=== PATIENT | male | born 1940 | race Caucasian/White ===

== ENCOUNTER 2020-11-25 13:29 | Inpatient (IN) | payer MEDICARE, OTHER, SELFPAY ==
[2020-11-25 14:33] VITALS: BP 120/71; PULSE 94; RESP 16; TEMP 36.7; O2SAT 100; BMI 19.8
--- NOTE | 2020-11-25 15:23 | PC.NURSE ---
Report received. Pt in bathroom at current, giving urine sample. Calm and cooperative.
[2020-11-25 15:46] LABS: Glucose Urine UA NEG (NEG); Leukocyte Esterase Urine NEG (NEG); Nitrite Urine NEG (NEG); Specific Gravity - Urine 1.025 (1.005-1.025); Urine Blood NEG (NEG); Urine Ketones NEG (NEG); Urine Protein NEG (NEG-TRACE)
[2020-11-25 15:49] LABS: Appearance Urine CLEAR; Color Urine YELLOW
--- NOTE | 2020-11-25 15:56 | ED.PSYCH ---
HPI - Psych General Chief Complaint: Psychiatric Symptoms Stated Complaint: crisis Time Seen by Provider: 11/25/20 15:12 Source: patient Mode of arrival: ambulatory Limitations: no limitations History of Present Illness HPI Narrative: Patient presents to ED for direct admit to [facility] for depression. states patient has been more depressed and anxious. denies patient having suicidal ideation. states patient is compliant with his psych meds. Related Data Home Medications Medication Instructions Recorded Confirmed docusate sodium [Stool Softener] 1 cap PO BID PRN 11/25/20 11/25/20 lorazepam 1 tab PO BID PRN 11/25/20 11/25/20 lurasidone [Latuda] 1 tab PO DAILY 11/25/20 11/25/20 mirtazapine 1 tab PO BEDTIME 11/25/20 11/25/20 nintedanib [Ofev] 150 mg PO BID 11/25/20 11/25/20 ondansetron 1 tab PO Q8H PRN 11/25/20 11/25/20 quetiapine 37.5 mg PO BEDTIME 11/25/20 11/25/20 Allergies Allergy/AdvReac Type Severity Reaction Status Date / Time Sulfa (Sulfonamide Allergy Unknown UNKNOWN Unverified 05/28/20 19:34 Antibiotics) [SULFA (SULFONAMIDE ANTIBIOTICS)] Review of Systems Review of Systems: Yes all other systems are reviewed and are negative Constitutional: Constitutional: Reports as per HPI and Reports no additional constitutional complaints Eyes: Eyes: Reports as per HPI and Reports no additional eye complaints ENT: Reports system reviewed and no additional complaints, except as documented and Reports as per HPI Cardiovascular: Cardiovascular: Reports as per HPI and Reports no additional cardiovascular complaints Respiratory: Respiratory: Reports as per HPI and Reports no additional respiratory complaints Gastrointestinal: Gastrointestinal: Reports as per HPI and Reports no additional gastrointestinal complaints Genitourinary: Genitourinary: Reports no additional male genitourinary complaints and Reports as per HPI Musculoskeletal: Musculoskeletal: Reports no additional musculoskeletal complaints and Reports as per HPI Neurologic: Reports system reviewed and no additional complaints, except as documented and Reports as per HPI Psychiatric: Psychiatric: Reports no additional psychiatric complaints and Reports as per HPI PMF Past Medical History Medical History (Updated 11/25/20 @ 20:35 by HENOK Velasco) Anemia Anxiety Bronchiectasis Cerebrovascular disease CHF (congestive heart failure) Chronic hyponatremia CKD (chronic kidney disease) stage 3, GFR 30-59 ml/min Degenerative arthritis Depression History of electroconvulsive therapy Hx of bladder cancer Hydrocele Pulmonary fibrosis Social History Social History Household Members: Spouse Housing: Apartment Do you presently have visiting nurse or other home services: Yes Smoking Status: Never smoker Second Hand Smoke Exposure: No Use of substances other than those prescribed or required for medical reasons: No Substance Use Type: Marijuana Substance Use Type Other:: Medicinal marijuana approximately six months ago. Last Used Substance Other:: Six months ago. Currently Displaying Signs/Symptoms of Drug Intoxication Withdrawal: No Any prior treatment program specific to substance use: No Have you been hit, kicked, punched, or otherwise hurt by someone within the past year? If so, by whom?: No Do you feel safe in your current relationship?: Yes Is there a partner from a previous relationship who is making you feel unsafe now?: No Are you made to feel afraid or neglected: No Advance Directives: Yes Advance Directives Information Provided: Yes Advance Directives on File: No Do you have thoughts of harming others: None Do you have a plan to hurt others: No Plan Recently lost weight without trying: Yes Physical Exam Vital Signs: Vital Signs: Last Vital Signs Temp 97.7 F 11/25/20 21:16 Pulse 71 11/25/20 21:16 Resp 17 11/25/20 21:16 BP 124/71 11/25/20 21:16 Pulse Ox 97 11/25/20 21:16 Body Mass Index 19.8 Const: General: cooperative, healthy appearing, comfortable, no acute distress, well developed, alert, awake and Physically active Orientation/consciousness: patient oriented x3 HENMT: Head: Yes normal to inspection, Yes No palpable skull fracture present, Yes normocephalic, Yes atraumatic and No abrasion Eyes: General: appearance normal, both eyes and all related structures Neck: Neck: Yes normal visual inspection, Yes full ROM, Yes no lymphadenopathy, Yes no meningeal signs, Yes trachea midline, Yes supple and No tender Chest: Chest palpation & inspection: normal inspection of the chest and normal palpation of entire chest wall Resp: Effort & Inspection: normal respiratory effort and able to speak in complete sentences Auscultation: clear to auscultation bilaterally Cardio: Jugular venous distension: no JVD Heart sounds: S1 normal heart sound present and S2 normal heart sound present GI: Inspection: Yes normal to inspection and No abdominal wall ecchymosis Palpation (GI): Soft to palpation, not firm, nontender, no guarding and not rigid : General: Yes CVA tenderness and Yes no CVA tenderness Back/Spine/Pelvis: Back: no CVA tenderness, CVA tenderness and No back tenderness Skin: General skin exam: no rashes or lesions noted and elasticity normal Neuro: General: patient oriented x3, no meningeal signs and CN's II-XI intact bilaterally Cranial nerves: Yes CN's II-XII intact bilaterally Extrem: General: Yes normal to inspection and Yes full ROM Psych: Other: Patient is depressed. Appearance: grossly normal, well kempt and not disheveled Course Course Course Narrative: Patient sleeping comfortably in the bed. Will do labs. Reevaluation(s) Reevaluation #1: Patient EKG negative for pain to indicate severe hyperkalemia. Potassium 5.3 but creatinine is normal. Most likely lab error. With Dr. Morin who agrees potassium 5.3 does not need to be treated due to normal creatinine. Patient to be accepted to psychiatry. EKG normal sinus Time: 22:01 [facility] - Psych Lab Data Result diagrams: 11/25/20 15:43 11/25/20 15:42 Labs: Lab Results 11/25/20 11/25/20 11/25/20 Range/Units 15:35 15:42 15:42 WBC (4.8-10.8) X10*3/uL RBC (4.60-5.80) X10*6/uL Hgb (14.0-18.0) g/dl Hct (42-52) % MCV (80-98) fL MCH (27.0-33.0) pg MCHC (31.0-36.0) g/dl RDW (11.0-16.0) % Plt Count (160-400) X10*3/uL MPV (9.4-12.4) fL Immature Gran % (Auto) (0.0-0.4) % Neut % (Auto) (45-73) % Lymph % (Auto) (20-40) % [place] % (Auto) (2-11) % Eos % (Auto) (0-4) % Baso % (Auto) (0-2) % Lymph # (Auto) (1.2-4.9) X10*3/uL [place] # (Auto) (0.1-1.2) X10*3/uL Eos # (Auto) (0.0-0.4) X10*3/uL Baso # (Auto) (0.0-0.2) X10*3/uL Abs Immat Gran (auto) (0.00-0.03) X10*3/uL Absolute Neuts (auto) (2.0-8.3) X10*3/uL Absolute Nucleated RBC (0.0-0.012) X10*3/uL Nucleated RBC % (auto) (0.0-0.2) /100WBC Sodium 133 L (135-145) mmol/L Potassium 5.3 H (3.3-5.1) mmol/L Chloride 99 (96-108) mmol/L Carbon Dioxide 26 (22-29) mmol/L Anion Gap 13 (12-20) BUN 29 H (9-16) mg/dL Creatinine 1.38 (0.5-1.4) mg/dL Estim Creat Clear Calc 36.2 Estimated GFR 50 Random Glucose 103 (60-115) mg/dL Calcium 9.4 (8.4-10.2) mg/dL Total Bilirubin 0.6 (0.0-1.0) mg/dL Direct Bilirubin 0.2 (0.0-0.5) mg/dL AST 24 (5-37) U/L ALT 16 (0-40) U/L Alkaline Phosphatase 91 (39-117) U/L Total Protein 7.5 (6.5-8.0) g/dL Albumin 3.8 (3.5-5.0) g/dL Urine Color YELLOW Urine Appearance CLEAR Urine pH 6.0 (5.0-8.0) Ur Specific [place] 1.025 (1.005-1.025) Urine Protein NEG (NEG-TRACE) MG/DL Urine Glucose (UA) NEG (NEG) MG/DL Urine Ketones NEG (NEG) MG/DL Urine Blood NEG (NEG) Urine Nitrite NEG (NEG) Ur Leukocyte Esterase NEG (NEG) Ethyl Alcohol < 10 mg/dL COVID-19 ([facility]) (Negative) COVID-19 Clin Com 11/25/20 11/25/20 Range/Units 15:43 16:37 WBC 9.1 (4.8-10.8) X10*3/uL RBC 4.13 L (4.60-5.80) X10*6/uL Hgb 13.1 L (14.0-18.0) g/dl Hct 39.0 L (42-52) % MCV 94.4 (80-98) fL MCH 31.7 (27.0-33.0) pg MCHC 33.6 (31.0-36.0) g/dl RDW 13.9 (11.0-16.0) % Plt Count 211 (160-400) X10*3/uL MPV 11.0 (9.4-12.4) fL Immature Gran % (Auto) 0.3 (0.0-0.4) % Neut % (Auto) 56.1 (45-73) % Lymph % (Auto) 30.1 (20-40) % [place] % (Auto) 9.1 (2-11) % Eos % (Auto) 3.6 (0-4) % Baso % (Auto) 0.8 (0-2) % Lymph # (Auto) 2.7 (1.2-4.9) X10*3/uL [place] # (Auto) 0.8 (0.1-1.2) X10*3/uL Eos # (Auto) 0.3 (0.0-0.4) X10*3/uL Baso # (Auto) 0.1 (0.0-0.2) X10*3/uL Abs Immat Gran (auto) 0.03 (0.00-0.03) X10*3/uL Absolute Neuts (auto) 5.1 (2.0-8.3) X10*3/uL Absolute Nucleated RBC 0.000 (0.0-0.012) X10*3/uL Nucleated RBC % (auto) 0.0 (0.0-0.2) /100WBC Sodium (135-145) mmol/L Potassium (3.3-5.1) mmol/L Chloride (96-108) mmol/L Carbon Dioxide (22-29) mmol/L Anion Gap (12-20) BUN (9-16) mg/dL Creatinine (0.5-1.4) mg/dL Estim Creat Clear Calc Estimated GFR Random Glucose (60-115) mg/dL Calcium (8.4-10.2) mg/dL Total Bilirubin (0.0-1.0) mg/dL Direct Bilirubin (0.0-0.5) mg/dL AST (5-37) U/L ALT (0-40) U/L Alkaline Phosphatase (39-117) U/L Total Protein (6.5-8.0) g/dL Albumin (3.5-5.0) g/dL Urine Color Urine Appearance Urine pH (5.0-8.0) Ur Specific [place] (1.005-1.025) Urine Protein (NEG-TRACE) MG/DL Urine Glucose (UA) (NEG) MG/DL Urine Ketones (NEG) MG/DL Urine Blood (NEG) Urine Nitrite (NEG) Ur Leukocyte Esterase (NEG) Ethyl Alcohol mg/dL COVID-19 ([facility]) Negative (Negative) COVID-19 Clin Com See Note Discharge Plan Discharge Clinical Impression: Bipolar disorder Patient Disposition: Admitted As Inpatient Interventions: Admission Worksheet (ED) Last Done: 11/25/20 21:30 Discharge Date/Time: 11/25/20 21:31
[2020-11-25 16:00] LABS: MANUAL DIFF FLAG NO
[2020-11-25 16:02] LABS: Basophils Absolute Auto 0.1 X10*3/uL (0.0-0.2); Basophils Percent Auto 0.8 % (0-2); Eosinophils Absolute Auto 0.3 X10*3/uL (0.0-0.4); Eosinophils Percent Auto 3.6 % (0-4); Hemoglobin 13.1 g/dl (14.0-18.0); Imm Gran Abs Auto 0.03 X10*3/uL (0.00-0.03); Imm Gran Pct Auto 0.3 % (0.0-0.4); Lymphocytes Absolute Auto 2.7 X10*3/uL (1.2-4.9); Lymphocytes Percent Auto 30.1 % (20-40); Mean Corpuscular HGB Conc 33.6 g/dl (31.0-36.0); Mean Corpuscular Hemoglobin 31.7 pg (27.0-33.0); Mean Corpuscular Volume 94.4 fL (80-98); Monocytes Absolute Auto 0.8 X10*3/uL (0.1-1.2); Monocytes Percent Auto 9.1 % (2-11); Neutrophils Absolute Auto 5.1 X10*3/uL (2.0-8.3); Neutrophils Percent Auto 56.1 % (45-73); Platelet Count 211 X10*3/uL (160-400); Red Blood Count 4.13 X10*6/uL (4.60-5.80); Red Cell Distribution Width 13.9 % (11.0-16.0); White Blood Count 9.1 X10*3/uL (4.8-10.8)
[2020-11-25 16:31] LABS: Ethanol < 10 mg/dL
[2020-11-25 16:35] LABS: Alanine Aminotransferase 16 U/L (0-40); Albumin Level 3.8 g/dL (3.5-5.0); Alkaline Phosphatase 91 U/L (39-117); Anion Gap 13 (12-20); Aspartate Amino Transferase 24 U/L (5-37); Bilirubin Direct 0.2 mg/dL (0.0-0.5); Bilirubin Total 0.6 mg/dL (0.0-1.0); Blood Urea Nitrogen 29 mg/dL (9-16); Calcium 9.4 mg/dL (8.4-10.2); Carbon Dioxide 26 mmol/L (22-29); Chloride 99 mmol/L (96-108); Creatinine Clr Calc Pharmacy 36.2; Estimated Glomerular Filt Rate 50; Glucose Random 103 mg/dL (60-115); Potassium 5.3 mmol/L (3.3-5.1); Sodium 133 mmol/L (135-145); Total Protein 7.5 g/dL (6.5-8.0)
[2020-11-25 17:57] LABS: COVID-19 Test Negative (Negative)
[2020-11-25 18:27] VITALS: BP 106/61; PULSE 71; RESP 16; TEMP 36.9; O2SAT 95
--- NOTE | 2020-11-25 18:51 | ECG_ITS ---
Test Reason : MEDICAL CLEAR Blood Pressure : / mmHG Vent. Rate : 069 BPM Atrial Rate : 069 BPM P-R Int : 168 ms QRS Dur : 090 ms QT Int : 392 ms P-R-T Axes : 050 040 029 degrees QTc Int : 420 ms Normal sinus rhythm Possible Left atrial enlargement Borderline ECG When compared with ECG of 31-OCT-2018 08:14, No significant change was found Referred By: Blane Chowdhury Electronically Signed By:JOSE RAMON DAMON MD
--- NOTE | 2020-11-25 20:37 | PC.NURSE ---
Patient in bed resting quietly, at bedside, m5 admission approved, patient and aware, will continue to monitor.
[2020-11-25 21:16] VITALS: BP 124/71; PULSE 71; RESP 17; TEMP 36.5; O2SAT 97
[2020-11-25] MEDS: QUEtiapine Fumarate 25 MG TABLET 37.5 MG PO ×2 (23:03→23:04)
[2020-11-25] MEDS: Mirtazapine 15 MG TABLET PO (23:04)
[2020-11-25] MEDS: LORazepam 0.5 MG TABLET PO (23:04)
--- NOTE | 2020-11-25 23:10 | PC.ADMIT ---
Sai presented to the ED at [facility] with increased depression, anxiety, hopelessness, and passive suicidal ideation. Pt has a medical history of interstitial fibrosis, which is causing him to have shortness of breath with exertion. He stated that this has limited his activity and contributed to his recent mental health issues. Pt has not been able to attend outpatient ECT due to anxiety and depression. He reports decreased appetite and weight loss of 10 to 15 pounds recently. Pt stated he became dizzy and fell approximately six weeks ago. Pt was able to engage with this commercial real estate underwriter, complete admission paperwork, and take HS medications. He denies active suicidal ideation on the unit at this time.
[2020-11-26 06:05] VITALS: BP 118/67; PULSE 72; RESP 18; TEMP 36.5; O2SAT 94
[2020-11-26 08:24] LABS: Alanine Aminotransferase 17 U/L (0-40); Albumin Level 3.9 g/dL (3.5-5.0); Alkaline Phosphatase 95 U/L (39-117); Anion Gap 11 (12-20); Aspartate Amino Transferase 22 U/L (5-37); Bilirubin Total 0.9 mg/dL (0.0-1.0); Blood Urea Nitrogen 29 mg/dL (9-16); Calcium 9.5 mg/dL (8.4-10.2); Carbon Dioxide 29 mmol/L (22-29); Chloride 98 mmol/L (96-108); Cholesterol 216 mg/dL; Creatinine Clr Calc Pharmacy 33.3; Estimated Glomerular Filt Rate 45; Glucose Fasting 100 mg/dL (60-99); HDL Cholesterol 51 mg/dL; LDL Cholesterol Calculated 148 mg/dl; Potassium 5.1 mmol/L (3.3-5.1); Sodium 133 mmol/L (135-145); Total Protein 7.5 g/dL (6.5-8.0); Triglycerides 87 mg/dL
[2020-11-26 08:47] LABS: Thyroid Stimulating Hormone 2.21 uIU/mL (0.32-4.0)
[2020-11-26] MEDS: Lurasidone HCl 20 MG TABLET 10 MG PO (09:08)
[2020-11-26 10:13] LABS: Vitamin B12 773 pg/mL (200-900)
[2020-11-26 13:00] VITALS: BP 106/59; PULSE 91; TEMP 35.9
--- NOTE | 2020-11-26 14:40 | MHC.CLN ---
RE: CONSULT HT 68 WT 130# IBW 154#+/-10% UBW 144# PT REPORTS 10-15# WT LOSS PHYSICAL THERAPIST CENTER MANAGER ENN: 1800KCALS, 60G PROTEIN, 1800CC WATER LABS: NA133, BUN 29, CREAT 1.5, ALBUMIN WNL MEDS NOTED REMERON IN PLACE -MAY INCREASE APPETITE DIET RX: REGULAR-APPROPRIATE PT REPORTS POOR PO PHYSICAL THERAPIST CENTER MANAGER RECOMMEND STARTING ENSURE TID TO INCREASE KCALS MONITOR PO INTAKE
--- NOTE | 2020-11-26 16:42 | PM.IMCN ---
History of Present Illness Data of Consult Service Date: 11/26/20 Requesting physician: Blane Chowdhury Primary Care Provider: Mary Cyr NP HPI Reason for consult: Evaluation for ECT This is a 80-year-old male with a history of bipolar depression admitted to for ECT. Patient reports receiving ECT in the past without incident. He has no history cardiac disease. He does have a history of ILD and sometime has associated dyspnea with activity. He does not do much activity at home. On admission, labwork was significant for potassium of 5.3. This has improved to 5.1 today, although creatinine has increased to 1.5. Review of Systems Review of Systems: Yes all other systems are reviewed and are negative Constitutional: Constitutional: Denies chills and Denies fever(s) Cardiovascular: Cardiovascular: Denies chest pain Respiratory: Respiratory: Denies cough Gastrointestinal: Gastrointestinal: Denies abdominal pain [facility] Medical History (Updated 11/26/20 @ 16:54 by HENOK Mitchell) Anemia Anxiety Bronchiectasis Cerebrovascular disease CHF (congestive heart failure) Chronic hyponatremia CKD (chronic kidney disease) stage 3, GFR 30-59 ml/min Degenerative arthritis Depression History of electroconvulsive therapy Hx of bladder cancer Hydrocele Pulmonary fibrosis Functional capacity: independent ambulation Family History (Updated 11/26/20 @ 16:50 by HENOK Mitchell) Father Colon cancer Family history: reviewed and not pertinent Surgical History (Updated 11/26/20 @ 16:51 by HENOK Mitchell) History of bladder surgery Social History Household Members: Spouse Housing: Apartment Do you presently have visiting nurse or other home services: Yes Smoking Status: Never smoker Second Hand Smoke Exposure: No Use of substances other than those prescribed or required for medical reasons: No Substance Use Type: Marijuana Substance Use Type Other:: Medicinal marijuana approximately six months ago. Last Used Substance Other:: Six months ago. Currently Displaying Signs/Symptoms of Drug Intoxication Withdrawal: No Any prior treatment program specific to substance use: No Have you been hit, kicked, punched, or otherwise hurt by someone within the past year? If so, by whom?: No Do you feel safe in your current relationship?: Yes Is there a partner from a previous relationship who is making you feel unsafe now?: No Are you made to feel afraid or neglected: No Advance Directives: Yes Advance Directives Information Provided: Yes Advance Directives on File: No Do you have thoughts of harming others: None Do you have a plan to hurt others: No Plan Recently lost weight without trying: Yes service: No Sexual orientation: Straight/Heterosexual Meds Allergies Allergy/AdvReac Type Severity Reaction Status Date / Time Sulfa (Sulfonamide Allergy Unknown UNKNOWN Unverified 05/28/20 19:34 Antibiotics) [SULFA (SULFONAMIDE ANTIBIOTICS)] Active Medications: Current Medications Generic Name Dose Route Start Last Admin Trade Name Freq PRN Reason Stop Dose Admin Acetaminophen 650 mg 11/25/20 22:48 Acetaminophen 325 Mg Tablet PO Q6H PRN Headache/Pain Mild Scale (1-3) Al Hydroxide/Mg Hydroxide 30 ml 11/25/20 22:48 Magnesium Hydrox/Alum Hydrox 30 Ml Oral.Susp PO Q6H PRN Heartburn/Nausea Hydroxyzine HCl 25 mg 11/25/20 22:48 Hydroxyzine Hcl 25 Mg Tablet PO BEDTIME PRN Anxiety Lorazepam 0.5 mg 11/26/20 21:00 11/25/20 23:04 Lorazepam 0.5 Mg Tablet PO 0.5 mg BEDTIME DOMINICK Administration Lorazepam 0.5 mg 11/25/20 22:54 Lorazepam 0.5 Mg Tablet PO DAILY PRN Anxiety Lurasidone HCl 10 mg 11/26/20 09:00 11/26/20 09:08 Lurasidone Hcl 20 Mg Tablet PO 10 mg DAILY DOMINICK Administration Magnesium Hydroxide 30 ml 11/25/20 22:48 Milk Of Magnesia 30 Ml Oral.Susp PO DAILY PRN Constipation Mirtazapine 15 mg 11/25/20 22:48 11/25/20 23:04 Mirtazapine 15 Mg Tablet PO 15 mg BEDTIME DOMINICK Administration Non-Formulary Medication 150 mg 11/25/20 22:48 Nintedanib [Ofev] PO BID DOMINICK Ondansetron HCl 4 mg 11/25/20 22:48 Ondansetron Odt 4 Mg Tab.Rapdis TRANSLINGU Q8H PRN nausea/vomiting Quetiapine Fumarate 37.5 mg 11/25/20 22:48 11/25/20 23:04 Quetiapine Fumarate 25 Mg Tablet PO 37.5 mg BEDTIME DOMINICK Administration Home Medications Medication Instructions Recorded Confirmed Last Taken Type docusate sodium [Stool Softener] 1 cap PO BID PRN 11/25/20 11/25/20 11/25/20 History lorazepam 1 tab PO BID PRN 11/25/20 11/25/20 11/25/20 History lurasidone [Latuda] 1 tab PO DAILY 11/25/20 11/25/20 11/25/20 History mirtazapine 1 tab PO BEDTIME 11/25/20 11/25/20 11/24/20 History nintedanib [Ofev] 150 mg PO BID 11/25/20 11/25/20 11/25/20 History ondansetron 1 tab PO Q8H PRN 11/25/20 11/25/20 Unknown History quetiapine 37.5 mg PO BEDTIME 11/25/20 11/25/20 11/24/20 History Physical Exam Vital Signs and Narrative: Vital Signs: Last Vital Signs Temp 97.7 F 11/26/20 06:05 Pulse 72 11/26/20 06:05 Resp 18 11/26/20 06:05 BP 118/67 11/26/20 06:05 Pulse Ox 94 11/26/20 06:05 Body Mass Index 19.8 Const: Nutritional Appearance: well nourished Orientation/consciousness: patient oriented x3 HENMT: Head: Yes normocephalic and Yes atraumatic Eyes: Sclerae: sclerae normal Chest: Chest palpation & inspection: normal inspection of the chest Resp: Effort & Inspection: normal respiratory effort and no respiratory distress Auscultation: clear to auscultation bilaterally Cardio: Rate: regular rate Rhythm: regular rhythm GI: Palpation (GI): Soft to palpation and nontender Skin: General skin exam: no rashes or lesions noted Neuro: General: patient oriented x3 Cranial nerves: Yes CN's II-XII intact bilaterally and Yes Bilaterally intact EOM present Extrem: General: Yes normal to inspection Results Labs CBC and Chem 7: 11/25/20 15:43 11/26/20 07:42 Labs: Laboratory Results - last 24 hr 11/25/20 11/26/20 11/26/20 16:37 07:42 07:42 Anion Gap 11 L Estim Creat Clear Calc 33.3 Estimated GFR 45 Fasting Glucose 100 H Calcium 9.5 Total Bilirubin 0.9 AST 22 ALT 17 Alkaline Phosphatase 95 Total Protein 7.5 Albumin 3.9 Triglycerides 87 Cholesterol 216 LDL Cholesterol, Calc 148 HDL Cholesterol 51 Vitamin B12 773 TSH 2.21 COVID-19 ([facility]) Negative COVID-19 Clin Com See Note Assessment and Plan (1) CKD (chronic kidney disease) stage 3, GFR 30-59 ml/min: Status: Acute This is a 80 year old male with a history of CKD3, ILD, bipolar depression, bladder tumor s/p resection, admitted to for ECT treatments in the setting of worsening depression. The patient has h/o ILD on nintedanib. denies heart disease, chest pain. has had ECT without issue in the past. EKG without ischemic changes. There is no obvious contraindication to ECT at this time. Thank you for allowing us to participate in the care of this patient. This case was discussed with Dr. Marie.
[2020-11-26] MEDS: LORazepam 0.5 MG TABLET PO ×2 (16:58→20:04)
--- NOTE | 2020-11-26 17:15 | HO.PSYADMNOT ---
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 He is failed multiple treatments including Lamictal Vraylar mirtazapine Wellbutrin became suicidally agitated Depakote Seroquel and Trintellix which cause severe nausea and lack of interest in food. Patient has become increasingly despondent difficulty getting out of bed taking care of his ADLs he was scheduled for outpatient ECT but was unable to get up the energy to do it. He has been having thoughts that he would be better off this is been going on for an extended period of time Past Psychiatric History: History of 3 prior psychiatric hospitalizations the last at [facility] he did have a course of ECT and briefly did maintenance. ECT was quite helpful but the patient had difficulty with side effects of nausea and headache. He has also failed a trial of ketamine Medical Evaluation Reviewed: Hospitalist Criselda Pending Patient with history of pulmonary fibrosis generally stable history of bladder cancer treated with infusions [facility] Medical History (Updated 11/29/20 @ 16:48 by Blane Chowdhury MD) Anemia Anxiety Bronchiectasis Cerebrovascular disease CHF (congestive heart failure) Chronic hyponatremia CKD (chronic kidney disease) stage 3, GFR 30-59 ml/min Degenerative arthritis Depression History of electroconvulsive therapy Hx of bladder cancer Hydrocele Pulmonary fibrosis Pulmonary fibrosis Surgical History History of bladder surgery Family History: Reportedly no history of bipolar disorder Social History: Patient is has children with whom he is close with 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 Substance History: None Trauma History: Trauma of being increasingly isolated and not responding to treatment over the past year Diagnostics Vital Signs (24Hr): Vital Signs - 24 hr 11/25/20 18:27 11/25/20 21:16 11/26/20 06:05 Temperature 98.4 F 97.7 F 97.7 F Pulse Rate 71 71 72 Respiratory Rate 16 17 18 Blood Pressure 106/61 124/71 118/67 Pulse Oximetry 95 97 94 11/26/20 13:00 Temperature 96.7 F L Pulse Rate 91 Respiratory Rate Blood Pressure 106/59 L Pulse Oximetry Body Mass Index 19.8 Labs Results: 11/28/20 14:38 11/28/20 14:38 Labs: Laboratory Results - last 48 hr 11/25/20 11/25/20 11/25/20 15:35 15:42 15:42 WBC RBC Hgb Hct MCV MCH MCHC RDW Plt Count MPV Immature Gran % (Auto) Neut % (Auto) Lymph % (Auto) [place] % (Auto) Eos % (Auto) Baso % (Auto) Lymph # (Auto) [place] # (Auto) Eos # (Auto) Baso # (Auto) Abs Immat Gran (auto) Absolute Neuts (auto) Absolute Nucleated RBC Nucleated RBC % (auto) Sodium 133 L Potassium 5.3 H Chloride 99 Carbon Dioxide 26 Anion Gap 13 BUN 29 H Creatinine 1.38 Estim Creat Clear Calc 36.2 Estimated GFR 50 Random Glucose 103 Fasting Glucose Calcium 9.4 Total Bilirubin 0.6 Direct Bilirubin 0.2 AST 24 ALT 16 Alkaline Phosphatase 91 Total Protein 7.5 Albumin 3.8 Triglycerides Cholesterol LDL Cholesterol, Calc HDL Cholesterol Vitamin B12 TSH Urine Color YELLOW Urine Appearance CLEAR Urine pH 6.0 Ur Specific [place] 1.025 Urine Protein NEG Urine Glucose (UA) NEG Urine Ketones NEG Urine Blood NEG Urine Nitrite NEG Ur Leukocyte Esterase NEG Ethyl Alcohol < 10 COVID-19 ([facility]) COVID-19 Clin Com 11/25/20 11/25/20 11/26/20 15:43 16:37 07:42 WBC 9.1 RBC 4.13 L Hgb 13.1 L Hct 39.0 L MCV 94.4 MCH 31.7 MCHC 33.6 RDW 13.9 Plt Count 211 MPV 11.0 Immature Gran % (Auto) 0.3 Neut % (Auto) 56.1 Lymph % (Auto) 30.1 [place] % (Auto) 9.1 Eos % (Auto) 3.6 Baso % (Auto) 0.8 Lymph # (Auto) 2.7 [place] # (Auto) 0.8 Eos # (Auto) 0.3 Baso # (Auto) 0.1 Abs Immat Gran (auto) 0.03 Absolute Neuts (auto) 5.1 Absolute Nucleated RBC 0.000 Nucleated RBC % (auto) 0.0 Sodium 133 L Potassium 5.1 Chloride 98 Carbon Dioxide 29 Anion Gap 11 L BUN 29 H Creatinine 1.50 H Estim Creat Clear Calc 33.3 Estimated GFR 45 Random Glucose Fasting Glucose 100 H Calcium 9.5 Total Bilirubin 0.9 Direct Bilirubin AST 22 ALT 17 Alkaline Phosphatase 95 Total Protein 7.5 Albumin 3.9 Triglycerides 87 Cholesterol 216 LDL Cholesterol, Calc 148 HDL Cholesterol 51 Vitamin B12 TSH 2.21 Urine Color Urine Appearance Urine pH Ur Specific [place] Urine Protein Urine Glucose (UA) Urine Ketones Urine Blood Urine Nitrite Ur Leukocyte Esterase Ethyl Alcohol COVID-19 ([facility]) Negative COVID-19 Clin Com See Note 11/26/20 07:42 WBC RBC Hgb Hct MCV MCH MCHC RDW Plt Count MPV Immature Gran % (Auto) Neut % (Auto) Lymph % (Auto) [place] % (Auto) Eos % (Auto) Baso % (Auto) Lymph # (Auto) [place] # (Auto) Eos # (Auto) Baso # (Auto) Abs Immat Gran (auto) Absolute Neuts (auto) Absolute Nucleated RBC Nucleated RBC % (auto) Sodium Potassium Chloride Carbon Dioxide Anion Gap BUN Creatinine Estim Creat Clear Calc Estimated GFR Random Glucose Fasting Glucose Calcium Total Bilirubin Direct Bilirubin AST ALT Alkaline Phosphatase Total Protein Albumin Triglycerides Cholesterol LDL Cholesterol, Calc HDL Cholesterol Vitamin B12 773 TSH Urine Color Urine Appearance Urine pH Ur Specific [place] Urine Protein Urine Glucose (UA) Urine Ketones Urine Blood Urine Nitrite Ur Leukocyte Esterase Ethyl Alcohol COVID-19 ([facility]) COVID-19 Clin Com Meds/Allergies Meds Home Medications Acetaminophen (Acetaminophen 325 Mg Tablet) 650 mg PO Q6H PRN PRN Reason: Headache/Pain Mild Scale (1-3) Last Admin: 11/29/20 15:51 Dose: 650 mg Documented by: Al Hydroxide/Mg Hydroxide (Magnesium Hydrox/Alum Hydrox 30 Ml Oral.Susp) 30 ml PO Q6H PRN PRN Reason: Heartburn/Nausea Last Admin: 11/28/20 09:26 Dose: 30 ml Documented by: Docusate Sodium (Docusate Sodium 100 Mg Capsule) 100 mg PO BID REPLACED BY [facility] Last Admin: 11/29/20 08:52 Dose: 100 mg Documented by: Famotidine (Famotidine 20 Mg Tablet) 20 mg PO BID REPLACED BY [facility] Last Admin: 11/29/20 08:52 Dose: 20 mg Documented by: Hydroxyzine HCl (Hydroxyzine Hcl 25 Mg Tablet) 25 mg PO BEDTIME PRN PRN Reason: Anxiety Promethazine HCl 6.25 mg/ (Sodium Chloride) 50.25 mls @ 201 mls/hr IV ONCE PRN PRN Reason: Nausea and Vomiting Lorazepam (Lorazepam 0.5 Mg Tablet) 0.5 mg PO BEDTIME REPLACED BY [facility] Last Admin: 11/28/20 21:27 Dose: 0.5 mg Documented by: Lorazepam (Lorazepam 0.5 Mg Tablet) 0.5 mg PO DAILY PRN PRN Reason: Anxiety Last Admin: 11/27/20 16:42 Dose: 0.5 mg Documented by: Lurasidone HCl (Lurasidone Hcl 20 Mg Tablet) 10 mg PO DAILY REPLACED BY [facility] Last Admin: 11/29/20 08:52 Dose: 10 mg Documented by: Magnesium Hydroxide (Milk Of Magnesia 30 Ml Oral.Susp) 30 ml PO DAILY PRN PRN Reason: Constipation Mirtazapine (Mirtazapine 15 Mg Tablet) 15 mg PO BEDTIME REPLACED BY [facility] Last Admin: 11/28/20 21:25 Dose: 15 mg Documented by: Pt Own Med: Nintedanib (Ofev) 150mg Cap 1 each PO Q12H REPLACED BY [facility] Last Admin: 11/29/20 08:54 Dose: 1 each Documented by: Ondansetron HCl (Ondansetron Odt 4 Mg Tab.Rapdis) 4 mg TRANSLINGU Q8H PRN PRN Reason: nausea/vomiting Last Admin: 11/27/20 13:36 Dose: 4 mg Documented by: Quetiapine Fumarate (Quetiapine Fumarate 25 Mg Tablet) 37.5 mg PO BEDTIME REPLACED BY [facility] Last Admin: 11/28/20 21:25 Dose: 37.5 mg Documented by: Quetiapine Fumarate (Quetiapine Fumarate 25 Mg Tablet) 12.5 mg PO BID REPLACED BY [facility] Last Admin: 11/29/20 08:53 Dose: 12.5 mg Documented by: Allergies Allergies Allergy/AdvReac Type Severity Reaction Status Date / Time Sulfa (Sulfonamide Allergy Unknown UNKNOWN Unverified 05/28/20 19:34 Antibiotics) [SULFA (SULFONAMIDE ANTIBIOTICS)] zoster vaccine live Allergy Hives Verified 11/27/20 18:20 Mental Status Exam Mental Status Exam Patient Appearance: Disheveled Patient Orientation: Person, Place and Situation Level of Consciousness: Awake Patient Behavior: Appropriate, Cooperative and Passive Mood Description: Withdrawn and Depressed Affect Description: Depressed and Blunted Speech Pattern: Clear and Monotone Memory Description: Episodic Impaired Delusions: Not Present Thought Process: Rumination and Goal Oriented Thought Content: positive for [place], positive for Suicidal Ideation (Passive SI feels connected to family and but essentially nothing to live for) and negative for Homicidal Ideation Depressive Symptoms: Increased Anxiety, Diff. Making Decisions, Significant Weight Loss, Hopelessness, Thoughts of /Suicide, Loss of Energy and Difficulty Concentrating Assessment & Plan Assessment & Plan (1) Bipolar I disorder with depression, severe: Status: Acute Code(s): F31.4 - Bipolar disorder, current episode depressed, severe, without psychotic features Assessment and Plan: Patient admitted for course of ECT for treatment resistant depression with life-threatening lack of functioning eating despondent hopeless helpless he has responded to course of ECT previously risks benefits and alternatives reviewed with patient and his medical evaluation pre ECT he was recently determined by his outpatient turns to be stable for treatment despite pulmonary fibrosis concerns (2) Pulmonary fibrosis: Status: Acute Code(s): J84.10 - Pulmonary fibrosis, unspecified Patient educated on: diagnosis, medication risk/benefits and ECT Informed Consent: understands Reason for continued inpatient stay Substantial Risk for: harm to self, inability to function, rapid decompensation and med/psych decompensation
[2020-11-26 18:00] VITALS: BP 106/59; PULSE 91; TEMP 36.4
[2020-11-26] MEDS: Famotidine 20 MG TABLET PO (20:04)
[2020-11-26] MEDS: Docusate Sodium 100 MG CAPSULE PO (20:04)
[2020-11-26] MEDS: QUEtiapine Fumarate 25 MG TABLET 12.5 MG PO (20:04)
[2020-11-26] MEDS: Mirtazapine 15 MG TABLET PO (20:04)
[2020-11-26] MEDS: QUEtiapine Fumarate 25 MG TABLET 37.5 MG PO (20:05)
[2020-11-27] VITALS (10 sets, daily range): BP systolic 104–168; BP diastolic 61–94; PULSE 60–86; RESP 14–22; TEMP 36.2–37.1; O2SAT 93–100; BMI 19.7
--- NOTE | 2020-11-27 08:51 | HO.ANESPROP2 ---
HPI - Anesthesia Eval Consult details Narrative: 80 yo male patient with major depression, here for ECT PMFSH Active Problems Active Problems: All Active Problems (Updated 11/26/20 @ 16:54 by HENOK Mitchell) CKD (chronic kidney disease) stage 3, GFR 30-59 ml/min (Acute) Bipolar disorder (Acute) Past Medical History Medical History Anemia Anxiety Bronchiectasis Cerebrovascular disease CHF (congestive heart failure) Chronic hyponatremia CKD (chronic kidney disease) stage 3, GFR 30-59 ml/min Degenerative arthritis Depression History of electroconvulsive therapy Hx of bladder cancer Hydrocele Pulmonary fibrosis Functional capacity: independent ambulation Family History Family History Father Colon cancer Family history of problems with anesthesia: No Surgical History Surgical History History of bladder surgery History of Problems with Anesthesia: Yes (N&V) Social History Social History Household Members: Spouse Housing: Apartment Do you presently have visiting nurse or other home services: Yes Smoking Status: Never smoker Second Hand Smoke Exposure: No Use of substances other than those prescribed or required for medical reasons: No Substance Use Type: Marijuana Substance Use Type Other:: Medicinal marijuana approximately six months ago. Last Used Substance Other:: Six months ago. Currently Displaying Signs/Symptoms of Drug Intoxication Withdrawal: No Any prior treatment program specific to substance use: No Have you been hit, kicked, punched, or otherwise hurt by someone within the past year? If so, by whom?: No Do you feel safe in your current relationship?: Yes Is there a partner from a previous relationship who is making you feel unsafe now?: No Are you made to feel afraid or neglected: No Advance Directives: Yes Advance Directives Information Provided: Yes Advance Directives on File: No Advance Directives Date on File: 11/27/20 Do you have thoughts of harming others: None Do you have a plan to hurt others: No Plan Recently lost weight without trying: No service: No Sexual orientation: Straight/Heterosexual Meds Allergies Allergy/AdvReac Type Severity Reaction Status Date / Time Sulfa (Sulfonamide Allergy Unknown UNKNOWN Unverified 05/28/20 19:34 Antibiotics) [SULFA (SULFONAMIDE ANTIBIOTICS)] Active Medications: Current Medications Generic Name Dose Route Start Last Admin Trade Name Joaquín PRN Reason Stop Dose Admin Acetaminophen 650 mg 11/25/20 22:48 Acetaminophen 325 Mg Tablet PO Q6H PRN Headache/Pain Mild Scale (1-3) Al Hydroxide/Mg Hydroxide 30 ml 11/25/20 22:48 Magnesium Hydrox/Alum Hydrox 30 Ml Oral.Susp PO Q6H PRN Heartburn/Nausea Docusate Sodium 100 mg 11/26/20 21:00 11/26/20 20:04 Docusate Sodium 100 Mg Capsule PO 100 mg BID DOMINICK Administration Famotidine 20 mg 11/26/20 21:00 11/26/20 20:04 Famotidine 20 Mg Tablet PO 20 mg BID DOMINICK Administration Hydroxyzine HCl 25 mg 11/25/20 22:48 Hydroxyzine Hcl 25 Mg Tablet PO BEDTIME PRN Anxiety Lorazepam 0.5 mg 11/26/20 21:00 11/26/20 20:04 Lorazepam 0.5 Mg Tablet PO 0.5 mg BEDTIME DOMINICK Administration Lorazepam 0.5 mg 11/25/20 22:54 11/26/20 16:58 Lorazepam 0.5 Mg Tablet PO 0.5 mg DAILY PRN Administration Anxiety Lurasidone HCl 10 mg 11/26/20 09:00 11/26/20 09:08 Lurasidone Hcl 20 Mg Tablet PO 10 mg DAILY DOMINICK Administration Magnesium Hydroxide 30 ml 11/25/20 22:48 Milk Of Magnesia 30 Ml Oral.Susp PO DAILY PRN Constipation Mirtazapine 15 mg 11/25/20 22:48 11/26/20 20:04 Mirtazapine 15 Mg Tablet PO 15 mg BEDTIME DOMINICK Administration Pt Own Med: 1 each 11/27/20 08:00 Nintedanib (Ofev) PO 150mg Cap Q12H DOMINICK Ondansetron HCl 4 mg 11/25/20 22:48 Ondansetron Odt 4 Mg Tab.Rapdis TRANSLINGU Q8H PRN nausea/vomiting Quetiapine Fumarate 37.5 mg 11/25/20 22:48 11/26/20 20:05 Quetiapine Fumarate 25 Mg Tablet PO 37.5 mg BEDTIME DOMINICK Administration Quetiapine Fumarate 12.5 mg 11/26/20 21:00 11/26/20 20:04 Quetiapine Fumarate 25 Mg Tablet PO 12.5 mg BID DOMINICK Administration Home Medications Medication Instructions Recorded Confirmed Last Taken Type docusate sodium [Stool Softener] 1 cap PO BID PRN 11/25/20 11/25/20 11/25/20 History lorazepam 1 tab PO BID PRN 11/25/20 11/25/20 11/25/20 History lurasidone [Latuda] 1 tab PO DAILY 11/25/20 11/25/20 11/25/20 History mirtazapine 1 tab PO BEDTIME 11/25/20 11/25/20 11/24/20 History nintedanib [Ofev] 150 mg PO BID 11/25/20 11/25/20 11/25/20 History ondansetron 1 tab PO Q8H PRN 11/25/20 11/25/20 Unknown History quetiapine 37.5 mg PO BEDTIME 11/25/20 11/25/20 11/24/20 History Exam Exam Date and Time: November 27, 2020 0851 Height,Weight and Vital Signs: Height 5 ft 8 in Weight 58.9 kg Last Vital Signs Temp 97.1 F 11/27/20 08:40 Pulse 60 11/27/20 08:40 Resp 16 11/27/20 08:40 BP 125/72 11/27/20 08:40 Pulse Ox 99 11/27/20 08:40 Pertinent Lab Results Pertinent Lab Results: Laboratory Tests 11/25/20 11/25/20 11/25/20 15:35 15:42 15:42 WBC RBC Hgb Hct MCV MCH MCHC RDW Plt Count MPV Immature Gran % (Auto) Neut % (Auto) Lymph % (Auto) [place] % (Auto) Eos % (Auto) Baso % (Auto) Lymph # (Auto) [place] # (Auto) Eos # (Auto) Baso # (Auto) Abs Immat Gran (auto) Absolute Neuts (auto) Absolute Nucleated RBC Nucleated RBC % (auto) Sodium 133 L Potassium 5.3 H Chloride 99 Carbon Dioxide 26 Anion Gap 13 BUN 29 H Creatinine 1.38 Estim Creat Clear Calc 36.2 Estimated GFR 50 Random Glucose 103 Fasting Glucose Calcium 9.4 Total Bilirubin 0.6 Direct Bilirubin 0.2 AST 24 ALT 16 Alkaline Phosphatase 91 Total Protein 7.5 Albumin 3.8 Triglycerides Cholesterol LDL Cholesterol, Calc HDL Cholesterol Vitamin B12 TSH Urine Color YELLOW Urine Appearance CLEAR Urine pH 6.0 Ur Specific [place] 1.025 Urine Protein NEG Urine Glucose (UA) NEG Urine Ketones NEG Urine Blood NEG Urine Nitrite NEG Ur Leukocyte Esterase NEG Ethyl Alcohol < 10 COVID-19 ([facility]) COVID-19 Clin Com 11/25/20 11/25/20 11/26/20 15:43 16:37 07:42 WBC 9.1 RBC 4.13 L Hgb 13.1 L Hct 39.0 L MCV 94.4 MCH 31.7 MCHC 33.6 RDW 13.9 Plt Count 211 MPV 11.0 Immature Gran % (Auto) 0.3 Neut % (Auto) 56.1 Lymph % (Auto) 30.1 [place] % (Auto) 9.1 Eos % (Auto) 3.6 Baso % (Auto) 0.8 Lymph # (Auto) 2.7 [place] # (Auto) 0.8 Eos # (Auto) 0.3 Baso # (Auto) 0.1 Abs Immat Gran (auto) 0.03 Absolute Neuts (auto) 5.1 Absolute Nucleated RBC 0.000 Nucleated RBC % (auto) 0.0 Sodium 133 L Potassium 5.1 Chloride 98 Carbon Dioxide 29 Anion Gap 11 L BUN 29 H Creatinine 1.50 H Estim Creat Clear Calc 33.3 Estimated GFR 45 Random Glucose Fasting Glucose 100 H Calcium 9.5 Total Bilirubin 0.9 Direct Bilirubin AST 22 ALT 17 Alkaline Phosphatase 95 Total Protein 7.5 Albumin 3.9 Triglycerides 87 Cholesterol 216 LDL Cholesterol, Calc 148 HDL Cholesterol 51 Vitamin B12 TSH 2.21 Urine Color Urine Appearance Urine pH Ur Specific [place] Urine Protein Urine Glucose (UA) Urine Ketones Urine Blood Urine Nitrite Ur Leukocyte Esterase Ethyl Alcohol COVID-19 ([facility]) Negative COVID-19 Clin Com See Note 11/26/20 07:42 WBC RBC Hgb Hct MCV MCH MCHC RDW Plt Count MPV Immature Gran % (Auto) Neut % (Auto) Lymph % (Auto) [place] % (Auto) Eos % (Auto) Baso % (Auto) Lymph # (Auto) [place] # (Auto) Eos # (Auto) Baso # (Auto) Abs Immat Gran (auto) Absolute Neuts (auto) Absolute Nucleated RBC Nucleated RBC % (auto) Sodium Potassium Chloride Carbon Dioxide Anion Gap BUN Creatinine Estim Creat Clear Calc Estimated GFR Random Glucose Fasting Glucose Calcium Total Bilirubin Direct Bilirubin AST ALT Alkaline Phosphatase Total Protein Albumin Triglycerides Cholesterol LDL Cholesterol, Calc HDL Cholesterol Vitamin B12 773 TSH Urine Color Urine Appearance Urine pH Ur Specific [place] Urine Protein Urine Glucose (UA) Urine Ketones Urine Blood Urine Nitrite Ur Leukocyte Esterase Ethyl Alcohol COVID-19 ([facility]) COVID-19 Clin Com Airway Mallampati Class: II TM Dist: >3cm Neck ROM: Full Loose/Missing/Broken Teeth: Yes Heart: RRR Lungs: CTAB Assessment and Plan Assessment Anesthesia Assessment: Anesthesia Plan Discussed and Chart Reviewed Final Anesthetic Review NPO: Yes ASA Class: III Final Preanesthetic Review: No Changes in Pt Med Stat, Meds/Allgs Chart Reviewed, Consent Obtained/Reviewed and Anes Risks/Benef Reviewed Patient Risk: Intermediate Procedure Risk: Intermediate Assessment/Block/Sedation in SS: Assess/Block/Sedation-SS Anesthetic Plan Anesthetic Plan: GA Disposition: Inp. Admit - Standard Bed
[2020-11-27] MEDS: Lactated Ringers 1,000 ML 100 ML IVCONT (09:00)
--- NOTE | 2020-11-27 09:38 | MHC.SHP ---
Pre-Procedural Eval Section A The patient is an INPATIENT: Yes Changes since office visit: Yes New Medical Problems and Yes Patient answered all questions; No Cold of Flu in the past 2 weeks and No Changes in Medication The History & Physical has been completed within 30 days and I have reviewed it.: Yes Section B Chief Complaint: SEVERE DEPRESSION Allergies: Allergies Allergy/AdvReac Type Severity Reaction Status Date / Time Sulfa (Sulfonamide Allergy Unknown UNKNOWN Unverified 05/28/20 19:34 Antibiotics) [SULFA (SULFONAMIDE ANTIBIOTICS)] Plan I have reviewed the history and physical and performed a pertinent physical examination on my patient. No changes have occurred unless specified.
--- NOTE | 2020-11-27 10:00 | HO.ECTPROC ---
ECT Procedure Note Diagnosis/Treatment Date of Service: 11/27/20 Diagnosis: Bipolar disorder Current Treatment Number: 1 Treatment: Series (1) Interval Clinical Notes: pt severely depressed withdrawn ECT Settings Device: THYMATRON DGx Electrode Placement: Bitemporal Program/Pulse Width: 0.25 Energy Percent: 100 Seizure Duration By EEG (in seconds): 41 Medications Administration General Anesthetic: Etomidate (12) Muscle Relaxant: Succinylcholine (100) Ancillary Medications Analgesics: Torodol - Pre ECT Anti-emetics: Zofran - Pre ECT Airway Management Airway Management: Bag Mask Ventilation Treatment Recommendations No Changes Recommended: No change Pt Tolerated Procedure w/o Issue: Yes
[2020-11-27] MEDS: Docusate Sodium 100 MG CAPSULE PO ×2 (11:15→20:41)
[2020-11-27] MEDS: Lurasidone HCl 20 MG TABLET 10 MG PO (11:16)
[2020-11-27] MEDS: QUEtiapine Fumarate 25 MG TABLET 12.5 MG PO (11:18)
[2020-11-27] MEDS: Famotidine 20 MG TABLET PO ×2 (11:18→20:41)
[2020-11-27] MEDS: LORazepam 0.5 MG TABLET PO ×2 (16:42→20:41)
[2020-11-27] MEDS: QUEtiapine Fumarate 25 MG TABLET 37.5 MG PO (20:41)
[2020-11-27] MEDS: Mirtazapine 15 MG TABLET PO (20:41)
--- NOTE | 2020-11-27 23:51 | HO.PSYCHPN ---
Subjective Subjective Date of Service: 11/30/20 Reason For Visit: SEVERE DEPRESSION Subjective Notes: Conditional Voluntary Interim History: see ect note pt completed first ect without problem Medication Compliance: Yes Side effects from medications: Yes Attending Groups: No Mental Status Exam Mental Status Exam Patient Appearance: Disheveled Patient Orientation: Person, Place and Situation Level of Consciousness: Awake Patient Behavior: Appropriate, Cooperative and Passive Mood Description: Withdrawn and Depressed Affect Description: Depressed and Blunted Speech Pattern: Clear and Monotone Memory Description: Episodic Impaired Delusions: Not Present Thought Process: Rumination and Goal Oriented Thought Content: positive for [place], positive for Suicidal Ideation (Passive SI feels connected to family and but essentially nothing to live for) and negative for Homicidal Ideation Depressive Symptoms: Increased Anxiety, Diff. Making Decisions, Significant Weight Loss, Hopelessness, Thoughts of /Suicide, Loss of Energy and Difficulty Concentrating Diagnostics Vital Signs (24Hr): Vital Signs - 24 hr 11/27/20 06:35 11/27/20 08:40 11/27/20 10:00 Temperature 97.2 F 97.1 F 98.8 F Pulse Rate 84 60 86 Respiratory Rate 16 16 17 Blood Pressure 104/61 125/72 168/94 H Pulse Oximetry 93 99 100 11/27/20 10:05 11/27/20 10:10 11/27/20 10:15 Temperature Pulse Rate 71 73 80 Respiratory Rate 14 16 22 H Blood Pressure 130/80 136/82 133/80 Pulse Oximetry 99 99 99 11/27/20 10:30 11/27/20 10:40 11/27/20 11:07 Temperature 98.4 F 97.8 F Pulse Rate 86 86 80 Respiratory Rate 20 20 Blood Pressure 138/83 143/82 H 107/64 Pulse Oximetry 100 98 95 11/27/20 18:00 Temperature 98.2 F Pulse Rate 86 Respiratory Rate 14 Blood Pressure 138/84 Pulse Oximetry 97 Body Mass Index 19.7 Labs Results: 11/28/20 14:38 11/28/20 14:38 Labs: Laboratory Results - last 48 hr 11/26/20 11/26/20 07:42 07:42 Sodium 133 L Potassium 5.1 Chloride 98 Carbon Dioxide 29 Anion Gap 11 L BUN 29 H Creatinine 1.50 H Estim Creat Clear Calc 33.3 Estimated GFR 45 Fasting Glucose 100 H Calcium 9.5 Total Bilirubin 0.9 AST 22 ALT 17 Alkaline Phosphatase 95 Total Protein 7.5 Albumin 3.9 Triglycerides 87 Cholesterol 216 LDL Cholesterol, Calc 148 HDL Cholesterol 51 Vitamin B12 773 TSH 2.21 Medications Medications Current Medications Generic Name Dose Route Start Last Admin Trade Name Joaquín PRN Reason Stop Dose Admin Acetaminophen 650 mg 11/25/20 22:48 Acetaminophen 325 Mg Tablet PO Q6H PRN Headache/Pain Mild Scale (1-3) Al Hydroxide/Mg Hydroxide 30 ml 11/25/20 22:48 Magnesium Hydrox/Alum Hydrox 30 Ml Oral.Susp PO Q6H PRN Heartburn/Nausea Docusate Sodium 100 mg 11/26/20 21:00 11/27/20 20:41 Docusate Sodium 100 Mg Capsule PO 100 mg BID DOMINICK Administration Famotidine 20 mg 11/26/20 21:00 11/27/20 20:41 Famotidine 20 Mg Tablet PO 20 mg BID DOMINICK Administration Hydroxyzine HCl 25 mg 11/25/20 22:48 Hydroxyzine Hcl 25 Mg Tablet PO BEDTIME PRN Anxiety Lactated Ringer's 1,000 mls @ 100 mls/hr 11/27/20 09:00 11/27/20 18:37 Lr IVCONT Not Given .Q10H DOMINICK Promethazine HCl 6.25 mg/ 50.25 mls @ 201 mls/hr 11/27/20 09:38 Sodium Chloride IV ONCE PRN Nausea and Vomiting Lorazepam 0.5 mg 11/26/20 21:00 11/27/20 20:41 Lorazepam 0.5 Mg Tablet PO 0.5 mg BEDTIME DOMINICK Administration Lorazepam 0.5 mg 11/25/20 22:54 11/27/20 16:42 Lorazepam 0.5 Mg Tablet PO 0.5 mg DAILY PRN Administration Anxiety Lurasidone HCl 10 mg 11/26/20 09:00 11/27/20 11:16 Lurasidone Hcl 20 Mg Tablet PO 10 mg DAILY DOMINICK Administration Magnesium Hydroxide 30 ml 11/25/20 22:48 Milk Of Magnesia 30 Ml Oral.Susp PO DAILY PRN Constipation Mirtazapine 15 mg 11/25/20 22:48 11/27/20 20:41 Mirtazapine 15 Mg Tablet PO 15 mg BEDTIME DOMINICK Administration Pt Own Med: 1 each 11/27/20 08:00 11/27/20 20:41 Nintedanib (Ofev) PO 1 each 150mg Cap Q12H DOMINICK Administration Ondansetron HCl 4 mg 11/25/20 22:48 11/27/20 13:36 Ondansetron Odt 4 Mg Tab.Rapdis TRANSLINGU 4 mg Q8H PRN Administration nausea/vomiting Quetiapine Fumarate 37.5 mg 11/25/20 22:48 11/27/20 20:41 Quetiapine Fumarate 25 Mg Tablet PO 37.5 mg BEDTIME DOMINICK Administration Quetiapine Fumarate 12.5 mg 11/26/20 21:00 11/27/20 11:18 Quetiapine Fumarate 25 Mg Tablet PO 12.5 mg BID DOMINICK Administration Allergies Allergies Allergy/AdvReac Type Severity Reaction Status Date / Time Sulfa (Sulfonamide Allergy Unknown UNKNOWN Unverified 05/28/20 19:34 Antibiotics) [SULFA (SULFONAMIDE ANTIBIOTICS)] zoster vaccine live Allergy Hives Verified 11/27/20 18:20 Assessment & Plan Assessment & Plan (1) Bipolar I disorder with depression, severe: Status: Acute Code(s): F31.4 - Bipolar disorder, current episode depressed, severe, without psychotic features Assessment and Plan: continue ect Greater than 50% of the session was spent on counseling and/or coordination of care Patient educated on: diagnosis and ECT Informed Consent: understands Reason for contiued inpatient stay Substantial Risk for: harm to self, rapid decompensation and med/psych decompensation
[2020-11-28 06:30] VITALS: BP 110/52; PULSE 77; RESP 16; TEMP 36.9
[2020-11-28] MEDS: QUEtiapine Fumarate 25 MG TABLET 12.5 MG PO ×2 (08:22→21:27)
[2020-11-28] MEDS: Acetaminophen 325 MG TABLET 650 MG PO ×2 (08:22→16:15)
[2020-11-28] MEDS: Lurasidone HCl 20 MG TABLET 10 MG PO (08:23)
[2020-11-28] MEDS: Docusate Sodium 100 MG CAPSULE PO ×2 (08:23→21:27)
[2020-11-28] MEDS: Famotidine 20 MG TABLET PO ×2 (08:23→21:26)
[2020-11-28] MEDS: Magnesium Hydrox/Alum Hydrox 30 ML ORAL.SUSP PO (09:26)
[2020-11-28 13:00] VITALS: BP 91/53; PULSE 71; RESP 18; TEMP 37.6; O2SAT 98
--- NOTE | 2020-11-28 13:51 | P.PNPSI_ITS ---
Subjective Subjective Date of Service: 11/28/20 Reason For Visit: SEVERE DEPRESSION Subjective Notes: Conditional Voluntary Interim History: Pt had ECT yesterday. He reports feeling sore today mostly on back. He continues to endorse depressed mood, anhedonia, poor sleep, low energy. He reports passive suicidal ideation but denies any plan or intent. Pt later reported nausea and malaise- temp 99, BP 91/53. Will recheck cbc, cmp, covid rapid test, MSE Appearance: thin male, appears older than stated age, wearing hospital gown, fair hygiene, in NAD Behavior: calm, cooperative Psychomotor: retardation noted Speech: clear, normal rate/rhythm/volume, spontaneous TP: linear TC: no signs of psychosis, hopeless/depressed Mood: depressed Affect:blunted AH/VH:none Delusions:none Insight/judgment:fair x 2. Memory/cog: alert, oriented x 3. not formally tested Medication Compliance: Yes Side effects from medications: No Attending Groups: No Review of Systems Review of Systems Yes all other systems are reviewed and are negative Constitutional: Reports as per HPI, Reports no additional constitutional complaints, Denies chills and Denies fever(s) Eyes: Reports as per HPI and Reports no additional eye complaints Reports system reviewed and no additional complaints, except as documented and Reports as per HPI Cardiovascular: Reports as per HPI, Reports no additional cardiovascular compl aints and Denies chest pain Respiratory: Reports as per HPI, Reports no additional respiratory complaints and Denies cough Gastrointestinal: Reports as per HPI, Reports no additional gastrointestinal complaints and Denies abdominal pain Genitourinary: Reports no additional male genitourinary complaints and Reports as per HPI Musculoskeletal: Reports no additional musculoskeletal complaints and Reports as per HPI Reports system reviewed and no additional complaints, except as documented and Reports as per HPI Psychiatric: Reports no additional psychiatric complaints and Reports as per HPI Diagnostics Vital Signs (24Hr): Vital Signs - 24 hr 11/27/20 18:00 11/28/20 06:30 11/28/20 13:00 Temperature 98.2 F 98.4 F 99.7 F Pulse Rate 86 77 71 Respiratory Rate 14 16 18 Blood Pressure 138/84 110/52 L 91/53 L Pulse Oximetry 97 98 Body Mass Index 19.7 Labs Results: 11/25/20 15:43 11/26/20 07:42 Medications Medications Current Medications Generic Name Dose Route Start Last Admin Trade Name Demetriusq PRN Reason Stop Dose Admin Acetaminophen 650 mg 11/25/20 22:48 11/28/20 08:22 Acetaminophen 325 Mg Tablet PO 650 mg Q6H PRN Administration Headache/Pain Mild Scale (1-3) Al Hydroxide/Mg Hydroxide 30 ml 11/25/20 22:48 11/28/20 09:26 Magnesium Hydrox/Alum Hydrox 30 Ml Oral.Susp PO 30 ml Q6H PRN Administration Heartburn/Nausea Docusate Sodium 100 mg 11/26/20 21:00 11/28/20 08:23 Docusate Sodium 100 Mg Capsule PO 100 mg BID DOMINICK Administration Famotidine 20 mg 11/26/20 21:00 11/28/20 08:23 Famotidine 20 Mg Tablet PO 20 mg BID DOMINICK Administration Hydroxyzine HCl 25 mg 11/25/20 22:48 Hydroxyzine Hcl 25 Mg Tablet PO BEDTIME PRN Anxiety Promethazine HCl 6.25 mg/ 50.25 mls @ 201 mls/hr 11/27/20 09:38 Sodium Chloride IV ONCE PRN Nausea and Vomiting Lorazepam 0.5 mg 11/26/20 21:00 11/27/20 20:41 Lorazepam 0.5 Mg Tablet PO 0.5 mg BEDTIME DOMINICK Administration Lorazepam 0.5 mg 11/25/20 22:54 11/27/20 16:42 Lorazepam 0.5 Mg Tablet PO 0.5 mg DAILY PRN Administration Anxiety Lurasidone HCl 10 mg 11/26/20 09:00 11/28/20 08:23 Lurasidone Hcl 20 Mg Tablet PO 10 mg DAILY DOMINICK Administration Magnesium Hydroxide 30 ml 11/25/20 22:48 Milk Of Magnesia 30 Ml Oral.Susp PO DAILY PRN Constipation Mirtazapine 15 mg 11/25/20 22:48 11/27/20 20:41 Mirtazapine 15 Mg Tablet PO 15 mg BEDTIME DOMINICK Administration Pt Own Med: 1 each 11/27/20 08:00 11/28/20 08:29 Nintedanib (Ofev) PO 1 each 150mg Cap Q12H DOMINICK Administration Ondansetron HCl 4 mg 11/25/20 22:48 11/27/20 13:36 Ondansetron Odt 4 Mg Tab.Rapdis TRANSLINGU 4 mg Q8H PRN Administration nausea/vomiting Quetiapine Fumarate 37.5 mg 11/25/20 22:48 11/27/20 20:41 Quetiapine Fumarate 25 Mg Tablet PO 37.5 mg BEDTIME DOMINICK Administration Quetiapine Fumarate 12.5 mg 11/26/20 21:00 11/28/20 08:22 Quetiapine Fumarate 25 Mg Tablet PO 12.5 mg BID DOMINICK Administration Allergies Allergies Allergy/AdvReac Type Severity Reaction Status Date / Time Sulfa (Sulfonamide Allergy Unknown UNKNOWN Unverified 05/28/20 19:34 Antibiotics) [SULFA (SULFONAMIDE ANTIBIOTICS)] zoster vaccine live Allergy Hives Verified 11/27/20 18:20 Assessment & Plan Assessment & Plan (1) CKD (chronic kidney disease) stage 3, GFR 30-59 ml/min: Status: Acute Code(s): N18.30 - Chronic kidney disease, stage 3 unspecified Assessment and Plan: This is a 80 year old male with a history of CKD3, ILD, bipolar depression, bladder tumor s/p resection, admitted to for ECT treatments in the setting of worsening depression. The patient has h/o ILD on nintedanib. denies heart disease, chest pain. has had ECT without issue in the past. EKG without ischemic changes. There is no obvious contraindication to ECT at this time. Thank you for allowing us to participate in the care of this patient. This case was discussed with Dr. Marie. Greater than 50% of the session was spent on counseling and/or coordination of care Reason for contiued inpatient stay Substantial Risk for: harm to self and inability to function
[2020-11-28 14:48] LABS: MANUAL DIFF FLAG NO
[2020-11-28 14:53] LABS: Basophils Absolute Auto 0.1 X10*3/uL (0.0-0.2); Basophils Percent Auto 0.6 % (0-2); Eosinophils Absolute Auto 0.2 X10*3/uL (0.0-0.4); Eosinophils Percent Auto 1.7 % (0-4); Hematocrit 36.6 % (42-52); Hemoglobin 12.5 g/dl (14.0-18.0); Imm Gran Abs Auto 0.03 X10*3/uL (0.00-0.03); Imm Gran Pct Auto 0.2 % (0.0-0.4); Lymphocytes Percent Auto 16.6 % (20-40); Mean Corpuscular HGB Conc 34.2 g/dl (31.0-36.0); Mean Corpuscular Hemoglobin 32.1 pg (27.0-33.0); Mean Corpuscular Volume 94.1 fL (80-98); Mean Platelet Volume 10.7 fL (9.4-12.4); Monocytes Percent Auto 8.5 % (2-11); Neutrophils Absolute Auto 8.8 X10*3/uL (2.0-8.3); Neutrophils Percent Auto 72.4 % (45-73); Platelet Count 192 X10*3/uL (160-400); Red Blood Count 3.89 X10*6/uL (4.60-5.80); Red Cell Distribution Width 13.8 % (11.0-16.0); White Blood Count 12.1 X10*3/uL (4.8-10.8)
[2020-11-28 15:14] LABS: COVID-19 Test Negative (Negative); IDNOW Serial# 9DD0AD1C
[2020-11-28 15:17] LABS: Alanine Aminotransferase 15 U/L (0-40); Albumin Level 3.7 g/dL (3.5-5.0); Alkaline Phosphatase 86 U/L (39-117); Anion Gap 12 (12-20); Aspartate Amino Transferase 22 U/L (5-37); Bilirubin Total 0.6 mg/dL (0.0-1.0); Blood Urea Nitrogen 26 mg/dL (9-16); Calcium 9.2 mg/dL (8.4-10.2); Carbon Dioxide 28 mmol/L (22-29); Chloride 97 mmol/L (96-108); Creatinine Clr Calc Pharmacy 32.6; Estimated Glomerular Filt Rate 44; Glucose Random 140 mg/dL (60-115); Potassium 4.9 mmol/L (3.3-5.1); Sodium 132 mmol/L (135-145); Total Protein 7.2 g/dL (6.5-8.0)
[2020-11-28 16:45] VITALS: BP 123/63; PULSE 66; TEMP 36.6
--- NOTE | 2020-11-28 19:10 | HO.POSTANES ---
Post Anesthesia Evaluation Post Anesthesia Evaluation Vital Signs: Vital Signs Temp Pulse Resp BP Pulse Ox 11/28/20 16:45 97.9 F 66 123/63 11/28/20 13:00 99.7 F 71 18 91/53 L 98 Anesthesia: General Mental Status: Awake Pain Control: Satisfactory Nausea/Vomiting: None Hydration: Adequate Anesthesia-Related Issues: No Anes. Related Issues
[2020-11-28] MEDS: QUEtiapine Fumarate 25 MG TABLET 37.5 MG PO (21:25)
[2020-11-28] MEDS: Mirtazapine 15 MG TABLET PO (21:25)
[2020-11-28] MEDS: LORazepam 0.5 MG TABLET PO (21:27)
[2020-11-29 06:05] VITALS: BP 108/57; PULSE 61; RESP 18; TEMP 36.9; O2SAT 100
[2020-11-29] MEDS: Famotidine 20 MG TABLET PO ×2 (08:52→21:04)
[2020-11-29] MEDS: Docusate Sodium 100 MG CAPSULE PO ×2 (08:52→21:06)
[2020-11-29] MEDS: Acetaminophen 325 MG TABLET 650 MG PO ×2 (08:52→15:51)
[2020-11-29] MEDS: Lurasidone HCl 20 MG TABLET 10 MG PO (08:52)
[2020-11-29] MEDS: QUEtiapine Fumarate 25 MG TABLET 12.5 MG PO ×2 (08:53→21:06)
--- NOTE | 2020-11-29 11:06 | HO.PSYCHPN ---
Subjective Subjective Date of Service: 11/29/20 Reason For Visit: SEVERE DEPRESSION Interim History: Pt reports soreness after ECT less today. He had also reported some sore throat most likely related to ECT. He reports fair sleep. he continues to endorse depressed mood, anhedonia, low energy. He reports passive suicidal ideation but denies any plan. He has been mostly in his room. Minimal interactive with peers. MSE Appearance: thin male, appears older than stated age, wearing hospital gown, fair hygiene, in NAD Behavior: calm, cooperative Psychomotor: retardation noted Speech: clear, normal rate/rhythm/volume, spontaneous TP: linear TC: no signs of psychosis, hopeless/depressed Mood: depressed Affect:blunted AH/VH:none Delusions:none Insight/judgment:fair x 2. Memory/cog: alert, oriented x 3. not formally tested Review of Systems Review of Systems Yes all other systems are reviewed and are negative Constitutional: Reports as per HPI, Reports no additional constitutional complaints, Denies chills and Denies fever(s) Eyes: Reports as per HPI and Reports no additional eye complaints Reports system reviewed and no additional complaints, except as documented and Reports as per HPI Cardiovascular: Reports as per HPI, Reports no additional cardiovascular complaints and Denies chest pain Respiratory: Reports as per HPI, Reports no additional respiratory complaints and Denies cough Gastrointestinal: Reports as per HPI, Reports no additional gastrointestinal complaints and Denies abdominal pain Genitourinary: Reports no additional male genitourinary complaints and Reports as per HPI Musculoskeletal: Reports no additional musculoskeletal complaints and Reports as per HPI Reports system reviewed and no additional complaints, except as documented and Reports as per HPI Psychiatric: Reports no additional psychiatric complaints and Reports as per HPI Diagnostics Vital Signs (24Hr): Vital Signs - 24 hr 11/28/20 13:00 11/28/20 16:45 11/29/20 06:05 Temperature 99.7 F 97.9 F 98.5 F Pulse Rate 71 66 61 Respiratory Rate 18 18 Blood Pressure 91/53 L 123/63 108/57 L Pulse Oximetry 98 100 Body Mass Index 19.7 Labs Results: 11/28/20 14:38 11/28/20 14:38 Labs: Laboratory Results - last 48 hr 11/28/20 11/28/20 11/28/20 14:38 14:38 14:45 WBC 12.1 H RBC 3.89 L Hgb 12.5 L Hct 36.6 L MCV 94.1 MCH 32.1 MCHC 34.2 RDW 13.8 Plt Count 192 MPV 10.7 Immature Gran % (Auto) 0.2 Neut % (Auto) 72.4 Lymph % (Auto) 16.6 L [place] % (Auto) 8.5 Eos % (Auto) 1.7 Baso % (Auto) 0.6 Lymph # (Auto) 2.0 [place] # (Auto) 1.0 Eos # (Auto) 0.2 Baso # (Auto) 0.1 Abs Immat Gran (auto) 0.03 Absolute Neuts (auto) 8.8 H Absolute Nucleated RBC 0.000 Nucleated RBC % (auto) 0.0 Sodium 132 L Potassium 4.9 Chloride 97 Carbon Dioxide 28 Anion Gap 12 BUN 26 H Creatinine 1.53 H Estim Creat Clear Calc 32.6 Estimated GFR 44 Random Glucose 140 H D Calcium 9.2 Total Bilirubin 0.6 AST 22 ALT 15 Alkaline Phosphatase 86 Total Protein 7.2 Albumin 3.7 COVID-19 ([facility]) Negative COVID-19 Clin Com See Note Medications Medications Current Medications Generic Name Dose Route Start Last Admin Trade Name Freq PRN Reason Stop Dose Admin Acetaminophen 650 mg 11/25/20 22:48 11/29/20 08:52 Acetaminophen 325 Mg Tablet PO 650 mg Q6H PRN Administration Headache/Pain Mild Scale (1-3) Al Hydroxide/Mg Hydroxide 30 ml 11/25/20 22:48 11/28/20 09:26 Magnesium Hydrox/Alum Hydrox 30 Ml Oral.Susp PO 30 ml Q6H PRN Administration Heartburn/Nausea Docusate Sodium 100 mg 11/26/20 21:00 11/29/20 08:52 Docusate Sodium 100 Mg Capsule PO 100 mg BID DOMINICK Administration Famotidine 20 mg 11/26/20 21:00 11/29/20 08:52 Famotidine 20 Mg Tablet PO 20 mg BID DOMINICK Administration Hydroxyzine HCl 25 mg 11/25/20 22:48 Hydroxyzine Hcl 25 Mg Tablet PO BEDTIME PRN Anxiety Promethazine HCl 6.25 mg/ 50.25 mls @ 201 mls/hr 11/27/20 09:38 Sodium Chloride IV ONCE PRN Nausea and Vomiting Lorazepam 0.5 mg 11/26/20 21:00 11/28/20 21:27 Lorazepam 0.5 Mg Tablet PO 0.5 mg BEDTIME DOMINICK Administration Lorazepam 0.5 mg 11/25/20 22:54 11/27/20 16:42 Lorazepam 0.5 Mg Tablet PO 0.5 mg DAILY PRN Administration Anxiety Lurasidone HCl 10 mg 11/26/20 09:00 11/29/20 08:52 Lurasidone Hcl 20 Mg Tablet PO 10 mg DAILY DOMINICK Administration Magnesium Hydroxide 30 ml 11/25/20 22:48 Milk Of Magnesia 30 Ml Oral.Susp PO DAILY PRN Constipation Mirtazapine 15 mg 11/25/20 22:48 11/28/20 21:25 Mirtazapine 15 Mg Tablet PO 15 mg BEDTIME DOMINICK Administration Pt Own Med: 1 each 11/27/20 08:00 11/29/20 08:54 Nintedanib (Ofev) PO 1 each 150mg Cap Q12H DOMINICK Administration Ondansetron HCl 4 mg 11/25/20 22:48 11/27/20 13:36 Ondansetron Odt 4 Mg Tab.Rapdis TRANSLINGU 4 mg Q8H PRN Administration nausea/vomiting Quetiapine Fumarate 37.5 mg 11/25/20 22:48 11/28/20 21:25 Quetiapine Fumarate 25 Mg Tablet PO 37.5 mg BEDTIME DOMINICK Administration Quetiapine Fumarate 12.5 mg 11/26/20 21:00 11/29/20 08:53 Quetiapine Fumarate 25 Mg Tablet PO 12.5 mg BID DOMINICK Administration Allergies Allergies Allergy/AdvReac Type Severity Reaction Status Date / Time Sulfa (Sulfonamide Allergy Unknown UNKNOWN Unverified 05/28/20 19:34 Antibiotics) [SULFA (SULFONAMIDE ANTIBIOTICS)] zoster vaccine live Allergy Hives Verified 11/27/20 18:20 Assessment & Plan Assessment & Plan (1) CKD (chronic kidney disease) stage 3, GFR 30-59 ml/min: Status: Acute Code(s): N18.30 - Chronic kidney disease, stage 3 unspecified Assessment and Plan: This is a 80 year old male with a history of CKD3, ILD, bipolar depression, bladder tumor s/p resection, admitted to for ECT treatments in the setting of worsening depression. The patient has h/o ILD on nintedanib. denies heart disease, chest pain. has had ECT without issue in the past. EKG without ischemic changes. There is no obvious contraindication to ECT at this time. Thank you for allowing us to participate in the care of this patient. This case was discussed with Dr. Marie. Greater than 50% of the session was spent on counseling and/or coordination of care Reason for contiued inpatient stay Substantial Risk for: harm to self and inability to function
[2020-11-29 13:00] VITALS: BP 102/51; PULSE 61; RESP 17; TEMP 36.9; O2SAT 97
[2020-11-29 17:15] VITALS: BP 113/60; PULSE 68; TEMP 36.8
[2020-11-29] MEDS: Mirtazapine 15 MG TABLET PO (21:03)
[2020-11-29] MEDS: QUEtiapine Fumarate 25 MG TABLET 37.5 MG PO (21:04)
[2020-11-29] MEDS: LORazepam 0.5 MG TABLET PO (21:06)
[2020-11-30] VITALS (10 sets, daily range): BP systolic 108–165; BP diastolic 59–95; PULSE 62–84; RESP 12–18; TEMP 36.3–36.9; O2SAT 96–99; BMI 19.8
--- NOTE | 2020-11-30 09:54 | HO.ANESPROP2 ---
[facility] Active Problems Active Problems: All Active Problems (Updated 11/29/20 @ 16:48 by Blane Chowdhury MD) Pulmonary fibrosis (Acute) Bipolar I disorder with depression, severe (Acute) CKD (chronic kidney disease) stage 3, GFR 30-59 ml/min (Acute) Bipolar disorder (Acute) Past Medical History Medical History (Updated 11/29/20 @ 16:48 by Blane Chowdhury MD) Anemia Anxiety Bronchiectasis Cerebrovascular disease CHF (congestive heart failure) Chronic hyponatremia CKD (chronic kidney disease) stage 3, GFR 30-59 ml/min Degenerative arthritis Depression History of electroconvulsive therapy Hx of bladder cancer Hydrocele Pulmonary fibrosis Pulmonary fibrosis Functional capacity: independent ambulation Family History Family History Father Colon cancer Family history of problems with anesthesia: No Surgical History Surgical History History of bladder surgery History of Problems with Anesthesia: Yes (N&V) Social History Social History Household Members: Spouse Housing: Apartment Do you presently have visiting nurse or other home services: Yes Smoking Status: Never smoker Second Hand Smoke Exposure: No Use of substances other than those prescribed or required for medical reasons: No Substance Use Type: Marijuana Substance Use Type Other:: Medicinal marijuana approximately six months ago. Last Used Substance Other:: Six months ago. Currently Displaying Signs/Symptoms of Drug Intoxication Withdrawal: No Any prior treatment program specific to substance use: No Have you been hit, kicked, punched, or otherwise hurt by someone within the past year? If so, by whom?: No Do you feel safe in your current relationship?: Yes Is there a partner from a previous relationship who is making you feel unsafe now?: No Are you made to feel afraid or neglected: No Advance Directives: Yes Advance Directives Information Provided: Yes Advance Directives on File: No Advance Directives Date on File: 11/27/20 Do you have thoughts of harming others: None Do you have a plan to hurt others: No Plan Recently lost weight without trying: No service: No Sexual orientation: Straight/Heterosexual Meds Allergies Allergy/AdvReac Type Severity Reaction Status Date / Time Sulfa (Sulfonamide Allergy Unknown UNKNOWN Unverified 05/28/20 19:34 Antibiotics) [SULFA (SULFONAMIDE ANTIBIOTICS)] zoster vaccine live Allergy Hives Verified 11/27/20 18:20 Active Medications: Current Medications Generic Name Dose Route Start Last Admin Trade Name Freq PRN Reason Stop Dose Admin Acetaminophen 650 mg 11/25/20 22:48 11/29/20 15:51 Acetaminophen 325 Mg Tablet PO 650 mg Q6H PRN Administration Headache/Pain Mild Scale (1-3) Al Hydroxide/Mg Hydroxide 30 ml 11/25/20 22:48 11/28/20 09:26 Magnesium Hydrox/Alum Hydrox 30 Ml Oral.Susp PO 30 ml Q6H PRN Administration Heartburn/Nausea Docusate Sodium 100 mg 11/26/20 21:00 11/29/20 21:06 Docusate Sodium 100 Mg Capsule PO 100 mg BID DOMINICK Administration Famotidine 20 mg 11/26/20 21:00 11/29/20 21:04 Famotidine 20 Mg Tablet PO 20 mg BID DOMINICK Administration Hydroxyzine HCl 25 mg 11/25/20 22:48 Hydroxyzine Hcl 25 Mg Tablet PO BEDTIME PRN Anxiety Promethazine HCl 6.25 mg/ 50.25 mls @ 201 mls/hr 11/27/20 09:38 Sodium Chloride IV ONCE PRN Nausea and Vomiting Lorazepam 0.5 mg 11/26/20 21:00 11/29/20 21:06 Lorazepam 0.5 Mg Tablet PO 0.5 mg BEDTIME DOMINICK Administration Lorazepam 0.5 mg 11/25/20 22:54 11/27/20 16:42 Lorazepam 0.5 Mg Tablet PO 0.5 mg DAILY PRN Administration Anxiety Lurasidone HCl 10 mg 11/26/20 09:00 11/29/20 08:52 Lurasidone Hcl 20 Mg Tablet PO 10 mg DAILY DOMINICK Administration Magnesium Hydroxide 30 ml 11/25/20 22:48 Milk Of Magnesia 30 Ml Oral.Susp PO DAILY PRN Constipation Mirtazapine 15 mg 11/25/20 22:48 11/29/20 21:03 Mirtazapine 15 Mg Tablet PO 15 mg BEDTIME DOMINICK Administration Pt Own Med: 1 each 11/27/20 08:00 11/29/20 21:03 Nintedanib (Ofev) PO 1 each 150mg Cap Q12H DOMINICK Administration Ondansetron HCl 4 mg 11/25/20 22:48 11/27/20 13:36 Ondansetron Odt 4 Mg Tab.Rapdis TRANSLINGU 4 mg Q8H PRN Administration nausea/vomiting Quetiapine Fumarate 37.5 mg 11/25/20 22:48 11/29/20 21:04 Quetiapine Fumarate 25 Mg Tablet PO 37.5 mg BEDTIME DOMINICK Administration Quetiapine Fumarate 12.5 mg 11/26/20 21:00 11/29/20 21:06 Quetiapine Fumarate 25 Mg Tablet PO 12.5 mg BID DOMINICK Administration Home Medications Medication Instructions Recorded Confirmed Last Taken Type docusate sodium [Stool Softener] 1 cap PO BID PRN 11/25/20 11/25/20 11/25/20 History lorazepam 1 tab PO BID PRN 11/25/20 11/25/20 11/25/20 History lurasidone [Latuda] 1 tab PO DAILY 11/25/20 11/25/20 11/25/20 History mirtazapine 1 tab PO BEDTIME 11/25/20 11/25/20 11/24/20 History nintedanib [Ofev] 150 mg PO BID 11/25/20 11/25/20 11/25/20 History ondansetron 1 tab PO Q8H PRN 11/25/20 11/25/20 Unknown History quetiapine 37.5 mg PO BEDTIME 11/25/20 11/25/20 11/24/20 History Exam Exam Date and Time: November 30, 2020 0954 Height,Weight and Vital Signs: Height 5 ft 8 in Weight 59.24 kg Last Vital Signs Temp 98.1 F 11/30/20 09:27 Pulse 62 11/30/20 09:27 Resp 17 11/30/20 09:27 BP 127/69 11/30/20 09:27 Pulse Ox 96 11/30/20 09:27 Pertinent Lab Results Pertinent Lab Results: Laboratory Tests 11/25/20 11/25/20 11/25/20 15:35 15:42 15:42 WBC RBC Hgb Hct MCV MCH MCHC RDW Plt Count MPV Immature Gran % (Auto) Neut % (Auto) Lymph % (Auto) [place] % (Auto) Eos % (Auto) Baso % (Auto) Lymph # (Auto) [place] # (Auto) Eos # (Auto) Baso # (Auto) Abs Immat Gran (auto) Absolute Neuts (auto) Absolute Nucleated RBC Nucleated RBC % (auto) Sodium 133 L Potassium 5.3 H Chloride 99 Carbon Dioxide 26 Anion Gap 13 BUN 29 H Creatinine 1.38 Estim Creat Clear Calc 36.2 Estimated GFR 50 Random Glucose 103 Fasting Glucose Calcium 9.4 Total Bilirubin 0.6 Direct Bilirubin 0.2 AST 24 ALT 16 Alkaline Phosphatase 91 Total Protein 7.5 Albumin 3.8 Triglycerides Cholesterol LDL Cholesterol, Calc HDL Cholesterol Vitamin B12 TSH Urine Color YELLOW Urine Appearance CLEAR Urine pH 6.0 Ur Specific [place] 1.025 Urine Protein NEG Urine Glucose (UA) NEG Urine Ketones NEG Urine Blood NEG Urine Nitrite NEG Ur Leukocyte Esterase NEG Ethyl Alcohol < 10 COVID-19 ([facility]) COVID-19 [employer] Com 11/25/20 11/25/20 11/26/20 15:43 16:37 07:42 WBC 9.1 RBC 4.13 L Hgb 13.1 L Hct 39.0 L MCV 94.4 MCH 31.7 MCHC 33.6 RDW 13.9 Plt Count 211 MPV 11.0 Immature Gran % (Auto) 0.3 Neut % (Auto) 56.1 Lymph % (Auto) 30.1 [place] % (Auto) 9.1 Eos % (Auto) 3.6 Baso % (Auto) 0.8 Lymph # (Auto) 2.7 [place] # (Auto) 0.8 Eos # (Auto) 0.3 Baso # (Auto) 0.1 Abs Immat Gran (auto) 0.03 Absolute Neuts (auto) 5.1 Absolute Nucleated RBC 0.000 Nucleated RBC % (auto) 0.0 Sodium 133 L Potassium 5.1 Chloride 98 Carbon Dioxide 29 Anion Gap 11 L BUN 29 H Creatinine 1.50 H Estim Creat Clear Calc 33.3 Estimated GFR 45 Random Glucose Fasting Glucose 100 H Calcium 9.5 Total Bilirubin 0.9 Direct Bilirubin AST 22 ALT 17 Alkaline Phosphatase 95 Total Protein 7.5 Albumin 3.9 Triglycerides 87 Cholesterol 216 LDL Cholesterol, Calc 148 HDL Cholesterol 51 Vitamin B12 TSH 2.21 Urine Color Urine Appearance Urine pH Ur Specific [place] Urine Protein Urine Glucose (UA) Urine Ketones Urine Blood Urine Nitrite Ur Leukocyte Esterase Ethyl Alcohol COVID-19 ([facility]) Negative COVID-19 Clin Com See Note 11/26/20 11/28/20 11/28/20 07:42 14:38 14:38 WBC 12.1 H RBC 3.89 L Hgb 12.5 L Hct 36.6 L MCV 94.1 MCH 32.1 MCHC 34.2 RDW 13.8 Plt Count 192 MPV 10.7 Immature Gran % (Auto) 0.2 Neut % (Auto) 72.4 Lymph % (Auto) 16.6 L [place] % (Auto) 8.5 Eos % (Auto) 1.7 Baso % (Auto) 0.6 Lymph # (Auto) 2.0 [place] # (Auto) 1.0 Eos # (Auto) 0.2 Baso # (Auto) 0.1 Abs Immat Gran (auto) 0.03 Absolute Neuts (auto) 8.8 H Absolute Nucleated RBC 0.000 Nucleated RBC % (auto) 0.0 Sodium 132 L Potassium 4.9 Chloride 97 Carbon Dioxide 28 Anion Gap 12 BUN 26 H Creatinine 1.53 H Estim Creat Clear Calc 32.6 Estimated GFR 44 Random Glucose 140 H D Fasting Glucose Calcium 9.2 Total Bilirubin 0.6 Direct Bilirubin AST 22 ALT 15 Alkaline Phosphatase 86 Total Protein 7.2 Albumin 3.7 Triglycerides Cholesterol LDL Cholesterol, Calc HDL Cholesterol Vitamin B12 773 TSH Urine Color Urine Appearance Urine pH Ur Specific [place] Urine Protein Urine Glucose (UA) Urine Ketones Urine Blood Urine Nitrite Ur Leukocyte Esterase Ethyl Alcohol COVID-19 ([facility]) COVID-[employer] Com 11/28/20 14:45 WBC RBC Hgb Hct MCV MCH MCHC RDW Plt Count MPV Immature Gran % (Auto) Neut % (Auto) Lymph % (Auto) [place] % (Auto) Eos % (Auto) Baso % (Auto) Lymph # (Auto) [place] # (Auto) Eos # (Auto) Baso # (Auto) Abs Immat Gran (auto) Absolute Neuts (auto) Absolute Nucleated RBC Nucleated RBC % (auto) Sodium Potassium Chloride Carbon Dioxide Anion Gap BUN Creatinine Estim Creat Clear Calc Estimated GFR Random Glucose Fasting Glucose Calcium Total Bilirubin Direct Bilirubin AST ALT Alkaline Phosphatase Total Protein Albumin Triglycerides Cholesterol LDL Cholesterol, Calc HDL Cholesterol Vitamin B12 TSH Urine Color Urine Appearance Urine pH Ur Specific [place] Urine Protein Urine Glucose (UA) Urine Ketones Urine Blood Urine Nitrite Ur Leukocyte Esterase Ethyl Alcohol COVID-19 ([facility]) Negative COVID-19 Clin Com See Note Airway Mallampati Class: II TM Dist: >3cm Neck ROM: Full Heart: RrR Lungs: CTA Bl Assessment and Plan Assessment Anesthesia Assessment: Anesthesia Plan Discussed and Chart Reviewed Final Anesthetic Review NPO: Yes ASA Class: II Final Preanesthetic Review: No Changes in Pt Med Stat and Consent Obtained/Reviewed Patient Risk: Intermediate Procedure Risk: Intermediate Anesthetic Plan Anesthetic Plan: GA Disposition: Standard PACU
--- NOTE | 2020-11-30 10:31 | MHC.SHP ---
Pre-Procedural Eval Section A The patient is an INPATIENT: Yes Changes since office visit: Yes Patient answered all questions; No Cold of Flu in the past 2 weeks, No New Medical Problems and No Changes in Medication The History & Physical has been completed within 30 days and I have reviewed it.: Yes Section B Chief Complaint: SEVERE DEPRESSION Allergies: Allergies Allergy/AdvReac Type Severity Reaction Status Date / Time Sulfa (Sulfonamide Allergy Unknown UNKNOWN Unverified 05/28/20 19:34 Antibiotics) [SULFA (SULFONAMIDE ANTIBIOTICS)] zoster vaccine live Allergy Hives Verified 11/27/20 18:20 Plan I have reviewed the history and physical and performed a pertinent physical examination on my patient. No changes have occurred unless specified.
[2020-11-30] MEDS: QUEtiapine Fumarate 25 MG TABLET 12.5 MG PO ×2 (12:04→20:36)
[2020-11-30] MEDS: Lurasidone HCl 20 MG TABLET 10 MG PO (12:04)
[2020-11-30] MEDS: Famotidine 20 MG TABLET PO ×2 (12:05→20:35)
[2020-11-30] MEDS: Docusate Sodium 100 MG CAPSULE PO ×2 (12:05→20:35)
[2020-11-30 14:37] LABS: Vitamin D 25-OH, D2 <4 ng/mL; Vitamin D 25-OH, D3 33 ng/mL; Vitamin D 25-OH, Total 33 ng/mL (30-100)
[2020-11-30] MEDS: Acetaminophen 325 MG TABLET 650 MG PO (19:09)
[2020-11-30] MEDS: LORazepam 0.5 MG TABLET PO (20:34)
[2020-11-30] MEDS: Mirtazapine 15 MG TABLET PO (20:35)
[2020-11-30] MEDS: QUEtiapine Fumarate 25 MG TABLET 37.5 MG PO (20:36)
--- NOTE | 2020-12-01 04:52 | PC.NURSE ---
At 0400, during safety checks, t/w observed the pt to be sitting on the edge of his bed. Pt stated that he was having difficulty breathing. Before vital signs assessed pt stated that he needed to void and believed he could ambulate with assistance. Pt assisted to the bathroom. Post void pt became total assist to chair. O2 assessed to be 68 and respirations 32/min. Charge nurse provided O2 w/ nasal cannula. Pt became verbally unresponsive and rapid response called. At 0410, pt assessed by rapid response team. O2 increased to 97% with 3L O2. Pt verbally responsive but disoriented. Nursing case supervisor arranged [facility] Pt transferred from unit at 0425.
--- NOTE | 2020-12-01 10:08 | PM.PSYDC ---
DS: Providers Provider Date of Service: 12/01/20 Date of admission: 11/25/20 20:59 Date of discharge: 12/01/21 Primary care physician: Mary Cyr NP Admitting clinician: Blane Chowdhury Attending physician on admission: Blane Chowdhury Consults: 11/25/20 22:48 Consult to Hospitalist Routine Consulting Provider: Hospitalist Reason For Exam: preop for ect Attending physician on discharge: Blane Chowdhury Discharging clinician: Blane Chowdhury DS: Diagnosis Discharge Diagnosis (1) Bipolar I disorder with depression, severe: Status: Acute DS: Medications Discharge Medications Home Medications: Home Medications Medication Instructions Recorded Confirmed docusate sodium 100 mg capsule 1 cap PO BID PRN 11/25/20 12/31/20 (Stool Softener) nintedanib 150 mg capsule (Ofev) 150 mg PO BID 11/25/20 12/31/20 ondansetron 4 mg disintegrating 1 tab PO Q8H PRN 11/25/20 12/31/20 tablet Previous Rx's Medication Instructions Recorded ipratropium 0.5 mg-albuterol 3 mg 3 ml INHALATION Q4H PRN #1 ml 12/31/20 (2.5 mg base)/3 mL nebulization amina pendleton (Ultra-Light Rollator) #1 ea 03/02/21 Omeprazole Oral Susp [PriLOSEC 40 mg G-TUBE BID@0630,1630 60 Days 03/03/21 Oral Susp] #100 ml clotrimazole 1 % topical cream 1 appl TOPICAL BID 30 Days #30 g 03/03/21 dextroamphetamine-amphetamine 10 5 mg G-TUBE BID@0800,1300 30 Days 03/03/21 mg tablet #60 tab famotidine 20 mg tablet 20 mg G-TUBE DAILY 30 Days #30 tab 03/03/21 fluoxetine 20 mg/5 mL (4 mg/mL) 7.5 mg (1.875 mL) PO DAILY 30 Days 03/03/21 oral solution #56.25 ml hydrocortisone 5 mg tablet (Cortef) 5 mg PO . DIRECTED #120 tab 03/03/21 levalbuterol tartrate 45 2 puff INHALATION Q4-6H PRN #15 g 03/03/21 mcg/actuation aerosol inhaler loperamide 1 mg/7.5 mL oral liquid 2 mg (15 mL) G-TUBE Q6H PRN #120 03/03/21 (Imodium A-D) ml MDD 6 mg lorazepam 0.5 mg tablet 1 tab PO BID PRN 30 Days #60 tab 03/03/21 mirtazapine 7.5 mg tablet 7.5 mg G-TUBE BEDTIME 30 Days #30 03/03/21 tab ondansetron 4 mg disintegrating 4 mg TRANSLINGUAL BID PRN 30 Days 03/03/21 tablet #60 tab thiamine mononitrate (vit B1) 100 100 mg G-TUBE DAILY #30 tab 03/03/21 mg tablet Mental Status Exam Mental Status Exam Narrative: Unable to assess mental status at time of transfer DS: Summary Hospital Course Hospital Course: [address] [address] Psychiatry Admission Note (In)Signed Patient: Sai AzarMR#: [id number]: 1Acct:[id number]/Sex: 80 / MLoc:[id number]: Blane Chowdhury MD cc: ~ HPI Chief Complaint: SEVERE DEPRESSION Sources of Information: patient interviewed and chart reviewed HPI Subjective Notes: Conditional Voluntary Narrative: Of the patient is an 84-year-old male 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 He is failed multiple treatments including Lamictal Vraylar mirtazapine Wellbutrin became suicidally agitated Depakote Seroquel and Trintellix which cause severe nausea and lack of interest in food. Patient has become increasingly despondent difficulty getting out of bed taking care of his ADLs he was scheduled for outpatient ECT but was unable to get up the energy to do it. He has been having thoughts that he would be better off this is been going on for an extended period of time Past Psychiatric History: History of 3 prior psychiatric hospitalizations the last at [facility] he did have a course of ECT and briefly did maintenance. ECT was quite helpful but the patient had difficulty with side effects of nausea and headache. He has also failed a trial of ketamine Medical Evaluation Reviewed: Hospitalist Praveenaal Pending Patient with history of pulmonary fibrosis generally stable history of bladder cancer treated with infusions [facility] Medical History (Updated 11/29/20 @ 16:48 by Blane Chowdhury MD) Anemia Anxiety Bronchiectasis Cerebrovascular disease CHF (congestive heart failure) Chronic hyponatremia CKD (chronic kidney disease) stage 3, GFR 30-59 ml/min Degenerative arthritis Depression History of electroconvulsive therapy Hx of bladder cancer Hydrocele Pulmonary fibrosis Pulmonary fibrosis Surgical History History of bladder surgery Family History: Reportedly no history of bipolar disorder Social History: Patient is has children with whom he is close with 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 Substance History: None Trauma History: Trauma of being increasingly isolated and not responding to treatment over the past year Diagnostics Vital Signs (24Hr):Vital Signs - 24 hr 11/25/20 18:27 11/25/20 21:16 11/26/20 06:05 Temperature 98.4 F 97.7 F 97.7 F Pulse Rate 71 71 72 Respiratory Rate 16 17 18 Blood Pressure 106/61 124/71 118/67 Pulse Oximetry 95 97 94 11/26/20 13:00 Temperature 96.7 F L Pulse Rate 91 Respiratory Rate Blood Pressure 106/59 L Pulse Oximetry Body Mass Index 19.8 Labs Results: 11/28/20 14:38 document embedded image 11/28/20 14:38 document embedded image Labs:Laboratory Results - last 48 hr 11/25/20 11/25/20 11/25/20 15:35 15:42 15:42 WBC RBC Hgb Hct MCV MCH MCHC RDW Plt Count MPV Immature Gran % (Auto) Neut % (Auto) Lymph % (Auto) [place] % (Auto) Eos % (Auto) Baso % (Auto) Lymph # (Auto) [place] # (Auto) Eos # (Auto) Baso # (Auto) Abs Immat Gran (auto) Absolute Neuts (auto) Absolute Nucleated RBC Nucleated RBC % (auto) Sodium 133 L Potassium 5.3 H Chloride 99 Carbon Dioxide 26 Anion Gap 13 BUN 29 H Creatinine 1.38 Estim Creat Clear Calc 36.2 Estimated GFR 50 Random Glucose 103 Fasting Glucose Calcium 9.4 Total Bilirubin 0.6 Direct Bilirubin 0.2 AST 24 ALT 16 Alkaline Phosphatase 91 Total Protein 7.5 Albumin 3.8 Triglycerides Cholesterol LDL Cholesterol, Calc HDL Cholesterol Vitamin B12 TSH Urine Color YELLOW Urine Appearance CLEAR Urine pH 6.0 Ur Specific [place] 1.025 Urine Protein NEG Urine Glucose (UA) NEG Urine Ketones NEG Urine Blood NEG Urine Nitrite NEG Ur Leukocyte Esterase NEG Ethyl Alcohol < 10 COVID-19 ([facility]) COVID-19 Clin Com 11/25/20 11/25/20 11/26/20 15:43 16:37 07:42 WBC 9.1 RBC 4.13 L Hgb 13.1 L Hct 39.0 L MCV 94.4 MCH 31.7 MCHC 33.6 RDW 13.9 Plt Count 211 MPV 11.0 Immature Gran % (Auto) 0.3 Neut % (Auto) 56.1 Lymph % (Auto) 30.1 [place] % (Auto) 9.1 Eos % (Auto) 3.6 Baso % (Auto) 0.8 Lymph # (Auto) 2.7 [place] # (Auto) 0.8 Eos # (Auto) 0.3 Baso # (Auto) 0.1 Abs Immat Gran (auto) 0.03 Absolute Neuts (auto) 5.1 Absolute Nucleated RBC 0.000 Nucleated RBC % (auto) 0.0 Sodium 133 L Potassium 5.1 Chloride 98 Carbon Dioxide 29 Anion Gap 11 L BUN 29 H Creatinine 1.50 H Estim Creat Clear Calc 33.3 Estimated GFR 45 Random Glucose Fasting Glucose 100 H Calcium 9.5 Total Bilirubin 0.9 Direct Bilirubin AST 22 ALT 17 Alkaline Phosphatase 95 Total Protein 7.5 Albumin 3.9 Triglycerides 87 Cholesterol 216 LDL Cholesterol, Calc 148 HDL Cholesterol 51 Vitamin B12 TSH 2.21 Urine Color Urine Appearance Urine pH Ur Specific [place] Urine Protein Urine Glucose (UA) Urine Ketones Urine Blood Urine Nitrite Ur Leukocyte Esterase Ethyl Alcohol COVID-19 ([facility]) Negative COVID-19 Clin Com See Note 11/26/20 07:42 WBC RBC Hgb Hct MCV MCH MCHC RDW Plt Count MPV Immature Gran % (Auto) Neut % (Auto) Lymph % (Auto) [place] % (Auto) Eos % (Auto) Baso % (Auto) Lymph # (Auto) [place] # (Auto) Eos # (Auto) Baso # (Auto) Abs Immat Gran (auto) Absolute Neuts (auto) Absolute Nucleated RBC Nucleated RBC % (auto) Sodium Potassium Chloride Carbon Dioxide Anion Gap BUN Creatinine Estim Creat Clear Calc Estimated GFR Random Glucose Fasting Glucose Calcium Total Bilirubin Direct Bilirubin AST ALT Alkaline Phosphatase Total Protein Albumin Triglycerides Cholesterol LDL Cholesterol, Calc HDL Cholesterol Vitamin B12 773 TSH Urine Color Urine Appearance Urine pH Ur Specific [place] Urine Protein Urine Glucose (UA) Urine Ketones Urine Blood Urine Nitrite Ur Leukocyte Esterase Ethyl Alcohol COVID-19 ([facility]) COVID-19 Clin Com Meds/Allergies Meds Home Medications Acetaminophen (Acetaminophen 325 Mg Tablet) 650 mg PO Q6H PRN PRN Reason: Headache/Pain Mild Scale (1-3) Last Admin: 11/29/20 15:51 Dose: 650 mg Documented by: Al Hydroxide/Mg Hydroxide (Magnesium Hydrox/Alum Hydrox 30 Ml Oral.Susp) 30 ml PO Q6H PRN PRN Reason: Heartburn/Nausea Last Admin: 11/28/20 09:26 Dose: 30 ml Documented by: Docusate Sodium (Docusate Sodium 100 Mg Capsule) 100 mg PO BID [facility] Last Admin: 11/29/20 08:52 Dose: 100 mg Documented by: Famotidine (Famotidine 20 Mg Tablet) 20 mg PO BID [facility] Last Admin: 11/29/20 08:52 Dose: 20 mg Documented by: Hydroxyzine HCl (Hydroxyzine Hcl 25 Mg Tablet) 25 mg PO BEDTIME PRN PRN Reason: Anxiety Promethazine HCl 6.25 mg/ (Sodium Chloride) 50.25 mls @ 201 mls/hr IV ONCE PRN PRN Reason: Nausea and Vomiting Lorazepam (Lorazepam 0.5 Mg Tablet) 0.5 mg PO BEDTIME [facility] Last Admin: 11/28/20 21:27 Dose: 0.5 mg Documented by: Lorazepam (Lorazepam 0.5 Mg Tablet) 0.5 mg PO DAILY PRN PRN Reason: Anxiety Last Admin: 11/27/20 16:42 Dose: 0.5 mg Documented by: Lurasidone HCl (Lurasidone Hcl 20 Mg Tablet) 10 mg PO DAILY [facility] Last Admin: 11/29/20 08:52 Dose: 10 mg Documented by: Magnesium Hydroxide (Milk Of Magnesia 30 Ml Oral.Susp) 30 ml PO DAILY PRN PRN Reason: Constipation Mirtazapine (Mirtazapine 15 Mg Tablet) 15 mg PO BEDTIME [facility] Last Admin: 11/28/20 21:25 Dose: 15 mg Documented by: Pt Own Med: Nintedanib (Ofev) 150mg Cap 1 each PO Q12H [facility] Last Admin: 11/29/20 08:54 Dose: 1 each Documented by: Ondansetron HCl (Ondansetron Odt 4 Mg Tab.Rapdis) 4 mg TRANSLINGU Q8H PRN PRN Reason: nausea/vomiting Last Admin: 11/27/20 13:36 Dose: 4 mg Documented by: Quetiapine Fumarate (Quetiapine Fumarate 25 Mg Tablet) 37.5 mg PO BEDTIME [facility] Last Admin: 11/28/20 21:25 Dose: 37.5 mg Documented by: Quetiapine Fumarate (Quetiapine Fumarate 25 Mg Tablet) 12.5 mg PO BID [facility] Last Admin: 11/29/20 08:53 Dose: 12.5 mg Documented by: Allergies Allergies Allergy/AdvReac Type Severity Reaction Status Date / Time Sulfa (Sulfonamide Allergy Unknown UNKNOWN Unverified 05/28/20 19:34 Antibiotics) [SULFA (SULFONAMIDE ANTIBIOTICS)] zoster vaccine live Allergy Hives Verified 11/27/20 18:20 Mental Status Exam Mental Status Exam Patient Appearance: Disheveled Patient Orientation: Person, Place and Situation Level of Consciousness: Awake Patient Behavior: Appropriate, Cooperative and Passive Mood Description: Withdrawn and Depressed Affect Description: Depressed and Blunted Speech Pattern: Clear and Monotone Memory Description: Episodic Impaired Delusions: Not Present Thought Process: Rumination and Goal Oriented Thought Content: positive for [place], positive for Suicidal Ideation (Passive SI feels connected to family and but essentially nothing to live for) and negative for Homicidal Ideation Depressive Symptoms: Increased Anxiety, Diff. Making Decisions, Significant Weight Loss, Hopelessness, Thoughts of /Suicide, Loss of Energy and Difficulty Concentrating Assessment & Plan Assessment & Plan (1) Bipolar I disorder with depression, severe: Status: Acute Code(s): F31.4 - Bipolar disorder, current episode depressed, severe, without psychotic features Assessment and Plan: Patient admitted for course of ECT for treatment resistant depression with life-threatening lack of functioning eating despondent hopeless helpless he has responded to course of ECT previously risks benefits and alternatives reviewed with patient and his medical evaluation pre ECT he was recently determined by his outpatient turns to be stable for treatment despite pulmonary fibrosis concerns (2) Pulmonary fibrosis: Status: Acute Code(s): J84.10 - Pulmonary fibrosis, unspecified Patient educated on: diagnosis, medication risk/benefits and ECT Informed Consent: understands Reason for continued inpatient stay Substantial Risk for: harm to self, inability to function, rapid decompensation and med/psych decompensation Hospital course The [facility] depressed despondent not functioning at home with complex medical condition pulmonary fibrosis. Patient was admitted secondary to worsening depression poor nutrition and thoughts of suicide. There was not extensive discussion with the patient and the patient's regarding risks benefits of ECT particularly with his pulmonary fibrosis. Patient had history of bipolar depression he did not respond to other medical treatments and ultimately a decision was made understanding that the patient was at increase risk of complications with ECT given his respiratory status status but had tolerated this previously in the past. Was felt worth it as a potentially life-saving and quality of life treatment. Patient was noted medically have pulmonary fibrosis history of mild cerebrovascular disease hyponatremia is chronic kidney disease. Allergies noted to sulfa. EKG showed no ischemic changes internal medicine risk stratification felt that he was reasonable risks for the ECT procedure. The patient was continued on a lorazepam 0.5 mg scheduled 0.5 mg p.r.n. Latuda 10 mg daily mirtazapine 15 mg at bedtime Ofev 150 b.i.d. quetiapine 37.5 mg bedtime. Patient's hct 39 white count 9.1 sodium 133 potassium 5.1 FBS 100 calcium 9.5 B12 773 TSH 2.21 COVID negative. The patient was treated with electroconvulsive therapy after discussion with the patient and his giving his marked lack of quality of life non response to other treatments. On 11/27 and he was treated bitemporally which he had required previously. 0.25 program pulse with 100% energy initial seizure [id number] seconds on 12/01 28 seconds he was treated with etomidate 12 mg succinylcholine succinylcholine 100 mg he was treated with bag-mask ventilation appear to tolerate the procedure well. Patient was transferred back up to the psychiatric floor in no apparent distress. On the morning after November 30 ECT on the morning of December 01 the patient became somewhat uptight undid hypoxic and minimally febrile on walking back from the bathroom to his bed. Rapid response was called was unclear exactly why the patient had this event there was a question of aspiration. He was transferred to the [facility] for further medical workup and stabilization. Dr. Chairez had been part of the rapid response. Plan to medically stabilize and then re-evaluate transfer back to the psychiatric unit. The event was somewhat confusing the patient was well oxygenated and alert on the day of both ECTs did not appear to be an immediate postoperative event. Time Spent with Patient Time attestation: Total time spent providing and/or coordinating discharge services: Discharge Plan Discharge Patient Disposition: Xfer Acute Care Hospital Discharge Diagnosis: Bipolar disorder depressed subtype severe Pulmonary fibrosis Rule out pneumonia rule out sepsis at time of transfer Hypoxia Chronic kidney disease Referrals: Mary Cyr CONTRACT DESIGN AGENT [Primary Care Provider] - Discharge Medications: No Action (DME) Ultra-Light Rollator Misc See Rx Instructions .ROUTE .MEDSUPPLY Qty: 1 0RF Rx Instructions: As directed dextroamphetamine-amphetamine 10 mg Tablet 5 mg G-tube BID@0800,1300 30 Days Qty: 60 0RF mirtazapine 7.5 mg Tablet 7.5 mg G-tube BEDTIME 30 Days Qty: 30 2RF famotidine 20 mg Tablet 20 mg G-tube DAILY 30 Days Qty: 30 0RF loperamide [Imodium A-D] 1 mg/7.5 mL Liquid 2 mg G-tube Q6H MDD 6 mg PRN (Reason: Diarrhea) Qty: 120 0RF ondansetron 4 mg Tablet,Disintegrating 4 mg translingual BID PRN (Reason: Nausea And Vomiting) 30 Days Qty: 60 0RF hydrocortisone [Cortef] 5 mg tablet 5 mg PO . DIRECTED Qty: 120 0RF Rx Instructions: 2 tabs in the am 1 tab at 1 pm 1/2 tab at 530 lorazepam 0.5 mg tablet 1 tab PO BID PRN (Reason: anxiety) 30 Days Qty: 60 2RF fluoxetine 20 mg/5 mL (4 mg/mL) Solution 7.5 mg PO DAILY 30 Days Qty: 56.25 0RF clotrimazole 1 % Cream 1 appl topical BID 30 Days Qty: 30 0RF Protocol: Apply to: Apply to: groin area thiamine mononitrate (vit B1) 100 mg Tablet 100 mg G-tube DAILY Qty: 30 0RF Omeprazole Oral Susp [Prilosec Oral Susp] 40 mg G-tube BID@0630,1630 60 Days Qty: 100 0RF levalbuterol tartrate 45 mcg/actuation HFA aerosol inhaler 2 puff inhalation Q4-6H PRN (Reason: shortness of breath) Qty: 15 3RF docusate sodium [Stool Softener] 100 mg capsule 1 cap PO BID PRN (Reason: constipation) 0RF ondansetron 4 mg tablet,disintegrating 1 tab PO Q8H PRN (Reason: nausea/vomiting) 0RF Ofev 150 mg capsule 150 mg PO BID 0RF Rx Instructions: takes with protein ipratropium-albuterol 0.5 mg-3 mg(2.5 mg base)/3 mL Solution For Nebulization 3 ml inhalation Q4H PRN (Reason: sob) Qty: 1 0RF Discharge Orders: Discharge Order (Routine); Ordered 12/01/20 Ordered By: Christina Ram Diet: other Activity on Discharge: Rest with bed elevated Care Plan Goals: Stabilize mood Stabilize medical condition Improved nutrition Health Concerns: Bipolar 1 depressed severe Pulmonary fibrosis Pneumonia question sepsis Plan of Treatment: Transfer to [facility] for medical care Assessment: Patient medically unstable transferred to [facility] Discharge Date/Time: 12/01/20 05:11
== END 2020-12-01 05:11 | disposition short-term general hospital (02) | DRG 885 ==
LOC: HO.ED 21:08 → HO.PM5 21:10
PROVIDERS: Social Worker; Admitting Provider Psychiatry & Neurology Psychiatry; Emergency Provider Physician Assistant; PCP Nurse Practitioner Family; Visit Provider Psychiatry & Neurology Psychiatry
PROC: GZB4ZZZ Other Electroconvulsive Therapy (ICD-10-PCS; CPT 90870; principal; 2020-11-27 09:30)
PROC: (CPT 90870; principal; 2020-11-30 11:00)
DX: F31.4 Bipolar disorder, current episode depressed, severe, without psychotic features (principal); J84.10 Pulmonary fibrosis, unspecified; N18.30 Chronic kidney disease, stage 3 unspecified; Z20.822 Contact with and (suspected) exposure to COVID-19; Z88.2 Allergy status to sulfonamides; Z79.899 Other long term (current) drug therapy
CPT/HCPCS: 36415; 80053; 80061; 80076; 80320; 81003; 82306; 82607; 84443; 85025; 87635; 90870; 93005; 99285; J0330; J1885; J2405

== ENCOUNTER 2020-12-01 05:12 | Inpatient (IN) | payer MEDICARE, OTHER, SELFPAY ==
[2020-12-01] VITALS (17 sets, daily range): BP systolic 78–137; BP diastolic 50–102; PULSE 66–119; RESP 15–32; TEMP 36.6–39.4; O2SAT 91–99; BMI 18.9
--- NOTE | ~2020-12-01 | XR_ITS ---
EXAMINATION: CHEST 1 VIEW CLINICAL INFORMATION: Shortness of breath. COMPARISON: 09/23/2019. TECHNIQUE: An AP view of the chest is provided. FINDINGS: The cardiac silhouette is not enlarged. The mediastinal and hilar contours are unremarkable. There are neither pleural effusions nor pneumothoraces. There is an area of rounded patchy opacification within the right upper lung zone superimposed upon diffuse interstitial prominence throughout both lungs. The osseous structures are stable. XR/XR chest 1V IMPRESSION: There is an area of rounded patchy opacification within the right upper lung zone superimposed upon diffuse interstitial prominence throughout both lungs.
--- NOTE | ~2020-12-01 | CT_ITS ---
EXAMINATION: CT ANGIOGRAM OF THE CHEST WITH AND WITHOUT CONTRAST (CT PULMONARY ANGIOGRAM FOR PE) CLINICAL INFORMATION: Reason for Exam hypoxia, sob, elevated ddimer COMPARISON: Chest x-ray 12/01/2020, 09/23/2019 TECHNIQUE: Prior to contrast administration, noncontrast localization images were obtained. Subsequently, multidetector volumetric imaging was performed from the thoracic inlet to below the diaphragms following the administration of 61 mL Omnipaque 350 intravenous contrast. No contrast reaction reported Sagittal, coronal, and MIP oblique sagittal reformatted images were obtained on the CT workstation, uploaded to PACS, and reviewed. This CT examination was performed using dose optimization techniques as appropriate, variously including the following: *Automated exposure control *Adjustment of mA and/or kV according to patient size (this includes techniques or standardized protocols for targeted exams where dose is matched to indication/reason for exam; i.e. extremities or head) *Use of iterative reconstruction technique Total exam dose-length product 259 mGy-cm FINDINGS: QUALITY OF STUDY/CONTRAST BOLUS: Satisfactory. PULMONARY ARTERIES: No central or segmental pulmonary emboli. THORACIC AORTA: No aneurysm or dissection. LUNG: There is marked interstitial lung disease. There is honeycombing at lung bases with bronchiectasis involving the lower lobes greater in the upper lobes. There is diffuse interstitial thickening of the subpleural lung. Findings likely due to UIP. There is geographic areas of groundglass opacity in the pattern of crazy paving in the right upper lobe suggesting acute infection of atypical pneumonia, Covid 19. PLEURA: No pleural effusion or pneumothorax. MEDIASTINUM: Heart size is normal. No pericardial effusion. No hilar lymphadenopathy. There are borderline shotty lymph nodes in the pretracheal retrovascular space and AP window. These are likely reactive. No evidence of septal bowing or right heart strain. CHEST WALL/AXILLA: No axillary or internal mammary lymphadenopathy. OSSEOUS STRUCTURES: No acute or suspicious osseous abnormality. UPPER ABDOMEN: Unremarkable. No reflux of contrast into the hepatic veins to suggest elevated right heart pressures. CT/CT angio chest PE protocol IMPRESSION: 1. No evidence of pulmonary embolism. 2. Extensive interstitial lung disease likely UIP. 3. Focal peripheral airspace opacity in the right upper lobe. This is most consistent with atypical pneumonia, Covid 19. Clinically correlate. VTE: negative
--- NOTE | 2020-12-01 05:21 | PM.IMHP ---
History of Present Illness Date of Service: 12/01/20 Chief Complaint: Shortness of breath This is a 80-year-old male with past medical history of COPD, pulmonary fibrosis, CVA, CKD, depression, CHF, anxiety, who was admitted to [facility] for ECT, a rapid response was called on this patient around 4:30 a.m. due to sudden onset shortness of breath. Per staff patient was being ambulated from the bathroom to his bed but he became very weak, tachypneic, they checked his vitals and he was satting in the 70s. Currently placed on oxygen, with sats between mid 80s to low 90s. Patient reports a history of COPD, unaware of his history of CHF, other vitals were stable with blood pressure in the 144 over 70s, heart rate of 100-110s, and respiratory rate in the low 30s. Patient reports a cough, no sputum production, no fever or chills, no abdominal pain nausea or vomiting, no diarrhea constipation, no urinary symptoms and no lower extremity edema. He underwent a CT 2 days ago. At this time patient will be transferred to the medical floor, and further evaluation will be conducted Past medical as below and confirmed with patient Review of Systems Review of Systems: Yes all other systems are reviewed and are negative [facility] Medical History Anemia Anxiety Bronchiectasis Cerebrovascular disease CHF (congestive heart failure) Chronic hyponatremia CKD (chronic kidney disease) stage 3, GFR 30-59 ml/min Degenerative arthritis Depression History of electroconvulsive therapy Hx of bladder cancer Hydrocele Pulmonary fibrosis Pulmonary fibrosis Family History Father Colon cancer Surgical History History of bladder surgery Social History Household Members: Spouse Housing: Apartment Smoking Status: Never smoker Second Hand Smoke Exposure: No Substance Use Type: Marijuana Advance Directives: Yes Advance Directives on File: Yes Advance Directives Date on File: 11/27/20 service: No Sexual orientation: Straight/Heterosexual Meds Allergies Allergy/AdvReac Type Severity Reaction Status Date / Time Sulfa (Sulfonamide Allergy Unknown UNKNOWN Unverified 05/28/20 19:34 Antibiotics) [SULFA (SULFONAMIDE ANTIBIOTICS)] zoster vaccine live Allergy Hives Verified 11/27/20 18:20 Home Medications Medication Instructions Recorded Confirmed Last Taken Type docusate sodium [Stool Softener] 1 cap PO BID PRN 11/25/20 11/25/20 11/25/20 History lorazepam 1 tab PO BID PRN 11/25/20 11/25/20 11/25/20 History lurasidone [Latuda] 1 tab PO DAILY 11/25/20 11/25/20 11/25/20 History mirtazapine 1 tab PO BEDTIME 11/25/20 11/25/20 11/24/20 History nintedanib [Ofev] 150 mg PO BID 11/25/20 11/25/20 11/25/20 History ondansetron 1 tab PO Q8H PRN 11/25/20 11/25/20 Unknown History quetiapine 37.5 mg PO BEDTIME 11/25/20 11/25/20 11/24/20 History Physical Exam Const: General: cooperative and no acute distress Orientation/consciousness: patient oriented x3 Eyes: General: appearance normal, both eyes and all related structures Resp: Other: Tachypneic, some respiratory distress Cardio: Rate: regular rate Rhythm: regular rhythm GI: Palpation (GI): Soft to palpation Auscultation: normal bowel sounds Skin: General skin exam: no rashes or lesions noted Neuro: General: patient oriented x3 Cognition (Neuro): normal cognition Extrem: General: Yes normal to inspection and Yes no pedal edema Assessment and Plan (1) Acute respiratory failure with hypoxia: Status: Acute This is a gentleman with a history of COPD, CHF, pulmonary fibrosis who presented to the hospital initially admitted to [facility] for depression and ECT. Has sudden shortness of breath and hypoxia, and rapid response was called on him. Patient is now being transferred to medical floor and further evaluation will be conducted # acute hypoxic respiratory failure - unclear etiology, does not seem to be in CHF exacerbation, no clinical evidence of volume overload - will test him for COVID-19, will obtain a stat chest x-ray, BNP - stat CBC and BMP to rule out acute anemia - O2 supplement as required # CHF - does not appear to be in clinical exacerbation or volume overload - will obtain BNP and chest x-ray - currently not on any diuretics - a BNP elevated and or there is evidence of pulmonary congestion will start him on Lasix, obtain echo, cardiology consult DVT prophylaxis: Lovenox
[2020-12-01] MEDS: Acetaminophen 325 MG TABLET 650 MG PO (05:46)
[2020-12-01] MEDS: Enoxaparin Sodium 40 MG/0.4 ML SYRINGE SUBCUT (06:11)
[2020-12-01 06:16] LABS: MANUAL DIFF FLAG NO
[2020-12-01] MEDS: cefTRIAXone sodium 1 GM in 0.9 % Sodium Chloride 50 ML IV (06:38)
[2020-12-01 06:41] LABS: COVID-19 Test Negative (Negative)
[2020-12-01 06:46] LABS: Basophils Percent Auto 0.3 % (0-2); Eosinophils Absolute Auto 0.2 X10*3/uL (0.0-0.4); Eosinophils Percent Auto 1.1 % (0-4); Hematocrit 37.3 % (42-52); Hemoglobin 12.6 g/dl (14.0-18.0); Imm Gran Abs Auto 0.06 X10*3/uL (0.00-0.03); Imm Gran Pct Auto 0.4 % (0.0-0.4); Lymphocytes Percent Auto 7.1 % (20-40); Mean Corpuscular HGB Conc 33.8 g/dl (31.0-36.0); Mean Corpuscular Hemoglobin 31.8 pg (27.0-33.0); Mean Corpuscular Volume 94.2 fL (80-98); Mean Platelet Volume 11.4 fL (9.4-12.4); Monocytes Absolute Auto 1.3 X10*3/uL (0.1-1.2); Monocytes Percent Auto 8.9 % (2-11); Neutrophils Absolute Auto 11.8 X10*3/uL (2.0-8.3); Neutrophils Percent Auto 82.2 % (45-73); Platelet Count 214 X10*3/uL (160-400); Red Blood Count 3.96 X10*6/uL (4.60-5.80); White Blood Count 14.4 X10*3/uL (4.8-10.8)
[2020-12-01 06:48] LABS: D Dimer 2031 NG/ML
[2020-12-01 06:58] LABS: B Type Natriuretic Peptide 74 pg/mL (<100)
[2020-12-01 07:09] LABS: Anion Gap 14 (12-20); Blood Urea Nitrogen 36 mg/dL (9-16); C Reactive Protein 6.48 mg/dL (< or = 0.50); Calcium 9.5 mg/dL (8.4-10.2); Carbon Dioxide 27 mmol/L (22-29); Chloride 99 mmol/L (96-108); Creatinine Clr Calc Pharmacy 33.2; Estimated Glomerular Filt Rate 46; Glucose Random 94 mg/dL (60-115); Lactate Dehydrogenase 224 U/L (118-273); Potassium 4.9 mmol/L (3.3-5.1); Sodium 135 mmol/L (135-145)
[2020-12-01 07:13] LABS: Procalcitonin 1.01 ng/mL
[2020-12-01] MEDS: Lactated Ringers 500 ML 999 ML IVCONT ×2 (07:30→08:30)
[2020-12-01 07:44] LABS: Phosphorus 1.9 mg/dL (2.7-4.5)
[2020-12-01] MEDS: Azithromycin 500 MG in 0.9 % Sodium Chloride 250 ML 125 MG IV (08:08)
--- NOTE | 2020-12-01 08:25 | PM.EVENT ---
Event Note Date of Service: 12/01/20 Event Note: Called by RN for hypotension with systolic blood pressures in the 70s. Went to see patient. Focused Sepsis exam performed at about 07:30. Patient mentating well. Denies any symptoms. Severe sepsis likely due to aspiration pneumonia. Continue ceftriaxone and azithromycin bolus 30 cc/kilogram Griffin culture Check lactate
[2020-12-01 08:27] LABS: Lactic Acid 1.7 mmol/L (0.5-2.0)
--- NOTE | 2020-12-01 08:33 | MHC.CM.PN ---
CM met with Patient and spoke with /HCP/Mei @ [phone]. Patient lives with in an apartment and was receiving home PT through [facility] and using a cane, when he was last home.Patient came to the medical floor from [facility] floor, where Patient was receiving ECT treatments for Severe Depression. The goal for dc is for Patient to return to [facility] when medically cleared. CM has initiated and will follow for dc planning. IMM addressed with Mei (Patient appeared sleepy and not sure he was clearly understanding)and original will be mailed certified letter to Mei and a copy has been placed on the chart. PCP is LUKAS Cyr @ [phone].
[2020-12-01 08:38] LABS: Glucose Urine UA NEG (NEG); Leukocyte Esterase Urine NEG (NEG); Nitrite Urine NEG (NEG); PH 6.5 (5.0-8.0); Urine Blood NEG (NEG); Urine Ketones NEG (NEG); Urine Protein TRACE MG/DL (NEG-TRACE)
[2020-12-01 08:41] LABS: Appearance Urine CLEAR; Color Urine YELLOW
[2020-12-01] MEDS: Lactated Ringers 1,000 ML 200 ML IVCONT (10:30)
--- NOTE | 2020-12-01 12:21 | MHC.CLN ---
PT IS MODERATELY MALNOURISHED DIET RX 2GM NA -APPROPRIATE RECOMMEND ADDING ENSURE BID TO INCREASE KCALS SEE ALSO CLINICAL NUTRITION ASSESSMENT
--- NOTE | 2020-12-01 14:53 | HO.PM.IMPN ---
Subjective Subjective Date of Service: 12/01/20 Interval History: Feeling a bit weak but denies any specific symptoms Cardiovascular Cardiovascular: Reports no additional cardiovascular complaints Respiratory Respiratory: Reports no additional respiratory complaints Physical Exam Vital Signs: Vital Signs: Last Vital Signs Temp 97.9 F 12/01/20 11:50 Pulse 67 12/01/20 13:00 Resp 20 12/01/20 13:31 BP 103/61 12/01/20 13:31 Pulse Ox 98 12/01/20 13:00 Body Mass Index 18.9 General: lethargic O X 3, no acute distress, frail appearing Resp: right sided crackles CVS: S1,S2,RRR GI: soft, non tender, non distended Neuro: motor grossly weak Psych: flat affect Objective Data Current Medications Generic Name Dose Route Start Last Admin Trade Name Freq PRN Reason Stop Dose Admin Acetaminophen 650 mg 12/01/20 05:27 12/01/20 05:46 Acetaminophen 325 Mg Tablet PO 650 mg Q6H PRN Administration Pain, Mild (Pain Scale 1-3) Docusate Sodium 100 mg 12/01/20 05:27 Docusate Sodium 100 Mg Capsule PO DAILY PRN Constipation Enoxaparin Sodium 40 mg 12/01/20 06:00 12/01/20 06:11 Enoxaparin Sodium 40 Mg/0.4 Ml Syringe SUBCUT 40 mg Q24H DOMINICK Administration Ceftriaxone Sodium 1 gm/ 50 mls @ 100 mls/hr 12/01/20 07:00 12/01/20 10:35 Sodium Chloride IV Infused Q24H DOMINICK Infusion Azithromycin 500 mg/ Sodium 250 mls @ 125 mls/hr 12/01/20 08:00 12/01/20 10:37 Chloride IV Infused Q24H DOMINICK Infusion Lactated Ringer's 1,000 mls @ 70 mls/hr 12/01/20 10:30 12/01/20 12:33 Lr IVCONT 70 mls/hr .[id number] DOMINICK Infusion Lorazepam 0.5 mg 12/01/20 09:54 Lorazepam 0.5 Mg Tablet PO BID PRN anxiety Lurasidone HCl 20 mg 12/02/20 09:00 Lurasidone Hcl 20 Mg Tablet PO DAILY DOMINICK Mirtazapine 15 mg 12/01/20 21:00 Mirtazapine 15 Mg Tablet PO BEDTIME DOMINICK Pat Own Med ( 1 each 12/01/20 21:00 Nintedanib [Ofev] PO 150 Mg Capsule) BID DOMINICK Ondansetron HCl 4 mg 12/01/20 05:27 Ondansetron Hcl 4 Mg/2 Ml Vial IVPUSH Q8H PRN Nausea and Vomiting Ondansetron HCl 4 mg 12/01/20 09:54 Ondansetron Odt 4 Mg Tab.Rapdis TRANSLINGU Q8H PRN nausea/vomiting Quetiapine Fumarate 37.5 mg 12/01/20 21:00 Quetiapine Fumarate 25 Mg Tablet PO BEDTIME DOMINICK Sodium Chloride 3 ml 12/01/20 08:00 12/01/20 10:35 0.9 % Sodium Chloride Flush 3 Ml Syringe IVFLUSH Not Given QSHIFT DOMINICK Labs CBC & Chem 7: 12/01/20 05:54 12/01/20 05:54 Assessment and Plan (1) Severe sepsis: Status: Acute Assessment and Plan: 80M was admitted from inpatient psychiatry after episode of hypoxia. Patient had ECT on 11/27/2020. When patient got to medical floor was found to have severe sepsis with fever, tachycardia, hypotension. Lactic acid was normal. Sepsis exam was performed, blood cultures were taken. Patient received ceftriaxone for presumed diagnosis of aspiration pneumonia. He was given 30 cc/kilos of saline. Blood pressure initially remained in the 80s. Discussion was had with intensive care doctor. Given patient's unchanged mental status and overall not look that sick and normal lactate Decision was made to evaluate patient's perfusion by monitoring renal upper. Patient had Pineda catheter placed and put out 700 cc in an hour, clearly demonstrating perfusion. blood pressure then improved as well with systolics in the 100s. time spent on direct patient care 45 minutes
[2020-12-01] MEDS: Hydrocortisone Sod Succ/PF 100 MG VIAL 25 MG IVPUSH ×2 (16:00→23:27)
[2020-12-01] MEDS: 0.9 % Sodium Chloride Flush 3 ML SYRINGE IVFLUSH ×2 (16:02→20:46)
--- NOTE | 2020-12-01 18:09 | PC.NURSE ---
Addendum entered by Mary Anne Medina, RITA 12/02/20 10:20: Pt.'s 1st liter bolus of LR was hung at 0800 and ran at 999mL/hr, 2nd liter of LR was hung at approx. 1030 and ran at 999mL/hr as well Original Note: Pt. A+Ox2, slight confusion noted, hypotensive this morning with BP in 70s/50s, MD Marie notified and 2L LR bolus as ordered with BP improving slightly to 80s/50s, LR continued to run at 200mL/hr, pt. retaining >300mL in bladder, straight cath'd per MD order for UA and culture, gould later inserted as ordered for critical ouput monitoring, BP continued to improve to low 100s/60s, LR decreased to 70mL/hr, pt. brought down for CT, O2=2L NC, pt. more awake and alert as day progressed, ate all of dinner, resting in bed, at bedside, bed alarm on for safety
[2020-12-01] MEDS: Mirtazapine 15 MG TABLET PO (20:43)
[2020-12-01] MEDS: QUEtiapine Fumarate 25 MG TABLET 37.5 MG PO (20:43)
[2020-12-01] MEDS: Lactated Ringers 1,000 ML 70 ML IVCONT (20:47)
[2020-12-02 03:30] VITALS: BP 108/66; PULSE 75; RESP 17; TEMP 36.9; O2SAT 97
[2020-12-02] MEDS: Enoxaparin Sodium 40 MG/0.4 ML SYRINGE SUBCUT (05:30)
[2020-12-02 06:00] VITALS: BMI 20.3
[2020-12-02 06:24] LABS: MANUAL DIFF FLAG NO
[2020-12-02] MEDS: cefTRIAXone sodium 1 GM in 0.9 % Sodium Chloride 50 ML IV (06:29)
[2020-12-02 06:57] VITALS: BP 100/52; PULSE 65; RESP 20; TEMP 36.6; O2SAT 99
[2020-12-02 06:57] LABS: Basophils Percent Auto 0.1 % (0-2); Hematocrit 28.3 % (42-52); Hemoglobin 9.6 g/dl (14.0-18.0); Imm Gran Abs Auto 0.09 X10*3/uL (0.00-0.03); Imm Gran Pct Auto 0.6 % (0.0-0.4); Lymphocytes Absolute Auto 1.9 X10*3/uL (1.2-4.9); Lymphocytes Percent Auto 12.8 % (20-40); Mean Corpuscular HGB Conc 33.9 g/dl (31.0-36.0); Mean Corpuscular Hemoglobin 32.1 pg (27.0-33.0); Mean Corpuscular Volume 94.6 fL (80-98); Monocytes Absolute Auto 0.9 X10*3/uL (0.1-1.2); Monocytes Percent Auto 6.2 % (2-11); Neutrophils Absolute Auto 11.6 X10*3/uL (2.0-8.3); Neutrophils Percent Auto 80.3 % (45-73); Platelet Count 179 X10*3/uL (160-400); Red Blood Count 2.99 X10*6/uL (4.60-5.80); Red Cell Distribution Width 14.4 % (11.0-16.0); White Blood Count 14.5 X10*3/uL (4.8-10.8)
[2020-12-02 07:23] LABS: Anion Gap 14 (12-20); Blood Urea Nitrogen 23 mg/dL (9-16); Carbon Dioxide 22 mmol/L (22-29); Chloride 104 mmol/L (96-108); Creatinine Clr Calc Pharmacy 50.9; Estimated Glomerular Filt Rate > 60; Glucose Fasting 102 mg/dL (60-99); Potassium 5.3 mmol/L (3.3-5.1); Sodium 135 mmol/L (135-145)
[2020-12-02] MEDS: Azithromycin 500 MG in 0.9 % Sodium Chloride 250 ML 125 MG IV (07:46)
[2020-12-02] MEDS: 0.9 % Sodium Chloride Flush 3 ML SYRINGE IVFLUSH ×2 (07:46→16:46)
[2020-12-02 07:47] LABS: Calcium 8.4 mg/dL (8.4-10.2)
--- NOTE | 2020-12-02 09:45 | HO.PM.IMPN ---
Subjective Subjective Date of Service: 12/02/20 Interval History: Feeling much better today more clear-headed Cardiovascular Cardiovascular: Reports no additional cardiovascular complaints Gastrointestinal Gastrointestinal: Reports no additional gastrointestinal complaints Physical Exam Vital Signs: Vital Signs: Last Vital Signs Temp 97.9 F 12/02/20 06:57 Pulse 65 12/02/20 06:57 Resp 20 12/02/20 06:57 BP 100/52 L 12/02/20 06:57 Pulse Ox 99 12/02/20 06:57 Body Mass Index 20.3 General: lethargic O X 3, no acute distress, chills Resp: Crackles CVS: S1,S2,RRR GI: soft, non tender, non distended Neuro: motor grossly intact Psych: appropriate affect Objective Data Current Medications Generic Name Dose Route Start Last Admin Trade Name Freq PRN Reason Stop Dose Admin Acetaminophen 650 mg 12/01/20 05:27 12/01/20 05:46 Acetaminophen 325 Mg Tablet PO 650 mg Q6H PRN Administration Pain, Mild (Pain Scale 1-3) Docusate Sodium 100 mg 12/01/20 05:27 Docusate Sodium 100 Mg Capsule PO DAILY PRN Constipation Enoxaparin Sodium 40 mg 12/01/20 06:00 12/02/20 05:30 Enoxaparin Sodium 40 Mg/0.4 Ml Syringe SUBCUT 40 mg Q24H DOMINICK Administration Hydrocortisone Sodium Succinate 50 mg 12/02/20 09:04 Hydrocortisone Sod Succ/Pf 100 Mg Vial IVPUSH Q8H DOMINICK Ceftriaxone Sodium 1 gm/ 50 mls @ 100 mls/hr 12/01/20 07:00 12/02/20 07:14 Sodium Chloride IV Infused Q24H DOMINICK Infusion Azithromycin 500 mg/ Sodium 250 mls @ 125 mls/hr 12/01/20 08:00 12/02/20 07:46 Chloride IV 125 mls/hr Q24H DOMINICK Administration Lactated Ringer's 1,000 mls @ 70 mls/hr 12/01/20 10:30 12/02/20 07:15 Lr IVCONT 70 mls/hr .[id number] DOMINICK Infusion Lorazepam 0.5 mg 12/01/20 09:54 Lorazepam 0.5 Mg Tablet PO BID PRN anxiety Lurasidone HCl 20 mg 12/02/20 09:00 Lurasidone Hcl 20 Mg Tablet PO DAILY DOMINICK Mirtazapine 15 mg 12/01/20 21:00 12/01/20 20:43 Mirtazapine 15 Mg Tablet PO 15 mg BEDTIME DOMINICK Administration Pat Own Med ( 1 each 12/01/20 21:00 12/01/20 20:44 Nintedanib [Ofev] PO 1 each 150 Mg Capsule) BID DOMINICK Administration Ondansetron HCl 4 mg 12/01/20 05:27 Ondansetron Hcl 4 Mg/2 Ml Vial IVPUSH Q8H PRN Nausea and Vomiting Ondansetron HCl 4 mg 12/01/20 09:54 Ondansetron Odt 4 Mg Tab.Rapdis TRANSLINGU Q8H PRN nausea/vomiting Quetiapine Fumarate 37.5 mg 12/01/20 21:00 12/01/20 20:43 Quetiapine Fumarate 25 Mg Tablet PO 37.5 mg BEDTIME DOMINICK Administration Sodium Chloride 3 ml 12/01/20 08:00 12/02/20 07:46 0.9 % Sodium Chloride Flush 3 Ml Syringe IVFLUSH 3 ml QSHIFT DOMINICK Administration Labs CBC & Chem 7: 12/02/20 05:36 12/02/20 05:36 Assessment and Plan (1) Severe sepsis: Status: Acute Assessment and Plan: 80M was admitted from inpatient psychiatry after episode of hypoxia severe sepsis due to aspiration pneumonia complicated by acute hypoxic respiratory failure continue ceftriaxone and azithromycin last temp about 24 hours ago, continue to monitor, once afebrile 48hrs and cultures negative will change to po abx wean o2 as tolerated hypotension - still on low side but improving, urine output evidence of good perfusion, will dc gould, continue ivf fluids, empirically started on low dose solucortef incase any element of adrenal insufficiency. continues to require close monitoring of blood pressure pulmonary fibrosis continue ofev bipolar with depression latuda seroquel remeron once medically cleared follow up with psychiatry for disposition TERENCE on CKD III resolved with hydration dvt prophylaxis - lovenox
[2020-12-02] MEDS: Hydrocortisone Sod Succ/PF 100 MG VIAL 50 MG IVPUSH ×2 (09:49→16:46)
[2020-12-02] MEDS: Lurasidone HCl 20 MG TABLET PO (09:50)
[2020-12-02] MEDS: Lactated Ringers 1,000 ML 70 ML IVCONT ×2 (09:52→22:24)
[2020-12-02 11:25] VITALS: BP 117/61; PULSE 69; RESP 20; TEMP 36.6; O2SAT 96
--- NOTE | 2020-12-02 12:54 | MHC.CM.PN ---
Per Rounds discussion, Patient is not yet medically cleared for dc (2 IV ABT, IV Steroid, 3Lo2). M5 Psych Unit for continued ECT treatment (Severe Depression) is the goal for dc and CM will follow for possible need to adjust the dc plan.
--- NOTE | 2020-12-02 12:57 | MHC.CM.PN ---
ADDENDUM TO PREVIOUS NOTE- Patient has a 1:1 Sitter.
[2020-12-02] MEDS: polyethylene glycoL 3350 17 GM POWD.PACK PO (14:06)
[2020-12-02 15:04] VITALS: BP 116/64; PULSE 73; RESP 18; TEMP 36.9; O2SAT 96
--- NOTE | 2020-12-02 15:11 | PC.NURSE ---
LAURIE DCD AT 1000.DTV#1 1800.PT ENCOURAGED PO FLUID INTAKE. WILL MONITOR. PT REMOVED FROM O2.SATS96% R/A
--- NOTE | 2020-12-02 15:15 | PC.NURSE ---
PT REQUESTEDMIRALAX FOR BM.DR MENDOZA NOTIFIED, ORDERED AND GIVEN TO PT. RESULTS PENDING
--- NOTE | 2020-12-02 17:26 | PC.NURSE ---
PT VOIDED 350ML IN URINAL, BLOOD TINGED. DTV#[id number] MENDOZA AWARE OF RED TINGED URINE, POSSIBLE TRAUMA FROM [place]. WILL CONTINUE TO MONITOR
[2020-12-02] MEDS: Famotidine 20 MG TABLET PO (18:23)
[2020-12-02 19:04] VITALS: BP 133/83; PULSE 78; RESP 18; TEMP 37.1; O2SAT 96
[2020-12-02] MEDS: QUEtiapine Fumarate 25 MG TABLET 37.5 MG PO (22:23)
[2020-12-02] MEDS: Mirtazapine 15 MG TABLET PO (22:24)
[2020-12-02 23:39] VITALS: BP 91/54; PULSE 71; RESP 18; TEMP 36.9; O2SAT 92
[2020-12-03] MEDS: LORazepam 0.5 MG TABLET PO ×2 (01:09→21:27)
[2020-12-03] MEDS: Hydrocortisone Sod Succ/PF 100 MG VIAL 50 MG IVPUSH ×2 (01:09→08:57)
[2020-12-03 04:00] VITALS: BP 128/67; PULSE 72; RESP 18; TEMP 36.7; O2SAT 93
[2020-12-03] MEDS: Enoxaparin Sodium 40 MG/0.4 ML SYRINGE SUBCUT (06:44)
[2020-12-03] MEDS: cefTRIAXone sodium 1 GM in 0.9 % Sodium Chloride 50 ML IV (06:44)
[2020-12-03 07:10] LABS: MANUAL DIFF FLAG NO
[2020-12-03 07:15] LABS: Basophils Percent Auto 0.1 % (0-2); Hematocrit 28.7 % (42-52); Hemoglobin 9.7 g/dl (14.0-18.0); Imm Gran Abs Auto 0.09 X10*3/uL (0.00-0.03); Imm Gran Pct Auto 0.6 % (0.0-0.4); Lymphocytes Absolute Auto 1.5 X10*3/uL (1.2-4.9); Lymphocytes Percent Auto 9.7 % (20-40); Mean Corpuscular HGB Conc 33.8 g/dl (31.0-36.0); Mean Corpuscular Hemoglobin 31.9 pg (27.0-33.0); Mean Corpuscular Volume 94.4 fL (80-98); Mean Platelet Volume 11.4 fL (9.4-12.4); Monocytes Absolute Auto 0.5 X10*3/uL (0.1-1.2); Monocytes Percent Auto 3.5 % (2-11); Neutrophils Absolute Auto 12.9 X10*3/uL (2.0-8.3); Neutrophils Percent Auto 86.1 % (45-73); Platelet Count 196 X10*3/uL (160-400); Red Blood Count 3.04 X10*6/uL (4.60-5.80); Red Cell Distribution Width 14.6 % (11.0-16.0)
[2020-12-03 07:47] LABS: Anion Gap 13 (12-20); Blood Urea Nitrogen 24 mg/dL (9-16); Calcium 8.4 mg/dL (8.4-10.2); Carbon Dioxide 24 mmol/L (22-29); Chloride 108 mmol/L (96-108); Creatinine Clr Calc Pharmacy 51.9; Estimated Glomerular Filt Rate > 60; Glucose Fasting 118 mg/dL (60-99); Potassium 4.5 mmol/L (3.3-5.1); Sodium 140 mmol/L (135-145)
[2020-12-03] MEDS: Lurasidone HCl 20 MG TABLET PO (08:56)
[2020-12-03] MEDS: Famotidine 20 MG TABLET PO (08:56)
[2020-12-03] MEDS: Azithromycin 500 MG in 0.9 % Sodium Chloride 250 ML 125 MG IV (08:57)
[2020-12-03 11:37] VITALS: BP 124/68; PULSE 87; RESP 18; TEMP 37; O2SAT 96
--- NOTE | 2020-12-03 14:58 | HO.PM.IMPN ---
Subjective Subjective Date of Service: 12/03/20 Interval History: The patient was seen and evaluated this morning Laying in bed, feels comfortable Denies any fever, chills or shortness of breath No reported other overnight events. Systemic review: No fever, chills or weakness No chest pain, palpitation Reporting some cough, but no difficulty breathing No abdominal pain, nausea or vomiting No urinary symptoms No any rash or wounds Physical Exam Vital Signs: Vital Signs: Last Vital Signs Temp 98.6 F 12/03/20 11:37 Pulse 87 12/03/20 11:37 Resp 18 12/03/20 11:37 BP 124/68 12/03/20 11:37 Pulse Ox 96 12/03/20 11:37 Body Mass Index 20.3 Const: Other: Constitutional : Alert, oriented, not in distress Neck : Normal inspection, Supple Cardiovascular : RRR, S1 S2, no lower extremity edema Respiratory : Good bilateral air entry, bilateral bases crackles more on the right side, no wheezes or rhonchi Gastrointestinal: soft, lax, Normal bowel sounds, Non tender Skin : Warm/Dry, No rash Neurological : Alert & oriented x3, No focal deficit Objective Data Current Medications Generic Name Dose Route Start Last Admin Trade Name Freq PRN Reason Stop Dose Admin Acetaminophen 650 mg 12/01/20 05:27 12/01/20 05:46 Acetaminophen 325 Mg Tablet PO 650 mg Q6H PRN Administration Pain, Mild (Pain Scale 1-3) Docusate Sodium 100 mg 12/01/20 05:27 Docusate Sodium 100 Mg Capsule PO DAILY PRN Constipation Enoxaparin Sodium 40 mg 12/01/20 06:00 12/03/20 06:44 Enoxaparin Sodium 40 Mg/0.4 Ml Syringe SUBCUT 40 mg Q24H DOMINICK Administration Famotidine 20 mg 12/02/20 18:20 12/03/20 08:56 Famotidine 20 Mg Tablet PO 20 mg DAILY DOMINICK Administration Hydrocortisone Sodium Succinate 50 mg 12/02/20 09:04 12/03/20 08:57 Hydrocortisone Sod Succ/Pf 100 Mg Vial IVPUSH 50 mg Q8H DOMINICK Administration Ceftriaxone Sodium 1 gm/ 50 mls @ 100 mls/hr 12/01/20 07:00 12/03/20 07:24 Sodium Chloride IV Infused Q24H DOMINICK Infusion Azithromycin 500 mg/ Sodium 250 mls @ 125 mls/hr 12/01/20 08:00 12/03/20 11:46 Chloride IV Infused Q24H DOMINICK Infusion Lactated Ringer's 1,000 mls @ 70 mls/hr 12/01/20 10:30 12/03/20 09:08 Lr IVCONT 0 mls/hr .[id number] [facility]IN[facility] Infusion Lorazepam 0.5 mg 12/01/20 09:54 12/03/20 01:09 Lorazepam 0.5 Mg Tablet PO 0.5 mg BID PRN Administration anxiety Lurasidone HCl 20 mg 12/02/20 09:00 12/03/20 08:56 Lurasidone Hcl 20 Mg Tablet PO 20 mg DAILY DOMINICK Administration Mirtazapine 15 mg 12/01/20 21:00 12/02/20 22:24 Mirtazapine 15 Mg Tablet PO 15 mg BEDTIME DOMINICK Administration Pat Own Med ( 1 each 12/01/20 21:00 12/03/20 09:10 Nintedanib [Ofev] PO 1 each 150 Mg Capsule) BID DOMINICK Administration Ondansetron HCl 4 mg 12/01/20 05:27 Ondansetron Hcl 4 Mg/2 Ml Vial IVPUSH Q8H PRN Nausea and Vomiting Ondansetron HCl 4 mg 12/01/20 09:54 Ondansetron Odt 4 Mg Tab.Rapdis TRANSLINGU Q8H PRN nausea/vomiting Quetiapine Fumarate 37.5 mg 12/01/20 21:00 12/02/20 22:23 Quetiapine Fumarate 25 Mg Tablet PO 37.5 mg BEDTIME DOMINICK Administration Sodium Chloride 3 ml 12/01/20 08:00 12/03/20 11:46 0.9 % Sodium Chloride Flush 3 Ml Syringe IVFLUSH Not Given QSHIFT [facility] Labs CBC & Chem 7: 12/03/20 06:09 12/03/20 05:54 Microbiology Microbiology Results: Microbiology 12/01/20 07:55 Blood - Venous Blood Culture - Preliminary No growth after 48 hours. 12/01/20 07:52 Blood - Venous Blood Culture - Preliminary No growth after 48 hours. Assessment and Plan (1) Severe sepsis: Status: Acute Assessment and Plan: 80M was admitted from inpatient psychiatry after episode of hypoxia acute hypoxic respiratory failure severe sepsis due to aspiration pneumonia continue ceftriaxone and azithromycin Pending blood cultures, negative for 24 hours wean o2 as tolerated hypotension Improved but still on the lower side Discontinue ivf fluids Discontinue solucortef incase any element of adrenal insufficiency continues to require close monitoring of blood pressure pulmonary fibrosis continue ofev bipolar with depression latuda seroquel remeron once medically cleared follow up with psychiatry for disposition TERENCE on CKD III resolved with hydration dvt prophylaxis lovenox
[2020-12-03 15:10] VITALS: BP 120/84; PULSE 67; RESP 18; TEMP 36.6; O2SAT 96
[2020-12-03] MEDS: 0.9 % Sodium Chloride Flush 3 ML SYRINGE IVFLUSH ×2 (16:33→21:28)
[2020-12-03 19:07] VITALS: BP 127/76; PULSE 73; RESP 18; TEMP 36.9; O2SAT 96
[2020-12-03] MEDS: Mirtazapine 15 MG TABLET PO (21:26)
[2020-12-03] MEDS: Acetaminophen 325 MG TABLET 650 MG PO (21:27)
[2020-12-03] MEDS: QUEtiapine Fumarate 25 MG TABLET 37.5 MG PO (21:27)
[2020-12-03] MEDS: guaiFENesin DM 100/10/5 ML 5 ML SYRUP PO (22:57)
[2020-12-03 23:50] VITALS: BP 139/83; PULSE 70; RESP 18; TEMP 36.8; O2SAT 95
[2020-12-04 03:54] VITALS: BP 130/79; PULSE 79; RESP 18; TEMP 36.6; O2SAT 94
[2020-12-04 05:31] VITALS: BMI 20.6
[2020-12-04] MEDS: cefTRIAXone sodium 1 GM in 0.9 % Sodium Chloride 50 ML IV (06:31)
[2020-12-04 06:34] LABS: Anion Gap 13 (12-20); Blood Urea Nitrogen 25 mg/dL (9-16); Calcium 8.3 mg/dL (8.4-10.2); Carbon Dioxide 25 mmol/L (22-29); Chloride 105 mmol/L (96-108); Creatinine Clr Calc Pharmacy 54.7; Estimated Glomerular Filt Rate > 60; Glucose Random 79 mg/dL (60-115); Potassium 4.1 mmol/L (3.3-5.1); Sodium 139 mmol/L (135-145)
[2020-12-04 06:58] LABS: Hematocrit 28.3 % (42-52); Hemoglobin 9.4 g/dl (14.0-18.0); Mean Corpuscular HGB Conc 33.2 g/dl (31.0-36.0); Mean Corpuscular Hemoglobin 31.6 pg (27.0-33.0); Mean Corpuscular Volume 95.3 fL (80-98); Mean Platelet Volume 11.5 fL (9.4-12.4); Platelet Count 204 X10*3/uL (160-400); Red Blood Count 2.97 X10*6/uL (4.60-5.80); Red Cell Distribution Width 14.6 % (11.0-16.0); White Blood Count 15.3 X10*3/uL (4.8-10.8)
[2020-12-04] MEDS: 0.9 % Sodium Chloride Flush 3 ML SYRINGE IVFLUSH (07:06)
[2020-12-04] MEDS: Azithromycin 500 MG in 0.9 % Sodium Chloride 250 ML 125 MG IV (07:06)
[2020-12-04] MEDS: Famotidine 20 MG TABLET PO (07:51)
[2020-12-04] MEDS: Lurasidone HCl 20 MG TABLET PO (07:51)
[2020-12-04 08:00] VITALS: BP 110/64; PULSE 66; RESP 22; TEMP 36.8; O2SAT 95
--- NOTE | 2020-12-04 10:51 | PM.DS ---
DS: Providers Provider Date of Service: 12/04/20 Date of admission: 12/01/20 05:12 Primary care physician: Unknown Physician Consults: 12/01/20 05:28 Consult to Psychiatry Routine Consulting Provider: Maria Teresa Peter Reason for consultation: Depression, s/p ect Has provider been notified: No DS: Diagnosis Discharge Diagnosis (1) Severe sepsis: Status: Acute (2) Acute respiratory failure with hypoxia: Status: Acute (3) Pneumonia: Status: Acute (4) Pulmonary fibrosis: Status: Acute DS: Medications Discharge Medications Home Medications: Home Medications Medication Instructions Recorded Confirmed Latuda 1 tab PO DAILY 11/25/20 12/01/20 Ofev 150 mg PO BID 11/25/20 12/01/20 docusate sodium [Stool Softener] 1 cap PO BID PRN 11/25/20 12/01/20 lorazepam 1 tab PO BID PRN 11/25/20 12/01/20 mirtazapine 1 tab PO BEDTIME 11/25/20 12/01/20 ondansetron 1 tab PO Q8H PRN 11/25/20 12/01/20 quetiapine 37.5 mg PO BEDTIME 11/25/20 12/01/20 Previous Rx's Medication Instructions Recorded azithromycin 500 mg PO DAILY 4 Days #4 tab 12/04/20 benzonatate [Tessalon Perles] 100 mg PO TID 4 Days #12 cap 12/04/20 cefuroxime axetil 500 mg PO BID #8 tab 12/04/20 dextromethorphan-guaifenesin 10 ml PO Q6H 7 Days #280 ml 12/04/20 famotidine 20 mg PO DAILY #30 tab 12/04/20 DS: Summary Hospital Course Hospital Course: Admission note HPI This is a 80-year-old male with past medical history of COPD, pulmonary fibrosis, CVA, CKD, depression, CHF, anxiety, who was admitted to [facility] for ECT, a rapid response was called on this patient around 4:30 a.m. due to sudden onset shortness of breath. Per staff patient was being ambulated from the bathroom to his bed but he became very weak, tachypneic, they checked his vitals and he was satting in the 70s. Currently placed on oxygen, with sats between mid 80s to low 90s. Patient reports a history of COPD, unaware of his history of CHF, other vitals were stable with blood pressure in the 144 over 70s, heart rate of 100-110s, and respiratory rate in the low 30s. Patient reports a cough, no sputum production, no fever or chills, no abdominal pain nausea or vomiting, no diarrhea constipation, no urinary symptoms and no lower extremity edema. He underwent a CT 2 days ago. At this time patient will be transferred to the medical floor, and further evaluation will be conducted Hospital course The patient was admitted directly from the psych unit for acute hypoxic respiratory failure requiring oxygen supplement. Found to be in severe sepsis with chest x-ray concerning for atypical pneumonia picture. The patient was started on IV antibiotics of ceftriaxone and azithromycin with good response over the course of hospital stay as blood cultures remain negative. The patient was weaned of oxygen was able to ambulate maintaining his sats in 90s. Plan to discharge back to the psych unit on azithromycin and ceftriaxone. He was hypotensive at time of presentation with concern of severe sepsis. Received multiple IV fluid and started on hydrocortisone which where later discontinued as his blood pressure improved upon treatment of the pneumonia. Blood pressure within normal for the last 48 hours. Noticed to have mild Leonard I am to CKD which was recovered back to baseline. Time Spent with Patient Time attestation: Total time spent providing and/or coordinating discharge services: Discharge coordination time: Greater than 30 minutes Physical Exam Vital Signs: Vital Signs: Last Vital Signs Temp 98.3 F 12/04/20 08:00 Pulse 66 12/04/20 08:00 Resp 22 H 12/04/20 08:00 BP 110/64 12/04/20 08:00 Pulse Ox 95 12/04/20 08:00 Body Mass Index 20.6 Const: Other: Constitutional : Alert, oriented, not in distress Neck : Normal inspection, Supple Cardiovascular : RRR, S1 S2, no lower extremity edema Respiratory : Good bilateral air entry, bilateral bases crackles more on the right side, no wheezes or rhonchi Gastrointestinal: soft, lax, Normal bowel sounds, Non tender Skin : Warm/Dry, No rash Neurological : Alert & oriented x3, No focal deficit DS: Data Data Completed and Pending Completed studies during hospitalization [Text1]: Procedures Other Electroconvulsive Therapy (11/25/20) Labs on day of discharge: Laboratory Results - last 24 hr 12/03/20 12/04/20 12/04/20 05:55 05:30 05:30 WBC 15.3 H RBC 2.97 L Hgb 9.4 L Hct 28.3 L MCV 95.3 MCH 31.6 MCHC 33.2 RDW 14.6 Plt Count 204 MPV 11.5 Absolute Nucleated RBC 0.000 Nucleated RBC % (auto) 0.0 Sodium 139 Potassium 4.1 Chloride 105 Carbon Dioxide 25 Anion Gap 13 BUN 25 H Creatinine 0.98 Estim Creat Clear Calc 54.7 Estimated GFR > 60 Random Glucose 79 Calcium 8.3 L Cortisol 53.0 H Preliminary micro results at discharge 12/01/20 07:55 Blood Culture - Preliminary Blood - Venous No growth after 48 hours. 12/01/20 07:52 Blood Culture - Preliminary Blood - Venous No growth after 48 hours. Discharge Plan Discharge Patient Disposition: Xfer Psychiatric Hosp Referrals: [facility] M5 [Other] Physician,Unknown [Primary Care Provider] - Discharge Medications: New dextromethorphan-guaifenesin 10-100 mg/5 mL Syrup 10 ml PO Q6H 7 Days Qty: 280 RF: 0 famotidine 20 mg Tablet 20 mg PO DAILY Qty: 30 RF: 0 azithromycin 500 mg tablet 500 mg PO DAILY 4 Days Qty: 4 RF: 0 cefuroxime axetil 500 mg tablet 500 mg PO BID Qty: 8 RF: 0 benzonatate [Tessalon Perles] 100 mg capsule 100 mg PO TID 4 Days Qty: 12 RF: 0 Continued quetiapine 25 mg tablet 37.5 mg PO BEDTIME RF: 0 lorazepam 0.5 mg tablet 1 tab PO BID PRN (Reason: anxiety) RF: 0 docusate sodium [Stool Softener] 100 mg capsule 1 cap PO BID PRN (Reason: constipation) RF: 0 mirtazapine 15 mg tablet 1 tab PO BEDTIME RF: 0 ondansetron 4 mg tablet,disintegrating 1 tab PO Q8H PRN (Reason: nausea/vomiting) RF: 0 Latuda 20 mg tablet 1 tab PO DAILY RF: 0 Ofev 150 mg capsule 150 mg PO BID RF: 0 Discharge Orders: Discharge Order (Routine); Ordered 12/04/20 Ordered By: Wilbert Lewis Diet: advance to usual diet Activity on Discharge: As tolerated Stand Alone Forms: Patient Portal Discharge page Plan of Treatment: You were admitted to the hospital for evaluation of difficulty breathing. Found to have pneumonia which was treated with IV antibiotics and oxygen supplement with good response over the course of hospital stay. You were weaned off the oxygen. Continue azithromycin and Ceftin as prescribed To use cough medication
--- NOTE | 2020-12-04 10:53 | MHC.CM.PN ---
Per ROUNDS discussion, Patient is medically cleared to return today to [facility] Psychiatric Unit, pending bed availability. Second IMM to be addressed with and original will be mailed certified letter to her and a copy will be placed on the chart.
[2020-12-04 11:08] VITALS: BP 106/58; PULSE 68; RESP 22; TEMP 37.4; O2SAT 95
[2020-12-04] MEDS: Benzonatate 100 MG CAPSULE 200 MG PO (11:18)
[2020-12-04] MEDS: polyethylene glycoL 3350 17 GM POWD.PACK PO (11:18)
== END 2020-12-04 14:43 | DRG 871 ==
PROVIDERS: Internal Medicine; Admitting Provider Internal Medicine; PCP Nurse Practitioner Family; Visit Provider Student in an Organized Health Care Education/Training Program
DX: A41.9 Sepsis, unspecified organism (principal); J96.01 Acute respiratory failure with hypoxia; J69.0 Pneumonitis due to inhalation of food and vomit; N17.9 Acute kidney failure, unspecified; J84.10 Pulmonary fibrosis, unspecified; N18.30 Chronic kidney disease, stage 3 unspecified; F31.9 Bipolar disorder, unspecified; R65.20 Severe sepsis without septic shock; Z20.822 Contact with and (suspected) exposure to COVID-19; Z85.51 Personal history of malignant neoplasm of bladder; Z88.2 Allergy status to sulfonamides; Z79.899 Other long term (current) drug therapy
CPT/HCPCS: 36415; 71045; 71275; 80048; 81003; 82533; 82947; 83605; 83615; 83735; 83880; 84100; 84145; 85025; 85027; 85379; 86140; 87040; 87635; C1758; J0456; J0696; J1650; Q9967

== ENCOUNTER 2020-12-04 15:02 | Inpatient (IN) | payer MEDICARE, OTHER, SELFPAY ==
--- NOTE | ~2020-12-04 | CT_ITS ---
EXAMINATION: CT PULMONARY EMBOLISM STUDY CLINICAL INFORMATION: Shortness of breath. COMPARISON: 12/01/2020.. TECHNIQUE: Contiguous helical images of the chest were obtained following the administration of IV contrast. Multiplanar reconstructions were performed. MIPS were obtained and reviewed. DLP: 192 mGy-cm. CONTRAST: 65 mL of Omnipaque 350 were administered without incident. FINDINGS: The heart is of normal size. There is no pericardial effusion. The great vessels are unremarkable. Specifically, there is no pulmonary arterial filling defect. There is no CT evidence for pulmonary embolism. There are no chest wall masses. Review of lung windows demonstrates that there are neither pleural effusions nor pneumothoraces. Again identified are manifestations of extensive interstitial lung disease. There is subpleural cyst formation. There is superimposed ground glass opacification within the left lower lobe. Limited evaluation of the upper abdomen demonstrates that the liver is of normal size and attenuation without focal lesions. Normal adrenal glands are identified. CT/CT angio chest PE protocol IMPRESSION: No CT evidence for pulmonary embolism. Left lower lobe consolidation. Recommendation is for a followup chest series to be obtained following treatment and/or resolution of symptoms to assure resolution of this appearance. Interstitial lung disease. Automated exposure control (Care Dose) Adjustment of the mA and/or kv according to patient size (this includes techniques or standardized protocols for targeted exams where dose is matched to indication / reason for exam; i.e. extremities or head).
--- NOTE | ~2020-12-04 | XR_ITS ---
EXAMINATION: XR CHEST CLINICAL INFORMATION: Shortness of breath. Aspiration. Dysphagia. COMPARISON: Chest x-ray 12/21/2020, 12/05/2020, 09/23/2019. CT chest 12/01/2020 TECHNIQUE: Frontal portable view of the chest was obtained. 3:50 PM FINDINGS: Changes of marked interstitial lung disease. The hazy airspace opacities in the peripheral lung bilaterally has improved since prior study. There are likely still small opacities remaining left and right mid peripheral lung. There is no new airspace opacities. There is no pleural effusion or pneumothorax. Heart size is normal. Cardiac and mediastinal contours are normal. XR/XR chest 1V IMPRESSION: Improving bilateral airspace opacities. Chronic interstitial lung disease.
--- NOTE | ~2020-12-04 | XR_ITS ---
EXAMINATION: XR CHEST CLINICAL INFORMATION: Increasing oxygen requirement COMPARISON: Chest radiograph and CT angiogram of the chest dated 12/01/2020 TECHNIQUE: Frontal view of the chest was obtained. FINDINGS: Heart size is normal. Again seen are changes of marked interstitial lung disease, unchanged when compared to the prior study. There is a tiny amount of new blunting of the costophrenic angles which may represent trace pleural effusions. No new consolidations or pneumothorax is seen. XR/XR chest 1V IMPRESSION: Severe chronic interstitial lung disease stable when compared to the prior study. There are probably new small trace pleural effusions present
--- NOTE | ~2020-12-04 | FL_ITS ---
EXAMINATION: XR BARIUM SWALLOW CLINICAL INFORMATION: Rule out aspiration. COMPARISON: None TECHNIQUE: Routine modified barium swallow was performed with the patient in a left lateral seated position. The patient took thin, nectar, pureed and solid food consistencies of barium without difficulty. FINDINGS: The patient demonstrated normal oral bolus formation. There was a slight delay in the swallow trigger mechanism with moderate pooling of fluid in the vallecula. There was good contraction and elevation of the soft palate without evidence of nasopharyngeal reflux. There was good anterior-superior excursion of the laryngeal-hyoid complex with good posterior-inferior tipping of the epiglottis. No cricopharyngeal abnormalities were noted. The pharynx and cervical spine have a normal appearance. Transient penetration seen with thin and nectar consistency liquids. This is cleared to completion of swallow. No aspiration with any intake. FLUOROSCOPY TIME: 1.3 minutes DOSE AREA PRODUCT: 1.274 Gy-cm2 (root-centimeter squared) FL/FL barium swallow modified IMPRESSION: 1. No evidence of aspiration. Transient penetration with thin and nectar consistency. 2. Abnormalities of the oral and pharyngeal phase of swallowing as described above, with moderate vallecular retention. 3. Please see speech pathology report for specific recommendations and further information.
--- NOTE | ~2020-12-04 | XR_ITS ---
EXAMINATION: XR CHEST CLINICAL INFORMATION: Diffuse chest discomfort, greater on right. COMPARISON: Chest radiographs 12/05/2020, 12/01/2020, 09/23/2019; CTA chest 12/01/2020 TECHNIQUE: Supine portable AP view of the chest was obtained. FINDINGS: Patient is rotated to the left. Pulmonary opacities superimposed upon pulmonary fibrotic changes are similar to recent exams. There is no interval lobar or segmental airspace consolidation or effusion. The vascularity is normal. There is no visible pneumothorax in the supine position exam or definite pneumomediastinum. The heart is normal in size. No acute bony abnormality. XR/XR chest 1V IMPRESSION: Scattered pulmonary opacities superimposed upon interstitial fibrotic changes similar to recent exams.
--- NOTE | 2020-12-04 15:37 | HO.PSYADMNOT ---
HPI Chief Complaint: MAJOR DEPRESSION Sources of Information: patient interviewed and chart reviewed HPI Subjective Notes: Conditional Voluntary Narrative: FOR THE PATIENT [facility] AFTER THE PATIENT HAD BEEN ADMITTED SECONDARY TO A HYPOXIC EVENT HOURS AFTER HIS 1ST ECT. THERE APPEARED TO BE NO CORRELATION THE PATIENT CASE WAS REVIEWED WITH THE HOSPITALIST SERVICE AND WITH ANESTHESIA. CASE REVIEWED WITH DR. MENDOZA AND DR. Marina AND WITH Dr. Marie. The patient was treated for pneumonia stabilized and eventually switched to p.o. antibiotics. He was again cleared for ECT. Patient and his were seen while he was on the medical floor the patient's mood did seem to improve after his 1st ECT. He was admitted secondary to severe bipolar depression with intermittent suicidality increasing fatigue lack of functioning increased hopelessness helplessness and and the thought that the patient was passively committing suicide by not getting out of bed and minimally eating. he had responded to ECT in the past. Negative trials of Lamictal mirtazapine flaccid own Trintellix Wellbutrin Latuda Antonette Past Psychiatric History: History of 3 prior psychiatric hospitalizations the last at [facility] he did have a course of ECT and briefly did maintenance. ECT was quite helpful but the patient had difficulty with side effects of nausea and headache. He has also failed a trial of ketamine Medical Evaluation Reviewed: Yes Patient with history of pulmonary fibrosis recent pneumonia history of bladder [facility] Medical History Anemia Anxiety Bronchiectasis Cerebrovascular disease Chronic hyponatremia CKD (chronic kidney disease) stage 3, GFR 30-59 ml/min Degenerative arthritis Depression History of electroconvulsive therapy Hx of bladder cancer Hydrocele Pulmonary fibrosis Pulmonary fibrosis Surgical History History of bladder surgery Family History: Reportedly no history of bipolar disorder Social History: Patient is has children with whom he is close with 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 Trauma History: Trauma of being increasingly isolated and not responding to treatment over the past year Diagnostics Labs Results: 12/06/20 08:39 12/06/20 08:39 Meds/Allergies Meds Home Medications Acetaminophen (Acetaminophen 325 Mg Tablet) 650 mg PO Q6H PRN PRN Reason: Pain, Mild (Pain Scale 1-3) Last Admin: 12/05/20 16:07 Dose: 650 mg Documented by: Acetaminophen (Acetaminophen 325 Mg Tablet) 650 mg PO Q6H PRN PRN Reason: Headache/Pain Mild Scale (1-3) Al Hydroxide/Mg Hydroxide (Magnesium Hydrox/Alum Hydrox 30 Ml Oral.Susp) 30 ml PO Q6H PRN PRN Reason: Heartburn/Nausea Azithromycin (Azithromycin 500 Mg Tablet) 500 mg PO Q24H [facility] Stop: 12/11/20 20:01 Last Admin: 12/05/20 20:14 Dose: 500 mg Documented by: Budesonide (Budesonide 180 Mcg Aer.Pow.Ba) 2 puff INHALE RBID [facility] Last Admin: 12/06/20 12:05 Dose: 2 puff Documented by: Cefuroxime Axetil (Cefuroxime Axetil 500 Mg Tablet) 500 mg PO Q12H [facility] Stop: 12/09/20 08:01 Last Admin: 12/06/20 08:45 Dose: 500 mg Documented by: Docusate Sodium (Docusate Sodium 100 Mg Capsule) 100 mg PO DAILY PRN PRN Reason: Constipation Famotidine (Famotidine 20 Mg Tablet) 20 mg PO DAILY [facility] Last Admin: 12/06/20 08:45 Dose: 20 mg Documented by: Guaifenesin/Dextromethorphan (Guaifenesin Dm 100/10/5 Ml 5 Ml Syrup) 5 ml PO Q6H PRN PRN Reason: cough Hydroxyzine HCl (Hydroxyzine Hcl 25 Mg Tablet) 25 mg PO BEDTIME PRN PRN Reason: Anxiety Last Admin: 12/04/20 20:40 Dose: 25 mg Documented by: Lorazepam (Lorazepam 0.5 Mg Tablet) 0.5 mg PO BID PRN PRN Reason: anxiety Last Admin: 12/06/20 12:04 Dose: 0.5 mg Documented by: Lurasidone HCl (Lurasidone Hcl 20 Mg Tablet) 20 mg PO DAILY [facility] Last Admin: 12/06/20 08:45 Dose: 20 mg Documented by: Magnesium Hydroxide (Milk Of Magnesia 30 Ml Oral.Susp) 30 ml PO DAILY PRN PRN Reason: Constipation Mirtazapine (Mirtazapine 7.5 Mg Tablet) 7.5 mg PO BEDTIME [facility] Last Admin: 12/05/20 20:15 Dose: 7.5 mg Documented by: Non-Formulary Medication (Patient Own Medication) 1 each PO BID [facility] Last Admin: 12/06/20 08:45 Dose: 1 each Documented by: Ondansetron HCl (Ondansetron Odt 4 Mg Tab.Rapdis) 4 mg TRANSLINGU Q8H PRN PRN Reason: nausea/vomiting Ondansetron HCl (Ondansetron Hcl 4 Mg/2 Ml Vial) 4 mg IVPUSH Q8H PRN PRN Reason: Nausea and Vomiting Prednisone (Prednisone 20 Mg Tablet) 40 mg PO DAILY [facility] Stop: 12/08/20 09:01 Last Admin: 12/06/20 12:03 Dose: 40 mg Documented by: Quetiapine Fumarate (Quetiapine Fumarate 25 Mg Tablet) 37.5 mg PO BEDTIME [facility] Last Admin: 12/05/20 20:14 Dose: 37.5 mg Documented by: Allergies Allergies Allergy/AdvReac Type Severity Reaction Status Date / Time Sulfa (Sulfonamide Allergy Unknown UNKNOWN Verified 12/01/20 09:47 Antibiotics) [SULFA (SULFONAMIDE ANTIBIOTICS)] zoster vaccine live Allergy Hives Verified 12/01/20 09:47 Mental Status Exam Mental Status Exam Patient Appearance: Fatigued Patient Orientation: Person, Place and Situation Level of Consciousness: Alert Patient Behavior: Dependent, Cooperative, Passive, Timid, Anxious, Fearful, Fatigued and Confused Mood Description: Depressed and Anxious Affect Description: Flat Patient Cognition Impaired: Yes Ability to Follow Directions: Fair Speech Pattern: Perseverating, Spontaneous Speech and Soft-Spoken Memory Description: Episodic Impaired Hallucinations: None Delusions: Not Present Thought Process: Rumination Thought Content: positive for [place], positive for Circumstantial and positive for Perseveration Depressive Symptoms: Increased Anxiety, Loss of Int. in Activity, Hopelessness, Unhappiness, Increased Fatigue, Low Self Esteem, Loss of Energy and Difficulty Concentrating Judgement: Poor Assessment & Plan Assessment & Plan (1) Bipolar I disorder with depression, severe: Status: Acute Code(s): F31.4 - Bipolar disorder, current episode depressed, severe, without psychotic features (2) Pulmonary fibrosis: Status: Acute Code(s): J84.10 - Pulmonary fibrosis, unspecified Assessment and Plan: Patient readmitted plan for ECT hospitalist service to follow as required Patient educated on: diagnosis, medication risk/benefits and ECT Guardian/Caregiver educated on: diagnosis, medication risk/benefits and ECT Informed Consent: understands Reason for continued inpatient stay Substantial Risk for: inability to function and med/psych decompensation
[2020-12-04] MEDS: LORazepam 0.5 MG TABLET PO ×2 (16:42→20:41)
--- NOTE | 2020-12-04 19:42 | PC.NURSE ---
PT HAS ALREADY RECEIVED THE INFLUENZA VACCINE FOR THIS SEASON.
--- NOTE | 2020-12-04 19:43 | PC.ADMIT ---
PT IS A 80 YEAR OLD MALE WHO WAS ADMITTED TO FROM THE MEDICAL FLOOR AFTER BEING TRANSFERRED LAST WEEK. PT STATES THAT HE IS BACK BECAUSE HE ISN'T FINISHED YET . PT APPEARS TIRED AND NEEDS FREQUENT REMINDERS HE FORGETS WHAT HE WAS DOING EASILY. PT WAS CALM AND COOPERATIVE DURING THE ADMISSION PROCESS. PT DESCRIBED HIMSELF A GENTLE, KIND MAN . PT DENIES ALCOHOL USE. PT REPORTS THAT HE DOES USE MARIJUANA. PT IS NOT A TOBACCO USER. PT HAS ALREADY RECEIVED THE INFLUENZA VACCINE THIS SEASON. PT DENIES SI OR HI. PT REPORTS THAT HIS ANXIETY A 7/10 AND DEPRESSION A 7/10. PT MAKES GOOD EYE CONTACT WHEN SPEAKING. PT DID NOT SHOWER OR CHANGE HIS CLOTHING TODAY. PT LIVES AT HOME WITH HIS WHO SUPPORTS HIM STRONGLY. PT STATES THAT HE HAS NO DOMESTIC VIOLENCE HISTORY. PT STATES THAT HE GETS NERVOUS WHEN HE KNOWS WHAT IS GOING TO HAPPEN AHEAD OF TIME AND THAT HE IS SCARED FOR ECT. HE STATED THAT LAST TIME IT HELPED BUT NOT KNOWING WHO ANYONE IS WHEN YOU WAKE UP IS SCARY . 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 PT IS SLEEPING VERY WELL BUT FEELS LIKE HE IS ALWAYS TIRED. PT STATES THAT HE FEELS HE IS EATING WELL BUT NOT MUCH COMPARED TO SOME OF THE PEOPLE AROUND HERE . PT SAYS THAT HE HAS NOT FALLEN WITHIN THE PAST 6 MONTHS. HE DENIES A HISTORY OF PHYSICAL/SEXUAL TRAUMA.
[2020-12-04] MEDS: Mirtazapine 7.5 MG TABLET PO (20:35)
[2020-12-04] MEDS: QUEtiapine Fumarate 25 MG TABLET 37.5 MG PO (20:36)
[2020-12-04] MEDS: hydrOXYzine HCL 25 MG TABLET PO (20:40)
[2020-12-05] VITALS (7 sets, daily range): BP systolic 92–135; BP diastolic 52–86; PULSE 69–91; RESP 20–22; TEMP 36.6–37.7; O2SAT 71–99
[2020-12-05] MEDS: Lurasidone HCl 20 MG TABLET PO (08:53)
[2020-12-05] MEDS: Famotidine 20 MG TABLET PO (08:53)
[2020-12-05] MEDS: LORazepam 0.5 MG TABLET PO ×2 (09:01→20:15)
--- NOTE | 2020-12-05 15:34 | HO.PSYCHPN ---
Subjective Subjective Date of Service: 12/05/20 Reason For Visit: MAJOR DEPRESSION Diagnostics Vital Signs (24Hr): Vital Signs - 24 hr 12/05/20 07:07 12/05/20 13:00 Temperature 98.2 F 98.8 F Pulse Rate 91 Respiratory Rate 22 H Blood Pressure 122/86 118/62 Pulse Oximetry 94 Medications Medications Current Medications Generic Name Dose Route Start Last Admin Trade Name Freq PRN Reason Stop Dose Admin Acetaminophen 650 mg 12/04/20 15:34 Acetaminophen 325 Mg Tablet PO Q6H PRN Pain, Mild (Pain Scale 1-3) Acetaminophen 650 mg 12/04/20 15:37 Acetaminophen 325 Mg Tablet PO Q6H PRN Headache/Pain Mild Scale (1-3) Al Hydroxide/Mg Hydroxide 30 ml 12/04/20 15:37 Magnesium Hydrox/Alum Hydrox 30 Ml Oral.Susp PO Q6H PRN Heartburn/Nausea Cefuroxime Axetil 500 mg 12/05/20 08:00 12/05/20 08:53 Cefuroxime Axetil 500 Mg Tablet PO 12/09/20 08:01 500 mg Q12H DOMINICK Administration Docusate Sodium 100 mg 12/04/20 15:34 Docusate Sodium 100 Mg Capsule PO DAILY PRN Constipation Famotidine 20 mg 12/05/20 09:00 12/05/20 08:53 Famotidine 20 Mg Tablet PO 20 mg DAILY DOMINICK Administration Guaifenesin/Dextromethorphan 5 ml 12/04/20 15:34 Guaifenesin Dm 100/10/5 Ml 5 Ml Syrup PO Q6H PRN cough Hydroxyzine HCl 25 mg 12/04/20 15:37 12/04/20 20:40 Hydroxyzine Hcl 25 Mg Tablet PO 25 mg BEDTIME PRN Administration Anxiety Lorazepam 0.5 mg 12/04/20 15:34 12/05/20 09:01 Lorazepam 0.5 Mg Tablet PO 0.5 mg BID PRN Administration anxiety Lurasidone HCl 20 mg 12/05/20 09:00 12/05/20 08:53 Lurasidone Hcl 20 Mg Tablet PO 20 mg DAILY DOMINICK Administration Magnesium Hydroxide 30 ml 12/04/20 15:37 Milk Of Magnesia 30 Ml Oral.Susp PO DAILY PRN Constipation Mirtazapine 7.5 mg 12/04/20 21:00 12/04/20 20:35 Mirtazapine 7.5 Mg Tablet PO 7.5 mg BEDTIME DOMINICK Administration Non-Formulary Medication 1 each 12/04/20 21:00 12/05/20 09:04 Patient Own Medication PO 1 each BID DOMINICK Administration Ondansetron HCl 4 mg 12/04/20 15:34 Ondansetron Odt 4 Mg Tab.Rapdis TRANSLINGU Q8H PRN nausea/vomiting Ondansetron HCl 4 mg 12/04/20 15:34 Ondansetron Hcl 4 Mg/2 Ml Vial IVPUSH Q8H PRN Nausea and Vomiting Quetiapine Fumarate 37.5 mg 12/04/20 21:00 12/04/20 20:36 Quetiapine Fumarate 25 Mg Tablet PO 37.5 mg BEDTIME DOMINICK Administration Allergies Allergies Allergy/AdvReac Type Severity Reaction Status Date / Time Sulfa (Sulfonamide Allergy Unknown UNKNOWN Verified 12/01/20 09:47 Antibiotics) [SULFA (SULFONAMIDE ANTIBIOTICS)] zoster vaccine live Allergy Hives Verified 12/01/20 09:47 Assessment & Plan Greater than 50% of the session was spent on counseling and/or coordination of care
--- NOTE | 2020-12-05 15:40 | HO.PSYADMNOT ---
HPI Chief Complaint: MAJOR DEPRESSION HPI Past Psychiatric History: History of 3 prior psychiatric hospitalizations the last at [facility] he did have a course of ECT and briefly did maintenance. ECT was quite helpful but the patient had difficulty with side effects of nausea and headache. 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 Trauma History: Trauma of being increasingly isolated and not responding to treatment over the past year Diagnostics Vital Signs (24Hr): Vital Signs - 24 hr 12/05/20 07:07 12/05/20 13:00 Temperature 98.2 F 98.8 F Pulse Rate 91 Respiratory Rate 22 H Blood Pressure 122/86 118/62 Pulse Oximetry 94 Meds/Allergies Meds Home Medications Acetaminophen (Acetaminophen 325 Mg Tablet) 650 mg PO Q6H PRN PRN Reason: Pain, Mild (Pain Scale 1-3) Acetaminophen (Acetaminophen 325 Mg Tablet) 650 mg PO Q6H PRN PRN Reason: Headache/Pain Mild Scale (1-3) Al Hydroxide/Mg Hydroxide (Magnesium Hydrox/Alum Hydrox 30 Ml Oral.Susp) 30 ml PO Q6H PRN PRN Reason: Heartburn/Nausea Cefuroxime Axetil (Cefuroxime Axetil 500 Mg Tablet) 500 mg PO Q12H [facility] Stop: 12/09/20 08:01 Last Admin: 12/05/20 08:53 Dose: 500 mg Documented by: Docusate Sodium (Docusate Sodium 100 Mg Capsule) 100 mg PO DAILY PRN PRN Reason: Constipation Famotidine (Famotidine 20 Mg Tablet) 20 mg PO DAILY [facility] Last Admin: 12/05/20 08:53 Dose: 20 mg Documented by: Guaifenesin/Dextromethorphan (Guaifenesin Dm 100/10/5 Ml 5 Ml Syrup) 5 ml PO Q6H PRN PRN Reason: cough Hydroxyzine HCl (Hydroxyzine Hcl 25 Mg Tablet) 25 mg PO BEDTIME PRN PRN Reason: Anxiety Last Admin: 12/04/20 20:40 Dose: 25 mg Documented by: Lorazepam (Lorazepam 0.5 Mg Tablet) 0.5 mg PO BID PRN PRN Reason: anxiety Last Admin: 12/05/20 09:01 Dose: 0.5 mg Documented by: Lurasidone HCl (Lurasidone Hcl 20 Mg Tablet) 20 mg PO DAILY [facility] Last Admin: 12/05/20 08:53 Dose: 20 mg Documented by: Magnesium Hydroxide (Milk Of Magnesia 30 Ml Oral.Susp) 30 ml PO DAILY PRN PRN Reason: Constipation Mirtazapine (Mirtazapine 7.5 Mg Tablet) 7.5 mg PO BEDTIME [facility] Last Admin: 12/04/20 20:35 Dose: 7.5 mg Documented by: Non-Formulary Medication (Patient Own Medication) 1 each PO BID [facility] Last Admin: 12/05/20 09:04 Dose: 1 each Documented by: Ondansetron HCl (Ondansetron Odt 4 Mg Tab.Rapdis) 4 mg TRANSLINGU Q8H PRN PRN Reason: nausea/vomiting Ondansetron HCl (Ondansetron Hcl 4 Mg/2 Ml Vial) 4 mg IVPUSH Q8H PRN PRN Reason: Nausea and Vomiting Quetiapine Fumarate (Quetiapine Fumarate 25 Mg Tablet) 37.5 mg PO BEDTIME [facility] Last Admin: 12/04/20 20:36 Dose: 37.5 mg Documented by: Allergies Allergies Allergy/AdvReac Type Severity Reaction Status Date / Time Sulfa (Sulfonamide Allergy Unknown UNKNOWN Verified 12/01/20 09:47 Antibiotics) [SULFA (SULFONAMIDE ANTIBIOTICS)] zoster vaccine live Allergy Hives Verified 12/01/20 09:47
[2020-12-05] MEDS: Acetaminophen 325 MG TABLET 650 MG PO (16:07)
--- NOTE | 2020-12-05 17:03 | PC.NURSE ---
Pt at the start of shift on O2, 4L nasal cannula. Pt sat was 97. Pt c/o chest discomfort. Temp was 99.8. Pt was given Tylenol 650mg. 45 minutes later Pt's in to visit and Pt walked from his room down the orr with quite a bit of effort. Pt' s vitals were again taken and pt's Temp was 99.5, O2 sat was 93 with O2 and 90 with out O2. Pt resp were 20. Dr Chowdhury to speak with hospitalist regarding pt. Awaiting further instructions.
--- NOTE | 2020-12-05 18:16 | P.CONIM_ITS ---
History of Present Illness Data of Consult Service Date: 12/05/20 Primary Care Provider: Unknown Physician HPI Reason for consult: increased oxygen requirement a 80-year-old male with past medical history of COPD, pulmonary fibrosis, CVA, CKD, depression, CHF, anxiety, who was discharged from [facility] to the psych unit on December 04 after treatment for hypoxic respiratory failure and pneumonia noticed to increased oxygen requirement and episode of hypoxia. The patient reports feeling okay with little bit shortness of breath he noticed specially on ambulation. He denies any fever, chills, chest pain, nausea or vomiting. On the bedside he was taken off the oxygen noticed to maintain his oxygen level around 90-91% on room air. Rest of vitals within normal at that point. Review of Systems Review of Systems: No fever, chills or weakness No chest pain, palpitation No shortness of breath or coughing , feels breathing is a bit tighter No abdominal pain, nausea or vomiting No urinary symptoms No any rash or wounds PMFSH Medical History Anemia Anxiety Bronchiectasis Cerebrovascular disease Chronic hyponatremia CKD (chronic kidney disease) stage 3, GFR 30-59 ml/min Degenerative arthritis Depression History of electroconvulsive therapy Hx of bladder cancer Hydrocele Pulmonary fibrosis Pulmonary fibrosis Family History Father Colon cancer Surgical History History of bladder surgery Social History Household Members: Spouse Housing: House Do you presently have visiting nurse or other home services: Yes Smoking Status: Never smoker Second Hand Smoke Exposure: No Use of substances other than those prescribed or required for medical reasons: Yes Substance Use Type: Marijuana Substance Use Frequency: Daily Currently Displaying Signs/Symptoms of Drug Intoxication Withdrawal: No Any prior treatment program specific to substance use: No Have you been hit, kicked, punched, or otherwise hurt by someone within the past year? If so, by whom?: No Do you feel safe in your current relationship?: Yes Is there a partner from a previous relationship who is making you feel unsafe now?: No Are you made to feel afraid or neglected: No Advance Directives: No Advance Directives Information Provided: No Advance Directives on File: No Advance Directives Date on File: 11/27/20 Do you have thoughts of harming others: None Do you have a plan to hurt others: No Plan Recently lost weight without trying: No service: No Current occupational status: retired Sexual orientation: Straight/Heterosexual Meds Allergies Allergy/AdvReac Type Severity Reaction Status Date / Time Sulfa (Sulfonamide Allergy Unknown UNKNOWN Verified 12/01/20 09:47 Antibiotics) [SULFA (SULFONAMIDE ANTIBIOTICS)] zoster vaccine live Allergy Hives Verified 12/01/20 09:47 Active Medications: Current Medications Generic Name Dose Route Start Last Admin Trade Name Freq PRN Reason Stop Dose Admin Acetaminophen 650 mg 12/04/20 15:34 12/05/20 16:07 Acetaminophen 325 Mg Tablet PO 650 mg Q6H PRN Administration Pain, Mild (Pain Scale 1-3) Acetaminophen 650 mg 12/04/20 15:37 Acetaminophen 325 Mg Tablet PO Q6H PRN Headache/Pain Mild Scale (1-3) Al Hydroxide/Mg Hydroxide 30 ml 12/04/20 15:37 Magnesium Hydrox/Alum Hydrox 30 Ml Oral.Susp PO Q6H PRN Heartburn/Nausea Cefuroxime Axetil 500 mg 12/05/20 08:00 12/05/20 08:53 Cefuroxime Axetil 500 Mg Tablet PO 12/09/20 08:01 500 mg Q12H DOMINICK Administration Docusate Sodium 100 mg 12/04/20 15:34 Docusate Sodium 100 Mg Capsule PO DAILY PRN Constipation Famotidine 20 mg 12/05/20 09:00 12/05/20 08:53 Famotidine 20 Mg Tablet PO 20 mg DAILY DOMINICK Administration Guaifenesin/Dextromethorphan 5 ml 12/04/20 15:34 Guaifenesin Dm 100/10/5 Ml 5 Ml Syrup PO Q6H PRN cough Hydroxyzine HCl 25 mg 12/04/20 15:37 12/04/20 20:40 Hydroxyzine Hcl 25 Mg Tablet PO 25 mg BEDTIME PRN Administration Anxiety Lorazepam 0.5 mg 12/04/20 15:34 12/05/20 09:01 Lorazepam 0.5 Mg Tablet PO 0.5 mg BID PRN Administration anxiety Lurasidone HCl 20 mg 12/05/20 09:00 12/05/20 08:53 Lurasidone Hcl 20 Mg Tablet PO 20 mg DAILY DOMINICK Administration Magnesium Hydroxide 30 ml 12/04/20 15:37 Milk Of Magnesia 30 Ml Oral.Susp PO DAILY PRN Constipation Mirtazapine 7.5 mg 12/04/20 21:00 12/04/20 20:35 Mirtazapine 7.5 Mg Tablet PO 7.5 mg BEDTIME DOMINICK Administration Non-Formulary Medication 1 each 12/04/20 21:00 12/05/20 09:04 Patient Own Medication PO 1 each BID DOMINICK Administration Ondansetron HCl 4 mg 12/04/20 15:34 Ondansetron Odt 4 Mg Tab.Rapdis TRANSLINGU Q8H PRN nausea/vomiting Ondansetron HCl 4 mg 12/04/20 15:34 Ondansetron Hcl 4 Mg/2 Ml Vial IVPUSH Q8H PRN Nausea and Vomiting Quetiapine Fumarate 37.5 mg 12/04/20 21:00 12/04/20 20:36 Quetiapine Fumarate 25 Mg Tablet PO 37.5 mg BEDTIME DOMINICK Administration Home Medications Medication Instructions Recorded Confirmed Last Taken Type Latuda 1 tab PO DAILY 11/25/20 12/01/20 11/25/20 History Ofev 150 mg PO BID 11/25/20 12/01/20 11/25/20 History docusate sodium [Stool Softener] 1 cap PO BID PRN 11/25/20 12/01/20 11/25/20 History lorazepam 1 tab PO BID PRN 11/25/20 12/01/20 11/25/20 History mirtazapine 1 tab PO BEDTIME 11/25/20 12/01/20 11/24/20 History ondansetron 1 tab PO Q8H PRN 11/25/20 12/01/20 Unknown History quetiapine 37.5 mg PO BEDTIME 11/25/20 12/01/20 11/24/20 History Physical Exam Vital Signs and Narrative: Vital Signs: Last Vital Signs Temp 99.5 F 12/05/20 17:01 Pulse 90 12/05/20 17:01 Resp 20 12/05/20 17:01 BP 101/66 12/05/20 17:01 Pulse Ox 90 L 12/05/20 17:01 Const: Other: Constitutional : Alert, oriented, not in distress Neck : Normal inspection, Supple Cardiovascular : RRR, S1 S2, no lower extremity edema Respiratory : Good bilateral air entry, bilateral scattered crackles, wheezes or rhonchi Gastrointestinal: soft, lax, Normal bowel sounds, Non tender Skin : Warm/Dry, No rash Neurological : Alert & oriented x3, No focal deficit Assessment and Plan (1) Increased oxygen demand: Status: Acute (2) Pneumonia: Status: Acute (3) Pulmonary fibrosis: Status: Acute a 80-year-old male with past medical history of COPD, pulmonary fibrosis, CVA, CKD, depression, CHF, anxiety, who was discharged from [facility] to the psych unit on December 04 after treatment for hypoxic respiratory failure and pneumonia noticed to increased oxygen requirement. Recent Pneumonia Increased oxygen requirement To check chest x-ray Check CBC, BMP and BNP To give a dose of Lasix for now Incentive spirometry Thank you for the consult, will continue to monitor the patient with you as needed. Please contact hospitalist team for any question.
--- NOTE | 2020-12-05 18:28 | HO.PSYCHPN ---
Subjective Subjective Date of Service: 12/05/20 Reason For Visit: MAJOR DEPRESSION Subjective Notes: Conditional Voluntary Interim History: Significant anxiety this a.m. Telling team he was feeling like he was going to . Met with pt and completed some focused breathing exercises and guided meditation. Pt discussed his not wanting to have ECT on 12/07 as he was frightened-tells team he awakens to strangers which is frightening. Also, fears the process. Discussed that by history ECT has helped-he acknowledges and states family agrees with this. Given Lorazepam prn and by mid a.m. pt had low O2 saturation 80-75, 73. O2 at four liters initiated by team, consult with respiratory therapy, pt placed on 1:1. Consulted with Dr. Chowdhury regarding 12/07 ECT which will be held. Consult with hospitalist and Dr. Chowdhury. Pt will be medically followed. Per nursing he will sit up for meals and will sit or walk for 20 minutes after meals. Will get out of bed every 2 hours on both day and evening shifts and his 1:1 will assist with spirometer. Medication Compliance: Yes Side effects from medications: No Attending Groups: No Review of Systems Cardiovascular: Reports dyspnea Respiratory: Reports chest congestion and Reports dyspnea Psychiatric: Reports anxiety, Reports depression and Reports panic attacks Mental Status Exam Mental Status Exam Patient Appearance: Appropriate Patient Orientation: Person, Place and Situation Level of Consciousness: Alert Patient Behavior: Anxious, Fearful, Fatigued and Good Eye Contact Mood Description: Depressed and Anxious Affect Description: Anxious and Flat Patient Cognition Impaired: No Ability to Follow Directions: Good Speech Pattern: Spontaneous Speech Memory Description: Episodic Impaired Hallucinations: None Delusions: Not Present Thought Process: Distracted and Rumination Thought Content: positive for Perseveration Depressive Symptoms: Increased Anxiety Judgement: Fair Diagnostics Vital Signs (24Hr): Vital Signs - 24 hr 12/05/20 07:07 12/05/20 13:00 12/05/20 16:59 Temperature 98.2 F 98.8 F 99.8 F Pulse Rate 91 78 Respiratory Rate 22 H Blood Pressure 122/86 118/62 124/64 Pulse Oximetry 94 97 12/05/20 17:01 Temperature 99.5 F Pulse Rate 90 Respiratory Rate 20 Blood Pressure 101/66 Pulse Oximetry 90 L Medications Medications Current Medications Generic Name Dose Route Start Last Admin Trade Name Freq PRN Reason Stop Dose Admin Acetaminophen 650 mg 12/04/20 15:34 12/05/20 16:07 Acetaminophen 325 Mg Tablet PO 650 mg Q6H PRN Administration Pain, Mild (Pain Scale 1-3) Acetaminophen 650 mg 12/04/20 15:37 Acetaminophen 325 Mg Tablet PO Q6H PRN Headache/Pain Mild Scale (1-3) Al Hydroxide/Mg Hydroxide 30 ml 12/04/20 15:37 Magnesium Hydrox/Alum Hydrox 30 Ml Oral.Susp PO Q6H PRN Heartburn/Nausea Cefuroxime Axetil 500 mg 12/05/20 08:00 12/05/20 08:53 Cefuroxime Axetil 500 Mg Tablet PO 12/09/20 08:01 500 mg Q12H DOMINICK Administration Docusate Sodium 100 mg 12/04/20 15:34 Docusate Sodium 100 Mg Capsule PO DAILY PRN Constipation Famotidine 20 mg 12/05/20 09:00 12/05/20 08:53 Famotidine 20 Mg Tablet PO 20 mg DAILY DOMINICK Administration Guaifenesin/Dextromethorphan 5 ml 12/04/20 15:34 Guaifenesin Dm 100/10/5 Ml 5 Ml Syrup PO Q6H PRN cough Hydroxyzine HCl 25 mg 12/04/20 15:37 12/04/20 20:40 Hydroxyzine Hcl 25 Mg Tablet PO 25 mg BEDTIME PRN Administration Anxiety Lorazepam 0.5 mg 12/04/20 15:34 12/05/20 09:01 Lorazepam 0.5 Mg Tablet PO 0.5 mg BID PRN Administration anxiety Lurasidone HCl 20 mg 12/05/20 09:00 12/05/20 08:53 Lurasidone Hcl 20 Mg Tablet PO 20 mg DAILY DOMINICK Administration Magnesium Hydroxide 30 ml 12/04/20 15:37 Milk Of Magnesia 30 Ml Oral.Susp PO DAILY PRN Constipation Mirtazapine 7.5 mg 12/04/20 21:00 12/04/20 20:35 Mirtazapine 7.5 Mg Tablet PO 7.5 mg BEDTIME DOMINICK Administration Non-Formulary Medication 1 each 12/04/20 21:00 12/05/20 09:04 Patient Own Medication PO 1 each BID DOMINICK Administration Ondansetron HCl 4 mg 12/04/20 15:34 Ondansetron Odt 4 Mg Tab.Rapdis TRANSLINGU Q8H PRN nausea/vomiting Ondansetron HCl 4 mg 12/04/20 15:34 Ondansetron Hcl 4 Mg/2 Ml Vial IVPUSH Q8H PRN Nausea and Vomiting Quetiapine Fumarate 37.5 mg 12/04/20 21:00 12/04/20 20:36 Quetiapine Fumarate 25 Mg Tablet PO 37.5 mg BEDTIME DOMINICK Administration Allergies Allergies Allergy/AdvReac Type Severity Reaction Status Date / Time Sulfa (Sulfonamide Allergy Unknown UNKNOWN Verified 12/01/20 09:47 Antibiotics) [SULFA (SULFONAMIDE ANTIBIOTICS)] zoster vaccine live Allergy Hives Verified 12/01/20 09:47 Assessment & Plan Assessment & Plan (1) Acute respiratory failure with hypoxia: Status: Acute Code(s): J96.01 - Acute respiratory failure with hypoxia (2) Increased oxygen demand: Status: Acute Code(s): R68.89 - Other general symptoms and signs (3) Bipolar I disorder with depression, severe: Status: Acute Code(s): F31.4 - Bipolar disorder, current episode depressed, severe, without psychotic features Greater than 50% of the session was spent on counseling and/or coordination of care Reason for contiued inpatient stay Substantial Risk for: med/psych decompensation
[2020-12-05] MEDS: Furosemide 40 MG TABLET PO (18:38)
--- NOTE | 2020-12-05 18:46 | PC.NURSE ---
PLAN OF CARE FOR SOB: 1. SEEN BY HOSPITALIST. 02 CHANGED TO 2L. 2. TO EAT MEALS SITTING UP. MONITOR FOR COUGH. 3. TO SIT UP OR WALK X 20 MINUTES AFTER MEAL. 4. OOB Q 2 H. TO WALK OR SIT UP ON DAY [facility]. 5. INCENTIVE SPIROMETER Q2 H ON DAY [facility]. 6. POSITION CHANGE Q 2 H AT HS. 7. VS ORDERED AND NEEDED. 8. MONITOR FOR C/O SOB.
--- NOTE | 2020-12-05 19:33 | PC.NURSE ---
Pt was seen by hospitalist, Dr. Lewis. ordered stat chest, portable and labe. Dr. Ruiz also ordered Lasix which was given. Pt denies Fever, chills,chest pain, nausea or vomiting. Pt does state he has SOB with ambulation. Chest x-ray remained the same as the one taken on 12/01/20. Pt is encouraged to eat sitting up and to drink water. Pt has O2 at 2L and his O2 sat was 99. Pt tired and is resting. Pt temp is 98.1.Pt denies body aches, discomfort.Pt did eat dinner. Pt med compliant.
[2020-12-05] MEDS: QUEtiapine Fumarate 25 MG TABLET 37.5 MG PO (20:14)
[2020-12-05] MEDS: Azithromycin 500 MG TABLET PO (20:14)
[2020-12-05] MEDS: Mirtazapine 7.5 MG TABLET PO (20:15)
--- NOTE | 2020-12-05 22:02 | PC.NURSE ---
Pt resting comfortably. Pt's v/s 135/74,p69, T97.9 Pt satting at 96% after returning from the bathroom. Pt med compliant. Pt took meds with applesauce which he felt he could swallow better. Pt denies pain, h/a/n/v,fever,chills. Pt sleepy. Pt breathing without difficulty. Resp 20 even and unlabored.
[2020-12-06] VITALS (7 sets, daily range): BP systolic 79–118; BP diastolic 52–73; PULSE 69–105; RESP 14–20; TEMP 36.4–37.2; O2SAT 91–96
--- NOTE | 2020-12-06 08:30 | HO.PSYCHPN ---
Subjective Subjective Date of Service: 12/06/20 Reason For Visit: MAJOR DEPRESSION Subjective Notes: Conditional Voluntary Interim History: ECT on hold due to sx exacerbation s/p pneumonia, chronic severe pulmonary fibrosis. Pt on 1:1 with O2 at 2-4 litres. Team reports SOB with exertion, able to sleep, currently on a toileting schedule for incontinence. Seen by hospitalist service-prednisone, budesonide initiated. PT ordered as well. Pt engaged with team for ambulation and discussion today. Depressive and anxious symptoms remain high-fear of ECT, anesthesia and recovery. Review of Systems Reports behavioral changes and Reports confusion Psychiatric: Reports anxiety, Reports behavioral changes, Reports confusion, Reports depression, Reports difficulty concentrating, Reports hopelessness and Reports anhedonia Mental Status Exam Mental Status Exam Patient Appearance: Fatigued Patient Orientation: Person, Place and Situation Level of Consciousness: Alert Patient Behavior: Dependent, Cooperative, Passive, Timid, Anxious, Fearful, Fatigued and Confused Mood Description: Depressed and Anxious Affect Description: Flat Patient Cognition Impaired: Yes Ability to Follow Directions: Fair Speech Pattern: Perseverating, Spontaneous Speech and Soft-Spoken Memory Description: Episodic Impaired Hallucinations: None Delusions: Not Present Thought Process: Rumination Thought Content: positive for [place], positive for Circumstantial and positive for Perseveration Depressive Symptoms: Increased Anxiety, Loss of Int. in Activity, Hopelessness, Unhappiness, Increased Fatigue, Low Self Esteem, Loss of Energy and Difficulty Concentrating Judgement: Poor Diagnostics Vital Signs (24Hr): Vital Signs - 24 hr 12/05/20 13:00 12/05/20 16:59 12/05/20 17:01 Temperature 98.8 F 99.8 F 99.5 F Pulse Rate 78 90 Respiratory Rate 22 H 20 Blood Pressure 118/62 124/64 101/66 Pulse Oximetry 94 97 90 L 12/05/20 18:51 12/05/20 19:27 12/05/20 22:06 Temperature 97.9 F 98.1 F 97.9 F Pulse Rate 72 70 69 Respiratory Rate 20 20 Blood Pressure 92/53 L 93/52 L 135/74 Pulse Oximetry 71 L 99 96 12/06/20 06:59 Temperature 98.7 F Pulse Rate 69 Respiratory Rate 16 Blood Pressure 118/53 L Pulse Oximetry 94 Labs Results: 12/06/20 08:39 12/06/20 08:39 Imaging Radiology Impressions: ITS Impressions Chest X-Ray 12/05/20 18:58 IMPRESSION: Severe chronic interstitial lung disease stable when compared to the prior study. There are probably new small trace pleural effusions present Medications Medications Current Medications Generic Name Dose Route Start Last Admin Trade Name Freq PRN Reason Stop Dose Admin Acetaminophen 650 mg 12/04/20 15:34 12/05/20 16:07 Acetaminophen 325 Mg Tablet PO 650 mg Q6H PRN Administration Pain, Mild (Pain Scale 1-3) Acetaminophen 650 mg 12/04/20 15:37 Acetaminophen 325 Mg Tablet PO Q6H PRN Headache/Pain Mild Scale (1-3) Al Hydroxide/Mg Hydroxide 30 ml 12/04/20 15:37 Magnesium Hydrox/Alum Hydrox 30 Ml Oral.Susp PO Q6H PRN Heartburn/Nausea Azithromycin 500 mg 12/05/20 20:00 12/05/20 20:14 Azithromycin 500 Mg Tablet PO 12/08/20 20:01 500 mg Q24H DOMINICK Administration Cefuroxime Axetil 500 mg 12/05/20 08:00 12/05/20 20:16 Cefuroxime Axetil 500 Mg Tablet PO 12/09/20 08:01 500 mg Q12H DOMINICK Administration Docusate Sodium 100 mg 12/04/20 15:34 Docusate Sodium 100 Mg Capsule PO DAILY PRN Constipation Famotidine 20 mg 12/05/20 09:00 12/05/20 08:53 Famotidine 20 Mg Tablet PO 20 mg DAILY DOMINICK Administration Guaifenesin/Dextromethorphan 5 ml 12/04/20 15:34 Guaifenesin Dm 100/10/5 Ml 5 Ml Syrup PO Q6H PRN cough Hydroxyzine HCl 25 mg 12/04/20 15:37 12/04/20 20:40 Hydroxyzine Hcl 25 Mg Tablet PO 25 mg BEDTIME PRN Administration Anxiety Lorazepam 0.5 mg 12/04/20 15:34 12/05/20 20:15 Lorazepam 0.5 Mg Tablet PO 0.5 mg BID PRN Administration anxiety Lurasidone HCl 20 mg 12/05/20 09:00 12/05/20 08:53 Lurasidone Hcl 20 Mg Tablet PO 20 mg DAILY DOMINICK Administration Magnesium Hydroxide 30 ml 12/04/20 15:37 Milk Of Magnesia 30 Ml Oral.Susp PO DAILY PRN Constipation Mirtazapine 7.5 mg 12/04/20 21:00 12/05/20 20:15 Mirtazapine 7.5 Mg Tablet PO 7.5 mg BEDTIME DOMINICK Administration Non-Formulary Medication 1 each 12/04/20 21:00 12/05/20 20:16 Patient Own Medication PO 1 each BID DOMINICK Administration Ondansetron HCl 4 mg 12/04/20 15:34 Ondansetron Odt 4 Mg Tab.Rapdis TRANSLINGU Q8H PRN nausea/vomiting Ondansetron HCl 4 mg 12/04/20 15:34 Ondansetron Hcl 4 Mg/2 Ml Vial IVPUSH Q8H PRN Nausea and Vomiting Quetiapine Fumarate 37.5 mg 12/04/20 21:00 12/05/20 20:14 Quetiapine Fumarate 25 Mg Tablet PO 37.5 mg BEDTIME DOMINICK Administration Allergies Allergies Allergy/AdvReac Type Severity Reaction Status Date / Time Sulfa (Sulfonamide Allergy Unknown UNKNOWN Verified 12/01/20 09:47 Antibiotics) [SULFA (SULFONAMIDE ANTIBIOTICS)] zoster vaccine live Allergy Hives Verified 12/01/20 09:47 Assessment & Plan Assessment & Plan (1) Bipolar I disorder with depression, severe: Status: Acute Code(s): F31.4 - Bipolar disorder, current episode depressed, severe, without psychotic features Assessment and Plan: -ECT currently on hold. (2) Acute respiratory failure with hypoxia: Status: Acute Code(s): J96.01 - Acute respiratory failure with hypoxia (3) Pulmonary fibrosis: Status: Acute Code(s): J84.10 - Pulmonary fibrosis, unspecified Greater than 50% of the session was spent on counseling and/or coordination of care Reason for contiued inpatient stay Substantial Risk for: inability to function, rapid decompensation and med/psych decompensation
[2020-12-06] MEDS: Famotidine 20 MG TABLET PO (08:45)
[2020-12-06] MEDS: Lurasidone HCl 20 MG TABLET PO (08:45)
[2020-12-06 08:48] LABS: Hematocrit 31.7 % (42-52); Hemoglobin 10.9 g/dl (14.0-18.0); Mean Corpuscular HGB Conc 34.4 g/dl (31.0-36.0); Mean Corpuscular Hemoglobin 32.2 pg (27.0-33.0); Mean Corpuscular Volume 93.5 fL (80-98); Mean Platelet Volume 10.6 fL (9.4-12.4); Platelet Count 235 X10*3/uL (160-400); Red Blood Count 3.39 X10*6/uL (4.60-5.80); Red Cell Distribution Width 14.3 % (11.0-16.0); White Blood Count 12.6 X10*3/uL (4.8-10.8)
[2020-12-06 09:19] LABS: Anion Gap 14 (12-20); Blood Urea Nitrogen 28 mg/dL (9-16); Calcium 8.2 mg/dL (8.4-10.2); Carbon Dioxide 26 mmol/L (22-29); Chloride 100 mmol/L (96-108); Estimated Glomerular Filt Rate 56; Glucose Random 92 mg/dL (60-115); Potassium 4.1 mmol/L (3.3-5.1); Sodium 136 mmol/L (135-145)
[2020-12-06 09:24] LABS: B Type Natriuretic Peptide 133 pg/mL (<100)
--- NOTE | 2020-12-06 11:08 | P.PNIM_ITS ---
Subjective Subjective Date of Service: 12/06/20 Interval History: the patient was seen and evaluated this morning Sitting on the chair, on 2 L of oxygen, feels comfortable over but reported dyspnea on exertion oximeter is not working the right way and could not get a good reading. Denies any fever, chills or shortness of breath at rest No reported other overnight events. Systemic review: No fever, chills or weakness No chest pain, palpitation No shortness of breath at rest or coughing No abdominal pain, nausea or vomiting No urinary symptoms No any rash or wounds Physical Exam Vital Signs: Vital Signs: Last Vital Signs Temp 97.6 F 12/06/20 09:00 Pulse 105 H 12/06/20 09:00 Resp 16 12/06/20 09:00 BP 79/52 L 12/06/20 09:00 Pulse Ox 91 L 12/06/20 09:00 Const: Other: Constitutional : Alert, oriented, not in distress Neck : Normal inspection, Supple Cardiovascular : RRR, S1 S2, no lower extremity edema Respiratory : Fair bilateral air entry decreased at the bases, bilateral bases fine crackles, no wheezes or rhonchi Gastrointestinal: soft, lax, Normal bowel sounds, Non tender Skin : Warm/Dry, No rash Neurological : Alert & oriented x3, No focal deficit Objective Data Current Medications Generic Name Dose Route Start Last Admin Trade Name Freq PRN Reason Stop Dose Admin Acetaminophen 650 mg 12/04/20 15:34 12/05/20 16:07 Acetaminophen 325 Mg Tablet PO 650 mg Q6H PRN Administration Pain, Mild (Pain Scale 1-3) Acetaminophen 650 mg 12/04/20 15:37 Acetaminophen 325 Mg Tablet PO Q6H PRN Headache/Pain Mild Scale (1-3) Al Hydroxide/Mg Hydroxide 30 ml 12/04/20 15:37 Magnesium Hydrox/Alum Hydrox 30 Ml Oral.Susp PO Q6H PRN Heartburn/Nausea Azithromycin 500 mg 12/05/20 20:00 12/05/20 20:14 Azithromycin 500 Mg Tablet PO 12/11/20 20:01 500 mg Q24H DOMINICK Administration Budesonide 2 puff 12/06/20 10:21 Budesonide 180 Mcg Aer.Pow.Ba INHALE RBID DOMINICK Cefuroxime Axetil 500 mg 12/05/20 08:00 12/06/20 08:45 Cefuroxime Axetil 500 Mg Tablet PO 12/09/20 08:01 500 mg Q12H DOMINICK Administration Docusate Sodium 100 mg 12/04/20 15:34 Docusate Sodium 100 Mg Capsule PO DAILY PRN Constipation Famotidine 20 mg 12/05/20 09:00 12/06/20 08:45 Famotidine 20 Mg Tablet PO 20 mg DAILY DOMINICK Administration Guaifenesin/Dextromethorphan 5 ml 12/04/20 15:34 Guaifenesin Dm 100/10/5 Ml 5 Ml Syrup PO Q6H PRN cough Hydroxyzine HCl 25 mg 12/04/20 15:37 12/04/20 20:40 Hydroxyzine Hcl 25 Mg Tablet PO 25 mg BEDTIME PRN Administration Anxiety Lorazepam 0.5 mg 12/04/20 15:34 12/05/20 20:15 Lorazepam 0.5 Mg Tablet PO 0.5 mg BID PRN Administration anxiety Lurasidone HCl 20 mg 12/05/20 09:00 12/06/20 08:45 Lurasidone Hcl 20 Mg Tablet PO 20 mg DAILY DOMINICK Administration Magnesium Hydroxide 30 ml 12/04/20 15:37 Milk Of Magnesia 30 Ml Oral.Susp PO DAILY PRN Constipation Mirtazapine 7.5 mg 12/04/20 21:00 12/05/20 20:15 Mirtazapine 7.5 Mg Tablet PO 7.5 mg BEDTIME DOMINICK Administration Non-Formulary Medication 1 each 12/04/20 21:00 12/06/20 08:45 Patient Own Medication PO 1 each BID DOMINICK Administration Ondansetron HCl 4 mg 12/04/20 15:34 Ondansetron Odt 4 Mg Tab.Rapdis TRANSLINGU Q8H PRN nausea/vomiting Ondansetron HCl 4 mg 12/04/20 15:34 Ondansetron Hcl 4 Mg/2 Ml Vial IVPUSH Q8H PRN Nausea and Vomiting Prednisone 40 mg 12/06/20 11:02 Prednisone 20 Mg Tablet PO 12/08/20 09:01 DAILY DOMINICK Quetiapine Fumarate 37.5 mg 12/04/20 21:00 12/05/20 20:14 Quetiapine Fumarate 25 Mg Tablet PO 37.5 mg BEDTIME DOMINICK Administration Labs CBC & Chem 7: 12/06/20 08:39 12/06/20 08:39 Assessment and Plan (1) Increased oxygen demand: Status: Acute (2) Pneumonia: Status: Acute (3) Pulmonary fibrosis: Status: Acute Assessment and Plan: a 80-year-old male with past medical history of COPD, pulmonary fibrosis, CVA, CKD, depression, CHF, anxiety, who was discharged from [facility] to the psych unit on December 04 after treatment for hypoxic respiratory failure and pneumonia noticed to increased oxygen requirement. Recent Pneumonia Azithromycin was not started at the psych unit, to resume azithromycin finish total 10 days CBC trending down Repeated CXR showing no acute findings but chronic severe pulmonary fibrosis Increased oxygen requirement Elevated BNP BNP mildly elevated Continue with Lasix for now Incentive spirometry The patient will need home O2 evaluation as he will likely need to be on oxygen a lifelong History of pulmonary fibrosis Start prednisone therapy Budesonide inhaler Physical deconditioning To start physical therapy Thank you for the consult, will continue to monitor the patient with you as needed. Please contact hospitalist team for any question.
[2020-12-06] MEDS: predniSONE 20 MG TABLET 40 MG PO (12:03)
[2020-12-06] MEDS: LORazepam 0.5 MG TABLET PO ×2 (12:04→18:21)
[2020-12-06] MEDS: Budesonide 180 MCG AER.POW.BA 2 PUFF INHALE ×2 (12:05→20:04)
[2020-12-06] MEDS: guaiFENesin DM 100/10/5 ML 5 ML SYRUP PO (18:21)
--- NOTE | 2020-12-06 19:20 | PC.NURSE ---
supervisor sanding was notified of cancellation of ect for Monday.
[2020-12-06] MEDS: Azithromycin 500 MG TABLET PO (19:55)
[2020-12-06] MEDS: QUEtiapine Fumarate 25 MG TABLET 37.5 MG PO (19:55)
[2020-12-06] MEDS: Mirtazapine 7.5 MG TABLET PO (19:55)
[2020-12-06] MEDS: hydrOXYzine HCL 25 MG TABLET PO (19:55)
[2020-12-07 05:40] VITALS: BP 123/71; PULSE 75; RESP 22; TEMP 36.7; O2SAT 96
[2020-12-07] MEDS: Lurasidone HCl 20 MG TABLET PO (08:35)
[2020-12-07] MEDS: Famotidine 20 MG TABLET PO (08:35)
[2020-12-07] MEDS: predniSONE 20 MG TABLET 40 MG PO (08:35)
[2020-12-07] MEDS: Budesonide 180 MCG AER.POW.BA 2 PUFF INHALE ×2 (08:36→20:51)
--- NOTE | 2020-12-07 09:26 | HO.PSYCHPN ---
Subjective Subjective Date of Service: 12/07/20 Reason For Visit: MAJOR DEPRESSION Subjective Notes: Conditional Voluntary Interim History: CASE REVIEWED WITH HOSPITALIST SERVICE PATIENT SEEN PATIENT ALSO SEEN WITH HIS . PATIENT HAS HAD SHORTNESS BREATH INCREASE ANXIETY ECT ON HOLD REMAINS DEPRESSED FLAT ANXIOUS Medication Compliance: Yes Mental Status Exam Mental Status Exam Patient Appearance: Fatigued Patient Orientation: Person, Place and Situation Level of Consciousness: Alert Patient Behavior: Dependent, Cooperative, Passive, Timid, Anxious, Fearful, Fatigued and Confused Mood Description: Depressed and Anxious Affect Description: Flat Patient Cognition Impaired: Yes Ability to Follow Directions: Fair Speech Pattern: Perseverating, Spontaneous Speech and Soft-Spoken Memory Description: Episodic Impaired Hallucinations: None Delusions: Not Present Thought Process: Rumination Thought Content: positive for [employer], positive for Circumstantial and positive for Perseveration Depressive Symptoms: Increased Anxiety, Loss of Int. in Activity, Hopelessness, Unhappiness, Increased Fatigue, Low Self Esteem, Loss of Energy and Difficulty Concentrating Judgement: Poor Diagnostics Vital Signs (24Hr): Vital Signs - 24 hr 12/06/20 13:00 12/06/20 16:48 12/06/20 18:36 Temperature 98.9 F 98.7 F Pulse Rate 91 86 90 Respiratory Rate 14 20 Blood Pressure 108/73 91/60 99/61 Pulse Oximetry 96 96 12/06/20 21:04 12/06/20 22:10 12/07/20 05:40 Temperature 98.7 F 98.0 F Pulse Rate 72 86 75 Respiratory Rate 20 22 H Blood Pressure 111/69 100/68 123/71 Pulse Oximetry 96 95 96 Labs Results: 12/06/20 08:39 12/06/20 08:39 Labs: Laboratory Results - last 48 hr 12/06/20 12/06/20 12/06/20 08:39 08:39 08:39 WBC 12.6 H RBC 3.39 L Hgb 10.9 L Hct 31.7 L MCV 93.5 MCH 32.2 MCHC 34.4 RDW 14.3 Plt Count 235 MPV 10.6 Absolute Nucleated RBC 0.000 Nucleated RBC % (auto) 0.0 Sodium 136 Potassium 4.1 Chloride 100 Carbon Dioxide 26 Anion Gap 14 BUN 28 H Creatinine 1.24 Estim Creat Clear Calc TNP Estimated GFR 56 Random Glucose 92 Calcium 8.2 L B-Natriuretic Peptide 133 H Imaging Radiology Impressions: ITS Impressions Chest X-Ray 12/05/20 18:58 IMPRESSION: Severe chronic interstitial lung disease stable when compared to the prior study. There are probably new small trace pleural effusions present Medications Medications Current Medications Generic Name Dose Route Start Last Admin Trade Name Freq PRN Reason Stop Dose Admin Acetaminophen 650 mg 12/04/20 15:34 12/05/20 16:07 Acetaminophen 325 Mg Tablet PO 650 mg Q6H PRN Administration Pain, Mild (Pain Scale 1-3) Acetaminophen 650 mg 12/04/20 15:37 Acetaminophen 325 Mg Tablet PO Q6H PRN Headache/Pain Mild Scale (1-3) Al Hydroxide/Mg Hydroxide 30 ml 12/04/20 15:37 Magnesium Hydrox/Alum Hydrox 30 Ml Oral.Susp PO Q6H PRN Heartburn/Nausea Azithromycin 500 mg 12/05/20 20:00 12/06/20 19:55 Azithromycin 500 Mg Tablet PO 12/11/20 20:01 500 mg Q24H DOMINICK Administration Budesonide 2 puff 12/06/20 10:21 12/07/20 08:36 Budesonide 180 Mcg Aer.Pow.Ba INHALE 2 puff RBID DOMINICK Administration Cefuroxime Axetil 500 mg 12/05/20 08:00 12/07/20 08:36 Cefuroxime Axetil 500 Mg Tablet PO 12/09/20 08:01 500 mg Q12H DOMINICK Administration Docusate Sodium 100 mg 12/04/20 15:34 Docusate Sodium 100 Mg Capsule PO DAILY PRN Constipation Famotidine 20 mg 12/05/20 09:00 12/07/20 08:35 Famotidine 20 Mg Tablet PO 20 mg DAILY DOMINICK Administration Guaifenesin/Dextromethorphan 5 ml 12/04/20 15:34 12/06/20 18:21 Guaifenesin Dm 100/10/5 Ml 5 Ml Syrup PO 5 ml Q6H PRN Administration cough Hydroxyzine HCl 25 mg 12/04/20 15:37 12/06/20 19:55 Hydroxyzine Hcl 25 Mg Tablet PO 25 mg BEDTIME PRN Administration Anxiety Lorazepam 0.5 mg 12/04/20 15:34 12/06/20 18:21 Lorazepam 0.5 Mg Tablet PO 0.5 mg BID PRN Administration anxiety Lurasidone HCl 20 mg 12/05/20 09:00 12/07/20 08:35 Lurasidone Hcl 20 Mg Tablet PO 20 mg DAILY DOMINICK Administration Magnesium Hydroxide 30 ml 12/04/20 15:37 Milk Of Magnesia 30 Ml Oral.Susp PO DAILY PRN Constipation Mirtazapine 7.5 mg 12/04/20 21:00 12/06/20 19:55 Mirtazapine 7.5 Mg Tablet PO 7.5 mg BEDTIME DOMINICK Administration Non-Formulary Medication 1 each 12/04/20 21:00 12/07/20 08:37 Patient Own Medication PO 1 each BID DOMINICK Administration Ondansetron HCl 4 mg 12/04/20 15:34 Ondansetron Odt 4 Mg Tab.Rapdis TRANSLINGU Q8H PRN nausea/vomiting Ondansetron HCl 4 mg 12/04/20 15:34 Ondansetron Hcl 4 Mg/2 Ml Vial IVPUSH Q8H PRN Nausea and Vomiting Prednisone 40 mg 12/06/20 11:02 12/07/20 08:35 Prednisone 20 Mg Tablet PO 12/08/20 09:01 40 mg DAILY DOMINICK Administration Quetiapine Fumarate 37.5 mg 12/04/20 21:00 12/06/20 19:55 Quetiapine Fumarate 25 Mg Tablet PO 37.5 mg BEDTIME DOMINICK Administration Allergies Allergies Allergy/AdvReac Type Severity Reaction Status Date / Time Sulfa (Sulfonamide Allergy Unknown UNKNOWN Verified 12/01/20 09:47 Antibiotics) [SULFA (SULFONAMIDE ANTIBIOTICS)] zoster vaccine live Allergy Hives Verified 12/01/20 09:47 Assessment & Plan Assessment & Plan (1) Pneumonia: Status: Acute Code(s): J18.9 - Pneumonia, unspecified organism (2) Pulmonary fibrosis: Status: Acute Code(s): J84.10 - Pulmonary fibrosis, unspecified (3) Bipolar I disorder with depression, severe: Status: Acute Code(s): F31.4 - Bipolar disorder, current episode depressed, severe, without psychotic features Assessment and Plan: HOLD ECT SECONDARY TO PULMONARY STATUS. CASE REVIEWED WITH HOSPITALIST SERVICE ON ANTIBIOTICS STEROID SOME NOW ON OXYGEN NORMALLY NOT ON OXYGEN. WILL GET PULMONARY CONSULT. [facility] HAS NOT BEEN HELPFUL WILL TRY [facility]I QUESTION PULMONARY REHAB RESTART [facility] SCHEDULED Greater than 50% of the session was spent on counseling and/or coordination of care Reason for contiued inpatient stay Substantial Risk for: inability to function, rapid decompensation and med/psych decompensation
[2020-12-07] MEDS: LORazepam 0.5 MG TABLET PO ×2 (12:48→20:47)
[2020-12-07 13:00] VITALS: BP 129/73; PULSE 97; RESP 16; O2SAT 92
--- NOTE | 2020-12-07 14:18 | P.PNIM_ITS ---
Subjective Subjective Date of Service: 12/07/20 Interval History: The patient was seen and evaluated this morning Sitting on the chair, on 2-3 L of oxygen, feels comfortable and better than yesterday Denies any fever, chills or shortness of breath at rest No reported other overnight events or hypoxia Systemic review: No fever, chills or weakness No chest pain, palpitation No shortness of breath at rest or coughing No abdominal pain, nausea or vomiting No urinary symptoms No any rash or wounds Physical Exam Vital Signs: Vital Signs: Last Vital Signs Temp 98.0 F 12/07/20 05:40 Pulse 75 12/07/20 05:40 Resp 22 H 12/07/20 05:40 BP 123/71 12/07/20 05:40 Pulse Ox 96 12/07/20 05:40 Const: Other: Constitutional : Alert, oriented, not in distress Neck : Normal inspection, Supple Cardiovascular : RRR, S1 S2, no lower extremity edema Respiratory : Fair bilateral air entry decreased at the bases, bilateral bases fine crackles, no wheezes or rhonchi Gastrointestinal: soft, lax, Normal bowel sounds, Non tender Skin : Warm/Dry, No rash Neurological : Alert & oriented x3, No focal deficit Objective Data Current Medications Generic Name Dose Route Start Last Admin Trade Name Freq PRN Reason Stop Dose Admin Acetaminophen 650 mg 12/04/20 15:34 12/05/20 16:07 Acetaminophen 325 Mg Tablet PO 650 mg Q6H PRN Administration Pain, Mild (Pain Scale 1-3) Acetaminophen 650 mg 12/04/20 15:37 Acetaminophen 325 Mg Tablet PO Q6H PRN Headache/Pain Mild Scale (1-3) Al Hydroxide/Mg Hydroxide 30 ml 12/04/20 15:37 Magnesium Hydrox/Alum Hydrox 30 Ml Oral.Susp PO Q6H PRN Heartburn/Nausea Azithromycin 500 mg 12/05/20 20:00 12/06/20 19:55 Azithromycin 500 Mg Tablet PO 12/11/20 20:01 500 mg Q24H DOMINICK Administration Budesonide 2 puff 12/06/20 10:21 12/07/20 08:36 Budesonide 180 Mcg Aer.Pow.Ba INHALE 2 puff RBID DOMINICK Administration Cefuroxime Axetil 500 mg 12/05/20 08:00 12/07/20 08:36 Cefuroxime Axetil 500 Mg Tablet PO 12/09/20 08:01 500 mg Q12H DOMINICK Administration Docusate Sodium 100 mg 12/04/20 15:34 Docusate Sodium 100 Mg Capsule PO DAILY PRN Constipation Famotidine 20 mg 12/05/20 09:00 12/07/20 08:35 Famotidine 20 Mg Tablet PO 20 mg DAILY DOMINICK Administration Guaifenesin/Dextromethorphan 5 ml 12/04/20 15:34 12/06/20 18:21 Guaifenesin Dm 100/10/5 Ml 5 Ml Syrup PO 5 ml Q6H PRN Administration cough Hydroxyzine HCl 25 mg 12/04/20 15:37 12/06/20 19:55 Hydroxyzine Hcl 25 Mg Tablet PO 25 mg BEDTIME PRN Administration Anxiety Lorazepam 0.5 mg 12/04/20 15:34 12/07/20 12:48 Lorazepam 0.5 Mg Tablet PO 0.5 mg BID PRN Administration anxiety Lurasidone HCl 20 mg 12/05/20 09:00 12/07/20 08:35 Lurasidone Hcl 20 Mg Tablet PO 20 mg DAILY DOMINICK Administration Magnesium Hydroxide 30 ml 12/04/20 15:37 Milk Of Magnesia 30 Ml Oral.Susp PO DAILY PRN Constipation Mirtazapine 7.5 mg 12/04/20 21:00 12/06/20 19:55 Mirtazapine 7.5 Mg Tablet PO 7.5 mg BEDTIME DOMINICK Administration Non-Formulary Medication 1 each 12/04/20 21:00 12/07/20 08:37 Patient Own Medication PO 1 each BID DOMINICK Administration Ondansetron HCl 4 mg 12/04/20 15:34 Ondansetron Odt 4 Mg Tab.Rapdis TRANSLINGU Q8H PRN nausea/vomiting Ondansetron HCl 4 mg 12/04/20 15:34 Ondansetron Hcl 4 Mg/2 Ml Vial IVPUSH Q8H PRN Nausea and Vomiting Prednisone 40 mg 12/06/20 11:02 12/07/20 08:35 Prednisone 20 Mg Tablet PO 12/08/20 09:01 40 mg DAILY DOMINICK Administration Quetiapine Fumarate 37.5 mg 12/04/20 21:00 12/06/20 19:55 Quetiapine Fumarate 25 Mg Tablet PO 37.5 mg BEDTIME DOMINICK Administration Labs CBC & Chem 7: 12/06/20 08:39 12/06/20 08:39 Assessment and Plan (1) Increased oxygen demand: Status: Acute (2) Pneumonia: Status: Acute (3) Pulmonary fibrosis: Status: Acute Assessment and Plan: a 80-year-old male with past medical history of COPD, pulmonary fibrosis, CVA, CKD, depression, CHF, anxiety, who was discharged from [facility] to the psych unit on December 04 after treatment for hypoxic respiratory failure and pneumonia noticed to increased oxygen requirement. Recent Pneumonia Continue azithromycin finish total 10 days Repeated CXR showing no acute findings but chronic severe pulmonary fibrosis Increased oxygen requirement Elevated BNP BNP mildly elevated Continue with Lasix for now Incentive spirometry The patient will need home O2 evaluation as he will likely need to be on oxygen a lifelong To get home oxygen evaluation History of pulmonary fibrosis Start prednisone therapy D2/3 Budesonide inhaler Physical deconditioning To start physical therapy Thank you for the consult, will continue to monitor the patient with you as needed. Please contact hospitalist team for any question.
[2020-12-07] MEDS: guaiFENesin LA 600 MG TAB.ER.12H PO ×2 (14:59→20:46)
[2020-12-07] MEDS: Furosemide 40 MG TABLET PO (15:00)
[2020-12-07 16:00] VITALS: BP 127/69; PULSE 94; TEMP 36.7; O2SAT 94
[2020-12-07 19:40] VITALS: BP 143/87; PULSE 83; RESP 28; O2SAT 90
[2020-12-07 20:13] VITALS: BP 122/72; PULSE 71; O2SAT 95
[2020-12-07] MEDS: Mirtazapine 7.5 MG TABLET PO (20:47)
[2020-12-07] MEDS: Azithromycin 500 MG TABLET PO (20:47)
[2020-12-07] MEDS: QUEtiapine Fumarate 25 MG TABLET 37.5 MG PO (20:48)
[2020-12-07 23:01] VITALS: BP 116/68; PULSE 80; TEMP 37; O2SAT 94
[2020-12-08 06:20] VITALS: BP 131/75; PULSE 72; RESP 24; TEMP 36.3; O2SAT 98
[2020-12-08] MEDS: Budesonide 180 MCG AER.POW.BA 2 PUFF INHALE ×2 (08:35→22:08)
[2020-12-08] MEDS: predniSONE 20 MG TABLET 40 MG PO (08:36)
[2020-12-08] MEDS: LORazepam 0.5 MG TABLET PO ×3 (08:36→22:07)
[2020-12-08] MEDS: Brexpiprazole 1 MG TABLET 0.5 MG PO (08:36)
[2020-12-08] MEDS: guaiFENesin LA 600 MG TAB.ER.12H PO ×2 (08:36→22:08)
[2020-12-08] MEDS: Famotidine 20 MG TABLET PO (08:36)
--- NOTE | 2020-12-08 15:17 | HO.PM.IMPN ---
Subjective Subjective Date of Service: 12/08/20 Interval History: The patient was seen and evaluated this morning Sitting on the chair, on 2L of oxygen, feels comfortable and better than yesterday Denies any fever, chills or shortness of breath at rest No reported other overnight events or hypoxia Systemic review: No fever, chills or weakness No chest pain, palpitation No shortness of breath at rest or coughing No abdominal pain, nausea or vomiting No urinary symptoms No any rash or wounds Physical Exam Vital Signs: Vital Signs: Last Vital Signs Temp 97.4 F 12/08/20 06:20 Pulse 72 12/08/20 06:20 Resp 24 H 12/08/20 06:20 BP 131/75 12/08/20 06:20 Pulse Ox 98 12/08/20 06:20 Const: Other: Constitutional : Alert, oriented, not in distress Neck : Normal inspection, Supple Cardiovascular : RRR, S1 S2, no lower extremity edema Respiratory : Fair bilateral air entry decreased at the bases, bilateral bases fine crackles, no wheezes or rhonchi Gastrointestinal: soft, lax, Normal bowel sounds, Non tender Skin : Warm/Dry, No rash Neurological : Alert & oriented x3, No focal deficit Objective Data Current Medications Generic Name Dose Route Start Last Admin Trade Name Freq PRN Reason Stop Dose Admin Acetaminophen 650 mg 12/04/20 15:34 12/05/20 16:07 Acetaminophen 325 Mg Tablet PO 650 mg Q6H PRN Administration Pain, Mild (Pain Scale 1-3) Acetaminophen 650 mg 12/04/20 15:37 Acetaminophen 325 Mg Tablet PO Q6H PRN Headache/Pain Mild Scale (1-3) Al Hydroxide/Mg Hydroxide 30 ml 12/04/20 15:37 Magnesium Hydrox/Alum Hydrox 30 Ml Oral.Susp PO Q6H PRN Heartburn/Nausea Azithromycin 500 mg 12/05/20 20:00 12/07/20 20:47 Azithromycin 500 Mg Tablet PO 12/11/20 20:01 500 mg Q24H DOMINICK Administration Brexpiprazole 0.5 mg 12/08/20 09:00 12/08/20 08:36 Brexpiprazole 1 Mg Tablet PO 0.5 mg DAILY DOMINICK Administration Budesonide 2 puff 12/06/20 10:21 12/08/20 08:35 Budesonide 180 Mcg Aer.Pow.Ba INHALE 2 puff RBID DOMINICK Administration Cefuroxime Axetil 500 mg 12/05/20 08:00 12/08/20 08:36 Cefuroxime Axetil 500 Mg Tablet PO 12/09/20 08:01 500 mg Q12H DOMINICK Administration Docusate Sodium 100 mg 12/04/20 15:34 Docusate Sodium 100 Mg Capsule PO DAILY PRN Constipation Famotidine 20 mg 12/05/20 09:00 12/08/20 08:36 Famotidine 20 Mg Tablet PO 20 mg DAILY DOMINICK Administration Guaifenesin 600 mg 12/07/20 14:20 12/08/20 08:36 Guaifenesin La 600 Mg Tab.Er.12h PO 12/12/20 14:19 600 mg BID DOMINICK Administration Guaifenesin/Dextromethorphan 5 ml 12/04/20 15:34 12/06/20 18:21 Guaifenesin Dm 100/10/5 Ml 5 Ml Syrup PO 5 ml Q6H PRN Administration cough Hydroxyzine HCl 25 mg 12/04/20 15:37 12/06/20 19:55 Hydroxyzine Hcl 25 Mg Tablet PO 25 mg BEDTIME PRN Administration Anxiety Lorazepam 0.5 mg 12/04/20 15:34 12/07/20 20:47 Lorazepam 0.5 Mg Tablet PO 0.5 mg BID PRN Administration anxiety Lorazepam 0.5 mg 12/08/20 09:00 12/08/20 08:36 Lorazepam 0.5 Mg Tablet PO 0.5 mg BID DOMINICK Administration Magnesium Hydroxide 30 ml 12/04/20 15:37 Milk Of Magnesia 30 Ml Oral.Susp PO DAILY PRN Constipation Mirtazapine 7.5 mg 12/04/20 21:00 12/07/20 20:47 Mirtazapine 7.5 Mg Tablet PO 7.5 mg BEDTIME DOMINICK Administration Non-Formulary Medication 1 each 12/04/20 21:00 12/08/20 08:35 Patient Own Medication PO 1 each BID DOMINICK Administration Ondansetron HCl 4 mg 12/04/20 15:34 Ondansetron Odt 4 Mg Tab.Rapdis TRANSLINGU Q8H PRN nausea/vomiting Ondansetron HCl 4 mg 12/04/20 15:34 Ondansetron Hcl 4 Mg/2 Ml Vial IVPUSH Q8H PRN Nausea and Vomiting Quetiapine Fumarate 37.5 mg 12/04/20 21:00 12/07/20 20:48 Quetiapine Fumarate 25 Mg Tablet PO 37.5 mg BEDTIME DOMINICK Administration Labs CBC & Chem 7: 12/06/20 08:39 12/06/20 08:39 Assessment and Plan (1) Increased oxygen demand: Status: Acute (2) Pneumonia: Status: Acute (3) Pulmonary fibrosis: Status: Acute Assessment and Plan: a 80-year-old male with past medical history of COPD, pulmonary fibrosis, CVA, CKD, depression, CHF, anxiety, who was discharged from [facility] to the psych unit on December 04 after treatment for hypoxic respiratory failure and pneumonia noticed to increased oxygen requirement. Recent Pneumonia Continue azithromycin finish total 6/10 days Repeated CXR showing no acute findings but chronic severe pulmonary fibrosis Increased oxygen requirement Elevated BNP BNP mildly elevated REcieved lasix with good response Incentive spirometry home oxygen evaluation History of pulmonary fibrosis prednisone therapy D3/3 Budesonide inhaler Physical deconditioning start physical therapy Thank you for the consult, will continue to monitor the patient with you as needed. Please contact hospitalist team for any question.
--- NOTE | 2020-12-08 15:25 | P.CONPL_ITS ---
History of Present Illness History of Present Illness Consult date: 12/08/20 Requesting physician: Blane Chowdhury Chief complaint: MAJOR DEPRESSION Narrative: 80-year-old gentleman, nonsmoker, with underlying history of advanced idiopathic pulmonary fibrosis on Ofev therapy usually followed by Dr. Yee at [facility] pulmonary Department, also underlying congestive heart failure admitted to psychiatric unit on December 04, of note patient has had increased oxygen requirements up to 2 L continuous flow after his recent ECT on November 27, 2020. Patient remained somewhat withdrawn during the exam and majority of the history obtained from medical record review. Review of Systems Constitutional: Constitutional: Denies daytime sleepiness, Denies excessive sweating, Denies fatigue, Denies fever(s), Denies lethargy, Denies malaise, Denies night sweats, Denies snoring and Denies weight loss Eyes: Eyes: Denies blurry vision and Denies itchy eyes ENT: Denies nasal congestion, Denies post nasal drip, Denies sinus pain, Herbert es sinus pressure and Denies other ( Thrush) Cardiovascular: Cardiovascular: Denies chest pain, Denies pedal edema, Reports dyspnea, Denies orthopnea and Denies paroxysmal nocturnal dyspnea Respiratory: Respiratory: Denies cough, Denies hemoptysis, Denies excessive phlegm production, Reports dyspnea, Denies snoring and Denies wheezing Gastrointestinal: Gastrointestinal: Denies abdominal pain and Denies heartburn Musculoskeletal: Musculoskeletal: Denies myalgias, Denies arthralgias and Denies joint swelling Integumentary/Breasts: Skin/Breast: Denies rash Neurologic: Denies seizure-like activity Endocrine: Endocrine: Denies excessive sweating, Denies fatigue and Denies heat intolerance Hematologic/Lymphatic: Hematologic/Lymphatic: Denies easy bruising Allergic/Immunologic: Allergic/Immunologic: Denies itchy eyes, Denies seasonal rhinorrhea and Denies wheezing PMFSH Past Medical History Medical History Anemia Anxiety Bronchiectasis Cerebrovascular disease Chronic hyponatremia CKD (chronic kidney disease) stage 3, GFR 30-59 ml/min Degenerative arthritis Depression History of electroconvulsive therapy Hx of bladder cancer Hydrocele Pulmonary fibrosis Pulmonary fibrosis Family History Family History Father Colon cancer Surgical History Surgical History History of bladder surgery Social History Social History Household Members: Spouse Housing: House Do you presently have visiting nurse or other home services: Yes Smoking Status: Never smoker Second Hand Smoke Exposure: No Use of substances other than those prescribed or required for medical reasons: Yes Substance Use Type: Marijuana Substance Use Frequency: Daily Currently Displaying Signs/Symptoms of Drug Intoxication Withdrawal: No Any prior treatment program specific to substance use: No Have you been hit, kicked, punched, or otherwise hurt by someone within the past year? If so, by whom?: No Do you feel safe in your current relationship?: Yes Is there a partner from a previous relationship who is making you feel unsafe now?: No Are you made to feel afraid or neglected: No Advance Directives: No Advance Directives Information Provided: No Advance Directives on File: No Advance Directives Date on File: 11/27/20 Do you have thoughts of harming others: None Do you have a plan to hurt others: No Plan Recently lost weight without trying: No service: No Current occupational status: retired Sexual orientation: Straight/Heterosexual Meds Allergies Allergy/AdvReac Type Severity Reaction Status Date / Time Sulfa (Sulfonamide Allergy Unknown UNKNOWN Verified 12/01/20 09:47 Antibiotics) [SULFA (SULFONAMIDE ANTIBIOTICS)] zoster vaccine live Allergy Hives Verified 12/01/20 09:47 Active Medications: Current Medications Generic Name Dose Route Start Last Admin Trade Name Freq PRN Reason Stop Dose Admin Acetaminophen 650 mg 12/04/20 15:34 12/05/20 16:07 Acetaminophen 325 Mg Tablet PO 650 mg Q6H PRN Administration Pain, Mild (Pain Scale 1-3) Acetaminophen 650 mg 12/04/20 15:37 Acetaminophen 325 Mg Tablet PO Q6H PRN Headache/Pain Mild Scale (1-3) Al Hydroxide/Mg Hydroxide 30 ml 12/04/20 15:37 Magnesium Hydrox/Alum Hydrox 30 Ml Oral.Susp PO Q6H PRN Heartburn/Nausea Azithromycin 500 mg 12/05/20 20:00 12/07/20 20:47 Azithromycin 500 Mg Tablet PO 12/11/20 20:01 500 mg Q24H DOMINICK Administration Brexpiprazole 0.5 mg 12/08/20 09:00 12/08/20 08:36 Brexpiprazole 1 Mg Tablet PO 0.5 mg DAILY DOMINICK Administration Budesonide 2 puff 12/06/20 10:21 12/08/20 08:35 Budesonide 180 Mcg Aer.Pow.Ba INHALE 2 puff RBID DOMINICK Administration Cefuroxime Axetil 500 mg 12/05/20 08:00 12/08/20 08:36 Cefuroxime Axetil 500 Mg Tablet PO 12/09/20 08:01 500 mg Q12H DOMINICK Administration Docusate Sodium 100 mg 12/04/20 15:34 Docusate Sodium 100 Mg Capsule PO DAILY PRN Constipation Famotidine 20 mg 12/05/20 09:00 12/08/20 08:36 Famotidine 20 Mg Tablet PO 20 mg DAILY DOMINICK Administration Guaifenesin 600 mg 12/07/20 14:20 12/08/20 08:36 Guaifenesin La 600 Mg Tab.Er.12h PO 12/12/20 14:19 600 mg BID DOMINICK Administration Guaifenesin/Dextromethorphan 5 ml 12/04/20 15:34 12/06/20 18:21 Guaifenesin Dm 100/10/5 Ml 5 Ml Syrup PO 5 ml Q6H PRN Administration cough Hydroxyzine HCl 25 mg 12/04/20 15:37 12/06/20 19:55 Hydroxyzine Hcl 25 Mg Tablet PO 25 mg BEDTIME PRN Administration Anxiety Lorazepam 0.5 mg 12/04/20 15:34 12/07/20 20:47 Lorazepam 0.5 Mg Tablet PO 0.5 mg BID PRN Administration anxiety Lorazepam 0.5 mg 12/08/20 09:00 12/08/20 08:36 Lorazepam 0.5 Mg Tablet PO 0.5 mg BID DOMINICK Administration Magnesium Hydroxide 30 ml 12/04/20 15:37 Milk Of Magnesia 30 Ml Oral.Susp PO DAILY PRN Constipation Mirtazapine 7.5 mg 12/04/20 21:00 12/07/20 20:47 Mirtazapine 7.5 Mg Tablet PO 7.5 mg BEDTIME DOMINICK Administration Non-Formulary Medication 1 each 12/04/20 21:00 12/08/20 08:35 Patient Own Medication PO 1 each BID DOMINICK Administration Ondansetron HCl 4 mg 12/04/20 15:34 Ondansetron Odt 4 Mg Tab.Rapdis TRANSLINGU Q8H PRN nausea/vomiting Ondansetron HCl 4 mg 12/04/20 15:34 Ondansetron Hcl 4 Mg/2 Ml Vial IVPUSH Q8H PRN Nausea and Vomiting Quetiapine Fumarate 37.5 mg 12/04/20 21:00 12/07/20 20:48 Quetiapine Fumarate 25 Mg Tablet PO 37.5 mg BEDTIME DOMINICK Administration Home Medications Medication Instructions Recorded Confirmed Last Taken Type Latuda 1 tab PO DAILY 11/25/20 12/01/20 11/25/20 History Ofev 150 mg PO BID 11/25/20 12/01/20 11/25/20 History docusate sodium [Stool Softener] 1 cap PO BID PRN 11/25/20 12/01/20 11/25/20 History lorazepam 1 tab PO BID PRN 11/25/20 12/01/20 11/25/20 History mirtazapine 1 tab PO BEDTIME 11/25/20 12/01/20 11/24/20 History ondansetron 1 tab PO Q8H PRN 11/25/20 12/01/20 Unknown History quetiapine 37.5 mg PO BEDTIME 11/25/20 12/01/20 11/24/20 History Physical Exam Vital Signs: Vital Signs: Last Vital Signs Temp 97.4 F 12/08/20 06:20 Pulse 72 12/08/20 06:20 Resp 24 H 12/08/20 06:20 BP 131/75 12/08/20 06:20 Pulse Ox 98 12/08/20 06:20 Const: General: no acute distress, alert and awake Eyes: Sclerae: sclerae normal EOM: EOMs intact bilaterally Neck: Neck: Yes no lymphadenopathy, Yes trachea midline and Yes supple Resp: Effort & Inspection: normal respiratory effort and no respiratory distress Auscultation: clear to auscultation bilaterally Cardio: Rate: regular rate Rhythm: regular rhythm Heart sounds: no gallops, no murmurs and no rubs GI: Palpation (GI): Soft to palpation and Other GI palpation findings present ( Nontender) Auscultation: normal bowel sounds Extrem: General: Yes no pedal edema, No clubbing and No cyanosis Results Laboratory Findings CBC and BMP: 12/06/20 08:39 12/06/20 08:39 Abnormal lab findings: Abnormal Labs 12/06/20 12/06/20 12/06/20 08:39 08:39 08:39 WBC 12.6 H RBC 3.39 L Hgb 10.9 L Hct 31.7 L BUN 28 H Calcium 8.2 L B-Natriuretic Peptide 133 H Assessment and Plan (1) Increased oxygen demand: Status: Acute Impression: 80-year-old gentleman with underlying advanced idiopathic pulmonary fibrosis noted to increased being oxygen requirements, now requiring 2 L continuous flow with exertion. CT chest has been reviewed and shows mostly features of advanced idiopathic pulmonary fibrosis with peripheral honeycombing and pulmonary cyst formation, fibrosis, traction bronchiectasis. Some pulmonary edema component. No appreciable lobar infiltrate to explain hypoxemia from a pneumonic process. As patient has an known congestive heart failure, he may have worsening of underlying congestive heart failure as a main etiology for his hypoxia. Another possibility include exacerbation and/of progression of his underlying IPF. No significant wheezing/reactive airway component appreciated. Recommendation: Consider obtaining most recent pulmonary function test with diffusion capacity to assess for severity of underlying IPF. Consider further evaluation of a possible cardiac etiology. At this time patient would not benefit from systemic glucocorticoids. (2) Pulmonary fibrosis: Status: Acute
[2020-12-08 16:15] VITALS: BP 104/59; PULSE 77; RESP 26; TEMP 37.2; O2SAT 97
[2020-12-08] MEDS: Loperamide HCl 2 MG CAPSULE PO (17:05)
[2020-12-08 19:15] VITALS: BP 110/66; PULSE 70; RESP 26; O2SAT 97
[2020-12-08] MEDS: QUEtiapine Fumarate 25 MG TABLET 37.5 MG PO (22:07)
[2020-12-08] MEDS: Mirtazapine 7.5 MG TABLET PO (22:08)
[2020-12-08] MEDS: Azithromycin 500 MG TABLET PO (22:08)
[2020-12-08] MEDS: hydrOXYzine HCL 25 MG TABLET PO (22:22)
--- NOTE | 2020-12-08 23:09 | HO.PSYCHPN ---
Subjective Subjective Date of Service: 12/08/20 Reason For Visit: MAJOR DEPRESSION Subjective Notes: Conditional Voluntary Interim History: Patient depressed withdrawn difficulty swallowing remains on oxygen pulmonary consult was ordered Case was reviewed with patient's Medication Compliance: Yes Side effects from medications: No Mental Status Exam Mental Status Exam Patient Appearance: Fatigued Patient Orientation: Person, Place and Situation Level of Consciousness: Alert Patient Behavior: Dependent, Cooperative, Passive, Timid, Anxious, Fearful, Fatigued and Confused Mood Description: Depressed and Anxious Affect Description: Flat Patient Cognition Impaired: Yes Ability to Follow Directions: Fair Speech Pattern: Perseverating, Spontaneous Speech and Soft-Spoken Memory Description: Episodic Impaired Hallucinations: None Delusions: Not Present Thought Process: Rumination Thought Content: positive for [place], positive for Circumstantial and positive for Perseveration Depressive Symptoms: Increased Anxiety, Loss of Int. in Activity, Hopelessness, Unhappiness, Increased Fatigue, Low Self Esteem, Loss of Energy and Difficulty Concentrating Judgement: Poor Diagnostics Vital Signs (24Hr): Vital Signs - 24 hr 12/08/20 06:20 Temperature 97.4 F Pulse Rate 72 Respiratory Rate 24 H Blood Pressure 131/75 Pulse Oximetry 98 Labs Results: 12/06/20 08:39 12/06/20 08:39 Imaging Radiology Impressions: ITS Impressions Chest X-Ray 12/05/20 18:58 IMPRESSION: Severe chronic interstitial lung disease stable when compared to the prior study. There are probably new small trace pleural effusions present Medications Medications Current Medications Generic Name Dose Route Start Last Admin Trade Name Freq PRN Reason Stop Dose Admin Acetaminophen 650 mg 12/04/20 15:34 12/05/20 16:07 Acetaminophen 325 Mg Tablet PO 650 mg Q6H PRN Administration Pain, Mild (Pain Scale 1-3) Acetaminophen 650 mg 12/04/20 15:37 Acetaminophen 325 Mg Tablet PO Q6H PRN Headache/Pain Mild Scale (1-3) Al Hydroxide/Mg Hydroxide 30 ml 12/04/20 15:37 Magnesium Hydrox/Alum Hydrox 30 Ml Oral.Susp PO Q6H PRN Heartburn/Nausea Azithromycin 500 mg 12/05/20 20:00 12/08/20 22:08 Azithromycin 500 Mg Tablet PO 12/11/20 20:01 500 mg Q24H DOMINICK Administration Brexpiprazole 0.5 mg 12/08/20 09:00 12/08/20 08:36 Brexpiprazole 1 Mg Tablet PO 0.5 mg DAILY DOMINICK Administration Budesonide 2 puff 12/06/20 10:21 12/08/20 22:08 Budesonide 180 Mcg Aer.Pow.Ba INHALE 2 puff RBID DOMINICK Administration Cefuroxime Axetil 500 mg 12/05/20 08:00 12/08/20 22:06 Cefuroxime Axetil 500 Mg Tablet PO 12/09/20 08:01 500 mg Q12H DOMINICK Administration Docusate Sodium 100 mg 12/04/20 15:34 Docusate Sodium 100 Mg Capsule PO DAILY PRN Constipation Famotidine 20 mg 12/05/20 09:00 12/08/20 08:36 Famotidine 20 Mg Tablet PO 20 mg DAILY DOMINICK Administration Guaifenesin 600 mg 12/07/20 14:20 12/08/20 22:08 Guaifenesin La 600 Mg Tab.Er.12h PO 12/12/20 14:19 600 mg BID DOMINICK Administration Guaifenesin/Dextromethorphan 5 ml 12/04/20 15:34 12/06/20 18:21 Guaifenesin Dm 100/10/5 Ml 5 Ml Syrup PO 5 ml Q6H PRN Administration cough Hydroxyzine HCl 25 mg 12/04/20 15:37 12/08/20 22:22 Hydroxyzine Hcl 25 Mg Tablet PO 25 mg BEDTIME PRN Administration Anxiety Loperamide HCl 2 mg 12/08/20 16:31 12/08/20 17:05 Loperamide Hcl 2 Mg Capsule PO 2 mg Q4H PRN Administration Diarrhea Lorazepam 0.5 mg 12/04/20 15:34 12/08/20 16:24 Lorazepam 0.5 Mg Tablet PO 0.5 mg BID PRN Administration anxiety Lorazepam 0.5 mg 12/08/20 09:00 12/08/20 22:07 Lorazepam 0.5 Mg Tablet PO 0.5 mg BID DOMINICK Administration Magnesium Hydroxide 30 ml 12/04/20 15:37 Milk Of Magnesia 30 Ml Oral.Susp PO DAILY PRN Constipation Mirtazapine 7.5 mg 12/04/20 21:00 12/08/20 22:08 Mirtazapine 7.5 Mg Tablet PO 7.5 mg BEDTIME DOMINICK Administration Non-Formulary Medication 1 each 12/04/20 21:00 12/08/20 22:09 Patient Own Medication PO 1 each BID DOMINICK Administration Ondansetron HCl 4 mg 12/04/20 15:34 Ondansetron Odt 4 Mg Tab.Rapdis TRANSLINGU Q8H PRN nausea/vomiting Ondansetron HCl 4 mg 12/04/20 15:34 Ondansetron Hcl 4 Mg/2 Ml Vial IVPUSH Q8H PRN Nausea and Vomiting Quetiapine Fumarate 37.5 mg 12/04/20 21:00 12/08/20 22:07 Quetiapine Fumarate 25 Mg Tablet PO 37.5 mg BEDTIME DOMINICK Administration Allergies Allergies Allergy/AdvReac Type Severity Reaction Status Date / Time Sulfa (Sulfonamide Allergy Unknown UNKNOWN Verified 12/01/20 09:47 Antibiotics) [SULFA (SULFONAMIDE ANTIBIOTICS)] zoster vaccine live Allergy Hives Verified 12/01/20 09:47 Assessment & Plan Assessment & Plan (1) Increased oxygen demand: Status: Acute Code(s): R68.89 - Other general symptoms and signs (2) Pulmonary fibrosis: Status: Acute Code(s): J84.10 - Pulmonary fibrosis, unspecified (3) Bipolar I disorder with depression, severe: Status: Acute Code(s): F31.4 - Bipolar disorder, current episode depressed, severe, without psychotic features Assessment and Plan: Will get her swallowing study. Pulmonary consult unclear patient had recently not been oxygen dependent will get records from recent consult they recommended cardiology consult. Continue hospitalist service intervention and management 0 to replacement ECT held patient on Rexulti 0.5 mg. Will try and clarify patient's medical status Greater than 50% of the session was spent on counseling and/or coordination of care Reason for contiued inpatient stay Substantial Risk for: rapid decompensation and med/psych decompensation
[2020-12-09 06:05] VITALS: BP 129/80; PULSE 65; RESP 16; TEMP 36.7; O2SAT 99
[2020-12-09] MEDS: Budesonide 180 MCG AER.POW.BA 2 PUFF INHALE ×2 (08:40→20:36)
[2020-12-09] MEDS: Brexpiprazole 1 MG TABLET 0.5 MG PO (08:40)
[2020-12-09] MEDS: guaiFENesin LA 600 MG TAB.ER.12H PO ×2 (08:47→20:40)
[2020-12-09] MEDS: LORazepam 0.5 MG TABLET PO ×2 (08:47→20:41)
[2020-12-09] MEDS: Famotidine 20 MG TABLET PO (08:49)
[2020-12-09 10:12] LABS: MANUAL DIFF FLAG NO
[2020-12-09 10:17] LABS: Eosinophils Absolute Auto 0.2 X10*3/uL (0.0-0.4); Eosinophils Percent Auto 1.2 % (0-4); Hematocrit 32.7 % (42-52); Hemoglobin 10.8 g/dl (14.0-18.0); Imm Gran Abs Auto 0.07 X10*3/uL (0.00-0.03); Imm Gran Pct Auto 0.6 % (0.0-0.4); Lymphocytes Absolute Auto 3.2 X10*3/uL (1.2-4.9); Lymphocytes Percent Auto 25.1 % (20-40); Mean Corpuscular Hemoglobin 31.3 pg (27.0-33.0); Mean Corpuscular Volume 94.8 fL (80-98); Mean Platelet Volume 10.5 fL (9.4-12.4); Monocytes Percent Auto 7.7 % (2-11); Neutrophils Absolute Auto 8.2 X10*3/uL (2.0-8.3); Neutrophils Percent Auto 65.4 % (45-73); Platelet Count 327 X10*3/uL (160-400); Red Blood Count 3.45 X10*6/uL (4.60-5.80); Red Cell Distribution Width 14.7 % (11.0-16.0); White Blood Count 12.5 X10*3/uL (4.8-10.8)
[2020-12-09 10:40] LABS: B Type Natriuretic Peptide 58 pg/mL (<100)
[2020-12-09 13:59] VITALS: BP 125/73; PULSE 87; RESP 22; TEMP 36.4; O2SAT 94
--- NOTE | 2020-12-09 15:02 | HO.PM.IMPN ---
Subjective Subjective Date of Service: 12/09/20 Interval History: The patient was seen and evaluated this morning Laying in his bed, on 2L of oxygen, feels comfortable and better overall Denies any fever, chills or shortness of breath at rest No reported other overnight events or hypoxia Systemic review: No fever, chills or weakness No chest pain, palpitation No shortness of breath at rest or coughing No abdominal pain, nausea or vomiting No urinary symptoms No any rash or wounds Physical Exam Vital Signs: Vital Signs: Last Vital Signs Temp 97.5 F 12/09/20 13:59 Pulse 87 12/09/20 13:59 Resp 22 H 12/09/20 13:59 BP 125/73 12/09/20 13:59 Pulse Ox 94 12/09/20 13:59 Const: Other: Constitutional : Alert, oriented, not in distress Neck : Normal inspection, Supple Cardiovascular : RRR, S1 S2, no lower extremity edema Respiratory : Fair bilateral air entry, fine bilateral crackles, no wheezes or rhonchi Gastrointestinal: soft, lax, Normal bowel sounds, Non tender Skin : Warm/Dry, No rash Neurological : Alert & oriented x3, No focal deficit Objective Data Current Medications Generic Name Dose Route Start Last Admin Trade Name Freq PRN Reason Stop Dose Admin Acetaminophen 650 mg 12/04/20 15:34 12/05/20 16:07 Acetaminophen 325 Mg Tablet PO 650 mg Q6H PRN Administration Pain, Mild (Pain Scale 1-3) Acetaminophen 650 mg 12/04/20 15:37 Acetaminophen 325 Mg Tablet PO Q6H PRN Headache/Pain Mild Scale (1-3) Al Hydroxide/Mg Hydroxide 30 ml 12/04/20 15:37 Magnesium Hydrox/Alum Hydrox 30 Ml Oral.Susp PO Q6H PRN Heartburn/Nausea Azithromycin 500 mg 12/05/20 20:00 12/08/20 22:08 Azithromycin 500 Mg Tablet PO 12/11/20 20:01 500 mg Q24H DOMINICK Administration Brexpiprazole 0.5 mg 12/08/20 09:00 12/09/20 08:40 Brexpiprazole 1 Mg Tablet PO 0.5 mg DAILY DOMINICK Administration Budesonide 2 puff 12/06/20 10:21 12/09/20 08:40 Budesonide 180 Mcg Aer.Pow.Ba INHALE 2 puff RBID DOMINICK Administration Docusate Sodium 100 mg 12/04/20 15:34 Docusate Sodium 100 Mg Capsule PO DAILY PRN Constipation Famotidine 20 mg 12/05/20 09:00 12/09/20 08:49 Famotidine 20 Mg Tablet PO 20 mg DAILY DOMINICK Administration Guaifenesin 600 mg 12/07/20 14:20 12/09/20 08:47 Guaifenesin La 600 Mg Tab.Er.12h PO 12/12/20 14:19 600 mg BID DOMINICK Administration Guaifenesin/Dextromethorphan 5 ml 12/04/20 15:34 12/06/20 18:21 Guaifenesin Dm 100/10/5 Ml 5 Ml Syrup PO 5 ml Q6H PRN Administration cough Hydroxyzine HCl 25 mg 12/04/20 15:37 12/08/20 22:22 Hydroxyzine Hcl 25 Mg Tablet PO 25 mg BEDTIME PRN Administration Anxiety Loperamide HCl 2 mg 12/08/20 16:31 12/08/20 17:05 Loperamide Hcl 2 Mg Capsule PO 2 mg Q4H PRN Administration Diarrhea Lorazepam 0.5 mg 12/04/20 15:34 12/08/20 16:24 Lorazepam 0.5 Mg Tablet PO 0.5 mg BID PRN Administration anxiety Lorazepam 0.5 mg 12/08/20 09:00 12/09/20 08:47 Lorazepam 0.5 Mg Tablet PO 0.5 mg BID DOMINICK Administration Magnesium Hydroxide 30 ml 12/04/20 15:37 Milk Of Magnesia 30 Ml Oral.Susp PO DAILY PRN Constipation Mirtazapine 7.5 mg 12/04/20 21:00 12/08/20 22:08 Mirtazapine 7.5 Mg Tablet PO 7.5 mg BEDTIME DOMINICK Administration Non-Formulary Medication 1 each 12/04/20 21:00 12/09/20 08:40 Patient Own Medication PO 1 each BID DOMINICK Administration Omeprazole 20 mg 12/09/20 16:30 Omeprazole 20 Mg Capsule.Dr PO BID@0630,1630 [facility] Ondansetron HCl 4 mg 12/04/20 15:34 Ondansetron Odt 4 Mg Tab.Rapdis TRANSLINGU Q8H PRN nausea/vomiting Ondansetron HCl 4 mg 12/04/20 15:34 Ondansetron Hcl 4 Mg/2 Ml Vial IVPUSH Q8H PRN Nausea and Vomiting Quetiapine Fumarate 37.5 mg 12/04/20 21:00 12/08/20 22:07 Quetiapine Fumarate 25 Mg Tablet PO 37.5 mg BEDTIME DOMINICK Administration Labs CBC & Chem 7: 12/09/20 10:06 12/06/20 08:39 Assessment and Plan (1) Increased oxygen demand: Status: Acute (2) Pneumonia: Status: Acute (3) Pulmonary fibrosis: Status: Acute Assessment and Plan: a 80-year-old male with past medical history of COPD, pulmonary fibrosis, CVA, CKD, depression, CHF, anxiety, who was discharged from [facility] to the psych unit on December 04 after treatment for hypoxic respiratory failure and pneumonia noticed to increased oxygen requirement. Recent Pneumonia Continue azithromycin finish total 7/10 days Repeated CXR showing no acute findings but chronic severe pulmonary fibrosis Increased oxygen requirement BNP mildly elevated REcieved lasix with good response Incentive spirometry home oxygen evaluation History of pulmonary fibrosis prednisone therapy D3/3 Budesonide inhaler Evaluated by pulmonology, consider echo Physical deconditioning Patient overall is depressed and physically deconditioned why not interested in doing much activities which is worsening his condition overall start physical therapy Thank you for the consult, will continue to monitor the patient with you as needed. Please contact hospitalist team for any question.
--- NOTE | 2020-12-09 15:59 | PM.CNCAR ---
History of Present Illness History of Present Illness Date of Service: 12/09/20 Requesting physician: Blane Chowdhury Chief complaint: ? CHF Narrative: 80-year-old gentleman who is currently at the inpatient psych facility for major depression. He has background history of COPD, pulmonary fibrosis, CVA, chronic kidney disease, depression and congestive heart failure. He had hypoxic respiratory failure due to pneumonia and was transferred to inpatient psych facility on my 26. He is actively being followed by the medicine team also. He is on antibiotics for the pneumonia right now. His x-ray is showing pulmonary fibrosis. His oxygen requirements were increasing which led to a BNP testing which was mildly elevated. We were asked to assess for congestive heart failure. Patient denies any dyspnea right now. He has had his breathing is improved. He occasionally gets tightness like feeling which lasts few seconds and happens in the middle of the chest. He is not physically active. No other issues right now. FOR[facility]LY [facility] Past Medical History Medical History Anemia Anxiety Bronchiectasis Cerebrovascular disease Chronic hyponatremia CKD (chronic kidney disease) stage 3, GFR 30-59 ml/min Degenerative arthritis Depression History of electroconvulsive therapy Hx of bladder cancer Hydrocele Pulmonary fibrosis Pulmonary fibrosis Family History Family History Father Colon cancer Surgical History Surgical History History of bladder surgery Social History Social History Household Members: Spouse Housing: House Do you presently have visiting nurse or other home services: Yes Smoking Status: Never smoker Second Hand Smoke Exposure: No Use of substances other than those prescribed or required for medical reasons: Yes Substance Use Type: Marijuana Substance Use Frequency: Daily Currently Displaying Signs/Symptoms of Drug Intoxication Withdrawal: No Any prior treatment program specific to substance use: No Have you been hit, kicked, punched, or otherwise hurt by someone within the past year? If so, by whom?: No Do you feel safe in your current relationship?: Yes Is there a partner from a previous relationship who is making you feel unsafe now?: No Are you made to feel afraid or neglected: No Advance Directives: No Advance Directives Information Provided: No Advance Directives on File: No Advance Directives Date on File: 11/27/20 Do you have thoughts of harming others: None Do you have a plan to hurt others: No Plan Recently lost weight without trying: No service: No Current occupational status: retired Sexual orientation: Straight/Heterosexual Meds Allergies Allergy/AdvReac Type Severity Reaction Status Date / Time Sulfa (Sulfonamide Allergy Unknown UNKNOWN Verified 12/01/20 09:47 Antibiotics) [SULFA (SULFONAMIDE ANTIBIOTICS)] zoster vaccine live Allergy Hives Verified 12/01/20 09:47 Active Medications: Current Medications Generic Name Dose Route Start Last Admin Trade Name Freq PRN Reason Stop Dose Admin Acetaminophen 650 mg 12/04/20 15:34 12/05/20 16:07 Acetaminophen 325 Mg Tablet PO 650 mg Q6H PRN Administration Pain, Mild (Pain Scale 1-3) Acetaminophen 650 mg 12/04/20 15:37 Acetaminophen 325 Mg Tablet PO Q6H PRN Headache/Pain Mild Scale (1-3) Al Hydroxide/Mg Hydroxide 30 ml 12/04/20 15:37 Magnesium Hydrox/Alum Hydrox 30 Ml Oral.Susp PO Q6H PRN Heartburn/Nausea Azithromycin 500 mg 12/05/20 20:00 12/08/20 22:08 Azithromycin 500 Mg Tablet PO 12/11/20 20:01 500 mg Q24H DOMINICK Administration Brexpiprazole 0.5 mg 12/08/20 09:00 12/09/20 08:40 Brexpiprazole 1 Mg Tablet PO 0.5 mg DAILY DOMINICK Administration Budesonide 2 puff 12/06/20 10:21 12/09/20 08:40 Budesonide 180 Mcg Aer.Pow.Ba INHALE 2 puff RBID DOMINICK Administration Docusate Sodium 100 mg 12/04/20 15:34 Docusate Sodium 100 Mg Capsule PO DAILY PRN Constipation Famotidine 20 mg 12/05/20 09:00 12/09/20 08:49 Famotidine 20 Mg Tablet PO 20 mg DAILY DOMINICK Administration Guaifenesin 600 mg 12/07/20 14:20 12/09/20 08:47 Guaifenesin La 600 Mg Tab.Er.12h PO 12/12/20 14:19 600 mg BID DOMINICK Administration Guaifenesin/Dextromethorphan 5 ml 12/04/20 15:34 12/06/20 18:21 Guaifenesin Dm 100/10/5 Ml 5 Ml Syrup PO 5 ml Q6H PRN Administration cough Hydroxyzine HCl 25 mg 12/04/20 15:37 12/08/20 22:22 Hydroxyzine Hcl 25 Mg Tablet PO 25 mg BEDTIME PRN Administration Anxiety Loperamide HCl 2 mg 12/08/20 16:31 12/08/20 17:05 Loperamide Hcl 2 Mg Capsule PO 2 mg Q4H PRN Administration Diarrhea Lorazepam 0.5 mg 12/08/20 09:00 12/09/20 08:47 Lorazepam 0.5 Mg Tablet PO 0.5 mg BID DOMINICK Administration Magnesium Hydroxide 30 ml 12/04/20 15:37 Milk Of Magnesia 30 Ml Oral.Susp PO DAILY PRN Constipation Mirtazapine 7.5 mg 12/04/20 21:00 12/08/20 22:08 Mirtazapine 7.5 Mg Tablet PO 7.5 mg BEDTIME DOMINICK Administration Non-Formulary Medication 1 each 12/04/20 21:00 12/09/20 08:40 Patient Own Medication PO 1 each BID DOMINICK Administration Omeprazole 20 mg 12/09/20 16:30 Omeprazole 20 Mg Capsule. PO BID@0630,1630 DOMINICK Ondansetron HCl 4 mg 12/04/20 15:34 Ondansetron Odt 4 Mg Tab.Rapdis TRANSLINGU Q8H PRN nausea/vomiting Ondansetron HCl 4 mg 12/04/20 15:34 Ondansetron Hcl 4 Mg/2 Ml Vial IVPUSH Q8H PRN Nausea and Vomiting Quetiapine Fumarate 37.5 mg 12/04/20 21:00 12/08/20 22:07 Quetiapine Fumarate 25 Mg Tablet PO 37.5 mg BEDTIME DOMINICK Administration Home Medications Medication Instructions Recorded Confirmed Last Taken Type Latuda 1 tab PO DAILY 11/25/20 12/01/20 11/25/20 History Ofev 150 mg PO BID 11/25/20 12/01/20 11/25/20 History docusate sodium [Stool Softener] 1 cap PO BID PRN 11/25/20 12/01/20 11/25/20 History lorazepam 1 tab PO BID PRN 11/25/20 12/01/20 11/25/20 History mirtazapine 1 tab PO BEDTIME 11/25/20 12/01/20 11/24/20 History ondansetron 1 tab PO Q8H PRN 11/25/20 12/01/20 Unknown History quetiapine 37.5 mg PO BEDTIME 11/25/20 12/01/20 11/24/20 History Physical Exam Vital Signs: Vital Signs: Last Vital Signs Temp 97.5 F 12/09/20 13:59 Pulse 87 12/09/20 13:59 Resp 22 H 12/09/20 13:59 BP 125/73 12/09/20 13:59 Pulse Ox 94 12/09/20 13:59 GENERAL APPEARANCE: in no acute distress, depressed. HEENT: unremarkable. HEAD: normocephalic, atraumatic. NECK/THYROID: no carotid bruit, no jugular venous distention. SKIN: no suspicious lesions, warm and dry. HEART: no murmurs, regular rate and rhythm, S1, S2 normal. LUNGS: Fine crackles at bases. ABDOMEN: normal, bowel sounds present, soft, nontender, nondistended. EXTREMITIES: no clubbing, cyanosis, or edema. PERIPHERAL PULSES: equal. NEUROLOGIC: nonfocal, alert and oriented. PSYCH: Depressed. Results Labs and Meds Result diagrams: 12/09/20 10:06 12/06/20 08:39 Lab results: Laboratory Results - last 24 hr 12/09/20 12/09/20 10:06 10:06 WBC 12.5 H RBC 3.45 L Hgb 10.8 L Hct 32.7 L MCV 94.8 MCH 31.3 MCHC 33.0 RDW 14.7 Plt Count 327 D MPV 10.5 Immature Gran % (Auto) 0.6 H Neut % (Auto) 65.4 Lymph % (Auto) 25.1 [place] % (Auto) 7.7 Eos % (Auto) 1.2 Baso % (Auto) 0.0 Lymph # (Auto) 3.2 [place] # (Auto) 1.0 Eos # (Auto) 0.2 Baso # (Auto) 0.0 Abs Immat Gran (auto) 0.07 H Absolute Neuts (auto) 8.2 Absolute Nucleated RBC 0.000 Nucleated RBC % (auto) 0.0 B-Natriuretic Peptide 58 Assessment and Plan (1) Increased oxygen demand: Status: Acute (2) CKD (chronic kidney disease) stage 3, GFR 30-59 ml/min: Status: Acute (3) Pulmonary fibrosis: Status: Acute Pleasant 80-year-old gentleman with major depression who is currently inpatient at the [facility] for [facility]. He presented for hypoxic respiratory failure due to pneumonia. Has background of pulmonary fibrosis. His chest x-ray showing changes consistent with pulmonary fibrosis. Clinically he is not volume overloaded. He received some diuretics which improved his BNP level. His oxygen level is steady at this point. I think he can stay on 20 mg of p.o. Lasix once a day. Clinically is not in heart failure right now. I think most of his exam findings are due to interstitial lung disease. Thank you for allowing me to participate in the care of your patient. Please feel free to contact me if you have any questions.
[2020-12-09 16:00] VITALS: BP 131/74; PULSE 69; TEMP 37.2; O2SAT 98
[2020-12-09] MEDS: Omeprazole 20 MG CAPSULE.DR PO (17:05)
[2020-12-09] MEDS: QUEtiapine Fumarate 25 MG TABLET 37.5 MG PO (20:36)
[2020-12-09] MEDS: Azithromycin 500 MG TABLET PO (20:40)
[2020-12-09] MEDS: Mirtazapine 7.5 MG TABLET PO (20:41)
--- NOTE | 2020-12-09 22:22 | P.PNPSI_ITS ---
Subjective Subjective Date of Service: 12/09/20 Reason For Visit: ? CHF Subjective Notes: Conditional Voluntary Interim History: Patient's case reviewed extensively with Dr. Webb records reviewed from pulmonary function tests from August case also reviewed with patient's . Patient depressed withdrawn despondent hopeless helpless swallowing study completed patient on altered diet Medication Compliance: Yes Mental Status Exam Mental Status Exam Patient Appearance: Fatigued Patient Orientation: Person, Place and Situation Level of Consciousness: Alert Patient Behavior: Dependent, Cooperative, Passive, Timid, Anxious, Fearful, Fatigued and Confused Mood Description: Depressed and Anxious Affect Description: Flat Patient Cognition Impaired: Yes Ability to Follow Directions: Fair Speech Pattern: Perseverating, Spontaneous Speech and Soft-Spoken Memory Description: Episodic Impaired Hallucinations: None Delusions: Not Present Thought Process: Rumination Thought Content: positive for [place], positive for Circumstantial and positive for Perseveration Depressive Symptoms: Increased Anxiety, Loss of Int. in Activity, Hopelessness, Unhappiness, Increased Fatigue, Low Self Esteem, Loss of Energy and Difficulty Concentrating Judgement: Poor Diagnostics Vital Signs (24Hr): Vital Signs - 24 hr 12/09/20 06:05 12/09/20 13:59 12/09/20 16:00 Temperature 98.1 F 97.5 F 98.9 F Pulse Rate 65 87 69 Respiratory Rate 16 22 H Blood Pressure 129/80 125/73 131/74 Pulse Oximetry 99 94 98 Labs Results: 12/09/20 10:06 12/06/20 08:39 Labs: Laboratory Results - last 48 hr 12/09/20 12/09/20 10:06 10:06 WBC 12.5 H RBC 3.45 L Hgb 10.8 L Hct 32.7 L MCV 94.8 MCH 31.3 MCHC 33.0 RDW 14.7 Plt Count 327 D MPV 10.5 Immature Gran % (Auto) 0.6 H Neut % (Auto) 65.4 Lymph % (Auto) 25.1 [place] % (Auto) 7.7 Eos % (Auto) 1.2 Baso % (Auto) 0.0 Lymph # (Auto) 3.2 [place] # (Auto) 1.0 Eos # (Auto) 0.2 Baso # (Auto) 0.0 Abs Immat Gran (auto) 0.07 H Absolute Neuts (auto) 8.2 Absolute Nucleated RBC 0.000 Nucleated RBC % (auto) 0.0 B-Natriuretic Peptide 58 Imaging Radiology Impressions: ITS Impressions Chest X-Ray 12/05/20 18:58 IMPRESSION: Severe chronic interstitial lung disease stable when compared to the prior study. There are probably new small trace pleural effusions present Medications Medications Current Medications Generic Name Dose Route Start Last Admin Trade Name Freq PRN Reason Stop Dose Admin Acetaminophen 650 mg 12/04/20 15:34 12/05/20 16:07 Acetaminophen 325 Mg Tablet PO 650 mg Q6H PRN Administration Pain, Mild (Pain Scale 1-3) Acetaminophen 650 mg 12/04/20 15:37 Acetaminophen 325 Mg Tablet PO Q6H PRN Headache/Pain Mild Scale (1-3) Al Hydroxide/Mg Hydroxide 30 ml 12/04/20 15:37 Magnesium Hydrox/Alum Hydrox 30 Ml Oral.Susp PO Q6H PRN Heartburn/Nausea Azithromycin 500 mg 12/05/20 20:00 12/09/20 20:40 Azithromycin 500 Mg Tablet PO 12/11/20 20:01 500 mg Q24H DOMINICK Administration Brexpiprazole 0.5 mg 12/08/20 09:00 12/09/20 08:40 Brexpiprazole 1 Mg Tablet PO 0.5 mg DAILY DOMINICK Administration Budesonide 2 puff 12/06/20 10:21 12/09/20 20:36 Budesonide 180 Mcg Aer.Pow.Ba INHALE 2 puff RBID DOMINICK Administration Docusate Sodium 100 mg 12/04/20 15:34 Docusate Sodium 100 Mg Capsule PO DAILY PRN Constipation Famotidine 20 mg 12/05/20 09:00 12/09/20 08:49 Famotidine 20 Mg Tablet PO 20 mg DAILY DOMINICK Administration Guaifenesin 600 mg 12/07/20 14:20 12/09/20 20:40 Guaifenesin La 600 Mg Tab.Er.12h PO 12/12/20 14:19 600 mg BID DOMINICK Administration Guaifenesin/Dextromethorphan 5 ml 12/04/20 15:34 12/06/20 18:21 Guaifenesin Dm 100/10/5 Ml 5 Ml Syrup PO 5 ml Q6H PRN Administration cough Hydroxyzine HCl 25 mg 12/04/20 15:37 12/08/20 22:22 Hydroxyzine Hcl 25 Mg Tablet PO 25 mg BEDTIME PRN Administration Anxiety Loperamide HCl 2 mg 12/08/20 16:31 12/08/20 17:05 Loperamide Hcl 2 Mg Capsule PO 2 mg Q4H PRN Administration Diarrhea Lorazepam 0.5 mg 12/08/20 09:00 12/09/20 20:41 Lorazepam 0.5 Mg Tablet PO 0.5 mg BID DOMINICK Administration Lorazepam 0.5 mg 12/09/20 19:27 Lorazepam 0.5 Mg Tablet PO Q6H PRN Anxiety Magnesium Hydroxide 30 ml 12/04/20 15:37 Milk Of Magnesia 30 Ml Oral.Susp PO DAILY PRN Constipation Mirtazapine 7.5 mg 12/04/20 21:00 12/09/20 20:41 Mirtazapine 7.5 Mg Tablet PO 7.5 mg BEDTIME DOMINICK Administration Non-Formulary Medication 1 each 12/04/20 21:00 12/09/20 20:36 Patient Own Medication PO 1 each BID DOMINICK Administration Omeprazole 20 mg 12/09/20 16:30 12/09/20 17:05 Omeprazole 20 Mg Capsule. PO 20 mg BID@0630,1630 DOMINICK Administration Ondansetron HCl 4 mg 12/04/20 15:34 Ondansetron Odt 4 Mg Tab.Rapdis TRANSLINGU Q8H PRN nausea/vomiting Ondansetron HCl 4 mg 12/04/20 15:34 Ondansetron Hcl 4 Mg/2 Ml Vial IVPUSH Q8H PRN Nausea and Vomiting Quetiapine Fumarate 37.5 mg 12/04/20 21:00 12/09/20 20:36 Quetiapine Fumarate 25 Mg Tablet PO 37.5 mg BEDTIME DOMINICK Administration Allergies Allergies Allergy/AdvReac Type Severity Reaction Status Date / Time Sulfa (Sulfonamide Allergy Unknown UNKNOWN Verified 12/01/20 09:47 Antibiotics) [SULFA (SULFONAMIDE ANTIBIOTICS)] zoster vaccine live Allergy Hives Verified 12/01/20 09:47 Assessment & Plan Assessment & Plan (1) Bipolar I disorder with depression, severe: Status: Acute Code(s): F31.4 - Bipolar disorder, current episode depressed, severe, without psychotic features Assessment and Plan: Increase Rexulti to 1 mg daily (2) Pulmonary fibrosis: Status: Acute Code(s): J84.10 - Pulmonary fibrosis, unspecified Assessment and Plan: Continue oxygen replacement (3) Swallowing dysfunction: Status: Acute Code(s): R13.10 - Dysphagia, unspecified Assessment and Plan: On modified diet diet barium swallow for tomorrow Greater than 50% of the session was spent on counseling and/or coordination of care Reason for contiued inpatient stay Substantial Risk for: inability to function, rapid decompensation and med/psych decompensation
[2020-12-10 06:05] VITALS: BP 121/64; PULSE 65; RESP 18; TEMP 36.7; O2SAT 97
[2020-12-10] MEDS: Omeprazole 20 MG CAPSULE.DR PO ×2 (08:17→16:19)
[2020-12-10] MEDS: LORazepam 0.5 MG TABLET PO ×3 (08:18→20:05)
[2020-12-10] MEDS: guaiFENesin LA 600 MG TAB.ER.12H PO ×2 (08:18→20:05)
[2020-12-10] MEDS: Brexpiprazole 1 MG TABLET PO (08:18)
[2020-12-10] MEDS: Famotidine 20 MG TABLET PO (08:19)
[2020-12-10] MEDS: Budesonide 180 MCG AER.POW.BA 2 PUFF INHALE ×2 (08:20→20:06)
--- NOTE | 2020-12-10 12:53 | MHC.SLORD ---
Speech Language Pathology Order Status Patient is scheduled for MBSS today at 2pm. Results with recommendations to follow.
--- NOTE | 2020-12-10 17:48 | MHC.SL.IMP ---
Date of Plan of Treatment: 12/10/20 Onset of Symptoms/Illness: 12/09/20 Date Treatment Started: 12/10/20 Admitting Diagnosis: Modified Barium Swallow Study Fluoroscopic Evaluation of Swallowing Function CPT Code 30202 Evaluation Year: 2020 Reason for Study: Dysphagia Referring Physician: Dr. Blane Chowdhury Evaluating Clinician: Aleyda Iqbal Study Number: 1 Patient Name: MRN: Status: Inpatient, Wheelchair Age: 81 Gender: Male MEDICAL HISTORY: Primary (admitting) Diagnosis: Sepsis (A41.9) Depression Year of Onset or Diagnosis: 2020 Comorbidities: Congestive Heart Failure (I50.9) Chronic Obstructive Pulmonary Disease (J44.9) Chronic Kidney Disease Anxiety Past Medical History: Anemia (D64.9) Cerebrovascular Accident Bladder Cancer (C67.9) Bronchiectasis Current Medications: Please see in pt chart Current (pre-evaluation) Intake/Diet: Route: PO Diet Grade: Regular Liquid Consistencies: [place] Pre-Study Functional Oral Intake Scale (FOIS): 5- Total oral intake of multiple consistencies requiring special preparation Pain: None reported at time of study Primary Speech & Language Diagnosis: R13.12 Oropharyngeal Phase Dysphagia Secondary Speech & Language Diagnosis: Reason for Today's Visit: 52202 Modified Barium Swallow Study Comments: Pt reported unmodified baseline diet. He reported that more recently he notices coughing when eating and drinking. Pre-evaluation Dietary Consistencies: Chopped/Advanced (NDD3) Pre-evaluation Liquid Consistency: [place] Thick Pre-evaluation Medication Administration: Whole with Puree Medical History: Cancer: other COPD Emotional or Psychological Issues Pneumonia Stroke Other: See below Comments: Anxiety, anemia, bronchiectasis, cerebrovascular disease, CHF, CKD, chronic hyponatremia, degenerative arthritis, depression, hx ECT, hx bladder cancer, hydrocele, pulmonary fibrosis, COPD, CVA [facility] Fall Risk Assessment Score: Oral Motor Exam Facial Symmetry: Symmetrical Facial Movement: Oral-Facial Facial Miscellaneous Observations: Mouth Occlusion: Normal Oral-Facial Teeth Characteristics: Intact/Normal Partially Missing Oral-Facial Teeth Miscellaneous Observation: Oral-Facial Lip Pucker Description: Normal Oral-Facial Smile (Lips) Description: Normal Oral-Facial Puff Cheeks Description: Normal Oral-Facial Lip Miscellaneous Comment: Tongue Size: Normal Tongue Frenum Length: Normal Tongue Excursion Description: Normal Tongue Range of Movement Description: Normal Tongue Speed of Movement Description: Normal Tongue Strength of Movement (against opposing pressure): Normal Tongue Movement Characteristics: Normal/Absent Tongue Movement Miscellaneous Observation: Oral Expression Ability: No Impairment Is patient able to manage secretions?: Yes Is patient able to produce volitional cough?: Yes Food and Liquid Trials: Oral Impairment: Lip Closure: 1=Interlabial escape; no progression to anterior tip Oral Impairment: Tongue Control During Bolus Hold: 0=Cohesive bolus between tongue to palatal seal Oral Impairment: Bolus Preparation/Mastication: 1=Slow prolonged chewing/mashing with complete re-collection Oral Impairment: Bolus Transport/Lingual Motion: 0=Brisk tongue motion Oral Impairment: Oral Residue: 1=Trace residue lining oral structures Oral Impairment:Initiation of Pharyngeal Swallow: 2=Bolus head at posterior laryngeal surface of epiglottis Pharyngeal Impairment: Soft Palate Elevation: 0=No bolus between soft palate (SP)/pharyngeal wall (PW) Pharyngeal Impairment: Larngeal Elevation: 1=Partial thyroid cartilage/arytenoids to epiglottic petiole movement Pharyngeal Impairment: Anterior Hyoid Excursion: 1=Partial anterior movement Pharyngeal Impairment: Epiglottic Movement: 0=Complete inversion Pharyngeal Impairment: Laryngeal Vestibular Closure:: 1=Incomplete: narrow column air/contrast in laryngeal vestibule Pharyngeal Impairment: Pharyngeal Stripping Wave: 0=Present: complete Pharyngeal Impairment: Pharyngeal Contraction: Did not test Pharyngeal Impairment: Pharyngoesophageal Segment Openin=Partial distention/partial duration: partial obstruction of flow Pharyngeal Impairment: Tongue Base (TB) Retraction: 2=Narrow column of contrast/air between TB and posterior PW Pharyngeal Impairment: Pharyngeal Residue: 2=Collection of residue within or on pharyngeal structures Pharyngeal Impairment: Espohogeal Clearance Upright Position: Did not test Impressions and Recommendations Clinicial Observations: OBJECTIVE: Time-out: performed at 2:17 Evaluation Start: 2:20; Stop: 2:27 Oxygen: 2 Litres/min, nasal cannula Patient Positioning: Seated 70-90 degrees Viewing Planes: LATERAL ONLY Contrast: MBSImP? Standardized Protocol using commercially prepared, standardized Barium viscosities, including: Varibar? THIN LIQUID (40% w/v, <15 cps) , Varibar? NECTAR (40% w/v, <150-450 cps) , Varibar? THIN HONEY (40% w/v, <800-1800 cps) , 1/2 Shortbread Cookie (1 x1 x.25 ) [facility] ID: [id number] [facility] Results: Lip closure for intraoral bolus containment resulted in interlabial escape, without progression to the anterior lip. Tongue control during bolus hold maintained a cohesive bolus held between tongue to palate seal. Bolus preparation and mastication resulted in slow, prolonged chewing/mashing but with complete re-collection. Bolus transport/lingual motion was with brisk tongue motion. Oral residue was a trace, lining oral structures. Initiation of the pharyngeal swallow occurred as the bolus head was at the posterior laryngeal surface of the epiglottis. Soft palate elevation resulted in no bolus between the soft palate and the pharyngeal wall. Laryngeal elevation was decreased, with partial superior movement of the thyroid cartilage/partial approximation of the arytenoids to the epiglottic petiole. Anterior hyoid excursion demonstrated partial anterior movement. Epiglottic movement resulted in complete inversion. Laryngeal vestibular closure was incomplete, with a narrow column of air/contrast noted within the laryngeal vestibule at the height of the swallow. Pharyngeal stripping wave was present and complete. Pharyngeal contraction could not be determined due to logistical reasons not related to physiologic impairment. Pharyngoesophageal segment opening demonstrated partial distension/partial duration, with partial obstruction of bolus flow. Tongue base retraction allowed a narrow column of contrast or air between the retracted tongue base and the posterior pharyngeal wall. Pharyngeal residue was a collection of residue within or on pharyngeal structures. Esophageal clearance in the upright position could not be assessed due to logistical reasons not related to physiologic impairment. Oral Impairment Score: 3 Pharyngeal Impairment Score: 8 (absence of score, component 13) Esophageal Impairment Score: --- (absence of score, component 17) Laryngeal Penetration and Aspiration: Penetration was observed in today's study. [place]ayson-thick, Thin Contrast entered the airway, contacted the vocal folds, and were ejected from the airway. ASSESSMENT: This exam was conducted by speech language pathologist and radiologist with patient seated at 90 degrees for lateral view only. Patient trialed the following liquid and solid consistencies: -teaspoon honey thick liquid barium -nectar thick liquid barium by straw -5 mL thin liquid barium -thin liquid barium cup sip -pureed solid (applesauce mixed with barium paste) -ground solid (chicken salad mixed with barium paste) -regular solid (Zainab Doone cookie coated in barium paste) Patient displays mild to moderate pharyngeal phase dysphagia characterized by the following components of swallowing physiology. ORAL PHASE: -mildly prolonged oral preparatory phase -mild oral residue with thicker consistencies PHARYNGEAL PHASE: -partial laryngeal elevation and excursion -incomplete laryngeal vestibular closure -reduced tongue base retraction -moderate pharyngeal retention No aspiration evident during this exam. Flash penetration was noted with both thin and nectar thick consistencies. Trace amount of thin and nectar thick liquid momentarily entered the airway above the vocal folds and subsequently ejected. No penetration was seen with honey thickened liquids, however significant more pharyngeal retention visualized with this consistency. Pharyngeal retention in the valleculae was visualized with pureed solids, ground solids, and regular solids. Pt able to clear some retention with cue for effortful swallow. Chin tuck, and head tilt to both sides did not aid in clearing residue. Mastication was mildly prolonged. Pharyngeal swallow trigger mildly delayed. Liquid Intake Recommendation: [place] Thick Liquid Intake Strategies: Small Sips Dietary Recommendations: Chopped/Advanced (NDD3) Medication Administration: Whole with Puree Compensatory Strategies Recommended: Sitting Upright (90 deg) Liquids from Cup Small Bites and Sips Alternate Liquids/Solids Supervision during eating and or drinking: Intermittent Supervision Recommended Treatments: Pharyngeal Resistive Exer Compens. Strategy Educat. Recommendation for Speech Therapy: Inpatient Speech Therapy Text Comment: CUSTOMS COMPLIANCE MANAGER recommends inpatient speech therapy to teach pharyngeal strengthening exercises and review compensatory strategies. No aspiration evident on exam however, penetration with thin and nectar thick liquids was visualized. Due to this penetration, pt is at risk of aspiration. Frequency/Duration: CUSTOMS COMPLIANCE MANAGER will continue to follow during hospitalization as appropriate. Date Range for Service Requested: Timeline to reassess: Land Agent Clinican/Clinical Fellow: Yes: Aleyda Iqbal M.A., CF-CUSTOMS COMPLIANCE MANAGER Supervisory Statement: Speech Language Pathologist:
[2020-12-10 18:00] VITALS: BP 130/79; PULSE 73; RESP 20; TEMP 36.4; O2SAT 97
[2020-12-10] MEDS: QUEtiapine Fumarate 25 MG TABLET 37.5 MG PO (20:03)
[2020-12-10] MEDS: Mirtazapine 7.5 MG TABLET PO (20:05)
[2020-12-10] MEDS: Azithromycin 500 MG TABLET PO (20:05)
--- NOTE | 2020-12-10 21:04 | HO.PSYCHPN ---
Subjective Subjective Date of Service: 12/10/20 Reason For Visit: ? CHF Subjective Notes: Conditional Voluntary Interim History: Patient remains quite depressed who hopeless helpless on continuous oxygen limited energy and motivation Medication Compliance: Yes Mental Status Exam Mental Status Exam Patient Appearance: Fatigued Patient Orientation: Person, Place and Situation Level of Consciousness: Alert Patient Behavior: Dependent, Cooperative, Passive, Timid, Anxious, Fearful, Fatigued and Confused Mood Description: Depressed and Anxious Affect Description: Flat Patient Cognition Impaired: Yes Ability to Follow Directions: Fair Speech Pattern: Perseverating, Spontaneous Speech and Soft-Spoken Memory Description: Episodic Impaired Hallucinations: None Delusions: Not Present Thought Process: Rumination Thought Content: positive for [place], positive for Circumstantial and positive for Perseveration Depressive Symptoms: Increased Anxiety, Loss of Int. in Activity, Hopelessness, Unhappiness, Increased Fatigue, Low Self Esteem, Loss of Energy and Difficulty Concentrating Judgement: Poor Diagnostics Vital Signs (24Hr): Vital Signs - 24 hr 12/10/20 06:05 Temperature 98.0 F Pulse Rate 65 Respiratory Rate 18 Blood Pressure 121/64 Pulse Oximetry 97 Labs Results: 12/09/20 10:06 12/06/20 08:39 Labs: Laboratory Results - last 48 hr 12/09/20 12/09/20 10:06 10:06 WBC 12.5 H RBC 3.45 L Hgb 10.8 L Hct 32.7 L MCV 94.8 MCH 31.3 MCHC 33.0 RDW 14.7 Plt Count 327 D MPV 10.5 Immature Gran % (Auto) 0.6 H Neut % (Auto) 65.4 Lymph % (Auto) 25.1 Emanuel % (Auto) 7.7 Eos % (Auto) 1.2 Baso % (Auto) 0.0 Lymph # (Auto) 3.2 Emanuel # (Auto) 1.0 Eos # (Auto) 0.2 Baso # (Auto) 0.0 Abs Immat Gran (auto) 0.07 H Absolute Neuts (auto) 8.2 Absolute Nucleated RBC 0.000 Nucleated RBC % (auto) 0.0 B-Natriuretic Peptide 58 Imaging Radiology Impressions: ITS Impressions Chest X-Ray 12/05/20 18:58 IMPRESSION: Severe chronic interstitial lung disease stable when compared to the prior study. There are probably new small trace pleural effusions present Modified Barium Swallow 12/10/20 14:00 IMPRESSION: 1. No evidence of aspiration. Transient penetration with thin and nectar consistency. 2. Abnormalities of the oral and pharyngeal phase of swallowing as described above, with moderate vallecular retention. 3. Please see speech pathology report for specific recommendations and further information. Medications Medications Current Medications Generic Name Dose Route Start Last Admin Trade Name Freq PRN Reason Stop Dose Admin Acetaminophen 650 mg 12/04/20 15:34 12/05/20 16:07 Acetaminophen 325 Mg Tablet PO 650 mg Q6H PRN Administration Pain, Mild (Pain Scale 1-3) Acetaminophen 650 mg 12/04/20 15:37 Acetaminophen 325 Mg Tablet PO Q6H PRN Headache/Pain Mild Scale (1-3) Al Hydroxide/Mg Hydroxide 30 ml 12/04/20 15:37 Magnesium Hydrox/Alum Hydrox 30 Ml Oral.Susp PO Q6H PRN Heartburn/Nausea Azithromycin 500 mg 12/05/20 20:00 12/10/20 20:05 Azithromycin 500 Mg Tablet PO 12/11/20 20:01 500 mg Q24H DOMINICK Administration Brexpiprazole 1 mg 12/10/20 09:00 12/10/20 08:18 Brexpiprazole 1 Mg Tablet PO 1 mg DAILY DOMINICK Administration Budesonide 2 puff 12/06/20 10:21 12/10/20 20:06 Budesonide 180 Mcg Aer.Pow.Ba INHALE 2 puff RBID DOMINICK Administration Docusate Sodium 100 mg 12/04/20 15:34 Docusate Sodium 100 Mg Capsule PO DAILY PRN Constipation Famotidine 20 mg 12/05/20 09:00 12/10/20 08:19 Famotidine 20 Mg Tablet PO 20 mg DAILY DOMINICK Administration Guaifenesin 600 mg 12/07/20 14:20 12/10/20 20:05 Guaifenesin La 600 Mg Tab.Er.12h PO 12/12/20 14:19 600 mg BID DOMINICK Administration Guaifenesin/Dextromethorphan 5 ml 12/04/20 15:34 12/06/20 18:21 Guaifenesin Dm 100/10/5 Ml 5 Ml Syrup PO 5 ml Q6H PRN Administration cough Hydroxyzine HCl 25 mg 12/04/20 15:37 12/08/20 22:22 Hydroxyzine Hcl 25 Mg Tablet PO 25 mg BEDTIME PRN Administration Anxiety Loperamide HCl 2 mg 12/08/20 16:31 12/08/20 17:05 Loperamide Hcl 2 Mg Capsule PO 2 mg Q4H PRN Administration Diarrhea Lorazepam 0.5 mg 12/08/20 09:00 12/10/20 20:05 Lorazepam 0.5 Mg Tablet PO 0.5 mg BID DOMINICK Administration Lorazepam 0.5 mg 12/09/20 19:27 12/10/20 16:25 Lorazepam 0.5 Mg Tablet PO 0.5 mg Q6H PRN Administration Anxiety Magnesium Hydroxide 30 ml 12/04/20 15:37 Milk Of Magnesia 30 Ml Oral.Susp PO DAILY PRN Constipation Mirtazapine 7.5 mg 12/04/20 21:00 12/10/20 20:05 Mirtazapine 7.5 Mg Tablet PO 7.5 mg BEDTIME DOMINICK Administration Non-Formulary Medication 1 each 12/04/20 21:00 12/10/20 20:06 Patient Own Medication PO 1 each BID DOMINICK Administration Omeprazole 20 mg 12/09/20 16:30 12/10/20 16:19 Omeprazole 20 Mg Capsule. PO 20 mg BID@0630,6350 DOMINICK Administration Ondansetron HCl 4 mg 12/04/20 15:34 Ondansetron Odt 4 Mg Tab.Rapdis TRANSLINGU Q8H PRN nausea/vomiting Ondansetron HCl 4 mg 12/04/20 15:34 Ondansetron Hcl 4 Mg/2 Ml Vial IVPUSH Q8H PRN Nausea and Vomiting Quetiapine Fumarate 37.5 mg 12/04/20 21:00 12/10/20 20:03 Quetiapine Fumarate 25 Mg Tablet PO 37.5 mg BEDTIME DOMINICK Administration Allergies Allergies Allergy/AdvReac Type Severity Reaction Status Date / Time Sulfa (Sulfonamide Allergy Unknown UNKNOWN Verified 12/01/20 09:47 Antibiotics) [SULFA (SULFONAMIDE ANTIBIOTICS)] zoster vaccine live Allergy Hives Verified 12/01/20 09:47 Assessment & Plan Assessment & Plan (1) Bipolar I disorder with depression, severe: Status: Acute Code(s): F31.4 - Bipolar disorder, current episode depressed, severe, without psychotic features Assessment and Plan: Continue Rexulti will add low-dose sertraline continue hospitalist and Pulmonary input case reviewed extensively with patient. Barium swallow reviewed Greater than 50% of the session was spent on counseling and/or coordination of care Reason for contiued inpatient stay Substantial Risk for: inability to function and rapid decompensation
[2020-12-11] MEDS: Omeprazole 20 MG CAPSULE.DR PO ×2 (06:46→16:47)
[2020-12-11 07:30] VITALS: BP 109/55; PULSE 67; RESP 28; TEMP 36.3; O2SAT 97
[2020-12-11] MEDS: Famotidine 20 MG TABLET PO (09:07)
[2020-12-11] MEDS: Budesonide 180 MCG AER.POW.BA 2 PUFF INHALE ×2 (09:07→21:50)
[2020-12-11] MEDS: LORazepam 0.5 MG TABLET PO ×2 (09:08→21:44)
[2020-12-11] MEDS: Brexpiprazole 1 MG TABLET PO (09:08)
[2020-12-11] MEDS: guaiFENesin LA 600 MG TAB.ER.12H PO ×2 (09:08→21:44)
[2020-12-11] MEDS: Sertraline HCL 25 MG TABLET PO (09:08)
--- NOTE | 2020-12-11 10:00 | ECG_ITS ---
Test Reason : SOB ON REXULTI SEROQUEL PULM FIBROSIS Blood Pressure : / mmHG Vent. Rate : 069 BPM Atrial Rate : 069 BPM P-R Int : 146 ms QRS Dur : 086 ms QT Int : 416 ms P-R-T Axes : 037 021 007 degrees QTc Int : 445 ms Normal sinus rhythm Normal ECG When compared with ECG of 25-NOV-2020 19:31, No significant change was found Referred By: Blane Chowdhury Electronically Signed By:Joni Park
[2020-12-11 15:01] VITALS: PULSE 66; PULSE 71; PULSE 92; O2SAT 87; O2SAT 90; O2SAT 96
--- NOTE | 2020-12-11 16:33 | MHC.SLORD ---
Speech Language Pathology Order Status: MBSS completed yesterday, which revealed mild delay in swallow trigger, pharyngeal retention, and penetration with liquids. Patient is recommended CHOPPED/ADVANCED (NDD3) solids and NECTAR THICK liquids with pills WHOLE in PUREE. SHIPPING AND RECEIVING ASSISTANT will continue to follow.
[2020-12-11 16:45] VITALS: BP 124/67; PULSE 72; RESP 28; TEMP 37.1; O2SAT 93
--- NOTE | 2020-12-11 16:57 | PM.PNPUL ---
Subjective Subjective Date of Service: 12/11/20 Interval history: FiO2 requirements improved. On oxygen evaluation today no desaturation at rest, no significant desaturation with ambulation except with significant exertion or with recuperation. Objective Data Labs CBC & Chem 7: 12/09/20 10:06 12/06/20 08:39 Review of Systems Cardiovascular: Denies chest pain, Denies leg edema and Denies dyspnea Respiratory: Denies cough, Denies excessive phlegm production and Denies dyspnea Physical Exam Vital Signs: Vital Signs: Last Vital Signs Temp 97.4 F 12/11/20 07:30 Pulse 67 12/11/20 07:30 Resp 28 H 12/11/20 07:30 BP 109/55 L 12/11/20 07:30 Pulse Ox 97 12/11/20 07:30 Const: General: no acute distress, alert and awake Eyes: Sclerae: sclerae normal EOM: EOMs intact bilaterally Neck: Neck: Yes no lymphadenopathy, Yes trachea midline and Yes supple Resp: Effort & Inspection: normal respiratory effort and no respiratory distress Auscultation: clear to auscultation bilaterally Cardio: Rate: regular rate Rhythm: regular rhythm Heart sounds: no gallops, no murmurs and no rubs GI: Palpation (GI): Soft to palpation and Other GI palpation findings present ( Nontender) Auscultation: normal bowel sounds Extrem: General: Yes no pedal edema, No clubbing and No cyanosis Assessment and Plan Assessment and plan (1) Increased oxygen demand: Status: Acute Assessment and Plan: Impression: 80-year-old gentleman with underlying advanced idiopathic pulmonary fibrosis noted to have increased being oxygen requirements after ECT. Patient has underlying advanced idiopathic pulmonary fibrosis with peripheral honeycombing and pulmonary cyst formation, fibrosis, traction bronchiectasis his followed by [facility] pulmonology Dr. Yee and is on Ofev for the last 3 years. On oxygen evaluation to day does not require supplemental oxygen when at rest, no desaturation with activity except with significant exertion or requperation thereafter. From pulmonary perspective patient does not have physiologic contraindications to further ECT or aggressive physical therapy. Recommendation: Would recommend supplemental oxygen at 1 L with exertion and aggressive physical therapy/pulmonary rehab program. (2) Pulmonary fibrosis: Status: Acute Time Spent With Patient Time with patient: 25 - 35 minutes
[2020-12-11] MEDS: Azithromycin 500 MG TABLET PO (21:44)
[2020-12-11] MEDS: hydrOXYzine HCL 25 MG TABLET PO (21:50)
[2020-12-11 22:00] VITALS: BP 125/78; PULSE 69; RESP 26; TEMP 37.1; O2SAT 93
--- NOTE | 2020-12-11 22:09 | HO.PSYCHPN ---
Subjective Subjective Date of Service: 12/11/20 Reason For Visit: ? CHF Subjective Notes: Conditional Voluntary Interim History: Patient seen extensively with his and with Dr. janey rockwell. Patient was able to be weaned off oxygen while resting however needs much encouragement to sit up to ambulate. Has required think it for fluids chopped food and aspiration precautions remains severely depressed Mental Status Exam Mental Status Exam Patient Appearance: Fatigued Patient Orientation: Person, Place and Situation Level of Consciousness: Alert Patient Behavior: Dependent, Cooperative, Passive, Timid, Anxious, Fearful, Fatigued and Confused Mood Description: Depressed and Anxious Affect Description: Flat Patient Cognition Impaired: Yes Ability to Follow Directions: Fair Speech Pattern: Perseverating, Spontaneous Speech and Soft-Spoken Memory Description: Episodic Impaired Hallucinations: None Delusions: Not Present Thought Process: Rumination Thought Content: positive for [place], positive for Circumstantial and positive for Perseveration Depressive Symptoms: Increased Anxiety, Loss of Int. in Activity, Hopelessness, Unhappiness, Increased Fatigue, Low Self Esteem, Loss of Energy and Difficulty Concentrating Judgement: Poor Diagnostics Vital Signs (24Hr): Vital Signs - 24 hr 12/11/20 07:30 12/11/20 16:45 Temperature 97.4 F 98.8 F Pulse Rate 67 72 Respiratory Rate 28 H 28 H Blood Pressure 109/55 L 124/67 Pulse Oximetry 97 93 Labs Results: 12/09/20 10:06 12/06/20 08:39 Imaging Radiology Impressions: ITS Impressions Chest X-Ray 12/05/20 18:58 IMPRESSION: Severe chronic interstitial lung disease stable when compared to the prior study. There are probably new small trace pleural effusions present Modified Barium Swallow 12/10/20 14:00 IMPRESSION: 1. No evidence of aspiration. Transient penetration with thin and nectar consistency. 2. Abnormalities of the oral and pharyngeal phase of swallowing as described above, with moderate vallecular retention. 3. Please see speech pathology report for specific recommendations and further information. Medications Medications Current Medications Generic Name Dose Route Start Last Admin Trade Name Freq PRN Reason Stop Dose Admin Acetaminophen 650 mg 12/04/20 15:37 Acetaminophen 325 Mg Tablet PO Q6H PRN Headache/Pain Mild Scale (1-3) Al Hydroxide/Mg Hydroxide 30 ml 12/04/20 15:37 Magnesium Hydrox/Alum Hydrox 30 Ml Oral.Susp PO Q6H PRN Heartburn/Nausea Brexpiprazole 1 mg 12/10/20 09:00 12/11/20 09:08 Brexpiprazole 1 Mg Tablet PO 1 mg DAILY DOMINICK Administration Budesonide 2 puff 12/06/20 10:21 12/11/20 21:50 Budesonide 180 Mcg Aer.Pow.Ba INHALE 2 puff RBID DOMINICK Administration Docusate Sodium 100 mg 12/04/20 15:34 Docusate Sodium 100 Mg Capsule PO DAILY PRN Constipation Famotidine 20 mg 12/05/20 09:00 12/11/20 09:07 Famotidine 20 Mg Tablet PO 20 mg DAILY DOMINICK Administration Fluoxetine HCl 5 mg 12/12/20 09:00 Fluoxetine Hcl Oral Solution 20 Mg/5 Ml Solution PO DAILY [facility] Guaifenesin 600 mg 12/07/20 14:20 12/11/20 21:44 Guaifenesin La 600 Mg Tab.Er.12h PO 12/12/20 14:19 600 mg BID DOMINICK Administration Guaifenesin/Dextromethorphan 5 ml 12/04/20 15:34 12/06/20 18:21 Guaifenesin Dm 100/10/5 Ml 5 Ml Syrup PO 5 ml Q6H PRN Administration cough Hydroxyzine HCl 25 mg 12/04/20 15:37 12/11/20 21:50 Hydroxyzine Hcl 25 Mg Tablet PO 25 mg BEDTIME PRN Administration Anxiety Loperamide HCl 2 mg 12/08/20 16:31 12/08/20 17:05 Loperamide Hcl 2 Mg Capsule PO 2 mg Q4H PRN Administration Diarrhea Lorazepam 0.5 mg 12/08/20 09:00 12/11/20 21:44 Lorazepam 0.5 Mg Tablet PO 0.5 mg BID DOMINICK Administration Lorazepam 0.5 mg 12/09/20 19:27 12/10/20 16:25 Lorazepam 0.5 Mg Tablet PO 0.5 mg Q6H PRN Administration Anxiety Magnesium Hydroxide 30 ml 12/04/20 15:37 Milk Of Magnesia 30 Ml Oral.Susp PO DAILY PRN Constipation Non-Formulary Medication 1 each 12/04/20 21:00 12/11/20 21:50 Patient Own Medication PO 1 each BID DOMINICK Administration Omeprazole 20 mg 12/09/20 16:30 12/11/20 16:47 Omeprazole 20 Mg Capsule.Dr PO 20 mg BID@0630,5000 DOMINICK Administration Ondansetron HCl 4 mg 12/04/20 15:34 Ondansetron Odt 4 Mg Tab.Rapdis TRANSLINGU Q8H PRN nausea/vomiting Ondansetron HCl 4 mg 12/04/20 15:34 Ondansetron Hcl 4 Mg/2 Ml Vial IVPUSH Q8H PRN Nausea and Vomiting Allergies Allergies Allergy/AdvReac Type Severity Reaction Status Date / Time Sulfa (Sulfonamide Allergy Unknown UNKNOWN Verified 12/01/20 09:47 Antibiotics) [SULFA (SULFONAMIDE ANTIBIOTICS)] zoster vaccine live Allergy Hives Verified 12/01/20 09:47 Assessment & Plan Assessment & Plan (1) Swallowing dysfunction: Status: Acute Code(s): R13.10 - Dysphagia, unspecified Assessment and Plan: See swallowing study suggestions (2) Bipolar I disorder with depression, severe: Status: Acute Code(s): F31.4 - Bipolar disorder, current episode depressed, severe, without psychotic features Assessment and Plan: Start fluoxetine increase as tolerated continue Rexulti encourage ambulation Greater than 50% of the session was spent on counseling and/or coordination of care Reason for contiued inpatient stay Substantial Risk for: inability to function and rapid decompensation
[2020-12-12] MEDS: Loperamide HCl 2 MG CAPSULE PO (02:22)
[2020-12-12 02:25] VITALS: BP 100/58; PULSE 73; RESP 30; TEMP 35.9; O2SAT 81
[2020-12-12] MEDS: Omeprazole 20 MG CAPSULE.DR PO ×2 (06:40→17:03)
[2020-12-12] MEDS: guaiFENesin LA 600 MG TAB.ER.12H PO (08:51)
[2020-12-12] MEDS: FLUoxetine HCl Oral Solution 20 MG/5 ML SOLUTION 5 MG PO (08:51)
[2020-12-12] MEDS: Famotidine 20 MG TABLET PO (08:51)
[2020-12-12] MEDS: LORazepam 0.5 MG TABLET PO ×2 (08:51→20:44)
[2020-12-12] MEDS: Brexpiprazole 1 MG TABLET PO (08:51)
[2020-12-12] MEDS: Budesonide 180 MCG AER.POW.BA 2 PUFF INHALE ×2 (08:51→20:44)
[2020-12-12 19:49] VITALS: BP 135/64; PULSE 65; RESP 24; TEMP 36.4; O2SAT 98
--- NOTE | 2020-12-12 21:28 | HO.PSYCHPN ---
Subjective Subjective Date of Service: 12/12/20 Reason For Visit: ? CHF Subjective Notes: Conditional Voluntary Interim History: Sai was lying in bed and complained of considerable depression. ECT on hold while medically stabilizing Medication Compliance: Yes Side effects from medications: No Attending Groups: No Review of Systems Medical Review of Systems: unchanged Review of Systems Review of Systems Yes all other systems are reviewed and are negative Mental Status Exam Mental Status Exam Patient Appearance: Fatigued Patient Orientation: Person, Place and Situation Level of Consciousness: Alert Patient Behavior: Dependent, Cooperative, Passive, Timid, Anxious, Fearful, Fatigued and Confused Mood Description: Depressed and Anxious Affect Description: Flat Patient Cognition Impaired: Yes Ability to Follow Directions: Fair Speech Pattern: Perseverating, Spontaneous Speech and Soft-Spoken Memory Description: Episodic Impaired Hallucinations: None Delusions: Not Present Thought Process: Rumination Thought Content: positive for [place], positive for Circumstantial, positive for Perseveration, negative for Suicidal Ideation and negative for Homicidal Ideation Depressive Symptoms: Increased Anxiety, Loss of Int. in Activity, Hopelessness, Unhappiness, Increased Fatigue, Low Self Esteem, Loss of Energy and Difficulty Concentrating Judgement: Poor Diagnostics Vital Signs (24Hr): Vital Signs - 24 hr 12/11/20 22:00 12/12/20 02:25 12/12/20 19:49 Temperature 98.8 F 96.7 F L 97.6 F Pulse Rate 69 73 65 Respiratory Rate 26 H 30 H 24 H Blood Pressure 125/78 100/58 L 135/64 Pulse Oximetry 93 81 L 98 Labs Results: 12/09/20 10:06 12/06/20 08:39 Imaging Radiology Impressions: ITS Impressions Chest X-Ray 12/05/20 18:58 IMPRESSION: Severe chronic interstitial lung disease stable when compared to the prior study. There are probably new small trace pleural effusions present Modified Barium Swallow 12/10/20 14:00 IMPRESSION: 1. No evidence of aspiration. Transient penetration with thin and nectar consistency. 2. Abnormalities of the oral and pharyngeal phase of swallowing as described above, with moderate vallecular retention. 3. Please see speech pathology report for specific recommendations and further information. Medications Medications Current Medications Generic Name Dose Route Start Last Admin Trade Name Freq PRN Reason Stop Dose Admin Acetaminophen 650 mg 12/04/20 15:37 Acetaminophen 325 Mg Tablet PO Q6H PRN Headache/Pain Mild Scale (1-3) Al Hydroxide/Mg Hydroxide 30 ml 12/04/20 15:37 Magnesium Hydrox/Alum Hydrox 30 Ml Oral.Susp PO Q6H PRN Heartburn/Nausea Brexpiprazole 1 mg 12/10/20 09:00 12/12/20 08:51 Brexpiprazole 1 Mg Tablet PO 1 mg DAILY DOMINICK Administration Budesonide 2 puff 12/06/20 10:21 12/12/20 20:44 Budesonide 180 Mcg Aer.Pow.Ba INHALE 2 puff RBID DOMINICK Administration Docusate Sodium 100 mg 12/04/20 15:34 Docusate Sodium 100 Mg Capsule PO DAILY PRN Constipation Famotidine 20 mg 12/05/20 09:00 12/12/20 08:51 Famotidine 20 Mg Tablet PO 20 mg DAILY DOMINICK Administration Fluoxetine HCl 5 mg 12/12/20 09:00 12/12/20 08:51 Fluoxetine Hcl Oral Solution 20 Mg/5 Ml Solution PO 5 mg DAILY DOMINICK Administration Guaifenesin/Dextromethorphan 5 ml 12/04/20 15:34 12/06/20 18:21 Guaifenesin Dm 100/10/5 Ml 5 Ml Syrup PO 5 ml Q6H PRN Administration cough Hydroxyzine HCl 25 mg 12/04/20 15:37 12/11/20 21:50 Hydroxyzine Hcl 25 Mg Tablet PO 25 mg BEDTIME PRN Administration Anxiety Loperamide HCl 2 mg 12/08/20 16:31 12/12/20 02:22 Loperamide Hcl 2 Mg Capsule PO 2 mg Q4H PRN Administration Diarrhea Lorazepam 0.5 mg 12/08/20 09:00 12/12/20 20:44 Lorazepam 0.5 Mg Tablet PO 0.5 mg BID DOMINICK Administration Lorazepam 0.5 mg 12/09/20 19:27 12/10/20 16:25 Lorazepam 0.5 Mg Tablet PO 0.5 mg Q6H PRN Administration Anxiety Magnesium Hydroxide 30 ml 12/04/20 15:37 Milk Of Magnesia 30 Ml Oral.Susp PO DAILY PRN Constipation Non-Formulary Medication 1 each 12/04/20 21:00 12/12/20 20:44 Patient Own Medication PO 1 each BID DOMINICK Administration Omeprazole 20 mg 12/09/20 16:30 12/12/20 17:03 Omeprazole 20 Mg Capsule.Dr PO 20 mg BID@0630,5305 DOMINICK Administration Ondansetron HCl 4 mg 12/04/20 15:34 Ondansetron Odt 4 Mg Tab.Rapdis TRANSLINGU Q8H PRN nausea/vomiting Ondansetron HCl 4 mg 12/04/20 15:34 Ondansetron Hcl 4 Mg/2 Ml Vial IVPUSH Q8H PRN Nausea and Vomiting Allergies Allergies Allergy/AdvReac Type Severity Reaction Status Date / Time Sulfa (Sulfonamide Allergy Unknown UNKNOWN Verified 12/01/20 09:47 Antibiotics) [SULFA (SULFONAMIDE ANTIBIOTICS)] zoster vaccine live Allergy Hives Verified 12/01/20 09:47 Assessment & Plan Assessment & Plan (1) Bipolar I disorder with depression, severe: Status: Acute Code(s): F31.4 - Bipolar disorder, current episode depressed, severe, without psychotic features Assessment and Plan: CT current treatment plan Greater than 50% of the session was spent on counseling and/or coordination of care Patient educated on: diagnosis and medication risk/benefits Informed Consent: further education needed Reason for contiued inpatient stay Substantial Risk for: inability to function, rapid decompensation and med/psych decompensation
[2020-12-13 06:20] VITALS: BP 97/52; PULSE 69; RESP 24; TEMP 36.6; O2SAT 97
[2020-12-13] MEDS: Omeprazole 20 MG CAPSULE.DR PO ×2 (06:31→16:14)
[2020-12-13] MEDS: guaiFENesin DM 100/10/5 ML 5 ML SYRUP PO (06:32)
[2020-12-13] MEDS: Budesonide 180 MCG AER.POW.BA 2 PUFF INHALE ×2 (09:00→20:44)
[2020-12-13] MEDS: Brexpiprazole 1 MG TABLET PO (09:01)
[2020-12-13] MEDS: LORazepam 0.5 MG TABLET PO ×2 (09:02→17:54)
[2020-12-13] MEDS: Famotidine 20 MG TABLET PO (09:02)
[2020-12-13] MEDS: FLUoxetine HCl Oral Solution 20 MG/5 ML SOLUTION 5 MG PO (09:02)
[2020-12-13 13:00] VITALS: BP 103/55; PULSE 66; RESP 22; TEMP 36.8; O2SAT 100
--- NOTE | 2020-12-13 17:52 | HO.PSYCHPN ---
Subjective Subjective Date of Service: 12/13/20 Reason For Visit: ? CHF Interim History: Sai was lying in bed and complained of considerable depression. ECT on hold while medically stabilizing Review of Systems Review of Systems Yes all other systems are reviewed and are negative Constitutional: Denies daytime sleepiness, Denies excessive sweating, Denies fatigue, Denies fever(s), Denies lethargy, Denies malaise, Denies night sweats, Denies snoring and Denies weight loss Eyes: Denies blurry vision and Denies itchy eyes Denies nasal congestion, Denies post nasal drip, Denies sinus pain, Denies sinus pressure and Denies other ( Thrush) Cardiovascular: Denies chest pain, Denies pedal edema, Denies leg edema, Denies dyspnea, Denies orthopnea and Denies paroxysmal nocturnal dyspnea Respiratory: Reports chest congestion, Denies cough, Denies hemoptysis, Denies excessive phlegm production, Denies dyspnea, Denies snoring and Denies wheezing Gastrointestinal: Denies abdominal pain and Denies heartburn Musculoskeletal: Denies myalgias, Denies arthralgias and Denies joint swelling Skin/Breast: Denies rash Reports behavioral changes, Reports confusion and Denies seizure-like activity Psychiatric: Reports anxiety, Reports behavioral changes, Reports confusion, Reports depression, Reports difficulty concentrating, Reports hopelessness, Reports anhedonia and Reports panic attacks Endocrine: Denies excessive sweating, Denies fatigue and Denies heat intolerance Hematologic/Lymphatic: Denies easy bruising Allergic/Immunologic: Denies itchy eyes, Denies seasonal rhinorrhea and Denies wheezing Mental Status Exam Mental Status Exam Patient Appearance: Fatigued Patient Orientation: Person, Place and Situation Level of Consciousness: Alert Patient Behavior: Dependent, Cooperative, Passive, Timid, Anxious, Fearful, Fatigued and Confused Mood Description: Apathetic, Depressed and Anxious Affect Description: Apathetic and Flat Patient Cognition Impaired: Yes Ability to Follow Directions: Fair Speech Pattern: Perseverating, Spontaneous Speech and Soft-Spoken Memory Description: Episodic Impaired Hallucinations: None Delusions: Not Present Thought Process: Rumination and Slowed Thinking Thought Content: positive for Circumstantial and positive for Perseveration Depressive Symptoms: Increased Anxiety, Crying Spells, Significant Weight Loss, Feelings of Guilt, Low Self Esteem and Loss of Energy Judgement: Poor Diagnostics Vital Signs (24Hr): Vital Signs - 24 hr 12/12/20 19:49 04/04/21 06:20 12/13/20 13:00 Temperature 97.6 F 97.8 F 98.3 F Pulse Rate 65 69 66 Respiratory Rate 24 H 24 H 22 H Blood Pressure 135/64 97/52 L 103/55 L Pulse Oximetry 98 97 100 Labs Results: 12/09/20 10:06 12/06/20 08:39 Imaging Radiology Impressions: ITS Impressions Chest X-Ray 12/05/20 18:58 IMPRESSION: Severe chronic interstitial lung disease stable when compared to the prior study. There are probably new small trace pleural effusions present Modified Barium Swallow 12/10/20 14:00 IMPRESSION: 1. No evidence of aspiration. Transient penetration with thin and nectar consistency. 2. Abnormalities of the oral and pharyngeal phase of swallowing as described above, with moderate vallecular retention. 3. Please see speech pathology report for specific recommendations and further information. Medications Medications Current Medications Generic Name Dose Route Start Last Admin Trade Name Freq PRN Reason Stop Dose Admin Acetaminophen 650 mg 12/04/20 15:37 Acetaminophen 325 Mg Tablet PO Q6H PRN Headache/Pain Mild Scale (1-3) Al Hydroxide/Mg Hydroxide 30 ml 12/04/20 15:37 Magnesium Hydrox/Alum Hydrox 30 Ml Oral.Susp PO Q6H PRN Heartburn/Nausea Brexpiprazole 1 mg 12/10/20 09:00 12/13/20 09:01 Brexpiprazole 1 Mg Tablet PO 1 mg DAILY DOMINICK Administration Budesonide 2 puff 12/06/20 10:21 12/13/20 09:00 Budesonide 180 Mcg Aer.Pow.Ba INHALE 2 puff RBID DOMINICK Administration Docusate Sodium 100 mg 12/04/20 15:34 Docusate Sodium 100 Mg Capsule PO DAILY PRN Constipation Famotidine 20 mg 12/05/20 09:00 12/13/20 09:02 Famotidine 20 Mg Tablet PO 20 mg DAILY DOMINICK Administration Fluoxetine HCl 5 mg 12/12/20 09:00 12/13/20 09:02 Fluoxetine Hcl Oral Solution 20 Mg/5 Ml Solution PO 5 mg DAILY DOMINICK Administration Guaifenesin/Dextromethorphan 5 ml 12/04/20 15:34 12/13/20 06:32 Guaifenesin Dm 100/10/5 Ml 5 Ml Syrup PO 5 ml Q6H PRN Administration cough Hydroxyzine HCl 25 mg 12/04/20 15:37 12/11/20 21:50 Hydroxyzine Hcl 25 Mg Tablet PO 25 mg BEDTIME PRN Administration Anxiety Loperamide HCl 2 mg 12/08/20 16:31 12/12/20 02:22 Loperamide Hcl 2 Mg Capsule PO 2 mg Q4H PRN Administration Diarrhea Lorazepam 0.5 mg 12/09/20 19:27 12/13/20 09:02 Lorazepam 0.5 Mg Tablet PO 0.5 mg Q6H PRN Administration Anxiety Magnesium Hydroxide 30 ml 12/04/20 15:37 Milk Of Magnesia 30 Ml Oral.Susp PO DAILY PRN Constipation Non-Formulary Medication 1 each 12/04/20 21:00 12/13/20 09:06 Patient Own Medication PO 1 each BID DOMINICK Administration Omeprazole 20 mg 12/09/20 16:30 12/13/20 16:14 Omeprazole 20 Mg Capsule. PO 20 mg BID@0630,5060 DOMINICK Administration Ondansetron HCl 4 mg 12/04/20 15:34 Ondansetron Odt 4 Mg Tab.Rapdis TRANSLINGU Q8H PRN nausea/vomiting Ondansetron HCl 4 mg 12/04/20 15:34 Ondansetron Hcl 4 Mg/2 Ml Vial IVPUSH Q8H PRN Nausea and Vomiting Allergies Allergies Allergy/AdvReac Type Severity Reaction Status Date / Time Sulfa (Sulfonamide Allergy Unknown UNKNOWN Verified 12/01/20 09:47 Antibiotics) [SULFA (SULFONAMIDE ANTIBIOTICS)] zoster vaccine live Allergy Hives Verified 12/01/20 09:47 Assessment & Plan Assessment & Plan (1) Bipolar I disorder with depression, severe: Status: Acute Code(s): F31.4 - Bipolar disorder, current episode depressed, severe, without psychotic features Assessment and Plan: CT current treatment plan Greater than 50% of the session was spent on counseling and/or coordination of care Reason for contiued inpatient stay Substantial Risk for: inability to function and rapid decompensation
[2020-12-13 20:21] VITALS: BP 107/57; PULSE 70; RESP 20; TEMP 36.7; O2SAT 98
[2020-12-13] MEDS: hydrOXYzine HCL 25 MG TABLET PO (20:49)
[2020-12-14] MEDS: Omeprazole 20 MG CAPSULE.DR PO ×2 (06:14→16:39)
[2020-12-14 06:30] VITALS: BP 88/50; PULSE 62; RESP 22; TEMP 36.7; O2SAT 96
[2020-12-14] MEDS: FLUoxetine HCl Oral Solution 20 MG/5 ML SOLUTION 5 MG PO (08:58)
[2020-12-14] MEDS: Brexpiprazole 1 MG TABLET PO (08:59)
[2020-12-14] MEDS: Famotidine 20 MG TABLET PO (08:59)
[2020-12-14] MEDS: Budesonide 180 MCG AER.POW.BA 2 PUFF INHALE ×2 (08:59→20:42)
[2020-12-14] MEDS: LORazepam 0.5 MG TABLET PO ×3 (13:14→20:43)
--- NOTE | 2020-12-14 17:23 | PC.RT ---
pt. seen and assessed re: O2 needs. On arrival, pt. resting comfortably in bed with 1LNC in use. SpO2 and HR measured on 1L. SpO2 97-99%, HR 66-71. Removed O2, SpO2 and HR remained within acceptable range with lowest SpO2 measured at 90% when pt. was exerting himself when trying to sit up in bed. O2 requirements not measured with ambulation at this time. Would recommend using 1LNC with ambulation as previously noted in previous home oxygen evaluation.
[2020-12-14 18:00] VITALS: BP 114/70; PULSE 86; RESP 30; TEMP 36.6; O2SAT 92
[2020-12-14] MEDS: Clotrimazole 1 % Cream 15 GM TUBE 1 APPL TOPICAL (20:54)
[2020-12-14 23:21] VITALS: O2SAT 92
[2020-12-15] MEDS: Omeprazole 20 MG CAPSULE.DR PO ×2 (06:21→16:09)
[2020-12-15 06:30] VITALS: BP 129/61; PULSE 68; RESP 24; TEMP 36.6; O2SAT 93
[2020-12-15] MEDS: FLUoxetine HCl Oral Solution 20 MG/5 ML SOLUTION 10 MG PO (08:18)
[2020-12-15] MEDS: Brexpiprazole 1 MG TABLET PO (08:18)
[2020-12-15] MEDS: Budesonide 180 MCG AER.POW.BA 2 PUFF INHALE ×2 (08:18→20:25)
[2020-12-15] MEDS: Clotrimazole 1 % Cream 15 GM TUBE 1 APPL TOPICAL ×2 (08:18→20:25)
[2020-12-15] MEDS: Famotidine 20 MG TABLET PO (08:18)
[2020-12-15] MEDS: LORazepam 0.5 MG TABLET PO ×2 (13:20→20:24)
[2020-12-15 13:34] VITALS: BP 130/76; PULSE 82; RESP 32; TEMP 36.4; O2SAT 97
[2020-12-15 18:00] VITALS: BP 104/68; PULSE 88; RESP 20; TEMP 37.1; O2SAT 95
[2020-12-15] MEDS: hydrOXYzine HCL 25 MG TABLET PO (18:33)
--- NOTE | 2020-12-15 19:56 | PC.NURSE ---
coughing episode-patient had chopped meal served. he took one bite and then started coughing. patient was sitting upright at desk for meal. cough produced thick, clear mucous. it took patient time to recover from coughing. 02 applied. when coughing subsided patient requested to go back to bed but accepted re direction to stay sitting. patient did so for 20 minutes, cough and mucous no longer persisted. used incentive spirometer and then went to bed. HOB elevated. patient did not eat hs meal. fluids with thick it added.
--- NOTE | 2020-12-15 21:10 | HO.PSYCHPN ---
Subjective Subjective Date of Service: 12/14/20 Reason For Visit: ? CHF Subjective Notes: Conditional Voluntary Interim History: Patient depressed withdrawn easily fatigued has been on continuous O2 respiratory to re-evaluate perhaps some improvement with fluoxetine 5 mg COMPLAINS OF LOOSE STOOLS Medication Compliance: Yes Attending Groups: No Mental Status Exam Mental Status Exam Patient Appearance: Fatigued Patient Orientation: Person, Place and Situation Level of Consciousness: Alert Patient Behavior: Dependent, Cooperative, Passive, Timid, Anxious, Fearful, Fatigued and Confused Mood Description: Apathetic, Depressed and Anxious Affect Description: Apathetic and Flat Patient Cognition Impaired: Yes Ability to Follow Directions: Fair Speech Pattern: Perseverating, Spontaneous Speech and Soft-Spoken Memory Description: Episodic Impaired Hallucinations: None Delusions: Not Present Thought Process: Rumination and Slowed Thinking Thought Content: positive for Circumstantial and positive for Perseveration Depressive Symptoms: Increased Anxiety, Crying Spells, Significant Weight Loss, Feelings of Guilt, Low Self Esteem and Loss of Energy Judgement: Poor Diagnostics Vital Signs (24Hr): Vital Signs - 24 hr 12/14/20 23:21 12/15/20 06:30 12/15/20 13:34 Temperature 97.8 F 97.6 F Pulse Rate 68 82 Respiratory Rate 24 H 32 H Blood Pressure 129/61 130/76 Pulse Oximetry 92 93 97 12/15/20 18:00 Temperature 98.7 F Pulse Rate 88 Respiratory Rate 20 Blood Pressure 104/68 Pulse Oximetry 95 Labs Results: 12/09/20 10:06 12/06/20 08:39 Imaging Radiology Impressions: ITS Impressions Chest X-Ray 12/05/20 18:58 IMPRESSION: Severe chronic interstitial lung disease stable when compared to the prior study. There are probably new small trace pleural effusions present Modified Barium Swallow 12/10/20 14:00 IMPRESSION: 1. No evidence of aspiration. Transient penetration with thin and nectar consistency. 2. Abnormalities of the oral and pharyngeal phase of swallowing as described above, with moderate vallecular retention. 3. Please see speech pathology report for specific recommendations and further information. Medications Medications Current Medications Generic Name Dose Route Start Last Admin Trade Name Freq PRN Reason Stop Dose Admin Acetaminophen 650 mg 12/04/20 15:37 Acetaminophen 325 Mg Tablet PO Q6H PRN Headache/Pain Mild Scale (1-3) Al Hydroxide/Mg Hydroxide 30 ml 12/04/20 15:37 Magnesium Hydrox/Alum Hydrox 30 Ml Oral.Susp PO Q6H PRN Heartburn/Nausea Brexpiprazole 1 mg 12/16/20 17:00 Brexpiprazole 1 Mg Tablet PO DAILY@1700 [facility] Budesonide 2 puff 12/06/20 10:21 12/15/20 20:25 Budesonide 180 Mcg Aer.Pow.Ba INHALE 2 puff RBID DOMINICK Administration Clotrimazole 1 appl 12/14/20 21:00 12/15/20 20:25 Clotrimazole 1 % Cream 15 Gm Tube TOPICAL 1 appl BID DOMINICK Administration Protocol Docusate Sodium 100 mg 12/04/20 15:34 Docusate Sodium 100 Mg Capsule PO DAILY PRN Constipation Famotidine 20 mg 12/05/20 09:00 12/15/20 08:18 Famotidine 20 Mg Tablet PO 20 mg DAILY DOMINICK Administration Fluoxetine HCl 10 mg 12/15/20 09:00 12/15/20 08:18 Fluoxetine Hcl Oral Solution 20 Mg/5 Ml Solution PO 10 mg DAILY DOMINICK Administration Guaifenesin/Dextromethorphan 5 ml 12/04/20 15:34 12/13/20 06:32 Guaifenesin Dm 100/10/5 Ml 5 Ml Syrup PO 5 ml Q6H PRN Administration cough Hydroxyzine HCl 25 mg 12/04/20 15:37 12/13/20 20:49 Hydroxyzine Hcl 25 Mg Tablet PO 25 mg BEDTIME PRN Administration Anxiety Hydroxyzine HCl 25 mg 12/15/20 18:14 12/15/20 18:33 Hydroxyzine Hcl 25 Mg Tablet PO 25 mg Q6H PRN Administration Anxiety Loperamide HCl 2 mg 12/08/20 16:31 12/12/20 02:22 Loperamide Hcl 2 Mg Capsule PO 2 mg Q4H PRN Administration Diarrhea Lorazepam 0.5 mg 12/09/20 19:27 12/15/20 13:20 Lorazepam 0.5 Mg Tablet PO 0.5 mg Q6H PRN Administration Anxiety Lorazepam 0.5 mg 12/14/20 16:59 Lorazepam 0.5 Mg Tablet PO BEDTIME PRN Insomnia Lorazepam 0.5 mg 12/14/20 21:00 12/15/20 20:24 Lorazepam 0.5 Mg Tablet PO 0.5 mg BEDTIME DOMINICK Administration Magnesium Hydroxide 30 ml 12/04/20 15:37 Milk Of Magnesia 30 Ml Oral.Susp PO DAILY PRN Constipation Non-Formulary Medication 1 each 12/04/20 21:00 12/15/20 20:25 Patient Own Medication PO 1 each BID DOMINICK Administration Omeprazole 20 mg 12/09/20 16:30 12/15/20 16:09 Omeprazole 20 Mg Capsule. PO 20 mg BID@0630,1630 DOMINICK Administration Ondansetron HCl 4 mg 12/04/20 15:34 Ondansetron Odt 4 Mg Tab.Rapdis TRANSLINGU Q8H PRN nausea/vomiting Ondansetron HCl 4 mg 12/04/20 15:34 Ondansetron Hcl 4 Mg/2 Ml Vial IVPUSH Q8H PRN Nausea and Vomiting Allergies Allergies Allergy/AdvReac Type Severity Reaction Status Date / Time Sulfa (Sulfonamide Allergy Unknown UNKNOWN Verified 12/01/20 09:47 Antibiotics) [SULFA (SULFONAMIDE ANTIBIOTICS)] zoster vaccine live Allergy Hives Verified 12/01/20 09:47 Assessment & Plan Assessment & Plan (1) Bipolar I disorder with depression, severe: Status: Acute Code(s): F31.4 - Bipolar disorder, current episode depressed, severe, without psychotic features (2) CKD (chronic kidney disease) stage 3, GFR 30-59 ml/min: Status: Acute Code(s): N18.30 - Chronic kidney disease, stage 3 unspecified (3) Pulmonary fibrosis: Status: Acute Code(s): J84.10 - Pulmonary fibrosis, unspecified Assessment and Plan: Pulmonary re-evaluation on Prozac and Rexulti trial consider ECT but trying to avoid given patient's medical difficulties. Seroquel discontinued may been contributing Greater than 50% of the session was spent on counseling and/or coordination of care Reason for contiued inpatient stay Substantial Risk for: harm to self, inability to function and rapid decompensation
--- NOTE | 2020-12-15 21:18 | P.PNPSI_ITS ---
Subjective Subjective Date of Service: 12/15/20 Reason For Visit: Severe depression Subjective Notes: [place] Order and Section 8 Interim History: Patient continues to be quite depressed withdrawn flat slowed mentation no improvement with increased Prozac 10 mg She is no longer on oxygen at rest Medication Compliance: Yes Side effects from medications: Yes Attending Groups: No Mental Status Exam Mental Status Exam Patient Appearance: Fatigued Patient Orientation: Person, Place and Situation Level of Consciousness: Alert Patient Behavior: Dependent, Cooperative, Passive, Timid, Anxious, Fearful, Fatigued and Confused Mood Description: Apathetic, Depressed and Anxious Affect Description: Apathetic and Flat Patient Cognition Impaired: Yes Ability to Follow Directions: Fair Speech Pattern: Perseverating, Spontaneous Speech and Soft-Spoken Memory Description: Episodic Impaired Hallucinations: None Delusions: Not Present Thought Process: Rumination and Slowed Thinking Thought Content: positive for Circumstantial and positive for Perseveration Depressive Symptoms: Increased Anxiety, Crying Spells, Significant Weight Loss, Feelings of Guilt, Low Self Esteem and Loss of Energy Judgement: Poor Diagnostics Vital Signs (24Hr): Vital Signs - 24 hr 12/14/20 23:21 12/15/20 06:30 12/15/20 13:34 Temperature 97.8 F 97.6 F Pulse Rate 68 82 Respiratory Rate 24 H 32 H Blood Pressure 129/61 130/76 Pulse Oximetry 92 93 97 12/15/20 18:00 Temperature 98.7 F Pulse Rate 88 Respiratory Rate 20 Blood Pressure 104/68 Pulse Oximetry 95 Labs Results: 12/09/20 10:06 12/06/20 08:39 Imaging Radiology Impressions: ITS Impressions Chest X-Ray 12/05/20 18:58 IMPRESSION: Severe chronic interstitial lung disease stable when compared to the prior study. There are probably new small trace pleural effusions present Modified Barium Swallow 12/10/20 14:00 IMPRESSION: 1. No evidence of aspiration. Transient penetration with thin and nectar consistency. 2. Abnormalities of the oral and pharyngeal phase of swallowing as described above, with moderate vallecular retention. 3. Please see speech pathology report for specific recommendations and further information. Medications Medications Current Medications Generic Name Dose Route Start Last Admin Trade Name Freq PRN Reason Stop Dose Admin Acetaminophen 650 mg 12/04/20 15:37 Acetaminophen 325 Mg Tablet PO Q6H PRN Headache/Pain Mild Scale (1-3) Al Hydroxide/Mg Hydroxide 30 ml 12/04/20 15:37 Magnesium Hydrox/Alum Hydrox 30 Ml Oral.Susp PO Q6H PRN Heartburn/Nausea Brexpiprazole 1 mg 12/16/20 17:00 Brexpiprazole 1 Mg Tablet PO DAILY@1700 [facility] Budesonide 2 puff 12/06/20 10:21 12/15/20 20:25 Budesonide 180 Mcg Aer.Pow.Ba INHALE 2 puff RBID [facility] Administration Clotrimazole 1 appl 12/14/20 21:00 12/15/20 20:25 Clotrimazole 1 % Cream 15 Gm Tube TOPICAL 1 appl BID [facility] Administration Protocol Docusate Sodium 100 mg 12/04/20 15:34 Docusate Sodium 100 Mg Capsule PO DAILY PRN Constipation Famotidine 20 mg 12/05/20 09:00 12/15/20 08:18 Famotidine 20 Mg Tablet PO 20 mg DAILY [facility] Administration Fluoxetine HCl 10 mg 12/15/20 09:00 12/15/20 08:18 Fluoxetine Hcl Oral Solution 20 Mg/5 Ml Solution PO 10 mg DAILY [facility] Administration Guaifenesin/Dextromethorphan 5 ml 12/04/20 15:34 12/13/20 06:32 Guaifenesin Dm 100/10/5 Ml 5 Ml Syrup PO 5 ml Q6H PRN Administration cough Hydroxyzine HCl 25 mg 12/04/20 15:37 12/13/20 20:49 Hydroxyzine Hcl 25 Mg Tablet PO 25 mg BEDTIME PRN Administration Anxiety Hydroxyzine HCl 25 mg 12/15/20 18:14 12/15/20 18:33 Hydroxyzine Hcl 25 Mg Tablet PO 25 mg Q6H PRN Administration Anxiety Loperamide HCl 2 mg 12/08/20 16:31 12/12/20 02:22 Loperamide Hcl 2 Mg Capsule PO 2 mg Q4H PRN Administration Diarrhea Lorazepam 0.5 mg 12/09/20 19:27 12/15/20 13:20 Lorazepam 0.5 Mg Tablet PO 0.5 mg Q6H PRN Administration Anxiety Lorazepam 0.5 mg 12/14/20 16:59 Lorazepam 0.5 Mg Tablet PO BEDTIME PRN Insomnia Lorazepam 0.5 mg 12/14/20 21:00 12/15/20 20:24 Lorazepam 0.5 Mg Tablet PO 0.5 mg BEDTIME DOMINICK Administration Magnesium Hydroxide 30 ml 12/04/20 15:37 Milk Of Magnesia 30 Ml Oral.Susp PO DAILY PRN Constipation Non-Formulary Medication 1 each 12/04/20 21:00 12/15/20 20:25 Patient Own Medication PO 1 each BID DOMINICK Administration Omeprazole 20 mg 12/09/20 16:30 12/15/20 16:09 Omeprazole 20 Mg Capsule. PO 20 mg BID@0630,1630 DOMINICK Administration Ondansetron HCl 4 mg 12/04/20 15:34 Ondansetron Odt 4 Mg Tab.Rapdis TRANSLINGU Q8H PRN nausea/vomiting Ondansetron HCl 4 mg 12/04/20 15:34 Ondansetron Hcl 4 Mg/2 Ml Vial IVPUSH Q8H PRN Nausea and Vomiting Allergies Allergies Allergy/AdvReac Type Severity Reaction Status Date / Time Sulfa (Sulfonamide Allergy Unknown UNKNOWN Verified 12/01/20 09:47 Antibiotics) [SULFA (SULFONAMIDE ANTIBIOTICS)] zoster vaccine live Allergy Hives Verified 12/01/20 09:47 Assessment & Plan Assessment & Plan (1) Pulmonary fibrosis: Status: Acute Code(s): J84.10 - Pulmonary fibrosis, unspecified (2) Bipolar I disorder with depression, severe: Status: Acute Code(s): F31.4 - Bipolar disorder, current episode depressed, severe, without psychotic features Assessment and Plan: Trying medication regimen for bipolar depression severe in the context of also pulmonary fibrosis and aspiration. ECT remains a possible consideration the background if patient medically stable enough. Limited treatment options. Case reviewed extensively with the patient's and patient Patient hopeless helpless despondent a risk of not being able to function maintain nutrition if goes home and has had intermittent significant self-harm ing thoughts when home contributing to his hospitalization he remains at was Greater than 50% of the session was spent on counseling and/or coordination of care Reason for contiued inpatient stay Substantial Risk for: harm to self, inability to function and rapid decompensation
[2020-12-16 05:55] VITALS: BP 106/63; PULSE 64; RESP 16; TEMP 36.3; O2SAT 94
[2020-12-16] MEDS: Famotidine 20 MG TABLET PO (08:53)
[2020-12-16] MEDS: Budesonide 180 MCG AER.POW.BA 2 PUFF INHALE ×2 (08:53→20:06)
[2020-12-16] MEDS: Omeprazole 20 MG CAPSULE.DR PO ×2 (08:53→17:15)
[2020-12-16] MEDS: FLUoxetine HCl Oral Solution 20 MG/5 ML SOLUTION 10 MG PO (09:04)
[2020-12-16] MEDS: Clotrimazole 1 % Cream 15 GM TUBE 1 APPL TOPICAL ×2 (09:33→20:06)
--- NOTE | 2020-12-16 10:01 | P.PNIM_ITS ---
Subjective Subjective Date of Service: 12/16/20 Interval History: The patient was seen and evaluated this morning Laying in his bed, on 2L of oxygen, feels comfortable overall Denies any fever, chills or shortness of breath at rest Systemic review: No fever, chills but reports generalized weakness No chest pain, palpitation No shortness of breath at rest or coughing No abdominal pain, nausea or vomiting No urinary symptoms No any rash or wounds Physical Exam Vital Signs: Vital Signs: Last Vital Signs Temp 97.4 F 12/16/20 05:55 Pulse 64 12/16/20 05:55 Resp 16 12/16/20 05:55 BP 106/63 12/16/20 05:55 Pulse Ox 94 12/16/20 05:55 Const: Other: Constitutional : Alert, oriented, not in distress Neck : Normal inspection, Supple Cardiovascular : RRR, S1 S2, no lower extremity edema Respiratory : Fair bilateral air entry, 1 no crackles, no wheezes or rhonchi, on 2 L of oxygen Gastrointestinal: soft, lax, Normal bowel sounds, Non tender Skin : Warm/Dry, No rash Neurological : Alert & oriented x3, No focal deficit Objective Data Current Medications Generic Name Dose Route Start Last Admin Trade Name Freq PRN Reason Stop Dose Admin Acetaminophen 650 mg 12/04/20 15:37 Acetaminophen 325 Mg Tablet PO Q6H PRN Headache/Pain Mild Scale (1-3) Al Hydroxide/Mg Hydroxide 30 ml 12/04/20 15:37 Magnesium Hydrox/Alum Hydrox 30 Ml Oral.Susp PO Q6H PRN Heartburn/Nausea Brexpiprazole 1 mg 12/16/20 17:00 Brexpiprazole 1 Mg Tablet PO DAILY@1700 [facility] Budesonide 2 puff 12/06/20 10:21 12/16/20 08:53 Budesonide 180 Mcg Aer.Pow.Ba INHALE 2 puff RBID DOMINICK Administration Clotrimazole 1 appl 12/14/20 21:00 12/16/20 09:33 Clotrimazole 1 % Cream 15 Gm Tube TOPICAL 1 appl BID DOMINICK Administration Protocol Docusate Sodium 100 mg 12/04/20 15:34 Docusate Sodium 100 Mg Capsule PO DAILY PRN Constipation Famotidine 20 mg 12/05/20 09:00 12/16/20 08:53 Famotidine 20 Mg Tablet PO 20 mg DAILY DOMINICK Administration Fluoxetine HCl 10 mg 12/15/20 09:00 12/16/20 09:04 Fluoxetine Hcl Oral Solution 20 Mg/5 Ml Solution PO 10 mg DAILY DOMINICK Administration Guaifenesin/Dextromethorphan 5 ml 12/04/20 15:34 12/13/20 06:32 Guaifenesin Dm 100/10/5 Ml 5 Ml Syrup PO 5 ml Q6H PRN Administration cough Hydroxyzine HCl 25 mg 12/04/20 15:37 12/13/20 20:49 Hydroxyzine Hcl 25 Mg Tablet PO 25 mg BEDTIME PRN Administration Anxiety Hydroxyzine HCl 25 mg 12/15/20 18:14 12/15/20 18:33 Hydroxyzine Hcl 25 Mg Tablet PO 25 mg Q6H PRN Administration Anxiety Loperamide HCl 2 mg 12/08/20 16:31 12/12/20 02:22 Loperamide Hcl 2 Mg Capsule PO 2 mg Q4H PRN Administration Diarrhea Lorazepam 0.5 mg 12/09/20 19:27 12/15/20 13:20 Lorazepam 0.5 Mg Tablet PO 0.5 mg Q6H PRN Administration Anxiety Lorazepam 0.5 mg 12/14/20 16:59 Lorazepam 0.5 Mg Tablet PO BEDTIME PRN Insomnia Lorazepam 0.5 mg 12/14/20 21:00 12/15/20 20:24 Lorazepam 0.5 Mg Tablet PO 0.5 mg BEDTIME DOMINICK Administration Magnesium Hydroxide 30 ml 12/04/20 15:37 Milk Of Magnesia 30 Ml Oral.Susp PO DAILY PRN Constipation Non-Formulary Medication 1 each 12/04/20 21:00 12/16/20 08:52 Patient Own Medication PO 1 each BID DOMINICK Administration Omeprazole 20 mg 12/09/20 16:30 12/16/20 08:53 Omeprazole 20 Mg Capsule.Dr PO 20 mg BID@0630,1630 DOMINICK Administration Ondansetron HCl 4 mg 12/04/20 15:34 Ondansetron Odt 4 Mg Tab.Rapdis TRANSLINGU Q8H PRN nausea/vomiting Ondansetron HCl 4 mg 12/04/20 15:34 Ondansetron Hcl 4 Mg/2 Ml Vial IVPUSH Q8H PRN Nausea and Vomiting Labs CBC & Chem 7: 12/09/20 10:06 12/06/20 08:39 Assessment and Plan (1) Increased oxygen demand: Status: Acute (2) Pneumonia: Status: Acute (3) Pulmonary fibrosis: Status: Acute Assessment and Plan: a 80-year-old male with past medical history of COPD, pulmonary fibrosis, CVA, CKD, depression, CHF, anxiety, who was discharged from [facility] to the psych unit on December 04 after treatment for hypoxic respiratory failure and pneumonia. Plan to start ECT treatment. ECT clearance The patient has h/o ILD on nintedanib. denies heart disease, chest pain. has had ECT without issue in the past. Most recent EKG without ischemic changes. There is no obvious contraindication to ECT at this time. Chronic hypoxic respiratory failure Stable on 2 L of oxygen Continue incentive spirometry, physical therapy Thank you for the consult, will continue to monitor the patient with you as needed. Please contact hospitalist team for any question.
[2020-12-16 13:00] VITALS: BP 128/66; PULSE 68; RESP 14; O2SAT 96
[2020-12-16] MEDS: LORazepam 0.5 MG TABLET PO ×2 (14:24→20:06)
[2020-12-16 17:00] VITALS: BP 131/74; PULSE 69; TEMP 36.9
[2020-12-16] MEDS: Brexpiprazole 1 MG TABLET PO (17:17)
[2020-12-16] MEDS: hydrOXYzine HCL 25 MG TABLET PO (17:56)
--- NOTE | 2020-12-16 22:17 | HO.PSYCHPN ---
Subjective Subjective Date of Service: 12/16/20 Reason For Visit: Severe depression Subjective Notes: Conditional Voluntary Interim History: Page depressed for Co[employer] hopeless helpless withdrawn no and improvement T states with current regimen. Has been able to be taken off of oxygen at rest. Was seen by hospitalist service Medication Compliance: Yes Mental Status Exam Mental Status Exam Patient Appearance: Fatigued Patient Orientation: Person, Place and Situation Level of Consciousness: Lethargic Patient Behavior: Dependent, Cooperative, Passive, Anxious, Fearful, Fatigued and Confused Mood Description: Apathetic, Depressed and Anxious Affect Description: Apathetic and Flat Patient Cognition Impaired: Yes Ability to Follow Directions: Fair Speech Pattern: Perseverating, Spontaneous Speech and Soft-Spoken Memory Description: Episodic Impaired Hallucinations: None Delusions: Not Present Thought Process: Rumination and Slowed Thinking Thought Content: positive for Circumstantial, positive for Perseveration, positive for Slowed Thinking, positive for Suicidal Ideation (Wishes he was ) and negative for Homicidal Ideation Depressive Symptoms: Increased Anxiety, Crying Spells, Significant Weight Loss, Feelings of Guilt, Low Self Esteem and Loss of Energy Abnormal Motor Activity Signs and Symptoms: Psychomotor Retardation Judgement: Fair Diagnostics Vital Signs (24Hr): Vital Signs - 24 hr 12/16/20 05:55 12/16/20 13:00 Temperature 97.4 F Pulse Rate 64 68 Respiratory Rate 16 14 Blood Pressure 106/63 128/66 Pulse Oximetry 94 96 Labs Results: 12/09/20 10:06 12/06/20 08:39 Imaging Radiology Impressions: ITS Impressions Chest X-Ray 12/05/20 18:58 IMPRESSION: Severe chronic interstitial lung disease stable when compared to the prior study. There are probably new small trace pleural effusions present Modified Barium Swallow 12/10/20 14:00 IMPRESSION: 1. No evidence of aspiration. Transient penetration with thin and nectar consistency. 2. Abnormalities of the oral and pharyngeal phase of swallowing as described above, with moderate vallecular retention. 3. Please see speech pathology report for specific recommendations and further information. Medications Medications Current Medications Generic Name Dose Route Start Last Admin Trade Name Freq PRN Reason Stop Dose Admin Acetaminophen 650 mg 12/04/20 15:37 Acetaminophen 325 Mg Tablet PO Q6H PRN Headache/Pain Mild Scale (1-3) Al Hydroxide/Mg Hydroxide 30 ml 12/04/20 15:37 Magnesium Hydrox/Alum Hydrox 30 Ml Oral.Susp PO Q6H PRN Heartburn/Nausea Brexpiprazole 1 mg 12/16/20 17:00 12/16/20 17:17 Brexpiprazole 1 Mg Tablet PO 1 mg DAILY@1700 DOMINICK Administration Budesonide 2 puff 12/06/20 10:21 12/16/20 20:06 Budesonide 180 Mcg Aer.Pow.Ba INHALE 2 puff RBID DOMINICK Administration Clotrimazole 1 appl 12/14/20 21:00 12/16/20 20:06 Clotrimazole 1 % Cream 15 Gm Tube TOPICAL 1 appl BID DOMINICK Administration Protocol Docusate Sodium 100 mg 12/04/20 15:34 Docusate Sodium 100 Mg Capsule PO DAILY PRN Constipation Famotidine 20 mg 12/05/20 09:00 12/16/20 08:53 Famotidine 20 Mg Tablet PO 20 mg DAILY DOMIN[facility] Administration Fluoxetine HCl 10 mg 12/15/20 09:00 12/16/20 09:04 Fluoxetine Hcl Oral Solution 20 Mg/5 Ml Solution PO 10 mg DAILY DOMINICK Administration Guaifenesin/Dextromethorphan 5 ml 12/04/20 15:34 12/13/20 06:32 Guaifenesin Dm 100/10/5 Ml 5 Ml Syrup PO 5 ml Q6H PRN Administration cough Hydroxyzine HCl 25 mg 12/04/20 15:37 12/13/20 20:49 Hydroxyzine Hcl 25 Mg Tablet PO 25 mg BEDTIME PRN Administration Anxiety Hydroxyzine HCl 25 mg 12/15/20 18:14 12/16/20 17:56 Hydroxyzine Hcl 25 Mg Tablet PO 25 mg Q6H PRN Administration Anxiety Loperamide HCl 2 mg 12/08/20 16:31 12/12/20 02:22 Loperamide Hcl 2 Mg Capsule PO 2 mg Q4H PRN Administration Diarrhea Lorazepam 0.5 mg 12/09/20 19:27 12/16/20 14:24 Lorazepam 0.5 Mg Tablet PO 0.5 mg Q6H PRN Administration Anxiety Lorazepam 0.5 mg 12/14/20 16:59 Lorazepam 0.5 Mg Tablet PO BEDTIME PRN Insomnia Lorazepam 0.5 mg 12/14/20 21:00 12/16/20 20:06 Lorazepam 0.5 Mg Tablet PO 0.5 mg BEDTIME DOMINICK Administration Magnesium Hydroxide 30 ml 12/04/20 15:37 Milk Of Magnesia 30 Ml Oral.Susp PO DAILY PRN Constipation Non-Formulary Medication 1 each 12/04/20 21:00 12/16/20 20:05 Patient Own Medication PO 1 each BID DOMINICK Administration Omeprazole 20 mg 12/09/20 16:30 12/16/20 17:15 Omeprazole 20 Mg Capsule.Dr PO 20 mg BID@0630,0320 DOMINICK Administration Ondansetron HCl 4 mg 12/04/20 15:34 Ondansetron Odt 4 Mg Tab.Rapdis TRANSLINGU Q8H PRN nausea/vomiting Ondansetron HCl 4 mg 12/04/20 15:34 Ondansetron Hcl 4 Mg/2 Ml Vial IVPUSH Q8H PRN Nausea and Vomiting Allergies Allergies Allergy/AdvReac Type Severity Reaction Status Date / Time Sulfa (Sulfonamide Allergy Unknown UNKNOWN Verified 12/01/20 09:47 Antibiotics) [SULFA (SULFONAMIDE ANTIBIOTICS)] zoster vaccine live Allergy Hives Verified 12/01/20 09:47 Assessment & Plan Assessment & Plan (1) Bipolar I disorder with depression, severe: Status: Acute Code(s): F31.4 - Bipolar disorder, current episode depressed, severe, without psychotic features Assessment and Plan: Hospitalist consult feels patient stable for ECT. Reviewed treatment options with patient who does remain open to ECT treatment. Severely depressed poor ADL functioning. Continue Prozac Rexulti patient remains at risk of self-harm if not in controlled setting (2) CKD (chronic kidney disease) stage 3, GFR 30-59 ml/min: Status: Acute Code(s): N18.30 - Chronic kidney disease, stage 3 unspecified (3) Pulmonary fibrosis: Status: Acute Code(s): J84.10 - Pulmonary fibrosis, unspecified Greater than 50% of the session was spent on counseling and/or coordination of care Reason for contiued inpatient stay Substantial Risk for: harm to self, rapid decompensation and med/psych decompensation
[2020-12-17 06:35] VITALS: BP 127/70; PULSE 71; RESP 24; TEMP 36.6; O2SAT 99
[2020-12-17] MEDS: FLUoxetine HCl Oral Solution 20 MG/5 ML SOLUTION 10 MG PO (08:46)
[2020-12-17] MEDS: Budesonide 180 MCG AER.POW.BA 2 PUFF INHALE ×2 (08:47→20:54)
[2020-12-17] MEDS: Omeprazole 20 MG CAPSULE.DR PO ×2 (08:47→16:16)
[2020-12-17] MEDS: Famotidine 20 MG TABLET PO (08:47)
[2020-12-17] MEDS: Clotrimazole 1 % Cream 15 GM TUBE 1 APPL TOPICAL ×2 (08:47→20:53)
[2020-12-17] MEDS: LORazepam 0.5 MG TABLET PO ×3 (09:19→20:52)
--- NOTE | 2020-12-17 13:39 | MHC.SLORD ---
Speech Language Pathology Order Status: AEROSPACE MEDICINE PHYSICIAN attempted to see patient this morning for dysphagia treatment. Patient appeared to be resting in bed and requested AEROSPACE MEDICINE PHYSICIAN to come back later. AEROSPACE MEDICINE PHYSICIAN to return this afternoon if schedule allows, otherwise tomorrow morning for pharyngeal strengthening exercises.
[2020-12-17 14:40] VITALS: BP 137/75; PULSE 78; RESP 26; O2SAT 98
[2020-12-17] MEDS: Brexpiprazole 1 MG TABLET 1.5 MG PO (16:15)
[2020-12-17 18:00] VITALS: BP 118/72; PULSE 72; RESP 20; TEMP 36.3; O2SAT 95
--- NOTE | 2020-12-17 19:55 | P.PNPSI_ITS ---
Subjective Subjective Date of Service: 12/17/20 Reason For Visit: Severe depression Subjective Notes: Conditional Voluntary Interim History: Patient with severely depressed hopeless helpless despondent lethargic anxious Medication Compliance: Yes Attending Groups: No Mental Status Exam Mental Status Exam Patient Appearance: Fatigued Patient Orientation: Person, Place and Situation Level of Consciousness: Lethargic Patient Behavior: Dependent, Cooperative, Passive, Anxious, Fearful, Fatigued and Confused Mood Description: Apathetic, Depressed and Anxious Affect Description: Apathetic and Flat Patient Cognition Impaired: Yes Ability to Follow Directions: Fair Speech Pattern: Perseverating, Spontaneous Speech and Soft-Spoken Memory Description: Episodic Impaired Hallucinations: None Delusions: Not Present Thought Process: Rumination and Slowed Thinking Thought Content: positive for Circumstantial, positive for Perseveration, positive for Slowed Thinking, positive for Suicidal Ideation (Wishes he was ) and negative for Homicidal Ideation Depressive Symptoms: Increased Anxiety, Crying Spells, Significant Weight Loss, Feelings of Guilt, Low Self Esteem and Loss of Energy Abnormal Motor Activity Signs and Symptoms: Psychomotor Retardation Judgement: Fair Diagnostics Vital Signs (24Hr): Vital Signs - 24 hr 12/17/20 06:35 12/17/20 14:40 Temperature 98 F Pulse Rate 71 78 Respiratory Rate 24 H 26 H Blood Pressure 127/70 137/75 Pulse Oximetry 99 98 Labs Results: 12/09/20 10:06 12/06/20 08:39 Imaging Radiology Impressions: ITS Impressions Chest X-Ray 12/05/20 18:58 IMPRESSION: Severe chronic interstitial lung disease stable when compared to the prior study. There are probably new small trace pleural effusions present Modified Barium Swallow 12/10/20 14:00 IMPRESSION: 1. No evidence of aspiration. Transient penetration with thin and nectar consistency. 2. Abnormalities of the oral and pharyngeal phase of swallowing as described above, with moderate vallecular retention. 3. Please see speech pathology report for specific recommendations and further information. Medications Medications Current Medications Generic Name Dose Route Start Last Admin Trade Name Freq PRN Reason Stop Dose Admin Acetaminophen 650 mg 12/04/20 15:37 Acetaminophen 325 Mg Tablet PO Q6H PRN Headache/Pain Mild Scale (1-3) Al Hydroxide/Mg Hydroxide 30 ml 12/04/20 15:37 Magnesium Hydrox/Alum Hydrox 30 Ml Oral.Susp PO Q6H PRN Heartburn/Nausea Brexpiprazole 1.5 mg 12/17/20 17:00 12/17/20 16:15 Brexpiprazole 1 Mg Tablet PO 1 mg DAILY@1700 DOMINICK Administration Budesonide 2 puff 12/06/20 10:21 12/17/20 08:47 Budesonide 180 Mcg Aer.Pow.Ba INHALE 2 puff RBID DOMINICK Administration Clotrimazole 1 appl 12/14/20 21:00 12/17/20 08:47 Clotrimazole 1 % Cream 15 Gm Tube TOPICAL 1 appl BID DOMINICK Administration Protocol Docusate Sodium 100 mg 12/04/20 15:34 Docusate Sodium 100 Mg Capsule PO DAILY PRN Constipation Famotidine 20 mg 12/05/20 09:00 12/17/20 08:47 Famotidine 20 Mg Tablet PO 20 mg DAILY [facility] Administration Fluoxetine HCl 15 mg 12/18/20 09:00 Fluoxetine Hcl Oral Solution 20 Mg/5 Ml Solution PO DAILY [facility] Guaifenesin/Dextromethorphan 5 ml 12/04/20 15:34 12/13/20 06:32 Guaifenesin Dm 100/10/5 Ml 5 Ml Syrup PO 5 ml Q6H PRN Administration cough Hydroxyzine HCl 25 mg 12/04/20 15:37 12/13/20 20:49 Hydroxyzine Hcl 25 Mg Tablet PO 25 mg BEDTIME PRN Administration Anxiety Hydroxyzine HCl 25 mg 12/15/20 18:14 12/16/20 17:56 Hydroxyzine Hcl 25 Mg Tablet PO 25 mg Q6H PRN Administration Anxiety Loperamide HCl 2 mg 12/08/20 16:31 12/12/20 02:22 Loperamide Hcl 2 Mg Capsule PO 2 mg Q4H PRN Administration Diarrhea Lorazepam 0.5 mg 12/09/20 19:27 12/17/20 15:48 Lorazepam 0.5 Mg Tablet PO 0.5 mg Q6H PRN Administration Anxiety Lorazepam 0.5 mg 12/14/20 16:59 Lorazepam 0.5 Mg Tablet PO BEDTIME PRN Insomnia Lorazepam 0.5 mg 12/14/20 21:00 12/16/20 20:06 Lorazepam 0.5 Mg Tablet PO 0.5 mg BEDTIME DOMINICK Administration Magnesium Hydroxide 30 ml 12/04/20 15:37 Milk Of Magnesia 30 Ml Oral.Susp PO DAILY PRN Constipation Non-Formulary Medication 1 each 12/04/20 21:00 12/17/20 08:46 Patient Own Medication PO 1 each BID DOMINICK Administration Omeprazole 20 mg 12/09/20 16:30 12/17/20 16:16 Omeprazole 20 Mg Capsule. PO 20 mg BID@0630,1630 DOMINICK Administration Ondansetron HCl 4 mg 12/04/20 15:34 Ondansetron Odt 4 Mg Tab.Rapdis TRANSLINGU Q8H PRN nausea/vomiting Ondansetron HCl 4 mg 12/04/20 15:34 Ondansetron Hcl 4 Mg/2 Ml Vial IVPUSH Q8H PRN Nausea and Vomiting Quetiapine Fumarate 12.5 mg 12/17/20 21:00 Quetiapine Fumarate 25 Mg Tablet PO BEDTIME DOMINICK Allergies Allergies Allergy/AdvReac Type Severity Reaction Status Date / Time Sulfa (Sulfonamide Allergy Unknown UNKNOWN Verified 12/01/20 09:47 Antibiotics) [SULFA (SULFONAMIDE ANTIBIOTICS)] zoster vaccine live Allergy Hives Verified 12/01/20 09:47 Assessment & Plan Assessment & Plan (1) Pulmonary fibrosis: Status: Acute Code(s): J84.10 - Pulmonary fibrosis, unspecified (2) Bipolar I disorder with depression, severe: Status: Acute Code(s): F31.4 - Bipolar disorder, current episode depressed, severe, without psychotic features (3) CKD (chronic kidney disease) stage 3, GFR 30-59 ml/min: Status: Acute Code(s): N18.30 - Chronic kidney disease, stage 3 unspecified Assessment and Plan: Increase Prozac to 15 mg daily increase Rexulti to 1.5 mg daily small doses Seroquel at bedtime to help with sleep. Patient is severely depressed strongly considering ECT if no response to medication. Oxygen requirement appears to only be with exertion Greater than 50% of the session was spent on counseling and/or coordination of care Reason for contiued inpatient stay Substantial Risk for: harm to self, rapid decompensation and med/psych decompensation
[2020-12-17] MEDS: QUEtiapine Fumarate 25 MG TABLET 12.5 MG PO (20:52)
[2020-12-18] MEDS: Omeprazole 20 MG CAPSULE.DR PO ×2 (06:49→16:54)
[2020-12-18] MEDS: Acetaminophen 325 MG TABLET 650 MG PO ×2 (07:04→18:04)
[2020-12-18] MEDS: LORazepam 0.5 MG TABLET PO ×3 (07:04→20:06)
[2020-12-18 07:10] VITALS: BP 112/61; PULSE 77; RESP 20; TEMP 36.4; O2SAT 95
[2020-12-18] MEDS: FLUoxetine HCl Oral Solution 20 MG/5 ML SOLUTION 15 MG PO (08:52)
[2020-12-18] MEDS: Budesonide 180 MCG AER.POW.BA 2 PUFF INHALE ×2 (09:10→20:07)
[2020-12-18] MEDS: Famotidine 20 MG TABLET PO (09:11)
[2020-12-18 09:20] VITALS: BP 138/90; PULSE 101; RESP 24; TEMP 36.6; O2SAT 98
[2020-12-18 09:31] LABS: TSH reflex Free T4 (Prenatal) 1.55 uIU/mL
--- NOTE | 2020-12-18 09:35 | MHC.SLORD ---
Speech Language Pathology Order Status: CELEBRITY MANAGER saw patient this morning. Patient refused dysphagia treatment despite encouragement, stating I am just too tired. CELEBRITY MANAGER briefly reviewed rationale for treatment. Patient reported he believed he did not receive any written information. CELEBRITY MANAGER provided written handout with instructions for pharyngeal strengthening exercises. CELEBRITY MANAGER will continue to follow.
[2020-12-18] MEDS: Clotrimazole 1 % Cream 15 GM TUBE 1 APPL TOPICAL ×2 (09:37→20:06)
[2020-12-18 09:46] LABS: Folate 15.6 ng/mL (> or = 4.0); Vitamin B12 1057 pg/mL (200-900)
[2020-12-18 13:00] VITALS: BP 121/77; PULSE 67; RESP 24; TEMP 36.2; O2SAT 96
[2020-12-18 15:22] VITALS: PULSE 67; RESP 24; O2SAT 96
[2020-12-18] MEDS: Brexpiprazole 1 MG TABLET 1.5 MG PO (16:53)
[2020-12-18 18:00] VITALS: BP 125/89; PULSE 66; RESP 20; TEMP 36.4; O2SAT 97
[2020-12-18] MEDS: QUEtiapine Fumarate 25 MG TABLET 12.5 MG PO (20:05)
--- NOTE | 2020-12-18 21:50 | HO.PSYCHPN ---
Subjective Subjective Date of Service: 12/21/20 Reason For Visit: Severe depression Subjective Notes: Conditional Voluntary Interim History: Pt seriously depressed withdrawn hopeless helpless good oxygenation no improvemnent with prozac maximoi agreea=s to schedulke ect Medication Compliance: Yes Side effects from medications: Yes Attending Groups: No Mental Status Exam Mental Status Exam Patient Appearance: Fatigued Patient Orientation: Person, Place and Situation Level of Consciousness: Lethargic Patient Behavior: Dependent, Cooperative, Passive, Anxious, Fearful, Fatigued and Confused Mood Description: Apathetic, Depressed and Anxious Affect Description: Apathetic and Flat Patient Cognition Impaired: Yes Ability to Follow Directions: Fair Speech Pattern: Perseverating, Spontaneous Speech and Soft-Spoken Memory Description: Episodic Impaired Depressive Symptoms: Increased Anxiety, Insomnia, Diff. Making Decisions, Difficulty Sleeping, Changes in Appetite, Loss of Int. in Activity, Feelings of Worthlessness, Hopelessness, Isolating-Friends/Family, Feelings of Guilt, Unhappiness, Increased Fatigue, Thoughts of /Suicide, Loss of Energy and Difficulty Concentrating Judgement: Fair Diagnostics Vital Signs (24Hr): Vital Signs - 24 hr 12/18/20 07:10 12/18/20 09:20 12/18/20 13:00 Temperature 97.6 F 98 F 97.2 F Pulse Rate 77 101 H 67 Respiratory Rate 20 24 H 24 H Blood Pressure 112/61 138/90 H 121/77 Pulse Oximetry 95 98 96 12/18/20 15:22 Temperature Pulse Rate 67 Respiratory Rate 24 H Blood Pressure Pulse Oximetry 96 Labs Results: 12/09/20 10:06 12/06/20 08:39 Labs: Laboratory Results - last 48 hr 12/18/20 12/18/20 08:12 08:12 Vitamin B12 1057 H Folate 15.6 TSH 3rd Generation 1.55 Imaging Radiology Impressions: ITS Impressions Chest X-Ray 12/05/20 18:58 IMPRESSION: Severe chronic interstitial lung disease stable when compared to the prior study. There are probably new small trace pleural effusions present Modified Barium Swallow 12/10/20 14:00 IMPRESSION: 1. No evidence of aspiration. Transient penetration with thin and nectar consistency. 2. Abnormalities of the oral and pharyngeal phase of swallowing as described above, with moderate vallecular retention. 3. Please see speech pathology report for specific recommendations and further information. Medications Medications Current Medications Generic Name Dose Route Start Last Admin Trade Name Freq PRN Reason Stop Dose Admin Acetaminophen 650 mg 12/04/20 15:37 12/18/20 18:04 Acetaminophen 325 Mg Tablet PO 650 mg Q6H PRN Administration Headache/Pain Mild Scale (1-3) Al Hydroxide/Mg Hydroxide 30 ml 12/04/20 15:37 Magnesium Hydrox/Alum Hydrox 30 Ml Oral.Susp PO Q6H PRN Heartburn/Nausea Brexpiprazole 1.5 mg 12/17/20 17:00 12/18/20 16:53 Brexpiprazole 1 Mg Tablet PO 1.5 mg DAILY@1700 DOMINICK Administration Budesonide 2 puff 12/06/20 10:21 12/18/20 20:07 Budesonide 180 Mcg Aer.Pow.Ba INHALE 2 puff RBID DOMINICK Administration Clotrimazole 1 appl 12/14/20 21:00 12/18/20 20:06 Clotrimazole 1 % Cream 15 Gm Tube TOPICAL 1 appl BID DOMINICK Administration Protocol Docusate Sodium 100 mg 12/04/20 15:34 Docusate Sodium 100 Mg Capsule PO DAILY PRN Constipation Famotidine 20 mg 12/05/20 09:00 12/18/20 09:11 Famotidine 20 Mg Tablet PO 20 mg DAILY [facility]IN[facility] Administration Fluoxetine HCl 15 mg 12/18/20 09:00 12/18/20 08:52 Fluoxetine Hcl Oral Solution 20 Mg/5 Ml Solution PO 15 mg DAILY [facility]INICK Administration Guaifenesin/Dextromethorphan 5 ml 12/04/20 15:34 12/13/20 06:32 Guaifenesin Dm 100/10/5 Ml 5 Ml Syrup PO 5 ml Q6H PRN Administration cough Hydroxyzine HCl 25 mg 12/04/20 15:37 12/13/20 20:49 Hydroxyzine Hcl 25 Mg Tablet PO 25 mg BEDTIME PRN Administration Anxiety Hydroxyzine HCl 25 mg 12/15/20 18:14 12/16/20 17:56 Hydroxyzine Hcl 25 Mg Tablet PO 25 mg Q6H PRN Administration Anxiety Loperamide HCl 2 mg 12/08/20 16:31 12/12/20 02:22 Loperamide Hcl 2 Mg Capsule PO 2 mg Q4H PRN Administration Diarrhea Lorazepam 0.5 mg 12/09/20 19:27 12/18/20 16:54 Lorazepam 0.5 Mg Tablet PO 0.5 mg Q6H PRN Administration Anxiety Lorazepam 0.5 mg 12/14/20 16:59 Lorazepam 0.5 Mg Tablet PO BEDTIME PRN Insomnia Lorazepam 0.5 mg 12/14/20 21:00 12/18/20 20:06 Lorazepam 0.5 Mg Tablet PO 0.5 mg BEDTIME DOMINICK Administration Magnesium Hydroxide 30 ml 12/04/20 15:37 Milk Of Magnesia 30 Ml Oral.Susp PO DAILY PRN Constipation Non-Formulary Medication 1 each 12/04/20 21:00 12/18/20 20:07 Patient Own Medication PO 1 each BID DOMINICK Administration Omeprazole 20 mg 12/09/20 16:30 12/18/20 16:54 Omeprazole 20 Mg Capsule. PO 20 mg BID@0630,1630 DOMINICK Administration Ondansetron HCl 4 mg 12/04/20 15:34 Ondansetron Odt 4 Mg Tab.Rapdis TRANSLINGU Q8H PRN nausea/vomiting Ondansetron HCl 4 mg 12/04/20 15:34 Ondansetron Hcl 4 Mg/2 Ml Vial IVPUSH Q8H PRN Nausea and Vomiting Quetiapine Fumarate 12.5 mg 12/17/20 21:00 12/18/20 20:05 Quetiapine Fumarate 25 Mg Tablet PO 12.5 mg BEDTIME DOMINICK Administration Allergies Allergies Allergy/AdvReac Type Severity Reaction Status Date / Time Sulfa (Sulfonamide Allergy Unknown UNKNOWN Verified 12/01/20 09:47 Antibiotics) [SULFA (SULFONAMIDE ANTIBIOTICS)] zoster vaccine live Allergy Hives Verified 12/01/20 09:47 Assessment & Plan Assessment & Plan (1) Bipolar I disorder with depression, severe: Status: Acute Code(s): F31.4 - Bipolar disorder, current episode depressed, severe, without psychotic features Assessment and Plan: start ect if no improvement (2) Pulmonary fibrosis: Status: Acute Code(s): J84.10 - Pulmonary fibrosis, unspecified Greater than 50% of the session was spent on counseling and/or coordination of care Reason for contiued inpatient stay Substantial Risk for: inability to function and rapid decompensation
[2020-12-19 07:02] VITALS: BP 112/61; PULSE 80; RESP 18; TEMP 36.7; O2SAT 96
[2020-12-19] MEDS: Clotrimazole 1 % Cream 15 GM TUBE 1 APPL TOPICAL (08:21)
[2020-12-19] MEDS: FLUoxetine HCl Oral Solution 20 MG/5 ML SOLUTION 15 MG PO (08:21)
[2020-12-19] MEDS: Budesonide 180 MCG AER.POW.BA 2 PUFF INHALE ×2 (08:21→20:24)
[2020-12-19] MEDS: Famotidine 20 MG TABLET PO (08:22)
[2020-12-19] MEDS: Omeprazole 20 MG CAPSULE.DR PO ×2 (08:22→16:18)
[2020-12-19] MEDS: Acetaminophen 325 MG TABLET 650 MG PO ×2 (08:24→16:18)
[2020-12-19] MEDS: LORazepam 0.5 MG TABLET PO ×3 (08:25→20:24)
--- NOTE | 2020-12-19 10:44 | HO.PSYCHPN ---
Subjective Subjective Date of Service: 12/19/20 Reason For Visit: Severe depression Interim History: Patient continues with severely depressed mood, hopeless helpless despondent lethargic anxious Review of Systems Review of Systems No fever, chills or weakness No chest pain, palpitation No shortness of breath or coughing , feels breathing is a bit tighter No abdominal pain, nausea or vomiting No urinary symptoms No any rash or wounds Yes all other systems are reviewed and are negative Constitutional: Denies daytime sleepiness, Denies excessive sweating, Denies fatigue, Denies fever(s), Denies lethargy, Denies malaise, Denies night sweats, Denies snoring and Denies weight loss Eyes: Denies blurry vision and Denies itchy eyes Denies nasal congestion, Denies post nasal drip, Denies sinus pain, Denies sinus pressure and Denies other ( Thrush) Cardiovascular: Denies chest pain, Denies pedal edema, Denies leg edema, Denies dyspnea, Denies orthopnea and Denies paroxysmal nocturnal dyspnea Respiratory: Reports chest congestion, Denies cough, Denies hemoptysis, Denies excessive phlegm production, Denies dyspnea, Denies snoring and Denies wheezing Gastrointestinal: Denies abdominal pain and Denies heartburn Musculoskeletal: Denies myalgias, Denies arthralgias and Denies joint swelling Skin/Breast: Denies rash Reports behavioral changes, Reports confusion and Denies seizure-like activity Psychiatric: Reports anxiety, Reports behavioral changes, Reports confusion, Reports depression, Reports difficulty concentrating, Reports hopelessness, Reports anhedonia and Reports panic attacks Endocrine: Denies excessive sweating, Denies fatigue and Denies heat intolerance Hematologic/Lymphatic: Denies easy bruising Allergic/Immunologic: Denies itchy eyes, Denies seasonal rhinorrhea and Denies wheezing Mental Status Exam Mental Status Exam Patient Appearance: Fatigued Patient Orientation: Person, Place and Situation Level of Consciousness: Lethargic Patient Behavior: Dependent, Cooperative, Passive, Anxious, Fearful, Fatigued and Confused Mood Description: Apathetic, Depressed and Anxious Affect Description: Apathetic and Flat Patient Cognition Impaired: Yes Ability to Follow Directions: Fair Speech Pattern: Perseverating, Spontaneous Speech and Soft-Spoken Memory Description: Episodic Impaired Depressive Symptoms: Diff. Making Decisions, Feelings of Worthlessness, Hopelessness, Feelings of Guilt, Increased Fatigue, Loss of Energy and Difficulty Concentrating Judgement: Poor Diagnostics Vital Signs (24Hr): Vital Signs - 24 hr 12/18/20 13:00 12/18/20 15:22 12/18/20 18:00 Temperature 97.2 F 97.6 F Pulse Rate 67 67 66 Respiratory Rate 24 H 24 H 20 Blood Pressure 121/77 125/89 Pulse Oximetry 96 96 97 12/19/20 07:02 Temperature 98.1 F Pulse Rate 80 Respiratory Rate 18 Blood Pressure 112/61 Pulse Oximetry 96 Labs Results: 12/09/20 10:06 12/06/20 08:39 Labs: Laboratory Results - last 48 hr 12/18/20 12/18/20 12/18/20 08:12 08:12 08:12 Vitamin B12 1057 H Folate 15.6 TSH 3rd Generation 1.55 Cortisol 13.1 Imaging Radiology Impressions: ITS Impressions Chest X-Ray 12/05/20 18:58 IMPRESSION: Severe chronic interstitial lung disease stable when compared to the prior study. There are probably new small trace pleural effusions present Modified Barium Swallow 12/10/20 14:00 IMPRESSION: 1. No evidence of aspiration. Transient penetration with thin and nectar consistency. 2. Abnormalities of the oral and pharyngeal phase of swallowing as described above, with moderate vallecular retention. 3. Please see speech pathology report for specific recommendations and further information. Medications Medications Current Medications Generic Name Dose Route Start Last Admin Trade Name Freq PRN Reason Stop Dose Admin Acetaminophen 650 mg 12/04/20 15:37 12/19/20 08:24 Acetaminophen 325 Mg Tablet PO 650 mg Q6H PRN Administration Headache/Pain Mild Scale (1-3) Al Hydroxide/Mg Hydroxide 30 ml 12/04/20 15:37 Magnesium Hydrox/Alum Hydrox 30 Ml Oral.Susp PO Q6H PRN Heartburn/Nausea Brexpiprazole 1.5 mg 12/17/20 17:00 12/18/20 16:53 Brexpiprazole 1 Mg Tablet PO 1.5 mg DAILY@1700 [facility] Administration Budesonide 2 puff 12/06/20 10:21 12/19/20 08:21 Budesonide 180 Mcg Aer.Pow.Ba INHALE 2 puff RBID DOMINICK Administration Clotrimazole 1 appl 12/14/20 21:00 12/19/20 08:21 Clotrimazole 1 % Cream 15 Gm Tube TOPICAL 1 appl BID DOMINICK Administration Protocol Docusate Sodium 100 mg 12/04/20 15:34 Docusate Sodium 100 Mg Capsule PO DAILY PRN Constipation Famotidine 20 mg 12/05/20 09:00 12/19/20 08:22 Famotidine 20 Mg Tablet PO 20 mg DAILY DOMIN[facility] Administration Fluoxetine HCl 15 mg 12/18/20 09:00 12/19/20 08:21 Fluoxetine Hcl Oral Solution 20 Mg/5 Ml Solution PO 15 mg DAILY [facility] Administration Guaifenesin/Dextromethorphan 5 ml 12/04/20 15:34 12/13/20 06:32 Guaifenesin Dm 100/10/5 Ml 5 Ml Syrup PO 5 ml Q6H PRN Administration cough Hydroxyzine HCl 25 mg 12/04/20 15:37 12/13/20 20:49 Hydroxyzine Hcl 25 Mg Tablet PO 25 mg BEDTIME PRN Administration Anxiety Hydroxyzine HCl 25 mg 12/15/20 18:14 12/16/20 17:56 Hydroxyzine Hcl 25 Mg Tablet PO 25 mg Q6H PRN Administration Anxiety Loperamide HCl 2 mg 12/08/20 16:31 12/12/20 02:22 Loperamide Hcl 2 Mg Capsule PO 2 mg Q4H PRN Administration Diarrhea Lorazepam 0.5 mg 12/09/20 19:27 12/19/20 08:25 Lorazepam 0.5 Mg Tablet PO 0.5 mg Q6H PRN Administration Anxiety Lorazepam 0.5 mg 12/14/20 16:59 Lorazepam 0.5 Mg Tablet PO BEDTIME PRN Insomnia Lorazepam 0.5 mg 12/14/20 21:00 12/18/20 20:06 Lorazepam 0.5 Mg Tablet PO 0.5 mg BEDTIME DOMINICK Administration Magnesium Hydroxide 30 ml 12/04/20 15:37 Milk Of Magnesia 30 Ml Oral.Susp PO DAILY PRN Constipation Non-Formulary Medication 1 each 12/04/20 21:00 12/19/20 08:21 Patient Own Medication PO 1 each BID DOMINICK Administration Omeprazole 20 mg 12/09/20 16:30 12/19/20 08:22 Omeprazole 20 Mg Capsule.Dr PO 20 mg BID@0630,1630 DOM[facility] Administration Ondansetron HCl 4 mg 12/04/20 15:34 Ondansetron Odt 4 Mg Tab.Rapdis TRANSLINGU Q8H PRN nausea/vomiting Ondansetron HCl 4 mg 12/04/20 15:34 Ondansetron Hcl 4 Mg/2 Ml Vial IVPUSH Q8H PRN Nausea and Vomiting Quetiapine Fumarate 12.5 mg 12/17/20 21:00 12/18/20 20:05 Quetiapine Fumarate 25 Mg Tablet PO 12.5 mg BEDTIME DOMINICK Administration Allergies Allergies Allergy/AdvReac Type Severity Reaction Status Date / Time Sulfa (Sulfonamide Allergy Unknown UNKNOWN Verified 12/01/20 09:47 Antibiotics) [SULFA (SULFONAMIDE ANTIBIOTICS)] zoster vaccine live Allergy Hives Verified 12/01/20 09:47 Assessment & Plan Assessment & Plan (1) Pulmonary fibrosis: Status: Acute Code(s): J84.10 - Pulmonary fibrosis, unspecified (2) Bipolar I disorder with depression, severe: Status: Acute Code(s): F31.4 - Bipolar disorder, current episode depressed, severe, without psychotic features (3) CKD (chronic kidney disease) stage 3, GFR 30-59 ml/min: Status: Acute Code(s): N18.30 - Chronic kidney disease, stage 3 unspecified Assessment and Plan: Continue Prozac to 15 mg daily Continue Rexulti to 1.5 mg daily small doses Seroquel at bedtime to help with sleep Patient is severely depressed strongly considering ECT if no response to medication. Oxygen requirement appears to only be with exertion Greater than 50% of the session was spent on counseling and/or coordination of care Reason for contiued inpatient stay Substantial Risk for: harm to self, inability to function and med/psych decompensation
[2020-12-19 15:16] VITALS: BP 116/67; PULSE 75; RESP 26; O2SAT 96
[2020-12-19] MEDS: Brexpiprazole 1 MG TABLET 1.5 MG PO (16:15)
[2020-12-19 18:00] VITALS: BP 114/73; PULSE 74; RESP 18; TEMP 36.1; O2SAT 96
[2020-12-19] MEDS: QUEtiapine Fumarate 25 MG TABLET 12.5 MG PO (20:22)
[2020-12-20 07:02] VITALS: BP 138/80; PULSE 67; TEMP 36.7; O2SAT 94
[2020-12-20] MEDS: Clotrimazole 1 % Cream 15 GM TUBE 1 APPL TOPICAL (08:40)
[2020-12-20] MEDS: Budesonide 180 MCG AER.POW.BA 2 PUFF INHALE ×2 (08:40→20:16)
[2020-12-20] MEDS: FLUoxetine HCl Oral Solution 20 MG/5 ML SOLUTION 15 MG PO (08:43)
[2020-12-20] MEDS: Omeprazole 20 MG CAPSULE.DR PO ×2 (08:43→16:02)
[2020-12-20] MEDS: Famotidine 20 MG TABLET PO (08:43)
[2020-12-20] MEDS: Acetaminophen 325 MG TABLET 650 MG PO ×2 (11:25→18:09)
[2020-12-20 13:00] VITALS: BP 124/80; PULSE 99; RESP 28; O2SAT 95
[2020-12-20] MEDS: LORazepam 0.5 MG TABLET PO ×2 (16:02→20:30)
[2020-12-20] MEDS: Brexpiprazole 1 MG TABLET 1.5 MG PO (16:02)
--- NOTE | 2020-12-20 17:53 | HO.PSYCHPN ---
Subjective Subjective Date of Service: 12/20/20 Reason For Visit: Severe depression Interim History: Patient continues severely depressed mood, sad, anxious, hopeless helpless, and lethargic Review of Systems Review of Systems No fever, chills or weakness No chest pain, palpitation No shortness of breath or coughing , feels breathing is a bit tighter No abdominal pain, nausea or vomiting No urinary symptoms No any rash or wounds Yes all other systems are reviewed and are negative Constitutional: Denies daytime sleepiness, Denies excessive sweating, Denies fatigue, Denies fever(s), Denies lethargy, Denies malaise, Denies night sweats, Denies snoring and Denies weight loss Eyes: Denies blurry vision and Denies itchy eyes Denies nasal congestion, Denies post nasal drip, Denies sinus pain, Denies sinus pressure and Denies other ( Thrush) Cardiovascular: Denies chest pain, Denies pedal edema, Denies leg edema, Denies dyspnea, Denies orthopnea and Denies paroxysmal nocturnal dyspnea Respiratory: Reports chest congestion, Denies cough, Denies hemoptysis, Denies excessive phlegm production, Denies dyspnea, Denies snoring and Denies wheezing Gastrointestinal: Denies abdominal pain and Denies heartburn Musculoskeletal: Denies myalgias, Denies arthralgias and Denies joint swelling Skin/Breast: Denies rash Reports behavioral changes, Reports confusion and Denies seizure-like activity Psychiatric: Reports anxiety, Reports behavioral changes, Reports confusion, Reports depression, Reports difficulty concentrating, Reports hopelessness, Reports anhedonia and Reports panic attacks Endocrine: Denies excessive sweating, Denies fatigue and Denies heat intolerance Hematologic/Lymphatic: Denies easy bruising Allergic/Immunologic: Denies itchy eyes, Denies seasonal rhinorrhea and Denies wheezing Mental Status Exam Mental Status Exam Patient Appearance: Fatigued Patient Orientation: Person, Place and Situation Level of Consciousness: Lethargic Patient Behavior: Dependent, Cooperative, Passive, Anxious, Fearful, Fatigued and Confused Mood Description: Apathetic, Depressed and Anxious Affect Description: Apathetic and Flat Patient Cognition Impaired: Yes Ability to Follow Directions: Fair Speech Pattern: Perseverating, Spontaneous Speech and Soft-Spoken Memory Description: Episodic Impaired Depressive Symptoms: Increased Anxiety, Insomnia, Diff. Making Decisions, Difficulty Sleeping, Changes in Appetite, Loss of Int. in Activity, Feelings of Worthlessness, Hopelessness, Isolating-Friends/Family, Feelings of Guilt, Unhappiness, Increased Fatigue, Thoughts of /Suicide, Loss of Energy and Difficulty Concentrating Judgement: Fair Diagnostics Vital Signs (24Hr): Vital Signs - 24 hr 12/19/20 18:00 12/20/20 07:02 12/20/20 13:00 Temperature 97.0 F 98.0 F Pulse Rate 74 67 99 Respiratory Rate 18 28 H Blood Pressure 114/73 138/80 124/80 Pulse Oximetry 96 94 95 Labs Results: 12/09/20 10:06 12/06/20 08:39 Labs: Laboratory Results - last 48 hr 12/18/20 08:12 Cortisol 13.1 Imaging Radiology Impressions: ITS Impressions Chest X-Ray 12/05/20 18:58 IMPRESSION: Severe chronic interstitial lung disease stable when compared to the prior study. There are probably new small trace pleural effusions present Modified Barium Swallow 12/10/20 14:00 IMPRESSION: 1. No evidence of aspiration. Transient penetration with thin and nectar consistency. 2. Abnormalities of the oral and pharyngeal phase of swallowing as described above, with moderate vallecular retention. 3. Please see speech pathology report for specific recommendations and further information. Medications Medications Current Medications Generic Name Dose Route Start Last Admin Trade Name Freq PRN Reason Stop Dose Admin Acetaminophen 650 mg 12/04/20 15:37 12/20/20 11:25 Acetaminophen 325 Mg Tablet PO 650 mg Q6H PRN Administration Headache/Pain Mild Scale (1-3) Al Hydroxide/Mg Hydroxide 30 ml 12/04/20 15:37 Magnesium Hydrox/Alum Hydrox 30 Ml Oral.Susp PO Q6H PRN Heartburn/Nausea Brexpiprazole 1.5 mg 12/17/20 17:00 12/20/20 16:02 Brexpiprazole 1 Mg Tablet PO 1.5 mg DAILY@1700 [facility] Administration Budesonide 2 puff 12/06/20 10:21 12/20/20 08:40 Budesonide 180 Mcg Aer.Pow.Ba INHALE 2 puff RBID DOMINICK Administration Clotrimazole 1 appl 12/14/20 21:00 12/20/20 08:40 Clotrimazole 1 % Cream 15 Gm Tube TOPICAL 1 appl BID DOMINICK Administration Protocol Docusate Sodium 100 mg 12/04/20 15:34 Docusate Sodium 100 Mg Capsule PO DAILY PRN Constipation Famotidine 20 mg 12/05/20 09:00 12/20/20 08:43 Famotidine 20 Mg Tablet PO 20 mg DAILY [facility] Administration Fluoxetine HCl 15 mg 12/18/20 09:00 12/20/20 08:43 Fluoxetine Hcl Oral Solution 20 Mg/5 Ml Solution PO 15 mg DAILY [facility]IN[facility] Administration Guaifenesin/Dextromethorphan 5 ml 12/04/20 15:34 12/13/20 06:32 Guaifenesin Dm 100/10/5 Ml 5 Ml Syrup PO 5 ml Q6H PRN Administration cough Hydroxyzine HCl 25 mg 12/04/20 15:37 12/13/20 20:49 Hydroxyzine Hcl 25 Mg Tablet PO 25 mg BEDTIME PRN Administration Anxiety Hydroxyzine HCl 25 mg 12/15/20 18:14 12/16/20 17:56 Hydroxyzine Hcl 25 Mg Tablet PO 25 mg Q6H PRN Administration Anxiety Loperamide HCl 2 mg 12/08/20 16:31 12/12/20 02:22 Loperamide Hcl 2 Mg Capsule PO 2 mg Q4H PRN Administration Diarrhea Lorazepam 0.5 mg 12/20/20 12:18 12/20/20 16:02 Lorazepam 0.5 Mg Tablet PO 0.5 mg Q4H PRN Administration Anxiety Magnesium Hydroxide 30 ml 12/04/20 15:37 Milk Of Magnesia 30 Ml Oral.Susp PO DAILY PRN Constipation Non-Formulary Medication 1 each 12/04/20 21:00 12/20/20 08:40 Patient Own Medication PO 1 each BID DOMINICK Administration Omeprazole 20 mg 12/09/20 16:30 12/20/20 16:02 Omeprazole 20 Mg Capsule.Dr PO 20 mg BID@0630,1630 [facility] Administration Ondansetron HCl 4 mg 12/04/20 15:34 Ondansetron Odt 4 Mg Tab.Rapdis TRANSLINGU Q8H PRN nausea/vomiting Ondansetron HCl 4 mg 12/04/20 15:34 Ondansetron Hcl 4 Mg/2 Ml Vial IVPUSH Q8H PRN Nausea and Vomiting Quetiapine Fumarate 12.5 mg 12/17/20 21:00 12/19/20 20:22 Quetiapine Fumarate 25 Mg Tablet PO 12.5 mg BEDTIME DOMINICK Administration Allergies Allergies Allergy/AdvReac Type Severity Reaction Status Date / Time Sulfa (Sulfonamide Allergy Unknown UNKNOWN Verified 12/01/20 09:47 Antibiotics) [SULFA (SULFONAMIDE ANTIBIOTICS)] zoster vaccine live Allergy Hives Verified 12/01/20 09:47 Assessment & Plan Assessment & Plan (1) Pulmonary fibrosis: Status: Acute Code(s): J84.10 - Pulmonary fibrosis, unspecified (2) Bipolar I disorder with depression, severe: Status: Acute Code(s): F31.4 - Bipolar disorder, current episode depressed, severe, without psychotic features (3) CKD (chronic kidney disease) stage 3, GFR 30-59 ml/min: Status: Acute Code(s): N18.30 - Chronic kidney disease, stage 3 unspecified Assessment and Plan: Continue Prozac to 15 mg daily Continue Rexulti to 1.5 mg daily small doses Seroquel at bedtime to help with sleep Patient is severely depressed strongly considering ECT if no response to medication. Oxygen requirement appears to only be with exertion Greater than 50% of the session was spent on counseling and/or coordination of care Reason for contiued inpatient stay Substantial Risk for: harm to self, inability to function, rapid decompensation and med/psych decompensation
[2020-12-20 18:00] VITALS: BP 141/79; PULSE 65; RESP 28; TEMP 36.4; O2SAT 96
[2020-12-20] MEDS: QUEtiapine Fumarate 25 MG TABLET 12.5 MG PO (20:14)
[2020-12-20] MEDS: hydrOXYzine HCL 25 MG TABLET PO (23:15)
[2020-12-21] VITALS (10 sets, daily range): BP systolic 118–177; BP diastolic 62–96; PULSE 64–83; RESP 16–26; TEMP 36.3–36.7; O2SAT 94–100
[2020-12-21] MEDS: Acetaminophen 325 MG TABLET 650 MG PO ×3 (04:15→19:07)
[2020-12-21] MEDS: hydrOXYzine HCL 25 MG TABLET PO ×2 (04:15→20:00)
--- NOTE | 2020-12-21 07:42 | MHC.SHP ---
Pre-Procedural Eval Section A The patient is an INPATIENT: Yes Changes since office visit: Yes New Medical Problems, Yes Changes in Medication and Yes Patient answered all questions; No Cold of Flu in the past 2 weeks The History & Physical has been completed within 30 days and I have reviewed it.: Yes Section B Chief Complaint: Severe depression Allergies: Allergies Allergy/AdvReac Type Severity Reaction Status Date / Time Sulfa (Sulfonamide Allergy Unknown UNKNOWN Verified 12/01/20 09:47 Antibiotics) [SULFA (SULFONAMIDE ANTIBIOTICS)] zoster vaccine live Allergy Hives Verified 12/01/20 09:47 Plan I have reviewed the history and physical and performed a pertinent physical examination on my patient. No changes have occurred unless specified.
[2020-12-21] MEDS: Omeprazole 20 MG CAPSULE.DR PO ×2 (09:29→16:59)
[2020-12-21] MEDS: Clotrimazole 1 % Cream 15 GM TUBE 1 APPL TOPICAL (09:29)
[2020-12-21] MEDS: Budesonide 180 MCG AER.POW.BA 2 PUFF INHALE ×2 (09:29→20:00)
[2020-12-21] MEDS: Famotidine 20 MG TABLET PO (09:29)
[2020-12-21] MEDS: FLUoxetine HCl Oral Solution 20 MG/5 ML SOLUTION 15 MG PO (09:29)
--- NOTE | 2020-12-21 10:19 | MHC.SLORD ---
Speech Language Pathology Order Status: [employer]EL[employer] attempted to see patient for pharyngeal strengthening exercises. Patient refused, stating that he just wants to go to bed. Patient reports that he has not been doing the exercises on his own. Nursing/sitter was present and reported that patient coughed on scrambled eggs and eventually spit them out. Per MBSS, patient is recommended CHOPPED/ ADVANCED (NDD3) solids and NECTAR THICK liquids. Food to be cut up in small bite size pieces and served with sauce/gravy to moisten whenever possible. Recommend avoiding tough, sticky, and dry foods. Recommend continue aspiration precautions and strategies for oral clearance (small bites, alternate bite of food with sip of liquid, chew food well, moisten with sauces). Patient refused dysphagia treatment x3. Plan to see patient in the afternoons whenever possible. Will continue to follow.
[2020-12-21] MEDS: LORazepam 0.5 MG TABLET PO ×3 (12:49→20:00)
[2020-12-21] MEDS: Brexpiprazole 1 MG TABLET 1.5 MG PO (16:59)
--- NOTE | 2020-12-21 17:12 | HO.PM.IMPN ---
Subjective Subjective Date of Service: 12/21/20 Interval History: Seen and evaluated at the bedside. at the bedside as well. Pain seem to be reproducible specially at the lower ribs CXR reviewed with no acute abnormalities Physical Exam Vital Signs: Vital Signs: Last Vital Signs Temp 97.9 F 12/21/20 08:30 Pulse 78 12/21/20 09:41 Resp 26 H 12/21/20 09:41 BP 139/68 12/21/20 09:41 Pulse Ox 94 12/21/20 09:41 Const: Other: Constitutional : Alert, oriented, not in distress Neck : Normal inspection, Supple Cardiovascular : RRR, S1 S2, no lower extremity edema, chest wall tenderness mainly at the lower areas Respiratory : Decreased bilateral air entry, fine basal crackles, no wheezes or rhonchi Gastrointestinal: soft, lax, Normal bowel sounds, Non tender Skin : Warm/Dry, No rash Neurological : Alert & oriented x3, No focal deficit Objective Data Current Medications Generic Name Dose Route Start Last Admin Trade Name Freq PRN Reason Stop Dose Admin Acetaminophen 650 mg 12/04/20 15:37 12/21/20 12:52 Acetaminophen 325 Mg Tablet PO 650 mg Q6H PRN Administration Headache/Pain Mild Scale (1-3) Al Hydroxide/Mg Hydroxide 30 ml 12/04/20 15:37 Magnesium Hydrox/Alum Hydrox 30 Ml Oral.Susp PO Q6H PRN Heartburn/Nausea Benzonatate 100 mg 12/21/20 21:00 Benzonatate 100 Mg Capsule PO TID DOMINICK Brexpiprazole 1.5 mg 12/17/20 17:00 12/21/20 16:59 Brexpiprazole 1 Mg Tablet PO 1.5 mg DAILY@1700 [facility] Administration Budesonide 2 puff 12/06/20 10:21 12/21/20 09:29 Budesonide 180 Mcg Aer.Pow.Ba INHALE 2 puff RBID [facility] Administration Clotrimazole 1 appl 12/14/20 21:00 12/21/20 09:29 Clotrimazole 1 % Cream 15 Gm Tube TOPICAL 1 appl BID DOMINICK Administration Protocol Docusate Sodium 100 mg 12/04/20 15:34 Docusate Sodium 100 Mg Capsule PO DAILY PRN Constipation Famotidine 20 mg 12/05/20 09:00 12/21/20 09:29 Famotidine 20 Mg Tablet PO 20 mg DAILY [facility] Administration Fluoxetine HCl 15 mg 12/18/20 09:00 12/21/20 09:29 Fluoxetine Hcl Oral Solution 20 Mg/5 Ml Solution PO 15 mg DAILY [facility] Administration Guaifenesin/Dextromethorphan 5 ml 12/04/20 15:34 12/13/20 06:32 Guaifenesin Dm 100/10/5 Ml 5 Ml Syrup PO 5 ml Q6H PRN Administration cough Hydroxyzine HCl 25 mg 12/04/20 15:37 12/20/20 23:15 Hydroxyzine Hcl 25 Mg Tablet PO 25 mg BEDTIME PRN Administration Anxiety Hydroxyzine HCl 25 mg 12/15/20 18:14 12/21/20 04:15 Hydroxyzine Hcl 25 Mg Tablet PO 25 mg Q6H PRN Administration Anxiety Lidocaine 2 patch 12/21/20 17:15 Lidocaine 4 % Patch Adh..Patch TRANSDERMA DAILY [facility] Protocol Loperamide HCl 2 mg 12/08/20 16:31 12/12/20 02:22 Loperamide Hcl 2 Mg Capsule PO 2 mg Q4H PRN Administration Diarrhea Lorazepam 0.5 mg 12/20/20 12:18 12/21/20 12:49 Lorazepam 0.5 Mg Tablet PO 0.5 mg Q4H PRN Administration Anxiety Lorazepam 0.5 mg 12/20/20 21:00 12/20/20 20:30 Lorazepam 0.5 Mg Tablet PO 0.5 mg BEDTIME DOMINICK Administration Magnesium Hydroxide 30 ml 12/04/20 15:37 Milk Of Magnesia 30 Ml Oral.Susp PO DAILY PRN Constipation Non-Formulary Medication 1 each 12/04/20 21:00 12/21/20 09:30 Patient Own Medication PO 1 each BID DOMINICK Administration Omeprazole 20 mg 12/09/20 16:30 12/21/20 16:59 Omeprazole 20 Mg Capsule.Dr PO 20 mg BID@0630,1630 [facility] Administration Ondansetron HCl 4 mg 12/04/20 15:34 Ondansetron Odt 4 Mg Tab.Rapdis TRANSLINGU Q8H PRN nausea/vomiting Ondansetron HCl 4 mg 12/04/20 15:34 Ondansetron Hcl 4 Mg/2 Ml Vial IVPUSH Q8H PRN Nausea and Vomiting Quetiapine Fumarate 12.5 mg 12/17/20 21:00 12/20/20 20:14 Quetiapine Fumarate 25 Mg Tablet PO 12.5 mg BEDTIME DOMINICK Administration Labs CBC & Chem 7: 12/09/20 10:06 12/06/20 08:39 Assessment and Plan (1) Increased oxygen demand: Status: Acute (2) Pneumonia: Status: Acute (3) Pulmonary fibrosis: Status: Acute Assessment and Plan: a 80-year-old male with past medical history of COPD, pulmonary fibrosis, CVA, CKD, depression, CHF, anxiety, who was discharged from [facility] to the psych unit on December 04 after treatment for hypoxic respiratory failure and pneumonia. Complaining of chest wall pain and coughing. Chest wall pain Secondary to Cough CXR showing no acute abnormalities Seems to be reproducible, muscular in origin To use lidocaine patch Add Tessalon Perles t.i.d. Encourage incentive spirometry Chronic hypoxic respiratory failure Stable on 2 L of oxygen at bedtime and as needed. Continue physical therapy Thank you for the consult, will continue to monitor the patient with you as needed. Please contact hospitalist team for any question.
[2020-12-21] MEDS: Lidocaine 4 % Patch ADH..PATCH 2 PATCH TRANSDERMA (17:17)
[2020-12-21] MEDS: QUEtiapine Fumarate 25 MG TABLET 12.5 MG PO (20:00)
--- NOTE | 2020-12-21 21:07 | P.PNPSI_ITS ---
Subjective Subjective Date of Service: 12/22/20 Reason For Visit: Severe depression Subjective Notes: Conditional Voluntary Interim History: Patient did well with ECT chest x-ray was ordered secondary to 2-3 days of soreness was seen by hospitalist who felt it was muscular pain chest x-ray was unchanged Medication Compliance: Yes Mental Status Exam Mental Status Exam Patient Appearance: Fatigued Patient Orientation: Person, Place and Situation Level of Consciousness: Lethargic Patient Behavior: Dependent, Cooperative, Passive, Anxious, Fearful, Fatigued and Confused Mood Description: Apathetic, Depressed and Anxious Affect Description: Apathetic and Flat Patient Cognition Impaired: Yes Ability to Follow Directions: Fair Speech Pattern: Perseverating, Spontaneous Speech and Soft-Spoken Memory Description: Episodic Impaired Depressive Symptoms: Increased Anxiety, Insomnia, Diff. Making Decisions, Difficulty Sleeping, Changes in Appetite, Loss of Int. in Activity, Feelings of Worthlessness, Hopelessness, Isolating-Friends/Family, Feelings of Guilt, Unhappiness, Increased Fatigue, Thoughts of /Suicide, Loss of Energy and Difficulty Concentrating Judgement: Fair Diagnostics Vital Signs (24Hr): Vital Signs - 24 hr 12/21/20 05:50 12/21/20 06:45 12/21/20 06:57 Temperature 97.4 F 97.4 F 98.1 F Pulse Rate 66 66 64 Respiratory Rate 22 H 22 H 22 H Blood Pressure 118/62 118/62 141/80 H Pulse Oximetry 95 95 12/21/20 08:00 12/21/20 08:05 12/21/20 08:11 Temperature 97.9 F Pulse Rate 76 78 81 Respiratory Rate 20 16 17 Blood Pressure 177/96 H 155/94 H 160/96 H Pulse Oximetry 100 100 100 12/21/20 08:15 12/21/20 08:30 12/21/20 09:41 Temperature 97.9 F Pulse Rate 83 80 78 Respiratory Rate 17 17 26 H Blood Pressure 161/96 H 139/68 Pulse Oximetry 100 99 94 12/21/20 19:42 Temperature 97.9 F Pulse Rate 71 Respiratory Rate 24 H Blood Pressure 155/89 H Pulse Oximetry 94 Labs Results: 12/09/20 10:06 12/22/20 08:13 Imaging Radiology Impressions: ITS Impressions Chest X-Ray 12/05/20 18:58 IMPRESSION: Severe chronic interstitial lung disease stable when compared to the prior study. There are probably new small trace pleural effusions present Modified Barium Swallow 12/10/20 14:00 IMPRESSION: 1. No evidence of aspiration. Transient penetration with thin and nectar consistency. 2. Abnormalities of the oral and pharyngeal phase of swallowing as described above, with moderate vallecular retention. 3. Please see speech pathology report for specific recommendations and further information. Chest X-Ray 12/21/20 11:40 IMPRESSION: Scattered pulmonary opacities superimposed upon interstitial fibrotic changes similar to recent exams. Medications Medications Current Medications Generic Name Dose Route Start Last Admin Trade Name Freq PRN Reason Stop Dose Admin Acetaminophen 650 mg 12/04/20 15:37 12/21/20 19:07 Acetaminophen 325 Mg Tablet PO 650 mg Q6H PRN Administration Headache/Pain Mild Scale (1-3) Al Hydroxide/Mg Hydroxide 30 ml 12/04/20 15:37 Magnesium Hydrox/Alum Hydrox 30 Ml Oral.Susp PO Q6H PRN Heartburn/Nausea Benzonatate 100 mg 12/21/20 21:00 12/21/20 20:45 Benzonatate 100 Mg Capsule PO Not Given TID [facility] Brexpiprazole 1.5 mg 12/17/20 17:00 12/21/20 16:59 Brexpiprazole 1 Mg Tablet PO 1.5 mg DAILY@1700 [facility] Administration Budesonide 2 puff 12/06/20 10:21 12/21/20 20:00 Budesonide 180 Mcg Aer.Pow.Ba INHALE 2 puff RBID [facility] Administration Clotrimazole 1 appl 12/14/20 21:00 12/21/20 20:01 Clotrimazole 1 % Cream 15 Gm Tube TOPICAL Not Given BID [facility] Protocol Docusate Sodium 100 mg 12/04/20 15:34 Docusate Sodium 100 Mg Capsule PO DAILY PRN Constipation Famotidine 20 mg 12/05/20 09:00 12/21/20 09:29 Famotidine 20 Mg Tablet PO 20 mg DAILY [facility] Administration Fluoxetine HCl 15 mg 12/18/20 09:00 12/21/20 09:29 Fluoxetine Hcl Oral Solution 20 Mg/5 Ml Solution PO 15 mg DAILY [facility] Administration Guaifenesin/Dextromethorphan 5 ml 12/04/20 15:34 12/13/20 06:32 Guaifenesin Dm 100/10/5 Ml 5 Ml Syrup PO 5 ml Q6H PRN Administration cough Hydroxyzine HCl 25 mg 12/04/20 15:37 12/21/20 20:00 Hydroxyzine Hcl 25 Mg Tablet PO 25 mg BEDTIME PRN Administration Anxiety Hydroxyzine HCl 25 mg 12/15/20 18:14 12/21/20 04:15 Hydroxyzine Hcl 25 Mg Tablet PO 25 mg Q6H PRN Administration Anxiety Lidocaine 2 patch 12/21/20 17:15 12/21/20 17:17 Lidocaine 4 % Patch Adh..Patch TRANSDERMA 2 patch DAILY [facility] Administration Protocol Loperamide HCl 2 mg 12/08/20 16:31 12/12/20 02:22 Loperamide Hcl 2 Mg Capsule PO 2 mg Q4H PRN Administration Diarrhea Lorazepam 0.5 mg 12/20/20 12:18 12/21/20 17:28 Lorazepam 0.5 Mg Tablet PO 0.5 mg Q4H PRN Administration Anxiety Lorazepam 0.5 mg 12/20/20 21:00 12/21/20 20:00 Lorazepam 0.5 Mg Tablet PO 0.5 mg BEDTIME [facility] Administration Magnesium Hydroxide 30 ml 12/04/20 15:37 Milk Of Magnesia 30 Ml Oral.Susp PO DAILY PRN Constipation Non-Formulary Medication 1 each 12/04/20 21:00 12/21/20 20:00 Patient Own Medication PO 1 each BID [facility] Administration Omeprazole 20 mg 12/09/20 16:30 12/21/20 16:59 Omeprazole 20 Mg Capsule. PO 20 mg BID@0630,1630 [facility] Administration Ondansetron HCl 4 mg 12/04/20 15:34 Ondansetron Odt 4 Mg Tab.Rapdis TRANSLINGU Q8H PRN nausea/vomiting Ondansetron HCl 4 mg 12/04/20 15:34 Ondansetron Hcl 4 Mg/2 Ml Vial IVPUSH Q8H PRN Nausea and Vomiting Quetiapine Fumarate 12.5 mg 12/17/20 21:00 12/21/20 20:00 Quetiapine Fumarate 25 Mg Tablet PO 12.5 mg BEDTIME [facility] Administration Allergies Allergies Allergy/AdvReac Type Severity Reaction Status Date / Time Sulfa (Sulfonamide Allergy Unknown UNKNOWN Verified 12/01/20 09:47 Antibiotics) [SULFA (SULFONAMIDE ANTIBIOTICS)] zoster vaccine live Allergy Hives Verified 12/01/20 09:47 Assessment & Plan Assessment & Plan (1) Bipolar I disorder with depression, severe: Status: Acute Code(s): F31.4 - Bipolar disorder, current episode depressed, severe, without psychotic features Assessment and Plan: Continue ECT as tolerated continue Prozac Rexulti monitor pulse oxygen chest x- ray unremarkable case reviewed with hospitalist service check labs in LFTs Greater than 50% of the session was spent on counseling and/or coordination of care Reason for contiued inpatient stay Substantial Risk for: inability to function and med/psych decompensation
[2020-12-22] MEDS: hydrOXYzine HCL 25 MG TABLET PO ×2 (02:25→21:27)
[2020-12-22] MEDS: LORazepam 0.5 MG TABLET PO ×2 (02:25→20:58)
[2020-12-22] MEDS: Acetaminophen 325 MG TABLET 650 MG PO ×4 (02:47→21:18)
[2020-12-22] MEDS: Omeprazole 20 MG CAPSULE.DR PO ×2 (06:24→17:36)
[2020-12-22 06:35] VITALS: BP 133/61; PULSE 73; RESP 22; TEMP 36.8; O2SAT 94
[2020-12-22] MEDS: FLUoxetine HCl Oral Solution 20 MG/5 ML SOLUTION 15 MG PO (08:51)
[2020-12-22] MEDS: Benzonatate 100 MG CAPSULE PO ×3 (08:52→20:58)
[2020-12-22] MEDS: Famotidine 20 MG TABLET PO (08:52)
[2020-12-22] MEDS: Lidocaine 4 % Patch ADH..PATCH 2 PATCH TRANSDERMA (08:53)
[2020-12-22] MEDS: Budesonide 180 MCG AER.POW.BA 2 PUFF INHALE ×2 (08:54→20:59)
[2020-12-22 09:08] LABS: Alanine Aminotransferase 42 U/L (0-40); Albumin Level 3.2 g/dL (3.5-5.0); Alkaline Phosphatase 114 U/L (39-117); Anion Gap 11 (12-20); Aspartate Amino Transferase 45 U/L (5-37); Bilirubin Total 0.4 mg/dL (0.0-1.0); Blood Urea Nitrogen 17 mg/dL (9-16); Calcium 8.7 mg/dL (8.4-10.2); Carbon Dioxide 28 mmol/L (22-29); Chloride 93 mmol/L (96-108); Creatinine Clr Calc Pharmacy 48.6; Estimated Glomerular Filt Rate > 60; Glucose Fasting 100 mg/dL (60-99); Sodium 127 mmol/L (135-145); Total Protein 6.5 g/dL (6.5-8.0)
[2020-12-22 09:09] LABS: Alanine Aminotransferase 42 U/L (0-40); Albumin Level 3.2 g/dL (3.5-5.0); Alkaline Phosphatase 115 U/L (39-117); Aspartate Amino Transferase 44 U/L (5-37); Bilirubin Direct 0.2 mg/dL (0.0-0.5); Bilirubin Total 0.4 mg/dL (0.0-1.0); Total Protein 6.5 g/dL (6.5-8.0)
[2020-12-22 09:44] LABS: Vitamin B12 864 pg/mL (200-900)
--- NOTE | 2020-12-22 10:23 | MHC.SLORD ---
Speech Language Pathology Order Status: Per previous CONTINUOUS YARN DYEING MACHINE OPERATOR note, pt refusing tx x3 instances. CONTINUOUS YARN DYEING MACHINE OPERATOR will attempt to see pt in afternoon if possible.
[2020-12-22] MEDS: Clotrimazole 1 % Cream 15 GM TUBE 1 APPL TOPICAL (10:40)
[2020-12-22 14:41] VITALS: BP 95/52; PULSE 67; RESP 16; TEMP 36.9; O2SAT 96
[2020-12-22 16:53] LABS: Osmolality, Serum 274 mosm/kg (281-305)
[2020-12-22] MEDS: Brexpiprazole 1 MG TABLET 1.5 MG PO (17:36)
[2020-12-22] MEDS: Urea 15 GM POWDER 30 GM PO (17:38)
[2020-12-22 20:45] VITALS: BP 142/80; PULSE 67; TEMP 37; O2SAT 95
[2020-12-22] MEDS: QUEtiapine Fumarate 25 MG TABLET 12.5 MG PO (20:58)
--- NOTE | 2020-12-22 21:59 | P.PNPSI_ITS ---
Subjective Subjective Date of Service: 12/22/20 Reason For Visit: Severe depression Subjective Notes: Conditional Voluntary Interim History: pt depressed flat anxious difficulty with eating hyponatremia nephrology consult ordered on close obs Medication Compliance: Yes Side effects from medications: Yes Attending Groups: No Mental Status Exam Mental Status Exam Patient Appearance: Fatigued Patient Orientation: Person, Place and Situation Level of Consciousness: Follows Commands and Lethargic Patient Behavior: Dependent, Cooperative, Passive, Anxious, Fearful and Fatigued Mood Description: Apathetic, Withdrawn, Depressed and Anxious Affect Description: Apathetic, Blunted, Flat and Sad Patient Cognition Impaired: Yes Ability to Follow Directions: Fair Speech Pattern: Perseverating, Spontaneous Speech and Soft-Spoken Memory Description: Episodic Impaired Depressive Symptoms: Increased Anxiety, Insomnia, Diff. Making Decisions, Difficulty Sleeping, Changes in Appetite, Loss of Int. in Activity, Feelings of Worthlessness, Hopelessness, Isolating-Friends/Family, Feelings of Guilt, Unhappiness, Increased Fatigue, Thoughts of /Suicide, Loss of Energy and Difficulty Concentrating Judgement: Fair Diagnostics Vital Signs (24Hr): Vital Signs - 24 hr 12/22/20 06:35 12/22/20 14:41 Temperature 98.2 F 98.5 F Pulse Rate 73 67 Respiratory Rate 22 H 16 Blood Pressure 133/61 95/52 L Pulse Oximetry 94 96 Body Mass Index 0.2 Labs Results: 12/09/20 10:06 12/23/20 07:58 Labs: Laboratory Results - last 48 hr 12/22/20 12/22/20 12/22/20 08:13 08:13 08:13 Sodium 127 L Potassium 5.0 D Chloride 93 L Carbon Dioxide 28 Anion Gap 11 L BUN 17 H Creatinine 0.97 Estim Creat Clear Calc 48.6 Estimated GFR > 60 Fasting Glucose 100 H Osmolality Calcium 8.7 D Total Bilirubin 0.4 0.4 Direct Bilirubin 0.2 AST 44 H D 45 H ALT 42 H 42 H Alkaline Phosphatase 115 D 114 Total Protein 6.5 6.5 Albumin 3.2 L 3.2 L Vitamin B12 864 12/22/20 08:13 Sodium Potassium Chloride Carbon Dioxide Anion Gap BUN Creatinine Estim Creat Clear Calc Estimated GFR Fasting Glucose Osmolality 274 L Calcium Total Bilirubin Direct Bilirubin AST ALT Alkaline Phosphatase Total Protein Albumin Vitamin B12 Imaging Radiology Impressions: ITS Impressions Chest X-Ray 12/05/20 18:58 IMPRESSION: Severe chronic interstitial lung disease stable when compared to the prior study. There are probably new small trace pleural effusions present Modified Barium Swallow 12/10/20 14:00 IMPRESSION: 1. No evidence of aspiration. Transient penetration with thin and nectar consistency. 2. Abnormalities of the oral and pharyngeal phase of swallowing as described above, with moderate vallecular retention. 3. Please see speech pathology report for specific recommendations and further information. Chest X-Ray 12/21/20 11:40 IMPRESSION: Scattered pulmonary opacities superimposed upon interstitial fibrotic changes similar to recent exams. Medications Medications Current Medications Generic Name Dose Route Start Last Admin Trade Name Freq PRN Reason Stop Dose Admin Acetaminophen 650 mg 12/04/20 15:37 12/22/20 21:18 Acetaminophen 325 Mg Tablet PO 650 mg Q6H PRN Administration Headache/Pain Mild Scale (1-3) Al Hydroxide/Mg Hydroxide 30 ml 12/04/20 15:37 Magnesium Hydrox/Alum Hydrox 30 Ml Oral.Susp PO Q6H PRN Heartburn/Nausea Benzonatate 100 mg 12/21/20 21:00 12/22/20 20:58 Benzonatate 100 Mg Capsule PO 100 mg TID [facility] Administration Brexpiprazole 1.5 mg 12/17/20 17:00 12/22/20 17:36 Brexpiprazole 1 Mg Tablet PO 1.5 mg DAILY@1700 [facility] Administration Budesonide 2 puff 12/06/20 10:21 12/22/20 20:59 Budesonide 180 Mcg Aer.Pow.Ba INHALE 2 puff RBID [facility] Administration Clotrimazole 1 appl 12/14/20 21:00 12/22/20 21:15 Clotrimazole 1 % Cream 15 Gm Tube TOPICAL Not Given BID [facility] Protocol Docusate Sodium 100 mg 12/04/20 15:34 Docusate Sodium 100 Mg Capsule PO DAILY PRN Constipation Famotidine 20 mg 12/05/20 09:00 12/22/20 08:52 Famotidine 20 Mg Tablet PO 20 mg DAILY [facility] Administration Guaifenesin/Dextromethorphan 5 ml 12/04/20 15:34 12/13/20 06:32 Guaifenesin Dm 100/10/5 Ml 5 Ml Syrup PO 5 ml Q6H PRN Administration cough Hydroxyzine HCl 25 mg 12/04/20 15:37 12/22/20 21:27 Hydroxyzine Hcl 25 Mg Tablet PO 25 mg BEDTIME PRN Administration Anxiety Hydroxyzine HCl 25 mg 12/15/20 18:14 12/22/20 02:25 Hydroxyzine Hcl 25 Mg Tablet PO 25 mg Q6H PRN Administration Anxiety Lidocaine 2 patch 12/21/20 17:15 12/22/20 08:53 Lidocaine 4 % Patch Adh..Patch TRANSDERMA 2 patch DAILY [facility] Administration Protocol Loperamide HCl 2 mg 12/08/20 16:31 12/12/20 02:22 Loperamide Hcl 2 Mg Capsule PO 2 mg Q4H PRN Administration Diarrhea Lorazepam 0.5 mg 12/20/20 12:18 12/22/20 02:25 Lorazepam 0.5 Mg Tablet PO 0.5 mg Q4H PRN Administration Anxiety Lorazepam 0.5 mg 12/20/20 21:00 12/22/20 20:58 Lorazepam 0.5 Mg Tablet PO 0.5 mg BEDTIME [facility] Administration Magnesium Hydroxide 30 ml 12/04/20 15:37 Milk Of Magnesia 30 Ml Oral.Susp PO DAILY PRN Constipation Non-Formulary Medication 1 each 12/04/20 21:00 12/22/20 21:00 Patient Own Medication PO 1 each BID [facility] Administration Omeprazole 20 mg 12/09/20 16:30 12/22/20 17:36 Omeprazole 20 Mg Capsule. PO 20 mg BID@0630,1630 [facility] Administration Ondansetron HCl 4 mg 12/04/20 15:34 Ondansetron Odt 4 Mg Tab.Rapdis TRANSLINGU Q8H PRN nausea/vomiting Ondansetron HCl 4 mg 12/04/20 15:34 Ondansetron Hcl 4 Mg/2 Ml Vial IVPUSH Q8H PRN Nausea and Vomiting Quetiapine Fumarate 12.5 mg 12/17/20 21:00 12/22/20 20:58 Quetiapine Fumarate 25 Mg Tablet PO 12.5 mg BEDTIME [facility] Administration Allergies Allergies Allergy/AdvReac Type Severity Reaction Status Date / Time Sulfa (Sulfonamide Allergy Unknown UNKNOWN Verified 12/01/20 09:47 Antibiotics) [SULFA (SULFONAMIDE ANTIBIOTICS)] zoster vaccine live Allergy Hives Verified 12/01/20 09:47 Assessment & Plan Assessment & Plan (1) Swallowing dysfunction: Status: Acute Code(s): R13.10 - Dysphagia, unspecified Assessment and Plan: see diet aspiration precautions (2) Pulmonary fibrosis: Status: Acute Code(s): J84.10 - Pulmonary fibrosis, unspecified Assessment and Plan: monitor o2 replacement as needed (3) Bipolar I disorder with depression, severe: Status: Acute Code(s): F31.4 - Bipolar disorder, current episode depressed, severe, without psychotic features Assessment and Plan: stop prozac secondary to hyponatremia restart ect when possible (4) CKD (chronic kidney disease) stage 3, GFR 30-59 ml/min: Status: Acute Code(s): N18.30 - Chronic kidney disease, stage 3 unspecified Assessment and Plan: hyponatrmia nephrology consult Greater than 50% of the session was spent on counseling and/or coordination of care Reason for contiued inpatient stay Substantial Risk for: inability to function and rapid decompensation
[2020-12-22 22:22] LABS: Osmolality Urine 540 mosm/kg (373-1093)
[2020-12-23 06:00] VITALS: BP 110/66; PULSE 73; RESP 20; TEMP 36.8; O2SAT 95
[2020-12-23] MEDS: Benzonatate 100 MG CAPSULE PO ×3 (08:39→19:59)
[2020-12-23] MEDS: Lidocaine 4 % Patch ADH..PATCH 2 PATCH TRANSDERMA (08:39)
[2020-12-23] MEDS: Famotidine 20 MG TABLET PO (08:39)
[2020-12-23] MEDS: Acetaminophen 325 MG TABLET 650 MG PO ×2 (08:39→16:35)
[2020-12-23] MEDS: Omeprazole 20 MG CAPSULE.DR PO ×2 (08:39→16:37)
[2020-12-23] MEDS: Budesonide 180 MCG AER.POW.BA 2 PUFF INHALE ×2 (08:40→19:58)
[2020-12-23 08:41] LABS: Anion Gap 12 (12-20); Carbon Dioxide 29 mmol/L (22-29); Chloride 94 mmol/L (96-108); Potassium 5.2 mmol/L (3.3-5.1); Sodium 130 mmol/L (135-145)
[2020-12-23 08:45] LABS: Uric Acid 2.3 mg/dL (3.4-7.0)
[2020-12-23] MEDS: LORazepam 0.5 MG TABLET PO ×2 (14:54→19:58)
[2020-12-23 15:00] VITALS: BP 117/67; PULSE 77; RESP 32; TEMP 36.9; O2SAT 96
--- NOTE | 2020-12-23 16:07 | HO.PM.IMPN ---
Subjective Subjective Date of Service: 12/23/20 Interval History: dysphagia Cardiovascular Cardiovascular: Reports no additional cardiovascular complaints Gastrointestinal Gastrointestinal: Reports no additional gastrointestinal complaints Physical Exam Vital Signs: Vital Signs: Last Vital Signs Temp 98.4 F 12/23/20 15:00 Pulse 77 12/23/20 15:00 Resp 32 H 12/23/20 15:00 BP 117/67 12/23/20 15:00 Pulse Ox 96 12/23/20 15:00 Body Mass Index 0.2 General: lethargic O X 3, no acute distress Resp: CTA bilateral CVS: S1,S2,RRR GI: soft, non tender, non distended Neuro: motor grossly intact Psych: appropriate affect Objective Data Current Medications Generic Name Dose Route Start Last Admin Trade Name Freq PRN Reason Stop Dose Admin Acetaminophen 650 mg 12/04/20 15:37 12/23/20 08:39 Acetaminophen 325 Mg Tablet PO 650 mg Q6H PRN Administration Headache/Pain Mild Scale (1-3) Al Hydroxide/Mg Hydroxide 30 ml 12/04/20 15:37 Magnesium Hydrox/Alum Hydrox 30 Ml Oral.Susp PO Q6H PRN Heartburn/Nausea Benzonatate 100 mg 12/21/20 21:00 12/23/20 14:54 Benzonatate 100 Mg Capsule PO 100 mg TID [facility] Administration Brexpiprazole 1.5 mg 12/17/20 17:00 12/22/20 17:36 Brexpiprazole 1 Mg Tablet PO 1.5 mg DAILY@1700 [facility] Administration Budesonide 2 puff 12/06/20 10:21 12/23/20 08:40 Budesonide 180 Mcg Aer.Pow.Ba INHALE 2 puff RBID [facility] Administration Clotrimazole 1 appl 12/14/20 21:00 12/23/20 08:53 Clotrimazole 1 % Cream 15 Gm Tube TOPICAL Not Given BID [facility] Protocol Docusate Sodium 100 mg 12/04/20 15:34 Docusate Sodium 100 Mg Capsule PO DAILY PRN Constipation Famotidine 20 mg 12/05/20 09:00 12/23/20 08:39 Famotidine 20 Mg Tablet PO 20 mg DAILY [facility] Administration Guaifenesin/Dextromethorphan 5 ml 12/04/20 15:34 12/13/20 06:32 Guaifenesin Dm 100/10/5 Ml 5 Ml Syrup PO 5 ml Q6H PRN Administration cough Hydroxyzine HCl 25 mg 12/04/20 15:37 12/22/20 21:27 Hydroxyzine Hcl 25 Mg Tablet PO 25 mg BEDTIME PRN Administration Anxiety Hydroxyzine HCl 25 mg 12/15/20 18:14 12/22/20 02:25 Hydroxyzine Hcl 25 Mg Tablet PO 25 mg Q6H PRN Administration Anxiety Lidocaine 2 patch 12/21/20 17:15 12/23/20 08:39 Lidocaine 4 % Patch Adh..Patch TRANSDERMA 2 patch DAILY [facility] Administration Protocol Loperamide HCl 2 mg 12/08/20 16:31 12/12/20 02:22 Loperamide Hcl 2 Mg Capsule PO 2 mg Q4H PRN Administration Diarrhea Lorazepam 0.5 mg 12/20/20 12:18 12/23/20 14:54 Lorazepam 0.5 Mg Tablet PO 0.5 mg Q4H PRN Administration Anxiety Lorazepam 0.5 mg 12/20/20 21:00 12/22/20 20:58 Lorazepam 0.5 Mg Tablet PO 0.5 mg BEDTIME [facility] Administration Magnesium Hydroxide 30 ml 12/04/20 15:37 Milk Of Magnesia 30 Ml Oral.Susp PO DAILY PRN Constipation Non-Formulary Medication 1 each 12/04/20 21:00 12/23/20 08:40 Patient Own Medication PO 1 each BID [facility] Administration Omeprazole 20 mg 12/09/20 16:30 12/23/20 08:39 Omeprazole 20 Mg Capsule.Dr PO 20 mg BID@0630,1630 [facility] Administration Ondansetron HCl 4 mg 12/04/20 15:34 Ondansetron Odt 4 Mg Tab.Rapdis TRANSLINGU Q8H PRN nausea/vomiting Ondansetron HCl 4 mg 12/04/20 15:34 Ondansetron Hcl 4 Mg/2 Ml Vial IVPUSH Q8H PRN Nausea and Vomiting Quetiapine Fumarate 12.5 mg 12/17/20 21:00 12/22/20 20:58 Quetiapine Fumarate 25 Mg Tablet PO 12.5 mg BEDTIME [facility] Administration Labs CBC & Chem 7: 12/09/20 10:06 12/23/20 07:58 Assessment and Plan (1) Pulmonary fibrosis: Status: Acute (2) Swallowing dysfunction: Status: Acute Assessment and Plan: 80M with pulmonary fibrosis and dysphagia dysphagia MBSS done 12/10/20 some coughing still on pureed and nectar thick liquids reports decent intake - recommend calorie count, nutrition eval, gi eval patient does not appear to need medical inpatient transfer at his time
[2020-12-23] MEDS: Brexpiprazole 1 MG TABLET 1.5 MG PO (16:34)
[2020-12-23 18:00] VITALS: BP 101/61; PULSE 74; RESP 28; TEMP 36.9; O2SAT 95
[2020-12-23] MEDS: Clotrimazole 1 % Cream 15 GM TUBE 1 APPL TOPICAL (19:57)
[2020-12-23] MEDS: QUEtiapine Fumarate 25 MG TABLET 12.5 MG PO (19:59)
--- NOTE | 2020-12-23 20:11 | PM.CNNEP ---
History of Present Illness Reason for Consult Consult date: 12/23/20 Reason for consult: hypoNa Chief Complaint Chief complaint: Severe depression History of Present Illness Narrative: Known to me with h/o of recurrent episodes of hyponatremia and hyperK with prior w/u negative for adrenal insuff. Now adm for psych issues and noted SNa 127 on adm and repeat Sna 130 this am and K 5.2. C/O swallowing issues and getting eval. Not on HCTZ tyoe diuretics. Review of Systems Review of Systems No fever, chills or weakness No chest pain, palpitation No shortness of breath or coughing , feels breathing is a bit tighter No abdominal pain, nausea or vomiting No urinary symptoms No any rash or wounds Yes all other systems are reviewed and are negative Constitutional: Denies daytime sleepiness, Denies excessive sweating, Denies fatigue, Denies fever(s), Denies lethargy, Denies malaise, Denies night sweats, Denies snoring and Denies weight loss Eyes: Denies blurry vision and Denies itchy eyes Denies nasal congestion, Denies post nasal drip, Denies sinus pain, Denies sinus pressure and Denies other ( Thrush) Cardiovascular: Reports no additional cardiovascular complaints, Denies chest pain, Denies pedal edema, Denies leg edema, Denies dyspnea, Denies orthopnea and Denies paroxysmal nocturnal dyspnea Respiratory: Reports chest congestion, Denies cough, Denies hemoptysis, Denies excessive phlegm production, Denies dyspnea, Denies snoring and Denies wheezing Gastrointestinal: Reports no additional gastrointestinal complaints, Denies abdominal pain and Denies heartburn Musculoskeletal: Denies myalgias, Denies arthralgias and Denies joint swelling Skin/Breast: Denies rash Reports behavioral changes, Reports confusion and Denies seizure-like activity Psychiatric: Reports anxiety, Reports behavioral changes, Reports confusion, Reports depression, Reports difficulty concentrating, Reports hopelessness, Reports anhedonia and Reports panic attacks Endocrine: Denies excessive sweating, Denies fatigue and Denies heat intolerance Hematologic/Lymphatic: Denies easy bruising Allergic/Immunologic: Denies itchy eyes, Denies seasonal rhinorrhea and Denies wheezing PMFSH Past Medical History Medical History Anemia Anxiety Bronchiectasis Cerebrovascular disease Chronic hyponatremia CKD (chronic kidney disease) stage 3, GFR 30-59 ml/min Degenerative arthritis Depression History of electroconvulsive therapy Hx of bladder cancer Hydrocele Pulmonary fibrosis Pulmonary fibrosis Family History Family History Father Colon cancer Surgical History Surgical History History of bladder surgery Social History Social History Household Members: Spouse Housing: House Do you presently have visiting nurse or other home services: Yes Smoking Status: Never smoker Second Hand Smoke Exposure: No Use of substances other than those prescribed or required for medical reasons: Yes Substance Use Type: Marijuana Substance Use Frequency: Daily Currently Displaying Signs/Symptoms of Drug Intoxication Withdrawal: No Any prior treatment program specific to substance use: No Have you been hit, kicked, punched, or otherwise hurt by someone within the past year? If so, by whom?: No Do you feel safe in your current relationship?: Yes Is there a partner from a previous relationship who is making you feel unsafe now?: No Are you made to feel afraid or neglected: No Advance Directives: No Advance Directives Information Provided: No Advance Directives on File: No Advance Directives Date on File: 11/27/20 Do you have thoughts of harming others: None Do you have a plan to hurt others: No Plan Recently lost weight without trying: No service: No Current occupational status: retired Sexual orientation: Straight/Heterosexual Meds Allergies Allergy/AdvReac Type Severity Reaction Status Date / Time Sulfa (Sulfonamide Allergy Unknown UNKNOWN Verified 12/01/20 09:47 Antibiotics) [SULFA (SULFONAMIDE ANTIBIOTICS)] zoster vaccine live Allergy Hives Verified 12/01/20 09:47 Active Medications: Current Medications Generic Name Dose Route Start Last Admin Trade Name Freq PRN Reason Stop Dose Admin Acetaminophen 650 mg 12/04/20 15:37 12/23/20 16:35 Acetaminophen 325 Mg Tablet PO 650 mg Q6H PRN Administration Headache/Pain Mild Scale (1-3) Al Hydroxide/Mg Hydroxide 30 ml 12/04/20 15:37 Magnesium Hydrox/Alum Hydrox 30 Ml Oral.Susp PO Q6H PRN Heartburn/Nausea Benzonatate 100 mg 04/12/21 21:00 12/23/20 19:59 Benzonatate 100 Mg Capsule PO 100 mg TID DOMINICK Administration Brexpiprazole 1.5 mg 12/17/20 17:00 12/23/20 16:34 Brexpiprazole 1 Mg Tablet PO 1.5 mg DAILY@1700 DOMINICK Administration Budesonide 2 puff 12/06/20 10:21 12/23/20 19:58 Budesonide 180 Mcg Aer.Pow.Ba INHALE 2 puff RBID DOMINICK Administration Clotrimazole 1 appl 12/14/20 21:00 12/23/20 19:57 Clotrimazole 1 % Cream 15 Gm Tube TOPICAL 1 appl BID [facility] Administration Protocol Docusate Sodium 100 mg 12/04/20 15:34 Docusate Sodium 100 Mg Capsule PO DAILY PRN Constipation Famotidine 20 mg 12/05/20 09:00 12/23/20 08:39 Famotidine 20 Mg Tablet PO 20 mg DAILY DOMINICK Administration Guaifenesin/Dextromethorphan 5 ml 12/04/20 15:34 12/13/20 06:32 Guaifenesin Dm 100/10/5 Ml 5 Ml Syrup PO 5 ml Q6H PRN Administration cough Hydroxyzine HCl 25 mg 12/04/20 15:37 12/22/20 21:27 Hydroxyzine Hcl 25 Mg Tablet PO 25 mg BEDTIME PRN Administration Anxiety Hydroxyzine HCl 25 mg 12/15/20 18:14 12/22/20 02:25 Hydroxyzine Hcl 25 Mg Tablet PO 25 mg Q6H PRN Administration Anxiety Lidocaine 2 patch 12/21/20 17:15 12/23/20 08:39 Lidocaine 4 % Patch Adh..Patch TRANSDERMA 2 patch DAILY [facility] Administration Protocol Loperamide HCl 2 mg 12/08/20 16:31 12/12/20 02:22 Loperamide Hcl 2 Mg Capsule PO 2 mg Q4H PRN Administration Diarrhea Lorazepam 0.5 mg 12/20/20 12:18 12/23/20 14:54 Lorazepam 0.5 Mg Tablet PO 0.5 mg Q4H PRN Administration Anxiety Lorazepam 0.5 mg 12/20/20 21:00 12/23/20 19:58 Lorazepam 0.5 Mg Tablet PO 0.5 mg BEDTIME DOMINICK Administration Magnesium Hydroxide 30 ml 12/04/20 15:37 Milk Of Magnesia 30 Ml Oral.Susp PO DAILY PRN Constipation Non-Formulary Medication 1 each 12/04/20 21:00 12/23/20 19:58 Patient Own Medication PO 1 each BID DOMINICK Administration Omeprazole 20 mg 12/09/20 16:30 12/23/20 16:37 Omeprazole 20 Mg Capsule.Dr PO 20 mg BID@0630,1630 DOMINICK Administration Ondansetron HCl 4 mg 12/04/20 15:34 Ondansetron Odt 4 Mg Tab.Rapdis TRANSLINGU Q8H PRN nausea/vomiting Ondansetron HCl 4 mg 12/04/20 15:34 Ondansetron Hcl 4 Mg/2 Ml Vial IVPUSH Q8H PRN Nausea and Vomiting Quetiapine Fumarate 12.5 mg 12/17/20 21:00 12/23/20 19:59 Quetiapine Fumarate 25 Mg Tablet PO 12.5 mg BEDTIME DOMINICK Administration Home Medications Medication Instructions Recorded Confirmed Last Taken Type Latuda 1 tab PO DAILY 11/25/20 12/01/20 11/25/20 History Ofev 150 mg PO BID 11/25/20 12/01/20 11/25/20 History docusate sodium [Stool Softener] 1 cap PO BID PRN 11/25/20 12/01/20 11/25/20 History lorazepam 1 tab PO BID PRN 11/25/20 12/01/20 11/25/20 History mirtazapine 1 tab PO BEDTIME 11/25/20 12/01/20 11/24/20 History ondansetron 1 tab PO Q8H PRN 11/25/20 12/01/20 Unknown History quetiapine 37.5 mg PO BEDTIME 11/25/20 12/01/20 11/24/20 History Physical Exam Vital Signs: Last Vital Signs Temp 98.4 F 12/23/20 15:00 Pulse 77 12/23/20 15:00 Resp 32 H 12/23/20 15:00 BP 117/67 12/23/20 15:00 Pulse Ox 96 12/23/20 15:00 Body Mass Index 0.2 Const Other: Constitutional : Alert, oriented, not in distress Neck : Normal inspection, Supple Cardiovascular : RRR, S1 S2, no lower extremity edema, chest wall tenderness mainly at the lower areas Respiratory : Decreased bilateral air entry, fine basal crackles, no wheezes or rhonchi Gastrointestinal: soft, lax, Normal bowel sounds, Non tender Skin : Warm/Dry, No rash Neurological : Alert & oriented x3, No focal deficit General: no acute distress, alert, awake and confusion Orientation/consciousness: confusion Eyes Sclerae: sclerae normal EOM: EOMs intact bilaterally Neck Neck: Yes no lymphadenopathy, Yes trachea midline and Yes supple Resp Effort & Inspection: normal respiratory effort and no respiratory distress Auscultation: clear to auscultation bilaterally Cardio Rate: regular rate Rhythm: regular rhythm Heart sounds: no gallops, no murmurs and no rubs GI Palpation (GI): Soft to palpation and Other GI palpation findings present ( Nontender) Auscultation: normal bowel sounds Neuro General: confusion Extrem General: Yes no pedal edema, No clubbing and No cyanosis Results Lab Results Result Diagrams: 12/09/20 10:06 12/23/20 07:58 Lab results: Chemistry 12/22/20 12/23/20 08:13 07:58 Sodium 127 L 130 L Potassium 5.0 D 5.2 H Carbon Dioxide 28 29 BUN 17 H Creatinine 0.97 Calcium 8.7 D Urine Studies 12/22/20 21:41 Urine Osmolality 540 Assessment and Plan (1) Pulmonary fibrosis: Status: Acute (2) Swallowing dysfunction: Status: Acute Euvolemic vs Hypovolemic HypoNa: despite his clinical exam looking dry the 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
--- NOTE | 2020-12-23 23:14 | P.PNPSI_ITS ---
Subjective Subjective Date of Service: 12/23/20 Reason For Visit: Severe depression Subjective Notes: Conditional Voluntary Interim History: pt depressed has dysphagia difficulty maintaining nutrition off prozac ect held Medication Compliance: Yes Side effects from medications: Yes Mental Status Exam Mental Status Exam Patient Appearance: Fatigued Patient Orientation: Person, Place and Situation Level of Consciousness: Follows Commands and Lethargic Patient Behavior: Dependent, Cooperative, Passive, Anxious, Fearful and Fatigued Mood Description: Apathetic, Withdrawn, Depressed and Anxious Affect Description: Apathetic, Blunted, Flat and Sad Patient Cognition Impaired: Yes Ability to Follow Directions: Fair Speech Pattern: Perseverating, Spontaneous Speech and Soft-Spoken Memory Description: Episodic Impaired Thought Content: positive for [place], positive for Poverty of Content, negative for Suicidal Ideation and negative for Homicidal Ideation Depressive Symptoms: Increased Anxiety, Insomnia, Diff. Making Decisions, Difficulty Sleeping, Changes in Appetite, Loss of Int. in Activity, Feelings of Worthlessness, Hopelessness, Isolating-Friends/Family, Feelings of Guilt, Unhappiness, Increased Fatigue, Thoughts of /Suicide, Loss of Energy and Difficulty Concentrating Judgement: Fair Judgement and Insight: helpless hopeless despondent Diagnostics Vital Signs (24Hr): Vital Signs - 24 hr 12/23/20 06:00 12/23/20 15:00 12/23/20 18:00 Temperature 98.2 F 98.4 F 98.4 F Pulse Rate 73 77 74 Respiratory Rate 20 32 H 28 H Blood Pressure 110/66 117/67 101/61 Pulse Oximetry 95 96 95 Body Mass Index 0.2 Labs Results: 12/09/20 10:06 12/23/20 07:58 Labs: Laboratory Results - last 48 hr 12/22/20 12/22/20 12/22/20 08:13 08:13 08:13 Sodium 127 L Potassium 5.0 D Chloride 93 L Carbon Dioxide 28 Anion Gap 11 L BUN 17 H Creatinine 0.97 Estim Creat Clear Calc 48.6 Estimated GFR > 60 Fasting Glucose 100 H Osmolality Uric Acid Calcium 8.7 D Total Bilirubin 0.4 0.4 Direct Bilirubin 0.2 AST 44 H D 45 H ALT 42 H 42 H Alkaline Phosphatase 115 D 114 Total Protein 6.5 6.5 Albumin 3.2 L 3.2 L Vitamin B12 864 Urine Osmolality Ur Random Sodium 12/22/20 12/22/20 12/22/20 08:13 21:41 21:41 Sodium Potassium Chloride Carbon Dioxide Anion Gap BUN Creatinine Estim Creat Clear Calc Estimated GFR Fasting Glucose Osmolality 274 L Uric Acid Calcium Total Bilirubin Direct Bilirubin AST ALT Alkaline Phosphatase Total Protein Albumin Vitamin B12 Urine Osmolality 540 Ur Random Sodium 65.0 12/23/20 12/23/20 12/23/20 07:58 07:58 13:14 Sodium 130 L Potassium 5.2 H Chloride 94 L Carbon Dioxide 29 Anion Gap 12 BUN Creatinine Estim Creat Clear Calc Estimated GFR Fasting Glucose Osmolality Uric Acid 2.3 L Calcium Total Bilirubin Direct Bilirubin AST ALT Alkaline Phosphatase Total Protein Albumin Vitamin B12 Urine Osmolality Ur Random Sodium 79.0 Imaging Radiology Impressions: ITS Impressions Chest X-Ray 12/05/20 18:58 IMPRESSION: Severe chronic interstitial lung disease stable when compared to the prior study. There are probably new small trace pleural effusions present Modified Barium Swallow 12/10/20 14:00 IMPRESSION: 1. No evidence of aspiration. Transient penetration with thin and nectar consistency. 2. Abnormalities of the oral and pharyngeal phase of swallowing as described above, with moderate vallecular retention. 3. Please see speech pathology report for specific recommendations and further information. Chest X-Ray 12/21/20 11:40 IMPRESSION: Scattered pulmonary opacities superimposed upon interstitial fibrotic changes similar to recent exams. Chest X-Ray 12/23/20 16:02 IMPRESSION: Improving bilateral airspace opacities. Chronic interstitial lung disease. Medications Medications Current Medications Generic Name Dose Route Start Last Admin Trade Name Freq PRN Reason Stop Dose Admin Acetaminophen 650 mg 12/04/20 15:37 12/23/20 16:35 Acetaminophen 325 Mg Tablet PO 650 mg Q6H PRN Administration Headache/Pain Mild Scale (1-3) Al Hydroxide/Mg Hydroxide 30 ml 12/04/20 15:37 Magnesium Hydrox/Alum Hydrox 30 Ml Oral.Susp PO Q6H PRN Heartburn/Nausea Benzonatate 100 mg 12/21/20 21:00 12/23/20 19:59 Benzonatate 100 Mg Capsule PO 100 mg TID DOMINICK Administration Brexpiprazole 1.5 mg 12/17/20 17:00 12/23/20 16:34 Brexpiprazole 1 Mg Tablet PO 1.5 mg DAILY@1700 DOMINICK Administration Budesonide 2 puff 12/06/20 10:21 12/23/20 19:58 Budesonide 180 Mcg Aer.Pow.Ba INHALE 2 puff RBID DOMINICK Administration Clotrimazole 1 appl 12/14/20 21:00 12/23/20 19:57 Clotrimazole 1 % Cream 15 Gm Tube TOPICAL 1 appl BID DOMINICK Administration Protocol Docusate Sodium 100 mg 12/04/20 15:34 Docusate Sodium 100 Mg Capsule PO DAILY PRN Constipation Famotidine 20 mg 12/05/20 09:00 12/23/20 08:39 Famotidine 20 Mg Tablet PO 20 mg DAILY DOMINICK Administration Guaifenesin/Dextromethorphan 5 ml 12/04/20 15:34 12/13/20 06:32 Guaifenesin Dm 100/10/5 Ml 5 Ml Syrup PO 5 ml Q6H PRN Administration cough Hydroxyzine HCl 25 mg 12/04/20 15:37 12/22/20 21:27 Hydroxyzine Hcl 25 Mg Tablet PO 25 mg BEDTIME PRN Administration Anxiety Hydroxyzine HCl 25 mg 12/15/20 18:14 12/22/20 02:25 Hydroxyzine Hcl 25 Mg Tablet PO 25 mg Q6H PRN Administration Anxiety Lidocaine 2 patch 12/21/20 17:15 12/23/20 08:39 Lidocaine 4 % Patch Adh..Patch TRANSDERMA 2 patch DAILY DOMINICK Administration Protocol Loperamide HCl 2 mg 12/08/20 16:31 12/12/20 02:22 Loperamide Hcl 2 Mg Capsule PO 2 mg Q4H PRN Administration Diarrhea Lorazepam 0.5 mg 12/20/20 12:18 12/23/20 14:54 Lorazepam 0.5 Mg Tablet PO 0.5 mg Q4H PRN Administration Anxiety Lorazepam 0.5 mg 12/20/20 21:00 12/23/20 19:58 Lorazepam 0.5 Mg Tablet PO 0.5 mg BEDTIME DOMINICK Administration Magnesium Hydroxide 30 ml 12/04/20 15:37 Milk Of Magnesia 30 Ml Oral.Susp PO DAILY PRN Constipation Non-Formulary Medication 1 each 12/04/20 21:00 12/23/20 19:58 Patient Own Medication PO 1 each BID DOMINICK Administration Omeprazole 20 mg 12/09/20 16:30 12/23/20 16:37 Omeprazole 20 Mg Capsule.Dr PO 20 mg BID@0630,8680 DOMINICK Administration Ondansetron HCl 4 mg 12/04/20 15:34 Ondansetron Odt 4 Mg Tab.Rapdis TRANSLINGU Q8H PRN nausea/vomiting Ondansetron HCl 4 mg 12/04/20 15:34 Ondansetron Hcl 4 Mg/2 Ml Vial IVPUSH Q8H PRN Nausea and Vomiting Quetiapine Fumarate 12.5 mg 12/17/20 21:00 12/23/20 19:59 Quetiapine Fumarate 25 Mg Tablet PO 12.5 mg BEDTIME DOMINICK Administration Allergies Allergies Allergy/AdvReac Type Severity Reaction Status Date / Time Sulfa (Sulfonamide Allergy Unknown UNKNOWN Verified 12/01/20 09:47 Antibiotics) [SULFA (SULFONAMIDE ANTIBIOTICS)] zoster vaccine live Allergy Hives Verified 12/01/20 09:47 Assessment & Plan Greater than 50% of the session was spent on counseling and/or coordination of care Assessment & Plan Assessment & Plan (1) Swallowing dysfunction: Assessment and Plan: see diet aspiration precautions gi consult (2) Pulmonary fibrosis: Assessment and Plan: monitor o2 replacement as needed (3) Bipolar I disorder with depression, severe: Assessment and Plan: prozac stopped secondary to hyponatremia restart ect when possible (4) CKD (chronic kidney disease) stage 3, GFR 30-59 ml/min: Assessment and Plan: hyponatrmia nephrology consult Greater than 50% of the session was spent on counseling and/or coordination of care Reason for contiued inpatient stay Substantial Risk for: inability to function and rapid decompensation Reason for contiued inpatient stay Substantial Risk for: inability to function and rapid decompensation
[2020-12-24 06:33] VITALS: BP 112/75; PULSE 77; RESP 22; TEMP 36.9; O2SAT 94
[2020-12-24] MEDS: Famotidine 20 MG TABLET PO (09:40)
[2020-12-24] MEDS: Budesonide 180 MCG AER.POW.BA 2 PUFF INHALE ×2 (09:40→19:55)
[2020-12-24] MEDS: Omeprazole 20 MG CAPSULE.DR PO ×2 (09:40→16:03)
[2020-12-24] MEDS: Clotrimazole 1 % Cream 15 GM TUBE 1 APPL TOPICAL ×2 (09:42→19:56)
[2020-12-24] MEDS: Lidocaine 4 % Patch ADH..PATCH 2 PATCH TRANSDERMA (09:52)
[2020-12-24] MEDS: Benzonatate 100 MG CAPSULE PO ×3 (09:52→19:59)
--- NOTE | 2020-12-24 10:56 | CONS_ITS ---
DATE OF SERVICE: 12/24/2020 REFERRING PHYSICIAN: Gabriel Marie MD REASON FOR CONSULTATION: Dysphagia. HISTORY OF PRESENT ILLNESS: The patient is a pleasant 80-year-old man, seen today in consultation at the request of Dr. Marie for dysphagia. He was admitted to the inpatient psychiatric unit on December 06 for treatment of depression. He had been admitted medically for hypoxia after an ECT and he was treated for pneumonia and discharged. As part of his evaluation, he underwent a modified barium swallow because of complaints of dysphagia, this is reviewed. He was also seen in consultation by speech pathology and their recommendations are reviewed. He does have a history of gastroesophageal reflux disease, treated as an outpatient with Pepcid and is currently on omeprazole 20 mg b.i.d. as an inpatient. He reports no heartburn. He has had no vomiting. He does occasionally cough when he eats. PAST MEDICAL HISTORY: 1. Depression. 2. Pulmonary fibrosis. 3. Chronic kidney disease. 4. Arthritis. 5. Anxiety/depression. 6. Hyponatremia. 7. Bladder cancer. CURRENT MEDICATIONS: Current medication list is reviewed in the chart. ALLERGIES: MULTIPLE ALLERGIES ARE REVIEWED. FAMILY HISTORY: This is reviewed with the patient and is noncontributory. SOCIAL HISTORY: There is no current tobacco, alcohol, or substance abuse. REVIEW OF SYSTEMS: SKIN: No pruritus. HEENT: Negative. CARDIOPULMONARY: No shortness of breath or chest pain. GASTROINTESTINAL: As above. GENITOURINARY: Negative. NEUROPSYCHIATRIC: Positive for depression. PHYSICAL EXAMINATION: GENERAL: Shows a pleasant male, who ambulates with a walker. VITAL SIGNS: Reviewed in the electronic medical record and are stable. SKIN: Anicteric. HEENT: Shows no scleral icterus. NECK: Without lymphadenopathy or thyromegaly. LUNGS: Decreased breath sounds bilaterally. HEART: Regular rate and rhythm. S1, S2. No murmur. ABDOMEN: Soft without focal masses or tenderness. Bowel sounds are present. No organomegaly is noted. EXTREMITIES: Without edema. LABORATORY DATA: Shows a white blood cell count of 12.5, hematocrit 32.7. Chemistries show sodium of 130. Review of his modified barium swallow and speech pathology notes indicate that his dysphagia appears consistent with oropharyngeal dysphagia and he has refused speech pathology treatment. IMPRESSION: Appears to have oropharyngeal dysphagia. I discussed with him the importance of following through with speech pathology on his followup treatments. I would recommend continuing a proton pump inhibitor for his reflux. I do not think endoscopy would be useful to him at this time. Thanks for asking me to see him. I will follow him in the hospital as needed. MD KRISTI Woods/LOGAN / [phone]
--- NOTE | 2020-12-24 10:58 | P.PNIM_ITS ---
Subjective Subjective Date of Service: 12/24/20 Interval History: reports eatin gmore pureed and chocolate ensure, improved swallowing today, able to ambulate Cardiovascular Cardiovascular: Reports no additional cardiovascular complaints Gastrointestinal Gastrointestinal: Reports no additional gastrointestinal complaints Physical Exam Vital Signs: Vital Signs: Last Vital Signs Temp 98.5 F 12/24/20 06:33 Pulse 77 12/24/20 06:33 Resp 22 H 12/24/20 06:33 BP 112/75 12/24/20 06:33 Pulse Ox 94 12/24/20 06:33 Body Mass Index 0.2 General: AO X 3, no acute distress Resp: CTA bilateral CVS: S1,S2,RRR GI: soft, non tender, non distended Neuro: motor grossly intact Psych: appropriate affect Objective Data Current Medications Generic Name Dose Route Start Last Admin Trade Name Freq PRN Reason Stop Dose Admin Acetaminophen 650 mg 12/04/20 15:37 12/23/20 16:35 Acetaminophen 325 Mg Tablet PO 650 mg Q6H PRN Administration Headache/Pain Mild Scale (1-3) Al Hydroxide/Mg Hydroxide 30 ml 12/04/20 15:37 Magnesium Hydrox/Alum Hydrox 30 Ml Oral.Susp PO Q6H PRN Heartburn/Nausea Benzonatate 100 mg 12/21/20 21:00 12/24/20 09:52 Benzonatate 100 Mg Capsule PO 100 mg TID DOMINICK Administration Brexpiprazole 1.5 mg 12/17/20 17:00 12/23/20 16:34 Brexpiprazole 1 Mg Tablet PO 1.5 mg DAILY@1700 DOMINICK Administration Budesonide 2 puff 12/06/20 10:21 12/24/20 09:40 Budesonide 180 Mcg Aer.Pow.Ba INHALE 2 puff RBID DOMINICK Administration Clotrimazole 1 appl 12/14/20 21:00 12/24/20 09:42 Clotrimazole 1 % Cream 15 Gm Tube TOPICAL 1 appl BID DOMINICK Administration Protocol Docusate Sodium 100 mg 12/04/20 15:34 Docusate Sodium 100 Mg Capsule PO DAILY PRN Constipation Famotidine 20 mg 12/05/20 09:00 12/24/20 09:40 Famotidine 20 Mg Tablet PO 20 mg DAILY DOMINICK Administration Guaifenesin/Dextromethorphan 5 ml 12/04/20 15:34 12/13/20 06:32 Guaifenesin Dm 100/10/5 Ml 5 Ml Syrup PO 5 ml Q6H PRN Administration cough Hydroxyzine HCl 25 mg 12/04/20 15:37 12/22/20 21:27 Hydroxyzine Hcl 25 Mg Tablet PO 25 mg BEDTIME PRN Administration Anxiety Hydroxyzine HCl 25 mg 12/15/20 18:14 12/22/20 02:25 Hydroxyzine Hcl 25 Mg Tablet PO 25 mg Q6H PRN Administration Anxiety Lidocaine 2 patch 12/21/20 17:15 12/24/20 09:52 Lidocaine 4 % Patch Adh..Patch TRANSDERMA 2 patch DAILY DOMINICK Administration Protocol Loperamide HCl 2 mg 12/08/20 16:31 12/12/20 02:22 Loperamide Hcl 2 Mg Capsule PO 2 mg Q4H PRN Administration Diarrhea Lorazepam 0.5 mg 12/20/20 12:18 12/23/20 14:54 Lorazepam 0.5 Mg Tablet PO 0.5 mg Q4H PRN Administration Anxiety Lorazepam 0.5 mg 12/20/20 21:00 12/23/20 19:58 Lorazepam 0.5 Mg Tablet PO 0.5 mg BEDTIME DOMINICK Administration Magnesium Hydroxide 30 ml 12/04/20 15:37 Milk Of Magnesia 30 Ml Oral.Susp PO DAILY PRN Constipation Non-Formulary Medication 1 each 12/04/20 21:00 12/24/20 09:42 Patient Own Medication PO 1 each BID DOMINICK Administration Omeprazole 20 mg 12/09/20 16:30 12/24/20 09:40 Omeprazole 20 Mg Capsule.Dr PO 20 mg BID@0630,1630 DOMINICK Administration Ondansetron HCl 4 mg 12/04/20 15:34 Ondansetron Odt 4 Mg Tab.Rapdis TRANSLINGU Q8H PRN nausea/vomiting Ondansetron HCl 4 mg 12/04/20 15:34 Ondansetron Hcl 4 Mg/2 Ml Vial IVPUSH Q8H PRN Nausea and Vomiting Quetiapine Fumarate 12.5 mg 12/17/20 21:00 12/23/20 19:59 Quetiapine Fumarate 25 Mg Tablet PO 12.5 mg BEDTIME DOMINICK Administration Labs CBC & Chem 7: 12/09/20 10:06 12/23/20 07:58 Assessment and Plan (1) Pulmonary fibrosis: Status: Acute (2) Swallowing dysfunction: Status: Acute Assessment and Plan: 80M with pulmonary fibrosis and dysphagia dysphagia MBSS done 12/10/20 gi appreciated, likely oropharyngeal, would not benefit from EGD at this time continue [employer], nutrition monitoring pureed and nectar thick with nutritional supplements improving intake
[2020-12-24 11:32] LABS: Anion Gap 10 (12-20); Carbon Dioxide 29 mmol/L (22-29); Chloride 93 mmol/L (96-108); Potassium 4.6 mmol/L (3.3-5.1); Sodium 127 mmol/L (135-145)
--- NOTE | 2020-12-24 13:18 | MHC.CLN ---
RE: CONSULT HT 64 WT 122# IBW 136#+/-10% PT IS 90% IBW INDICATES ADEQUATE WT FOR HT DIET RX: PUREED WITH NT LIQ-APPROPRIATE NSG REPORTS POOR PO INTAKE PT WITH MANY BEVERAGES AT BEDSIDE PT REPORTED DECREASED APPETITE BUT LIKES DRINKING ADELE ENSURE RECOMMEND D/C ENSURE CLEAR TID RECOMMEND RE-STARTING 8OZ ENSURE TID SUPPLEMENT TO PROVIDE 1020KCALS, 60G PROTEIN MONITOR PO INTAKE AND WEIGHT CLOSELY
[2020-12-24] MEDS: Acetaminophen 325 MG TABLET 650 MG PO (13:56)
[2020-12-24] MEDS: Brexpiprazole 1 MG TABLET 1.5 MG PO (16:02)
--- NOTE | 2020-12-24 17:03 | HO.PSYCHPN ---
Subjective Subjective Date of Service: 12/24/20 Reason For Visit: Severe depression Interim History: Pt lying in bed with O2 nasal cannula an 1:1 sitter present pt reports he is still depressed. He says he does not really want to continue with ECt tomorrow but he supposes he should and remains in agreement to do so. He says he has not noticed much difference since starting ECT but will continue to see if it can prove effective. Pt has no other complaints. Medication Compliance: Yes Attending Groups: No Mental Status Exam Mental Status Exam Patient Appearance: Well Grooomed Patient Orientation: Person, Place, Time and Situation Level of Consciousness: Awake and Appropriate Patient Behavior: Appropriate and Cooperative Mood Description: Depressed Affect Description: Blunted Ability to Follow Directions: Fair Speech Pattern: Clear and Appropriate Thought Process: Intact Thought Content: positive for Intact Judgement: Fair Diagnostics Vital Signs (24Hr): Vital Signs - 24 hr 12/23/20 18:00 12/24/20 06:33 Temperature 98.4 F 98.5 F Pulse Rate 74 77 Respiratory Rate 28 H 22 H Blood Pressure 101/61 112/75 Pulse Oximetry 95 94 Body Mass Index 0.2 Labs Results: 12/09/20 10:06 12/24/20 11:02 Labs: Laboratory Results - last 48 hr 12/22/20 12/22/20 12/23/20 21:41 21:41 07:58 Sodium 130 L Potassium 5.2 H Chloride 94 L Carbon Dioxide 29 Anion Gap 12 Uric Acid Urine Osmolality 540 Ur Random Sodium 65.0 12/23/20 12/23/20 12/24/20 07:58 13:14 11:02 Sodium 127 L Potassium 4.6 Chloride 93 L Carbon Dioxide 29 Anion Gap 10 L Uric Acid 2.3 L Urine Osmolality Ur Random Sodium 79.0 Imaging Radiology Impressions: ITS Impressions Chest X-Ray 12/05/20 18:58 IMPRESSION: Severe chronic interstitial lung disease stable when compared to the prior study. There are probably new small trace pleural effusions present Modified Barium Swallow 12/10/20 14:00 IMPRESSION: 1. No evidence of aspiration. Transient penetration with thin and nectar consistency. 2. Abnormalities of the oral and pharyngeal phase of swallowing as described above, with moderate vallecular retention. 3. Please see speech pathology report for specific recommendations and further information. Chest X-Ray 12/21/20 11:40 IMPRESSION: Scattered pulmonary opacities superimposed upon interstitial fibrotic changes similar to recent exams. Chest X-Ray 12/23/20 16:02 IMPRESSION: Improving bilateral airspace opacities. Chronic interstitial lung disease. Medications Medications Current Medications Generic Name Dose Route Start Last Admin Trade Name Freq PRN Reason Stop Dose Admin Acetaminophen 650 mg 12/04/20 15:37 12/24/20 13:56 Acetaminophen 325 Mg Tablet PO 650 mg Q6H PRN Administration Headache/Pain Mild Scale (1-3) Al Hydroxide/Mg Hydroxide 30 ml 12/04/20 15:37 Magnesium Hydrox/Alum Hydrox 30 Ml Oral.Susp PO Q6H PRN Heartburn/Nausea Benzonatate 100 mg 12/21/20 21:00 12/24/20 13:56 Benzonatate 100 Mg Capsule PO 100 mg TID DOMINICK Administration Brexpiprazole 1.5 mg 12/17/20 17:00 12/24/20 16:02 Brexpiprazole 1 Mg Tablet PO 1.5 mg DAILY@1700 DOMINICK Administration Budesonide 2 puff 12/06/20 10:21 12/24/20 09:40 Budesonide 180 Mcg Aer.Pow.Ba INHALE 2 puff RBID DOMINICK Administration Clotrimazole 1 appl 12/14/20 21:00 12/24/20 09:42 Clotrimazole 1 % Cream 15 Gm Tube TOPICAL 1 appl BID DOMINICK Administration Protocol Docusate Sodium 100 mg 12/04/20 15:34 Docusate Sodium 100 Mg Capsule PO DAILY PRN Constipation Famotidine 20 mg 12/05/20 09:00 12/24/20 09:40 Famotidine 20 Mg Tablet PO 20 mg DAILY DOMINICK Administration Guaifenesin/Dextromethorphan 5 ml 12/04/20 15:34 12/13/20 06:32 Guaifenesin Dm 100/10/5 Ml 5 Ml Syrup PO 5 ml Q6H PRN Administration cough Hydroxyzine HCl 25 mg 12/04/20 15:37 12/22/20 21:27 Hydroxyzine Hcl 25 Mg Tablet PO 25 mg BEDTIME PRN Administration Anxiety Hydroxyzine HCl 25 mg 12/15/20 18:14 12/22/20 02:25 Hydroxyzine Hcl 25 Mg Tablet PO 25 mg Q6H PRN Administration Anxiety Lidocaine 2 patch 12/21/20 17:15 12/24/20 09:52 Lidocaine 4 % Patch Adh..Patch TRANSDERMA 2 patch DAILY DOMINICK Administration Protocol Loperamide HCl 2 mg 12/08/20 16:31 12/12/20 02:22 Loperamide Hcl 2 Mg Capsule PO 2 mg Q4H PRN Administration Diarrhea Lorazepam 0.5 mg 12/20/20 12:18 12/23/20 14:54 Lorazepam 0.5 Mg Tablet PO 0.5 mg Q4H PRN Administration Anxiety Lorazepam 0.5 mg 12/20/20 21:00 12/23/20 19:58 Lorazepam 0.5 Mg Tablet PO 0.5 mg BEDTIME DOMINICK Administration Magnesium Hydroxide 30 ml 12/04/20 15:37 Milk Of Magnesia 30 Ml Oral.Susp PO DAILY PRN Constipation Non-Formulary Medication 1 each 12/04/20 21:00 12/24/20 09:42 Patient Own Medication PO 1 each BID DOMINICK Administration Omeprazole 20 mg 12/09/20 16:30 12/24/20 16:03 Omeprazole 20 Mg Capsule. PO 20 mg BID@0630,1630 DOMINICK Administration Ondansetron HCl 4 mg 12/04/20 15:34 Ondansetron Odt 4 Mg Tab.Rapdis TRANSLINGU Q8H PRN nausea/vomiting Ondansetron HCl 4 mg 12/04/20 15:34 Ondansetron Hcl 4 Mg/2 Ml Vial IVPUSH Q8H PRN Nausea and Vomiting Quetiapine Fumarate 12.5 mg 12/17/20 21:00 12/23/20 19:59 Quetiapine Fumarate 25 Mg Tablet PO 12.5 mg BEDTIME DOMINICK Administration Allergies Allergies Allergy/AdvReac Type Severity Reaction Status Date / Time Sulfa (Sulfonamide Allergy Unknown UNKNOWN Verified 12/01/20 09:47 Antibiotics) [SULFA (SULFONAMIDE ANTIBIOTICS)] zoster vaccine live Allergy Hives Verified 12/01/20 09:47 Assessment & Plan Impression: depression; currently being treated with ECT plan: continue current tx plan pt scheduled for ECT on 12/25/20 Greater than 50% of the session was spent on counseling and/or coordination of care Reason for contiued inpatient stay Substantial Risk for: inability to function
[2020-12-24 18:00] VITALS: BP 117/57; PULSE 83; TEMP 36.6; O2SAT 94
[2020-12-24] MEDS: Urea 15 GM POWDER PO (18:24)
[2020-12-24] MEDS: Sodium Chloride Tab 1 GM TABLET PO (19:54)
[2020-12-24] MEDS: QUEtiapine Fumarate 25 MG TABLET 12.5 MG PO (19:58)
[2020-12-24] MEDS: LORazepam 0.5 MG TABLET PO (19:58)
[2020-12-24 20:59] VITALS: BP 110/60; PULSE 74; TEMP 37; O2SAT 94
[2020-12-25] VITALS (9 sets, daily range): BP systolic 109–161; BP diastolic 55–98; PULSE 72–86; RESP 16–26; TEMP 36.1–37.1; O2SAT 94–99
[2020-12-25] MEDS: Omeprazole 20 MG CAPSULE.DR PO ×2 (06:42→16:12)
--- NOTE | 2020-12-25 08:48 | MHC.SHP ---
Pre-Procedural Eval Section A The patient is an INPATIENT: Yes Changes since office visit: No Cold of Flu in the past 2 weeks, No New Medical Problems, No Changes in Medication and No Patient answered all questions The History & Physical has been completed within 30 days and I have reviewed it.: Yes Section B Chief Complaint: Severe depression Allergies: Allergies Allergy/AdvReac Type Severity Reaction Status Date / Time Sulfa (Sulfonamide Allergy Unknown UNKNOWN Verified 12/01/20 09:47 Antibiotics) [SULFA (SULFONAMIDE ANTIBIOTICS)] zoster vaccine live Allergy Hives Verified 12/01/20 09:47 Plan I have reviewed the history and physical and performed a pertinent physical examination on my patient. No changes have occurred unless specified.
[2020-12-25] MEDS: fentaNYL citrate/PF 100 MCG/2 ML VIAL 50 MCG IVPUSH (09:00)
--- NOTE | 2020-12-25 09:11 | P.CONAN_ITS ---
[facility] Active Problems Active Problems: All Active Problems (Updated 12/09/20 @ 22:29 by Blane Chowdhury MD) Swallowing dysfunction (Acute) Increased oxygen demand (Acute) Pneumonia (Acute) Pulmonary fibrosis (Acute) Bipolar I disorder with depression, severe (Acute) CKD (chronic kidney disease) stage 3, GFR 30-59 ml/min (Acute) Bipolar disorder (Acute) Past Medical History Medical History Anemia Anxiety Bronchiectasis Cerebrovascular disease Chronic hyponatremia CKD (chronic kidney disease) stage 3, GFR 30-59 ml/min Degenerative arthritis Depression History of electroconvulsive therapy Hx of bladder cancer Hydrocele Pulmonary fibrosis Pulmonary fibrosis Family History Family History Father Colon cancer Surgical History Surgical History History of bladder surgery Social History Social History Household Members: Spouse Housing: House Do you presently have visiting nurse or other home services: Yes Smoking Status: Never smoker Second Hand Smoke Exposure: No Use of substances other than those prescribed or required for medical reasons: Yes Substance Use Type: Marijuana Substance Use Frequency: Daily Currently Displaying Signs/Symptoms of Drug Intoxication Withdrawal: No Any prior treatment program specific to substance use: No Have you been hit, kicked, punched, or otherwise hurt by someone within the past year? If so, by whom?: No Do you feel safe in your current relationship?: Yes Is there a partner from a previous relationship who is making you feel unsafe now?: No Are you made to feel afraid or neglected: No Advance Directives: No Advance Directives Information Provided: No Advance Directives on File: No Advance Directives Date on File: 11/27/20 Do you have thoughts of harming others: None Do you have a plan to hurt others: No Plan Recently lost weight without trying: No service: No Current occupational status: retired Sexual orientation: Straight/Heterosexual Meds Allergies Allergy/AdvReac Type Severity Reaction Status Date / Time Sulfa (Sulfonamide Allergy Unknown UNKNOWN Verified 12/01/20 09:47 Antibiotics) [SULFA (SULFONAMIDE ANTIBIOTICS)] zoster vaccine live Allergy Hives Verified 12/01/20 09:47 Active Medications: Current Medications Generic Name Dose Route Start Last Admin Trade Name Freq PRN Reason Stop Dose Admin Acetaminophen 650 mg 12/04/20 15:37 12/24/20 13:56 Acetaminophen 325 Mg Tablet PO 650 mg Q6H PRN Administration Headache/Pain Mild Scale (1-3) Al Hydroxide/Mg Hydroxide 30 ml 12/04/20 15:37 Magnesium Hydrox/Alum Hydrox 30 Ml Oral.Susp PO Q6H PRN Heartburn/Nausea Benzonatate 100 mg 12/21/20 21:00 12/24/20 19:59 Benzonatate 100 Mg Capsule PO 100 mg TID DOMINICK Administration Brexpiprazole 1.5 mg 12/17/20 17:00 12/24/20 16:02 Brexpiprazole 1 Mg Tablet PO 1.5 mg DAILY@1700 DOMINICK Administration Budesonide 2 puff 12/06/20 10:21 12/24/20 19:55 Budesonide 180 Mcg Aer.Pow.Ba INHALE 2 puff RBID DOMINICK Administration Clotrimazole 1 appl 12/14/20 21:00 12/24/20 19:56 Clotrimazole 1 % Cream 15 Gm Tube TOPICAL 1 appl BID DOMINICK Administration Protocol Docusate Sodium 100 mg 12/04/20 15:34 Docusate Sodium 100 Mg Capsule PO DAILY PRN Constipation Famotidine 20 mg 12/05/20 09:00 12/24/20 09:40 Famotidine 20 Mg Tablet PO 20 mg DAILY DOMINICK Administration Fentanyl 50 mcg 12/25/20 08:52 12/25/20 09:00 Fentanyl Citrate/Pf 100 Mcg/2 Ml Vial IVPUSH 50 mcg Q5M PRN Administration Pain, Severe (Pain Scale 7-10) Guaifenesin/Dextromethorphan 5 ml 12/04/20 15:34 12/13/20 06:32 Guaifenesin Dm 100/10/5 Ml 5 Ml Syrup PO 5 ml Q6H PRN Administration cough Hydroxyzine HCl 25 mg 12/04/20 15:37 12/22/20 21:27 Hydroxyzine Hcl 25 Mg Tablet PO 25 mg BEDTIME PRN Administration Anxiety Hydroxyzine HCl 25 mg 12/15/20 18:14 12/22/20 02:25 Hydroxyzine Hcl 25 Mg Tablet PO 25 mg Q6H PRN Administration Anxiety Lidocaine 2 patch 12/21/20 17:15 12/24/20 09:52 Lidocaine 4 % Patch Adh..Patch TRANSDERMA 2 patch DAILY DOMINICK Administration Protocol Loperamide HCl 2 mg 12/08/20 16:31 12/12/20 02:22 Loperamide Hcl 2 Mg Capsule PO 2 mg Q4H PRN Administration Diarrhea Lorazepam 0.5 mg 12/20/20 12:18 12/23/20 14:54 Lorazepam 0.5 Mg Tablet PO 0.5 mg Q4H PRN Administration Anxiety Lorazepam 0.5 mg 12/20/20 21:00 12/24/20 19:58 Lorazepam 0.5 Mg Tablet PO 0.5 mg BEDTIME DOMINICK Administration Magnesium Hydroxide 30 ml 12/04/20 15:37 Milk Of Magnesia 30 Ml Oral.Susp PO DAILY PRN Constipation Non-Formulary Medication 1 each 12/04/20 21:00 12/24/20 19:55 Patient Own Medication PO 1 each BID DOMINICK Administration Omeprazole 20 mg 12/09/20 16:30 12/25/20 06:42 Omeprazole 20 Mg Capsule. PO 20 mg BID@0630,1630 DOMINICK Administration Ondansetron HCl 4 mg 12/04/20 15:34 Ondansetron Odt 4 Mg Tab.Rapdis TRANSLINGU Q8H PRN nausea/vomiting Ondansetron HCl 4 mg 12/04/20 15:34 Ondansetron Hcl 4 Mg/2 Ml Vial IVPUSH Q8H PRN Nausea and Vomiting Quetiapine Fumarate 12.5 mg 12/17/20 21:00 12/24/20 19:58 Quetiapine Fumarate 25 Mg Tablet PO 12.5 mg BEDTIME DOMINICK Administration Sodium Chloride 1 gm 12/24/20 21:00 12/24/20 19:54 Sodium Chloride Tab 1 Gm Tablet PO 1 gm TID DOMINICK Administration Home Medications Medication Instructions Recorded Confirmed Last Taken Type Latuda 1 tab PO DAILY 11/25/20 12/01/20 11/25/20 History Ofev 150 mg PO BID 11/25/20 12/01/20 11/25/20 History docusate sodium [Stool Softener] 1 cap PO BID PRN 11/25/20 12/01/20 11/25/20 History lorazepam 1 tab PO BID PRN 11/25/20 12/01/20 11/25/20 History mirtazapine 1 tab PO BEDTIME 11/25/20 12/01/20 11/24/20 History ondansetron 1 tab PO Q8H PRN 11/25/20 12/01/20 Unknown History quetiapine 37.5 mg PO BEDTIME 11/25/20 12/01/20 11/24/20 History Exam Exam Date and Time: December 25, 2020 0911 Height,Weight and Vital Signs: Height 50 ft 4.8 in Weight 55.7 kg Last Vital Signs Temp 97.3 F 12/25/20 08:52 Pulse 79 12/25/20 08:52 Resp 22 H 12/25/20 08:52 BP 132/67 12/25/20 08:52 Pulse Ox 96 12/25/20 08:52 Pertinent Lab Results Pertinent Lab Results: Laboratory Tests 12/06/20 12/06/20 12/06/20 08:39 08:39 08:39 WBC 12.6 H RBC 3.39 L Hgb 10.9 L Hct 31.7 L MCV 93.5 MCH 32.2 MCHC 34.4 RDW 14.3 Plt Count 235 MPV 10.6 Immature Gran % (Auto) Neut % (Auto) Lymph % (Auto) Calloway % (Auto) Eos % (Auto) Baso % (Auto) Lymph # (Auto) Calloway # (Auto) Eos # (Auto) Baso # (Auto) Abs Immat Gran (auto) Absolute Neuts (auto) Absolute Nucleated RBC 0.000 Nucleated RBC % (auto) 0.0 Sodium 136 Potassium 4.1 Chloride 100 Carbon Dioxide 26 Anion Gap 14 BUN 28 H Creatinine 1.24 Estim Creat Clear Calc TNP Estimated GFR 56 Random Glucose 92 Fasting Glucose Osmolality Uric Acid Calcium 8.2 L Total Bilirubin Direct Bilirubin AST ALT Alkaline Phosphatase B-Natriuretic Peptide 133 H Total Protein Albumin Vitamin B12 Folate TSH 3rd Generation Cortisol Urine Osmolality Ur Random Sodium 12/09/20 12/09/20 12/18/20 10:06 10:06 08:12 WBC 12.5 H RBC 3.45 L Hgb 10.8 L Hct 32.7 L MCV 94.8 MCH 31.3 MCHC 33.0 RDW 14.7 Plt Count 327 D MPV 10.5 Immature Gran % (Auto) 0.6 H Neut % (Auto) 65.4 Lymph % (Auto) 25.1 Calloway % (Auto) 7.7 Eos % (Auto) 1.2 Baso % (Auto) 0.0 Lymph # (Auto) 3.2 Calloway # (Auto) 1.0 Eos # (Auto) 0.2 Baso # (Auto) 0.0 Abs Immat Gran (auto) 0.07 H Absolute Neuts (auto) 8.2 Absolute Nucleated RBC 0.000 Nucleated RBC % (auto) 0.0 Sodium Potassium Chloride Carbon Dioxide Anion Gap BUN Creatinine Estim Creat Clear Calc Estimated GFR Random Glucose Fasting Glucose Osmolality Uric Acid Calcium Total Bilirubin Direct Bilirubin AST ALT Alkaline Phosphatase B-Natriuretic Peptide 58 Total Protein Albumin Vitamin B12 Folate TSH 3rd Generation 1.55 Cortisol Urine Osmolality Ur Random Sodium 12/18/20 12/18/20 12/22/20 08:12 08:12 08:13 WBC RBC Hgb Hct MCV MCH MCHC RDW Plt Count MPV Immature Gran % (Auto) Neut % (Auto) Lymph % (Auto) Calloway % (Auto) Eos % (Auto) Baso % (Auto) Lymph # (Auto) Calloway # (Auto) Eos # (Auto) Baso # (Auto) Abs Immat Gran (auto) Absolute Neuts (auto) Absolute Nucleated RBC Nucleated RBC % (auto) Sodium Potassium Chloride Carbon Dioxide Anion Gap BUN Creatinine Estim Creat Clear Calc Estimated GFR Random Glucose Fasting Glucose Osmolality Uric Acid Calcium Total Bilirubin 0.4 Direct Bilirubin 0.2 AST 44 H D ALT 42 H Alkaline Phosphatase 115 D B-Natriuretic Peptide Total Protein 6.5 Albumin 3.2 L Vitamin B12 1057 H Folate 15.6 TSH 3rd Generation Cortisol 13.1 Urine Osmolality Ur Random Sodium 12/22/20 12/22/20 12/22/20 08:13 08:13 08:13 WBC RBC Hgb Hct MCV MCH MCHC RDW Plt Count MPV Immature Gran % (Auto) Neut % (Auto) Lymph % (Auto) Calloway % (Auto) Eos % (Auto) Baso % (Auto) Lymph # (Auto) Calloway # (Auto) Eos # (Auto) Baso # (Auto) Abs Immat Gran (auto) Absolute Neuts (auto) Absolute Nucleated RBC Nucleated RBC % (auto) Sodium 127 L Potassium 5.0 D Chloride 93 L Carbon Dioxide 28 Anion Gap 11 L BUN 17 H Creatinine 0.97 Estim Creat Clear Calc 48.6 Estimated GFR > 60 Random Glucose Fasting Glucose 100 H Osmolality 274 L Uric Acid Calcium 8.7 D Total Bilirubin 0.4 Direct Bilirubin AST 45 H ALT 42 H Alkaline Phosphatase 114 B-Natriuretic Peptide Total Protein 6.5 Albumin 3.2 L Vitamin B12 864 Folate TSH 3rd Generation Cortisol Urine Osmolality Ur Random Sodium 12/22/20 12/22/20 12/23/20 21:41 21:41 07:58 WBC RBC Hgb Hct MCV MCH MCHC RDW Plt Count MPV Immature Gran % (Auto) Neut % (Auto) Lymph % (Auto) Calloway % (Auto) Eos % (Auto) Baso % (Auto) Lymph # (Auto) C[place] # (Auto) Eos # (Auto) Baso # (Auto) Abs Immat Gran (auto) Absolute Neuts (auto) Absolute Nucleated RBC Nucleated RBC % (auto) Sodium 130 L Potassium 5.2 H Chloride 94 L Carbon Dioxide 29 Anion Gap 12 BUN Creatinine Estim Creat Clear Calc Estimated GFR Random Glucose Fasting Glucose Osmolality Uric Acid Calcium Total Bilirubin Direct Bilirubin AST ALT Alkaline Phosphatase B-Natriuretic Peptide Total Protein Albumin Vitamin B12 Folate TSH 3rd Generation Cortisol Urine Osmolality 540 Ur Random Sodium 65.0 12/23/20 12/23/20 12/24/20 07:58 13:14 11:02 WBC RBC Hgb Hct MCV MCH MCHC RDW Plt Count MPV Immature Gran % (Auto) Neut % (Auto) Lymph % (Auto) Calloway % (Auto) Eos % (Auto) Baso % (Auto) Lymph # (Auto) C[place]ay # (Auto) Eos # (Auto) Baso # (Auto) Abs Immat Gran (auto) Absolute Neuts (auto) Absolute Nucleated RBC Nucleated RBC % (auto) Sodium 127 L Potassium 4.6 Chloride 93 L Carbon Dioxide 29 Anion Gap 10 L BUN Creatinine Estim Creat Clear Calc Estimated GFR Random Glucose Fasting Glucose Osmolality Uric Acid 2.3 L Calcium Total Bilirubin Direct Bilirubin AST ALT Alkaline Phosphatase B-Natriuretic Peptide Total Protein Albumin Vitamin B12 Folate TSH 3rd Generation Cortisol Urine Osmolality Ur Random Sodium 79.0 Airway Mallampati Class: II TM Dist: >3cm Neck ROM: Full Assessment and Plan Assessment Anesthesia Assessment: Anesthesia Plan Discussed and Chart Reviewed Final Anesthetic Review NPO: Yes ASA Class: III Final Preanesthetic Review: No Changes in Pt Med Stat, Meds/Allgs Chart Reviewed, Consent Obtained/Reviewed and Anes Risks/Benef Reviewed Patient Risk: Intermediate Procedure Risk: Low Assessment/Block/Sedation in SS: Assess/Block/Sedation-SS Anesthetic Plan Anesthetic Plan: GA Disposition: Standard PACU
--- NOTE | 2020-12-25 09:26 | HO.ECTPROC ---
ECT Procedure Note Diagnosis/Treatment Date of Service: 12/25/20 Diagnosis: Bipolar disorder Previous ECT Date: 11/27/20 Current Treatment Number: 2 Treatment: Series Interval Clinical Notes: Reported some chest pain ECT Settings Device: THYMATRON DGx Electrode Placement: Bitemporal Program/Pulse Width: 0.25 Energy Percent: 100 Seizure Duration By EEG (in seconds): 66 Medications Administration General Anesthetic: Etomidate (12) Muscle Relaxant: Succinylcholine (100) Ancillary Medications Analgesics: Torodol - Pre ECT Anti-emetics: Zofran - Pre ECT Airway Management Airway Management: Bag Mask Ventilation Treatment Recommendations No Changes Recommended: No change Pt Tolerated Procedure w/o Issue: Yes
[2020-12-25 10:00] LABS: Anion Gap 15 (12-20); Carbon Dioxide 23 mmol/L (22-29); Chloride 95 mmol/L (96-108); Potassium 5.1 mmol/L (3.3-5.1); Sodium 128 mmol/L (135-145)
[2020-12-25] MEDS: Sodium Chloride Tab 1 GM TABLET PO ×3 (11:38→20:28)
[2020-12-25] MEDS: Benzonatate 100 MG CAPSULE PO ×3 (11:38→20:28)
[2020-12-25] MEDS: Lidocaine 4 % Patch ADH..PATCH 2 PATCH TRANSDERMA (11:38)
[2020-12-25] MEDS: Famotidine 20 MG TABLET PO (11:38)
[2020-12-25] MEDS: Clotrimazole 1 % Cream 15 GM TUBE 1 APPL TOPICAL ×2 (11:40→20:28)
[2020-12-25] MEDS: Budesonide 180 MCG AER.POW.BA 2 PUFF INHALE ×2 (11:59→20:28)
[2020-12-25] MEDS: Albuterol Sulfate (0.083%) 2.5 MG/3 ML VIAL.NEB INHALE (11:59)
[2020-12-25] MEDS: Lactated Ringers 1,000 ML 20 ML IVCONT (12:00)
[2020-12-25] MEDS: Brexpiprazole 1 MG TABLET 1.5 MG PO (16:12)
[2020-12-25 16:41] LABS: Osmolality Urine 733 mosm/kg (373-1093)
--- NOTE | 2020-12-25 16:44 | P.PNPSI_ITS ---
Subjective Subjective Date of Service: 12/26/20 Reason For Visit: Severe depression Subjective Notes: Conditional Voluntary Interim History: Patient appears with a somewhat mehta affect after ECT today. See ECT note who monitor sodium Maintain close observation Medication Compliance: Yes Side effects from medications: Yes Attending Groups: No Mental Status Exam Mental Status Exam Patient Appearance: Well Grooomed Patient Orientation: Person, Place, Time and Situation Level of Consciousness: Awake and Appropriate Patient Behavior: Appropriate and Cooperative Mood Description: Depressed, Anxious and Blunted Affect Description: Withdrawn, Blunted, Sad and Apprehensive Patient Cognition Impaired: Yes Ability to Follow Directions: Fair Speech Pattern: Clear and Appropriate Thought Process: Intact Thought Content: positive for Intact Judgement: Fair Diagnostics Vital Signs (24Hr): Vital Signs - 24 hr 12/24/20 18:00 12/24/20 20:59 12/25/20 06:56 Temperature 97.9 F 98.6 F 98.1 F Pulse Rate 83 74 76 Respiratory Rate 16 Blood Pressure 117/57 L 110/60 109/55 L Pulse Oximetry 94 94 94 12/25/20 08:52 12/25/20 09:35 12/25/20 09:40 Temperature 97.3 F 97.0 F Pulse Rate 79 83 79 Respiratory Rate 22 H 16 24 H Blood Pressure 132/67 158/98 H 161/85 H Pulse Oximetry 96 98 99 12/25/20 09:44 12/25/20 09:50 12/25/20 10:05 Temperature 98.3 F Pulse Rate 82 85 83 Respiratory Rate 24 H 26 H 24 H Blood Pressure 143/74 H 155/88 H 146/79 H Pulse Oximetry 98 95 97 12/25/20 11:06 Temperature 98.8 F Pulse Rate 86 Respiratory Rate Blood Pressure 126/81 Pulse Oximetry Body Mass Index 0.2 Labs Results: 12/09/20 10:06 12/25/20 09:00 Labs: Laboratory Results - last 48 hr 12/24/20 12/25/20 12/25/20 11:02 09:00 Unknown Sodium 127 L 128 L Potassium 4.6 5.1 Chloride 93 L 95 L Carbon Dioxide 29 23 Anion Gap 10 L 15 Urine Osmolality 733 Imaging Radiology Impressions: ITS Impressions Chest X-Ray 12/05/20 18:58 IMPRESSION: Severe chronic interstitial lung disease stable when compared to the prior study. There are probably new small trace pleural effusions present Modified Barium Swallow 12/10/20 14:00 IMPRESSION: 1. No evidence of aspiration. Transient penetration with thin and nectar consistency. 2. Abnormalities of the oral and pharyngeal phase of swallowing as described above, with moderate vallecular retention. 3. Please see speech pathology report for specific recommendations and further information. Chest X-Ray 12/21/20 11:40 IMPRESSION: Scattered pulmonary opacities superimposed upon interstitial fibrotic changes similar to recent exams. Chest X-Ray 12/23/20 16:02 IMPRESSION: Improving bilateral airspace opacities. Chronic interstitial lung disease. Medications Medications Current Medications Generic Name Dose Route Start Last Admin Trade Name Freq PRN Reason Stop Dose Admin Acetaminophen 650 mg 12/04/20 15:37 12/24/20 13:56 Acetaminophen 325 Mg Tablet PO 650 mg Q6H PRN Administration Headache/Pain Mild Scale (1-3) Al Hydroxide/Mg Hydroxide 30 ml 12/04/20 15:37 Magnesium Hydrox/Alum Hydrox 30 Ml Oral.Susp PO Q6H PRN Heartburn/Nausea Benzonatate 100 mg 12/21/20 21:00 12/25/20 15:08 Benzonatate 100 Mg Capsule PO 100 mg TID DOMINICK Administration Brexpiprazole 1.5 mg 12/17/20 17:00 12/25/20 16:12 Brexpiprazole 1 Mg Tablet PO 1.5 mg DAILY@1700 DOMINICK Administration Budesonide 2 puff 12/06/20 10:21 12/25/20 11:59 Budesonide 180 Mcg Aer.Pow.Ba INHALE 2 puff RBID DOMINICK Administration Clotrimazole 1 appl 12/14/20 21:00 12/25/20 11:40 Clotrimazole 1 % Cream 15 Gm Tube TOPICAL 1 appl BID DOMINICK Administration Protocol Docusate Sodium 100 mg 12/04/20 15:34 Docusate Sodium 100 Mg Capsule PO DAILY PRN Constipation Famotidine 20 mg 12/05/20 09:00 12/25/20 11:38 Famotidine 20 Mg Tablet PO 20 mg DAILY DOMINICK Administration Fentanyl 50 mcg 12/25/20 08:52 12/25/20 09:00 Fentanyl Citrate/Pf 100 Mcg/2 Ml Vial IVPUSH 50 mcg Q5M PRN Administration Pain, Severe (Pain Scale 7-10) Guaifenesin/Dextromethorphan 5 ml 12/04/20 15:34 04/04/21 06:32 Guaifenesin Dm 100/10/5 Ml 5 Ml Syrup PO 5 ml Q6H PRN Administration cough Hydroxyzine HCl 25 mg 12/04/20 15:37 12/22/20 21:27 Hydroxyzine Hcl 25 Mg Tablet PO 25 mg BEDTIME PRN Administration Anxiety Hydroxyzine HCl 25 mg 12/15/20 18:14 12/22/20 02:25 Hydroxyzine Hcl 25 Mg Tablet PO 25 mg Q6H PRN Administration Anxiety Lactated Ringer's 1,000 mls @ 20 mls/hr 12/25/20 09:15 12/25/20 12:00 Lr IVCONT 20 mls/hr .Q24H DOMINICK Administration Lidocaine 2 patch 12/21/20 17:15 12/25/20 11:38 Lidocaine 4 % Patch Adh..Patch TRANSDERMA 2 patch DAILY DOMINICK Administration Protocol Loperamide HCl 2 mg 12/08/20 16:31 12/12/20 02:22 Loperamide Hcl 2 Mg Capsule PO 2 mg Q4H PRN Administration Diarrhea Lorazepam 0.5 mg 12/20/20 12:18 12/23/20 14:54 Lorazepam 0.5 Mg Tablet PO 0.5 mg Q4H PRN Administration Anxiety Lorazepam 0.5 mg 12/20/20 21:00 12/24/20 19:58 Lorazepam 0.5 Mg Tablet PO 0.5 mg BEDTIME DOMINICK Administration Magnesium Hydroxide 30 ml 12/04/20 15:37 Milk Of Magnesia 30 Ml Oral.Susp PO DAILY PRN Constipation Non-Formulary Medication 1 each 12/04/20 21:00 12/25/20 11:41 Patient Own Medication PO 1 each BID DOMINICK Administration Omeprazole 20 mg 12/09/20 16:30 12/25/20 16:12 Omeprazole 20 Mg Capsule.Dr PO 20 mg BID@0630,1630 DOMINICK Administration Ondansetron HCl 4 mg 12/04/20 15:34 Ondansetron Odt 4 Mg Tab.Rapdis TRANSLINGU Q8H PRN nausea/vomiting Ondansetron HCl 4 mg 12/04/20 15:34 Ondansetron Hcl 4 Mg/2 Ml Vial IVPUSH Q8H PRN Nausea and Vomiting Quetiapine Fumarate 12.5 mg 12/17/20 21:00 12/24/20 19:58 Quetiapine Fumarate 25 Mg Tablet PO 12.5 mg BEDTIME DOMINICK Administration Sodium Chloride 1 gm 12/24/20 21:00 12/25/20 15:08 Sodium Chloride Tab 1 Gm Tablet PO 1 gm TID DOMINICK Administration Allergies Allergies Allergy/AdvReac Type Severity Reaction Status Date / Time Sulfa (Sulfonamide Allergy Unknown UNKNOWN Verified 12/01/20 09:47 Antibiotics) [SULFA (SULFONAMIDE ANTIBIOTICS)] zoster vaccine live Allergy Hives Verified 12/01/20 09:47 Assessment & Plan Assessment & Plan (1) Pulmonary fibrosis: Status: Acute Code(s): J84.10 - Pulmonary fibrosis, unspecified Assessment and Plan: 80M with pulmonary fibrosis and dysphagia dysphagia MBSS done 12/10/20 gi appreciated, likely oropharyngeal, would not benefit from EGD at this time continue [employer], nutrition monitoring pureed and nectar thick with nutritional supplements improving intake (2) Swallowing dysfunction: Status: Acute Code(s): R13.10 - Dysphagia, unspecified (3) Bipolar I disorder with depression, severe: Status: Acute Code(s): F31.4 - Bipolar disorder, current episode depressed, severe, without psychotic features Assessment and Plan: Continue ECT Rexulti Prozac discontinued secondary to hyponatremia Greater than 50% of the session was spent on counseling and/or coordination of care Reason for contiued inpatient stay Substantial Risk for: rapid decompensation and med/psych decompensation
--- NOTE | 2020-12-25 19:10 | PM.PNNEP ---
Subjective Subjective Date of Service: 12/25/20 Interval history: Seen and exmained. Events noted Physical Exam Vital Signs: Vital Signs: Last Vital Signs Temp 97.0 F 12/25/20 17:41 Pulse 72 12/25/20 17:41 Resp 18 12/25/20 17:41 BP 122/55 L 12/25/20 17:41 Pulse Ox 94 12/25/20 17:41 Body Mass Index 0.2 Const: Other: Constitutional : Alert, oriented, not in distress Neck : Normal inspection, Supple Cardiovascular : RRR, S1 S2, no lower extremity edema, chest wall tenderness mainly at the lower areas Respiratory : Decreased bilateral air entry, fine basal crackles, no wheezes or rhonchi Gastrointestinal: soft, lax, Normal bowel sounds, Non tender Skin : Warm/Dry, No rash Neurological : Alert & oriented x3, No focal deficit General: no acute distress, alert, awake and confusion Orientation/consciousness: confusion Eyes: Sclerae: sclerae normal EOM: EOMs intact bilaterally Neck: Neck: Yes no lymphadenopathy, Yes trachea midline and Yes supple Resp: Effort & Inspection: normal respiratory effort and no respiratory distress Auscultation: clear to auscultation bilaterally Cardio: Rate: regular rate Rhythm: regular rhythm Heart sounds: no gallops, no murmurs and no rubs GI: Palpation (GI): Soft to palpation and Other GI palpation findings present ( Nontender) Auscultation: normal bowel sounds Neuro: General: confusion Extrem: General: Yes no pedal edema, No clubbing and No cyanosis Objective Data Labs CBC & Chem 7: 12/09/20 10:06 12/25/20 09:00 Labs: Laboratory Results - last 24 hr 12/25/20 12/25/20 09:00 Unknown Sodium 128 L Potassium 5.1 Chloride 95 L Carbon Dioxide 23 Anion Gap 15 Urine Osmolality 733 Assessment & Plan Assessment and plan (1) Pulmonary fibrosis: Status: Acute (2) Swallowing dysfunction: Status: Acute Assessment and Plan: Euvolemic vs Hypovolemic HypoNa: despite his clinical exam looking dry 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, and low serum UAL; SNa 127- 130 he is on meds that can be assoc with SIADH interestingly he may have so called Renal salt wasting syndrome if he has inappropriate Urine salt elvation intthe face of decr effective arteial volume also he certainly looks like a pt who may have low solute intake and this can be assoc with hypoNa but usu the Uosm is lower in theses cases cortisol level not suppressed; TSH ok REC: cont po fluid rest and track SNa; cont po NaCl and start urea; at risk for developing superimporse hypovol given poor po fluid intake; cont to track ASna Time Spent With Patient Time: Total time spent is greater than 50% in coordination of care (as documented) at patient's floor/unit and/or counseling patient:
[2020-12-25] MEDS: LORazepam 0.5 MG TABLET PO (20:28)
[2020-12-25] MEDS: QUEtiapine Fumarate 25 MG TABLET 12.5 MG PO (20:28)
[2020-12-25] MEDS: Acetaminophen 325 MG TABLET 650 MG PO (20:37)
[2020-12-26] MEDS: Omeprazole 20 MG CAPSULE.DR PO ×2 (06:56→16:35)
[2020-12-26 07:06] VITALS: BP 92/55; PULSE 72; RESP 20; TEMP 36.7; O2SAT 92
[2020-12-26] MEDS: Famotidine 20 MG TABLET PO (09:09)
[2020-12-26] MEDS: Acetaminophen 325 MG TABLET 650 MG PO ×2 (09:09→20:39)
[2020-12-26] MEDS: Benzonatate 100 MG CAPSULE PO ×3 (09:09→20:29)
[2020-12-26] MEDS: Lidocaine 4 % Patch ADH..PATCH 2 PATCH TRANSDERMA (09:10)
[2020-12-26] MEDS: Sodium Chloride Tab 1 GM TABLET PO ×2 (09:30→16:35)
[2020-12-26 09:36] LABS: Vitamin B1 <6 nmol/L (8-30)
[2020-12-26] MEDS: Budesonide 180 MCG AER.POW.BA 2 PUFF INHALE ×2 (10:39→20:37)
[2020-12-26 16:30] VITALS: BP 113/78; PULSE 70; TEMP 36.4; O2SAT 96
[2020-12-26] MEDS: Brexpiprazole 1 MG TABLET 1.5 MG PO (16:35)
--- NOTE | 2020-12-26 19:54 | P.PNPSI_ITS ---
Subjective Subjective Date of Service: 12/26/20 Reason For Visit: Severe depression Subjective Notes: Conditional Voluntary Interim History: Pt continues on 1:1. Brightens with visitors Anergic, flat, quiet. Team reports rib pain from coughing. Difficulty with renal order for ure-na. Cesar Mistry of [facility] pharmacy is working on replacement as pt is unable to drink this medication. Medication Compliance: Yes Side effects from medications: No Attending Groups: No Review of Systems Review of Systems Yes Other (CKD, pulmonary fibrosis) Psychiatric: Reports anxiety, Reports change in appetite and Reports depression Mental Status Exam Mental Status Exam Patient Appearance: Fatigued Patient Orientation: Person, Place and Situation Level of Consciousness: Awake Patient Behavior: Dependent, Talkative, Cooperative, Passive and Anxious Mood Description: Depressed Affect Description: Flat Patient Cognition Impaired: Yes Ability to Follow Directions: Good Speech Pattern: Spontaneous Speech and Soft-Spoken Memory Description: Episodic Impaired Hallucinations: None Delusions: Not Present Thought Process: Intact Thought Content: positive for Circumstantial Depressive Symptoms: Increased Anxiety, Hopelessness, Unhappiness, Increased Fatigue and Loss of Energy Judgement: Fair Diagnostics Vital Signs (24Hr): Vital Signs - 24 hr 12/26/20 07:06 Temperature 98.0 F Pulse Rate 72 Respiratory Rate 20 Blood Pressure 92/55 L Pulse Oximetry 92 Body Mass Index 0.2 Labs Results: 12/27/20 03:17 12/27/20 03:51 Labs: Laboratory Results - last 48 hr 12/22/20 12/25/20 12/25/20 08:12 09:00 Unknown Sodium 128 L Potassium 5.1 Chloride 95 L Carbon Dioxide 23 Anion Gap 15 Vitamin B1 <6 L Urine Osmolality 733 Imaging Radiology Impressions: ITS Impressions Chest X-Ray 12/05/20 18:58 IMPRESSION: Severe chronic interstitial lung disease stable when compared to the prior study. There are probably new small trace pleural effusions present Modified Barium Swallow 12/10/20 14:00 IMPRESSION: 1. No evidence of aspiration. Transient penetration with thin and nectar consistency. 2. Abnormalities of the oral and pharyngeal phase of swallowing as described above, with moderate vallecular retention. 3. Please see speech pathology report for specific recommendations and further information. Chest X-Ray 12/21/20 11:40 IMPRESSION: Scattered pulmonary opacities superimposed upon interstitial fibrotic changes similar to recent exams. Chest X-Ray 12/23/20 16:02 IMPRESSION: Improving bilateral airspace opacities. Chronic interstitial lung disease. Medications Medications Current Medications Generic Name Dose Route Start Last Admin Trade Name Freq PRN Reason Stop Dose Admin Acetaminophen 650 mg 12/04/20 15:37 12/26/20 09:09 Acetaminophen 325 Mg Tablet PO 650 mg Q6H PRN Administration Headache/Pain Mild Scale (1-3) Al Hydroxide/Mg Hydroxide 30 ml 12/04/20 15:37 Magnesium Hydrox/Alum Hydrox 30 Ml Oral.Susp PO Q6H PRN Heartburn/Nausea Benzonatate 100 mg 12/21/20 21:00 12/26/20 16:35 Benzonatate 100 Mg Capsule PO 100 mg TID DOMINICK Administration Brexpiprazole 1.5 mg 12/17/20 17:00 12/26/20 16:35 Brexpiprazole 1 Mg Tablet PO 1.5 mg DAILY@1700 DOMINICK Administration Budesonide 2 puff 12/06/20 10:21 12/26/20 10:39 Budesonide 180 Mcg Aer.Pow.Ba INHALE 2 puff RBID DOMINICK Administration Clotrimazole 1 appl 12/14/20 21:00 12/26/20 14:08 Clotrimazole 1 % Cream 15 Gm Tube TOPICAL Not Given BID [facility] Protocol Docusate Sodium 100 mg 12/04/20 15:34 Docusate Sodium 100 Mg Capsule PO DAILY PRN Constipation Famotidine 20 mg 12/05/20 09:00 12/26/20 09:09 Famotidine 20 Mg Tablet PO 20 mg DAILY DOMINICK Administration Fentanyl 50 mcg 12/25/20 08:52 12/25/20 09:00 Fentanyl Citrate/Pf 100 Mcg/2 Ml Vial IVPUSH 50 mcg Q5M PRN Administration Pain, Severe (Pain Scale 7-10) Guaifenesin/Dextromethorphan 5 ml 12/04/20 15:34 12/13/20 06:32 Guaifenesin Dm 100/10/5 Ml 5 Ml Syrup PO 5 ml Q6H PRN Administration cough Hydroxyzine HCl 25 mg 12/04/20 15:37 12/22/20 21:27 Hydroxyzine Hcl 25 Mg Tablet PO 25 mg BEDTIME PRN Administration Anxiety Hydroxyzine HCl 25 mg 12/15/20 18:14 12/22/20 02:25 Hydroxyzine Hcl 25 Mg Tablet PO 25 mg Q6H PRN Administration Anxiety Lidocaine 2 patch 12/21/20 17:15 12/26/20 09:10 Lidocaine 4 % Patch Adh..Patch TRANSDERMA 2 patch DAILY DOMINICK Administration Protocol Loperamide HCl 2 mg 12/08/20 16:31 12/12/20 02:22 Loperamide Hcl 2 Mg Capsule PO 2 mg Q4H PRN Administration Diarrhea Lorazepam 0.5 mg 12/20/20 12:18 12/23/20 14:54 Lorazepam 0.5 Mg Tablet PO 0.5 mg Q4H PRN Administration Anxiety Lorazepam 0.5 mg 12/20/20 21:00 12/25/20 20:28 Lorazepam 0.5 Mg Tablet PO 0.5 mg BEDTIME DOMINICK Administration Magnesium Hydroxide 30 ml 12/04/20 15:37 Milk Of Magnesia 30 Ml Oral.Susp PO DAILY PRN Constipation Non-Formulary Medication 1 each 12/04/20 21:00 12/26/20 10:38 Patient Own Medication PO 1 each BID DOMINICK Administration Omeprazole 20 mg 12/09/20 16:30 12/26/20 16:35 Omeprazole 20 Mg Capsule. PO 20 mg BID@0630,1630 DOMINICK Administration Ondansetron HCl 4 mg 12/04/20 15:34 12/26/20 10:31 Ondansetron Odt 4 Mg Tab.Rapdis TRANSLINGU 4 mg Q8H PRN Administration nausea/vomiting Ondansetron HCl 4 mg 12/04/20 15:34 Ondansetron Hcl 4 Mg/2 Ml Vial IVPUSH Q8H PRN Nausea and Vomiting Quetiapine Fumarate 12.5 mg 12/17/20 21:00 12/25/20 20:28 Quetiapine Fumarate 25 Mg Tablet PO 12.5 mg BEDTIME DOMINICK Administration Saliva Substitute 1 spray 12/26/20 12:38 Dry Mouth Bowden 30 Ml Bowden MUCOUS MEM Q2H PRN Dry Mouth Sodium Chloride 2 gm 12/26/20 21:00 Sodium Chloride Tab 1 Gm Tablet PO TID DOMINICK Urea 15 gm 12/25/20 20:30 12/26/20 13:25 Urea 15 Gm Powder PO Not Given BID@0830,2030 [facility] Allergies Allergies Allergy/AdvReac Type Severity Reaction Status Date / Time Sulfa (Sulfonamide Allergy Unknown UNKNOWN Verified 12/01/20 09:47 Antibiotics) [SULFA (SULFONAMIDE ANTIBIOTICS)] zoster vaccine live Allergy Hives Verified 12/01/20 09:47 Assessment & Plan Assessment & Plan (1) Pulmonary fibrosis: Status: Acute Code(s): J84.10 - Pulmonary fibrosis, unspecified (2) Swallowing dysfunction: Status: Acute Code(s): R13.10 - Dysphagia, unspecified (3) Bipolar I disorder with depression, severe: Status: Acute Code(s): F31.4 - Bipolar disorder, current episode depressed, severe, without psychotic features Assessment and Plan: Euvolemic vs Hypovolemic HypoNa: despite his clinical exam looking dry 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, and low serum UAL; SNa 127- 130 he is on meds that can be assoc with SIADH interestingly he may have so called Renal salt wasting syndrome if he has inappropriate Urine salt elvation intthe face of decr effective arteial volume also he certainly looks like a pt who may have low solute intake and this can be assoc with hypoNa but usu the Uosm is lower in theses cases cortisol level not suppressed; TSH ok REC: cont po fluid rest and track SNa; cont po NaCl and start urea; at risk for developing superimporse hypovol given poor po fluid intake; cont to track ASna Greater than 50% of the session was spent on counseling and/or coordination of care Reason for contiued inpatient stay Substantial Risk for: med/psych decompensation
[2020-12-26] MEDS: QUEtiapine Fumarate 25 MG TABLET 12.5 MG PO (20:29)
[2020-12-26] MEDS: LORazepam 0.5 MG TABLET PO (20:29)
[2020-12-26] MEDS: Sodium Chloride Tab 1 GM TABLET 2 GM PO (20:30)
[2020-12-26] MEDS: hydrOXYzine HCL 25 MG TABLET PO (20:39)
[2020-12-26 20:47] VITALS: BP 104/70; PULSE 84; O2SAT 95
[2020-12-26 22:22] VITALS: BP 130/61; PULSE 99; TEMP 37.1; O2SAT 92
[2020-12-27] VITALS (9 sets, daily range): BP systolic 76–173; BP diastolic 48–86; PULSE 71–117; RESP 28–228; TEMP 36.5–38.2; O2SAT 94–98
--- NOTE | 2020-12-27 01:49 | PC.NURSE ---
Patient was up at around 0130 c/o feeling cold and freezing. VSs was taken at 0135: BP 153/85. HR 96. RR 28. O2sat RA 82%. Patient was put on 1 L oxygen , O2 Sat up to 88%. Increase oxygen up to 2L, O2Sat was taken 10 min later was at 96%.Hospitalist Dr. Santana was notified and aware patient's status. Continue to monitor for any status change.
[2020-12-27] MEDS: LORazepam 0.5 MG TABLET PO (02:43)
[2020-12-27] MEDS: hydrOXYzine HCL 25 MG TABLET PO (04:19)
[2020-12-27 04:20] LABS: D Dimer 1892 NG/ML
[2020-12-27 04:23] LABS: B Type Natriuretic Peptide 66 pg/mL (<100)
[2020-12-27] MEDS: Acetaminophen 325 MG TABLET 650 MG PO (04:50)
--- NOTE | 2020-12-27 04:55 | PM.EVENT ---
Event Note Date of Service: 12/27/20 Event Note: Fever: Patient had an episode of temperature of 100.8? for head. Patient blood pressure on the soft side. Mildly tachycardic and tachypneic. RN felt patient was mildly anxious and has given Ativan. Increase oral fluids. Will obtain blood cultures. Noted elevated D-dimer, will obtain CT scan. Patient had mild increase in oxygen requirements but breathing comfortably. Will empirically start the patient on Vantin and doxy Update: At around 6:45 a.m. RN mentioned that patient's blood pressure dropped to 76/48. CT scan showed left lower lobe consolidation. Patient is started on antibiotics already. Ordered normal saline bolus. Discussed with ICU attending Dr Daniel as well; Also spoke to the day hospitalist Dr.Jesin Rios Lactic acid pending.
[2020-12-27 05:18] LABS: MANUAL DIFF FLAG NO
[2020-12-27 05:20] LABS: Basophils Percent Auto 0.3 % (0-2); Eosinophils Absolute Auto 0.3 X10*3/uL (0.0-0.4); Eosinophils Percent Auto 2.5 % (0-4); Hematocrit 31.7 % (42-52); Hemoglobin 10.8 g/dl (14.0-18.0); Imm Gran Abs Auto 0.02 X10*3/uL (0.00-0.03); Imm Gran Pct Auto 0.2 % (0.0-0.4); Lymphocytes Absolute Auto 1.4 X10*3/uL (1.2-4.9); Lymphocytes Percent Auto 11.4 % (20-40); Mean Corpuscular HGB Conc 34.1 g/dl (31.0-36.0); Mean Corpuscular Hemoglobin 31.4 pg (27.0-33.0); Mean Corpuscular Volume 92.2 fL (80-98); Mean Platelet Volume 11.2 fL (9.4-12.4); Monocytes Absolute Auto 0.8 X10*3/uL (0.1-1.2); Monocytes Percent Auto 6.5 % (2-11); Neutrophils Absolute Auto 9.7 X10*3/uL (2.0-8.3); Neutrophils Percent Auto 79.1 % (45-73); Platelet Count 222 X10*3/uL (160-400); Red Blood Count 3.44 X10*6/uL (4.60-5.80); Red Cell Distribution Width 14.6 % (11.0-16.0); White Blood Count 12.2 X10*3/uL (4.8-10.8)
[2020-12-27 05:32] LABS: Anion Gap 17 (12-20); Blood Urea Nitrogen 26 mg/dL (9-16); Calcium 8.7 mg/dL (8.4-10.2); Carbon Dioxide 25 mmol/L (22-29); Chloride 93 mmol/L (96-108); Creatinine Clr Calc Pharmacy 44.5; Estimated Glomerular Filt Rate > 60; Glucose Random 123 mg/dL (60-115); Sodium 130 mmol/L (135-145)
[2020-12-27] MEDS: iohexoL 350 MG/ML 100 ML INFUS..BTL 65 ML IV (06:12)
[2020-12-27] MEDS: 0.9 % Sodium Chloride 500 ML IV (07:10)
[2020-12-27 07:47] LABS: Magnesium 1.6 mg/dL (1.6-2.6); Phosphorus 1.5 mg/dL (2.7-4.5)
[2020-12-27 07:48] LABS: Troponin-I High Sensitivity 30.2 ng/L (<3.5-35.0)
[2020-12-27 07:57] LABS: Lactic Acid 1.3 mmol/L (0.5-2.0)
[2020-12-27 08:12] LABS: Procalcitonin 0.29 ng/mL
--- NOTE | 2020-12-27 08:30 | PC.NURSE ---
0245: Pt awake and presented as disoriented to place and confused. Pt urinated on the wall instead of urinal. Blood pressure, heart rate, and respirations elevated. Reported anxiety and received Ativan 0.5 mg PRN PO. Lung sounds assessed to have crackles in left lower lobe. Denied pain and denied chest pain. Dr. Santana notified and duo neb, labs, and xray ordered. Received duo neb by 0330. Pt's vital signs continued to improve (see documentation). 0445 Pt assessed to be hypotensive and febrile. Received Tylenol [address] Santana, pt received CT scan off unit at 0545 and returned 0605. 0640 Pt assessed to be hpotensive otherwise VSS. Per Dr. Zaidi, received bolus 500 ml NS/hr. VSS post bolus BP increased and VSS on 2L O2 via nasal cannula. IV antibiotics started 08:35 prior to transfer to [id number]. Nurse to nurse complete.
[2020-12-27] MEDS: cefTRIAXone sodium 1 GM in 0.9 % Sodium Chloride 50 ML IV (08:32)
--- NOTE | 2020-12-27 19:16 | P.DS_ITS ---
DS: Providers Provider Date of Service: 01/14/21 <Ailyn Simmons PLATE AND WELD INSPECTOR - Last Filed: 01/14/21 16:10> 12/27/20 <Blane Chowdhury MD - Last Filed: 02/07/21 17:04> Date of admission: 12/04/20 15:02 <Ailyn Simmons PLATE AND WELD INSPECTOR - Last Filed: 01/14/21 16:10> Date of discharge: 12/27/20 <Ailyn Simmons PLATE AND WELD INSPECTOR - Last Filed: 01/14/21 16:10> 12/27/20 <Blane Chowdhury MD - Last Filed: 02/07/21 17:04> Primary care physician: Unknown Physician <Ailyn Simmons PLATE AND WELD INSPECTOR - Last Filed: 01/14/21 16:10> Admitting clinician: Blane Chowdhury <Ailyn Simmons PLATE AND WELD INSPECTOR - Last Filed: 01/14/21 16:10> Attending physician on admission: Blane Chowdhury <Ailyn Simmons PLATE AND WELD INSPECTOR - Last Filed: 01/14/21 16:10> Blane Chowdhury <Blane Chowdhury MD - Last Filed: 02/07/21 17:04> Consults: 12/25/20 19:09 Consult to Physician Routine Consulting Provider: Jackson Soriano Reason for consultation: hyponatremia Has provider been notified: Yes <Ailyn Simmons PLATE AND WELD INSPECTOR - Last Filed: 01/14/21 16:10> Attending physician on discharge: Blane Chowdhury <Ailyn Simmons PLATE AND WELD INSPECTOR - Last Filed: 01/14/21 16:10> Blane Chowdhury <Blane Chowdhury MD - Last Filed: 02/07/21 17:04> Discharging clinician: Ailyn Simmons <Ailyn Simmons PLATE AND WELD INSPECTOR - Last Filed: 01/14/21 16:10> Ailyn Simmons <Blane Chowdhury MD - Last Filed: 02/07/21 17:04> DS: Diagnosis Discharge Diagnosis (1) Pulmonary fibrosis: Status: Acute <Ailyn SimmonsDARBYN - Last Filed: 01/14/21 16:10> (2) Swallowing dysfunction: Status: Acute <Ailyn Simmons, PLATE AND WELD INSPECTOR - Last Filed: 01/14/21 16:10> (3) Bipolar I disorder with depression, severe: Status: Acute <Ailyn SimmonsDARBYN - Last Filed: 01/14/21 16:10> DS: Medications Discharge Medications Home Medications: Home Medications Medication Instructions Recorded Confirmed Latuda 1 tab PO DAILY 11/25/20 12/31/20 Ofev 150 mg PO BID 11/25/20 12/31/20 docusate sodium [Stool Softener] 1 cap PO BID PRN 11/25/20 12/31/20 lorazepam 1 tab PO BID PRN 11/25/20 12/31/20 mirtazapine 1 tab PO BEDTIME 11/25/20 12/31/20 ondansetron 1 tab PO Q8H PRN 11/25/20 12/31/20 quetiapine 37.5 mg PO BEDTIME 11/25/20 12/31/20 Previous Rx's Medication Instructions Recorded benzonatate [Tessalon Perles] 100 mg PO TID 4 Days #12 cap 12/04/20 dextromethorphan-guaifenesin 10 ml PO Q6H 7 Days #280 ml 12/04/20 famotidine 20 mg PO DAILY #30 tab 12/04/20 benzocaine-menthol [Cepacol Sore 1 haris MUCOUS MEMBRANE Q2H PRN #20 12/31/20 Throat (brenda-men)] ea brexpiprazole [Rexulti] 1.5 mg PO DAILY #1 tab 12/31/20 budesonide [Pulmicort Flexhaler] 2 inh INHALATION RBID #1 ea 12/31/20 dexamethasone 2 mg PO DAILY #1 tab 12/31/20 ipratropium-albuterol 3 ml INHALATION Q4H PRN #1 ml 12/31/20 omeprazole 40 mg PO DAILY@0630 #1 cap 12/31/20 quetiapine 12.5 mg PO BEDTIME #1 tab 12/31/20 thiamine mononitrate (vit B1) 100 mg PO DAILY #1 tab 12/31/20 <Ailyn Karly RADHA Simmons - Last Filed: 01/14/21 16:10> Discharge Plan Discharge Patient Disposition: Xfer Other <Ailyn Simmons APRN - Last Filed: 01/14/21 16:10> Discharge Diagnosis: Rule out Aspiration Pneumonia <Ailyn Simmons APRN - Last Filed: 01/14/21 16:10> Rule out Aspiration Pneumonia <Blane Chowdhury MD - Last Filed: 02/07/21 17:04> Referrals: Physician,Unknown [Primary Care Provider] - 1 Week <Ailyn Simmons APRN - Last Filed: 01/14/21 16:10> Discharge Medications: No Action quetiapine 25 mg tablet 37.5 mg PO BEDTIME RF: 0 lorazepam 0.5 mg tablet 1 tab PO BID PRN (Reason: anxiety) RF: 0 docusate sodium [Stool Softener] 100 mg capsule 1 cap PO BID PRN (Reason: constipation) RF: 0 mirtazapine 15 mg tablet 1 tab PO BEDTIME RF: 0 ondansetron 4 mg tablet,disintegrating 1 tab PO Q8H PRN (Reason: nausea/vomiting) RF: 0 Latuda 20 mg tablet 1 tab PO DAILY RF: 0 Ofev 150 mg capsule 150 mg PO BID RF: 0 dextromethorphan-guaifenesin 10-100 mg/5 mL Syrup 10 ml PO Q6H 7 Days Qty: 280 RF: 0 famotidine 20 mg Tablet 20 mg PO DAILY Qty: 30 RF: 0 benzonatate [Tessalon Perles] 100 mg capsule 100 mg PO TID 4 Days Qty: 12 RF: 0 ipratropium-albuterol 0.5 mg-3 mg(2.5 mg base)/3 mL Solution For Nebulization 3 ml inhalation Q4H PRN (Reason: sob) Qty: 1 RF: 0 quetiapine 25 mg Tablet 12.5 mg PO BEDTIME Qty: 1 RF: 0 Rexulti 1 mg Tablet 1.5 mg PO DAILY Qty: 1 RF: 0 omeprazole 40 mg Capsule,Delayed Release(Dr/Ec) 40 mg PO DAILY@0630 Qty: 1 RF: 0 dexamethasone 2 mg Tablet 2 mg PO DAILY Qty: 1 RF: 0 Pulmicort Flexhaler 180 mcg/actuation Aerosol Powdr Breath Activated 2 inh inhalation RBID Qty: 1 RF: 0 Cepacol Sore Throat (brenda-men) 15-3.6 mg Lozenge 1 haris mucous membrane Q2H PRN (Reason: Sore Throat) Qty: 20 RF: 0 thiamine mononitrate (vit B1) 100 mg Tablet 100 mg PO DAILY Qty: 1 RF: 0 <Ailyn Simmons APRN - Last Filed: 01/14/21 16:10> Discharge Orders: Discharge Order (Routine); Ordered 12/27/20 Ordered By: Ailyn Simmons <Ailyn Simmons APRN - Last Filed: 01/14/21 16:10> Diet: advance to usual diet <Ailyn Simmons APRN - Last Filed: 01/14/21 16:10> advance to usual diet <Blane Chowdhury MD - Last Filed: 02/07/21 17:04> Activity on Discharge: med transf <Ailyn Simmons APRN - Last Filed: 01/14/21 16:10> med transf <Blane Chowdhury MD - Last Filed: 02/07/21 17:04> Care Plan Goals: Medical stability <Ailyn Simmons APRN - Last Filed: 01/14/21 16:10> Health Concerns: Respiratory distress <Ailyn Simmons APRN - Last Filed: 01/14/21 16:10> Plan of Treatment: Transfer to medicine <Ailyn Simmons APRN - Last Filed: 01/14/21 16:10> Assessment: Pt transferred to medicine <Ailyn Simmons APRN - Last Filed: 01/14/21 16:10> Discharge Date/Time: 12/27/20 09:20 <Ailyn Simmons APRN - Last Filed: 01/14/21 16:10> Mental Status Exam Mental Status Exam Narrative: This health science writer was not present when pt was transferred to medicine <Ailyn Simmons APRN - Last Filed: 01/14/21 16:10> Data Data Completed and Pending Completed studies during hospitalization [Text1]: 12/27/20 08:25 Blood - Venous Blood Culture - Final No growth after 5 days. 12/27/20 08:25 Blood - Venous Blood Culture - Final No growth after 5 days. <Ailyn Simmons APRN - Last Filed: 01/14/21 16:10> Imaging Diagnostic Imaging Impressions Chest X-Ray 12/05/20 18:58 IMPRESSION: Severe chronic interstitial lung disease stable when compared to the prior study. There are probably new small trace pleural effusions present Modified Barium Swallow 12/10/20 14:00 IMPRESSION: 1. No evidence of aspiration. Transient penetration with thin and nectar consistency. 2. Abnormalities of the oral and pharyngeal phase of swallowing as described above, with moderate vallecular retention. 3. Please see speech pathology report for specific recommendations and further information. Chest X-Ray 12/21/20 11:40 IMPRESSION: Scattered pulmonary opacities superimposed upon interstitial fibrotic changes similar to recent exams. Chest X-Ray 12/23/20 16:02 IMPRESSION: Improving bilateral airspace opacities. Chronic interstitial lung disease. Chest CTA 12/27/20 06:00 IMPRESSION: No CT evidence for pulmonary embolism. Left lower lobe consolidation. Recommendation is for a followup chest series to be obtained following treatment and/or resolution of symptoms to assure resolution of this appearance. Interstitial lung disease. Automated exposure control (Care Dose) Adjustment of the mA and/or kv according to patient size (this includes techniques or standardized protocols for targeted exams where dose is matched to indication / reason for exam; i.e. extremities or head). <Ailyn Simmons APRN - Last Filed: 01/14/21 16:10> DS: Summary Hospital Course Hospital Course: Mr. Azar was transferred to medicine to treat a new left lower lobe consolidation seen on CAT Scan. R/O aspiration pneumonia <Ailyn Durant APRN - Last Filed: 01/14/21 16:10> Status at Discharge Cognitive/behavioral status at discharge: This health science writer was not present when pt was transferred <Ailyn Durant APRN - Last Filed: 01/14/21 16:10> Time Spent with Patient Time attestation: Total time spent providing and/or coordinating discharge services: <Ailyn Simmons APRN - Last Filed: 01/14/21 16:10> Time spent: Less than 30 minutes <Ailyn Simmons APRN - Last Filed: 01/14/21 16:10>
== END 2020-12-27 09:20 | disposition other institution (70) | DRG 885 ==
PROVIDERS: Clinical Nurse Specialist Psychiatric/Mental Health; Family Medicine; Hospitalist; Internal Medicine Nephrology; Student in an Organized Health Care Education/Training Program; Admitting Provider Psychiatry & Neurology Psychiatry; Visit Provider Psychiatry & Neurology Psychiatry
PROC: (CPT 90870; principal; 2020-12-21 07:00)
DX: F31.4 Bipolar disorder, current episode depressed, severe, without psychotic features (principal); J18.9 Pneumonia, unspecified organism; I13.0 Hypertensive heart and chronic kidney disease with heart failure and stage 1 through stage 4 chronic kidney disease, or unspecified chronic kidney disease; J96.11 Chronic respiratory failure with hypoxia; E22.2 Syndrome of inappropriate secretion of antidiuretic hormone; Z88.2 Allergy status to sulfonamides; R13.10 Dysphagia, unspecified; N18.30 Chronic kidney disease, stage 3 unspecified; Z86.73 Personal history of transient ischemic attack (TIA), and cerebral infarction without residual deficits; J84.112 Idiopathic pulmonary fibrosis; Z79.899 Other long term (current) drug therapy
CPT/HCPCS: 36415; 71045; 71275; 74230; 80048; 80051; 80053; 80076; 82533; 82607; 82746; 83605; 83735; 83880; 83930; 83935; 84100; 84145; 84300; 84425; 84484; 84550; 85025; 85027; 85379; 87040; 90870; 92610; 92611; 93005; 97116; 97162; 97530; J0330; J0696; J1885; J2250; J2405; J3010; Q9967

== ENCOUNTER 2020-12-27 08:57 | Inpatient (IN) | payer MEDICARE, OTHER, SELFPAY ==
--- NOTE | 2020-12-27 09:06 | PM.IMHP ---
History of Present Illness Date of Service: 12/27/20 Chief Complaint: lethargy, hypotension 80M pmh depression and recent admission november 2020 for aspiration pneumonia with hypotension. patient had improved and went back to inpatient psychiatry for further treatment of his depression. patient has chronic aspiration with pulmonary fibrosis. patient is being followed by lead systems developer and currently on NDD3 with nectar thick liquids. patient continues to complain however, intermittently, of dysphagia, coughing. on night of admission, patient was noted to be confused and tachypneic. he was hypotensive with SBP in 70s. there was no documented hypoxia. patient underwent CTA which did not show PE, but did show chronic pulmonary fibrosis and new LLL opacity. lactate was 1.3 showing good perfusion, therefore, hypotension was not deemed to be secondary to severe sepsis and only 500cc bolus was given. patient's blood pressure did respond and his blood pressure at time of admission is in the 90s. Review of Systems Review of Systems: Constitutional: fever, denies Chills Eyes: denies blurry vision ENT: denies sore throat CVS: denies chest pain Respiratory: Denies dyspnea GI: no abdominal pain : denies dysuria MSK: denies neck pain Skin: denies rash Neuro: denies specific motor weakness Psych: denies suicidal ideation Endocrine: denies heat/cold intoleratnce Hematologic: denies easy bleeding Allergy: denies hives [facility] Medical History Anemia Anxiety Bronchiectasis Cerebrovascular disease Chronic hyponatremia CKD (chronic kidney disease) stage 3, GFR 30-59 ml/min Degenerative arthritis Depression History of electroconvulsive therapy Hx of bladder cancer Hydrocele Pulmonary fibrosis Pulmonary fibrosis Family History Father Colon cancer Surgical History History of bladder surgery Social History Household Members: Spouse Housing: House Smoking Status: Never smoker Second Hand Smoke Exposure: No Substance Use Type: Marijuana Advance Directives: Yes Advance Directives on File: Yes Advance Directives Date on File: 11/27/20 service: No Current occupational status: retired Sexual orientation: Straight/Heterosexual Meds Allergies Allergy/AdvReac Type Severity Reaction Status Date / Time Sulfa (Sulfonamide Allergy Unknown UNKNOWN Verified 12/01/20 09:47 Antibiotics) [SULFA (SULFONAMIDE ANTIBIOTICS)] zoster vaccine live Allergy Hives Verified 12/01/20 09:47 Active Medications: Current Medications Generic Name Dose Route Start Last Admin Trade Name Freq PRN Reason Stop Dose Admin Acetaminophen 650 mg 12/27/20 08:57 Acetaminophen 325 Mg Tablet PO Q6H PRN Pain, Mild (Pain Scale 1-3) Albuterol/Ipratropium 3 ml 12/27/20 09:01 Albuterol/Iprat 2.5/0.5mg 3 Ml Ampul.Neb INHALE RQ4H PRN sob Brexpiprazole 1.5 mg 12/28/20 09:00 Brexpiprazole 2 Mg Tablet PO DAILY ODMINICK Budesonide 2 puff 12/27/20 20:00 Budesonide 180 Mcg Aer.Pow.Ba INHALE RBID DOMINICK Enoxaparin Sodium 40 mg 12/27/20 09:00 Enoxaparin Sodium 40 Mg/0.4 Ml Syringe SUBCUT Q24H [facility] Hydrocortisone Sodium Succinate 25 mg 12/27/20 09:00 Hydrocortisone Sod Succ/Pf 100 Mg Vial IVPUSH Q8H [facility] Sodium Chloride 1,000 mls @ 100 mls/hr 12/27/20 09:00 Ns IVCONT .Q10H DOMINICK Ceftriaxone Sodium 1 gm/ 50 mls @ 100 mls/hr 12/28/20 06:00 Sodium Chloride IV Q24H DOMINICK Doxycycline Hyclate 100 mg/ 250 mls @ 166.67 mls/hr 12/27/20 09:00 Sodium Chloride IV Q12H DOMINICK Lorazepam 0.5 mg 12/27/20 09:01 Lorazepam 0.5 Mg Tablet PO BEDTIME PRN anxiety Non-Formulary Medication 150 mg 12/27/20 21:00 Nintedanib PO BID DOMINICK Omeprazole 40 mg 12/28/20 06:30 Omeprazole 40 Mg Capsule. PO DAILY@0630 [facility] Quetiapine Fumarate 12.5 mg 12/27/20 21:00 Quetiapine Fumarate 25 Mg Tablet PO BEDTIME DOMINICK Sodium Chloride 3 ml 12/27/20 16:00 0.9 % Sodium Chloride Flush 3 Ml Syringe IVFLUSH QSHIFT [facility] Home Medications Medication Instructions Recorded Confirmed Last Taken Type Latuda 1 tab PO DAILY 11/25/20 12/01/20 11/25/20 History Ofev 150 mg PO BID 11/25/20 12/01/20 11/25/20 History docusate sodium [Stool Softener] 1 cap PO BID PRN 11/25/20 12/01/20 11/25/20 History lorazepam 1 tab PO BID PRN 11/25/20 12/01/20 11/25/20 History mirtazapine 1 tab PO BEDTIME 11/25/20 12/01/20 11/24/20 History ondansetron 1 tab PO Q8H PRN 11/25/20 12/01/20 Unknown History quetiapine 37.5 mg PO BEDTIME 11/25/20 12/01/20 11/24/20 History Physical Exam Vital Signs and Narrative: Vital Signs: 98.4 (tmax 100.8), HR 71, RR 32, BP 90/58 (min 76/48), 95% on RA General: lethargic, NAD, ill appearing HEENT: atraumatic Neck: normal to visual inspection CVS: S1, S2, RRR Resp: crackles diffuse Chest: non tender GI: soft, non tender, non distended : no CVA tenderness Skin: no rashes Extremities: no edema Neuro: Oriented X3, grossly intact Psych: cooperative, flat Assessment and Plan (1) Pneumonia: Status: Acute (2) Pulmonary fibrosis: Status: Acute 80M pmh pulmonary fibrosis, dysphagia, bipolar, coming from inpatient psychiatry after episode of confusion, fever, hypotension, tachypnea, found to have aspiration pneumonia metabolic encephalopathy and sepsis (POA) due to aspiration pneumonia hypotension not related to severe sepsis rocephin, doxy continue lead systems developer threpary ? change in modified diet steroids monitor inpatient follow up cultures o2 for saturation >91 bipolar continue psych regimen
[2020-12-27 10:06] VITALS: BP 114/59; PULSE 72; RESP 24; TEMP 36.4; O2SAT 94
[2020-12-27] MEDS: 0.9 % Sodium Chloride 1,000 ML 100 ML IVCONT ×2 (10:16→19:45)
[2020-12-27] MEDS: 0.9 % Sodium Chloride Flush 3 ML SYRINGE IVFLUSH (10:19)
[2020-12-27] MEDS: Hydrocortisone Sod Succ/PF 100 MG VIAL 25 MG IVPUSH ×3 (11:07→23:46)
[2020-12-27] MEDS: Doxycycline Hyclate 100 MG in 0.9 % Sodium Chloride 250 ML 166.67 MG IV ×2 (11:08→19:45)
[2020-12-27] MEDS: Enoxaparin Sodium 40 MG/0.4 ML SYRINGE SUBCUT (11:15)
[2020-12-27 13:07] VITALS: O2SAT 95
[2020-12-27 13:15] LABS: ABG Base Excess 2.4 mmol/L; ABG HCO3 26 mmol/L (22-26); ABG pCO2 41 mmHg (32-45); ABG pCO2 TC 40 mmHg (32-45); ABG pH 7.42 (7.35-7.45); ABG pH TC 7.43 (7.35-7.45); ABG pO2 74 mmHg (83-108); ABG pO2 TC 71 (83-108)
--- NOTE | 2020-12-27 13:16 | PC.NURSE ---
Pt. arrived on stretcher from M5, A+Ox3, denies pain, OOB with 1 assist, very unsteady gait, NS @ 100mL/hr via IV in L a/c, IV Doxy given as ordered, pt. NPO pending swallow eval, 24 hour urine was sent down from M5 but was not on ice, per lab- collection needed to be discarded, new 24 hour urine to be started, pt. resting in bed, call melgar in reach, bed alarm on for safety
[2020-12-27 14:06] LABS: ABG Refer to POC result
[2020-12-27 14:57] VITALS: BP 96/60; PULSE 69; RESP 20; TEMP 36.4; O2SAT 92
[2020-12-27 19:34] VITALS: BP 106/63; PULSE 76; RESP 20; TEMP 36.7; O2SAT 94
[2020-12-27] MEDS: HYDROmorphone HCl 0.5 MG/0.5 ML SYRINGE 0.25 MG IVPUSH (20:25)
[2020-12-28] VITALS (7 sets, daily range): BP systolic 90–133; BP diastolic 54–76; PULSE 72–85; RESP 16–20; TEMP 36.3–36.7; O2SAT 91–96; BMI 19.5
--- NOTE | 2020-12-28 00:32 | MHC.PIE ---
p; bp 90/57. note; pt admitted with hypotention (BP 70's in ed), pt b/p has been soft since admission i; dr sterling notifed e; will cont to monitor
[2020-12-28 04:34] LABS: MANUAL DIFF FLAG NO
[2020-12-28 04:43] LABS: Basophils Percent Auto 0.2 % (0-2); Hematocrit 27.6 % (42-52); Hemoglobin 9.3 g/dl (14.0-18.0); Imm Gran Abs Auto 0.05 X10*3/uL (0.00-0.03); Imm Gran Pct Auto 0.4 % (0.0-0.4); Lymphocytes Absolute Auto 1.1 X10*3/uL (1.2-4.9); Lymphocytes Percent Auto 8.7 % (20-40); Mean Corpuscular HGB Conc 33.7 g/dl (31.0-36.0); Mean Corpuscular Hemoglobin 31.6 pg (27.0-33.0); Mean Corpuscular Volume 93.9 fL (80-98); Mean Platelet Volume 11.2 fL (9.4-12.4); Monocytes Absolute Auto 0.6 X10*3/uL (0.1-1.2); Monocytes Percent Auto 4.5 % (2-11); Neutrophils Absolute Auto 10.8 X10*3/uL (2.0-8.3); Neutrophils Percent Auto 86.2 % (45-73); Platelet Count 209 X10*3/uL (160-400); Red Blood Count 2.94 X10*6/uL (4.60-5.80); Red Cell Distribution Width 15.2 % (11.0-16.0); White Blood Count 12.6 X10*3/uL (4.8-10.8)
[2020-12-28 05:08] LABS: Anion Gap 16 (12-20); Blood Urea Nitrogen 18 mg/dL (9-16); Calcium 8.1 mg/dL (8.4-10.2); Carbon Dioxide 23 mmol/L (22-29); Chloride 100 mmol/L (96-108); Estimated Glomerular Filt Rate > 60; Glucose Random 98 mg/dL (60-115); Potassium 4.6 mmol/L (3.3-5.1); Sodium 134 mmol/L (135-145)
[2020-12-28] MEDS: cefTRIAXone sodium 1 GM in 0.9 % Sodium Chloride 50 ML IV (05:18)
[2020-12-28] MEDS: Enoxaparin Sodium 40 MG/0.4 ML SYRINGE SUBCUT (09:06)
[2020-12-28] MEDS: Thiamine HCL 200 MG/2 ML VIAL 100 MG IVPUSH (09:06)
[2020-12-28] MEDS: Hydrocortisone Sod Succ/PF 100 MG VIAL 25 MG IVPUSH ×2 (09:07→18:43)
[2020-12-28] MEDS: Doxycycline Hyclate 100 MG in 0.9 % Sodium Chloride 250 ML 166.67 MG IV ×2 (09:07→20:15)
--- NOTE | 2020-12-28 11:34 | HO.PM.IMPN ---
Subjective Subjective Date of Service: 12/28/20 Interval History: feeling better today, more alert Cardiovascular Cardiovascular: Reports no additional cardiovascular complaints Gastrointestinal Gastrointestinal: Reports no additional gastrointestinal complaints Physical Exam Vital Signs: Vital Signs: Last Vital Signs Temp 97.5 F 12/28/20 07:54 Pulse 78 12/28/20 07:54 Resp 18 12/28/20 07:54 BP 104/68 12/28/20 07:54 Pulse Ox 95 12/28/20 07:54 Body Mass Index 19.5 General: AO X 3, looks significantly improved from yesterday, still overall frail looking Resp: Crackles CVS: S1,S2,RRR GI: soft, non tender, non distended Neuro: motor grossly intact Psych: appropriate affect Objective Data Current Medications Generic Name Dose Route Start Last Admin Trade Name Freq PRN Reason Stop Dose Admin Acetaminophen 650 mg 12/27/20 08:57 Acetaminophen 325 Mg Tablet PO Q6H PRN Pain, Mild (Pain Scale 1-3) Albuterol/Ipratropium 3 ml 12/27/20 09:01 Albuterol/Iprat 2.5/0.5mg 3 Ml Ampul.Neb INHALE Q4H PRN sob Brexpiprazole 1.5 mg 12/28/20 09:00 12/28/20 08:07 Brexpiprazole 1 Mg Tablet PO Not Given DAILY DOMINICK Budesonide 2 puff 12/27/20 20:00 12/28/20 10:39 Budesonide 180 Mcg Aer.Pow.Ba INHALE Not Given RBID DOMINICK Enoxaparin Sodium 40 mg 12/27/20 09:00 12/28/20 09:06 Enoxaparin Sodium 40 Mg/0.4 Ml Syringe SUBCUT 40 mg Q24H DOMINICK Administration Hydrocortisone Sodium Succinate 25 mg 12/27/20 09:00 12/28/20 09:07 Hydrocortisone Sod Succ/Pf 100 Mg Vial IVPUSH 25 mg Q8H DOMINICK Administration Ceftriaxone Sodium 1 gm/ 50 mls @ 100 mls/hr 12/28/20 06:00 12/28/20 05:48 Sodium Chloride IV Infused Q24H DOMINICK Infusion Doxycycline Hyclate 100 mg/ 250 mls @ 166.67 mls/hr 12/27/20 09:00 12/28/20 10:42 Sodium Chloride IV Infused Q12H [facility]INICK Infusion Lorazepam 0.5 mg 12/27/20 09:01 Lorazepam 0.5 Mg Tablet PO BEDTIME PRN anxiety Pat Own Med ( 1 each 12/27/20 21:00 12/28/20 08:07 Nintedanib 150 Mg) PO Not Given BID DOMINICK Omeprazole 40 mg 12/28/20 06:30 12/28/20 05:21 Omeprazole 40 Mg Capsule. PO Not Given DAILY@0630 DOMINICK Quetiapine Fumarate 12.5 mg 12/27/20 21:00 12/27/20 19:46 Quetiapine Fumarate 25 Mg Tablet PO Not Given BEDTIME DOMINICK Sodium Chloride 3 ml 12/27/20 16:00 12/28/20 08:33 0.9 % Sodium Chloride Flush 3 Ml Syringe IVFLUSH Not Given QSHIFT DOMINICK Thiamine HCl 100 mg 12/28/20 09:00 12/28/20 09:06 Thiamine Hcl 200 Mg/2 Ml Vial IVPUSH 100 mg DAILY DOMINICK Administration Labs CBC & Chem 7: 12/28/20 04:00 12/28/20 04:00 Assessment and Plan (1) Swallowing dysfunction: Status: Acute Assessment and Plan: 80M pmh pulmonary fibrosis, dysphagia, bipolar, coming from inpatient psychiatry after episode of confusion, fever, hypotension, tachypnea, found to have aspiration pneumonia metabolic encephalopathy and sepsis (POA) due to aspiration pneumonia complicated by hypotension encephalopathy, sepsis, and hypotension now resolved bp still on lower side thoough despite negative screening previously, still question some level of adrenal insufficiency as patient seems to have responded well to solucortef and had low NA, high K, may need ACTH stimulation test at some point continue rocephin, doxy for aspiration no growth so far on cultures PUBLIC HOUSING MANAGER following, continue pureed and nectar thick liquids thiamine defeciency could be contributing to above started on thiamine 100mcg iv daily bipolar continue psych regimen, will need BHN eval prior to discharge
--- NOTE | 2020-12-28 12:47 | MHC.SL.SWA ---
Speech Pathologist Impression: Risk of Aspiration Oralpharyngeal Dysphagia Risk of Aspiration Due to: History of Pneumonia Dysphasia Diet Status: Downgrade Liquid Consistency and Strategies for Safe Swallow: Liquid Intake Recommendation: [place] Thick Liquid Intake Strategies: Small Sips No Straws Double Swallow Solid Food Consistency: Dietary Recommendations: Pureed (NDD1) Additional Modifications to Solid Foods: Recommend soft solids at this time as precaution due to patient's fatigue when eating and concern for pneumonia. Oral Medication Intake: Whole with Puree Compensatory Strategies and Precautions to be Taken for Safe Swallow: Sitting Upright (90 deg) Double Swallow Menselsohn Maneuver No Straw Liquids from Cup Small Bites and Sips Alternate Liquids/Solids Rate of Ingestion Change Supervision While Eating and Drinking for Safe Swallow: Total Supervision (1:1) Foods to Avoid: Pt stated that softer foods are easier for him to consume due to increased fatigue. Swallowing Recommended Treatments: Pharyngeal Resistive Exer Compens. Strategy Educat. Recommendation for Speech: Outpatient Speech Therapy Inpatient Speech Therapy Speech Therapy through [facility] Comment: Please refer to full MBSS report from 12/10/20. Patient is now admitted to [facility] floor due to LLL infiltrate. Concern for aspiration pneumonia. Patient was re-evaluated at bedside on 12/28/20. Frequency/Duration: Daily during inpatient stay to monitor tolerance of PO, review compensatory strategies, and complete pharyngeal strengthening exercises. Timeline to reassess: 3 months Rn Medical Surgical Clinican/Clinical Fellow: No Supervisory Statement: I have reviewed and agree with the student/clinical fellow's documentation: N/A Speech Language Pathologist: Smitha Rodríguez M.A., CCC-DATA MANAGER
[2020-12-28] MEDS: 0.9 % Sodium Chloride Flush 3 ML SYRINGE IVFLUSH (15:50)
--- NOTE | 2020-12-28 15:54 | MHC.CM.PN ---
CM MET WITH PT AND WHO WAS AT BEDSIDE. SHE REPORTS THE PT WAS ON M5 RECEIVING ECT PRIOR TO MED ADMIT. SHE AND PT HOPE HE WILL RETURN TO M5 TO RESUME TREATMENT UPON MEDICAL DC. PT LIVES AT HOME WITH AND IS FUNCTIONALLY INDEPENDENT PT HAS A CANE BUT USUALLY DOES NOT NEED IT, HOWEVER THEY REPORT HE IS USING A WALKER ON M5. PT HAS A HCP AND PCP LISTED CURRENT DC PLAN IS HOME VS RETURN TO M5 TRANSPORT TBD BY DISPO
[2020-12-28] MEDS: Acetaminophen 325 MG TABLET 650 MG PO (16:00)
[2020-12-28 16:35] LABS: Creatinine, mg/dL 74.46
[2020-12-28 17:44] LABS: Creatinine, 24Hr Urine 0.6 G/Day (1.0-2.0); Sodium 24 Hr Urine 58.7 mmol/Day (40-220); Total Volume 24 Hour Urine 850 mL
[2020-12-28] MEDS: Budesonide 180 MCG AER.POW.BA 2 PUFF INHALE (19:02)
[2020-12-28] MEDS: QUEtiapine Fumarate 25 MG TABLET 12.5 MG PO (20:14)
[2020-12-28] MEDS: LORazepam 0.5 MG TABLET PO (20:25)
[2020-12-29 03:42] VITALS: BP 104/61; PULSE 70; RESP 20; TEMP 36.9; O2SAT 94
[2020-12-29] MEDS: 0.9 % Sodium Chloride Flush 3 ML SYRINGE IVFLUSH ×4 (05:46→20:08)
[2020-12-29] MEDS: Omeprazole 40 MG CAPSULE.DR PO (06:01)
[2020-12-29] MEDS: cefTRIAXone sodium 1 GM in 0.9 % Sodium Chloride 50 ML IV (06:01)
[2020-12-29 06:45] LABS: MANUAL DIFF FLAG NO
[2020-12-29 06:55] LABS: Basophils Percent Auto 0.2 % (0-2); Eosinophils Percent Auto 0.2 % (0-4); Hematocrit 26.7 % (42-52); Hemoglobin 9.2 g/dl (14.0-18.0); Imm Gran Abs Auto 0.04 X10*3/uL (0.00-0.03); Imm Gran Pct Auto 0.3 % (0.0-0.4); Lymphocytes Absolute Auto 2.2 X10*3/uL (1.2-4.9); Lymphocytes Percent Auto 16.9 % (20-40); Mean Corpuscular HGB Conc 34.5 g/dl (31.0-36.0); Mean Corpuscular Hemoglobin 31.8 pg (27.0-33.0); Mean Corpuscular Volume 92.4 fL (80-98); Monocytes Absolute Auto 1.1 X10*3/uL (0.1-1.2); Monocytes Percent Auto 8.3 % (2-11); Neutrophils Absolute Auto 9.8 X10*3/uL (2.0-8.3); Neutrophils Percent Auto 74.1 % (45-73); Platelet Count 238 X10*3/uL (160-400); Red Blood Count 2.89 X10*6/uL (4.60-5.80); Red Cell Distribution Width 15.3 % (11.0-16.0); White Blood Count 13.3 X10*3/uL (4.8-10.8)
[2020-12-29 07:14] LABS: Alanine Aminotransferase 24 U/L (0-40); Albumin Level 2.5 g/dL (3.5-5.0); Alkaline Phosphatase 94 U/L (39-117); Anion Gap 11 (12-20); Aspartate Amino Transferase 22 U/L (5-37); Bilirubin Direct 0.2 mg/dL (0.0-0.5); Bilirubin Total 0.5 mg/dL (0.0-1.0); Blood Urea Nitrogen 18 mg/dL (9-16); Calcium 8.1 mg/dL (8.4-10.2); Carbon Dioxide 26 mmol/L (22-29); Chloride 103 mmol/L (96-108); Estimated Glomerular Filt Rate > 60; Glucose Fasting 90 mg/dL (60-99); Magnesium 1.9 mg/dL (1.6-2.6); Potassium 4.2 mmol/L (3.3-5.1); Sodium 136 mmol/L (135-145); Total Protein 5.3 g/dL (6.5-8.0)
[2020-12-29 07:44] VITALS: BP 137/81; PULSE 87; RESP 22; TEMP 36.7; O2SAT 93
[2020-12-29] MEDS: Brexpiprazole 1 MG TABLET 1.5 MG PO (08:26)
[2020-12-29] MEDS: Thiamine HCL 200 MG/2 ML VIAL 100 MG IVPUSH (08:28)
[2020-12-29] MEDS: Hydrocortisone Sod Succ/PF 100 MG VIAL 25 MG IVPUSH (08:29)
[2020-12-29] MEDS: Enoxaparin Sodium 40 MG/0.4 ML SYRINGE SUBCUT (08:30)
[2020-12-29] MEDS: Doxycycline Hyclate 100 MG in 0.9 % Sodium Chloride 250 ML 166.7 MG IV (08:34)
--- NOTE | 2020-12-29 09:43 | P.CDIC_ITS ---
CDI Concurrent Query Service Date: 12/29/20 Documentation Clarification: Please clarify if you are treating a proba ble/suspected/likely or confirmed: Malnutrition, mild, moderate or severe Underweight Please specify if known or other PLEASE DO NOT DELETE/MODIFY EXISTING CONTENT Additional information is needed in order to code to the highest accuracy and appropriate Severity of Illness (SOI). Please clarify the information noted below in your progress notes and discharge summary. Risk Factors/Clinical Indicators/Treatments On Therapeutic diet BMI 19.5 Albumin 2.5 Total protein 5.3 lethargic, frail looking, swallow dysfunction, ill appearing CDS: Mary Leong CCS, CDIS Contact Number: [phone] Please Review the information above and exercise your independent professional judgment in responding to the query. If you concur, pleas document in the PROGRESS NOTES and DISCHARGE SUMMARY. If you do not agree with the query, please document in the query above. THIS QUERY IS PART OF THE PERMANENT MEDICAL RECORD
[2020-12-29 11:56] VITALS: BP 128/66; PULSE 66; RESP 20; TEMP 36.3; O2SAT 94
--- NOTE | 2020-12-29 13:08 | P.PNIM_ITS ---
Subjective Subjective Date of Service: 12/29/20 Interval History: cough Cardiovascular Cardiovascular: Reports no additional cardiovascular complaints Gastrointestinal Gastrointestinal: Reports no additional gastrointestinal complaints Physical Exam Vital Signs: Vital Signs: Last Vital Signs Temp 97.4 F 12/29/20 11:56 Pulse 66 12/29/20 11:56 Resp 20 12/29/20 11:56 BP 128/66 12/29/20 11:56 Pulse Ox 94 12/29/20 11:56 Body Mass Index 19.5 General: AO X 3, looks significantly improved from admission, still overall frail looking Resp: Crackles CVS: S1,S2,RRR GI: soft, non tender, non distended Neuro: motor grossly intact Psych: appropriate affect Objective Data Current Medications Generic Name Dose Route Start Last Admin Trade Name Freq PRN Reason Stop Dose Admin Acetaminophen 650 mg 12/27/20 08:57 12/28/20 16:00 Acetaminophen 325 Mg Tablet PO 650 mg Q6H PRN Administration Pain, Mild (Pain Scale 1-3) Albuterol/Ipratropium 3 ml 12/27/20 09:01 Albuterol/Iprat 2.5/0.5mg 3 Ml Ampul.Neb INHALE Q4H PRN sob Brexpiprazole 1.5 mg 12/28/20 09:00 12/29/20 08:26 Brexpiprazole 1 Mg Tablet PO 1.5 mg DAILY DOMINICK Administration Budesonide 2 puff 12/27/20 20:00 12/28/20 19:02 Budesonide 180 Mcg Aer.Pow.Ba INHALE 2 puff RBID DOMINICK Administration Dexamethasone 2 mg 12/30/20 09:00 Dexamethasone 2 Mg Tablet PO DAILY DOMINICK Enoxaparin Sodium 40 mg 12/27/20 09:00 12/29/20 08:30 Enoxaparin Sodium 40 Mg/0.4 Ml Syringe SUBCUT 40 mg Q24H DOMINICK Administration Ceftriaxone Sodium 1 gm/ 50 mls @ 100 mls/hr 12/28/20 06:00 12/29/20 06:32 Sodium Chloride IV Infused Q24H DOMINICK Infusion Doxycycline Hyclate 100 mg/ 250 mls @ 166.67 mls/hr 12/27/20 09:00 12/29/20 10:31 Sodium Chloride IV Infused Q12H DOMINICK Infusion Lorazepam 0.5 mg 12/27/20 09:01 12/28/20 20:25 Lorazepam 0.5 Mg Tablet PO 0.5 mg BEDTIME PRN Administration anxiety Pat Own Med ( 1 each 12/27/20 21:00 12/29/20 08:25 Nintedanib 150 Mg) PO 1 each BID DOMINICK Administration Omeprazole 40 mg 12/28/20 06:30 12/29/20 06:01 Omeprazole 40 Mg Capsule. PO 40 mg DAILY@0630 DOMINICK Administration Quetiapine Fumarate 12.5 mg 12/27/20 21:00 12/28/20 20:14 Quetiapine Fumarate 25 Mg Tablet PO 12.5 mg BEDTIME DOMINICK Administration Sodium Chloride 3 ml 12/27/20 16:00 12/29/20 08:31 0.9 % Sodium Chloride Flush 3 Ml Syringe IVFLUSH 3 ml QSHIFT DOMINICK Administration Thiamine HCl 100 mg 12/28/20 09:00 12/29/20 08:28 Thiamine Hcl 200 Mg/2 Ml Vial IVPUSH 100 mg DAILY DOMINICK Administration Labs CBC & Chem 7: 12/29/20 05:55 12/29/20 05:55 Assessment and Plan (1) Swallowing dysfunction: Status: Acute Assessment and Plan: 80M pmh pulmonary fibrosis, dysphagia, bipolar, coming from inpatient psychiatry after episode of confusion, fever, hypotension, tachypnea, found to have aspiration pneumonia metabolic encephalopathy and sepsis (POA) due to aspiration pneumonia complicated by hypotension encephalopathy, sepsis, and hypotension now resolved despite negative screening previously, still question some level of adrenal insufficiency as patient seems to have responded well to solucortef and had low NA, high K, may need ACTH stimulation test at some point, will therefore, change from solucortef to decadron 2mg daily. continue rocephin, doxy for aspiration no growth so far on cultures [employer] following, continue pureed and nectar thick liquids thiamine defeciency could be contributing to above started on thiamine 100mcg iv daily bipolar continue psych regimen, will need BHN eval prior to discharge
[2020-12-29 15:18] VITALS: BP 138/68; PULSE 66; RESP 19; TEMP 36.5; O2SAT 95
[2020-12-29 19:28] VITALS: BP 150/80; PULSE 71; RESP 19; TEMP 36.6; O2SAT 94
[2020-12-29] MEDS: QUEtiapine Fumarate 25 MG TABLET 12.5 MG PO (20:06)
[2020-12-29] MEDS: Doxycycline Hyclate 100 MG in 0.9 % Sodium Chloride 250 ML 166.67 MG IV (20:08)
[2020-12-29] MEDS: LORazepam 0.5 MG TABLET PO (20:15)
[2020-12-29] MEDS: Budesonide 180 MCG AER.POW.BA 2 PUFF INHALE (21:55)
[2020-12-29] MEDS: Acetaminophen 325 MG TABLET 650 MG PO (22:08)
--- NOTE | 2020-12-29 23:31 | PM.EVENT ---
Event Note Date of Service: 12/29/20 Event Note: Pt seen and examined D/w Pt and family D/w medical team 80M pmh pulmonary fibrosis, dysphagia, bipolar, coming from inpatient psychiatry after episode of confusion, fever, hypotension, tachypnea, found to have aspiration pneumonia ? Of adrenal insufficiency Pt on Hydrocortisone Suggest change that to Dexamethasone 2 mg daily Will suggest ACTH stim test as an outpt Endocrine eval as out pt If pt is in house fora few days can do it in the hospital Thx
[2020-12-30] VITALS: BP 127/60; PULSE 69; RESP 18; TEMP 36.4
[2020-12-30 04:00] VITALS: BP 142/84; PULSE 75; RESP 20; TEMP 36.8; O2SAT 96
[2020-12-30] MEDS: Omeprazole 40 MG CAPSULE.DR PO (05:46)
[2020-12-30] MEDS: Acetaminophen 325 MG TABLET 650 MG PO ×2 (05:47→18:42)
[2020-12-30] MEDS: cefTRIAXone sodium 1 GM in 0.9 % Sodium Chloride 50 ML IV (05:52)
[2020-12-30 06:51] LABS: MANUAL DIFF FLAG NO
[2020-12-30 06:57] LABS: Basophils Percent Auto 0.4 % (0-2); Eosinophils Absolute Auto 0.3 X10*3/uL (0.0-0.4); Eosinophils Percent Auto 2.5 % (0-4); Hematocrit 28.4 % (42-52); Hemoglobin 9.8 g/dl (14.0-18.0); Imm Gran Abs Auto 0.04 X10*3/uL (0.00-0.03); Imm Gran Pct Auto 0.4 % (0.0-0.4); Lymphocytes Absolute Auto 2.6 X10*3/uL (1.2-4.9); Lymphocytes Percent Auto 23.5 % (20-40); Mean Corpuscular HGB Conc 34.5 g/dl (31.0-36.0); Mean Corpuscular Hemoglobin 32.1 pg (27.0-33.0); Mean Corpuscular Volume 93.1 fL (80-98); Monocytes Absolute Auto 1.1 X10*3/uL (0.1-1.2); Monocytes Percent Auto 10.3 % (2-11); Neutrophils Percent Auto 62.9 % (45-73); Platelet Count 256 X10*3/uL (160-400); Red Blood Count 3.05 X10*6/uL (4.60-5.80); Red Cell Distribution Width 15.5 % (11.0-16.0)
[2020-12-30 07:32] LABS: Anion Gap 9 (12-20); Blood Urea Nitrogen 15 mg/dL (9-16); Calcium 8.3 mg/dL (8.4-10.2); Carbon Dioxide 28 mmol/L (22-29); Chloride 100 mmol/L (96-108); Creatinine Clr Calc Pharmacy 58.3; Estimated Glomerular Filt Rate > 60; Glucose Fasting 82 mg/dL (60-99); Potassium 4.3 mmol/L (3.3-5.1); Sodium 133 mmol/L (135-145)
[2020-12-30 07:39] VITALS: BP 124/75; PULSE 63; RESP 20; TEMP 36.7; O2SAT 95
[2020-12-30] MEDS: Brexpiprazole 1 MG TABLET 1.5 MG PO (07:52)
[2020-12-30] MEDS: dexAMETHasone 2 MG TABLET PO (07:52)
[2020-12-30] MEDS: 0.9 % Sodium Chloride Flush 3 ML SYRINGE IVFLUSH ×3 (07:54→20:22)
[2020-12-30] MEDS: Thiamine HCL 200 MG/2 ML VIAL 100 MG IVPUSH (07:54)
[2020-12-30] MEDS: Enoxaparin Sodium 40 MG/0.4 ML SYRINGE SUBCUT (07:55)
[2020-12-30] MEDS: Doxycycline Hyclate 100 MG in 0.9 % Sodium Chloride 250 ML 166.6 MG IV ×2 (08:00→20:15)
--- NOTE | 2020-12-30 09:13 | P.CDIC_ITS ---
CDI Concurrent Query Service Date: 12/30/20 Documentation Clarification: Please clarify if you are treating a proba ble/suspected/likely or confirmed: Malnutrition, mild, moderate or severe Underweight Please specify if known Provider Response: Mild Protein-Calorie Malnutrition PLEASE DO NOT DELETE/MODIFY EXISTING CONTENT Additional information is needed in order to code to the highest accuracy and appropriate Severity of Illness (SOI). Please clarify the information noted below in your progress notes and discharge summary. Risk Factors/Clinical Indicators/Treatments Albumin 2.5 Total protein 5.3 On Therapeutic diet lethargic, frail looking, swallow dysfunction, ill appearing CDS: Mary Leong CCS, CDIS Contact Number: [phone] Please Review the information above and exercise your independent professional judgment in responding to the query. If you concur, pleas document in the PROGRESS NOTES and DISCHARGE SUMMARY. If you do not agree with the query, please document in the query above. THIS QUERY IS PART OF THE PERMANENT MEDICAL RECORD
--- NOTE | 2020-12-30 11:36 | MHC.CM.PN ---
Per ROUNDS discussion, Patient is medically cleared to return to [facility] to resume ECT, pending bed availability on that unit. CM will follow as needed.
[2020-12-30 12:00] VITALS: BP 122/80; PULSE 71; RESP 20; TEMP 36.1; O2SAT 95
--- NOTE | 2020-12-30 13:09 | P.PNIM_ITS ---
Subjective Subjective Date of Service: 12/30/20 Interval History: the patient was seen and evaluated this morning Laying in bed, feels comfortable overall was walking in the orr with the nurse on room air, Denies any fever, chills or shortness of breath No reported other overnight events. Systemic review: No fever, chills or weakness No chest pain, palpitation No shortness of breath still has mild coughing No abdominal pain, nausea or vomiting No urinary symptoms No any rash or wounds Physical Exam Vital Signs: Vital Signs: Last Vital Signs Temp 98.1 F 12/30/20 07:39 Pulse 63 12/30/20 07:39 Resp 20 12/30/20 07:39 BP 124/75 12/30/20 07:39 Pulse Ox 95 12/30/20 07:39 Body Mass Index 19.5 Const: Other: Constitutional : Alert, oriented, not in distress Neck : Normal inspection, Supple Cardiovascular : RRR, S1 S2, no lower extremity edema Respiratory : Fair bilateral air entry, no crackles, wheezes or rhonchi Gastrointestinal: soft, lax, Normal bowel sounds, Non tender Skin : Warm/Dry, No rash Neurological : Alert & oriented x3, No focal deficit Objective Data Current Medications Generic Name Dose Route Start Last Admin Trade Name Freq PRN Reason Stop Dose Admin Acetaminophen 650 mg 12/27/20 08:57 12/30/20 05:47 Acetaminophen 325 Mg Tablet PO 650 mg Q6H PRN Administration Pain, Mild (Pain Scale 1-3) Albuterol/Ipratropium 3 ml 12/27/20 09:01 Albuterol/Iprat 2.5/0.5mg 3 Ml Ampul.Neb INHALE Q4H PRN sob Brexpiprazole 1.5 mg 12/28/20 09:00 12/30/20 07:52 Brexpiprazole 1 Mg Tablet PO 1.5 mg DAILY DOMINICK Administration Budesonide 2 puff 12/27/20 20:00 12/29/20 21:55 Budesonide 180 Mcg Aer.Pow.Ba INHALE 2 puff RBID DOMINICK Administration Dexamethasone 2 mg 12/30/20 09:00 12/30/20 07:52 Dexamethasone 2 Mg Tablet PO 2 mg DAILY DOMINICK Administration Enoxaparin Sodium 40 mg 12/27/20 09:00 12/30/20 07:55 Enoxaparin Sodium 40 Mg/0.4 Ml Syringe SUBCUT 40 mg Q24H DOMINICK Administration Ceftriaxone Sodium 1 gm/ 50 mls @ 100 mls/hr 12/28/20 06:00 12/30/20 06:23 Sodium Chloride IV Infused Q24H DOMINICK Infusion Doxycycline Hyclate 100 mg/ 250 mls @ 166.67 mls/hr 12/27/20 09:00 12/30/20 10:25 Sodium Chloride IV Infused Q12H DOMINICK Infusion Lorazepam 0.5 mg 12/27/20 09:01 12/29/20 20:15 Lorazepam 0.5 Mg Tablet PO 0.5 mg BEDTIME PRN Administration anxiety Pat Own Med ( 1 each 12/27/20 21:00 12/30/20 07:57 Nintedanib 150 Mg) PO 1 each BID DOMINICK Administration Omeprazole 40 mg 12/28/20 06:30 12/30/20 05:46 Omeprazole 40 Mg Capsule. PO 40 mg DAILY@0630 DOMINICK Administration Quetiapine Fumarate 12.5 mg 12/27/20 21:00 12/29/20 20:06 Quetiapine Fumarate 25 Mg Tablet PO 12.5 mg BEDTIME DOMINICK Administration Sodium Chloride 3 ml 12/27/20 16:00 12/30/20 07:54 0.9 % Sodium Chloride Flush 3 Ml Syringe IVFLUSH 3 ml QSHIFT DOMINICK Administration Thiamine HCl 100 mg 12/28/20 09:00 12/30/20 07:54 Thiamine Hcl 200 Mg/2 Ml Vial IVPUSH 100 mg DAILY DOMINICK Administration Labs CBC & Chem 7: 12/30/20 06:05 12/30/20 06:05 Assessment and Plan (1) Swallowing dysfunction: Status: Acute Assessment and Plan: 80M pmh pulmonary fibrosis, dysphagia, bipolar, coming from inpatient psychiatry after episode of confusion, fever, hypotension, tachypnea, found to have aspiration pneumonia metabolic encephalopathy , sepsis, resolved aspiration pneumonia Patient has underlying swallowing problem continue rocephin, doxy for aspiration no growth so far on cultures [employer] following, continue pureed and nectar thick liquids question of adrenal insufficiency patient seems to have responded well to solucortef and had low NA, high K Will need need ACTH stimulation test as outpatient with nephrology Consider Endocrinology outpatient follow-up change from solucortef to decadron 2mg daily. thiamine defeciency could be contributing to above started on thiamine 100mcg iv daily bipolar continue psych regimen, will need BHN eval prior to discharge Plan for ECT therapy DVT PPX Lovenox
[2020-12-30 15:17] VITALS: BP 135/76; PULSE 70; RESP 20; TEMP 36.9; O2SAT 94
[2020-12-30] MEDS: LORazepam 0.5 MG TABLET PO ×2 (15:20→21:47)
[2020-12-30 19:02] VITALS: BP 149/72; PULSE 78; RESP 20; TEMP 36.9; O2SAT 94
[2020-12-30] MEDS: QUEtiapine Fumarate 25 MG TABLET 12.5 MG PO (20:13)
--- NOTE | 2020-12-30 21:45 | CONS_ITS ---
DATE OF SERVICE: 12/29/2020 REFERRING PHYSICIAN: Gabriel Marie MD REASON FOR CONSULTATION: Consult requested by Dr. Marie to evaluate and help in management of patient with history of hyponatremia and questionable possibility of adrenal insufficiency. The patient is a 80-year-old male with past medical history of depression, recent admission in November for aspiration pneumonia and hypotension, and transferred back to inpatient psychiatry for further treatment depression who was admitted to the hospital again with hypotension from the psych unit. Systolic blood pressures were in the 70s. There was no documented hypoxemia. He underwent CTA which did not show any PE, but there is chronic pulmonary fibrosis and new left lower lobe opacification. Hypotension was possibly secondary to sepsis and was given 500 mL of bolus. Fluid has improved his blood pressure. Renal consult has been requested as there is a question about adrenal insufficiency in this patient as he has had multiple episodes of hypotension with hyperkalemia and hyponatremia. The patient was seen by Dr. Soriano during the previous admissions. At the present time, the patient is resting in the chair and looks depressed and unable to take some food. PAST MEDICAL HISTORY: History of anemia; anxiety; bronchiectasis; CVA; chronic hyponatremia; chronic kidney disease, stage 3; degenerative arthritis; depression; history of ECT therapy in the past; history of bladder CA and hydrocele; and pulmonary fibrosis. FAMILY HISTORY: Father with colon CA. PAST SURGICAL HISTORY: The patient has history of bladder surgery. PERSONAL AND SOCIAL HISTORY: The patient never smoked. He uses marijuana at home, is retired. ALLERGIES: INCLUDE ALLERGIES TO SULFA AND ZOSTER VACCINE. MEDICATIONS: At home include Latuda, Ofev, Colace, lorazepam, mirtazapine, and quetiapine. Present inpatient medications were reviewed. PHYSICAL EXAMINATION: GENERAL: The patient is resting in the chair, awake, alert. VITAL SIGNS: Blood pressure was 128/66, pulse is 94, afebrile. HEENT: Shows pupils equal bilaterally. No jugular venous distention is noted. NECK: Supple. CARDIOVASCULAR SYSTEM: S1, S2 without rub. RESPIRATORY: Air entry decreased in bases bilaterally with crepitation. ABDOMEN: Soft, nontender. Bowel sounds normal. EXTREMITIES: Showed no edema. There is no peripheral cyanosis or clubbing. NEURO EXAM: Essentially nonfocal. LABS: Done today sodium 136, potassium 4.2, chloride 103, CO2 26, BUN 18, creatinine 0.81. Hemoglobin 9.2, hematocrit 26.7, WBC 13.3, platelets 238. IMPRESSION: 1. A 80-year-old male with hypotension, which is recurrent. Likely reason for hypotension, this patient is due to sepsis. He has had multiple episodes of hypotension with hyponatremia and hyperkalemia, and this raises the possibility of adrenal insufficiency. And according to the medical team, every time he gets steroid, he improves. I reviewed his medical record and cortisol level done 3 or 4 times consistently about 10.0. There is a remote possibility that the patient does have adrenal insufficiency, which needs to be ruled out at some point. 2. Mild chronic kidney disease, stage 2. 3. Hyponatremia which resolved. 4. Severe depression. 5. Sepsis/pneumonia. RECOMMENDATION: I had lengthy discussion with patient and patient . I also had a discussion with the hospitalist team. I suspect doing an ACTH stimulation test in this patient at some point is reasonable. He is presently on hydrocortisone and that will affect the ACTH stimulation test, and I discussed with the medical team and advised him to switch it over to dexamethasone at a small dose. We came up with a dose of 2 mg per day. I suggested the patient be discharged on this dose and after at least a few weeks, we can try doing an ACTH stimulation test. I recommend the patient to be followed up by Endocrinology as an outpatient. Thank you for allowing me to participate in medical management of the patient. MD ERIN Jerry/LOGAN / [id number]
--- NOTE | 2020-12-30 21:52 | PM.PNNEP ---
Subjective Subjective Date of Service: 12/30/20 Interval history: the patient was seen and evaluated Sitting up in the chair c/o cough Poor appetite Systemic review: No fever, chills or weakness No chest pain, palpitation No shortness of breath still has mild coughing No abdominal pain, nausea or vomiting No urinary symptoms No any rash or wounds Physical Exam Vital Signs: Vital Signs: Last Vital Signs Temp 98.5 F 12/30/20 19:02 Pulse 78 12/30/20 19:02 Resp 20 12/30/20 19:02 BP 149/72 H 12/30/20 19:02 Pulse Ox 94 12/30/20 19:02 Body Mass Index 19.5 Const: Other: Constitutional : Alert, oriented, not in distress Neck : Normal inspection, Supple Cardiovascular : RRR, S1 S2, no lower extremity edema Respiratory : Fair bilateral air entry, no crackles, wheezes or rhonchi Gastrointestinal: soft, lax, Normal bowel sounds, Non tender Skin : Warm/Dry, No rash Neurological : Alert & oriented x3, No focal deficit Objective Data Labs CBC & Chem 7: 12/30/20 06:05 12/30/20 06:05 Labs: Laboratory Results - last 24 hr 12/30/20 12/30/20 06:05 06:05 WBC 11.0 H RBC 3.05 L Hgb 9.8 L Hct 28.4 L MCV 93.1 MCH 32.1 MCHC 34.5 RDW 15.5 Plt Count 256 MPV 11.0 Immature Gran % (Auto) 0.4 Neut % (Auto) 62.9 Lymph % (Auto) 23.5 [place] % (Auto) 10.3 Eos % (Auto) 2.5 Baso % (Auto) 0.4 Lymph # (Auto) 2.6 [place] # (Auto) 1.1 Eos # (Auto) 0.3 Baso # (Auto) 0.0 Abs Immat Gran (auto) 0.04 H Absolute Neuts (auto) 7.0 Absolute Nucleated RBC 0.000 Nucleated RBC % (auto) 0.0 Sodium 133 L Potassium 4.3 Chloride 100 Carbon Dioxide 28 Anion Gap 9 L BUN 15 Creatinine 0.82 Estim Creat Clear Calc 58.3 Estimated GFR > 60 Fasting Glucose 82 Calcium 8.3 L Assessment & Plan Assessment and plan (1) Swallowing dysfunction: Status: Acute Assessment and Plan: 80M pmh pulmonary fibrosis, dysphagia, bipolar, coming from inpatient psychiatry after episode of confusion, fever, hypotension, tachypnea, found to have aspiration pneumonia 1. A 80-year-old male with hypotension, which is recurrent. Likely reason for hypotension, this patient is due to sepsis. He has had multiple episodes of hypotension with hyponatremia and hyperkalemia, and this raises the possibility of adrenal insufficiency. And according to the medical team, every time he gets steroid, he improves. I reviewed his medical record and cortisol level done 3 or 4 times consistently about 10.0. There is a remote possibility that the patient does have adrenal insufficiency, which needs to be ruled out at some point. 2. Mild chronic kidney disease, stage 2. 3. Hyponatremia which resolved. 4. Severe depression. 5. Sepsis/pneumonia. RECOMMENDATION: An ACTH stimulation test in this patient at some point is reasonable. Off Hydrocortisone On dexamethasone at a small dose. We came up with a dose of 2 mg per day. I suggested the patient be discharged on this dose and after at least a few weeks, we can try doing an ACTH stimulation test. I recommend the patient to be followed up by Endocrinology as an outpatient. Thank you for allowing me to participate in medical management of the patient. Time Spent With Patient Time: Total time spent is greater than 50% in coordination of care (as documented) at patient's floor/unit and/or counseling patient:
[2020-12-31] VITALS: BP 119/68; PULSE 70; RESP 18; TEMP 36.8; O2SAT 98
[2020-12-31 03:38] VITALS: BP 142/90; PULSE 65; RESP 20; TEMP 36.6; O2SAT 96
[2020-12-31] MEDS: Omeprazole 40 MG CAPSULE.DR PO (05:32)
[2020-12-31] MEDS: cefTRIAXone sodium 1 GM in 0.9 % Sodium Chloride 50 ML IV (05:33)
[2020-12-31 06:59] LABS: Hematocrit 30.4 % (42-52); Hemoglobin 10.5 g/dl (14.0-18.0); Mean Corpuscular HGB Conc 34.5 g/dl (31.0-36.0); Mean Corpuscular Hemoglobin 31.7 pg (27.0-33.0); Mean Corpuscular Volume 91.8 fL (80-98); Platelet Count 286 X10*3/uL (160-400); Red Blood Count 3.31 X10*6/uL (4.60-5.80); Red Cell Distribution Width 14.9 % (11.0-16.0); White Blood Count 11.6 X10*3/uL (4.8-10.8)
[2020-12-31 07:16] LABS: Anion Gap 13 (12-20); Blood Urea Nitrogen 18 mg/dL (9-16); Calcium 8.7 mg/dL (8.4-10.2); Carbon Dioxide 26 mmol/L (22-29); Chloride 101 mmol/L (96-108); Creatinine Clr Calc Pharmacy 58.3; Estimated Glomerular Filt Rate > 60; Glucose Random 92 mg/dL (60-115); Potassium 4.6 mmol/L (3.3-5.1); Sodium 135 mmol/L (135-145)
[2020-12-31 07:25] VITALS: BP 148/93; PULSE 68; RESP 20; TEMP 36.6; O2SAT 94
--- NOTE | 2020-12-31 09:58 | MHC.CM.PN ---
DP Notified by Herlinda Herring anticipates having a bed for the Pt today. Notified US and RN. CM will follow until transferred.
[2020-12-31] MEDS: 0.9 % Sodium Chloride Flush 3 ML SYRINGE IVFLUSH (10:08)
[2020-12-31] MEDS: Brexpiprazole 1 MG TABLET 1.5 MG PO (10:09)
[2020-12-31] MEDS: dexAMETHasone 2 MG TABLET PO (10:10)
[2020-12-31] MEDS: Enoxaparin Sodium 40 MG/0.4 ML SYRINGE SUBCUT (10:10)
[2020-12-31] MEDS: Acetaminophen 325 MG TABLET 650 MG PO (10:12)
[2020-12-31] MEDS: Doxycycline Hyclate 100 MG in 0.9 % Sodium Chloride 250 ML 166.6 MG IV (10:13)
[2020-12-31] MEDS: Budesonide 180 MCG AER.POW.BA 2 PUFF INHALE (10:30)
--- NOTE | 2020-12-31 11:36 | PC.NURSE ---
patient with flushed face. temp 98.0 and patient states he feels fine. resp up a bit to 28. Dr. Lewis notified.
[2020-12-31 11:47] VITALS: BP 150/79; PULSE 78; RESP 24; TEMP 36.8; O2SAT 96
--- NOTE | 2020-12-31 12:05 | PM.DS ---
DS: Providers Provider Date of Service: 12/31/20 Date of admission: 12/27/20 08:57 Primary care physician: Mary Cyr NP Consults: 12/29/20 12:12 Consult to Nephrology Routine Consulting Provider: Kiran Burnette Reason for consultation: was following for hyponatremia, ?adrenal insufficiency DS: Diagnosis Discharge Diagnosis (1) Swallowing dysfunction: Status: Acute (2) Pneumonia: Status: Acute (3) Pulmonary fibrosis: Status: Acute (4) Bipolar I disorder with depression, severe: Status: Acute (5) Metabolic encephalopathy: Status: Acute (6) Hypotension: Status: Acute DS: Medications Discharge Medications Home Medications: Home Medications Medication Instructions Recorded Confirmed Latuda 1 tab PO DAILY 11/25/20 12/01/20 Ofev 150 mg PO BID 11/25/20 12/27/20 docusate sodium [Stool Softener] 1 cap PO BID PRN 11/25/20 12/27/20 lorazepam 1 tab PO BID PRN 11/25/20 12/27/20 mirtazapine 1 tab PO BEDTIME 11/25/20 12/27/20 ondansetron 1 tab PO Q8H PRN 11/25/20 12/27/20 quetiapine 37.5 mg PO BEDTIME 11/25/20 12/27/20 Previous Rx's Medication Instructions Recorded benzonatate [Tessalon Perles] 100 mg PO TID 4 Days #12 cap 12/04/20 dextromethorphan-guaifenesin 10 ml PO Q6H 7 Days #280 ml 12/04/20 famotidine 20 mg PO DAILY #30 tab 12/04/20 benzocaine-menthol [Cepacol Sore 1 haris MUCOUS MEMBRANE Q2H PRN #20 12/31/20 Throat (brenda-men)] ea brexpiprazole [Rexulti] 1.5 mg PO DAILY #1 tab 12/31/20 budesonide [Pulmicort Flexhaler] 2 inh INHALATION RBID #1 ea 12/31/20 dexamethasone 2 mg PO DAILY #1 tab 12/31/20 ipratropium-albuterol 3 ml INHALATION Q4H PRN #1 ml 12/31/20 omeprazole 40 mg PO DAILY@0630 #1 cap 12/31/20 quetiapine 12.5 mg PO BEDTIME #1 tab 12/31/20 thiamine mononitrate (vit B1) 100 mg PO DAILY #1 tab 12/31/20 DS: Summary Hospital Course Hospital Course: Admission note HPI 80M pmh depression and recent admission november 2020 for aspiration pneumonia with hypotension. patient had improved and went back to inpatient psychiatry for further treatment of his depression. patient has chronic aspiration with pulmonary fibrosis. patient is being followed by projector booth operator and currently on NDD3 with nectar thick liquids. patient continues to complain however, intermittently, of dysphagia, coughing. on night of admission, patient was noted to be confused and tachypneic. he was hypotensive with SBP in 70s. there was no documented hypoxia. patient underwent CTA which did not show PE, but did show chronic pulmonary fibrosis and new LLL opacity. lactate was 1.3 showing good perfusion, therefore, hypotension was not deemed to be secondary to severe sepsis and only 500cc bolus was given. patient's blood pressure did respond and his blood pressure at time of admission is in the 90s. Hospital course Aspiration pneumonia admitted to the hospital for metabolic encephalopathy and aspiration pneumonia with increase oxygen requirement. CTA showed left lower lobe infiltrate which was treated with IV antibiotics with good response as mentation improved back to baseline and he was weaned off the oxygen. blood cultures were negative. Patient has underlying swallowing problem which was evaluated by SHEEP AND WHEAT FARMER following, who recommended to continue pureed and nectar thick liquids which the patient have good tolerance. continue rocephin, doxycycline for 5 more days at discharge. To repeat CXR within 2-4 weeks to make sure resolution of infiltrates. Hypotension question of adrenal insufficiency Has lower readings of cortisol at 17 and seems to have responded well to solucortef as BP improved back to normal values. Evaluated by Dr Burnette from nephrology who will follow up with patient in clinic Will need need ACTH stimulation test as outpatient with nephrology Needs Endocrinology outpatient follow-up change from solucortef to decadron 2mg daily. To continue with that at discharged and to decide duration by nephrology. thiamine defeciency noticed to have low levels. started on thiamine 100mcg iv daily To continue with PO Thiamine at discharge bipolar continue psych regimen, will need BHN eval prior to discharge Patient will need ECT treatment at the psych unit. He is medically cleared to do the procedure at this point. Pressure ulcer stage 1 evaluated by wound care team. Plan to continue local measures and apply Barrier cream/moisturizer bid. Time Spent with Patient Time attestation: Total time spent providing and/or coordinating discharge services: Discharge coordination time: Greater than 30 minutes Physical Exam Vital Signs: Vital Signs: Last Vital Signs Temp 98.2 F 12/31/20 11:47 Pulse 78 12/31/20 11:47 Resp 24 H 12/31/20 11:47 BP 150/79 H 12/31/20 11:47 Pulse Ox 96 12/31/20 11:47 Body Mass Index 19.5 Const: Other: Constitutional : Alert, oriented, not in distress Neck : Normal inspection, Supple Cardiovascular : RRR, S1 S2, no lower extremity edema Respiratory : Fair bilateral air entry, left lower lobe crackles, wheezes or rhonchi Gastrointestinal: soft, lax, Normal bowel sounds, Non tender Skin : Warm/Dry, stage 1 pressure wound with no Neurological : Alert & oriented x3, No focal deficit DS: Data Data Completed and Pending Completed studies during hospitalization [Text1]: Procedures Other Electroconvulsive Therapy (11/25/20) Labs on day of discharge: Laboratory Results - last 24 hr 12/31/20 12/31/20 06:06 06:06 WBC 11.6 H RBC 3.31 L Hgb 10.5 L Hct 30.4 L MCV 91.8 MCH 31.7 MCHC 34.5 RDW 14.9 Plt Count 286 MPV 11.0 Absolute Nucleated RBC 0.000 Nucleated RBC % (auto) 0.0 Sodium 135 Potassium 4.6 Chloride 101 Carbon Dioxide 26 Anion Gap 13 BUN 18 H Creatinine 0.82 Estim Creat Clear Calc 58.3 Estimated GFR > 60 Random Glucose 92 Calcium 8.7 Discharge Plan Discharge Disposition: Xfer Other Referrals: Mary Cyr NP [Primary Care Provider] - 1 Week Discharge Medications: New ipratropium-albuterol 0.5 mg-3 mg(2.5 mg base)/3 mL Solution For Nebulization 3 ml inhalation Q4H PRN (Reason: sob) Qty: 1 RF: 0 quetiapine 25 mg Tablet 12.5 mg PO BEDTIME Qty: 1 RF: 0 Rexulti 1 mg Tablet 1.5 mg PO DAILY Qty: 1 RF: 0 omeprazole 40 mg Capsule,Delayed Release(Dr/Ec) 40 mg PO DAILY@0630 Qty: 1 RF: 0 dexamethasone 2 mg Tablet 2 mg PO DAILY Qty: 1 RF: 0 Pulmicort Flexhaler 180 mcg/actuation Aerosol Powdr Breath Activated 2 inh inhalation RBID Qty: 1 RF: 0 Cepacol Sore Throat (brenda-men) 15-3.6 mg Lozenge 1 haris mucous membrane Q2H PRN (Reason: Sore Throat) Qty: 20 RF: 0 thiamine mononitrate (vit B1) 100 mg Tablet 100 mg PO DAILY Qty: 1 RF: 0 Continued quetiapine 25 mg tablet 37.5 mg PO BEDTIME RF: 0 lorazepam 0.5 mg tablet 1 tab PO BID PRN (Reason: anxiety) RF: 0 docusate sodium [Stool Softener] 100 mg capsule 1 cap PO BID PRN (Reason: constipation) RF: 0 mirtazapine 15 mg tablet 1 tab PO BEDTIME RF: 0 ondansetron 4 mg tablet,disintegrating 1 tab PO Q8H PRN (Reason: nausea/vomiting) RF: 0 Latuda 20 mg tablet 1 tab PO DAILY RF: 0 Ofev 150 mg capsule 150 mg PO BID RF: 0 dextromethorphan-guaifenesin 10-100 mg/5 mL Syrup 10 ml PO Q6H 7 Days Qty: 280 RF: 0 famotidine 20 mg Tablet 20 mg PO DAILY Qty: 30 RF: 0 benzonatate [Tessalon Perles] 100 mg capsule 100 mg PO TID 4 Days Qty: 12 RF: 0 Discontinued azithromycin 500 mg tablet 500 mg PO DAILY 4 Days Qty: 4 RF: 0 cefuroxime axetil 500 mg tablet 500 mg PO BID Qty: 8 RF: 0 Discharge Orders: Discharge Order (Routine); Ordered 12/31/20 Ordered By: Wilbert Lewis Forms: Patient Portal Discharge page Care Plan Goals: Read below Health Concerns: Read below Plan of Treatment: Read below Assessment: Treated for pneumonia with IV antibiotics with good response. Weaned off the oxygen. To continue oral antibiotics. Evaluated by Nephrology for possible adrenal insufficiency. Started on oral dexamethasone with good response. To follow-up with Dr. Burnette from Nephrology as outpatient. To be transferred to Psychiatry unit to continue treatment for depression.
[2020-12-31] MEDS: Thiamine HCL 100 MG TABLET PO (12:37)
[2020-12-31] MEDS: Throat Lozenge, Medicated LOZENGE 1 LOZENGE MUCOUS MEM (12:37)
[2020-12-31 13:10] LABS: COVID-19 Test Negative (Negative)
[2020-12-31 15:13] VITALS: BP 131/79; PULSE 72; RESP 18; TEMP 36.4; O2SAT 95
== END 2020-12-31 15:06 | disposition other institution (70) | DRG 871 ==
PROVIDERS: Admitting Provider Internal Medicine; PCP Nurse Practitioner Family; Visit Provider Student in an Organized Health Care Education/Training Program
DX: A41.9 Sepsis, unspecified organism (principal); J69.0 Pneumonitis due to inhalation of food and vomit; G93.41 Metabolic encephalopathy; E51.9 Thiamine deficiency, unspecified; E44.1 Mild protein-calorie malnutrition; Z68.1 Body mass index [BMI] 19.9 or less, adult; E27.40 Unspecified adrenocortical insufficiency; F31.9 Bipolar disorder, unspecified; N18.2 Chronic kidney disease, stage 2 (mild); R13.10 Dysphagia, unspecified; J84.10 Pulmonary fibrosis, unspecified; Z20.822 Contact with and (suspected) exposure to COVID-19; Z88.2 Allergy status to sulfonamides; Z87.891 Personal history of nicotine dependence; Z79.899 Other long term (current) drug therapy
CPT/HCPCS: 36415; 36600; 80048; 80076; 83735; 84300; 85025; 85027; 87635; 92610; J0696; J1170; J1650; J3411; J8540

== ENCOUNTER 2020-12-31 15:36 | Inpatient (IN) | payer MEDICARE, OTHER, SELFPAY ==
--- NOTE | ~2020-12-31 | FL_ITS ---
EXAMINATION: XR BARIUM SWALLOW CLINICAL INFORMATION: There is aspiration COMPARISON: January 07, 2021 TECHNIQUE: Modified barium swallow with speech pathologist FINDINGS: Patient swallowed combination of materials from thin liquid and applesauce consistency. There is a large amount of retention of material within the vallecula. There is difficulty in clearing the vallecula. On all swallows there was laryngeal penetration present. Please refer to speech pathology report for details. FLUOROSCOPY TIME: 2.0 minutes DOSE AREA PRODUCT: 0.867 Gy-cm2 (root-centimeter squared) FL/FL barium swallow modified IMPRESSION: Vallecular retention with laryngeal penetration.
--- NOTE | ~2020-12-31 | CT_ITS ---
CT head/brain wo con CLINICAL INFORMATION: Reason for Exam Witnessed Fall to Floor COMPARISON: No prior CT scan available for comparison. TECHNIQUE: Department standard protocol. This CT examination was performed using dose optimization techniques as appropriate, variously including the following: *Automated exposure control *Adjustment of mA and/or kV according to patient size (this includes techniques or standardized protocols for targeted exams where dose is matched to indication/reason for exam; i.e. extremities or head) *Use of iterative reconstruction technique DLP: 616 mGy-cm FINDINGS: CEREBRAL HEMISPHERES: There is no evidence of intra-axial or extra-axial mass, hemorrhage or acute infarct. BRAIN PARENCHYMA: Deep white matter and paraventricular hypoattenuation, nonspecific; most likely changes secondary to chronic ischemia due to microvascular angiopathy. SUBDURAL SPACE: No bleed. BASAL GANGLIA AND PINEAL GLAND: Unremarkable VENTRICLES: Symmetric and normal in size. CEREBELLUM AND BRAINSTEM: No space-occupying mass, hemorrhage or acute infarct. CEREBELLOPONTINE ANGLES: No lesion found. ORBITS: No intraorbital mass. VESSELS: Unremarkable SKULL BASE: Unremarkable INCLUDED SINUSES AT SKULL BASE: Clear SKULL AND SKIN: No fracture or bone lesion found. CT/CT head/brain wo con IMPRESSION: Very mild white matter and periventricular hypoattenuation, nonspecific; most likely sequela of chronic microvascular angiopathy ischemia. No CT evidence of intracranial bleed. No skull fracture. Normal CT scan does not rule out the possibility of hyperacute infarct in the first 12 hours. If patient symptoms persist may consider correlation with MRI, which is more sensitive for early acute infarct.
--- NOTE | ~2020-12-31 | FL_ITS ---
EXAMINATION: XR BARIUM SWALLOW CLINICAL INFORMATION: Dysphagia. COMPARISON: 12/10/2020 TECHNIQUE: Modified barium swallow with speech pathologist. FINDINGS: Patient was given different consistencies from nectar thick to applesauce and chicken salad. There was noted to be laryngeal penetration and mild aspiration with all consistencies. There is a minimal cough reflex with aspiration but which cleared the aspirated material. FLUOROSCOPY TIME: 0.8 minutes DOSE AREA PRODUCT: 0.547 Gy-cm2 FL/FL barium swallow modified IMPRESSION: Laryngeal penetration and occasional aspiration as described above. Please refer to speech pathology report for details.
--- NOTE | ~2020-12-31 | XR_ITS ---
EXAMINATION: XR CHEST CLINICAL INFORMATION: Tachypnea COMPARISON: 12/23/2020 TECHNIQUE: Frontal view of the chest was obtained. FINDINGS: Severe chronic pulmonary fibrotic changes redemonstrated. The extent of the pulmonary parenchymal abnormality renders it difficult to exclude superimposed pneumonitis, however there is no discrete consolidation. No pleural effusion or pneumothorax. Normal heart size and pulmonary vascularity. No acute or suspicious osseous abnormalities. XR/XR chest 1V IMPRESSION: Severe chronic interstitial lung disease. No evidence of acute superimposed pneumonitis.
[2020-12-31 16:09] VITALS: BP 150/86; PULSE 75; RESP 26; TEMP 36.7; O2SAT 97
[2020-12-31 16:40] VITALS: BMI 18.6
[2020-12-31 16:50] VITALS: BMI 18.6
[2020-12-31 21:32] VITALS: BP 136/76; PULSE 79; RESP 20; TEMP 36.3; O2SAT 94
[2020-12-31] MEDS: Mirtazapine 15 MG TABLET PO (21:36)
[2020-12-31] MEDS: Docusate Sodium 100 MG CAPSULE PO (21:37)
[2020-12-31] MEDS: Acetaminophen 325 MG TABLET 650 MG PO (21:37)
[2020-12-31] MEDS: QUEtiapine Fumarate 25 MG TABLET 12.5 MG PO (21:38)
--- NOTE | 2020-12-31 22:03 | P.HPPS_ITS ---
HPI Chief Complaint: severe depression HPI Subjective Notes: Conditional Voluntary Narrative: Patient transferred from medical floor back to the psychiatric unit. He had initially been admitted secondary to severe bipolar depression not responsive to medication. Patient generally has improved with ECT but has developed infection and hypotension and complicated medical situation. Case reviewed extensively and repeatedly including with the chief technical officer. The patient has been started on Decadron for presumed adrenal insufficiency. It is thought that this was the reason for hyportension there has been no episode of hypotension and according to hospitalist service appears stable for ECT patient and his are aware he is at somewhat higher risk given his deconditioning he has tolerated prior ECT treatments during the treatment without difficulty post operatively he does develop a postop confusional state which is disturbing to him Past Psychiatric History: History of 3 prior psychiatric hospitalizations the last at [facility] he did have a course of ECT and briefly did maintenance. ECT was quite helpful but the patient had difficulty with side effects of nausea and headache. He has also failed a trial of ketamine Medical Evaluation Reviewed: Yes (extensive discussion with hospitalist service ) [facility] Medical History Anemia Anxiety Bronchiectasis Cerebrovascular disease Chronic hyponatremia CKD (chronic kidney disease) stage 3, GFR 30-59 ml/min Degenerative arthritis Depression History of electroconvulsive therapy Hx of bladder cancer Hydrocele Pulmonary fibrosis Pulmonary fibrosis Surgical History History of bladder surgery Family History: Reportedly no history of bipolar disorder Social History: Patient is has children with whom he is close with 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 Trauma History: Trauma of being increasingly isolated and not responding to treatment over the past year Diagnostics Vital Signs (24Hr): Vital Signs - 24 hr 12/31/20 16:09 Temperature 98.0 F Pulse Rate 75 Respiratory Rate 26 H Blood Pressure 150/86 H Pulse Oximetry 97 Body Mass Index 18.6 Labs Results: 01/01/21 14:34 Meds/Allergies Meds Home Medications Acetaminophen (Acetaminophen 325 Mg Tablet) 650 mg PO Q6H PRN PRN Reason: Pain, Mild (Pain Scale 1-3) Last Admin: 01/01/21 10:33 Dose: 650 mg Documented by: Albuterol/Ipratropium (Albuterol/Iprat 2.5/0.5mg 3 Ml Ampul.Neb) 3 ml INHALE RQ6H [facility] Last Admin: 01/01/21 19:34 Dose: 3 ml Documented by: Benzocaine (Throat Lozenge, Medicated Lozenge) 1 lozenge MUCOUS MEM Q2H PRN PRN Reason: Sore Throat Brexpiprazole (Brexpiprazole 1 Mg Tablet) 1.5 mg PO DAILY [facility] Last Admin: 01/01/21 08:27 Dose: 1.5 mg Documented by: Budesonide (Budesonide 180 Mcg Aer.Pow.Ba) 2 puff INHALE RBID [facility] Last Admin: 01/01/21 20:09 Dose: 2 puff Documented by: Cefuroxime Axetil (Cefuroxime Axetil 500 Mg Tablet) 500 mg PO Q12H [facility] Stop: 01/05/21 20:59 Last Admin: 01/01/21 20:08 Dose: 500 mg Documented by: Dexamethasone (Dexamethasone 2 Mg Tablet) 2 mg PO DAILY [facility] Last Admin: 01/01/21 08:26 Dose: 2 mg Documented by: Docusate Sodium (Docusate Sodium 100 Mg Capsule) 100 mg PO BID PRN PRN Reason: constipation Last Admin: 12/31/20 21:37 Dose: 100 mg Documented by: Doxycycline Hyclate (Doxycycline Hyclate 100 Mg Tablet) 100 mg PO Q12H [facility] Stop: 01/05/21 20:59 Last Admin: 01/01/21 20:05 Dose: 100 mg Documented by: Famotidine (Famotidine 20 Mg Tablet) 20 mg PO DAILY [facility] Last Admin: 01/01/21 08:26 Dose: 20 mg Documented by: Guaifenesin (Guaifenesin La 600 Mg Tab.Er.12h) 600 mg PO BID [facility] Last Admin: 01/01/21 20:06 Dose: 600 mg Documented by: Lorazepam (Lorazepam 0.5 Mg Tablet) 0.5 mg PO BEDTIME PRN PRN Reason: anxiety Last Admin: 01/01/21 20:43 Dose: 0.5 mg Documented by: Lorazepam (Lorazepam 0.5 Mg Tablet) 0.5 mg PO BID PRN PRN Reason: anxiety Last Admin: 01/01/21 07:37 Dose: 0.5 mg Documented by: Mirtazapine (Mirtazapine 15 Mg Tablet) 15 mg PO BEDTIME [facility] Last Admin: 01/01/21 20:08 Dose: 15 mg Documented by: Patient Own Med ( (Nintedanib 150 Mg)) 1 each PO BID [facility] Last Admin: 01/01/21 20:09 Dose: 1 each Documented by: Omeprazole (Omeprazole 40 Mg Capsule.Dr) 40 mg PO DAILY@0630 [facility] Last Admin: 01/01/21 08:26 Dose: 40 mg Documented by: Prochlorperazine Edisylate (Prochlorperazine Edisylate 10 Mg/2 Ml Vial) 5 mg IM Q6H PRN PRN Reason: Nausea and Vomiting Last Admin: 01/01/21 18:40 Dose: 5 mg Documented by: Quetiapine Fumarate (Quetiapine Fumarate 25 Mg Tablet) 12.5 mg PO BEDTIME [facility] Last Admin: 01/01/21 20:06 Dose: 12.5 mg Documented by: Thiamine HCl (Thiamine Hcl 100 Mg Tablet) 100 mg PO DAILY [facility] Last Admin: 01/01/21 08:26 Dose: 100 mg Documented by: Allergies Allergies Allergy/AdvReac Type Severity Reaction Status Date / Time Sulfa (Sulfonamide Allergy Unknown UNKNOWN Verified 12/01/20 09:47 Antibiotics) [SULFA (SULFONAMIDE ANTIBIOTICS)] zoster vaccine live Allergy Hives Verified 12/01/20 09:47 Mental Status Exam Mental Status Exam Patient Appearance: Fatigued Patient Orientation: Person, Place and Situation Level of Consciousness: Awake Patient Behavior: Dependent, Talkative, Cooperative, Passive and Anxious Mood Description: Depressed Affect Description: Flat Patient Cognition Impaired: Yes Ability to Follow Directions: Good Speech Pattern: Spontaneous Speech and Soft-Spoken Memory Description: Episodic Impaired Hallucinations: None Delusions: Not Present Thought Process: Intact Thought Content: positive for Circumstantial Depressive Symptoms: Increased Anxiety, Hopelessness, Unhappiness, Increased Fatigue and Loss of Energy Judgement: Fair Assessment & Plan Assessment & Plan (1) Swallowing dysfunction: Status: Acute Code(s): R13.10 - Dysphagia, unspecified (2) Pulmonary fibrosis: Status: Acute Code(s): J84.10 - Pulmonary fibrosis, unspecified (3) Bipolar I disorder with depression, severe: Status: Acute Code(s): F31.4 - Bipolar disorder, current episode depressed, severe, without psychotic features Assessment and Plan: Case discussed with hospitalist service chief technical officer is felt patient can be safely treated with ECT on psychiatric unit and will benefit from the addition of Decadron. Will not use etomidate for anesthesia thiamin added monitor vital signs watch for any sign of hypotension Patient educated on: diagnosis, medication risk/benefits, ECT and medical condition Guardian/Caregiver educated on: diagnosis, medication risk/benefits, ECT and medical condition Informed Consent: understands Reason for continued inpatient stay Substantial Risk for: inability to function, rapid decompensation and med/psych decompensation
--- NOTE | 2020-12-31 23:19 | PC.NURSE ---
hospitalist notified of patient vomiting-patient had an uneventful night until he woke up and began to vomit. 174/99, 93% R.A., 99,97.8. he is in a medical bed with h.o.b. elevated. reports ''sour stomach'' has now stopped vomiting and has dry heaves reporting continued nausea. compazine ordered.
[2020-12-31 23:55] VITALS: BP 131/85; PULSE 100; RESP 34; TEMP 36.1; O2SAT 94
[2021-01-01] MEDS: Prochlorperazine Edisylate 10 MG/2 ML VIAL 5 MG IM ×3 (00:01→18:40)
[2021-01-01] MEDS: Magnesium Hydrox/Alum Hydrox 30 ML ORAL.SUSP PO (00:33)
[2021-01-01] MEDS: Omeprazole 40 MG CAPSULE.DR PO ×2 (00:33→08:26)
[2021-01-01] MEDS: Albuterol/Iprat 2.5/0.5MG 3 ML AMPUL.NEB INHALE ×2 (00:47→19:34)
[2021-01-01] MEDS: LORazepam 0.5 MG TABLET PO ×3 (01:11→20:43)
[2021-01-01 05:55] VITALS: BP 130/70; PULSE 76; RESP 29; TEMP 36.4; O2SAT 96
--- NOTE | 2021-01-01 05:55 | PC.NURSE ---
At approximately 23:40 pt coughing white thick sputum into basin while in highfowlers position in hospital bed. Peceived Compazine 5 mg IM w/positive effect. Reported feeling something was stuck in my throat. RR 34 but O2 94% on room air. Lung sounds assessed by charge nurse w/wheeze present in base bilaterally. Received Duoneb at apporximately 01:00 w/ positive effect, O2 99%. Pressure ulcer prevention initiated: heel protectors, hospital air mattress, repositioning. Pt c/o anxiety and received Ativan 1 mg PO with applesauce. Pt slept restfully for remainder of shift. Charge nurse discussed scheduled ECT w/Dr. Chowdhury who instructed to continue as scheduled.
[2021-01-01 06:14] VITALS: BP 130/70; PULSE 76; RESP 29; TEMP 36.4; O2SAT 96
[2021-01-01 07:43] VITALS: BP 149/83; PULSE 74; RESP 32; TEMP 36.1; O2SAT 93
[2021-01-01] MEDS: Budesonide 180 MCG AER.POW.BA 2 PUFF INHALE ×2 (08:25→20:09)
[2021-01-01] MEDS: dexAMETHasone 2 MG TABLET PO (08:26)
[2021-01-01] MEDS: Famotidine 20 MG TABLET PO (08:26)
[2021-01-01] MEDS: Thiamine HCL 100 MG TABLET PO (08:26)
[2021-01-01] MEDS: Brexpiprazole 1 MG TABLET 1.5 MG PO (08:27)
[2021-01-01] MEDS: Acetaminophen 325 MG TABLET 650 MG PO (10:33)
[2021-01-01 12:00] VITALS: BP 140/86; PULSE 81; RESP 14; O2SAT 94
--- NOTE | 2021-01-01 12:11 | MHC.SL.SWA ---
Speech Pathologist Impression: Dysphasia Diet Status: Upgrade Liquid Consistency and Strategies for Safe Swallow: Liquid Intake Recommendation: [place] Thick Liquid Intake Strategies: Small Sips No Straws Solid Food Consistency: Dietary Recommendations: Grnd/Mech Altered (NDD2) Oral Medication Intake: Whole with Puree Compensatory Strategies and Precautions to be Taken for Safe Swallow: Sitting Upright (90 deg) Double Swallow No Straw Small Bites and Sips Alternate Liquids/Solids Rate of Ingestion Change Avoid Specific Foods Supervision While Eating and Drinking for Safe Swallow: Total Supervision (1:1) Foods to Avoid: Pt stated that softer foods are easier for him to consume due to increased fatigue. Swallowing Recommended Treatments: Pharyngeal Resistive Exer Compens. Strategy Educat. Recommendation for Speech: Comment: MBSS completed on 12/10/20. Please refer to full report. Director Of Search Engine Marketing Clinican/Clinical Fellow: No Supervisory Statement: I have reviewed and agree with the student/clinical fellow's documentation: N/A Speech Language Pathologist: Smitha Rodríguez M.A., CCC-INSULATION CUPOLA CHARGER
[2021-01-01 15:15] LABS: Alanine Aminotransferase 29 U/L (0-40); Albumin Level 3.1 g/dL (3.5-5.0); Alkaline Phosphatase 137 U/L (39-117); Anion Gap 13 (12-20); Aspartate Amino Transferase 36 U/L (5-37); Bilirubin Total 0.5 mg/dL (0.0-1.0); Blood Urea Nitrogen 25 mg/dL (9-16); Calcium 9.2 mg/dL (8.4-10.2); Carbon Dioxide 27 mmol/L (22-29); Chloride 97 mmol/L (96-108); Creatinine Clr Calc Pharmacy 45.7; Estimated Glomerular Filt Rate > 60; Glucose Random 145 mg/dL (60-115); Potassium 5.2 mmol/L (3.3-5.1); Sodium 132 mmol/L (135-145); Total Protein 6.7 g/dL (6.5-8.0)
[2021-01-01 16:00] VITALS: BP 130/80; PULSE 72; RESP 22; TEMP 36.8; O2SAT 96
[2021-01-01] MEDS: guaiFENesin LA 600 MG TAB.ER.12H PO ×2 (17:24→20:06)
[2021-01-01 20:00] VITALS: BP 108/77; PULSE 80; RESP 20; O2SAT 95
[2021-01-01] MEDS: QUEtiapine Fumarate 25 MG TABLET 12.5 MG PO (20:06)
[2021-01-01] MEDS: Mirtazapine 15 MG TABLET PO (20:08)
--- NOTE | 2021-01-01 22:08 | HO.PSYCHPN ---
Subjective Subjective Date of Service: 01/01/21 Reason For Visit: severe depression Subjective Notes: Conditional Voluntary Interim History: ECT canceled from this morning. Patient had experienced vomiting shortness of breath at night patient quite depressed withdrawn with swallowing difficulty severe weight loss has failed multiple antidepressant trials unclear if patient will be able to tolerate ECT complains of shortness of breath seen with Medication Compliance: Yes Side effects from medications: Yes Attending Groups: No Mental Status Exam Mental Status Exam Patient Appearance: Fatigued Patient Orientation: Person, Place and Situation Level of Consciousness: Awake Patient Behavior: Dependent, Cooperative, Passive and Anxious Mood Description: Depressed, Sad and Apprehensive Affect Description: Depressed, Flat and Apprehensive Patient Cognition Impaired: Yes Ability to Follow Directions: Good Speech Pattern: Impoverished and Soft-Spoken Memory Description: Episodic Impaired Hallucinations: None Delusions: Not Present Thought Process: Intact Thought Content: positive for Circumstantial Depressive Symptoms: Increased Anxiety, Insomnia, Diff. Making Decisions, Hopelessness, Unhappiness, Increased Fatigue and Loss of Energy Judgement: Fair Diagnostics Vital Signs (24Hr): Vital Signs - 24 hr 12/31/20 23:55 01/01/21 05:55 01/01/21 06:14 Temperature 96.9 F 97.5 F 97.5 F Pulse Rate 100 76 76 Respiratory Rate 34 H 29 H 29 H Blood Pressure 131/85 130/70 130/70 Pulse Oximetry 94 96 96 01/01/21 07:43 01/01/21 12:00 01/01/21 16:00 Temperature 96.9 F 98.2 F Pulse Rate 74 81 72 Respiratory Rate 32 H 14 22 H Blood Pressure 149/83 H 140/86 H 130/80 Pulse Oximetry 93 94 96 01/01/21 20:00 Temperature Pulse Rate 80 Respiratory Rate 20 Blood Pressure 108/77 Pulse Oximetry 95 Body Mass Index 18.6 Labs Results: 01/01/21 14:34 Labs: Laboratory Results - last 48 hr 01/01/21 14:34 Sodium 132 L Potassium 5.2 H Chloride 97 Carbon Dioxide 27 Anion Gap 13 BUN 25 H Creatinine 1.00 Estim Creat Clear Calc 45.7 Estimated GFR > 60 Random Glucose 145 H D Calcium 9.2 Total Bilirubin 0.5 AST 36 D ALT 29 Alkaline Phosphatase 137 H D Total Protein 6.7 D Albumin 3.1 L D Medications Medications Current Medications Generic Name Dose Route Start Last Admin Trade Name Freq PRN Reason Stop Dose Admin Acetaminophen 650 mg 12/31/20 17:25 01/01/21 10:33 Acetaminophen 325 Mg Tablet PO 650 mg Q6H PRN Administration Pain, Mild (Pain Scale 1-3) Albuterol/Ipratropium 3 ml 01/01/21 18:00 01/01/21 19:34 Albuterol/Iprat 2.5/0.5mg 3 Ml Ampul.Neb INHALE 3 ml RQ6H DOMINICK Administration Benzocaine 1 lozenge 12/31/20 17:25 Throat Lozenge, Medicated Lozenge MUCOUS MEM Q2H PRN Sore Throat Brexpiprazole 1.5 mg 01/01/21 09:00 01/01/21 08:27 Brexpiprazole 1 Mg Tablet PO 1.5 mg DAILY DOMINICK Administration Budesonide 2 puff 12/31/20 20:00 01/01/21 20:09 Budesonide 180 Mcg Aer.Pow.Ba INHALE 2 puff RBID DOMINICK Administration Cefuroxime Axetil 500 mg 12/31/20 21:00 01/01/21 20:08 Cefuroxime Axetil 500 Mg Tablet PO 01/05/21 20:59 500 mg Q12H DOMINICK Administration Dexamethasone 2 mg 01/01/21 09:00 01/01/21 08:26 Dexamethasone 2 Mg Tablet PO 2 mg DAILY DOMINICK Administration Docusate Sodium 100 mg 12/31/20 17:25 12/31/20 21:37 Docusate Sodium 100 Mg Capsule PO 100 mg BID PRN Administration constipation Doxycycline Hyclate 100 mg 12/31/20 21:00 01/01/21 20:05 Doxycycline Hyclate 100 Mg Tablet PO 01/05/21 20:59 100 mg Q12H DOMINICK Administration Famotidine 20 mg 01/01/21 09:00 01/01/21 08:26 Famotidine 20 Mg Tablet PO 20 mg DAILY DOMINICK Administration Guaifenesin 600 mg 01/01/21 17:05 01/01/21 20:06 Guaifenesin La 600 Mg Tab.Er.12h PO 600 mg BID DOMINICK Administration Lorazepam 0.5 mg 12/31/20 17:25 01/01/21 20:43 Lorazepam 0.5 Mg Tablet PO 0.5 mg BEDTIME PRN Administration anxiety Lorazepam 0.5 mg 12/31/20 17:25 01/01/21 07:37 Lorazepam 0.5 Mg Tablet PO 0.5 mg BID PRN Administration anxiety Mirtazapine 15 mg 12/31/20 21:00 01/01/21 20:08 Mirtazapine 15 Mg Tablet PO 15 mg BEDTIME DOMINICK Administration Patient Own Med ( 1 each 12/31/20 21:00 01/01/21 20:09 Nintedanib 150 Mg) PO 1 each BID DOMINICK Administration Omeprazole 40 mg 01/01/21 06:30 01/01/21 08:26 Omeprazole 40 Mg Capsule. PO 40 mg DAILY@0630 DOMINICK Administration Prochlorperazine Edisylate 5 mg 12/31/20 23:21 01/01/21 18:40 Prochlorperazine Edisylate 10 Mg/2 Ml Vial IM 5 mg Q6H PRN Administration Nausea and Vomiting Quetiapine Fumarate 12.5 mg 12/31/20 21:00 01/01/21 20:06 Quetiapine Fumarate 25 Mg Tablet PO 12.5 mg BEDTIME DOMINICK Administration Thiamine HCl 100 mg 01/01/21 09:00 01/01/21 08:26 Thiamine Hcl 100 Mg Tablet PO 100 mg DAILY DOMINICK Administration Allergies Allergies Allergy/AdvReac Type Severity Reaction Status Date / Time Sulfa (Sulfonamide Allergy Unknown UNKNOWN Verified 12/01/20 09:47 Antibiotics) [SULFA (SULFONAMIDE ANTIBIOTICS)] zoster vaccine live Allergy Hives Verified 12/01/20 09:47 Assessment & Plan Assessment & Plan (1) Swallowing dysfunction: Status: Acute Code(s): R13.10 - Dysphagia, unspecified (2) Pulmonary fibrosis: Status: Acute Code(s): J84.10 - Pulmonary fibrosis, unspecified (3) Bipolar I disorder with depression, severe: Status: Acute Code(s): F31.4 - Bipolar disorder, current episode depressed, severe, without psychotic features Assessment and Plan: Patient had shortness of breath on the night prior to ECT required updraft ECT canceled from today. I requested the consult from hospitalist service and have ordered updrafts the patient continues on antibiotics for presumed pulmonary infection. Patient is on Decadron for question of borderline adrenal insufficiency but eventually benefit from ACTH stimulation test. Unclear if patient can tolerate at for ECT at this time reconsult hospitalist service monitor blood pressure fatigue discussed option of referral to rehab patient has loss of extended amount weight ECT has seemed to be helpful even during this extended admission back and forth to the medical floor. Patient scheduled for ECT in 3 days will re-evaluate he is on aspiration precautions see speech therapy a bowel monitor electrolytes recent hyponatremia Greater than 50% of the session was spent on counseling and/or coordination of care Reason for contiued inpatient stay Substantial Risk for: inability to function, rapid decompensation and med/psych decompensation
[2021-01-02] VITALS (8 sets, daily range): BP systolic 95–137; BP diastolic 61–97; PULSE 79–92; RESP 16–22; TEMP 37–37.1; O2SAT 92–96
[2021-01-02] MEDS: Albuterol/Iprat 2.5/0.5MG 3 ML AMPUL.NEB INHALE ×3 (06:12→18:22)
[2021-01-02] MEDS: Brexpiprazole 1 MG TABLET 1.5 MG PO (09:04)
[2021-01-02] MEDS: Thiamine HCL 100 MG TABLET PO (09:04)
[2021-01-02] MEDS: Budesonide 180 MCG AER.POW.BA 2 PUFF INHALE ×2 (09:04→20:04)
[2021-01-02] MEDS: dexAMETHasone 2 MG TABLET PO (09:04)
[2021-01-02] MEDS: Famotidine 20 MG TABLET PO (09:04)
[2021-01-02] MEDS: Omeprazole 40 MG CAPSULE.DR PO (09:04)
[2021-01-02] MEDS: guaiFENesin LA 600 MG TAB.ER.12H PO ×3 (09:04→20:03)
[2021-01-02] MEDS: Docusate Sodium 100 MG CAPSULE PO (11:08)
[2021-01-02] MEDS: Prochlorperazine Edisylate 10 MG/2 ML VIAL 5 MG IM (11:47)
--- NOTE | 2021-01-02 13:08 | HO.PSYCHPN ---
Subjective Subjective Date of Service: 01/02/21 Reason For Visit: severe depression Subjective Notes: Conditional Voluntary Interim History: Sai is much the same. He does seem to be breathing more easily, and he was able to spend some time in the day room. He had a BM with some straining. Pressure sores are healing. Medication Compliance: Yes Side effects from medications: No Attending Groups: No Review of Systems Acute medical concerns: Yes No change in status Medical Review of Systems: unchanged Mental Status Exam Mental Status Exam Patient Appearance: Fatigued Patient Orientation: Person, Place and Situation Level of Consciousness: Awake Patient Behavior: Dependent, Cooperative, Passive and Anxious Mood Description: Depressed, Sad and Apprehensive Affect Description: Depressed, Flat and Apprehensive Patient Cognition Impaired: Yes Ability to Follow Directions: Good Speech Pattern: Impoverished and Soft-Spoken Memory Description: Episodic Impaired Hallucinations: None Delusions: Not Present Thought Process: Intact Thought Content: positive for Circumstantial Depressive Symptoms: Increased Anxiety, Insomnia, Diff. Making Decisions, Hopelessness, Unhappiness, Increased Fatigue and Loss of Energy Judgement: Fair Diagnostics Vital Signs (24Hr): Vital Signs - 24 hr 01/01/21 16:00 01/01/21 20:00 01/02/21 00:30 Temperature 98.2 F Pulse Rate 72 80 Respiratory Rate 22 H 20 Blood Pressure 130/80 108/77 Pulse Oximetry 96 95 95 01/02/21 06:28 01/02/21 06:41 01/02/21 12:26 Temperature 98.7 F Pulse Rate 80 92 82 Respiratory Rate Blood Pressure 137/97 H Pulse Oximetry 92 Body Mass Index 18.6 Labs Results: 01/01/21 14:34 Labs: Laboratory Results - last 48 hr 01/01/21 14:34 Sodium 132 L Potassium 5.2 H Chloride 97 Carbon Dioxide 27 Anion Gap 13 BUN 25 H Creatinine 1.00 Estim Creat Clear Calc 45.7 Estimated GFR > 60 Random Glucose 145 H D Calcium 9.2 Total Bilirubin 0.5 AST 36 D ALT 29 Alkaline Phosphatase 137 H D Total Protein 6.7 D Albumin 3.1 L D Medications Medications Current Medications Generic Name Dose Route Start Last Admin Trade Name Freq PRN Reason Stop Dose Admin Acetaminophen 650 mg 12/31/20 17:25 01/01/21 10:33 Acetaminophen 325 Mg Tablet PO 650 mg Q6H PRN Administration Pain, Mild (Pain Scale 1-3) Albuterol/Ipratropium 3 ml 01/01/21 18:00 01/02/21 12:26 Albuterol/Iprat 2.5/0.5mg 3 Ml Ampul.Neb INHALE 3 ml RQ6H DOMINICK Administration Benzocaine 1 lozenge 12/31/20 17:25 Throat Lozenge, Medicated Lozenge MUCOUS MEM Q2H PRN Sore Throat Brexpiprazole 1.5 mg 01/01/21 09:00 01/02/21 09:04 Brexpiprazole 1 Mg Tablet PO 1.5 mg DAILY DOMINICK Administration Budesonide 2 puff 12/31/20 20:00 01/02/21 09:04 Budesonide 180 Mcg Aer.Pow.Ba INHALE 2 puff RBID DOMINICK Administration Cefuroxime Axetil 500 mg 12/31/20 21:00 01/02/21 09:04 Cefuroxime Axetil 500 Mg Tablet PO 01/05/21 20:59 500 mg Q12H DOMINICK Administration Dexamethasone 2 mg 01/01/21 09:00 01/02/21 09:04 Dexamethasone 2 Mg Tablet PO 2 mg DAILY DOMINICK Administration Docusate Sodium 100 mg 12/31/20 17:25 01/02/21 11:08 Docusate Sodium 100 Mg Capsule PO 100 mg BID PRN Administration constipation Doxycycline Hyclate 100 mg 12/31/20 21:00 01/02/21 09:04 Doxycycline Hyclate 100 Mg Tablet PO 01/05/21 20:59 100 mg Q12H DOMINICK Administration Famotidine 20 mg 01/01/21 09:00 01/02/21 09:04 Famotidine 20 Mg Tablet PO 20 mg DAILY DOMINICK Administration Guaifenesin 600 mg 01/01/21 17:05 01/02/21 09:04 Guaifenesin La 600 Mg Tab.Er.12h PO 600 mg BID DOMINICK Administration Lorazepam 0.5 mg 12/31/20 17:25 01/01/21 20:43 Lorazepam 0.5 Mg Tablet PO 0.5 mg BEDTIME PRN Administration anxiety Lorazepam 0.5 mg 12/31/20 17:25 01/01/21 07:37 Lorazepam 0.5 Mg Tablet PO 0.5 mg BID PRN Administration anxiety Mirtazapine 15 mg 12/31/20 21:00 01/01/21 20:08 Mirtazapine 15 Mg Tablet PO 15 mg BEDTIME DOMINICK Administration Patient Own Med ( 1 each 12/31/20 21:00 01/02/21 09:04 Nintedanib 150 Mg) PO 1 each BID DOMINICK Administration Omeprazole 40 mg 01/01/21 06:30 01/02/21 09:04 Omeprazole 40 Mg Capsule. PO 40 mg DAILY@0630 DOMINICK Administration Prochlorperazine Edisylate 5 mg 12/31/20 23:21 01/02/21 11:47 Prochlorperazine Edisylate 10 Mg/2 Ml Vial IM 5 mg Q6H PRN Administration Nausea and Vomiting Quetiapine Fumarate 12.5 mg 12/31/20 21:00 01/01/21 20:06 Quetiapine Fumarate 25 Mg Tablet PO 12.5 mg BEDTIME DOMINICK Administration Thiamine HCl 100 mg 01/01/21 09:00 01/02/21 09:04 Thiamine Hcl 100 Mg Tablet PO 100 mg DAILY DOMINICK Administration Allergies Allergies Allergy/AdvReac Type Severity Reaction Status Date / Time Sulfa (Sulfonamide Allergy Unknown UNKNOWN Verified 12/01/20 09:47 Antibiotics) [SULFA (SULFONAMIDE ANTIBIOTICS)] zoster vaccine live Allergy Hives Verified 12/01/20 09:47 Assessment & Plan Assessment & Plan (1) Swallowing dysfunction: Status: Acute Code(s): R13.10 - Dysphagia, unspecified Assessment and Plan: Patient had shortness of breath on the night prior to ECT required updraft ECT canceled from today. I requested the consult from hospitalist service and have ordered updrafts the patient continues on antibiotics for presumed pulmonary infection. Patient is on Decadron for question of borderline adrenal insufficiency but eventually benefit from ACTH stimulation test. Unclear if patient can tolerate at for ECT at this time reconsult hospitalist service monitor blood pressure fatigue discussed option of referral to rehab patient has loss of extended amount weight ECT has seemed to be helpful even during this extended admission back and forth to the medical floor. Patient scheduled for ECT in 3 days will re-evaluate he is on aspiration precautions see speech therapy a bowel monitor electrolytes recent hyponatremia (2) Pulmonary fibrosis: Status: Acute Code(s): J84.10 - Pulmonary fibrosis, unspecified (3) Bipolar I disorder with depression, severe: Status: Acute Code(s): F31.4 - Bipolar disorder, current episode depressed, severe, without psychotic features Assessment and Plan: No change to current plan Greater than 50% of the session was spent on counseling and/or coordination of care Patient educated on: diagnosis, medication risk/benefits and medical condition Informed Consent: further education needed Reason for contiued inpatient stay Substantial Risk for: rapid decompensation
[2021-01-02] MEDS: LORazepam 0.5 MG TABLET PO ×2 (15:27→20:06)
--- NOTE | 2021-01-02 16:14 | PM.EVENT ---
Event Note Date of Service: 01/02/21 Event Note: Patient was seen and evaluated this afternoon. His was at the bedside. Resting in hospital bed on room air. Mildly tachypneic but not requiring and oxygen supplement with stable vitals and oxygen saturation. Reporting increasing anxiety and being worried about ECT therapy. Reported thick mucus and mild coughing with associated shortness of breath upon ambulation which seems to be around baseline. On physical exam he has left lower lobe crackles from previously known pneumonia. His symptoms seems to be related to his worsening anxiety levels which could be exacerbate with usage of steroids. To decrease Dexamethason to 1mg daily Add Mucinex to loosen his cough consider options other that ECT for treatment as it seems to be concerning for the patient and worsening his anxiety
[2021-01-02] MEDS: QUEtiapine Fumarate 25 MG TABLET 12.5 MG PO (20:03)
[2021-01-02] MEDS: Mirtazapine 15 MG TABLET PO (20:04)
[2021-01-03] MEDS: Albuterol/Iprat 2.5/0.5MG 3 ML AMPUL.NEB INHALE ×4 (01:44→19:49)
[2021-01-03 01:45] VITALS: PULSE 80; O2SAT 95
[2021-01-03 06:56] VITALS: BP 132/79; PULSE 92; RESP 16; TEMP 36.4; O2SAT 94
[2021-01-03 08:00] VITALS: BP 123/77; PULSE 85; RESP 18; O2SAT 95
[2021-01-03] MEDS: Famotidine 20 MG TABLET PO (08:18)
[2021-01-03] MEDS: Brexpiprazole 1 MG TABLET 1.5 MG PO (08:18)
[2021-01-03] MEDS: guaiFENesin LA 600 MG TAB.ER.12H PO ×2 (08:18→21:13)
[2021-01-03] MEDS: Thiamine HCL 100 MG TABLET PO (08:19)
[2021-01-03] MEDS: Budesonide 180 MCG AER.POW.BA 2 PUFF INHALE ×2 (08:19→21:14)
[2021-01-03] MEDS: Omeprazole 40 MG CAPSULE.DR PO (08:19)
[2021-01-03] MEDS: Docusate Sodium 100 MG CAPSULE PO (09:19)
[2021-01-03 13:48] VITALS: BP 128/84; PULSE 92; RESP 18; O2SAT 95
[2021-01-03] MEDS: LORazepam 0.5 MG TABLET PO ×2 (14:05→20:50)
[2021-01-03] MEDS: Throat Lozenge, Medicated LOZENGE 1 LOZENGE MUCOUS MEM (14:59)
[2021-01-03 16:00] VITALS: BP 100/56; PULSE 84; RESP 22; TEMP 36.9; O2SAT 95
--- NOTE | 2021-01-03 16:30 | HO.PSYCHPN ---
Subjective Subjective Date of Service: 01/03/21 Reason For Visit: severe depression Subjective Notes: Conditional Voluntary Interim History: Sai was a little more upbeat today. He was able to tolerate a little more interaction. Medication Compliance: Yes Side effects from medications: No Attending Groups: No Review of Systems Acute medical concerns: No Medical Review of Systems: unchanged Mental Status Exam Mental Status Exam Patient Appearance: Fatigued Patient Orientation: Person, Place and Situation Level of Consciousness: Awake Patient Behavior: Dependent, Cooperative, Passive and Anxious Mood Description: Depressed, Sad and Apprehensive Affect Description: Depressed, Flat and Apprehensive Patient Cognition Impaired: Yes Ability to Follow Directions: Good Speech Pattern: Impoverished and Soft-Spoken Memory Description: Episodic Impaired Hallucinations: None Delusions: Not Present Thought Process: Intact Thought Content: positive for Circumstantial Depressive Symptoms: Increased Anxiety, Insomnia, Diff. Making Decisions, Hopelessness, Unhappiness, Increased Fatigue and Loss of Energy Judgement: Fair Diagnostics Vital Signs (24Hr): Vital Signs - 24 hr 01/02/21 18:22 01/02/21 19:20 01/03/21 01:45 Temperature Pulse Rate 82 86 80 Respiratory Rate Blood Pressure 95/62 Pulse Oximetry 96 01/03/21 06:56 01/03/21 08:00 01/03/21 13:48 Temperature 97.5 F Pulse Rate 92 85 92 Respiratory Rate 16 18 18 Blood Pressure 132/79 123/77 128/84 Pulse Oximetry 94 95 95 Body Mass Index 18.6 Labs Results: 01/01/21 14:34 Medications Medications Current Medications Generic Name Dose Route Start Last Admin Trade Name Freq PRN Reason Stop Dose Admin Acetaminophen 650 mg 12/31/20 17:25 01/01/21 10:33 Acetaminophen 325 Mg Tablet PO 650 mg Q6H PRN Administration Pain, Mild (Pain Scale 1-3) Al Hydroxide/Mg Hydroxide 30 ml 01/02/21 20:32 Magnesium Hydrox/Alum Hydrox 30 Ml Oral.Susp PO Q4H PRN Dyspepsia Albuterol/Ipratropium 3 ml 01/03/21 02:00 01/03/21 13:41 Albuterol/Iprat 2.5/0.5mg 3 Ml Ampul.Neb INHALE 3 ml Q6H DOMINICK Administration Benzocaine 1 lozenge 12/31/20 17:25 01/03/21 14:59 Throat Lozenge, Medicated Lozenge MUCOUS MEM 1 lozenge Q2H PRN Administration Sore Throat Brexpiprazole 1.5 mg 01/01/21 09:00 01/03/21 08:18 Brexpiprazole 1 Mg Tablet PO 1.5 mg DAILY DOMINICK Administration Budesonide 2 puff 12/31/20 20:00 01/03/21 08:19 Budesonide 180 Mcg Aer.Pow.Ba INHALE 2 puff RBID DOMINICK Administration Cefuroxime Axetil 500 mg 12/31/20 21:00 01/03/21 08:19 Cefuroxime Axetil 500 Mg Tablet PO 01/05/21 20:59 500 mg Q12H DOMINICK Administration Dexamethasone 1 mg 01/03/21 09:00 01/03/21 08:19 Dexamethasone 0.5 Mg Tablet PO 1 mg DAILY DOMINICK Administration Docusate Sodium 100 mg 12/31/20 17:25 01/03/21 09:19 Docusate Sodium 100 Mg Capsule PO 100 mg BID PRN Administration constipation Doxycycline Hyclate 100 mg 12/31/20 21:00 01/03/21 08:19 Doxycycline Hyclate 100 Mg Tablet PO 01/05/21 20:59 100 mg Q12H DOMINICK Administration Famotidine 20 mg 01/01/21 09:00 01/03/21 08:18 Famotidine 20 Mg Tablet PO 20 mg DAILY DOMINICK Administration Guaifenesin 600 mg 01/01/21 17:05 01/03/21 08:18 Guaifenesin La 600 Mg Tab.Er.12h PO 600 mg BID DOMINICK Administration Lorazepam 0.5 mg 12/31/20 17:25 01/02/21 20:06 Lorazepam 0.5 Mg Tablet PO 0.5 mg BEDTIME PRN Administration anxiety Lorazepam 0.5 mg 01/02/21 17:14 01/03/21 14:05 Lorazepam 0.5 Mg Tablet PO 0.5 mg Q6H PRN Administration anxiety Mirtazapine 15 mg 12/31/20 21:00 01/02/21 20:04 Mirtazapine 15 Mg Tablet PO 15 mg BEDTIME DOMINICK Administration Patient Own Med ( 1 each 12/31/20 21:00 01/03/21 08:19 Nintedanib 150 Mg) PO 1 each BID DOMINICK Administration Omeprazole 40 mg 01/01/21 06:30 01/03/21 08:19 Omeprazole 40 Mg Capsule. PO 40 mg DAILY@0630 DOMINICK Administration Prochlorperazine Edisylate 5 mg 12/31/20 23:21 01/02/21 11:47 Prochlorperazine Edisylate 10 Mg/2 Ml Vial IM 5 mg Q6H PRN Administration Nausea and Vomiting Quetiapine Fumarate 12.5 mg 12/31/20 21:00 01/02/21 20:03 Quetiapine Fumarate 25 Mg Tablet PO 12.5 mg BEDTIME DOIMNICK Administration Thiamine HCl 100 mg 01/01/21 09:00 01/03/21 08:19 Thiamine Hcl 100 Mg Tablet PO 100 mg DAILY DOMINICK Administration Allergies Allergies Allergy/AdvReac Type Severity Reaction Status Date / Time Sulfa (Sulfonamide Allergy Unknown UNKNOWN Verified 12/01/20 09:47 Antibiotics) [SULFA (SULFONAMIDE ANTIBIOTICS)] zoster vaccine live Allergy Hives Verified 12/01/20 09:47 Assessment & Plan Assessment & Plan (1) Swallowing dysfunction: Status: Acute Code(s): R13.10 - Dysphagia, unspecified (2) Pulmonary fibrosis: Status: Acute Code(s): J84.10 - Pulmonary fibrosis, unspecified (3) Bipolar I disorder with depression, severe: Status: Acute Code(s): F31.4 - Bipolar disorder, current episode depressed, severe, without psychotic features Assessment and Plan: Patient had shortness of breath on the night prior to ECT required updraft ECT canceled from today. I requested the consult from hospitalist service and have ordered updrafts the patient continues on antibiotics for presumed pulmonary infection. Patient is on Decadron for question of borderline adrenal insufficiency but eventually benefit from ACTH stimulation test. Unclear if patient can tolerate at for ECT at this time reconsult hospitalist service monitor blood pressure fatigue discussed option of referral to rehab patient has loss of extended amount weight ECT has seemed to be helpful even during this extended admission back and forth to the medical floor. Patient scheduled for ECT in 3 days will re-evaluate he is on aspiration precautions see speech therapy a bowel monitor electrolytes recent hyponatremia No change to current plan Greater than 50% of the session was spent on counseling and/or coordination of care Reason for contiued inpatient stay Substantial Risk for: inability to function and rapid decompensation
[2021-01-03] MEDS: QUEtiapine Fumarate 25 MG TABLET 12.5 MG PO (19:58)
[2021-01-03] MEDS: Mirtazapine 15 MG TABLET PO (21:13)
[2021-01-04] VITALS (8 sets, daily range): BP systolic 106–133; BP diastolic 63–83; PULSE 84–97; RESP 24–26; TEMP 36.3–37.1; O2SAT 92–98; BMI 17.9
[2021-01-04] MEDS: Albuterol/Iprat 2.5/0.5MG 3 ML AMPUL.NEB INHALE ×2 (09:03→14:03)
[2021-01-04] MEDS: guaiFENesin LA 600 MG TAB.ER.12H PO ×2 (10:07→20:43)
[2021-01-04] MEDS: Brexpiprazole 1 MG TABLET 1.5 MG PO (10:07)
[2021-01-04] MEDS: Thiamine HCL 100 MG TABLET PO (10:08)
[2021-01-04] MEDS: Famotidine 20 MG TABLET PO (10:08)
[2021-01-04] MEDS: Omeprazole 40 MG CAPSULE.DR PO (10:08)
[2021-01-04] MEDS: Budesonide 180 MCG AER.POW.BA 2 PUFF INHALE ×2 (10:09→21:20)
--- NOTE | 2021-01-04 11:13 | P.PNPSI_ITS ---
Subjective Subjective Date of Service: 01/04/21 Reason For Visit: severe depression Interim History: Pt reports he's doing alright. He says he refused ECT today since he was feeling like he had too much phlem in his throat and worried it would be a problem for him. He said he's currently breathing alright sitting in bed, but sometimes he feels it's hard to breath; he has O2 tank but says he gets a little panicky when putting on nasal canula. Pt would like to continue ECT, though he he says thus far, it's not improved his mood at all. Roving Can Tender asked patient about ways to distract himself from anxiety and pt could only identify sleep. He agreed that going to groups might help distract him and said he would consider it for later today. Medication Compliance: Yes Side effects from medications: No Attending Groups: No Mental Status Exam Mental Status Exam Patient Appearance: Disheveled Patient Orientation: Person, Place, Time and Situation Level of Consciousness: Awake Patient Behavior: Passive and Poor Eye Contact Mood Description: Calm, Depressed and Anxious Affect Description: Blunted Ability to Follow Directions: Fair Speech Pattern: Clear Thought Process: Goal Oriented, Linear and Slowed Thinking Thought Content: positive for Perseveration Depressive Symptoms: Increased Anxiety, Diff. Making Decisions, Isolating- Friends/Family and Unhappiness Judgement: Poor Diagnostics Vital Signs (24Hr): Vital Signs - 24 hr 01/03/21 13:48 01/03/21 16:00 01/04/21 02:10 Temperature 98.5 F Pulse Rate 92 84 84 Respiratory Rate 18 22 H Blood Pressure 128/84 100/56 L Pulse Oximetry 95 95 01/04/21 05:50 01/04/21 09:05 Temperature 98.8 F Pulse Rate 88 94 Respiratory Rate 26 H Blood Pressure 133/83 Pulse Oximetry 94 Body Mass Index 18.6 Labs Results: 01/01/21 14:34 Medications Medications Current Medications Generic Name Dose Route Start Last Admin Trade Name Freq PRN Reason Stop Dose Admin Acetaminophen 650 mg 12/31/20 17:25 01/01/21 10:33 Acetaminophen 325 Mg Tablet PO 650 mg Q6H PRN Administration Pain, Mild (Pain Scale 1-3) Al Hydroxide/Mg Hydroxide 30 ml 01/02/21 20:32 Magnesium Hydrox/Alum Hydrox 30 Ml Oral.Susp PO Q4H PRN Dyspepsia Albuterol/Ipratropium 3 ml 01/03/21 02:00 01/04/21 09:03 Albuterol/Iprat 2.5/0.5mg 3 Ml Ampul.Neb INHALE 3 ml Q6H DOMINICK Administration Benzocaine 1 lozenge 12/31/20 17:25 01/03/21 14:59 Throat Lozenge, Medicated Lozenge MUCOUS MEM 1 lozenge Q2H PRN Administration Sore Throat Brexpiprazole 1.5 mg 01/01/21 09:00 01/04/21 10:07 Brexpiprazole 1 Mg Tablet PO 1.5 mg DAILY DOMINICK Administration Budesonide 2 puff 12/31/20 20:00 01/04/21 10:09 Budesonide 180 Mcg Aer.Pow.Ba INHALE 2 puff RBID DOMINICK Administration Cefuroxime Axetil 500 mg 12/31/20 21:00 01/04/21 10:08 Cefuroxime Axetil 500 Mg Tablet PO 01/05/21 20:59 500 mg Q12H DOMINICK Administration Dexamethasone 1 mg 01/03/21 09:00 01/04/21 10:08 Dexamethasone 0.5 Mg Tablet PO 1 mg DAILY DOMINICK Administration Docusate Sodium 100 mg 12/31/20 17:25 01/03/21 09:19 Docusate Sodium 100 Mg Capsule PO 100 mg BID PRN Administration constipation Doxycycline Hyclate 100 mg 12/31/20 21:00 01/04/21 10:09 Doxycycline Hyclate 100 Mg Tablet PO 01/05/21 20:59 100 mg Q12H DOMINICK Administration Famotidine 20 mg 01/01/21 09:00 01/04/21 10:08 Famotidine 20 Mg Tablet PO 20 mg DAILY DOMINICK Administration Guaifenesin 600 mg 01/01/21 17:05 01/04/21 10:07 Guaifenesin La 600 Mg Tab.Er.12h PO 600 mg BID DOMINICK Administration Lorazepam 0.5 mg 12/31/20 17:25 01/03/21 20:50 Lorazepam 0.5 Mg Tablet PO 0.5 mg BEDTIME PRN Administration anxiety Lorazepam 0.5 mg 01/02/21 17:14 01/03/21 14:05 Lorazepam 0.5 Mg Tablet PO 0.5 mg Q6H PRN Administration anxiety Mirtazapine 15 mg 12/31/20 21:00 01/03/21 21:13 Mirtazapine 15 Mg Tablet PO 15 mg BEDTIME DOMINICK Administration Patient Own Med ( 1 each 12/31/20 21:00 01/04/21 10:06 Nintedanib 150 Mg) PO 1 each BID DOMINICK Administration Omeprazole 40 mg 01/01/21 06:30 01/04/21 10:08 Omeprazole 40 Mg Capsule. PO 40 mg DAILY@0630 DOMINICK Administration Prochlorperazine Edisylate 5 mg 12/31/20 23:21 01/02/21 11:47 Prochlorperazine Edisylate 10 Mg/2 Ml Vial IM 5 mg Q6H PRN Administration Nausea and Vomiting Quetiapine Fumarate 12.5 mg 12/31/20 21:00 01/03/21 19:58 Quetiapine Fumarate 25 Mg Tablet PO 12.5 mg BEDTIME DOMINICK Administration Thiamine HCl 100 mg 01/01/21 09:00 01/04/21 10:08 Thiamine Hcl 100 Mg Tablet PO 100 mg DAILY DOMINICK Administration Allergies Allergies Allergy/AdvReac Type Severity Reaction Status Date / Time Sulfa (Sulfonamide Allergy Unknown UNKNOWN Verified 12/01/20 09:47 Antibiotics) [SULFA (SULFONAMIDE ANTIBIOTICS)] zoster vaccine live Allergy Hives Verified 12/01/20 09:47 Assessment & Plan Assessment & Plan (1) Swallowing dysfunction: Status: Acute Code(s): R13.10 - Dysphagia, unspecified (2) Pulmonary fibrosis: Status: Acute Code(s): J84.10 - Pulmonary fibrosis, unspecified (3) Bipolar I disorder with depression, severe: Status: Acute Code(s): F31.4 - Bipolar disorder, current episode depressed, severe, without psychotic features Assessment and Plan: Impression: hx of severe depression and multiple comorbid medical conditions. Pt currently inpatient for ECT, stability. He missed ECT today, 01/04/21 c/o phlegm in throat. Pt later changed his mind, but by that time, unable to get it. Over the weekend, there were some questions regarding ongoing ECt treatments (see below). Roving Can Tender Will defer to primary team. Over weekend, Dr. Orosco: Patient had shortness of breath on the night prior to ECT required updraft ECT canceled from today. I requested the consult from hospitalist service and have ordered updrafts the patient continues on antibiotics for presumed pulmonary infection. Patient is on Decadron for question of borderline adrenal insufficiency but eventually benefit from ACTH stimulation test. Unclear if patient can tolerate at for ECT at this time reconsult hospitalist service monitor blood pressure fatigue discussed option of referral to rehab patient has loss of extended amount weight ECT has seemed to be helpful even during this extended admission back and forth to the medical floor. Patient scheduled for ECT in 3 days will re-evaluate he is on aspiration precautions see speech ther apadalid a bowel monitor electrolytes recent hyponatremia Over weekend, pt seen by Hospitalist: Date of Service: 01/02/21 Event Note: Patient was seen and evaluated this afternoon. His was at the bedside. Resting in hospital bed on room air. Mildly tachypneic but not requiring and oxygen supplement with stable vitals and oxygen saturation. Reporting increasing anxiety and being worried about ECT therapy. Reported thick mucus and mild coughing with associated shortness of breath upon ambul ation which seems to be around baseline. On physical exam he has left lower lobe crackles from previously known pneumonia. His symptoms seems to be related to his worsening anxiety levels which could be exacerbate with usage of steroids. To decrease Dexamethason to 1mg daily Add Mucinex to loosen his cough consider options other that ECT for treatment as it seems to be concerning for the patient and worsening his anxiety Dictated By:ABDIEL AUGUSTINE MD Greater than 50% of the session was spent on counseling and/or coordination of care Reason for contiued inpatient stay Substantial Risk for: inability to function
[2021-01-04] MEDS: LORazepam 0.5 MG TABLET PO ×2 (13:43→21:19)
[2021-01-04] MEDS: Docusate Sodium 100 MG CAPSULE PO (13:43)
--- NOTE | 2021-01-04 14:54 | MHC.SLORD ---
Speech Language Pathology Order Status: PRINTED CIRCUIT LAYOUT TAPER attempted to see pt for pharyngeal strengthening exercises. Pt refused. He stated that he was not up to it today. PRINTED CIRCUIT LAYOUT TAPER will re-attempt to see pt tomorrow.
[2021-01-04] MEDS: QUEtiapine Fumarate 25 MG TABLET 12.5 MG PO (21:19)
[2021-01-04] MEDS: Mirtazapine 15 MG TABLET PO (21:20)
[2021-01-05] MEDS: Albuterol/Iprat 2.5/0.5MG 3 ML AMPUL.NEB INHALE ×2 (02:38→16:07)
[2021-01-05 02:40] VITALS: PULSE 82; O2SAT 95
[2021-01-05 06:40] VITALS: BP 144/73; PULSE 75; RESP 20; TEMP 36.3; O2SAT 95
[2021-01-05] MEDS: Omeprazole 40 MG CAPSULE.DR PO ×2 (06:47→20:21)
[2021-01-05] MEDS: Brexpiprazole 1 MG TABLET 1.5 MG PO (08:15)
[2021-01-05] MEDS: guaiFENesin LA 600 MG TAB.ER.12H PO ×2 (08:18→20:20)
[2021-01-05] MEDS: Famotidine 20 MG TABLET PO (08:18)
[2021-01-05] MEDS: Thiamine HCL 100 MG TABLET PO (08:19)
[2021-01-05] MEDS: Budesonide 180 MCG AER.POW.BA 2 PUFF INHALE ×2 (08:19→21:04)
[2021-01-05] MEDS: Docusate Sodium 100 MG CAPSULE PO (08:34)
[2021-01-05 09:34] VITALS: BP 125/82; PULSE 78; RESP 18; TEMP 36.1; O2SAT 95
[2021-01-05] MEDS: Prochlorperazine Edisylate 10 MG/2 ML VIAL 5 MG IM (09:57)
[2021-01-05 13:44] VITALS: BP 141/70; PULSE 76; RESP 18; TEMP 36.2; O2SAT 94
--- NOTE | 2021-01-05 13:53 | P.PNPSI_ITS ---
Subjective Subjective Date of Service: 01/05/21 Reason For Visit: severe depression Subjective Notes: Conditional Voluntary Interim History: Patient quite depressed helpless hopeless difficulty he with swallowing and vomiting Medication Compliance: Yes Side effects from medications: Yes Attending Groups: No Mental Status Exam Mental Status Exam Patient Appearance: Disheveled Patient Orientation: Person, Place, Time and Situation Level of Consciousness: Awake Patient Behavior: Passive and Poor Eye Contact Mood Description: Calm, Depressed and Anxious Affect Description: Blunted Ability to Follow Directions: Fair Speech Pattern: Clear Thought Process: Goal Oriented, Linear and Slowed Thinking Thought Content: positive for Perseveration Depressive Symptoms: Increased Anxiety, Diff. Making Decisions, Isolating- Friends/Family, Unhappiness, Thoughts of /Suicide, Loss of Energy and Difficulty Concentrating Judgement: Poor Diagnostics Vital Signs (24Hr): Vital Signs - 24 hr 01/04/21 14:05 01/04/21 16:40 01/04/21 20:00 Temperature 98.4 F 98.1 F Pulse Rate 87 90 91 Respiratory Rate 24 H 24 H Blood Pressure 109/68 121/76 Pulse Oximetry 92 94 01/05/21 02:40 01/05/21 06:40 01/05/21 09:34 Temperature 97.4 F 96.9 F Pulse Rate 82 75 78 Respiratory Rate 20 18 Blood Pressure 144/73 H 125/82 Pulse Oximetry 95 95 01/05/21 13:44 Temperature 97.2 F Pulse Rate 76 Respiratory Rate 18 Blood Pressure 141/70 H Pulse Oximetry 94 Body Mass Index 17.9 Labs Results: 01/05/21 15:05 Medications Medications Current Medications Generic Name Dose Route Start Last Admin Trade Name Freq PRN Reason Stop Dose Admin Acetaminophen 650 mg 12/31/20 17:25 01/01/21 10:33 Acetaminophen 325 Mg Tablet PO 650 mg Q6H PRN Administration Pain, Mild (Pain Scale 1-3) Al Hydroxide/Mg Hydroxide 30 ml 01/02/21 20:32 Magnesium Hydrox/Alum Hydrox 30 Ml Oral.Susp PO Q4H PRN Dyspepsia Albuterol/Ipratropium 3 ml 01/03/21 02:00 01/05/21 02:38 Albuterol/Iprat 2.5/0.5mg 3 Ml Ampul.Neb INHALE 3 ml Q6H DOMINICK Administration Benzocaine 1 lozenge 12/31/20 17:25 01/03/21 14:59 Throat Lozenge, Medicated Lozenge MUCOUS MEM 1 lozenge Q2H PRN Administration Sore Throat Brexpiprazole 1.5 mg 01/01/21 09:00 01/05/21 08:15 Brexpiprazole 1 Mg Tablet PO 1.5 mg DAILY DOMINICK Administration Budesonide 2 puff 12/31/20 20:00 01/05/21 08:19 Budesonide 180 Mcg Aer.Pow.Ba INHALE 2 puff RBID DOMINICK Administration Cefuroxime Axetil 500 mg 12/31/20 21:00 01/05/21 08:17 Cefuroxime Axetil 500 Mg Tablet PO 01/05/21 20:59 500 mg Q12H DOMINICK Administration Dexamethasone 1 mg 01/03/21 09:00 01/05/21 08:18 Dexamethasone 0.5 Mg Tablet PO 1 mg DAILY DOMINICK Administration Docusate Sodium 100 mg 12/31/20 17:25 01/05/21 08:34 Docusate Sodium 100 Mg Capsule PO 100 mg BID PRN Administration constipation Doxycycline Hyclate 100 mg 12/31/20 21:00 01/05/21 08:18 Doxycycline Hyclate 100 Mg Tablet PO 01/05/21 20:59 100 mg Q12H DOMINICK Administration Famotidine 20 mg 01/01/21 09:00 01/05/21 08:18 Famotidine 20 Mg Tablet PO 20 mg DAILY DOMINICK Administration Guaifenesin 600 mg 01/01/21 17:05 01/05/21 08:18 Guaifenesin La 600 Mg Tab.Er.12h PO 600 mg BID DOMINICK Administration Lorazepam 0.5 mg 12/31/20 17:25 01/04/21 13:43 Lorazepam 0.5 Mg Tablet PO 0.5 mg BEDTIME PRN Administration anxiety Lorazepam 0.5 mg 01/02/21 17:14 01/04/21 21:19 Lorazepam 0.5 Mg Tablet PO 0.5 mg Q6H PRN Administration anxiety Mirtazapine 15 mg 12/31/20 21:00 01/04/21 21:20 Mirtazapine 15 Mg Tablet PO 15 mg BEDTIME DOMINICK Administration Patient Own Med ( 1 each 12/31/20 21:00 01/05/21 08:18 Nintedanib 150 Mg) PO 1 each BID DOMINICK Administration Omeprazole 40 mg 01/01/21 06:30 01/05/21 06:47 Omeprazole 40 Mg Capsule. PO 40 mg DAILY@0630 DOMINICK Administration Prochlorperazine Edisylate 5 mg 12/31/20 23:21 01/05/21 09:57 Prochlorperazine Edisylate 10 Mg/2 Ml Vial IM 5 mg Q6H PRN Administration Nausea and Vomiting Quetiapine Fumarate 12.5 mg 12/31/20 21:00 01/04/21 21:19 Quetiapine Fumarate 25 Mg Tablet PO 12.5 mg BEDTIME DOMINICK Administration Thiamine HCl 100 mg 01/01/21 09:00 01/05/21 08:19 Thiamine Hcl 100 Mg Tablet PO 100 mg DAILY DOMINICK Administration Allergies Allergies Allergy/AdvReac Type Severity Reaction Status Date / Time Sulfa (Sulfonamide Allergy Unknown UNKNOWN Verified 12/01/20 09:47 Antibiotics) [SULFA (SULFONAMIDE ANTIBIOTICS)] zoster vaccine live Allergy Hives Verified 12/01/20 09:47 Assessment & Plan Assessment & Plan (1) Swallowing dysfunction: Status: Acute Code(s): R13.10 - Dysphagia, unspecified (2) Pulmonary fibrosis: Status: Acute Code(s): J84.10 - Pulmonary fibrosis, unspecified (3) Bipolar I disorder with depression, severe: Status: Acute Code(s): F31.4 - Bipolar disorder, current episode depressed, severe, without psychotic features Assessment and Plan: Impression: Patient continues to have difficulty with swallowing get repeat speech swallowing consult Discussed with patient and his the possibility of getting a PEG dietary consult ordered Sodium 131 ECT ordered for tomorrow it has been the only thing that has been beneficial to the patient's bipolar depression. I have discussed with the patient his whether or not he will be able to have improvement with given pt severe wt loss Over weekend, pt seen by Hospitalist: Date of Service: 01/02/21 Event Note: Patient was seen and evaluated this afternoon. His was at the bedside. Resting in hospital bed on room air. Mildly tachypneic but not requiring and oxygen supplement with stable vitals and oxygen saturation. Reporting increasing anxiety and being worried about ECT therapy. Reported thi ck mucus and mild coughing with associated shortness of breath upon ambulation which seems to be around baseline. On physical exam he has left lower lobe crackles from previously known pneumonia. His symptoms seems to be related to his worsening anxiety levels which could be exacerbate with usage of steroids. To decrease Dexamethason to 1mg daily Add Mucinex to loosen his cough consider options other that ECT for treatment as it seems to be concerning for the patient and worsening his anxiety Greater than 50% of the session was spent on counseling and/or coordination of care Reason for contiued inpatient stay Substantial Risk for: inability to function, rapid decompensation and med/psych decompensation
[2021-01-05 15:43] LABS: Anion Gap 14 (12-20); Carbon Dioxide 26 mmol/L (22-29); Chloride 96 mmol/L (96-108); Potassium 5.1 mmol/L (3.3-5.1); Sodium 131 mmol/L (135-145)
[2021-01-05] MEDS: LORazepam 0.5 MG TABLET PO ×2 (15:59→21:12)
[2021-01-05 16:25] VITALS: BP 110/75; PULSE 83; RESP 26; TEMP 36.4; O2SAT 94
[2021-01-05 20:00] VITALS: BP 127/86; PULSE 78; RESP 35; TEMP 37.1
[2021-01-05] MEDS: QUEtiapine Fumarate 25 MG TABLET 12.5 MG PO (21:03)
[2021-01-05] MEDS: Mirtazapine 15 MG TABLET PO (21:03)
[2021-01-06] VITALS (15 sets, daily range): BP systolic 111–143; BP diastolic 63–81; PULSE 67–86; RESP 16–22; TEMP 36.1–36.6; O2SAT 93–99; BMI 17.9
--- NOTE | 2021-01-06 07:33 | MHC.SHP ---
Pre-Procedural Eval Section A The patient is an INPATIENT: Yes Changes since office visit: Yes Cold of Flu in the past 2 weeks, Yes New Medical Problems, Yes Changes in Medication and Yes Patient answered all questions The History & Physical has been completed within 30 days and I have reviewed it.: Yes Section B Chief Complaint: severe depression Allergies: Allergies Allergy/AdvReac Type Severity Reaction Status Date / Time Sulfa (Sulfonamide Allergy Unknown UNKNOWN Verified 12/01/20 09:47 Antibiotics) [SULFA (SULFONAMIDE ANTIBIOTICS)] zoster vaccine live Allergy Hives Verified 12/01/20 09:47 Plan I have reviewed the history and physical and performed a pertinent physical examination on my patient. No changes have occurred unless specified.
--- NOTE | 2021-01-06 07:36 | HO.ANESPROP2 ---
[facility], [facility] Active Problems Active Problems: All Active Problems (Updated 01/03/21 @ 19:18 by Ailyn Simmons APRN) Metabolic encephalopathy (Acute) Pneumonia (Acute) Hypotension (Acute) Swallowing dysfunction (Acute) Increased oxygen demand (Acute) Pulmonary fibrosis (Acute) Bipolar I disorder with depression, severe (Acute) CKD (chronic kidney disease) stage 3, GFR 30-59 ml/min (Acute) Bipolar disorder (Acute) Past Medical History Medical History Anemia Anxiety Bronchiectasis Cerebrovascular disease Chronic hyponatremia CKD (chronic kidney disease) stage 3, GFR 30-59 ml/min Degenerative arthritis Depression History of electroconvulsive therapy Hx of bladder cancer Hydrocele Pulmonary fibrosis Pulmonary fibrosis Family History Family History Father Colon cancer Surgical History Surgical History History of bladder surgery Social History Social History Household Members: Spouse Housing: Apartment Do you presently have visiting nurse or other home services: Yes Smoking Status: Former smoker Tobacco Type: Cigarette Packs Per Day: 1 Cigarettes Per Day: 20.0 Years Smoked: 20 Smoked in Last 30 Days: No Patient Interested in Nicotine Replacement: No Patient Given Instructions on How to Stop Smoking: No Second Hand Smoke Exposure: No Use of substances other than those prescribed or required for medical reasons: No Substance Use Type: Marijuana Currently Displaying Signs/Symptoms of Drug Intoxication Withdrawal: No Spiritual Healthcare Practices: none Yazdanism Healthcare Practices: none Cultural Healthcare Practices: none Advance Directives: Yes Advance Directives on File: Yes Advance Directives Date on File: 11/27/20 Do you have thoughts of harming others: None Do you have a plan to hurt others: No Plan Recently lost weight without trying: Yes service: No Current occupational status: retired and disabled Sexual orientation: Straight/Heterosexual Meds Allergies Allergy/AdvReac Type Severity Reaction Status Date / Time Sulfa (Sulfonamide Allergy Unknown UNKNOWN Verified 12/01/20 09:47 Antibiotics) [SULFA (SULFONAMIDE ANTIBIOTICS)] zoster vaccine live Allergy Hives Verified 12/01/20 09:47 Active Medications: Current Medications Generic Name Dose Route Start Last Admin Trade Name Freq PRN Reason Stop Dose Admin Acetaminophen 650 mg 12/31/20 17:25 01/01/21 10:33 Acetaminophen 325 Mg Tablet PO 650 mg Q6H PRN Administration Pain, Mild (Pain Scale 1-3) Al Hydroxide/Mg Hydroxide 30 ml 01/02/21 20:32 Magnesium Hydrox/Alum Hydrox 30 Ml Oral.Susp PO Q4H PRN Dyspepsia Albuterol/Ipratropium 3 ml 01/03/21 02:00 01/06/21 02:34 Albuterol/Iprat 2.5/0.5mg 3 Ml Ampul.Neb INHALE Not Given Q6H DOMINICK Benzocaine 1 lozenge 12/31/20 17:25 01/03/21 14:59 Throat Lozenge, Medicated Lozenge MUCOUS MEM 1 lozenge Q2H PRN Administration Sore Throat Brexpiprazole 1.5 mg 01/01/21 09:00 01/05/21 08:15 Brexpiprazole 1 Mg Tablet PO 1.5 mg DAILY DOMINICK Administration Budesonide 2 puff 12/31/20 20:00 01/05/21 21:04 Budesonide 180 Mcg Aer.Pow.Ba INHALE 2 puff RBID DOMINICK Administration Dexamethasone 1 mg 01/03/21 09:00 01/05/21 08:18 Dexamethasone 0.5 Mg Tablet PO 1 mg DAILY DOMINICK Administration Docusate Sodium 100 mg 12/31/20 17:25 01/05/21 08:34 Docusate Sodium 100 Mg Capsule PO 100 mg BID PRN Administration constipation Famotidine 20 mg 01/01/21 09:00 01/05/21 08:18 Famotidine 20 Mg Tablet PO 20 mg DAILY DOMINICK Administration Guaifenesin 600 mg 01/01/21 17:05 01/05/21 20:20 Guaifenesin La 600 Mg Tab.Er.12h PO 600 mg BID DOMINICK Administration Lorazepam 0.5 mg 12/31/20 17:25 01/05/21 21:12 Lorazepam 0.5 Mg Tablet PO 0.5 mg BEDTIME PRN Administration anxiety Lorazepam 0.5 mg 01/02/21 17:14 01/05/21 15:59 Lorazepam 0.5 Mg Tablet PO 0.5 mg Q6H PRN Administration anxiety Mirtazapine 15 mg 12/31/20 21:00 01/05/21 21:03 Mirtazapine 15 Mg Tablet PO 15 mg BEDTIME DOMINICK Administration Patient Own Med ( 1 each 12/31/20 21:00 01/05/21 21:03 Nintedanib 150 Mg) PO 1 each BID DOMINICK Administration Omeprazole 40 mg 01/06/21 06:30 01/05/21 20:21 Omeprazole 40 Mg Capsule.Dr PO 40 mg BID@3030,9940 DOMINICK Administration Prochlorperazine Edisylate 5 mg 12/31/20 23:21 01/05/21 09:57 Prochlorperazine Edisylate 10 Mg/2 Ml Vial IM 5 mg Q6H PRN Administration Nausea and Vomiting Quetiapine Fumarate 12.5 mg 12/31/20 21:00 01/05/21 21:03 Quetiapine Fumarate 25 Mg Tablet PO 12.5 mg BEDTIME DOMINICK Administration Thiamine HCl 100 mg 01/01/21 09:00 01/05/21 08:19 Thiamine Hcl 100 Mg Tablet PO 100 mg DAILY DOMINICK Administration Home Medications Medication Instructions Recorded Confirmed Last Taken Type Latuda 1 tab PO DAILY 11/25/20 12/31/20 11/25/20 History Ofev 150 mg PO BID 11/25/20 12/31/20 11/25/20 History docusate sodium [Stool Softener] 1 cap PO BID PRN 11/25/20 12/31/20 11/25/20 History lorazepam 1 tab PO BID PRN 11/25/20 12/31/20 11/25/20 History mirtazapine 1 tab PO BEDTIME 11/25/20 12/31/20 11/24/20 History ondansetron 1 tab PO Q8H PRN 11/25/20 12/31/20 Unknown History quetiapine 37.5 mg PO BEDTIME 11/25/20 12/31/20 11/24/20 History Exam Exam Date and Time: January 06, 2021 0736 Height,Weight and Vital Signs: Height 5 ft 7 in Weight 52 kg Last Vital Signs Temp 97.1 F 01/06/21 06:57 Pulse 83 01/06/21 06:57 Resp 16 01/06/21 06:57 BP 132/81 01/06/21 06:57 Pulse Ox 94 01/06/21 06:57 Pertinent Lab Results Pertinent Lab Results: Laboratory Tests 01/01/21 01/05/21 14:34 15:05 Sodium 132 L 131 L Potassium 5.2 H 5.1 Chloride 97 96 Carbon Dioxide 27 26 Anion Gap 13 14 BUN 25 H Creatinine 1.00 Estim Creat Clear Calc 45.7 Estimated GFR > 60 Random Glucose 145 H D Calcium 9.2 Total Bilirubin 0.5 AST 36 D ALT 29 Alkaline Phosphatase 137 H D Total Protein 6.7 D Albumin 3.1 L D Airway Mallampati Class: III TM Dist: >3cm Neck ROM: Full Lungs: RRR Other: CTA
--- NOTE | 2021-01-06 07:41 | HO.ECTPROC ---
ECT Procedure Note Diagnosis/Treatment Date of Service: 01/06/21 Diagnosis: Bipolar disorder Previous ECT Date: 12/25/20 Current Treatment Number: 3 Treatment: Series Interval Clinical Notes: pt severely depressed swallowing difficulty on steroids recent pulm infection ECT Settings Device: THYMATRON DGx Electrode Placement: Bifrontal Program/Pulse Width: 0.25 Energy Percent: 100 Seizure Duration By EEG (in seconds): 36 Medications Administration General Anesthetic: Etomidate (10) Muscle Relaxant: Rocuronium (20) and Other (suggamadex 200 mg ) Ancillary Medications Analgesics: Torodol - Pre ECT Anti-emetics: Zofran - Pre ECT Miscillaneous Medications: Midazolam (1mg) Airway Management Airway Management: Bag Mask Ventilation Treatment Recommendations Notes: changed to bf secondary to confusion with BT anesthesia used rocuronium with potassium 5.1 in rocuronium next tx HEAD OF BED KEPT ELEVATED TO PREVENT ASPIRATION Pt Tolerated Procedure w/o Issue: Yes
[2021-01-06] MEDS: Prochlorperazine Edisylate 10 MG/2 ML VIAL 5 MG IM (09:42)
[2021-01-06] MEDS: Budesonide 180 MCG AER.POW.BA 2 PUFF INHALE ×2 (09:42→20:04)
--- NOTE | 2021-01-06 11:58 | MHC.SLORD ---
Speech Language Pathology Order Status: Patient is scheduled for repeat MBSS this afternoon at 1400.
--- NOTE | 2021-01-06 14:33 | MHC.CLN ---
RE: CONSULT PT IS SEVERELY MALNOURISHED PT WITH MODERATELY DEPLETED SUBCUTANEOUS FAT AND MUSCLE MASS, BMI 17.9 AND 18% SIG WT LOSS X 30DAYS WITH POOR PO INTAKE DIET RX: GROUND WITH NT LIQ-APPROPRIATE RESIDENTIAL ADVISOR FOLLOWING FOR DIET CONSISTENCY REPEAT MBS TODAY PER RESIDENTIAL ADVISOR; PT C/O DISLIKES ENSURE AND THICKENED LIQUIDS TOO THICK TO CONSUME PT RECEIVING ENSURE PUDDING TID PROVIDES 510KCALS, 12G PROTEIN PO INTAKE 75% AVG (01/03-01/06) CONSULT PER MD FOR PEG TUBE WILL NEED GI CONSULT FOR PLACEMENT IF TF NEEDED; RECOMMEND JEVITY AT MAX GOAL RATE 60CC/HR WITH 120CC FREE WATER FLUSHES Q SHIFT TO PROVIDE 1526KCALS, 63G PROTEIN, 1562CC TOTAL WATER FROM FORMULA AND FLUSHES SEE ALSO CLINICAL NUTRITION ASSESSMENT
[2021-01-06] MEDS: Omeprazole 40 MG CAPSULE.DR PO (16:13)
--- NOTE | 2021-01-06 19:37 | P.PNPSI_ITS ---
Subjective Subjective Date of Service: 01/06/21 Reason For Visit: severe depression Subjective Notes: Conditional Voluntary Interim History: Patient tolerated ECT afterward quite lethargic nauseous fatigued . HE and his have not discussed the possibility of a PEG he was unable to complete swallowing barium swallow today Medication Compliance: Yes Side effects from medications: Yes Review of Systems Review of Systems Lethargic with nausea and vomiting. Episodes of shortness of breath O2 sats have been in the 90s groin rash Weakness Mental Status Exam Mental Status Exam Patient Appearance: Disheveled Patient Orientation: Person, Place, Time and Situation Level of Consciousness: Lethargic Patient Behavior: Appropriate, Passive, Avoidant and Poor Eye Contact Mood Description: Calm, Withdrawn, Constricted, Depressed and Anxious Affect Description: Blunted Ability to Follow Directions: Fair Speech Pattern: Clear Memory Description: Episodic Impaired Hallucinations: None Thought Process: Linear and Slowed Thinking Thought Content: positive for Perseveration, positive for Poverty of Content, negative for Suicidal Ideation and negative for Homicidal Ideation Depressive Symptoms: Increased Anxiety, Diff. Making Decisions, Isolating- Friends/Family, Unhappiness, Thoughts of /Suicide, Loss of Energy and Difficulty Concentrating Judgement: Fair Diagnostics Vital Signs (24Hr): Vital Signs - 24 hr 01/05/21 20:00 01/06/21 03:21 01/06/21 05:45 Temperature 98.7 F 97 F Pulse Rate 78 73 81 Respiratory Rate 35 H 22 H Blood Pressure 127/86 132/75 Pulse Oximetry 95 01/06/21 05:58 01/06/21 06:57 01/06/21 08:00 Temperature 97 F 97.1 F 97.7 F Pulse Rate 81 83 67 Respiratory Rate 22 H 16 16 Blood Pressure 132/75 132/81 111/68 Pulse Oximetry 95 94 94 01/06/21 08:07 01/06/21 08:12 01/06/21 08:17 Temperature 97.8 F Pulse Rate 71 73 71 Respiratory Rate 16 17 20 Blood Pressure 111/68 128/77 127/75 Pulse Oximetry 99 99 99 01/06/21 08:22 01/06/21 08:37 01/06/21 08:52 Temperature Pulse Rate 71 72 70 Respiratory Rate 21 H 17 19 Blood Pressure 139/76 141/79 H Pulse Oximetry 99 97 94 01/06/21 09:02 01/06/21 12:40 01/06/21 16:00 Temperature 97.8 F 97.7 F 97.3 F Pulse Rate 74 83 75 Respiratory Rate 20 16 Blood Pressure 143/78 H 116/63 143/68 H Pulse Oximetry 97 96 93 Body Mass Index 17.9 Labs Results: 01/05/21 15:05 Labs: Laboratory Results - last 48 hr 01/05/21 15:05 Sodium 131 L Potassium 5.1 Chloride 96 Carbon Dioxide 26 Anion Gap 14 Medications Medications Current Medications Generic Name Dose Route Start Last Admin Trade Name Freq PRN Reason Stop Dose Admin Acetaminophen 650 mg 12/31/20 17:25 01/01/21 10:33 Acetaminophen 325 Mg Tablet PO 650 mg Q6H PRN Administration Pain, Mild (Pain Scale 1-3) Al Hydroxide/Mg Hydroxide 30 ml 01/02/21 20:32 Magnesium Hydrox/Alum Hydrox 30 Ml Oral.Susp PO Q4H PRN Dyspepsia Albuterol/Ipratropium 3 ml 01/03/21 02:00 01/06/21 13:48 Albuterol/Iprat 2.5/0.5mg 3 Ml Ampul.Neb INHALE Not Given Q6H [facility] Benzocaine 1 lozenge 12/31/20 17:25 01/03/21 14:59 Throat Lozenge, Medicated Lozenge MUCOUS MEM 1 lozenge Q2H PRN Administration Sore Throat Brexpiprazole 1.5 mg 01/01/21 09:00 01/06/21 13:50 Brexpiprazole 1 Mg Tablet PO Not Given DAILY [facility] Budesonide 2 puff 12/31/20 20:00 01/06/21 09:42 Budesonide 180 Mcg Aer.Pow.Ba INHALE 2 puff RBID [facility] Administration Clotrimazole 1 appl 01/06/21 21:00 Clotrimazole 1 % Cream 15 Gm Tube TOPICAL BID [facility] Protocol Dexamethasone 1 mg 01/03/21 09:00 01/06/21 13:50 Dexamethasone 0.5 Mg Tablet PO Not Given DAILY [facility] Docusate Sodium 100 mg 12/31/20 17:25 01/05/21 08:34 Docusate Sodium 100 Mg Capsule PO 100 mg BID PRN Administration constipation Famotidine 20 mg 01/01/21 09:00 01/06/21 13:50 Famotidine 20 Mg Tablet PO Not Given DAILY [facility] Guaifenesin 600 mg 01/01/21 17:05 01/06/21 13:51 Guaifenesin La 600 Mg Tab.Er.12h PO Not Given BID [facility] Lorazepam 0.5 mg 12/31/20 17:25 01/05/21 21:12 Lorazepam 0.5 Mg Tablet PO 0.5 mg BEDTIME PRN Administration anxiety Lorazepam 0.5 mg 01/02/21 17:14 01/05/21 15:59 Lorazepam 0.5 Mg Tablet PO 0.5 mg Q6H PRN Administration anxiety Mirtazapine 15 mg 12/31/20 21:00 01/05/21 21:03 Mirtazapine 15 Mg Tablet PO 15 mg BEDTIME [facility] Administration Patient Own Med ( 1 each 12/31/20 21:00 01/06/21 13:51 Nintedanib 150 Mg) PO Not Given BID [facility] Omeprazole 40 mg 01/06/21 06:30 01/06/21 16:13 Omeprazole 40 Mg Capsule. PO 40 mg BID@0630,8160 [facility] Administration Prochlorperazine Edisylate 5 mg 12/31/20 23:21 01/06/21 09:42 Prochlorperazine Edisylate 10 Mg/2 Ml Vial IM 5 mg Q6H PRN Administration Nausea and Vomiting Quetiapine Fumarate 12.5 mg 12/31/20 21:00 01/05/21 21:03 Quetiapine Fumarate 25 Mg Tablet PO 12.5 mg BEDTIME [facility] Administration Thiamine HCl 100 mg 01/01/21 09:00 01/06/21 13:51 Thiamine Hcl 100 Mg Tablet PO Not Given DAILY [facility] Allergies Allergies Allergy/AdvReac Type Severity Reaction Status Date / Time Sulfa (Sulfonamide Allergy Unknown UNKNOWN Verified 12/01/20 09:47 Antibiotics) [SULFA (SULFONAMIDE ANTIBIOTICS)] zoster vaccine live Allergy Hives Verified 12/01/20 09:47 Assessment & Plan Assessment & Plan (1) Swallowing dysfunction: Status: Acute Code(s): R13.10 - Dysphagia, unspecified (2) Pulmonary fibrosis: Status: Acute Code(s): J84.10 - Pulmonary fibrosis, unspecified (3) Bipolar I disorder with depression, severe: Status: Acute Code(s): F31.4 - Bipolar disorder, current episode depressed, severe, without psychotic features Assessment and Plan: Impression: Regarding so in dysfunction Patient continues to have difficulty with swallowing get repeat speech swallowing consult Discussed with patient and his the possibility of getting a PEG dietary consult ordered Swallowing study repeat ordered Regarding bipolar depression Continue ECT it has been the only thing that has been beneficial to the patient's bipolar depression. I have discussed with the patient his whether or not he will be able to have improvement with given pt severe wt loss During ECT today the patient was treated with a non diploma rising agent because of his potassium of 5.1 Greater than 50% of the session was spent on counseling and/or coordination of care Reason for contiued inpatient stay Substantial Risk for: harm to self, inability to function, rapid decompensation and med/psych decompensation
[2021-01-06] MEDS: QUEtiapine Fumarate 25 MG TABLET 12.5 MG PO (20:02)
[2021-01-06] MEDS: Mirtazapine 15 MG TABLET PO (20:02)
[2021-01-06] MEDS: guaiFENesin LA 600 MG TAB.ER.12H PO (20:03)
[2021-01-06] MEDS: Clotrimazole 1 % Cream 15 GM TUBE 1 APPL TOPICAL (20:25)
[2021-01-06] MEDS: LORazepam 0.5 MG TABLET PO (20:29)
[2021-01-07 06:23] VITALS: BP 105/64; PULSE 84; RESP 24; TEMP 37.3; O2SAT 92
[2021-01-07 07:00] VITALS: BMI 17.9
[2021-01-07] MEDS: Brexpiprazole 1 MG TABLET 1.5 MG PO (08:51)
[2021-01-07] MEDS: Thiamine HCL 100 MG TABLET PO (08:52)
[2021-01-07] MEDS: Famotidine 20 MG TABLET PO (08:52)
[2021-01-07] MEDS: Omeprazole 40 MG CAPSULE.DR PO (08:52)
[2021-01-07] MEDS: guaiFENesin LA 600 MG TAB.ER.12H PO (08:52)
[2021-01-07] MEDS: Budesonide 180 MCG AER.POW.BA 2 PUFF INHALE (09:24)
[2021-01-07 09:26] VITALS: BP 109/64; PULSE 80; RESP 18; TEMP 36.5; O2SAT 94
--- NOTE | 2021-01-07 09:38 | P.CDIC_ITS ---
CDI Concurrent Query Service Date: 01/07/21 Documentation Clarification: Please clarify if you are treating a proba ble/suspected/likely or confirmed: Malutrition, mild,moderate or severe Please specify if known PLEASE DO NOT DELETE/MODIFY EXISTING CONTENT Additional information is needed in order to code to the highest accuracy and appropriate Severity of Illness (SOI). Please clarify the information noted below in your progress notes and discharge summary. Risk Factors/Clinical Indicators/Treatments BMI 17.9 with 18% sig weight loss swallowing dysfunction Nutrition assessment - pt is severely malnourished, moderate depletion of subcutaneous fat and muscle mass. Ensure added to promote increased calories. CDS: Mary Leong CCS, [facility]IS Contact Number: Ext. Please Review the information above and exercise your independent professional judgment in responding to the query. If you concur, pleas document in the PROGRESS NOTES and DISCHARGE SUMMARY. If you do not agree with the query, please document in the query above. THIS QUERY IS PART OF THE PERMANENT MEDICAL RECORD
--- NOTE | 2021-01-07 10:26 | MHC.SLORD ---
Speech Language Pathology Order Status: RN called down to radiology yesterday to reschedule MBSS as patient is lethargic after ECT treatment. MBSS was rescheduled for today at 2:15pm. Recommendations to follow.
--- NOTE | 2021-01-07 10:40 | HO.PSYCHPN ---
Subjective Subjective Date of Service: 01/07/21 Reason For Visit: severe depression Subjective Notes: Conditional Voluntary Interim History: Patient seen today extensively with family including daughters and later with Dr. Lopez. The patient remains depressed apathetic he had agreed to PEG. Patient did have a barium swallow later today that did suggest aspiration which is a deterioration from last month. They did recommend NPO patient was scheduled for ECT tomorrow patient continues on one-to-one he has had aspiration precautions he did have nectar fluids. Diet Medication Compliance: Yes Attending Groups: No Mental Status Exam Mental Status Exam Patient Appearance: Disheveled Patient Orientation: Person, Place, Time and Situation Level of Consciousness: Drowsy and Lethargic Patient Behavior: Appropriate, Passive, Avoidant and Poor Eye Contact Mood Description: Calm, Withdrawn, Constricted, Depressed and Anxious Affect Description: Withdrawn, Depressed and Blunted Ability to Follow Directions: Fair Speech Pattern: Impoverished, Monotone and Soft-Spoken Memory Description: Episodic Impaired Hallucinations: None Thought Process: Linear and Slowed Thinking Thought Content: positive for [place], positive for Perseveration, positive for Poverty of Content, negative for Suicidal Ideation and negative for Homicidal Ideation Depressive Symptoms: Increased Anxiety, Diff. Making Decisions, Sleeping More Than Usual, Isolating-Friends/Family, Unhappiness, Thoughts of /Suicide, Loss of Energy and Difficulty Concentrating Judgement: Fair Diagnostics Vital Signs (24Hr): Vital Signs - 24 hr 01/06/21 12:40 01/06/21 16:00 01/06/21 20:00 Temperature 97.7 F 97.3 F Pulse Rate 83 75 86 Respiratory Rate 16 22 H Blood Pressure 116/63 143/68 H 123/65 Pulse Oximetry 96 93 95 01/07/21 06:23 01/07/21 09:26 Temperature 99.2 F 97.7 F Pulse Rate 84 80 Respiratory Rate 24 H 18 Blood Pressure 105/64 109/64 Pulse Oximetry 92 94 Body Mass Index 17.9 Labs Results: 01/05/21 15:05 Labs: Laboratory Results - last 48 hr 01/05/21 15:05 Sodium 131 L Potassium 5.1 Chloride 96 Carbon Dioxide 26 Anion Gap 14 Medications Medications Current Medications Generic Name Dose Route Start Last Admin Trade Name Freq PRN Reason Stop Dose Admin Acetaminophen 650 mg 12/31/20 17:25 01/01/21 10:33 Acetaminophen 325 Mg Tablet PO 650 mg Q6H PRN Administration Pain, Mild (Pain Scale 1-3) Al Hydroxide/Mg Hydroxide 30 ml 01/02/21 20:32 Magnesium Hydrox/Alum Hydrox 30 Ml Oral.Susp PO Q4H PRN Dyspepsia Albuterol/Ipratropium 3 ml 01/03/21 02:00 01/07/21 03:06 Albuterol/Iprat 2.5/0.5mg 3 Ml Ampul.Neb INHALE Not Given Q6H [facility] Benzocaine 1 lozenge 12/31/20 17:25 01/03/21 14:59 Throat Lozenge, Medicated Lozenge MUCOUS MEM 1 lozenge Q2H PRN Administration Sore Throat Brexpiprazole 1.5 mg 01/01/21 09:00 01/07/21 08:51 Brexpiprazole 1 Mg Tablet PO 1.5 mg DAILY [facility] Administration Budesonide 2 puff 12/31/20 20:00 01/07/21 09:24 Budesonide 180 Mcg Aer.Pow.Ba INHALE 2 puff RBID [facility] Administration Clotrimazole 1 appl 01/06/21 21:00 01/06/21 20:25 Clotrimazole 1 % Cream 15 Gm Tube TOPICAL 1 appl BID [facility] Administration Protocol Dexamethasone 1 mg 01/03/21 09:00 01/07/21 08:52 Dexamethasone 0.5 Mg Tablet PO 1 mg DAILY [facility] Administration Docusate Sodium 100 mg 12/31/20 17:25 01/05/21 08:34 Docusate Sodium 100 Mg Capsule PO 100 mg BID PRN Administration constipation Famotidine 20 mg 01/01/21 09:00 01/07/21 08:52 Famotidine 20 Mg Tablet PO 20 mg DAILY [facility] Administration Guaifenesin 600 mg 01/01/21 17:05 01/07/21 08:52 Guaifenesin La 600 Mg Tab.Er.12h PO 600 mg BID [facility] Administration Lorazepam 0.5 mg 12/31/20 17:25 01/06/21 20:29 Lorazepam 0.5 Mg Tablet PO 0.5 mg BEDTIME PRN Administration anxiety Lorazepam 0.5 mg 01/02/21 17:14 01/05/21 15:59 Lorazepam 0.5 Mg Tablet PO 0.5 mg Q6H PRN Administration anxiety Mirtazapine 15 mg 12/31/20 21:00 01/06/21 20:02 Mirtazapine 15 Mg Tablet PO 15 mg BEDTIME [facility] Administration Patient Own Med ( 1 each 12/31/20 21:00 01/07/21 08:55 Nintedanib 150 Mg) PO 1 each BID [facility] Administration Omeprazole 40 mg 01/06/21 06:30 01/07/21 08:52 Omeprazole 40 Mg Capsule. PO 40 mg BID@0630,9410 [facility] Administration Prochlorperazine Edisylate 5 mg 12/31/20 23:21 01/06/21 09:42 Prochlorperazine Edisylate 10 Mg/2 Ml Vial IM 5 mg Q6H PRN Administration Nausea and Vomiting Quetiapine Fumarate 12.5 mg 12/31/20 21:00 01/06/21 20:02 Quetiapine Fumarate 25 Mg Tablet PO 12.5 mg BEDTIME [facility] Administration Thiamine HCl 100 mg 01/01/21 09:00 01/07/21 08:52 Thiamine Hcl 100 Mg Tablet PO 100 mg DAILY [facility] Administration Allergies Allergies Allergy/AdvReac Type Severity Reaction Status Date / Time Sulfa (Sulfonamide Allergy Unknown UNKNOWN Verified 12/01/20 09:47 Antibiotics) [SULFA (SULFONAMIDE ANTIBIOTICS)] zoster vaccine live Allergy Hives Verified 12/01/20 09:47 Assessment & Plan Assessment & Plan (1) Swallowing dysfunction: Status: Acute Code(s): R13.10 - Dysphagia, unspecified (2) Pulmonary fibrosis: Status: Acute Code(s): J84.10 - Pulmonary fibrosis, unspecified (3) Bipolar I disorder with depression, severe: Status: Acute Code(s): F31.4 - Bipolar disorder, current episode depressed, severe, without psychotic features Assessment and Plan: Impression: Regarding so in dysfunction Patient now NPO patient was seen by Dr. Lopez PEG ordered for tomorrow patient gave informed consent case reviewed extensively with Dr. Chairez from hospitalist service who started IV fluids Neurology consult and nephrology consult unclear reasons for swallowing dysfunction probably contributing to patient's pulmonary status he has lost extensive amount of weight over the past few months and over the past week. There has been a question regarding glucocorticoid deficit question regarding neurological dysfunction. No obvious parkinsonian symptoms no obvious movement disorder past MRI showed microvascular disease Regarding bipolar depression ECT currently on hold for tomorrow NPO currently try to give lorazepam at bedtime Consider re-evaluate medication post PEG placement Greater than 50% of the session was spent on counseling and/or coordination of care Reason for contiued inpatient stay Substantial Risk for: inability to function, rapid decompensation and med/psych decompensation
[2021-01-07] MEDS: Clotrimazole 1 % Cream 15 GM TUBE 1 APPL TOPICAL ×2 (10:51→20:45)
[2021-01-07] MEDS: LORazepam 0.5 MG TABLET PO (12:32)
[2021-01-07 16:00] VITALS: BP 105/58; PULSE 78; RESP 22; TEMP 37.2; O2SAT 94
--- NOTE | 2021-01-07 17:40 | MHC.MBSS ---
Modified Barium Swallow Study Speech MBSS Evaluation Start: 01/06/21 09:39 Freq: DIRECTED Status: Active Protocol: Activity Type Activity Date Activity User E-Sign Co-Sign Detail Recorded Client Recorded Date Recorded By Document 01/07/21 15:34 [email or web address] [id number] 01/07/21 17:39 [email or web address] 01/07/21 15:34 Adult Speech and Language Evaluation Referring provider Dr. Blane Chowdhury Reason for Referral Aspiration Type of Treatment 00010 Modified Barium Swallow Study Evaluation Date/Plan of Treatment 01/07/21 Established or Reviewed Date Patient First Became Aware of 12/10/20 Symptoms: Date Treatment Started 12/10/20 Medical Diagnosis Pt admitted to for severe depression/ anxiety Primary Speech Language Diagnosis R13.12 Oropharyngeal Phase Dysphagia Background History Pt is a 80 year old male who was admitted to on 11/25 for worsening depression and anxiety. On , pt underwent electroconvulsi ve therapy (ECT ) for management of his depression. Pt's hospitalization was complicated on 12/01 due to sudden onset of SOB. A rapid response was called and pt was transferred to medical floor where he was noted to have severe sepsis with fever, tachycardia and hypotension. Pt's presumed diagnosis is aspiration pneumonia. On 12/04 pt was medically cleared for discharge back to . Repeat CXR revealed no acute findings but chronic severe pulmonary fibrosis. A bedside swallow evaluation was ordered due to presumed ASP PNA. Results of bedside swallow evaluation were inconclusive thus recommendation for MBSS was made. MBSS completed on revealed penetration with both thin and nectar thick liquids, moderate pharyngeal residue, and reduced pharyngeal contraction. At that time, NUTRITIONAL SERVICES DIRECTOR recommended CHOPPED/ ADVANCED (NDD3) solids and NECTAR THICK LIQUIDS with pills CRUSHED OR WHOLE IN PUREE. NUTRITIONAL SERVICES DIRECTOR also recommended pharyngeal strengthening exercises. Pt has been completing the exercises as appropriate and with supervision of NUTRITIONAL SERVICES DIRECTOR 2/3 times weekly. Pt often refuses treatment. Pt's hospitalization was further complicated by drop in BP accompanied with fever on 12/27, requiring transfer to medical floor for management. Pt was found to have lower left lobe consolidation on chest CT. Pt discharged and admitted back to on 12/31. Since readmission to , pt continues to complain of difficulty swallowing, globus sensation, and coughing up phlegm. Repeat MBSS recommended by NUTRITIONAL SERVICES DIRECTOR to re- assess severity of dysphagia. Medical History Arthritis, Cancer: other, COPD,Emotional or Psychological Issues,Stroke Additional Medical History Anxiety, anemia , bronchiectasis, cerebrovascular disease, CHF, CKD, chronic hyponatremia, degenerative arthritis, depression, hx ECT, hx bladder cancer, hydrocele, pulmonary fibrosis, COPD, CVA Medication List Please see in pt chart. Recent Hospitalizations: If yes, enter Yes: PNA admitting diagnosis Respiratory Needs/Oxygen Delivery Room Air Patient Orientation Person, Place Only Dysphagia Specific Oralpharyngeal Dysphagia Comments MBSS from 12/10 recommendation : CHOPPED/ ADVANCED SOLIDS (NDD3), NECTAR THICK LIQUIDS, PILLS CRUSHED OR WHOLE IN PUREE On 12/28 pt stated that he becomes easily fatigued while eating and requested softer foods. Pt DOWNGRADED to PUREED SOLIDS. Pt upgraded to GROUND.MECH ( NDD2) on 12/31. Pre-eval Risk for Aspiration Medically Fragile,History of Pneumonia, Poor PO Intake, Weak Cough Pre-evaluation Dietary Consistencies Grnd/Mech Altered (NDD2) Pre-eval Liquid Intake [place] Thick Pre-eval Medication Intake Whole with Puree Voice Phonatory-based Quality Normal Voice Pitch Normal Voice Loudness Normal Speech, Language, Cognition difficulties Swallowing History Current Living Situation Currently admitted to . Pt usually lives at home with . Therapies Seen in Past Calendar Year Respiratory Therapy,Speech Therapy Comment: Pt receiving speech therapy services for pharyngeal strengthening exercises during inpatient stay. Oral Motor, Secretions and Volitional Cough Oral Motor Exam Oral Motor Exam Unremarkable Facial Symmetry Symmetrical Facial Movement Controlled Mouth Occlusion Normal Oral-Facial Teeth Characteristics Intact/Normal Is patient able to manage secretions? Yes Is patient able to produce volitional Yes cough? Clinical Observations Pt able to produce volitional cough on command, however cough is weak. MBS Trials Oral Phase Intact Labial Seal Did Not Test A/P Transit Did Not Test Lingual Movement Did Not Test Rotary Mastication Did Not Test Premature Spillage Did Not Test Oral Residue Did Not Test Labial Seal Intact A/P Transit Intact Lingual Movement Intact Rotary Mastication Did Not Test Premature Spillage Intact Oral Residue Intact Labial Seal Intact A/P Transit Intact Lingual Movement Intact Rotary Mastication Did Not Test Premature Spillage Intact Oral Residue Intact Labial Seal Intact A/P Transit Intact Lingual Movement Intact Rotary Mastication Did Not Test Premature Spillage Intact Oral Residue Impaired Pharyngeal Phase Impaired Velopharyngeal Closure Intact Tongue Base Retraction Impaired Laryngeal Excursion Impaired Epiglottal Deflection Impaired Pharyngeal Peristalsis Impaired Valleculae Clearing Impaired Pyriform Clearing Impaired UES Opening Impaired Penetration Impaired Aspiration Intact Velopharyngeal Closure Intact Tongue Base Retraction Impaired Laryngeal Excursion Impaired Epiglottal Deflection Impaired Pharyngeal Peristalsis Impaired Valleculae Clearing Impaired Pyriform Clearing Impaired UES Opening Impaired Penetration Impaired Aspiration Intact Velopharyngeal Closure Impaired Tongue Base Retraction Impaired Laryngeal Excursion Impaired Epiglottal Deflection Impaired Pharyngeal Peristalsis Impaired Valleculae Clearing Impaired Pyriform Clearing Impaired UES Opening Impaired Aspiration Impaired Evaluation End Dysphagia Diet Status Downgrade Liquid Thickness Recommendation NPO Dietary Recommendations NPO Additional Modifications to Solid Foods CLINICAL for Safe Swallow OBSERVATIONS: Laryngeal Penetration and Aspiration: Penetration and aspiration were observed in today's study. [place]- thick, and Honey-thick Contrast entered the airway, contacted the vocal folds, and were ejected from the airway. Pureed solid entered the airway through the vocal folds and was not ejected despite effort. ASSESSMENT: This exam was conducted by speech language pathologist and radiologist with patient seated at 90 degrees for lateral view only. Patient trialed the following liquid and solid consistencies: -nectar thick liquid barium via cup sip -honey thick liquid barium via cup sip -pureed solid ( applesauce mixed with barium paste) Patient displays SEVERE pharyngeal phase dysphagia characterized by the following components of swallowing physiology. ORAL PHASE: -mildly prolonged oral preparatory phase -mild oral residue with thicker consistencies PHARYNGEAL PHASE: -partial laryngeal elevation and excursion -incomplete laryngeal vestibular closure -reduced tongue base retraction -moderate to severe pharyngeal residue -Vallecular residue pooling over the epiglottis Aspiration and penetration evident during this evaluation . Pureed consistency entered the airway and progressed through the vocal folds and was not ejected despite cough. [place] thick and honey thick contrast entered the airway, made contact with the vocal folds and spontaneously ejected. During this evaluation, significant pharyngeal retention was noted with all consistencies. [place] thick liquids were trialed first, as this is pt's baseline. Penetration and moderate pharyngeal residue visualized in the valleculae and pyriform sinuses. Honey thick contrast produced the same results. When given a bite of applesauce, aspiration evident. Pt coughed however , nonproductive . Significant pharyngeal residue, reduced pharyngeal peristalsis, and reduced hyolaryngeal excursion. Due to significant pharyngeal residue and evidence of aspiration on MBSS, pt is recommended NPO . Dysphagia Medication Administration NPO Recommendation for Speech Therapy Speech Therapy through Rehab Facility Text Comment It is recommended that Mr. Azar participate in a comprehensive swallow evaluation by speech therapist trained in [employer] to determine candidacy for treatment. This treatment is provided at [facility] located in [place], [place]. Timeline to reassess PRN Impact Prognosis Activity Limitations None: Education Employmen t Mild: Interpers onal interacti ons Mod: Daily activities Community Prognosis for Improvement Guarded Goals, Objectives, Actions Notes Based on the results of this evaluation, pt is recommended NPO. Due to evidence of aspiration with purees solids and significant pharyngeal residue, pt is at high risk of aspirating when eating and drinking. NUTRITIONAL SERVICES DIRECTOR spoke to pt 's , Mei Azar RE: recommendations . Pt's demonstrated understanding of results. NUTRITIONAL SERVICES DIRECTOR spoke to MD over phone with recommendations and referrals. - Recommended Referrals Alternate Feeding Method, Dietary Consult ,GI Consult, Neurology Other Referrals A neuro consult is recommended to evaluate for etiology of dysphagia. Completed: Yes Patient/Caregiver Education Described Results of Evaluation, Patient expressed understanding of evaluation, Family/ Caregivers expressed understanding of results, Family/ Caregivers expressed agreement with goals and treatment plan Comments/Barriers to Learning: It is important to note that MBSS objective studies are snapshots in time and patient function might vary with factors such as time of day or concomitant medical conditions. For this reason, the final treatment plan for this patient should rest with their medical care team. Additional recommendations should be considered with the totality of the patient in mind. Thank you for the opportunity to participate in the care of this patient. If you have any questions about the content of this report, please contact the [facility] at [facility]. [ End ] Board Layer Clinician/Clinical Yes: Aleyda Iqbal M.A., CF-NUTRITIONAL SERVICES DIRECTOR Bipolar disorder, current episode depressed, severe, without psychotic features (12/31/20) Pulmonary fibrosis, unspecified (12/31/20) Dysphagia, unspecified (12/31/20)
--- NOTE | 2021-01-07 17:44 | MHC.SL.DTX ---
MBSS RESULTS Background Information: Pt is a 80 year old male who was admitted to on 11/25 for worsening depression and anxiety. On 11/27, pt underwent electroconvulsive therapy (ECT) for management of his depression. Pt's hospitalization was complicated on 12/01 due to sudden onset of SOB. A rapid response was called and pt was transferred to medical floor where he was noted to have severe sepsis with fever, tachycardia and hypotension. Pt's presumed diagnosis is aspiration pneumonia. On 12/04 pt was medically cleared for discharge back to . Repeat CXR revealed no acute findings but chronic severe pulmonary fibrosis. A bedside swallow evaluation was ordered due to presumed ASP PNA. Results of bedside swallow evaluation were inconclusive thus recommendation for MBSS was made. MBSS completed on 12/10 revealed penetration with both thin and nectar thick liquids, moderate pharyngeal residue, and reduced pharyngeal contraction. At that time, CLEAN OUT DRILLER recommended CHOPPED/ADVANCED (NDD3) solids and NECTAR THICK LIQUIDS with pills CRUSHED OR WHOLE IN PUREE. CLEAN OUT DRILLER also recommended pharyngeal strengthening exercises. Pt has been completing the exercises as appropriate and with supervision of CLEAN OUT DRILLER 2/3 times weekly. Pt often refuses treatment. Pt's hospitalization was further complicated by drop in BP accompanied with fever on 12/27, requiring transfer to medical floor for management. Pt was found to have lower left lobe consolidation on chest CT. Pt discharged and admitted back to on 12/31. Since readmission to , pt continues to complain of difficulty swallowing, globus sensation, and coughing up phlegm. Repeat MBSS recommended by CLEAN OUT DRILLER to re-assess severity of dysphagia. Medical History: Anxiety, anemia, bronchiectasis, cerebrovascular disease, CHF, CKD, chronic hyponatremia, degenerative arthritis, depression, hx ECT, hx bladder cancer, hydrocele, pulmonary fibrosis, COPD, CVA Pre-Treatment Diet: GROUND SOLIDS NECTAR THICK LIQUIDS PILLS CRUSHED OR WHOLE IN PUREE Changes made to current diet?: Yes Dysphasia Diet Status: Downgrade Liquid Consistency and Strategies: Liquid Intake Recommendation: NPO Solid Food Consistency: Dietary Recommendations: NPO Oral Medication Intake: NPO CLINICAL OBSERVATIONS: Laryngeal Penetration and Aspiration: Penetration and aspiration were observed in today's study. [place]-thick, and Honey-thick Contrast entered the airway, contacted the vocal folds, and were ejected from the airway. Pureed solid entered the airway through the vocal folds and was not ejected despite effort. ASSESSMENT: This exam was conducted by speech language pathologist and radiologist with patient seated at 90 degrees for lateral view only. Patient trialed the following liquid and solid consistencies: -nectar thick liquid barium via cup sip -honey thick liquid barium via cup sip -pureed solid (applesauce mixed with barium paste) Patient displays SEVERE pharyngeal phase dysphagia characterized by the following components of swallowing physiology. ORAL PHASE: -mildly prolonged oral preparatory phase -mild oral residue with thicker consistencies PHARYNGEAL PHASE: -partial laryngeal elevation and excursion -incomplete laryngeal vestibular closure -reduced tongue base retraction -moderate to severe pharyngeal residue -Vallecular residue pooling over the epiglottis Aspiration and penetration evident during this evaluation. Pureed consistency entered the airway and progressed through the vocal folds and was not ejected despite cough. [place] thick and honey thick contrast entered the airway, made contact with the vocal folds and spontaneously ejected. During this evaluation, significant pharyngeal retention was noted with all consistencies. [place] thick liquids were trialed first, as this is pt's baseline. Penetration and moderate pharyngeal residue visualized in the valleculae and pyriform sinuses. Honey thick contrast produced the same results. When given a bite of applesauce, aspiration evident. Pt coughed however, nonproductive. Significant pharyngeal residue, reduced pharyngeal peristalsis, and reduced hyolaryngeal excursion. Due to significant pharyngeal residue and evidence of aspiration on MBSS, pt is recommended NPO. Strategies and Precautions to be Taken for Safe Swallow: Supervision While Eating and/Drinking: Foods to Avoid: Swallowing Recommended Treatments: It is recommended that Mr. Azar participate in a comprehensive swallow evaluation by speech therapist trained in [facility] to determine candidacy for treatment. This treatment is provided at [facility] located in [place], [place] Recommendation for Speech: Speech Therapy through Rehab Facility Additional Referrals: Dietary Consult GI Consult Alternate Feeding Method Neuro Consult: further assess for etiology of worsening dysphagia Additional Comments: Based on the results of this evaluation, pt is recommended NPO. Due to evidence of aspiration with purees solids and significant pharyngeal residue, pt is at high risk of aspirating when eating and drinking. CLEAN OUT DRILLER spoke to pt's , Mei Azar RE: recommendations. Pt's demonstrated understanding of results. CLEAN OUT DRILLER spoke to MD over phone with recommendations and referrals. It is important to note that MBSS objective studies are snapshots in time and patient function might vary with factors such as time of day or concomitant medical conditions. For this reason, the final treatment plan for this patient should rest with their medical care team. Additional recommendations should be considered with the totality of the patient in mind. Thank you for the opportunity to participate in the care of this patient. If you have any questions about the content of this report, please contact the [facility] at [facility]. Sports Photographer Clinican/Clinical Fellow: Yes: Aleyda Iqbal M.A., CF-CLEAN OUT DRILLER Supervisory Statement: I have reviewed and agree with the student/clinical fellow's documentation: Yes Speech Language Pathologist: Smitha Rodríguez M.A., CCC-CLEAN OUT DRILLER
--- NOTE | 2021-01-07 17:53 | PM.NEUROCN ---
History of Present Illness Data of Consult Service Date: 01/07/21 Primary Care Provider: Unknown Physician 80 years old man I was asked to see for difficulty swallowing. He was admitted on psychiatric floor with a intractable bipolar disorder that had been treated with ECT in the past. Recently he also suffered from infection and was treated with Decadron. He said that swallowing difficulty was there for at least a week or 2 and he has been losing weight. He admitted to painful swallowing. There was no difficulty with vision or double vision or change in his speech pattern. There was no focal weakness or new unsteadiness. Review of Systems Review of Systems: As reported in HPI [facility] Past Medical History Medical History Anemia Anxiety Bronchiectasis Cerebrovascular disease Chronic hyponatremia CKD (chronic kidney disease) stage 3, GFR 30-59 ml/min Degenerative arthritis Depression History of electroconvulsive therapy Hx of bladder cancer Hydrocele Pulmonary fibrosis Pulmonary fibrosis Family History Family History Father Colon cancer Surgical History Surgical History History of bladder surgery Social History Social History Household Members: Spouse Housing: Apartment Do you presently have visiting nurse or other home services: Yes Smoking Status: Former smoker Tobacco Type: Cigarette Packs Per Day: 1 Cigarettes Per Day: 20.0 Years Smoked: 20 Smoked in Last 30 Days: No Patient Interested in Nicotine Replacement: No Patient Given Instructions on How to Stop Smoking: No Second Hand Smoke Exposure: No Use of substances other than those prescribed or required for medical reasons: No Substance Use Type: Marijuana Currently Displaying Signs/Symptoms of Drug Intoxication Withdrawal: No Spiritual Healthcare Practices: none [facility] Practices: none Cultural Healthcare Practices: none Advance Directives: Yes Advance Directives on File: Yes Advance Directives Date on File: 11/27/20 Do you have thoughts of harming others: None Do you have a plan to hurt others: No Plan Recently lost weight without trying: Yes service: No Current occupational status: retired and disabled Sexual orientation: Straight/Heterosexual Meds Allergies Allergy/AdvReac Type Severity Reaction Status Date / Time Sulfa (Sulfonamide Allergy Unknown UNKNOWN Verified 12/01/20 09:47 Antibiotics) [SULFA (SULFONAMIDE ANTIBIOTICS)] zoster vaccine live Allergy Hives Verified 12/01/20 09:47 Active Medications: Current Medications Generic Name Dose Route Start Last Admin Trade Name Freq PRN Reason Stop Dose Admin Acetaminophen 650 mg 12/31/20 17:25 01/01/21 10:33 Acetaminophen 325 Mg Tablet PO 650 mg Q6H PRN Administration Pain, Mild (Pain Scale 1-3) Al Hydroxide/Mg Hydroxide 30 ml 01/02/21 20:32 Magnesium Hydrox/Alum Hydrox 30 Ml Oral.Susp PO Q4H PRN Dyspepsia Albuterol/Ipratropium 3 ml 01/03/21 02:00 01/07/21 16:17 Albuterol/Iprat 2.5/0.5mg 3 Ml Ampul.Neb INHALE Not Given Q6H DOMINICK Benzocaine 1 lozenge 12/31/20 17:25 01/03/21 14:59 Throat Lozenge, Medicated Lozenge MUCOUS MEM 1 lozenge Q2H PRN Administration Sore Throat Budesonide 2 puff 12/31/20 20:00 01/07/21 09:24 Budesonide 180 Mcg Aer.Pow.Ba INHALE 2 puff RBID DOMINICK Administration Clotrimazole 1 appl 01/06/21 21:00 01/07/21 10:51 Clotrimazole 1 % Cream 15 Gm Tube TOPICAL 1 appl BID DOMINICK Administration Protocol Dexamethasone 1 mg 01/03/21 09:00 01/07/21 08:52 Dexamethasone 0.5 Mg Tablet PO 1 mg DAILY DOMINICK Administration Docusate Sodium 100 mg 12/31/20 17:25 01/05/21 08:34 Docusate Sodium 100 Mg Capsule PO 100 mg BID PRN Administration constipation Famotidine 20 mg 01/01/21 09:00 01/07/21 08:52 Famotidine 20 Mg Tablet PO 20 mg DAILY DOMINICK Administration Guaifenesin 600 mg 01/01/21 17:05 01/07/21 08:52 Guaifenesin La 600 Mg Tab.Er.12h PO 600 mg BID DOMINICK Administration Dextrose/Sodium Chloride 1,000 mls @ 80 mls/hr 01/07/21 17:00 D51/2ns IVCONT .[id number] DOMINICK Lorazepam 0.5 mg 12/31/20 17:25 01/06/21 20:29 Lorazepam 0.5 Mg Tablet PO 0.5 mg BEDTIME PRN Administration anxiety Mirtazapine 15 mg 12/31/20 21:00 01/06/21 20:02 Mirtazapine 15 Mg Tablet PO 15 mg BEDTIME DOMINICK Administration Patient Own Med ( 1 each 12/31/20 21:00 01/07/21 08:55 Nintedanib 150 Mg) PO 1 each BID DOMINICK Administration Omeprazole 40 mg 01/06/21 06:30 01/07/21 08:52 Omeprazole 40 Mg Capsule. PO 40 mg BID@0630,4690 DOMINICK Administration Prochlorperazine Edisylate 5 mg 12/31/20 23:21 01/06/21 09:42 Prochlorperazine Edisylate 10 Mg/2 Ml Vial IM 5 mg Q6H PRN Administration Nausea and Vomiting Quetiapine Fumarate 12.5 mg 12/31/20 21:00 01/06/21 20:02 Quetiapine Fumarate 25 Mg Tablet PO 12.5 mg BEDTIME DOMINICK Administration Thiamine HCl 100 mg 01/01/21 09:00 01/07/21 08:52 Thiamine Hcl 100 Mg Tablet PO 100 mg DAILY DOMINICK Administration Home Medications Medication Instructions Recorded Confirmed Last Taken Type Latuda 1 tab PO DAILY 11/25/20 12/31/20 11/25/20 History Ofev 150 mg PO BID 11/25/20 12/31/20 11/25/20 History docusate sodium [Stool Softener] 1 cap PO BID PRN 11/25/20 12/31/20 11/25/20 History lorazepam 1 tab PO BID PRN 11/25/20 12/31/20 11/25/20 History mirtazapine 1 tab PO BEDTIME 11/25/20 12/31/20 11/24/20 History ondansetron 1 tab PO Q8H PRN 11/25/20 12/31/20 Unknown History quetiapine 37.5 mg PO BEDTIME 11/25/20 12/31/20 11/24/20 History Physical Exam Vital Signs: Vital Signs: Last Vital Signs Temp 97.7 F 01/07/21 09:26 Pulse 80 01/07/21 09:26 Resp 18 01/07/21 09:26 BP 109/64 01/07/21 09:26 Pulse Ox 94 01/07/21 09:26 Body Mass Index 17.9 He was alert and awake with normal spontaneity of speech fluency comprehension and affect. Speech was slightly nasal. Pupils were equal and reactive to light and extraocular muscles were intact. Visual garay are full to threat. Face was symmetrical. Tongue was midline. Tongue and throat were dry and there was whitish discharge on his soft palate more so on the left side than right suggestive of thrush. Palate elevated symmetrically. There was no pronator drift. Deep tendon reflexes were absent with flexor plantars. He was able to get up and walk with a walker. 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 Assessment and Plan (1) Dysphagia: Problem details: 80 years old man with painful dysphagia and exam revealing white thrush. Also his throat was quite dry. This seemed to be predominantly caused by local dryness and fungal infection. There is no indication of any cranial neuropathy. I recommend medical or infectious Disease consultation and appropriate local treatment. This was probably triggered by exposure to steroids and and recent infection. Status: Acute (2) Metabolic encephalopathy: Problem details: Multifactorial metabolic encephalopathy including hyponatremia. 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 His MRI of brain in 2018 already revealed pontine signal abnormalities that might have been triggered by previous similar illnesses. This lesion also increases risk of dysphagia and dysarthria. Slow correction of hyponatremia is recommended. Status: Acute
[2021-01-07] MEDS: Dextrose 5 % and 0.45 % NaCl 1,000 ML 80 ML IVCONT (18:43)
--- NOTE | 2021-01-07 20:37 | PM.GIPN ---
Subjective Subjective Date of Service: 01/07/21 Interval History: no complaints of abdominal pain Physical Exam Vital Signs: Vital Signs: Last Vital Signs Temp 97.7 F 01/07/21 09:26 Pulse 80 01/07/21 09:26 Resp 18 01/07/21 09:26 BP 109/64 01/07/21 09:26 Pulse Ox 94 01/07/21 09:26 Body Mass Index 17.9 Const: General: no acute distress Resp: Other: lungs clear Cardio: Heart sounds: S1 normal heart sound present and S2 normal heart sound present GI: Other: abdomen soft and nontender with bowel sounds present Objective Data Labs CBC & Chem 7: 01/05/21 15:05 Progress Note: A&P Assessment and plan (1) Swallowing dysfunction: Status: Acute Assessment and Plan: Feeding tube placement requested by Dr Chowdhury based on aspiration seen on barium imaging. I discussed PEG placement with the patient and his . They understand risks and benefits and agree to proceed. Procedure scheduled for 01/08. Time Spent With Patient Time: Total time spent is greater than 50% in coordination of care (as documented) at patient's floor/unit and/or counseling patient: Time with patient: 15 - 24 minutes
[2021-01-07] MEDS: Phytonadione (Vit K1) 10 MG in 0.9 % Sodium Chloride 50 ML 51 MG IV (22:45)
[2021-01-07 23:45] VITALS: BP 127/70; PULSE 70; RESP 26; TEMP 36.4; O2SAT 94
[2021-01-08] VITALS (9 sets, daily range): BP systolic 90–144; BP diastolic 53–82; PULSE 66–75; RESP 16–24; TEMP 36.3–37.2; O2SAT 92–99
[2021-01-08] MEDS: Mirtazapine 7.5 MG TABLET 15 MG G-TUBE (08:00)
[2021-01-08 08:07] LABS: Hematocrit 29.4 % (42-52); Mean Corpuscular Hemoglobin 31.5 pg (27.0-33.0); Mean Corpuscular Volume 92.7 fL (80-98); Mean Platelet Volume 10.7 fL (9.4-12.4); Platelet Count 319 X10*3/uL (160-400); Red Blood Count 3.17 X10*6/uL (4.60-5.80); Red Cell Distribution Width 15.3 % (11.0-16.0); White Blood Count 10.6 X10*3/uL (4.8-10.8)
[2021-01-08] MEDS: Dextrose 5 % and 0.45 % NaCl 1,000 ML 80 ML IVCONT ×2 (08:07→19:03)
[2021-01-08 08:13] LABS: INTERNATIONAL NORM RATIO 1.1 (0.9-1.1); Prothrombin Time 13.5 SEC (10.8-13.0)
--- NOTE | 2021-01-08 11:04 | HO.ANESPROP2 ---
HPI - Anesthesia Eval Consult details Narrative: 80 yo male patient here for PEG tube placement PMFSH Active Problems Active Problems: All Active Problems (Updated 01/07/21 @ 18:01 by Fareed Trejo MD) Dysphagia (Acute) Metabolic encephalopathy (Acute) Pneumonia (Acute) Hypotension (Acute) Swallowing dysfunction (Acute) Increased oxygen demand (Acute) Pulmonary fibrosis (Acute) Bipolar I disorder with depression, severe (Acute) CKD (chronic kidney disease) stage 3, GFR 30-59 ml/min (Acute) Bipolar disorder (Acute) Past Medical History Medical History Anemia Anxiety Bronchiectasis Cerebrovascular disease Chronic hyponatremia CKD (chronic kidney disease) stage 3, GFR 30-59 ml/min Degenerative arthritis Depression History of electroconvulsive therapy Hx of bladder cancer Hydrocele Pulmonary fibrosis Pulmonary fibrosis Family History Family History Father Colon cancer Surgical History Surgical History History of bladder surgery Social History Social History Household Members: Spouse Housing: Apartment Do you presently have visiting nurse or other home services: Yes Smoking Status: Former smoker Tobacco Type: Cigarette Packs Per Day: 1 Cigarettes Per Day: 20.0 Years Smoked: 20 Smoked in Last 30 Days: No Patient Interested in Nicotine Replacement: No Patient Given Instructions on How to Stop Smoking: No Second Hand Smoke Exposure: No Use of substances other than those prescribed or required for medical reasons: No Substance Use Type: Marijuana Currently Displaying Signs/Symptoms of Drug Intoxication Withdrawal: No Spiritual Healthcare Practices: none Worship Healthcare Practices: none Cultural Healthcare Practices: none Advance Directives: Yes Advance Directives on File: Yes Advance Directives Date on File: 11/27/20 Do you have thoughts of harming others: None Do you have a plan to hurt others: No Plan Recently lost weight without trying: Yes service: No Current occupational status: retired and disabled Sexual orientation: Straight/Heterosexual Meds Allergies Allergy/AdvReac Type Severity Reaction Status Date / Time Sulfa (Sulfonamide Allergy Unknown UNKNOWN Verified 12/01/20 09:47 Antibiotics) [SULFA (SULFONAMIDE ANTIBIOTICS)] zoster vaccine live Allergy Hives Verified 12/01/20 09:47 Active Medications: Current Medications Generic Name Dose Route Start Last Admin Trade Name Freq PRN Reason Stop Dose Admin Acetaminophen 650 mg 12/31/20 17:25 01/01/21 10:33 Acetaminophen 325 Mg Tablet PO 650 mg Q6H PRN Administration Pain, Mild (Pain Scale 1-3) Al Hydroxide/Mg Hydroxide 30 ml 01/02/21 20:32 Magnesium Hydrox/Alum Hydrox 30 Ml Oral.Susp PO Q4H PRN Dyspepsia Albuterol/Ipratropium 3 ml 01/03/21 02:00 01/08/21 09:55 Albuterol/Iprat 2.5/0.5mg 3 Ml Ampul.Neb INHALE Not Given Q6H [facility] Benzocaine 1 lozenge 12/31/20 17:25 01/03/21 14:59 Throat Lozenge, Medicated Lozenge MUCOUS MEM 1 lozenge Q2H PRN Administration Sore Throat Budesonide 2 puff 12/31/20 20:00 01/08/21 09:55 Budesonide 180 Mcg Aer.Pow.Ba INHALE Not Given RBID [facility] Clotrimazole 1 appl 01/06/21 21:00 01/07/21 20:45 Clotrimazole 1 % Cream 15 Gm Tube TOPICAL 1 appl BID [facility] Administration Protocol Dexamethasone 1 mg 01/03/21 09:00 01/07/21 08:52 Dexamethasone 0.5 Mg Tablet PO 1 mg DAILY [facility] Administration Docusate Sodium 100 mg 12/31/20 17:25 01/05/21 08:34 Docusate Sodium 100 Mg Capsule PO 100 mg BID PRN Administration constipation Famotidine 20 mg 01/01/21 09:00 01/07/21 08:52 Famotidine 20 Mg Tablet PO 20 mg DAILY [facility] Administration Guaifenesin 600 mg 01/01/21 17:05 01/07/21 20:46 Guaifenesin La 600 Mg Tab.Er.12h PO Not Given BID [facility] Dextrose/Sodium Chloride 1,000 mls @ 80 mls/hr 01/07/21 17:00 01/08/21 08:07 D51/2ns IVCONT 80 mls/hr .[id number] [facility] Administration Lorazepam 0.5 mg 12/31/20 17:25 01/06/21 20:29 Lorazepam 0.5 Mg Tablet PO 0.5 mg BEDTIME PRN Administration anxiety Mirtazapine 15 mg 12/31/20 21:00 01/07/21 20:46 Mirtazapine 15 Mg Tablet PO Not Given BEDTIME [facility] Patient Own Med ( 1 each 12/31/20 21:00 01/07/21 20:46 Nintedanib 150 Mg) PO Not Given BID [facility] Omeprazole 40 mg 01/06/21 06:30 01/08/21 09:55 Omeprazole 40 Mg Capsule.Dr PO Not Given BID@0094,6120 [facility] Prochlorperazine Edisylate 5 mg 12/31/20 23:21 01/06/21 09:42 Prochlorperazine Edisylate 10 Mg/2 Ml Vial IM 5 mg Q6H PRN Administration Nausea and Vomiting Quetiapine Fumarate 12.5 mg 12/31/20 21:00 01/07/21 20:46 Quetiapine Fumarate 25 Mg Tablet PO Not Given BEDTIME [facility] Thiamine HCl 100 mg 01/01/21 09:00 01/07/21 08:52 Thiamine Hcl 100 Mg Tablet PO 100 mg DAILY [facility] Administration Home Medications Medication Instructions Recorded Confirmed Last Taken Type Latuda 1 tab PO DAILY 11/25/20 12/31/20 11/25/20 History Ofev 150 mg PO BID 11/25/20 12/31/20 11/25/20 History docusate sodium [Stool Softener] 1 cap PO BID PRN 11/25/20 12/31/20 11/25/20 History lorazepam 1 tab PO BID PRN 11/25/20 12/31/20 11/25/20 History mirtazapine 1 tab PO BEDTIME 11/25/20 12/31/20 11/24/20 History ondansetron 1 tab PO Q8H PRN 11/25/20 12/31/20 Unknown History quetiapine 37.5 mg PO BEDTIME 11/25/20 12/31/20 11/24/20 History Exam Exam Date and Time: January 08, 2021 1104 Height,Weight and Vital Signs: Height 5 ft 7 in Weight 52.1 kg Last Vital Signs Temp 98.0 F 01/08/21 10:36 Pulse 68 01/08/21 10:36 Resp 16 01/08/21 10:36 BP 137/76 01/08/21 06:36 Pulse Ox 96 01/08/21 10:36 Pertinent Lab Results Pertinent Lab Results: Laboratory Tests 01/01/21 01/05/21 01/08/21 14:34 15:05 07:46 WBC 10.6 RBC 3.17 L Hgb 10.0 L Hct 29.4 L MCV 92.7 MCH 31.5 MCHC 34.0 RDW 15.3 Plt Count 319 MPV 10.7 Absolute Nucleated RBC 0.000 Nucleated RBC % (auto) 0.0 PT INR Sodium 132 L 131 L Potassium 5.2 H 5.1 Chloride 97 96 Carbon Dioxide 27 26 Anion Gap 13 14 BUN 25 H Creatinine 1.00 Estim Creat Clear Calc 45.7 Estimated GFR > 60 Random Glucose 145 H D Calcium 9.2 Total Bilirubin 0.5 AST 36 D ALT 29 Alkaline Phosphatase 137 H D Total Protein 6.7 D Albumin 3.1 L D 01/08/21 07:46 WBC RBC Hgb Hct MCV MCH MCHC RDW Plt Count MPV Absolute Nucleated RBC Nucleated RBC % (auto) PT 13.5 H INR 1.1 Sodium Potassium Chloride Carbon Dioxide Anion Gap BUN Creatinine Estim Creat Clear Calc Estimated GFR Random Glucose Calcium Total Bilirubin AST ALT Alkaline Phosphatase Total Protein Albumin Narrative Narrative: Patient with adrenal suppression . Will give doug-op steroids Airway Mallampati Class: II TM Dist: >3cm Neck ROM: Full Heart: RRR Lungs: CTAB Assessment and Plan Assessment Anesthesia Assessment: Anesthesia Plan Discussed and Chart Reviewed Final Anesthetic Review ASA Class: III Final Preanesthetic Review: No Changes in Pt Med Stat, Meds/Allgs Chart Reviewed, Consent Obtained/Reviewed and Anes Risks/Benef Reviewed Patient Risk: Intermediate Procedure Risk: Low Assessment/Block/Sedation in SS: Assess/Block/Sedation-SS Anesthetic Plan Anesthetic Plan: MAC: Disposition: Standard PACU
--- NOTE | 2021-01-08 11:40 | HO.PM.IMPN ---
Subjective Subjective Date of Service: 01/08/21 Interval History: weak Cardiovascular Cardiovascular: Reports no additional cardiovascular complaints Respiratory Respiratory: Reports no additional respiratory complaints Physical Exam Vital Signs: Vital Signs: Last Vital Signs Temp 98.2 F 01/08/21 11:12 Pulse 66 01/08/21 11:12 Resp 20 01/08/21 11:12 BP 144/82 H 01/08/21 11:12 Pulse Ox 95 01/08/21 11:12 Body Mass Index 17.9 General: lethargic, weak Resp: crackles CVS: S1,S2,RRR GI: soft, non tender, non distended Neuro: motor grossly weak Psych: flat affect Objective Data Current Medications Generic Name Dose Route Start Last Admin Trade Name Freq PRN Reason Stop Dose Admin Acetaminophen 650 mg 12/31/20 17:25 01/01/21 10:33 Acetaminophen 325 Mg Tablet PO 650 mg Q6H PRN Administration Pain, Mild (Pain Scale 1-3) Al Hydroxide/Mg Hydroxide 30 ml 01/02/21 20:32 Magnesium Hydrox/Alum Hydrox 30 Ml Oral.Susp PO Q4H PRN Dyspepsia Albuterol/Ipratropium 3 ml 01/03/21 02:00 01/08/21 09:55 Albuterol/Iprat 2.5/0.5mg 3 Ml Ampul.Neb INHALE Not Given Q6H [facility] Benzocaine 1 lozenge 12/31/20 17:25 01/03/21 14:59 Throat Lozenge, Medicated Lozenge MUCOUS MEM 1 lozenge Q2H PRN Administration Sore Throat Budesonide 2 puff 12/31/20 20:00 01/08/21 09:55 Budesonide 180 Mcg Aer.Pow.Ba INHALE Not Given RBID [facility] Clotrimazole 1 appl 01/06/21 21:00 01/07/21 20:45 Clotrimazole 1 % Cream 15 Gm Tube TOPICAL 1 appl BID [facility] Administration Protocol Dexamethasone 1 mg 01/03/21 09:00 01/07/21 08:52 Dexamethasone 0.5 Mg Tablet PO 1 mg DAILY [facility] Administration Docusate Sodium 100 mg 12/31/20 17:25 01/05/21 08:34 Docusate Sodium 100 Mg Capsule PO 100 mg BID PRN Administration constipation Famotidine 20 mg 01/01/21 09:00 01/07/21 08:52 Famotidine 20 Mg Tablet PO 20 mg DAILY [facility] Administration Guaifenesin 600 mg 01/01/21 17:05 01/07/21 20:46 Guaifenesin La 600 Mg Tab.Er.12h PO Not Given BID [facility] Dextrose/Sodium Chloride 1,000 mls @ 80 mls/hr 01/07/21 17:00 01/08/21 08:07 D51/2ns IVCONT 80 mls/hr .[id number] [facility] Administration Sodium Chloride 1,000 mls @ 50 mls/hr 01/08/21 11:15 Ns IVCONT .Q20H [facility] Lorazepam 0.5 mg 12/31/20 17:25 01/06/21 20:29 Lorazepam 0.5 Mg Tablet PO 0.5 mg BEDTIME PRN Administration anxiety Mirtazapine 15 mg 12/31/20 21:00 01/07/21 20:46 Mirtazapine 15 Mg Tablet PO Not Given BEDTIME [facility] Patient Own Med ( 1 each 12/31/20 21:00 01/07/21 20:46 Nintedanib 150 Mg) PO Not Given BID [facility] Omeprazole 40 mg 01/06/21 06:30 01/08/21 09:55 Omeprazole 40 Mg Capsule. PO Not Given BID@0630,1630 [facility] Prochlorperazine Edisylate 5 mg 12/31/20 23:21 01/06/21 09:42 Prochlorperazine Edisylate 10 Mg/2 Ml Vial IM 5 mg Q6H PRN Administration Nausea and Vomiting Quetiapine Fumarate 12.5 mg 12/31/20 21:00 01/07/21 20:46 Quetiapine Fumarate 25 Mg Tablet PO Not Given BEDTIME [facility] Thiamine HCl 100 mg 01/01/21 09:00 01/07/21 08:52 Thiamine Hcl 100 Mg Tablet PO 100 mg DAILY [facility] Administration Labs CBC & Chem 7: 01/08/21 07:46 01/05/21 15:05 Assessment and Plan (1) Dysphagia: Status: Acute Assessment and Plan: 80M with oropharyngeal dysphagia, increasing in severity now recommended to be NPO dysphagia gi and neuro appreciated steroids and thrush postdate symptoms so unlikely primary cause plan for gtube today once ok for use, would start feeds as directed by nutrition team
[2021-01-08] MEDS: 0.9 % Sodium Chloride 1,000 ML 50 ML IVCONT (11:56)
--- NOTE | 2021-01-08 12:00 | PC.NURSE ---
redness noted to buttock and coccyx area
--- NOTE | 2021-01-08 13:12 | OP_ITS ---
SURGEON: Rian Lopez MD INDICATIONS: Dysphagia. PREOPERATIVE DIAGNOSIS: POSTOPERATIVE DIAGNOSIS: PROCEDURE PERFORMED: Upper endoscopy with placement of percutaneous endoscopic gastrostomy. ESTIMATED BLOOD LOSS: COMPLICATIONS: ANESTHESIA: ASSISTANTS: SPECIMENS: MEDICATIONS: Monitored anesthesia care. DESCRIPTION OF PROCEDURE: History and physical performed. The risks and benefits of the procedure were explained to the patient and his and informed consent was obtained. The patient was placed in the supine position. The Olympus video gastroscope was introduced into the esophagus, stomach, and duodenum. Examination was performed and the scope was removed. He tolerated the procedure well and was taken to recovery area in stable condition. FINDINGS: Esophagus: The esophagus was normal. There was a small hiatal hernia. Stomach: The stomach showed no evidence of masses, ulcers, or polyps. Duodenum: The bulb and second portion were normal. A suitable site was localized on the anterior abdominal wall using transillumination of the endoscopic light source and endoscopic verification of digital impression. The site was sterilely draped and prepped and infiltrated with 1% Xylocaine. Next, a small incision was made with a scalpel and a needle and catheter were advanced directly into the stomach under endoscopic visualization. The needle was removed, leaving the catheter in place and a guidewire was advanced into the stomach and grasped with a snare, passed through the endoscope. The endoscope and snare were removed from the patient, leaving the guidewire in position. Next, a 20-Georgian traction removable gastrostomy tube was attached to the guidewire and placed in good position using the pull technique. The site was secured with an external bolster at the 2 cm gama and a dry sterile dressing and povidone ointment were applied. The catheter was trimmed and a Y-adapter was attached. IMPRESSION: 1. Normal upper endoscopy. 2. Gastrostomy tube placement. RECOMMENDATIONS: The tube may be used for medications starting today. Do not start tube feeds until the a.m. Free water may be given through the G-tube today. Tube feed orders are in chart to start in the morning. MD KRISTI Woods/LOGAN / [phone] MTDD
--- NOTE | 2021-01-08 13:50 | MHC.SLORD ---
Speech Language Pathology Order Status: MBSS completed yesterday. Please refer to full report. Patient is recommended NPO status. Per MD note, plan is for Gtube placement. MEAT DEPARTMENT MANAGER will continue to follow.
[2021-01-08] MEDS: Clotrimazole 1 % Cream 15 GM TUBE 1 APPL TOPICAL ×2 (14:15→20:06)
--- NOTE | 2021-01-08 14:42 | MHC.CLN ---
F/U AND CONSULT PT IS CURRENTLY NPO SEE CHIMNEY BUILDER HELPER REC AND MBS PEG PLACED 01/08/21 RECOMMEND JEVITY AT MAX GOAL RATE 60CC/HR WITH 120CC FREE WATER FLUSHES Q SHIFT TO PROVIDE 1526KCALS (29KCALS/KG), 63G PROTEIN (1.2G/KG), 1562CC TOTAL WATER FROM FORMULA AND FLUSHES (30CC/KG) START TF AT 20CC/HR AND INCREASE BY 10CC Q 4 HRS UNTIL MAX GOAL RATE IS ACHIEVED MONITOR TOLERANCE, RESIDUALS AND LYTES
[2021-01-08] MEDS: LORazepam 0.5 MG TABLET G-TUBE (16:50)
--- NOTE | 2021-01-08 17:03 | HO.PSYCHPN ---
Subjective Subjective Date of Service: 01/08/21 Reason For Visit: severe depression Subjective Notes: Conditional Voluntary Interim History: Patient had successful PEG placement today remains severely depressed NPO hopeless helpless despondent case reviewed extensively with Dr. Lopez patient will start tomorrow gradual replacement Medication Compliance: Yes Attending Groups: No Mental Status Exam Mental Status Exam Patient Appearance: Disheveled Patient Orientation: Person, Place, Time and Situation Level of Consciousness: Drowsy and Lethargic Patient Behavior: Appropriate, Passive, Avoidant and Poor Eye Contact Mood Description: Calm, Withdrawn, Constricted, Depressed and Anxious Affect Description: Withdrawn, Depressed and Blunted Ability to Follow Directions: Fair Speech Pattern: Impoverished, Monotone and Soft-Spoken Memory Description: Episodic Impaired Hallucinations: None Thought Process: Linear and Slowed Thinking Thought Content: positive for [place], positive for Perseveration, positive for Poverty of Content, negative for Suicidal Ideation and negative for Homicidal Ideation Depressive Symptoms: Increased Anxiety, Diff. Making Decisions, Sleeping More Than Usual, Isolating-Friends/Family, Unhappiness, Thoughts of /Suicide, Loss of Energy and Difficulty Concentrating Judgement: Fair Diagnostics Vital Signs (24Hr): Vital Signs - 24 hr 01/07/21 23:45 01/08/21 06:36 01/08/21 10:36 Temperature 97.6 F 97.3 F 98.0 F Pulse Rate 70 68 68 Respiratory Rate 26 H 24 H 16 Blood Pressure 127/70 137/76 Pulse Oximetry 94 92 96 01/08/21 11:12 01/08/21 12:37 01/08/21 12:52 Temperature 98.2 F 98.9 F Pulse Rate 66 75 67 Respiratory Rate 20 16 18 Blood Pressure 144/82 H 90/53 L 100/57 L Pulse Oximetry 95 94 99 01/08/21 13:07 01/08/21 13:22 Temperature 98.9 F Pulse Rate 74 66 Respiratory Rate 20 20 Blood Pressure 103/61 111/63 Pulse Oximetry 95 96 Body Mass Index 17.9 Labs Results: 01/08/21 07:46 01/05/21 15:05 Labs: Laboratory Results - last 48 hr 01/08/21 01/08/21 07:46 07:46 WBC 10.6 RBC 3.17 L Hgb 10.0 L Hct 29.4 L MCV 92.7 MCH 31.5 MCHC 34.0 RDW 15.3 Plt Count 319 MPV 10.7 Absolute Nucleated RBC 0.000 Nucleated RBC % (auto) 0.0 PT 13.5 H INR 1.1 Imaging Radiology Impressions: ITS Impressions Modified Barium Swallow 01/07/21 14:15 IMPRESSION: Laryngeal penetration and occasional aspiration as described above. Please refer to speech pathology report for details. Medications Medications Current Medications Generic Name Dose Route Start Last Admin Trade Name Freq PRN Reason Stop Dose Admin Acetaminophen 650 mg 01/08/21 15:46 Acetaminophen 325 Mg Tablet G-TUBE Q6H PRN Pain, Mild (Pain Scale 1-3) Al Hydroxide/Mg Hydroxide 30 ml 01/08/21 15:46 Magnesium Hydrox/Alum Hydrox 30 Ml Oral.Susp G-TUBE Q4H PRN Dyspepsia Albuterol/Ipratropium 3 ml 01/03/21 02:00 01/08/21 15:25 Albuterol/Iprat 2.5/0.5mg 3 Ml Ampul.Neb INHALE Not Given Q6H [facility] Benzocaine 1 lozenge 12/31/20 17:25 01/03/21 14:59 Throat Lozenge, Medicated Lozenge MUCOUS MEM 1 lozenge Q2H PRN Administration Sore Throat Budesonide 2 puff 12/31/20 20:00 01/08/21 09:55 Budesonide 180 Mcg Aer.Pow.Ba INHALE Not Given RBID [facility] Clotrimazole 1 appl 01/06/21 21:00 01/08/21 14:15 Clotrimazole 1 % Cream 15 Gm Tube TOPICAL 1 appl BID [facility] Administration Protocol Dexamethasone 1 mg 01/09/21 09:00 Dexamethasone 0.5 Mg Tablet G-TUBE DAILY [facility] Famotidine 20 mg 01/09/21 09:00 Famotidine 20 Mg Tablet G-TUBE DAILY [facility] Dextrose/Sodium Chloride 1,000 mls @ 80 mls/hr 01/07/21 17:00 01/08/21 08:07 D51/2ns IVCONT 80 mls/hr .[id number] [facility] Administration Lorazepam 0.5 mg 01/08/21 17:02 Lorazepam 0.5 Mg Tablet G-TUBE Q6H PRN anxiety Mirtazapine 15 mg 01/08/21 21:00 Mirtazapine 7.5 Mg Tablet G-TUBE BEDTIME [facility] Patient Own 1 each 01/08/21 21:00 Medication ( G-TUBE Nintedanib 150) BID [facility] Omeprazole 40 mg 01/08/21 16:30 01/08/21 17:02 Omeprazole 20 Mg/10 Ml Susp.Recon G-TUBE 20 mg BID@0630,1630 [facility] Administration Ondansetron HCl 4 mg 01/08/21 12:53 Ondansetron Hcl 4 Mg/2 Ml Vial IVPUSH ONCE PRN Nausea and Vomiting Prochlorperazine Edisylate 5 mg 12/31/20 23:21 01/06/21 09:42 Prochlorperazine Edisylate 10 Mg/2 Ml Vial IM 5 mg Q6H PRN Administration Nausea and Vomiting Quetiapine Fumarate 12.5 mg 01/08/21 21:00 Quetiapine Fumarate 25 Mg Tablet G-TUBE BEDTIME [facility] Thiamine HCl 100 mg 01/09/21 09:00 Thiamine Hcl 100 Mg Tablet G-TUBE DAILY [facility] Allergies Allergies Allergy/AdvReac Type Severity Reaction Status Date / Time Sulfa (Sulfonamide Allergy Unknown UNKNOWN Verified 12/01/20 09:47 Antibiotics) [SULFA (SULFONAMIDE ANTIBIOTICS)] zoster vaccine live Allergy Hives Verified 12/01/20 09:47 Assessment & Plan Assessment & Plan (1) Dysphagia: Status: Acute Code(s): R13.10 - Dysphagia, unspecified (2) Bipolar I disorder with depression, severe: Status: Acute Code(s): F31.4 - Bipolar disorder, current episode depressed, severe, without psychotic features Assessment and Plan: 80M with oropharyngeal dysphagia, increasing in severity now recommended to be NPO dysphagia gi and neuro appreciated steroids and thrush postdate symptoms so unlikely primary cause plan for gtube today once ok for use, would start feeds as directed by nutrition team Dr. Lopez has placed orders for PEG feedings Also see dietary recommendations Patient M Po aspiration precautions Bipolar depression Hopefully patient will respond to increase protein in feedings with increased energy and hopefully this will help with his lethargy and mood. Still unclear etiology to do dysphagia and swallowing dysfunction. Has failed trials of Vryalar Latuda Rexulti. Will try and resume ECT brief feedings lorazepam for severe anxiety monitor for over sedation Greater than 50% of the session was spent on counseling and/or coordination of care Reason for contiued inpatient stay Substantial Risk for: inability to function, rapid decompensation and med/psych decompensation
[2021-01-08] MEDS: QUEtiapine Fumarate 25 MG TABLET 12.5 MG G-TUBE (20:05)
[2021-01-09 04:00] VITALS: BP 143/76; PULSE 76; RESP 26; TEMP 37.1; O2SAT 94
[2021-01-09] MEDS: Acetaminophen 325 MG TABLET 650 MG G-TUBE ×4 (04:22→21:15)
[2021-01-09] MEDS: LORazepam 0.5 MG TABLET G-TUBE ×2 (04:45→21:11)
[2021-01-09 04:55] VITALS: BP 143/74; PULSE 76; RESP 26; TEMP 37.1; O2SAT 94
[2021-01-09 07:43] LABS: Hematocrit 31.8 % (42-52); Hemoglobin 10.9 g/dl (14.0-18.0); Mean Corpuscular HGB Conc 34.3 g/dl (31.0-36.0); Mean Corpuscular Hemoglobin 31.7 pg (27.0-33.0); Mean Corpuscular Volume 92.4 fL (80-98); Mean Platelet Volume 10.8 fL (9.4-12.4); Platelet Count 347 X10*3/uL (160-400); Red Blood Count 3.44 X10*6/uL (4.60-5.80); Red Cell Distribution Width 15.2 % (11.0-16.0); White Blood Count 18.1 X10*3/uL (4.8-10.8)
[2021-01-09] MEDS: Budesonide 180 MCG AER.POW.BA 2 PUFF INHALE ×2 (09:19→21:01)
[2021-01-09] MEDS: Famotidine 20 MG TABLET G-TUBE (09:19)
[2021-01-09] MEDS: Clotrimazole 1 % Cream 15 GM TUBE 1 APPL TOPICAL ×2 (09:20→21:00)
[2021-01-09] MEDS: Thiamine HCL 100 MG TABLET G-TUBE (09:20)
--- NOTE | 2021-01-09 09:42 | PM.PNNEP ---
Subjective Subjective Date of Service: 01/09/21 Interval history: Events noted s/p PEG 01/08/21 Now on D5 HALF NS since 01/07/21 pNa has dropped Physical Exam Vital Signs: Vital Signs: Last Vital Signs Temp 98.8 F 01/09/21 04:55 Pulse 76 01/09/21 04:55 Resp 26 H 01/09/21 04:55 BP 143/74 H 01/09/21 04:55 Pulse Ox 94 01/09/21 04:55 Body Mass Index 17.9 Const: General: cooperative Neck: Neck: Yes supple Resp: Effort & Inspection: normal respiratory effort Cardio: Heart sounds: no murmurs and no rubs GI: Palpation (GI): Other GI palpation findings present (PEG in place) Auscultation: normal bowel sounds Neuro: Motor exam (neuro): No Asterixis during motor activity present Objective Data Labs CBC & Chem 7: 01/09/21 07:12 01/05/21 15:05 Labs: Laboratory Results - last 24 hr 01/09/21 07:12 WBC 18.1 H RBC 3.44 L Hgb 10.9 L Hct 31.8 L MCV 92.4 MCH 31.7 MCHC 34.3 RDW 15.2 Plt Count 347 MPV 10.8 Absolute Nucleated RBC 0.000 Nucleated RBC % (auto) 0.0 Assessment & Plan Assessment and plan (1) CKD (chronic kidney disease) stage 3, GFR 30-59 ml/min: Problem details: Renal function is stable at baseline Status: Acute (2) Hyponatremia: Problem details: Chronic and asymptomatic Suspected adrenal insufficiency Currently on Dexamethasone and would continue Recent decrease in pNa due to infusion of hypotonic fluids ( D5 Half NS) - I have discontinues this Restrict hypotonic fluids ( oral free water to 1 L per 24 hrs) Goal pNa > 130 mmol/dL Status: Acute Time Spent With Patient Time: Total time spent is greater than 50% in coordination of care (as documented) at patient's floor/unit and/or counseling patient:
--- NOTE | 2021-01-09 11:00 | P.PNPSI_ITS ---
Subjective Subjective Date of Service: 01/09/21 Reason For Visit: severe depression Interim History: Chart reviewed; case discussed with team. Vitals reviewed: mild-moderately tachypneic patients' present pt reports feeling anxious and shares ambivalence about ECT; however he agrees that ECT has worked in past and understands that physical health is related to mental health. Firestopper Installer informed patient and that hospitalist has not cleared pt for ECT this coming Monday but it will have to be further discussed with Dr. Chowdhury when he returns. Mental Status Exam Mental Status Exam Narrative: Appearance: unkempt Patient Orientation: Person, Place, Time and Situation Level of Consciousness: Drowsy Patient Behavior: Appropriate, Passive, Avoidant and Poor Eye Contact Mood Description: Calm, somewhat Withdrawn; Depressed and Anxious Affect Description: Withdrawn, Depressed and Blunted Ability to Follow Directions: Fair Speech Pattern: Monotone and Soft-Spoken Memory Description: Episodic Impaired Hallucinations: None Thought Process: Linear but slowed Thinking Thought Content: positive for [place], positive for Perseveration Depressive Symptoms: Increased Anxiety, Diff. Making Decisions, Sleeping More Than Usual, Isolating-Friends/Family, Unhappiness, Thoughts of /Suicide, Loss of Energy and Difficulty Concentrating Judgement: Fair Diagnostics Vital Signs (24Hr): Vital Signs - 24 hr 01/08/21 11:12 01/08/21 12:37 01/08/21 12:52 Temperature 98.2 F 98.9 F Pulse Rate 66 75 67 Respiratory Rate 20 16 18 Blood Pressure 144/82 H 90/53 L 100/57 L Pulse Oximetry 95 94 99 01/08/21 13:07 01/08/21 13:22 01/08/21 16:00 Temperature 98.9 F 97.4 F Pulse Rate 74 66 68 Respiratory Rate 20 20 22 H Blood Pressure 103/61 111/63 125/70 Pulse Oximetry 95 96 94 01/08/21 20:00 01/09/21 04:00 01/09/21 04:55 Temperature 97.4 F 98.8 F 98.8 F Pulse Rate 69 76 76 Respiratory Rate 22 H 26 H 26 H Blood Pressure 123/70 143/76 H 143/74 H Pulse Oximetry 94 94 94 Body Mass Index 17.9 Labs Results: 01/09/21 07:12 01/05/21 15:05 Labs: Laboratory Results - last 48 hr 01/08/21 01/08/21 01/09/21 07:46 07:46 07:12 WBC 10.6 18.1 H RBC 3.17 L 3.44 L Hgb 10.0 L 10.9 L Hct 29.4 L 31.8 L MCV 92.7 92.4 MCH 31.5 31.7 MCHC 34.0 34.3 RDW 15.3 15.2 Plt Count 319 347 MPV 10.7 10.8 Absolute Nucleated RBC 0.000 0.000 Nucleated RBC % (auto) 0.0 0.0 PT 13.5 H INR 1.1 Imaging Radiology Impressions: ITS Impressions Modified Barium Swallow 01/07/21 14:15 IMPRESSION: Laryngeal penetration and occasional aspiration as described above. Please refer to speech pathology report for details. Medications Medications Current Medications Generic Name Dose Route Start Last Admin Trade Name Freq PRN Reason Stop Dose Admin Acetaminophen 650 mg 01/08/21 15:46 01/09/21 04:22 Acetaminophen 325 Mg Tablet G-TUBE 650 mg Q6H PRN Administration Pain, Mild (Pain Scale 1-3) Al Hydroxide/Mg Hydroxide 30 ml 01/08/21 15:46 Magnesium Hydrox/Alum Hydrox 30 Ml Oral.Susp G-TUBE Q4H PRN Dyspepsia Albuterol/Ipratropium 3 ml 01/03/21 02:00 01/09/21 09:21 Albuterol/Iprat 2.5/0.5mg 3 Ml Ampul.Neb INHALE Not Given Q6H DOMINICK Benzocaine 1 lozenge 12/31/20 17:25 01/03/21 14:59 Throat Lozenge, Medicated Lozenge MUCOUS MEM 1 lozenge Q2H PRN Administration Sore Throat Budesonide 2 puff 12/31/20 20:00 01/09/21 09:19 Budesonide 180 Mcg Aer.Pow.Ba INHALE 2 puff RBID DOMINICK Administration Clotrimazole 1 appl 01/06/21 21:00 01/09/21 09:20 Clotrimazole 1 % Cream 15 Gm Tube TOPICAL 1 appl BID DOMINICK Administration Protocol Dexamethasone 1 mg 01/09/21 09:00 01/09/21 09:19 Dexamethasone 0.5 Mg Tablet G-TUBE 1 mg DAILY DOMINICK Administration Famotidine 20 mg 01/09/21 09:00 01/09/21 09:19 Famotidine 20 Mg Tablet G-TUBE 20 mg DAILY DOMINICK Administration Lorazepam 0.5 mg 01/08/21 17:02 01/09/21 04:45 Lorazepam 0.5 Mg Tablet G-TUBE 0.5 mg Q6H PRN Administration anxiety Mirtazapine 15 mg 01/08/21 21:00 01/08/21 08:00 Mirtazapine 7.5 Mg Tablet G-TUBE 15 mg BEDTIME DOMINICK Administration Patient Own 1 each 01/08/21 21:00 Medication ( G-TUBE Nintedanib 150) BID DOMINICK Omeprazole 40 mg 01/08/21 16:30 01/09/21 09:18 Omeprazole 20 Mg/10 Ml Susp.Recon G-TUBE 40 mg BID@0630,1630 DOMINICK Administration Ondansetron HCl 4 mg 01/08/21 12:53 Ondansetron Hcl 4 Mg/2 Ml Vial IVPUSH ONCE PRN Nausea and Vomiting Prochlorperazine Edisylate 5 mg 12/31/20 23:21 01/06/21 09:42 Prochlorperazine Edisylate 10 Mg/2 Ml Vial IM 5 mg Q6H PRN Administration Nausea and Vomiting Quetiapine Fumarate 12.5 mg 01/08/21 21:00 01/08/21 20:05 Quetiapine Fumarate 25 Mg Tablet G-TUBE 12.5 mg BEDTIME DOMINICK Administration Sodium Chloride 3 ml 01/09/21 14:00 0.9 % Sodium Chloride Flush 3 Ml Syringe IVFLUSH DAILY@0600,1400,2200 DOMINICK Thiamine HCl 100 mg 01/09/21 09:00 01/09/21 09:20 Thiamine Hcl 100 Mg Tablet G-TUBE 100 mg DAILY DOMINICK Administration Allergies Allergies Allergy/AdvReac Type Severity Reaction Status Date / Time Sulfa (Sulfonamide Allergy Unknown UNKNOWN Verified 12/01/20 09:47 Antibiotics) [SULFA (SULFONAMIDE ANTIBIOTICS)] zoster vaccine live Allergy Hives Verified 12/01/20 09:47 Assessment & Plan Assessment & Plan (1) CKD (chronic kidney disease) stage 3, GFR 30-59 ml/min: Status: Acute Code(s): N18.30 - Chronic kidney disease, stage 3 unspecified (2) Hyponatremia: Status: Acute Code(s): E87.1 - Hypo-osmolality and hyponatremia Assessment and Plan: 80M with oropharyngeal dysphagia, increasing in severity now recommended to be NPO Currently, pt is NOT cleared for ECT on Monday01/11/21. Dr. Chowdhury notified and will discuss with team and hospitalist on Monday. Otherwise, no changes to tx plan dysphagia gi and neuro appreciated steroids and thrush postdate symptoms so unlikely primary cause plan for gtube today once ok for use, would start feeds as directed by nutrition team Dr. Lopez has placed orders for PEG feedings Also see dietary recommendations Patient M Po aspiration precautions Bipolar depression Hopefully patient will respond to increase protein in feedings with increased energy and hopefully this will help with his lethargy and mood. Still unclear etiology to do dysphagia and swallowing dysfunction. Has failed trials of Antonette Waller. Will try and resume ECT brief feedings lorazepam for severe anxiety monitor for over sedation Greater than 50% of the session was spent on counseling and/or coordination of care Reason for contiued inpatient stay Substantial Risk for: inability to function and med/psych decompensation
--- NOTE | 2021-01-09 11:48 | PC.NURSE ---
Jevity started at 1130am this morning. Started at rate of 20ml per hour. Due to be increased at 1530 by 10ml. (See orders for details). Nephrology at bedside. IV fluids discontinued per Nephro. 20G IV to Right hand discontinued per .
[2021-01-09 12:00] VITALS: BP 92/54; PULSE 78; RESP 20; TEMP 36.9; O2SAT 94
[2021-01-09 12:22] VITALS: BP 92/54; PULSE 78; RESP 20; TEMP 36.9; O2SAT 94
[2021-01-09 16:30] VITALS: BP 117/71; PULSE 77; RESP 28; TEMP 36.4; O2SAT 93
[2021-01-09 19:30] VITALS: BP 105/67; PULSE 71; RESP 28; TEMP 36.7; O2SAT 93
[2021-01-09] MEDS: Mirtazapine 7.5 MG TABLET 15 MG G-TUBE (20:53)
[2021-01-09] MEDS: QUEtiapine Fumarate 25 MG TABLET 12.5 MG G-TUBE (20:53)
--- NOTE | 2021-01-10 | ECG_ITS ---
Test Reason : CHANGES Blood Pressure : / mmHG Vent. Rate : 091 BPM Atrial Rate : 091 BPM P-R Int : 120 ms QRS Dur : 078 ms QT Int : 376 ms P-R-T Axes : 015 042 025 degrees QTc Int : 462 ms Normal sinus rhythm Possible Left atrial enlargement Borderline ECG When compared to the previous EKG of 11 december 2020, no significant change Referred By: Gabriel Marie Electronically Signed By:YUDI GUILLEN
[2021-01-10] MEDS: LORazepam 0.5 MG TABLET G-TUBE (03:42)
[2021-01-10] MEDS: Acetaminophen 325 MG TABLET 650 MG G-TUBE ×3 (03:43→16:36)
[2021-01-10 04:00] VITALS: BP 134/72; PULSE 102; RESP 34; TEMP 36.5; O2SAT 94
--- NOTE | 2021-01-10 05:41 | PC.NURSE ---
Patient remains on Gtube with increate at by 10ml/hr which was increase by 2330 at 50 ml/hr. By 0530 increase up to 60 ml/hr. checking residual q 4hour which was checked at 0100 and 0500. Flushing Gtube q.shift which was done at 0500. O2 Sat was at 90-91 RA. Patient requests to have o2 sat on by 0400 for c/o wheezing. Patient is on 2L with o2 sat right after patient was on was 94 nasal Cannula
[2021-01-10 08:00] VITALS: BP 111/73; PULSE 105; RESP 42; TEMP 37.3; O2SAT 95
[2021-01-10] MEDS: Budesonide 180 MCG AER.POW.BA 2 PUFF INHALE ×2 (08:31→21:02)
[2021-01-10] MEDS: Clotrimazole 1 % Cream 15 GM TUBE 1 APPL TOPICAL ×2 (08:31→20:47)
[2021-01-10] MEDS: Thiamine HCL 100 MG TABLET G-TUBE (08:32)
[2021-01-10] MEDS: Famotidine 20 MG TABLET G-TUBE (08:32)
[2021-01-10 09:38] LABS: Basophils Percent Auto 0.1 % (0-2); Hematocrit 31.2 % (42-52); Hemoglobin 10.8 g/dl (14.0-18.0); Imm Gran Abs Auto 0.12 X10*3/uL (0.00-0.03); Imm Gran Pct Auto 0.5 % (0.0-0.4); Lymphocytes Absolute Auto 1.6 X10*3/uL (1.2-4.9); Lymphocytes Percent Auto 7.4 % (20-40); MANUAL DIFF FLAG SCAN; Mean Corpuscular HGB Conc 34.6 g/dl (31.0-36.0); Mean Corpuscular Volume 92.3 fL (80-98); Mean Platelet Volume 10.4 fL (9.4-12.4); Monocytes Absolute Auto 1.6 X10*3/uL (0.1-1.2); Monocytes Percent Auto 7.1 % (2-11); Neutrophils Absolute Auto 18.8 X10*3/uL (2.0-8.3); Neutrophils Percent Auto 84.9 % (45-73); Platelet Count 311 X10*3/uL (160-400); Red Blood Count 3.38 X10*6/uL (4.60-5.80); Red Cell Distribution Width 15.1 % (11.0-16.0); SCAN SMEAR FLAG 1; White Blood Count 22.2 X10*3/uL (4.8-10.8)
[2021-01-10 09:45] LABS: D Dimer 994 NG/ML
[2021-01-10 09:56] LABS: Anion Gap 8 (12-20); Blood Urea Nitrogen 18 mg/dL (9-16); Calcium 8.3 mg/dL (8.4-10.2); Carbon Dioxide 31 mmol/L (22-29); Chloride 95 mmol/L (96-108); Creatinine Clr Calc Pharmacy 53.1; Estimated Glomerular Filt Rate > 60; Glucose Random 151 mg/dL (60-115); Potassium 4.1 mmol/L (3.3-5.1); Sodium 130 mmol/L (135-145)
[2021-01-10 09:56] LABS: ABG Base Excess 7.4 mmol/L; ABG HCO3 31 mmol/L (22-26); ABG pCO2 40 mmHg (32-45); ABG pCO2 TC 40 mmHg (32-45); ABG pH 7.49 (7.35-7.45); ABG pH TC 7.49 (7.35-7.45); ABG pO2 99 mmHg (83-108); ABG pO2 TC 101 (83-108)
[2021-01-10 09:56] LABS: SLIDE REVIEW VERIFIED
[2021-01-10 10:04] LABS: ABG Refer to POC result
[2021-01-10 10:12] LABS: Troponin-I High Sensitivity 14.4 ng/L (<3.5-35.0)
--- NOTE | 2021-01-10 10:24 | P.PNIM_ITS ---
Subjective Subjective Date of Service: 01/10/21 Interval History: sob Cardiovascular Cardiovascular: Reports no additional cardiovascular complaints Gastrointestinal Gastrointestinal: Reports no additional gastrointestinal complaints Physical Exam Vital Signs: Vital Signs: Last Vital Signs Temp 99.1 F 01/10/21 08:00 Pulse 105 H 01/10/21 08:00 Resp 42 H 01/10/21 08:00 BP 111/73 01/10/21 08:00 Pulse Ox 95 01/10/21 08:00 Body Mass Index 17.9 General: AO X 3, frail, tachypneic Resp: Crackles CVS: S1,S2,RRR GI: soft, non tender, non distended Neuro: motor grossly weak Psych: appropriate affect Objective Data Current Medications Generic Name Dose Route Start Last Admin Trade Name Freq PRN Reason Stop Dose Admin Acetaminophen 650 mg 01/09/21 15:51 01/10/21 08:33 Acetaminophen 325 Mg Tablet G-TUBE 650 mg Q4H PRN Administration Pain, Mild (Pain Scale 1-3) Al Hydroxide/Mg Hydroxide 30 ml 01/08/21 15:46 Magnesium Hydrox/Alum Hydrox 30 Ml Oral.Susp G-TUBE Q4H PRN Dyspepsia Benzocaine 1 lozenge 12/31/20 17:25 01/03/21 14:59 Throat Lozenge, Medicated Lozenge MUCOUS MEM 1 lozenge Q2H PRN Administration Sore Throat Budesonide 2 puff 12/31/20 20:00 01/10/21 08:31 Budesonide 180 Mcg Aer.Pow.Ba INHALE 2 puff RBID DOMINICK Administration Clotrimazole 1 appl 01/06/21 21:00 01/10/21 08:31 Clotrimazole 1 % Cream 15 Gm Tube TOPICAL 1 appl BID DOMINICK Administration Protocol Dexamethasone 1 mg 01/09/21 09:00 01/10/21 08:32 Dexamethasone 0.5 Mg Tablet G-TUBE 1 mg DAILY DOMINICK Administration Famotidine 20 mg 01/09/21 09:00 01/10/21 08:32 Famotidine 20 Mg Tablet G-TUBE 20 mg DAILY DOMINICK Administration Lorazepam 0.5 mg 01/08/21 17:02 01/10/21 03:42 Lorazepam 0.5 Mg Tablet G-TUBE 0.5 mg Q6H PRN Administration anxiety Mirtazapine 15 mg 01/08/21 21:00 01/09/21 20:53 Mirtazapine 7.5 Mg Tablet G-TUBE 15 mg BEDTIME DOMINICK Administration Patient Own 1 each 01/08/21 21:00 Medication ( G-TUBE Nintedanib 150) BID DOMINICK Omeprazole 40 mg 01/08/21 16:30 01/10/21 05:21 Omeprazole 20 Mg/10 Ml Susp.Recon G-TUBE 40 mg BID@0630,1630 DOMINICK Administration Ondansetron HCl 4 mg 01/08/21 12:53 Ondansetron Hcl 4 Mg/2 Ml Vial IVPUSH ONCE PRN Nausea and Vomiting Oxycodone HCl 2.5 mg 01/10/21 09:39 Oxycodone Hcl Immed Release 5 Mg Tablet PO Q4H PRN moderate pain Prochlorperazine Edisylate 5 mg 12/31/20 23:21 01/06/21 09:42 Prochlorperazine Edisylate 10 Mg/2 Ml Vial IM 5 mg Q6H PRN Administration Nausea and Vomiting Quetiapine Fumarate 12.5 mg 01/08/21 21:00 01/09/21 20:53 Quetiapine Fumarate 25 Mg Tablet G-TUBE 12.5 mg BEDTIME DOMINICK Administration Thiamine HCl 100 mg 01/09/21 09:00 01/10/21 08:32 Thiamine Hcl 100 Mg Tablet G-TUBE 100 mg DAILY DOMINICK Administration Labs CBC & Chem 7: 01/10/21 09:28 01/10/21 09:26 Assessment and Plan (1) Dysphagia: Status: Acute Assessment and Plan: 80M with pmh of dysphagia, depression, ILD, currently in inpatient psychiatry for severe depression. was noted to have dysphagia and recently underwent Gtube placement for nutrition. called to see patient for sob and tachypnea. sob, tachypnea likely another aspiration event, CXR unchanged, ABG unremarkable, DDimer s ignificantly decreased from previous when CTA was negative - therefore pe unlikely can use opiates for work of breathing monitor on M5 for now as stable and does not appear to require any significant intervention- if any decline please let us know and will admit to medicine >35 minutes spent
[2021-01-10] MEDS: oxyCODONE HCl Immed Release 5 MG TABLET 2.5 MG PO ×2 (10:27→20:45)
[2021-01-10 12:00] VITALS: BP 91/52; PULSE 78; RESP 22; TEMP 37.2; O2SAT 97
--- NOTE | 2021-01-10 13:20 | HO.POSTANES ---
Post Anesthesia Evaluation Post Anesthesia Evaluation Vital Signs: Vital Signs Temp Pulse Resp BP Pulse Ox 01/10/21 12:00 99.0 F 78 22 H 91/52 L 97 01/10/21 08:00 99.1 F 105 H 42 H 111/73 95 01/10/21 04:00 97.7 F 102 H 34 H 134/72 94 Anesthesia: Monitored Mental Status: Awake Pain Control: Satisfactory Nausea/Vomiting: None Hydration: Adequate Anesthesia-Related Issues: No Anes. Related Issues
[2021-01-10 16:00] VITALS: BP 91/55; PULSE 77; RESP 24; TEMP 36.1
[2021-01-10 17:04] VITALS: O2SAT 94
[2021-01-10 20:00] VITALS: BP 98/61; PULSE 71; TEMP 36.4; O2SAT 99
[2021-01-10] MEDS: Mirtazapine 7.5 MG TABLET 15 MG G-TUBE (20:44)
[2021-01-10] MEDS: QUEtiapine Fumarate 25 MG TABLET 12.5 MG G-TUBE (20:45)
[2021-01-11 00:45] VITALS: BP 106/65; PULSE 72; RESP 24; TEMP 36.8; O2SAT 99
--- NOTE | 2021-01-11 01:40 | HO.PSYCHPN ---
Subjective Subjective Date of Service: 01/10/21 Reason For Visit: severe depression Interim History: pt tachypneic; pt reports he feels it's hard to catch his breath, but better on 02 med consult placed and pt worked up. Dr. Hassan reports most likely aspiration which should resolve on it's own. patient wants to remain on M5 and Dr. Hassan agrees that this is fine and pt does not require transfer to medical floor at this time. Pt's called and teletypewriter operator informed her of situation. Medication Compliance: Yes Mental Status Exam Mental Status Exam Narrative: Appearance: unkempt; with tachypnea Patient Orientation: Person, Place, Time and Situation Level of Consciousness: alert Patient Behavior: Appropriate, Passive, Avoidant and Poor Eye Contact Mood Description: Anxious Affect Description: anxious; Depressed and Blunted Ability to Follow Directions: Fair Speech Pattern: Monotone and Soft-Spoken Memory Description: Episodic Impaired Hallucinations: None Thought Process: Linear but slowed Thinking Thought Content: positive for [place], positive for Perseveration Depressive Symptoms: Increased Anxiety, Diff. Making Decisions, Sleeping More Than Usual, Isolating-Friends/Family, Unhappiness, Thoughts of /Suicide, Loss of Energy and Difficulty Concentrating Judgement: Fair Diagnostics Vital Signs (24Hr): Vital Signs - 24 hr 01/10/21 04:00 01/10/21 08:00 01/10/21 12:00 Temperature 97.7 F 99.1 F 99.0 F Pulse Rate 102 H 105 H 78 Respiratory Rate 34 H 42 H 22 H Blood Pressure 134/72 111/73 91/52 L Pulse Oximetry 94 95 97 01/10/21 16:00 01/10/21 17:04 01/10/21 20:00 Temperature 96.9 F 97.6 F Pulse Rate 77 71 Respiratory Rate 24 H Blood Pressure 91/55 L 98/61 Pulse Oximetry 94 99 01/11/21 00:45 Temperature 98.3 F Pulse Rate 72 Respiratory Rate 24 H Blood Pressure 106/65 Pulse Oximetry 99 Body Mass Index 17.9 Labs Results: 01/10/21 09:28 01/10/21 09:26 Labs: Laboratory Results - last 48 hr 01/09/21 01/10/21 01/10/21 07:12 09:26 09:26 WBC 18.1 H RBC 3.44 L Hgb 10.9 L Hct 31.8 L MCV 92.4 MCH 31.7 MCHC 34.3 RDW 15.2 Plt Count 347 MPV 10.8 Immature Gran % (Auto) Neut % (Auto) Lymph % (Auto) [place] % (Auto) Eos % (Auto) Baso % (Auto) Lymph # (Auto) [place] # (Auto) Eos # (Auto) Baso # (Auto) Abs Immat Gran (auto) Absolute Neuts (auto) Absolute Nucleated RBC 0.000 Nucleated RBC % (auto) 0.0 Smear Tech's Comments D-Dimer 994 O2 Saturation ABG pH at Pt Temp ABG pH (Temp Correct) ABG pCO2 at Pt Temp ABG pCO2 (Temp Corrct ABG pO2 at Pt Temp ABG pO2 (Temp Correct ABG HCO3 ABG Base Excess (Actual) Sodium 130 L Potassium 4.1 Chloride 95 L Carbon Dioxide 31 H Anion Gap 8 L BUN 18 H Creatinine 0.83 Estim Creat Clear Calc 53.1 Estimated GFR > 60 Random Glucose 151 H Calcium 8.3 L D Troponin I High Sens 01/10/21 01/10/21 01/10/21 09:26 09:28 09:49 WBC 22.2 H RBC 3.38 L Hgb 10.8 L Hct 31.2 L MCV 92.3 MCH 32.0 MCHC 34.6 RDW 15.1 Plt Count 311 MPV 10.4 Immature Gran % (Auto) 0.5 H Neut % (Auto) 84.9 H Lymph % (Auto) 7.4 L [place] % (Auto) 7.1 Eos % (Auto) 0.0 Baso % (Auto) 0.1 Lymph # (Auto) 1.6 [place] # (Auto) 1.6 H Eos # (Auto) 0.0 Baso # (Auto) 0.0 Abs Immat Gran (auto) 0.12 H Absolute Neuts (auto) 18.8 H Absolute Nucleated RBC 0.000 Nucleated RBC % (auto) 0.0 Smear Tech's Comments VERIFIED D-Dimer O2 Saturation 98.0 ABG pH at Pt Temp 7.49 H ABG pH (Temp Correct) 7.49 H ABG pCO2 at Pt Temp 40 ABG pCO2 (Temp Corrct 40 ABG pO2 at Pt Temp 99 ABG pO2 (Temp Correct 101 ABG HCO3 31 H ABG Base Excess (Actual) 7.4 Sodium Potassium Chloride Carbon Dioxide Anion Gap BUN Creatinine Estim Creat Clear Calc Estimated GFR Random Glucose Calcium Troponin I High Sens 14.4 D Imaging Radiology Impressions: ITS Impressions Modified Barium Swallow 01/07/21 14:15 IMPRESSION: Laryngeal penetration and occasional aspiration as described above. Please refer to speech pathology report for details. Chest X-Ray 01/10/21 09:11 IMPRESSION: Severe chronic interstitial lung disease. No evidence of acute superimposed pneumonitis. Medications Medications Current Medications Generic Name Dose Route Start Last Admin Trade Name Freq PRN Reason Stop Dose Admin Acetaminophen 650 mg 01/09/21 15:51 01/10/21 16:36 Acetaminophen 325 Mg Tablet G-TUBE 650 mg Q4H PRN Administration Pain, Mild (Pain Scale 1-3) Al Hydroxide/Mg Hydroxide 30 ml 01/08/21 15:46 Magnesium Hydrox/Alum Hydrox 30 Ml Oral.Susp G-TUBE Q4H PRN Dyspepsia Benzocaine 1 lozenge 12/31/20 17:25 01/03/21 14:59 Throat Lozenge, Medicated Lozenge MUCOUS MEM 1 lozenge Q2H PRN Administration Sore Throat Budesonide 2 puff 12/31/20 20:00 01/10/21 21:02 Budesonide 180 Mcg Aer.Pow.Ba INHALE 2 puff RBID DOMINICK Administration Clotrimazole 1 appl 01/06/21 21:00 01/10/21 20:47 Clotrimazole 1 % Cream 15 Gm Tube TOPICAL 1 appl BID DOMINICK Administration Protocol Dexamethasone 1 mg 01/09/21 09:00 01/10/21 08:32 Dexamethasone 0.5 Mg Tablet G-TUBE 1 mg DAILY DOMINICK Administration Famotidine 20 mg 01/09/21 09:00 01/10/21 08:32 Famotidine 20 Mg Tablet G-TUBE 20 mg DAILY DOMINICK Administration Lorazepam 0.5 mg 01/08/21 17:02 01/10/21 03:42 Lorazepam 0.5 Mg Tablet G-TUBE 0.5 mg Q6H PRN Administration anxiety Mirtazapine 15 mg 01/08/21 21:00 01/10/21 20:44 Mirtazapine 7.5 Mg Tablet G-TUBE 15 mg BEDTIME DOMINICK Administration Patient Own 1 each 01/08/21 21:00 Medication ( G-TUBE Nintedanib 150) BID DOMINICK Omeprazole 40 mg 01/08/21 16:30 01/10/21 16:36 Omeprazole 20 Mg/10 Ml Susp.Recon G-TUBE 40 mg BID@0630,1630 DOMINICK Administration Ondansetron HCl 4 mg 01/08/21 12:53 Ondansetron Hcl 4 Mg/2 Ml Vial IVPUSH ONCE PRN Nausea and Vomiting Oxycodone HCl 2.5 mg 01/10/21 09:39 01/10/21 20:45 Oxycodone Hcl Immed Release 5 Mg Tablet PO 2.5 mg Q4H PRN Administration moderate pain Prochlorperazine Edisylate 5 mg 12/31/20 23:21 01/06/21 09:42 Prochlorperazine Edisylate 10 Mg/2 Ml Vial IM 5 mg Q6H PRN Administration Nausea and Vomiting Quetiapine Fumarate 12.5 mg 01/08/21 21:00 01/10/21 20:45 Quetiapine Fumarate 25 Mg Tablet G-TUBE 12.5 mg BEDTIME DOMINICK Administration Thiamine HCl 100 mg 01/09/21 09:00 01/10/21 08:32 Thiamine Hcl 100 Mg Tablet G-TUBE 100 mg DAILY DOMINICK Administration Allergies Allergies Allergy/AdvReac Type Severity Reaction Status Date / Time Sulfa (Sulfonamide Allergy Unknown UNKNOWN Verified 12/01/20 09:47 Antibiotics) [SULFA (SULFONAMIDE ANTIBIOTICS)] zoster vaccine live Allergy Hives Verified 12/01/20 09:47 Assessment & Plan Assessment & Plan (1) Dysphagia: Status: Acute Code(s): R13.10 - Dysphagia, unspecified Assessment and Plan: Hold off ECT for monday; dr. Francois informed. Patient and agree pt NPO per Dr. hassan and fed through Gtube only; teletypewriter operator discussed this with nursing continue current medication regimen primary team to further assess tx plan on 01/11/21 added low dose oxycodone for breakthrough pain; can titrate further if needed; want to start low to avoid overly sedating patient given aspiration risk Dr. Hassan: 80M with pmh of dysphagia, depression, ILD, currently in inpatient psychiatry for severe depression. was noted to have dysphagia and recently underwent Gtube placement for nutrition. called to see patient for sob and tachypnea. sob, tachypnea likely another aspiration event, CXR unchanged, ABG unremarkable, DDimer significantly decreased from previous when CTA was negative - therefore pe unlikely can use opiates for work of breathing monitor on M5 for now as stable and does not appear to require any significant intervention- if any decline please let us know and will admit to medicine ' >35 minutes spent Greater than 50% of the session was spent on counseling and/or coordination of care Reason for contiued inpatient stay Substantial Risk for: med/psych decompensation
[2021-01-11] MEDS: Acetaminophen 325 MG TABLET 650 MG G-TUBE ×3 (06:58→16:46)
[2021-01-11] MEDS: LORazepam 0.5 MG TABLET G-TUBE ×3 (06:59→19:04)
[2021-01-11 07:10] VITALS: BP 134/73; PULSE 90; RESP 24; TEMP 36.4; O2SAT 97
[2021-01-11] MEDS: Famotidine 20 MG TABLET G-TUBE (08:23)
[2021-01-11] MEDS: Thiamine HCL 100 MG TABLET G-TUBE (08:24)
[2021-01-11] MEDS: Budesonide 180 MCG AER.POW.BA 2 PUFF INHALE ×2 (08:29→21:38)
[2021-01-11] MEDS: Clotrimazole 1 % Cream 15 GM TUBE 1 APPL TOPICAL ×2 (08:34→21:37)
--- NOTE | 2021-01-11 08:42 | HO.PM.IMPN ---
Subjective Subjective Date of Service: 01/11/21 Interval History: patient is feeling better today, less sob, still very weak Cardiovascular Cardiovascular: Reports no additional cardiovascular complaints Gastrointestinal Gastrointestinal: Reports no additional gastrointestinal complaints Physical Exam Vital Signs: Vital Signs: Last Vital Signs Temp 97.5 F 01/11/21 07:10 Pulse 90 01/11/21 07:10 Resp 24 H 01/11/21 07:10 BP 134/73 01/11/21 07:10 Pulse Ox 97 01/11/21 07:10 Body Mass Index 17.9 General: AO X 3, ill appearing, mild tachypnea but significantly less than yesterday Resp: Crackles CVS: S1,S2,RRR GI: soft, non tender, non distended Neuro: motor grossly weak, no cogwheel rigidity or bradykinesia Psych: flat affect Objective Data Current Medications Generic Name Dose Route Start Last Admin Trade Name Freq PRN Reason Stop Dose Admin Acetaminophen 650 mg 01/09/21 15:51 01/11/21 06:58 Acetaminophen 325 Mg Tablet G-TUBE 650 mg Q4H PRN Administration Pain, Mild (Pain Scale 1-3) Al Hydroxide/Mg Hydroxide 30 ml 01/08/21 15:46 Magnesium Hydrox/Alum Hydrox 30 Ml Oral.Susp G-TUBE Q4H PRN Dyspepsia Benzocaine 1 lozenge 12/31/20 17:25 01/03/21 14:59 Throat Lozenge, Medicated Lozenge MUCOUS MEM 1 lozenge Q2H PRN Administration Sore Throat Budesonide 2 puff 12/31/20 20:00 01/11/21 08:29 Budesonide 180 Mcg Aer.Pow.Ba INHALE 2 puff RBID DOMINICK Administration Clotrimazole 1 appl 01/06/21 21:00 01/11/21 08:34 Clotrimazole 1 % Cream 15 Gm Tube TOPICAL 1 appl BID DOMINICK Administration Protocol Dexamethasone 1 mg 01/09/21 09:00 01/11/21 08:23 Dexamethasone 0.5 Mg Tablet G-TUBE 1 mg DAILY DOMINICK Administration Famotidine 20 mg 01/09/21 09:00 01/11/21 08:23 Famotidine 20 Mg Tablet G-TUBE 20 mg DAILY DOMINICK Administration Lorazepam 0.5 mg 01/08/21 17:02 01/11/21 06:59 Lorazepam 0.5 Mg Tablet G-TUBE 0.5 mg Q6H PRN Administration anxiety Mirtazapine 15 mg 01/08/21 21:00 01/10/21 20:44 Mirtazapine 7.5 Mg Tablet G-TUBE 15 mg BEDTIME DOMINICK Administration Patient Own 1 each 01/08/21 21:00 Medication ( G-TUBE Nintedanib 150) BID DOMINICK Omeprazole 40 mg 01/08/21 16:30 01/11/21 05:04 Omeprazole 20 Mg/10 Ml Susp.Recon G-TUBE 40 mg BID@0630,1630 DOMINICK Administration Ondansetron HCl 4 mg 01/08/21 12:53 Ondansetron Hcl 4 Mg/2 Ml Vial IVPUSH ONCE PRN Nausea and Vomiting Oxycodone HCl 2.5 mg 01/10/21 09:39 01/10/21 20:45 Oxycodone Hcl Immed Release 5 Mg Tablet PO 2.5 mg Q4H PRN Administration moderate pain Prochlorperazine Edisylate 5 mg 12/31/20 23:21 01/06/21 09:42 Prochlorperazine Edisylate 10 Mg/2 Ml Vial IM 5 mg Q6H PRN Administration Nausea and Vomiting Quetiapine Fumarate 12.5 mg 01/08/21 21:00 01/10/21 20:45 Quetiapine Fumarate 25 Mg Tablet G-TUBE 12.5 mg BEDTIME DOMINICK Administration Thiamine HCl 100 mg 01/09/21 09:00 01/11/21 08:24 Thiamine Hcl 100 Mg Tablet G-TUBE 100 mg DAILY DOMINICK Administration Labs CBC & Chem 7: 01/10/21 09:28 01/10/21 09:26 Assessment and Plan (1) Dysphagia: Status: Acute Assessment and Plan: 80M with pmh of dysphagia, depression, ILD, currently in inpatient psychiatry for severe depression. was noted to have dysphagia and recently underwent Gtube placement for nutrition. called to see patient 01/10/21 for sob and tachypnea. sob, tachypnea likely another mild aspiration event, alternatively increased demand from feeds feeling much better today work up 01/10 was unremarkable can use opiates for work of breathing monitor on M5 for now as stable and does not appear to require any significant intervention- if any decline please let us know and will admit to medicine
--- NOTE | 2021-01-11 11:21 | HO.PSYCHPN ---
Subjective Subjective Date of Service: 01/11/21 Reason For Visit: severe depression Interim History: The patient was assessed at bedside, he was with a PEG tube. he reported that he is doing a little better, no new symtpoms Medication Compliance: Yes Side effects from medications: No Attending Groups: No Review of Systems Acute medical concerns: Yes New PEG Medical Review of Systems: unchanged Mental Status Exam Mental Status Exam Patient Appearance: Well Grooomed (on hospital gowns) Patient Orientation: Person, Place, Time and Situation Level of Consciousness: Awake Patient Behavior: Cooperative Mood Description: Calm Affect Description: Constricted and Depressed Patient Cognition Impaired: No Ability to Follow Directions: Good Speech Pattern: Clear Memory Description: Intact Hallucinations: None Delusions: Not Present Thought Process: Goal Oriented Thought Content: positive for Circumstantial Judgement: Fair Diagnostics Vital Signs (24Hr): Vital Signs - 24 hr 01/10/21 12:00 01/10/21 16:00 01/10/21 17:04 Temperature 99.0 F 96.9 F Pulse Rate 78 77 Respiratory Rate 22 H 24 H Blood Pressure 91/52 L 91/55 L Pulse Oximetry 97 94 01/10/21 20:00 01/11/21 00:45 01/11/21 07:10 Temperature 97.6 F 98.3 F 97.5 F Pulse Rate 71 72 90 Respiratory Rate 24 H 24 H Blood Pressure 98/61 106/65 134/73 Pulse Oximetry 99 99 97 Body Mass Index 17.9 Labs Results: 01/10/21 09:28 01/10/21 09:26 Labs: Laboratory Results - last 48 hr 01/10/21 01/10/21 01/10/21 09:26 09:26 09:26 WBC RBC Hgb Hct MCV MCH MCHC RDW Plt Count MPV Immature Gran % (Auto) Neut % (Auto) Lymph % (Auto) [place] % (Auto) Eos % (Auto) Baso % (Auto) Lymph # (Auto) [place] # (Auto) Eos # (Auto) Baso # (Auto) Abs Immat Gran (auto) Absolute Neuts (auto) Absolute Nucleated RBC Nucleated RBC % (auto) Smear Tech's Comments D-Dimer 994 O2 Saturation ABG pH at Pt Temp ABG pH (Temp Correct) ABG pCO2 at Pt Temp ABG pCO2 (Temp Corrct ABG pO2 at Pt Temp ABG pO2 (Temp Correct ABG HCO3 ABG Base Excess (Actual) Sodium 130 L Potassium 4.1 Chloride 95 L Carbon Dioxide 31 H Anion Gap 8 L BUN 18 H Creatinine 0.83 Estim Creat Clear Calc 53.1 Estimated GFR > 60 Random Glucose 151 H Calcium 8.3 L D Troponin I High Sens 14.4 D 01/10/21 01/10/21 09:28 09:49 WBC 22.2 H RBC 3.38 L Hgb 10.8 L Hct 31.2 L MCV 92.3 MCH 32.0 MCHC 34.6 RDW 15.1 Plt Count 311 MPV 10.4 Immature Gran % (Auto) 0.5 H Neut % (Auto) 84.9 H Lymph % (Auto) 7.4 L [place] % (Auto) 7.1 Eos % (Auto) 0.0 Baso % (Auto) 0.1 Lymph # (Auto) 1.6 [place] # (Auto) 1.6 H Eos # (Auto) 0.0 Baso # (Auto) 0.0 Abs Immat Gran (auto) 0.12 H Absolute Neuts (auto) 18.8 H Absolute Nucleated RBC 0.000 Nucleated RBC % (auto) 0.0 Smear Tech's Comments VERIFIED D-Dimer O2 Saturation 98.0 ABG pH at Pt Temp 7.49 H ABG pH (Temp Correct) 7.49 H ABG pCO2 at Pt Temp 40 ABG pCO2 (Temp Corrct 40 ABG pO2 at Pt Temp 99 ABG pO2 (Temp Correct 101 ABG HCO3 31 H ABG Base Excess (Actual) 7.4 Sodium Potassium Chloride Carbon Dioxide Anion Gap BUN Creatinine Estim Creat Clear Calc Estimated GFR Random Glucose Calcium Troponin I High Sens Imaging Radiology Impressions: ITS Impressions Modified Barium Swallow 01/07/21 14:15 IMPRESSION: Laryngeal penetration and occasional aspiration as described above. Please refer to speech pathology report for details. Chest X-Ray 01/10/21 09:11 IMPRESSION: Severe chronic interstitial lung disease. No evidence of acute superimposed pneumonitis. Medications Medications Current Medications Generic Name Dose Route Start Last Admin Trade Name Freq PRN Reason Stop Dose Admin Acetaminophen 650 mg 01/09/21 15:51 01/11/21 06:58 Acetaminophen 325 Mg Tablet G-TUBE 650 mg Q4H PRN Administration Pain, Mild (Pain Scale 1-3) Al Hydroxide/Mg Hydroxide 30 ml 01/08/21 15:46 Magnesium Hydrox/Alum Hydrox 30 Ml Oral.Susp G-TUBE Q4H PRN Dyspepsia Benzocaine 1 lozenge 12/31/20 17:25 01/03/21 14:59 Throat Lozenge, Medicated Lozenge MUCOUS MEM 1 lozenge Q2H PRN Administration Sore Throat Budesonide 2 puff 12/31/20 20:00 01/11/21 08:29 Budesonide 180 Mcg Aer.Pow.Ba INHALE 2 puff RBID DOMINICK Administration Clotrimazole 1 appl 01/06/21 21:00 01/11/21 08:34 Clotrimazole 1 % Cream 15 Gm Tube TOPICAL 1 appl BID DOMINICK Administration Protocol Dexamethasone 1 mg 01/09/21 09:00 01/11/21 08:23 Dexamethasone 0.5 Mg Tablet G-TUBE 1 mg DAILY DOMINICK Administration Famotidine 20 mg 01/09/21 09:00 01/11/21 08:23 Famotidine 20 Mg Tablet G-TUBE 20 mg DAILY DOMINICK Administration Lorazepam 0.5 mg 01/08/21 17:02 01/11/21 06:59 Lorazepam 0.5 Mg Tablet G-TUBE 0.5 mg Q6H PRN Administration anxiety Mirtazapine 15 mg 01/08/21 21:00 01/10/21 20:44 Mirtazapine 7.5 Mg Tablet G-TUBE 15 mg BEDTIME DOMINICK Administration Patient Own 1 each 01/08/21 21:00 Medication ( G-TUBE Nintedanib 150) BID DOMINICK Omeprazole 40 mg 01/08/21 16:30 01/11/21 05:04 Omeprazole 20 Mg/10 Ml Susp.Recon G-TUBE 40 mg BID@0630,1630 DOMINICK Administration Ondansetron HCl 4 mg 01/08/21 12:53 Ondansetron Hcl 4 Mg/2 Ml Vial IVPUSH ONCE PRN Nausea and Vomiting Oxycodone HCl 2.5 mg 01/10/21 09:39 01/10/21 20:45 Oxycodone Hcl Immed Release 5 Mg Tablet PO 2.5 mg Q4H PRN Administration moderate pain Prochlorperazine Edisylate 5 mg 12/31/20 23:21 01/06/21 09:42 Prochlorperazine Edisylate 10 Mg/2 Ml Vial IM 5 mg Q6H PRN Administration Nausea and Vomiting Quetiapine Fumarate 12.5 mg 01/08/21 21:00 01/10/21 20:45 Quetiapine Fumarate 25 Mg Tablet G-TUBE 12.5 mg BEDTIME DOMINICK Administration Thiamine HCl 100 mg 01/09/21 09:00 01/11/21 08:24 Thiamine Hcl 100 Mg Tablet G-TUBE 100 mg DAILY DOMINICK Administration Allergies Allergies Allergy/AdvReac Type Severity Reaction Status Date / Time Sulfa (Sulfonamide Allergy Unknown UNKNOWN Verified 12/01/20 09:47 Antibiotics) [SULFA (SULFONAMIDE ANTIBIOTICS)] zoster vaccine live Allergy Hives Verified 12/01/20 09:47 Assessment & Plan Assessment & Plan (1) Dysphagia: Status: Acute Code(s): R13.10 - Dysphagia, unspecified Assessment and Plan: 80M with pmh of dysphagia, depression, ILD, currently in inpatient psychiatry for severe depression. was noted to have dysphagia and recently underwent Gtube placement for nutrition. called to see patient 01/10/21 for sob and tachypnea. sob, tachypnea likely another mild aspiration event, alternatively increased demand from feeds feeling much better today work up 01/10 was unremarkable can use opiates for work of breathing monitor on M5 for now as stable and does not appear to require any significant intervention- if any decline please let us know and will admit to medicine Greater than 50% of the session was spent on counseling and/or coordination of care Reason for contiued inpatient stay Substantial Risk for: inability to function, rapid decompensation and med/psych decompensation
[2021-01-11 13:16] VITALS: BP 108/63; PULSE 74; RESP 18; O2SAT 95
--- NOTE | 2021-01-11 14:57 | MHC.CLN ---
F/U PEG PLACED 01/08/21 PT RECEIVING JEVITY AT MAX GOAL RATE 60CC/HR WITH 120CC FREE WATER FLUSHES Q SHIFT TO PROVIDE 1526KCALS (29KCALS/KG), 63G PROTEIN (1.2G/KG), 1562CC TOTAL WATER FROM FORMULA AND FLUSHES (30CC/KG) MONITOR TOLERANCE, RESIDUALS AND LYTES NA, MG, PHOS AND K+ STRICT WEEKLY WEIGHTS
[2021-01-11 16:30] VITALS: BP 106/63; PULSE 73; RESP 28; TEMP 36.1; O2SAT 93
[2021-01-11 19:25] VITALS: BP 97/55; PULSE 66; RESP 24; TEMP 36.4
[2021-01-11] MEDS: Mirtazapine 7.5 MG TABLET 15 MG G-TUBE (21:34)
[2021-01-11] MEDS: oxyCODONE HCl Immed Release 5 MG TABLET 2.5 MG PO (21:35)
[2021-01-11] MEDS: QUEtiapine Fumarate 25 MG TABLET 12.5 MG G-TUBE (21:35)
[2021-01-12 06:06] VITALS: BP 109/62; PULSE 71; RESP 20; TEMP 36.4; O2SAT 96
--- NOTE | 2021-01-12 07:13 | P.CDIC_ITS ---
CDI Concurrent Query Service Date: 01/12/21 Documentation Clarification: Please clarify if you are treating a proba ble/suspected/likely or confirmed: PLEASE DO NOT DELETE/MODIFY EXISTING CONTENT Additional information is needed in order to code to the highest accuracy and appropriate Severity of Illness (SOI). Please clarify the information noted below in your progress notes and discharge summary. Risk Factors/Clinical Indicators/Treatments CDS: Blane Chowdhury Contact Number: Please Review the information above and exercise your independent professional judgment in responding to the query. If you concur, pleas document in the PROGRESS NOTES and DISCHARGE SUMMARY. If you do not agree with the query, please document in the query above. THIS QUERY IS PART OF THE PERMANENT MEDICAL RECORD
[2021-01-12 09:17] VITALS: BP 130/69; PULSE 81; RESP 33; TEMP 37.1; O2SAT 94
[2021-01-12] MEDS: LORazepam 0.5 MG TABLET G-TUBE ×2 (09:38→17:15)
[2021-01-12] MEDS: Thiamine HCL 100 MG TABLET G-TUBE (09:38)
[2021-01-12] MEDS: Clotrimazole 1 % Cream 15 GM TUBE 1 APPL TOPICAL ×2 (09:39→20:19)
[2021-01-12] MEDS: Famotidine 20 MG TABLET G-TUBE (09:39)
[2021-01-12] MEDS: Budesonide 180 MCG AER.POW.BA 2 PUFF INHALE ×2 (09:39→20:19)
[2021-01-12] MEDS: oxyCODONE HCl Immed Release 5 MG TABLET 2.5 MG PO ×2 (09:40→16:43)
--- NOTE | 2021-01-12 10:47 | HO.PSYCHPN ---
Subjective Subjective Date of Service: 01/12/21 Reason For Visit: severe depression Subjective Notes: Conditional Voluntary Interim History: Patient on PEG depressed hopeless withdrawn recent consult held off on ECT clearance Medication Compliance: Yes Side effects from medications: Yes Attending Groups: No Mental Status Exam Mental Status Exam Patient Appearance: Well Grooomed (on hospital gowns) Patient Orientation: Person, Place, Time and Situation Level of Consciousness: Awake Patient Behavior: Cooperative Mood Description: Calm, Withdrawn, Depressed and Anxious Affect Description: Constricted and Depressed Patient Cognition Impaired: No Ability to Follow Directions: Good Speech Pattern: Clear Memory Description: Intact Hallucinations: None Delusions: Not Present Thought Process: Goal Oriented Thought Content: positive for Circumstantial Judgement: Fair Diagnostics Vital Signs (24Hr): Vital Signs - 24 hr 01/11/21 13:16 01/11/21 16:30 01/11/21 19:25 Temperature 97.0 F 97.5 F Pulse Rate 74 73 66 Respiratory Rate 18 28 H 24 H Blood Pressure 108/63 106/63 97/55 L Pulse Oximetry 95 93 01/12/21 06:06 01/12/21 09:17 Temperature 97.6 F 98.7 F Pulse Rate 71 81 Respiratory Rate 20 33 H Blood Pressure 109/62 130/69 Pulse Oximetry 96 94 Body Mass Index 17.9 Labs Results: 01/10/21 09:28 01/10/21 09:26 Imaging Radiology Impressions: ITS Impressions Modified Barium Swallow 01/07/21 14:15 IMPRESSION: Laryngeal penetration and occasional aspiration as described above. Please refer to speech pathology report for details. Chest X-Ray 01/10/21 09:11 IMPRESSION: Severe chronic interstitial lung disease. No evidence of acute superimposed pneumonitis. Medications Medications Current Medications Generic Name Dose Route Start Last Admin Trade Name Freq PRN Reason Stop Dose Admin Acetaminophen 650 mg 01/09/21 15:51 01/11/21 16:46 Acetaminophen 325 Mg Tablet G-TUBE 650 mg Q4H PRN Administration Pain, Mild (Pain Scale 1-3) Al Hydroxide/Mg Hydroxide 30 ml 01/08/21 15:46 Magnesium Hydrox/Alum Hydrox 30 Ml Oral.Susp G-TUBE Q4H PRN Dyspepsia Benzocaine 1 lozenge 12/31/20 17:25 01/03/21 14:59 Throat Lozenge, Medicated Lozenge MUCOUS MEM 1 lozenge Q2H PRN Administration Sore Throat Budesonide 2 puff 12/31/20 20:00 01/12/21 09:39 Budesonide 180 Mcg Aer.Pow.Ba INHALE 2 puff RBID DOMINICK Administration Clotrimazole 1 appl 01/06/21 21:00 01/12/21 09:39 Clotrimazole 1 % Cream 15 Gm Tube TOPICAL 1 appl BID DOMINICK Administration Protocol Dexamethasone 1 mg 01/09/21 09:00 01/12/21 09:38 Dexamethasone 0.5 Mg Tablet G-TUBE 1 mg DAILY DOMINICK Administration Famotidine 20 mg 01/09/21 09:00 01/12/21 09:39 Famotidine 20 Mg Tablet G-TUBE 20 mg DAILY DOMINICK Administration Lorazepam 0.5 mg 01/08/21 17:02 01/12/21 09:38 Lorazepam 0.5 Mg Tablet G-TUBE 0.5 mg Q6H PRN Administration anxiety Mirtazapine 15 mg 01/08/21 21:00 01/11/21 21:34 Mirtazapine 7.5 Mg Tablet G-TUBE 15 mg BEDTIME DOMINICK Administration Patient Own 1 each 01/08/21 21:00 Medication ( G-TUBE Nintedanib 150) BID DOMINICK Omeprazole 40 mg 01/08/21 16:30 01/12/21 05:25 Omeprazole 20 Mg/10 Ml Susp.Recon G-TUBE 40 mg BID@0630,1630 DOMINICK Administration Ondansetron HCl 4 mg 01/08/21 12:53 Ondansetron Hcl 4 Mg/2 Ml Vial IVPUSH ONCE PRN Nausea and Vomiting Oxycodone HCl 2.5 mg 01/10/21 09:39 01/12/21 09:40 Oxycodone Hcl Immed Release 5 Mg Tablet PO 2.5 mg Q4H PRN Administration moderate pain Prochlorperazine Edisylate 5 mg 12/31/20 23:21 01/06/21 09:42 Prochlorperazine Edisylate 10 Mg/2 Ml Vial IM 5 mg Q6H PRN Administration Nausea and Vomiting Quetiapine Fumarate 12.5 mg 01/08/21 21:00 01/11/21 21:35 Quetiapine Fumarate 25 Mg Tablet G-TUBE 12.5 mg BEDTIME DOMINICK Administration Thiamine HCl 100 mg 01/09/21 09:00 01/12/21 09:38 Thiamine Hcl 100 Mg Tablet G-TUBE 100 mg DAILY DOMINICK Administration Allergies Allergies Allergy/AdvReac Type Severity Reaction Status Date / Time Sulfa (Sulfonamide Allergy Unknown UNKNOWN Verified 12/01/20 09:47 Antibiotics) [SULFA (SULFONAMIDE ANTIBIOTICS)] zoster vaccine live Allergy Hives Verified 12/01/20 09:47 Assessment & Plan Assessment & Plan (1) Dysphagia: Status: Acute Code(s): R13.10 - Dysphagia, unspecified Assessment and Plan: 80M with pmh of dysphagia, depression, ILD, currently in inpatient psychiatry for severe depression. was noted to have dysphagia and recently underwent Gtube placement for nutrition. called to see patient 01/10/21 for sob and tachypnea. sob, tachypnea likely another mild aspiration event, alternatively increased demand from feeds feeling much better today work up 01/10 was unremarkable can use opiates for work of breathing monitor on M5 for now as stable and does not appear to require any significant intervention- if any decline please let us know and will admit to medicine Depression ECT on hold hopefully with refeeding patient will feel better. Taper mirtazapine has not been hopeful discussed option of stimulants at low doses for depression failure to thrive Greater than 50% of the session was spent on counseling and/or coordination of care Reason for contiued inpatient stay Substantial Risk for: inability to function, rapid decompensation and med/psych decompensation
[2021-01-12 13:50] VITALS: BP 113/60; PULSE 76; RESP 30; TEMP 36.4; O2SAT 93
[2021-01-12 16:00] VITALS: BP 120/77; PULSE 76; RESP 28; TEMP 36.4; O2SAT 94; BMI 18.1
--- NOTE | 2021-01-12 16:02 | PC.NURSE ---
Patient is alert and oriented x 3, fatigued upon approach. When asked how he is feeling, Sai replies Not well. Upon further inquiry Sai reports continued depression reporting, I feel inadequate. This account underwriter discusses the approach of celebrating small successes throughout the day. Ambulation, Incentive Spirometry gains, etc. Sai was in agreement with this approach though struggled to share a success. Sai ambulated in the hallway with two staff approach. He ambulated to the Nurse's station, required a break to rest and then returned back to his room, requiring one more break along the way. His Respiration Rate was noted to be 44 during ambulation and he required 2L O2. Personal care was completed with groin area cleaned and ordered cream applied. PEG tube site was cleaned and new dressing applied. PEG tube was flushed with Sterile Water per M.D. orders. Medications administered per M.D. orders. Of note, Patient's Own Medication, Nintedanib cannot be given via G-Tube as there is no way to open the capsule and extract the drug due to the semisolid fillmix, per Pharmacy. Radha Chowdhury, paramedic instructor, and Director made aware. Pulmonary consult to be ordered.
[2021-01-12 20:00] VITALS: PULSE 85; RESP 24; TEMP 36.4; O2SAT 94
[2021-01-12] MEDS: QUEtiapine Fumarate 25 MG TABLET 12.5 MG G-TUBE (20:16)
[2021-01-12] MEDS: Mirtazapine 7.5 MG TABLET 15 MG G-TUBE (20:17)
--- NOTE | 2021-01-12 21:11 | PC.NURSE ---
Communicate order via Gabriel Marie MD for pt Sai Azar to have small sips of water q2h. Blane Chowdhury aware. Pt is NPO with receiving small sips of water without any difficulty presently
--- NOTE | 2021-01-13 | ECG_ITS ---
Test Reason : CONDUCTION DELAY Blood Pressure : / mmHG Vent. Rate : 074 BPM Atrial Rate : 074 BPM P-R Int : 126 ms QRS Dur : 084 ms QT Int : 404 ms P-R-T Axes : 031 027 027 degrees QTc Int : 448 ms Normal sinus rhythm Possible Left atrial enlargement Borderline ECG When compared with ECG of 10-JAN-2021 09:17, T wave inversion no longer evident in Anterior leads Referred By: Blane Chowdhury Electronically Signed By:YUDI GUILLEN
[2021-01-13 06:14] VITALS: BP 114/70; PULSE 73; RESP 18; TEMP 36.6; O2SAT 94
[2021-01-13] MEDS: Throat Lozenge, Medicated LOZENGE 1 LOZENGE MUCOUS MEM (06:43)
[2021-01-13] MEDS: Thiamine HCL 100 MG TABLET G-TUBE (08:25)
[2021-01-13] MEDS: Famotidine 20 MG TABLET G-TUBE (08:26)
[2021-01-13] MEDS: LORazepam 0.5 MG TABLET G-TUBE ×2 (08:26→14:55)
[2021-01-13] MEDS: Budesonide 180 MCG AER.POW.BA 2 PUFF INHALE ×2 (08:29→20:57)
[2021-01-13 08:35] LABS: Alanine Aminotransferase 20 U/L (0-40); Albumin Level 2.5 g/dL (3.5-5.0); Alkaline Phosphatase 150 U/L (39-117); Anion Gap 10 (12-20); Aspartate Amino Transferase 27 U/L (5-37); Bilirubin Total 0.4 mg/dL (0.0-1.0); Blood Urea Nitrogen 18 mg/dL (9-16); Calcium 8.5 mg/dL (8.4-10.2); Carbon Dioxide 33 mmol/L (22-29); Chloride 95 mmol/L (96-108); Creatinine Clr Calc Pharmacy 57.2; Estimated Glomerular Filt Rate > 60; Glucose Random 132 mg/dL (60-115); Potassium 4.6 mmol/L (3.3-5.1); Sodium 133 mmol/L (135-145); Total Protein 5.9 g/dL (6.5-8.0)
[2021-01-13] MEDS: Clotrimazole 1 % Cream 15 GM TUBE 1 APPL TOPICAL ×2 (11:02→20:57)
[2021-01-13] MEDS: oxyCODONE HCl Immed Release 5 MG TABLET 2.5 MG PO ×3 (11:04→21:05)
[2021-01-13 12:00] VITALS: BP 140/82; PULSE 78; RESP 16; TEMP 36.8; O2SAT 94
--- NOTE | 2021-01-13 12:52 | PM.CNPUL ---
History of Present Illness History of Present Illness Consult date: 01/13/21 Chief complaint: severe depression Narrative: 80-year-old gentleman, nonsmoker, with underlying history of advanced idiopathic pulmonary fibrosis on Ofev therapy usually followed by Dr. Yee at [facility] pulmonary Department, also underlying congestive heart failure admitted to psychiatric unit on December 04, of note patient has had increased oxygen requirements up to 2 L continuous flow after his recent ECT on November 27, 2020. The patient continues to be the patient continues to be in the psychiatric unit. Status post PEG placement and now getting tube feedings. Apparently he did have an episode of worsening shortness of breath. Repeat chest x-ray again demonstrated significant reticulonodular opacities consistent with his advanced idiopathic pulmonary fibrosis. Generally this carries a poor prognosis due to the progressive nature of it. Review of Systems Constitutional: Constitutional: Reports fatigue, Reports lethargy, Reports malaise, Denies night sweats and Reports weight loss ENT: Denies change in voice, Reports dysphagia, Denies lip swelling, Denies mouth pain, Reports nasal congestion, Reports nasal discharge and Denies tongue swelling Cardiovascular: Cardiovascular: Denies chest pain and Reports dyspnea Respiratory: Respiratory: Reports cough, Denies hemoptysis and Reports dyspnea Gastrointestinal: Gastrointestinal: Denies abdominal pain and Reports dysphagia Musculoskeletal: Musculoskeletal: Denies no additional musculoskeletal complaints Neurologic: Denies Neuro-related abnormal movements Psychiatric: Psychiatric: Denies no additional psychiatric complaints Endocrine: Endocrine: Reports fatigue Hematologic/Lymphatic: Hematologic/Lymphatic: Denies easy bleeding and Denies lymphadenopathy Allergic/Immunologic: Allergic/Immunologic: Denies lip swelling and Denies tongue swelling FORMERLY [facility], [facility] Past Medical History Medical History (Updated 01/13/21 @ 12:56 by Edner Domingo MD) Anemia Anxiety Bronchiectasis Cerebrovascular disease Chronic hyponatremia Chronic respiratory failure CKD (chronic kidney disease) stage 3, GFR 30-59 ml/min Degenerative arthritis Depression History of electroconvulsive therapy Hx of bladder cancer Hydrocele Pulmonary fibrosis Pulmonary fibrosis Family History Family History Father Colon cancer Surgical History Surgical History History of bladder surgery Social History Social History Household Members: Spouse Housing: Apartment Do you presently have visiting nurse or other home services: Yes Smoking Status: Former smoker Tobacco Type: Cigarette Packs Per Day: 1 Cigarettes Per Day: 20.0 Years Smoked: 20 Smoked in Last 30 Days: No Patient Interested in Nicotine Replacement: No Patient Given Instructions on How to Stop Smoking: No Second Hand Smoke Exposure: No Use of substances other than those prescribed or required for medical reasons: No Substance Use Type: Marijuana Currently Displaying Signs/Symptoms of Drug Intoxication Withdrawal: No Spiritual Healthcare Practices: none [facility] Practices: none Cultural Healthcare Practices: none Advance Directives: Yes Advance Directives on File: Yes Advance Directives Date on File: 11/27/20 Do you have thoughts of harming others: None Do you have a plan to hurt others: No Plan Recently lost weight without trying: Yes How much weight loss: 2-13 pounds Eating poorly because of decreased appetite: Yes Nutrition screen score: 4 Nutrition Risks: Emaciation/Cachexia Poor oral hygiene: No service: No Current occupational status: retired and disabled Sexual orientation: Straight/Heterosexual Meds Allergies Allergy/AdvReac Type Severity Reaction Status Date / Time Sulfa (Sulfonamide Allergy Unknown UNKNOWN Verified 12/01/20 09:47 Antibiotics) [SULFA (SULFONAMIDE ANTIBIOTICS)] zoster vaccine live Allergy Hives Verified 12/01/20 09:47 Active Medications: Current Medications Generic Name Dose Route Start Last Admin Trade Name Freq PRN Reason Stop Dose Admin Acetaminophen 650 mg 01/09/21 15:51 01/11/21 16:46 Acetaminophen 325 Mg Tablet G-TUBE 650 mg Q4H PRN Administration Pain, Mild (Pain Scale 1-3) Al Hydroxide/Mg Hydroxide 30 ml 01/08/21 15:46 Magnesium Hydrox/Alum Hydrox 30 Ml Oral.Susp G-TUBE Q4H PRN Dyspepsia Benzocaine 1 lozenge 12/31/20 17:25 01/13/21 06:43 Throat Lozenge, Medicated Lozenge MUCOUS MEM 1 lozenge Q2H PRN Administration Sore Throat Budesonide 2 puff 12/31/20 20:00 01/13/21 08:29 Budesonide 180 Mcg Aer.Pow.Ba INHALE 2 puff RBID DOMINICK Administration Clotrimazole 1 appl 01/06/21 21:00 01/13/21 11:02 Clotrimazole 1 % Cream 15 Gm Tube TOPICAL 1 appl BID DOMINICK Administration Protocol Dexamethasone 1 mg 01/09/21 09:00 01/13/21 08:25 Dexamethasone 0.5 Mg Tablet G-TUBE 1 mg DAILY DOMINICK Administration Famotidine 20 mg 01/09/21 09:00 01/13/21 08:26 Famotidine 20 Mg Tablet G-TUBE 20 mg DAILY DOMINICK Administration Lorazepam 0.5 mg 01/08/21 17:02 01/13/21 08:26 Lorazepam 0.5 Mg Tablet G-TUBE 0.5 mg Q6H PRN Administration anxiety Mirtazapine 15 mg 01/08/21 21:00 01/12/21 20:17 Mirtazapine 7.5 Mg Tablet G-TUBE 15 mg BEDTIME DOMINICK Administration Patient Own 1 each 01/08/21 21:00 Medication ( G-TUBE Nintedanib 150) BID DOMINICK Omeprazole 40 mg 01/08/21 16:30 01/13/21 05:20 Omeprazole 20 Mg/10 Ml Susp.Recon G-TUBE 40 mg BID@0630,1630 DOMINICK Administration Ondansetron HCl 4 mg 01/08/21 12:53 Ondansetron Hcl 4 Mg/2 Ml Vial IVPUSH ONCE PRN Nausea and Vomiting Oxycodone HCl 2.5 mg 01/10/21 09:39 01/13/21 11:04 Oxycodone Hcl Immed Release 5 Mg Tablet PO 2.5 mg Q4H PRN Administration moderate pain Prochlorperazine Edisylate 5 mg 12/31/20 23:21 01/06/21 09:42 Prochlorperazine Edisylate 10 Mg/2 Ml Vial IM 5 mg Q6H PRN Administration Nausea and Vomiting Quetiapine Fumarate 12.5 mg 01/08/21 21:00 01/12/21 20:16 Quetiapine Fumarate 25 Mg Tablet G-TUBE 12.5 mg BEDTIME DOMINICK Administration Thiamine HCl 100 mg 01/09/21 09:00 01/13/21 08:25 Thiamine Hcl 100 Mg Tablet G-TUBE 100 mg DAILY DOMINICK Administration Home Medications Medication Instructions Recorded Confirmed Last Taken Type Latuda 1 tab PO DAILY 11/25/20 12/31/20 11/25/20 History Ofev 150 mg PO BID 11/25/20 12/31/20 11/25/20 History docusate sodium [Stool Softener] 1 cap PO BID PRN 11/25/20 12/31/20 11/25/20 History lorazepam 1 tab PO BID PRN 11/25/20 12/31/20 11/25/20 History mirtazapine 1 tab PO BEDTIME 11/25/20 12/31/20 11/24/20 History ondansetron 1 tab PO Q8H PRN 11/25/20 12/31/20 Unknown History quetiapine 37.5 mg PO BEDTIME 11/25/20 12/31/20 11/24/20 History Physical Exam Vital Signs: Vital Signs: Last Vital Signs Temp 97.9 F 01/13/21 06:14 Pulse 73 01/13/21 06:14 Resp 18 01/13/21 06:14 BP 114/70 01/13/21 06:14 Pulse Ox 94 01/13/21 06:14 Body Mass Index 18.1 Const: General: ill appearing and lethargic Orientation/consciousness: lethargic Neck: Neck: Yes normal visual inspection, Yes full ROM and Yes no lymphadenopathy Chest: Chest palpation & inspection: normal inspection of the chest Resp: Auscultation: crackles and diminished lung sounds Cardio: Rate: regular rate Rhythm: regular rhythm Heart sounds: S1 normal heart sound present and S2 normal heart sound present GI: Palpation (GI): Soft to palpation and nontender Auscultation: normal bowel sounds Skin: General skin exam: rashes and/or lesions noted Results Laboratory Findings CBC and BMP: 01/10/21 09:28 01/13/21 07:56 ABG, PT/INR, D-dimer: PT/INR, D-dimer PT 13.5 SEC (10.8-13.0) H 01/08/21 07:46 INR 1.1 (0.9-1.1) 01/08/21 07:46 D-Dimer 994 NG/ML 01/10/21 09:26 Abnormal lab findings: Abnormal Labs 01/01/21 01/05/21 01/08/21 14:34 15:05 07:46 WBC RBC 3.17 L Hgb 10.0 L Hct 29.4 L Immature Gran % (Auto) Neut % (Auto) Lymph % (Auto) [place] # (Auto) Abs Immat Gran (auto) Absolute Neuts (auto) PT ABG pH at Pt Temp ABG pH (Temp Correct) ABG HCO3 Sodium 132 L 131 L Potassium 5.2 H Chloride Carbon Dioxide Anion Gap BUN 25 H Random Glucose 145 H D Calcium Alkaline Phosphatase 137 H D Total Protein Albumin 3.1 L D 01/08/21 01/09/21 01/10/21 07:46 07:12 09:26 WBC 18.1 H RBC 3.44 L Hgb 10.9 L Hct 31.8 L Immature Gran % (Auto) Neut % (Auto) Lymph % (Auto) [place] # (Auto) Abs Immat Gran (auto) Absolute Neuts (auto) PT 13.5 H ABG pH at Pt Temp ABG pH (Temp Correct) ABG HCO3 Sodium 130 L Potassium Chloride 95 L Carbon Dioxide 31 H Anion Gap 8 L BUN 18 H Random Glucose 151 H Calcium 8.3 L D Alkaline Phosphatase Total Protein Albumin 01/10/21 01/10/21 01/13/21 09:28 09:49 07:56 WBC 22.2 H RBC 3.38 L Hgb 10.8 L Hct 31.2 L Immature Gran % (Auto) 0.5 H Neut % (Auto) 84.9 H Lymph % (Auto) 7.4 L [place] # (Auto) 1.6 H Abs Immat Gran (auto) 0.12 H Absolute Neuts (auto) 18.8 H PT ABG pH at Pt Temp 7.49 H ABG pH (Temp Correct) 7.49 H ABG HCO3 31 H Sodium 133 L Potassium Chloride 95 L Carbon Dioxide 33 H Anion Gap 10 L BUN 18 H Random Glucose 132 H Calcium Alkaline Phosphatase 150 H Total Protein 5.9 L Albumin 2.5 L Microbiology: Microbiology 01/10/21 09:26 Blood - Venous Blood Culture - Preliminary No growth after 48 hours. 01/10/21 09:26 Blood - Venous Blood Culture - Preliminary No growth after 48 hours. Assessment and Plan (1) Dysphagia: Qualifiers: Dysphagia type: unspecified Qualified Code(s): R13.10 - Dysphagia, unspecified Status: Acute (2) Pulmonary fibrosis: Problem details: Pt developed a temp of 100.8. BP 76/48 CAT with a new area of left lower lobe consolidation Status: Acute (3) Chronic respiratory failure: Qualifiers: Respiratory failure complication: hypoxia Qualified Code(s): J96.11 - Chronic respiratory failure with hypoxia Status: Acute -continue Decadron via PEG -start doxycycline times 10 days to treat possible aspiration event now with the elevated white count -nasal cannula oxygen to maintain a pulse ox above 90% -head of bed elevated to minimize micro aspirations that is a well established reason for IPF exacerbations -the patient is able to proceed with the ECT the standing that he has high risk for worsening hypoxia
--- NOTE | 2021-01-13 15:57 | MHC.CLN ---
f/u PT RECEIVING JEVITY AT MAX GOAL RATE 60CC/HR WITH 120CC FREE WATER FLUSHES Q SHIFT TO PROVIDE 1526KCALS (29KCALS/KG), 63G PROTEIN (1.2G/KG), 1562CC TOTAL WATER FROM FORMULA AND FLUSHES (30CC/KG) MONITOR TOLERANCE, RESIDUALS AND LYTES NA, MG, PHOS AND K+ STRICT WEEKLY WEIGHTS
[2021-01-13 16:35] VITALS: BP 137/77; PULSE 72; TEMP 36.4; O2SAT 93
[2021-01-13 20:00] VITALS: BP 91/55; PULSE 77; RESP 26; TEMP 36.6; O2SAT 92
[2021-01-13] MEDS: Mirtazapine 7.5 MG TABLET 15 MG G-TUBE (20:57)
[2021-01-13] MEDS: QUEtiapine Fumarate 25 MG TABLET 12.5 MG G-TUBE (21:00)
--- NOTE | 2021-01-13 21:33 | HO.PSYCHPN ---
Subjective Subjective Date of Service: 01/13/21 Reason For Visit: severe depression Subjective Notes: Conditional Voluntary Interim History: Patient remains depressed flat constricted hopeless helpless. PEG feedings continue seen with his and daughter. Patient was seen by Pulmonary Medication Compliance: Yes Attending Groups: No Mental Status Exam Mental Status Exam Patient Appearance: Fatigued Patient Orientation: Person, Place, Time and Situation Level of Consciousness: Awake and Lethargic Patient Behavior: Appropriate, Guarded and Cooperative Mood Description: Calm, Withdrawn, Depressed and Anxious Affect Description: Constricted and Depressed Patient Cognition Impaired: No Ability to Follow Directions: Good Speech Pattern: Clear and Monotone Memory Description: Intact Hallucinations: None Delusions: Not Present Thought Process: Rumination and Goal Oriented Thought Content: positive for Anthony, positive for Circumstantial, positive for Poverty of Content, positive for Slowed Thinking, negative for Suicidal Ideation and positive for Homicidal Ideation Depressive Symptoms: Increased Anxiety and Increased Irritability Judgement: Fair Diagnostics Vital Signs (24Hr): Vital Signs - 24 hr 01/13/21 06:14 01/13/21 12:00 Temperature 97.9 F 98.3 F Pulse Rate 73 78 Respiratory Rate 18 16 Blood Pressure 114/70 140/82 H Pulse Oximetry 94 94 Body Mass Index 18.1 Labs Results: 01/10/21 09:28 01/13/21 07:56 Labs: Laboratory Results - last 48 hr 01/13/21 07:56 Sodium 133 L Potassium 4.6 Chloride 95 L Carbon Dioxide 33 H Anion Gap 10 L BUN 18 H Creatinine 0.78 Estim Creat Clear Calc 57.2 Estimated GFR > 60 Random Glucose 132 H Calcium 8.5 Total Bilirubin 0.4 AST 27 ALT 20 Alkaline Phosphatase 150 H Total Protein 5.9 L Albumin 2.5 L Imaging Radiology Impressions: ITS Impressions Modified Barium Swallow 01/07/21 14:15 IMPRESSION: Laryngeal penetration and occasional aspiration as described above. Please refer to speech pathology report for details. Chest X-Ray 01/10/21 09:11 IMPRESSION: Severe chronic interstitial lung disease. No evidence of acute superimposed pneumonitis. Medications Medications Current Medications Generic Name Dose Route Start Last Admin Trade Name Freq PRN Reason Stop Dose Admin Acetaminophen 650 mg 01/09/21 15:51 01/11/21 16:46 Acetaminophen 325 Mg Tablet G-TUBE 650 mg Q4H PRN Administration Pain, Mild (Pain Scale 1-3) Al Hydroxide/Mg Hydroxide 30 ml 01/08/21 15:46 Magnesium Hydrox/Alum Hydrox 30 Ml Oral.Susp G-TUBE Q4H PRN Dyspepsia Amphetamine/Dextroamphetamine 5 mg 01/14/21 09:00 Amphetamine Mixed Salts 10 Mg Tablet PO DAILY DOMINICK Benzocaine 1 lozenge 12/31/20 17:25 01/13/21 06:43 Throat Lozenge, Medicated Lozenge MUCOUS MEM 1 lozenge Q2H PRN Administration Sore Throat Budesonide 2 puff 12/31/20 20:00 01/13/21 20:57 Budesonide 180 Mcg Aer.Pow.Ba INHALE 2 puff RBID DOMINICK Administration Clotrimazole 1 appl 01/06/21 21:00 01/13/21 20:57 Clotrimazole 1 % Cream 15 Gm Tube TOPICAL 1 appl BID DOMINICK Administration Protocol Dexamethasone 1 mg 01/09/21 09:00 01/13/21 08:25 Dexamethasone 0.5 Mg Tablet G-TUBE 1 mg DAILY DOMINICK Administration Doxycycline Hyclate 100 mg 01/13/21 13:15 01/13/21 14:55 Doxycycline Hyclate 100 Mg Tablet PO 01/21/21 13:02 100 mg Q12H DOMINICK Administration Famotidine 20 mg 01/09/21 09:00 01/13/21 08:26 Famotidine 20 Mg Tablet G-TUBE 20 mg DAILY DOMINICK Administration Lorazepam 0.5 mg 01/08/21 17:02 01/13/21 14:55 Lorazepam 0.5 Mg Tablet G-TUBE 0.5 mg Q6H PRN Administration anxiety Mirtazapine 7.5 mg 01/14/21 21:00 Mirtazapine 7.5 Mg Tablet G-TUBE BEDTIME [facility] Patient Own 1 each 01/08/21 21:00 Medication ( G-TUBE Nintedanib 150) BID DOMINICK Omeprazole 40 mg 01/08/21 16:30 01/13/21 16:58 Omeprazole 20 Mg/10 Ml Susp.Recon G-TUBE 40 mg BID@0630,1630 DOMINICK Administration Ondansetron HCl 4 mg 01/08/21 12:53 Ondansetron Hcl 4 Mg/2 Ml Vial IVPUSH ONCE PRN Nausea and Vomiting Oxycodone HCl 2.5 mg 01/10/21 09:39 01/13/21 21:05 Oxycodone Hcl Immed Release 5 Mg Tablet PO 2.5 mg Q4H PRN Administration moderate pain Prochlorperazine Edisylate 5 mg 12/31/20 23:21 01/06/21 09:42 Prochlorperazine Edisylate 10 Mg/2 Ml Vial IM 5 mg Q6H PRN Administration Nausea and Vomiting Quetiapine Fumarate 12.5 mg 01/08/21 21:00 01/13/21 21:00 Quetiapine Fumarate 25 Mg Tablet G-TUBE 12.5 mg BEDTIME DOMINICK Administration Thiamine HCl 100 mg 01/09/21 09:00 01/13/21 08:25 Thiamine Hcl 100 Mg Tablet G-TUBE 100 mg DAILY DOMINICK Administration Allergies Allergies Allergy/AdvReac Type Severity Reaction Status Date / Time Sulfa (Sulfonamide Allergy Unknown UNKNOWN Verified 12/01/20 09:47 Antibiotics) [SULFA (SULFONAMIDE ANTIBIOTICS)] zoster vaccine live Allergy Hives Verified 12/01/20 09:47 Assessment & Plan Assessment & Plan (1) Dysphagia: Qualifiers: Dysphagia type: unspecified Qualified Code(s): R13.10 - Dysphagia, unspecified Status: Acute Code(s): R13.10 - Dysphagia, unspecified (2) Pulmonary fibrosis: Status: Acute Code(s): J84.10 - Pulmonary fibrosis, unspecified (3) Chronic respiratory failure: Qualifiers: Respiratory failure complication: hypoxia Qualified Code(s): J96.11 - Chronic respiratory failure with hypoxia Status: Acute Code(s): J96.10 - Chronic respiratory failure, unspecified whether with hypoxia or hypercapnia Assessment and Plan: -continue Decadron via PEG -start doxycycline times 10 days to treat possible aspiration event now with the elevated white count -nasal cannula oxygen to maintain a pulse ox above 90% -head of bed elevated to minimize micro aspirations that is a well established reason for IPF exacerbations -the patient is able to proceed with the ECT the standing that he has high risk for worsening hypoxia Above reviewed from pulmonary Regarding severe depression consider ECT continue grief eating Adderall 5 mg started EKG unremarkable taper mirtazapine has not been helpful balance risks benefits to ECT given patient's history of micro aspiration Greater than 50% of the session was spent on counseling and/or coordination of care Reason for contiued inpatient stay Substantial Risk for: rapid decompensation and med/psych decompensation
[2021-01-14 06:10] VITALS: BP 153/74; PULSE 68; RESP 24; TEMP 36.2; O2SAT 94
[2021-01-14 08:13] VITALS: BP 134/73; PULSE 73; RESP 30; TEMP 36.8; O2SAT 94
[2021-01-14] MEDS: Amphetamine Mixed Salts 10 MG TABLET 5 MG PO (09:00)
[2021-01-14] MEDS: Acetaminophen 325 MG TABLET 650 MG G-TUBE (09:00)
[2021-01-14] MEDS: Famotidine 20 MG TABLET G-TUBE (09:01)
[2021-01-14] MEDS: Thiamine HCL 100 MG TABLET G-TUBE (09:01)
[2021-01-14] MEDS: Clotrimazole 1 % Cream 15 GM TUBE 1 APPL TOPICAL ×2 (09:02→21:15)
[2021-01-14] MEDS: Budesonide 180 MCG AER.POW.BA 2 PUFF INHALE ×2 (09:02→21:15)
[2021-01-14 12:06] VITALS: BP 149/90; PULSE 95; RESP 40; O2SAT 97
[2021-01-14 17:00] VITALS: BP 124/81; PULSE 80; RESP 22; TEMP 36.3; O2SAT 93
[2021-01-14] MEDS: oxyCODONE HCl Immed Release 5 MG TABLET 2.5 MG PO (17:06)
[2021-01-14] MEDS: LORazepam 0.5 MG TABLET G-TUBE (17:38)
[2021-01-14] MEDS: Mirtazapine 7.5 MG TABLET G-TUBE (21:03)
[2021-01-14] MEDS: QUEtiapine Fumarate 25 MG TABLET 12.5 MG G-TUBE (21:04)
[2021-01-14 22:00] VITALS: BP 128/79; PULSE 76; RESP 24; TEMP 36.8; O2SAT 92
--- NOTE | 2021-01-14 22:00 | HO.PSYCHPN ---
Subjective Subjective Date of Service: 01/14/21 Reason For Visit: severe depression Subjective Notes: Conditional Voluntary Interim History: Patient with some improvement today after Adderall patient has been on doxycycline elevated CBC Medication Compliance: Yes Mental Status Exam Mental Status Exam Patient Orientation: Person, Place, Time and Situation Level of Consciousness: Awake and Lethargic Patient Behavior: Appropriate, Guarded and Cooperative Mood Description: Calm, Withdrawn, Depressed and Anxious Affect Description: Constricted and Depressed Patient Cognition Impaired: No Ability to Follow Directions: Good Speech Pattern: Clear and Monotone Memory Description: Intact Hallucinations: None Delusions: Not Present Thought Process: Rumination and Goal Oriented Thought Content: positive for [place], positive for Circumstantial, positive for Poverty of Content, positive for Slowed Thinking, negative for Suicidal Ideation and positive for Homicidal Ideation Depressive Symptoms: Increased Anxiety and Increased Irritability Judgement: Fair Diagnostics Vital Signs (24Hr): Vital Signs - 24 hr 01/14/21 06:10 01/14/21 08:13 01/14/21 12:06 Temperature 97.2 F 98.3 F Pulse Rate 68 73 95 Respiratory Rate 24 H 30 H 40 H Blood Pressure 153/74 H 134/73 149/90 H Pulse Oximetry 94 94 97 Body Mass Index 18.1 Labs Results: 01/10/21 09:28 01/13/21 07:56 Labs: Laboratory Results - last 48 hr 01/13/21 07:56 Sodium 133 L Potassium 4.6 Chloride 95 L Carbon Dioxide 33 H Anion Gap 10 L BUN 18 H Creatinine 0.78 Estim Creat Clear Calc 57.2 Estimated GFR > 60 Random Glucose 132 H Calcium 8.5 Total Bilirubin 0.4 AST 27 ALT 20 Alkaline Phosphatase 150 H Total Protein 5.9 L Albumin 2.5 L Imaging Radiology Impressions: ITS Impressions Modified Barium Swallow 01/07/21 14:15 IMPRESSION: Laryngeal penetration and occasional aspiration as described above. Please refer to speech pathology report for details. Chest X-Ray 01/10/21 09:11 IMPRESSION: Severe chronic interstitial lung disease. No evidence of acute superimposed pneumonitis. Medications Medications Current Medications Generic Name Dose Route Start Last Admin Trade Name Freq PRN Reason Stop Dose Admin Acetaminophen 650 mg 01/09/21 15:51 01/14/21 09:00 Acetaminophen 325 Mg Tablet G-TUBE 650 mg Q4H PRN Administration Pain, Mild (Pain Scale 1-3) Al Hydroxide/Mg Hydroxide 30 ml 01/08/21 15:46 Magnesium Hydrox/Alum Hydrox 30 Ml Oral.Susp G-TUBE Q4H PRN Dyspepsia Amphetamine/Dextroamphetamine 5 mg 01/14/21 09:00 01/14/21 09:00 Amphetamine Mixed Salts 10 Mg Tablet PO 5 mg DAILY DOMINICK Administration Benzocaine 1 lozenge 12/31/20 17:25 01/13/21 06:43 Throat Lozenge, Medicated Lozenge MUCOUS MEM 1 lozenge Q2H PRN Administration Sore Throat Budesonide 2 puff 12/31/20 20:00 01/14/21 21:15 Budesonide 180 Mcg Aer.Pow.Ba INHALE 2 puff RBID DOMINICK Administration Clotrimazole 1 appl 01/06/21 21:00 01/14/21 21:15 Clotrimazole 1 % Cream 15 Gm Tube TOPICAL 1 appl BID DOMINICK Administration Protocol Dexamethasone 1 mg 01/09/21 09:00 01/14/21 09:01 Dexamethasone 0.5 Mg Tablet G-TUBE 1 mg DAILY DOMINICK Administration Doxycycline Hyclate 100 mg 01/14/21 08:00 01/14/21 21:03 Doxycycline Hyclate 100 Mg Tablet PO 100 mg Q12H DOMINICK Administration Famotidine 20 mg 01/09/21 09:00 01/14/21 09:01 Famotidine 20 Mg Tablet G-TUBE 20 mg DAILY DOMINICK Administration Lorazepam 0.5 mg 01/08/21 17:02 01/14/21 17:38 Lorazepam 0.5 Mg Tablet G-TUBE 0.5 mg Q6H PRN Administration anxiety Mirtazapine 7.5 mg 01/14/21 21:00 01/14/21 21:03 Mirtazapine 7.5 Mg Tablet G-TUBE 7.5 mg BEDTIME DOMINICK Administration Patient Own 1 each 01/08/21 21:00 Medication ( G-TUBE Nintedanib 150) BID DOMINICK Omeprazole 40 mg 01/08/21 16:30 01/14/21 17:06 Omeprazole 20 Mg/10 Ml Susp.Recon G-TUBE 40 mg BID@0630,1630 DOMINICK Administration Ondansetron HCl 4 mg 01/08/21 12:53 Ondansetron Hcl 4 Mg/2 Ml Vial IVPUSH ONCE PRN Nausea and Vomiting Oxycodone HCl 2.5 mg 01/10/21 09:39 01/14/21 17:06 Oxycodone Hcl Immed Release 5 Mg Tablet PO 2.5 mg Q4H PRN Administration moderate pain Prochlorperazine Edisylate 5 mg 12/31/20 23:21 01/06/21 09:42 Prochlorperazine Edisylate 10 Mg/2 Ml Vial IM 5 mg Q6H PRN Administration Nausea and Vomiting Quetiapine Fumarate 12.5 mg 01/08/21 21:00 01/14/21 21:04 Quetiapine Fumarate 25 Mg Tablet G-TUBE 12.5 mg BEDTIME DOMINICK Administration Thiamine HCl 100 mg 01/09/21 09:00 01/14/21 09:01 Thiamine Hcl 100 Mg Tablet G-TUBE 100 mg DAILY DOMINICK Administration Allergies Allergies Allergy/AdvReac Type Severity Reaction Status Date / Time Sulfa (Sulfonamide Allergy Unknown UNKNOWN Verified 12/01/20 09:47 Antibiotics) [SULFA (SULFONAMIDE ANTIBIOTICS)] zoster vaccine live Allergy Hives Verified 12/01/20 09:47 Assessment & Plan Assessment & Plan (1) Dysphagia: Qualifiers: Dysphagia type: unspecified Qualified Code(s): R13.10 - Dysphagia, unspecified Status: Acute Code(s): R13.10 - Dysphagia, unspecified (2) Pulmonary fibrosis: Status: Acute Code(s): J84.10 - Pulmonary fibrosis, unspecified (3) Chronic respiratory failure: Qualifiers: Respiratory failure complication: hypoxia Qualified Code(s): J96.11 - Chronic respiratory failure with hypoxia Status: Acute Code(s): J96.10 - Chronic respiratory failure, unspecified whether with hypoxia or hypercapnia Assessment and Plan: -continue Decadron via PEG -start doxycycline times 10 days to treat possible aspiration event now with the elevated white count -nasal cannula oxygen to maintain a pulse ox above 90% -head of bed elevated to minimize micro aspirations that is a well established reason for IPF exacerbations -the patient is able to proceed with the ECT the standing that he has high risk for worsening hypoxia Above reviewed from pulmonary Regarding severe depression consider ECT continue grief eating Adderall 5 mg started EKG unremarkable taper mirtazapine has not been helpful balance risks benefits to ECT given patient's history of micro aspiration continue Adderall Improvement noted increase Adderall Greater than 50% of the session was spent on counseling and/or coordination of care Reason for contiued inpatient stay Substantial Risk for: rapid decompensation and med/psych decompensation
--- NOTE | 2021-01-14 23:42 | PC.NURSE ---
Pt has a POM, Nintedanib / Ofev, 150mg BID that was d/c'd after pt went to meds via G-tube from PO. Med is intended to slow progression of Pulmonary Fibrosis. Med was initally ordered via G-tube but was d/c'd. Was hoping med could be reviewed and ordered if possible. Med does not appear to be extended release formulation.
[2021-01-15] VITALS: BP 155/85; PULSE 72; RESP 28; O2SAT 96
[2021-01-15] MEDS: LORazepam 0.5 MG TABLET G-TUBE ×3 (00:06→13:53)
[2021-01-15 06:25] VITALS: BP 139/77; PULSE 75; RESP 28; TEMP 36.7; O2SAT 96
--- NOTE | 2021-01-15 08:12 | P.CDIC_ITS ---
CDI Concurrent Query Service Date: 01/19/21 Documentation Clarification: Please clarify if you are treating a proba ble/suspected/likely or confirmed: Mild protein calorie malnutrition Moderate protein calorie malnutrition Severe protein calorie malnutrition Please specify if known or undetermined Provider Response: Anemia PLEASE DO NOT DELETE/MODIFY EXISTING CONTENT Additional information is needed in order to code to the highest accuracy and appropriate Severity of Illness (SOI). Please clarify the information noted below in your progress notes and discharge summary. Risk Factors/Clinical Indicators/Treatments Nutrition assessment 01/06 - pt is severely malnourished in context of acute illness/injury. BMI 17.9 Moderately decreased subcutaneous fat and muscle mass and 18% weight loss, poor intake. Ensure pudding, GI consult, possible PEG tube placement. CDS: Mary Leong CCS, [facility]IS Contact Number: [phone] Please Review the information above and exercise your independent professional judgment in responding to the query. If you concur, pleas document in the PROGRESS NOTES and DISCHARGE SUMMARY. If you do not agree with the query, please document in the query above. THIS QUERY IS PART OF THE PERMANENT MEDICAL RECORD
[2021-01-15 08:32] VITALS: BP 152/80; PULSE 85; RESP 16; TEMP 36.9; O2SAT 93
[2021-01-15] MEDS: oxyCODONE HCl Immed Release 5 MG TABLET 2.5 MG PO (08:45)
[2021-01-15] MEDS: Thiamine HCL 100 MG TABLET G-TUBE (08:46)
[2021-01-15] MEDS: Famotidine 20 MG TABLET G-TUBE (08:46)
[2021-01-15] MEDS: Budesonide 180 MCG AER.POW.BA 2 PUFF INHALE ×2 (09:58→20:14)
[2021-01-15] MEDS: Clotrimazole 1 % Cream 15 GM TUBE 1 APPL TOPICAL ×2 (10:06→20:14)
[2021-01-15 13:10] VITALS: BP 132/86; PULSE 83; RESP 20; O2SAT 95
--- NOTE | 2021-01-15 13:40 | HO.PSYCHPN ---
Subjective Subjective Date of Service: 01/15/21 Reason For Visit: severe depression Subjective Notes: Conditional Voluntary Interim History: Patient seen with his . Question of pharyngeal thrush possibly some improvement on Adderall. Some improved energy and alertness. Remains severely depressed constricted Medication Compliance: Yes Attending Groups: No Mental Status Exam Mental Status Exam Patient Orientation: Person, Place, Time and Situation Level of Consciousness: Awake and Lethargic Patient Behavior: Guarded, Cooperative and Fatigued Mood Description: Calm, Withdrawn, Depressed, Anxious and Sad Affect Description: Constricted, Depressed, Blunted and Sad Patient Cognition Impaired: No Ability to Follow Directions: Good Speech Pattern: Clear and Monotone Memory Description: Intact Hallucinations: None Delusions: Not Present Thought Process: Rumination and Goal Oriented Thought Content: positive for [place], positive for Circumstantial, positive for Poverty of Content, positive for Slowed Thinking, negative for Suicidal Ideation and positive for Homicidal Ideation Depressive Symptoms: Increased Anxiety, Increased Irritability, Increased Fatigue and Loss of Energy Abnormal Motor Activity Signs and Symptoms: Psychomotor Retardation Judgement: Fair Diagnostics Vital Signs (24Hr): Vital Signs - 24 hr 01/14/21 17:00 01/14/21 22:00 01/15/21 00:00 Temperature 97.4 F 98.2 F Pulse Rate 80 76 72 Respiratory Rate 22 H 24 H 28 H Blood Pressure 124/81 128/79 155/85 H Pulse Oximetry 93 92 96 01/15/21 06:25 01/15/21 08:32 Temperature 98.1 F 98.5 F Pulse Rate 75 85 Respiratory Rate 28 H 16 Blood Pressure 139/77 152/80 H Pulse Oximetry 96 93 Body Mass Index 18.1 Labs Results: 01/15/21 14:51 01/15/21 14:51 Imaging Radiology Impressions: ITS Impressions Modified Barium Swallow 01/07/21 14:15 IMPRESSION: Laryngeal penetration and occasional aspiration as described above. Please refer to speech pathology report for details. Chest X-Ray 01/10/21 09:11 IMPRESSION: Severe chronic interstitial lung disease. No evidence of acute superimposed pneumonitis. Medications Medications Current Medications Generic Name Dose Route Start Last Admin Trade Name Freq PRN Reason Stop Dose Admin Acetaminophen 650 mg 01/09/21 15:51 01/14/21 09:00 Acetaminophen 325 Mg Tablet G-TUBE 650 mg Q4H PRN Administration Pain, Mild (Pain Scale 1-3) Al Hydroxide/Mg Hydroxide 30 ml 01/08/21 15:46 Magnesium Hydrox/Alum Hydrox 30 Ml Oral.Susp G-TUBE Q4H PRN Dyspepsia Amphetamine/Dextroamphetamine 2.5 mg 01/15/21 13:00 Amphetamine Mixed Salts 10 Mg Tablet G-TUBE DAILY@1300 DOMINICK Benzocaine 1 lozenge 12/31/20 17:25 01/13/21 06:43 Throat Lozenge, Medicated Lozenge MUCOUS MEM 1 lozenge Q2H PRN Administration Sore Throat Budesonide 2 puff 12/31/20 20:00 01/15/21 09:58 Budesonide 180 Mcg Aer.Pow.Ba INHALE 2 puff RBID DOMINICK Administration Clotrimazole 1 appl 01/06/21 21:00 01/15/21 10:06 Clotrimazole 1 % Cream 15 Gm Tube TOPICAL 1 appl BID DOMINICK Administration Protocol Dexamethasone 1 mg 01/09/21 09:00 01/15/21 08:46 Dexamethasone 0.5 Mg Tablet G-TUBE 1 mg DAILY DOMINICK Administration Doxycycline Hyclate 100 mg 01/14/21 08:00 01/15/21 08:46 Doxycycline Hyclate 100 Mg Tablet PO 100 mg Q12H DOMINICK Administration Famotidine 20 mg 01/09/21 09:00 01/15/21 08:46 Famotidine 20 Mg Tablet G-TUBE 20 mg DAILY DOMINICK Administration Lorazepam 0.5 mg 01/08/21 17:02 01/15/21 08:46 Lorazepam 0.5 Mg Tablet G-TUBE 0.5 mg Q6H PRN Administration anxiety Mirtazapine 7.5 mg 01/14/21 21:00 01/14/21 21:03 Mirtazapine 7.5 Mg Tablet G-TUBE 7.5 mg BEDTIME DOMINICK Administration Patient Own 1 each 01/08/21 21:00 Medication ( G-TUBE Nintedanib 150) BID DOMINICK Omeprazole 40 mg 01/08/21 16:30 01/15/21 06:06 Omeprazole 20 Mg/10 Ml Susp.Recon G-TUBE 40 mg BID@0630,1630 DOMINICK Administration Ondansetron HCl 4 mg 01/08/21 12:53 Ondansetron Hcl 4 Mg/2 Ml Vial IVPUSH ONCE PRN Nausea and Vomiting Prochlorperazine Edisylate 5 mg 12/31/20 23:21 01/06/21 09:42 Prochlorperazine Edisylate 10 Mg/2 Ml Vial IM 5 mg Q6H PRN Administration Nausea and Vomiting Quetiapine Fumarate 12.5 mg 01/08/21 21:00 01/14/21 21:04 Quetiapine Fumarate 25 Mg Tablet G-TUBE 12.5 mg BEDTIME DOMINICK Administration Thiamine HCl 100 mg 01/09/21 09:00 01/15/21 08:46 Thiamine Hcl 100 Mg Tablet G-TUBE 100 mg DAILY DOMINICK Administration Allergies Allergies Allergy/AdvReac Type Severity Reaction Status Date / Time Sulfa (Sulfonamide Allergy Unknown UNKNOWN Verified 12/01/20 09:47 Antibiotics) [SULFA (SULFONAMIDE ANTIBIOTICS)] zoster vaccine live Allergy Hives Verified 12/01/20 09:47 Assessment & Plan Assessment & Plan (1) Dysphagia: Qualifiers: Dysphagia type: unspecified Qualified Code(s): R13.10 - Dysphagia, unspecified Status: Acute Code(s): R13.10 - Dysphagia, unspecified (2) Pulmonary fibrosis: Status: Acute Code(s): J84.10 - Pulmonary fibrosis, unspecified (3) Chronic respiratory failure: Qualifiers: Respiratory failure complication: hypoxia Qualified Code(s): J96.11 - Chronic respiratory failure with hypoxia Status: Acute Code(s): J96.10 - Chronic respiratory failure, unspecified whether with hypoxia or hypercapnia (4) Severe malnutrition: Status: Acute Code(s): E43 - Unspecified severe protein-calorie malnutrition Assessment and Plan: Protein calorie malnutrition Continue PEG Pulmonary fibrosis aspiration continue NPO continue doxycycline and check CBC Hyponatremia check sodium Bipolar depression Adderall start vilazodone Greater than 50% of the session was spent on counseling and/or coordination of care Reason for contiued inpatient stay Substantial Risk for: inability to function, rapid decompensation and med/psych decompensation
[2021-01-15] MEDS: Amphetamine Mixed Salts 10 MG TABLET 2.5 MG G-TUBE (13:53)
[2021-01-15 15:11] LABS: MANUAL DIFF FLAG NO
[2021-01-15 15:12] LABS: Basophils Percent Auto 0.2 % (0-2); Eosinophils Absolute Auto 0.1 X10*3/uL (0.0-0.4); Eosinophils Percent Auto 0.4 % (0-4); Hematocrit 31.9 % (42-52); Hemoglobin 10.6 g/dl (14.0-18.0); Imm Gran Abs Auto 0.06 X10*3/uL (0.00-0.03); Imm Gran Pct Auto 0.5 % (0.0-0.4); Lymphocytes Absolute Auto 1.5 X10*3/uL (1.2-4.9); Lymphocytes Percent Auto 13.3 % (20-40); Mean Corpuscular HGB Conc 33.2 g/dl (31.0-36.0); Mean Corpuscular Hemoglobin 31.5 pg (27.0-33.0); Mean Corpuscular Volume 94.7 fL (80-98); Mean Platelet Volume 10.7 fL (9.4-12.4); Monocytes Absolute Auto 0.7 X10*3/uL (0.1-1.2); Monocytes Percent Auto 5.8 % (2-11); Neutrophils Absolute Auto 8.9 X10*3/uL (2.0-8.3); Neutrophils Percent Auto 79.8 % (45-73); Platelet Count 382 X10*3/uL (160-400); Red Blood Count 3.37 X10*6/uL (4.60-5.80); Red Cell Distribution Width 15.5 % (11.0-16.0); White Blood Count 11.2 X10*3/uL (4.8-10.8)
[2021-01-15 15:38] LABS: Anion Gap 11 (12-20); Carbon Dioxide 32 mmol/L (22-29); Chloride 94 mmol/L (96-108); Potassium 5.1 mmol/L (3.3-5.1); Sodium 132 mmol/L (135-145)
[2021-01-15 16:00] VITALS: BP 127/82; PULSE 74; RESP 16; TEMP 36.7; O2SAT 95
[2021-01-15] MEDS: Nystatin Oral Susp 500,000 UNIT/5 ML ORAL.SUSP 400000 UNIT PO ×2 (17:04→20:15)
[2021-01-15 20:00] VITALS: BP 109/70; PULSE 78; RESP 16; TEMP 36.7; O2SAT 96
[2021-01-15] MEDS: Mirtazapine 7.5 MG TABLET G-TUBE (20:15)
[2021-01-15] MEDS: QUEtiapine Fumarate 25 MG TABLET 12.5 MG G-TUBE (20:16)
--- NOTE | 2021-01-16 01:38 | PC.NURSE ---
Residual at this time was less than 20ml
[2021-01-16 07:01] VITALS: BP 159/84; PULSE 92; RESP 28; TEMP 36.4; O2SAT 92
--- NOTE | 2021-01-16 08:42 | P.PNPSI_ITS ---
Subjective Subjective Date of Service: 01/16/21 Reason For Visit: severe depression Interim History: Chart reviewed; case discussed with team. Vitals reviewed: elevated RR; mild htn pt with noticeably with brighter affect, speaking more spontaneaoulsy, clearly and with louder volume. Pt reports his mood is maybe a little better and would like to continue with ECT. Pt expressed hope that he'll able to eat normally again. Later in day, pt agreed to join [facility] and sat on screened porch with peers for some time. Mental Status Exam Mental Status Exam Narrative: Orientation: Person, Place, Time and Situation Level of Consciousness: Awake and alert Patient Behavior: Cooperative Mood Description: little better Affect Description: congruent Patient Cognition Impaired: No Ability to Follow Directions: Good Speech Pattern: Clear Memory Description: Intact Hallucinations: None Delusions: Not Present Thought Process: Goal Oriented Thought Content: on treatment, condition Psychomotor Retardation Judgement: Fair Diagnostics Vital Signs (24Hr): Vital Signs - 24 hr 01/15/21 13:10 01/15/21 16:00 01/15/21 20:00 Temperature 98.1 F 98.0 F Pulse Rate 83 74 78 Respiratory Rate 20 16 16 Blood Pressure 132/86 127/82 109/70 Pulse Oximetry 95 95 96 01/16/21 07:01 Temperature 97.5 F Pulse Rate 92 Respiratory Rate 28 H Blood Pressure 159/84 H Pulse Oximetry 92 Body Mass Index 18.1 Labs Results: 01/15/21 14:51 01/15/21 14:51 Labs: Laboratory Results - last 48 hr 01/15/21 01/15/21 14:51 14:51 WBC 11.2 H RBC 3.37 L Hgb 10.6 L Hct 31.9 L MCV 94.7 MCH 31.5 MCHC 33.2 RDW 15.5 Plt Count 382 MPV 10.7 Immature Gran % (Auto) 0.5 H Neut % (Auto) 79.8 H Lymph % (Auto) 13.3 L [place] % (Auto) 5.8 Eos % (Auto) 0.4 Baso % (Auto) 0.2 Lymph # (Auto) 1.5 [place] # (Auto) 0.7 Eos # (Auto) 0.1 Baso # (Auto) 0.0 Abs Immat Gran (auto) 0.06 H Absolute Neuts (auto) 8.9 H Absolute Nucleated RBC 0.000 Nucleated RBC % (auto) 0.0 Sodium 132 L Potassium 5.1 Chloride 94 L Carbon Dioxide 32 H Anion Gap 11 L Imaging Radiology Impressions: ITS Impressions Modified Barium Swallow 01/07/21 14:15 IMPRESSION: Laryngeal penetration and occasional aspiration as described above. Please refer to speech pathology report for details. Chest X-Ray 01/10/21 09:11 IMPRESSION: Severe chronic interstitial lung disease. No evidence of acute superimposed pneumonitis. Medications Medications Current Medications Generic Name Dose Route Start Last Admin Trade Name Freq PRN Reason Stop Dose Admin Acetaminophen 650 mg 01/09/21 15:51 01/14/21 09:00 Acetaminophen 325 Mg Tablet G-TUBE 650 mg Q4H PRN Administration Pain, Mild (Pain Scale 1-3) Al Hydroxide/Mg Hydroxide 30 ml 01/08/21 15:46 Magnesium Hydrox/Alum Hydrox 30 Ml Oral.Susp G-TUBE Q4H PRN Dyspepsia Amphetamine/Dextroamphetamine 2.5 mg 01/15/21 13:00 01/15/21 13:53 Amphetamine Mixed Salts 10 Mg Tablet G-TUBE 2.5 mg DAILY@1300 DOMINICK Administration Budesonide 2 puff 12/31/20 20:00 01/15/21 20:14 Budesonide 180 Mcg Aer.Pow.Ba INHALE 2 puff RBID DOMINICK Administration Clotrimazole 1 appl 01/06/21 21:00 01/15/21 20:14 Clotrimazole 1 % Cream 15 Gm Tube TOPICAL 1 appl BID DOMINICK Administration Protocol Dexamethasone 1 mg 01/09/21 09:00 01/15/21 08:46 Dexamethasone 0.5 Mg Tablet G-TUBE 1 mg DAILY DOMINICK Administration Doxycycline Hyclate 100 mg 01/14/21 08:00 01/15/21 20:15 Doxycycline Hyclate 100 Mg Tablet PO 100 mg Q12H DOMINICK Administration Famotidine 20 mg 01/09/21 09:00 01/15/21 08:46 Famotidine 20 Mg Tablet G-TUBE 20 mg DAILY DOMINICK Administration Lorazepam 0.5 mg 01/08/21 17:02 01/15/21 08:46 Lorazepam 0.5 Mg Tablet G-TUBE 0.5 mg Q6H PRN Administration anxiety Mirtazapine 7.5 mg 01/14/21 21:00 01/15/21 20:15 Mirtazapine 7.5 Mg Tablet G-TUBE 7.5 mg BEDTIME DOMINICK Administration Patient Own 1 each 01/08/21 21:00 Medication ( G-TUBE Nintedanib 150) BID DOMINICK Nystatin 400,000 unit 01/15/21 17:00 01/15/21 20:15 Nystatin Oral Susp 500,000 Unit/5 Ml Oral.Susp PO 400,000 unit QID DOMINICK Administration Protocol Omeprazole 40 mg 01/08/21 16:30 01/16/21 05:41 Omeprazole 20 Mg/10 Ml Susp.Recon G-TUBE 40 mg BID@0630,1630 DOMINICK Administration Ondansetron HCl 4 mg 01/08/21 12:53 Ondansetron Hcl 4 Mg/2 Ml Vial IVPUSH ONCE PRN Nausea and Vomiting Prochlorperazine Edisylate 5 mg 12/31/20 23:21 01/06/21 09:42 Prochlorperazine Edisylate 10 Mg/2 Ml Vial IM 5 mg Q6H PRN Administration Nausea and Vomiting Quetiapine Fumarate 12.5 mg 01/08/21 21:00 01/15/21 20:16 Quetiapine Fumarate 25 Mg Tablet G-TUBE 12.5 mg BEDTIME DOMINICK Administration Thiamine HCl 100 mg 01/09/21 09:00 01/15/21 08:46 Thiamine Hcl 100 Mg Tablet G-TUBE 100 mg DAILY DOMINICK Administration Vilazodone HCl 5 mg 01/16/21 09:00 Vilazodone Hcl 10 Mg Tablet G-TUBE DAILY DOMINICK Allergies Allergies Allergy/AdvReac Type Severity Reaction Status Date / Time Sulfa (Sulfonamide Allergy Unknown UNKNOWN Verified 12/01/20 09:47 Antibiotics) [SULFA (SULFONAMIDE ANTIBIOTICS)] zoster vaccine live Allergy Hives Verified 12/01/20 09:47 Assessment & Plan Assessment & Plan (1) Dysphagia: Qualifiers: Dysphagia type: unspecified Qualified Code(s): R13.10 - Dysphagia, unspecified Status: Acute Code(s): R13.10 - Dysphagia, unspecified (2) Pulmonary fibrosis: Status: Acute Code(s): J84.10 - Pulmonary fibrosis, unspecified (3) Chronic respiratory failure: Qualifiers: Respiratory failure complication: hypoxia Qualified Code(s): J96.11 - Chronic respiratory failure with hypoxia Status: Acute Code(s): J96.10 - Chronic respiratory failure, unspecified whether with hypoxia or hypercapnia (4) Severe malnutrition: Status: Acute Code(s): E43 - Unspecified severe protein-calorie malnutrition Assessment and Plan: IMPRESSION: depression, getting ECT. Pt reports some improved mood needs clearance for ECT on Monday continue current tx plan Protein calorie malnutrition Continue PEG Pulmonary fibrosis aspiration continue NPO continue doxycycline and check CBC Hyponatremia check sodium Bipolar depression Adderall start vilazodone Greater than 50% of the session was spent on counseling and/or coordination of care Reason for contiued inpatient stay Substantial Risk for: rapid decompensation
[2021-01-16 08:45] VITALS: BP 127/77; PULSE 83; RESP 18; TEMP 36.4; O2SAT 94
[2021-01-16] MEDS: Vilazodone HCL 10 MG TABLET 5 MG G-TUBE (08:57)
[2021-01-16] MEDS: Clotrimazole 1 % Cream 15 GM TUBE 1 APPL TOPICAL ×2 (08:57→22:49)
[2021-01-16] MEDS: Budesonide 180 MCG AER.POW.BA 2 PUFF INHALE ×2 (08:57→22:49)
[2021-01-16] MEDS: Thiamine HCL 100 MG TABLET G-TUBE (08:58)
[2021-01-16] MEDS: Nystatin Oral Susp 500,000 UNIT/5 ML ORAL.SUSP 400000 UNIT PO ×4 (08:58→22:53)
[2021-01-16] MEDS: Famotidine 20 MG TABLET G-TUBE (08:58)
[2021-01-16] MEDS: LORazepam 0.5 MG TABLET G-TUBE (09:01)
[2021-01-16] MEDS: Amphetamine Mixed Salts 10 MG TABLET 2.5 MG G-TUBE (13:43)
[2021-01-16 15:52] VITALS: BP 110/64; PULSE 86; RESP 16; O2SAT 94
[2021-01-16 16:05] VITALS: BMI 17.6
[2021-01-16] MEDS: Acetaminophen 325 MG TABLET 650 MG G-TUBE (17:00)
[2021-01-16 20:00] VITALS: BP 130/84; PULSE 74; TEMP 36.2; O2SAT 95
[2021-01-16] MEDS: QUEtiapine Fumarate 25 MG TABLET 12.5 MG G-TUBE (22:49)
[2021-01-16] MEDS: Mirtazapine 7.5 MG TABLET G-TUBE (22:49)
[2021-01-17] MEDS: LORazepam 0.5 MG TABLET G-TUBE ×2 (00:22→08:23)
[2021-01-17 06:04] VITALS: BP 119/67; PULSE 75; RESP 20; TEMP 35.8; O2SAT 95
[2021-01-17] MEDS: Thiamine HCL 100 MG TABLET G-TUBE (08:23)
[2021-01-17] MEDS: Clotrimazole 1 % Cream 15 GM TUBE 1 APPL TOPICAL ×2 (08:23→21:20)
[2021-01-17] MEDS: Nystatin Oral Susp 500,000 UNIT/5 ML ORAL.SUSP 400000 UNIT PO ×4 (08:23→21:24)
[2021-01-17] MEDS: Vilazodone HCL 10 MG TABLET 5 MG G-TUBE (08:23)
[2021-01-17] MEDS: Famotidine 20 MG TABLET G-TUBE (08:23)
[2021-01-17] MEDS: Budesonide 180 MCG AER.POW.BA 2 PUFF INHALE ×2 (08:23→21:20)
[2021-01-17 10:15] VITALS: BP 131/75; PULSE 83; RESP 20; O2SAT 96
--- NOTE | 2021-01-17 10:50 | HO.PSYCHPN ---
Subjective Subjective Date of Service: 01/17/21 Reason For Visit: severe depression Interim History: Chart reviewed; case discussed with team. Vitals reviewed: wnl pt resting in bed; seems more tired today, less interactive. Pt says he's ok. Continuity Director referenced that he got out of room and onto porch yesterday which patient agreed was a nice change. He would like to have ECT tomorrow. staff reports pt anxious earlier asking for 02 at rest although 02 sats WNL; however nursing staff helped patient do deep breathing and relax and pt agreed he did not need it. Mental Status Exam Mental Status Exam Narrative: Orientation: Person, Place, Time and Situation Level of Consciousness: Awake and alert Patient Behavior: Cooperative Mood Description: l ok Affect Description: congruent Patient Cognition Impaired: No Ability to Follow Directions: Good Speech Pattern: lower volume, some delay Memory Description: Intact Hallucinations: None Delusions: Not Present Thought Process: Goal Oriented Thought Content: on treatment, condition Psychomotor Retardation Judgement: Fair Diagnostics Vital Signs (24Hr): Vital Signs - 24 hr 01/16/21 15:52 01/16/21 20:00 01/17/21 06:04 Temperature 97.2 F 96.4 F L Pulse Rate 86 74 75 Respiratory Rate 16 20 Blood Pressure 110/64 130/84 119/67 Pulse Oximetry 94 95 95 01/17/21 10:15 Temperature Pulse Rate 83 Respiratory Rate 20 Blood Pressure 131/75 Pulse Oximetry 96 Body Mass Index 17.6 Labs Results: 01/15/21 14:51 01/15/21 14:51 Labs: Laboratory Results - last 48 hr 01/15/21 01/15/21 14:51 14:51 WBC 11.2 H RBC 3.37 L Hgb 10.6 L Hct 31.9 L MCV 94.7 MCH 31.5 MCHC 33.2 RDW 15.5 Plt Count 382 MPV 10.7 Immature Gran % (Auto) 0.5 H Neut % (Auto) 79.8 H Lymph % (Auto) 13.3 L [place] % (Auto) 5.8 Eos % (Auto) 0.4 Baso % (Auto) 0.2 Lymph # (Auto) 1.5 [place] # (Auto) 0.7 Eos # (Auto) 0.1 Baso # (Auto) 0.0 Abs Immat Gran (auto) 0.06 H Absolute Neuts (auto) 8.9 H Absolute Nucleated RBC 0.000 Nucleated RBC % (auto) 0.0 Sodium 132 L Potassium 5.1 Chloride 94 L Carbon Dioxide 32 H Anion Gap 11 L Imaging Radiology Impressions: ITS Impressions Modified Barium Swallow 01/07/21 14:15 IMPRESSION: Laryngeal penetration and occasional aspiration as described above. Please refer to speech pathology report for details. Chest X-Ray 01/10/21 09:11 IMPRESSION: Severe chronic interstitial lung disease. No evidence of acute superimposed pneumonitis. Medications Medications Current Medications Generic Name Dose Route Start Last Admin Trade Name Freq PRN Reason Stop Dose Admin Acetaminophen 650 mg 01/09/21 15:51 01/16/21 17:00 Acetaminophen 325 Mg Tablet G-TUBE 650 mg Q4H PRN Administration Pain, Mild (Pain Scale 1-3) Al Hydroxide/Mg Hydroxide 30 ml 01/08/21 15:46 Magnesium Hydrox/Alum Hydrox 30 Ml Oral.Susp G-TUBE Q4H PRN Dyspepsia Amphetamine/Dextroamphetamine 2.5 mg 01/15/21 13:00 01/16/21 13:43 Amphetamine Mixed Salts 10 Mg Tablet G-TUBE 2.5 mg DAILY@1300 DOMINICK Administration Budesonide 2 puff 12/31/20 20:00 01/17/21 08:23 Budesonide 180 Mcg Aer.Pow.Ba INHALE 2 puff RBID DOMINICK Administration Clotrimazole 1 appl 01/06/21 21:00 01/17/21 08:23 Clotrimazole 1 % Cream 15 Gm Tube TOPICAL 1 appl BID DOMINICK Administration Protocol Dexamethasone 1 mg 01/09/21 09:00 01/17/21 08:23 Dexamethasone 0.5 Mg Tablet G-TUBE 1 mg DAILY DOMINICK Administration Doxycycline Hyclate 100 mg 01/16/21 19:54 01/17/21 08:23 Doxycycline Hyclate 100 Mg Tablet G-TUBE 100 mg Q12H DOMINICK Administration Famotidine 20 mg 01/09/21 09:00 01/17/21 08:23 Famotidine 20 Mg Tablet G-TUBE 20 mg DAILY DOMINICK Administration Lorazepam 0.5 mg 01/08/21 17:02 01/17/21 08:23 Lorazepam 0.5 Mg Tablet G-TUBE 0.5 mg Q6H PRN Administration anxiety Mirtazapine 7.5 mg 01/14/21 21:00 01/16/21 22:49 Mirtazapine 7.5 Mg Tablet G-TUBE 7.5 mg BEDTIME DOMINICK Administration Patient Own 1 each 01/08/21 21:00 Medication ( G-TUBE Nintedanib 150) BID DOMINICK Nystatin 400,000 unit 01/15/21 17:00 01/17/21 08:23 Nystatin Oral Susp 500,000 Unit/5 Ml Oral.Susp PO 400,000 unit QID DOMINICK Administration Protocol Omeprazole 40 mg 01/08/21 16:30 01/17/21 05:35 Omeprazole 20 Mg/10 Ml Susp.Recon G-TUBE 40 mg BID@0630,1630 DOMINICK Administration Ondansetron HCl 4 mg 01/08/21 12:53 Ondansetron Hcl 4 Mg/2 Ml Vial IVPUSH ONCE PRN Nausea and Vomiting Prochlorperazine Edisylate 5 mg 12/31/20 23:21 01/06/21 09:42 Prochlorperazine Edisylate 10 Mg/2 Ml Vial IM 5 mg Q6H PRN Administration Nausea and Vomiting Quetiapine Fumarate 12.5 mg 01/08/21 21:00 01/16/21 22:49 Quetiapine Fumarate 25 Mg Tablet G-TUBE 12.5 mg BEDTIME DOMINICK Administration Thiamine HCl 100 mg 01/09/21 09:00 01/17/21 08:23 Thiamine Hcl 100 Mg Tablet G-TUBE 100 mg DAILY DOMINICK Administration Vilazodone HCl 5 mg 01/16/21 09:00 01/17/21 08:23 Vilazodone Hcl 10 Mg Tablet G-TUBE 5 mg DAILY DOMINICK Administration Allergies Allergies Allergy/AdvReac Type Severity Reaction Status Date / Time Sulfa (Sulfonamide Allergy Unknown UNKNOWN Verified 12/01/20 09:47 Antibiotics) [SULFA (SULFONAMIDE ANTIBIOTICS)] zoster vaccine live Allergy Hives Verified 12/01/20 09:47 Assessment & Plan Assessment & Plan (1) Dysphagia: Qualifiers: Dysphagia type: unspecified Qualified Code(s): R13.10 - Dysphagia, unspecified Status: Acute Code(s): R13.10 - Dysphagia, unspecified (2) Pulmonary fibrosis: Status: Acute Code(s): J84.10 - Pulmonary fibrosis, unspecified (3) Chronic respiratory failure: Qualifiers: Respiratory failure complication: hypoxia Qualified Code(s): J96.11 - Chronic respiratory failure with hypoxia Status: Acute Code(s): J96.10 - Chronic respiratory failure, unspecified whether with hypoxia or hypercapnia (4) Severe malnutrition: Status: Acute Code(s): E43 - Unspecified severe protein-calorie malnutrition Assessment and Plan: IMPRESSION: depression, getting ECT. Pt reports some improved mood Nursing staff reports to telegraphic typewriter repairer that hospitalist said pt was cleared on 01/13/21 for ECT on Monday continue current tx plan Protein calorie malnutrition Continue PEG Pulmonary fibrosis aspiration continue NPO continue doxycycline and check CBC Hyponatremia check sodium Bipolar depression Adderall start vilazodone Greater than 50% of the session was spent on counseling and/or coordination of care Reason for contiued inpatient stay Substantial Risk for: rapid decompensation
[2021-01-17] MEDS: Amphetamine Mixed Salts 10 MG TABLET 2.5 MG G-TUBE (13:25)
[2021-01-17 15:36] VITALS: BP 122/71; PULSE 85; RESP 18; O2SAT 94
[2021-01-17 16:00] VITALS: BP 109/70; PULSE 79; TEMP 36.6; O2SAT 95
[2021-01-17] MEDS: QUEtiapine Fumarate 25 MG TABLET 12.5 MG G-TUBE (20:53)
[2021-01-17] MEDS: Mirtazapine 7.5 MG TABLET G-TUBE (20:53)
[2021-01-18 05:30] VITALS: BP 120/79; PULSE 76; RESP 24; TEMP 37; O2SAT 95
--- NOTE | 2021-01-18 07:44 | PC.NURSE ---
0230: residual checks. 0245 new feeding bottle hang with tubing changed. Patient tolerates to the change well. Contiue feeding with set rate 60ml/hr as order.
[2021-01-18] MEDS: Vilazodone HCL 10 MG TABLET 5 MG G-TUBE (09:31)
[2021-01-18] MEDS: Thiamine HCL 100 MG TABLET G-TUBE (09:31)
[2021-01-18] MEDS: Famotidine 20 MG TABLET G-TUBE (09:31)
[2021-01-18] MEDS: Budesonide 180 MCG AER.POW.BA 2 PUFF INHALE ×2 (09:51→21:27)
[2021-01-18] MEDS: Nystatin Oral Susp 500,000 UNIT/5 ML ORAL.SUSP 400000 UNIT PO ×4 (10:03→21:24)
[2021-01-18] MEDS: Clotrimazole 1 % Cream 15 GM TUBE 1 APPL TOPICAL ×2 (10:04→21:27)
[2021-01-18] MEDS: LORazepam 0.5 MG TABLET G-TUBE (10:53)
[2021-01-18 12:00] VITALS: BP 125/79; PULSE 85; RESP 26; O2SAT 95
[2021-01-18 13:36] VITALS: BMI 17.5
[2021-01-18] MEDS: Amphetamine Mixed Salts 10 MG TABLET 2.5 MG G-TUBE (14:32)
--- NOTE | 2021-01-18 15:06 | MHC.CLN ---
F/U PT REMAIN NPO WITH TF WT HX FOLLOWS: 01/18 112# 01/16 112.6# 01/12 116# NO NEW LABS PT RECEIVING JEVITY AT MAX GOAL RATE 60CC/HR WITH 120CC FREE WATER FLUSHES Q SHIFT TO PROVIDE 1526KCALS (29KCALS/KG), 63G PROTEIN (1.2G/KG), 1562CC TOTAL WATER FROM FORMULA AND FLUSHES (30CC/KG) FORMULA TO PROMOTE SLOW WT GAIN, HOWEVER RECENT WT LOSS; CONCERN FOR RE-FEEDING NSG REPORTS PT TOLERATING TF WITH LOW RESIDUALS SPOKE WITH PT AND FAMILY MEMBER. PT AWARE OF WT LOSS. NO C/O N/V; DISCUSSED PLAN WITH PT AND FAMILY MEMBER AT BEDSIDE STAT LABS FOR LYTES NA, MG, PHOS AND K+ IF LABS WNL; RECOMMEND INCREASING TF JEVITY AT MAX GOAL RATE 70CC/HR WITH 120CC FREE WATER Q SHIFT TO PROVIDE 1781KCALS (34KCALS/KG), 74G PROTEIN (1.4G/KG), 1762CC TOTAL WATER FROM FORMULA AND FLUSH (34CC/KG) MONITOR TOLERANCE, RESIDUALS AND LYTES NA, MG, PHOS AND K+ STRICT WEEKLY WEIGHTS DISCUSSED CASE WITH
[2021-01-18 16:00] VITALS: BP 139/89; PULSE 74; TEMP 36.4
[2021-01-18] MEDS: LORazepam 0.5 MG TABLET PO ×2 (16:01→21:24)
[2021-01-18 16:09] LABS: Alanine Aminotransferase 55 U/L (0-40); Albumin Level 2.8 g/dL (3.5-5.0); Alkaline Phosphatase 174 U/L (39-117); Anion Gap 11 (12-20); Aspartate Amino Transferase 34 U/L (5-37); Bilirubin Total 0.3 mg/dL (0.0-1.0); Blood Urea Nitrogen 22 mg/dL (9-16); Calcium 8.8 mg/dL (8.4-10.2); Carbon Dioxide 31 mmol/L (22-29); Chloride 95 mmol/L (96-108); Estimated Glomerular Filt Rate > 60; Glucose Random 165 mg/dL (60-115); Magnesium 2.1 mg/dL (1.6-2.6); Potassium 5.1 mmol/L (3.3-5.1); Sodium 132 mmol/L (135-145); Total Protein 6.4 g/dL (6.5-8.0)
--- NOTE | 2021-01-18 16:24 | P.PNPSI_ITS ---
Subjective Subjective Date of Service: 01/19/21 Reason For Visit: severe depression Subjective Notes: Conditional Voluntary Interim History: Patient remains quite depressed worried that Adderall might be increasing his anxiety P thoughts at times he would be better off but denies plans or intent. Some complaints of shortness breath at times p.o2 generally stable has not gained weight dietary involved Medication Compliance: Yes Side effects from medications: Yes Attending Groups: No Mental Status Exam Mental Status Exam Narrative: Orientation: Person, Place, Time and Situation Level of Consciousness: Awake and alert Patient Behavior: Cooperative Mood Description: l ok Patient Appearance: Fatigued and Disheveled Patient Orientation: Person, Place, Time and Situation Level of Consciousness: Drowsy Patient Behavior: Appropriate Mood Description: Depressed, Anxious, Sad and Apprehensive Affect Description: Depressed, Anxious and Apprehensive Ability to Follow Directions: Good Speech Pattern: Clear Delusions: Not Present Thought Process: Rumination Thought Content: positive for Preoccupation, positive for Suicidal Ideation (passive ) and negative for Homicidal Ideation Depressive Symptoms: Increased Anxiety, Increased Irritability, Thoughts of /Suicide and Difficulty Concentrating Diagnostics Vital Signs (24Hr): Vital Signs - 24 hr 01/18/21 05:30 01/18/21 12:00 Temperature 98.6 F Pulse Rate 76 85 Respiratory Rate 24 H 26 H Blood Pressure 120/79 125/79 Pulse Oximetry 95 95 Body Mass Index 17.5 Labs Results: 01/15/21 14:51 01/18/21 15:36 Labs: Laboratory Results - last 48 hr 01/18/21 15:36 Sodium 132 L Potassium 5.1 Chloride 95 L Carbon Dioxide 31 H Anion Gap 11 L BUN 22 H Creatinine 0.88 Estim Creat Clear Calc 49.0 Estimated GFR > 60 Random Glucose 165 H Calcium 8.8 Phosphorus 3.0 Magnesium 2.1 Total Bilirubin 0.3 AST 34 ALT 55 H Alkaline Phosphatase 174 H Total Protein 6.4 L Albumin 2.8 L Imaging Radiology Impressions: ITS Impressions Modified Barium Swallow 01/07/21 14:15 IMPRESSION: Laryngeal penetration and occasional aspiration as described above. Please refer to speech pathology report for details. Chest X-Ray 01/10/21 09:11 IMPRESSION: Severe chronic interstitial lung disease. No evidence of acute superimposed pneumonitis. Medications Medications Current Medications Generic Name Dose Route Start Last Admin Trade Name Freq PRN Reason Stop Dose Admin Acetaminophen 650 mg 01/09/21 15:51 01/16/21 17:00 Acetaminophen 325 Mg Tablet G-TUBE 650 mg Q4H PRN Administration Pain, Mild (Pain Scale 1-3) Al Hydroxide/Mg Hydroxide 30 ml 01/08/21 15:46 Magnesium Hydrox/Alum Hydrox 30 Ml Oral.Susp G-TUBE Q4H PRN Dyspepsia Amphetamine/Dextroamphetamine 2.5 mg 01/15/21 13:00 01/18/21 14:32 Amphetamine Mixed Salts 10 Mg Tablet G-TUBE 2.5 mg DAILY@1300 DOMINICK Administration Budesonide 2 puff 12/31/20 20:00 01/18/21 09:51 Budesonide 180 Mcg Aer.Pow.Ba INHALE 2 puff RBID DOMINICK Administration Clotrimazole 1 appl 01/06/21 21:00 01/18/21 10:04 Clotrimazole 1 % Cream 15 Gm Tube TOPICAL 1 appl BID DOMINICK Administration Protocol Dexamethasone 1 mg 01/09/21 09:00 01/18/21 09:30 Dexamethasone 0.5 Mg Tablet G-TUBE 1 mg DAILY DOMINICK Administration Doxycycline Hyclate 100 mg 01/16/21 19:54 01/18/21 09:31 Doxycycline Hyclate 100 Mg Tablet G-TUBE 100 mg Q12H DOMINICK Administration Famotidine 20 mg 01/09/21 09:00 01/18/21 09:31 Famotidine 20 Mg Tablet G-TUBE 20 mg DAILY DOMINICK Administration Lorazepam 0.5 mg 01/18/21 10:29 01/18/21 16:01 Lorazepam 0.5 Mg Tablet PO 0.5 mg Q4H PRN Administration anxiety/restlessness Mirtazapine 7.5 mg 01/14/21 21:00 01/17/21 20:53 Mirtazapine 7.5 Mg Tablet G-TUBE 7.5 mg BEDTIME DOMINICK Administration Patient Own 1 each 01/08/21 21:00 Medication ( G-TUBE Nintedanib 150) BID DOMINICK Nystatin 400,000 unit 01/15/21 17:00 01/18/21 14:32 Nystatin Oral Susp 500,000 Unit/5 Ml Oral.Susp PO 400,000 unit QID DOMINICK Administration Protocol Omeprazole 40 mg 01/08/21 16:30 01/18/21 16:03 Omeprazole 20 Mg/10 Ml Susp.Recon G-TUBE 40 mg BID@0630,1630 [facility] Administration Ondansetron HCl 4 mg 01/08/21 12:53 Ondansetron Hcl 4 Mg/2 Ml Vial IVPUSH ONCE PRN Nausea and Vomiting Prochlorperazine Edisylate 5 mg 12/31/20 23:21 01/06/21 09:42 Prochlorperazine Edisylate 10 Mg/2 Ml Vial IM 5 mg Q6H PRN Administration Nausea and Vomiting Quetiapine Fumarate 12.5 mg 01/08/21 21:00 01/17/21 20:53 Quetiapine Fumarate 25 Mg Tablet G-TUBE 12.5 mg BEDTIME DOMINICK Administration Thiamine HCl 100 mg 01/09/21 09:00 01/18/21 09:31 Thiamine Hcl 100 Mg Tablet G-TUBE 100 mg DAILY DOMINICK Administration Vilazodone HCl 5 mg 01/16/21 09:00 01/18/21 09:31 Vilazodone Hcl 10 Mg Tablet G-TUBE 5 mg DAILY DOMINICK Administration Allergies Allergies Allergy/AdvReac Type Severity Reaction Status Date / Time Sulfa (Sulfonamide Allergy Unknown UNKNOWN Verified 12/01/20 09:47 Antibiotics) [SULFA (SULFONAMIDE ANTIBIOTICS)] zoster vaccine live Allergy Hives Verified 12/01/20 09:47 Assessment & Plan Assessment & Plan (1) Dysphagia: Qualifiers: Dysphagia type: unspecified Qualified Code(s): R13.10 - Dysphagia, unspecified Status: Acute Code(s): R13.10 - Dysphagia, unspecified (2) Pulmonary fibrosis: Status: Acute Code(s): J84.10 - Pulmonary fibrosis, unspecified (3) Chronic respiratory failure: Qualifiers: Respiratory failure complication: hypoxia Qualified Code(s): J96.11 - Chronic respiratory failure with hypoxia Status: Acute Code(s): J96.10 - Chronic respiratory failure, unspecified whether with hypoxia or hypercapnia (4) Bipolar I disorder with depression, severe: Status: Acute Code(s): F31.4 - Bipolar disorder, current episode depressed, severe, without psychotic features (5) Severe protein-calorie malnutrition: Status: Acute Code(s): E43 - Unspecified severe protein-calorie malnutrition Assessment and Plan: IMPRESSION: depression, . vilazadone low dose reconsider ect low dose adderall Protein calorie malnutrition Continue PEG labs ordered spoke with dietary Pulmonary fibrosis aspiration continue NPO Hyponatremia check sodium 132 Greater than 50% of the session was spent on counseling and/or coordination of care Reason for contiued inpatient stay Substantial Risk for: inability to function, rapid decompensation and med/psych decompensation
[2021-01-18 21:10] VITALS: BP 133/84; PULSE 75; RESP 28; TEMP 36.3; O2SAT 93
[2021-01-18] MEDS: Mirtazapine 7.5 MG TABLET G-TUBE (21:25)
[2021-01-18] MEDS: QUEtiapine Fumarate 25 MG TABLET 12.5 MG G-TUBE (21:26)
[2021-01-19 00:45] VITALS: BP 91/60; PULSE 74; RESP 24; TEMP 36.5; O2SAT 94
[2021-01-19 05:50] VITALS: BP 107/60; PULSE 74; RESP 24; TEMP 36.5; O2SAT 95
--- NOTE | 2021-01-19 08:43 | MHC.CLN ---
F/U REVIEWED LABS PHOS, MG, K+ WNL RECOMMEND INCREASING TF JEVITY AT MAX GOAL RATE 70CC/HR WITH 120CC FREE WATER Q SHIFT TO PROVIDE 1781KCALS (34KCALS/KG), 74G PROTEIN (1.4G/KG), 1762CC TOTAL WATER FROM FORMULA AND FLUSH (34CC/KG) MONITOR TOLERANCE, RESIDUALS AND LYTES NA, MG, PHOS AND K+ STRICT WEEKLY WEIGHTS FOLLOWING
[2021-01-19] MEDS: Clotrimazole 1 % Cream 15 GM TUBE 1 APPL TOPICAL ×2 (08:45→22:15)
[2021-01-19] MEDS: Budesonide 180 MCG AER.POW.BA 2 PUFF INHALE ×2 (08:45→22:15)
[2021-01-19] MEDS: Vilazodone HCL 10 MG TABLET 5 MG G-TUBE (08:46)
[2021-01-19] MEDS: Nystatin Oral Susp 500,000 UNIT/5 ML ORAL.SUSP 400000 UNIT PO ×4 (08:46→22:15)
[2021-01-19] MEDS: LORazepam 0.5 MG TABLET PO ×4 (08:47→22:14)
[2021-01-19] MEDS: Thiamine HCL 100 MG TABLET G-TUBE (08:47)
[2021-01-19] MEDS: Famotidine 20 MG TABLET G-TUBE (08:47)
[2021-01-19 12:00] VITALS: BP 121/73; PULSE 78; RESP 16; O2SAT 97
--- NOTE | 2021-01-19 14:27 | PM.PNPUL ---
Subjective Subjective Date of Service: 01/19/21 Principal diagnosis: Aspiration Interval history: 80-year-old gentleman with underlying pulmonary fibrosis on Ofev therapy, hospitalized on N5 planned for ECT, with prior history of a possible aspiration event after prior ECT. Empirically treated with doxycycline for likely recurrent aspiration. Now comfortable on room air. Objective Data Labs CBC & Chem 7: 01/15/21 14:51 01/18/21 15:36 Labs: Laboratory Results - last 24 hr 01/18/21 15:36 Sodium 132 L Potassium 5.1 Chloride 95 L Carbon Dioxide 31 H Anion Gap 11 L BUN 22 H Creatinine 0.88 Estim Creat Clear Calc 49.0 Estimated GFR > 60 Random Glucose 165 H Calcium 8.8 Phosphorus 3.0 Magnesium 2.1 Total Bilirubin 0.3 AST 34 ALT 55 H Alkaline Phosphatase 174 H Total Protein 6.4 L Albumin 2.8 L Microbiology Microbiology Results: Microbiology 01/10/21 09:26 Blood - Venous Blood Culture - Final No growth after 5 days. 01/10/21 09:26 Blood - Venous Blood Culture - Final No growth after 5 days. Review of Systems Cardiovascular: Denies dyspnea, Denies dyspnea on exertion and Denies orthopnea Respiratory: Denies cough, Denies dyspnea, Denies dyspnea on exertion and Denies wheezing Allergic/Immunologic: Denies wheezing Physical Exam Vital Signs: Vital Signs: Last Vital Signs Temp 97.7 F 01/19/21 05:50 Pulse 74 01/19/21 05:50 Resp 24 H 01/19/21 05:50 BP 107/60 01/19/21 05:50 Pulse Ox 95 01/19/21 05:50 Body Mass Index 17.5 Const: General: no acute distress, alert and awake Nutritional Appearance: cachectic Eyes: Sclerae: sclerae normal EOM: EOMs intact bilaterally Neck: Neck: Yes no lymphadenopathy, Yes trachea midline and Yes supple Resp: Effort & Inspection: normal respiratory effort and no respiratory distress Auscultation: clear to auscultation bilaterally Cardio: Rate: regular rate Rhythm: regular rhythm Heart sounds: no gallops, no murmurs and no rubs GI: Palpation (GI): Soft to palpation and Other GI palpation findings present ( Nontender) Auscultation: normal bowel sounds Extrem: General: Yes no pedal edema, No clubbing and No cyanosis Assessment and Plan Assessment and plan (1) Pulmonary fibrosis: Status: Acute Assessment and Plan: Impression: 80-year-old gentleman with underlying advanced idiopathic pulmonary fibrosis on Ofev therapy, with likely prior episode of aspiration, now on doxycycline for possible recurrent aspiration planned for ECT. Now on room air. Recommendations: From pulmonary perspective Anoro contraindications except to minimize the risk of aspiration would suggest elevating head of bed above 30? during the procedure. Would continue doxycycline for total of 10 days. Time Spent With Patient Time with patient: 15 - 24 minutes
[2021-01-19 16:30] VITALS: BP 91/52; PULSE 75; RESP 30; TEMP 36.9; O2SAT 96
--- NOTE | 2021-01-19 21:38 | P.PNPSI_ITS ---
Subjective Subjective Date of Service: 01/19/21 Reason For Visit: severe depression Subjective Notes: Conditional Voluntary Interim History: pt depressed irritable c/o inc anxiety adderall had been d/c pt seen by pulmonary poeg feedings rate was inc secondary to lack of wt gain Medication Compliance: Yes Side effects from medications: Yes Attending Groups: Yes Mental Status Exam Mental Status Exam Patient Appearance: Fatigued and Disheveled Patient Orientation: Person, Place, Time and Situation Level of Consciousness: Drowsy Patient Behavior: Appropriate and Passive Mood Description: Depressed, Anxious, Sad and Apprehensive Affect Description: Depressed, Anxious and Apprehensive Ability to Follow Directions: Good Speech Pattern: Clear, Impoverished and Monotone Hallucinations: None Delusions: Not Present Thought Process: Rumination Thought Content: positive for Preoccupation, positive for Suicidal Ideation (passive ) and negative for Homicidal Ideation Depressive Symptoms: Increased Anxiety, Increased Irritability, Thoughts of D eath/Suicide and Difficulty Concentrating Judgement: Fair Diagnostics Vital Signs (24Hr): Vital Signs - 24 hr 01/19/21 00:45 01/19/21 05:50 01/19/21 12:00 Temperature 97.7 F 97.7 F Pulse Rate 74 74 78 Respiratory Rate 24 H 24 H 16 Blood Pressure 91/60 107/60 121/73 Pulse Oximetry 94 95 97 Body Mass Index 17.5 Labs Results: 01/15/21 14:51 01/18/21 15:36 Labs: Laboratory Results - last 48 hr 01/18/21 15:36 Sodium 132 L Potassium 5.1 Chloride 95 L Carbon Dioxide 31 H Anion Gap 11 L BUN 22 H Creatinine 0.88 Estim Creat Clear Calc 49.0 Estimated GFR > 60 Random Glucose 165 H Calcium 8.8 Phosphorus 3.0 Magnesium 2.1 Total Bilirubin 0.3 AST 34 ALT 55 H Alkaline Phosphatase 174 H Total Protein 6.4 L Albumin 2.8 L Imaging Radiology Impressions: ITS Impressions Modified Barium Swallow 01/07/21 14:15 IMPRESSION: Laryngeal penetration and occasional aspiration as described above. Please refer to speech pathology report for details. Chest X-Ray 01/10/21 09:11 IMPRESSION: Severe chronic interstitial lung disease. No evidence of acute superimposed pneumonitis. Medications Medications Current Medications Generic Name Dose Route Start Last Admin Trade Name Freq PRN Reason Stop Dose Admin Acetaminophen 650 mg 01/09/21 15:51 01/16/21 17:00 Acetaminophen 325 Mg Tablet G-TUBE 650 mg Q4H PRN Administration Pain, Mild (Pain Scale 1-3) Al Hydroxide/Mg Hydroxide 30 ml 01/08/21 15:46 Magnesium Hydrox/Alum Hydrox 30 Ml Oral.Susp G-TUBE Q4H PRN Dyspepsia Budesonide 2 puff 12/31/20 20:00 01/19/21 08:45 Budesonide 180 Mcg Aer.Pow.Ba INHALE 2 puff RBID DOMINICK Administration Clotrimazole 1 appl 01/06/21 21:00 01/19/21 08:45 Clotrimazole 1 % Cream 15 Gm Tube TOPICAL 1 appl BID DOMINICK Administration Protocol Dexamethasone 1 mg 01/09/21 09:00 01/19/21 08:47 Dexamethasone 0.5 Mg Tablet G-TUBE 1 mg DAILY DOMINICK Administration Doxycycline Hyclate 100 mg 01/16/21 19:54 01/19/21 08:47 Doxycycline Hyclate 100 Mg Tablet G-TUBE 100 mg Q12H DOMINICK Administration Famotidine 20 mg 01/09/21 09:00 01/19/21 08:47 Famotidine 20 Mg Tablet G-TUBE 20 mg DAILY DOMINICK Administration Lorazepam 0.5 mg 01/18/21 10:29 01/19/21 17:17 Lorazepam 0.5 Mg Tablet PO 0.5 mg Q4H PRN Administration anxiety/restlessness Mirtazapine 7.5 mg 01/14/21 21:00 01/18/21 21:25 Mirtazapine 7.5 Mg Tablet G-TUBE 7.5 mg BEDTIME DOMINICK Administration Patient Own 1 each 01/08/21 21:00 Medication ( G-TUBE Nintedanib 150) BID DOMINICK Nystatin 400,000 unit 01/15/21 17:00 01/19/21 16:53 Nystatin Oral Susp 500,000 Unit/5 Ml Oral.Susp PO 400,000 unit QID DOMINICK Administration Protocol Omeprazole 40 mg 01/08/21 16:30 01/19/21 16:52 Omeprazole 20 Mg/10 Ml Susp.Recon G-TUBE 40 mg BID@0630,1630 DOMINICK Administration Ondansetron HCl 4 mg 01/08/21 12:53 Ondansetron Hcl 4 Mg/2 Ml Vial IVPUSH ONCE PRN Nausea and Vomiting Prochlorperazine Edisylate 5 mg 12/31/20 23:21 01/06/21 09:42 Prochlorperazine Edisylate 10 Mg/2 Ml Vial IM 5 mg Q6H PRN Administration Nausea and Vomiting Quetiapine Fumarate 12.5 mg 01/08/21 21:00 01/18/21 21:26 Quetiapine Fumarate 25 Mg Tablet G-TUBE 12.5 mg BEDTIME DOMINICK Administration Thiamine HCl 100 mg 01/09/21 09:00 01/19/21 08:47 Thiamine Hcl 100 Mg Tablet G-TUBE 100 mg DAILY DOMINICK Administration Vilazodone HCl 5 mg 01/16/21 09:00 01/19/21 08:46 Vilazodone Hcl 10 Mg Tablet G-TUBE 5 mg DAILY DOMINICK Administration Allergies Allergies Allergy/AdvReac Type Severity Reaction Status Date / Time Sulfa (Sulfonamide Allergy Unknown UNKNOWN Verified 12/01/20 09:47 Antibiotics) [SULFA (SULFONAMIDE ANTIBIOTICS)] zoster vaccine live Allergy Hives Verified 12/01/20 09:47 Assessment & Plan Assessment & Plan (1) Dysphagia: Qualifiers: Dysphagia type: unspecified Qualified Code(s): R13.10 - Dysphagia, unspecified Status: Acute Code(s): R13.10 - Dysphagia, unspecified (2) Pulmonary fibrosis: Status: Acute Code(s): J84.10 - Pulmonary fibrosis, unspecified (3) Chronic respiratory failure: Qualifiers: Respiratory failure complication: hypoxia Qualified Code(s): J96.11 - Chronic respiratory failure with hypoxia Status: Acute Code(s): J96.10 - Chronic respiratory failure, unspecified whether with hypoxia or hypercapnia (4) Bipolar I disorder with depression, severe: Status: Acute Code(s): F31.4 - Bipolar disorder, current episode depressed, severe, without psychotic features (5) Severe protein-calorie malnutrition: Status: Acute Code(s): E43 - Unspecified severe protein-calorie malnutrition Assessment and Plan: IMPRESSION: depression, . vilazadone stpped secondary to anxiety low dose reconsider ect restart low dose adderall Protein calorie malnutrition Continue PEG labs ordered spoke with dietary inc flow rate Pulmonary fibrosis aspiration continue NPO ? steroid def case reviewed nephrology acth stim test Greater than 50% of the session was spent on counseling and/or coordination of care Reason for contiued inpatient stay Substantial Risk for: rapid decompensation and med/psych decompensation
[2021-01-19] MEDS: Mirtazapine 7.5 MG TABLET G-TUBE (22:13)
[2021-01-19] MEDS: QUEtiapine Fumarate 25 MG TABLET 12.5 MG G-TUBE (22:13)
--- NOTE | 2021-01-19 22:38 | P.EN_ITS ---
Event Note Date of Service: 01/19/21 Event Note: Seen at request of Psychiatrist for eleveated blood sugar and WBC. Mr tyler says he feels better today, he tells me he is been fed through a feeding tube. He seems depressed otherwise cooperative and a pleasant gentlemen. His Vitals are all within normal. Most recent labs on 01/15 WBC was 11 and most recent glucose was 165. I reviewed his meds and note that he is Decadron amongst other meds. I requested Hgb A1 C level, although I doubt that he has diabetes. Mild i ncrease in WBC and blood sugar is consistent with steroid therapy, we could check blood sugars more frequently and see what A1C level is.
[2021-01-19 22:40] VITALS: BP 102/59; PULSE 71; RESP 28; TEMP 36.7; O2SAT 93
[2021-01-19 22:51] LABS: Glucose, Whole Blood 112 mg/dL (60-115)
[2021-01-20 06:22] LABS: Glucose, Whole Blood 111 mg/dL (60-115)
[2021-01-20 08:00] VITALS: BP 112/67; PULSE 100; RESP 18; O2SAT 96
[2021-01-20] MEDS: Nystatin Oral Susp 500,000 UNIT/5 ML ORAL.SUSP 400000 UNIT PO ×4 (08:43→20:55)
[2021-01-20] MEDS: Budesonide 180 MCG AER.POW.BA 2 PUFF INHALE ×2 (08:44→21:13)
[2021-01-20] MEDS: Amphetamine Mixed Salts 10 MG TABLET 2.5 MG G-TUBE (08:44)
[2021-01-20] MEDS: Clotrimazole 1 % Cream 15 GM TUBE 1 APPL TOPICAL ×2 (08:44→21:13)
[2021-01-20] MEDS: Thiamine HCL 100 MG TABLET G-TUBE (08:45)
[2021-01-20] MEDS: LORazepam 0.5 MG TABLET PO ×3 (08:45→18:40)
[2021-01-20] MEDS: Famotidine 20 MG TABLET G-TUBE (08:45)
[2021-01-20 09:20] LABS: Estimated Average Glucose 117 mg/dL; Hemoglobin A1c % 5.7 %
[2021-01-20] MEDS: Cosyntropin 0.25 MG VIAL IVPUSH (11:25)
[2021-01-20 12:00] VITALS: BP 118/74; PULSE 87; RESP 20; O2SAT 94
[2021-01-20 12:21] LABS: Glucose, Whole Blood 127 mg/dL (60-115)
--- NOTE | 2021-01-20 15:28 | MHC.CLN ---
F/U REVIEWED LABS TF JEVITY AT MAX GOAL RATE 70CC/HR WITH 120CC FREE WATER Q SHIFT PROVIDES 1781KCALS (34KCALS/KG), 74G PROTEIN (1.4G/KG), 1762CC TOTAL WATER FROM FORMULA AND FLUSH (34CC/KG) MONITOR TOLERANCE, RESIDUALS AND LYTES STRICT WEEKLY WEIGHTS FOLLOWING
[2021-01-20 15:29] VITALS: BMI 17.6
[2021-01-20 17:10] VITALS: BP 121/79; PULSE 82; TEMP 36.2; O2SAT 94
[2021-01-20 17:49] LABS: Glucose, Whole Blood 140 mg/dL (60-115)
[2021-01-20] MEDS: Mirtazapine 7.5 MG TABLET G-TUBE (20:55)
[2021-01-20] MEDS: QUEtiapine Fumarate 25 MG TABLET 12.5 MG G-TUBE (20:56)
[2021-01-20 21:41] LABS: Glucose, Whole Blood 89 mg/dL (60-115)
--- NOTE | 2021-01-20 22:37 | P.PNPSI_ITS ---
Subjective Subjective Date of Service: 01/20/21 Reason For Visit: severe depression Subjective Notes: Conditional Voluntary Interim History: pt remains depressed hopeless help-less flat acth stimulation stest com[;leted started on adderall retest trial vilazadone d/ c Medication Compliance: Yes Mental Status Exam Mental Status Exam Patient Appearance: Fatigued and Disheveled Patient Orientation: Person, Place, Time and Situation Level of Consciousness: Drowsy Patient Behavior: Passive Mood Description: Depressed, Anxious, Sad and Apprehensive Affect Description: Depressed, Anxious and Apprehensive Ability to Follow Directions: Good Speech Pattern: Clear, Impoverished and Monotone Hallucinations: None Delusions: Not Present Thought Process: Rumination Thought Content: positive for Preoccupation, positive for Suicidal Ideation (passive ) and negative for Homicidal Ideation Depressive Symptoms: Increased Anxiety, Increased Irritability, Thoughts of /Suicide and Difficulty Concentrating Judgement: Fair Diagnostics Vital Signs (24Hr): Vital Signs - 24 hr 01/19/21 22:40 01/20/21 08:00 01/20/21 12:00 Temperature 98.1 F Pulse Rate 71 100 87 Respiratory Rate 28 H 18 20 Blood Pressure 102/59 L 112/67 118/74 Pulse Oximetry 93 96 94 01/20/21 17:10 Temperature 97.2 F Pulse Rate 82 Respiratory Rate Blood Pressure 121/79 Pulse Oximetry 94 Body Mass Index 17.6 Labs Results: 01/15/21 14:51 01/18/21 15:36 Labs: Laboratory Results - last 48 hr 01/19/21 01/20/21 01/20/21 22:29 05:55 08:29 POC Glucose 112 111 Estimat Average Glucose 117 Hemoglobin A1c % 5.7 01/20/21 01/20/21 01/20/21 12:08 16:53 21:21 POC Glucose 127 H 140 H 89 Estimat Average Glucose Hemoglobin A1c % Imaging Radiology Impressions: ITS Impressions Modified Barium Swallow 01/07/21 14:15 IMPRESSION: Laryngeal penetration and occasional aspiration as described above. Please refer to speech pathology report for details. Chest X-Ray 01/10/21 09:11 IMPRESSION: Severe chronic interstitial lung disease. No evidence of acute superimposed pneumonitis. Medications Medications Current Medications Generic Name Dose Route Start Last Admin Trade Name Freq PRN Reason Stop Dose Admin Acetaminophen 650 mg 01/09/21 15:51 01/16/21 17:00 Acetaminophen 325 Mg Tablet G-TUBE 650 mg Q4H PRN Administration Pain, Mild (Pain Scale 1-3) Al Hydroxide/Mg Hydroxide 30 ml 01/08/21 15:46 Magnesium Hydrox/Alum Hydrox 30 Ml Oral.Susp G-TUBE Q4H PRN Dyspepsia Amphetamine/Dextroamphetamine 2.5 mg 01/20/21 09:00 01/20/21 08:44 Amphetamine Mixed Salts 10 Mg Tablet G-TUBE 2.5 mg DAILY DOMINICK Administration Budesonide 2 puff 12/31/20 20:00 01/20/21 21:13 Budesonide 180 Mcg Aer.Pow.Ba INHALE 2 puff RBID DOMINICK Administration Clotrimazole 1 appl 01/06/21 21:00 01/20/21 21:13 Clotrimazole 1 % Cream 15 Gm Tube TOPICAL 1 appl BID DOMINICK Administration Protocol Dexamethasone 1 mg 01/09/21 09:00 01/20/21 08:45 Dexamethasone 0.5 Mg Tablet G-TUBE 1 mg DAILY DOMINICK Administration Doxycycline Hyclate 100 mg 01/16/21 19:54 01/20/21 20:56 Doxycycline Hyclate 100 Mg Tablet G-TUBE 100 mg Q12H DOMINICK Administration Famotidine 20 mg 01/09/21 09:00 01/20/21 08:45 Famotidine 20 Mg Tablet G-TUBE 20 mg DAILY DOMINICK Administration Lorazepam 0.5 mg 01/18/21 10:29 01/20/21 18:40 Lorazepam 0.5 Mg Tablet PO 0.5 mg Q4H PRN Administration anxiety/restlessness Mirtazapine 7.5 mg 01/14/21 21:00 01/20/21 20:55 Mirtazapine 7.5 Mg Tablet G-TUBE 7.5 mg BEDTIME DOMINICK Administration Patient Own 1 each 01/08/21 21:00 Medication ( G-TUBE Nintedanib 150) BID DOMINICK Nystatin 400,000 unit 01/15/21 17:00 01/20/21 20:55 Nystatin Oral Susp 500,000 Unit/5 Ml Oral.Susp PO 400,000 unit QID DOMINICK Administration Protocol Omeprazole 40 mg 01/08/21 16:30 01/20/21 16:54 Omeprazole 20 Mg/10 Ml Susp.Recon G-TUBE 40 mg BID@0630,1630 DOMINICK Administration Ondansetron HCl 4 mg 01/08/21 12:53 Ondansetron Hcl 4 Mg/2 Ml Vial IVPUSH ONCE PRN Nausea and Vomiting Prochlorperazine Edisylate 5 mg 12/31/20 23:21 01/06/21 09:42 Prochlorperazine Edisylate 10 Mg/2 Ml Vial IM 5 mg Q6H PRN Administration Nausea and Vomiting Quetiapine Fumarate 12.5 mg 01/08/21 21:00 01/20/21 20:56 Quetiapine Fumarate 25 Mg Tablet G-TUBE 12.5 mg BEDTIME DOMINICK Administration Thiamine HCl 100 mg 01/09/21 09:00 01/20/21 08:45 Thiamine Hcl 100 Mg Tablet G-TUBE 100 mg DAILY DOMINICK Administration Allergies Allergies Allergy/AdvReac Type Severity Reaction Status Date / Time Sulfa (Sulfonamide Allergy Unknown UNKNOWN Verified 12/01/20 09:47 Antibiotics) [SULFA (SULFONAMIDE ANTIBIOTICS)] zoster vaccine live Allergy Hives Verified 12/01/20 09:47 Assessment & Plan Assessment & Plan (1) Dysphagia: Qualifiers: Dysphagia type: unspecified Qualified Code(s): R13.10 - Dysphagia, unspecified Status: Acute Code(s): R13.10 - Dysphagia, unspecified (2) Pulmonary fibrosis: Status: Acute Code(s): J84.10 - Pulmonary fibrosis, unspecified (3) Chronic respiratory failure: Qualifiers: Respiratory failure complication: hypoxia Qualified Code(s): J96.11 - Chronic respiratory failure with hypoxia Status: Acute Code(s): J96.10 - Chronic respiratory failure, unspecified whether with hypoxia or hypercapnia (4) Bipolar I disorder with depression, severe: Status: Acute Code(s): F31.4 - Bipolar disorder, current episode depressed, severe, without psychotic features (5) Severe protein-calorie malnutrition: Status: Acute Code(s): E43 - Unspecified severe protein-calorie malnutrition Assessment and Plan: IMPRESSION: depression, vilazadone stopped secondary to anxiety low dose reconsider ect restart low dose adderall 2.5 mg started Protein calorie malnutrition Continue PEG labs ordered spoke with dietary inc flow rate Pulmonary fibrosis aspiration continue NPO r/o sterois insuff acth stim test Greater than 50% of the session was spent on counseling and/or coordination of care Reason for contiued inpatient stay Substantial Risk for: harm to self, inability to function, rapid decompensation and med/psych decompensation
[2021-01-21 05:57] LABS: Glucose, Whole Blood 130 mg/dL (60-115)
[2021-01-21 07:08] VITALS: BP 106/65; PULSE 76; RESP 24; TEMP 36.6; O2SAT 95
[2021-01-21 08:32] LABS: Cortisol 30 Minute 16.3 mcg/dL; Cortisol 30 Minute Time 1206; Cortisol 60 Minute 19.8 mcg/dL; Cortisol 60 Minute Time 3 1232; Cortisol Baseline 10.3 mcg/dL
[2021-01-21] MEDS: Nystatin Oral Susp 500,000 UNIT/5 ML ORAL.SUSP 400000 UNIT PO ×4 (08:46→20:55)
[2021-01-21] MEDS: Budesonide 180 MCG AER.POW.BA 2 PUFF INHALE ×2 (08:46→21:20)
[2021-01-21] MEDS: Clotrimazole 1 % Cream 15 GM TUBE 1 APPL TOPICAL ×2 (08:46→21:37)
[2021-01-21] MEDS: Amphetamine Mixed Salts 10 MG TABLET 2.5 MG G-TUBE (08:47)
[2021-01-21] MEDS: Thiamine HCL 100 MG TABLET G-TUBE (08:47)
[2021-01-21] MEDS: Famotidine 20 MG TABLET G-TUBE (08:47)
[2021-01-21] MEDS: LORazepam 0.5 MG TABLET PO ×4 (08:47→20:56)
[2021-01-21 11:42] LABS: Glucose, Whole Blood 130 mg/dL (60-115)
[2021-01-21 12:00] VITALS: BP 120/71; PULSE 74; RESP 18; TEMP 36.6; O2SAT 96
[2021-01-21 14:24] LABS: Med (ACTH) Time 1132
[2021-01-21 16:00] VITALS: BP 108/73; PULSE 77; RESP 18; TEMP 36.7; O2SAT 95
[2021-01-21 19:00] LABS: Glucose, Whole Blood 118 mg/dL (60-115)
[2021-01-21 20:49] LABS: Glucose, Whole Blood 100 mg/dL (60-115)
[2021-01-21] MEDS: QUEtiapine Fumarate 25 MG TABLET 12.5 MG G-TUBE (20:55)
[2021-01-21] MEDS: Mirtazapine 7.5 MG TABLET G-TUBE (20:56)
--- NOTE | 2021-01-21 21:32 | P.PNPSI_ITS ---
Subjective Subjective Date of Service: 01/22/21 Reason For Visit: severe depression Subjective Notes: Conditional Voluntary Interim History: pt depressed constricted in despair hopeless helpless ACTH stimulation test completed Medication Compliance: Yes Side effects from medications: Yes Mental Status Exam Mental Status Exam Patient Appearance: Fatigued and Disheveled Patient Orientation: Person, Place, Time and Situation Level of Consciousness: Drowsy Patient Behavior: Passive Mood Description: Depressed, Anxious, Sad and Apprehensive Affect Description: Depressed, Anxious and Apprehensive Ability to Follow Directions: Good Speech Pattern: Clear, Impoverished and Monotone Hallucinations: None Delusions: Not Present Thought Process: Rumination Thought Content: positive for Preoccupation, positive for Suicidal Ideation (passive ) and negative for Homicidal Ideation Depressive Symptoms: Increased Anxiety, Increased Irritability, Thoughts of /Suicide and Difficulty Concentrating Judgement: Fair Diagnostics Vital Signs (24Hr): Vital Signs - 24 hr 01/21/21 07:08 01/21/21 12:00 01/21/21 16:00 Temperature 98 F 97.9 F 98.1 F Pulse Rate 76 74 77 Respiratory Rate 24 H 18 18 Blood Pressure 106/65 120/71 108/73 Pulse Oximetry 95 96 95 Body Mass Index 17.6 Labs Results: 01/15/21 14:51 01/18/21 15:36 Labs: Laboratory Results - last 48 hr 01/19/21 01/20/21 01/20/21 22:29 05:55 08:29 POC Glucose 112 111 Estimat Average Glucose 117 Hemoglobin A1c % 5.7 Cortisol Baseline Cortisol 30 Minute Cortisol 60 Minute ACTH Resp to [facility] Cortisol Sreekanth Time 1 Cortisol Sreekanth Time 2 Cortisol Sreekanth Time 3 ACTH Comment 01/20/21 01/20/21 01/20/21 12:08 12:32 16:53 POC Glucose 127 H 140 H Estimat Average Glucose Hemoglobin A1c % Cortisol Baseline 10.3 Cortisol 30 Minute 16.3 L Cortisol 60 Minute 19.8 L ACTH Resp to [facility] 1132 Cortisol Sreekanth Time 1 0829 Cortisol Sreekanth Time 2 1206 Cortisol Sreekanth Time 3 1232 ACTH Comment See Below 01/20/21 01/21/21 01/21/21 21:21 05:43 11:36 POC Glucose 89 130 H 130 H Estimat Average Glucose Hemoglobin A1c % Cortisol Baseline Cortisol 30 Minute Cortisol 60 Minute ACTH Resp to [facility] Cortisol Sreekanth Time 1 Cortisol Sreekanth Time 2 Cortisol Sreekanth Time 3 ACTH Comment 01/21/21 01/21/21 18:05 20:09 POC Glucose 118 H 100 Estimat Average Glucose Hemoglobin A1c % Cortisol Baseline Cortisol 30 Minute Cortisol 60 Minute ACTH Resp to [facility] Cortisol Sreekanth Time 1 Cortisol Sreekanth Time 2 Cortisol Sreekanth Time 3 ACTH Comment Imaging Radiology Impressions: ITS Impressions Modified Barium Swallow 01/07/21 14:15 IMPRESSION: Laryngeal penetration and occasional aspiration as described above. Please refer to speech pathology report for details. Chest X-Ray 01/10/21 09:11 IMPRESSION: Severe chronic interstitial lung disease. No evidence of acute superimposed pneumonitis. Medications Medications Current Medications Generic Name Dose Route Start Last Admin Trade Name Freq PRN Reason Stop Dose Admin Acetaminophen 650 mg 01/09/21 15:51 01/16/21 17:00 Acetaminophen 325 Mg Tablet G-TUBE 650 mg Q4H PRN Administration Pain, Mild (Pain Scale 1-3) Al Hydroxide/Mg Hydroxide 30 ml 01/08/21 15:46 Magnesium Hydrox/Alum Hydrox 30 Ml Oral.Susp G-TUBE Q4H PRN Dyspepsia Amphetamine/Dextroamphetamine 2.5 mg 01/22/21 08:00 Amphetamine Mixed Salts 10 Mg Tablet G-TUBE BID@0800,1300 [facility] Budesonide 2 puff 12/31/20 20:00 01/21/21 21:20 Budesonide 180 Mcg Aer.Pow.Ba INHALE 2 puff RBID DOMINICK Administration Clotrimazole 1 appl 01/06/21 21:00 01/21/21 08:46 Clotrimazole 1 % Cream 15 Gm Tube TOPICAL 1 appl BID [facility] Administration Protocol Dexamethasone 1 mg 01/09/21 09:00 01/21/21 08:47 Dexamethasone 0.5 Mg Tablet G-TUBE 1 mg DAILY [facility] Administration Doxycycline Hyclate 100 mg 01/16/21 19:54 01/21/21 20:55 Doxycycline Hyclate 100 Mg Tablet G-TUBE 100 mg Q12H [facility] Administration Famotidine 20 mg 01/09/21 09:00 01/21/21 08:47 Famotidine 20 Mg Tablet G-TUBE 20 mg DAILY [facility] Administration Lorazepam 0.5 mg 01/18/21 10:29 01/21/21 20:56 Lorazepam 0.5 Mg Tablet PO 0.5 mg Q4H PRN Administration anxiety/restlessness Mirtazapine 7.5 mg 01/14/21 21:00 01/21/21 20:56 Mirtazapine 7.5 Mg Tablet G-TUBE 7.5 mg BEDTIME [facility] Administration Patient Own 1 each 01/08/21 21:00 Medication ( G-TUBE Nintedanib 150) BID [facility] Nystatin 400,000 unit 01/15/21 17:00 01/21/21 20:55 Nystatin Oral Susp 500,000 Unit/5 Ml Oral.Susp PO 400,000 unit QID [facility] Administration Protocol Omeprazole 40 mg 01/08/21 16:30 01/21/21 17:10 Omeprazole 20 Mg/10 Ml Susp.Recon G-TUBE 40 mg BID@0630,1630 [facility] Administration Ondansetron HCl 4 mg 01/08/21 12:53 Ondansetron Hcl 4 Mg/2 Ml Vial IVPUSH ONCE PRN Nausea and Vomiting Prochlorperazine Edisylate 5 mg 12/31/20 23:21 01/06/21 09:42 Prochlorperazine Edisylate 10 Mg/2 Ml Vial IM 5 mg Q6H PRN Administration Nausea and Vomiting Quetiapine Fumarate 12.5 mg 01/08/21 21:00 01/21/21 20:55 Quetiapine Fumarate 25 Mg Tablet G-TUBE 12.5 mg BEDTIME DOMIN[facility] Administration Thiamine HCl 100 mg 01/09/21 09:00 01/21/21 08:47 Thiamine Hcl 100 Mg Tablet G-TUBE 100 mg DAILY [facility]IN[facility] Administration Allergies Allergies Allergy/AdvReac Type Severity Reaction Status Date / Time Sulfa (Sulfonamide Allergy Unknown UNKNOWN Verified 12/01/20 09:47 Antibiotics) [SULFA (SULFONAMIDE ANTIBIOTICS)] zoster vaccine live Allergy Hives Verified 12/01/20 09:47 Assessment & Plan Assessment & Plan (1) Dysphagia: Qualifiers: Dysphagia type: unspecified Qualified Code(s): R13.10 - Dysphagia, unspecified Status: Acute Code(s): R13.10 - Dysphagia, unspecified (2) Pulmonary fibrosis: Status: Acute Code(s): J84.10 - Pulmonary fibrosis, unspecified (3) Chronic respiratory failure: Qualifiers: Respiratory failure complication: hypoxia Qualified Code(s): J96.11 - Chronic respiratory failure with hypoxia Status: Acute Code(s): J96.10 - Chronic respiratory failure, unspecified whether with hypoxia or hype rcapnia (4) Bipolar I disorder with depression, severe: Status: Acute Code(s): F31.4 - Bipolar disorder, current episode depressed, severe, without psychotic features (5) Severe protein-calorie malnutrition: Status: Acute Code(s): E43 - Unspecified severe protein-calorie malnutrition Assessment and Plan: IMPRESSION: Reconsider ECT Increase Adderall back to 2.5 b.i.d. patient appeared better with this continue mirtazapine Protein calorie malnutrition Continue PEG labs ordered spoke with dietary inc flow rate reconsult to inc again Pulmonary fibrosis aspiration continue NPO r/o steroid insuff acth stim test Case reviewed with Dr. Turcios adrenal insuff coordinate with Nephrology/endocrine Greater than 50% of the session was spent on counseling and/or coordination of care Reason for contiued inpatient stay Substantial Risk for: harm to self, inability to function, rapid decompensation and med/psych decompensation
[2021-01-21 22:07] VITALS: BMI 17.5
[2021-01-22 05:30] VITALS: BP 117/74; PULSE 76; RESP 22; TEMP 36.6; O2SAT 96
[2021-01-22 05:45] LABS: Glucose, Whole Blood 119 mg/dL (60-115)
[2021-01-22 08:00] VITALS: BP 119/69; PULSE 77; RESP 22; O2SAT 95
--- NOTE | 2021-01-22 08:04 | PM.PNNEP ---
Subjective Subjective Date of Service: 01/22/21 Principal diagnosis: Aspiration Interval history: Events noted Physical Exam Vital Signs: Vital Signs: Last Vital Signs Temp 97.8 F 01/22/21 05:30 Pulse 76 01/22/21 05:30 Resp 22 H 01/22/21 05:30 BP 117/74 01/22/21 05:30 Pulse Ox 96 01/22/21 05:30 Body Mass Index 17.5 Objective Data Labs CBC & Chem 7: 01/15/21 14:51 01/18/21 15:36 Labs: Laboratory Results - last 24 hr 01/20/21 01/21/21 01/21/21 12:32 11:36 18:05 POC Glucose 130 H 118 H Cortisol Baseline 10.3 Cortisol 30 Minute 16.3 L Cortisol 60 Minute 19.8 L ACTH Resp to [facility] 1132 Cortisol Sreekanth Time 1 0829 Cortisol Sreekanth Time 2 1206 Cortisol Sreekanth Time 3 1232 ACTH Comment See Below 01/21/21 01/22/21 20:09 05:36 POC Glucose 100 119 H Cortisol Baseline Cortisol 30 Minute Cortisol 60 Minute ACTH Resp to [facility] Cortisol Sreekanth Time 1 Cortisol Sreekanth Time 2 Cortisol Sreekanth Time 3 ACTH Comment Microbiology Microbiology Results: Microbiology 01/10/21 09:26 Blood - Venous Blood Culture - Final No growth after 5 days. 01/10/21 09:26 Blood - Venous Blood Culture - Final No growth after 5 days. Assessment & Plan Assessment and plan (1) Hyponatremia: Problem details: Chronic and asymptomatic ACTH stim test suggestive of adrenal insufficiency Restrict hypotonic fluids ( oral free water to 1 L per 24 hrs) Goal pNa > 130 mmol/dL Renal function has been stable. Currently on Dexamethasone and would continue at current dose and monitor serum sodium levels Discussed with , who prefers Hydrocortisone There will switch Decadron to Hydrocortisone TID Status: Acute Time Spent With Patient Time: Total time spent is greater than 50% in coordination of care (as documented) at patient's floor/unit and/or counseling patient:
--- NOTE | 2021-01-22 09:15 | P.PNIM_ITS ---
Subjective Subjective Date of Service: 01/22/21 Interval History: no complaints Cardiovascular Cardiovascular: Reports no additional cardiovascular complaints Respiratory Respiratory: Reports no additional respiratory complaints Physical Exam Vital Signs: Vital Signs: Last Vital Signs Temp 97.8 F 01/22/21 05:30 Pulse 76 01/22/21 05:30 Resp 22 H 01/22/21 05:30 BP 117/74 01/22/21 05:30 Pulse Ox 96 01/22/21 05:30 Body Mass Index 17.5 General: AO X 3, frail (appears improved since previous exam) Resp: Crackles CVS: S1,S2,RRR GI: soft, non tender, non distended Neuro: motor grossly weak, no cogwheel rigidity or bradykinesia Psych: flat affect Objective Data Current Medications Generic Name Dose Route Start Last Admin Trade Name Freq PRN Reason Stop Dose Admin Acetaminophen 650 mg 01/09/21 15:51 01/16/21 17:00 Acetaminophen 325 Mg Tablet G-TUBE 650 mg Q4H PRN Administration Pain, Mild (Pain Scale 1-3) Al Hydroxide/Mg Hydroxide 30 ml 01/08/21 15:46 Magnesium Hydrox/Alum Hydrox 30 Ml Oral.Susp G-TUBE Q4H PRN Dyspepsia Amphetamine/Dextroamphetamine 2.5 mg 01/22/21 08:00 Amphetamine Mixed Salts 10 Mg Tablet G-TUBE BID@0800,1300 [facility] Budesonide 2 puff 12/31/20 20:00 01/21/21 21:20 Budesonide 180 Mcg Aer.Pow.Ba INHALE 2 puff RBID DOMINICK Administration Clotrimazole 1 appl 01/06/21 21:00 01/21/21 21:37 Clotrimazole 1 % Cream 15 Gm Tube TOPICAL 1 appl BID DOMINICK Administration Protocol Dexamethasone 1 mg 01/09/21 09:00 01/21/21 08:47 Dexamethasone 0.5 Mg Tablet G-TUBE 1 mg DAILY DOMIN[facility] Administration Doxycycline Hyclate 100 mg 01/16/21 19:54 01/21/21 20:55 Doxycycline Hyclate 100 Mg Tablet G-TUBE 100 mg Q12H [facility] Administration Famotidine 20 mg 01/09/21 09:00 01/21/21 08:47 Famotidine 20 Mg Tablet G-TUBE 20 mg DAILY DOMINICK Administration Lorazepam 0.5 mg 01/18/21 10:29 01/21/21 20:56 Lorazepam 0.5 Mg Tablet PO 0.5 mg Q4H PRN Administration anxiety/restlessness Mirtazapine 7.5 mg 01/14/21 21:00 01/21/21 20:56 Mirtazapine 7.5 Mg Tablet G-TUBE 7.5 mg BEDTIME DOMINICK Administration Patient Own 1 each 01/08/21 21:00 Medication ( G-TUBE Nintedanib 150) BID DOM[facility] Nystatin 400,000 unit 01/15/21 17:00 01/21/21 20:55 Nystatin Oral Susp 500,000 Unit/5 Ml Oral.Susp PO 400,000 unit QID DOMINICK Administration Protocol Omeprazole 40 mg 01/08/21 16:30 01/21/21 17:10 Omeprazole 20 Mg/10 Ml Susp.Recon G-TUBE 40 mg BID@0630,1630 [facility] Administration Ondansetron HCl 4 mg 01/08/21 12:53 Ondansetron Hcl 4 Mg/2 Ml Vial IVPUSH ONCE PRN Nausea and Vomiting Prochlorperazine Edisylate 5 mg 12/31/20 23:21 01/06/21 09:42 Prochlorperazine Edisylate 10 Mg/2 Ml Vial IM 5 mg Q6H PRN Administration Nausea and Vomiting Quetiapine Fumarate 12.5 mg 01/08/21 21:00 01/21/21 20:55 Quetiapine Fumarate 25 Mg Tablet G-TUBE 12.5 mg BEDTIME DOMINICK Administration Thiamine HCl 100 mg 01/09/21 09:00 01/21/21 08:47 Thiamine Hcl 100 Mg Tablet G-TUBE 100 mg DAILY DOMINICK Administration Labs CBC & Chem 7: 01/15/21 14:51 01/18/21 15:36 Microbiology Microbiology Results: Microbiology 01/10/21 09:26 Blood - Venous Blood Culture - Final No growth after 5 days. 01/10/21 09:26 Blood - Venous Blood Culture - Final No growth after 5 days. Assessment and Plan (1) Adrenal insufficiency: Status: Acute Assessment and Plan: 80M with pmh of dysphagia, depression, ILD, currently in inpatient psychiatry for severe depression. was noted to have dysphagia and recently underwent Gtube placement for nutrition. noted to have positive acth stimulation test adrenal insufficiency ACTH stimulation test positive agree with nephrology recs would continue with dexamethasone and free fluid restriction
[2021-01-22] MEDS: Thiamine HCL 100 MG TABLET G-TUBE (09:24)
[2021-01-22] MEDS: Amphetamine Mixed Salts 10 MG TABLET 2.5 MG G-TUBE ×2 (09:24→13:45)
[2021-01-22] MEDS: Famotidine 20 MG TABLET G-TUBE (09:24)
[2021-01-22] MEDS: Budesonide 180 MCG AER.POW.BA 2 PUFF INHALE ×2 (09:26→20:20)
[2021-01-22] MEDS: Clotrimazole 1 % Cream 15 GM TUBE 1 APPL TOPICAL ×2 (09:26→20:21)
[2021-01-22] MEDS: Nystatin Oral Susp 500,000 UNIT/5 ML ORAL.SUSP 400000 UNIT PO ×4 (09:28→20:20)
[2021-01-22] MEDS: LORazepam 0.5 MG TABLET PO ×4 (09:45→22:57)
[2021-01-22 12:00] VITALS: BP 136/72; PULSE 78; RESP 18; O2SAT 96
[2021-01-22 12:47] LABS: Glucose, Whole Blood 152 mg/dL (60-115)
--- NOTE | 2021-01-22 13:32 | MHC.CLN ---
Addendum entered by Lori Tran RD 01/22/21 13:41: RECOMMEND CHANGE IN TF FORMULA TO MEET FLUID RESTRICTION GOAL PER NEPHROLOGY RECOMMEND TF OSMOLITE 1.5 AT MAX GOAL RATE 50CC/HR TO PROVIDE 1800KCALS (35KCALS/KG), 75G PROTEIN (1.5G/KG), 914CC FREE WATER FROM FORMULA MONITOR TOLERANCE, RESIDUALS AND LYTES Original Note: F/U REVIEWED WTS 50.9KG REMAINS STABLE NO NEW LABS NOTED NEPHROLOGY RECOMMENDING FLUID RESTRICTION 1L PER DAY 01/22/21 PT RECEIVING TF JEVITY AT MAX GOAL RATE 70CC/HR WITH 120CC FREE WATER Q SHIFT PROVIDES 1781KCALS (34KCALS/KG), 74G PROTEIN (1.4G/KG), 1762CC TOTAL WATER FROM FORMULA AND FLUSH (34CC/KG) FORMULA TO PROMOTE WEIGHT GAIN; GOAL 1-2# PER WEEK WILL D/C FREE WATER FLUSHES R/T HYPONATREMIA, HOWEVER PT TO RECEIVE 1402CC FREE WATER FROM TF FORMULA CAN CHANGE FORMULA IF NEEDED MONITOR TOLERANCE, RESIDUALS AND LYTES STRICT WEEKLY WEIGHTS; RECOMMEND USING SAME SCALE (STANDING SCALE VS BED SCALE CAN EFFECT ACCURACY) WHEN OBTAINING WEIGHTS FOLLOWING
[2021-01-22 16:00] VITALS: BP 111/69; PULSE 75; RESP 20; TEMP 36.4; O2SAT 95
[2021-01-22 16:54] LABS: Glucose, Whole Blood 126 mg/dL (60-115)
[2021-01-22] MEDS: Mirtazapine 7.5 MG TABLET G-TUBE (20:20)
[2021-01-22 20:24] LABS: Glucose, Whole Blood 113 mg/dL (60-115)
--- NOTE | 2021-01-22 23:41 | HO.PSYCHPN ---
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 by Nephrology Medication Compliance: Yes Side effects from medications: Yes Attending Groups: No Mental Status Exam Mental Status Exam Patient Appearance: Fatigued and Disheveled Patient Orientation: Person, Place, Time and Situation Level of Consciousness: Drowsy Patient Behavior: Passive Mood Description: Depressed, Anxious, Sad and Apprehensive Affect Description: Depressed, Anxious and Apprehensive Ability to Follow Directions: Good Speech Pattern: Clear, Impoverished and Monotone Hallucinations: None Delusions: Not Present Thought Process: Rumination Thought Content: positive for Preoccupation, positive for Suicidal Ideation (passive ) and negative for Homicidal Ideation Depressive Symptoms: Increased Anxiety, Increased Irritability, Thoughts of /Suicide and Difficulty Concentrating Judgement: Fair Diagnostics Vital Signs (24Hr): Vital Signs - 24 hr 01/22/21 05:30 01/22/21 08:00 01/22/21 12:00 Temperature 97.8 F Pulse Rate 76 77 78 Respiratory Rate 22 H 22 H 18 Blood Pressure 117/74 119/69 136/72 Pulse Oximetry 96 95 96 01/22/21 16:00 Temperature 97.5 F Pulse Rate 75 Respiratory Rate 20 Blood Pressure 111/69 Pulse Oximetry 95 Body Mass Index 17.5 Labs Results: 01/15/21 14:51 01/18/21 15:36 Labs: Laboratory Results - last 48 hr 01/20/21 01/21/21 01/21/21 12:32 05:43 11:36 POC Glucose 130 H 130 H Cortisol Baseline 10.3 Cortisol 30 Minute 16.3 L Cortisol 60 Minute 19.8 L ACTH Resp to [facility] 1132 Cortisol Sreekanth Time 1 0829 Cortisol Sreekanth Time 2 1206 Cortisol Sreekanth Time 3 1232 ACTH Comment See Below 01/21/21 01/21/21 01/22/21 18:05 20:09 05:36 POC Glucose 118 H 100 119 H Cortisol Baseline Cortisol 30 Minute Cortisol 60 Minute ACTH Resp to [facility] Cortisol Sreekanth Time 1 Cortisol Sreekanth Time 2 Cortisol Sreekanth Time 3 ACTH Comment 01/22/21 01/22/21 01/22/21 12:41 16:50 20:10 POC Glucose 152 H 126 H 113 Cortisol Baseline Cortisol 30 Minute Cortisol 60 Minute ACTH Resp to [facility] Cortisol Sreekanth Time 1 Cortisol Sreekanth Time 2 Cortisol Sreekanth Time 3 ACTH Comment Imaging Radiology Impressions: ITS Impressions Modified Barium Swallow 01/07/21 14:15 IMPRESSION: Laryngeal penetration and occasional aspiration as described above. Please refer to speech pathology report for details. Chest X-Ray 01/10/21 09:11 IMPRESSION: Severe chronic interstitial lung disease. No evidence of acute superimposed pneumonitis. Medications Medications Current Medications Generic Name Dose Route Start Last Admin Trade Name Freq PRN Reason Stop Dose Admin Acetaminophen 650 mg 01/09/21 15:51 01/16/21 17:00 Acetaminophen 325 Mg Tablet G-TUBE 650 mg Q4H PRN Administration Pain, Mild (Pain Scale 1-3) Al Hydroxide/Mg Hydroxide 30 ml 01/08/21 15:46 Magnesium Hydrox/Alum Hydrox 30 Ml Oral.Susp G-TUBE Q4H PRN Dyspepsia Amphetamine/Dextroamphetamine 2.5 mg 01/22/21 08:00 01/22/21 13:45 Amphetamine Mixed Salts 10 Mg Tablet G-TUBE 2.5 mg BID@0800,1300 [facility] Administration Budesonide 2 puff 12/31/20 20:00 01/22/21 20:20 Budesonide 180 Mcg Aer.Pow.Ba INHALE 2 puff RBID DOMINICK Administration Clotrimazole 1 appl 01/06/21 21:00 01/22/21 20:21 Clotrimazole 1 % Cream 15 Gm Tube TOPICAL 1 appl BID DOMINICK Administration Protocol Doxycycline Hyclate 100 mg 01/16/21 19:54 01/22/21 18:21 Doxycycline Hyclate 100 Mg Tablet G-TUBE 100 mg Q12H [facility] Administration Famotidine 20 mg 01/09/21 09:00 01/22/21 09:24 Famotidine 20 Mg Tablet G-TUBE 20 mg DAILY DOMINICK Administration Fluoxetine HCl 2 mg 01/23/21 09:00 Fluoxetine Hcl Oral Solution 20 Mg/5 Ml Solution PO DAILY DOMINICK Hydrocortisone 10 mg 01/23/21 07:00 Hydrocortisone 10 Mg Tablet PO DAILY@0700 [facility] Hydrocortisone 2.5 mg 01/23/21 19:00 Hydrocortisone 10 Mg Tablet PO DAILY@1900 [facility] Hydrocortisone 5 mg 01/23/21 13:00 Hydrocortisone 10 Mg Tablet PO DAILY@1300 [facility] Lorazepam 0.5 mg 01/18/21 10:29 01/22/21 22:57 Lorazepam 0.5 Mg Tablet PO 0.5 mg Q4H PRN Administration anxiety/restlessness Mirtazapine 7.5 mg 01/14/21 21:00 01/22/21 20:20 Mirtazapine 7.5 Mg Tablet G-TUBE 7.5 mg BEDTIME DOMINICK Administration Patient Own 1 each 01/08/21 21:00 Medication ( G-TUBE Nintedanib 150) BID [facility] Nystatin 400,000 unit 01/15/21 17:00 01/22/21 20:20 Nystatin Oral Susp 500,000 Unit/5 Ml Oral.Susp PO 400,000 unit QID DOMINICK Administration Protocol Omeprazole 40 mg 01/08/21 16:30 01/22/21 15:59 Omeprazole 20 Mg/10 Ml Susp.Recon G-TUBE 40 mg BID@0630,1630 DOMINICK Administration Ondansetron HCl 4 mg 01/08/21 12:53 Ondansetron Hcl 4 Mg/2 Ml Vial IVPUSH ONCE PRN Nausea and Vomiting Prochlorperazine Edisylate 5 mg 12/31/20 23:21 01/06/21 09:42 Prochlorperazine Edisylate 10 Mg/2 Ml Vial IM 5 mg Q6H PRN Administration Nausea and Vomiting Thiamine HCl 100 mg 01/09/21 09:00 01/22/21 09:24 Thiamine Hcl 100 Mg Tablet G-TUBE 100 mg DAILY DOMINICK Administration Allergies Allergies Allergy/AdvReac Type Severity Reaction Status Date / Time Sulfa (Sulfonamide Allergy Unknown UNKNOWN Verified 12/01/20 09:47 Antibiotics) [SULFA (SULFONAMIDE ANTIBIOTICS)] zoster vaccine live Allergy Hives Verified 12/01/20 09:47 Assessment & Plan Assessment & Plan (1) Dysphagia: Qualifiers: Dysphagia type: unspecified Qualified Code(s): R13.10 - Dysphagia, unspecified Status: Acute Code(s): R13.10 - Dysphagia, unspecified (2) Pulmonary fibrosis: Status: Acute Code(s): J84.10 - Pulmonary fibrosis, unspecified (3) Chronic respiratory failure: Qualifiers: Respiratory failure complication: hypoxia Qualified Code(s): J96.11 - Chronic respiratory failure with hypoxia Status: Acute Code(s): J96.10 - Chronic respiratory failure, unspecified whether with hypoxia or hypercapnia (4) Bipolar I disorder with depression, severe: Status: Acute Code(s): F31.4 - Bipolar disorder, current episode depressed, severe, without psychotic features (5) Severe protein-calorie malnutrition: Status: Acute Code(s): E43 - Unspecified severe protein-calorie malnutrition Assessment and Plan: IMPRESSION: ECT Ordered for 01/25/2021 hopefully the patient will show improvement with starting hydrocortisone check electrolytes Protein calorie malnutrition Continue PEG labs ordered spoke with dietary check electrolytes Pulmonary fibrosis aspiration continue NPO r/o steroid insuff acth stim test Case reviewed with Dr. Turcios adrenal insuff coordinate with Nephrology/endocrine started on hydrocortisone Greater than 50% of the session was spent on counseling and/or coordination of care Reason for contiued inpatient stay Substantial Risk for: inability to function, rapid decompensation and med/psych decompensation
[2021-01-23] VITALS: RESP 22
[2021-01-23 05:00] VITALS: BP 121/71; PULSE 73; RESP 20; TEMP 36.3; O2SAT 95
[2021-01-23] MEDS: LORazepam 0.5 MG TABLET PO ×4 (05:00→21:14)
[2021-01-23 05:19] LABS: Glucose, Whole Blood 121 mg/dL (60-115)
[2021-01-23 08:00] VITALS: BP 132/79; PULSE 84; RESP 20; O2SAT 96
[2021-01-23 08:58] LABS: Alanine Aminotransferase 45 U/L (0-40); Albumin Level 2.8 g/dL (3.5-5.0); Alkaline Phosphatase 154 U/L (39-117); Anion Gap 11 (12-20); Aspartate Amino Transferase 27 U/L (5-37); Bilirubin Total 0.2 mg/dL (0.0-1.0); Blood Urea Nitrogen 20 mg/dL (9-16); Calcium 8.7 mg/dL (8.4-10.2); Carbon Dioxide 31 mmol/L (22-29); Chloride 96 mmol/L (96-108); Creatinine Clr Calc Pharmacy 51.9; Estimated Glomerular Filt Rate > 60; Glucose Fasting 125 mg/dL (60-99); Potassium 4.6 mmol/L (3.3-5.1); Sodium 133 mmol/L (135-145); Total Protein 6.1 g/dL (6.5-8.0)
[2021-01-23] MEDS: Nystatin Oral Susp 500,000 UNIT/5 ML ORAL.SUSP 400000 UNIT PO ×4 (09:35→21:16)
[2021-01-23] MEDS: FLUoxetine HCl Oral Solution 20 MG/5 ML SOLUTION PO (09:36)
[2021-01-23] MEDS: Famotidine 20 MG TABLET G-TUBE (09:37)
[2021-01-23] MEDS: Hydrocortisone 10 MG TABLET PO (09:37)
[2021-01-23] MEDS: Amphetamine Mixed Salts 10 MG TABLET 2.5 MG G-TUBE ×2 (09:38→13:52)
[2021-01-23] MEDS: Thiamine HCL 100 MG TABLET G-TUBE (09:38)
[2021-01-23] MEDS: Clotrimazole 1 % Cream 15 GM TUBE 1 APPL TOPICAL ×2 (09:38→21:17)
[2021-01-23] MEDS: Budesonide 180 MCG AER.POW.BA 2 PUFF INHALE ×2 (09:38→21:17)
--- NOTE | 2021-01-23 10:58 | HO.PSYCHPN ---
Subjective Subjective Date of Service: 01/24/21 Reason For Visit: severe depression Interim History: Pt lying in bed, with some mild difficulty breathing when talking. He reports slight improve in mood in that he is more hopeful. He denies SI/HI. He reports sleeping okay. No physical concerns- walks with walker and assistance from staff. He reports enjoying his family company when they come to visit everyday. Per nursing- o2 sat while sitting 96%, on room air, he is on oxygen 1.5L when ambulating. MSE Appearance: thin, fair hygiene, mild SOB Behavior: calm, cooperative Psychomotor: no agitation or retardation noted Speech: clear, normal rate/rhythm/volume, spontaneous TP: linear TC: no signs of psychosis, feeling more hopeful Mood: slightly better Affect:slightly brighter, but blunted SI:denies HI:denies AH/VH:none Delusions:none Insight/judgment:fair x 2. Memory/cog: alert, oriented x 3. not formally tested. Review of Systems Review of Systems As reported in HPI Constitutional: Reports fatigue, Reports lethargy, Reports malaise, Denies night sweats and Reports weight loss Denies change in voice, Reports dysphagia, Denies lip swelling, Denies mouth pain, Reports nasal congestion, Reports nasal discharge and Denies tongue swelling Cardiovascular: Reports no additional cardiovascular complaints, Denies chest pain, Denies dyspnea, Denies dyspnea on exertion and Denies orthopnea Respiratory: Reports no additional respiratory complaints, Denies cough, Denies hemoptysis, Denies dyspnea, Denies dyspnea on exertion and Denies wheezing Gastrointestinal: Reports no additional gastrointestinal complaints, Denies abdominal pain and Reports dysphagia Musculoskeletal: Denies no additional musculoskeletal complaints Denies Neuro-related abnormal movements Psychiatric: Denies no additional psychiatric complaints Endocrine: Reports fatigue Hematologic/Lymphatic: Denies easy bleeding and Denies lymphadenopathy Allergic/Immunologic: Denies lip swelling, Denies tongue swelling and Denies wheezing Diagnostics Vital Signs (24Hr): Vital Signs - 24 hr 01/23/21 12:00 01/23/21 16:00 01/23/21 21:00 Temperature 97.7 F 97.4 F 97.5 F Pulse Rate 88 80 71 Respiratory Rate 30 H 32 H 26 H Blood Pressure 124/68 118/68 Pulse Oximetry 96 95 95 01/24/21 00:00 01/24/21 05:03 Temperature 97.7 F Pulse Rate 75 Respiratory Rate 24 H 22 H Blood Pressure 102/60 Pulse Oximetry 95 Body Mass Index 17.5 Labs Results: 01/15/21 14:51 01/23/21 07:49 Labs: Laboratory Results - last 48 hr 01/22/21 01/22/21 01/22/21 12:41 16:50 20:10 Sodium Potassium Chloride Carbon Dioxide Anion Gap BUN Creatinine Estim Creat Clear Calc Estimated GFR POC Glucose 152 H 126 H 113 Fasting Glucose Calcium Total Bilirubin AST ALT Alkaline Phosphatase Total Protein Albumin 01/23/21 01/23/21 01/23/21 05:13 07:49 12:01 Sodium 133 L Potassium 4.6 Chloride 96 Carbon Dioxide 31 H Anion Gap 11 L BUN 20 H Creatinine 0.83 Estim Creat Clear Calc 51.9 Estimated GFR > 60 POC Glucose 121 H 122 H Fasting Glucose 125 H D Calcium 8.7 Total Bilirubin 0.2 AST 27 ALT 45 H Alkaline Phosphatase 154 H Total Protein 6.1 L Albumin 2.8 L 01/23/21 01/23/21 01/24/21 16:52 21:10 05:26 Sodium Potassium Chloride Carbon Dioxide Anion Gap BUN Creatinine Estim Creat Clear Calc Estimated GFR POC Glucose 137 H 114 117 H Fasting Glucose Calcium Total Bilirubin AST ALT Alkaline Phosphatase Total Protein Albumin Imaging Radiology Impressions: ITS Impressions Modified Barium Swallow 01/07/21 14:15 IMPRESSION: Laryngeal penetration and occasional aspiration as described above. Please refer to speech pathology report for details. Chest X-Ray 01/10/21 09:11 IMPRESSION: Severe chronic interstitial lung disease. No evidence of acute superimposed pneumonitis. Medications Medications Current Medications Generic Name Dose Route Start Last Admin Trade Name Demetriusq PRN Reason Stop Dose Admin Acetaminophen 650 mg 01/09/21 15:51 01/16/21 17:00 Acetaminophen 325 Mg Tablet G-TUBE 650 mg Q4H PRN Administration Pain, Mild (Pain Scale 1-3) Al Hydroxide/Mg Hydroxide 30 ml 01/08/21 15:46 Magnesium Hydrox/Alum Hydrox 30 Ml Oral.Susp G-TUBE Q4H PRN Dyspepsia Amphetamine/Dextroamphetamine 2.5 mg 01/22/21 08:00 01/24/21 08:37 Amphetamine Mixed Salts 10 Mg Tablet G-TUBE 2.5 mg BID@0800,1300 [facility] Administration Budesonide 2 puff 12/31/20 20:00 01/24/21 10:14 Budesonide 180 Mcg Aer.Pow.Ba INHALE Not Given RBID [facility] Clotrimazole 1 appl 01/06/21 21:00 01/24/21 10:14 Clotrimazole 1 % Cream 15 Gm Tube TOPICAL Not Given BID [facility] Protocol Famotidine 20 mg 01/09/21 09:00 01/24/21 08:36 Famotidine 20 Mg Tablet G-TUBE 20 mg DAILY [facility] Administration Fluoxetine HCl 2 mg 01/23/21 09:00 01/24/21 08:35 Fluoxetine Hcl Oral Solution 20 Mg/5 Ml Solution PO 2 mg DAILY [facility] Administration Hydrocortisone 10 mg 01/23/21 07:00 01/24/21 08:36 Hydrocortisone 10 Mg Tablet PO 10 mg DAILY@0700 [facility] Administration Hydrocortisone 2.5 mg 01/23/21 19:00 01/23/21 21:15 Hydrocortisone 10 Mg Tablet PO 2.5 mg DAILY@1900 [facility] Administration Hydrocortisone 5 mg 01/23/21 13:00 01/23/21 13:52 Hydrocortisone 10 Mg Tablet PO 5 mg DAILY@1300 [facility] Administration Lorazepam 0.5 mg 01/18/21 10:29 01/24/21 05:11 Lorazepam 0.5 Mg Tablet PO 0.5 mg Q4H PRN Administration anxiety/restlessness Mirtazapine 7.5 mg 01/14/21 21:00 01/23/21 21:15 Mirtazapine 7.5 Mg Tablet G-TUBE 7.5 mg BEDTIME [facility] Administration Patient Own 1 each 01/08/21 21:00 Medication ( G-TUBE Nintedanib 150) BID [facility] Nystatin 400,000 unit 01/15/21 17:00 01/24/21 08:36 Nystatin Oral Susp 500,000 Unit/5 Ml Oral.Susp PO 400,000 unit QID [facility] Administration Protocol Omeprazole 40 mg 01/08/21 16:30 01/24/21 05:09 Omeprazole 20 Mg/10 Ml Susp.Recon G-TUBE 40 mg BID@0630,1630 [facility] Administration Ondansetron HCl 4 mg 01/08/21 12:53 Ondansetron Hcl 4 Mg/2 Ml Vial IVPUSH ONCE PRN Nausea and Vomiting Prochlorperazine Edisylate 5 mg 12/31/20 23:21 01/06/21 09:42 Prochlorperazine Edisylate 10 Mg/2 Ml Vial IM 5 mg Q6H PRN Administration Nausea and Vomiting Thiamine HCl 100 mg 01/09/21 09:00 01/24/21 08:37 Thiamine Hcl 100 Mg Tablet G-TUBE 100 mg DAILY [facility] Administration Allergies Allergies Allergy/AdvReac Type Severity Reaction Status Date / Time Sulfa (Sulfonamide Allergy Unknown UNKNOWN Verified 12/01/20 09:47 Antibiotics) [SULFA (SULFONAMIDE ANTIBIOTICS)] zoster vaccine live Allergy Hives Verified 12/01/20 09:47 Assessment & Plan Assessment & Plan (1) Dysphagia: Qualifiers: Dysphagia type: unspecified Qualified Code(s): R13.10 - Dysphagia, unspecified Status: Acute Code(s): R13.10 - Dysphagia, unspecified (2) Pulmonary fibrosis: Status: Acute Code(s): J84.10 - Pulmonary fibrosis, unspecified (3) Chronic respiratory failure: Qualifiers: Respiratory failure complication: hypoxia Qualified Code(s): J96.11 - Chronic respiratory failure with hypoxia Status: Acute Code(s): J96.10 - Chronic respiratory failure, unspecified whether with hypoxia or hypercapnia (4) Bipolar I disorder with depression, severe: Status: Acute Code(s): F31.4 - Bipolar disorder, current episode depressed, severe, without psychotic features (5) Severe protein-calorie malnutrition: Status: Acute Code(s): E43 - Unspecified severe protein-calorie malnutrition Assessment and Plan: Continue per treatment team: IMPRESSION: ECT Ordered for 01/25/2021 hopefully the patient will show improvement with starting hydrocortisone check electrolytes Protein calorie malnutrition Continue PEG labs ordered spoke with dietary check electrolytes Pulmonary fibrosis aspiration continue NPO r/o steroid insuff acth stim test Case reviewed with Dr. Turcios adrenal hali coordinate with Nephrology/endocrine started on hydrocortisone Greater than 50% of the session was spent on counseling and/or coordination of care Reason for contiued inpatient stay Substantial Risk for: harm to self
[2021-01-23 12:00] VITALS: PULSE 88; RESP 30; TEMP 36.5; O2SAT 96
[2021-01-23 12:16] LABS: Glucose, Whole Blood 122 mg/dL (60-115)
[2021-01-23] MEDS: Hydrocortisone 10 MG TABLET 5 MG PO (13:52)
[2021-01-23 16:00] VITALS: BP 124/68; PULSE 80; RESP 32; TEMP 36.3; O2SAT 95
[2021-01-23 17:08] LABS: Glucose, Whole Blood 137 mg/dL (60-115)
[2021-01-23 21:00] VITALS: BP 118/68; PULSE 71; RESP 26; TEMP 36.4; O2SAT 95
[2021-01-23] MEDS: Hydrocortisone 10 MG TABLET 2.5 MG PO (21:15)
[2021-01-23] MEDS: Mirtazapine 7.5 MG TABLET G-TUBE (21:15)
[2021-01-23 21:29] LABS: Glucose, Whole Blood 114 mg/dL (60-115)
[2021-01-24] VITALS: RESP 24
[2021-01-24 05:03] VITALS: BP 102/60; PULSE 75; RESP 22; TEMP 36.5; O2SAT 95
[2021-01-24] MEDS: LORazepam 0.5 MG TABLET PO ×4 (05:11→21:06)
[2021-01-24 05:46] LABS: Glucose, Whole Blood 117 mg/dL (60-115)
[2021-01-24 08:00] VITALS: BP 102/60; PULSE 75; RESP 16; TEMP 36.7; O2SAT 95
[2021-01-24] MEDS: FLUoxetine HCl Oral Solution 20 MG/5 ML SOLUTION PO (08:35)
[2021-01-24] MEDS: Nystatin Oral Susp 500,000 UNIT/5 ML ORAL.SUSP 400000 UNIT PO ×4 (08:36→20:53)
[2021-01-24] MEDS: Famotidine 20 MG TABLET G-TUBE (08:36)
[2021-01-24] MEDS: Hydrocortisone 10 MG TABLET PO (08:36)
[2021-01-24] MEDS: Thiamine HCL 100 MG TABLET G-TUBE (08:37)
[2021-01-24] MEDS: Amphetamine Mixed Salts 10 MG TABLET 2.5 MG G-TUBE ×2 (08:37→13:20)
--- NOTE | 2021-01-24 11:03 | HO.PSYCHPN ---
Subjective Subjective Date of Service: 01/24/21 Reason For Visit: severe depression Interim History: Pt lying in bed, with some mild difficulty breathing when talking. He continues to report slight improve in mood in that he is more hopeful. He denies SI/HI. He reports sleeping okay. No physical concerns- walks with walker and assistance from staff. He reports enjoying his family company when they come to visit everyday. Today, he reports constipation- no bloating, passing gas, last BM 3 days ago. Per nursing- o2 sat while sitting 96%, on room air, he is on oxygen 1.5L when ambulating. MSE Appearance: thin, fair hygiene, mild SOB Behavior: calm, cooperative Psychomotor: no agitation or retardation noted Speech: clear, normal rate/rhythm/volume, spontaneous TP: linear TC: no signs of psychosis, feeling more hopeful Mood: slightly better Affect:slightly brighter, but blunted SI:denies HI:denies AH/VH:none Delusions:none Insight/judgment:fair x 2. Memory/cog: alert, oriented x 3. not formally tested. Review of Systems Review of Systems As reported in HPI Constitutional: Reports fatigue, Reports lethargy, Reports malaise, Denies night sweats and Reports weight loss Denies change in voice, Reports dysphagia, Denies lip swelling, Denies mouth pain, Reports nasal congestion, Reports nasal discharge and Denies tongue swelling Cardiovascular: Reports no additional cardiovascular complaints, Denies chest pain, Denies dyspnea, Denies dyspnea on exertion and Denies orthopnea Respiratory: Reports no additional respiratory complaints, Denies cough, Denies hemoptysis, Denies dyspnea, Denies dyspnea on exertion and Denies wheezing Gastrointestinal: Reports no additional gastrointestinal complaints, Denies abdominal pain and Reports dysphagia Musculoskeletal: Denies no additional musculoskeletal complaints Denies Neuro-related abnormal movements Psychiatric: Denies no additional psychiatric complaints Endocrine: Reports fatigue Hematologic/Lymphatic: Denies easy bleeding and Denies lymphadenopathy Allergic/Immunologic: Denies lip swelling, Denies tongue swelling and Denies wheezing Diagnostics Vital Signs (24Hr): Vital Signs - 24 hr 01/23/21 12:00 01/23/21 16:00 01/23/21 21:00 Temperature 97.7 F 97.4 F 97.5 F Pulse Rate 88 80 71 Respiratory Rate 30 H 32 H 26 H Blood Pressure 124/68 118/68 Pulse Oximetry 96 95 95 01/24/21 00:00 01/24/21 05:03 Temperature 97.7 F Pulse Rate 75 Respiratory Rate 24 H 22 H Blood Pressure 102/60 Pulse Oximetry 95 Body Mass Index 17.5 Labs Results: 01/15/21 14:51 01/23/21 07:49 Labs: Laboratory Results - last 48 hr 01/22/21 01/22/21 01/22/21 12:41 16:50 20:10 Sodium Potassium Chloride Carbon Dioxide Anion Gap BUN Creatinine Estim Creat Clear Calc Estimated GFR POC Glucose 152 H 126 H 113 Fasting Glucose Calcium Total Bilirubin AST ALT Alkaline Phosphatase Total Protein Albumin 01/23/21 01/23/21 01/23/21 05:13 07:49 12:01 Sodium 133 L Potassium 4.6 Chloride 96 Carbon Dioxide 31 H Anion Gap 11 L BUN 20 H Creatinine 0.83 Estim Creat Clear Calc 51.9 Estimated GFR > 60 POC Glucose 121 H 122 H Fasting Glucose 125 H D Calcium 8.7 Total Bilirubin 0.2 AST 27 ALT 45 H Alkaline Phosphatase 154 H Total Protein 6.1 L Albumin 2.8 L 01/23/21 01/23/21 01/24/21 16:52 21:10 05:26 Sodium Potassium Chloride Carbon Dioxide Anion Gap BUN Creatinine Estim Creat Clear Calc Estimated GFR POC Glucose 137 H 114 117 H Fasting Glucose Calcium Total Bilirubin AST ALT Alkaline Phosphatase Total Protein Albumin Imaging Radiology Impressions: ITS Impressions Modified Barium Swallow 01/07/21 14:15 IMPRESSION: Laryngeal penetration and occasional aspiration as described above. Please refer to speech pathology report for details. Chest X-Ray 01/10/21 09:11 IMPRESSION: Severe chronic interstitial lung disease. No evidence of acute superimposed pneumonitis. Medications Medications Current Medications Generic Name Dose Route Start Last Admin Trade Name Freq PRN Reason Stop Dose Admin Acetaminophen 650 mg 01/09/21 15:51 01/16/21 17:00 Acetaminophen 325 Mg Tablet G-TUBE 650 mg Q4H PRN Administration Pain, Mild (Pain Scale 1-3) Al Hydroxide/Mg Hydroxide 30 ml 01/08/21 15:46 Magnesium Hydrox/Alum Hydrox 30 Ml Oral.Susp G-TUBE Q4H PRN Dyspepsia Amphetamine/Dextroamphetamine 2.5 mg 01/22/21 08:00 01/24/21 08:37 Amphetamine Mixed Salts 10 Mg Tablet G-TUBE 2.5 mg BID@0800,1300 [facility] Administration Budesonide 2 puff 12/31/20 20:00 01/24/21 10:14 Budesonide 180 Mcg Aer.Pow.Ba INHALE Not Given RBID [facility] Clotrimazole 1 appl 01/06/21 21:00 01/24/21 10:14 Clotrimazole 1 % Cream 15 Gm Tube TOPICAL Not Given BID [facility] Protocol Famotidine 20 mg 01/09/21 09:00 01/24/21 08:36 Famotidine 20 Mg Tablet G-TUBE 20 mg DAILY [facility] Administration Fluoxetine HCl 2 mg 01/23/21 09:00 01/24/21 08:35 Fluoxetine Hcl Oral Solution 20 Mg/5 Ml Solution PO 2 mg DAILY [facility] Administration Hydrocortisone 10 mg 01/23/21 07:00 01/24/21 08:36 Hydrocortisone 10 Mg Tablet PO 10 mg DAILY@0700 [facility] Administration Hydrocortisone 2.5 mg 01/23/21 19:00 01/23/21 21:15 Hydrocortisone 10 Mg Tablet PO 2.5 mg DAILY@1900 [facility] Administration Hydrocortisone 5 mg 01/23/21 13:00 01/23/21 13:52 Hydrocortisone 10 Mg Tablet PO 5 mg DAILY@1300 [facility] Administration Lorazepam 0.5 mg 01/18/21 10:29 01/24/21 05:11 Lorazepam 0.5 Mg Tablet PO 0.5 mg Q4H PRN Administration anxiety/restlessness Mirtazapine 7.5 mg 01/14/21 21:00 01/23/21 21:15 Mirtazapine 7.5 Mg Tablet G-TUBE 7.5 mg BEDTIME [facility] Administration Patient Own 1 each 01/08/21 21:00 Medication ( G-TUBE Nintedanib 150) BID [facility] Nystatin 400,000 unit 01/15/21 17:00 01/24/21 08:36 Nystatin Oral Susp 500,000 Unit/5 Ml Oral.Susp PO 400,000 unit QID [facility] Administration Protocol Omeprazole 40 mg 01/08/21 16:30 01/24/21 05:09 Omeprazole 20 Mg/10 Ml Susp.Recon G-TUBE 40 mg BID@0630,1630 [facility] Administration Ondansetron HCl 4 mg 01/08/21 12:53 Ondansetron Hcl 4 Mg/2 Ml Vial IVPUSH ONCE PRN Nausea and Vomiting Prochlorperazine Edisylate 5 mg 12/31/20 23:21 01/06/21 09:42 Prochlorperazine Edisylate 10 Mg/2 Ml Vial IM 5 mg Q6H PRN Administration Nausea and Vomiting Thiamine HCl 100 mg 01/09/21 09:00 01/24/21 08:37 Thiamine Hcl 100 Mg Tablet G-TUBE 100 mg DAILY [facility] Administration Allergies Allergies Allergy/AdvReac Type Severity Reaction Status Date / Time Sulfa (Sulfonamide Allergy Unknown UNKNOWN Verified 12/01/20 09:47 Antibiotics) [SULFA (SULFONAMIDE ANTIBIOTICS)] zoster vaccine live Allergy Hives Verified 12/01/20 09:47 Assessment & Plan Assessment & Plan (1) Dysphagia: Qualifiers: Dysphagia type: unspecified Qualified Code(s): R13.10 - Dysphagia, unspecified Status: Acute Code(s): R13.10 - Dysphagia, unspecified (2) Pulmonary fibrosis: Status: Acute Code(s): J84.10 - Pulmonary fibrosis, unspecified (3) Chronic respiratory failure: Qualifiers: Respiratory failure complication: hypoxia Qualified Code(s): J96.11 - Chronic respiratory failure with hypoxia Status: Acute Code(s): J96.10 - Chronic respiratory failure, unspecified whether with hypoxia or hypercapnia (4) Bipolar I disorder with depression, severe: Status: Acute Code(s): F31.4 - Bipolar disorder, current episode depressed, severe, without psychotic features (5) Severe protein-calorie malnutrition: Status: Acute Code(s): E43 - Unspecified severe protein-calorie malnutrition Assessment and Plan: Continue per treatment team: IMPRESSION: ECT Ordered for 01/25/2021 hopefully the patient will show improvement with starting hydrocortisone check electrolytes Protein calorie malnutrition Continue PEG labs ordered spoke with dietary check electrolytes Pulmonary fibrosis aspiration continue NPO r/o steroid insuff acth stim test Case reviewed with Dr. Turcios adrenal insuff coordinate with Nephrology/endocrine started on hydrocortisone Greater than 50% of the session was spent on counseling and/or coordination of care Reason for contiued inpatient stay Substantial Risk for: harm to self
[2021-01-24 12:00] VITALS: BP 104/64; PULSE 68; RESP 16; TEMP 36.6; O2SAT 94
[2021-01-24] MEDS: Hydrocortisone 10 MG TABLET 5 MG PO (13:20)
[2021-01-24 16:00] VITALS: PULSE 68; RESP 16; TEMP 36.9
--- NOTE | 2021-01-24 16:00 | PC.NURSE ---
Osmolite started today at 1130 at 20ml/hr; changed to 30ml/hr at 1530. Pt tolerating well, no residual noted. Denies pain/discomfort.
[2021-01-24 16:56] LABS: Glucose, Whole Blood 107 mg/dL (60-115)
[2021-01-24 20:00] VITALS: BP 110/70; PULSE 80; RESP 16; TEMP 36.3; O2SAT 93
[2021-01-24] MEDS: Hydrocortisone 10 MG TABLET 2.5 MG PO (20:54)
[2021-01-24] MEDS: Mirtazapine 7.5 MG TABLET G-TUBE (20:54)
[2021-01-24] MEDS: Budesonide 180 MCG AER.POW.BA 2 PUFF INHALE (21:20)
--- NOTE | 2021-01-24 21:26 | PC.NURSE ---
Per Dr's order, pt tube feed increased by 10 every 4 hours, running at 40 hour at this time. At 2300 the pt feed will be turned off in preperation for ECT tomorrow. Pt is aware he is NPO starting at 2300. The pt reports he understands and will be in compliance with Dr's orders.
[2021-01-24] MEDS: Clotrimazole 1 % Cream 15 GM TUBE 1 APPL TOPICAL (22:21)
[2021-01-25] VITALS (12 sets, daily range): BP systolic 95–150; BP diastolic 59–91; PULSE 71–97; RESP 16–32; TEMP 36.4–37.1; O2SAT 92–100
[2021-01-25 07:12] LABS: Glucose, Whole Blood 90 mg/dL (60-115)
--- NOTE | 2021-01-25 07:34 | HO.ECTPROC ---
ECT Procedure Note Diagnosis/Treatment Date of Service: 01/25/21 Diagnosis: Bipolar disorder Previous ECT Date: 01/06/21 Current Treatment Number: 4 Treatment: Series Interval Clinical Notes: The patient denies new symptoms, still very dysphoric, with PEG tube ECT Settings Device: THYMATRON DGx Electrode Placement: Bifrontal Program/Pulse Width: 0.25 Energy Percent: 100 Seizure Duration By EEG (in seconds): 61 By Motor Observation (in seconds): 51 Medications Administration General Anesthetic: Etomidate (10) Muscle Relaxant: Rocuronium (20) Ancillary Medications Miscillaneous Medications: Other (No Zofran or Toradol given) Airway Management Airway Management: Bag Mask Ventilation Treatment Recommendations No Changes Recommended: No change Pt Tolerated Procedure w/o Issue: Yes
[2021-01-25] MEDS: FLUoxetine HCl Oral Solution 20 MG/5 ML SOLUTION PO (08:39)
[2021-01-25] MEDS: Nystatin Oral Susp 500,000 UNIT/5 ML ORAL.SUSP 400000 UNIT PO ×4 (08:41→21:15)
[2021-01-25] MEDS: Clotrimazole 1 % Cream 15 GM TUBE 1 APPL TOPICAL ×2 (08:42→21:23)
[2021-01-25] MEDS: Budesonide 180 MCG AER.POW.BA 2 PUFF INHALE ×2 (08:42→21:23)
[2021-01-25] MEDS: Amphetamine Mixed Salts 10 MG TABLET 2.5 MG G-TUBE ×2 (08:42→12:51)
[2021-01-25] MEDS: Famotidine 20 MG TABLET G-TUBE (08:43)
[2021-01-25] MEDS: Thiamine HCL 100 MG TABLET G-TUBE (08:43)
[2021-01-25] MEDS: Hydrocortisone 10 MG TABLET PO (08:43)
--- NOTE | 2021-01-25 08:46 | HO.ANESPROP2 ---
[facility] Active Problems Active Problems: All Active Problems (Updated 01/22/21 @ 13:04 by Nile Quezada MD) Adrenal insufficiency (Acute) Severe protein-calorie malnutrition (Acute) Severe malnutrition (Acute) Chronic respiratory failure (Acute) Hyponatremia (Acute) Dysphagia (Acute) Metabolic encephalopathy (Acute) Pneumonia (Acute) Hypotension (Acute) Swallowing dysfunction (Acute) Increased oxygen demand (Acute) Pulmonary fibrosis (Acute) Bipolar I disorder with depression, severe (Acute) CKD (chronic kidney disease) stage 3, GFR 30-59 ml/min (Acute) Bipolar disorder (Acute) Past Medical History Medical History Anemia Anxiety Bronchiectasis Cerebrovascular disease Chronic hyponatremia Chronic respiratory failure CKD (chronic kidney disease) stage 3, GFR 30-59 ml/min Degenerative arthritis Depression History of electroconvulsive therapy Hx of bladder cancer Hydrocele Pulmonary fibrosis Pulmonary fibrosis Family History Family History Father Colon cancer Family history of problems with anesthesia: No Surgical History Surgical History History of bladder surgery History of Problems with Anesthesia: Yes (N&V) Social History Social History Household Members: Spouse Housing: Apartment Do you presently have visiting nurse or other home services: Yes Smoking Status: Former smoker Tobacco Type: Cigarette Packs Per Day: 1 Cigarettes Per Day: 20.0 Years Smoked: 20 Smoked in Last 30 Days: No Patient Interested in Nicotine Replacement: No Patient Given Instructions on How to Stop Smoking: No Second Hand Smoke Exposure: No Use of substances other than those prescribed or required for medical reasons: No Substance Use Type: Marijuana Currently Displaying Signs/Symptoms of Drug Intoxication Withdrawal: No Spiritual Healthcare Practices: none Restorationism Healthcare Practices: none Cultural Healthcare Practices: none Advance Directives: Yes Advance Directives on File: Yes Advance Directives Date on File: 11/27/20 Do you have thoughts of harming others: None Do you have a plan to hurt others: No Plan Recently lost weight without trying: Yes How much weight loss: 2-13 pounds Eating poorly because of decreased appetite: Yes Nutrition screen score: 4 Nutrition Risks: Emaciation/Cachexia Poor oral hygiene: No service: No Current occupational status: retired and disabled Sexual orientation: Straight/Heterosexual Meds Allergies Allergy/AdvReac Type Severity Reaction Status Date / Time Sulfa (Sulfonamide Allergy Unknown UNKNOWN Verified 12/01/20 09:47 Antibiotics) [SULFA (SULFONAMIDE ANTIBIOTICS)] zoster vaccine live Allergy Hives Verified 12/01/20 09:47 Active Medications: Current Medications Generic Name Dose Route Start Last Admin Trade Name Freq PRN Reason Stop Dose Admin Acetaminophen 650 mg 01/09/21 15:51 01/16/21 17:00 Acetaminophen 325 Mg Tablet G-TUBE 650 mg Q4H PRN Administration Pain, Mild (Pain Scale 1-3) Al Hydroxide/Mg Hydroxide 30 ml 01/08/21 15:46 Magnesium Hydrox/Alum Hydrox 30 Ml Oral.Susp G-TUBE Q4H PRN Dyspepsia Amphetamine/Dextroamphetamine 2.5 mg 01/22/21 08:00 01/24/21 13:20 Amphetamine Mixed Salts 10 Mg Tablet G-TUBE 2.5 mg BID@0800,1300 DOMINICK Administration Budesonide 2 puff 12/31/20 20:00 01/25/21 08:42 Budesonide 180 Mcg Aer.Pow.Ba INHALE 2 puff RBID DOMINICK Administration Clotrimazole 1 appl 01/06/21 21:00 01/25/21 08:42 Clotrimazole 1 % Cream 15 Gm Tube TOPICAL 1 appl BID DOMINICK Administration Protocol Famotidine 20 mg 01/09/21 09:00 01/24/21 08:36 Famotidine 20 Mg Tablet G-TUBE 20 mg DAILY DOMINICK Administration Fluoxetine HCl 2 mg 01/23/21 09:00 01/25/21 08:39 Fluoxetine Hcl Oral Solution 20 Mg/5 Ml Solution PO 2 mg DAILY DOMINICK Administration Hydrocortisone 10 mg 01/23/21 07:00 01/24/21 08:36 Hydrocortisone 10 Mg Tablet PO 10 mg DAILY@0700 DOMINICK Administration Hydrocortisone 2.5 mg 01/23/21 19:00 01/24/21 20:54 Hydrocortisone 10 Mg Tablet PO 2.5 mg DAILY@1900 DOMINICK Administration Hydrocortisone 5 mg 01/23/21 13:00 01/24/21 13:20 Hydrocortisone 10 Mg Tablet PO 5 mg DAILY@1300 DOMINICK Administration Lorazepam 0.5 mg 01/18/21 10:29 01/24/21 21:06 Lorazepam 0.5 Mg Tablet PO 0.5 mg Q4H PRN Administration anxiety/restlessness Mirtazapine 7.5 mg 01/14/21 21:00 01/24/21 20:54 Mirtazapine 7.5 Mg Tablet G-TUBE 7.5 mg BEDTIME DOMINICK Administration Patient Own 1 each 01/08/21 21:00 Medication ( G-TUBE Nintedanib 150) BID DOMINICK Nystatin 400,000 unit 01/15/21 17:00 01/25/21 08:41 Nystatin Oral Susp 500,000 Unit/5 Ml Oral.Susp PO 400,000 unit QID DOMINICK Administration Protocol Omeprazole 40 mg 01/08/21 16:30 01/25/21 08:39 Omeprazole 20 Mg/10 Ml Susp.Recon G-TUBE 40 mg BID@0630,1630 DOMINICK Administration Ondansetron HCl 4 mg 01/08/21 12:53 Ondansetron Hcl 4 Mg/2 Ml Vial IVPUSH ONCE PRN Nausea and Vomiting Prochlorperazine Edisylate 5 mg 12/31/20 23:21 01/06/21 09:42 Prochlorperazine Edisylate 10 Mg/2 Ml Vial IM 5 mg Q6H PRN Administration Nausea and Vomiting Thiamine HCl 100 mg 01/09/21 09:00 01/24/21 08:37 Thiamine Hcl 100 Mg Tablet G-TUBE 100 mg DAILY DOMINICK Administration Home Medications Medication Instructions Recorded Confirmed Last Taken Type Latuda 1 tab PO DAILY 11/25/20 12/31/20 11/25/20 History Ofev 150 mg PO BID 11/25/20 12/31/20 11/25/20 History docusate sodium [Stool Softener] 1 cap PO BID PRN 11/25/20 12/31/20 11/25/20 History lorazepam 1 tab PO BID PRN 11/25/20 12/31/20 11/25/20 History mirtazapine 1 tab PO BEDTIME 11/25/20 12/31/20 11/24/20 History ondansetron 1 tab PO Q8H PRN 11/25/20 12/31/20 Unknown History quetiapine 37.5 mg PO BEDTIME 11/25/20 12/31/20 11/24/20 History Exam Exam Date and Time: January 25, 2021 0846 Height,Weight and Vital Signs: Height 5 ft 7 in Weight 50.9 kg Last Vital Signs Temp 98.5 F 01/25/21 07:39 Pulse 95 01/25/21 08:09 Resp 20 01/25/21 08:09 BP 150/91 H 01/25/21 08:09 Pulse Ox 95 01/25/21 08:09 Pertinent Lab Results Pertinent Lab Results: Laboratory Tests 01/01/21 01/05/21 01/08/21 14:34 15:05 07:46 WBC 10.6 RBC 3.17 L Hgb 10.0 L Hct 29.4 L MCV 92.7 MCH 31.5 MCHC 34.0 RDW 15.3 Plt Count 319 MPV 10.7 Immature Gran % (Auto) Neut % (Auto) Lymph % (Auto) [place] % (Auto) Eos % (Auto) Baso % (Auto) Lymph # (Auto) [place] # (Auto) Eos # (Auto) Baso # (Auto) Abs Immat Gran (auto) Absolute Neuts (auto) Absolute Nucleated RBC 0.000 Nucleated RBC % (auto) 0.0 Smear Tech's Comments PT INR D-Dimer O2 Saturation ABG pH at Pt Temp ABG pH (Temp Correct) ABG pCO2 at Pt Temp ABG pCO2 (Temp Corrct ABG pO2 at Pt Temp ABG pO2 (Temp Correct ABG HCO3 ABG Base Excess (Actual) Sodium 132 L 131 L Potassium 5.2 H 5.1 Chloride 97 96 Carbon Dioxide 27 26 Anion Gap 13 14 BUN 25 H Creatinine 1.00 Estim Creat Clear Calc 45.7 Estimated GFR > 60 POC Glucose Random Glucose 145 H D Fasting Glucose Estimat Average Glucose Hemoglobin A1c % Calcium 9.2 Phosphorus Magnesium Total Bilirubin 0.5 AST 36 D ALT 29 Alkaline Phosphatase 137 H D Troponin I High Sens Total Protein 6.7 D Albumin 3.1 L D Cortisol Baseline Cortisol 30 Minute Cortisol 60 Minute ACTH Resp to [facility] Cortisol Sreeknath Time 1 Cortisol Sreekanth Time 2 Cortisol Sreekanth Time 3 ACTH Comment 01/08/21 01/09/21 01/10/21 07:46 07:12 09:26 WBC 18.1 H RBC 3.44 L Hgb 10.9 L Hct 31.8 L MCV 92.4 MCH 31.7 MCHC 34.3 RDW 15.2 Plt Count 347 MPV 10.8 Immature Gran % (Auto) Neut % (Auto) Lymph % (Auto) [place] % (Auto) Eos % (Auto) Baso % (Auto) Lymph # (Auto) [place] # (Auto) Eos # (Auto) Baso # (Auto) Abs Immat Gran (auto) Absolute Neuts (auto) Absolute Nucleated RBC 0.000 Nucleated RBC % (auto) 0.0 Smear Tech's Comments PT 13.5 H INR 1.1 D-Dimer 994 O2 Saturation ABG pH at Pt Temp ABG pH (Temp Correct) ABG pCO2 at Pt Temp ABG pCO2 (Temp Corrct ABG pO2 at Pt Temp ABG pO2 (Temp Correct ABG HCO3 ABG Base Excess (Actual) Sodium Potassium Chloride Carbon Dioxide Anion Gap BUN Creatinine Estim Creat Clear Calc Estimated GFR POC Glucose Random Glucose Fasting Glucose Estimat Average Glucose Hemoglobin A1c % Calcium Phosphorus Magnesium Total Bilirubin AST ALT Alkaline Phosphatase Troponin I High Sens Total Protein Albumin Cortisol Baseline Cortisol 30 Minute Cortisol 60 Minute ACTH Resp to [place] Cortisol Sreekanth Time 1 Cortisol Sreekanth Time 2 Cortisol Sreekanth Time 3 ACTH Comment 01/10/21 01/10/21 01/10/21 09:26 09:26 09:28 WBC 22.2 H RBC 3.38 L Hgb 10.8 L Hct 31.2 L MCV 92.3 MCH 32.0 MCHC 34.6 RDW 15.1 Plt Count 311 MPV 10.4 Immature Gran % (Auto) 0.5 H Neut % (Auto) 84.9 H Lymph % (Auto) 7.4 L [place] % (Auto) 7.1 Eos % (Auto) 0.0 Baso % (Auto) 0.1 Lymph # (Auto) 1.6 Cand[place] # (Auto) 1.6 H Eos # (Auto) 0.0 Baso # (Auto) 0.0 Abs Immat Gran (auto) 0.12 H Absolute Neuts (auto) 18.8 H Absolute Nucleated RBC 0.000 Nucleated RBC % (auto) 0.0 Smear Tech's Comments VERIFIED PT INR D-Dimer O2 Saturation ABG pH at Pt Temp ABG pH (Temp Correct) ABG pCO2 at Pt Temp ABG pCO2 (Temp Corrct ABG pO2 at Pt Temp ABG pO2 (Temp Correct ABG HCO3 ABG Base Excess (Actual) Sodium 130 L Potassium 4.1 Chloride 95 L Carbon Dioxide 31 H Anion Gap 8 L BUN 18 H Creatinine 0.83 Estim Creat Clear Calc 53.1 Estimated GFR > 60 POC Glucose Random Glucose 151 H Fasting Glucose Estimat Average Glucose Hemoglobin A1c % Calcium 8.3 L D Phosphorus Magnesium Total Bilirubin AST ALT Alkaline Phosphatase Troponin I High Sens 14.4 D Total Protein Albumin Cortisol Baseline Cortisol 30 Minute Cortisol 60 Minute ACTH Resp to [place] Cortisol Sreekanth Time 1 Cortisol Sreekanth Time 2 Cortisol Sreekanth Time 3 ACTH Comment 01/10/21 01/13/21 01/15/21 09:49 07:56 14:51 WBC 11.2 H RBC 3.37 L Hgb 10.6 L Hct 31.9 L MCV 94.7 MCH 31.5 MCHC 33.2 RDW 15.5 Plt Count 382 MPV 10.7 Immature Gran % (Auto) 0.5 H Neut % (Auto) 79.8 H Lymph % (Auto) 13.3 L [place] % (Auto) 5.8 Eos % (Auto) 0.4 Baso % (Auto) 0.2 Lymph # (Auto) 1.5 [place] # (Auto) 0.7 Eos # (Auto) 0.1 Baso # (Auto) 0.0 Abs Immat Gran (auto) 0.06 H Absolute Neuts (auto) 8.9 H Absolute Nucleated RBC 0.000 Nucleated RBC % (auto) 0.0 Smear Tech's Comments PT INR D-Dimer O2 Saturation 98.0 ABG pH at Pt Temp 7.49 H ABG pH (Temp Correct) 7.49 H ABG pCO2 at Pt Temp 40 ABG pCO2 (Temp Corrct 40 ABG pO2 at Pt Temp 99 ABG pO2 (Temp Correct 101 ABG HCO3 31 H ABG Base Excess (Actual) 7.4 Sodium 133 L Potassium 4.6 Chloride 95 L Carbon Dioxide 33 H Anion Gap 10 L BUN 18 H Creatinine 0.78 Estim Creat Clear Calc 57.2 Estimated GFR > 60 POC Glucose Random Glucose 132 H Fasting Glucose Estimat Average Glucose Hemoglobin A1c % Calcium 8.5 Phosphorus Magnesium Total Bilirubin 0.4 AST 27 ALT 20 Alkaline Phosphatase 150 H Troponin I High Sens Total Protein 5.9 L Albumin 2.5 L Cortisol Baseline Cortisol 30 Minute Cortisol 60 Minute ACTH Resp to [place] Cortisol Sreekanth Time 1 Cortisol Sreekanth Time 2 Cortisol Sreekanth Time 3 ACTH Comment 01/15/21 01/18/21 01/19/21 14:51 15:36 22:29 WBC RBC Hgb Hct MCV MCH MCHC RDW Plt Count MPV Immature Gran % (Auto) Neut % (Auto) Lymph % (Auto) [place] % (Auto) Eos % (Auto) Baso % (Auto) Lymph # (Auto) [place] # (Auto) Eos # (Auto) Baso # (Auto) Abs Immat Gran (auto) Absolute Neuts (auto) Absolute Nucleated RBC Nucleated RBC % (auto) Smear Tech's Comments PT INR D-Dimer O2 Saturation ABG pH at Pt Temp ABG pH (Temp Correct) ABG pCO2 at Pt Temp ABG pCO2 (Temp Corrct ABG pO2 at Pt Temp ABG pO2 (Temp Correct ABG HCO3 ABG Base Excess (Actual) Sodium 132 L 132 L Potassium 5.1 5.1 Chloride 94 L 95 L Carbon Dioxide 32 H 31 H Anion Gap 11 L 11 L BUN 22 H Creatinine 0.88 Estim Creat Clear Calc 49.0 Estimated GFR > 60 POC Glucose 112 Random Glucose 165 H Fasting Glucose Estimat Average Glucose Hemoglobin A1c % Calcium 8.8 Phosphorus 3.0 Magnesium 2.1 Total Bilirubin 0.3 AST 34 ALT 55 H Alkaline Phosphatase 174 H Troponin I High Sens Total Protein 6.4 L Albumin 2.8 L Cortisol Baseline Cortisol 30 Minute Cortisol 60 Minute ACTH Resp to [place] Cortisol Sreekanth Time 1 Cortisol Sreekanth Time 2 Cortisol Sreekanth Time 3 ACTH Comment 01/20/21 01/20/21 01/20/21 05:55 08:29 12:08 WBC RBC Hgb Hct MCV MCH MCHC RDW Plt Count MPV Immature Gran % (Auto) Neut % (Auto) Lymph % (Auto) [place] % (Auto) Eos % (Auto) Baso % (Auto) Lymph # (Auto) [place] # (Auto) Eos # (Auto) Baso # (Auto) Abs Immat Gran (auto) Absolute Neuts (auto) Absolute Nucleated RBC Nucleated RBC % (auto) Smear Tech's Comments PT INR D-Dimer O2 Saturation ABG pH at Pt Temp ABG pH (Temp Correct) ABG pCO2 at Pt Temp ABG pCO2 (Temp Corrct ABG pO2 at Pt Temp ABG pO2 (Temp Correct ABG HCO3 ABG Base Excess (Actual) Sodium Potassium Chloride Carbon Dioxide Anion Gap BUN Creatinine Estim Creat Clear Calc Estimated GFR POC Glucose 111 127 H Random Glucose Fasting Glucose Estimat Average Glucose 117 Hemoglobin A1c % 5.7 Calcium Phosphorus Magnesium Total Bilirubin AST ALT Alkaline Phosphatase Troponin I High Sens Total Protein Albumin Cortisol Baseline Cortisol 30 Minute Cortisol 60 Minute ACTH Resp to [place] Cortisol Sreekanth Time 1 Cortisol Sreekanth Time 2 Cortisol Sreekanth Time 3 ACTH Comment 01/20/21 01/20/21 01/20/21 12:32 16:53 21:21 WBC RBC Hgb Hct MCV MCH MCHC RDW Plt Count MPV Immature Gran % (Auto) Neut % (Auto) Lymph % (Auto) [place] % (Auto) Eos % (Auto) Baso % (Auto) Lymph # (Auto) [place] # (Auto) Eos # (Auto) Baso # (Auto) Abs Immat Gran (auto) Absolute Neuts (auto) Absolute Nucleated RBC Nucleated RBC % (auto) Smear Tech's Comments PT INR D-Dimer O2 Saturation ABG pH at Pt Temp ABG pH (Temp Correct) ABG pCO2 at Pt Temp ABG pCO2 (Temp Corrct ABG pO2 at Pt Temp ABG pO2 (Temp Correct ABG HCO3 ABG Base Excess (Actual) Sodium Potassium Chloride Carbon Dioxide Anion Gap BUN Creatinine Estim Creat Clear Calc Estimated GFR POC Glucose 140 H 89 Random Glucose Fasting Glucose Estimat Average Glucose Hemoglobin A1c % Calcium Phosphorus Magnesium Total Bilirubin AST ALT Alkaline Phosphatase Troponin I High Sens Total Protein Albumin Cortisol Baseline 10.3 Cortisol 30 Minute 16.3 L Cortisol 60 Minute 19.8 L ACTH Resp to [facility] 1132 Cortisol Sreekanth Time 1 0829 Cortisol Sreekanth Time 2 1206 Cortisol Sreekanth Time 3 1232 ACTH Comment See Below 01/21/21 01/21/21 01/21/21 05:43 11:36 18:05 WBC RBC Hgb Hct MCV MCH MCHC RDW Plt Count MPV Immature Gran % (Auto) Neut % (Auto) Lymph % (Auto) [place] % (Auto) Eos % (Auto) Baso % (Auto) Lymph # (Auto) [place] # (Auto) Eos # (Auto) Baso # (Auto) Abs Immat Gran (auto) Absolute Neuts (auto) Absolute Nucleated RBC Nucleated RBC % (auto) Smear Tech's Comments PT INR D-Dimer O2 Saturation ABG pH at Pt Temp ABG pH (Temp Correct) ABG pCO2 at Pt Temp ABG pCO2 (Temp Corrct ABG pO2 at Pt Temp ABG pO2 (Temp Correct ABG HCO3 ABG Base Excess (Actual) Sodium Potassium Chloride Carbon Dioxide Anion Gap BUN Creatinine Estim Creat Clear Calc Estimated GFR POC Glucose 130 H 130 H 118 H Random Glucose Fasting Glucose Estimat Average Glucose Hemoglobin A1c % Calcium Phosphorus Magnesium Total Bilirubin AST ALT Alkaline Phosphatase Troponin I High Sens Total Protein Albumin Cortisol Baseline Cortisol 30 Minute Cortisol 60 Minute ACTH Resp to [place] Cortisol Sreekanth Time 1 Cortisol Sreekanth Time 2 Cortisol Sreekanth Time 3 ACTH Comment 01/21/21 01/22/21 01/22/21 20:09 05:36 12:41 WBC RBC Hgb Hct MCV MCH MCHC RDW Plt Count MPV Immature Gran % (Auto) Neut % (Auto) Lymph % (Auto) [place] % (Auto) Eos % (Auto) Baso % (Auto) Lymph # (Auto) [place] # (Auto) Eos # (Auto) Baso # (Auto) Abs Immat Gran (auto) Absolute Neuts (auto) Absolute Nucleated RBC Nucleated RBC % (auto) Smear Tech's Comments PT INR D-Dimer O2 Saturation ABG pH at Pt Temp ABG pH (Temp Correct) ABG pCO2 at Pt Temp ABG pCO2 (Temp Corrct ABG pO2 at Pt Temp ABG pO2 (Temp Correct ABG HCO3 ABG Base Excess (Actual) Sodium Potassium Chloride Carbon Dioxide Anion Gap BUN Creatinine Estim Creat Clear Calc Estimated GFR POC Glucose 100 119 H 152 H Random Glucose Fasting Glucose Estimat Average Glucose Hemoglobin A1c % Calcium Phosphorus Magnesium Total Bilirubin AST ALT Alkaline Phosphatase Troponin I High Sens Total Protein Albumin Cortisol Baseline Cortisol 30 Minute Cortisol 60 Minute ACTH Resp to [place] Cortisol Sreekanth Time 1 Cortisol Sreekanth Time 2 Cortisol Sreekanth Time 3 ACTH Comment 01/22/21 01/22/21 01/23/21 16:50 20:10 05:13 WBC RBC Hgb Hct MCV MCH MCHC RDW Plt Count MPV Immature Gran % (Auto) Neut % (Auto) Lymph % (Auto) [place] % (Auto) Eos % (Auto) Baso % (Auto) Lymph # (Auto) [place] # (Auto) Eos # (Auto) Baso # (Auto) Abs Immat Gran (auto) Absolute Neuts (auto) Absolute Nucleated RBC Nucleated RBC % (auto) Smear Tech's Comments PT INR D-Dimer O2 Saturation ABG pH at Pt Temp ABG pH (Temp Correct) ABG pCO2 at Pt Temp ABG pCO2 (Temp Corrct ABG pO2 at Pt Temp ABG pO2 (Temp Correct ABG HCO3 ABG Base Excess (Actual) Sodium Potassium Chloride Carbon Dioxide Anion Gap BUN Creatinine Estim Creat Clear Calc Estimated GFR POC Glucose 126 H 113 121 H Random Glucose Fasting Glucose Estimat Average Glucose Hemoglobin A1c % Calcium Phosphorus Magnesium Total Bilirubin AST ALT Alkaline Phosphatase Troponin I High Sens Total Protein Albumin Cortisol Baseline Cortisol 30 Minute Cortisol 60 Minute ACTH Resp to [place] Cortisol Sreekanth Time 1 Cortisol Sreekanth Time 2 Cortisol Sreekanth Time 3 ACTH Comment 01/23/21 01/23/21 01/23/21 07:49 12:01 16:52 WBC RBC Hgb Hct MCV MCH MCHC RDW Plt Count MPV Immature Gran % (Auto) Neut % (Auto) Lymph % (Auto) [place] % (Auto) Eos % (Auto) Baso % (Auto) Lymph # (Auto) [place] # (Auto) Eos # (Auto) Baso # (Auto) Abs Immat Gran (auto) Absolute Neuts (auto) Absolute Nucleated RBC Nucleated RBC % (auto) Smear Tech's Comments PT INR D-Dimer O2 Saturation ABG pH at Pt Temp ABG pH (Temp Correct) ABG pCO2 at Pt Temp ABG pCO2 (Temp Corrct ABG pO2 at Pt Temp ABG pO2 (Temp Correct ABG HCO3 ABG Base Excess (Actual) Sodium 133 L Potassium 4.6 Chloride 96 Carbon Dioxide 31 H Anion Gap 11 L BUN 20 H Creatinine 0.83 Estim Creat Clear Calc 51.9 Estimated GFR > 60 POC Glucose 122 H 137 H Random Glucose Fasting Glucose 125 H D Estimat Average Glucose Hemoglobin A1c % Calcium 8.7 Phosphorus Magnesium Total Bilirubin 0.2 AST 27 ALT 45 H Alkaline Phosphatase 154 H Troponin I High Sens Total Protein 6.1 L Albumin 2.8 L Cortisol Baseline Cortisol 30 Minute Cortisol 60 Minute ACTH Resp to [place] Cortisol Sreekanth Time 1 Cortisol Sreekanth Time 2 Cortisol Sreekanth Time 3 ACTH Comment 01/23/21 01/24/21 01/24/21 21:10 05:26 16:40 WBC RBC Hgb Hct MCV MCH MCHC RDW Plt Count MPV Immature Gran % (Auto) Neut % (Auto) Lymph % (Auto) [place] % (Auto) Eos % (Auto) Baso % (Auto) Lymph # (Auto) [place] # (Auto) Eos # (Auto) Baso # (Auto) Abs Immat Gran (auto) Absolute Neuts (auto) Absolute Nucleated RBC Nucleated RBC % (auto) Smear Tech's Comments PT INR D-Dimer O2 Saturation ABG pH at Pt Temp ABG pH (Temp Correct) ABG pCO2 at Pt Temp ABG pCO2 (Temp Corrct ABG pO2 at Pt Temp ABG pO2 (Temp Correct ABG HCO3 ABG Base Excess (Actual) Sodium Potassium Chloride Carbon Dioxide Anion Gap BUN Creatinine Estim Creat Clear Calc Estimated GFR POC Glucose 114 117 H 107 Random Glucose Fasting Glucose Estimat Average Glucose Hemoglobin A1c % Calcium Phosphorus Magnesium Total Bilirubin AST ALT Alkaline Phosphatase Troponin I High Sens Total Protein Albumin Cortisol Baseline Cortisol 30 Minute Cortisol 60 Minute ACTH Resp to [place] Cortisol Sreekanth Time 1 Cortisol Sreekanth Time 2 Cortisol Sreekanth Time 3 ACTH Comment 01/25/21 05:25 WBC RBC Hgb Hct MCV MCH MCHC RDW Plt Count MPV Immature Gran % (Auto) Neut % (Auto) Lymph % (Auto) [place] % (Auto) Eos % (Auto) Baso % (Auto) Lymph # (Auto) [place] # (Auto) Eos # (Auto) Baso # (Auto) Abs Immat Gran (auto) Absolute Neuts (auto) Absolute Nucleated RBC Nucleated RBC % (auto) Smear Tech's Comments PT INR D-Dimer O2 Saturation ABG pH at Pt Temp ABG pH (Temp Correct) ABG pCO2 at Pt Temp ABG pCO2 (Temp Corrct ABG pO2 at Pt Temp ABG pO2 (Temp Correct ABG HCO3 ABG Base Excess (Actual) Sodium Potassium Chloride Carbon Dioxide Anion Gap BUN Creatinine Estim Creat Clear Calc Estimated GFR POC Glucose 90 Random Glucose Fasting Glucose Estimat Average Glucose Hemoglobin A1c % Calcium Phosphorus Magnesium Total Bilirubin AST ALT Alkaline Phosphatase Troponin I High Sens Total Protein Albumin Cortisol Baseline Cortisol 30 Minute Cortisol 60 Minute ACTH Resp to [place] Cortisol Sreekanth Time 1 Cortisol Sreekanth Time 2 Cortisol Sreekanth Time 3 ACTH Comment Airway Mallampati Class: II Neck ROM: Full Heart: RRR Lungs: CTA
[2021-01-25] MEDS: LORazepam 0.5 MG TABLET PO ×4 (08:48→21:14)
--- NOTE | 2021-01-25 09:53 | P.PNPSI_ITS ---
Subjective Subjective Date of Service: 01/25/21 Reason For Visit: severe depression Subjective Notes: Conditional Voluntary Interim History: pt tolerated ect tolerating prozac adderall Medication Compliance: Yes Side effects from medications: No Attending Groups: No Mental Status Exam Mental Status Exam Patient Appearance: Fatigued and Disheveled Patient Orientation: Person, Place, Time and Situation Level of Consciousness: Drowsy Patient Behavior: Passive Mood Description: Depressed, Anxious, Sad and Apprehensive Affect Description: Depressed, Anxious and Apprehensive Ability to Follow Directions: Good Speech Pattern: Clear, Impoverished and Monotone Hallucinations: None Delusions: Not Present Thought Process: Rumination Thought Content: positive for Preoccupation, positive for Suicidal Ideation (passive ) and negative for Homicidal Ideation Depressive Symptoms: Increased Anxiety, Increased Irritability, Thoughts of /Suicide and Difficulty Concentrating Judgement: Fair Diagnostics Vital Signs (24Hr): Vital Signs - 24 hr 01/24/21 12:00 01/24/21 16:00 01/24/21 20:00 Temperature 97.8 F 98.4 F 97.3 F Pulse Rate 68 68 80 Respiratory Rate 16 16 16 Blood Pressure 104/64 110/70 Pulse Oximetry 94 93 01/25/21 05:15 01/25/21 05:33 01/25/21 06:40 Temperature 97.5 F 97.5 F 98.8 F Pulse Rate 82 82 80 Respiratory Rate 32 H 32 H 20 Blood Pressure 97/62 97/62 129/80 Pulse Oximetry 92 92 96 01/25/21 07:39 01/25/21 07:44 01/25/21 07:49 Temperature 98.5 F Pulse Rate 79 80 88 Respiratory Rate 17 18 18 Blood Pressure 111/69 121/81 138/84 Pulse Oximetry 100 98 99 01/25/21 07:54 01/25/21 08:09 Temperature Pulse Rate 97 95 Respiratory Rate 20 20 Blood Pressure 149/85 H 150/91 H Pulse Oximetry 97 95 Body Mass Index 17.5 Labs Results: 01/15/21 14:51 01/23/21 07:49 Labs: Laboratory Results - last 48 hr 01/23/21 01/23/21 01/23/21 12:01 16:52 21:10 POC Glucose 122 H 137 H 114 01/24/21 01/24/21 01/25/21 05:26 16:40 05:25 POC Glucose 117 H 107 90 Imaging Radiology Impressions: ITS Impressions Modified Barium Swallow 01/07/21 14:15 IMPRESSION: Laryngeal penetration and occasional aspiration as described above. Please refer to speech pathology report for details. Chest X-Ray 01/10/21 09:11 IMPRESSION: Severe chronic interstitial lung disease. No evidence of acute superimposed pneumonitis. Medications Medications Current Medications Generic Name Dose Route Start Last Admin Trade Name Freq PRN Reason Stop Dose Admin Acetaminophen 650 mg 01/09/21 15:51 01/16/21 17:00 Acetaminophen 325 Mg Tablet G-TUBE 650 mg Q4H PRN Administration Pain, Mild (Pain Scale 1-3) Al Hydroxide/Mg Hydroxide 30 ml 01/08/21 15:46 Magnesium Hydrox/Alum Hydrox 30 Ml Oral.Susp G-TUBE Q4H PRN Dyspepsia Amphetamine/Dextroamphetamine 2.5 mg 01/22/21 08:00 01/25/21 08:42 Amphetamine Mixed Salts 10 Mg Tablet G-TUBE 2.5 mg BID@0800,1300 DOMINICK Administration Brexpiprazole 1.5 mg 01/25/21 09:24 Brexpiprazole 1 Mg Tablet PO DAILY DOMINICK Budesonide 2 puff 12/31/20 20:00 01/25/21 08:42 Budesonide 180 Mcg Aer.Pow.Ba INHALE 2 puff RBID DOMINICK Administration Budesonide 2 puff 01/25/21 20:00 Budesonide 180 Mcg Aer.Pow.Ba INHALE RBID DOMINICK Clotrimazole 1 appl 01/06/21 21:00 01/25/21 08:42 Clotrimazole 1 % Cream 15 Gm Tube TOPICAL 1 appl BID DOMINICK Administration Protocol Famotidine 20 mg 01/09/21 09:00 01/25/21 08:43 Famotidine 20 Mg Tablet G-TUBE 20 mg DAILY DOMINICK Administration Famotidine 20 mg 01/25/21 09:24 Famotidine 20 Mg Tablet PO DAILY DOMINICK Fluoxetine HCl 2 mg 01/23/21 09:00 01/25/21 08:39 Fluoxetine Hcl Oral Solution 20 Mg/5 Ml Solution PO 2 mg DAILY DOMINICK Administration Hydrocortisone 10 mg 01/23/21 07:00 01/25/21 08:43 Hydrocortisone 10 Mg Tablet PO 10 mg DAILY@0700 DOMINICK Administration Hydrocortisone 2.5 mg 01/23/21 19:00 01/24/21 20:54 Hydrocortisone 10 Mg Tablet PO 2.5 mg DAILY@1900 [facility] Administration Hydrocortisone 5 mg 01/23/21 13:00 01/24/21 13:20 Hydrocortisone 10 Mg Tablet PO 5 mg DAILY@1300 [facility] Administration Lorazepam 0.5 mg 01/18/21 10:29 01/25/21 08:48 Lorazepam 0.5 Mg Tablet PO 0.5 mg Q4H PRN Administration anxiety/restlessness Mirtazapine 7.5 mg 01/14/21 21:00 01/24/21 20:54 Mirtazapine 7.5 Mg Tablet G-TUBE 7.5 mg BEDTIME DOMINICK Administration Mirtazapine 15 mg 01/25/21 21:00 Mirtazapine 15 Mg Tablet PO BEDTIME [facility] Patient Own 1 each 01/08/21 21:00 Medication ( G-TUBE Nintedanib 150) BID [facility] Nystatin 400,000 unit 01/15/21 17:00 01/25/21 08:41 Nystatin Oral Susp 500,000 Unit/5 Ml Oral.Susp PO 400,000 unit QID [facility] Administration Protocol Omeprazole 40 mg 01/08/21 16:30 01/25/21 08:39 Omeprazole 20 Mg/10 Ml Susp.Recon G-TUBE 40 mg BID@0630,1630 [facility] Administration Ondansetron HCl 4 mg 01/08/21 12:53 Ondansetron Hcl 4 Mg/2 Ml Vial IVPUSH ONCE PRN Nausea and Vomiting Prochlorperazine Edisylate 5 mg 12/31/20 23:21 01/06/21 09:42 Prochlorperazine Edisylate 10 Mg/2 Ml Vial IM 5 mg Q6H PRN Administration Nausea and Vomiting Thiamine HCl 100 mg 01/09/21 09:00 01/25/21 08:43 Thiamine Hcl 100 Mg Tablet G-TUBE 100 mg DAILY [facility] Administration Thiamine HCl 100 mg 01/25/21 09:24 Thiamine Hcl 100 Mg Tablet PO DAILY [facility] Allergies Allergies Allergy/AdvReac Type Severity Reaction Status Date / Time Sulfa (Sulfonamide Allergy Unknown UNKNOWN Verified 12/01/20 09:47 Antibiotics) [SULFA (SULFONAMIDE ANTIBIOTICS)] zoster vaccine live Allergy Hives Verified 12/01/20 09:47 Assessment & Plan Assessment & Plan (1) Dysphagia: Qualifiers: Dysphagia type: unspecified Qualified Code(s): R13.10 - Dysphagia, unspecified Status: Acute Code(s): R13.10 - Dysphagia, unspecified (2) Pulmonary fibrosis: Status: Acute Code(s): J84.10 - Pulmonary fibrosis, unspecified (3) Chronic respiratory failure: Qualifiers: Respiratory failure complication: hypoxia Qualified Code(s): J96.11 - Chronic respiratory failure with hypoxia Status: Acute Code(s): J96.10 - Chronic respiratory failure, unspecified whether with hypoxia or hypercapnia (4) Bipolar I disorder with depression, severe: Status: Acute Code(s): F31.4 - Bipolar disorder, current episode depressed, severe, without psychotic features (5) Severe protein-calorie malnutrition: Status: Acute Code(s): E43 - Unspecified severe protein-calorie malnutrition Assessment and Plan: Continue per treatment team: IMPRESSION:bipolar depression cont ECT tolerated today Protein calorie malnutrition Continue PEG labs ordered spoke with dietary check electrolytes Pulmonary fibrosis aspiration continue NPO r/o steroid insuff acth stim test Case reviewed with Dr. Turcios adrenal insuff coordinate with Nephrology/endocrine started on hydrocortisone Greater than 50% of the session was spent on counseling and/or coordination of care Reason for contiued inpatient stay Substantial Risk for: rapid decompensation and med/psych decompensation
--- NOTE | 2021-01-25 10:11 | MHC.CLN ---
F/U PT'S TF ON HOLD TODAY R/T ECT TREATMENT SERUM NA ELEVATED 01/23 WHEN FEEDING TO RESUME; RECOMMEND OSMOLITE 1.5 AT MAX GOAL RATE 50CC/HR TO PROVIDE 1800KCALS (35KCALS/KG), 75G PROTEIN (1.5G/KG), 914CC FREE WATER FROM FORMULA NOTED NEPHROLOGY RECOMMENDING FLUID RESTRICTION 1L PER DAY 01/22/21 FORMULA TO PROMOTE WEIGHT GAIN; GOAL 1-2# PER WEEK STRICT WEEKLY WEIGHTS; RECOMMEND USING SAME SCALE (STANDING SCALE VS BED SCALE CAN EFFECT ACCURACY) WHEN OBTAINING WEIGHTS MONITOR TOLERANCE, RESIDUALS AND LYTES FOLLOWING
[2021-01-25] MEDS: Brexpiprazole 1 MG TABLET 1.5 MG PO (10:17)
[2021-01-25 12:29] LABS: Glucose, Whole Blood 155 mg/dL (60-115)
[2021-01-25] MEDS: Hydrocortisone 10 MG TABLET 5 MG PO (12:54)
[2021-01-25 16:56] LABS: Glucose, Whole Blood 145 mg/dL (60-115)
[2021-01-25 20:06] LABS: Glucose, Whole Blood 84 mg/dL (60-115)
[2021-01-25] MEDS: Hydrocortisone 10 MG TABLET 2.5 MG PO (21:12)
[2021-01-25] MEDS: Mirtazapine 15 MG TABLET PO (21:13)
[2021-01-25] MEDS: Mirtazapine 7.5 MG TABLET G-TUBE (21:14)
[2021-01-26 01:50] VITALS: BP 94/63; PULSE 77; RESP 26; TEMP 36.2; O2SAT 95
[2021-01-26 06:28] LABS: Glucose, Whole Blood 124 mg/dL (60-115)
[2021-01-26 08:00] VITALS: BP 110/58; PULSE 80; RESP 16; TEMP 36.8; O2SAT 97
[2021-01-26] MEDS: Amphetamine Mixed Salts 10 MG TABLET 2.5 MG G-TUBE ×2 (10:04→13:59)
[2021-01-26] MEDS: Nystatin Oral Susp 500,000 UNIT/5 ML ORAL.SUSP 400000 UNIT PO ×4 (10:04→20:46)
[2021-01-26] MEDS: Famotidine 20 MG TABLET G-TUBE (10:04)
[2021-01-26] MEDS: Thiamine HCL 100 MG TABLET G-TUBE (10:05)
[2021-01-26] MEDS: Hydrocortisone 10 MG TABLET PO (10:05)
[2021-01-26] MEDS: FLUoxetine HCl Oral Solution 20 MG/5 ML SOLUTION PO (10:05)
[2021-01-26] MEDS: Thiamine HCL 100 MG TABLET PO (10:06)
[2021-01-26] MEDS: Famotidine 20 MG TABLET PO (10:06)
[2021-01-26] MEDS: Brexpiprazole 1 MG TABLET 1.5 MG PO (10:08)
[2021-01-26] MEDS: Clotrimazole 1 % Cream 15 GM TUBE 1 APPL TOPICAL ×2 (10:09→22:03)
[2021-01-26] MEDS: Budesonide 180 MCG AER.POW.BA 2 PUFF INHALE ×3 (10:09→22:04)
[2021-01-26 12:00] VITALS: BP 102/68; PULSE 58; O2SAT 95
[2021-01-26] MEDS: Hydrocortisone 10 MG TABLET 5 MG PO (13:59)
--- NOTE | 2021-01-26 15:52 | P.PNPSI_ITS ---
Subjective Subjective Date of Service: 01/27/21 Reason For Visit: severe depression Subjective Notes: Conditional Voluntary Interim History: Patient tolerated ECT seen with and social work discussed treatment with ECT and then hopeful transition to special program in [facility] for swallowing disorders Diagnostics Vital Signs (24Hr): Vital Signs - 24 hr 01/25/21 16:15 01/25/21 20:30 01/26/21 01:50 Temperature 98.0 F 98.0 F 97.2 F Pulse Rate 83 71 77 Respiratory Rate 28 H 26 H 26 H Blood Pressure 95/62 99/59 L 94/63 Pulse Oximetry 94 94 95 01/26/21 08:00 01/26/21 12:00 Temperature 98.3 F Pulse Rate 80 58 Respiratory Rate 16 Blood Pressure 110/58 L 102/68 Pulse Oximetry 97 95 Body Mass Index 17.5 Labs Results: 01/15/21 14:51 01/23/21 07:49 Labs: Laboratory Results - last 48 hr 01/24/21 01/25/21 01/25/21 16:40 05:25 12:11 POC Glucose 107 90 155 H 01/25/21 01/25/21 01/26/21 16:47 19:59 05:53 POC Glucose 145 H 84 124 H Imaging Radiology Impressions: ITS Impressions Modified Barium Swallow 01/07/21 14:15 IMPRESSION: Laryngeal penetration and occasional aspiration as described above. Please refer to speech pathology report for details. Chest X-Ray 01/10/21 09:11 IMPRESSION: Severe chronic interstitial lung disease. No evidence of acute superimposed pneumonitis. Medications Medications Current Medications Generic Name Dose Route Start Last Admin Trade Name Freq PRN Reason Stop Dose Admin Acetaminophen 650 mg 01/09/21 15:51 01/16/21 17:00 Acetaminophen 325 Mg Tablet G-TUBE 650 mg Q4H PRN Administration Pain, Mild (Pain Scale 1-3) Al Hydroxide/Mg Hydroxide 30 ml 01/08/21 15:46 Magnesium Hydrox/Alum Hydrox 30 Ml Oral.Susp G-TUBE Q4H PRN Dyspepsia Amphetamine/Dextroamphetamine 2.5 mg 01/22/21 08:00 01/26/21 13:59 Amphetamine Mixed Salts 10 Mg Tablet G-TUBE 2.5 mg BID@0800,1300 DOMINICK Administration Brexpiprazole 1.5 mg 01/25/21 09:24 01/26/21 10:08 Brexpiprazole 1 Mg Tablet PO 1.5 mg DAILY DOMINICK Administration Budesonide 2 puff 12/31/20 20:00 01/26/21 10:09 Budesonide 180 Mcg Aer.Pow.Ba INHALE 2 puff RBID DOMINICK Administration Budesonide 2 puff 01/25/21 20:00 01/26/21 10:10 Budesonide 180 Mcg Aer.Pow.Ba INHALE 2 puff RBID DOMINICK Administration Clotrimazole 1 appl 01/06/21 21:00 01/26/21 10:09 Clotrimazole 1 % Cream 15 Gm Tube TOPICAL 1 appl BID DOMINICK Administration Protocol Famotidine 20 mg 01/09/21 09:00 01/26/21 10:04 Famotidine 20 Mg Tablet G-TUBE 20 mg DAILY DOMINICK Administration Famotidine 20 mg 01/25/21 09:24 01/26/21 10:06 Famotidine 20 Mg Tablet PO 20 mg DAILY DOMINICK Administration Fluoxetine HCl 2 mg 01/23/21 09:00 01/26/21 10:05 Fluoxetine Hcl Oral Solution 20 Mg/5 Ml Solution PO 2 mg DAILY DOMINICK Administration Hydrocortisone 10 mg 01/23/21 07:00 01/26/21 10:05 Hydrocortisone 10 Mg Tablet PO 10 mg DAILY@0700 DOMINICK Administration Hydrocortisone 2.5 mg 01/23/21 19:00 01/25/21 21:12 Hydrocortisone 10 Mg Tablet PO 2.5 mg DAILY@1900 DOMINICK Administration Hydrocortisone 5 mg 01/23/21 13:00 01/26/21 13:59 Hydrocortisone 10 Mg Tablet PO 5 mg DAILY@1300 DOMINICK Administration Lorazepam 0.5 mg 01/18/21 10:29 01/25/21 21:14 Lorazepam 0.5 Mg Tablet PO 0.5 mg Q4H PRN Administration anxiety/restlessness Mirtazapine 7.5 mg 01/14/21 21:00 01/25/21 21:14 Mirtazapine 7.5 Mg Tablet G-TUBE 7.5 mg BEDTIME DOMINICK Administration Mirtazapine 15 mg 01/25/21 21:00 01/25/21 21:13 Mirtazapine 15 Mg Tablet PO 15 mg BEDTIME DOMINICK Administration Patient Own 1 each 01/08/21 21:00 Medication ( G-TUBE Nintedanib 150) BID DOMINICK Nystatin 400,000 unit 01/15/21 17:00 01/26/21 13:58 Nystatin Oral Susp 500,000 Unit/5 Ml Oral.Susp PO 400,000 unit QID DOMINICK Administration Protocol Omeprazole 40 mg 01/08/21 16:30 01/26/21 05:51 Omeprazole 20 Mg/10 Ml Susp.Recon G-TUBE 40 mg BID@0630,1630 DOMINICK Administration Ondansetron HCl 4 mg 01/08/21 12:53 Ondansetron Hcl 4 Mg/2 Ml Vial IVPUSH ONCE PRN Nausea and Vomiting Prochlorperazine Edisylate 5 mg 12/31/20 23:21 01/06/21 09:42 Prochlorperazine Edisylate 10 Mg/2 Ml Vial IM 5 mg Q6H PRN Administration Nausea and Vomiting Thiamine HCl 100 mg 01/09/21 09:00 01/26/21 10:05 Thiamine Hcl 100 Mg Tablet G-TUBE 100 mg DAILY DOMINICK Administration Thiamine HCl 100 mg 01/25/21 09:24 01/26/21 10:06 Thiamine Hcl 100 Mg Tablet PO 100 mg DAILY DOMINICK Administration Allergies Allergies Allergy/AdvReac Type Severity Reaction Status Date / Time Sulfa (Sulfonamide Allergy Unknown UNKNOWN Verified 12/01/20 09:47 Antibiotics) [SULFA (SULFONAMIDE ANTIBIOTICS)] zoster vaccine live Allergy Hives Verified 12/01/20 09:47 Assessment & Plan Assessment & Plan (1) Dysphagia: Qualifiers: Dysphagia type: unspecified Qualified Code(s): R13.10 - Dysphagia, unspecified Status: Acute Code(s): R13.10 - Dysphagia, unspecified (2) Pulmonary fibrosis: Status: Acute Code(s): J84.10 - Pulmonary fibrosis, unspecified (3) Chronic respiratory failure: Qualifiers: Respiratory failure complication: hypoxia Qualified Code(s): J96.11 - Chronic respiratory failure with hypoxia Status: Acute Code(s): J96.10 - Chronic respiratory failure, unspecified whether with hypoxia or hypercapnia (4) Bipolar I disorder with depression, severe: Status: Acute Code(s): F31.4 - Bipolar disorder, current episode depressed, severe, without psychotic features (5) Severe protein-calorie malnutrition: Status: Acute Code(s): E43 - Unspecified severe protein-calorie malnutrition Assessment and Plan: Continue per treatment team: IMPRESSION:bipolar depression cont ECT PROZAC ADDERALL Protein calorie malnutrition Continue PEG labs ordered spoke with dietary check electrolytes Pulmonary fibrosis aspiration continue NPO r/o steroid insuff acth stim test Case reviewed with Dr. Turcios adrenal rubensff coordinate with Nephrology/endocrine started on hydrocortisone Greater than 50% of the session was spent on counseling and/or coordination of care Reason for contiued inpatient stay Substantial Risk for: inability to function, rapid decompensation and med/psych decompensation
[2021-01-26] MEDS: LORazepam 0.5 MG TABLET PO ×2 (17:15→22:08)
[2021-01-26 17:27] LABS: Glucose, Whole Blood 123 mg/dL (60-115)
[2021-01-26] MEDS: Mirtazapine 7.5 MG TABLET G-TUBE (20:45)
[2021-01-26] MEDS: Mirtazapine 15 MG TABLET PO (20:45)
[2021-01-26] MEDS: Hydrocortisone 10 MG TABLET 2.5 MG PO (20:46)
[2021-01-26 22:00] VITALS: BP 128/79; PULSE 72; RESP 20; TEMP 36.7; O2SAT 97
[2021-01-27] VITALS (13 sets, daily range): BP systolic 97–126; BP diastolic 66–86; PULSE 75–91; RESP 16–28; TEMP 36.3–36.9; O2SAT 93–99
[2021-01-27 05:58] LABS: Glucose, Whole Blood 93 mg/dL (60-115)
--- NOTE | 2021-01-27 08:04 | MHC.SHP ---
Pre-Procedural Eval Section A The patient is an INPATIENT: Yes Changes since office visit: Yes Changes in Medication and Yes Patient answered all questions; No Cold of Flu in the past 2 weeks and No New Medical Problems The History & Physical has been completed within 30 days and I have reviewed it.: Yes Section B Chief Complaint: severe depression Allergies: Allergies Allergy/AdvReac Type Severity Reaction Status Date / Time Sulfa (Sulfonamide Allergy Unknown UNKNOWN Verified 12/01/20 09:47 Antibiotics) [SULFA (SULFONAMIDE ANTIBIOTICS)] zoster vaccine live Allergy Hives Verified 12/01/20 09:47 Plan I have reviewed the history and physical and performed a pertinent physical examination on my patient. No changes have occurred unless specified.
--- NOTE | 2021-01-27 08:30 | HO.ECTPROC ---
ECT Procedure Note Diagnosis/Treatment Date of Service: 01/27/21 Diagnosis: Bipolar disorder Previous ECT Date: 01/25/21 Current Treatment Number: 5 (but interrupted ) Treatment: Series Interval Clinical Notes: pt perhaps showing some improvement less severe melancholy tolerating ect ECT Settings Device: THYMATRON DGx Electrode Placement: Bifrontal Program/Pulse Width: 0.25 Energy Percent: 100 Seizure Duration By EEG (in seconds): 45 Medications Administration General Anesthetic: Etomidate (12) Muscle Relaxant: Rocuronium (20 mg) Ancillary Medications Miscillaneous Medications: Propofol (20) and Midazolam Airway Management Airway Management: Bag Mask Ventilation Treatment Recommendations No Changes Recommended: No change Pt Tolerated Procedure w/o Issue: Yes
[2021-01-27] MEDS: Hydrocortisone 10 MG TABLET PO (11:29)
[2021-01-27] MEDS: Amphetamine Mixed Salts 10 MG TABLET 2.5 MG G-TUBE (11:32)
[2021-01-27] MEDS: Nystatin Oral Susp 500,000 UNIT/5 ML ORAL.SUSP 400000 UNIT PO ×3 (11:33→21:29)
--- NOTE | 2021-01-27 13:54 | MHC.CLN ---
Addendum entered by Lori Tran RD 01/27/21 14:54: DISCUSSED WITH MD; TF RE-STARTED 01/26/21 OSMOLITE 1.5 AT MAX GOAL RATE 50CC/HR TO PROVIDE 1800KCALS (35KCALS/KG), 75G PROTEIN (1.5G/KG), 914CC FREE WATER FROM FORMULA CHECK LABS, RESIDUALS AND WEIGHT Original Note: F/U PT'S TF ON HOLD NPO DAY 2 NO NEW LABS, NO NEW WT WHEN FEEDING TO RESUME; RECOMMEND OSMOLITE 1.5 AT MAX GOAL RATE 50CC/HR TO PROVIDE 1800KCALS (35KCALS/KG), 75G PROTEIN (1.5G/KG), 914CC FREE WATER FROM FORMULA NOTED NEPHROLOGY RECOMMENDING FLUID RESTRICTION 1L PER DAY 01/22/21 FORMULA TO PROMOTE WEIGHT GAIN; GOAL 1-2# PER WEEK STRICT WEEKLY WEIGHTS; RECOMMEND USING SAME SCALE (STANDING SCALE VS BED SCALE CAN EFFECT ACCURACY) WHEN OBTAINING WEIGHTS MONITOR TOLERANCE, RESIDUALS AND LYTES FOLLOWING
[2021-01-27] MEDS: LORazepam 0.5 MG TABLET PO ×2 (15:13→21:29)
[2021-01-27 16:51] LABS: Glucose, Whole Blood 127 mg/dL (60-115)
[2021-01-27] MEDS: Hydrocortisone 10 MG TABLET 2.5 MG PO (21:30)
[2021-01-27] MEDS: Clotrimazole 1 % Cream 15 GM TUBE 1 APPL TOPICAL (21:31)
[2021-01-27] MEDS: Budesonide 180 MCG AER.POW.BA 2 PUFF INHALE (21:31)
[2021-01-27] MEDS: Mirtazapine 7.5 MG TABLET G-TUBE (21:49)
[2021-01-27 22:07] LABS: Glucose, Whole Blood 103 mg/dL (60-115)
[2021-01-28 05:57] VITALS: BP 106/64; PULSE 76; RESP 28; TEMP 36.7; O2SAT 96
[2021-01-28 06:36] LABS: Glucose, Whole Blood 117 mg/dL (60-115)
[2021-01-28 09:10] LABS: Alanine Aminotransferase 38 U/L (0-40); Albumin Level 2.7 g/dL (3.5-5.0); Alkaline Phosphatase 137 U/L (39-117); Anion Gap 9 (12-20); Aspartate Amino Transferase 26 U/L (5-37); Bilirubin Total 0.4 mg/dL (0.0-1.0); Blood Urea Nitrogen 22 mg/dL (9-16); Calcium 8.6 mg/dL (8.4-10.2); Carbon Dioxide 33 mmol/L (22-29); Chloride 99 mmol/L (96-108); Creatinine Clr Calc Pharmacy 50.1; Estimated Glomerular Filt Rate > 60; Glucose Fasting 128 mg/dL (60-99); Potassium 4.7 mmol/L (3.3-5.1); Sodium 136 mmol/L (135-145); Total Protein 5.9 g/dL (6.5-8.0)
[2021-01-28] MEDS: FLUoxetine HCl Oral Solution 20 MG/5 ML SOLUTION 5 MG PO (10:06)
[2021-01-28] MEDS: Nystatin Oral Susp 500,000 UNIT/5 ML ORAL.SUSP 400000 UNIT PO ×4 (10:06→20:37)
[2021-01-28] MEDS: Hydrocortisone 10 MG TABLET PO (10:07)
[2021-01-28] MEDS: Thiamine HCL 100 MG TABLET G-TUBE (10:07)
[2021-01-28] MEDS: Amphetamine Mixed Salts 10 MG TABLET 2.5 MG G-TUBE ×2 (10:07→13:47)
[2021-01-28] MEDS: Famotidine 20 MG TABLET PO (10:09)
[2021-01-28] MEDS: Budesonide 180 MCG AER.POW.BA 2 PUFF INHALE ×2 (10:13→20:38)
[2021-01-28] MEDS: Clotrimazole 1 % Cream 15 GM TUBE 1 APPL TOPICAL ×2 (10:13→20:38)
[2021-01-28 10:22] VITALS: BP 112/72; PULSE 77; RESP 28; TEMP 36.6; O2SAT 94
[2021-01-28] MEDS: Hydrocortisone 10 MG TABLET 5 MG PO (13:47)
[2021-01-28 13:56] VITALS: BMI 17.0
[2021-01-28 14:20] VITALS: BP 117/69; PULSE 72; RESP 26; TEMP 36.6; O2SAT 95
[2021-01-28 16:16] LABS: Glucose, Whole Blood 142 mg/dL (60-115)
[2021-01-28] MEDS: Hydrocortisone 10 MG TABLET 2.5 MG PO (18:47)
[2021-01-28 19:00] VITALS: BP 119/70; PULSE 74; RESP 20; TEMP 36.6; O2SAT 96
[2021-01-28] MEDS: Mirtazapine 7.5 MG TABLET G-TUBE (20:37)
[2021-01-28] MEDS: LORazepam 0.5 MG TABLET PO (20:37)
[2021-01-28 20:41] LABS: Glucose, Whole Blood 152 mg/dL (60-115)
--- NOTE | 2021-01-28 21:49 | HO.PSYCHPN ---
Subjective Subjective Date of Service: 01/28/21 Reason For Visit: severe depression Subjective Notes: Conditional Voluntary Healthcare Proxy: No Medical Problems Affecting Mental Status: Yes Interim History: Patient tolerated last ECT shows mehta range of affect discussed continuing ECT tomorrow seems to be tolerating it cognitively Medication Compliance: Yes Mental Status Exam Mental Status Exam Patient Appearance: Appropriate Patient Orientation: Person, Place, Time and Situation Level of Consciousness: Awake Patient Behavior: Appropriate and Passive Mood Description: Depressed, Flat and Apprehensive Affect Description: Depressed and Anxious Ability to Follow Directions: Good Speech Pattern: Clear, Impoverished and Monotone Hallucinations: None Delusions: Not Present Thought Process: Slowed Thinking Thought Content: positive for Preoccupation, negative for Suicidal Ideation (passive ) and negative for Homicidal Ideation Depressive Symptoms: Increased Anxiety, Increased Irritability, Thoughts of /Suicide and Difficulty Concentrating Judgement: Fair Diagnostics Vital Signs (24Hr): Vital Signs - 24 hr 01/27/21 22:16 01/28/21 05:57 01/28/21 10:22 Temperature 98.0 F 98.1 F 97.8 F Pulse Rate 75 76 77 Respiratory Rate 20 28 H 28 H Blood Pressure 97/66 106/64 112/72 Pulse Oximetry 95 96 94 01/28/21 14:20 01/28/21 19:00 Temperature 97.9 F 97.9 F Pulse Rate 72 74 Respiratory Rate 26 H 20 Blood Pressure 117/69 119/70 Pulse Oximetry 95 96 Body Mass Index 17.0 Labs Results: 01/15/21 14:51 01/28/21 08:19 Labs: Laboratory Results - last 48 hr 01/27/21 01/27/21 01/27/21 05:28 16:38 21:43 Sodium Potassium Chloride Carbon Dioxide Anion Gap BUN Creatinine Estim Creat Clear Calc Estimated GFR POC Glucose 93 127 H 103 Fasting Glucose Calcium Total Bilirubin AST ALT Alkaline Phosphatase Total Protein Albumin 01/28/21 01/28/21 01/28/21 05:56 08:19 16:13 Sodium 136 Potassium 4.7 Chloride 99 Carbon Dioxide 33 H Anion Gap 9 L BUN 22 H Creatinine 0.86 Estim Creat Clear Calc 50.1 Estimated GFR > 60 POC Glucose 117 H 142 H Fasting Glucose 128 H Calcium 8.6 Total Bilirubin 0.4 AST 26 ALT 38 Alkaline Phosphatase 137 H Total Protein 5.9 L Albumin 2.7 L 01/28/21 19:51 Sodium Potassium Chloride Carbon Dioxide Anion Gap BUN Creatinine Estim Creat Clear Calc Estimated GFR POC Glucose 152 H Fasting Glucose Calcium Total Bilirubin AST ALT Alkaline Phosphatase Total Protein Albumin Imaging Radiology Impressions: ITS Impressions Modified Barium Swallow 01/07/21 14:15 IMPRESSION: Laryngeal penetration and occasional aspiration as described above. Please refer to speech pathology report for details. Chest X-Ray 01/10/21 09:11 IMPRESSION: Severe chronic interstitial lung disease. No evidence of acute superimposed pneumonitis. Medications Medications Current Medications Generic Name Dose Route Start Last Admin Trade Name Freq PRN Reason Stop Dose Admin Acetaminophen 650 mg 01/09/21 15:51 01/16/21 17:00 Acetaminophen 325 Mg Tablet G-TUBE 650 mg Q4H PRN Administration Pain, Mild (Pain Scale 1-3) Al Hydroxide/Mg Hydroxide 30 ml 01/08/21 15:46 Magnesium Hydrox/Alum Hydrox 30 Ml Oral.Susp G-TUBE Q4H PRN Dyspepsia Amphetamine/Dextroamphetamine 2.5 mg 01/22/21 08:00 01/28/21 13:47 Amphetamine Mixed Salts 10 Mg Tablet G-TUBE 2.5 mg BID@0800,1300 DOMINICK Administration Budesonide 2 puff 12/31/20 20:00 01/28/21 20:38 Budesonide 180 Mcg Aer.Pow.Ba INHALE 2 puff RBID DOMINICK Administration Clotrimazole 1 appl 01/06/21 21:00 01/28/21 20:38 Clotrimazole 1 % Cream 15 Gm Tube TOPICAL 1 appl BID DOMINICK Administration Protocol Famotidine 20 mg 01/09/21 09:00 01/28/21 13:45 Famotidine 20 Mg Tablet G-TUBE Not Given DAILY DOMINICK Fluoxetine HCl 5 mg 01/27/21 09:00 01/28/21 10:06 Fluoxetine Hcl Oral Solution 20 Mg/5 Ml Solution PO 5 mg DAILY DOMINICK Administration Hydrocortisone 2.5 mg 01/23/21 19:00 01/28/21 18:47 Hydrocortisone 10 Mg Tablet PO 2.5 mg DAILY@1900 DOMINICK Administration Hydrocortisone 5 mg 01/23/21 13:00 01/28/21 13:47 Hydrocortisone 10 Mg Tablet PO 5 mg DAILY@1300 DOMINICK Administration Hydrocortisone 10 mg 01/28/21 08:00 01/28/21 10:07 Hydrocortisone 10 Mg Tablet PO 10 mg DAILY@0800 DOMINICK Administration Lorazepam 0.5 mg 01/18/21 10:29 01/28/21 20:37 Lorazepam 0.5 Mg Tablet PO 0.5 mg Q4H PRN Administration anxiety/restlessness Mirtazapine 7.5 mg 01/14/21 21:00 01/28/21 20:37 Mirtazapine 7.5 Mg Tablet G-TUBE 7.5 mg BEDTIME DOMINICK Administration Patient Own 1 each 01/08/21 21:00 Medication ( G-TUBE Nintedanib 150) BID DOMINICK Nystatin 400,000 unit 01/15/21 17:00 01/28/21 20:37 Nystatin Oral Susp 500,000 Unit/5 Ml Oral.Susp PO 400,000 unit QID DOMINICK Administration Protocol Omeprazole 40 mg 01/08/21 16:30 01/28/21 18:47 Omeprazole 20 Mg/10 Ml Susp.Recon G-TUBE 40 mg BID@0630,1630 DOMINICK Administration Ondansetron HCl 4 mg 01/08/21 12:53 Ondansetron Hcl 4 Mg/2 Ml Vial IVPUSH ONCE PRN Nausea and Vomiting Prochlorperazine Edisylate 5 mg 12/31/20 23:21 01/06/21 09:42 Prochlorperazine Edisylate 10 Mg/2 Ml Vial IM 5 mg Q6H PRN Administration Nausea and Vomiting Thiamine HCl 100 mg 01/09/21 09:00 01/28/21 10:07 Thiamine Hcl 100 Mg Tablet G-TUBE 100 mg DAILY DOMINICK Administration Allergies Allergies Allergy/AdvReac Type Severity Reaction Status Date / Time Sulfa (Sulfonamide Allergy Unknown UNKNOWN Verified 12/01/20 09:47 Antibiotics) [SULFA (SULFONAMIDE ANTIBIOTICS)] zoster vaccine live Allergy Hives Verified 12/01/20 09:47 Assessment & Plan Assessment & Plan (1) Dysphagia: Qualifiers: Dysphagia type: unspecified Qualified Code(s): R13.10 - Dysphagia, unspecified Status: Acute Code(s): R13.10 - Dysphagia, unspecified (2) Pulmonary fibrosis: Status: Acute Code(s): J84.10 - Pulmonary fibrosis, unspecified (3) Chronic respiratory failure: Qualifiers: Respiratory failure complication: hypoxia Qualified Code(s): J96.11 - Chronic respiratory failure with hypoxia Status: Acute Code(s): J96.10 - Chronic respiratory failure, unspecified whether with hypoxia or hypercapnia (4) Bipolar I disorder with depression, severe: Status: Acute Code(s): F31.4 - Bipolar disorder, current episode depressed, severe, without psychotic features (5) Severe protein-calorie malnutrition: Status: Acute Code(s): E43 - Unspecified severe protein-calorie malnutrition Assessment and Plan: Continue per treatment team: IMPRESSION:bipolar depression cont ECT PROZAC ADDERALL monitor for adverse effects Protein calorie malnutrition Continue PEG labs ordered spoke with dietary check electrolytes Pulmonary fibrosis aspiration continue NPO cont hydrocortizone Greater than 50% of the session was spent on counseling and/or coordination of care Reason for contiued inpatient stay Substantial Risk for: inability to function, rapid decompensation and med/psych decompensation
[2021-01-29] VITALS (8 sets, daily range): BP systolic 113–207; BP diastolic 67–106; PULSE 72–85; RESP 16–24; TEMP 36.2; O2SAT 94–97
[2021-01-29 06:54] LABS: Glucose, Whole Blood 87 mg/dL (60-115)
--- NOTE | 2021-01-29 10:15 | HO.ANESPROP2 ---
[facility] Active Problems Active Problems: All Active Problems (Updated 01/22/21 @ 13:04 by Nile Quezada MD) Adrenal insufficiency (Acute) Severe protein-calorie malnutrition (Acute) Severe malnutrition (Acute) Chronic respiratory failure (Acute) Hyponatremia (Acute) Dysphagia (Acute) Metabolic encephalopathy (Acute) Pneumonia (Acute) Hypotension (Acute) Swallowing dysfunction (Acute) Increased oxygen demand (Acute) Pulmonary fibrosis (Acute) Bipolar I disorder with depression, severe (Acute) CKD (chronic kidney disease) stage 3, GFR 30-59 ml/min (Acute) Bipolar disorder (Acute) Past Medical History Medical History Anemia Anxiety Bronchiectasis Cerebrovascular disease Chronic hyponatremia Chronic respiratory failure CKD (chronic kidney disease) stage 3, GFR 30-59 ml/min Degenerative arthritis Depression History of electroconvulsive therapy Hx of bladder cancer Hydrocele Pulmonary fibrosis Pulmonary fibrosis Family History Family History Father Colon cancer Family history of problems with anesthesia: No Surgical History Surgical History History of bladder surgery History of Problems with Anesthesia: Yes (N&V) Social History Social History Household Members: Spouse Housing: Apartment Do you presently have visiting nurse or other home services: Yes Smoking Status: Former smoker Tobacco Type: Cigarette Packs Per Day: 1 Cigarettes Per Day: 20.0 Years Smoked: 20 Smoked in Last 30 Days: No Patient Interested in Nicotine Replacement: No Patient Given Instructions on How to Stop Smoking: No Second Hand Smoke Exposure: No Use of substances other than those prescribed or required for medical reasons: No Substance Use Type: Marijuana Currently Displaying Signs/Symptoms of Drug Intoxication Withdrawal: No Spiritual Healthcare Practices: none Muslim Healthcare Practices: none Cultural Healthcare Practices: none Are you DNR?: No Advance Directives: Yes Advance Directives on File: Yes Advance Directives Date on File: 11/27/20 Do you have thoughts of harming others: None Do you have a plan to hurt others: No Plan Recently lost weight without trying: Yes How much weight loss: 2-13 pounds Eating poorly because of decreased appetite: Yes Nutrition screen score: 4 Nutrition Risks: Emaciation/Cachexia Poor oral hygiene: No service: No Current occupational status: retired and disabled Sexual orientation: Straight/Heterosexual Meds Allergies Allergy/AdvReac Type Severity Reaction Status Date / Time Sulfa (Sulfonamide Allergy Unknown UNKNOWN Verified 12/01/20 09:47 Antibiotics) [SULFA (SULFONAMIDE ANTIBIOTICS)] zoster vaccine live Allergy Hives Verified 12/01/20 09:47 Active Medications: Current Medications Generic Name Dose Route Start Last Admin Trade Name Freq PRN Reason Stop Dose Admin Acetaminophen 650 mg 01/09/21 15:51 01/16/21 17:00 Acetaminophen 325 Mg Tablet G-TUBE 650 mg Q4H PRN Administration Pain, Mild (Pain Scale 1-3) Al Hydroxide/Mg Hydroxide 30 ml 01/08/21 15:46 Magnesium Hydrox/Alum Hydrox 30 Ml Oral.Susp G-TUBE Q4H PRN Dyspepsia Amphetamine/Dextroamphetamine 2.5 mg 01/22/21 08:00 01/28/21 13:47 Amphetamine Mixed Salts 10 Mg Tablet G-TUBE 2.5 mg BID@0800,1300 DOMINICK Administration Budesonide 2 puff 12/31/20 20:00 01/28/21 20:38 Budesonide 180 Mcg Aer.Pow.Ba INHALE 2 puff RBID DOMINICK Administration Clotrimazole 1 appl 01/06/21 21:00 01/28/21 20:38 Clotrimazole 1 % Cream 15 Gm Tube TOPICAL 1 appl BID DOMINICK Administration Protocol Famotidine 20 mg 01/09/21 09:00 01/28/21 13:45 Famotidine 20 Mg Tablet G-TUBE Not Given DAILY [facility] Fluoxetine HCl 5 mg 01/27/21 09:00 01/28/21 10:06 Fluoxetine Hcl Oral Solution 20 Mg/5 Ml Solution PO 5 mg DAILY DOMINICK Administration Hydrocortisone 2.5 mg 01/23/21 19:00 01/28/21 18:47 Hydrocortisone 10 Mg Tablet PO 2.5 mg DAILY@1900 DOMINICK Administration Hydrocortisone 5 mg 01/23/21 13:00 01/28/21 13:47 Hydrocortisone 10 Mg Tablet PO 5 mg DAILY@1300 DOMINICK Administration Hydrocortisone 10 mg 01/28/21 08:00 01/28/21 10:07 Hydrocortisone 10 Mg Tablet PO 10 mg DAILY@0800 DOMINICK Administration Lorazepam 0.5 mg 01/18/21 10:29 01/28/21 20:37 Lorazepam 0.5 Mg Tablet PO 0.5 mg Q4H PRN Administration anxiety/restlessness Mirtazapine 7.5 mg 01/14/21 21:00 01/28/21 20:37 Mirtazapine 7.5 Mg Tablet G-TUBE 7.5 mg BEDTIME DOMINICK Administration Patient Own 1 each 01/08/21 21:00 Medication ( G-TUBE Nintedanib 150) BID DOMINICK Nystatin 400,000 unit 01/15/21 17:00 01/28/21 20:37 Nystatin Oral Susp 500,000 Unit/5 Ml Oral.Susp PO 400,000 unit QID DOMINICK Administration Protocol Omeprazole 40 mg 01/08/21 16:30 01/28/21 18:47 Omeprazole 20 Mg/10 Ml Susp.Recon G-TUBE 40 mg BID@0630,1630 DOMINICK Administration Ondansetron HCl 4 mg 01/08/21 12:53 Ondansetron Hcl 4 Mg/2 Ml Vial IVPUSH ONCE PRN Nausea and Vomiting Prochlorperazine Edisylate 5 mg 12/31/20 23:21 01/06/21 09:42 Prochlorperazine Edisylate 10 Mg/2 Ml Vial IM 5 mg Q6H PRN Administration Nausea and Vomiting Thiamine HCl 100 mg 01/09/21 09:00 01/28/21 10:07 Thiamine Hcl 100 Mg Tablet G-TUBE 100 mg DAILY DOMINICK Administration Home Medications Medication Instructions Recorded Confirmed Last Taken Type Latuda 1 tab PO DAILY 11/25/20 12/31/20 11/25/20 History Ofev 150 mg PO BID 11/25/20 12/31/20 11/25/20 History docusate sodium [Stool Softener] 1 cap PO BID PRN 11/25/20 12/31/20 11/25/20 History lorazepam 1 tab PO BID PRN 11/25/20 12/31/20 11/25/20 History mirtazapine 1 tab PO BEDTIME 11/25/20 12/31/20 11/24/20 History ondansetron 1 tab PO Q8H PRN 11/25/20 12/31/20 Unknown History quetiapine 37.5 mg PO BEDTIME 11/25/20 12/31/20 11/24/20 History Exam Exam Date and Time: January 29, 2021 1015 Height,Weight and Vital Signs: Height 5 ft 7 in Weight 49.4 kg Last Vital Signs Temp 97.2 F 01/29/21 08:41 Pulse 72 01/29/21 08:41 Resp 16 01/29/21 08:41 BP 124/67 01/29/21 08:41 Pulse Ox 97 01/29/21 08:41 Pertinent Lab Results Pertinent Lab Results: Laboratory Tests 01/01/21 01/05/21 01/08/21 14:34 15:05 07:46 WBC 10.6 RBC 3.17 L Hgb 10.0 L Hct 29.4 L MCV 92.7 MCH 31.5 MCHC 34.0 RDW 15.3 Plt Count 319 MPV 10.7 Immature Gran % (Auto) Neut % (Auto) Lymph % (Auto) [place] % (Auto) Eos % (Auto) Baso % (Auto) Lymph # (Auto) [place] # (Auto) Eos # (Auto) Baso # (Auto) Abs Immat Gran (auto) Absolute Neuts (auto) Absolute Nucleated RBC 0.000 Nucleated RBC % (auto) 0.0 Smear Tech's Comments PT INR D-Dimer O2 Saturation ABG pH at Pt Temp ABG pH (Temp Correct) ABG pCO2 at Pt Temp ABG pCO2 (Temp Corrct ABG pO2 at Pt Temp ABG pO2 (Temp Correct ABG HCO3 ABG Base Excess (Actual) Sodium 132 L 131 L Potassium 5.2 H 5.1 Chloride 97 96 Carbon Dioxide 27 26 Anion Gap 13 14 BUN 25 H Creatinine 1.00 Estim Creat Clear Calc 45.7 Estimated GFR > 60 POC Glucose Random Glucose 145 H D Fasting Glucose Estimat Average Glucose Hemoglobin A1c % Calcium 9.2 Phosphorus Magnesium Total Bilirubin 0.5 AST 36 D ALT 29 Alkaline Phosphatase 137 H D Troponin I High Sens Total Protein 6.7 D Albumin 3.1 L D Cortisol Baseline Cortisol 30 Minute Cortisol 60 Minute ACTH Resp to [place] Cortisol Sreekanth Time 1 Cortisol Sreekanth Time 2 Cortisol Sreekanth Time 3 ACTH Comment 01/08/21 01/09/21 01/10/21 07:46 07:12 09:26 WBC 18.1 H RBC 3.44 L Hgb 10.9 L Hct 31.8 L MCV 92.4 MCH 31.7 MCHC 34.3 RDW 15.2 Plt Count 347 MPV 10.8 Immature Gran % (Auto) Neut % (Auto) Lymph % (Auto) [place] % (Auto) Eos % (Auto) Baso % (Auto) Lymph # (Auto) [place] # (Auto) Eos # (Auto) Baso # (Auto) Abs Immat Gran (auto) Absolute Neuts (auto) Absolute Nucleated RBC 0.000 Nucleated RBC % (auto) 0.0 Smear Tech's Comments PT 13.5 H INR 1.1 D-Dimer 994 O2 Saturation ABG pH at Pt Temp ABG pH (Temp Correct) ABG pCO2 at Pt Temp ABG pCO2 (Temp Corrct ABG pO2 at Pt Temp ABG pO2 (Temp Correct ABG HCO3 ABG Base Excess (Actual) Sodium Potassium Chloride Carbon Dioxide Anion Gap BUN Creatinine Estim Creat Clear Calc Estimated GFR POC Glucose Random Glucose Fasting Glucose Estimat Average Glucose Hemoglobin A1c % Calcium Phosphorus Magnesium Total Bilirubin AST ALT Alkaline Phosphatase Troponin I High Sens Total Protein Albumin Cortisol Baseline Cortisol 30 Minute Cortisol 60 Minute ACTH Resp to [place] Cortisol Sreekanth Time 1 Cortisol Sreekanth Time 2 Cortisol Sreekanth Time 3 ACTH Comment 01/10/21 01/10/21 01/10/21 09:26 09:26 09:28 WBC 22.2 H RBC 3.38 L Hgb 10.8 L Hct 31.2 L MCV 92.3 MCH 32.0 MCHC 34.6 RDW 15.1 Plt Count 311 MPV 10.4 Immature Gran % (Auto) 0.5 H Neut % (Auto) 84.9 H Lymph % (Auto) 7.4 L [place] % (Auto) 7.1 Eos % (Auto) 0.0 Baso % (Auto) 0.1 Lymph # (Auto) 1.6 [place] # (Auto) 1.6 H Eos # (Auto) 0.0 Baso # (Auto) 0.0 Abs Immat Gran (auto) 0.12 H Absolute Neuts (auto) 18.8 H Absolute Nucleated RBC 0.000 Nucleated RBC % (auto) 0.0 Smear Tech's Comments VERIFIED PT INR D-Dimer O2 Saturation ABG pH at Pt Temp ABG pH (Temp Correct) ABG pCO2 at Pt Temp ABG pCO2 (Temp Corrct ABG pO2 at Pt Temp ABG pO2 (Temp Correct ABG HCO3 ABG Base Excess (Actual) Sodium 130 L Potassium 4.1 Chloride 95 L Carbon Dioxide 31 H Anion Gap 8 L BUN 18 H Creatinine 0.83 Estim Creat Clear Calc 53.1 Estimated GFR > 60 POC Glucose Random Glucose 151 H Fasting Glucose Estimat Average Glucose Hemoglobin A1c % Calcium 8.3 L D Phosphorus Magnesium Total Bilirubin AST ALT Alkaline Phosphatase Troponin I High Sens 14.4 D Total Protein Albumin Cortisol Baseline Cortisol 30 Minute Cortisol 60 Minute ACTH Resp to [place] Cortisol Sreekanth Time 1 Cortisol Sreekanth Time 2 Cortisol Sreekanth Time 3 ACTH Comment 01/10/21 01/13/21 01/15/21 09:49 07:56 14:51 WBC 11.2 H RBC 3.37 L Hgb 10.6 L Hct 31.9 L MCV 94.7 MCH 31.5 MCHC 33.2 RDW 15.5 Plt Count 382 MPV 10.7 Immature Gran % (Auto) 0.5 H Neut % (Auto) 79.8 H Lymph % (Auto) 13.3 L [place] % (Auto) 5.8 Eos % (Auto) 0.4 Baso % (Auto) 0.2 Lymph # (Auto) 1.5 [place] # (Auto) 0.7 Eos # (Auto) 0.1 Baso # (Auto) 0.0 Abs Immat Gran (auto) 0.06 H Absolute Neuts (auto) 8.9 H Absolute Nucleated RBC 0.000 Nucleated RBC % (auto) 0.0 Smear Tech's Comments PT INR D-Dimer O2 Saturation 98.0 ABG pH at Pt Temp 7.49 H ABG pH (Temp Correct) 7.49 H ABG pCO2 at Pt Temp 40 ABG pCO2 (Temp Corrct 40 ABG pO2 at Pt Temp 99 ABG pO2 (Temp Correct 101 ABG HCO3 31 H ABG Base Excess (Actual) 7.4 Sodium 133 L Potassium 4.6 Chloride 95 L Carbon Dioxide 33 H Anion Gap 10 L BUN 18 H Creatinine 0.78 Estim Creat Clear Calc 57.2 Estimated GFR > 60 POC Glucose Random Glucose 132 H Fasting Glucose Estimat Average Glucose Hemoglobin A1c % Calcium 8.5 Phosphorus Magnesium Total Bilirubin 0.4 AST 27 ALT 20 Alkaline Phosphatase 150 H Troponin I High Sens Total Protein 5.9 L Albumin 2.5 L Cortisol Baseline Cortisol 30 Minute Cortisol 60 Minute ACTH Resp to [place] Cortisol Sreekanth Time 1 Cortisol Sreekanth Time 2 Cortisol Sreekanth Time 3 ACTH Comment 01/15/21 01/18/21 01/19/21 14:51 15:36 22:29 WBC RBC Hgb Hct MCV MCH MCHC RDW Plt Count MPV Immature Gran % (Auto) Neut % (Auto) Lymph % (Auto) [place] % (Auto) Eos % (Auto) Baso % (Auto) Lymph # (Auto) [place] # (Auto) Eos # (Auto) Baso # (Auto) Abs Immat Gran (auto) Absolute Neuts (auto) Absolute Nucleated RBC Nucleated RBC % (auto) Smear Tech's Comments PT INR D-Dimer O2 Saturation ABG pH at Pt Temp ABG pH (Temp Correct) ABG pCO2 at Pt Temp ABG pCO2 (Temp Corrct ABG pO2 at Pt Temp ABG pO2 (Temp Correct ABG HCO3 ABG Base Excess (Actual) Sodium 132 L 132 L Potassium 5.1 5.1 Chloride 94 L 95 L Carbon Dioxide 32 H 31 H Anion Gap 11 L 11 L BUN 22 H Creatinine 0.88 Estim Creat Clear Calc 49.0 Estimated GFR > 60 POC Glucose 112 Random Glucose 165 H Fasting Glucose Estimat Average Glucose Hemoglobin A1c % Calcium 8.8 Phosphorus 3.0 Magnesium 2.1 Total Bilirubin 0.3 AST 34 ALT 55 H Alkaline Phosphatase 174 H Troponin I High Sens Total Protein 6.4 L Albumin 2.8 L Cortisol Baseline Cortisol 30 Minute Cortisol 60 Minute ACTH Resp to [place] Cortisol Sreekanth Time 1 Cortisol Sreekanth Time 2 Cortisol Sreekanth Time 3 ACTH Comment 01/20/21 01/20/21 01/20/21 05:55 08:29 12:08 WBC RBC Hgb Hct MCV MCH MCHC RDW Plt Count MPV Immature Gran % (Auto) Neut % (Auto) Lymph % (Auto) [place] % (Auto) Eos % (Auto) Baso % (Auto) Lymph # (Auto) [place] # (Auto) Eos # (Auto) Baso # (Auto) Abs Immat Gran (auto) Absolute Neuts (auto) Absolute Nucleated RBC Nucleated RBC % (auto) Smear Tech's Comments PT INR D-Dimer O2 Saturation ABG pH at Pt Temp ABG pH (Temp Correct) ABG pCO2 at Pt Temp ABG pCO2 (Temp Corrct ABG pO2 at Pt Temp ABG pO2 (Temp Correct ABG HCO3 ABG Base Excess (Actual) Sodium Potassium Chloride Carbon Dioxide Anion Gap BUN Creatinine Estim Creat Clear Calc Estimated GFR POC Glucose 111 127 H Random Glucose Fasting Glucose Estimat Average Glucose 117 Hemoglobin A1c % 5.7 Calcium Phosphorus Magnesium Total Bilirubin AST ALT Alkaline Phosphatase Troponin I High Sens Total Protein Albumin Cortisol Baseline Cortisol 30 Minute Cortisol 60 Minute ACTH Resp to [place] Cortisol Sreekanth Time 1 Cortisol Sreekanth Time 2 Cortisol Sreekanth Time 3 ACTH Comment 01/20/21 01/20/21 01/20/21 12:32 16:53 21:21 WBC RBC Hgb Hct MCV MCH MCHC RDW Plt Count MPV Immature Gran % (Auto) Neut % (Auto) Lymph % (Auto) [place] % (Auto) Eos % (Auto) Baso % (Auto) Lymph # (Auto) [place] # (Auto) Eos # (Auto) Baso # (Auto) Abs Immat Gran (auto) Absolute Neuts (auto) Absolute Nucleated RBC Nucleated RBC % (auto) Smear Tech's Comments PT INR D-Dimer O2 Saturation ABG pH at Pt Temp ABG pH (Temp Correct) ABG pCO2 at Pt Temp ABG pCO2 (Temp Corrct ABG pO2 at Pt Temp ABG pO2 (Temp Correct ABG HCO3 ABG Base Excess (Actual) Sodium Potassium Chloride Carbon Dioxide Anion Gap BUN Creatinine Estim Creat Clear Calc Estimated GFR POC Glucose 140 H 89 Random Glucose Fasting Glucose Estimat Average Glucose Hemoglobin A1c % Calcium Phosphorus Magnesium Total Bilirubin AST ALT Alkaline Phosphatase Troponin I High Sens Total Protein Albumin Cortisol Baseline 10.3 Cortisol 30 Minute 16.3 L Cortisol 60 Minute 19.8 L ACTH Resp to [place] 1132 Cortisol Sreekanth Time 1 0829 Cortisol Sreekanth Time 2 1206 Cortisol Sreekanth Time 3 1232 ACTH Comment See Below 01/21/21 01/21/21 01/21/21 05:43 11:36 18:05 WBC RBC Hgb Hct MCV MCH MCHC RDW Plt Count MPV Immature Gran % (Auto) Neut % (Auto) Lymph % (Auto) [place] % (Auto) Eos % (Auto) Baso % (Auto) Lymph # (Auto) [place] # (Auto) Eos # (Auto) Baso # (Auto) Abs Immat Gran (auto) Absolute Neuts (auto) Absolute Nucleated RBC Nucleated RBC % (auto) Smear Tech's Comments PT INR D-Dimer O2 Saturation ABG pH at Pt Temp ABG pH (Temp Correct) ABG pCO2 at Pt Temp ABG pCO2 (Temp Corrct ABG pO2 at Pt Temp ABG pO2 (Temp Correct ABG HCO3 ABG Base Excess (Actual) Sodium Potassium Chloride Carbon Dioxide Anion Gap BUN Creatinine Estim Creat Clear Calc Estimated GFR POC Glucose 130 H 130 H 118 H Random Glucose Fasting Glucose Estimat Average Glucose Hemoglobin A1c % Calcium Phosphorus Magnesium Total Bilirubin AST ALT Alkaline Phosphatase Troponin I High Sens Total Protein Albumin Cortisol Baseline Cortisol 30 Minute Cortisol 60 Minute ACTH Resp to [place] Cortisol Sreekanth Time 1 Cortisol Sreekanth Time 2 Cortisol Sreekanth Time 3 ACTH Comment 01/21/21 01/22/21 01/22/21 20:09 05:36 12:41 WBC RBC Hgb Hct MCV MCH MCHC RDW Plt Count MPV Immature Gran % (Auto) Neut % (Auto) Lymph % (Auto) [place] % (Auto) Eos % (Auto) Baso % (Auto) Lymph # (Auto) [place] # (Auto) Eos # (Auto) Baso # (Auto) Abs Immat Gran (auto) Absolute Neuts (auto) Absolute Nucleated RBC Nucleated RBC % (auto) Smear Tech's Comments PT INR D-Dimer O2 Saturation ABG pH at Pt Temp ABG pH (Temp Correct) ABG pCO2 at Pt Temp ABG pCO2 (Temp Corrct ABG pO2 at Pt Temp ABG pO2 (Temp Correct ABG HCO3 ABG Base Excess (Actual) Sodium Potassium Chloride Carbon Dioxide Anion Gap BUN Creatinine Estim Creat Clear Calc Estimated GFR POC Glucose 100 119 H 152 H Random Glucose Fasting Glucose Estimat Average Glucose Hemoglobin A1c % Calcium Phosphorus Magnesium Total Bilirubin AST ALT Alkaline Phosphatase Troponin I High Sens Total Protein Albumin Cortisol Baseline Cortisol 30 Minute Cortisol 60 Minute ACTH Resp to [place] Cortisol Sreekanth Time 1 Cortisol Sreekanth Time 2 Cortisol Sreekanth Time 3 ACTH Comment 01/22/21 01/22/21 01/23/21 16:50 20:10 05:13 WBC RBC Hgb Hct MCV MCH MCHC RDW Plt Count MPV Immature Gran % (Auto) Neut % (Auto) Lymph % (Auto) [place] % (Auto) Eos % (Auto) Baso % (Auto) Lymph # (Auto) [place] # (Auto) Eos # (Auto) Baso # (Auto) Abs Immat Gran (auto) Absolute Neuts (auto) Absolute Nucleated RBC Nucleated RBC % (auto) Smear Tech's Comments PT INR D-Dimer O2 Saturation ABG pH at Pt Temp ABG pH (Temp Correct) ABG pCO2 at Pt Temp ABG pCO2 (Temp Corrct ABG pO2 at Pt Temp ABG pO2 (Temp Correct ABG HCO3 ABG Base Excess (Actual) Sodium Potassium Chloride Carbon Dioxide Anion Gap BUN Creatinine Estim Creat Clear Calc Estimated GFR POC Glucose 126 H 113 121 H Random Glucose Fasting Glucose Estimat Average Glucose Hemoglobin A1c % Calcium Phosphorus Magnesium Total Bilirubin AST ALT Alkaline Phosphatase Troponin I High Sens Total Protein Albumin Cortisol Baseline Cortisol 30 Minute Cortisol 60 Minute ACTH Resp to [place] Cortisol Sreekanth Time 1 Cortisol Sreekanth Time 2 Cortisol Sreekanth Time 3 ACTH Comment 01/23/21 01/23/21 01/23/21 07:49 12:01 16:52 WBC RBC Hgb Hct MCV MCH MCHC RDW Plt Count MPV Immature Gran % (Auto) Neut % (Auto) Lymph % (Auto) [place] % (Auto) Eos % (Auto) Baso % (Auto) Lymph # (Auto) [place] # (Auto) Eos # (Auto) Baso # (Auto) Abs Immat Gran (auto) Absolute Neuts (auto) Absolute Nucleated RBC Nucleated RBC % (auto) Smear Tech's Comments PT INR D-Dimer O2 Saturation ABG pH at Pt Temp ABG pH (Temp Correct) ABG pCO2 at Pt Temp ABG pCO2 (Temp Corrct ABG pO2 at Pt Temp ABG pO2 (Temp Correct ABG HCO3 ABG Base Excess (Actual) Sodium 133 L Potassium 4.6 Chloride 96 Carbon Dioxide 31 H Anion Gap 11 L BUN 20 H Creatinine 0.83 Estim Creat Clear Calc 51.9 Estimated GFR > 60 POC Glucose 122 H 137 H Random Glucose Fasting Glucose 125 H D Estimat Average Glucose Hemoglobin A1c % Calcium 8.7 Phosphorus Magnesium Total Bilirubin 0.2 AST 27 ALT 45 H Alkaline Phosphatase 154 H Troponin I High Sens Total Protein 6.1 L Albumin 2.8 L Cortisol Baseline Cortisol 30 Minute Cortisol 60 Minute ACTH Resp to [place] Cortisol Sreekanth Time 1 Cortisol Sreekanth Time 2 Cortisol Sreekanth Time 3 ACTH Comment 01/23/21 01/24/21 01/24/21 21:10 05:26 16:40 WBC RBC Hgb Hct MCV MCH MCHC RDW Plt Count MPV Immature Gran % (Auto) Neut % (Auto) Lymph % (Auto) [place] % (Auto) Eos % (Auto) Baso % (Auto) Lymph # (Auto) [place] # (Auto) Eos # (Auto) Baso # (Auto) Abs Immat Gran (auto) Absolute Neuts (auto) Absolute Nucleated RBC Nucleated RBC % (auto) Smear Tech's Comments PT INR D-Dimer O2 Saturation ABG pH at Pt Temp ABG pH (Temp Correct) ABG pCO2 at Pt Temp ABG pCO2 (Temp Corrct ABG pO2 at Pt Temp ABG pO2 (Temp Correct ABG HCO3 ABG Base Excess (Actual) Sodium Potassium Chloride Carbon Dioxide Anion Gap BUN Creatinine Estim Creat Clear Calc Estimated GFR POC Glucose 114 117 H 107 Random Glucose Fasting Glucose Estimat Average Glucose Hemoglobin A1c % Calcium Phosphorus Magnesium Total Bilirubin AST ALT Alkaline Phosphatase Troponin I High Sens Total Protein Albumin Cortisol Baseline Cortisol 30 Minute Cortisol 60 Minute ACTH Resp to [place] Cortisol Sreekanth Time 1 Cortisol Sreekanth Time 2 Cortisol Sreekanth Time 3 ACTH Comment 01/25/21 01/25/21 01/25/21 05:25 12:11 16:47 WBC RBC Hgb Hct MCV MCH MCHC RDW Plt Count MPV Immature Gran % (Auto) Neut % (Auto) Lymph % (Auto) [place] % (Auto) Eos % (Auto) Baso % (Auto) Lymph # (Auto) [place] # (Auto) Eos # (Auto) Baso # (Auto) Abs Immat Gran (auto) Absolute Neuts (auto) Absolute Nucleated RBC Nucleated RBC % (auto) Smear Tech's Comments PT INR D-Dimer O2 Saturation ABG pH at Pt Temp ABG pH (Temp Correct) ABG pCO2 at Pt Temp ABG pCO2 (Temp Corrct ABG pO2 at Pt Temp ABG pO2 (Temp Correct ABG HCO3 ABG Base Excess (Actual) Sodium Potassium Chloride Carbon Dioxide Anion Gap BUN Creatinine Estim Creat Clear Calc Estimated GFR POC Glucose 90 155 H 145 H Random Glucose Fasting Glucose Estimat Average Glucose Hemoglobin A1c % Calcium Phosphorus Magnesium Total Bilirubin AST ALT Alkaline Phosphatase Troponin I High Sens Total Protein Albumin Cortisol Baseline Cortisol 30 Minute Cortisol 60 Minute ACTH Resp to [place] Cortisol Sreekanth Time 1 Cortisol Sreekanth Time 2 Cortisol Sreekanth Time 3 ACTH Comment 01/25/21 01/26/21 01/26/21 19:59 05:53 16:28 WBC RBC Hgb Hct MCV MCH MCHC RDW Plt Count MPV Immature Gran % (Auto) Neut % (Auto) Lymph % (Auto) [place] % (Auto) Eos % (Auto) Baso % (Auto) Lymph # (Auto) [place] # (Auto) Eos # (Auto) Baso # (Auto) Abs Immat Gran (auto) Absolute Neuts (auto) Absolute Nucleated RBC Nucleated RBC % (auto) Smear Tech's Comments PT INR D-Dimer O2 Saturation ABG pH at Pt Temp ABG pH (Temp Correct) ABG pCO2 at Pt Temp ABG pCO2 (Temp Corrct ABG pO2 at Pt Temp ABG pO2 (Temp Correct ABG HCO3 ABG Base Excess (Actual) Sodium Potassium Chloride Carbon Dioxide Anion Gap BUN Creatinine Estim Creat Clear Calc Estimated GFR POC Glucose 84 124 H 123 H Random Glucose Fasting Glucose Estimat Average Glucose Hemoglobin A1c % Calcium Phosphorus Magnesium Total Bilirubin AST ALT Alkaline Phosphatase Troponin I High Sens Total Protein Albumin Cortisol Baseline Cortisol 30 Minute Cortisol 60 Minute ACTH Resp to [place] Cortisol Sreekanth Time 1 Cortisol Sreekanth Time 2 Cortisol Sreekanth Time 3 ACTH Comment 01/27/21 01/27/21 01/27/21 05:28 16:38 21:43 WBC RBC Hgb Hct MCV MCH MCHC RDW Plt Count MPV Immature Gran % (Auto) Neut % (Auto) Lymph % (Auto) [place] % (Auto) Eos % (Auto) Baso % (Auto) Lymph # (Auto) [place] # (Auto) Eos # (Auto) Baso # (Auto) Abs Immat Gran (auto) Absolute Neuts (auto) Absolute Nucleated RBC Nucleated RBC % (auto) Smear Tech's Comments PT INR D-Dimer O2 Saturation ABG pH at Pt Temp ABG pH (Temp Correct) ABG pCO2 at Pt Temp ABG pCO2 (Temp Corrct ABG pO2 at Pt Temp ABG pO2 (Temp Correct ABG HCO3 ABG Base Excess (Actual) Sodium Potassium Chloride Carbon Dioxide Anion Gap BUN Creatinine Estim Creat Clear Calc Estimated GFR POC Glucose 93 127 H 103 Random Glucose Fasting Glucose Estimat Average Glucose Hemoglobin A1c % Calcium Phosphorus Magnesium Total Bilirubin AST ALT Alkaline Phosphatase Troponin I High Sens Total Protein Albumin Cortisol Baseline Cortisol 30 Minute Cortisol 60 Minute ACTH Resp to [place] Cortisol Sreekanth Time 1 Cortisol Sreekanth Time 2 Cortisol Sreekanth Time 3 ACTH Comment 01/28/21 01/28/21 01/28/21 05:56 08:19 16:13 WBC RBC Hgb Hct MCV MCH MCHC RDW Plt Count MPV Immature Gran % (Auto) Neut % (Auto) Lymph % (Auto) [place] % (Auto) Eos % (Auto) Baso % (Auto) Lymph # (Auto) [place] # (Auto) Eos # (Auto) Baso # (Auto) Abs Immat Gran (auto) Absolute Neuts (auto) Absolute Nucleated RBC Nucleated RBC % (auto) Smear Tech's Comments PT INR D-Dimer O2 Saturation ABG pH at Pt Temp ABG pH (Temp Correct) ABG pCO2 at Pt Temp ABG pCO2 (Temp Corrct ABG pO2 at Pt Temp ABG pO2 (Temp Correct ABG HCO3 ABG Base Excess (Actual) Sodium 136 Potassium 4.7 Chloride 99 Carbon Dioxide 33 H Anion Gap 9 L BUN 22 H Creatinine 0.86 Estim Creat Clear Calc 50.1 Estimated GFR > 60 POC Glucose 117 H 142 H Random Glucose Fasting Glucose 128 H Estimat Average Glucose Hemoglobin A1c % Calcium 8.6 Phosphorus Magnesium Total Bilirubin 0.4 AST 26 ALT 38 Alkaline Phosphatase 137 H Troponin I High Sens Total Protein 5.9 L Albumin 2.7 L Cortisol Baseline Cortisol 30 Minute Cortisol 60 Minute ACTH Resp to [place] Cortisol Sreekanth Time 1 Cortisol Sreekanth Time 2 Cortisol Sreekanth Time 3 ACTH Comment 01/28/21 01/29/21 19:51 06:42 WBC RBC Hgb Hct MCV MCH MCHC RDW Plt Count MPV Immature Gran % (Auto) Neut % (Auto) Lymph % (Auto) [place] % (Auto) Eos % (Auto) Baso % (Auto) Lymph # (Auto) [place] # (Auto) Eos # (Auto) Baso # (Auto) Abs Immat Gran (auto) Absolute Neuts (auto) Absolute Nucleated RBC Nucleated RBC % (auto) Smear Tech's Comments PT INR D-Dimer O2 Saturation ABG pH at Pt Temp ABG pH (Temp Correct) ABG pCO2 at Pt Temp ABG pCO2 (Temp Corrct ABG pO2 at Pt Temp ABG pO2 (Temp Correct ABG HCO3 ABG Base Excess (Actual) Sodium Potassium Chloride Carbon Dioxide Anion Gap BUN Creatinine Estim Creat Clear Calc Estimated GFR POC Glucose 152 H 87 Random Glucose Fasting Glucose Estimat Average Glucose Hemoglobin A1c % Calcium Phosphorus Magnesium Total Bilirubin AST ALT Alkaline Phosphatase Troponin I High Sens Total Protein Albumin Cortisol Baseline Cortisol 30 Minute Cortisol 60 Minute ACTH Resp to Cosyntrop Cortisol Sreekanth Time 1 Cortisol Sreekanth Time 2 Cortisol Sreekanth Time 3 ACTH Comment Airway Mallampati Class: II TM Dist: >3cm Neck ROM: Full Assessment and Plan Assessment Anesthesia Assessment: Anesthesia Plan Discussed and Chart Reviewed Final Anesthetic Review NPO: Yes ASA Class: III Final Preanesthetic Review: No Changes in Pt Med Stat, Meds/Allgs Chart Reviewed, Consent Obtained/Reviewed and Anes Risks/Benef Reviewed Patient Risk: Intermediate Procedure Risk: Low Assessment/Block/Sedation in SS: Assess/Block/Sedation-SS Anesthetic Plan Anesthetic Plan: GA Disposition: Standard PACU
--- NOTE | 2021-01-29 10:45 | MHC.SHP ---
Pre-Procedural Eval Section A The patient is an INPATIENT: Yes Changes since office visit: Yes Patient answered all questions; No Cold of Flu in the past 2 weeks, No New Medical Problems and No Changes in Medication The History & Physical has been completed within 30 days and I have reviewed it.: Yes Section B Chief Complaint: severe depression Allergies: Allergies Allergy/AdvReac Type Severity Reaction Status Date / Time Sulfa (Sulfonamide Allergy Unknown UNKNOWN Verified 12/01/20 09:47 Antibiotics) [SULFA (SULFONAMIDE ANTIBIOTICS)] zoster vaccine live Allergy Hives Verified 12/01/20 09:47 Plan I have reviewed the history and physical and performed a pertinent physical examination on my patient. No changes have occurred unless specified.
--- NOTE | 2021-01-29 10:46 | HO.ECTPROC ---
ECT Procedure Note Diagnosis/Treatment Date of Service: 01/29/21 Diagnosis: Bipolar disorder Current Treatment Number: 6 Treatment: Series Interval Clinical Notes: pt with some improvement tolerating ect ECT Settings Device: THYMATRON DGx Electrode Placement: Right Unilateral Program/Pulse Width: 0.25 Energy Percent: 100 Seizure Duration By EEG (in seconds): 42 Medications Administration General Anesthetic: Etomidate (12) Muscle Relaxant: Rocuronium (20 mg) Ancillary Medications Miscillaneous Medications: Propofol (20), Midazolam and Other (lorazepam 0.5 mg ) Airway Management Airway Management: Bag Mask Ventilation Treatment Recommendations No Changes Recommended: No change Notes: monitor response to tx Pt Tolerated Procedure w/o Issue: Yes
[2021-01-29] MEDS: LORazepam 2 MG/ML VIAL 0.5 MG IVPUSH (11:08)
[2021-01-29] MEDS: Lactated Ringers 1,000 ML 20 ML IVCONT (11:56)
[2021-01-29] MEDS: FLUoxetine HCl Oral Solution 20 MG/5 ML SOLUTION 5 MG PO (12:54)
[2021-01-29] MEDS: Amphetamine Mixed Salts 10 MG TABLET 2.5 MG G-TUBE (12:54)
[2021-01-29] MEDS: Nystatin Oral Susp 500,000 UNIT/5 ML ORAL.SUSP 400000 UNIT PO ×3 (12:54→20:43)
[2021-01-29] MEDS: Famotidine 20 MG TABLET G-TUBE (12:55)
[2021-01-29] MEDS: Thiamine HCL 100 MG TABLET G-TUBE (12:55)
[2021-01-29] MEDS: Hydrocortisone 10 MG TABLET PO (12:55)
[2021-01-29] MEDS: Clotrimazole 1 % Cream 15 GM TUBE 1 APPL TOPICAL ×2 (12:56→20:40)
[2021-01-29] MEDS: Budesonide 180 MCG AER.POW.BA 2 PUFF INHALE ×2 (12:56→21:01)
[2021-01-29] MEDS: LORazepam 0.5 MG TABLET PO ×2 (13:05→20:48)
[2021-01-29 14:00] LABS: Glucose, Whole Blood 102 mg/dL (60-115)
--- NOTE | 2021-01-29 14:18 | MHC.CLN ---
F/U REVIEWED LABS NOTE SERUM NA WNL WT 109#, DOWN 3# SINCE LAST KNOWN WT PT CONTINUES WITH WT LOSS DESPITE MAXIMUM NUTRITION SUPPORT IN PLACE PT MUST BE NPO R/T ECT TREATMENTS AND MAY BE AFFECTING KCAL INTAKE PT CURRENTLY RECEIVING OSMOLITE 1.5 AT MAX GOAL RATE 50CC/HR CONTINUOUS TO PROVIDE 1800KCALS (35KCALS/KG), 75G PROTEIN (1.5G/KG), 914CC FREE WATER FROM FORMULA. TF MEETS 100% RDI FLUID RESTRICTION 1L PER DAY 01/22/21 PER NEPHROLOGY CONTINUE TO MONITOR TOELRANCE, RESIDUALS AND LYTES CONSIDER CHANGING FEEDING TO BOLUS OR NOCTURNAL FEEDING FOR MAXIMUM NUTRITION SUPPORT WITH ECT IF BOLUS NEEDED; RECOMMEND OSMOLITE 240ML X5 PER DAY OR NOCTURNAL FEEDING OSMOLITE AT MAX GOAL 100CC/HR X 12 HRS CONT. NUTRITION PROVIDED IS SAME ABOVE AND MEETS PTS NEEDS FOLLOWING
[2021-01-29 20:30] LABS: Glucose, Whole Blood 148 mg/dL (60-115)
[2021-01-29] MEDS: Hydrocortisone 10 MG TABLET 2.5 MG PO ×2 (20:40→20:44)
[2021-01-29] MEDS: Mirtazapine 7.5 MG TABLET G-TUBE (20:44)
--- NOTE | 2021-01-29 22:33 | P.PNPSI_ITS ---
Subjective Subjective Date of Service: 01/29/21 Reason For Visit: severe depression Subjective Notes: Conditional Voluntary Guardianship: No Interim History: pt with some improvement Medication Compliance: Yes Mental Status Exam Mental Status Exam Patient Appearance: Appropriate Patient Orientation: Person, Place, Time and Situation Level of Consciousness: Awake Patient Behavior: Appropriate and Passive Mood Description: Depressed, Flat and Apprehensive Affect Description: Depressed and Anxious Ability to Follow Directions: Good Speech Pattern: Clear, Impoverished and Monotone Hallucinations: None Delusions: Not Present Thought Process: Slowed Thinking Thought Content: positive for Preoccupation, negative for Suicidal Ideation (passive ) and negative for Homicidal Ideation Depressive Symptoms: Increased Anxiety, Increased Irritability, Thoughts of /Suicide and Difficulty Concentrating Judgement: Fair Diagnostics Vital Signs (24Hr): Vital Signs - 24 hr 01/29/21 06:33 01/29/21 06:40 01/29/21 08:41 Temperature 97.2 F 97.2 F 97.2 F Pulse Rate 75 75 72 Respiratory Rate 20 20 16 Blood Pressure 113/67 113/67 124/67 Pulse Oximetry 95 95 97 01/29/21 11:05 01/29/21 11:10 01/29/21 11:15 Temperature 97.2 F Pulse Rate 74 83 82 Respiratory Rate 24 H 20 20 Blood Pressure 207/106 H 140/80 H 132/83 Pulse Oximetry 96 95 95 01/29/21 11:20 01/29/21 11:35 Temperature 97.2 F Pulse Rate 85 80 Respiratory Rate 20 20 Blood Pressure 145/88 H 138/85 Pulse Oximetry 96 94 Body Mass Index 17.0 Labs Results: 01/15/21 14:51 01/28/21 08:19 Labs: Laboratory Results - last 48 hr 01/28/21 01/28/21 01/28/21 05:56 08:19 16:13 Sodium 136 Potassium 4.7 Chloride 99 Carbon Dioxide 33 H Anion Gap 9 L BUN 22 H Creatinine 0.86 Estim Creat Clear Calc 50.1 Estimated GFR > 60 POC Glucose 117 H 142 H Fasting Glucose 128 H Calcium 8.6 Total Bilirubin 0.4 AST 26 ALT 38 Alkaline Phosphatase 137 H Total Protein 5.9 L Albumin 2.7 L 01/28/21 01/29/21 01/29/21 19:51 06:42 13:57 Sodium Potassium Chloride Carbon Dioxide Anion Gap BUN Creatinine Estim Creat Clear Calc Estimated GFR POC Glucose 152 H 87 102 Fasting Glucose Calcium Total Bilirubin AST ALT Alkaline Phosphatase Total Protein Albumin 01/29/21 20:24 Sodium Potassium Chloride Carbon Dioxide Anion Gap BUN Creatinine Estim Creat Clear Calc Estimated GFR POC Glucose 148 H Fasting Glucose Calcium Total Bilirubin AST ALT Alkaline Phosphatase Total Protein Albumin Imaging Radiology Impressions: ITS Impressions Modified Barium Swallow 01/07/21 14:15 IMPRESSION: Laryngeal penetration and occasional aspiration as described above. Please refer to speech pathology report for details. Chest X-Ray 01/10/21 09:11 IMPRESSION: Severe chronic interstitial lung disease. No evidence of acute superimposed pneumonitis. Medications Medications Current Medications Generic Name Dose Route Start Last Admin Trade Name Freq PRN Reason Stop Dose Admin Acetaminophen 650 mg 01/09/21 15:51 01/16/21 17:00 Acetaminophen 325 Mg Tablet G-TUBE 650 mg Q4H PRN Administration Pain, Mild (Pain Scale 1-3) Al Hydroxide/Mg Hydroxide 30 ml 01/08/21 15:46 Magnesium Hydrox/Alum Hydrox 30 Ml Oral.Susp G-TUBE Q4H PRN Dyspepsia Amphetamine/Dextroamphetamine 2.5 mg 01/22/21 08:00 01/29/21 13:18 Amphetamine Mixed Salts 10 Mg Tablet G-TUBE Not Given BID@0800,1300 [facility] Budesonide 2 puff 12/31/20 20:00 01/29/21 21:01 Budesonide 180 Mcg Aer.Pow.Ba INHALE 2 puff RBID DOMINICK Administration Clotrimazole 1 appl 01/06/21 21:00 01/29/21 20:40 Clotrimazole 1 % Cream 15 Gm Tube TOPICAL 1 appl BID DOMINICK Administration Protocol Famotidine 20 mg 01/09/21 09:00 01/29/21 12:55 Famotidine 20 Mg Tablet G-TUBE 20 mg DAILY DOMINICK Administration Fluoxetine HCl 5 mg 01/27/21 09:00 01/29/21 12:54 Fluoxetine Hcl Oral Solution 20 Mg/5 Ml Solution PO 5 mg DAILY DOMINICK Administration Hydrocortisone 2.5 mg 01/23/21 19:00 01/29/21 20:44 Hydrocortisone 10 Mg Tablet PO 2.5 mg DAILY@1900 DOMINICK Administration Hydrocortisone 5 mg 01/23/21 13:00 01/29/21 13:18 Hydrocortisone 10 Mg Tablet PO Not Given DAILY@1300 [facility] Hydrocortisone 10 mg 01/28/21 08:00 01/29/21 12:55 Hydrocortisone 10 Mg Tablet PO 10 mg DAILY@0800 DOMINICK Administration Lactated Ringer's 1,000 mls @ 20 mls/hr 01/29/21 10:30 01/29/21 11:56 Lr IVCONT 20 mls/hr .Q24H DOMINICK Administration Lorazepam 0.5 mg 01/18/21 10:29 01/29/21 20:48 Lorazepam 0.5 Mg Tablet PO 0.5 mg Q4H PRN Administration anxiety/restlessness Mirtazapine 7.5 mg 01/14/21 21:00 01/29/21 20:44 Mirtazapine 7.5 Mg Tablet G-TUBE 7.5 mg BEDTIME DOMINICK Administration Patient Own 1 each 01/08/21 21:00 Medication ( G-TUBE Nintedanib 150) BID DOMINICK Nystatin 400,000 unit 01/15/21 17:00 01/29/21 20:43 Nystatin Oral Susp 500,000 Unit/5 Ml Oral.Susp PO 400,000 unit QID DOMINICK Administration Protocol Omeprazole 40 mg 01/08/21 16:30 01/29/21 17:16 Omeprazole 20 Mg/10 Ml Susp.Recon G-TUBE 40 mg BID@0630,1630 DOMINICK Administration Prochlorperazine Edisylate 5 mg 12/31/20 23:21 01/06/21 09:42 Prochlorperazine Edisylate 10 Mg/2 Ml Vial IM 5 mg Q6H PRN Administration Nausea and Vomiting Thiamine HCl 100 mg 01/09/21 09:00 01/29/21 12:55 Thiamine Hcl 100 Mg Tablet G-TUBE 100 mg DAILY DOMINICK Administration Allergies Allergies Allergy/AdvReac Type Severity Reaction Status Date / Time Sulfa (Sulfonamide Allergy Unknown UNKNOWN Verified 12/01/20 09:47 Antibiotics) [SULFA (SULFONAMIDE ANTIBIOTICS)] zoster vaccine live Allergy Hives Verified 12/01/20 09:47 Assessment & Plan Assessment & Plan (1) Dysphagia: Qualifiers: Dysphagia type: unspecified Qualified Code(s): R13.10 - Dysphagia, unspecified Status: Acute Code(s): R13.10 - Dysphagia, unspecified (2) Pulmonary fibrosis: Status: Acute Code(s): J84.10 - Pulmonary fibrosis, unspecified (3) Chronic respiratory failure: Qualifiers: Respiratory failure complication: hypoxia Qualified Code(s): J96.11 - Chronic respiratory failure with hypoxia Status: Acute Code(s): J96.10 - Chronic respiratory failure, unspecified whether with hypoxia or hypercapnia (4) Bipolar I disorder with depression, severe: Status: Acute Code(s): F31.4 - Bipolar disorder, current episode depressed, severe, without psychotic features (5) Severe protein-calorie malnutrition: Status: Acute Code(s): E43 - Unspecified severe protein-calorie malnutrition Assessment and Plan: Continue per treatment team: IMPRESSION:bipolar depression cont ECT PROZAC ADDERALL monitor for adverse effects Protein calorie malnutrition Continue PEG labs ordered spoke with dietary check electrolytes Pulmonary fibrosis aspiration continue NPO cont hydrocortizone Greater than 50% of the session was spent on counseling and/or coordination of care Reason for contiued inpatient stay Substantial Risk for: inability to function, rapid decompensation and med/psych decompensation
[2021-01-30 06:00] VITALS: BP 98/65; PULSE 80; RESP 20; TEMP 36.4; O2SAT 95
[2021-01-30 06:49] LABS: Glucose, Whole Blood 126 mg/dL (60-115)
--- NOTE | 2021-01-30 07:40 | HO.PSYCHPN ---
Subjective Subjective Date of Service: 01/30/21 Reason For Visit: severe depression Interim History: pt presents with fatigue, sleepiness. Has dry cough. some improvement in mood Review of Systems Review of Systems As reported in HPI Constitutional: Reports fatigue, Reports lethargy, Reports malaise, Denies night sweats and Reports weight loss Denies change in voice, Reports dysphagia, Denies lip swelling, Denies mouth pain, Reports nasal congestion, Reports nasal discharge and Denies tongue swelling Cardiovascular: Reports no additional cardiovascular complaints, Denies chest pain, Denies dyspnea and Denies orthopnea Respiratory: Denies cough (dry cough), Denies dyspnea and Denies wheezing Gastrointestinal: Reports no additional gastrointestinal complaints, Denies abdominal pain and Reports dysphagia Musculoskeletal: Denies no additional musculoskeletal complaints Denies Neuro-related abnormal movements Psychiatric: Denies no additional psychiatric complaints Endocrine: Reports fatigue Hematologic/Lymphatic: Denies easy bleeding and Denies lymphadenopathy Allergic/Immunologic: Denies lip swelling, Denies tongue swelling and Denies wheezing Mental Status Exam Mental Status Exam Narrative: Orientation: Person, Place, Time and Situation Level of Consciousness:sleepiness Patient Behavior: Cooperative Mood Description: ok Patient Appearance: Appropriate Patient Orientation: Person, Place, Time and Situation Level of Consciousness: Awake Patient Behavior: Appropriate and Passive Mood Description: Depressed, Flat and Apprehensive Affect Description: Depressed and Anxious Patient Cognition Impaired: No Ability to Follow Directions: Good Speech Pattern: Clear, Impoverished and Monotone Memory Description: Intact Diagnostics Vital Signs (24Hr): Vital Signs - 24 hr 01/29/21 08:41 01/29/21 11:05 01/29/21 11:10 Temperature 97.2 F 97.2 F Pulse Rate 72 74 83 Respiratory Rate 16 24 H 20 Blood Pressure 124/67 207/106 H 140/80 H Pulse Oximetry 97 96 95 01/29/21 11:15 01/29/21 11:20 01/29/21 11:35 Temperature 97.2 F Pulse Rate 82 85 80 Respiratory Rate 20 20 20 Blood Pressure 132/83 145/88 H 138/85 Pulse Oximetry 95 96 94 01/30/21 06:00 Temperature 97.5 F Pulse Rate 80 Respiratory Rate 20 Blood Pressure 98/65 Pulse Oximetry 95 Body Mass Index 17.0 Labs Results: 01/15/21 14:51 01/28/21 08:19 Labs: Laboratory Results - last 48 hr 01/28/21 01/28/21 01/28/21 08:19 16:13 19:51 Sodium 136 Potassium 4.7 Chloride 99 Carbon Dioxide 33 H Anion Gap 9 L BUN 22 H Creatinine 0.86 Estim Creat Clear Calc 50.1 Estimated GFR > 60 POC Glucose 142 H 152 H Fasting Glucose 128 H Calcium 8.6 Total Bilirubin 0.4 AST 26 ALT 38 Alkaline Phosphatase 137 H Total Protein 5.9 L Albumin 2.7 L 01/29/21 01/29/21 01/29/21 06:42 13:57 20:24 Sodium Potassium Chloride Carbon Dioxide Anion Gap BUN Creatinine Estim Creat Clear Calc Estimated GFR POC Glucose 87 102 148 H Fasting Glucose Calcium Total Bilirubin AST ALT Alkaline Phosphatase Total Protein Albumin 01/30/21 06:45 Sodium Potassium Chloride Carbon Dioxide Anion Gap BUN Creatinine Estim Creat Clear Calc Estimated GFR POC Glucose 126 H Fasting Glucose Calcium Total Bilirubin AST ALT Alkaline Phosphatase Total Protein Albumin Imaging Radiology Impressions: ITS Impressions Modified Barium Swallow 01/07/21 14:15 IMPRESSION: Laryngeal penetration and occasional aspiration as described above. Please refer to speech pathology report for details. Chest X-Ray 01/10/21 09:11 IMPRESSION: Severe chronic interstitial lung disease. No evidence of acute superimposed pneumonitis. Medications Medications Current Medications Generic Name Dose Route Start Last Admin Trade Name Freq PRN Reason Stop Dose Admin Acetaminophen 650 mg 01/09/21 15:51 01/16/21 17:00 Acetaminophen 325 Mg Tablet G-TUBE 650 mg Q4H PRN Administration Pain, Mild (Pain Scale 1-3) Al Hydroxide/Mg Hydroxide 30 ml 01/08/21 15:46 Magnesium Hydrox/Alum Hydrox 30 Ml Oral.Susp G-TUBE Q4H PRN Dyspepsia Amphetamine/Dextroamphetamine 2.5 mg 01/22/21 08:00 01/29/21 13:18 Amphetamine Mixed Salts 10 Mg Tablet G-TUBE Not Given BID@0800,1300 [facility] Budesonide 2 puff 12/31/20 20:00 01/29/21 21:01 Budesonide 180 Mcg Aer.Pow.Ba INHALE 2 puff RBID DOMINICK Administration Clotrimazole 1 appl 01/06/21 21:00 01/29/21 20:40 Clotrimazole 1 % Cream 15 Gm Tube TOPICAL 1 appl BID DOMINICK Administration Protocol Famotidine 20 mg 01/09/21 09:00 01/29/21 12:55 Famotidine 20 Mg Tablet G-TUBE 20 mg DAILY DOMINICK Administration Fluoxetine HCl 5 mg 01/27/21 09:00 01/29/21 12:54 Fluoxetine Hcl Oral Solution 20 Mg/5 Ml Solution PO 5 mg DAILY DOMINICK Administration Hydrocortisone 2.5 mg 01/23/21 19:00 01/29/21 20:44 Hydrocortisone 10 Mg Tablet PO 2.5 mg DAILY@1900 DOMINICK Administration Hydrocortisone 5 mg 01/23/21 13:00 01/29/21 13:18 Hydrocortisone 10 Mg Tablet PO Not Given DAILY@1300 DOMINICK Hydrocortisone 10 mg 01/28/21 08:00 01/29/21 12:55 Hydrocortisone 10 Mg Tablet PO 10 mg DAILY@0800 DOMINICK Administration Lactated Ringer's 1,000 mls @ 20 mls/hr 01/29/21 10:30 01/29/21 11:56 Lr IVCONT 20 mls/hr .Q24H DOMINICK Administration Lorazepam 0.5 mg 01/18/21 10:29 01/29/21 20:48 Lorazepam 0.5 Mg Tablet PO 0.5 mg Q4H PRN Administration anxiety/restlessness Mirtazapine 7.5 mg 01/14/21 21:00 01/29/21 20:44 Mirtazapine 7.5 Mg Tablet G-TUBE 7.5 mg BEDTIME DOMINICK Administration Patient Own 1 each 01/08/21 21:00 Medication ( G-TUBE Nintedanib 150) BID [facility] Nystatin 400,000 unit 01/15/21 17:00 01/29/21 20:43 Nystatin Oral Susp 500,000 Unit/5 Ml Oral.Susp PO 400,000 unit QID DOMINICK Administration Protocol Omeprazole 40 mg 01/08/21 16:30 01/30/21 06:10 Omeprazole 20 Mg/10 Ml Susp.Recon G-TUBE 40 mg BID@0630,1630 DOMINICK Administration Prochlorperazine Edisylate 5 mg 12/31/20 23:21 01/06/21 09:42 Prochlorperazine Edisylate 10 Mg/2 Ml Vial IM 5 mg Q6H PRN Administration Nausea and Vomiting Thiamine HCl 100 mg 01/09/21 09:00 01/29/21 12:55 Thiamine Hcl 100 Mg Tablet G-TUBE 100 mg DAILY DOMINICK Administration Allergies Allergies Allergy/AdvReac Type Severity Reaction Status Date / Time Sulfa (Sulfonamide Allergy Unknown UNKNOWN Verified 12/01/20 09:47 Antibiotics) [SULFA (SULFONAMIDE ANTIBIOTICS)] zoster vaccine live Allergy Hives Verified 12/01/20 09:47 Assessment & Plan Assessment & Plan (1) Dysphagia: Qualifiers: Dysphagia type: unspecified Qualified Code(s): R13.10 - Dysphagia, unspecified Status: Acute Code(s): R13.10 - Dysphagia, unspecified (2) Pulmonary fibrosis: Status: Acute Code(s): J84.10 - Pulmonary fibrosis, unspecified (3) Chronic respiratory failure: Qualifiers: Respiratory failure complication: hypoxia Qualified Code(s): J96.11 - Chronic respiratory failure with hypoxia Status: Acute Code(s): J96.10 - Chronic respiratory failure, unspecified whether with hypoxia or hypercapnia (4) Bipolar I disorder with depression, severe: Status: Acute Code(s): F31.4 - Bipolar disorder, current episode depressed, severe, without psychotic features (5) Severe protein-calorie malnutrition: Status: Acute Code(s): E43 - Unspecified severe protein-calorie malnutrition Assessment and Plan: Continue per treatment team: IMPRESSION:bipolar depression cont ECT,PROZAC, ADDERALL and monitor for adverse effects Protein calorie malnutrition Continue PEG labs ordered spoke with dietary check electrolytes Pulmonary fibrosis aspiration continue NPO cont hydrocortizone Greater than 50% of the session was spent on counseling and/or coordination of care Reason for contiued inpatient stay Substantial Risk for: inability to function and med/psych decompensation
[2021-01-30] MEDS: Amphetamine Mixed Salts 10 MG TABLET 2.5 MG G-TUBE ×2 (08:19→12:48)
[2021-01-30] MEDS: FLUoxetine HCl Oral Solution 20 MG/5 ML SOLUTION 5 MG PO (08:19)
[2021-01-30] MEDS: Nystatin Oral Susp 500,000 UNIT/5 ML ORAL.SUSP 400000 UNIT PO ×4 (08:19→20:47)
[2021-01-30] MEDS: Famotidine 20 MG TABLET G-TUBE (08:20)
[2021-01-30] MEDS: Budesonide 180 MCG AER.POW.BA 2 PUFF INHALE ×2 (08:20→20:49)
[2021-01-30] MEDS: Clotrimazole 1 % Cream 15 GM TUBE 1 APPL TOPICAL ×2 (08:20→20:49)
[2021-01-30] MEDS: LORazepam 0.5 MG TABLET PO ×3 (08:20→18:27)
[2021-01-30] MEDS: Hydrocortisone 10 MG TABLET PO (08:20)
[2021-01-30] MEDS: Thiamine HCL 100 MG TABLET G-TUBE (08:21)
[2021-01-30 12:06] LABS: Glucose, Whole Blood 120 mg/dL (60-115)
[2021-01-30] MEDS: Hydrocortisone 10 MG TABLET 5 MG PO (12:48)
[2021-01-30 14:02] VITALS: BP 100/62; PULSE 85; RESP 18
[2021-01-30 17:04] LABS: Glucose, Whole Blood 113 mg/dL (60-115)
[2021-01-30 18:00] VITALS: BP 111/70; PULSE 86; RESP 20; TEMP 36.8; O2SAT 96
[2021-01-30] MEDS: Hydrocortisone 10 MG TABLET 2.5 MG PO (18:26)
[2021-01-30] MEDS: Mirtazapine 7.5 MG TABLET G-TUBE (20:48)
[2021-01-30 21:05] LABS: Glucose, Whole Blood 117 mg/dL (60-115)
[2021-01-31 06:00] VITALS: BP 143/79; PULSE 80; RESP 20; TEMP 35.7; O2SAT 97
[2021-01-31 06:24] LABS: Glucose, Whole Blood 123 mg/dL (60-115)
[2021-01-31] MEDS: Thiamine HCL 100 MG TABLET G-TUBE (08:32)
[2021-01-31] MEDS: Nystatin Oral Susp 500,000 UNIT/5 ML ORAL.SUSP 400000 UNIT PO ×4 (08:32→20:45)
[2021-01-31] MEDS: FLUoxetine HCl Oral Solution 20 MG/5 ML SOLUTION 5 MG PO (08:32)
[2021-01-31] MEDS: LORazepam 0.5 MG TABLET PO ×3 (08:32→20:47)
[2021-01-31] MEDS: Hydrocortisone 10 MG TABLET PO (08:33)
[2021-01-31] MEDS: Famotidine 20 MG TABLET G-TUBE (08:33)
[2021-01-31] MEDS: Clotrimazole 1 % Cream 15 GM TUBE 1 APPL TOPICAL ×2 (08:33→20:50)
[2021-01-31] MEDS: Budesonide 180 MCG AER.POW.BA 2 PUFF INHALE ×2 (08:33→20:50)
[2021-01-31] MEDS: Amphetamine Mixed Salts 10 MG TABLET 2.5 MG G-TUBE ×2 (08:34→12:45)
[2021-01-31 12:12] LABS: Glucose, Whole Blood 129 mg/dL (60-115)
[2021-01-31] MEDS: Hydrocortisone 10 MG TABLET 5 MG PO (12:45)
--- NOTE | 2021-01-31 17:01 | HO.PSYCHPN ---
Subjective Subjective Date of Service: 01/31/21 Reason For Visit: severe depression Interim History: pt presents with fatigue, sleepiness. more motivated to get OOB and walk short distance; cough improved. some improvement in mood Review of Systems Review of Systems As reported in HPI Constitutional: Reports fatigue, Reports lethargy, Reports malaise, Denies night sweats and Reports weight loss Denies change in voice, Reports dysphagia, Denies lip swelling, Denies mouth pain, Reports nasal congestion, Reports nasal discharge and Denies tongue swelling Cardiovascular: Reports no additional cardiovascular complaints, Denies chest pain, Denies dyspnea, Denies dyspnea on exertion and Denies orthopnea Respiratory: Reports no additional respiratory complaints, Denies cough (dry cough), Denies hemoptysis, Denies dyspnea, Denies dyspnea on exertion and Denies wheezing Gastrointestinal: Reports no additional gastrointestinal complaints, Denies abdominal pain and Reports dysphagia Musculoskeletal: Denies no additional musculoskeletal complaints Denies Neuro-related abnormal movements Psychiatric: Denies no additional psychiatric complaints Endocrine: Reports fatigue Hematologic/Lymphatic: Denies easy bleeding and Denies lymphadenopathy Allergic/Immunologic: Denies lip swelling, Denies tongue swelling and Denies wheezing Mental Status Exam Mental Status Exam Patient Appearance: Appropriate Patient Orientation: Person, Place, Time and Situation Level of Consciousness: Awake Patient Behavior: Appropriate and Passive Mood Description: Depressed, Flat and Apprehensive Affect Description: Depressed and Anxious Patient Cognition Impaired: No Ability to Follow Directions: Good Speech Pattern: Clear, Impoverished and Monotone Memory Description: Intact Judgement: Fair Judgement and Insight: responds to encouragement and information/education around getting OOB and building strength Diagnostics Vital Signs (24Hr): Vital Signs - 24 hr 01/30/21 18:00 01/31/21 06:00 Temperature 98.2 F 96.3 F L Pulse Rate 86 80 Respiratory Rate 20 20 Blood Pressure 111/70 143/79 H Pulse Oximetry 96 97 Body Mass Index 17.0 Labs Results: 01/15/21 14:51 01/28/21 08:19 Labs: Laboratory Results - last 48 hr 01/29/21 01/30/21 01/30/21 20:24 06:45 11:58 POC Glucose 148 H 126 H 120 H 01/30/21 01/30/21 01/31/21 16:53 21:01 06:19 POC Glucose 113 117 H 123 H 01/31/21 12:07 POC Glucose 129 H Imaging Radiology Impressions: ITS Impressions Modified Barium Swallow 01/07/21 14:15 IMPRESSION: Laryngeal penetration and occasional aspiration as described above. Please refer to speech pathology report for details. Chest X-Ray 01/10/21 09:11 IMPRESSION: Severe chronic interstitial lung disease. No evidence of acute superimposed pneumonitis. Medications Medications Current Medications Generic Name Dose Route Start Last Admin Trade Name Freq PRN Reason Stop Dose Admin Acetaminophen 650 mg 01/09/21 15:51 01/16/21 17:00 Acetaminophen 325 Mg Tablet G-TUBE 650 mg Q4H PRN Administration Pain, Mild (Pain Scale 1-3) Al Hydroxide/Mg Hydroxide 30 ml 01/08/21 15:46 Magnesium Hydrox/Alum Hydrox 30 Ml Oral.Susp G-TUBE Q4H PRN Dyspepsia Amphetamine/Dextroamphetamine 2.5 mg 01/22/21 08:00 01/31/21 12:45 Amphetamine Mixed Salts 10 Mg Tablet G-TUBE 2.5 mg BID@0800,1300 DOMINICK Administration Budesonide 2 puff 12/31/20 20:00 01/31/21 08:33 Budesonide 180 Mcg Aer.Pow.Ba INHALE 2 puff RBID DOMINICK Administration Clotrimazole 1 appl 01/06/21 21:00 01/31/21 08:33 Clotrimazole 1 % Cream 15 Gm Tube TOPICAL 1 appl BID DOMINICK Administration Protocol Famotidine 20 mg 01/09/21 09:00 01/31/21 08:33 Famotidine 20 Mg Tablet G-TUBE 20 mg DAILY DOMINICK Administration Fluoxetine HCl 5 mg 01/27/21 09:00 01/31/21 08:32 Fluoxetine Hcl Oral Solution 20 Mg/5 Ml Solution PO 5 mg DAILY DOMINICK Administration Hydrocortisone 2.5 mg 01/23/21 19:00 01/30/21 18:26 Hydrocortisone 10 Mg Tablet PO 2.5 mg DAILY@1900 DOMINICK Administration Hydrocortisone 5 mg 01/23/21 13:00 01/31/21 12:45 Hydrocortisone 10 Mg Tablet PO 5 mg DAILY@1300 DOMINICK Administration Hydrocortisone 10 mg 01/28/21 08:00 01/31/21 08:33 Hydrocortisone 10 Mg Tablet PO 10 mg DAILY@0800 DOMINICK Administration Lorazepam 0.5 mg 01/18/21 10:29 01/31/21 12:44 Lorazepam 0.5 Mg Tablet PO 0.5 mg Q4H PRN Administration anxiety/restlessness Mirtazapine 7.5 mg 01/14/21 21:00 01/30/21 20:48 Mirtazapine 7.5 Mg Tablet G-TUBE 7.5 mg BEDTIME DOMINICK Administration Patient Own 1 each 01/08/21 21:00 Medication ( G-TUBE Nintedanib 150) BID DOMINICK Nystatin 400,000 unit 01/15/21 17:00 01/31/21 16:41 Nystatin Oral Susp 500,000 Unit/5 Ml Oral.Susp PO 400,000 unit QID DOMINICK Administration Protocol Omeprazole 40 mg 01/08/21 16:30 01/31/21 16:42 Omeprazole 20 Mg/10 Ml Susp.Recon G-TUBE 40 mg BID@0630,1630 DOMINICK Administration Prochlorperazine Edisylate 5 mg 12/31/20 23:21 01/06/21 09:42 Prochlorperazine Edisylate 10 Mg/2 Ml Vial IM 5 mg Q6H PRN Administration Nausea and Vomiting Thiamine HCl 100 mg 01/09/21 09:00 01/31/21 08:32 Thiamine Hcl 100 Mg Tablet G-TUBE 100 mg DAILY DOMINICK Administration Allergies Allergies Allergy/AdvReac Type Severity Reaction Status Date / Time Sulfa (Sulfonamide Allergy Unknown UNKNOWN Verified 12/01/20 09:47 Antibiotics) [SULFA (SULFONAMIDE ANTIBIOTICS)] zoster vaccine live Allergy Hives Verified 12/01/20 09:47 Assessment & Plan Assessment & Plan (1) Dysphagia: Qualifiers: Dysphagia type: unspecified Qualified Code(s): R13.10 - Dysphagia, unspecified Status: Acute Code(s): R13.10 - Dysphagia, unspecified (2) Pulmonary fibrosis: Status: Acute Code(s): J84.10 - Pulmonary fibrosis, unspecified (3) Chronic respiratory failure: Qualifiers: Respiratory failure complication: hypoxia Qualified Code(s): J96.11 - Chronic respiratory failure with hypoxia Status: Acute Code(s): J96.10 - Chronic respiratory failure, unspecified whether with hypoxia or hypercapnia (4) Bipolar I disorder with depression, severe: Status: Acute Code(s): F31.4 - Bipolar disorder, current episode depressed, severe, without psychotic features (5) Severe protein-calorie malnutrition: Status: Acute Code(s): E43 - Unspecified severe protein-calorie malnutrition Assessment and Plan: Continue per treatment team: IMPRESSION:bipolar depression cont ECT,PROZAC, ADDERALL and monitor for adverse effects Encourage OOB when able encourage walking Protein calorie malnutrition Continue PEG labs ordered spoke with dietary check electrolytes Pulmonary fibrosis aspiration continue NPO cont hydrocortizone Greater than 50% of the session was spent on counseling and/or coordination of care Reason for contiued inpatient stay Substantial Risk for: inability to function, rapid decompensation and med/psych decompensation
[2021-01-31 17:38] LABS: Glucose, Whole Blood 112 mg/dL (60-115)
[2021-01-31 18:00] VITALS: BP 107/70; PULSE 74; RESP 20; TEMP 36.6; O2SAT 97
[2021-01-31] MEDS: Hydrocortisone 10 MG TABLET 2.5 MG PO (20:46)
[2021-01-31] MEDS: Mirtazapine 7.5 MG TABLET G-TUBE (20:47)
[2021-01-31 21:02] LABS: Glucose, Whole Blood 141 mg/dL (60-115)
[2021-02-01 07:11] LABS: Glucose, Whole Blood 99 mg/dL (60-115)
[2021-02-01] MEDS: Budesonide 180 MCG AER.POW.BA 2 PUFF INHALE ×2 (09:08→21:48)
[2021-02-01] MEDS: Nystatin Oral Susp 500,000 UNIT/5 ML ORAL.SUSP 400000 UNIT PO ×4 (09:08→21:48)
[2021-02-01] MEDS: Clotrimazole 1 % Cream 15 GM TUBE 1 APPL TOPICAL ×2 (09:08→21:50)
[2021-02-01] MEDS: FLUoxetine HCl Oral Solution 20 MG/5 ML SOLUTION 5 MG PO (09:09)
[2021-02-01] MEDS: Amphetamine Mixed Salts 10 MG TABLET 2.5 MG G-TUBE (09:09)
[2021-02-01] MEDS: Acetaminophen 325 MG TABLET 650 MG G-TUBE (09:10)
[2021-02-01] MEDS: Famotidine 20 MG TABLET G-TUBE (09:10)
[2021-02-01] MEDS: Thiamine HCL 100 MG TABLET G-TUBE (09:10)
[2021-02-01] MEDS: Hydrocortisone 10 MG TABLET PO (09:10)
[2021-02-01 09:41] VITALS: BP 110/66; PULSE 74; RESP 22; TEMP 36.7; O2SAT 97
[2021-02-01 11:40] LABS: Glucose, Whole Blood 95 mg/dL (60-115)
[2021-02-01] MEDS: Amphetamine Mixed Salts 10 MG TABLET 5 MG G-TUBE (13:06)
[2021-02-01] MEDS: Hydrocortisone 10 MG TABLET 5 MG PO (13:06)
--- NOTE | 2021-02-01 13:44 | PC.NURSE ---
Patient is alert and oriented x3. He is dressed in hospital attire and resting comfortably in hospital bed. When asked how he is feeling he replies Fine. Patient reports depression 5/10 and anxiety 6/10. He reports he feels Tired today. Patient is sleeping intermittently the majority of shift. He ambulates to the bathroom once with staff assistance and 1L O2. Patient is weak with labored breathing in both the bathroom and back in bed. He is instructed on Pursed Lip breathing and slowing respirations. Patient is hesitant to engage in Incentive Spirometry exercises today, He completes a Rep of 4 reaching 750 ml. Medications are administered per M.D. Orders. Will continue to assess for status and condition.
--- NOTE | 2021-02-01 15:38 | MHC.CLN ---
F/U WT 108.7# (01/28/21), 111# (01/31/21) UP 2 # SINCE LAST ASSESSED PT MUST BE NPO R/T ECT TREATMENTS AND MAY BE AFFECTING KCAL INTAKE PT CURRENTLY RECEIVING OSMOLITE 1.5 AT MAX GOAL RATE 50CC/HR CONTINUOUS TO PROVIDE 1800KCALS (35KCALS/KG), 75G PROTEIN (1.5G/KG), 914CC FREE WATER FROM FORMULA. TF MEETS 100% RDI FLUID RESTRICTION 1L PER DAY 01/22/21 PER NEPHROLOGY CONTINUE TO MONITOR TOLERANCE, RESIDUALS AND LYTES CONSIDER CHANGING FEEDING TO BOLUS OR NOCTURNAL FEEDING FOR MAXIMUM NUTRITION SUPPORT WITH ECT IF BOLUS NEEDED; RECOMMEND OSMOLITE 240ML X5 PER DAY OR NOCTURNAL FEEDING OSMOLITE AT MAX GOAL 100CC/HR X 12 HRS CONT. NUTRITION PROVIDED IS SAME ABOVE AND MEETS PTS NEEDS DISCUSSED WITH MD FOLLOWING
[2021-02-01 17:00] VITALS: BP 117/76; PULSE 73; RESP 28; TEMP 36.4; O2SAT 94
[2021-02-01 17:06] LABS: Glucose, Whole Blood 143 mg/dL (60-115)
[2021-02-01] MEDS: Hydrocortisone 10 MG TABLET 2.5 MG PO (21:48)
[2021-02-01] MEDS: Mirtazapine 7.5 MG TABLET G-TUBE (21:49)
[2021-02-01] MEDS: LORazepam 0.5 MG TABLET PO (21:49)
[2021-02-01 22:00] VITALS: BP 129/82; PULSE 74; RESP 26; TEMP 36.9; O2SAT 94
[2021-02-01 22:06] LABS: Glucose, Whole Blood 129 mg/dL (60-115)
--- NOTE | 2021-02-01 22:47 | P.PNPSI_ITS ---
Subjective Subjective Date of Service: 02/01/21 Reason For Visit: severe depression Subjective Notes: Conditional Voluntary Healthcare Proxy: Yes Medical Problems Affecting Mental Status: Yes Interim History: Patient was fatigued after Monday's ECT ECT held today 02/01/2021 will consider for 5203 01. Patient stating he was feeling somewhat less catastrophic and thinking denies active self-harming thought remains on o ne-to-one Call placed to dietary any shape hurts and regarding tube feeding Medication Compliance: Yes Attending Groups: No Mental Status Exam Mental Status Exam Patient Appearance: Appropriate Patient Orientation: Person, Place, Time and Situation Level of Consciousness: Awake Patient Behavior: Appropriate and Passive Mood Description: Depressed, Flat and Apprehensive Affect Description: Depressed and Anxious Patient Cognition Impaired: No Ability to Follow Directions: Good Speech Pattern: Clear, Impoverished and Monotone Memory Description: Intact Judgement: Fair Judgement and Insight: responds to encouragement and information/education around getting OOB and building strength Diagnostics Vital Signs (24Hr): Vital Signs - 24 hr 02/01/21 09:41 Temperature 98.0 F Pulse Rate 74 Respiratory Rate 22 H Blood Pressure 110/66 Pulse Oximetry 97 Body Mass Index 17.0 Labs Results: 01/15/21 14:51 01/28/21 08:19 Labs: Laboratory Results - last 48 hr 01/31/21 01/31/21 01/31/21 06:19 12:07 16:39 POC Glucose 123 H 129 H 112 01/31/21 02/01/21 02/01/21 20:56 06:23 11:35 POC Glucose 141 H 99 95 02/01/21 02/01/21 16:46 21:31 POC Glucose 143 H 129 H Imaging Radiology Impressions: ITS Impressions Modified Barium Swallow 01/07/21 14:15 IMPRESSION: Laryngeal penetration and occasional aspiration as described above. Please refer to speech pathology report for details. Chest X-Ray 01/10/21 09:11 IMPRESSION: Severe chronic interstitial lung disease. No evidence of acute superimposed pneumonitis. Medications Medications Current Medications Generic Name Dose Route Start Last Admin Trade Name Freq PRN Reason Stop Dose Admin Acetaminophen 650 mg 01/09/21 15:51 02/01/21 09:10 Acetaminophen 325 Mg Tablet G-TUBE 650 mg Q4H PRN Administration Pain, Mild (Pain Scale 1-3) Al Hydroxide/Mg Hydroxide 30 ml 01/08/21 15:46 Magnesium Hydrox/Alum Hydrox 30 Ml Oral.Susp G-TUBE Q4H PRN Dyspepsia Amphetamine/Dextroamphetamine 5 mg 02/01/21 13:00 02/01/21 13:06 Amphetamine Mixed Salts 10 Mg Tablet G-TUBE 5 mg BID@0800,1300 DOMINICK Administration Budesonide 2 puff 12/31/20 20:00 02/01/21 21:48 Budesonide 180 Mcg Aer.Pow.Ba INHALE 2 puff RBID DOMINICK Administration Clotrimazole 1 appl 01/06/21 21:00 02/01/21 21:50 Clotrimazole 1 % Cream 15 Gm Tube TOPICAL 1 appl BID DOMINICK Administration Protocol Famotidine 20 mg 01/09/21 09:00 02/01/21 09:10 Famotidine 20 Mg Tablet G-TUBE 20 mg DAILY DOMINICK Administration Fluoxetine HCl 7.5 mg 02/02/21 09:00 Fluoxetine Hcl Oral Solution 20 Mg/5 Ml Solution PO DAILY DOMINICK Hydrocortisone 2.5 mg 01/23/21 19:00 02/01/21 21:48 Hydrocortisone 10 Mg Tablet PO 2.5 mg DAILY@1900 DOMINICK Administration Hydrocortisone 5 mg 01/23/21 13:00 02/01/21 13:06 Hydrocortisone 10 Mg Tablet PO 5 mg DAILY@1300 DOMINICK Administration Hydrocortisone 10 mg 01/28/21 08:00 02/01/21 09:10 Hydrocortisone 10 Mg Tablet PO 10 mg DAILY@0800 DOMINICK Administration Lorazepam 0.5 mg 02/01/21 16:43 02/01/21 21:49 Lorazepam 0.5 Mg Tablet PO 0.5 mg Q4H PRN Administration anxiety/restlessness Mirtazapine 7.5 mg 01/14/21 21:00 02/01/21 21:49 Mirtazapine 7.5 Mg Tablet G-TUBE 7.5 mg BEDTIME DOMINICK Administration Patient Own 1 each 01/08/21 21:00 Medication ( G-TUBE Nintedanib 150) BID DOMINICK Nystatin 400,000 unit 01/15/21 17:00 02/01/21 21:48 Nystatin Oral Susp 500,000 Unit/5 Ml Oral.Susp PO 400,000 unit QID DOMINICK Administration Protocol Omeprazole 40 mg 01/08/21 16:30 02/01/21 17:24 Omeprazole 20 Mg/10 Ml Susp.Recon G-TUBE 40 mg BID@0630,2160 DOMINICK Administration Prochlorperazine Edisylate 5 mg 12/31/20 23:21 01/06/21 09:42 Prochlorperazine Edisylate 10 Mg/2 Ml Vial IM 5 mg Q6H PRN Administration Nausea and Vomiting Thiamine HCl 100 mg 01/09/21 09:00 02/01/21 09:10 Thiamine Hcl 100 Mg Tablet G-TUBE 100 mg DAILY DOMINICK Administration Allergies Allergies Allergy/AdvReac Type Severity Reaction Status Date / Time Sulfa (Sulfonamide Allergy Unknown UNKNOWN Verified 12/01/20 09:47 Antibiotics) [SULFA (SULFONAMIDE ANTIBIOTICS)] zoster vaccine live Allergy Hives Verified 12/01/20 09:47 Assessment & Plan Assessment & Plan (1) Dysphagia: Qualifiers: Dysphagia type: unspecified Qualified Code(s): R13.10 - Dysphagia, unspecified Status: Acute Code(s): R13.10 - Dysphagia, unspecified (2) Pulmonary fibrosis: Status: Acute Code(s): J84.10 - Pulmonary fibrosis, unspecified (3) Chronic respiratory failure: Qualifiers: Respiratory failure complication: hypoxia Qualified Code(s): J96.11 - Chronic respiratory failure with hypoxia Status: Acute Code(s): J96.10 - Chronic respiratory failure, unspecified whether with hypoxia or hypercapnia (4) Bipolar I disorder with depression, severe: Status: Acute Code(s): F31.4 - Bipolar disorder, current episode depressed, severe, without psychotic features (5) Severe protein-calorie malnutrition: Status: Acute Code(s): E43 - Unspecified severe protein-calorie malnutrition Assessment and Plan: Continue per treatment team: IMPRESSION:bipolar depression cont ECT,PROZAC, ADDERALL and monitor for adverse effects Increase Prozac to 7.5 mg daily Adderall 5 mg b.i.d. continue PEG feedings continue ECT as tolerated Encourage OOB when able encourage walking Protein calorie malnutrition Continue PEG labs ordered spoke with dietary check electrolytes Pulmonary fibrosis aspiration continue NPO cont hydrocortizone Greater than 50% of the session was spent on counseling and/or coordination of care Reason for contiued inpatient stay Substantial Risk for: inability to function, rapid decompensation and med/psych decompensation
[2021-02-02 05:34] VITALS: BP 115/71; PULSE 79; RESP 16; TEMP 36.7; O2SAT 97
[2021-02-02 06:05] LABS: Glucose, Whole Blood 130 mg/dL (60-115)
[2021-02-02] MEDS: Clotrimazole 1 % Cream 15 GM TUBE 1 APPL TOPICAL ×2 (08:41→21:49)
[2021-02-02] MEDS: Budesonide 180 MCG AER.POW.BA 2 PUFF INHALE ×2 (08:41→21:49)
[2021-02-02] MEDS: FLUoxetine HCl Oral Solution 20 MG/5 ML SOLUTION 7.5 MG PO (08:42)
[2021-02-02] MEDS: Thiamine HCL 100 MG TABLET G-TUBE (08:43)
[2021-02-02] MEDS: Hydrocortisone 10 MG TABLET PO (08:43)
[2021-02-02] MEDS: LORazepam 0.5 MG TABLET PO ×3 (08:44→17:26)
[2021-02-02] MEDS: Famotidine 20 MG TABLET G-TUBE (08:44)
[2021-02-02] MEDS: Nystatin Oral Susp 500,000 UNIT/5 ML ORAL.SUSP 400000 UNIT PO ×4 (08:44→21:49)
[2021-02-02] MEDS: Amphetamine Mixed Salts 10 MG TABLET 5 MG G-TUBE ×2 (08:44→13:26)
[2021-02-02 10:36] VITALS: BP 121/66; PULSE 77; RESP 18; TEMP 36.6; O2SAT 94
[2021-02-02 12:19] LABS: Glucose, Whole Blood 132 mg/dL (60-115)
[2021-02-02] MEDS: Hydrocortisone 10 MG TABLET 5 MG PO (13:26)
--- NOTE | 2021-02-02 14:33 | MHC.CLN ---
F/U PT CURRENTLY RECEIVING OSMOLITE 1.5 AT MAX GOAL RATE 50CC/HR CONTINUOUS TO PROVIDE 1800KCALS (35KCALS/KG), 75G PROTEIN (1.5G/KG), 914CC FREE WATER FROM FORMULA. TF MEETS 100% RDI FLUID RESTRICTION 1L PER DAY 01/22/21 PER NEPHROLOGY DISCUSSED WITH MD IN PREPARATION FOR UPCOMING ECT TREATMENTS RECOMMEND OSMOLITE AT MAX GOAL 100CC/HR X 12 HRS CONT. CONTINUOUS FROM 9AM-9PM NUTRITION PROVIDED IS SAME ABOVE AND MEETS PTS NEEDS FOLLOWING
[2021-02-02 16:20] VITALS: BP 117/73; PULSE 73; RESP 24; TEMP 36.9; O2SAT 97
[2021-02-02 17:47] LABS: Glucose, Whole Blood 139 mg/dL (60-115)
[2021-02-02 20:00] VITALS: O2SAT 95
[2021-02-02 21:38] LABS: Glucose, Whole Blood 130 mg/dL (60-115)
[2021-02-02] MEDS: Hydrocortisone 10 MG TABLET 2.5 MG PO (21:50)
[2021-02-02] MEDS: Mirtazapine 7.5 MG TABLET G-TUBE (21:51)
--- NOTE | 2021-02-02 22:52 | HO.PSYCHPN ---
Subjective Subjective Date of Service: 02/02/21 Reason For Visit: severe depression Subjective Notes: Conditional Voluntary Healthcare Proxy: Yes Interim History: pt flat with fatigue less depressed feeding changed with help from dietary Medication Compliance: Yes Side effects from medications: Yes Attending Groups: No Diagnostics Vital Signs (24Hr): Vital Signs - 24 hr 02/02/21 05:34 02/02/21 10:36 02/02/21 16:20 Temperature 98.0 F 98 F 98.5 F Pulse Rate 79 77 73 Respiratory Rate 16 18 24 H Blood Pressure 115/71 121/66 117/73 Pulse Oximetry 97 94 97 Body Mass Index 17.0 Labs Results: 01/15/21 14:51 01/28/21 08:19 Labs: Laboratory Results - last 48 hr 02/01/21 02/01/21 02/01/21 06:23 11:35 16:46 POC Glucose 99 95 143 H 02/01/21 02/02/21 02/02/21 21:31 05:31 12:13 POC Glucose 129 H 130 H 132 H 02/02/21 02/02/21 16:33 21:32 POC Glucose 139 H 130 H Imaging Radiology Impressions: ITS Impressions Modified Barium Swallow 01/07/21 14:15 IMPRESSION: Laryngeal penetration and occasional aspiration as described above. Please refer to speech pathology report for details. Chest X-Ray 01/10/21 09:11 IMPRESSION: Severe chronic interstitial lung disease. No evidence of acute superimposed pneumonitis. Medications Medications Current Medications Generic Name Dose Route Start Last Admin Trade Name Freq PRN Reason Stop Dose Admin Acetaminophen 650 mg 01/09/21 15:51 02/01/21 09:10 Acetaminophen 325 Mg Tablet G-TUBE 650 mg Q4H PRN Administration Pain, Mild (Pain Scale 1-3) Al Hydroxide/Mg Hydroxide 30 ml 01/08/21 15:46 Magnesium Hydrox/Alum Hydrox 30 Ml Oral.Susp G-TUBE Q4H PRN Dyspepsia Amphetamine/Dextroamphetamine 5 mg 02/01/21 13:00 02/02/21 13:26 Amphetamine Mixed Salts 10 Mg Tablet G-TUBE 5 mg BID@0800,1300 DOMINICK Administration Budesonide 2 puff 12/31/20 20:00 02/02/21 21:49 Budesonide 180 Mcg Aer.Pow.Ba INHALE 2 puff RBID DOMINICK Administration Clotrimazole 1 appl 01/06/21 21:00 02/02/21 21:49 Clotrimazole 1 % Cream 15 Gm Tube TOPICAL 1 appl BID DOMINICK Administration Protocol Famotidine 20 mg 01/09/21 09:00 02/02/21 08:44 Famotidine 20 Mg Tablet G-TUBE 20 mg DAILY DOMINICK Administration Fluoxetine HCl 7.5 mg 02/02/21 09:00 02/02/21 08:42 Fluoxetine Hcl Oral Solution 20 Mg/5 Ml Solution PO 7.5 mg DAILY DOMINICK Administration Hydrocortisone 2.5 mg 01/23/21 19:00 02/02/21 21:50 Hydrocortisone 10 Mg Tablet PO 2.5 mg DAILY@1900 DOMINICK Administration Hydrocortisone 5 mg 01/23/21 13:00 02/02/21 13:26 Hydrocortisone 10 Mg Tablet PO 5 mg DAILY@1300 DOMINICK Administration Hydrocortisone 10 mg 01/28/21 08:00 02/02/21 08:43 Hydrocortisone 10 Mg Tablet PO 10 mg DAILY@0800 DOMINICK Administration Lorazepam 0.5 mg 02/01/21 16:43 02/02/21 17:26 Lorazepam 0.5 Mg Tablet PO 0.5 mg Q4H PRN Administration anxiety/restlessness Mirtazapine 7.5 mg 01/14/21 21:00 02/02/21 21:51 Mirtazapine 7.5 Mg Tablet G-TUBE 7.5 mg BEDTIME DOMINICK Administration Nystatin 400,000 unit 01/15/21 17:00 02/02/21 21:49 Nystatin Oral Susp 500,000 Unit/5 Ml Oral.Susp PO 400,000 unit QID DOMINICK Administration Protocol Omeprazole 40 mg 01/08/21 16:30 02/02/21 17:25 Omeprazole 20 Mg/10 Ml Susp.Recon G-TUBE 40 mg BID@0630,1630 DOMINICK Administration Prochlorperazine Edisylate 5 mg 12/31/20 23:21 01/06/21 09:42 Prochlorperazine Edisylate 10 Mg/2 Ml Vial IM 5 mg Q6H PRN Administration Nausea and Vomiting Thiamine HCl 100 mg 01/09/21 09:00 02/02/21 08:43 Thiamine Hcl 100 Mg Tablet G-TUBE 100 mg DAILY DOMINICK Administration Allergies Allergies Allergy/AdvReac Type Severity Reaction Status Date / Time Sulfa (Sulfonamide Allergy Unknown UNKNOWN Verified 12/01/20 09:47 Antibiotics) [SULFA (SULFONAMIDE ANTIBIOTICS)] zoster vaccine live Allergy Hives Verified 12/01/20 09:47 Assessment & Plan Assessment & Plan (1) Dysphagia: Qualifiers: Dysphagia type: unspecified Qualified Code(s): R13.10 - Dysphagia, unspecified Status: Acute Code(s): R13.10 - Dysphagia, unspecified (2) Pulmonary fibrosis: Status: Acute Code(s): J84.10 - Pulmonary fibrosis, unspecified (3) Chronic respiratory failure: Qualifiers: Respiratory failure complication: hypoxia Qualified Code(s): J96.11 - Chronic respiratory failure with hypoxia Status: Acute Code(s): J96.10 - Chronic respiratory failure, unspecified whether with hypoxia or hypercapnia (4) Bipolar I disorder with depression, severe: Status: Acute Code(s): F31.4 - Bipolar disorder, current episode depressed, severe, without psychotic features (5) Severe protein-calorie malnutrition: Status: Acute Code(s): E43 - Unspecified severe protein-calorie malnutrition Assessment and Plan: Continue per treatment team: IMPRESSION:bipolar depression cont ECT,PROZAC, ADDERALL and monitor for adverse effects Increase Prozac to 7.5 mg daily Adderall 5 mg b.i.d. continue PEG feedings continue ECT as tolerated Encourage OOB when able encourage walking Protein calorie malnutrition Continue PEG feedings Pulmonary fibrosis aspiration continue NPO cont hydrocortizone Greater than 50% of the session was spent on counseling and/or coordination of care Reason for contiued inpatient stay Substantial Risk for: inability to function, rapid decompensation and med/psych decompensation
[2021-02-03] VITALS (10 sets, daily range): BP systolic 109–139; BP diastolic 70–89; PULSE 70–90; RESP 16–22; TEMP 36.2–37; O2SAT 95–100; BMI 17.5
--- NOTE | 2021-02-03 | ECG_ITS ---
Test Reason : ON ADDERAL Blood Pressure : / mmHG Vent. Rate : 075 BPM Atrial Rate : 075 BPM P-R Int : 152 ms QRS Dur : 092 ms QT Int : 398 ms P-R-T Axes : 042 015 024 degrees QTc Int : 444 ms Normal sinus rhythm Normal ECG When compared with ECG of 13-JAN-2021 14:04, No significant changes seen Referred By: Blane Chowdhury Electronically Signed By:YUDI GUILLEN
[2021-02-03 06:04] LABS: Glucose, Whole Blood 85 mg/dL (60-115)
--- NOTE | 2021-02-03 06:56 | HO.ANESPROP2 ---
[facility] Active Problems Active Problems: All Active Problems (Updated 01/22/21 @ 13:04 by Nile Quezada MD) Adrenal insufficiency (Acute) Severe protein-calorie malnutrition (Acute) Severe malnutrition (Acute) Chronic respiratory failure (Acute) Hyponatremia (Acute) Dysphagia (Acute) Metabolic encephalopathy (Acute) Pneumonia (Acute) Hypotension (Acute) Swallowing dysfunction (Acute) Increased oxygen demand (Acute) Pulmonary fibrosis (Acute) Bipolar I disorder with depression, severe (Acute) CKD (chronic kidney disease) stage 3, GFR 30-59 ml/min (Acute) Bipolar disorder (Acute) Past Medical History Medical History Anemia Anxiety Bronchiectasis Cerebrovascular disease Chronic hyponatremia Chronic respiratory failure CKD (chronic kidney disease) stage 3, GFR 30-59 ml/min Degenerative arthritis Depression History of electroconvulsive therapy Hx of bladder cancer Hydrocele Pulmonary fibrosis Pulmonary fibrosis Family History Family History Father Colon cancer Family history of problems with anesthesia: No Surgical History Surgical History History of bladder surgery History of Problems with Anesthesia: Yes (N&V) Social History Social History Household Members: Spouse Housing: Apartment Do you presently have visiting nurse or other home services: Yes Unable to assess alcohol history related to: Unable to respond and Unknown Smoking Status: Former smoker Tobacco Type: Cigarette Packs Per Day: 1 Cigarettes Per Day: 20.0 Years Smoked: 20 Smoked in Last 30 Days: No Patient Interested in Nicotine Replacement: No Patient Given Instructions on How to Stop Smoking: No Second Hand Smoke Exposure: No Use of substances other than those prescribed or required for medical reasons: No Substance Use Type: Marijuana Currently Displaying Signs/Symptoms of Drug Intoxication Withdrawal: No Spiritual Healthcare Practices: none Gnosticist Healthcare Practices: none Cultural Healthcare Practices: none Are you DNR?: No Advance Directives: Yes Advance Directives on File: Yes Advance Directives Date on File: 11/27/20 Do you have thoughts of harming others: None Do you have a plan to hurt others: No Plan Recently lost weight without trying: Yes How much weight loss: 2-13 pounds Eating poorly because of decreased appetite: Yes Nutrition screen score: 4 Nutrition Risks: Emaciation/Cachexia Poor oral hygiene: No service: No Current occupational status: retired and disabled Sexual orientation: Straight/Heterosexual Meds Allergies Allergy/AdvReac Type Severity Reaction Status Date / Time Sulfa (Sulfonamide Allergy Unknown UNKNOWN Verified 12/01/20 09:47 Antibiotics) [SULFA (SULFONAMIDE ANTIBIOTICS)] zoster vaccine live Allergy Hives Verified 12/01/20 09:47 Active Medications: Current Medications Generic Name Dose Route Start Last Admin Trade Name Freq PRN Reason Stop Dose Admin Acetaminophen 650 mg 01/09/21 15:51 02/01/21 09:10 Acetaminophen 325 Mg Tablet G-TUBE 650 mg Q4H PRN Administration Pain, Mild (Pain Scale 1-3) Al Hydroxide/Mg Hydroxide 30 ml 01/08/21 15:46 Magnesium Hydrox/Alum Hydrox 30 Ml Oral.Susp G-TUBE Q4H PRN Dyspepsia Amphetamine/Dextroamphetamine 5 mg 02/01/21 13:00 02/02/21 13:26 Amphetamine Mixed Salts 10 Mg Tablet G-TUBE 5 mg BID@0800,1300 DOMINICK Administration Budesonide 2 puff 12/31/20 20:00 02/02/21 21:49 Budesonide 180 Mcg Aer.Pow.Ba INHALE 2 puff RBID DOMINICK Administration Clotrimazole 1 appl 01/06/21 21:00 02/02/21 21:49 Clotrimazole 1 % Cream 15 Gm Tube TOPICAL 1 appl BID DOMINICK Administration Protocol Famotidine 20 mg 01/09/21 09:00 02/02/21 08:44 Famotidine 20 Mg Tablet G-TUBE 20 mg DAILY DOMINICK Administration Fluoxetine HCl 7.5 mg 02/02/21 09:00 02/02/21 08:42 Fluoxetine Hcl Oral Solution 20 Mg/5 Ml Solution PO 7.5 mg DAILY DOMINICK Administration Hydrocortisone 2.5 mg 01/23/21 19:00 02/02/21 21:50 Hydrocortisone 10 Mg Tablet PO 2.5 mg DAILY@1900 DOMINICK Administration Hydrocortisone 5 mg 01/23/21 13:00 02/02/21 13:26 Hydrocortisone 10 Mg Tablet PO 5 mg DAILY@1300 DOMINICK Administration Hydrocortisone 10 mg 01/28/21 08:00 02/02/21 08:43 Hydrocortisone 10 Mg Tablet PO 10 mg DAILY@0800 DOMINICK Administration Lactated Ringer's 1,000 mls @ 20 mls/hr 02/03/21 07:00 Lr IVCONT .Q24H DOMINICK Lorazepam 0.5 mg 02/01/21 16:43 02/02/21 17:26 Lorazepam 0.5 Mg Tablet PO 0.5 mg Q4H PRN Administration anxiety/restlessness Mirtazapine 7.5 mg 01/14/21 21:00 02/02/21 21:51 Mirtazapine 7.5 Mg Tablet G-TUBE 7.5 mg BEDTIME DOMINICK Administration Nystatin 400,000 unit 01/15/21 17:00 02/02/21 21:49 Nystatin Oral Susp 500,000 Unit/5 Ml Oral.Susp PO 400,000 unit QID DOMINICK Administration Protocol Omeprazole 40 mg 01/08/21 16:30 02/02/21 17:25 Omeprazole 20 Mg/10 Ml Susp.Recon G-TUBE 40 mg BID@0630,1630 DOMINICK Administration Prochlorperazine Edisylate 5 mg 12/31/20 23:21 01/06/21 09:42 Prochlorperazine Edisylate 10 Mg/2 Ml Vial IM 5 mg Q6H PRN Administration Nausea and Vomiting Thiamine HCl 100 mg 01/09/21 09:00 02/02/21 08:43 Thiamine Hcl 100 Mg Tablet G-TUBE 100 mg DAILY DOMINICK Administration Home Medications Medication Instructions Recorded Confirmed Last Taken Type Latuda 1 tab PO DAILY 11/25/20 12/31/20 11/25/20 History Ofev 150 mg PO BID 11/25/20 12/31/20 11/25/20 History docusate sodium [Stool Softener] 1 cap PO BID PRN 11/25/20 12/31/20 11/25/20 History lorazepam 1 tab PO BID PRN 11/25/20 12/31/20 11/25/20 History mirtazapine 1 tab PO BEDTIME 11/25/20 12/31/20 11/24/20 History ondansetron 1 tab PO Q8H PRN 11/25/20 12/31/20 Unknown History quetiapine 37.5 mg PO BEDTIME 11/25/20 12/31/20 11/24/20 History Exam Exam Date and Time: February 03, 2021 0656 Height,Weight and Vital Signs: Height 5 ft 7 in Weight 50.802 kg Last Vital Signs Temp 98.6 F 02/03/21 06:27 Pulse 73 02/03/21 06:27 Resp 18 02/03/21 06:27 BP 130/85 02/03/21 06:27 Pulse Ox 97 02/03/21 06:27 Pertinent Lab Results Pertinent Lab Results: Laboratory Tests 01/01/21 01/05/21 01/08/21 14:34 15:05 07:46 WBC 10.6 RBC 3.17 L Hgb 10.0 L Hct 29.4 L MCV 92.7 MCH 31.5 MCHC 34.0 RDW 15.3 Plt Count 319 MPV 10.7 Immature Gran % (Auto) Neut % (Auto) Lymph % (Auto) [place] % (Auto) Eos % (Auto) Baso % (Auto) Lymph # (Auto) [place] # (Auto) Eos # (Auto) Baso # (Auto) Abs Immat Gran (auto) Absolute Neuts (auto) Absolute Nucleated RBC 0.000 Nucleated RBC % (auto) 0.0 Smear Tech's Comments PT INR D-Dimer O2 Saturation ABG pH at Pt Temp ABG pH (Temp Correct) ABG pCO2 at Pt Temp ABG pCO2 (Temp Corrct ABG pO2 at Pt Temp ABG pO2 (Temp Correct ABG HCO3 ABG Base Excess (Actual) Sodium 132 L 131 L Potassium 5.2 H 5.1 Chloride 97 96 Carbon Dioxide 27 26 Anion Gap 13 14 BUN 25 H Creatinine 1.00 Estim Creat Clear Calc 45.7 Estimated GFR > 60 POC Glucose Random Glucose 145 H D Fasting Glucose Estimat Average Glucose Hemoglobin A1c % Calcium 9.2 Phosphorus Magnesium Total Bilirubin 0.5 AST 36 D ALT 29 Alkaline Phosphatase 137 H D Troponin I High Sens Total Protein 6.7 D Albumin 3.1 L D Cortisol Baseline Cortisol 30 Minute Cortisol 60 Minute ACTH Resp to [place] Cortisol Sreekanth Time 1 Cortisol Sreekanth Time 2 Cortisol Sreekanth Time 3 ACTH Comment 01/08/21 01/09/21 01/10/21 07:46 07:12 09:26 WBC 18.1 H RBC 3.44 L Hgb 10.9 L Hct 31.8 L MCV 92.4 MCH 31.7 MCHC 34.3 RDW 15.2 Plt Count 347 MPV 10.8 Immature Gran % (Auto) Neut % (Auto) Lymph % (Auto) [place] % (Auto) Eos % (Auto) Baso % (Auto) Lymph # (Auto) [place] # (Auto) Eos # (Auto) Baso # (Auto) Abs Immat Gran (auto) Absolute Neuts (auto) Absolute Nucleated RBC 0.000 Nucleated RBC % (auto) 0.0 Smear Tech's Comments PT 13.5 H INR 1.1 D-Dimer 994 O2 Saturation ABG pH at Pt Temp ABG pH (Temp Correct) ABG pCO2 at Pt Temp ABG pCO2 (Temp Corrct ABG pO2 at Pt Temp ABG pO2 (Temp Correct ABG HCO3 ABG Base Excess (Actual) Sodium Potassium Chloride Carbon Dioxide Anion Gap BUN Creatinine Estim Creat Clear Calc Estimated GFR POC Glucose Random Glucose Fasting Glucose Estimat Average Glucose Hemoglobin A1c % Calcium Phosphorus Magnesium Total Bilirubin AST ALT Alkaline Phosphatase Troponin I High Sens Total Protein Albumin Cortisol Baseline Cortisol 30 Minute Cortisol 60 Minute ACTH Resp to [place] Cortisol Sreekanth Time 1 Cortisol Sreekanth Time 2 Cortisol Sreekanth Time 3 ACTH Comment 01/10/21 01/10/21 01/10/21 09:26 09:26 09:28 WBC 22.2 H RBC 3.38 L Hgb 10.8 L Hct 31.2 L MCV 92.3 MCH 32.0 MCHC 34.6 RDW 15.1 Plt Count 311 MPV 10.4 Immature Gran % (Auto) 0.5 H Neut % (Auto) 84.9 H Lymph % (Auto) 7.4 L [place] % (Auto) 7.1 Eos % (Auto) 0.0 Baso % (Auto) 0.1 Lymph # (Auto) 1.6 [place] # (Auto) 1.6 H Eos # (Auto) 0.0 Baso # (Auto) 0.0 Abs Immat Gran (auto) 0.12 H Absolute Neuts (auto) 18.8 H Absolute Nucleated RBC 0.000 Nucleated RBC % (auto) 0.0 Smear Tech's Comments VERIFIED PT INR D-Dimer O2 Saturation ABG pH at Pt Temp ABG pH (Temp Correct) ABG pCO2 at Pt Temp ABG pCO2 (Temp Corrct ABG pO2 at Pt Temp ABG pO2 (Temp Correct ABG HCO3 ABG Base Excess (Actual) Sodium 130 L Potassium 4.1 Chloride 95 L Carbon Dioxide 31 H Anion Gap 8 L BUN 18 H Creatinine 0.83 Estim Creat Clear Calc 53.1 Estimated GFR > 60 POC Glucose Random Glucose 151 H Fasting Glucose Estimat Average Glucose Hemoglobin A1c % Calcium 8.3 L D Phosphorus Magnesium Total Bilirubin AST ALT Alkaline Phosphatase Troponin I High Sens 14.4 D Total Protein Albumin Cortisol Baseline Cortisol 30 Minute Cortisol 60 Minute ACTH Resp to [place] Cortisol Sreekanth Time 1 Cortisol Sreekanth Time 2 Cortisol Sreekanth Time 3 ACTH Comment 01/10/21 01/13/21 01/15/21 09:49 07:56 14:51 WBC 11.2 H RBC 3.37 L Hgb 10.6 L Hct 31.9 L MCV 94.7 MCH 31.5 MCHC 33.2 RDW 15.5 Plt Count 382 MPV 10.7 Immature Gran % (Auto) 0.5 H Neut % (Auto) 79.8 H Lymph % (Auto) 13.3 L [place] % (Auto) 5.8 Eos % (Auto) 0.4 Baso % (Auto) 0.2 Lymph # (Auto) 1.5 [place] # (Auto) 0.7 Eos # (Auto) 0.1 Baso # (Auto) 0.0 Abs Immat Gran (auto) 0.06 H Absolute Neuts (auto) 8.9 H Absolute Nucleated RBC 0.000 Nucleated RBC % (auto) 0.0 Smear Tech's Comments PT INR D-Dimer O2 Saturation 98.0 ABG pH at Pt Temp 7.49 H ABG pH (Temp Correct) 7.49 H ABG pCO2 at Pt Temp 40 ABG pCO2 (Temp Corrct 40 ABG pO2 at Pt Temp 99 ABG pO2 (Temp Correct 101 ABG HCO3 31 H ABG Base Excess (Actual) 7.4 Sodium 133 L Potassium 4.6 Chloride 95 L Carbon Dioxide 33 H Anion Gap 10 L BUN 18 H Creatinine 0.78 Estim Creat Clear Calc 57.2 Estimated GFR > 60 POC Glucose Random Glucose 132 H Fasting Glucose Estimat Average Glucose Hemoglobin A1c % Calcium 8.5 Phosphorus Magnesium Total Bilirubin 0.4 AST 27 ALT 20 Alkaline Phosphatase 150 H Troponin I High Sens Total Protein 5.9 L Albumin 2.5 L Cortisol Baseline Cortisol 30 Minute Cortisol 60 Minute ACTH Resp to [place] Cortisol Sreekanth Time 1 Cortisol Sreekanth Time 2 Cortisol Sreekanth Time 3 ACTH Comment 01/15/21 01/18/21 01/19/21 14:51 15:36 22:29 WBC RBC Hgb Hct MCV MCH MCHC RDW Plt Count MPV Immature Gran % (Auto) Neut % (Auto) Lymph % (Auto) [place] % (Auto) Eos % (Auto) Baso % (Auto) Lymph # (Auto) [place] # (Auto) Eos # (Auto) Baso # (Auto) Abs Immat Gran (auto) Absolute Neuts (auto) Absolute Nucleated RBC Nucleated RBC % (auto) Smear Tech's Comments PT INR D-Dimer O2 Saturation ABG pH at Pt Temp ABG pH (Temp Correct) ABG pCO2 at Pt Temp ABG pCO2 (Temp Corrct ABG pO2 at Pt Temp ABG pO2 (Temp Correct ABG HCO3 ABG Base Excess (Actual) Sodium 132 L 132 L Potassium 5.1 5.1 Chloride 94 L 95 L Carbon Dioxide 32 H 31 H Anion Gap 11 L 11 L BUN 22 H Creatinine 0.88 Estim Creat Clear Calc 49.0 Estimated GFR > 60 POC Glucose 112 Random Glucose 165 H Fasting Glucose Estimat Average Glucose Hemoglobin A1c % Calcium 8.8 Phosphorus 3.0 Magnesium 2.1 Total Bilirubin 0.3 AST 34 ALT 55 H Alkaline Phosphatase 174 H Troponin I High Sens Total Protein 6.4 L Albumin 2.8 L Cortisol Baseline Cortisol 30 Minute Cortisol 60 Minute ACTH Resp to [place] Cortisol Sreekanth Time 1 Cortisol Sreekanth Time 2 Cortisol Sreekanth Time 3 ACTH Comment 01/20/21 01/20/21 01/20/21 05:55 08:29 12:08 WBC RBC Hgb Hct MCV MCH MCHC RDW Plt Count MPV Immature Gran % (Auto) Neut % (Auto) Lymph % (Auto) [place] % (Auto) Eos % (Auto) Baso % (Auto) Lymph # (Auto) [place] # (Auto) Eos # (Auto) Baso # (Auto) Abs Immat Gran (auto) Absolute Neuts (auto) Absolute Nucleated RBC Nucleated RBC % (auto) Smear Tech's Comments PT INR D-Dimer O2 Saturation ABG pH at Pt Temp ABG pH (Temp Correct) ABG pCO2 at Pt Temp ABG pCO2 (Temp Corrct ABG pO2 at Pt Temp ABG pO2 (Temp Correct ABG HCO3 ABG Base Excess (Actual) Sodium Potassium Chloride Carbon Dioxide Anion Gap BUN Creatinine Estim Creat Clear Calc Estimated GFR POC Glucose 111 127 H Random Glucose Fasting Glucose Estimat Average Glucose 117 Hemoglobin A1c % 5.7 Calcium Phosphorus Magnesium Total Bilirubin AST ALT Alkaline Phosphatase Troponin I High Sens Total Protein Albumin Cortisol Baseline Cortisol 30 Minute Cortisol 60 Minute ACTH Resp to [place] Cortisol Sreekanth Time 1 Cortisol Sreekanth Time 2 Cortisol Sreekanth Time 3 ACTH Comment 01/20/21 01/20/21 01/20/21 12:32 16:53 21:21 WBC RBC Hgb Hct MCV MCH MCHC RDW Plt Count MPV Immature Gran % (Auto) Neut % (Auto) Lymph % (Auto) [place] % (Auto) Eos % (Auto) Baso % (Auto) Lymph # (Auto) [place] # (Auto) Eos # (Auto) Baso # (Auto) Abs Immat Gran (auto) Absolute Neuts (auto) Absolute Nucleated RBC Nucleated RBC % (auto) Smear Tech's Comments PT INR D-Dimer O2 Saturation ABG pH at Pt Temp ABG pH (Temp Correct) ABG pCO2 at Pt Temp ABG pCO2 (Temp Corrct ABG pO2 at Pt Temp ABG pO2 (Temp Correct ABG HCO3 ABG Base Excess (Actual) Sodium Potassium Chloride Carbon Dioxide Anion Gap BUN Creatinine Estim Creat Clear Calc Estimated GFR POC Glucose 140 H 89 Random Glucose Fasting Glucose Estimat Average Glucose Hemoglobin A1c % Calcium Phosphorus Magnesium Total Bilirubin AST ALT Alkaline Phosphatase Troponin I High Sens Total Protein Albumin Cortisol Baseline 10.3 Cortisol 30 Minute 16.3 L Cortisol 60 Minute 19.8 L ACTH Resp to [place] 1132 Cortisol Sreekanth Time 1 0829 Cortisol Sreekanth Time 2 1206 Cortisol Sreekanth Time 3 1232 ACTH Comment See Below 01/21/21 01/21/21 01/21/21 05:43 11:36 18:05 WBC RBC Hgb Hct MCV MCH MCHC RDW Plt Count MPV Immature Gran % (Auto) Neut % (Auto) Lymph % (Auto) [place] % (Auto) Eos % (Auto) Baso % (Auto) Lymph # (Auto) [place] # (Auto) Eos # (Auto) Baso # (Auto) Abs Immat Gran (auto) Absolute Neuts (auto) Absolute Nucleated RBC Nucleated RBC % (auto) Smear Tech's Comments PT INR D-Dimer O2 Saturation ABG pH at Pt Temp ABG pH (Temp Correct) ABG pCO2 at Pt Temp ABG pCO2 (Temp Corrct ABG pO2 at Pt Temp ABG pO2 (Temp Correct ABG HCO3 ABG Base Excess (Actual) Sodium Potassium Chloride Carbon Dioxide Anion Gap BUN Creatinine Estim Creat Clear Calc Estimated GFR POC Glucose 130 H 130 H 118 H Random Glucose Fasting Glucose Estimat Average Glucose Hemoglobin A1c % Calcium Phosphorus Magnesium Total Bilirubin AST ALT Alkaline Phosphatase Troponin I High Sens Total Protein Albumin Cortisol Baseline Cortisol 30 Minute Cortisol 60 Minute ACTH Resp to [place] Cortisol Sreekanth Time 1 Cortisol Sreekanth Time 2 Cortisol Sreekanth Time 3 ACTH Comment 01/21/21 01/22/21 01/22/21 20:09 05:36 12:41 WBC RBC Hgb Hct MCV MCH MCHC RDW Plt Count MPV Immature Gran % (Auto) Neut % (Auto) Lymph % (Auto) [place] % (Auto) Eos % (Auto) Baso % (Auto) Lymph # (Auto) [place] # (Auto) Eos # (Auto) Baso # (Auto) Abs Immat Gran (auto) Absolute Neuts (auto) Absolute Nucleated RBC Nucleated RBC % (auto) Smear Tech's Comments PT INR D-Dimer O2 Saturation ABG pH at Pt Temp ABG pH (Temp Correct) ABG pCO2 at Pt Temp ABG pCO2 (Temp Corrct ABG pO2 at Pt Temp ABG pO2 (Temp Correct ABG HCO3 ABG Base Excess (Actual) Sodium Potassium Chloride Carbon Dioxide Anion Gap BUN Creatinine Estim Creat Clear Calc Estimated GFR POC Glucose 100 119 H 152 H Random Glucose Fasting Glucose Estimat Average Glucose Hemoglobin A1c % Calcium Phosphorus Magnesium Total Bilirubin AST ALT Alkaline Phosphatase Troponin I High Sens Total Protein Albumin Cortisol Baseline Cortisol 30 Minute Cortisol 60 Minute ACTH Resp to [place] Cortisol Sreekanth Time 1 Cortisol Sreekanth Time 2 Cortisol Sreekanth Time 3 ACTH Comment 01/22/21 01/22/21 01/23/21 16:50 20:10 05:13 WBC RBC Hgb Hct MCV MCH MCHC RDW Plt Count MPV Immature Gran % (Auto) Neut % (Auto) Lymph % (Auto) [place] % (Auto) Eos % (Auto) Baso % (Auto) Lymph # (Auto) [place] # (Auto) Eos # (Auto) Baso # (Auto) Abs Immat Gran (auto) Absolute Neuts (auto) Absolute Nucleated RBC Nucleated RBC % (auto) Smear Tech's Comments PT INR D-Dimer O2 Saturation ABG pH at Pt Temp ABG pH (Temp Correct) ABG pCO2 at Pt Temp ABG pCO2 (Temp Corrct ABG pO2 at Pt Temp ABG pO2 (Temp Correct ABG HCO3 ABG Base Excess (Actual) Sodium Potassium Chloride Carbon Dioxide Anion Gap BUN Creatinine Estim Creat Clear Calc Estimated GFR POC Glucose 126 H 113 121 H Random Glucose Fasting Glucose Estimat Average Glucose Hemoglobin A1c % Calcium Phosphorus Magnesium Total Bilirubin AST ALT Alkaline Phosphatase Troponin I High Sens Total Protein Albumin Cortisol Baseline Cortisol 30 Minute Cortisol 60 Minute ACTH Resp to [place] Cortisol Sreekanth Time 1 Cortisol Sreekanth Time 2 Cortisol Sreekanth Time 3 ACTH Comment 01/23/21 01/23/21 01/23/21 07:49 12:01 16:52 WBC RBC Hgb Hct MCV MCH MCHC RDW Plt Count MPV Immature Gran % (Auto) Neut % (Auto) Lymph % (Auto) [place] % (Auto) Eos % (Auto) Baso % (Auto) Lymph # (Auto) [place] # (Auto) Eos # (Auto) Baso # (Auto) Abs Immat Gran (auto) Absolute Neuts (auto) Absolute Nucleated RBC Nucleated RBC % (auto) Smear Tech's Comments PT INR D-Dimer O2 Saturation ABG pH at Pt Temp ABG pH (Temp Correct) ABG pCO2 at Pt Temp ABG pCO2 (Temp Corrct ABG pO2 at Pt Temp ABG pO2 (Temp Correct ABG HCO3 ABG Base Excess (Actual) Sodium 133 L Potassium 4.6 Chloride 96 Carbon Dioxide 31 H Anion Gap 11 L BUN 20 H Creatinine 0.83 Estim Creat Clear Calc 51.9 Estimated GFR > 60 POC Glucose 122 H 137 H Random Glucose Fasting Glucose 125 H D Estimat Average Glucose Hemoglobin A1c % Calcium 8.7 Phosphorus Magnesium Total Bilirubin 0.2 AST 27 ALT 45 H Alkaline Phosphatase 154 H Troponin I High Sens Total Protein 6.1 L Albumin 2.8 L Cortisol Baseline Cortisol 30 Minute Cortisol 60 Minute ACTH Resp to [place] Cortisol Sreekanth Time 1 Cortisol Sreekanth Time 2 Cortisol Sreekanth Time 3 ACTH Comment 01/23/21 01/24/21 01/24/21 21:10 05:26 16:40 WBC RBC Hgb Hct MCV MCH MCHC RDW Plt Count MPV Immature Gran % (Auto) Neut % (Auto) Lymph % (Auto) [place] % (Auto) Eos % (Auto) Baso % (Auto) Lymph # (Auto) [place] # (Auto) Eos # (Auto) Baso # (Auto) Abs Immat Gran (auto) Absolute Neuts (auto) Absolute Nucleated RBC Nucleated RBC % (auto) Smear Tech's Comments PT INR D-Dimer O2 Saturation ABG pH at Pt Temp ABG pH (Temp Correct) ABG pCO2 at Pt Temp ABG pCO2 (Temp Corrct ABG pO2 at Pt Temp ABG pO2 (Temp Correct ABG HCO3 ABG Base Excess (Actual) Sodium Potassium Chloride Carbon Dioxide Anion Gap BUN Creatinine Estim Creat Clear Calc Estimated GFR POC Glucose 114 117 H 107 Random Glucose Fasting Glucose Estimat Average Glucose Hemoglobin A1c % Calcium Phosphorus Magnesium Total Bilirubin AST ALT Alkaline Phosphatase Troponin I High Sens Total Protein Albumin Cortisol Baseline Cortisol 30 Minute Cortisol 60 Minute ACTH Resp to [place] Cortisol Sreekanth Time 1 Cortisol Sreekanth Time 2 Cortisol Sreekanth Time 3 ACTH Comment 01/25/21 01/25/21 01/25/21 05:25 12:11 16:47 WBC RBC Hgb Hct MCV MCH MCHC RDW Plt Count MPV Immature Gran % (Auto) Neut % (Auto) Lymph % (Auto) [place] % (Auto) Eos % (Auto) Baso % (Auto) Lymph # (Auto) [place] # (Auto) Eos # (Auto) Baso # (Auto) Abs Immat Gran (auto) Absolute Neuts (auto) Absolute Nucleated RBC Nucleated RBC % (auto) Smear Tech's Comments PT INR D-Dimer O2 Saturation ABG pH at Pt Temp ABG pH (Temp Correct) ABG pCO2 at Pt Temp ABG pCO2 (Temp Corrct ABG pO2 at Pt Temp ABG pO2 (Temp Correct ABG HCO3 ABG Base Excess (Actual) Sodium Potassium Chloride Carbon Dioxide Anion Gap BUN Creatinine Estim Creat Clear Calc Estimated GFR POC Glucose 90 155 H 145 H Random Glucose Fasting Glucose Estimat Average Glucose Hemoglobin A1c % Calcium Phosphorus Magnesium Total Bilirubin AST ALT Alkaline Phosphatase Troponin I High Sens Total Protein Albumin Cortisol Baseline Cortisol 30 Minute Cortisol 60 Minute ACTH Resp to [place] Cortisol Sreekanth Time 1 Cortisol Sreekanth Time 2 Cortisol Sreekanth Time 3 ACTH Comment 01/25/21 01/26/21 01/26/21 19:59 05:53 16:28 WBC RBC Hgb Hct MCV MCH MCHC RDW Plt Count MPV Immature Gran % (Auto) Neut % (Auto) Lymph % (Auto) [place] % (Auto) Eos % (Auto) Baso % (Auto) Lymph # (Auto) [place] # (Auto) Eos # (Auto) Baso # (Auto) Abs Immat Gran (auto) Absolute Neuts (auto) Absolute Nucleated RBC Nucleated RBC % (auto) Smear Tech's Comments PT INR D-Dimer O2 Saturation ABG pH at Pt Temp ABG pH (Temp Correct) ABG pCO2 at Pt Temp ABG pCO2 (Temp Corrct ABG pO2 at Pt Temp ABG pO2 (Temp Correct ABG HCO3 ABG Base Excess (Actual) Sodium Potassium Chloride Carbon Dioxide Anion Gap BUN Creatinine Estim Creat Clear Calc Estimated GFR POC Glucose 84 124 H 123 H Random Glucose Fasting Glucose Estimat Average Glucose Hemoglobin A1c % Calcium Phosphorus Magnesium Total Bilirubin AST ALT Alkaline Phosphatase Troponin I High Sens Total Protein Albumin Cortisol Baseline Cortisol 30 Minute Cortisol 60 Minute ACTH Resp to [place] Cortisol Sreekanth Time 1 Cortisol Sreekanth Time 2 Cortisol Sreekanth Time 3 ACTH Comment 01/27/21 01/27/21 01/27/21 05:28 16:38 21:43 WBC RBC Hgb Hct MCV MCH MCHC RDW Plt Count MPV Immature Gran % (Auto) Neut % (Auto) Lymph % (Auto) [place] % (Auto) Eos % (Auto) Baso % (Auto) Lymph # (Auto) [place] # (Auto) Eos # (Auto) Baso # (Auto) Abs Immat Gran (auto) Absolute Neuts (auto) Absolute Nucleated RBC Nucleated RBC % (auto) Smear Tech's Comments PT INR D-Dimer O2 Saturation ABG pH at Pt Temp ABG pH (Temp Correct) ABG pCO2 at Pt Temp ABG pCO2 (Temp Corrct ABG pO2 at Pt Temp ABG pO2 (Temp Correct ABG HCO3 ABG Base Excess (Actual) Sodium Potassium Chloride Carbon Dioxide Anion Gap BUN Creatinine Estim Creat Clear Calc Estimated GFR POC Glucose 93 127 H 103 Random Glucose Fasting Glucose Estimat Average Glucose Hemoglobin A1c % Calcium Phosphorus Magnesium Total Bilirubin AST ALT Alkaline Phosphatase Troponin I High Sens Total Protein Albumin Cortisol Baseline Cortisol 30 Minute Cortisol 60 Minute ACTH Resp to [place] Cortisol Sreekanth Time 1 Cortisol Sreekanth Time 2 Cortisol Sreekanth Time 3 ACTH Comment 01/28/21 01/28/21 01/28/21 05:56 08:19 16:13 WBC RBC Hgb Hct MCV MCH MCHC RDW Plt Count MPV Immature Gran % (Auto) Neut % (Auto) Lymph % (Auto) [place] % (Auto) Eos % (Auto) Baso % (Auto) Lymph # (Auto) [place] # (Auto) Eos # (Auto) Baso # (Auto) Abs Immat Gran (auto) Absolute Neuts (auto) Absolute Nucleated RBC Nucleated RBC % (auto) Smear Tech's Comments PT INR D-Dimer O2 Saturation ABG pH at Pt Temp ABG pH (Temp Correct) ABG pCO2 at Pt Temp ABG pCO2 (Temp Corrct ABG pO2 at Pt Temp ABG pO2 (Temp Correct ABG HCO3 ABG Base Excess (Actual) Sodium 136 Potassium 4.7 Chloride 99 Carbon Dioxide 33 H Anion Gap 9 L BUN 22 H Creatinine 0.86 Estim Creat Clear Calc 50.1 Estimated GFR > 60 POC Glucose 117 H 142 H Random Glucose Fasting Glucose 128 H Estimat Average Glucose Hemoglobin A1c % Calcium 8.6 Phosphorus Magnesium Total Bilirubin 0.4 AST 26 ALT 38 Alkaline Phosphatase 137 H Troponin I High Sens Total Protein 5.9 L Albumin 2.7 L Cortisol Baseline Cortisol 30 Minute Cortisol 60 Minute ACTH Resp to [place] Cortisol Sreekanth Time 1 Cortisol Sreekanth Time 2 Cortisol Sreekanth Time 3 ACTH Comment 01/28/21 01/29/21 01/29/21 19:51 06:42 13:57 WBC RBC Hgb Hct MCV MCH MCHC RDW Plt Count MPV Immature Gran % (Auto) Neut % (Auto) Lymph % (Auto) [place] % (Auto) Eos % (Auto) Baso % (Auto) Lymph # (Auto) [place] # (Auto) Eos # (Auto) Baso # (Auto) Abs Immat Gran (auto) Absolute Neuts (auto) Absolute Nucleated RBC Nucleated RBC % (auto) Smear Tech's Comments PT INR D-Dimer O2 Saturation ABG pH at Pt Temp ABG pH (Temp Correct) ABG pCO2 at Pt Temp ABG pCO2 (Temp Corrct ABG pO2 at Pt Temp ABG pO2 (Temp Correct ABG HCO3 ABG Base Excess (Actual) Sodium Potassium Chloride Carbon Dioxide Anion Gap BUN Creatinine Estim Creat Clear Calc Estimated GFR POC Glucose 152 H 87 102 Random Glucose Fasting Glucose Estimat Average Glucose Hemoglobin A1c % Calcium Phosphorus Magnesium Total Bilirubin AST ALT Alkaline Phosphatase Troponin I High Sens Total Protein Albumin Cortisol Baseline Cortisol 30 Minute Cortisol 60 Minute ACTH Resp to Cosyntrop Cortisol Sreekanth Time 1 Cortisol Sreekanth Time 2 Cortisol Sreekanth Time 3 ACTH Comment 01/29/21 01/30/21 01/30/21 20:24 06:45 11:58 WBC RBC Hgb Hct MCV MCH MCHC RDW Plt Count MPV Immature Gran % (Auto) Neut % (Auto) Lymph % (Auto) [place] % (Auto) Eos % (Auto) Baso % (Auto) Lymph # (Auto) [place] # (Auto) Eos # (Auto) Baso # (Auto) Abs Immat Gran (auto) Absolute Neuts (auto) Absolute Nucleated RBC Nucleated RBC % (auto) Smear Tech's Comments PT INR D-Dimer O2 Saturation ABG pH at Pt Temp ABG pH (Temp Correct) ABG pCO2 at Pt Temp ABG pCO2 (Temp Corrct ABG pO2 at Pt Temp ABG pO2 (Temp Correct ABG HCO3 ABG Base Excess (Actual) Sodium Potassium Chloride Carbon Dioxide Anion Gap BUN Creatinine Estim Creat Clear Calc Estimated GFR POC Glucose 148 H 126 H 120 H Random Glucose Fasting Glucose Estimat Average Glucose Hemoglobin A1c % Calcium Phosphorus Magnesium Total Bilirubin AST ALT Alkaline Phosphatase Troponin I High Sens Total Protein Albumin Cortisol Baseline Cortisol 30 Minute Cortisol 60 Minute ACTH Resp to Cosyntrop Cortisol Sreekanth Time 1 Cortisol Sreekanth Time 2 Cortisol Sreekanth Time 3 ACTH Comment 01/30/21 01/30/21 01/31/21 16:53 21:01 06:19 WBC RBC Hgb Hct MCV MCH MCHC RDW Plt Count MPV Immature Gran % (Auto) Neut % (Auto) Lymph % (Auto) [place] % (Auto) Eos % (Auto) Baso % (Auto) Lymph # (Auto) [place] # (Auto) Eos # (Auto) Baso # (Auto) Abs Immat Gran (auto) Absolute Neuts (auto) Absolute Nucleated RBC Nucleated RBC % (auto) Smear Tech's Comments PT INR D-Dimer O2 Saturation ABG pH at Pt Temp ABG pH (Temp Correct) ABG pCO2 at Pt Temp ABG pCO2 (Temp Corrct ABG pO2 at Pt Temp ABG pO2 (Temp Correct ABG HCO3 ABG Base Excess (Actual) Sodium Potassium Chloride Carbon Dioxide Anion Gap BUN Creatinine Estim Creat Clear Calc Estimated GFR POC Glucose 113 117 H 123 H Random Glucose Fasting Glucose Estimat Average Glucose Hemoglobin A1c % Calcium Phosphorus Magnesium Total Bilirubin AST ALT Alkaline Phosphatase Troponin I High Sens Total Protein Albumin Cortisol Baseline Cortisol 30 Minute Cortisol 60 Minute ACTH Resp to Cosyntrop Cortisol Sreekanth Time 1 Cortisol Sreekanth Time 2 Cortisol Sreekanth Time 3 ACTH Comment 01/31/21 01/31/21 01/31/21 12:07 16:39 20:56 WBC RBC Hgb Hct MCV MCH MCHC RDW Plt Count MPV Immature Gran % (Auto) Neut % (Auto) Lymph % (Auto) [place] % (Auto) Eos % (Auto) Baso % (Auto) Lymph # (Auto) [place] # (Auto) Eos # (Auto) Baso # (Auto) Abs Immat Gran (auto) Absolute Neuts (auto) Absolute Nucleated RBC Nucleated RBC % (auto) Smear Tech's Comments PT INR D-Dimer O2 Saturation ABG pH at Pt Temp ABG pH (Temp Correct) ABG pCO2 at Pt Temp ABG pCO2 (Temp Corrct ABG pO2 at Pt Temp ABG pO2 (Temp Correct ABG HCO3 ABG Base Excess (Actual) Sodium Potassium Chloride Carbon Dioxide Anion Gap BUN Creatinine Estim Creat Clear Calc Estimated GFR POC Glucose 129 H 112 141 H Random Glucose Fasting Glucose Estimat Average Glucose Hemoglobin A1c % Calcium Phosphorus Magnesium Total Bilirubin AST ALT Alkaline Phosphatase Troponin I High Sens Total Protein Albumin Cortisol Baseline Cortisol 30 Minute Cortisol 60 Minute ACTH Resp to Cosyntrop Cortisol Sreekanth Time 1 Cortisol Sreekanth Time 2 Cortisol Sreekanth Time 3 ACTH Comment 02/01/21 02/01/21 02/01/21 06:23 11:35 16:46 WBC RBC Hgb Hct MCV MCH MCHC RDW Plt Count MPV Immature Gran % (Auto) Neut % (Auto) Lymph % (Auto) [place] % (Auto) Eos % (Auto) Baso % (Auto) Lymph # (Auto) [place] # (Auto) Eos # (Auto) Baso # (Auto) Abs Immat Gran (auto) Absolute Neuts (auto) Absolute Nucleated RBC Nucleated RBC % (auto) Smear Tech's Comments PT INR D-Dimer O2 Saturation ABG pH at Pt Temp ABG pH (Temp Correct) ABG pCO2 at Pt Temp ABG pCO2 (Temp Corrct ABG pO2 at Pt Temp ABG pO2 (Temp Correct ABG HCO3 ABG Base Excess (Actual) Sodium Potassium Chloride Carbon Dioxide Anion Gap BUN Creatinine Estim Creat Clear Calc Estimated GFR POC Glucose 99 95 143 H Random Glucose Fasting Glucose Estimat Average Glucose Hemoglobin A1c % Calcium Phosphorus Magnesium Total Bilirubin AST ALT Alkaline Phosphatase Troponin I High Sens Total Protein Albumin Cortisol Baseline Cortisol 30 Minute Cortisol 60 Minute ACTH Resp to Cosyntrop Cortisol Sreekanth Time 1 Cortisol Sreekanth Time 2 Cortisol Sreekanth Time 3 ACTH Comment 02/01/21 02/02/21 02/02/21 21:31 05:31 12:13 WBC RBC Hgb Hct MCV MCH MCHC RDW Plt Count MPV Immature Gran % (Auto) Neut % (Auto) Lymph % (Auto) [place] % (Auto) Eos % (Auto) Baso % (Auto) Lymph # (Auto) [place] # (Auto) Eos # (Auto) Baso # (Auto) Abs Immat Gran (auto) Absolute Neuts (auto) Absolute Nucleated RBC Nucleated RBC % (auto) Smear Tech's Comments PT INR D-Dimer O2 Saturation ABG pH at Pt Temp ABG pH (Temp Correct) ABG pCO2 at Pt Temp ABG pCO2 (Temp Corrct ABG pO2 at Pt Temp ABG pO2 (Temp Correct ABG HCO3 ABG Base Excess (Actual) Sodium Potassium Chloride Carbon Dioxide Anion Gap BUN Creatinine Estim Creat Clear Calc Estimated GFR POC Glucose 129 H 130 H 132 H Random Glucose Fasting Glucose Estimat Average Glucose Hemoglobin A1c % Calcium Phosphorus Magnesium Total Bilirubin AST ALT Alkaline Phosphatase Troponin I High Sens Total Protein Albumin Cortisol Baseline Cortisol 30 Minute Cortisol 60 Minute ACTH Resp to Cosyntrop Cortisol Sreekanth Time 1 Cortisol Sreekanth Time 2 Cortisol Sreekanth Time 3 ACTH Comment 02/02/21 02/02/21 02/03/21 16:33 21:32 05:34 WBC RBC Hgb Hct MCV MCH MCHC RDW Plt Count MPV Immature Gran % (Auto) Neut % (Auto) Lymph % (Auto) [place] % (Auto) Eos % (Auto) Baso % (Auto) Lymph # (Auto) [place] # (Auto) Eos # (Auto) Baso # (Auto) Abs Immat Gran (auto) Absolute Neuts (auto) Absolute Nucleated RBC Nucleated RBC % (auto) Smear Tech's Comments PT INR D-Dimer O2 Saturation ABG pH at Pt Temp ABG pH (Temp Correct) ABG pCO2 at Pt Temp ABG pCO2 (Temp Corrct ABG pO2 at Pt Temp ABG pO2 (Temp Correct ABG HCO3 ABG Base Excess (Actual) Sodium Potassium Chloride Carbon Dioxide Anion Gap BUN Creatinine Estim Creat Clear Calc Estimated GFR POC Glucose 139 H 130 H 85 Random Glucose Fasting Glucose Estimat Average Glucose Hemoglobin A1c % Calcium Phosphorus Magnesium Total Bilirubin AST ALT Alkaline Phosphatase Troponin I High Sens Total Protein Albumin Cortisol Baseline Cortisol 30 Minute Cortisol 60 Minute ACTH Resp to Cosyntrop Cortisol Sreekanth Time 1 Cortisol Sreekanth Time 2 Cortisol Sreekanth Time 3 ACTH Comment Assessment and Plan Assessment Anesthesia Assessment: Anesthesia Plan Discussed and Chart Reviewed Final Anesthetic Review NPO: Yes ASA Class: III Final Preanesthetic Review: No Changes in Pt Med Stat and Consent Obtained/Reviewed Patient Risk: Intermediate Procedure Risk: Intermediate Anesthetic Plan Anesthetic Plan: GA Disposition: Standard PACU
--- NOTE | 2021-02-03 07:38 | P.PCN_ITS ---
ECT Procedure Note Diagnosis/Treatment Date of Service: 02/03/21 Diagnosis: Bipolar disorder Current Treatment Number: 7 Treatment: Series Interval Clinical Notes: remains flat depressed some improvement no c/o side ef fects ECT Settings Device: THYMATRON DGx Program/Pulse Width: 0.25 Energy Percent: 100 Seizure Duration By EEG (in seconds): 50 Medications Administration General Anesthetic: Etomidate (10) Muscle Relaxant: Succinylcholine (100) Ancillary Medications Miscillaneous Medications: Propofol Airway Management Airway Management: Bag Mask Ventilation Treatment Recommendations No Changes Recommended: No change Pt Tolerated Procedure w/o Issue: Yes
[2021-02-03] MEDS: Clotrimazole 1 % Cream 15 GM TUBE 1 APPL TOPICAL ×2 (09:10→19:56)
[2021-02-03] MEDS: Budesonide 180 MCG AER.POW.BA 2 PUFF INHALE ×2 (09:10→19:56)
[2021-02-03] MEDS: FLUoxetine HCl Oral Solution 20 MG/5 ML SOLUTION 7.5 MG PO (09:10)
[2021-02-03] MEDS: Thiamine HCL 100 MG TABLET G-TUBE (09:11)
[2021-02-03] MEDS: Famotidine 20 MG TABLET G-TUBE (09:11)
[2021-02-03] MEDS: LORazepam 0.5 MG TABLET PO ×3 (09:11→16:55)
[2021-02-03] MEDS: Amphetamine Mixed Salts 10 MG TABLET 5 MG G-TUBE ×2 (09:11→13:11)
[2021-02-03] MEDS: Nystatin Oral Susp 500,000 UNIT/5 ML ORAL.SUSP 400000 UNIT PO ×4 (09:11→19:58)
[2021-02-03] MEDS: Hydrocortisone 10 MG TABLET PO (09:12)
[2021-02-03] MEDS: Hydrocortisone 10 MG TABLET 5 MG PO (13:11)
[2021-02-03 13:27] LABS: Glucose, Whole Blood 129 mg/dL (60-115)
--- NOTE | 2021-02-03 14:41 | MHC.CLN ---
Addendum entered by Lori Tran RD 02/05/21 14:33: CORRECTION OSMOLITE 1.5 AT MAX GOAL RATE 100CC/HR X 12 HRS Original Note: F/U PT CURRENTLY RECEIVING OSMOLITE 1.5 AT MAX GOAL RATE 50CC/HR CONTINUOUS FROM 9AM-9PM PROVIDES 1800KCALS (35KCALS/KG), 75G PROTEIN (1.5G/KG), 914CC FREE WATER FROM FORMULA. TF MEETS 100% RDI FLUID RESTRICTION 1L PER DAY 01/22/21 PER NEPHROLOGY DISCUSSED WITH IN PREPARATION FOR UPCOMING ECT TREATMENTS FOLLOWING
[2021-02-03 17:05] LABS: Glucose, Whole Blood 144 mg/dL (60-115)
[2021-02-03 19:54] LABS: Glucose, Whole Blood 138 mg/dL (60-115)
[2021-02-03] MEDS: Hydrocortisone 10 MG TABLET 2.5 MG PO (19:57)
[2021-02-03] MEDS: Mirtazapine 7.5 MG TABLET G-TUBE (19:57)
--- NOTE | 2021-02-03 20:39 | HO.PSYCHPN ---
Subjective Subjective Date of Service: 02/03/21 Reason For Visit: severe depression Subjective Notes: Conditional Voluntary Guardianship: No Medical Problems Affecting Mental Status: Yes Interim History: PT Tolerated ECT on new feeding schedule Medication Compliance: Yes Mental Status Exam Mental Status Exam Patient Appearance: Appropriate Patient Orientation: Person, Place, Time and Situation Level of Consciousness: Awake Patient Behavior: Appropriate and Passive Mood Description: Depressed, Flat and Apprehensive Affect Description: Depressed and Anxious Patient Cognition Impaired: No Ability to Follow Directions: Good Speech Pattern: Clear, Impoverished and Monotone Memory Description: Intact Judgement: Fair Judgement and Insight: responds to encouragement and information/education around getting OOB and building strength Diagnostics Vital Signs (24Hr): Vital Signs - 24 hr 02/03/21 05:45 02/03/21 05:50 02/03/21 05:52 Temperature 97.2 F 97.2 F 97.2 F Pulse Rate 70 70 70 Respiratory Rate 22 H 22 H 22 H Blood Pressure 122/70 122/70 122/70 Pulse Oximetry 96 96 96 02/03/21 06:27 02/03/21 07:32 02/03/21 07:37 Temperature 98.6 F 97.2 F Pulse Rate 73 78 85 Respiratory Rate 18 16 18 Blood Pressure 130/85 137/80 130/83 Pulse Oximetry 97 100 98 02/03/21 07:42 02/03/21 07:47 02/03/21 08:02 Temperature Pulse Rate 87 90 90 Respiratory Rate 20 18 20 Blood Pressure 139/88 139/88 138/89 Pulse Oximetry 98 95 96 Body Mass Index 17.5 Labs Results: 01/15/21 14:51 01/28/21 08:19 Labs: Laboratory Results - last 48 hr 02/01/21 02/02/21 02/02/21 21:31 05:31 12:13 POC Glucose 129 H 130 H 132 H 02/02/21 02/02/21 02/03/21 16:33 21:32 05:34 POC Glucose 139 H 130 H 85 02/03/21 02/03/21 02/03/21 13:14 16:48 19:48 POC Glucose 129 H 144 H 138 H Imaging Radiology Impressions: ITS Impressions Modified Barium Swallow 01/07/21 14:15 IMPRESSION: Laryngeal penetration and occasional aspiration as described above. Please refer to speech pathology report for details. Chest X-Ray 01/10/21 09:11 IMPRESSION: Severe chronic interstitial lung disease. No evidence of acute superimposed pneumonitis. Medications Medications Current Medications Generic Name Dose Route Start Last Admin Trade Name Freq PRN Reason Stop Dose Admin Acetaminophen 650 mg 01/09/21 15:51 02/01/21 09:10 Acetaminophen 325 Mg Tablet G-TUBE 650 mg Q4H PRN Administration Pain, Mild (Pain Scale 1-3) Al Hydroxide/Mg Hydroxide 30 ml 01/08/21 15:46 Magnesium Hydrox/Alum Hydrox 30 Ml Oral.Susp G-TUBE Q4H PRN Dyspepsia Amphetamine/Dextroamphetamine 5 mg 02/01/21 13:00 02/03/21 13:11 Amphetamine Mixed Salts 10 Mg Tablet G-TUBE 5 mg BID@0800,1300 DOMINICK Administration Budesonide 2 puff 12/31/20 20:00 02/03/21 19:56 Budesonide 180 Mcg Aer.Pow.Ba INHALE 2 puff RBID DOMINICK Administration Clotrimazole 1 appl 01/06/21 21:00 02/03/21 19:56 Clotrimazole 1 % Cream 15 Gm Tube TOPICAL 1 appl BID DOMINICK Administration Protocol Famotidine 20 mg 01/09/21 09:00 02/03/21 09:11 Famotidine 20 Mg Tablet G-TUBE 20 mg DAILY DOMINICK Administration Fluoxetine HCl 7.5 mg 02/02/21 09:00 02/03/21 09:10 Fluoxetine Hcl Oral Solution 20 Mg/5 Ml Solution PO 7.5 mg DAILY DOMINICK Administration Hydrocortisone 2.5 mg 01/23/21 19:00 02/03/21 19:57 Hydrocortisone 10 Mg Tablet PO 2.5 mg DAILY@1900 DOMINICK Administration Hydrocortisone 5 mg 01/23/21 13:00 02/03/21 13:11 Hydrocortisone 10 Mg Tablet PO 5 mg DAILY@1300 DOMINICK Administration Hydrocortisone 10 mg 01/28/21 08:00 02/03/21 09:12 Hydrocortisone 10 Mg Tablet PO 10 mg DAILY@0800 DOMINICK Administration Lorazepam 0.5 mg 02/01/21 16:43 02/03/21 16:55 Lorazepam 0.5 Mg Tablet PO 0.5 mg Q4H PRN Administration anxiety/restlessness Mirtazapine 7.5 mg 01/14/21 21:00 02/03/21 19:57 Mirtazapine 7.5 Mg Tablet G-TUBE 7.5 mg BEDTIME DOMINICK Administration Nystatin 400,000 unit 01/15/21 17:00 02/03/21 19:58 Nystatin Oral Susp 500,000 Unit/5 Ml Oral.Susp PO 400,000 unit QID DOMINICK Administration Protocol Omeprazole 40 mg 01/08/21 16:30 02/03/21 16:24 Omeprazole 20 Mg/10 Ml Susp.Recon G-TUBE 40 mg BID@0630,1630 DOMINICK Administration Prochlorperazine Edisylate 5 mg 12/31/20 23:21 01/06/21 09:42 Prochlorperazine Edisylate 10 Mg/2 Ml Vial IM 5 mg Q6H PRN Administration Nausea and Vomiting Thiamine HCl 100 mg 01/09/21 09:00 02/03/21 09:11 Thiamine Hcl 100 Mg Tablet G-TUBE 100 mg DAILY DOMINICK Administration Allergies Allergies Allergy/AdvReac Type Severity Reaction Status Date / Time Sulfa (Sulfonamide Allergy Unknown UNKNOWN Verified 12/01/20 09:47 Antibiotics) [SULFA (SULFONAMIDE ANTIBIOTICS)] zoster vaccine live Allergy Hives Verified 12/01/20 09:47 Assessment & Plan Assessment & Plan (1) Dysphagia: Qualifiers: Dysphagia type: unspecified Qualified Code(s): R13.10 - Dysphagia, unspecified Status: Acute Code(s): R13.10 - Dysphagia, unspecified (2) Pulmonary fibrosis: Status: Acute Code(s): J84.10 - Pulmonary fibrosis, unspecified (3) Chronic respiratory failure: Qualifiers: Respiratory failure complication: hypoxia Qualified Code(s): J96.11 - Chronic respiratory failure with hypoxia Status: Acute Code(s): J96.10 - Chronic respiratory failure, unspecified whether with hypoxia or hypercapnia (4) Bipolar I disorder with depression, severe: Status: Acute Code(s): F31.4 - Bipolar disorder, current episode depressed, severe, without psychotic features (5) Severe protein-calorie malnutrition: Status: Acute Code(s): E43 - Unspecified severe protein-calorie malnutrition Assessment and Plan: Continue per treatment team: IMPRESSION:bipolar depression cont ECT,PROZAC, ADDERALL and monitor for adverse effects Prozac to 7.5 mg daily Adderall 5 mg b.i.d. continue PEG feedings continue ECT as tolerated tolerated ECT today Encourage OOB when able encourage walking Protein calorie malnutrition Continue PEG feedings Pulmonary fibrosis aspiration continue NPO cont hydrocortizone Greater than 50% of the session was spent on counseling and/or coordination of care Reason for contiued inpatient stay Substantial Risk for: inability to function, rapid decompensation and med/psych decompensation
[2021-02-04 05:49] LABS: Glucose, Whole Blood 87 mg/dL (60-115)
[2021-02-04 06:54] VITALS: BP 104/63; PULSE 67; RESP 18; TEMP 36.3; O2SAT 95
[2021-02-04] MEDS: Amphetamine Mixed Salts 10 MG TABLET 5 MG G-TUBE ×2 (08:29→12:52)
[2021-02-04] MEDS: Famotidine 20 MG TABLET G-TUBE (08:30)
[2021-02-04] MEDS: LORazepam 0.5 MG TABLET PO ×3 (08:30→18:32)
[2021-02-04] MEDS: Nystatin Oral Susp 500,000 UNIT/5 ML ORAL.SUSP 400000 UNIT PO (08:31)
[2021-02-04] MEDS: Thiamine HCL 100 MG TABLET G-TUBE (08:31)
[2021-02-04] MEDS: Hydrocortisone 10 MG TABLET PO (08:31)
[2021-02-04] MEDS: FLUoxetine HCl Oral Solution 20 MG/5 ML SOLUTION 7.5 MG PO (08:32)
[2021-02-04] MEDS: Budesonide 180 MCG AER.POW.BA 2 PUFF INHALE ×2 (08:33→20:09)
[2021-02-04] MEDS: Clotrimazole 1 % Cream 15 GM TUBE 1 APPL TOPICAL ×2 (08:33→20:08)
[2021-02-04 09:54] LABS: Alanine Aminotransferase 37 U/L (0-40); Albumin Level 2.8 g/dL (3.5-5.0); Alkaline Phosphatase 140 U/L (39-117); Anion Gap 12 (12-20); Aspartate Amino Transferase 30 U/L (5-37); Bilirubin Total 0.3 mg/dL (0.0-1.0); Blood Urea Nitrogen 20 mg/dL (9-16); Calcium 8.8 mg/dL (8.4-10.2); Carbon Dioxide 28 mmol/L (22-29); Chloride 99 mmol/L (96-108); Creatinine Clr Calc Pharmacy 53.8; Estimated Glomerular Filt Rate > 60; Glucose Fasting 89 mg/dL (60-99); Potassium 4.8 mmol/L (3.3-5.1); Sodium 134 mmol/L (135-145); Total Protein 6.5 g/dL (6.5-8.0)
[2021-02-04 12:45] VITALS: BMI 17.2
[2021-02-04] MEDS: Hydrocortisone 10 MG TABLET 5 MG PO (12:51)
[2021-02-04 14:27] LABS: Glucose, Whole Blood 156 mg/dL (60-115)
[2021-02-04 16:55] LABS: Glucose, Whole Blood 162 mg/dL (60-115)
--- NOTE | 2021-02-04 17:17 | HO.PM.IMPN ---
Subjective Subjective Date of Service: 02/04/21 Interval History: no sob, c/o sore throat Cardiovascular Cardiovascular: Reports no additional cardiovascular complaints Gastrointestinal Gastrointestinal: Reports no additional gastrointestinal complaints Physical Exam Vital Signs: Vital Signs: Last Vital Signs Temp 97.4 F 02/04/21 06:54 Pulse 67 02/04/21 06:54 Resp 18 02/04/21 06:54 BP 104/63 02/04/21 06:54 Pulse Ox 95 02/04/21 06:54 Body Mass Index 17.2 General: AO X 3, no acute distress throat: thrush at back of tongue Resp: Crackles CVS: S1,S2,RRR GI: soft, non tender, non distended Neuro: motor grossly intact Psych: appropriate affect Objective Data Current Medications Generic Name Dose Route Start Last Admin Trade Name Freq PRN Reason Stop Dose Admin Acetaminophen 650 mg 01/09/21 15:51 02/01/21 09:10 Acetaminophen 325 Mg Tablet G-TUBE 650 mg Q4H PRN Administration Pain, Mild (Pain Scale 1-3) Al Hydroxide/Mg Hydroxide 30 ml 01/08/21 15:46 Magnesium Hydrox/Alum Hydrox 30 Ml Oral.Susp G-TUBE Q4H PRN Dyspepsia Amphetamine/Dextroamphetamine 5 mg 02/01/21 13:00 02/04/21 12:52 Amphetamine Mixed Salts 10 Mg Tablet G-TUBE 5 mg BID@0800,1300 DOMINICK Administration Budesonide 2 puff 12/31/20 20:00 02/04/21 08:33 Budesonide 180 Mcg Aer.Pow.Ba INHALE 2 puff RBID DOMINICK Administration Clotrimazole 1 appl 01/06/21 21:00 02/04/21 08:33 Clotrimazole 1 % Cream 15 Gm Tube TOPICAL 1 appl BID DOMINICK Administration Protocol Famotidine 20 mg 01/09/21 09:00 02/04/21 08:30 Famotidine 20 Mg Tablet G-TUBE 20 mg DAILY DOMINICK Administration Fluconazole 100 mg 02/04/21 17:30 Fluconazole 100 Mg Tablet G-TUBE DAILY DOMINICK Fluoxetine HCl 7.5 mg 02/02/21 09:00 02/04/21 08:32 Fluoxetine Hcl Oral Solution 20 Mg/5 Ml Solution PO 7.5 mg DAILY DOMINICK Administration Hydrocortisone 2.5 mg 01/23/21 19:00 02/03/21 19:57 Hydrocortisone 10 Mg Tablet PO 2.5 mg DAILY@1900 DOMINICK Administration Hydrocortisone 5 mg 01/23/21 13:00 02/04/21 12:51 Hydrocortisone 10 Mg Tablet PO 5 mg DAILY@1300 DOMINICK Administration Hydrocortisone 10 mg 01/28/21 08:00 02/04/21 08:31 Hydrocortisone 10 Mg Tablet PO 10 mg DAILY@0800 DOMINICK Administration Lorazepam 0.5 mg 02/01/21 16:43 02/04/21 12:53 Lorazepam 0.5 Mg Tablet PO 0.5 mg Q4H PRN Administration anxiety/restlessness Mirtazapine 7.5 mg 01/14/21 21:00 02/03/21 19:57 Mirtazapine 7.5 Mg Tablet G-TUBE 7.5 mg BEDTIME DOMINICK Administration Omeprazole 40 mg 01/08/21 16:30 02/04/21 16:29 Omeprazole 20 Mg/10 Ml Susp.Recon G-TUBE 40 mg BID@0630,1630 DOMINICK Administration Prochlorperazine Edisylate 5 mg 12/31/20 23:21 01/06/21 09:42 Prochlorperazine Edisylate 10 Mg/2 Ml Vial IM 5 mg Q6H PRN Administration Nausea and Vomiting Thiamine HCl 100 mg 01/09/21 09:00 02/04/21 08:31 Thiamine Hcl 100 Mg Tablet G-TUBE 100 mg DAILY DOMINICK Administration Labs CBC & Chem 7: 01/15/21 14:51 02/04/21 08:57 Microbiology Microbiology Results: Microbiology 01/10/21 09:26 Blood - Venous Blood Culture - Final No growth after 5 days. 01/10/21 09:26 Blood - Venous Blood Culture - Final No growth after 5 days. Assessment and Plan (1) Adrenal insufficiency: Status: Acute Assessment and Plan: 80M with adrenal insufficeincy, ILD from chronic aspiration s/p PEG, thrush, had episode of coughing on nystatin this AM thrush can change to diflucan 100mg via g tube for 7 days chronic aspiration continue gtube feeds adrenal insufficiency management per nephrology
[2021-02-04] MEDS: Fluconazole 100 MG TABLET G-TUBE (18:31)
[2021-02-04] MEDS: Hydrocortisone 10 MG TABLET 2.5 MG PO (18:32)
[2021-02-04] MEDS: Mirtazapine 7.5 MG TABLET G-TUBE (20:08)
--- NOTE | 2021-02-04 20:18 | P.PNPSI_ITS ---
Subjective Subjective Date of Service: 02/04/21 Reason For Visit: severe depression Subjective Notes: Conditional Voluntary Healthcare Proxy: Yes Guardianship: No Medical Problems Affecting Mental Status: Yes Interim History: The patient states he feels improved emotionally remains flat states he feels better with ECT difficulty with energy ambition Medication Compliance: Yes Mental Status Exam Mental Status Exam Patient Appearance: Appropriate Patient Orientation: Person, Place, Time and Situation Level of Consciousness: Awake Patient Behavior: Appropriate and Passive Mood Description: Depressed, Flat and Apprehensive Affect Description: Depressed and Anxious Patient Cognition Impaired: No Ability to Follow Directions: Good Speech Pattern: Clear, Impoverished and Monotone Memory Description: Intact Judgement: Fair Judgement and Insight: responds to encouragement and information/education arou nd getting OOB and building strength Diagnostics Vital Signs (24Hr): Vital Signs - 24 hr 02/03/21 21:32 02/04/21 06:54 Temperature 97.8 F 97.4 F Pulse Rate 77 67 Respiratory Rate 20 18 Blood Pressure 109/70 104/63 Pulse Oximetry 95 95 Body Mass Index 17.2 Labs Results: 01/15/21 14:51 02/04/21 08:57 Labs: Laboratory Results - last 48 hr 02/02/21 02/03/21 02/03/21 21:32 05:34 13:14 Sodium Potassium Chloride Carbon Dioxide Anion Gap BUN Creatinine Estim Creat Clear Calc Estimated GFR POC Glucose 130 H 85 129 H Fasting Glucose Calcium Total Bilirubin AST ALT Alkaline Phosphatase Total Protein Albumin 02/03/21 02/03/21 02/04/21 16:48 19:48 05:28 Sodium Potassium Chloride Carbon Dioxide Anion Gap BUN Creatinine Estim Creat Clear Calc Estimated GFR POC Glucose 144 H 138 H 87 Fasting Glucose Calcium Total Bilirubin AST ALT Alkaline Phosphatase Total Protein Albumin 02/04/21 02/04/21 02/04/21 08:57 13:55 16:33 Sodium 134 L Potassium 4.8 Chloride 99 Carbon Dioxide 28 Anion Gap 12 BUN 20 H Creatinine 0.80 Estim Creat Clear Calc 53.8 Estimated GFR > 60 POC Glucose 156 H 162 H Fasting Glucose 89 Calcium 8.8 Total Bilirubin 0.3 AST 30 ALT 37 Alkaline Phosphatase 140 H Total Protein 6.5 Albumin 2.8 L Imaging Radiology Impressions: ITS Impressions Modified Barium Swallow 01/07/21 14:15 IMPRESSION: Laryngeal penetration and occasional aspiration as described above. Please refer to speech pathology report for details. Chest X-Ray 01/10/21 09:11 IMPRESSION: Severe chronic interstitial lung disease. No evidence of acute superimposed pneumonitis. Medications Medications Current Medications Generic Name Dose Route Start Last Admin Trade Name Frececelia PRN Reason Stop Dose Admin Acetaminophen 650 mg 01/09/21 15:51 02/01/21 09:10 Acetaminophen 325 Mg Tablet G-TUBE 650 mg Q4H PRN Administration Pain, Mild (Pain Scale 1-3) Al Hydroxide/Mg Hydroxide 30 ml 01/08/21 15:46 Magnesium Hydrox/Alum Hydrox 30 Ml Oral.Susp G-TUBE Q4H PRN Dyspepsia Amphetamine/Dextroamphetamine 5 mg 02/01/21 13:00 02/04/21 12:52 Amphetamine Mixed Salts 10 Mg Tablet G-TUBE 5 mg BID@0800,1300 DOMINICK Administration Budesonide 2 puff 12/31/20 20:00 02/04/21 20:09 Budesonide 180 Mcg Aer.Pow.Ba INHALE 2 puff RBID DOMINICK Administration Clotrimazole 1 appl 01/06/21 21:00 02/04/21 20:08 Clotrimazole 1 % Cream 15 Gm Tube TOPICAL 1 appl BID DOMINICK Administration Protocol Famotidine 20 mg 01/09/21 09:00 02/04/21 08:30 Famotidine 20 Mg Tablet G-TUBE 20 mg DAILY DOMINICK Administration Fluconazole 100 mg 02/04/21 18:00 02/04/21 18:31 Fluconazole 100 Mg Tablet G-TUBE 100 mg DAILY DOMINICK Administration Fluoxetine HCl 7.5 mg 02/02/21 09:00 02/04/21 08:32 Fluoxetine Hcl Oral Solution 20 Mg/5 Ml Solution PO 7.5 mg DAILY DOMINICK Administration Hydrocortisone 2.5 mg 01/23/21 19:00 02/04/21 18:32 Hydrocortisone 10 Mg Tablet PO 2.5 mg DAILY@1900 DOMINICK Administration Hydrocortisone 5 mg 01/23/21 13:00 02/04/21 12:51 Hydrocortisone 10 Mg Tablet PO 5 mg DAILY@1300 DOMINICK Administration Hydrocortisone 10 mg 01/28/21 08:00 02/04/21 08:31 Hydrocortisone 10 Mg Tablet PO 10 mg DAILY@0800 DOMINICK Administration Lorazepam 0.5 mg 02/01/21 16:43 02/04/21 18:32 Lorazepam 0.5 Mg Tablet PO 0.5 mg Q4H PRN Administration anxiety/restlessness Mirtazapine 7.5 mg 01/14/21 21:00 02/04/21 20:08 Mirtazapine 7.5 Mg Tablet G-TUBE 7.5 mg BEDTIME DOMINICK Administration Omeprazole 40 mg 01/08/21 16:30 02/04/21 16:29 Omeprazole 20 Mg/10 Ml Susp.Recon G-TUBE 40 mg BID@0630,1630 DOMINICK Administration Prochlorperazine Edisylate 5 mg 12/31/20 23:21 01/06/21 09:42 Prochlorperazine Edisylate 10 Mg/2 Ml Vial IM 5 mg Q6H PRN Administration Nausea and Vomiting Thiamine HCl 100 mg 01/09/21 09:00 02/04/21 08:31 Thiamine Hcl 100 Mg Tablet G-TUBE 100 mg DAILY DOMINICK Administration Allergies Allergies Allergy/AdvReac Type Severity Reaction Status Date / Time Sulfa (Sulfonamide Allergy Unknown UNKNOWN Verified 12/01/20 09:47 Antibiotics) [SULFA (SULFONAMIDE ANTIBIOTICS)] zoster vaccine live Allergy Hives Verified 12/01/20 09:47 Assessment & Plan Assessment & Plan (1) Adrenal insufficiency: Status: Acute Code(s): E27.40 - Unspecified adrenocortical insufficiency (2) Bipolar I disorder with depression, severe: Status: Acute Code(s): F31.4 - Bipolar disorder, current episode depressed, severe, without psychotic features Assessment and Plan: 80M with adrenal insufficeincy, ILD from chronic aspiration s/p PEG, thrush, had episode of coughing on nystatin this AM thrush can change to diflucan 100mg via g tube for 7 days chronic aspiration continue gtube feeds adrenal insufficiency management per nephrology Bipolar depression Continue ECT appears to be helpful continue Prozac Adderall Greater than 50% of the session was spent on counseling and/or coordination of care Reason for contiued inpatient stay Substantial Risk for: inability to function, rapid decompensation and med/psych decompensation
[2021-02-04 20:23] LABS: Glucose, Whole Blood 143 mg/dL (60-115)
[2021-02-04 21:54] VITALS: BP 113/72; PULSE 90; RESP 20; TEMP 36.9
[2021-02-05] VITALS (9 sets, daily range): BP systolic 100–163; BP diastolic 62–81; PULSE 72–87; RESP 16–20; TEMP 36.3–36.7; O2SAT 95–100; BMI 18.4
[2021-02-05 06:53] LABS: Glucose, Whole Blood 84 mg/dL (60-115)
--- NOTE | 2021-02-05 08:57 | P.CONAN_ITS ---
HPI - Anesthesia Eval Consult details Narrative: 80 M for ect PMFSH Active Problems Active Problems: All Active Problems (Updated 01/22/21 @ 13:04 by Nile Quezada MD) Adrenal insufficiency (Acute) Severe protein-calorie malnutrition (Acute) Severe malnutrition (Acute) Chronic respiratory failure (Acute) Hyponatremia (Acute) Dysphagia (Acute) Metabolic encephalopathy (Acute) Pneumonia (Acute) Hypotension (Acute) Swallowing dysfunction (Acute) Increased oxygen demand (Acute) Pulmonary fibrosis (Acute) Bipolar I disorder with depression, severe (Acute) CKD (chronic kidney disease) stage 3, GFR 30-59 ml/min (Acute) Bipolar disorder (Acute) Past Medical History Medical History Anemia Anxiety Bronchiectasis Cerebrovascular disease Chronic hyponatremia Chronic respiratory failure CKD (chronic kidney disease) stage 3, GFR 30-59 ml/min Degenerative arthritis Depression History of electroconvulsive therapy Hx of bladder cancer Hydrocele Pulmonary fibrosis Pulmonary fibrosis Family History Family History Father Colon cancer Family history of problems with anesthesia: No Surgical History Surgical History History of bladder surgery History of Problems with Anesthesia: Yes (N&V) Social History Social History Household Members: Spouse Housing: Apartment Do you presently have visiting nurse or other home services: Yes Unable to assess alcohol history related to: Unable to respond and Unknown Cigarette Packs Per Day: 1 Cigarettes Per Day: 20.0 Years Smoked: 20 Smoked in Last 30 Days: No Patient Interested in Nicotine Replacement: No Patient Given Instructions on How to Stop Smoking: No Second Hand Smoke Exposure: No Use of substances other than those prescribed or required for medical reasons: No Substance Use Type: Marijuana Currently Displaying Signs/Symptoms of Drug Intoxication Withdrawal: No Spiritual Healthcare Practices: none Spiritism Healthcare Practices: none Cultural Healthcare Practices: none Are you DNR?: No Advance Directives: Yes Advance Directives on File: Yes Advance Directives Date on File: 11/27/20 Do you have thoughts of harming others: None Do you have a plan to hurt others: No Plan Recently lost weight without trying: Yes How much weight loss: 2-13 pounds Eating poorly because of decreased appetite: Yes Nutrition screen score: 4 Nutrition Risks: Emaciation/Cachexia Poor oral hygiene: No service: No Current occupational status: retired and disabled Sexual orientation: Straight/Heterosexual Meds Allergies Allergy/AdvReac Type Severity Reaction Status Date / Time Sulfa (Sulfonamide Allergy Unknown UNKNOWN Verified 12/01/20 09:47 Antibiotics) [SULFA (SULFONAMIDE ANTIBIOTICS)] zoster vaccine live Allergy Hives Verified 12/01/20 09:47 Active Medications: Current Medications Generic Name Dose Route Start Last Admin Trade Name Freq PRN Reason Stop Dose Admin Acetaminophen 650 mg 01/09/21 15:51 02/01/21 09:10 Acetaminophen 325 Mg Tablet G-TUBE 650 mg Q4H PRN Administration Pain, Mild (Pain Scale 1-3) Al Hydroxide/Mg Hydroxide 30 ml 01/08/21 15:46 Magnesium Hydrox/Alum Hydrox 30 Ml Oral.Susp G-TUBE Q4H PRN Dyspepsia Amphetamine/Dextroamphetamine 5 mg 02/01/21 13:00 02/04/21 12:52 Amphetamine Mixed Salts 10 Mg Tablet G-TUBE 5 mg BID@0800,1300 DOMINICK Administration Budesonide 2 puff 12/31/20 20:00 02/04/21 20:09 Budesonide 180 Mcg Aer.Pow.Ba INHALE 2 puff RBID DOMINICK Administration Clotrimazole 1 appl 01/06/21 21:00 02/04/21 20:08 Clotrimazole 1 % Cream 15 Gm Tube TOPICAL 1 appl BID DOMINICK Administration Protocol Famotidine 20 mg 01/09/21 09:00 02/04/21 08:30 Famotidine 20 Mg Tablet G-TUBE 20 mg DAILY DOMINICK Administration Fluconazole 100 mg 02/04/21 18:00 02/04/21 18:31 Fluconazole 100 Mg Tablet G-TUBE 100 mg DAILY DOMINICK Administration Fluoxetine HCl 7.5 mg 02/02/21 09:00 02/04/21 08:32 Fluoxetine Hcl Oral Solution 20 Mg/5 Ml Solution PO 7.5 mg DAILY DOMINICK Administration Hydrocortisone 2.5 mg 01/23/21 19:00 02/04/21 18:32 Hydrocortisone 10 Mg Tablet PO 2.5 mg DAILY@1900 DOMINICK Administration Hydrocortisone 5 mg 01/23/21 13:00 02/04/21 12:51 Hydrocortisone 10 Mg Tablet PO 5 mg DAILY@1300 DOMINICK Administration Hydrocortisone 10 mg 01/28/21 08:00 02/04/21 08:31 Hydrocortisone 10 Mg Tablet PO 10 mg DAILY@0800 DOMINICK Administration Lorazepam 0.5 mg 02/01/21 16:43 02/04/21 18:32 Lorazepam 0.5 Mg Tablet PO 0.5 mg Q4H PRN Administration anxiety/restlessness Mirtazapine 7.5 mg 01/14/21 21:00 02/04/21 20:08 Mirtazapine 7.5 Mg Tablet G-TUBE 7.5 mg BEDTIME DOMINICK Administration Omeprazole 40 mg 01/08/21 16:30 02/04/21 16:29 Omeprazole 20 Mg/10 Ml Susp.Recon G-TUBE 40 mg BID@0630,1630 [facility] Administration Prochlorperazine Edisylate 5 mg 12/31/20 23:21 01/06/21 09:42 Prochlorperazine Edisylate 10 Mg/2 Ml Vial IM 5 mg Q6H PRN Administration Nausea and Vomiting Thiamine HCl 100 mg 01/09/21 09:00 02/04/21 08:31 Thiamine Hcl 100 Mg Tablet G-TUBE 100 mg DAILY DOMINICK Administration Home Medications Medication Instructions Recorded Confirmed Last Taken Type Latuda 1 tab PO DAILY 11/25/20 12/31/20 11/25/20 History Ofev 150 mg PO BID 11/25/20 12/31/20 11/25/20 History docusate sodium [Stool Softener] 1 cap PO BID PRN 11/25/20 12/31/20 11/25/20 History lorazepam 1 tab PO BID PRN 11/25/20 12/31/20 11/25/20 History mirtazapine 1 tab PO BEDTIME 11/25/20 12/31/20 11/24/20 History ondansetron 1 tab PO Q8H PRN 11/25/20 12/31/20 Unknown History quetiapine 37.5 mg PO BEDTIME 11/25/20 12/31/20 11/24/20 History Exam Exam Date and Time: February 05, 2021 0857 Height,Weight and Vital Signs: Height 5 ft 7 in Weight 118 lb Last Vital Signs Temp 97.5 F 02/05/21 07:19 Pulse 74 02/05/21 07:19 Resp 16 02/05/21 07:19 BP 120/74 02/05/21 07:19 Pulse Ox 95 02/05/21 07:19 Pertinent Lab Results Pertinent Lab Results: Laboratory Tests 01/01/21 01/05/21 01/08/21 14:34 15:05 07:46 WBC 10.6 RBC 3.17 L Hgb 10.0 L Hct 29.4 L MCV 92.7 MCH 31.5 MCHC 34.0 RDW 15.3 Plt Count 319 MPV 10.7 Immature Gran % (Auto) Neut % (Auto) Lymph % (Auto) [place] % (Auto) Eos % (Auto) Baso % (Auto) Lymph # (Auto) [place] # (Auto) Eos # (Auto) Baso # (Auto) Abs Immat Gran (auto) Absolute Neuts (auto) Absolute Nucleated RBC 0.000 Nucleated RBC % (auto) 0.0 Smear Tech's Comments PT INR D-Dimer O2 Saturation ABG pH at Pt Temp ABG pH (Temp Correct) ABG pCO2 at Pt Temp ABG pCO2 (Temp Corrct ABG pO2 at Pt Temp ABG pO2 (Temp Correct ABG HCO3 ABG Base Excess (Actual) Sodium 132 L 131 L Potassium 5.2 H 5.1 Chloride 97 96 Carbon Dioxide 27 26 Anion Gap 13 14 BUN 25 H Creatinine 1.00 Estim Creat Clear Calc 45.7 Estimated GFR > 60 POC Glucose Random Glucose 145 H D Fasting Glucose Estimat Average Glucose Hemoglobin A1c % Calcium 9.2 Phosphorus Magnesium Total Bilirubin 0.5 AST 36 D ALT 29 Alkaline Phosphatase 137 H D Troponin I High Sens Total Protein 6.7 D Albumin 3.1 L D Cortisol Baseline Cortisol 30 Minute Cortisol 60 Minute ACTH Resp to [facility] Cortisol Sreekanth Time 1 Cortisol Sreekanth Time 2 Cortisol Sreekanth Time 3 ACTH Comment 01/08/21 01/09/21 01/10/21 07:46 07:12 09:26 WBC 18.1 H RBC 3.44 L Hgb 10.9 L Hct 31.8 L MCV 92.4 MCH 31.7 MCHC 34.3 RDW 15.2 Plt Count 347 MPV 10.8 Immature Gran % (Auto) Neut % (Auto) Lymph % (Auto) [place] % (Auto) Eos % (Auto) Baso % (Auto) Lymph # (Auto) [place] # (Auto) Eos # (Auto) Baso # (Auto) Abs Immat Gran (auto) Absolute Neuts (auto) Absolute Nucleated RBC 0.000 Nucleated RBC % (auto) 0.0 Smear Tech's Comments PT 13.5 H INR 1.1 D-Dimer 994 O2 Saturation ABG pH at Pt Temp ABG pH (Temp Correct) ABG pCO2 at Pt Temp ABG pCO2 (Temp Corrct ABG pO2 at Pt Temp ABG pO2 (Temp Correct ABG HCO3 ABG Base Excess (Actual) Sodium Potassium Chloride Carbon Dioxide Anion Gap BUN Creatinine Estim Creat Clear Calc Estimated GFR POC Glucose Random Glucose Fasting Glucose Estimat Average Glucose Hemoglobin A1c % Calcium Phosphorus Magnesium Total Bilirubin AST ALT Alkaline Phosphatase Troponin I High Sens Total Protein Albumin Cortisol Baseline Cortisol 30 Minute Cortisol 60 Minute ACTH Resp to [place] Cortisol Sreekanth Time 1 Cortisol Sreekanth Time 2 Cortisol Sreekanth Time 3 ACTH Comment 01/10/21 01/10/21 01/10/21 09:26 09:26 09:28 WBC 22.2 H RBC 3.38 L Hgb 10.8 L Hct 31.2 L MCV 92.3 MCH 32.0 MCHC 34.6 RDW 15.1 Plt Count 311 MPV 10.4 Immature Gran % (Auto) 0.5 H Neut % (Auto) 84.9 H Lymph % (Auto) 7.4 L [place] % (Auto) 7.1 Eos % (Auto) 0.0 Baso % (Auto) 0.1 Lymph # (Auto) 1.6 [place] # (Auto) 1.6 H Eos # (Auto) 0.0 Baso # (Auto) 0.0 Abs Immat Gran (auto) 0.12 H Absolute Neuts (auto) 18.8 H Absolute Nucleated RBC 0.000 Nucleated RBC % (auto) 0.0 Smear Tech's Comments VERIFIED PT INR D-Dimer O2 Saturation ABG pH at Pt Temp ABG pH (Temp Correct) ABG pCO2 at Pt Temp ABG pCO2 (Temp Corrct ABG pO2 at Pt Temp ABG pO2 (Temp Correct ABG HCO3 ABG Base Excess (Actual) Sodium 130 L Potassium 4.1 Chloride 95 L Carbon Dioxide 31 H Anion Gap 8 L BUN 18 H Creatinine 0.83 Estim Creat Clear Calc 53.1 Estimated GFR > 60 POC Glucose Random Glucose 151 H Fasting Glucose Estimat Average Glucose Hemoglobin A1c % Calcium 8.3 L D Phosphorus Magnesium Total Bilirubin AST ALT Alkaline Phosphatase Troponin I High Sens 14.4 D Total Protein Albumin Cortisol Baseline Cortisol 30 Minute Cortisol 60 Minute ACTH Resp to [place] Cortisol Sreekanth Time 1 Cortisol Sreekanth Time 2 Cortisol Sreekanth Time 3 ACTH Comment 01/10/21 01/13/21 01/15/21 09:49 07:56 14:51 WBC 11.2 H RBC 3.37 L Hgb 10.6 L Hct 31.9 L MCV 94.7 MCH 31.5 MCHC 33.2 RDW 15.5 Plt Count 382 MPV 10.7 Immature Gran % (Auto) 0.5 H Neut % (Auto) 79.8 H Lymph % (Auto) 13.3 L [place] % (Auto) 5.8 Eos % (Auto) 0.4 Baso % (Auto) 0.2 Lymph # (Auto) 1.5 [place] # (Auto) 0.7 Eos # (Auto) 0.1 Baso # (Auto) 0.0 Abs Immat Gran (auto) 0.06 H Absolute Neuts (auto) 8.9 H Absolute Nucleated RBC 0.000 Nucleated RBC % (auto) 0.0 Smear Tech's Comments PT INR D-Dimer O2 Saturation 98.0 ABG pH at Pt Temp 7.49 H ABG pH (Temp Correct) 7.49 H ABG pCO2 at Pt Temp 40 ABG pCO2 (Temp Corrct 40 ABG pO2 at Pt Temp 99 ABG pO2 (Temp Correct 101 ABG HCO3 31 H ABG Base Excess (Actual) 7.4 Sodium 133 L Potassium 4.6 Chloride 95 L Carbon Dioxide 33 H Anion Gap 10 L BUN 18 H Creatinine 0.78 Estim Creat Clear Calc 57.2 Estimated GFR > 60 POC Glucose Random Glucose 132 H Fasting Glucose Estimat Average Glucose Hemoglobin A1c % Calcium 8.5 Phosphorus Magnesium Total Bilirubin 0.4 AST 27 ALT 20 Alkaline Phosphatase 150 H Troponin I High Sens Total Protein 5.9 L Albumin 2.5 L Cortisol Baseline Cortisol 30 Minute Cortisol 60 Minute ACTH Resp to [place] Cortisol Sreekanth Time 1 Cortisol Sreekanth Time 2 Cortisol Sreekanth Time 3 ACTH Comment 01/15/21 01/18/21 01/19/21 14:51 15:36 22:29 WBC RBC Hgb Hct MCV MCH MCHC RDW Plt Count MPV Immature Gran % (Auto) Neut % (Auto) Lymph % (Auto) [place] % (Auto) Eos % (Auto) Baso % (Auto) Lymph # (Auto) [place] # (Auto) Eos # (Auto) Baso # (Auto) Abs Immat Gran (auto) Absolute Neuts (auto) Absolute Nucleated RBC Nucleated RBC % (auto) Smear Tech's Comments PT INR D-Dimer O2 Saturation ABG pH at Pt Temp ABG pH (Temp Correct) ABG pCO2 at Pt Temp ABG pCO2 (Temp Corrct ABG pO2 at Pt Temp ABG pO2 (Temp Correct ABG HCO3 ABG Base Excess (Actual) Sodium 132 L 132 L Potassium 5.1 5.1 Chloride 94 L 95 L Carbon Dioxide 32 H 31 H Anion Gap 11 L 11 L BUN 22 H Creatinine 0.88 Estim Creat Clear Calc 49.0 Estimated GFR > 60 POC Glucose 112 Random Glucose 165 H Fasting Glucose Estimat Average Glucose Hemoglobin A1c % Calcium 8.8 Phosphorus 3.0 Magnesium 2.1 Total Bilirubin 0.3 AST 34 ALT 55 H Alkaline Phosphatase 174 H Troponin I High Sens Total Protein 6.4 L Albumin 2.8 L Cortisol Baseline Cortisol 30 Minute Cortisol 60 Minute ACTH Resp to [place] Cortisol Sreekanth Time 1 Cortisol Sreekanth Time 2 Cortisol Sreekanth Time 3 ACTH Comment 01/20/21 01/20/21 01/20/21 05:55 08:29 12:08 WBC RBC Hgb Hct MCV MCH MCHC RDW Plt Count MPV Immature Gran % (Auto) Neut % (Auto) Lymph % (Auto) [place] % (Auto) Eos % (Auto) Baso % (Auto) Lymph # (Auto) [place] # (Auto) Eos # (Auto) Baso # (Auto) Abs Immat Gran (auto) Absolute Neuts (auto) Absolute Nucleated RBC Nucleated RBC % (auto) Smear Tech's Comments PT INR D-Dimer O2 Saturation ABG pH at Pt Temp ABG pH (Temp Correct) ABG pCO2 at Pt Temp ABG pCO2 (Temp Corrct ABG pO2 at Pt Temp ABG pO2 (Temp Correct ABG HCO3 ABG Base Excess (Actual) Sodium Potassium Chloride Carbon Dioxide Anion Gap BUN Creatinine Estim Creat Clear Calc Estimated GFR POC Glucose 111 127 H Random Glucose Fasting Glucose Estimat Average Glucose 117 Hemoglobin A1c % 5.7 Calcium Phosphorus Magnesium Total Bilirubin AST ALT Alkaline Phosphatase Troponin I High Sens Total Protein Albumin Cortisol Baseline Cortisol 30 Minute Cortisol 60 Minute ACTH Resp to [place] Cortisol Sreekanth Time 1 Cortisol Sreekanth Time 2 Cortisol Sreekanth Time 3 ACTH Comment 01/20/21 01/20/21 01/20/21 12:32 16:53 21:21 WBC RBC Hgb Hct MCV MCH MCHC RDW Plt Count MPV Immature Gran % (Auto) Neut % (Auto) Lymph % (Auto) [place] % (Auto) Eos % (Auto) Baso % (Auto) Lymph # (Auto) [place] # (Auto) Eos # (Auto) Baso # (Auto) Abs Immat Gran (auto) Absolute Neuts (auto) Absolute Nucleated RBC Nucleated RBC % (auto) Smear Tech's Comments PT INR D-Dimer O2 Saturation ABG pH at Pt Temp ABG pH (Temp Correct) ABG pCO2 at Pt Temp ABG pCO2 (Temp Corrct ABG pO2 at Pt Temp ABG pO2 (Temp Correct ABG HCO3 ABG Base Excess (Actual) Sodium Potassium Chloride Carbon Dioxide Anion Gap BUN Creatinine Estim Creat Clear Calc Estimated GFR POC Glucose 140 H 89 Random Glucose Fasting Glucose Estimat Average Glucose Hemoglobin A1c % Calcium Phosphorus Magnesium Total Bilirubin AST ALT Alkaline Phosphatase Troponin I High Sens Total Protein Albumin Cortisol Baseline 10.3 Cortisol 30 Minute 16.3 L Cortisol 60 Minute 19.8 L ACTH Resp to [place] 1132 Cortisol Sreekanth Time 1 0829 Cortisol Sreekanth Time 2 1206 Cortisol Sreekanth Time 3 1232 ACTH Comment See Below 01/21/21 01/21/21 01/21/21 05:43 11:36 18:05 WBC RBC Hgb Hct MCV MCH MCHC RDW Plt Count MPV Immature Gran % (Auto) Neut % (Auto) Lymph % (Auto) [place] % (Auto) Eos % (Auto) Baso % (Auto) Lymph # (Auto) [place] # (Auto) Eos # (Auto) Baso # (Auto) Abs Immat Gran (auto) Absolute Neuts (auto) Absolute Nucleated RBC Nucleated RBC % (auto) Smear Tech's Comments PT INR D-Dimer O2 Saturation ABG pH at Pt Temp ABG pH (Temp Correct) ABG pCO2 at Pt Temp ABG pCO2 (Temp Corrct ABG pO2 at Pt Temp ABG pO2 (Temp Correct ABG HCO3 ABG Base Excess (Actual) Sodium Potassium Chloride Carbon Dioxide Anion Gap BUN Creatinine Estim Creat Clear Calc Estimated GFR POC Glucose 130 H 130 H 118 H Random Glucose Fasting Glucose Estimat Average Glucose Hemoglobin A1c % Calcium Phosphorus Magnesium Total Bilirubin AST ALT Alkaline Phosphatase Troponin I High Sens Total Protein Albumin Cortisol Baseline Cortisol 30 Minute Cortisol 60 Minute ACTH Resp to [place] Cortisol Sreekanth Time 1 Cortisol Sreekanth Time 2 Cortisol Sreekanth Time 3 ACTH Comment 01/21/21 01/22/21 01/22/21 20:09 05:36 12:41 WBC RBC Hgb Hct MCV MCH MCHC RDW Plt Count MPV Immature Gran % (Auto) Neut % (Auto) Lymph % (Auto) [place] % (Auto) Eos % (Auto) Baso % (Auto) Lymph # (Auto) [place] # (Auto) Eos # (Auto) Baso # (Auto) Abs Immat Gran (auto) Absolute Neuts (auto) Absolute Nucleated RBC Nucleated RBC % (auto) Smear Tech's Comments PT INR D-Dimer O2 Saturation ABG pH at Pt Temp ABG pH (Temp Correct) ABG pCO2 at Pt Temp ABG pCO2 (Temp Corrct ABG pO2 at Pt Temp ABG pO2 (Temp Correct ABG HCO3 ABG Base Excess (Actual) Sodium Potassium Chloride Carbon Dioxide Anion Gap BUN Creatinine Estim Creat Clear Calc Estimated GFR POC Glucose 100 119 H 152 H Random Glucose Fasting Glucose Estimat Average Glucose Hemoglobin A1c % Calcium Phosphorus Magnesium Total Bilirubin AST ALT Alkaline Phosphatase Troponin I High Sens Total Protein Albumin Cortisol Baseline Cortisol 30 Minute Cortisol 60 Minute ACTH Resp to [place] Cortisol Sreekanth Time 1 Cortisol Sreekanth Time 2 Cortisol Sreekanth Time 3 ACTH Comment 01/22/21 01/22/21 01/23/21 16:50 20:10 05:13 WBC RBC Hgb Hct MCV MCH MCHC RDW Plt Count MPV Immature Gran % (Auto) Neut % (Auto) Lymph % (Auto) [place] % (Auto) Eos % (Auto) Baso % (Auto) Lymph # (Auto) [place] # (Auto) Eos # (Auto) Baso # (Auto) Abs Immat Gran (auto) Absolute Neuts (auto) Absolute Nucleated RBC Nucleated RBC % (auto) Smear Tech's Comments PT INR D-Dimer O2 Saturation ABG pH at Pt Temp ABG pH (Temp Correct) ABG pCO2 at Pt Temp ABG pCO2 (Temp Corrct ABG pO2 at Pt Temp ABG pO2 (Temp Correct ABG HCO3 ABG Base Excess (Actual) Sodium Potassium Chloride Carbon Dioxide Anion Gap BUN Creatinine Estim Creat Clear Calc Estimated GFR POC Glucose 126 H 113 121 H Random Glucose Fasting Glucose Estimat Average Glucose Hemoglobin A1c % Calcium Phosphorus Magnesium Total Bilirubin AST ALT Alkaline Phosphatase Troponin I High Sens Total Protein Albumin Cortisol Baseline Cortisol 30 Minute Cortisol 60 Minute ACTH Resp to [place] Cortisol Sreekanth Time 1 Cortisol Sreekanth Time 2 Cortisol Sreekanth Time 3 ACTH Comment 01/23/21 01/23/21 01/23/21 07:49 12:01 16:52 WBC RBC Hgb Hct MCV MCH MCHC RDW Plt Count MPV Immature Gran % (Auto) Neut % (Auto) Lymph % (Auto) [place] % (Auto) Eos % (Auto) Baso % (Auto) Lymph # (Auto) [place] # (Auto) Eos # (Auto) Baso # (Auto) Abs Immat Gran (auto) Absolute Neuts (auto) Absolute Nucleated RBC Nucleated RBC % (auto) Smear Tech's Comments PT INR D-Dimer O2 Saturation ABG pH at Pt Temp ABG pH (Temp Correct) ABG pCO2 at Pt Temp ABG pCO2 (Temp Corrct ABG pO2 at Pt Temp ABG pO2 (Temp Correct ABG HCO3 ABG Base Excess (Actual) Sodium 133 L Potassium 4.6 Chloride 96 Carbon Dioxide 31 H Anion Gap 11 L BUN 20 H Creatinine 0.83 Estim Creat Clear Calc 51.9 Estimated GFR > 60 POC Glucose 122 H 137 H Random Glucose Fasting Glucose 125 H D Estimat Average Glucose Hemoglobin A1c % Calcium 8.7 Phosphorus Magnesium Total Bilirubin 0.2 AST 27 ALT 45 H Alkaline Phosphatase 154 H Troponin I High Sens Total Protein 6.1 L Albumin 2.8 L Cortisol Baseline Cortisol 30 Minute Cortisol 60 Minute ACTH Resp to [place] Cortisol Sreekanth Time 1 Cortisol Sreekanth Time 2 Cortisol Sreekanth Time 3 ACTH Comment 01/23/21 01/24/21 01/24/21 21:10 05:26 16:40 WBC RBC Hgb Hct MCV MCH MCHC RDW Plt Count MPV Immature Gran % (Auto) Neut % (Auto) Lymph % (Auto) [place] % (Auto) Eos % (Auto) Baso % (Auto) Lymph # (Auto) [place] # (Auto) Eos # (Auto) Baso # (Auto) Abs Immat Gran (auto) Absolute Neuts (auto) Absolute Nucleated RBC Nucleated RBC % (auto) Smear Tech's Comments PT INR D-Dimer O2 Saturation ABG pH at Pt Temp ABG pH (Temp Correct) ABG pCO2 at Pt Temp ABG pCO2 (Temp Corrct ABG pO2 at Pt Temp ABG pO2 (Temp Correct ABG HCO3 ABG Base Excess (Actual) Sodium Potassium Chloride Carbon Dioxide Anion Gap BUN Creatinine Estim Creat Clear Calc Estimated GFR POC Glucose 114 117 H 107 Random Glucose Fasting Glucose Estimat Average Glucose Hemoglobin A1c % Calcium Phosphorus Magnesium Total Bilirubin AST ALT Alkaline Phosphatase Troponin I High Sens Total Protein Albumin Cortisol Baseline Cortisol 30 Minute Cortisol 60 Minute ACTH Resp to [place] Cortisol Sreekanth Time 1 Cortisol Sreekanth Time 2 Cortisol Sreekanth Time 3 ACTH Comment 01/25/21 01/25/21 01/25/21 05:25 12:11 16:47 WBC RBC Hgb Hct MCV MCH MCHC RDW Plt Count MPV Immature Gran % (Auto) Neut % (Auto) Lymph % (Auto) [place] % (Auto) Eos % (Auto) Baso % (Auto) Lymph # (Auto) [place] # (Auto) Eos # (Auto) Baso # (Auto) Abs Immat Gran (auto) Absolute Neuts (auto) Absolute Nucleated RBC Nucleated RBC % (auto) Smear Tech's Comments PT INR D-Dimer O2 Saturation ABG pH at Pt Temp ABG pH (Temp Correct) ABG pCO2 at Pt Temp ABG pCO2 (Temp Corrct ABG pO2 at Pt Temp ABG pO2 (Temp Correct ABG HCO3 ABG Base Excess (Actual) Sodium Potassium Chloride Carbon Dioxide Anion Gap BUN Creatinine Estim Creat Clear Calc Estimated GFR POC Glucose 90 155 H 145 H Random Glucose Fasting Glucose Estimat Average Glucose Hemoglobin A1c % Calcium Phosphorus Magnesium Total Bilirubin AST ALT Alkaline Phosphatase Troponin I High Sens Total Protein Albumin Cortisol Baseline Cortisol 30 Minute Cortisol 60 Minute ACTH Resp to [place] Cortisol Sreekanth Time 1 Cortisol Sreekanth Time 2 Cortisol Sreekanth Time 3 ACTH Comment 01/25/21 01/26/21 01/26/21 19:59 05:53 16:28 WBC RBC Hgb Hct MCV MCH MCHC RDW Plt Count MPV Immature Gran % (Auto) Neut % (Auto) Lymph % (Auto) [place] % (Auto) Eos % (Auto) Baso % (Auto) Lymph # (Auto) [place] # (Auto) Eos # (Auto) Baso # (Auto) Abs Immat Gran (auto) Absolute Neuts (auto) Absolute Nucleated RBC Nucleated RBC % (auto) Smear Tech's Comments PT INR D-Dimer O2 Saturation ABG pH at Pt Temp ABG pH (Temp Correct) ABG pCO2 at Pt Temp ABG pCO2 (Temp Corrct ABG pO2 at Pt Temp ABG pO2 (Temp Correct ABG HCO3 ABG Base Excess (Actual) Sodium Potassium Chloride Carbon Dioxide Anion Gap BUN Creatinine Estim Creat Clear Calc Estimated GFR POC Glucose 84 124 H 123 H Random Glucose Fasting Glucose Estimat Average Glucose Hemoglobin A1c % Calcium Phosphorus Magnesium Total Bilirubin AST ALT Alkaline Phosphatase Troponin I High Sens Total Protein Albumin Cortisol Baseline Cortisol 30 Minute Cortisol 60 Minute ACTH Resp to [place] Cortisol Sreekanth Time 1 Cortisol Sreekanth Time 2 Cortisol Sreekanth Time 3 ACTH Comment 01/27/21 01/27/21 01/27/21 05:28 16:38 21:43 WBC RBC Hgb Hct MCV MCH MCHC RDW Plt Count MPV Immature Gran % (Auto) Neut % (Auto) Lymph % (Auto) [place] % (Auto) Eos % (Auto) Baso % (Auto) Lymph # (Auto) [place] # (Auto) Eos # (Auto) Baso # (Auto) Abs Immat Gran (auto) Absolute Neuts (auto) Absolute Nucleated RBC Nucleated RBC % (auto) Smear Tech's Comments PT INR D-Dimer O2 Saturation ABG pH at Pt Temp ABG pH (Temp Correct) ABG pCO2 at Pt Temp ABG pCO2 (Temp Corrct ABG pO2 at Pt Temp ABG pO2 (Temp Correct ABG HCO3 ABG Base Excess (Actual) Sodium Potassium Chloride Carbon Dioxide Anion Gap BUN Creatinine Estim Creat Clear Calc Estimated GFR POC Glucose 93 127 H 103 Random Glucose Fasting Glucose Estimat Average Glucose Hemoglobin A1c % Calcium Phosphorus Magnesium Total Bilirubin AST ALT Alkaline Phosphatase Troponin I High Sens Total Protein Albumin Cortisol Baseline Cortisol 30 Minute Cortisol 60 Minute ACTH Resp to [place] Cortisol Sreekanth Time 1 Cortisol Sreekanth Time 2 Cortisol Sreekanth Time 3 ACTH Comment 01/28/21 01/28/21 01/28/21 05:56 08:19 16:13 WBC RBC Hgb Hct MCV MCH MCHC RDW Plt Count MPV Immature Gran % (Auto) Neut % (Auto) Lymph % (Auto) [place] % (Auto) Eos % (Auto) Baso % (Auto) Lymph # (Auto) [place] # (Auto) Eos # (Auto) Baso # (Auto) Abs Immat Gran (auto) Absolute Neuts (auto) Absolute Nucleated RBC Nucleated RBC % (auto) Smear Tech's Comments PT INR D-Dimer O2 Saturation ABG pH at Pt Temp ABG pH (Temp Correct) ABG pCO2 at Pt Temp ABG pCO2 (Temp Corrct ABG pO2 at Pt Temp ABG pO2 (Temp Correct ABG HCO3 ABG Base Excess (Actual) Sodium 136 Potassium 4.7 Chloride 99 Carbon Dioxide 33 H Anion Gap 9 L BUN 22 H Creatinine 0.86 Estim Creat Clear Calc 50.1 Estimated GFR > 60 POC Glucose 117 H 142 H Random Glucose Fasting Glucose 128 H Estimat Average Glucose Hemoglobin A1c % Calcium 8.6 Phosphorus Magnesium Total Bilirubin 0.4 AST 26 ALT 38 Alkaline Phosphatase 137 H Troponin I High Sens Total Protein 5.9 L Albumin 2.7 L Cortisol Baseline Cortisol 30 Minute Cortisol 60 Minute ACTH Resp to [place] Cortisol Sreekanth Time 1 Cortisol Sreekanth Time 2 Cortisol Sreekanth Time 3 ACTH Comment 01/28/21 01/29/21 01/29/21 19:51 06:42 13:57 WBC RBC Hgb Hct MCV MCH MCHC RDW Plt Count MPV Immature Gran % (Auto) Neut % (Auto) Lymph % (Auto) [place] % (Auto) Eos % (Auto) Baso % (Auto) Lymph # (Auto) [place] # (Auto) Eos # (Auto) Baso # (Auto) Abs Immat Gran (auto) Absolute Neuts (auto) Absolute Nucleated RBC Nucleated RBC % (auto) Smear Tech's Comments PT INR D-Dimer O2 Saturation ABG pH at Pt Temp ABG pH (Temp Correct) ABG pCO2 at Pt Temp ABG pCO2 (Temp Corrct ABG pO2 at Pt Temp ABG pO2 (Temp Correct ABG HCO3 ABG Base Excess (Actual) Sodium Potassium Chloride Carbon Dioxide Anion Gap BUN Creatinine Estim Creat Clear Calc Estimated GFR POC Glucose 152 H 87 102 Random Glucose Fasting Glucose Estimat Average Glucose Hemoglobin A1c % Calcium Phosphorus Magnesium Total Bilirubin AST ALT Alkaline Phosphatase Troponin I High Sens Total Protein Albumin Cortisol Baseline Cortisol 30 Minute Cortisol 60 Minute ACTH Resp to Cosyntrop Cortisol Sreekanth Time 1 Cortisol Sreekanth Time 2 Cortisol Sreekanth Time 3 ACTH Comment 01/29/21 01/30/21 01/30/21 20:24 06:45 11:58 WBC RBC Hgb Hct MCV MCH MCHC RDW Plt Count MPV Immature Gran % (Auto) Neut % (Auto) Lymph % (Auto) [place] % (Auto) Eos % (Auto) Baso % (Auto) Lymph # (Auto) [place] # (Auto) Eos # (Auto) Baso # (Auto) Abs Immat Gran (auto) Absolute Neuts (auto) Absolute Nucleated RBC Nucleated RBC % (auto) Smear Tech's Comments PT INR D-Dimer O2 Saturation ABG pH at Pt Temp ABG pH (Temp Correct) ABG pCO2 at Pt Temp ABG pCO2 (Temp Corrct ABG pO2 at Pt Temp ABG pO2 (Temp Correct ABG HCO3 ABG Base Excess (Actual) Sodium Potassium Chloride Carbon Dioxide Anion Gap BUN Creatinine Estim Creat Clear Calc Estimated GFR POC Glucose 148 H 126 H 120 H Random Glucose Fasting Glucose Estimat Average Glucose Hemoglobin A1c % Calcium Phosphorus Magnesium Total Bilirubin AST ALT Alkaline Phosphatase Troponin I High Sens Total Protein Albumin Cortisol Baseline Cortisol 30 Minute Cortisol 60 Minute ACTH Resp to Cosyntrop Cortisol Sreekanth Time 1 Cortisol Sreekanth Time 2 Cortisol Sreekanth Time 3 ACTH Comment 01/30/21 01/30/21 01/31/21 16:53 21:01 06:19 WBC RBC Hgb Hct MCV MCH MCHC RDW Plt Count MPV Immature Gran % (Auto) Neut % (Auto) Lymph % (Auto) [place] % (Auto) Eos % (Auto) Baso % (Auto) Lymph # (Auto) [place] # (Auto) Eos # (Auto) Baso # (Auto) Abs Immat Gran (auto) Absolute Neuts (auto) Absolute Nucleated RBC Nucleated RBC % (auto) Smear Tech's Comments PT INR D-Dimer O2 Saturation ABG pH at Pt Temp ABG pH (Temp Correct) ABG pCO2 at Pt Temp ABG pCO2 (Temp Corrct ABG pO2 at Pt Temp ABG pO2 (Temp Correct ABG HCO3 ABG Base Excess (Actual) Sodium Potassium Chloride Carbon Dioxide Anion Gap BUN Creatinine Estim Creat Clear Calc Estimated GFR POC Glucose 113 117 H 123 H Random Glucose Fasting Glucose Estimat Average Glucose Hemoglobin A1c % Calcium Phosphorus Magnesium Total Bilirubin AST ALT Alkaline Phosphatase Troponin I High Sens Total Protein Albumin Cortisol Baseline Cortisol 30 Minute Cortisol 60 Minute ACTH Resp to Cosyntrop Cortisol Sreekanth Time 1 Cortisol Sreekanth Time 2 Cortisol Sreekanth Time 3 ACTH Comment 01/31/21 01/31/21 01/31/21 12:07 16:39 20:56 WBC RBC Hgb Hct MCV MCH MCHC RDW Plt Count MPV Immature Gran % (Auto) Neut % (Auto) Lymph % (Auto) [place] % (Auto) Eos % (Auto) Baso % (Auto) Lymph # (Auto) [place] # (Auto) Eos # (Auto) Baso # (Auto) Abs Immat Gran (auto) Absolute Neuts (auto) Absolute Nucleated RBC Nucleated RBC % (auto) Smear Tech's Comments PT INR D-Dimer O2 Saturation ABG pH at Pt Temp ABG pH (Temp Correct) ABG pCO2 at Pt Temp ABG pCO2 (Temp Corrct ABG pO2 at Pt Temp ABG pO2 (Temp Correct ABG HCO3 ABG Base Excess (Actual) Sodium Potassium Chloride Carbon Dioxide Anion Gap BUN Creatinine Estim Creat Clear Calc Estimated GFR POC Glucose 129 H 112 141 H Random Glucose Fasting Glucose Estimat Average Glucose Hemoglobin A1c % Calcium Phosphorus Magnesium Total Bilirubin AST ALT Alkaline Phosphatase Troponin I High Sens Total Protein Albumin Cortisol Baseline Cortisol 30 Minute Cortisol 60 Minute ACTH Resp to Cosyntrop Cortisol Sreekanth Time 1 Cortisol Sreekanth Time 2 Cortisol Sreekanth Time 3 ACTH Comment 02/01/21 02/01/21 02/01/21 06:23 11:35 16:46 WBC RBC Hgb Hct MCV MCH MCHC RDW Plt Count MPV Immature Gran % (Auto) Neut % (Auto) Lymph % (Auto) [place] % (Auto) Eos % (Auto) Baso % (Auto) Lymph # (Auto) [place] # (Auto) Eos # (Auto) Baso # (Auto) Abs Immat Gran (auto) Absolute Neuts (auto) Absolute Nucleated RBC Nucleated RBC % (auto) Smear Tech's Comments PT INR D-Dimer O2 Saturation ABG pH at Pt Temp ABG pH (Temp Correct) ABG pCO2 at Pt Temp ABG pCO2 (Temp Corrct ABG pO2 at Pt Temp ABG pO2 (Temp Correct ABG HCO3 ABG Base Excess (Actual) Sodium Potassium Chloride Carbon Dioxide Anion Gap BUN Creatinine Estim Creat Clear Calc Estimated GFR POC Glucose 99 95 143 H Random Glucose Fasting Glucose Estimat Average Glucose Hemoglobin A1c % Calcium Phosphorus Magnesium Total Bilirubin AST ALT Alkaline Phosphatase Troponin I High Sens Total Protein Albumin Cortisol Baseline Cortisol 30 Minute Cortisol 60 Minute ACTH Resp to Cosyntrop Cortisol Sreekanth Time 1 Cortisol Sreekanth Time 2 Cortisol Sreekanth Time 3 ACTH Comment 02/01/21 02/02/21 02/02/21 21:31 05:31 12:13 WBC RBC Hgb Hct MCV MCH MCHC RDW Plt Count MPV Immature Gran % (Auto) Neut % (Auto) Lymph % (Auto) [place] % (Auto) Eos % (Auto) Baso % (Auto) Lymph # (Auto) [place] # (Auto) Eos # (Auto) Baso # (Auto) Abs Immat Gran (auto) Absolute Neuts (auto) Absolute Nucleated RBC Nucleated RBC % (auto) Smear Tech's Comments PT INR D-Dimer O2 Saturation ABG pH at Pt Temp ABG pH (Temp Correct) ABG pCO2 at Pt Temp ABG pCO2 (Temp Corrct ABG pO2 at Pt Temp ABG pO2 (Temp Correct ABG HCO3 ABG Base Excess (Actual) Sodium Potassium Chloride Carbon Dioxide Anion Gap BUN Creatinine Estim Creat Clear Calc Estimated GFR POC Glucose 129 H 130 H 132 H Random Glucose Fasting Glucose Estimat Average Glucose Hemoglobin A1c % Calcium Phosphorus Magnesium Total Bilirubin AST ALT Alkaline Phosphatase Troponin I High Sens Total Protein Albumin Cortisol Baseline Cortisol 30 Minute Cortisol 60 Minute ACTH Resp to Cosyntrop Cortisol Sreekanth Time 1 Cortisol Sreekanth Time 2 Cortisol Sreekanth Time 3 ACTH Comment 02/02/21 02/02/21 02/03/21 16:33 21:32 05:34 WBC RBC Hgb Hct MCV MCH MCHC RDW Plt Count MPV Immature Gran % (Auto) Neut % (Auto) Lymph % (Auto) [place] % (Auto) Eos % (Auto) Baso % (Auto) Lymph # (Auto) [place] # (Auto) Eos # (Auto) Baso # (Auto) Abs Immat Gran (auto) Absolute Neuts (auto) Absolute Nucleated RBC Nucleated RBC % (auto) Smear Tech's Comments PT INR D-Dimer O2 Saturation ABG pH at Pt Temp ABG pH (Temp Correct) ABG pCO2 at Pt Temp ABG pCO2 (Temp Corrct ABG pO2 at Pt Temp ABG pO2 (Temp Correct ABG HCO3 ABG Base Excess (Actual) Sodium Potassium Chloride Carbon Dioxide Anion Gap BUN Creatinine Estim Creat Clear Calc Estimated GFR POC Glucose 139 H 130 H 85 Random Glucose Fasting Glucose Estimat Average Glucose Hemoglobin A1c % Calcium Phosphorus Magnesium Total Bilirubin AST ALT Alkaline Phosphatase Troponin I High Sens Total Protein Albumin Cortisol Baseline Cortisol 30 Minute Cortisol 60 Minute ACTH Resp to Cosyntrop Cortisol Sreekanth Time 1 Cortisol Sreekanth Time 2 Cortisol Sreekanth Time 3 ACTH Comment 02/03/21 02/03/21 02/03/21 13:14 16:48 19:48 WBC RBC Hgb Hct MCV MCH MCHC RDW Plt Count MPV Immature Gran % (Auto) Neut % (Auto) Lymph % (Auto) [place] % (Auto) Eos % (Auto) Baso % (Auto) Lymph # (Auto) [place] # (Auto) Eos # (Auto) Baso # (Auto) Abs Immat Gran (auto) Absolute Neuts (auto) Absolute Nucleated RBC Nucleated RBC % (auto) Smear Tech's Comments PT INR D-Dimer O2 Saturation ABG pH at Pt Temp ABG pH (Temp Correct) ABG pCO2 at Pt Temp ABG pCO2 (Temp Corrct ABG pO2 at Pt Temp ABG pO2 (Temp Correct ABG HCO3 ABG Base Excess (Actual) Sodium Potassium Chloride Carbon Dioxide Anion Gap BUN Creatinine Estim Creat Clear Calc Estimated GFR POC Glucose 129 H 144 H 138 H Random Glucose Fasting Glucose Estimat Average Glucose Hemoglobin A1c % Calcium Phosphorus Magnesium Total Bilirubin AST ALT Alkaline Phosphatase Troponin I High Sens Total Protein Albumin Cortisol Baseline Cortisol 30 Minute Cortisol 60 Minute ACTH Resp to Cosyntrop Cortisol Sreekanth Time 1 Cortisol Sreekanth Time 2 Cortisol Sreekanth Time 3 ACTH Comment 02/04/21 02/04/21 02/04/21 05:28 08:57 13:55 WBC RBC Hgb Hct MCV MCH MCHC RDW Plt Count MPV Immature Gran % (Auto) Neut % (Auto) Lymph % (Auto) [place] % (Auto) Eos % (Auto) Baso % (Auto) Lymph # (Auto) [place] # (Auto) Eos # (Auto) Baso # (Auto) Abs Immat Gran (auto) Absolute Neuts (auto) Absolute Nucleated RBC Nucleated RBC % (auto) Smear Tech's Comments PT INR D-Dimer O2 Saturation ABG pH at Pt Temp ABG pH (Temp Correct) ABG pCO2 at Pt Temp ABG pCO2 (Temp Corrct ABG pO2 at Pt Temp ABG pO2 (Temp Correct ABG HCO3 ABG Base Excess (Actual) Sodium 134 L Potassium 4.8 Chloride 99 Carbon Dioxide 28 Anion Gap 12 BUN 20 H Creatinine 0.80 Estim Creat Clear Calc 53.8 Estimated GFR > 60 POC Glucose 87 156 H Random Glucose Fasting Glucose 89 Estimat Average Glucose Hemoglobin A1c % Calcium 8.8 Phosphorus Magnesium Total Bilirubin 0.3 AST 30 ALT 37 Alkaline Phosphatase 140 H Troponin I High Sens Total Protein 6.5 Albumin 2.8 L Cortisol Baseline Cortisol 30 Minute Cortisol 60 Minute ACTH Resp to Cosyntrop Cortisol Sreekanth Time 1 Cortisol Sreekanth Time 2 Cortisol Sreekanth Time 3 ACTH Comment 02/04/21 02/04/21 02/05/21 16:33 20:18 05:52 WBC RBC Hgb Hct MCV MCH MCHC RDW Plt Count MPV Immature Gran % (Auto) Neut % (Auto) Lymph % (Auto) [place] % (Auto) Eos % (Auto) Baso % (Auto) Lymph # (Auto) [place] # (Auto) Eos # (Auto) Baso # (Auto) Abs Immat Gran (auto) Absolute Neuts (auto) Absolute Nucleated RBC Nucleated RBC % (auto) Smear Tech's Comments PT INR D-Dimer O2 Saturation ABG pH at Pt Temp ABG pH (Temp Correct) ABG pCO2 at Pt Temp ABG pCO2 (Temp Corrct ABG pO2 at Pt Temp ABG pO2 (Temp Correct ABG HCO3 ABG Base Excess (Actual) Sodium Potassium Chloride Carbon Dioxide Anion Gap BUN Creatinine Estim Creat Clear Calc Estimated GFR POC Glucose 162 H 143 H 84 Random Glucose Fasting Glucose Estimat Average Glucose Hemoglobin A1c % Calcium Phosphorus Magnesium Total Bilirubin AST ALT Alkaline Phosphatase Troponin I High Sens Total Protein Albumin Cortisol Baseline Cortisol 30 Minute Cortisol 60 Minute ACTH Resp to Cosyntrop Cortisol Sreekanth Time 1 Cortisol Sreekanth Time 2 Cortisol Sreekanth Time 3 ACTH Comment Airway Mallampati Class: II Neck ROM: Full Loose/Missing/Broken Teeth: Yes Heart: RRR Assessment and Plan Assessment Anesthesia Assessment: Anesthesia Plan Discussed and Chart Reviewed Final Anesthetic Review NPO: Yes ASA Class: III Final Preanesthetic Review: No Changes in Pt Med Stat, Meds/Allgs Chart Reviewed, Consent Obtained/Reviewed and Anes Risks/Benef Reviewed Patient Risk: High Procedure Risk: Low Anesthetic Plan Anesthetic Plan: GA Disposition: Standard PACU
--- NOTE | 2021-02-05 08:58 | MHC.SHP ---
Pre-Procedural Eval Section A The patient is an INPATIENT: Yes Changes since office visit: Yes New Medical Problems, Yes Changes in Medication and Yes Patient answered all questions; No Cold of Flu in the past 2 weeks The History & Physical has been completed within 30 days and I have reviewed it.: Yes Section B Chief Complaint: severe depression Allergies: Allergies Allergy/AdvReac Type Severity Reaction Status Date / Time Sulfa (Sulfonamide Allergy Unknown UNKNOWN Verified 12/01/20 09:47 Antibiotics) [SULFA (SULFONAMIDE ANTIBIOTICS)] zoster vaccine live Allergy Hives Verified 12/01/20 09:47 Plan I have reviewed the history and physical and performed a pertinent physical examination on my patient. No changes have occurred unless specified.
--- NOTE | 2021-02-05 08:59 | HO.ECTPROC ---
ECT Procedure Note Diagnosis/Treatment Date of Service: 02/05/21 Diagnosis: Bipolar disorder Current Treatment Number: 8 Treatment: Series Interval Clinical Notes: some improvement noted ECT Settings Device: THYMATRON DGx Electrode Placement: Right Unilateral Program/Pulse Width: 0.50 Energy Percent: 100 Seizure Duration By EEG (in seconds): 41 Medications Administration General Anesthetic: Etomidate (10) Muscle Relaxant: Rocuronium Ancillary Medications Miscillaneous Medications: Propofol and Midazolam Airway Management Airway Management: Bag Mask Ventilation Treatment Recommendations No Changes Recommended: No change Notes: Keep head of the bed upright to prevent aspiration Pt Tolerated Procedure w/o Issue: Yes
[2021-02-05] MEDS: Amphetamine Mixed Salts 10 MG TABLET 5 MG G-TUBE ×2 (10:35→14:44)
[2021-02-05] MEDS: FLUoxetine HCl Oral Solution 20 MG/5 ML SOLUTION 7.5 MG PO (10:37)
[2021-02-05] MEDS: Thiamine HCL 100 MG TABLET G-TUBE (10:40)
[2021-02-05] MEDS: Fluconazole 100 MG TABLET G-TUBE (10:40)
[2021-02-05] MEDS: Hydrocortisone 10 MG TABLET PO (10:41)
[2021-02-05] MEDS: Clotrimazole 1 % Cream 15 GM TUBE 1 APPL TOPICAL ×2 (10:41→20:02)
[2021-02-05] MEDS: Famotidine 20 MG TABLET G-TUBE (10:41)
[2021-02-05] MEDS: Budesonide 180 MCG AER.POW.BA 2 PUFF INHALE ×2 (10:42→20:02)
--- NOTE | 2021-02-05 14:34 | MHC.CLN ---
F/U LABS NA 134, BUN 20, ALBUMIN 2.8 WT 118# (02/06/21), 109# (02/05/21) CONSIDER RE-WEIGHT NOTED PT RECEIVING NYSTATIN FOR THRUSH PT CURRENTLY RECEIVING OSMOLITE 1.5 AT MAX GOAL RATE 100CC/HR CONTINUOUS FROM 9AM-9PM PROVIDES 1800KCALS (35KCALS/KG), 75G PROTEIN (1.5G/KG), 914CC FREE WATER FROM FORMULA. TF MEETS 100% RDI FLUID RESTRICTION 1L PER DAY 01/22/21 PER NEPHROLOGY TF PUT ON HOLD R/T ECT TREATMENT-WILL RE-START ORDER MONITOR TOLERANCE, RESIDUALS AND LYTES FOLLOWING
[2021-02-05] MEDS: Hydrocortisone 10 MG TABLET 5 MG PO (14:45)
[2021-02-05] MEDS: LORazepam 0.5 MG TABLET PO (16:15)
[2021-02-05 18:22] LABS: Glucose, Whole Blood 134 mg/dL (60-115)
[2021-02-05] MEDS: Hydrocortisone 10 MG TABLET 2.5 MG PO (18:33)
[2021-02-05] MEDS: Mirtazapine 7.5 MG TABLET G-TUBE (19:59)
[2021-02-05 20:14] LABS: Glucose, Whole Blood 148 mg/dL (60-115)
--- NOTE | 2021-02-05 20:31 | HO.ECTPROC ---
ECT Procedure Note Diagnosis/Treatment Date of Service: 02/05/21 Diagnosis: Bipolar disorder Current Treatment Number: 8 Treatment: Series Interval Clinical Notes: pt with some improvement ECT Settings Device: THYMATRON DGx Electrode Placement: Right Unilateral Program/Pulse Width: 0.50 Energy Percent: 100 Seizure Duration By EEG (in seconds): 41 Medications Administration General Anesthetic: Etomidate (10) Muscle Relaxant: Rocuronium Ancillary Medications Anti-emetics: Zofran - Pre ECT Miscillaneous Medications: Propofol and Midazolam Airway Management Airway Management: Bag Mask Ventilation Treatment Recommendations No Changes Recommended: No change Pt Tolerated Procedure w/o Issue: Yes
--- NOTE | 2021-02-05 20:38 | HO.PSYCHPN ---
Subjective Subjective Date of Service: 02/05/21 Reason For Visit: severe depression Subjective Notes: Conditional Voluntary Guardianship: No Interim History: some improvement noted Medication Compliance: Yes Mental Status Exam Mental Status Exam Patient Appearance: Appropriate Patient Orientation: Person, Place, Time and Situation Level of Consciousness: Awake Patient Behavior: Appropriate and Passive Mood Description: Depressed, Flat and Apprehensive Affect Description: Depressed and Anxious Patient Cognition Impaired: No Ability to Follow Directions: Good Speech Pattern: Clear, Impoverished and Monotone Memory Description: Intact Delusions: Not Present Thought Process: Intact Thought Content: positive for [employer] Depressive Symptoms: Increased Anxiety, Significant Weight Loss, Increased Fatigue, Loss of Energy and Difficulty Concentrating Judgement: Fair Judgement and Insight: responds to encouragement and information/education around getting OOB and building strength Diagnostics Vital Signs (24Hr): Vital Signs - 24 hr 02/04/21 21:54 02/05/21 05:49 02/05/21 06:03 Temperature 98.5 F 97.5 F 97.5 F Pulse Rate 90 72 72 Respiratory Rate 20 18 18 Blood Pressure 113/72 127/70 127/70 Pulse Oximetry 95 95 02/05/21 07:19 02/05/21 09:16 02/05/21 09:21 Temperature 97.5 F 97.3 F Pulse Rate 74 72 75 Respiratory Rate 16 20 20 Blood Pressure 120/74 163/78 H 120/70 Pulse Oximetry 95 100 100 02/05/21 09:26 02/05/21 09:29 02/05/21 09:46 Temperature Pulse Rate 84 87 85 Respiratory Rate 20 20 18 Blood Pressure 127/77 126/80 136/81 Pulse Oximetry 100 99 95 Body Mass Index 18.4 Labs Results: 01/15/21 14:51 02/04/21 08:57 Labs: Laboratory Results - last 48 hr 02/04/21 02/04/21 02/04/21 05:28 08:57 13:55 Sodium 134 L Potassium 4.8 Chloride 99 Carbon Dioxide 28 Anion Gap 12 BUN 20 H Creatinine 0.80 Estim Creat Clear Calc 53.8 Estimated GFR > 60 POC Glucose 87 156 H Fasting Glucose 89 Calcium 8.8 Total Bilirubin 0.3 AST 30 ALT 37 Alkaline Phosphatase 140 H Total Protein 6.5 Albumin 2.8 L 02/04/21 02/04/21 02/05/21 16:33 20:18 05:52 Sodium Potassium Chloride Carbon Dioxide Anion Gap BUN Creatinine Estim Creat Clear Calc Estimated GFR POC Glucose 162 H 143 H 84 Fasting Glucose Calcium Total Bilirubin AST ALT Alkaline Phosphatase Total Protein Albumin 02/05/21 02/05/21 18:17 20:10 Sodium Potassium Chloride Carbon Dioxide Anion Gap BUN Creatinine Estim Creat Clear Calc Estimated GFR POC Glucose 134 H 148 H Fasting Glucose Calcium Total Bilirubin AST ALT Alkaline Phosphatase Total Protein Albumin Imaging Radiology Impressions: ITS Impressions Modified Barium Swallow 01/07/21 14:15 IMPRESSION: Laryngeal penetration and occasional aspiration as described above. Please refer to speech pathology report for details. Chest X-Ray 01/10/21 09:11 IMPRESSION: Severe chronic interstitial lung disease. No evidence of acute superimposed pneumonitis. Medications Medications Current Medications Generic Name Dose Route Start Last Admin Trade Name Freq PRN Reason Stop Dose Admin Acetaminophen 650 mg 01/09/21 15:51 02/01/21 09:10 Acetaminophen 325 Mg Tablet G-TUBE 650 mg Q4H PRN Administration Pain, Mild (Pain Scale 1-3) Al Hydroxide/Mg Hydroxide 30 ml 01/08/21 15:46 Magnesium Hydrox/Alum Hydrox 30 Ml Oral.Susp G-TUBE Q4H PRN Dyspepsia Amphetamine/Dextroamphetamine 5 mg 02/01/21 13:00 02/05/21 14:44 Amphetamine Mixed Salts 10 Mg Tablet G-TUBE 5 mg BID@0800,1300 DOMINICK Administration Budesonide 2 puff 12/31/20 20:00 02/05/21 20:02 Budesonide 180 Mcg Aer.Pow.Ba INHALE 2 puff RBID DOMINICK Administration Clotrimazole 1 appl 01/06/21 21:00 02/05/21 20:02 Clotrimazole 1 % Cream 15 Gm Tube TOPICAL 1 appl BID DOMINICK Administration Protocol Famotidine 20 mg 01/09/21 09:00 02/05/21 10:41 Famotidine 20 Mg Tablet G-TUBE 20 mg DAILY DOMINICK Administration Fluconazole 100 mg 02/04/21 18:00 02/05/21 10:40 Fluconazole 100 Mg Tablet G-TUBE 100 mg DAILY DOMINICK Administration Fluoxetine HCl 7.5 mg 02/02/21 09:00 02/05/21 10:37 Fluoxetine Hcl Oral Solution 20 Mg/5 Ml Solution PO 7.5 mg DAILY DOMINICK Administration Hydrocortisone 2.5 mg 01/23/21 19:00 02/05/21 18:33 Hydrocortisone 10 Mg Tablet PO 2.5 mg DAILY@1900 DOMINICK Administration Hydrocortisone 5 mg 01/23/21 13:00 02/05/21 14:45 Hydrocortisone 10 Mg Tablet PO 5 mg DAILY@1300 DOMINICK Administration Hydrocortisone 10 mg 01/28/21 08:00 02/05/21 10:41 Hydrocortisone 10 Mg Tablet PO 10 mg DAILY@0800 DOMINICK Administration Lorazepam 0.5 mg 02/01/21 16:43 02/05/21 16:15 Lorazepam 0.5 Mg Tablet PO 0.5 mg Q4H PRN Administration anxiety/restlessness Mirtazapine 7.5 mg 01/14/21 21:00 02/05/21 19:59 Mirtazapine 7.5 Mg Tablet G-TUBE 7.5 mg BEDTIME DOMINICK Administration Omeprazole 40 mg 01/08/21 16:30 02/05/21 16:15 Omeprazole 20 Mg/10 Ml Susp.Recon G-TUBE 40 mg BID@0630,1630 DOMINICK Administration Prochlorperazine Edisylate 5 mg 12/31/20 23:21 01/06/21 09:42 Prochlorperazine Edisylate 10 Mg/2 Ml Vial IM 5 mg Q6H PRN Administration Nausea and Vomiting Thiamine HCl 100 mg 01/09/21 09:00 02/05/21 10:40 Thiamine Hcl 100 Mg Tablet G-TUBE 100 mg DAILY DOMINICK Administration Allergies Allergies Allergy/AdvReac Type Severity Reaction Status Date / Time Sulfa (Sulfonamide Allergy Unknown UNKNOWN Verified 12/01/20 09:47 Antibiotics) [SULFA (SULFONAMIDE ANTIBIOTICS)] zoster vaccine live Allergy Hives Verified 12/01/20 09:47 Assessment & Plan Assessment & Plan (1) Adrenal insufficiency: Status: Acute Code(s): E27.40 - Unspecified adrenocortical insufficiency (2) Bipolar I disorder with depression, severe: Status: Acute Code(s): F31.4 - Bipolar disorder, current episode depressed, severe, without psychotic features Assessment and Plan: 80M with adrenal insufficeincy, 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
[2021-02-06 06:45] VITALS: BP 101/63; PULSE 78; RESP 22; TEMP 36.3; O2SAT 95
[2021-02-06 06:45] LABS: Glucose, Whole Blood 81 mg/dL (60-115)
--- NOTE | 2021-02-06 07:06 | HO.POSTANES ---
Post Anesthesia Evaluation Post Anesthesia Evaluation Vital Signs: Vital Signs Temp Pulse Resp BP Pulse Ox 02/06/21 06:45 97.4 F 78 22 H 101/63 95 02/05/21 21:09 98.1 F 72 20 100/62 95 Anesthesia: General Mental Status: Awake Pain Control: Satisfactory Nausea/Vomiting: None Hydration: Adequate Anesthesia-Related Issues: No Anes. Related Issues
[2021-02-06] MEDS: Thiamine HCL 100 MG TABLET G-TUBE (09:36)
[2021-02-06] MEDS: Amphetamine Mixed Salts 10 MG TABLET 5 MG G-TUBE ×2 (09:36→12:57)
[2021-02-06] MEDS: Hydrocortisone 10 MG TABLET PO (09:37)
[2021-02-06] MEDS: Fluconazole 100 MG TABLET G-TUBE (09:37)
[2021-02-06] MEDS: Famotidine 20 MG TABLET G-TUBE (09:38)
[2021-02-06] MEDS: FLUoxetine HCl Oral Solution 20 MG/5 ML SOLUTION 7.5 MG PO (09:39)
[2021-02-06] MEDS: Budesonide 180 MCG AER.POW.BA 2 PUFF INHALE ×2 (09:40→22:01)
--- NOTE | 2021-02-06 09:54 | HO.PSYCHPN ---
Subjective Subjective Date of Service: 02/06/21 Reason For Visit: severe depression Interim History: The patient remains mostly bed-bounded. He had ECT yesterday and he reported feeling a little better . Nursing staff reported loose stools but no dehydration. Medication Compliance: Yes Side effects from medications: No Attending Groups: No Mental Status Exam Mental Status Exam Patient Appearance: Disheveled Patient Orientation: Person, Place, Time and Situation Level of Consciousness: Awake Patient Behavior: Cooperative Mood Description: Constricted Affect Description: Calm Patient Cognition Impaired: No Ability to Follow Directions: Good Speech Pattern: Clear Memory Description: Intact Thought Process: Goal Oriented Thought Content: positive for Intact Judgement: Fair Diagnostics Vital Signs (24Hr): Vital Signs - 24 hr 02/05/21 21:09 02/06/21 06:45 Temperature 98.1 F 97.4 F Pulse Rate 72 78 Respiratory Rate 20 22 H Blood Pressure 100/62 101/63 Pulse Oximetry 95 95 Body Mass Index 18.4 Labs Results: 01/15/21 14:51 02/04/21 08:57 Labs: Laboratory Results - last 48 hr 02/04/21 02/04/21 02/04/21 08:57 13:55 16:33 Sodium 134 L Potassium 4.8 Chloride 99 Carbon Dioxide 28 Anion Gap 12 BUN 20 H Creatinine 0.80 Estim Creat Clear Calc 53.8 Estimated GFR > 60 POC Glucose 156 H 162 H Fasting Glucose 89 Calcium 8.8 Total Bilirubin 0.3 AST 30 ALT 37 Alkaline Phosphatase 140 H Total Protein 6.5 Albumin 2.8 L 02/04/21 02/05/21 02/05/21 20:18 05:52 18:17 Sodium Potassium Chloride Carbon Dioxide Anion Gap BUN Creatinine Estim Creat Clear Calc Estimated GFR POC Glucose 143 H 84 134 H Fasting Glucose Calcium Total Bilirubin AST ALT Alkaline Phosphatase Total Protein Albumin 02/05/21 02/06/21 20:10 06:25 Sodium Potassium Chloride Carbon Dioxide Anion Gap BUN Creatinine Estim Creat Clear Calc Estimated GFR POC Glucose 148 H 81 Fasting Glucose Calcium Total Bilirubin AST ALT Alkaline Phosphatase Total Protein Albumin Imaging Radiology Impressions: ITS Impressions Modified Barium Swallow 01/07/21 14:15 IMPRESSION: Laryngeal penetration and occasional aspiration as described above. Please refer to speech pathology report for details. Chest X-Ray 01/10/21 09:11 IMPRESSION: Severe chronic interstitial lung disease. No evidence of acute superimposed pneumonitis. Medications Medications Current Medications Generic Name Dose Route Start Last Admin Trade Name Freq PRN Reason Stop Dose Admin Acetaminophen 650 mg 01/09/21 15:51 02/01/21 09:10 Acetaminophen 325 Mg Tablet G-TUBE 650 mg Q4H PRN Administration Pain, Mild (Pain Scale 1-3) Al Hydroxide/Mg Hydroxide 30 ml 01/08/21 15:46 Magnesium Hydrox/Alum Hydrox 30 Ml Oral.Susp G-TUBE Q4H PRN Dyspepsia Amphetamine/Dextroamphetamine 5 mg 02/01/21 13:00 02/05/21 14:44 Amphetamine Mixed Salts 10 Mg Tablet G-TUBE 5 mg BID@0800,1300 DOMINICK Administration Budesonide 2 puff 12/31/20 20:00 02/05/21 20:02 Budesonide 180 Mcg Aer.Pow.Ba INHALE 2 puff RBID DOMINICK Administration Clotrimazole 1 appl 01/06/21 21:00 02/05/21 20:02 Clotrimazole 1 % Cream 15 Gm Tube TOPICAL 1 appl BID DOMINICK Administration Protocol Famotidine 20 mg 01/09/21 09:00 02/05/21 10:41 Famotidine 20 Mg Tablet G-TUBE 20 mg DAILY DOMINICK Administration Fluconazole 100 mg 02/04/21 18:00 02/05/21 10:40 Fluconazole 100 Mg Tablet G-TUBE 100 mg DAILY DOMINICK Administration Fluoxetine HCl 7.5 mg 02/02/21 09:00 02/05/21 10:37 Fluoxetine Hcl Oral Solution 20 Mg/5 Ml Solution PO 7.5 mg DAILY DOMINICK Administration Hydrocortisone 2.5 mg 01/23/21 19:00 02/05/21 18:33 Hydrocortisone 10 Mg Tablet PO 2.5 mg DAILY@1900 DOMINICK Administration Hydrocortisone 5 mg 01/23/21 13:00 02/05/21 14:45 Hydrocortisone 10 Mg Tablet PO 5 mg DAILY@1300 DOMINICK Administration Hydrocortisone 10 mg 01/28/21 08:00 02/05/21 10:41 Hydrocortisone 10 Mg Tablet PO 10 mg DAILY@0800 DOMINICK Administration Lorazepam 0.5 mg 02/01/21 16:43 02/05/21 16:15 Lorazepam 0.5 Mg Tablet PO 0.5 mg Q4H PRN Administration anxiety/restlessness Mirtazapine 7.5 mg 01/14/21 21:00 02/05/21 19:59 Mirtazapine 7.5 Mg Tablet G-TUBE 7.5 mg BEDTIME DOMINICK Administration Omeprazole 40 mg 01/08/21 16:30 02/06/21 06:38 Omeprazole 20 Mg/10 Ml Susp.Recon G-TUBE 40 mg BID@0630,1630 DOMINICK Administration Prochlorperazine Edisylate 5 mg 12/31/20 23:21 01/06/21 09:42 Prochlorperazine Edisylate 10 Mg/2 Ml Vial IM 5 mg Q6H PRN Administration Nausea and Vomiting Thiamine HCl 100 mg 01/09/21 09:00 02/05/21 10:40 Thiamine Hcl 100 Mg Tablet G-TUBE 100 mg DAILY DOMINICK Administration Allergies Allergies Allergy/AdvReac Type Severity Reaction Status Date / Time Sulfa (Sulfonamide Allergy Unknown UNKNOWN Verified 12/01/20 09:47 Antibiotics) [SULFA (SULFONAMIDE ANTIBIOTICS)] zoster vaccine live Allergy Hives Verified 12/01/20 09:47 Assessment & Plan Assessment & Plan (1) Adrenal insufficiency: Status: Acute Code(s): E27.40 - Unspecified adrenocortical insufficiency (2) Bipolar I disorder with depression, severe: Status: Acute Code(s): F31.4 - Bipolar disorder, current episode depressed, severe, without psychotic features Assessment and Plan: 80M with adrenal insufficeincy, 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
[2021-02-06] MEDS: Clotrimazole 1 % Cream 15 GM TUBE 1 APPL TOPICAL ×2 (10:55→22:02)
[2021-02-06] MEDS: Hydrocortisone 10 MG TABLET 5 MG PO (12:57)
[2021-02-06 16:30] VITALS: BP 137/80; PULSE 80; RESP 26; TEMP 36.3; O2SAT 95
[2021-02-06 21:47] LABS: Glucose, Whole Blood 137 mg/dL (60-115)
[2021-02-06 21:47] LABS: Glucose, Whole Blood 130 mg/dL (60-115)
[2021-02-06] MEDS: Mirtazapine 7.5 MG TABLET G-TUBE (21:55)
[2021-02-06] MEDS: Hydrocortisone 10 MG TABLET 2.5 MG PO (21:55)
[2021-02-06 22:00] VITALS: BP 117/70; PULSE 76; RESP 24; TEMP 36.3; O2SAT 95
[2021-02-07 06:09] VITALS: BP 130/81; PULSE 75; RESP 22; TEMP 36.5; O2SAT 96
[2021-02-07 06:20] LABS: Glucose, Whole Blood 103 mg/dL (60-115)
[2021-02-07] MEDS: FLUoxetine HCl Oral Solution 20 MG/5 ML SOLUTION 7.5 MG PO (08:33)
[2021-02-07] MEDS: Fluconazole 100 MG TABLET G-TUBE (08:33)
[2021-02-07] MEDS: Famotidine 20 MG TABLET G-TUBE (08:33)
--- NOTE | 2021-02-07 08:51 | HO.PSYCHPN ---
Subjective Subjective Date of Service: 02/07/21 Reason For Visit: severe depression Interim History: The patient's mood has improved, he even had told jokes to the staff. He is more engaged and aware of his treatment, he told me that on Monday, his family and the team will discuss discharge planning. Medication Compliance: Yes Side effects from medications: No Attending Groups: No Mental Status Exam Mental Status Exam Patient Appearance: Well Grooomed Patient Orientation: Person, Place, Time and Situation Level of Consciousness: Awake and Appropriate Patient Behavior: Appropriate Mood Description: Calm Affect Description: Constricted Patient Cognition Impaired: No Ability to Follow Directions: Good Speech Pattern: Clear Thought Process: Goal Oriented Thought Content: positive for Intact Judgement: Fair Diagnostics Vital Signs (24Hr): Vital Signs - 24 hr 02/06/21 16:30 02/06/21 22:00 02/07/21 06:09 Temperature 97.4 F 97.3 F 97.7 F Pulse Rate 80 76 75 Respiratory Rate 26 H 24 H 22 H Blood Pressure 137/80 117/70 130/81 Pulse Oximetry 95 95 96 Body Mass Index 18.4 Labs Results: 01/15/21 14:51 02/04/21 08:57 Labs: Laboratory Results - last 48 hr 02/05/21 02/05/21 02/06/21 18:17 20:10 06:25 POC Glucose 134 H 148 H 81 02/06/21 02/06/21 02/07/21 16:40 21:30 05:57 POC Glucose 137 H 130 H 103 Imaging Radiology Impressions: ITS Impressions Modified Barium Swallow 01/07/21 14:15 IMPRESSION: Laryngeal penetration and occasional aspiration as described above. Please refer to speech pathology report for details. Chest X-Ray 01/10/21 09:11 IMPRESSION: Severe chronic interstitial lung disease. No evidence of acute superimposed pneumonitis. Medications Medications Current Medications Generic Name Dose Route Start Last Admin Trade Name Freq PRN Reason Stop Dose Admin Acetaminophen 650 mg 01/09/21 15:51 02/01/21 09:10 Acetaminophen 325 Mg Tablet G-TUBE 650 mg Q4H PRN Administration Pain, Mild (Pain Scale 1-3) Al Hydroxide/Mg Hydroxide 30 ml 01/08/21 15:46 Magnesium Hydrox/Alum Hydrox 30 Ml Oral.Susp G-TUBE Q4H PRN Dyspepsia Amphetamine/Dextroamphetamine 5 mg 02/01/21 13:00 02/06/21 12:57 Amphetamine Mixed Salts 10 Mg Tablet G-TUBE 5 mg BID@0800,1300 DOMINICK Administration Budesonide 2 puff 12/31/20 20:00 02/06/21 22:01 Budesonide 180 Mcg Aer.Pow.Ba INHALE 2 puff RBID DOMINICK Administration Clotrimazole 1 appl 01/06/21 21:00 02/06/21 22:02 Clotrimazole 1 % Cream 15 Gm Tube TOPICAL 1 appl BID DOMINICK Administration Protocol Famotidine 20 mg 01/09/21 09:00 02/06/21 09:38 Famotidine 20 Mg Tablet G-TUBE 20 mg DAILY DOMINICK Administration Fluconazole 100 mg 02/04/21 18:00 02/06/21 09:37 Fluconazole 100 Mg Tablet G-TUBE 100 mg DAILY DOMINICK Administration Fluoxetine HCl 7.5 mg 02/02/21 09:00 02/06/21 09:39 Fluoxetine Hcl Oral Solution 20 Mg/5 Ml Solution PO 7.5 mg DAILY DOMINICK Administration Hydrocortisone 2.5 mg 01/23/21 19:00 02/06/21 21:55 Hydrocortisone 10 Mg Tablet PO 2.5 mg DAILY@1900 DOMINICK Administration Hydrocortisone 5 mg 01/23/21 13:00 02/06/21 12:57 Hydrocortisone 10 Mg Tablet PO 5 mg DAILY@1300 DOMINICK Administration Hydrocortisone 10 mg 01/28/21 08:00 02/06/21 09:37 Hydrocortisone 10 Mg Tablet PO 10 mg DAILY@0800 DOMINICK Administration Mirtazapine 7.5 mg 01/14/21 21:00 02/06/21 21:55 Mirtazapine 7.5 Mg Tablet G-TUBE 7.5 mg BEDTIME DOMINICK Administration Omeprazole 40 mg 01/08/21 16:30 02/07/21 06:36 Omeprazole 20 Mg/10 Ml Susp.Recon G-TUBE 40 mg BID@0630,1630 DOMINICK Administration Prochlorperazine Edisylate 5 mg 12/31/20 23:21 01/06/21 09:42 Prochlorperazine Edisylate 10 Mg/2 Ml Vial IM 5 mg Q6H PRN Administration Nausea and Vomiting Thiamine HCl 100 mg 01/09/21 09:00 02/06/21 09:36 Thiamine Hcl 100 Mg Tablet G-TUBE 100 mg DAILY DOMINICK Administration Allergies Allergies Allergy/AdvReac Type Severity Reaction Status Date / Time Sulfa (Sulfonamide Allergy Unknown UNKNOWN Verified 12/01/20 09:47 Antibiotics) [SULFA (SULFONAMIDE ANTIBIOTICS)] zoster vaccine live Allergy Hives Verified 12/01/20 09:47 Assessment & Plan Assessment & Plan (1) Adrenal insufficiency: Status: Acute Code(s): E27.40 - Unspecified adrenocortical insufficiency (2) Bipolar I disorder with depression, severe: Status: Acute Code(s): F31.4 - Bipolar disorder, current episode depressed, severe, without psychotic features Assessment and Plan: 80M with adrenal insufficeincy, 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
[2021-02-07] MEDS: Amphetamine Mixed Salts 10 MG TABLET 5 MG G-TUBE ×2 (09:04→13:37)
[2021-02-07] MEDS: Hydrocortisone 10 MG TABLET PO (09:04)
[2021-02-07] MEDS: Budesonide 180 MCG AER.POW.BA 2 PUFF INHALE ×2 (09:09→19:56)
[2021-02-07] MEDS: Clotrimazole 1 % Cream 15 GM TUBE 1 APPL TOPICAL ×2 (09:12→19:56)
[2021-02-07] MEDS: Thiamine HCL 100 MG TABLET G-TUBE (09:15)
[2021-02-07 11:53] LABS: Glucose, Whole Blood 127 mg/dL (60-115)
[2021-02-07] MEDS: Hydrocortisone 10 MG TABLET 5 MG PO (13:37)
[2021-02-07 16:30] LABS: Glucose, Whole Blood 158 mg/dL (60-115)
[2021-02-07] MEDS: Hydrocortisone 10 MG TABLET 2.5 MG PO (18:09)
[2021-02-07] MEDS: Mirtazapine 7.5 MG TABLET G-TUBE (19:56)
[2021-02-07 20:09] LABS: Glucose, Whole Blood 142 mg/dL (60-115)
[2021-02-07 21:25] VITALS: BP 140/70; PULSE 73; RESP 20; TEMP 36.4; O2SAT 95
[2021-02-08 05:58] VITALS: BP 133/81; PULSE 72; RESP 24; TEMP 36.3; O2SAT 95
[2021-02-08 06:06] LABS: Glucose, Whole Blood 89 mg/dL (60-115)
[2021-02-08 08:40] VITALS: BP 134/73; PULSE 69; RESP 26; TEMP 36.3; O2SAT 96
[2021-02-08] MEDS: Hydrocortisone 10 MG TABLET PO (08:42)
[2021-02-08] MEDS: FLUoxetine HCl Oral Solution 20 MG/5 ML SOLUTION 7.5 MG PO (08:42)
[2021-02-08] MEDS: Thiamine HCL 100 MG TABLET G-TUBE (08:42)
[2021-02-08] MEDS: Amphetamine Mixed Salts 10 MG TABLET 5 MG G-TUBE ×2 (08:42→13:10)
[2021-02-08] MEDS: Famotidine 20 MG TABLET G-TUBE (08:42)
[2021-02-08] MEDS: Fluconazole 100 MG TABLET G-TUBE (08:43)
[2021-02-08] MEDS: Budesonide 180 MCG AER.POW.BA 2 PUFF INHALE ×2 (08:49→19:11)
--- NOTE | 2021-02-08 08:59 | HO.PSYCHPN ---
Subjective Subjective Date of Service: 02/08/21 Reason For Visit: severe depression Interim History: The patient denies new symptoms, doing well, no exacerbation of dysphoria. Nursing staff reported that his PEG is working fine and VS stable. Medication Compliance: Yes Side effects from medications: No Attending Groups: No Mental Status Exam Mental Status Exam Patient Appearance: Well Grooomed Patient Orientation: Person, Place, Time and Situation Level of Consciousness: Awake Patient Behavior: Appropriate Mood Description: Calm Affect Description: Calm and Appropriate Patient Cognition Impaired: No Ability to Follow Directions: Good Speech Pattern: Clear Memory Description: Intact Hallucinations: None Delusions: Not Present Thought Process: Goal Oriented Thought Content: positive for Intact Judgement: Fair Diagnostics Vital Signs (24Hr): Vital Signs - 24 hr 02/07/21 21:25 02/08/21 05:58 02/08/21 08:40 Temperature 97.6 F 97.3 F 97.3 F Pulse Rate 73 72 69 Respiratory Rate 20 24 H 26 H Blood Pressure 140/70 H 133/81 134/73 Pulse Oximetry 95 95 96 Body Mass Index 18.4 Labs Results: 01/15/21 14:51 02/04/21 08:57 Labs: Laboratory Results - last 48 hr 02/06/21 02/06/21 02/07/21 16:40 21:30 05:57 POC Glucose 137 H 130 H 103 02/07/21 02/07/21 02/07/21 11:30 16:23 20:01 POC Glucose 127 H 158 H 142 H 02/08/21 05:35 POC Glucose 89 Imaging Radiology Impressions: ITS Impressions Modified Barium Swallow 01/07/21 14:15 IMPRESSION: Laryngeal penetration and occasional aspiration as described above. Please refer to speech pathology report for details. Chest X-Ray 01/10/21 09:11 IMPRESSION: Severe chronic interstitial lung disease. No evidence of acute superimposed pneumonitis. Medications Medications Current Medications Generic Name Dose Route Start Last Admin Trade Name Freq PRN Reason Stop Dose Admin Acetaminophen 650 mg 01/09/21 15:51 02/01/21 09:10 Acetaminophen 325 Mg Tablet G-TUBE 650 mg Q4H PRN Administration Pain, Mild (Pain Scale 1-3) Al Hydroxide/Mg Hydroxide 30 ml 01/08/21 15:46 Magnesium Hydrox/Alum Hydrox 30 Ml Oral.Susp G-TUBE Q4H PRN Dyspepsia Amphetamine/Dextroamphetamine 5 mg 02/01/21 13:00 02/07/21 13:37 Amphetamine Mixed Salts 10 Mg Tablet G-TUBE 5 mg BID@0800,1300 DOMINICK Administration Budesonide 2 puff 12/31/20 20:00 02/07/21 19:56 Budesonide 180 Mcg Aer.Pow.Ba INHALE 2 puff RBID DOMINICK Administration Clotrimazole 1 appl 01/06/21 21:00 02/07/21 19:56 Clotrimazole 1 % Cream 15 Gm Tube TOPICAL 1 appl BID DOMINICK Administration Protocol Famotidine 20 mg 01/09/21 09:00 02/07/21 08:33 Famotidine 20 Mg Tablet G-TUBE 20 mg DAILY DOMINICK Administration Fluconazole 100 mg 02/04/21 18:00 02/07/21 08:33 Fluconazole 100 Mg Tablet G-TUBE 100 mg DAILY DOMINICK Administration Fluoxetine HCl 7.5 mg 02/02/21 09:00 02/07/21 08:33 Fluoxetine Hcl Oral Solution 20 Mg/5 Ml Solution PO 7.5 mg DAILY DOMINICK Administration Hydrocortisone 2.5 mg 01/23/21 19:00 02/07/21 18:09 Hydrocortisone 10 Mg Tablet PO 2.5 mg DAILY@1900 DOMINICK Administration Hydrocortisone 5 mg 01/23/21 13:00 02/07/21 13:37 Hydrocortisone 10 Mg Tablet PO 5 mg DAILY@1300 DOMINICK Administration Hydrocortisone 10 mg 01/28/21 08:00 02/07/21 09:04 Hydrocortisone 10 Mg Tablet PO 10 mg DAILY@0800 DOMINICK Administration Mirtazapine 7.5 mg 01/14/21 21:00 02/07/21 19:56 Mirtazapine 7.5 Mg Tablet G-TUBE 7.5 mg BEDTIME DOMINICK Administration Omeprazole 40 mg 01/08/21 16:30 02/08/21 05:38 Omeprazole 20 Mg/10 Ml Susp.Recon G-TUBE 40 mg BID@0630,1630 DOMINICK Administration Prochlorperazine Edisylate 5 mg 12/31/20 23:21 01/06/21 09:42 Prochlorperazine Edisylate 10 Mg/2 Ml Vial IM 5 mg Q6H PRN Administration Nausea and Vomiting Thiamine HCl 100 mg 01/09/21 09:00 02/07/21 09:15 Thiamine Hcl 100 Mg Tablet G-TUBE 100 mg DAILY DOMINICK Administration Allergies Allergies Allergy/AdvReac Type Severity Reaction Status Date / Time Sulfa (Sulfonamide Allergy Unknown UNKNOWN Verified 12/01/20 09:47 Antibiotics) [SULFA (SULFONAMIDE ANTIBIOTICS)] zoster vaccine live Allergy Hives Verified 12/01/20 09:47 Assessment & Plan Assessment & Plan (1) Adrenal insufficiency: Status: Acute Code(s): E27.40 - Unspecified adrenocortical insufficiency (2) Bipolar I disorder with depression, severe: Status: Acute Code(s): F31.4 - Bipolar disorder, current episode depressed, severe, without psychotic features Assessment and Plan: 80M with adrenal insufficeincy, 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 Plan: Keep same treatment Greater than 50% of the session was spent on counseling and/or coordination of care Reason for contiued inpatient stay Substantial Risk for: inability to function, rapid decompensation and med/psych decompensation
[2021-02-08 11:57] LABS: Glucose, Whole Blood 114 mg/dL (60-115)
[2021-02-08] MEDS: Hydrocortisone 10 MG TABLET 5 MG PO (13:10)
[2021-02-08 13:36] VITALS: BP 143/79; PULSE 73; RESP 22; TEMP 36.4; O2SAT 97
--- NOTE | 2021-02-08 15:44 | MHC.CLN ---
F/U NO NEW LABS LAST KNOWN WT 118# (02/06/21), 109# (02/05/21) NOTED PT RECEIVING NYSTATIN FOR THRUSH PT CURRENTLY RECEIVING OSMOLITE 1.5 AT MAX GOAL RATE 100CC/HR CONTINUOUS FROM 9AM-9PM PROVIDES 1800KCALS (35KCALS/KG), 75G PROTEIN (1.5G/KG), 914CC FREE WATER FROM FORMULA. TF MEETS 100% RDI FLUID RESTRICTION 1L PER DAY 01/22/21 PER NEPHROLOGY MONITOR TOLERANCE, RESIDUALS AND LYTES OBTAIN CURRENT WEIGHT FOLLOWING
[2021-02-08 18:37] LABS: Glucose, Whole Blood 143 mg/dL (60-115)
[2021-02-08] MEDS: Hydrocortisone 10 MG TABLET 2.5 MG PO (19:10)
[2021-02-08 19:34] VITALS: BP 143/75; PULSE 76; TEMP -71.8; TEMP -97.3; O2SAT 96
[2021-02-08] MEDS: Clotrimazole 1 % Cream 15 GM TUBE 1 APPL TOPICAL (21:45)
[2021-02-08] MEDS: Mirtazapine 7.5 MG TABLET G-TUBE (21:58)
--- NOTE | 2021-02-08 23:27 | PC.NURSE ---
Patient very tired due to the activities of the day. He was asleep so HS POC was not done.
[2021-02-09 06:27] LABS: Glucose, Whole Blood 81 mg/dL (60-115)
[2021-02-09] MEDS: Amphetamine Mixed Salts 10 MG TABLET 5 MG G-TUBE ×2 (08:24→14:30)
[2021-02-09] MEDS: Fluconazole 100 MG TABLET G-TUBE (08:24)
[2021-02-09] MEDS: Thiamine HCL 100 MG TABLET G-TUBE (08:24)
[2021-02-09] MEDS: Famotidine 20 MG TABLET G-TUBE (08:24)
[2021-02-09] MEDS: Hydrocortisone 10 MG TABLET PO (08:24)
[2021-02-09] MEDS: FLUoxetine HCl Oral Solution 20 MG/5 ML SOLUTION 7.5 MG PO (08:25)
[2021-02-09] MEDS: Clotrimazole 1 % Cream 15 GM TUBE 1 APPL TOPICAL (08:26)
[2021-02-09] MEDS: Budesonide 180 MCG AER.POW.BA 2 PUFF INHALE ×2 (08:26→22:09)
[2021-02-09 12:12] LABS: Glucose, Whole Blood 143 mg/dL (60-115)
[2021-02-09] MEDS: Hydrocortisone 10 MG TABLET 5 MG PO (14:30)
[2021-02-09 17:48] LABS: Glucose, Whole Blood 151 mg/dL (60-115)
--- NOTE | 2021-02-09 21:43 | HO.PSYCHPN ---
Subjective Subjective Date of Service: 02/09/21 Reason For Visit: severe depression Subjective Notes: Conditional Voluntary Healthcare Proxy: Yes Guardianship: No Interim History: Patient seen extensively with medical staff and family. Patient feels improved generally with ECT family feels he is improving had the was extensive discussion regarding discharge planning to rehab setting mood depressed flat but improved mood and energy Medication Compliance: Yes Mental Status Exam Mental Status Exam Patient Appearance: Well Grooomed Patient Orientation: Person, Place, Time and Situation Level of Consciousness: Awake Patient Behavior: Appropriate Mood Description: Calm Affect Description: Calm and Appropriate Patient Cognition Impaired: No Ability to Follow Directions: Good Speech Pattern: Clear Memory Description: Intact Hallucinations: None Delusions: Not Present Thought Process: Goal Oriented Thought Content: positive for Intact Judgement: Fair Diagnostics Vital Signs (24Hr): Body Mass Index 18.4 Labs Results: 01/15/21 14:51 02/04/21 08:57 Labs: Laboratory Results - last 48 hr 02/08/21 02/08/21 02/08/21 05:35 11:53 17:12 POC Glucose 89 114 143 H 02/09/21 02/09/21 02/09/21 06:09 12:05 17:33 POC Glucose 81 143 H 151 H Imaging Radiology Impressions: ITS Impressions Modified Barium Swallow 01/07/21 14:15 IMPRESSION: Laryngeal penetration and occasional aspiration as described above. Please refer to speech pathology report for details. Chest X-Ray 01/10/21 09:11 IMPRESSION: Severe chronic interstitial lung disease. No evidence of acute superimposed pneumonitis. Medications Medications Current Medications Generic Name Dose Route Start Last Admin Trade Name Freq PRN Reason Stop Dose Admin Acetaminophen 650 mg 01/09/21 15:51 02/01/21 09:10 Acetaminophen 325 Mg Tablet G-TUBE 650 mg Q4H PRN Administration Pain, Mild (Pain Scale 1-3) Al Hydroxide/Mg Hydroxide 30 ml 01/08/21 15:46 Magnesium Hydrox/Alum Hydrox 30 Ml Oral.Susp G-TUBE Q4H PRN Dyspepsia Amphetamine/Dextroamphetamine 5 mg 02/01/21 13:00 02/09/21 14:30 Amphetamine Mixed Salts 10 Mg Tablet G-TUBE 5 mg BID@0800,1300 DOMINICK Administration Budesonide 2 puff 12/31/20 20:00 02/09/21 08:26 Budesonide 180 Mcg Aer.Pow.Ba INHALE 2 puff RBID DOMINICK Administration Clotrimazole 1 appl 01/06/21 21:00 02/09/21 08:26 Clotrimazole 1 % Cream 15 Gm Tube TOPICAL 1 appl BID DOMINICK Administration Protocol Famotidine 20 mg 01/09/21 09:00 02/09/21 08:24 Famotidine 20 Mg Tablet G-TUBE 20 mg DAILY DOMINICK Administration Fluconazole 100 mg 02/04/21 18:00 02/09/21 08:24 Fluconazole 100 Mg Tablet G-TUBE 100 mg DAILY DOMINICK Administration Fluoxetine HCl 7.5 mg 02/02/21 09:00 02/09/21 08:25 Fluoxetine Hcl Oral Solution 20 Mg/5 Ml Solution PO 7.5 mg DAILY DOMINICK Administration Hydrocortisone 2.5 mg 01/23/21 19:00 02/08/21 19:10 Hydrocortisone 10 Mg Tablet PO 2.5 mg DAILY@1900 DOMINICK Administration Hydrocortisone 5 mg 01/23/21 13:00 02/09/21 14:30 Hydrocortisone 10 Mg Tablet PO 5 mg DAILY@1300 DOMINICK Administration Hydrocortisone 10 mg 01/28/21 08:00 02/09/21 08:24 Hydrocortisone 10 Mg Tablet PO 10 mg DAILY@0800 DOMINICK Administration Mirtazapine 7.5 mg 01/14/21 21:00 02/08/21 21:58 Mirtazapine 7.5 Mg Tablet G-TUBE 7.5 mg BEDTIME DOMINICK Administration Omeprazole 40 mg 01/08/21 16:30 02/09/21 16:45 Omeprazole 20 Mg/10 Ml Susp.Recon G-TUBE 40 mg BID@0630,1630 DOMINICK Administration Prochlorperazine Edisylate 5 mg 12/31/20 23:21 01/06/21 09:42 Prochlorperazine Edisylate 10 Mg/2 Ml Vial IM 5 mg Q6H PRN Administration Nausea and Vomiting Thiamine HCl 100 mg 01/09/21 09:00 02/09/21 08:24 Thiamine Hcl 100 Mg Tablet G-TUBE 100 mg DAILY DOMINICK Administration Allergies Allergies Allergy/AdvReac Type Severity Reaction Status Date / Time Sulfa (Sulfonamide Allergy Unknown UNKNOWN Verified 12/01/20 09:47 Antibiotics) [SULFA (SULFONAMIDE ANTIBIOTICS)] zoster vaccine live Allergy Hives Verified 12/01/20 09:47 Assessment & Plan Assessment & Plan (1) Adrenal insufficiency: Status: Acute Code(s): E27.40 - Unspecified adrenocortical insufficiency (2) Bipolar I disorder with depression, severe: Status: Acute Code(s): F31.4 - Bipolar disorder, current episode depressed, severe, without psychotic features Assessment and Plan: 80M with adrenal insufficeincy, 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 Plan: Keep same treatment continue ECT consider referral to rehab setting Greater than 50% of the session was spent on counseling and/or coordination of care Reason for contiued inpatient stay Substantial Risk for: inability to function, rapid decompensation and med/psych decompensation
[2021-02-09] MEDS: Mirtazapine 7.5 MG TABLET G-TUBE (22:12)
[2021-02-10] VITALS (7 sets, daily range): BP systolic 117–154; BP diastolic 70–91; PULSE 71–83; RESP 17–22; TEMP 36.7–36.8; O2SAT 94–97; BMI 20.9
[2021-02-10 05:52] LABS: Glucose, Whole Blood 95 mg/dL (60-115)
--- NOTE | 2021-02-10 08:04 | HO.ANESPROP2 ---
[facility] Active Problems Active Problems: All Active Problems (Updated 01/22/21 @ 13:04 by Nile Quezada MD) Adrenal insufficiency (Acute) Severe protein-calorie malnutrition (Acute) Severe malnutrition (Acute) Chronic respiratory failure (Acute) Hyponatremia (Acute) Dysphagia (Acute) Metabolic encephalopathy (Acute) Pneumonia (Acute) Hypotension (Acute) Swallowing dysfunction (Acute) Increased oxygen demand (Acute) Pulmonary fibrosis (Acute) Bipolar I disorder with depression, severe (Acute) CKD (chronic kidney disease) stage 3, GFR 30-59 ml/min (Acute) Bipolar disorder (Acute) Past Medical History Medical History Anemia Anxiety Bronchiectasis Cerebrovascular disease Chronic hyponatremia Chronic respiratory failure CKD (chronic kidney disease) stage 3, GFR 30-59 ml/min Degenerative arthritis Depression History of electroconvulsive therapy Hx of bladder cancer Hydrocele Pulmonary fibrosis Pulmonary fibrosis Family History Family History Father Colon cancer Family history of problems with anesthesia: No Surgical History Surgical History History of bladder surgery History of Problems with Anesthesia: Yes (N&V) Social History Social History Household Members: Spouse Housing: Apartment Do you presently have visiting nurse or other home services: Yes Unable to assess alcohol history related to: Unable to respond and Unknown Cigarette Packs Per Day: 1 Cigarettes Per Day: 20.0 Years Smoked: 20 Smoked in Last 30 Days: No Patient Interested in Nicotine Replacement: No Patient Given Instructions on How to Stop Smoking: No Second Hand Smoke Exposure: No Use of substances other than those prescribed or required for medical reasons: No Substance Use Type: Marijuana Currently Displaying Signs/Symptoms of Drug Intoxication Withdrawal: No Spiritual Healthcare Practices: none Christianity Healthcare Practices: none Cultural Healthcare Practices: none Are you DNR?: No Advance Directives: Yes Advance Directives on File: Yes Advance Directives Date on File: 11/27/20 Do you have thoughts of harming others: None Do you have a plan to hurt others: No Plan Recently lost weight without trying: Yes How much weight loss: 2-13 pounds Eating poorly because of decreased appetite: Yes Nutrition screen score: 4 Nutrition Risks: Emaciation/Cachexia Poor oral hygiene: No service: No Current occupational status: retired and disabled Sexual orientation: Straight/Heterosexual Meds Allergies Allergy/AdvReac Type Severity Reaction Status Date / Time Sulfa (Sulfonamide Allergy Unknown UNKNOWN Verified 12/01/20 09:47 Antibiotics) [SULFA (SULFONAMIDE ANTIBIOTICS)] zoster vaccine live Allergy Hives Verified 12/01/20 09:47 Active Medications: Current Medications Generic Name Dose Route Start Last Admin Trade Name Freq PRN Reason Stop Dose Admin Acetaminophen 650 mg 01/09/21 15:51 02/01/21 09:10 Acetaminophen 325 Mg Tablet G-TUBE 650 mg Q4H PRN Administration Pain, Mild (Pain Scale 1-3) Al Hydroxide/Mg Hydroxide 30 ml 01/08/21 15:46 Magnesium Hydrox/Alum Hydrox 30 Ml Oral.Susp G-TUBE Q4H PRN Dyspepsia Amphetamine/Dextroamphetamine 5 mg 02/01/21 13:00 02/09/21 14:30 Amphetamine Mixed Salts 10 Mg Tablet G-TUBE 5 mg BID@0800,1300 DOMINICK Administration Budesonide 2 puff 12/31/20 20:00 02/09/21 22:09 Budesonide 180 Mcg Aer.Pow.Ba INHALE 2 puff RBID DOMINICK Administration Clotrimazole 1 appl 01/06/21 21:00 02/09/21 22:15 Clotrimazole 1 % Cream 15 Gm Tube TOPICAL Not Given BID [facility] Protocol Famotidine 20 mg 01/09/21 09:00 02/09/21 08:24 Famotidine 20 Mg Tablet G-TUBE 20 mg DAILY DOMINICK Administration Fluconazole 100 mg 02/04/21 18:00 02/09/21 08:24 Fluconazole 100 Mg Tablet G-TUBE 100 mg DAILY DOMINICK Administration Fluoxetine HCl 7.5 mg 02/02/21 09:00 02/09/21 08:25 Fluoxetine Hcl Oral Solution 20 Mg/5 Ml Solution PO 7.5 mg DAILY DOMINICK Administration Hydrocortisone 2.5 mg 01/23/21 19:00 02/09/21 22:14 Hydrocortisone 10 Mg Tablet PO Not Given DAILY@1900 DOMINICK Hydrocortisone 5 mg 01/23/21 13:00 02/09/21 14:30 Hydrocortisone 10 Mg Tablet PO 5 mg DAILY@1300 DOMINICK Administration Hydrocortisone 10 mg 01/28/21 08:00 02/09/21 08:24 Hydrocortisone 10 Mg Tablet PO 10 mg DAILY@0800 DOMINICK Administration Mirtazapine 7.5 mg 01/14/21 21:00 02/09/21 22:12 Mirtazapine 7.5 Mg Tablet G-TUBE 7.5 mg BEDTIME DOMINICK Administration Omeprazole 40 mg 01/08/21 16:30 02/09/21 16:45 Omeprazole 20 Mg/10 Ml Susp.Recon G-TUBE 40 mg BID@0630,1630 DOMINICK Administration Prochlorperazine Edisylate 5 mg 12/31/20 23:21 01/06/21 09:42 Prochlorperazine Edisylate 10 Mg/2 Ml Vial IM 5 mg Q6H PRN Administration Nausea and Vomiting Thiamine HCl 100 mg 01/09/21 09:00 02/09/21 08:24 Thiamine Hcl 100 Mg Tablet G-TUBE 100 mg DAILY DOMINICK Administration Home Medications Medication Instructions Recorded Confirmed Last Taken Type Latuda 1 tab PO DAILY 11/25/20 12/31/20 11/25/20 History Ofev 150 mg PO BID 11/25/20 12/31/20 11/25/20 History docusate sodium [Stool Softener] 1 cap PO BID PRN 11/25/20 12/31/20 11/25/20 History lorazepam 1 tab PO BID PRN 11/25/20 12/31/20 11/25/20 History mirtazapine 1 tab PO BEDTIME 11/25/20 12/31/20 11/24/20 History ondansetron 1 tab PO Q8H PRN 11/25/20 12/31/20 Unknown History quetiapine 37.5 mg PO BEDTIME 11/25/20 12/31/20 11/24/20 History Exam Exam Date and Time: February 10, 2021 0804 Height,Weight and Vital Signs: Height 5 ft 7 in Weight 53.524 kg Last Vital Signs Temp 98.1 F 02/10/21 05:51 Pulse 80 02/10/21 05:51 Resp 22 H 02/10/21 05:51 BP 128/87 02/10/21 05:51 Pulse Ox 95 02/10/21 05:51 Pertinent Lab Results Pertinent Lab Results: Laboratory Tests 01/01/21 01/05/21 01/08/21 14:34 15:05 07:46 WBC 10.6 RBC 3.17 L Hgb 10.0 L Hct 29.4 L MCV 92.7 MCH 31.5 MCHC 34.0 RDW 15.3 Plt Count 319 MPV 10.7 Immature Gran % (Auto) Neut % (Auto) Lymph % (Auto) [place] % (Auto) Eos % (Auto) Baso % (Auto) Lymph # (Auto) [place] # (Auto) Eos # (Auto) Baso # (Auto) Abs Immat Gran (auto) Absolute Neuts (auto) Absolute Nucleated RBC 0.000 Nucleated RBC % (auto) 0.0 Smear Tech's Comments PT INR D-Dimer O2 Saturation ABG pH at Pt Temp ABG pH (Temp Correct) ABG pCO2 at Pt Temp ABG pCO2 (Temp Corrct ABG pO2 at Pt Temp ABG pO2 (Temp Correct ABG HCO3 ABG Base Excess (Actual) Sodium 132 L 131 L Potassium 5.2 H 5.1 Chloride 97 96 Carbon Dioxide 27 26 Anion Gap 13 14 BUN 25 H Creatinine 1.00 Estim Creat Clear Calc 45.7 Estimated GFR > 60 POC Glucose Random Glucose 145 H D Fasting Glucose Estimat Average Glucose Hemoglobin A1c % Calcium 9.2 Phosphorus Magnesium Total Bilirubin 0.5 AST 36 D ALT 29 Alkaline Phosphatase 137 H D Troponin I High Sens Total Protein 6.7 D Albumin 3.1 L D Cortisol Baseline Cortisol 30 Minute Cortisol 60 Minute ACTH Resp to [facility] Cortisol Sreekanth Time 1 Cortisol Sreekanth Time 2 Cortisol Sreekanth Time 3 ACTH Comment 01/08/21 01/09/21 01/10/21 07:46 07:12 09:26 WBC 18.1 H RBC 3.44 L Hgb 10.9 L Hct 31.8 L MCV 92.4 MCH 31.7 MCHC 34.3 RDW 15.2 Plt Count 347 MPV 10.8 Immature Gran % (Auto) Neut % (Auto) Lymph % (Auto) [place] % (Auto) Eos % (Auto) Baso % (Auto) Lymph # (Auto) [place] # (Auto) Eos # (Auto) Baso # (Auto) Abs Immat Gran (auto) Absolute Neuts (auto) Absolute Nucleated RBC 0.000 Nucleated RBC % (auto) 0.0 Smear Tech's Comments PT 13.5 H INR 1.1 D-Dimer 994 O2 Saturation ABG pH at Pt Temp ABG pH (Temp Correct) ABG pCO2 at Pt Temp ABG pCO2 (Temp Corrct ABG pO2 at Pt Temp ABG pO2 (Temp Correct ABG HCO3 ABG Base Excess (Actual) Sodium Potassium Chloride Carbon Dioxide Anion Gap BUN Creatinine Estim Creat Clear Calc Estimated GFR POC Glucose Random Glucose Fasting Glucose Estimat Average Glucose Hemoglobin A1c % Calcium Phosphorus Magnesium Total Bilirubin AST ALT Alkaline Phosphatase Troponin I High Sens Total Protein Albumin Cortisol Baseline Cortisol 30 Minute Cortisol 60 Minute ACTH Resp to [place] Cortisol Sreekanth Time 1 Cortisol Sreekanth Time 2 Cortisol Sreekanth Time 3 ACTH Comment 01/10/21 01/10/21 01/10/21 09:26 09:26 09:28 WBC 22.2 H RBC 3.38 L Hgb 10.8 L Hct 31.2 L MCV 92.3 MCH 32.0 MCHC 34.6 RDW 15.1 Plt Count 311 MPV 10.4 Immature Gran % (Auto) 0.5 H Neut % (Auto) 84.9 H Lymph % (Auto) 7.4 L [place] % (Auto) 7.1 Eos % (Auto) 0.0 Baso % (Auto) 0.1 Lymph # (Auto) 1.6 [place] # (Auto) 1.6 H Eos # (Auto) 0.0 Baso # (Auto) 0.0 Abs Immat Gran (auto) 0.12 H Absolute Neuts (auto) 18.8 H Absolute Nucleated RBC 0.000 Nucleated RBC % (auto) 0.0 Smear Tech's Comments VERIFIED PT INR D-Dimer O2 Saturation ABG pH at Pt Temp ABG pH (Temp Correct) ABG pCO2 at Pt Temp ABG pCO2 (Temp Corrct ABG pO2 at Pt Temp ABG pO2 (Temp Correct ABG HCO3 ABG Base Excess (Actual) Sodium 130 L Potassium 4.1 Chloride 95 L Carbon Dioxide 31 H Anion Gap 8 L BUN 18 H Creatinine 0.83 Estim Creat Clear Calc 53.1 Estimated GFR > 60 POC Glucose Random Glucose 151 H Fasting Glucose Estimat Average Glucose Hemoglobin A1c % Calcium 8.3 L D Phosphorus Magnesium Total Bilirubin AST ALT Alkaline Phosphatase Troponin I High Sens 14.4 D Total Protein Albumin Cortisol Baseline Cortisol 30 Minute Cortisol 60 Minute ACTH Resp to [place] Cortisol Sreekanth Time 1 Cortisol Sreekanth Time 2 Cortisol Sreekanth Time 3 ACTH Comment 01/10/21 01/13/21 01/15/21 09:49 07:56 14:51 WBC 11.2 H RBC 3.37 L Hgb 10.6 L Hct 31.9 L MCV 94.7 MCH 31.5 MCHC 33.2 RDW 15.5 Plt Count 382 MPV 10.7 Immature Gran % (Auto) 0.5 H Neut % (Auto) 79.8 H Lymph % (Auto) 13.3 L [place] % (Auto) 5.8 Eos % (Auto) 0.4 Baso % (Auto) 0.2 Lymph # (Auto) 1.5 [place] # (Auto) 0.7 Eos # (Auto) 0.1 Baso # (Auto) 0.0 Abs Immat Gran (auto) 0.06 H Absolute Neuts (auto) 8.9 H Absolute Nucleated RBC 0.000 Nucleated RBC % (auto) 0.0 Smear Tech's Comments PT INR D-Dimer O2 Saturation 98.0 ABG pH at Pt Temp 7.49 H ABG pH (Temp Correct) 7.49 H ABG pCO2 at Pt Temp 40 ABG pCO2 (Temp Corrct 40 ABG pO2 at Pt Temp 99 ABG pO2 (Temp Correct 101 ABG HCO3 31 H ABG Base Excess (Actual) 7.4 Sodium 133 L Potassium 4.6 Chloride 95 L Carbon Dioxide 33 H Anion Gap 10 L BUN 18 H Creatinine 0.78 Estim Creat Clear Calc 57.2 Estimated GFR > 60 POC Glucose Random Glucose 132 H Fasting Glucose Estimat Average Glucose Hemoglobin A1c % Calcium 8.5 Phosphorus Magnesium Total Bilirubin 0.4 AST 27 ALT 20 Alkaline Phosphatase 150 H Troponin I High Sens Total Protein 5.9 L Albumin 2.5 L Cortisol Baseline Cortisol 30 Minute Cortisol 60 Minute ACTH Resp to [place] Cortisol Sreekanth Time 1 Cortisol Sreekanth Time 2 Cortisol Sreekanth Time 3 ACTH Comment 01/15/21 01/18/21 01/19/21 14:51 15:36 22:29 WBC RBC Hgb Hct MCV MCH MCHC RDW Plt Count MPV Immature Gran % (Auto) Neut % (Auto) Lymph % (Auto) [place] % (Auto) Eos % (Auto) Baso % (Auto) Lymph # (Auto) [place] # (Auto) Eos # (Auto) Baso # (Auto) Abs Immat Gran (auto) Absolute Neuts (auto) Absolute Nucleated RBC Nucleated RBC % (auto) Smear Tech's Comments PT INR D-Dimer O2 Saturation ABG pH at Pt Temp ABG pH (Temp Correct) ABG pCO2 at Pt Temp ABG pCO2 (Temp Corrct ABG pO2 at Pt Temp ABG pO2 (Temp Correct ABG HCO3 ABG Base Excess (Actual) Sodium 132 L 132 L Potassium 5.1 5.1 Chloride 94 L 95 L Carbon Dioxide 32 H 31 H Anion Gap 11 L 11 L BUN 22 H Creatinine 0.88 Estim Creat Clear Calc 49.0 Estimated GFR > 60 POC Glucose 112 Random Glucose 165 H Fasting Glucose Estimat Average Glucose Hemoglobin A1c % Calcium 8.8 Phosphorus 3.0 Magnesium 2.1 Total Bilirubin 0.3 AST 34 ALT 55 H Alkaline Phosphatase 174 H Troponin I High Sens Total Protein 6.4 L Albumin 2.8 L Cortisol Baseline Cortisol 30 Minute Cortisol 60 Minute ACTH Resp to [place] Cortisol Sreekanth Time 1 Cortisol Sreekanth Time 2 Cortisol Sreekanth Time 3 ACTH Comment 01/20/21 01/20/21 01/20/21 05:55 08:29 12:08 WBC RBC Hgb Hct MCV MCH MCHC RDW Plt Count MPV Immature Gran % (Auto) Neut % (Auto) Lymph % (Auto) [place] % (Auto) Eos % (Auto) Baso % (Auto) Lymph # (Auto) [place] # (Auto) Eos # (Auto) Baso # (Auto) Abs Immat Gran (auto) Absolute Neuts (auto) Absolute Nucleated RBC Nucleated RBC % (auto) Smear Tech's Comments PT INR D-Dimer O2 Saturation ABG pH at Pt Temp ABG pH (Temp Correct) ABG pCO2 at Pt Temp ABG pCO2 (Temp Corrct ABG pO2 at Pt Temp ABG pO2 (Temp Correct ABG HCO3 ABG Base Excess (Actual) Sodium Potassium Chloride Carbon Dioxide Anion Gap BUN Creatinine Estim Creat Clear Calc Estimated GFR POC Glucose 111 127 H Random Glucose Fasting Glucose Estimat Average Glucose 117 Hemoglobin A1c % 5.7 Calcium Phosphorus Magnesium Total Bilirubin AST ALT Alkaline Phosphatase Troponin I High Sens Total Protein Albumin Cortisol Baseline Cortisol 30 Minute Cortisol 60 Minute ACTH Resp to [place] Cortisol Sreekanth Time 1 Cortisol Sreekanth Time 2 Cortisol Sreekanth Time 3 ACTH Comment 01/20/21 01/20/21 01/20/21 12:32 16:53 21:21 WBC RBC Hgb Hct MCV MCH MCHC RDW Plt Count MPV Immature Gran % (Auto) Neut % (Auto) Lymph % (Auto) [place] % (Auto) Eos % (Auto) Baso % (Auto) Lymph # (Auto) [place] # (Auto) Eos # (Auto) Baso # (Auto) Abs Immat Gran (auto) Absolute Neuts (auto) Absolute Nucleated RBC Nucleated RBC % (auto) Smear Tech's Comments PT INR D-Dimer O2 Saturation ABG pH at Pt Temp ABG pH (Temp Correct) ABG pCO2 at Pt Temp ABG pCO2 (Temp Corrct ABG pO2 at Pt Temp ABG pO2 (Temp Correct ABG HCO3 ABG Base Excess (Actual) Sodium Potassium Chloride Carbon Dioxide Anion Gap BUN Creatinine Estim Creat Clear Calc Estimated GFR POC Glucose 140 H 89 Random Glucose Fasting Glucose Estimat Average Glucose Hemoglobin A1c % Calcium Phosphorus Magnesium Total Bilirubin AST ALT Alkaline Phosphatase Troponin I High Sens Total Protein Albumin Cortisol Baseline 10.3 Cortisol 30 Minute 16.3 L Cortisol 60 Minute 19.8 L ACTH Resp to [place] 1132 Cortisol Sreekanth Time 1 0829 Cortisol Sreekanth Time 2 1206 Cortisol Sreekanth Time 3 1232 ACTH Comment See Below 01/21/21 01/21/21 01/21/21 05:43 11:36 18:05 WBC RBC Hgb Hct MCV MCH MCHC RDW Plt Count MPV Immature Gran % (Auto) Neut % (Auto) Lymph % (Auto) [place] % (Auto) Eos % (Auto) Baso % (Auto) Lymph # (Auto) [place] # (Auto) Eos # (Auto) Baso # (Auto) Abs Immat Gran (auto) Absolute Neuts (auto) Absolute Nucleated RBC Nucleated RBC % (auto) Smear Tech's Comments PT INR D-Dimer O2 Saturation ABG pH at Pt Temp ABG pH (Temp Correct) ABG pCO2 at Pt Temp ABG pCO2 (Temp Corrct ABG pO2 at Pt Temp ABG pO2 (Temp Correct ABG HCO3 ABG Base Excess (Actual) Sodium Potassium Chloride Carbon Dioxide Anion Gap BUN Creatinine Estim Creat Clear Calc Estimated GFR POC Glucose 130 H 130 H 118 H Random Glucose Fasting Glucose Estimat Average Glucose Hemoglobin A1c % Calcium Phosphorus Magnesium Total Bilirubin AST ALT Alkaline Phosphatase Troponin I High Sens Total Protein Albumin Cortisol Baseline Cortisol 30 Minute Cortisol 60 Minute ACTH Resp to [place] Cortisol Sreekanth Time 1 Cortisol Sreekanth Time 2 Cortisol Sreekanth Time 3 ACTH Comment 01/21/21 01/22/21 01/22/21 20:09 05:36 12:41 WBC RBC Hgb Hct MCV MCH MCHC RDW Plt Count MPV Immature Gran % (Auto) Neut % (Auto) Lymph % (Auto) [place] % (Auto) Eos % (Auto) Baso % (Auto) Lymph # (Auto) [place] # (Auto) Eos # (Auto) Baso # (Auto) Abs Immat Gran (auto) Absolute Neuts (auto) Absolute Nucleated RBC Nucleated RBC % (auto) Smear Tech's Comments PT INR D-Dimer O2 Saturation ABG pH at Pt Temp ABG pH (Temp Correct) ABG pCO2 at Pt Temp ABG pCO2 (Temp Corrct ABG pO2 at Pt Temp ABG pO2 (Temp Correct ABG HCO3 ABG Base Excess (Actual) Sodium Potassium Chloride Carbon Dioxide Anion Gap BUN Creatinine Estim Creat Clear Calc Estimated GFR POC Glucose 100 119 H 152 H Random Glucose Fasting Glucose Estimat Average Glucose Hemoglobin A1c % Calcium Phosphorus Magnesium Total Bilirubin AST ALT Alkaline Phosphatase Troponin I High Sens Total Protein Albumin Cortisol Baseline Cortisol 30 Minute Cortisol 60 Minute ACTH Resp to [place] Cortisol Sreekanth Time 1 Cortisol Sreekanth Time 2 Cortisol Sreekanth Time 3 ACTH Comment 01/22/21 01/22/21 01/23/21 16:50 20:10 05:13 WBC RBC Hgb Hct MCV MCH MCHC RDW Plt Count MPV Immature Gran % (Auto) Neut % (Auto) Lymph % (Auto) [place] % (Auto) Eos % (Auto) Baso % (Auto) Lymph # (Auto) [place] # (Auto) Eos # (Auto) Baso # (Auto) Abs Immat Gran (auto) Absolute Neuts (auto) Absolute Nucleated RBC Nucleated RBC % (auto) Smear Tech's Comments PT INR D-Dimer O2 Saturation ABG pH at Pt Temp ABG pH (Temp Correct) ABG pCO2 at Pt Temp ABG pCO2 (Temp Corrct ABG pO2 at Pt Temp ABG pO2 (Temp Correct ABG HCO3 ABG Base Excess (Actual) Sodium Potassium Chloride Carbon Dioxide Anion Gap BUN Creatinine Estim Creat Clear Calc Estimated GFR POC Glucose 126 H 113 121 H Random Glucose Fasting Glucose Estimat Average Glucose Hemoglobin A1c % Calcium Phosphorus Magnesium Total Bilirubin AST ALT Alkaline Phosphatase Troponin I High Sens Total Protein Albumin Cortisol Baseline Cortisol 30 Minute Cortisol 60 Minute ACTH Resp to [place] Cortisol Sreekanth Time 1 Cortisol Sreekanth Time 2 Cortisol Sreekanth Time 3 ACTH Comment 01/23/21 01/23/21 01/23/21 07:49 12:01 16:52 WBC RBC Hgb Hct MCV MCH MCHC RDW Plt Count MPV Immature Gran % (Auto) Neut % (Auto) Lymph % (Auto) [place] % (Auto) Eos % (Auto) Baso % (Auto) Lymph # (Auto) [place] # (Auto) Eos # (Auto) Baso # (Auto) Abs Immat Gran (auto) Absolute Neuts (auto) Absolute Nucleated RBC Nucleated RBC % (auto) Smear Tech's Comments PT INR D-Dimer O2 Saturation ABG pH at Pt Temp ABG pH (Temp Correct) ABG pCO2 at Pt Temp ABG pCO2 (Temp Corrct ABG pO2 at Pt Temp ABG pO2 (Temp Correct ABG HCO3 ABG Base Excess (Actual) Sodium 133 L Potassium 4.6 Chloride 96 Carbon Dioxide 31 H Anion Gap 11 L BUN 20 H Creatinine 0.83 Estim Creat Clear Calc 51.9 Estimated GFR > 60 POC Glucose 122 H 137 H Random Glucose Fasting Glucose 125 H D Estimat Average Glucose Hemoglobin A1c % Calcium 8.7 Phosphorus Magnesium Total Bilirubin 0.2 AST 27 ALT 45 H Alkaline Phosphatase 154 H Troponin I High Sens Total Protein 6.1 L Albumin 2.8 L Cortisol Baseline Cortisol 30 Minute Cortisol 60 Minute ACTH Resp to [place] Cortisol Sreekanth Time 1 Cortisol Sreekanth Time 2 Cortisol Sreekanth Time 3 ACTH Comment 01/23/21 01/24/21 01/24/21 21:10 05:26 16:40 WBC RBC Hgb Hct MCV MCH MCHC RDW Plt Count MPV Immature Gran % (Auto) Neut % (Auto) Lymph % (Auto) [place] % (Auto) Eos % (Auto) Baso % (Auto) Lymph # (Auto) [place] # (Auto) Eos # (Auto) Baso # (Auto) Abs Immat Gran (auto) Absolute Neuts (auto) Absolute Nucleated RBC Nucleated RBC % (auto) Smear Tech's Comments PT INR D-Dimer O2 Saturation ABG pH at Pt Temp ABG pH (Temp Correct) ABG pCO2 at Pt Temp ABG pCO2 (Temp Corrct ABG pO2 at Pt Temp ABG pO2 (Temp Correct ABG HCO3 ABG Base Excess (Actual) Sodium Potassium Chloride Carbon Dioxide Anion Gap BUN Creatinine Estim Creat Clear Calc Estimated GFR POC Glucose 114 117 H 107 Random Glucose Fasting Glucose Estimat Average Glucose Hemoglobin A1c % Calcium Phosphorus Magnesium Total Bilirubin AST ALT Alkaline Phosphatase Troponin I High Sens Total Protein Albumin Cortisol Baseline Cortisol 30 Minute Cortisol 60 Minute ACTH Resp to [place] Cortisol Sreekanth Time 1 Cortisol Sreekanth Time 2 Cortisol Sreekanth Time 3 ACTH Comment 01/25/21 01/25/21 01/25/21 05:25 12:11 16:47 WBC RBC Hgb Hct MCV MCH MCHC RDW Plt Count MPV Immature Gran % (Auto) Neut % (Auto) Lymph % (Auto) [place] % (Auto) Eos % (Auto) Baso % (Auto) Lymph # (Auto) [place] # (Auto) Eos # (Auto) Baso # (Auto) Abs Immat Gran (auto) Absolute Neuts (auto) Absolute Nucleated RBC Nucleated RBC % (auto) Smear Tech's Comments PT INR D-Dimer O2 Saturation ABG pH at Pt Temp ABG pH (Temp Correct) ABG pCO2 at Pt Temp ABG pCO2 (Temp Corrct ABG pO2 at Pt Temp ABG pO2 (Temp Correct ABG HCO3 ABG Base Excess (Actual) Sodium Potassium Chloride Carbon Dioxide Anion Gap BUN Creatinine Estim Creat Clear Calc Estimated GFR POC Glucose 90 155 H 145 H Random Glucose Fasting Glucose Estimat Average Glucose Hemoglobin A1c % Calcium Phosphorus Magnesium Total Bilirubin AST ALT Alkaline Phosphatase Troponin I High Sens Total Protein Albumin Cortisol Baseline Cortisol 30 Minute Cortisol 60 Minute ACTH Resp to [place] Cortisol Sreekanth Time 1 Cortisol Sreekanth Time 2 Cortisol Sreekanth Time 3 ACTH Comment 01/25/21 01/26/21 01/26/21 19:59 05:53 16:28 WBC RBC Hgb Hct MCV MCH MCHC RDW Plt Count MPV Immature Gran % (Auto) Neut % (Auto) Lymph % (Auto) [place] % (Auto) Eos % (Auto) Baso % (Auto) Lymph # (Auto) [place] # (Auto) Eos # (Auto) Baso # (Auto) Abs Immat Gran (auto) Absolute Neuts (auto) Absolute Nucleated RBC Nucleated RBC % (auto) Smear Tech's Comments PT INR D-Dimer O2 Saturation ABG pH at Pt Temp ABG pH (Temp Correct) ABG pCO2 at Pt Temp ABG pCO2 (Temp Corrct ABG pO2 at Pt Temp ABG pO2 (Temp Correct ABG HCO3 ABG Base Excess (Actual) Sodium Potassium Chloride Carbon Dioxide Anion Gap BUN Creatinine Estim Creat Clear Calc Estimated GFR POC Glucose 84 124 H 123 H Random Glucose Fasting Glucose Estimat Average Glucose Hemoglobin A1c % Calcium Phosphorus Magnesium Total Bilirubin AST ALT Alkaline Phosphatase Troponin I High Sens Total Protein Albumin Cortisol Baseline Cortisol 30 Minute Cortisol 60 Minute ACTH Resp to [place] Cortisol Sreekanth Time 1 Cortisol Sreekanth Time 2 Cortisol Sreekanth Time 3 ACTH Comment 01/27/21 01/27/21 01/27/21 05:28 16:38 21:43 WBC RBC Hgb Hct MCV MCH MCHC RDW Plt Count MPV Immature Gran % (Auto) Neut % (Auto) Lymph % (Auto) [place] % (Auto) Eos % (Auto) Baso % (Auto) Lymph # (Auto) [place] # (Auto) Eos # (Auto) Baso # (Auto) Abs Immat Gran (auto) Absolute Neuts (auto) Absolute Nucleated RBC Nucleated RBC % (auto) Smear Tech's Comments PT INR D-Dimer O2 Saturation ABG pH at Pt Temp ABG pH (Temp Correct) ABG pCO2 at Pt Temp ABG pCO2 (Temp Corrct ABG pO2 at Pt Temp ABG pO2 (Temp Correct ABG HCO3 ABG Base Excess (Actual) Sodium Potassium Chloride Carbon Dioxide Anion Gap BUN Creatinine Estim Creat Clear Calc Estimated GFR POC Glucose 93 127 H 103 Random Glucose Fasting Glucose Estimat Average Glucose Hemoglobin A1c % Calcium Phosphorus Magnesium Total Bilirubin AST ALT Alkaline Phosphatase Troponin I High Sens Total Protein Albumin Cortisol Baseline Cortisol 30 Minute Cortisol 60 Minute ACTH Resp to [place] Cortisol Sreekanth Time 1 Cortisol Sreekanth Time 2 Cortisol Sreekanth Time 3 ACTH Comment 01/28/21 01/28/21 01/28/21 05:56 08:19 16:13 WBC RBC Hgb Hct MCV MCH MCHC RDW Plt Count MPV Immature Gran % (Auto) Neut % (Auto) Lymph % (Auto) [place] % (Auto) Eos % (Auto) Baso % (Auto) Lymph # (Auto) [place] # (Auto) Eos # (Auto) Baso # (Auto) Abs Immat Gran (auto) Absolute Neuts (auto) Absolute Nucleated RBC Nucleated RBC % (auto) Smear Tech's Comments PT INR D-Dimer O2 Saturation ABG pH at Pt Temp ABG pH (Temp Correct) ABG pCO2 at Pt Temp ABG pCO2 (Temp Corrct ABG pO2 at Pt Temp ABG pO2 (Temp Correct ABG HCO3 ABG Base Excess (Actual) Sodium 136 Potassium 4.7 Chloride 99 Carbon Dioxide 33 H Anion Gap 9 L BUN 22 H Creatinine 0.86 Estim Creat Clear Calc 50.1 Estimated GFR > 60 POC Glucose 117 H 142 H Random Glucose Fasting Glucose 128 H Estimat Average Glucose Hemoglobin A1c % Calcium 8.6 Phosphorus Magnesium Total Bilirubin 0.4 AST 26 ALT 38 Alkaline Phosphatase 137 H Troponin I High Sens Total Protein 5.9 L Albumin 2.7 L Cortisol Baseline Cortisol 30 Minute Cortisol 60 Minute ACTH Resp to [place] Cortisol Sreekanth Time 1 Cortisol Sreekanth Time 2 Cortisol Sreekanth Time 3 ACTH Comment 01/28/21 01/29/21 01/29/21 19:51 06:42 13:57 WBC RBC Hgb Hct MCV MCH MCHC RDW Plt Count MPV Immature Gran % (Auto) Neut % (Auto) Lymph % (Auto) [place] % (Auto) Eos % (Auto) Baso % (Auto) Lymph # (Auto) [place] # (Auto) Eos # (Auto) Baso # (Auto) Abs Immat Gran (auto) Absolute Neuts (auto) Absolute Nucleated RBC Nucleated RBC % (auto) Smear Tech's Comments PT INR D-Dimer O2 Saturation ABG pH at Pt Temp ABG pH (Temp Correct) ABG pCO2 at Pt Temp ABG pCO2 (Temp Corrct ABG pO2 at Pt Temp ABG pO2 (Temp Correct ABG HCO3 ABG Base Excess (Actual) Sodium Potassium Chloride Carbon Dioxide Anion Gap BUN Creatinine Estim Creat Clear Calc Estimated GFR POC Glucose 152 H 87 102 Random Glucose Fasting Glucose Estimat Average Glucose Hemoglobin A1c % Calcium Phosphorus Magnesium Total Bilirubin AST ALT Alkaline Phosphatase Troponin I High Sens Total Protein Albumin Cortisol Baseline Cortisol 30 Minute Cortisol 60 Minute ACTH Resp to Cosynt[facility] Cortisol Sreekanth Time 1 Cortisol Sreekanth Time 2 Cortisol Sreekanth Time 3 ACTH Comment 01/29/21 01/30/21 01/30/21 20:24 06:45 11:58 WBC RBC Hgb Hct MCV MCH MCHC RDW Plt Count MPV Immature Gran % (Auto) Neut % (Auto) Lymph % (Auto) [place] % (Auto) Eos % (Auto) Baso % (Auto) Lymph # (Auto) [place] # (Auto) Eos # (Auto) Baso # (Auto) Abs Immat Gran (auto) Absolute Neuts (auto) Absolute Nucleated RBC Nucleated RBC % (auto) Smear Tech's Comments PT INR D-Dimer O2 Saturation ABG pH at Pt Temp ABG pH (Temp Correct) ABG pCO2 at Pt Temp ABG pCO2 (Temp Corrct ABG pO2 at Pt Temp ABG pO2 (Temp Correct ABG HCO3 ABG Base Excess (Actual) Sodium Potassium Chloride Carbon Dioxide Anion Gap BUN Creatinine Estim Creat Clear Calc Estimated GFR POC Glucose 148 H 126 H 120 H Random Glucose Fasting Glucose Estimat Average Glucose Hemoglobin A1c % Calcium Phosphorus Magnesium Total Bilirubin AST ALT Alkaline Phosphatase Troponin I High Sens Total Protein Albumin Cortisol Baseline Cortisol 30 Minute Cortisol 60 Minute ACTH Resp to Cosyntrop Cortisol Sreekanth Time 1 Cortisol Sreekanth Time 2 Cortisol Sreekanth Time 3 ACTH Comment 01/30/21 01/30/21 01/31/21 16:53 21:01 06:19 WBC RBC Hgb Hct MCV MCH MCHC RDW Plt Count MPV Immature Gran % (Auto) Neut % (Auto) Lymph % (Auto) [place] % (Auto) Eos % (Auto) Baso % (Auto) Lymph # (Auto) [place] # (Auto) Eos # (Auto) Baso # (Auto) Abs Immat Gran (auto) Absolute Neuts (auto) Absolute Nucleated RBC Nucleated RBC % (auto) Smear Tech's Comments PT INR D-Dimer O2 Saturation ABG pH at Pt Temp ABG pH (Temp Correct) ABG pCO2 at Pt Temp ABG pCO2 (Temp Corrct ABG pO2 at Pt Temp ABG pO2 (Temp Correct ABG HCO3 ABG Base Excess (Actual) Sodium Potassium Chloride Carbon Dioxide Anion Gap BUN Creatinine Estim Creat Clear Calc Estimated GFR POC Glucose 113 117 H 123 H Random Glucose Fasting Glucose Estimat Average Glucose Hemoglobin A1c % Calcium Phosphorus Magnesium Total Bilirubin AST ALT Alkaline Phosphatase Troponin I High Sens Total Protein Albumin Cortisol Baseline Cortisol 30 Minute Cortisol 60 Minute ACTH Resp to Cos[employer] Cortisol Sreekanth Time 1 Cortisol Sreekanth Time 2 Cortisol Sreekanth Time 3 ACTH Comment 01/31/21 01/31/21 01/31/21 12:07 16:39 20:56 WBC RBC Hgb Hct MCV MCH MCHC RDW Plt Count MPV Immature Gran % (Auto) Neut % (Auto) Lymph % (Auto) [place] % (Auto) Eos % (Auto) Baso % (Auto) Lymph # (Auto) [place] # (Auto) Eos # (Auto) Baso # (Auto) Abs Immat Gran (auto) Absolute Neuts (auto) Absolute Nucleated RBC Nucleated RBC % (auto) Smear Tech's Comments PT INR D-Dimer O2 Saturation ABG pH at Pt Temp ABG pH (Temp Correct) ABG pCO2 at Pt Temp ABG pCO2 (Temp Corrct ABG pO2 at Pt Temp ABG pO2 (Temp Correct ABG HCO3 ABG Base Excess (Actual) Sodium Potassium Chloride Carbon Dioxide Anion Gap BUN Creatinine Estim Creat Clear Calc Estimated GFR POC Glucose 129 H 112 141 H Random Glucose Fasting Glucose Estimat Average Glucose Hemoglobin A1c % Calcium Phosphorus Magnesium Total Bilirubin AST ALT Alkaline Phosphatase Troponin I High Sens Total Protein Albumin Cortisol Baseline Cortisol 30 Minute Cortisol 60 Minute ACTH Resp to Cos[employer] Cortisol Sreekanth Time 1 Cortisol Sreekanth Time 2 Cortisol Sreekanth Time 3 ACTH Comment 02/01/21 02/01/21 02/01/21 06:23 11:35 16:46 WBC RBC Hgb Hct MCV MCH MCHC RDW Plt Count MPV Immature Gran % (Auto) Neut % (Auto) Lymph % (Auto) [place] % (Auto) Eos % (Auto) Baso % (Auto) Lymph # (Auto) [place] # (Auto) Eos # (Auto) Baso # (Auto) Abs Immat Gran (auto) Absolute Neuts (auto) Absolute Nucleated RBC Nucleated RBC % (auto) Smear Tech's Comments PT INR D-Dimer O2 Saturation ABG pH at Pt Temp ABG pH (Temp Correct) ABG pCO2 at Pt Temp ABG pCO2 (Temp Corrct ABG pO2 at Pt Temp ABG pO2 (Temp Correct ABG HCO3 ABG Base Excess (Actual) Sodium Potassium Chloride Carbon Dioxide Anion Gap BUN Creatinine Estim Creat Clear Calc Estimated GFR POC Glucose 99 95 143 H Random Glucose Fasting Glucose Estimat Average Glucose Hemoglobin A1c % Calcium Phosphorus Magnesium Total Bilirubin AST ALT Alkaline Phosphatase Troponin I High Sens Total Protein Albumin Cortisol Baseline Cortisol 30 Minute Cortisol 60 Minute ACTH Resp to Cos[place]t[employer] Cortisol Sreekanth Time 1 Cortisol Sreekanth Time 2 Cortisol Sreekanth Time 3 ACTH Comment 02/01/21 02/02/21 02/02/21 21:31 05:31 12:13 WBC RBC Hgb Hct MCV MCH MCHC RDW Plt Count MPV Immature Gran % (Auto) Neut % (Auto) Lymph % (Auto) [place] % (Auto) Eos % (Auto) Baso % (Auto) Lymph # (Auto) [place] # (Auto) Eos # (Auto) Baso # (Auto) Abs Immat Gran (auto) Absolute Neuts (auto) Absolute Nucleated RBC Nucleated RBC % (auto) Smear Tech's Comments PT INR D-Dimer O2 Saturation ABG pH at Pt Temp ABG pH (Temp Correct) ABG pCO2 at Pt Temp ABG pCO2 (Temp Corrct ABG pO2 at Pt Temp ABG pO2 (Temp Correct ABG HCO3 ABG Base Excess (Actual) Sodium Potassium Chloride Carbon Dioxide Anion Gap BUN Creatinine Estim Creat Clear Calc Estimated GFR POC Glucose 129 H 130 H 132 H Random Glucose Fasting Glucose Estimat Average Glucose Hemoglobin A1c % Calcium Phosphorus Magnesium Total Bilirubin AST ALT Alkaline Phosphatase Troponin I High Sens Total Protein Albumin Cortisol Baseline Cortisol 30 Minute Cortisol 60 Minute ACTH Resp to [employer] Cortisol Sreekanth Time 1 Cortisol Sreekanth Time 2 Cortisol Sreekanth Time 3 ACTH Comment 02/02/21 02/02/21 02/03/21 16:33 21:32 05:34 WBC RBC Hgb Hct MCV MCH MCHC RDW Plt Count MPV Immature Gran % (Auto) Neut % (Auto) Lymph % (Auto) [place] % (Auto) Eos % (Auto) Baso % (Auto) Lymph # (Auto) [place] # (Auto) Eos # (Auto) Baso # (Auto) Abs Immat Gran (auto) Absolute Neuts (auto) Absolute Nucleated RBC Nucleated RBC % (auto) Smear Tech's Comments PT INR D-Dimer O2 Saturation ABG pH at Pt Temp ABG pH (Temp Correct) ABG pCO2 at Pt Temp ABG pCO2 (Temp Corrct ABG pO2 at Pt Temp ABG pO2 (Temp Correct ABG HCO3 ABG Base Excess (Actual) Sodium Potassium Chloride Carbon Dioxide Anion Gap BUN Creatinine Estim Creat Clear Calc Estimated GFR POC Glucose 139 H 130 H 85 Random Glucose Fasting Glucose Estimat Average Glucose Hemoglobin A1c % Calcium Phosphorus Magnesium Total Bilirubin AST ALT Alkaline Phosphatase Troponin I High Sens Total Protein Albumin Cortisol Baseline Cortisol 30 Minute Cortisol 60 Minute ACTH Resp to [employer]ynt[place] Cortisol Sreekanth Time 1 Cortisol Sreekanth Time 2 Cortisol Sreekanth Time 3 ACTH Comment 02/03/21 02/03/21 02/03/21 13:14 16:48 19:48 WBC RBC Hgb Hct MCV MCH MCHC RDW Plt Count MPV Immature Gran % (Auto) Neut % (Auto) Lymph % (Auto) [place] % (Auto) Eos % (Auto) Baso % (Auto) Lymph # (Auto) [place] # (Auto) Eos # (Auto) Baso # (Auto) Abs Immat Gran (auto) Absolute Neuts (auto) Absolute Nucleated RBC Nucleated RBC % (auto) Smear Tech's Comments PT INR D-Dimer O2 Saturation ABG pH at Pt Temp ABG pH (Temp Correct) ABG pCO2 at Pt Temp ABG pCO2 (Temp Corrct ABG pO2 at Pt Temp ABG pO2 (Temp Correct ABG HCO3 ABG Base Excess (Actual) Sodium Potassium Chloride Carbon Dioxide Anion Gap BUN Creatinine Estim Creat Clear Calc Estimated GFR POC Glucose 129 H 144 H 138 H Random Glucose Fasting Glucose Estimat Average Glucose Hemoglobin A1c % Calcium Phosphorus Magnesium Total Bilirubin AST ALT Alkaline Phosphatase Troponin I High Sens Total Protein Albumin Cortisol Baseline Cortisol 30 Minute Cortisol 60 Minute ACTH Resp to Cos[place]trop Cortisol Sreekanth Time 1 Cortisol Sreekanth Time 2 Cortisol Sreekanth Time 3 ACTH Comment 02/04/21 02/04/21 02/04/21 05:28 08:57 13:55 WBC RBC Hgb Hct MCV MCH MCHC RDW Plt Count MPV Immature Gran % (Auto) Neut % (Auto) Lymph % (Auto) [place] % (Auto) Eos % (Auto) Baso % (Auto) Lymph # (Auto) [place] # (Auto) Eos # (Auto) Baso # (Auto) Abs Immat Gran (auto) Absolute Neuts (auto) Absolute Nucleated RBC Nucleated RBC % (auto) Smear Tech's Comments PT INR D-Dimer O2 Saturation ABG pH at Pt Temp ABG pH (Temp Correct) ABG pCO2 at Pt Temp ABG pCO2 (Temp Corrct ABG pO2 at Pt Temp ABG pO2 (Temp Correct ABG HCO3 ABG Base Excess (Actual) Sodium 134 L Potassium 4.8 Chloride 99 Carbon Dioxide 28 Anion Gap 12 BUN 20 H Creatinine 0.80 Estim Creat Clear Calc 53.8 Estimated GFR > 60 POC Glucose 87 156 H Random Glucose Fasting Glucose 89 Estimat Average Glucose Hemoglobin A1c % Calcium 8.8 Phosphorus Magnesium Total Bilirubin 0.3 AST 30 ALT 37 Alkaline Phosphatase 140 H Troponin I High Sens Total Protein 6.5 Albumin 2.8 L Cortisol Baseline Cortisol 30 Minute Cortisol 60 Minute ACTH Resp to [facility] Cortisol Sreekanth Time 1 Cortisol Sreekanth Time 2 Cortisol Sreekanth Time 3 ACTH Comment 02/04/21 02/04/21 02/05/21 16:33 20:18 05:52 WBC RBC Hgb Hct MCV MCH MCHC RDW Plt Count MPV Immature Gran % (Auto) Neut % (Auto) Lymph % (Auto) [place] % (Auto) Eos % (Auto) Baso % (Auto) Lymph # (Auto) [place] # (Auto) Eos # (Auto) Baso # (Auto) Abs Immat Gran (auto) Absolute Neuts (auto) Absolute Nucleated RBC Nucleated RBC % (auto) Smear Tech's Comments PT INR D-Dimer O2 Saturation ABG pH at Pt Temp ABG pH (Temp Correct) ABG pCO2 at Pt Temp ABG pCO2 (Temp Corrct ABG pO2 at Pt Temp ABG pO2 (Temp Correct ABG HCO3 ABG Base Excess (Actual) Sodium Potassium Chloride Carbon Dioxide Anion Gap BUN Creatinine Estim Creat Clear Calc Estimated GFR POC Glucose 162 H 143 H 84 Random Glucose Fasting Glucose Estimat Average Glucose Hemoglobin A1c % Calcium Phosphorus Magnesium Total Bilirubin AST ALT Alkaline Phosphatase Troponin I High Sens Total Protein Albumin Cortisol Baseline Cortisol 30 Minute Cortisol 60 Minute ACTH Resp to [employer] Cortisol Sreekanth Time 1 Cortisol Sreekanth Time 2 Cortisol Sreekanth Time 3 ACTH Comment 02/05/21 02/05/21 02/06/21 18:17 20:10 06:25 WBC RBC Hgb Hct MCV MCH MCHC RDW Plt Count MPV Immature Gran % (Auto) Neut % (Auto) Lymph % (Auto) [place] % (Auto) Eos % (Auto) Baso % (Auto) Lymph # (Auto) [place] # (Auto) Eos # (Auto) Baso # (Auto) Abs Immat Gran (auto) Absolute Neuts (auto) Absolute Nucleated RBC Nucleated RBC % (auto) Smear Tech's Comments PT INR D-Dimer O2 Saturation ABG pH at Pt Temp ABG pH (Temp Correct) ABG pCO2 at Pt Temp ABG pCO2 (Temp Corrct ABG pO2 at Pt Temp ABG pO2 (Temp Correct ABG HCO3 ABG Base Excess (Actual) Sodium Potassium Chloride Carbon Dioxide Anion Gap BUN Creatinine Estim Creat Clear Calc Estimated GFR POC Glucose 134 H 148 H 81 Random Glucose Fasting Glucose Estimat Average Glucose Hemoglobin A1c % Calcium Phosphorus Magnesium Total Bilirubin AST ALT Alkaline Phosphatase Troponin I High Sens Total Protein Albumin Cortisol Baseline Cortisol 30 Minute Cortisol 60 Minute ACTH Resp to [employer] Cortisol Sreekanth Time 1 Cortisol Sreekanth Time 2 Cortisol Sreekanth Time 3 ACTH Comment 02/06/21 02/06/21 02/07/21 16:40 21:30 05:57 WBC RBC Hgb Hct MCV MCH MCHC RDW Plt Count MPV Immature Gran % (Auto) Neut % (Auto) Lymph % (Auto) [place] % (Auto) Eos % (Auto) Baso % (Auto) Lymph # (Auto) [place] # (Auto) Eos # (Auto) Baso # (Auto) Abs Immat Gran (auto) Absolute Neuts (auto) Absolute Nucleated RBC Nucleated RBC % (auto) Smear Tech's Comments PT INR D-Dimer O2 Saturation ABG pH at Pt Temp ABG pH (Temp Correct) ABG pCO2 at Pt Temp ABG pCO2 (Temp Corrct ABG pO2 at Pt Temp ABG pO2 (Temp Correct ABG HCO3 ABG Base Excess (Actual) Sodium Potassium Chloride Carbon Dioxide Anion Gap BUN Creatinine Estim Creat Clear Calc Estimated GFR POC Glucose 137 H 130 H 103 Random Glucose Fasting Glucose Estimat Average Glucose Hemoglobin A1c % Calcium Phosphorus Magnesium Total Bilirubin AST ALT Alkaline Phosphatase Troponin I High Sens Total Protein Albumin Cortisol Baseline Cortisol 30 Minute Cortisol 60 Minute ACTH Resp to [employer] Cortisol Sreekanth Time 1 Cortisol Sreekanth Time 2 Cortisol Sreekanth Time 3 ACTH Comment 02/07/21 02/07/21 02/07/21 11:30 16:23 20:01 WBC RBC Hgb Hct MCV MCH MCHC RDW Plt Count MPV Immature Gran % (Auto) Neut % (Auto) Lymph % (Auto) [place] % (Auto) Eos % (Auto) Baso % (Auto) Lymph # (Auto) [place] # (Auto) Eos # (Auto) Baso # (Auto) Abs Immat Gran (auto) Absolute Neuts (auto) Absolute Nucleated RBC Nucleated RBC % (auto) Smear Tech's Comments PT INR D-Dimer O2 Saturation ABG pH at Pt Temp ABG pH (Temp Correct) ABG pCO2 at Pt Temp ABG pCO2 (Temp Corrct ABG pO2 at Pt Temp ABG pO2 (Temp Correct ABG HCO3 ABG Base Excess (Actual) Sodium Potassium Chloride Carbon Dioxide Anion Gap BUN Creatinine Estim Creat Clear Calc Estimated GFR POC Glucose 127 H 158 H 142 H Random Glucose Fasting Glucose Estimat Average Glucose Hemoglobin A1c % Calcium Phosphorus Magnesium Total Bilirubin AST ALT Alkaline Phosphatase Troponin I High Sens Total Protein Albumin Cortisol Baseline Cortisol 30 Minute Cortisol 60 Minute ACTH Resp to [place] Cortisol Sreekanth Time 1 Cortisol Sreekanth Time 2 Cortisol Sreekanth Time 3 ACTH Comment 02/08/21 02/08/21 02/08/21 05:35 11:53 17:12 WBC RBC Hgb Hct MCV MCH MCHC RDW Plt Count MPV Immature Gran % (Auto) Neut % (Auto) Lymph % (Auto) [place] % (Auto) Eos % (Auto) Baso % (Auto) Lymph # (Auto) [place] # (Auto) Eos # (Auto) Baso # (Auto) Abs Immat Gran (auto) Absolute Neuts (auto) Absolute Nucleated RBC Nucleated RBC % (auto) Smear Tech's Comments PT INR D-Dimer O2 Saturation ABG pH at Pt Temp ABG pH (Temp Correct) ABG pCO2 at Pt Temp ABG pCO2 (Temp Corrct ABG pO2 at Pt Temp ABG pO2 (Temp Correct ABG HCO3 ABG Base Excess (Actual) Sodium Potassium Chloride Carbon Dioxide Anion Gap BUN Creatinine Estim Creat Clear Calc Estimated GFR POC Glucose 89 114 143 H Random Glucose Fasting Glucose Estimat Average Glucose Hemoglobin A1c % Calcium Phosphorus Magnesium Total Bilirubin AST ALT Alkaline Phosphatase Troponin I High Sens Total Protein Albumin Cortisol Baseline Cortisol 30 Minute Cortisol 60 Minute ACTH Resp to [place] Cortisol Sreekanth Time 1 Cortisol Sreekanth Time 2 Cortisol Sreekanth Time 3 ACTH Comment 02/09/21 02/09/21 02/09/21 06:09 12:05 17:33 WBC RBC Hgb Hct MCV MCH MCHC RDW Plt Count MPV Immature Gran % (Auto) Neut % (Auto) Lymph % (Auto) [place] % (Auto) Eos % (Auto) Baso % (Auto) Lymph # (Auto) [place] # (Auto) Eos # (Auto) Baso # (Auto) Abs Immat Gran (auto) Absolute Neuts (auto) Absolute Nucleated RBC Nucleated RBC % (auto) Smear Tech's Comments PT INR D-Dimer O2 Saturation ABG pH at Pt Temp ABG pH (Temp Correct) ABG pCO2 at Pt Temp ABG pCO2 (Temp Corrct ABG pO2 at Pt Temp ABG pO2 (Temp Correct ABG HCO3 ABG Base Excess (Actual) Sodium Potassium Chloride Carbon Dioxide Anion Gap BUN Creatinine Estim Creat Clear Calc Estimated GFR POC Glucose 81 143 H 151 H Random Glucose Fasting Glucose Estimat Average Glucose Hemoglobin A1c % Calcium Phosphorus Magnesium Total Bilirubin AST ALT Alkaline Phosphatase Troponin I High Sens Total Protein Albumin Cortisol Baseline Cortisol 30 Minute Cortisol 60 Minute ACTH Resp to [place] Cortisol Sreekanth Time 1 Cortisol Sreekanth Time 2 Cortisol Sreekanth Time 3 ACTH Comment 02/10/21 05:42 WBC RBC Hgb Hct MCV MCH MCHC RDW Plt Count MPV Immature Gran % (Auto) Neut % (Auto) Lymph % (Auto) [place] % (Auto) Eos % (Auto) Baso % (Auto) Lymph # (Auto) [place] # (Auto) Eos # (Auto) Baso # (Auto) Abs Immat Gran (auto) Absolute Neuts (auto) Absolute Nucleated RBC Nucleated RBC % (auto) Smear Tech's Comments PT INR D-Dimer O2 Saturation ABG pH at Pt Temp ABG pH (Temp Correct) ABG pCO2 at Pt Temp ABG pCO2 (Temp Corrct ABG pO2 at Pt Temp ABG pO2 (Temp Correct ABG HCO3 ABG Base Excess (Actual) Sodium Potassium Chloride Carbon Dioxide Anion Gap BUN Creatinine Estim Creat Clear Calc Estimated GFR POC Glucose 95 Random Glucose Fasting Glucose Estimat Average Glucose Hemoglobin A1c % Calcium Phosphorus Magnesium Total Bilirubin AST ALT Alkaline Phosphatase Troponin I High Sens Total Protein Albumin Cortisol Baseline Cortisol 30 Minute Cortisol 60 Minute ACTH Resp to [facility]t[place] Cortisol Sreekanth Time 1 Cortisol Sreekanth Time 2 Cortisol Sreekanth Time 3 ACTH Comment
--- NOTE | 2021-02-10 09:01 | HO.ECTPROC ---
ECT Procedure Note Diagnosis/Treatment Date of Service: 02/10/21 Diagnosis: Major Depressive Disorder Current Treatment Number: 9 Treatment: Series Interval Clinical Notes: some improvement noted ECT Settings Device: THYMATRON DGx Electrode Placement: Right Unilateral Program/Pulse Width: 0.50 Energy Percent: 100 Seizure Duration By EEG (in seconds): 31 Medications Administration General Anesthetic: Etomidate (10) Muscle Relaxant: Rocuronium Ancillary Medications Anti-emetics: Zofran - Pre ECT Miscillaneous Medications: Propofol and Midazolam Airway Management Airway Management: Bag Mask Ventilation Treatment Recommendations No Changes Recommended: No change Pt Tolerated Procedure w/o Issue: Yes
[2021-02-10] MEDS: Amphetamine Mixed Salts 10 MG TABLET 5 MG G-TUBE (13:15)
[2021-02-10] MEDS: Budesonide 180 MCG AER.POW.BA 2 PUFF INHALE ×2 (13:15→21:08)
[2021-02-10] MEDS: Clotrimazole 1 % Cream 15 GM TUBE 1 APPL TOPICAL (13:15)
[2021-02-10] MEDS: Thiamine HCL 100 MG TABLET G-TUBE (13:15)
--- NOTE | 2021-02-10 15:06 | MHC.CLN ---
F/U NO NEW LABS LAST KNOWN WT 118# (02/06/21), 109# (02/05/21) PT CURRENTLY RECEIVING OSMOLITE 1.5 AT MAX GOAL RATE 100CC/HR CONTINUOUS FROM 9AM-9PM PROVIDES 1800KCALS (35KCALS/KG), 75G PROTEIN (1.5G/KG), 914CC FREE WATER FROM FORMULA. TF MEETS 100% RDI FLUID RESTRICTION 1L PER DAY 01/22/21 PER NEPHROLOGY MONITOR TOLERANCE, RESIDUALS AND LYTES OBTAIN CURRENT WEIGHT FOLLOWING
[2021-02-10] MEDS: Hydrocortisone 10 MG TABLET 2.5 MG PO (19:59)
--- NOTE | 2021-02-10 20:17 | PC.NURSE ---
This nurse administered hydrocortisone med through G-tube.
--- NOTE | 2021-02-10 20:45 | HO.PSYCHPN ---
Subjective Subjective Date of Service: 02/10/21 Reason For Visit: severe depression Subjective Notes: Conditional Voluntary Guardianship: No Interim History: pt tolerated ect mood improved accepts referral to rehab Medication Compliance: Yes Attending Groups: No Mental Status Exam Mental Status Exam Patient Appearance: Well Grooomed Patient Orientation: Person, Place, Time and Situation Level of Consciousness: Awake Patient Behavior: Appropriate Mood Description: Calm Affect Description: Calm and Appropriate Patient Cognition Impaired: No Ability to Follow Directions: Good Speech Pattern: Clear Memory Description: Intact Hallucinations: None Delusions: Not Present Thought Process: Goal Oriented Thought Content: positive for Intact Judgement: Fair Diagnostics Vital Signs (24Hr): Vital Signs - 24 hr 02/10/21 05:50 02/10/21 05:51 02/10/21 08:55 Temperature 98.1 F 98.1 F 98.2 F Pulse Rate 80 80 71 Respiratory Rate 22 H 22 H 18 Blood Pressure 128/87 128/87 154/91 H Pulse Oximetry 95 95 97 02/10/21 09:00 02/10/21 09:05 02/10/21 09:10 Temperature Pulse Rate 77 74 81 Respiratory Rate 17 17 21 H Blood Pressure 117/70 119/77 133/73 Pulse Oximetry 97 95 94 02/10/21 09:25 Temperature 98.2 F Pulse Rate 83 Respiratory Rate 19 Blood Pressure 137/82 Pulse Oximetry 97 Body Mass Index 20.9 Labs Results: 01/15/21 14:51 02/04/21 08:57 Labs: Laboratory Results - last 48 hr 02/09/21 02/09/21 02/09/21 06:09 12:05 17:33 POC Glucose 81 143 H 151 H 02/10/21 05:42 POC Glucose 95 Imaging Radiology Impressions: ITS Impressions Modified Barium Swallow 01/07/21 14:15 IMPRESSION: Laryngeal penetration and occasional aspiration as described above. Please refer to speech pathology report for details. Chest X-Ray 01/10/21 09:11 IMPRESSION: Severe chronic interstitial lung disease. No evidence of acute superimposed pneumonitis. Medications Medications Current Medications Generic Name Dose Route Start Last Admin Trade Name Freq PRN Reason Stop Dose Admin Acetaminophen 650 mg 01/09/21 15:51 02/01/21 09:10 Acetaminophen 325 Mg Tablet G-TUBE 650 mg Q4H PRN Administration Pain, Mild (Pain Scale 1-3) Al Hydroxide/Mg Hydroxide 30 ml 01/08/21 15:46 Magnesium Hydrox/Alum Hydrox 30 Ml Oral.Susp G-TUBE Q4H PRN Dyspepsia Amphetamine/Dextroamphetamine 5 mg 02/01/21 13:00 02/10/21 16:57 Amphetamine Mixed Salts 10 Mg Tablet G-TUBE Not Given BID@0800,1300 [facility] Budesonide 2 puff 12/31/20 20:00 02/10/21 13:15 Budesonide 180 Mcg Aer.Pow.Ba INHALE 2 puff RBID [facility] Administration Clotrimazole 1 appl 01/06/21 21:00 02/10/21 13:15 Clotrimazole 1 % Cream 15 Gm Tube TOPICAL 1 appl BID [facility] Administration Protocol Famotidine 20 mg 01/09/21 09:00 02/10/21 10:41 Famotidine 20 Mg Tablet G-TUBE Not Given DAILY [facility] Fluconazole 100 mg 02/04/21 18:00 02/10/21 10:41 Fluconazole 100 Mg Tablet G-TUBE Not Given DAILY [facility] Fluoxetine HCl 7.5 mg 02/02/21 09:00 02/10/21 10:41 Fluoxetine Hcl Oral Solution 20 Mg/5 Ml Solution PO Not Given DAILY [facility] Hydrocortisone 2.5 mg 01/23/21 19:00 02/10/21 19:59 Hydrocortisone 10 Mg Tablet PO 2.5 mg DAILY@1900 [facility] Administration Hydrocortisone 5 mg 01/23/21 13:00 02/10/21 16:57 Hydrocortisone 10 Mg Tablet PO Not Given DAILY@1300 [facility] Hydrocortisone 10 mg 01/28/21 08:00 02/10/21 10:40 Hydrocortisone 10 Mg Tablet PO Not Given DAILY@0800 [facility] Mirtazapine 7.5 mg 01/14/21 21:00 02/09/21 22:12 Mirtazapine 7.5 Mg Tablet G-TUBE 7.5 mg BEDTIME [facility] Administration Omeprazole 40 mg 01/08/21 16:30 02/10/21 17:39 Omeprazole 20 Mg/10 Ml Susp.Recon G-TUBE Not Given BID@0630,1630 [facility] Thiamine HCl 100 mg 01/09/21 09:00 02/10/21 13:15 Thiamine Hcl 100 Mg Tablet G-TUBE 100 mg DAILY [facility] Administration Allergies Allergies Allergy/AdvReac Type Severity Reaction Status Date / Time Sulfa (Sulfonamide Allergy Unknown UNKNOWN Verified 12/01/20 09:47 Antibiotics) [SULFA (SULFONAMIDE ANTIBIOTICS)] zoster vaccine live Allergy Hives Verified 12/01/20 09:47 Assessment & Plan Assessment & Plan (1) Adrenal insufficiency: Status: Acute Code(s): E27.40 - Unspecified adrenocortical insufficiency (2) Bipolar I disorder with depression, severe: Status: Acute Code(s): F31.4 - Bipolar disorder, current episode depressed, severe, without psychotic features Assessment and Plan: 80M with adrenal insufficeincy, 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 Plan: Keep same treatment continue ECT consider referral to rehab setting cont prozac adderall Greater than 50% of the session was spent on counseling and/or coordination of care Reason for contiued inpatient stay Substantial Risk for: inability to function and rapid decompensation
[2021-02-10] MEDS: Mirtazapine 7.5 MG TABLET G-TUBE (21:09)
[2021-02-11 07:32] VITALS: BP 123/71; PULSE 75; RESP 20; TEMP 36.7; O2SAT 94
[2021-02-11] MEDS: Amphetamine Mixed Salts 10 MG TABLET 5 MG G-TUBE ×2 (09:17→13:16)
[2021-02-11] MEDS: FLUoxetine HCl Oral Solution 20 MG/5 ML SOLUTION 7.5 MG PO (09:17)
[2021-02-11] MEDS: Fluconazole 100 MG TABLET G-TUBE (09:18)
[2021-02-11] MEDS: Hydrocortisone 10 MG TABLET PO (09:18)
[2021-02-11] MEDS: Thiamine HCL 100 MG TABLET G-TUBE (09:18)
[2021-02-11] MEDS: Famotidine 20 MG TABLET G-TUBE (09:18)
[2021-02-11] MEDS: Budesonide 180 MCG AER.POW.BA 2 PUFF INHALE ×2 (09:20→20:03)
--- NOTE | 2021-02-11 09:57 | HO.PSYCHPN ---
Subjective Subjective Date of Service: 02/11/21 Reason For Visit: severe depression Subjective Notes: Conditional Voluntary Healthcare Proxy: Yes Interim History: pt with some inc range of affect Medication Compliance: Yes Attending Groups: No Mental Status Exam Mental Status Exam Patient Appearance: Well Grooomed Patient Orientation: Person, Place, Time and Situation Level of Consciousness: Awake Patient Behavior: Appropriate Mood Description: Calm Affect Description: Calm and Appropriate Patient Cognition Impaired: No Ability to Follow Directions: Good Speech Pattern: Clear Memory Description: Intact Hallucinations: None Delusions: Not Present Thought Process: Goal Oriented Thought Content: positive for Intact Judgement: Fair Diagnostics Vital Signs (24Hr): Vital Signs - 24 hr 02/11/21 07:32 Temperature 98.0 F Pulse Rate 75 Respiratory Rate 20 Blood Pressure 123/71 Pulse Oximetry 94 Body Mass Index 20.9 Labs Results: 01/15/21 14:51 02/04/21 08:57 Labs: Laboratory Results - last 48 hr 02/09/21 02/09/21 02/10/21 12:05 17:33 05:42 POC Glucose 143 H 151 H 95 Imaging Radiology Impressions: ITS Impressions Modified Barium Swallow 01/07/21 14:15 IMPRESSION: Laryngeal penetration and occasional aspiration as described above. Please refer to speech pathology report for details. Chest X-Ray 01/10/21 09:11 IMPRESSION: Severe chronic interstitial lung disease. No evidence of acute superimposed pneumonitis. Medications Medications Current Medications Generic Name Dose Route Start Last Admin Trade Name Freq PRN Reason Stop Dose Admin Acetaminophen 650 mg 01/09/21 15:51 02/01/21 09:10 Acetaminophen 325 Mg Tablet G-TUBE 650 mg Q4H PRN Administration Pain, Mild (Pain Scale 1-3) Al Hydroxide/Mg Hydroxide 30 ml 01/08/21 15:46 Magnesium Hydrox/Alum Hydrox 30 Ml Oral.Susp G-TUBE Q4H PRN Dyspepsia Amphetamine/Dextroamphetamine 5 mg 02/01/21 13:00 02/11/21 09:17 Amphetamine Mixed Salts 10 Mg Tablet G-TUBE 5 mg BID@0800,1300 [facility], [facility]–1983 Administration Budesonide 2 puff 12/31/20 20:00 02/11/21 09:20 Budesonide 180 Mcg Aer.Pow.Ba INHALE 2 puff RBID DOMINICK Administration Clotrimazole 1 appl 01/06/21 21:00 02/10/21 21:09 Clotrimazole 1 % Cream 15 Gm Tube TOPICAL Not Given BID [facility], [facility]–1983 Protocol Famotidine 20 mg 01/09/21 09:00 02/11/21 09:18 Famotidine 20 Mg Tablet G-TUBE 20 mg DAILY DOMINICK Administration Fluconazole 100 mg 02/04/21 18:00 02/11/21 09:18 Fluconazole 100 Mg Tablet G-TUBE 100 mg DAILY DOMINICK Administration Fluoxetine HCl 7.5 mg 02/02/21 09:00 02/10/21 10:41 Fluoxetine Hcl Oral Solution 20 Mg/5 Ml Solution PO Not Given DAILY DOMINICK Hydrocortisone 2.5 mg 01/23/21 19:00 02/10/21 19:59 Hydrocortisone 10 Mg Tablet PO 2.5 mg DAILY@1900 DOMINICK Administration Hydrocortisone 5 mg 01/23/21 13:00 02/10/21 16:57 Hydrocortisone 10 Mg Tablet PO Not Given DAILY@1300 DOMINICK Hydrocortisone 10 mg 01/28/21 08:00 02/11/21 09:18 Hydrocortisone 10 Mg Tablet PO 10 mg DAILY@0800 DOMINICK Administration Mirtazapine 7.5 mg 01/14/21 21:00 02/10/21 21:09 Mirtazapine 7.5 Mg Tablet G-TUBE 7.5 mg BEDTIME DOMINICK Administration Omeprazole 40 mg 01/08/21 16:30 02/11/21 06:40 Omeprazole 20 Mg/10 Ml Susp.Recon G-TUBE 40 mg BID@0630,1630 DOMINICK Administration Thiamine HCl 100 mg 01/09/21 09:00 02/11/21 09:18 Thiamine Hcl 100 Mg Tablet G-TUBE 100 mg DAILY DOMINICK Administration Allergies Allergies Allergy/AdvReac Type Severity Reaction Status Date / Time Sulfa (Sulfonamide Allergy Unknown UNKNOWN Verified 12/01/20 09:47 Antibiotics) [SULFA (SULFONAMIDE ANTIBIOTICS)] zoster vaccine live Allergy Hives Verified 12/01/20 09:47 Assessment & Plan Assessment & Plan (1) Adrenal insufficiency: Status: Acute Code(s): E27.40 - Unspecified adrenocortical insufficiency (2) Bipolar I disorder with depression, severe: Status: Acute Code(s): F31.4 - Bipolar disorder, current episode depressed, severe, without psychotic features Assessment and Plan: 80M with adrenal insufficeincy, 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 Plan: Keep same treatment continue ECT consider referral to rehab setting cont prozac adderall swallowing study reviewed Greater than 50% of the session was spent on counseling and/or coordination of care Reason for contiued inpatient stay Substantial Risk for: inability to function, rapid decompensation and med/psych decompensation
--- NOTE | 2021-02-11 11:58 | MHC.MBSS ---
Modified Barium Swallow Study Speech MBSS Evaluation Start: 01/06/21 09:39 Freq: DIRECTED Status: Active Protocol: Activity Type Activity Date Activity User E-Sign Co-Sign Detail Recorded Client Recorded Date Recorded By Document 01/07/21 15:34 [email or web address] [id number] 01/07/21 17:39 [email or web address] 01/07/21 15:34 Adult Speech and Language Evaluation Referring provider Dr. Blane Chowdhury Reason for Referral [place]iration [place] Treatment [address] Modified Barium Swallow Study Evaluation Date/Plan of Treatment 01/07/21 Established or Reviewed Date Patient First Became Aware of 12/10/20 Symptoms: Date Treatment Started 12/10/20 Medical Diagnosis Pt admitted to for severe depression/ anxiety Primary Speech Language Diagnosis R13.12 Oropharyngeal Phase Dysphagia Background History Pt is a 80 year old male who was admitted to on 11/25 for worsening depression and anxiety. On , pt underwent electroconvulsi ve therapy (ECT ) for management of his depression. Pt's hospitalization was complicated on 12/01 due to sudden onset of SOB. A rapid response was called and pt was transferred to medical floor where he was noted to have severe sepsis with fever, tachycardia and hypotension. Pt's presumed diagnosis is aspiration pneumonia. On 12/04 pt was medically cleared for discharge back to . Repeat CXR revealed no acute findings but chronic severe pulmonary fibrosis. A bedside swallow evaluation was ordered due to presumed ASP PNA. Results of bedside swallow evaluation were inconclusive thus recommendation for MBSS was made. MBSS completed on revealed penetration with both thin and nectar thick liquids, moderate pharyngeal residue, and reduced pharyngeal contraction. At that time, TRESTLE MAINTERNANCE LABORER recommended CHOPPED/ ADVANCED (NDD3) solids and NECTAR THICK LIQUIDS with pills CRUSHED OR WHOLE IN PUREE. TRESTLE MAINTERNANCE LABORER also recommended pharyngeal strengthening exercises. Pt has been completing the exercises as appropriate and with supervision of TRESTLE MAINTERNANCE LABORER 2/3 times weekly. Pt often refuses treatment. Pt's hospitalization was further complicated by drop in BP accompanied with fever on 12/27, requiring transfer to medical floor for management. Pt was found to have lower left lobe consolidation on chest CT. Pt discharged and admitted back to on 12/31. Since readmission to , pt continues to complain of difficulty swallowing, globus sensation, and coughing up phlegm. Repeat MBSS recommended by TRESTLE MAINTERNANCE LABORER to re- assess severity of dysphagia. Medical History Arthritis, Cancer: other, COPD,Emotional or Psychological Issues,Stroke Additional Medical History Anxiety, anemia , bronchiectasis, cerebrovascular disease, CHF, CKD, chronic hyponatremia, degenerative arthritis, depression, hx ECT, hx bladder cancer, hydrocele, pulmonary fibrosis, COPD, CVA Medication List Please see in pt chart. Recent Hospitalizations: If yes, enter Yes: PNA admitting diagnosis Respiratory Needs/Oxygen Delivery Room Air Patient Orientation Person, Place Only Dysphagia Specific Oralpharyngeal Dysphagia Comments MBSS from 12/10 recommendation : CHOPPED/ ADVANCED SOLIDS (NDD3), NECTAR THICK LIQUIDS, PILLS CRUSHED OR WHOLE IN PUREE On 12/28 pt stated that he becomes easily fatigued while eating and requested softer foods. Pt DOWNGRADED to PUREED SOLIDS. Pt upgraded to GROUND.MECH ( NDD2) on 12/31. Pre-eval Risk for Aspiration Medically Fragile,History of Pneumonia, Poor PO Intake, Weak Cough Pre-evaluation Dietary Consistencies Grnd/Mech Altered (NDD2) Pre-eval Liquid Intake [place] Thick Pre-eval Medication Intake Whole with Puree Voice Phonatory-based Quality Normal Voice Pitch Normal Voice Loudness Normal Speech, Language, Cognition difficulties Swallowing History Current Living Situation Currently admitted to . Pt usually lives at home with . Therapies Seen in Past Calendar Year Respiratory Therapy,Speech Therapy Comment: Pt receiving speech therapy services for pharyngeal strengthening exercises during inpatient stay. Oral Motor, Secretions and Volitional Cough Oral Motor Exam Oral Motor Exam Unremarkable Facial Symmetry Symmetrical Facial Movement Controlled Mouth Occlusion Normal Oral-Facial Teeth Characteristics Intact/Normal Is patient able to manage secretions? Yes Is patient able to produce volitional Yes cough? Clinical Observations Pt able to produce volitional cough on command, however cough is weak. MBS Trials Oral Phase Intact Labial Seal Did Not Test A/P Transit Did Not Test Lingual Movement Did Not Test Rotary Mastication Did Not Test Premature Spillage Did Not Test Oral Residue Did Not Test Labial Seal Intact A/P Transit Intact Lingual Movement Intact Rotary Mastication Did Not Test Premature Spillage Intact Oral Residue Intact Labial Seal Intact A/P Transit Intact Lingual Movement Intact Rotary Mastication Did Not Test Premature Spillage Intact Oral Residue Intact Labial Seal Intact A/P Transit Intact Lingual Movement Intact Rotary Mastication Did Not Test Premature Spillage Intact Oral Residue Impaired Pharyngeal Phase Impaired Velopharyngeal Closure Intact Tongue Base Retraction Impaired Laryngeal Excursion Impaired Epiglottal Deflection Impaired Pharyngeal Peristalsis Impaired Valleculae Clearing Impaired Pyriform Clearing Impaired UES Opening Impaired Penetration Impaired Aspiration Intact Velopharyngeal Closure Intact Tongue Base Retraction Impaired Laryngeal Excursion Impaired Epiglottal Deflection Impaired Pharyngeal Peristalsis Impaired Valleculae Clearing Impaired Pyriform Clearing Impaired UES Opening Impaired Penetration Impaired Aspiration Intact Velopharyngeal Closure Impaired Tongue Base Retraction Impaired Laryngeal Excursion Impaired Epiglottal Deflection Impaired Pharyngeal Peristalsis Impaired Valleculae Clearing Impaired Pyriform Clearing Impaired UES Opening Impaired Aspiration Impaired Evaluation End Dysphagia Diet Status Downgrade Liquid Thickness Recommendation NPO Dietary Recommendations NPO Additional Modifications to Solid Foods CLINICAL for Safe Swallow OBSERVATIONS: Laryngeal Penetration and Aspiration: Penetration and aspiration were observed in today's study. [place]- thick, and Honey-thick Contrast entered the airway, contacted the vocal folds, and were ejected from the airway. Pureed solid entered the airway through the vocal folds and was not ejected despite effort. ASSESSMENT: This exam was conducted by speech language pathologist and radiologist with patient seated at 90 degrees for lateral view only. Patient trialed the following liquid and solid consistencies: -nectar thick liquid barium via cup sip -honey thick liquid barium via cup sip -pureed solid ( applesauce mixed with barium paste) Patient displays SEVERE pharyngeal phase dysphagia characterized by the following components of swallowing physiology. ORAL PHASE: -mildly prolonged oral preparatory phase -mild oral residue with thicker consistencies PHARYNGEAL PHASE: -partial laryngeal elevation and excursion -incomplete laryngeal vestibular closure -reduced tongue base retraction -moderate to severe pharyngeal residue -Vallecular residue pooling over the epiglottis Aspiration and penetration evident during this evaluation . Pureed consistency entered the airway and progressed through the vocal folds and was not ejected despite cough. [place] thick and honey thick contrast entered the airway, made contact with the vocal folds and spontaneously ejected. During this evaluation, significant pharyngeal retention was noted with all consistencies. [place] thick liquids were trialed first, as this is pt's baseline. Penetration and moderate pharyngeal residue visualized in the valleculae and pyriform sinuses. Honey thick contrast produced the same results. When given a bite of applesauce, aspiration evident. Pt coughed however , nonproductive . Significant pharyngeal residue, reduced pharyngeal peristalsis, and reduced hyolaryngeal excursion. Due to significant pharyngeal residue and evidence of aspiration on MBSS, pt is recommended NPO . Dysphagia Medication Administration NPO Recommendation for Speech Therapy Speech Therapy through Rehab Facility Text Comment It is recommended that Mr. Azar participate in a comprehensive swallow evaluation by speech therapist trained in Vital[employer] to determine candidacy for treatment. This treatment is provided at [facility] located in [place], [place]. Timeline to reassess PRN Impact Prognosis Activity Limitations None: Education Employmen t Mild: Interpers onal interacti ons Mod: Daily activities Community Prognosis for Improvement Guarded Goals, Objectives, Actions Notes Based on the results of this evaluation, pt is recommended NPO. Due to evidence of aspiration with purees solids and significant pharyngeal residue, pt is at high risk of aspirating when eating and drinking. TRESTLE MAINTERNANCE LABORER spoke to pt 's , Mei Azar RE: recommendations . Pt's demonstrated understanding of results. TRESTLE MAINTERNANCE LABORER spoke to MD over phone with recommendations and referrals. - Recommended Referrals Alternate Feeding Method, Dietary Consult ,GI Consult, Neurology Other Referrals A neuro consult is recommended to evaluate for etiology of dysphagia. Completed: Yes Patient/Caregiver Education Described Results of Evaluation, Patient expressed understanding of evaluation, Family/ Caregivers expressed understanding of results, Family/ Caregivers expressed agreement with goals and treatment plan Comments/Barriers to Learning: It is important to note that MBSS objective studies are snapshots in time and patient function might vary with factors such as time of day or concomitant medical conditions. For this reason, the final treatment plan for this patient should rest with their medical care team. Additional recommendations should be considered with the totality of the patient in mind. Thank you for the opportunity to participate in the care of this patient. If you have any questions about the content of this report, please contact the [facility]. [ End ] Credit Portfolio Manager Clinician/Clinical Yes: Aleyda Iqbal M.A., CF-TREST[employer] MAINTERNANCE LABORER I have reviewed/agreed with student/ Yes fellow documentation Speech/Language Pathologist Smitha Rodríguez M.A., CCC-TREST[employer] MAINTERNANCE LABORER Speech MBSS Evaluation Start: 02/10/21 12:56 Freq: DIRECTED Status: Active Protocol: Activity Type Activity Date Activity User E-Sign Co-Sign Detail Recorded Client Recorded Date Recorded By Document 02/10/21 17:41 GLENDY [id number] 02/10/21 17:55 GLENDY 02/10/21 17:41 Adult Speech and Language Evaluation Referring provider Blane Hinojosa Reason for Referral History of aspiration/ Placed with PEG tube Type of Treatment 60536 Modified Barium Swallow Study Evaluation Date/Plan of Treatment 02/10/21 Established or Reviewed Date Patient First Became Aware of 12/10/20 Symptoms: Date Treatment Started 12/10/20 Medical Diagnosis Admitted on - receiving ECT for depression Primary Speech Language Diagnosis R13.13 Pharyngeal Phase Dysphagia Background History Patient is a 80 year old male who was admitted to on 11/25 for worsening depression and anxiety. On , patient underwent electroconvulsi ve therapy (ECT ) for management of his depression. Patient has had ECT treatment during his entire hospitalization . Patient's hospitalization was complicated on 12/01 by sudden onset of SOB. A rapid response was called and patient was transferred to medical floor where he was noted to have severe sepsis with fever, tachycardia and hypotension. Pt's presumed diagnosis is aspiration pneumonia. On 12/04 patient was medically cleared for discharge back to . Repeat CXR revealed no acute findings but chronic severe pulmonary fibrosis. A bedside swallow evaluation was ordered due to presumed aspiration pneumonia. Results of bedside swallow evaluation were inconclusive thus recommendation for MBSS was made. MBSS completed on revealed penetration with both thin and nectar thick liquids, moderate pharyngeal residue, and reduced pharyngeal contraction. At that time, TRESTLE MAINTERNANCE LABORER recommended CHOPPED/ ADVANCED (NDD3) solids and NECTAR THICK LIQUIDS with pills CRUSHED OR WHOLE IN PUREE. TRESTLE MAINTERNANCE LABORER also recommended pharyngeal strengthening exercises. Patient completed the exercises as appropriate and with supervision of TRESTLE MAINTERNANCE LABORER 2/3 times weekly. However , patient often refused treatment, stating that he did not feel well. Patient's hospitalization was again complicated by drop in blood pressure accompanied with fever on 12/27, requiring transfer to medical floor for management. Patient was found to have lower left lobe consolidation on chest CT. Patient discharged and admitted back to on 12/31. Since readmission to , patient continues to complain of difficulty swallowing, globus sensation, and coughing up phlegm. Repeat MBSS completed by TRESTLE MAINTERNANCE LABORER on which showed aspiration with pureed solids and penetration with thickened liquids. Due to significant pharyngeal retention, patient was recommended NPO status. Patient was placed with PEG tube. Per MD note, discharge plan is for placement in rehab setting. Additional Medical History Anxiety, anemia , bronchiectasis, cerebrovascular disease, CHF, CKD, chronic hyponatremia, degenerative arthritis, depression, hx ECT, hx bladder cancer, hydrocele, pulmonary fibrosis, COPD, CVA Medication List Please see in patient's chart . Respiratory Needs/Oxygen Delivery Room Air Dysphagia Specific Risk of Aspiration, Pharyngeal Dysphagia Pre-eval Risk for Aspiration History of Pneumonia,Poor PO Intake Pre-evaluation Dietary Consistencies NPO Pre-eval Liquid Intake NPO Pre-eval Medication Intake NPO Speech, Language, Cognition difficulties Swallowing Comments Patient has been seen by TRESTLE MAINTERNANCE LABORER throughout this hospitalization . Patient had previous MBSS on 12/10/20 and on 01/07/21. Please refer to full reports. History Current Living Situation Patient lived at home with his . He has been admitted to for extensive hospitalization . Therapies Seen in Past Calendar Year Speech Therapy Comment: Patient was seen for pharyngeal strengthening exercises. At the time minimal motivation and compliance as patient was not feeling well. Oral Motor, Secretions and Volitional Cough Facial Symmetry Symmetrical Facial Movement Controlled Mouth Occlusion Normal Oral-Facial Teeth Characteristics Intact/Normal Oral-Facial Lip Pucker Description Normal Oral-Facial Smile (Lips) Description Normal Oral-Facial Puff Cheeks Description Normal Tongue Size Normal Tongue Frenum Length Normal Side to Side -Tongue Excursion Description Normal -Tongue Range of Movement Description Normal -Tongue Speed of Movement Description Reduced -Tongue Strength of Movement (against Normal opposing pressure) -Tongue Movement Characteristics Normal/Absent Is patient able to manage secretions? Yes Is patient able to produce volitional Yes cough? Clinical Observations Weak volitional cough Oral Phase Thin Liquid via Spoon -Oral Phase Results WNL: Premature Spillage CNT: Oral Phase Labial Seal A/P Transit Lingual Movement Oral Residue DNT: Rotary Masticatio n [place] Thick Liquid via Spoon -Oral Phase Results WNL: Premature Spillage CNT: Oral Phase Labial Seal A/P Transit Lingual Movement Oral Residue DNT: Rotary Masticatio n Honey Thick Liquid via Spoon -Oral Phase Results WNL: Premature Spillage CNT: Oral Phase Labial Seal A/P Transit Lingual Movement Oral Residue DNT: Rotary Masticatio n Pureed Food -Oral Phase Results WNL: Premature Spillage CNT: Oral Phase Labial Seal A/P Transit Lingual Movement Oral Residue DNT: Rotary Masticatio n Pharyngeal Phase Thin Liquid via Spoon -Pharyngeal Phase ABN: Pharyngeal Phase Tongue Base Retraction Laryngeal Excursion Epiglottal Deflection Pharyngeal Peristalsi s Valleculae Clearing Pyriform Clearing Penetratio n WNL: Velopharyn geal Closure UES Opening Aspiration [place] Thick Liquid via Spoon -Pharyngeal Phase ABN: Pharyngeal Phase Tongue Base Retraction Laryngeal Excursion Epiglottal Deflection Pharyngeal Peristalsi s Valleculae Clearing Pyriform Clearing Penetratio n WNL: Velopharyn geal Closure UES Opening Aspiration Honey Thick Liquid via Spoon -Pharyngeal Phase ABN: Pharyngeal Phase Tongue Base Retraction Laryngeal Excursion Epiglottal Deflection Pharyngeal Peristalsi s Valleculae Clearing Pyriform Clearing Penetratio n WNL: Velopharyn geal Closure UES Opening Aspiration Pureed Food -Pharyngeal Phase ABN: Pharyngeal Phase Tongue Base Retraction Laryngeal Excursion Epiglottal Deflection Pharyngeal Peristalsi s Valleculae Clearing Pyriform Clearing Penetratio n Aspiration WNL: Velopharyn geal Closure UES Opening Evaluation End Dysphagia Diet Status No Change Liquid Thickness Recommendation NPO Dietary Recommendations NPO Dysphagia Medication Administration NPO Foods to Avoid: Recommend keep head of bed elevated 30 degrees to reduce risk of microaspiration . Recommend oral care routine at least 4 times daily. Level of Assist vs. Level of PO with TRESTLE MAINTERNANCE LABORER Independance Swallowing Recommended Treatments Thermal Stimulation, Pharyngeal Resistive Exer, Compens. Strategy Educat .,Vocal Cord Adduction Exer Recommendation for Speech Therapy Speech Therapy through Rehab Facility, Modified Barium Swallow Study - Outpatient Text Comment Patient was accompanied by his and a sitter from . Patient and sitter report coughing on sips of water. Due to significant pharyngeal residue, history of aspiration pneumonia x2 during hospitalization , and severe pharyngeal retention we were not able to clear, at this time recommend continue NPO. STRONGLY recommend dysphagia treatment at next level of care with repeat MBSS in 8-12 weeks post -treatment to monitor for any changes/ improvement and provide further recommendations . Pharyngeal strengthening exercises were previously trialed. However, treatment sessions were very inconsistent and limited. Patient often did not feel well at the time and declined to be seen for treatment. With improved motivation, energy, and compliance, patient may benefit from another course of pharyngeal strengthening. Recommend consult with TRESTLE MAINTERNANCE LABORER who is certified in [employer]/ thermal stimulation to assess candidacy for these treatment methods. With knowledge of these risk of aspiration, should patient choose to forgo partial PO for quality of life/ pleasure feed, he may consider JADE FREE WATER PROTOCOL with RIGOROUS ORAL CARE ROUTINE. Discussed risks of aspiration and importance of oral care with patient and his . It is recommended that Mr. Azar participate in a comprehensive swallow evaluation by speech therapist trained in [employer]St[employer] to determine candidacy for treatment. This treatment is provided at [facility] located in [place], [place]. Impact Prognosis Summary: Laryngeal Penetration and Aspiration: Penetration and aspiration were observed in today's study. [place]- thick, and Honey-thick Contrast entered the airway, contacted the vocal folds, and were ejected from the airway. Pureed solid entered the airway through the vocal folds and was not ejected despite effort. ASSESSMENT: This exam was conducted by speech language pathologist and radiologist with patient seated at 90 degrees for lateral view only. Patient trialed the following liquid and solid consistencies: -thin liquid barium via teaspoon sip -nectar thick liquid barium via teaspoon sip -honey thick liquid barium via teaspoon sip -pureed solid ( applesauce mixed with barium paste) No significant change during this study. Patient displays SEVERE pharyngeal phase dysphagia characterized by impairments in the following components of pharyngeal phase swallowing physiology. PHARYNGEAL PHASE: -delayed pharyngeal swallow trigger which initiated when bolus head reached pyriforms -partial laryngeal elevation and excursion -minimal to no epiglottic inversion -partial anterior hyoid movement -incomplete laryngeal vestibular closure resulting in consistent episodes of penetration -diminished pharyngeal stripping wave -severe pharyngeal residue in valleculae, pyriforms, and on posterior pharyngeal wall -vallecular residue pooling over the epiglottis Deep penetration consistently with all solid and liquid consistencies. Contrast entered the airway and contacted the vocal folds and no spontaneous effort made to eject. Patient was instructed for volitional cough. Question of trace aspiration on vallecular pooling after the swallow when eating pureed solid. Noted minimal pharyngeal clearance with all solid and liquid consistencies. Contrast collected in vallecular space, in pyriforms, and on posterior pharyngeal wall . Patient was instructed for a variety of strategies in an attempt to clear pharyngeal retention: effortful swallow, throat clear, volitional cough, double swallow, chin tuck. This reduced some residue, but patient was unable to clear pharynx during this assessment. These strategies were minimally effective. This puts patient at risk for aspiration after the swallow. Due to difficulty clearing pureed solid and liquids, more advanced solids were withheld for patient safety. Activity Limitations None: Interpers onal interacti ons Education Employmen t Sev: Daily activities Community Prognosis for Improvement Guarded Comments: It is important to note that MBSS objective studies are snapshots in time and patient function might vary with factors such as time of day or concomitant medical conditions. For this reason, the final treatment plan for this patient should rest with their medical care team. Additional recommendations should be considered with the totality of the patient in mind. Thank you for the opportunity to participate in the care of this patient. If you have any questions about the content of this report, please contact the [facility]. - Recommended Referrals Alternate Feeding Method, Neurology Other Referrals Recommend consult with neurology to rule in/out underlying condition. Completed: Yes Patient/Caregiver Education Described Results of Evaluation, Patient expressed understanding of evaluation, Family/ Caregivers expressed understanding of results Credit Portfolio Manager Clinician/Clinical No Fellow I have reviewed/agreed with student/ N/A fellow documentation Speech/Language Pathologist Smitha Rodríguez M.A., [facility]-TRESTLE MAINTERNANCE LABORER Unspecified adrenocortical insufficiency (12/31/20) Unspecified severe protein-calorie malnutrition (12/31/20) Hypo-osmolality and hyponatremia (12/31/20) Bipolar disorder, current episode depressed, severe, without psychotic features (12/31/20) Metabolic encephalopathy (12/31/20) Pulmonary fibrosis, unspecified (12/31/20) Chronic respiratory failure with hypoxia (12/31/20) Chronic kidney disease, stage 3 unspecified (12/31/20) Dysphagia, unspecified (12/31/20)
--- NOTE | 2021-02-11 11:59 | MHC.SL.MBSTD ---
Referring provider: Blane Chowdhury M.D. Reason for Referral: History of aspiration/ Placed with PEG tube Type of Treatment: 88483 Modified Barium Swallow Study Date of Plan of Treatment: 02/10/21 Onset of Symptoms/Illness: 12/10/20 Date Treatment Started: 12/10/20 Medical Diagnosis: Admitted on - receiving ECT for depression Speech & Language Primary Diagnosis:R13.13 Pharyngeal Phase Dysphagia Speech & Language Secondary Diagnosis: Comments: Patient is a 80 year old male who was admitted to on 11/25 for worsening depression and anxiety. On 11/27, patient underwent electroconvulsive therapy (ECT) for management of his depression. Patient has had ECT treatment during his entire hospitalization. Patient's hospitalization was complicated on 12/01 by sudden onset of SOB. A rapid response was called and patient was transferred to medical floor where he was noted to have severe sepsis with fever, tachycardia and hypotension. Pt's presumed diagnosis is aspiration pneumonia. On 12/04 patient was medically cleared for discharge back to . Repeat CXR revealed no acute findings but chronic severe pulmonary fibrosis. A bedside swallow evaluation was ordered due to presumed aspiration pneumonia. Results of bedside swallow evaluation were inconclusive thus recommendation for MBSS was made. MBSS completed on 12/10 revealed penetration with both thin and nectar thick liquids, moderate pharyngeal residue, and reduced pharyngeal contraction. At that time, CHIEF OPERATOR HYDROFORMER recommended CHOPPED/ADVANCED (NDD3) solids and NECTAR THICK LIQUIDS with pills CRUSHED OR WHOLE IN PUREE. CHIEF OPERATOR HYDROFORMER also recommended pharyngeal strengthening exercises. Patient completed the exercises as appropriate and with supervision of CHIEF OPERATOR HYDROFORMER 2/3 times weekly. However, patient often refused treatment, stating that he did not feel well. Patient's hospitalization was again complicated by drop in blood pressure accompanied with fever on 12/27, requiring transfer to medical floor for management. Patient was found to have lower left lobe consolidation on chest CT. Patient discharged and admitted back to on 12/31. Since readmission to , patient continues to complain of difficulty swallowing, globus sensation, and coughing up phlegm. Repeat MBSS completed by CHIEF OPERATOR HYDROFORMER on 01/07/21 which showed aspiration with pureed solids and penetration with thickened liquids. Due to significant pharyngeal retention, patient was recommended NPO status. Patient was placed with PEG tube. Per MD note, discharge plan is for placement in rehab setting. Medical History: Anxiety, anemia, bronchiectasis, cerebrovascular disease, CHF, CKD, chronic hyponatremia, degenerative arthritis, depression, hx ECT, hx bladder cancer, hydrocele, pulmonary fibrosis, COPD, CVA Medication List: Please see in patient's chart. Recent Hospitalizations: Yes: PNA Respiratory Needs: Room Air Areas of Difficulties: Swallowing Prognosis for Improvment: Guarded Dysphagia Related: Risk of Aspiration Pharyngeal Dysphagia Risk for Aspiration: History of Pneumonia Poor PO Intake Current Dietary Consistencies: NPO Current Liquid Intake Consistencies: NPO Current Medication Administration Method: NPO Voice Phonatory-based Quality: Normal Voice Pitch: Normal Voice Loudness: Normal Assessment Oral Motor Exam: Oral Motor Exam Unremarkable Facial Symmetry: Symmetrical Facial Movement: Controlled Mouth Occlusion: Normal Oral-Facial Teeth Characteristics: Intact/Normal Oral-Facial Teeth Miscellaneous Observation: Oral-Facial Lip Pucker Description: Normal Oral-Facial Smile (Lips) Description: Normal Oral-Facial Puff Cheeks Description: Normal Tongue Size: Normal Tongue Frenum Length: Normal Tongue Excursion Description: Normal Tongue Range of Movement Description: Normal Tongue Speed of Movement Description: Reduced Tongue Strength of Movement (against opposing pressure): Normal Tongue Movement Characteristics: Normal/Absent ? Is patient able to manage secretions?: Yes ? Is patient able to produce volitional cough?: Yes Clinicial Observations: Weak volitional cough Modified Barium Swallow Study: Impressions and Recommendations ASSESSMENT: This exam was conducted by speech language pathologist and radiologist with patient seated at 90 degrees for lateral view only. Patient trialled the following liquid and solid consistencies: -thin liquid barium via teaspoon sip -nectar thick liquid barium via teaspoon sip -honey thick liquid barium via teaspoon sip -pureed solid (applesauce mixed with barium paste) No significant change during this study. Patient displays SEVERE pharyngeal phase dysphagia characterized by impairments in the following components of pharyngeal phase swallowing physiology. PHARYNGEAL PHASE: -delayed pharyngeal swallow trigger which initiated when bolus head reached pyriforms -partial laryngeal elevation and excursion -minimal to no epiglottic inversion -partial anterior hyoid movement -incomplete laryngeal vestibular closure resulting in consistent episodes of penetration -diminished pharyngeal stripping wave -severe pharyngeal residue in valleculae, pyriforms, and on posterior pharyngeal wall -vallecular residue pooling over the epiglottis Deep penetration consistently with all solid and liquid consistencies. Contrast entered the airway and contacted the vocal folds and no spontaneous effort made to eject. Patient was instructed for volitional cough. Question of trace aspiration on vallecular pooling after the swallow when eating pureed solid. Noted minimal pharyngeal clearance with all solid and liquid consistencies. Contrast collected in vallecular space, in pyriforms, and on posterior pharyngeal wall. Patient was instructed for a variety of strategies in an attempt to clear pharyngeal retention: effortful swallow, throat clear, volitional cough, double swallow, chin tuck. This reduced some residue, but patient was unable to clear pharynx during this assessment. These strategies were minimally effective. This puts patient at risk for aspiration after the swallow. Due to difficulty clearing pureed solid and liquids, more advanced solids were withheld for patient safety. Patient was accompanied by his and a sitter from . Patient and sitter report coughing on sips of water. Due to significant pharyngeal residue, history of aspiration pneumonia x2 during hospitalization, and severe pharyngeal retention we were not able to clear, at this time recommend continue NPO. STRONGLY recommend dysphagia treatment at next level of care with repeat MBSS in 8-12 weeks post-treatment to monitor for any changes/improvement and provide further recommendations. Pharyngeal strengthening exercises were previously trialled. However, treatment sessions were very inconsistent and limited. Patient often did not feel well at the time and declined to be seen for treatment. With improved motivation, energy, and compliance, patient may benefit from another course of pharyngeal strengthening. Recommend consult with CHIEF OPERATOR HYDROFORMER who is certified in [employer]/ thermal stimulation to assess candidacy for these treatment methods. With knowledge of these risk of aspiration, should patient choose to forgo partial PO for quality of life/ pleasure feed, he may consider JADE FREE WATER PROTOCOL with RIGOROUS ORAL CARE ROUTINE. Discussed risks of aspiration and importance of oral care with patient and his . It is recommended that Mr. Azar participate in a comprehensive swallow evaluation by speech therapist trained in [employer] to determine candidacy for treatment. This treatment is provided at [facility] located in [place], [place]. Prognosis for Improvement: Guarded Comment: It is important to note that MBSS objective studies are snapshots in time and patient function might vary with factors such as time of day or concomitant medical conditions. For this reason, the final treatment plan for this patient should rest with their medical care team. Additional recommendations should be considered with the totality of the patient in mind. Thank you for the opportunity to participate in the care of this patient. If you have any questions about the content of this report, please contact the [facility]. Recommendation for Speech Therapy: Speech Therapy through Rehab Facility Modified Barium Swallow Study - Outpatient Text Comment: Patient was accompanied by his and a sitter from . Patient and sitter report coughing on sips of water. Due to significant pharyngeal residue, history of aspiration pneumonia x2 during hospitalization, and severe pharyngeal retention we were not able to clear, at this time recommend continue NPO. STRONGLY recommend dysphagia treatment at next level of care with repeat MBSS in 8-12 weeks post-treatment to monitor for any changes/improvement and provide further recommendations. Pharyngeal strengthening exercises were previously trialed. However, treatment sessions were very inconsistent and limited. Patient often did not feel well at the time and declined to be seen for treatment. With improved motivation, energy, and compliance, patient may benefit from another course of pharyngeal strengthening. Recommend consult with CHIEF OPERATOR HYDROFORMER who is certified in [employer]/ thermal stimulation to assess candidacy for these treatment methods. With knowledge of these risk of aspiration, should patient choose to forgo partial PO for quality of life/ pleasure feed, he may consider JADE FREE WATER PROTOCOL with RIGOROUS ORAL CARE ROUTINE. Discussed risks of aspiration and importance of oral care with patient and his . Recommended Referrals: Alternate Feeding Method Neurology Recommend consult with neurology to rule in/out underlying condition. Patient Education Completed: Yes Patient/Caregiver Education: Described Results of Evaluation Patient expressed understanding of evaluation Family/Caregivers expressed understanding of results [ End ] Pellet Preparation Operator Clinican/Clinical Fellow: No Supervisory Statement: N/A Speech Language Pathologist: Smitha Rodríguez M.A., [facility]-CHIEF OPERATOR HYDROFORMER
[2021-02-11 12:00] VITALS: BMI 17.6
[2021-02-11] MEDS: Hydrocortisone 10 MG TABLET 5 MG PO (13:17)
[2021-02-11] MEDS: Magnesium Hydrox/Alum Hydrox 30 ML ORAL.SUSP G-TUBE (17:51)
[2021-02-11] MEDS: Hydrocortisone 10 MG TABLET 2.5 MG PO (17:54)
[2021-02-11 18:25] LABS: Glucose, Whole Blood 166 mg/dL (60-115)
[2021-02-11 19:08] VITALS: BMI 17.6
[2021-02-11] MEDS: Mirtazapine 7.5 MG TABLET G-TUBE (20:02)
[2021-02-12] VITALS (7 sets, daily range): BP systolic 120–132; BP diastolic 70–89; PULSE 68–86; RESP 15–20; TEMP 36.1–36.8; O2SAT 94–100
--- NOTE | 2021-02-12 08:21 | P.CONAN_ITS ---
[facility] Active Problems Active Problems: All Active Problems (Updated 01/22/21 @ 13:04 by Nile Quezada MD) Adrenal insufficiency (Acute) Severe protein-calorie malnutrition (Acute) Severe malnutrition (Acute) Chronic respiratory failure (Acute) Hyponatremia (Acute) Dysphagia (Acute) Metabolic encephalopathy (Acute) Pneumonia (Acute) Hypotension (Acute) Swallowing dysfunction (Acute) Increased oxygen demand (Acute) Pulmonary fibrosis (Acute) Bipolar I disorder with depression, severe (Acute) CKD (chronic kidney disease) stage 3, GFR 30-59 ml/min (Acute) Bipolar disorder (Acute) Past Medical History Medical History Anemia Anxiety Bronchiectasis Cerebrovascular disease Chronic hyponatremia Chronic respiratory failure CKD (chronic kidney disease) stage 3, GFR 30-59 ml/min Degenerative arthritis Depression History of electroconvulsive therapy Hx of bladder cancer Hydrocele Pulmonary fibrosis Pulmonary fibrosis Family History Family History Father Colon cancer Family history of problems with anesthesia: No Surgical History Surgical History History of bladder surgery History of Problems with Anesthesia: Yes (N&V) Social History Social History Household Members: Spouse Housing: Apartment Do you presently have visiting nurse or other home services: Yes Unable to assess alcohol history related to: Unable to respond and Unknown Cigarette Packs Per Day: 1 Cigarettes Per Day: 20.0 Years Smoked: 20 Smoked in Last 30 Days: No Patient Interested in Nicotine Replacement: No Patient Given Instructions on How to Stop Smoking: No Second Hand Smoke Exposure: No Use of substances other than those prescribed or required for medical reasons: No Substance Use Type: Marijuana Currently Displaying Signs/Symptoms of Drug Intoxication Withdrawal: No Spiritual Healthcare Practices: none Pentecostal Healthcare Practices: none Cultural Healthcare Practices: none Are you DNR?: No Advance Directives: Yes Advance Directives on File: Yes Advance Directives Date on File: 11/27/20 Do you have thoughts of harming others: None Do you have a plan to hurt others: No Plan Recently lost weight without trying: Yes How much weight loss: 2-13 pounds Eating poorly because of decreased appetite: Yes Nutrition screen score: 4 Nutrition Risks: Emaciation/Cachexia Poor oral hygiene: No service: No Current occupational status: retired and disabled Sexual orientation: Straight/Heterosexual Meds Allergies Allergy/AdvReac Type Severity Reaction Status Date / Time Sulfa (Sulfonamide Allergy Unknown UNKNOWN Verified 12/01/20 09:47 Antibiotics) [SULFA (SULFONAMIDE ANTIBIOTICS)] zoster vaccine live Allergy Hives Verified 12/01/20 09:47 Active Medications: Current Medications Generic Name Dose Route Start Last Admin Trade Name Freq PRN Reason Stop Dose Admin Acetaminophen 650 mg 01/09/21 15:51 02/01/21 09:10 Acetaminophen 325 Mg Tablet G-TUBE 650 mg Q4H PRN Administration Pain, Mild (Pain Scale 1-3) Al Hydroxide/Mg Hydroxide 30 ml 01/08/21 15:46 02/11/21 17:51 Magnesium Hydrox/Alum Hydrox 30 Ml Oral.Susp G-TUBE 30 ml Q4H PRN Administration Dyspepsia Amphetamine/Dextroamphetamine 5 mg 02/01/21 13:00 02/11/21 13:16 Amphetamine Mixed Salts 10 Mg Tablet G-TUBE 5 mg BID@0800,1300 DOMINICK Administration Budesonide 2 puff 12/31/20 20:00 02/11/21 20:03 Budesonide 180 Mcg Aer.Pow.Ba INHALE 2 puff RBID DOMINICK Administration Clotrimazole 1 appl 01/06/21 21:00 02/11/21 20:12 Clotrimazole 1 % Cream 15 Gm Tube TOPICAL Not Given BID DOMINICK Protocol Famotidine 20 mg 01/09/21 09:00 02/11/21 09:18 Famotidine 20 Mg Tablet G-TUBE 20 mg DAILY DOMINICK Administration Fluconazole 100 mg 02/04/21 18:00 02/11/21 09:18 Fluconazole 100 Mg Tablet G-TUBE 100 mg DAILY DOMINICK Administration Fluoxetine HCl 7.5 mg 02/02/21 09:00 02/11/21 09:17 Fluoxetine Hcl Oral Solution 20 Mg/5 Ml Solution PO 7.5 mg DAILY DOMINICK Administration Hydrocortisone 2.5 mg 01/23/21 19:00 02/11/21 17:54 Hydrocortisone 10 Mg Tablet PO 2.5 mg DAILY@1900 DOMINICK Administration Hydrocortisone 5 mg 01/23/21 13:00 02/11/21 13:17 Hydrocortisone 10 Mg Tablet PO 5 mg DAILY@1300 DOMINICK Administration Hydrocortisone 10 mg 01/28/21 08:00 02/11/21 09:18 Hydrocortisone 10 Mg Tablet PO 10 mg DAILY@0800 DOMINICK Administration Mirtazapine 7.5 mg 01/14/21 21:00 02/11/21 20:02 Mirtazapine 7.5 Mg Tablet G-TUBE 7.5 mg BEDTIME DOMINICK Administration Omeprazole 40 mg 01/08/21 16:30 02/11/21 17:54 Omeprazole 20 Mg/10 Ml Susp.Recon G-TUBE 40 mg BID@0630,1630 DOMINICK Administration Thiamine HCl 100 mg 01/09/21 09:00 02/11/21 09:18 Thiamine Hcl 100 Mg Tablet G-TUBE 100 mg DAILY DOMINICK Administration Home Medications Medication Instructions Recorded Confirmed Last Taken Type Latuda 1 tab PO DAILY 11/25/20 12/31/20 11/25/20 History Ofev 150 mg PO BID 11/25/20 12/31/20 11/25/20 History docusate sodium [Stool Softener] 1 cap PO BID PRN 11/25/20 12/31/20 11/25/20 History lorazepam 1 tab PO BID PRN 11/25/20 12/31/20 11/25/20 History mirtazapine 1 tab PO BEDTIME 11/25/20 12/31/20 11/24/20 History ondansetron 1 tab PO Q8H PRN 11/25/20 12/31/20 Unknown History quetiapine 37.5 mg PO BEDTIME 11/25/20 12/31/20 11/24/20 History Exam Exam Date and Time: February 12, 2021 0821 Height,Weight and Vital Signs: Height 5 ft 7 in Weight 51.2 kg Last Vital Signs Temp 97.0 F 02/12/21 07:02 Pulse 77 02/12/21 07:02 Resp 18 02/12/21 07:02 BP 128/77 02/12/21 07:02 Pulse Ox 94 02/12/21 07:02 Pertinent Lab Results Pertinent Lab Results: Laboratory Tests 01/01/21 01/05/21 01/08/21 14:34 15:05 07:46 WBC 10.6 RBC 3.17 L Hgb 10.0 L Hct 29.4 L MCV 92.7 MCH 31.5 MCHC 34.0 RDW 15.3 Plt Count 319 MPV 10.7 Immature Gran % (Auto) Neut % (Auto) Lymph % (Auto) [place] % (Auto) Eos % (Auto) Baso % (Auto) Lymph # (Auto) [place] # (Auto) Eos # (Auto) Baso # (Auto) Abs Immat Gran (auto) Absolute Neuts (auto) Absolute Nucleated RBC 0.000 Nucleated RBC % (auto) 0.0 Smear Tech's Comments PT INR D-Dimer O2 Saturation ABG pH at Pt Temp ABG pH (Temp Correct) ABG pCO2 at Pt Temp ABG pCO2 (Temp Corrct ABG pO2 at Pt Temp ABG pO2 (Temp Correct ABG HCO3 ABG Base Excess (Actual) Sodium 132 L 131 L Potassium 5.2 H 5.1 Chloride 97 96 Carbon Dioxide 27 26 Anion Gap 13 14 BUN 25 H Creatinine 1.00 Estim Creat Clear Calc 45.7 Estimated GFR > 60 POC Glucose Random Glucose 145 H D Fasting Glucose Estimat Average Glucose Hemoglobin A1c % Calcium 9.2 Phosphorus Magnesium Total Bilirubin 0.5 AST 36 D ALT 29 Alkaline Phosphatase 137 H D Troponin I High Sens Total Protein 6.7 D Albumin 3.1 L D Cortisol Baseline Cortisol 30 Minute Cortisol 60 Minute ACTH Resp to [facility] Cortisol Sreekanth Time 1 Cortisol Sreekanth Time 2 Cortisol Sreekanth Time 3 ACTH Comment 01/08/21 01/09/21 01/10/21 07:46 07:12 09:26 WBC 18.1 H RBC 3.44 L Hgb 10.9 L Hct 31.8 L MCV 92.4 MCH 31.7 MCHC 34.3 RDW 15.2 Plt Count 347 MPV 10.8 Immature Gran % (Auto) Neut % (Auto) Lymph % (Auto) [place] % (Auto) Eos % (Auto) Baso % (Auto) Lymph # (Auto) [place] # (Auto) Eos # (Auto) Baso # (Auto) Abs Immat Gran (auto) Absolute Neuts (auto) Absolute Nucleated RBC 0.000 Nucleated RBC % (auto) 0.0 Smear Tech's Comments PT 13.5 H INR 1.1 D-Dimer 994 O2 Saturation ABG pH at Pt Temp ABG pH (Temp Correct) ABG pCO2 at Pt Temp ABG pCO2 (Temp Corrct ABG pO2 at Pt Temp ABG pO2 (Temp Correct ABG HCO3 ABG Base Excess (Actual) Sodium Potassium Chloride Carbon Dioxide Anion Gap BUN Creatinine Estim Creat Clear Calc Estimated GFR POC Glucose Random Glucose Fasting Glucose Estimat Average Glucose Hemoglobin A1c % Calcium Phosphorus Magnesium Total Bilirubin AST ALT Alkaline Phosphatase Troponin I High Sens Total Protein Albumin Cortisol Baseline Cortisol 30 Minute Cortisol 60 Minute ACTH Resp to [place] Cortisol Sreekanth Time 1 Cortisol Sreekanth Time 2 Cortisol Sreekanth Time 3 ACTH Comment 01/10/21 01/10/21 01/10/21 09:26 09:26 09:28 WBC 22.2 H RBC 3.38 L Hgb 10.8 L Hct 31.2 L MCV 92.3 MCH 32.0 MCHC 34.6 RDW 15.1 Plt Count 311 MPV 10.4 Immature Gran % (Auto) 0.5 H Neut % (Auto) 84.9 H Lymph % (Auto) 7.4 L [place] % (Auto) 7.1 Eos % (Auto) 0.0 Baso % (Auto) 0.1 Lymph # (Auto) 1.6 [place] # (Auto) 1.6 H Eos # (Auto) 0.0 Baso # (Auto) 0.0 Abs Immat Gran (auto) 0.12 H Absolute Neuts (auto) 18.8 H Absolute Nucleated RBC 0.000 Nucleated RBC % (auto) 0.0 Smear Tech's Comments VERIFIED PT INR D-Dimer O2 Saturation ABG pH at Pt Temp ABG pH (Temp Correct) ABG pCO2 at Pt Temp ABG pCO2 (Temp Corrct ABG pO2 at Pt Temp ABG pO2 (Temp Correct ABG HCO3 ABG Base Excess (Actual) Sodium 130 L Potassium 4.1 Chloride 95 L Carbon Dioxide 31 H Anion Gap 8 L BUN 18 H Creatinine 0.83 Estim Creat Clear Calc 53.1 Estimated GFR > 60 POC Glucose Random Glucose 151 H Fasting Glucose Estimat Average Glucose Hemoglobin A1c % Calcium 8.3 L D Phosphorus Magnesium Total Bilirubin AST ALT Alkaline Phosphatase Troponin I High Sens 14.4 D Total Protein Albumin Cortisol Baseline Cortisol 30 Minute Cortisol 60 Minute ACTH Resp to [place] Cortisol Sreekanth Time 1 Cortisol Sreekanth Time 2 Cortisol Sreekanth Time 3 ACTH Comment 01/10/21 01/13/21 01/15/21 09:49 07:56 14:51 WBC 11.2 H RBC 3.37 L Hgb 10.6 L Hct 31.9 L MCV 94.7 MCH 31.5 MCHC 33.2 RDW 15.5 Plt Count 382 MPV 10.7 Immature Gran % (Auto) 0.5 H Neut % (Auto) 79.8 H Lymph % (Auto) 13.3 L [place] % (Auto) 5.8 Eos % (Auto) 0.4 Baso % (Auto) 0.2 Lymph # (Auto) 1.5 [place] # (Auto) 0.7 Eos # (Auto) 0.1 Baso # (Auto) 0.0 Abs Immat Gran (auto) 0.06 H Absolute Neuts (auto) 8.9 H Absolute Nucleated RBC 0.000 Nucleated RBC % (auto) 0.0 Smear Tech's Comments PT INR D-Dimer O2 Saturation 98.0 ABG pH at Pt Temp 7.49 H ABG pH (Temp Correct) 7.49 H ABG pCO2 at Pt Temp 40 ABG pCO2 (Temp Corrct 40 ABG pO2 at Pt Temp 99 ABG pO2 (Temp Correct 101 ABG HCO3 31 H ABG Base Excess (Actual) 7.4 Sodium 133 L Potassium 4.6 Chloride 95 L Carbon Dioxide 33 H Anion Gap 10 L BUN 18 H Creatinine 0.78 Estim Creat Clear Calc 57.2 Estimated GFR > 60 POC Glucose Random Glucose 132 H Fasting Glucose Estimat Average Glucose Hemoglobin A1c % Calcium 8.5 Phosphorus Magnesium Total Bilirubin 0.4 AST 27 ALT 20 Alkaline Phosphatase 150 H Troponin I High Sens Total Protein 5.9 L Albumin 2.5 L Cortisol Baseline Cortisol 30 Minute Cortisol 60 Minute ACTH Resp to [place] Cortisol Sreekanth Time 1 Cortisol Sreekanth Time 2 Cortisol Sreekanth Time 3 ACTH Comment 01/15/21 01/18/21 01/19/21 14:51 15:36 22:29 WBC RBC Hgb Hct MCV MCH MCHC RDW Plt Count MPV Immature Gran % (Auto) Neut % (Auto) Lymph % (Auto) [place] % (Auto) Eos % (Auto) Baso % (Auto) Lymph # (Auto) [place] # (Auto) Eos # (Auto) Baso # (Auto) Abs Immat Gran (auto) Absolute Neuts (auto) Absolute Nucleated RBC Nucleated RBC % (auto) Smear Tech's Comments PT INR D-Dimer O2 Saturation ABG pH at Pt Temp ABG pH (Temp Correct) ABG pCO2 at Pt Temp ABG pCO2 (Temp Corrct ABG pO2 at Pt Temp ABG pO2 (Temp Correct ABG HCO3 ABG Base Excess (Actual) Sodium 132 L 132 L Potassium 5.1 5.1 Chloride 94 L 95 L Carbon Dioxide 32 H 31 H Anion Gap 11 L 11 L BUN 22 H Creatinine 0.88 Estim Creat Clear Calc 49.0 Estimated GFR > 60 POC Glucose 112 Random Glucose 165 H Fasting Glucose Estimat Average Glucose Hemoglobin A1c % Calcium 8.8 Phosphorus 3.0 Magnesium 2.1 Total Bilirubin 0.3 AST 34 ALT 55 H Alkaline Phosphatase 174 H Troponin I High Sens Total Protein 6.4 L Albumin 2.8 L Cortisol Baseline Cortisol 30 Minute Cortisol 60 Minute ACTH Resp to [place] Cortisol Sreekanth Time 1 Cortisol Sreekanth Time 2 Cortisol Sreekanth Time 3 ACTH Comment 01/20/21 01/20/21 01/20/21 05:55 08:29 12:08 WBC RBC Hgb Hct MCV MCH MCHC RDW Plt Count MPV Immature Gran % (Auto) Neut % (Auto) Lymph % (Auto) [place] % (Auto) Eos % (Auto) Baso % (Auto) Lymph # (Auto) [place] # (Auto) Eos # (Auto) Baso # (Auto) Abs Immat Gran (auto) Absolute Neuts (auto) Absolute Nucleated RBC Nucleated RBC % (auto) Smear Tech's Comments PT INR D-Dimer O2 Saturation ABG pH at Pt Temp ABG pH (Temp Correct) ABG pCO2 at Pt Temp ABG pCO2 (Temp Corrct ABG pO2 at Pt Temp ABG pO2 (Temp Correct ABG HCO3 ABG Base Excess (Actual) Sodium Potassium Chloride Carbon Dioxide Anion Gap BUN Creatinine Estim Creat Clear Calc Estimated GFR POC Glucose 111 127 H Random Glucose Fasting Glucose Estimat Average Glucose 117 Hemoglobin A1c % 5.7 Calcium Phosphorus Magnesium Total Bilirubin AST ALT Alkaline Phosphatase Troponin I High Sens Total Protein Albumin Cortisol Baseline Cortisol 30 Minute Cortisol 60 Minute ACTH Resp to [place] Cortisol Sreekanth Time 1 Cortisol Sreekanth Time 2 Cortisol Sreekanth Time 3 ACTH Comment 01/20/21 01/20/21 01/20/21 12:32 16:53 21:21 WBC RBC Hgb Hct MCV MCH MCHC RDW Plt Count MPV Immature Gran % (Auto) Neut % (Auto) Lymph % (Auto) [place] % (Auto) Eos % (Auto) Baso % (Auto) Lymph # (Auto) [place] # (Auto) Eos # (Auto) Baso # (Auto) Abs Immat Gran (auto) Absolute Neuts (auto) Absolute Nucleated RBC Nucleated RBC % (auto) Smear Tech's Comments PT INR D-Dimer O2 Saturation ABG pH at Pt Temp ABG pH (Temp Correct) ABG pCO2 at Pt Temp ABG pCO2 (Temp Corrct ABG pO2 at Pt Temp ABG pO2 (Temp Correct ABG HCO3 ABG Base Excess (Actual) Sodium Potassium Chloride Carbon Dioxide Anion Gap BUN Creatinine Estim Creat Clear Calc Estimated GFR POC Glucose 140 H 89 Random Glucose Fasting Glucose Estimat Average Glucose Hemoglobin A1c % Calcium Phosphorus Magnesium Total Bilirubin AST ALT Alkaline Phosphatase Troponin I High Sens Total Protein Albumin Cortisol Baseline 10.3 Cortisol 30 Minute 16.3 L Cortisol 60 Minute 19.8 L ACTH Resp to [place] 1132 Cortisol Sreekanth Time 1 0829 Cortisol Sreekanth Time 2 1206 Cortisol Sreekanth Time 3 1232 ACTH Comment See Below 01/21/21 01/21/21 01/21/21 05:43 11:36 18:05 WBC RBC Hgb Hct MCV MCH MCHC RDW Plt Count MPV Immature Gran % (Auto) Neut % (Auto) Lymph % (Auto) [place] % (Auto) Eos % (Auto) Baso % (Auto) Lymph # (Auto) [place] # (Auto) Eos # (Auto) Baso # (Auto) Abs Immat Gran (auto) Absolute Neuts (auto) Absolute Nucleated RBC Nucleated RBC % (auto) Smear Tech's Comments PT INR D-Dimer O2 Saturation ABG pH at Pt Temp ABG pH (Temp Correct) ABG pCO2 at Pt Temp ABG pCO2 (Temp Corrct ABG pO2 at Pt Temp ABG pO2 (Temp Correct ABG HCO3 ABG Base Excess (Actual) Sodium Potassium Chloride Carbon Dioxide Anion Gap BUN Creatinine Estim Creat Clear Calc Estimated GFR POC Glucose 130 H 130 H 118 H Random Glucose Fasting Glucose Estimat Average Glucose Hemoglobin A1c % Calcium Phosphorus Magnesium Total Bilirubin AST ALT Alkaline Phosphatase Troponin I High Sens Total Protein Albumin Cortisol Baseline Cortisol 30 Minute Cortisol 60 Minute ACTH Resp to [place] Cortisol Sreekanth Time 1 Cortisol Sreekanth Time 2 Cortisol Sreekanth Time 3 ACTH Comment 01/21/21 01/22/21 01/22/21 20:09 05:36 12:41 WBC RBC Hgb Hct MCV MCH MCHC RDW Plt Count MPV Immature Gran % (Auto) Neut % (Auto) Lymph % (Auto) [place] % (Auto) Eos % (Auto) Baso % (Auto) Lymph # (Auto) [place] # (Auto) Eos # (Auto) Baso # (Auto) Abs Immat Gran (auto) Absolute Neuts (auto) Absolute Nucleated RBC Nucleated RBC % (auto) Smear Tech's Comments PT INR D-Dimer O2 Saturation ABG pH at Pt Temp ABG pH (Temp Correct) ABG pCO2 at Pt Temp ABG pCO2 (Temp Corrct ABG pO2 at Pt Temp ABG pO2 (Temp Correct ABG HCO3 ABG Base Excess (Actual) Sodium Potassium Chloride Carbon Dioxide Anion Gap BUN Creatinine Estim Creat Clear Calc Estimated GFR POC Glucose 100 119 H 152 H Random Glucose Fasting Glucose Estimat Average Glucose Hemoglobin A1c % Calcium Phosphorus Magnesium Total Bilirubin AST ALT Alkaline Phosphatase Troponin I High Sens Total Protein Albumin Cortisol Baseline Cortisol 30 Minute Cortisol 60 Minute ACTH Resp to [place] Cortisol Sreekanth Time 1 Cortisol Sreekanth Time 2 Cortisol Sreekanth Time 3 ACTH Comment 01/22/21 01/22/21 01/23/21 16:50 20:10 05:13 WBC RBC Hgb Hct MCV MCH MCHC RDW Plt Count MPV Immature Gran % (Auto) Neut % (Auto) Lymph % (Auto) [place] % (Auto) Eos % (Auto) Baso % (Auto) Lymph # (Auto) [place] # (Auto) Eos # (Auto) Baso # (Auto) Abs Immat Gran (auto) Absolute Neuts (auto) Absolute Nucleated RBC Nucleated RBC % (auto) Smear Tech's Comments PT INR D-Dimer O2 Saturation ABG pH at Pt Temp ABG pH (Temp Correct) ABG pCO2 at Pt Temp ABG pCO2 (Temp Corrct ABG pO2 at Pt Temp ABG pO2 (Temp Correct ABG HCO3 ABG Base Excess (Actual) Sodium Potassium Chloride Carbon Dioxide Anion Gap BUN Creatinine Estim Creat Clear Calc Estimated GFR POC Glucose 126 H 113 121 H Random Glucose Fasting Glucose Estimat Average Glucose Hemoglobin A1c % Calcium Phosphorus Magnesium Total Bilirubin AST ALT Alkaline Phosphatase Troponin I High Sens Total Protein Albumin Cortisol Baseline Cortisol 30 Minute Cortisol 60 Minute ACTH Resp to [place] Cortisol Sreekanth Time 1 Cortisol Sreekanth Time 2 Cortisol Sreekanth Time 3 ACTH Comment 01/23/21 01/23/21 01/23/21 07:49 12:01 16:52 WBC RBC Hgb Hct MCV MCH MCHC RDW Plt Count MPV Immature Gran % (Auto) Neut % (Auto) Lymph % (Auto) [place] % (Auto) Eos % (Auto) Baso % (Auto) Lymph # (Auto) [place] # (Auto) Eos # (Auto) Baso # (Auto) Abs Immat Gran (auto) Absolute Neuts (auto) Absolute Nucleated RBC Nucleated RBC % (auto) Smear Tech's Comments PT INR D-Dimer O2 Saturation ABG pH at Pt Temp ABG pH (Temp Correct) ABG pCO2 at Pt Temp ABG pCO2 (Temp Corrct ABG pO2 at Pt Temp ABG pO2 (Temp Correct ABG HCO3 ABG Base Excess (Actual) Sodium 133 L Potassium 4.6 Chloride 96 Carbon Dioxide 31 H Anion Gap 11 L BUN 20 H Creatinine 0.83 Estim Creat Clear Calc 51.9 Estimated GFR > 60 POC Glucose 122 H 137 H Random Glucose Fasting Glucose 125 H D Estimat Average Glucose Hemoglobin A1c % Calcium 8.7 Phosphorus Magnesium Total Bilirubin 0.2 AST 27 ALT 45 H Alkaline Phosphatase 154 H Troponin I High Sens Total Protein 6.1 L Albumin 2.8 L Cortisol Baseline Cortisol 30 Minute Cortisol 60 Minute ACTH Resp to [place] Cortisol Sreekanth Time 1 Cortisol Sreekanth Time 2 Cortisol Sreekanth Time 3 ACTH Comment 01/23/21 01/24/21 01/24/21 21:10 05:26 16:40 WBC RBC Hgb Hct MCV MCH MCHC RDW Plt Count MPV Immature Gran % (Auto) Neut % (Auto) Lymph % (Auto) [place] % (Auto) Eos % (Auto) Baso % (Auto) Lymph # (Auto) [place] # (Auto) Eos # (Auto) Baso # (Auto) Abs Immat Gran (auto) Absolute Neuts (auto) Absolute Nucleated RBC Nucleated RBC % (auto) Smear Tech's Comments PT INR D-Dimer O2 Saturation ABG pH at Pt Temp ABG pH (Temp Correct) ABG pCO2 at Pt Temp ABG pCO2 (Temp Corrct ABG pO2 at Pt Temp ABG pO2 (Temp Correct ABG HCO3 ABG Base Excess (Actual) Sodium Potassium Chloride Carbon Dioxide Anion Gap BUN Creatinine Estim Creat Clear Calc Estimated GFR POC Glucose 114 117 H 107 Random Glucose Fasting Glucose Estimat Average Glucose Hemoglobin A1c % Calcium Phosphorus Magnesium Total Bilirubin AST ALT Alkaline Phosphatase Troponin I High Sens Total Protein Albumin Cortisol Baseline Cortisol 30 Minute Cortisol 60 Minute ACTH Resp to [place] Cortisol Sreekanth Time 1 Cortisol Sreekanth Time 2 Cortisol Sreekanth Time 3 ACTH Comment 01/25/21 01/25/21 01/25/21 05:25 12:11 16:47 WBC RBC Hgb Hct MCV MCH MCHC RDW Plt Count MPV Immature Gran % (Auto) Neut % (Auto) Lymph % (Auto) [place] % (Auto) Eos % (Auto) Baso % (Auto) Lymph # (Auto) [place] # (Auto) Eos # (Auto) Baso # (Auto) Abs Immat Gran (auto) Absolute Neuts (auto) Absolute Nucleated RBC Nucleated RBC % (auto) Smear Tech's Comments PT INR D-Dimer O2 Saturation ABG pH at Pt Temp ABG pH (Temp Correct) ABG pCO2 at Pt Temp ABG pCO2 (Temp Corrct ABG pO2 at Pt Temp ABG pO2 (Temp Correct ABG HCO3 ABG Base Excess (Actual) Sodium Potassium Chloride Carbon Dioxide Anion Gap BUN Creatinine Estim Creat Clear Calc Estimated GFR POC Glucose 90 155 H 145 H Random Glucose Fasting Glucose Estimat Average Glucose Hemoglobin A1c % Calcium Phosphorus Magnesium Total Bilirubin AST ALT Alkaline Phosphatase Troponin I High Sens Total Protein Albumin Cortisol Baseline Cortisol 30 Minute Cortisol 60 Minute ACTH Resp to [place] Cortisol Sreekanth Time 1 Cortisol Sreekanth Time 2 Cortisol Sreekanth Time 3 ACTH Comment 01/25/21 01/26/21 01/26/21 19:59 05:53 16:28 WBC RBC Hgb Hct MCV MCH MCHC RDW Plt Count MPV Immature Gran % (Auto) Neut % (Auto) Lymph % (Auto) [place] % (Auto) Eos % (Auto) Baso % (Auto) Lymph # (Auto) [place] # (Auto) Eos # (Auto) Baso # (Auto) Abs Immat Gran (auto) Absolute Neuts (auto) Absolute Nucleated RBC Nucleated RBC % (auto) Smear Tech's Comments PT INR D-Dimer O2 Saturation ABG pH at Pt Temp ABG pH (Temp Correct) ABG pCO2 at Pt Temp ABG pCO2 (Temp Corrct ABG pO2 at Pt Temp ABG pO2 (Temp Correct ABG HCO3 ABG Base Excess (Actual) Sodium Potassium Chloride Carbon Dioxide Anion Gap BUN Creatinine Estim Creat Clear Calc Estimated GFR POC Glucose 84 124 H 123 H Random Glucose Fasting Glucose Estimat Average Glucose Hemoglobin A1c % Calcium Phosphorus Magnesium Total Bilirubin AST ALT Alkaline Phosphatase Troponin I High Sens Total Protein Albumin Cortisol Baseline Cortisol 30 Minute Cortisol 60 Minute ACTH Resp to [place] Cortisol Sreekanth Time 1 Cortisol Sreekanth Time 2 Cortisol Sreekanth Time 3 ACTH Comment 01/27/21 01/27/21 01/27/21 05:28 16:38 21:43 WBC RBC Hgb Hct MCV MCH MCHC RDW Plt Count MPV Immature Gran % (Auto) Neut % (Auto) Lymph % (Auto) [place] % (Auto) Eos % (Auto) Baso % (Auto) Lymph # (Auto) [place] # (Auto) Eos # (Auto) Baso # (Auto) Abs Immat Gran (auto) Absolute Neuts (auto) Absolute Nucleated RBC Nucleated RBC % (auto) Smear Tech's Comments PT INR D-Dimer O2 Saturation ABG pH at Pt Temp ABG pH (Temp Correct) ABG pCO2 at Pt Temp ABG pCO2 (Temp Corrct ABG pO2 at Pt Temp ABG pO2 (Temp Correct ABG HCO3 ABG Base Excess (Actual) Sodium Potassium Chloride Carbon Dioxide Anion Gap BUN Creatinine Estim Creat Clear Calc Estimated GFR POC Glucose 93 127 H 103 Random Glucose Fasting Glucose Estimat Average Glucose Hemoglobin A1c % Calcium Phosphorus Magnesium Total Bilirubin AST ALT Alkaline Phosphatase Troponin I High Sens Total Protein Albumin Cortisol Baseline Cortisol 30 Minute Cortisol 60 Minute ACTH Resp to [place] Cortisol Sreekanth Time 1 Cortisol Sreekanth Time 2 Cortisol Sreekanth Time 3 ACTH Comment 01/28/21 01/28/21 01/28/21 05:56 08:19 16:13 WBC RBC Hgb Hct MCV MCH MCHC RDW Plt Count MPV Immature Gran % (Auto) Neut % (Auto) Lymph % (Auto) [place] % (Auto) Eos % (Auto) Baso % (Auto) Lymph # (Auto) [place] # (Auto) Eos # (Auto) Baso # (Auto) Abs Immat Gran (auto) Absolute Neuts (auto) Absolute Nucleated RBC Nucleated RBC % (auto) Smear Tech's Comments PT INR D-Dimer O2 Saturation ABG pH at Pt Temp ABG pH (Temp Correct) ABG pCO2 at Pt Temp ABG pCO2 (Temp Corrct ABG pO2 at Pt Temp ABG pO2 (Temp Correct ABG HCO3 ABG Base Excess (Actual) Sodium 136 Potassium 4.7 Chloride 99 Carbon Dioxide 33 H Anion Gap 9 L BUN 22 H Creatinine 0.86 Estim Creat Clear Calc 50.1 Estimated GFR > 60 POC Glucose 117 H 142 H Random Glucose Fasting Glucose 128 H Estimat Average Glucose Hemoglobin A1c % Calcium 8.6 Phosphorus Magnesium Total Bilirubin 0.4 AST 26 ALT 38 Alkaline Phosphatase 137 H Troponin I High Sens Total Protein 5.9 L Albumin 2.7 L Cortisol Baseline Cortisol 30 Minute Cortisol 60 Minute ACTH Resp to [place] Cortisol Sreekanth Time 1 Cortisol Sreekanth Time 2 Cortisol Sreekanth Time 3 ACTH Comment 01/28/21 01/29/21 01/29/21 19:51 06:42 13:57 WBC RBC Hgb Hct MCV MCH MCHC RDW Plt Count MPV Immature Gran % (Auto) Neut % (Auto) Lymph % (Auto) [place] % (Auto) Eos % (Auto) Baso % (Auto) Lymph # (Auto) [place] # (Auto) Eos # (Auto) Baso # (Auto) Abs Immat Gran (auto) Absolute Neuts (auto) Absolute Nucleated RBC Nucleated RBC % (auto) Smear Tech's Comments PT INR D-Dimer O2 Saturation ABG pH at Pt Temp ABG pH (Temp Correct) ABG pCO2 at Pt Temp ABG pCO2 (Temp Corrct ABG pO2 at Pt Temp ABG pO2 (Temp Correct ABG HCO3 ABG Base Excess (Actual) Sodium Potassium Chloride Carbon Dioxide Anion Gap BUN Creatinine Estim Creat Clear Calc Estimated GFR POC Glucose 152 H 87 102 Random Glucose Fasting Glucose Estimat Average Glucose Hemoglobin A1c % Calcium Phosphorus Magnesium Total Bilirubin AST ALT Alkaline Phosphatase Troponin I High Sens Total Protein Albumin Cortisol Baseline Cortisol 30 Minute Cortisol 60 Minute ACTH Resp to [place] Cortisol Sreekanth Time 1 Cortisol Sreekanth Time 2 Cortisol Sreekanth Time 3 ACTH Comment 01/29/21 01/30/21 01/30/21 20:24 06:45 11:58 WBC RBC Hgb Hct MCV MCH MCHC RDW Plt Count MPV Immature Gran % (Auto) Neut % (Auto) Lymph % (Auto) [place] % (Auto) Eos % (Auto) Baso % (Auto) Lymph # (Auto) [place] # (Auto) Eos # (Auto) Baso # (Auto) Abs Immat Gran (auto) Absolute Neuts (auto) Absolute Nucleated RBC Nucleated RBC % (auto) Smear Tech's Comments PT INR D-Dimer O2 Saturation ABG pH at Pt Temp ABG pH (Temp Correct) ABG pCO2 at Pt Temp ABG pCO2 (Temp Corrct ABG pO2 at Pt Temp ABG pO2 (Temp Correct ABG HCO3 ABG Base Excess (Actual) Sodium Potassium Chloride Carbon Dioxide Anion Gap BUN Creatinine Estim Creat Clear Calc Estimated GFR POC Glucose 148 H 126 H 120 H Random Glucose Fasting Glucose Estimat Average Glucose Hemoglobin A1c % Calcium Phosphorus Magnesium Total Bilirubin AST ALT Alkaline Phosphatase Troponin I High Sens Total Protein Albumin Cortisol Baseline Cortisol 30 Minute Cortisol 60 Minute ACTH Resp to Cosyntrop Cortisol Sreekanth Time 1 Cortisol Sreekanth Time 2 Cortisol Sreekanth Time 3 ACTH Comment 01/30/21 01/30/21 01/31/21 16:53 21:01 06:19 WBC RBC Hgb Hct MCV MCH MCHC RDW Plt Count MPV Immature Gran % (Auto) Neut % (Auto) Lymph % (Auto) [place] % (Auto) Eos % (Auto) Baso % (Auto) Lymph # (Auto) [place] # (Auto) Eos # (Auto) Baso # (Auto) Abs Immat Gran (auto) Absolute Neuts (auto) Absolute Nucleated RBC Nucleated RBC % (auto) Smear Tech's Comments PT INR D-Dimer O2 Saturation ABG pH at Pt Temp ABG pH (Temp Correct) ABG pCO2 at Pt Temp ABG pCO2 (Temp Corrct ABG pO2 at Pt Temp ABG pO2 (Temp Correct ABG HCO3 ABG Base Excess (Actual) Sodium Potassium Chloride Carbon Dioxide Anion Gap BUN Creatinine Estim Creat Clear Calc Estimated GFR POC Glucose 113 117 H 123 H Random Glucose Fasting Glucose Estimat Average Glucose Hemoglobin A1c % Calcium Phosphorus Magnesium Total Bilirubin AST ALT Alkaline Phosphatase Troponin I High Sens Total Protein Albumin Cortisol Baseline Cortisol 30 Minute Cortisol 60 Minute ACTH Resp to Cosyntrop Cortisol Sreekanth Time 1 Cortisol Sreekanth Time 2 Cortisol Sreekanth Time 3 ACTH Comment 01/31/21 01/31/21 01/31/21 12:07 16:39 20:56 WBC RBC Hgb Hct MCV MCH MCHC RDW Plt Count MPV Immature Gran % (Auto) Neut % (Auto) Lymph % (Auto) [place] % (Auto) Eos % (Auto) Baso % (Auto) Lymph # (Auto) [place] # (Auto) Eos # (Auto) Baso # (Auto) Abs Immat Gran (auto) Absolute Neuts (auto) Absolute Nucleated RBC Nucleated RBC % (auto) Smear Tech's Comments PT INR D-Dimer O2 Saturation ABG pH at Pt Temp ABG pH (Temp Correct) ABG pCO2 at Pt Temp ABG pCO2 (Temp Corrct ABG pO2 at Pt Temp ABG pO2 (Temp Correct ABG HCO3 ABG Base Excess (Actual) Sodium Potassium Chloride Carbon Dioxide Anion Gap BUN Creatinine Estim Creat Clear Calc Estimated GFR POC Glucose 129 H 112 141 H Random Glucose Fasting Glucose Estimat Average Glucose Hemoglobin A1c % Calcium Phosphorus Magnesium Total Bilirubin AST ALT Alkaline Phosphatase Troponin I High Sens Total Protein Albumin Cortisol Baseline Cortisol 30 Minute Cortisol 60 Minute ACTH Resp to Cosyntrop Cortisol Sreekanth Time 1 Cortisol Sreekanth Time 2 Cortisol Sreekanth Time 3 ACTH Comment 02/01/21 02/01/21 02/01/21 06:23 11:35 16:46 WBC RBC Hgb Hct MCV MCH MCHC RDW Plt Count MPV Immature Gran % (Auto) Neut % (Auto) Lymph % (Auto) [place] % (Auto) Eos % (Auto) Baso % (Auto) Lymph # (Auto) [place] # (Auto) Eos # (Auto) Baso # (Auto) Abs Immat Gran (auto) Absolute Neuts (auto) Absolute Nucleated RBC Nucleated RBC % (auto) Smear Tech's Comments PT INR D-Dimer O2 Saturation ABG pH at Pt Temp ABG pH (Temp Correct) ABG pCO2 at Pt Temp ABG pCO2 (Temp Corrct ABG pO2 at Pt Temp ABG pO2 (Temp Correct ABG HCO3 ABG Base Excess (Actual) Sodium Potassium Chloride Carbon Dioxide Anion Gap BUN Creatinine Estim Creat Clear Calc Estimated GFR POC Glucose 99 95 143 H Random Glucose Fasting Glucose Estimat Average Glucose Hemoglobin A1c % Calcium Phosphorus Magnesium Total Bilirubin AST ALT Alkaline Phosphatase Troponin I High Sens Total Protein Albumin Cortisol Baseline Cortisol 30 Minute Cortisol 60 Minute ACTH Resp to Cosyntrop Cortisol Sreekanth Time 1 Cortisol Sreekanth Time 2 Cortisol Sreekanth Time 3 ACTH Comment 02/01/21 02/02/21 02/02/21 21:31 05:31 12:13 WBC RBC Hgb Hct MCV MCH MCHC RDW Plt Count MPV Immature Gran % (Auto) Neut % (Auto) Lymph % (Auto) [place] % (Auto) Eos % (Auto) Baso % (Auto) Lymph # (Auto) [place] # (Auto) Eos # (Auto) Baso # (Auto) Abs Immat Gran (auto) Absolute Neuts (auto) Absolute Nucleated RBC Nucleated RBC % (auto) Smear Tech's Comments PT INR D-Dimer O2 Saturation ABG pH at Pt Temp ABG pH (Temp Correct) ABG pCO2 at Pt Temp ABG pCO2 (Temp Corrct ABG pO2 at Pt Temp ABG pO2 (Temp Correct ABG HCO3 ABG Base Excess (Actual) Sodium Potassium Chloride Carbon Dioxide Anion Gap BUN Creatinine Estim Creat Clear Calc Estimated GFR POC Glucose 129 H 130 H 132 H Random Glucose Fasting Glucose Estimat Average Glucose Hemoglobin A1c % Calcium Phosphorus Magnesium Total Bilirubin AST ALT Alkaline Phosphatase Troponin I High Sens Total Protein Albumin Cortisol Baseline Cortisol 30 Minute Cortisol 60 Minute ACTH Resp to Cosyntrop Cortisol Sreekanth Time 1 Cortisol Sreekanth Time 2 Cortisol Sreekanth Time 3 ACTH Comment 02/02/21 02/02/21 02/03/21 16:33 21:32 05:34 WBC RBC Hgb Hct MCV MCH MCHC RDW Plt Count MPV Immature Gran % (Auto) Neut % (Auto) Lymph % (Auto) [place] % (Auto) Eos % (Auto) Baso % (Auto) Lymph # (Auto) [place] # (Auto) Eos # (Auto) Baso # (Auto) Abs Immat Gran (auto) Absolute Neuts (auto) Absolute Nucleated RBC Nucleated RBC % (auto) Smear Tech's Comments PT INR D-Dimer O2 Saturation ABG pH at Pt Temp ABG pH (Temp Correct) ABG pCO2 at Pt Temp ABG pCO2 (Temp Corrct ABG pO2 at Pt Temp ABG pO2 (Temp Correct ABG HCO3 ABG Base Excess (Actual) Sodium Potassium Chloride Carbon Dioxide Anion Gap BUN Creatinine Estim Creat Clear Calc Estimated GFR POC Glucose 139 H 130 H 85 Random Glucose Fasting Glucose Estimat Average Glucose Hemoglobin A1c % Calcium Phosphorus Magnesium Total Bilirubin AST ALT Alkaline Phosphatase Troponin I High Sens Total Protein Albumin Cortisol Baseline Cortisol 30 Minute Cortisol 60 Minute ACTH Resp to Cosyntrop Cortisol Sreekanth Time 1 Cortisol Sreekanth Time 2 Cortisol Sreekanth Time 3 ACTH Comment 02/03/21 02/03/21 02/03/21 13:14 16:48 19:48 WBC RBC Hgb Hct MCV MCH MCHC RDW Plt Count MPV Immature Gran % (Auto) Neut % (Auto) Lymph % (Auto) [place] % (Auto) Eos % (Auto) Baso % (Auto) Lymph # (Auto) [place] # (Auto) Eos # (Auto) Baso # (Auto) Abs Immat Gran (auto) Absolute Neuts (auto) Absolute Nucleated RBC Nucleated RBC % (auto) Smear Tech's Comments PT INR D-Dimer O2 Saturation ABG pH at Pt Temp ABG pH (Temp Correct) ABG pCO2 at Pt Temp ABG pCO2 (Temp Corrct ABG pO2 at Pt Temp ABG pO2 (Temp Correct ABG HCO3 ABG Base Excess (Actual) Sodium Potassium Chloride Carbon Dioxide Anion Gap BUN Creatinine Estim Creat Clear Calc Estimated GFR POC Glucose 129 H 144 H 138 H Random Glucose Fasting Glucose Estimat Average Glucose Hemoglobin A1c % Calcium Phosphorus Magnesium Total Bilirubin AST ALT Alkaline Phosphatase Troponin I High Sens Total Protein Albumin Cortisol Baseline Cortisol 30 Minute Cortisol 60 Minute ACTH Resp to Cosyntrop Cortisol Sreekanth Time 1 Cortisol Sreekanth Time 2 Cortisol Sreekanth Time 3 ACTH Comment 02/04/21 02/04/21 02/04/21 05:28 08:57 13:55 WBC RBC Hgb Hct MCV MCH MCHC RDW Plt Count MPV Immature Gran % (Auto) Neut % (Auto) Lymph % (Auto) [place] % (Auto) Eos % (Auto) Baso % (Auto) Lymph # (Auto) [place] # (Auto) Eos # (Auto) Baso # (Auto) Abs Immat Gran (auto) Absolute Neuts (auto) Absolute Nucleated RBC Nucleated RBC % (auto) Smear Tech's Comments PT INR D-Dimer O2 Saturation ABG pH at Pt Temp ABG pH (Temp Correct) ABG pCO2 at Pt Temp ABG pCO2 (Temp Corrct ABG pO2 at Pt Temp ABG pO2 (Temp Correct ABG HCO3 ABG Base Excess (Actual) Sodium 134 L Potassium 4.8 Chloride 99 Carbon Dioxide 28 Anion Gap 12 BUN 20 H Creatinine 0.80 Estim Creat Clear Calc 53.8 Estimated GFR > 60 POC Glucose 87 156 H Random Glucose Fasting Glucose 89 Estimat Average Glucose Hemoglobin A1c % Calcium 8.8 Phosphorus Magnesium Total Bilirubin 0.3 AST 30 ALT 37 Alkaline Phosphatase 140 H Troponin I High Sens Total Protein 6.5 Albumin 2.8 L Cortisol Baseline Cortisol 30 Minute Cortisol 60 Minute ACTH Resp to Cosyntrop Cortisol Sreekanth Time 1 Cortisol Sreekanth Time 2 Cortisol Sreekanth Time 3 ACTH Comment 02/04/21 02/04/21 02/05/21 16:33 20:18 05:52 WBC RBC Hgb Hct MCV MCH MCHC RDW Plt Count MPV Immature Gran % (Auto) Neut % (Auto) Lymph % (Auto) [place] % (Auto) Eos % (Auto) Baso % (Auto) Lymph # (Auto) [place] # (Auto) Eos # (Auto) Baso # (Auto) Abs Immat Gran (auto) Absolute Neuts (auto) Absolute Nucleated RBC Nucleated RBC % (auto) Smear Tech's Comments PT INR D-Dimer O2 Saturation ABG pH at Pt Temp ABG pH (Temp Correct) ABG pCO2 at Pt Temp ABG pCO2 (Temp Corrct ABG pO2 at Pt Temp ABG pO2 (Temp Correct ABG HCO3 ABG Base Excess (Actual) Sodium Potassium Chloride Carbon Dioxide Anion Gap BUN Creatinine Estim Creat Clear Calc Estimated GFR POC Glucose 162 H 143 H 84 Random Glucose Fasting Glucose Estimat Average Glucose Hemoglobin A1c % Calcium Phosphorus Magnesium Total Bilirubin AST ALT Alkaline Phosphatase Troponin I High Sens Total Protein Albumin Cortisol Baseline Cortisol 30 Minute Cortisol 60 Minute ACTH Resp to [place]trop Cortisol Sreekanth Time 1 Cortisol Sreekanth Time 2 Cortisol Sreekanth Time 3 ACTH Comment 02/05/21 02/05/21 02/06/21 18:17 20:10 06:25 WBC RBC Hgb Hct MCV MCH MCHC RDW Plt Count MPV Immature Gran % (Auto) Neut % (Auto) Lymph % (Auto) [place] % (Auto) Eos % (Auto) Baso % (Auto) Lymph # (Auto) [place] # (Auto) Eos # (Auto) Baso # (Auto) Abs Immat Gran (auto) Absolute Neuts (auto) Absolute Nucleated RBC Nucleated RBC % (auto) Smear Tech's Comments PT INR D-Dimer O2 Saturation ABG pH at Pt Temp ABG pH (Temp Correct) ABG pCO2 at Pt Temp ABG pCO2 (Temp Corrct ABG pO2 at Pt Temp ABG pO2 (Temp Correct ABG HCO3 ABG Base Excess (Actual) Sodium Potassium Chloride Carbon Dioxide Anion Gap BUN Creatinine Estim Creat Clear Calc Estimated GFR POC Glucose 134 H 148 H 81 Random Glucose Fasting Glucose Estimat Average Glucose Hemoglobin A1c % Calcium Phosphorus Magnesium Total Bilirubin AST ALT Alkaline Phosphatase Troponin I High Sens Total Protein Albumin Cortisol Baseline Cortisol 30 Minute Cortisol 60 Minute ACTH Resp to [place]trop Cortisol Sreekanth Time 1 Cortisol Sreekanth Time 2 Cortisol Sreekanth Time 3 ACTH Comment 02/06/21 02/06/21 02/07/21 16:40 21:30 05:57 WBC RBC Hgb Hct MCV MCH MCHC RDW Plt Count MPV Immature Gran % (Auto) Neut % (Auto) Lymph % (Auto) [place] % (Auto) Eos % (Auto) Baso % (Auto) Lymph # (Auto) [place] # (Auto) Eos # (Auto) Baso # (Auto) Abs Immat Gran (auto) Absolute Neuts (auto) Absolute Nucleated RBC Nucleated RBC % (auto) Smear Tech's Comments PT INR D-Dimer O2 Saturation ABG pH at Pt Temp ABG pH (Temp Correct) ABG pCO2 at Pt Temp ABG pCO2 (Temp Corrct ABG pO2 at Pt Temp ABG pO2 (Temp Correct ABG HCO3 ABG Base Excess (Actual) Sodium Potassium Chloride Carbon Dioxide Anion Gap BUN Creatinine Estim Creat Clear Calc Estimated GFR POC Glucose 137 H 130 H 103 Random Glucose Fasting Glucose Estimat Average Glucose Hemoglobin A1c % Calcium Phosphorus Magnesium Total Bilirubin AST ALT Alkaline Phosphatase Troponin I High Sens Total Protein Albumin Cortisol Baseline Cortisol 30 Minute Cortisol 60 Minute ACTH Resp to [place] Cortisol Sreekanth Time 1 Cortisol Sreekanth Time 2 Cortisol Sreekanth Time 3 ACTH Comment 02/07/21 02/07/21 02/07/21 11:30 16:23 20:01 WBC RBC Hgb Hct MCV MCH MCHC RDW Plt Count MPV Immature Gran % (Auto) Neut % (Auto) Lymph % (Auto) [place] % (Auto) Eos % (Auto) Baso % (Auto) Lymph # (Auto) [place] # (Auto) Eos # (Auto) Baso # (Auto) Abs Immat Gran (auto) Absolute Neuts (auto) Absolute Nucleated RBC Nucleated RBC % (auto) Smear Tech's Comments PT INR D-Dimer O2 Saturation ABG pH at Pt Temp ABG pH (Temp Correct) ABG pCO2 at Pt Temp ABG pCO2 (Temp Corrct ABG pO2 at Pt Temp ABG pO2 (Temp Correct ABG HCO3 ABG Base Excess (Actual) Sodium Potassium Chloride Carbon Dioxide Anion Gap BUN Creatinine Estim Creat Clear Calc Estimated GFR POC Glucose 127 H 158 H 142 H Random Glucose Fasting Glucose Estimat Average Glucose Hemoglobin A1c % Calcium Phosphorus Magnesium Total Bilirubin AST ALT Alkaline Phosphatase Troponin I High Sens Total Protein Albumin Cortisol Baseline Cortisol 30 Minute Cortisol 60 Minute ACTH Resp to [place] Cortisol Sreekanth Time 1 Cortisol Sreekanth Time 2 Cortisol Sreekanth Time 3 ACTH Comment 02/08/21 02/08/21 02/08/21 05:35 11:53 17:12 WBC RBC Hgb Hct MCV MCH MCHC RDW Plt Count MPV Immature Gran % (Auto) Neut % (Auto) Lymph % (Auto) [place] % (Auto) Eos % (Auto) Baso % (Auto) Lymph # (Auto) [place] # (Auto) Eos # (Auto) Baso # (Auto) Abs Immat Gran (auto) Absolute Neuts (auto) Absolute Nucleated RBC Nucleated RBC % (auto) Smear Tech's Comments PT INR D-Dimer O2 Saturation ABG pH at Pt Temp ABG pH (Temp Correct) ABG pCO2 at Pt Temp ABG pCO2 (Temp Corrct ABG pO2 at Pt Temp ABG pO2 (Temp Correct ABG HCO3 ABG Base Excess (Actual) Sodium Potassium Chloride Carbon Dioxide Anion Gap BUN Creatinine Estim Creat Clear Calc Estimated GFR POC Glucose 89 114 143 H Random Glucose Fasting Glucose Estimat Average Glucose Hemoglobin A1c % Calcium Phosphorus Magnesium Total Bilirubin AST ALT Alkaline Phosphatase Troponin I High Sens Total Protein Albumin Cortisol Baseline Cortisol 30 Minute Cortisol 60 Minute ACTH Resp to [place] Cortisol Sreekanth Time 1 Cortisol Sreekanth Time 2 Cortisol Sreekanth Time 3 ACTH Comment 02/09/21 02/09/21 02/09/21 06:09 12:05 17:33 WBC RBC Hgb Hct MCV MCH MCHC RDW Plt Count MPV Immature Gran % (Auto) Neut % (Auto) Lymph % (Auto) [place] % (Auto) Eos % (Auto) Baso % (Auto) Lymph # (Auto) [place] # (Auto) Eos # (Auto) Baso # (Auto) Abs Immat Gran (auto) Absolute Neuts (auto) Absolute Nucleated RBC Nucleated RBC % (auto) Smear Tech's Comments PT INR D-Dimer O2 Saturation ABG pH at Pt Temp ABG pH (Temp Correct) ABG pCO2 at Pt Temp ABG pCO2 (Temp Corrct ABG pO2 at Pt Temp ABG pO2 (Temp Correct ABG HCO3 ABG Base Excess (Actual) Sodium Potassium Chloride Carbon Dioxide Anion Gap BUN Creatinine Estim Creat Clear Calc Estimated GFR POC Glucose 81 143 H 151 H Random Glucose Fasting Glucose Estimat Average Glucose Hemoglobin A1c % Calcium Phosphorus Magnesium Total Bilirubin AST ALT Alkaline Phosphatase Troponin I High Sens Total Protein Albumin Cortisol Baseline Cortisol 30 Minute Cortisol 60 Minute ACTH Resp to [place] Cortisol Sreekanth Time 1 Cortisol Sreekanth Time 2 Cortisol Sreekanth Time 3 ACTH Comment 02/10/21 02/11/21 05:42 18:22 WBC RBC Hgb Hct MCV MCH MCHC RDW Plt Count MPV Immature Gran % (Auto) Neut % (Auto) Lymph % (Auto) [place] % (Auto) Eos % (Auto) Baso % (Auto) Lymph # (Auto) [place] # (Auto) Eos # (Auto) Baso # (Auto) Abs Immat Gran (auto) Absolute Neuts (auto) Absolute Nucleated RBC Nucleated RBC % (auto) Smear Tech's Comments PT INR D-Dimer O2 Saturation ABG pH at Pt Temp ABG pH (Temp Correct) ABG pCO2 at Pt Temp ABG pCO2 (Temp Corrct ABG pO2 at Pt Temp ABG pO2 (Temp Correct ABG HCO3 ABG Base Excess (Actual) Sodium Potassium Chloride Carbon Dioxide Anion Gap BUN Creatinine Estim Creat Clear Calc Estimated GFR POC Glucose 95 166 H Random Glucose Fasting Glucose Estimat Average Glucose Hemoglobin A1c % Calcium Phosphorus Magnesium Total Bilirubin AST ALT Alkaline Phosphatase Troponin I High Sens Total Protein Albumin Cortisol Baseline Cortisol 30 Minute Cortisol 60 Minute ACTH Resp to Cosyntrop Cortisol Sreekanth Time 1 Cortisol Sreekanth Time 2 Cortisol Sreekanth Time 3 ACTH Comment Airway Mallampati Class: II TM Dist: >3cm Neck ROM: Full
--- NOTE | 2021-02-12 08:37 | HO.ECTPROC ---
ECT Procedure Note Diagnosis/Treatment Date of Service: 02/12/21 Diagnosis: Major Depressive Disorder Current Treatment Number: 10 ECT Settings Device: THYMATRON DGx Electrode Placement: Right Unilateral Program/Pulse Width: 0.50 Energy Percent: 100 Seizure Duration By EEG (in seconds): 51 Medications Administration General Anesthetic: Etomidate (10) Muscle Relaxant: Rocuronium (20) Ancillary Medications Anti-emetics: Zofran - Post ECT Miscillaneous Medications: Propofol (20) and Midazolam (1) Airway Management Airway Management: Bag Mask Ventilation Treatment Recommendations Notes: inc rocuronium 30 mg Pt Tolerated Procedure w/o Issue: Yes
[2021-02-12] MEDS: Famotidine 20 MG TABLET G-TUBE (10:18)
[2021-02-12] MEDS: Thiamine HCL 100 MG TABLET G-TUBE (10:18)
[2021-02-12] MEDS: Fluconazole 100 MG TABLET G-TUBE (10:18)
[2021-02-12] MEDS: Amphetamine Mixed Salts 10 MG TABLET 5 MG G-TUBE ×2 (10:19→13:29)
[2021-02-12] MEDS: Hydrocortisone 10 MG TABLET PO (10:19)
[2021-02-12] MEDS: FLUoxetine HCl Oral Solution 20 MG/5 ML SOLUTION 7.5 MG PO (10:20)
[2021-02-12] MEDS: Budesonide 180 MCG AER.POW.BA 2 PUFF INHALE ×2 (10:40→21:19)
[2021-02-12 10:41] LABS: Glucose, Whole Blood 83 mg/dL (60-115)
[2021-02-12] MEDS: Hydrocortisone 10 MG TABLET 5 MG PO (13:28)
[2021-02-12] MEDS: Hydrocortisone 10 MG TABLET 2.5 MG PO (18:18)
[2021-02-12] MEDS: Mirtazapine 7.5 MG TABLET G-TUBE (21:19)
[2021-02-12 21:44] LABS: Glucose, Whole Blood 137 mg/dL (60-115)
[2021-02-13] MEDS: Amphetamine Mixed Salts 10 MG TABLET 5 MG G-TUBE ×2 (08:37→13:00)
[2021-02-13] MEDS: Hydrocortisone 10 MG TABLET PO (08:39)
[2021-02-13] MEDS: Thiamine HCL 100 MG TABLET G-TUBE (08:39)
[2021-02-13] MEDS: Famotidine 20 MG TABLET G-TUBE (08:40)
[2021-02-13] MEDS: Fluconazole 100 MG TABLET G-TUBE (08:40)
[2021-02-13] MEDS: FLUoxetine HCl Oral Solution 20 MG/5 ML SOLUTION 7.5 MG PO (08:42)
[2021-02-13] MEDS: Clotrimazole 1 % Cream 15 GM TUBE 1 APPL TOPICAL (08:43)
[2021-02-13] MEDS: Budesonide 180 MCG AER.POW.BA 2 PUFF INHALE ×2 (08:43→21:13)
[2021-02-13 11:52] LABS: Glucose, Whole Blood 145 mg/dL (60-115)
[2021-02-13] MEDS: Hydrocortisone 10 MG TABLET 5 MG PO (13:00)
[2021-02-13 16:55] LABS: Glucose, Whole Blood 129 mg/dL (60-115)
[2021-02-13 16:56] VITALS: BP 132/75; PULSE 90; RESP 19; O2SAT 96
[2021-02-13] MEDS: Hydrocortisone 10 MG TABLET 2.5 MG PO (18:25)
--- NOTE | 2021-02-13 19:55 | HO.PSYCHPN ---
Subjective Subjective Date of Service: 02/13/21 Reason For Visit: severe depression Interim History: Sai has made a substantial improvement. He is sitting in the day room watching TV and is able to engage in a full conversation. He does have occasional diarrhea and is asking for immodium Medication Compliance: Yes Review of Systems Acute medical concerns: No Medical Review of Systems: unchanged Mental Status Exam Mental Status Exam Patient Appearance: Well Grooomed Patient Orientation: Person, Place, Time and Situation Level of Consciousness: Awake Patient Behavior: Appropriate Mood Description: Calm Affect Description: Calm and Appropriate Patient Cognition Impaired: No Ability to Follow Directions: Good Speech Pattern: Clear Memory Description: Intact Hallucinations: None Delusions: Not Present Thought Process: Goal Oriented Thought Content: positive for Intact, negative for Suicidal Ideation and negative for Homicidal Ideation Judgement: Fair Diagnostics Vital Signs (24Hr): Vital Signs - 24 hr 02/13/21 16:56 Pulse Rate 90 Respiratory Rate 19 Blood Pressure 132/75 Pulse Oximetry 96 Body Mass Index 17.6 Labs Results: 01/15/21 14:51 02/04/21 08:57 Labs: Laboratory Results - last 48 hr 02/12/21 02/12/21 02/13/21 10:16 21:35 11:44 POC Glucose 83 137 H 145 H 02/13/21 16:47 POC Glucose 129 H Imaging Radiology Impressions: ITS Impressions Modified Barium Swallow 01/07/21 14:15 IMPRESSION: Laryngeal penetration and occasional aspiration as described above. Please refer to speech pathology report for details. Chest X-Ray 01/10/21 09:11 IMPRESSION: Severe chronic interstitial lung disease. No evidence of acute superimposed pneumonitis. Modified Barium Swallow 02/10/21 12:56 IMPRESSION: Vallecular retention with laryngeal penetration. Medications Medications Current Medications Generic Name Dose Route Start Last Admin Trade Name Freq PRN Reason Stop Dose Admin Acetaminophen 650 mg 01/09/21 15:51 02/01/21 09:10 Acetaminophen 325 Mg Tablet G-TUBE 650 mg Q4H PRN Administration Pain, Mild (Pain Scale 1-3) Al Hydroxide/Mg Hydroxide 30 ml 01/08/21 15:46 02/11/21 17:51 Magnesium Hydrox/Alum Hydrox 30 Ml Oral.Susp G-TUBE 30 ml Q4H PRN Administration Dyspepsia Amphetamine/Dextroamphetamine 5 mg 02/01/21 13:00 02/13/21 13:00 Amphetamine Mixed Salts 10 Mg Tablet G-TUBE 5 mg BID@0800,1300 DOMINICK Administration Budesonide 2 puff 12/31/20 20:00 02/13/21 08:43 Budesonide 180 Mcg Aer.Pow.Ba INHALE 2 puff RBID DOMINICK Administration Clotrimazole 1 appl 01/06/21 21:00 02/13/21 08:43 Clotrimazole 1 % Cream 15 Gm Tube TOPICAL 1 appl BID DOMINICK Administration Protocol Famotidine 20 mg 01/09/21 09:00 02/13/21 08:40 Famotidine 20 Mg Tablet G-TUBE 20 mg DAILY DOMINICK Administration Fluconazole 100 mg 02/04/21 18:00 02/13/21 08:40 Fluconazole 100 Mg Tablet G-TUBE 100 mg DAILY DOMINICK Administration Fluoxetine HCl 7.5 mg 02/02/21 09:00 02/13/21 08:42 Fluoxetine Hcl Oral Solution 20 Mg/5 Ml Solution PO 7.5 mg DAILY DOMINICK Administration Hydrocortisone 2.5 mg 01/23/21 19:00 02/13/21 18:25 Hydrocortisone 10 Mg Tablet PO 2.5 mg DAILY@1900 DOMINICK Administration Hydrocortisone 5 mg 01/23/21 13:00 02/13/21 13:00 Hydrocortisone 10 Mg Tablet PO 5 mg DAILY@1300 DOMINICK Administration Hydrocortisone 10 mg 01/28/21 08:00 02/13/21 08:39 Hydrocortisone 10 Mg Tablet PO 10 mg DAILY@0800 DOMINICK Administration Loperamide HCl 2 mg 02/13/21 14:00 Loperamide Hcl 2 Mg Capsule PO Q6H PRN Diarrhea Mirtazapine 7.5 mg 01/14/21 21:00 02/12/21 21:19 Mirtazapine 7.5 Mg Tablet G-TUBE 7.5 mg BEDTIME DOMINICK Administration Omeprazole 40 mg 01/08/21 16:30 02/13/21 16:26 Omeprazole 20 Mg/10 Ml Susp.Recon G-TUBE 40 mg BID@0630,1630 DOMINICK Administration Ondansetron HCl 4 mg 02/12/21 08:56 Ondansetron Hcl 4 Mg/2 Ml Vial IVPUSH ONCE PRN Nausea and Vomiting Thiamine HCl 100 mg 01/09/21 09:00 02/13/21 08:39 Thiamine Hcl 100 Mg Tablet G-TUBE 100 mg DAILY DOMINICK Administration Allergies Allergies Allergy/AdvReac Type Severity Reaction Status Date / Time Sulfa (Sulfonamide Allergy Unknown UNKNOWN Verified 12/01/20 09:47 Antibiotics) [SULFA (SULFONAMIDE ANTIBIOTICS)] zoster vaccine live Allergy Hives Verified 12/01/20 09:47 Assessment & Plan Assessment & Plan (1) Adrenal insufficiency: Status: Acute Code(s): E27.40 - Unspecified adrenocortical insufficiency (2) Bipolar I disorder with depression, severe: Status: Acute Code(s): F31.4 - Bipolar disorder, current episode depressed, severe, without psychotic features Assessment and Plan: 80M with adrenal insufficeincy, 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 Plan: Keep same treatment continue ECT consider referral to rehab setting cont prozac adderall swallowing study reviewed Greater than 50% of the session was spent on counseling and/or coordination of care Patient educated on: diagnosis and medication risk/benefits Informed Consent: further education needed Reason for contiued inpatient stay Substantial Risk for: med/psych decompensation
[2021-02-13] MEDS: Mirtazapine 7.5 MG TABLET G-TUBE (21:13)
[2021-02-14 08:20] LABS: Glucose, Whole Blood 80 mg/dL (60-115)
[2021-02-14] MEDS: FLUoxetine HCl Oral Solution 20 MG/5 ML SOLUTION 7.5 MG PO (08:43)
[2021-02-14] MEDS: Fluconazole 100 MG TABLET G-TUBE (08:44)
[2021-02-14] MEDS: Hydrocortisone 10 MG TABLET PO (08:44)
[2021-02-14] MEDS: Thiamine HCL 100 MG TABLET G-TUBE (08:44)
[2021-02-14] MEDS: Famotidine 20 MG TABLET G-TUBE (08:44)
[2021-02-14] MEDS: Clotrimazole 1 % Cream 15 GM TUBE 1 APPL TOPICAL ×2 (08:49→20:54)
[2021-02-14] MEDS: Budesonide 180 MCG AER.POW.BA 2 PUFF INHALE ×2 (08:50→20:54)
[2021-02-14] MEDS: Amphetamine Mixed Salts 10 MG TABLET 5 MG G-TUBE ×2 (08:51→13:13)
[2021-02-14] MEDS: Hydrocortisone 10 MG TABLET 5 MG PO (13:13)
[2021-02-14 16:09] LABS: Glucose, Whole Blood 167 mg/dL (60-115)
--- NOTE | 2021-02-14 17:52 | PC.NURSE ---
At approximately 1445 this law reporter was called to the room of Sai Azar who had fallen to the floor. Patient was attempting to get up to go to BR without waiting for assist from sitter. When asked to sit back down on bed he miseed the bed and slid to floor. Patient has abrasion to R forehead and skin tears to R forearm and R hand. Patient assessed and helped to BR. He was intent on not soiling himself. When back in bed O2 was put on at 2L. Vitals were taken and wounds were dressed. Tegaderm was not available so bandaids were used. Patient initially had O2 sats in 80's but quickly came up to 99 with O2. Pulse was 75 and BP 135/83. MD was notified and ordered CT no contrast urgent. [employer] Installer notified. Incident report filed. Family visiting with patient at this time. Patient was instructed/reminded to wait for help before getting up. Patient denies pain at this time.
[2021-02-14 18:14] VITALS: BP 131/72; PULSE 76; TEMP 36.4; O2SAT 97
--- NOTE | 2021-02-14 18:20 | HO.PSYCHPN ---
Subjective Subjective Date of Service: 02/14/21 Reason For Visit: severe depression Interim History: Sai has continued to improve and he is content watching TV. Later in the evening he slipped while attempting to use the BR and he hit his head. He had no LOC. He had no confusion. CT scan is pending. Medication Compliance: Yes Side effects from medications: No Review of Systems Acute medical concerns: No Medical Review of Systems: unchanged Mental Status Exam Mental Status Exam Patient Appearance: Well Grooomed Patient Orientation: Person, Place, Time and Situation Level of Consciousness: Awake Patient Behavior: Appropriate Mood Description: Calm Affect Description: Calm and Appropriate Patient Cognition Impaired: No Ability to Follow Directions: Good Speech Pattern: Clear Memory Description: Intact Hallucinations: None Delusions: Not Present Thought Process: Goal Oriented Thought Content: positive for Intact, negative for Suicidal Ideation and negative for Homicidal Ideation Judgement: Fair Diagnostics Vital Signs (24Hr): Vital Signs - 24 hr 02/14/21 18:14 Temperature 97.6 F Pulse Rate 76 Blood Pressure 131/72 Pulse Oximetry 97 Body Mass Index 17.6 Labs Results: 01/15/21 14:51 02/04/21 08:57 Labs: Laboratory Results - last 48 hr 02/12/21 02/13/21 02/13/21 21:35 11:44 16:47 POC Glucose 137 H 145 H 129 H 02/14/21 02/14/21 08:14 12:03 POC Glucose 80 167 H Imaging Radiology Impressions: ITS Impressions Modified Barium Swallow 01/07/21 14:15 IMPRESSION: Laryngeal penetration and occasional aspiration as described above. Please refer to speech pathology report for details. Chest X-Ray 01/10/21 09:11 IMPRESSION: Severe chronic interstitial lung disease. No evidence of acute superimposed pneumonitis. Modified Barium Swallow 02/10/21 12:56 IMPRESSION: Vallecular retention with laryngeal penetration. Medications Medications Current Medications Generic Name Dose Route Start Last Admin Trade Name Freq PRN Reason Stop Dose Admin Acetaminophen 650 mg 01/09/21 15:51 02/01/21 09:10 Acetaminophen 325 Mg Tablet G-TUBE 650 mg Q4H PRN Administration Pain, Mild (Pain Scale 1-3) Al Hydroxide/Mg Hydroxide 30 ml 01/08/21 15:46 02/11/21 17:51 Magnesium Hydrox/Alum Hydrox 30 Ml Oral.Susp G-TUBE 30 ml Q4H PRN Administration Dyspepsia Amphetamine/Dextroamphetamine 5 mg 02/01/21 13:00 02/14/21 13:13 Amphetamine Mixed Salts 10 Mg Tablet G-TUBE 5 mg BID@0800,1300 [facility] Administration Budesonide 2 puff 12/31/20 20:00 02/14/21 08:50 Budesonide 180 Mcg Aer.Pow.Ba INHALE 2 puff RBID [facility] Administration Clotrimazole 1 appl 01/06/21 21:00 02/14/21 08:49 Clotrimazole 1 % Cream 15 Gm Tube TOPICAL 1 appl BID [facility] Administration Protocol Famotidine 20 mg 01/09/21 09:00 02/14/21 08:44 Famotidine 20 Mg Tablet G-TUBE 20 mg DAILY [facility] Administration Fluconazole 100 mg 02/04/21 18:00 02/14/21 08:44 Fluconazole 100 Mg Tablet G-TUBE 100 mg DAILY [facility] Administration Fluoxetine HCl 7.5 mg 02/02/21 09:00 02/14/21 08:43 Fluoxetine Hcl Oral Solution 20 Mg/5 Ml Solution PO 7.5 mg DAILY [facility] Administration Hydrocortisone 2.5 mg 01/23/21 19:00 02/13/21 18:25 Hydrocortisone 10 Mg Tablet PO 2.5 mg DAILY@1900 [facility] Administration Hydrocortisone 5 mg 01/23/21 13:00 02/14/21 13:13 Hydrocortisone 10 Mg Tablet PO 5 mg DAILY@1300 [facility] Administration Hydrocortisone 10 mg 01/28/21 08:00 02/14/21 08:44 Hydrocortisone 10 Mg Tablet PO 10 mg DAILY@0800 [facility] Administration Loperamide HCl 2 mg 02/13/21 14:00 Loperamide Hcl 2 Mg Capsule PO Q6H PRN Diarrhea Mirtazapine 7.5 mg 01/14/21 21:00 02/13/21 21:13 Mirtazapine 7.5 Mg Tablet G-TUBE 7.5 mg BEDTIME [facility] Administration Omeprazole 40 mg 01/08/21 16:30 02/14/21 15:50 Omeprazole 20 Mg/10 Ml Susp.Recon G-TUBE 40 mg BID@0630,1630 [facility] Administration Ondansetron HCl 4 mg 02/12/21 08:56 Ondansetron Hcl 4 Mg/2 Ml Vial IVPUSH ONCE PRN Nausea and Vomiting Thiamine HCl 100 mg 01/09/21 09:00 02/14/21 08:44 Thiamine Hcl 100 Mg Tablet G-TUBE 100 mg DAILY [facility] Administration Allergies Allergies Allergy/AdvReac Type Severity Reaction Status Date / Time Sulfa (Sulfonamide Allergy Unknown UNKNOWN Verified 12/01/20 09:47 Antibiotics) [SULFA (SULFONAMIDE ANTIBIOTICS)] zoster vaccine live Allergy Hives Verified 12/01/20 09:47 Assessment & Plan Assessment & Plan (1) Adrenal insufficiency: Status: Acute Code(s): E27.40 - Unspecified adrenocortical insufficiency (2) Bipolar I disorder with depression, severe: Status: Acute Code(s): F31.4 - Bipolar disorder, current episode depressed, severe, without psychotic features Assessment and Plan: 80M with adrenal insufficeincy, 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 Plan: Keep same treatment continue ECT consider referral to rehab setting cont prozac adderall swallowing study reviewed CT scan of head D/T fall Otherwise no change to treatment plan Greater than 50% of the session was spent on counseling and/or coordination of care Patient educated on: diagnosis and medication risk/benefits Informed Consent: further education needed Reason for contiued inpatient stay Substantial Risk for: inability to function and med/psych decompensation
[2021-02-14 18:23] LABS: Glucose, Whole Blood 124 mg/dL (60-115)
[2021-02-14] MEDS: Hydrocortisone 10 MG TABLET 2.5 MG PO (19:23)
[2021-02-14] MEDS: Mirtazapine 7.5 MG TABLET G-TUBE (20:53)
[2021-02-14 21:55] LABS: Glucose, Whole Blood 115 mg/dL (60-115)
[2021-02-15 06:45] VITALS: BP 136/77; PULSE 77; TEMP 35.9; O2SAT 92
[2021-02-15] MEDS: Amphetamine Mixed Salts 10 MG TABLET 5 MG G-TUBE (08:33)
[2021-02-15] MEDS: Hydrocortisone 10 MG TABLET PO (08:33)
[2021-02-15] MEDS: Thiamine HCL 100 MG TABLET G-TUBE (08:33)
[2021-02-15] MEDS: Famotidine 20 MG TABLET G-TUBE (08:34)
[2021-02-15] MEDS: FLUoxetine HCl Oral Solution 20 MG/5 ML SOLUTION 7.5 MG PO (08:34)
[2021-02-15] MEDS: Fluconazole 100 MG TABLET G-TUBE (08:34)
[2021-02-15] MEDS: Budesonide 180 MCG AER.POW.BA 2 PUFF INHALE (08:34)
--- NOTE | 2021-02-15 09:35 | HO.PSYCHPN ---
Subjective Subjective Date of Service: 02/15/21 Reason For Visit: severe depression Interim History: The patient fell yesterday and his CT scan head was normal. He stated that he wanted to go to the bathroom, he didn't want to soil myself and he fell accidentally. Today, he reported his mood as good, he has not decided yet if he wants to go to the SNF. Diagnostics Vital Signs (24Hr): Vital Signs - 24 hr 02/14/21 18:14 02/15/21 06:45 Temperature 97.6 F 96.6 F L Pulse Rate 76 77 Blood Pressure 131/72 136/77 Pulse Oximetry 97 92 Body Mass Index 17.6 Labs Results: 01/15/21 14:51 02/04/21 08:57 Labs: Laboratory Results - last 48 hr 02/13/21 02/13/21 02/14/21 11:44 16:47 08:14 POC Glucose 145 H 129 H 80 02/14/21 02/14/21 02/14/21 12:03 18:20 21:49 POC Glucose 167 H 124 H 115 Imaging Radiology Impressions: ITS Impressions Modified Barium Swallow 01/07/21 14:15 IMPRESSION: Laryngeal penetration and occasional aspiration as described above. Please refer to speech pathology report for details. Chest X-Ray 01/10/21 09:11 IMPRESSION: Severe chronic interstitial lung disease. No evidence of acute superimposed pneumonitis. Modified Barium Swallow 02/10/21 12:56 IMPRESSION: Vallecular retention with laryngeal penetration. 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 No CT evidence of intracranial bleed. No skull fracture. Normal CT scan does not rule out the possibility of hyperacute infarct in the first 12 hours. If patient symptoms persist may consider correlation with MRI, which is more sensitive for early acute infarct. Medications Medications Current Medications Generic Name Dose Route Start Last Admin Trade Name Freq PRN Reason Stop Dose Admin Acetaminophen 650 mg 01/09/21 15:51 02/01/21 09:10 Acetaminophen 325 Mg Tablet G-TUBE 650 mg Q4H PRN Administration Pain, Mild (Pain Scale 1-3) Al Hydroxide/Mg Hydroxide 30 ml 01/08/21 15:46 02/11/21 17:51 Magnesium Hydrox/Alum Hydrox 30 Ml Oral.Susp G-TUBE 30 ml Q4H PRN Administration Dyspepsia Amphetamine/Dextroamphetamine 5 mg 02/01/21 13:00 02/15/21 08:33 Amphetamine Mixed Salts 10 Mg Tablet G-TUBE 5 mg BID@0800,1300 [facility] Administration Budesonide 2 puff 12/31/20 20:00 02/15/21 08:34 Budesonide 180 Mcg Aer.Pow.Ba INHALE 2 puff RBID [facility] Administration Clotrimazole 1 appl 01/06/21 21:00 02/14/21 20:54 Clotrimazole 1 % Cream 15 Gm Tube TOPICAL 1 appl BID [facility] Administration Protocol Famotidine 20 mg 01/09/21 09:00 02/15/21 08:34 Famotidine 20 Mg Tablet G-TUBE 20 mg DAILY [facility] Administration Fluconazole 100 mg 02/04/21 18:00 02/15/21 08:34 Fluconazole 100 Mg Tablet G-TUBE 100 mg DAILY [facility] Administration Fluoxetine HCl 7.5 mg 02/02/21 09:00 02/15/21 08:34 Fluoxetine Hcl Oral Solution 20 Mg/5 Ml Solution PO 7.5 mg DAILY [facility] Administration Hydrocortisone 2.5 mg 01/23/21 19:00 02/14/21 19:23 Hydrocortisone 10 Mg Tablet PO 2.5 mg DAILY@1900 [facility] Administration Hydrocortisone 5 mg 01/23/21 13:00 02/14/21 13:13 Hydrocortisone 10 Mg Tablet PO 5 mg DAILY@1300 [facility] Administration Hydrocortisone 10 mg 01/28/21 08:00 02/15/21 08:33 Hydrocortisone 10 Mg Tablet PO 10 mg DAILY@0800 [facility] Administration Loperamide HCl 2 mg 02/13/21 14:00 Loperamide Hcl 2 Mg Capsule PO Q6H PRN Diarrhea Mirtazapine 7.5 mg 01/14/21 21:00 02/14/21 20:53 Mirtazapine 7.5 Mg Tablet G-TUBE 7.5 mg BEDTIME [facility] Administration Omeprazole 40 mg 01/08/21 16:30 02/15/21 05:54 Omeprazole 20 Mg/10 Ml Susp.Recon G-TUBE 40 mg BID@0630,1630 [facility] Administration Ondansetron HCl 4 mg 02/12/21 08:56 Ondansetron Hcl 4 Mg/2 Ml Vial IVPUSH ONCE PRN Nausea and Vomiting Thiamine HCl 100 mg 01/09/21 09:00 02/15/21 08:33 Thiamine Hcl 100 Mg Tablet G-TUBE 100 mg DAILY [facility] Administration Allergies Allergies Allergy/AdvReac Type Severity Reaction Status Date / Time Sulfa (Sulfonamide Allergy Unknown UNKNOWN Verified 12/01/20 09:47 Antibiotics) [SULFA (SULFONAMIDE ANTIBIOTICS)] zoster vaccine live Allergy Hives Verified 12/01/20 09:47 Assessment & Plan Assessment & Plan (1) Adrenal insufficiency: Status: Acute Code(s): E27.40 - Unspecified adrenocortical insufficiency (2) Bipolar I disorder with depression, severe: Status: Acute Code(s): F31.4 - Bipolar disorder, current episode depressed, severe, without psychotic features Assessment and Plan: 80M with adrenal insufficeincy, 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 Plan: Keep same treatment continue ECT consider referral to rehab setting cont prozac adderall swallowing study reviewed CT scan of head D/T fall normal Otherwise no change to treatment plan Greater than 50% of the session was spent on counseling and/or coordination of care Reason for contiued inpatient stay Substantial Risk for: inability to function, rapid decompensation and med/psych decompensation
[2021-02-16 06:32] VITALS: BP 109/52; PULSE 67; RESP 17; TEMP 36.8; O2SAT 93
[2021-02-16] MEDS: FLUoxetine HCl Oral Solution 20 MG/5 ML SOLUTION 7.5 MG PO (09:00)
[2021-02-16] MEDS: Amphetamine Mixed Salts 10 MG TABLET 5 MG G-TUBE ×2 (09:20→14:54)
[2021-02-16] MEDS: Fluconazole 100 MG TABLET G-TUBE (09:20)
[2021-02-16] MEDS: Thiamine HCL 100 MG TABLET G-TUBE (09:20)
[2021-02-16] MEDS: Famotidine 20 MG TABLET G-TUBE (09:20)
[2021-02-16] MEDS: Hydrocortisone 10 MG TABLET PO (09:26)
--- NOTE | 2021-02-16 11:15 | MHC.CLN ---
FOLLOW UP CONTINUES NPO WITH TUBE FEEDING OSMOLITE 1.5. NO NOTED CONCERNS WITH TUBE FEEDING. MODERATE, FAVORABOE WEIGHT GAIN X 1 WEEK, +2.9%, 2.6%. BMI=17.6 (UNDERWEIGHT). SHANT=17 (6/). FALL WITH SMALL ABRASIONS ON RIGHT ELBOW AND RIGH SIDE OF FOREHEAD. CONTINUE CURRENT TUBE FEED ORDER. MONITOR TUBE FEED TOLERANCE, RESIDUALS, AND LYTES.
[2021-02-16] MEDS: Hydrocortisone 10 MG TABLET 5 MG PO (14:55)
[2021-02-16 18:12] VITALS: BP 122/77; PULSE 78; RESP 18; TEMP 36.4; O2SAT 97
[2021-02-16] MEDS: Mirtazapine 7.5 MG TABLET G-TUBE (20:17)
[2021-02-16] MEDS: Hydrocortisone 10 MG TABLET 2.5 MG PO (20:17)
--- NOTE | 2021-02-16 21:03 | P.PNPSI_ITS ---
Subjective Subjective Date of Service: 02/16/21 Reason For Visit: severe depression Subjective Notes: Conditional Voluntary Guardianship: No Medical Problems Affecting Mental Status: Yes Interim History: Patient flat but significantly less depressed has been refused by 1 potential rehab setting for dysphasia Will hold off on ECT to let patient clear. He does have slowed mentation but is alert and oriented Medication Compliance: Yes Side effects from medications: No Attending Groups: No Mental Status Exam Mental Status Exam Patient Appearance: Appropriate Patient Orientation: Person, Place, Time (Needed cuing for month) and Situation Level of Consciousness: Awake and Follows Commands Patient Behavior: Appropriate Mood Description: Calm and Flat Affect Description: Calm, Appropriate, Flat and Apprehensive Patient Cognition Impaired: No Ability to Follow Directions: Good Speech Pattern: Clear Memory Description: Intact Hallucinations: None Delusions: Not Present Thought Process: Goal Oriented Thought Content: positive for Intact, negative for Suicidal Ideation and negative for Homicidal Ideation Depressive Symptoms: Increased Anxiety and Loss of Int. in Activity Judgement: Fair Diagnostics Vital Signs (24Hr): Vital Signs - 24 hr 02/16/21 06:32 02/16/21 18:12 Temperature 98.2 F 97.6 F Pulse Rate 67 78 Respiratory Rate 17 18 Blood Pressure 109/52 L 122/77 Pulse Oximetry 93 97 Body Mass Index 17.6 Labs Results: 01/15/21 14:51 02/04/21 08:57 Labs: Laboratory Results - last 48 hr 02/14/21 21:49 POC Glucose 115 Imaging Radiology Impressions: ITS Impressions Modified Barium Swallow 01/07/21 14:15 IMPRESSION: Laryngeal penetration and occasional aspiration as described above. Please refer to speech pathology report for details. Chest X-Ray 01/10/21 09:11 IMPRESSION: Severe chronic interstitial lung disease. No evidence of acute superimposed pneumonitis. Modified Barium Swallow 02/10/21 12:56 IMPRESSION: Vallecular retention with laryngeal penetration. 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 No CT evidence of intracranial bleed. No skull fracture. Normal CT scan does not rule out the possibility of hyperacute infarct in the first 12 hours. If patient symptoms persist may consider correlation with MRI, which is more sensitive for early acute infarct. Medications Medications Current Medications Generic Name Dose Route Start Last Admin Trade Name Freq PRN Reason Stop Dose Admin Acetaminophen 650 mg 01/09/21 15:51 02/01/21 09:10 Acetaminophen 325 Mg Tablet G-TUBE 650 mg Q4H PRN Administration Pain, Mild (Pain Scale 1-3) Al Hydroxide/Mg Hydroxide 30 ml 01/08/21 15:46 02/11/21 17:51 Magnesium Hydrox/Alum Hydrox 30 Ml Oral.Susp G-TUBE 30 ml Q4H PRN Administration Dyspepsia Amphetamine/Dextroamphetamine 5 mg 02/01/21 13:00 02/16/21 14:54 Amphetamine Mixed Salts 10 Mg Tablet G-TUBE 5 mg BID@0800,1300 [facility] Administration Budesonide 2 puff 12/31/20 20:00 02/16/21 14:39 Budesonide 180 Mcg Aer.Pow.Ba INHALE Not Given RBID [facility] Clotrimazole 1 appl 01/06/21 21:00 02/16/21 10:33 Clotrimazole 1 % Cream 15 Gm Tube TOPICAL Not Given BID [facility] Protocol Famotidine 20 mg 01/09/21 09:00 02/16/21 09:20 Famotidine 20 Mg Tablet G-TUBE 20 mg DAILY [facility] Administration Fluconazole 100 mg 02/04/21 18:00 02/16/21 09:20 Fluconazole 100 Mg Tablet G-TUBE 100 mg DAILY [facility] Administration Fluoxetine HCl 7.5 mg 02/02/21 09:00 02/16/21 09:00 Fluoxetine Hcl Oral Solution 20 Mg/5 Ml Solution PO 7.5 mg DAILY [facility] Administration Hydrocortisone 2.5 mg 01/23/21 19:00 02/16/21 20:17 Hydrocortisone 10 Mg Tablet PO 2.5 mg DAILY@1900 [facility] Administration Hydrocortisone 5 mg 01/23/21 13:00 02/16/21 14:55 Hydrocortisone 10 Mg Tablet PO 5 mg DAILY@1300 [facility] Administration Hydrocortisone 10 mg 01/28/21 08:00 02/16/21 09:26 Hydrocortisone 10 Mg Tablet PO 10 mg DAILY@0800 [facility] Administration Loperamide HCl 2 mg 02/13/21 14:00 Loperamide Hcl 2 Mg Capsule PO Q6H PRN Diarrhea Mirtazapine 7.5 mg 01/14/21 21:00 02/16/21 20:17 Mirtazapine 7.5 Mg Tablet G-TUBE 7.5 mg BEDTIME [facility] Administration Omeprazole 40 mg 01/08/21 16:30 02/16/21 17:35 Omeprazole 20 Mg/10 Ml Susp.Recon G-TUBE 40 mg BID@3830,3190 [facility] Administration Ondansetron HCl 4 mg 02/12/21 08:56 Ondansetron Hcl 4 Mg/2 Ml Vial IVPUSH ONCE PRN Nausea and Vomiting Thiamine HCl 100 mg 01/09/21 09:00 02/16/21 09:20 Thiamine Hcl 100 Mg Tablet G-TUBE 100 mg DAILY [facility] Administration Allergies Allergies Allergy/AdvReac Type Severity Reaction Status Date / Time Sulfa (Sulfonamide Allergy Unknown UNKNOWN Verified 12/01/20 09:47 Antibiotics) [SULFA (SULFONAMIDE ANTIBIOTICS)] zoster vaccine live Allergy Hives Verified 12/01/20 09:47 Assessment & Plan Assessment & Plan (1) Adrenal insufficiency: Status: Acute Code(s): E27.40 - Unspecified adrenocortical insufficiency (2) Bipolar I disorder with depression, severe: Status: Acute Code(s): F31.4 - Bipolar disorder, current episode depressed, severe, without psychotic features Assessment and Plan: 80-year-old male history pulmonary fibrosis bipolar depression adrenal insufficiency. Improvement with ECT has a PEG for dysphagia increase fluoxetine to to 10 mg daily check labs consideration of rehab referral evaluate need for further ECT Greater than 50% of the session was spent on counseling and/or coordination of care Reason for contiued inpatient stay Substantial Risk for: inability to function, rapid decompensation and med/psych decompensation
[2021-02-16] MEDS: Budesonide 180 MCG AER.POW.BA 2 PUFF INHALE (21:44)
--- NOTE | 2021-02-17 07:42 | HO.PSYCHPN ---
Subjective Subjective Date of Service: 02/17/21 Reason For Visit: severe depression Subjective Notes: Conditional Voluntary Guardianship: No Medical Problems Affecting Mental Status: Yes Interim History: pt generally improved but poor gait flat dysphoric Medication Compliance: Yes Side effects from medications: No Attending Groups: No Mental Status Exam Mental Status Exam Patient Appearance: Fatigued and Disheveled Patient Orientation: Person, Place, Time (Needed cuing for month) and Situation Level of Consciousness: Awake and Follows Commands Patient Behavior: Appropriate Mood Description: Calm and Flat Affect Description: Calm, Appropriate, Flat and Apprehensive Patient Cognition Impaired: No Ability to Follow Directions: Good Speech Pattern: Clear Memory Description: Intact Hallucinations: None Delusions: Not Present Thought Process: Goal Oriented Thought Content: positive for Intact, negative for Suicidal Ideation and negative for Homicidal Ideation Depressive Symptoms: Increased Anxiety and Loss of Int. in Activity Judgement: Fair Diagnostics Vital Signs (24Hr): Vital Signs - 24 hr 02/16/21 18:12 Temperature 97.6 F Pulse Rate 78 Respiratory Rate 18 Blood Pressure 122/77 Pulse Oximetry 97 Body Mass Index 17.6 Labs Results: 01/15/21 14:51 02/17/21 10:29 Imaging Radiology Impressions: ITS Impressions Modified Barium Swallow 01/07/21 14:15 IMPRESSION: Laryngeal penetration and occasional aspiration as described above. Please refer to speech pathology report for details. Chest X-Ray 01/10/21 09:11 IMPRESSION: Severe chronic interstitial lung disease. No evidence of acute superimposed pneumonitis. Modified Barium Swallow 02/10/21 12:56 IMPRESSION: Vallecular retention with laryngeal penetration. 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 No CT evidence of intracranial bleed. No skull fracture. Normal CT scan does not rule out the possibility of hyperacute infarct in the first 12 hours. If patient symptoms persist may consider correlation with MRI, which is more sensitive for early acute infarct. Medications Medications Current Medications Generic Name Dose Route Start Last Admin Trade Name Freq PRN Reason Stop Dose Admin Acetaminophen 650 mg 01/09/21 15:51 02/01/21 09:10 Acetaminophen 325 Mg Tablet G-TUBE 650 mg Q4H PRN Administration Pain, Mild (Pain Scale 1-3) Al Hydroxide/Mg Hydroxide 30 ml 01/08/21 15:46 02/11/21 17:51 Magnesium Hydrox/Alum Hydrox 30 Ml Oral.Susp G-TUBE 30 ml Q4H PRN Administration Dyspepsia Amphetamine/Dextroamphetamine 5 mg 02/01/21 13:00 02/16/21 14:54 Amphetamine Mixed Salts 10 Mg Tablet G-TUBE 5 mg BID@0800,1300 [facility] Administration Budesonide 2 puff 12/31/20 20:00 02/16/21 21:44 Budesonide 180 Mcg Aer.Pow.Ba INHALE 2 puff RBID [facility] Administration Clotrimazole 1 appl 01/06/21 21:00 02/16/21 21:44 Clotrimazole 1 % Cream 15 Gm Tube TOPICAL Not Given BID [facility] Protocol Famotidine 20 mg 01/09/21 09:00 02/16/21 09:20 Famotidine 20 Mg Tablet G-TUBE 20 mg DAILY [facility] Administration Fluconazole 100 mg 02/04/21 18:00 02/16/21 09:20 Fluconazole 100 Mg Tablet G-TUBE 100 mg DAILY [facility] Administration Fluoxetine HCl 7.5 mg 02/02/21 09:00 02/16/21 09:00 Fluoxetine Hcl Oral Solution 20 Mg/5 Ml Solution PO 7.5 mg DAILY [facility] Administration Hydrocortisone 2.5 mg 01/23/21 19:00 02/16/21 20:17 Hydrocortisone 10 Mg Tablet PO 2.5 mg DAILY@1900 [facility] Administration Hydrocortisone 5 mg 01/23/21 13:00 02/16/21 14:55 Hydrocortisone 10 Mg Tablet PO 5 mg DAILY@1300 [facility] Administration Hydrocortisone 10 mg 01/28/21 08:00 02/16/21 09:26 Hydrocortisone 10 Mg Tablet PO 10 mg DAILY@0800 [facility] Administration Loperamide HCl 2 mg 02/13/21 14:00 Loperamide Hcl 2 Mg Capsule PO Q6H PRN Diarrhea Mirtazapine 7.5 mg 01/14/21 21:00 02/16/21 20:17 Mirtazapine 7.5 Mg Tablet G-TUBE 7.5 mg BEDTIME [facility] Administration Omeprazole 40 mg 01/08/21 16:30 02/16/21 17:35 Omeprazole 20 Mg/10 Ml Susp.Recon G-TUBE 40 mg BID@0630,1630 [facility] Administration Ondansetron HCl 4 mg 02/12/21 08:56 Ondansetron Hcl 4 Mg/2 Ml Vial IVPUSH ONCE PRN Nausea and Vomiting Thiamine HCl 100 mg 01/09/21 09:00 02/16/21 09:20 Thiamine Hcl 100 Mg Tablet G-TUBE 100 mg DAILY [facility] Administration Allergies Allergies Allergy/AdvReac Type Severity Reaction Status Date / Time Sulfa (Sulfonamide Allergy Unknown UNKNOWN Verified 12/01/20 09:47 Antibiotics) [SULFA (SULFONAMIDE ANTIBIOTICS)] zoster vaccine live Allergy Hives Verified 12/01/20 09:47 Assessment & Plan Assessment & Plan (1) Adrenal insufficiency: Status: Acute Code(s): E27.40 - Unspecified adrenocortical insufficiency (2) Bipolar I disorder with depression, severe: Status: Acute Code(s): F31.4 - Bipolar disorder, current episode depressed, severe, without psychotic features Assessment and Plan: 80-year-old male history pulmonary fibrosis bipolar depression adrenal insufficiency. Improvement with ECT has a PEG for dysphagia increase fluoxetine to to 10 mg daily check labs consideration of rehab referral ect 02/19/21 Greater than 50% of the session was spent on counseling and/or coordination of care Reason for contiued inpatient stay Substantial Risk for: inability to function, rapid decompensation and med/psych decompensation
[2021-02-17 08:25] LABS: Glucose, Whole Blood 95 mg/dL (60-115)
[2021-02-17] MEDS: Amphetamine Mixed Salts 10 MG TABLET 5 MG G-TUBE ×2 (09:51→16:23)
[2021-02-17] MEDS: Famotidine 20 MG TABLET G-TUBE (09:51)
[2021-02-17] MEDS: Thiamine HCL 100 MG TABLET G-TUBE (09:51)
[2021-02-17] MEDS: Fluconazole 100 MG TABLET G-TUBE (09:52)
[2021-02-17] MEDS: Hydrocortisone 10 MG TABLET PO (09:52)
--- NOTE | 2021-02-17 10:36 | MHC.CLN ---
TUBE FEEDING TRANSITIONING TO BOLUS TUBE FEEDING. RD RECOMMENDS CONTINUE CURRENT FORMULA AND DAILY VOLUME SINCE PATIENT APPEARS TO BE TOLERATING WELL. WILL CHANGE TO BOLUS TUBE FEEDING: OSMOLITE 1.5, 240 CC, FIVE TIMES DAILY. NO ADDITIONAL FREE WATER FLUSHES. TUBE FEEDING TO PROVIDE 1200 CC FORMULA, 1800 KCAL, 75.2 G PROTEIN, 914 CC FREE WATER. LABS PENDING, DRAWN 6-[address] TO REVIEW. DISCUSSED WITH NURSE THAT FORMULA IN READY TO HANG AND ADDRESSED OPENING PRODUCT AND STORAGE OF OPENED FORMULA. SUGGESTED BOLUS FEEDING DURING THE DAY TO ACCOMMODATE PATIENT'S ECT TREATMENTS.
[2021-02-17 10:58] LABS: Magnesium 2.1 mg/dL (1.6-2.6); Phosphorus 3.5 mg/dL (2.7-4.5)
[2021-02-17 10:59] LABS: Alanine Aminotransferase 44 U/L (0-40); Albumin Level 3.2 g/dL (3.5-5.0); Alkaline Phosphatase 142 U/L (39-117); Anion Gap 11 (12-20); Aspartate Amino Transferase 32 U/L (5-37); Bilirubin Total 0.3 mg/dL (0.0-1.0); Blood Urea Nitrogen 23 mg/dL (9-16); Calcium 9.6 mg/dL (8.4-10.2); Carbon Dioxide 33 mmol/L (22-29); Chloride 97 mmol/L (96-108); Creatinine Clr Calc Pharmacy 45.1; Estimated Glomerular Filt Rate > 60; Glucose Random 103 mg/dL (60-115); Potassium 4.5 mmol/L (3.3-5.1); Sodium 136 mmol/L (135-145)
[2021-02-17 11:09] LABS: Estimated Average Glucose 111 mg/dL; Hemoglobin A1c % 5.5 %
[2021-02-17 11:46] LABS: Glucose, Whole Blood 136 mg/dL (60-115)
[2021-02-17] MEDS: Budesonide 180 MCG AER.POW.BA 2 PUFF INHALE ×2 (12:03→20:27)
[2021-02-17] MEDS: Hydrocortisone 10 MG TABLET 5 MG PO (16:23)
[2021-02-17 18:12] VITALS: BP 132/77; PULSE 77; RESP 18; O2SAT 96
[2021-02-17] MEDS: Mirtazapine 7.5 MG TABLET G-TUBE (20:10)
[2021-02-17] MEDS: Hydrocortisone 10 MG TABLET 2.5 MG PO (20:10)
[2021-02-17] MEDS: Clotrimazole 1 % Cream 15 GM TUBE 1 APPL TOPICAL ×2 (20:27→20:46)
[2021-02-17 21:52] LABS: Glucose, Whole Blood 161 mg/dL (60-115)
--- NOTE | 2021-02-17 22:12 | P.PNPSI_ITS ---
Subjective Subjective Date of Service: 02/18/21 Reason For Visit: severe depression Subjective Notes: Conditional Voluntary Medical Problems Affecting Mental Status: Yes Interim History: Patient seen with his psychiatric follow-up. Patient flat but feeling significantly better with course of ECT. He has been accepted at [facility]. Patient now on bolus feedings ect in am Medication Compliance: Yes Side effects from medications: No Mental Status Exam Mental Status Exam Patient Appearance: Fatigued and Disheveled Patient Orientation: Person, Place, Time (Needed cuing for month) and Situation Level of Consciousness: Awake and Follows Commands Patient Behavior: Appropriate Mood Description: Calm and Flat Affect Description: Calm, Appropriate, Flat and Apprehensive Patient Cognition Impaired: No Ability to Follow Directions: Good Speech Pattern: Clear Memory Description: Intact Hallucinations: None Delusions: Not Present Thought Process: Goal Oriented Thought Content: positive for Intact, negative for Suicidal Ideation and negative for Homicidal Ideation Depressive Symptoms: Increased Anxiety and Loss of Int. in Activity Judgement: Fair Diagnostics Vital Signs (24Hr): Vital Signs - 24 hr 02/17/21 18:12 Pulse Rate 77 Respiratory Rate 18 Blood Pressure 132/77 Pulse Oximetry 96 Body Mass Index 17.6 Labs Results: 01/15/21 14:51 02/17/21 10:29 Labs: Laboratory Results - last 48 hr 02/17/21 02/17/21 02/17/21 08:14 10:29 10:29 Sodium Potassium Chloride Carbon Dioxide Anion Gap BUN Creatinine Estim Creat Clear Calc Estimated GFR POC Glucose 95 Random Glucose Estimat Average Glucose 111 Hemoglobin A1c % 5.5 Calcium Phosphorus 3.5 Magnesium 2.1 Total Bilirubin AST ALT Alkaline Phosphatase Total Protein Albumin 02/17/21 02/17/21 02/17/21 10:29 11:42 21:47 Sodium 136 Potassium 4.5 Chloride 97 Carbon Dioxide 33 H Anion Gap 11 L BUN 23 H Creatinine 0.96 Estim Creat Clear Calc 45.1 Estimated GFR > 60 POC Glucose 136 H 161 H Random Glucose 103 D Estimat Average Glucose Hemoglobin A1c % Calcium 9.6 D Phosphorus Magnesium Total Bilirubin 0.3 AST 32 ALT 44 H Alkaline Phosphatase 142 H Total Protein 7.0 Albumin 3.2 L Imaging Radiology Impressions: ITS Impressions Modified Barium Swallow 01/07/21 14:15 IMPRESSION: Laryngeal penetration and occasional aspiration as described above. Please refer to speech pathology report for details. Chest X-Ray 01/10/21 09:11 IMPRESSION: Severe chronic interstitial lung disease. No evidence of acute superimposed pneumonitis. Modified Barium Swallow 02/10/21 12:56 IMPRESSION: Vallecular retention with laryngeal penetration. 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 No CT evidence of intracranial bleed. No skull fracture. Normal CT scan does not rule out the possibility of hyperacute infarct in the first 12 hours. If patient symptoms persist may consider correlation with MRI, which is more sensitive for early acute infarct. Medications Medications Current Medications Generic Name Dose Route Start Last Admin Trade Name Freq PRN Reason Stop Dose Admin Acetaminophen 650 mg 01/09/21 15:51 02/01/21 09:10 Acetaminophen 325 Mg Tablet G-TUBE 650 mg Q4H PRN Administration Pain, Mild (Pain Scale 1-3) Al Hydroxide/Mg Hydroxide 30 ml 01/08/21 15:46 02/11/21 17:51 Magnesium Hydrox/Alum Hydrox 30 Ml Oral.Susp G-TUBE 30 ml Q4H PRN Administration Dyspepsia Amphetamine/Dextroamphetamine 5 mg 02/01/21 13:00 02/17/21 16:23 Amphetamine Mixed Salts 10 Mg Tablet G-TUBE 5 mg BID@0800,1300 DOMINICK Administration Budesonide 2 puff 12/31/20 20:00 02/17/21 20:27 Budesonide 180 Mcg Aer.Pow.Ba INHALE 2 puff RBID DOMINICK Administration Clotrimazole 1 appl 01/06/21 21:00 02/17/21 20:46 Clotrimazole 1 % Cream 15 Gm Tube TOPICAL 1 appl BID DOMINICK Administration Protocol Famotidine 20 mg 01/09/21 09:00 02/17/21 09:51 Famotidine 20 Mg Tablet G-TUBE 20 mg DAILY DOMINICK Administration Fluoxetine HCl 10 mg 02/18/21 09:00 Fluoxetine Hcl Oral Solution 20 Mg/5 Ml Solution PO DAILY DOMINICK Hydrocortisone 2.5 mg 01/23/21 19:00 02/17/21 20:10 Hydrocortisone 10 Mg Tablet PO 2.5 mg DAILY@1900 DOMINICK Administration Hydrocortisone 5 mg 01/23/21 13:00 02/17/21 16:23 Hydrocortisone 10 Mg Tablet PO 5 mg DAILY@1300 DOMINICK Administration Hydrocortisone 10 mg 01/28/21 08:00 02/17/21 09:52 Hydrocortisone 10 Mg Tablet PO 10 mg DAILY@0800 DOMINICK Administration Loperamide HCl 2 mg 02/13/21 14:00 Loperamide Hcl 2 Mg Capsule PO Q6H PRN Diarrhea Mirtazapine 7.5 mg 01/14/21 21:00 02/17/21 20:10 Mirtazapine 7.5 Mg Tablet G-TUBE 7.5 mg BEDTIME DOMINICK Administration Omeprazole 40 mg 01/08/21 16:30 02/17/21 18:28 Omeprazole 20 Mg/10 Ml Susp.Recon G-TUBE 40 mg BID@0630,1630 DOMINICK Administration Ondansetron HCl 4 mg 02/12/21 08:56 Ondansetron Hcl 4 Mg/2 Ml Vial IVPUSH ONCE PRN Nausea and Vomiting Thiamine HCl 100 mg 01/09/21 09:00 02/17/21 09:51 Thiamine Hcl 100 Mg Tablet G-TUBE 100 mg DAILY DOMINICK Administration Allergies Allergies Allergy/AdvReac Type Severity Reaction Status Date / Time Sulfa (Sulfonamide Allergy Unknown UNKNOWN Verified 12/01/20 09:47 Antibiotics) [SULFA (SULFONAMIDE ANTIBIOTICS)] zoster vaccine live Allergy Hives Verified 12/01/20 09:47 Assessment & Plan Assessment & Plan (1) Adrenal insufficiency: Status: Acute Code(s): E27.40 - Unspecified adrenocortical insufficiency (2) Bipolar I disorder with depression, severe: Status: Acute Code(s): F31.4 - Bipolar disorder, current episode depressed, severe, without psychotic features Assessment and Plan: 80-year-old male history pulmonary fibrosis bipolar depression adrenal ins ufficiency. Improvement with ECT has a PEG for dysphagia increase fluoxetine to to 10 mg daily rehab referral ect 02/19/21 Greater than 50% of the session was spent on counseling and/or coordination of care Reason for contiued inpatient stay Substantial Risk for: inability to function, rapid decompensation and med/psych decompensation
[2021-02-18 06:32] VITALS: BP 109/63; PULSE 77; TEMP 36.5; O2SAT 95
[2021-02-18] MEDS: FLUoxetine HCl Oral Solution 20 MG/5 ML SOLUTION 10 MG PO (09:19)
[2021-02-18] MEDS: Amphetamine Mixed Salts 10 MG TABLET 5 MG G-TUBE ×2 (09:20→13:11)
[2021-02-18] MEDS: Thiamine HCL 100 MG TABLET G-TUBE (09:20)
[2021-02-18] MEDS: Hydrocortisone 10 MG TABLET PO (09:20)
[2021-02-18] MEDS: Famotidine 20 MG TABLET G-TUBE (09:21)
[2021-02-18] MEDS: Budesonide 180 MCG AER.POW.BA 2 PUFF INHALE ×2 (09:22→21:26)
[2021-02-18 09:29] LABS: Glucose, Whole Blood 85 mg/dL (60-115)
[2021-02-18 12:00] VITALS: BMI 17.5
[2021-02-18 12:11] LABS: Glucose, Whole Blood 115 mg/dL (60-115)
[2021-02-18] MEDS: Hydrocortisone 10 MG TABLET 5 MG PO (13:10)
[2021-02-18] MEDS: Loperamide HCl 2 MG CAPSULE PO (14:26)
[2021-02-18] MEDS: Hydrocortisone 10 MG TABLET 2.5 MG PO (18:35)
[2021-02-18 21:05] VITALS: BP 126/79; PULSE 76; TEMP 36.8; O2SAT 95
[2021-02-18] MEDS: Clotrimazole 1 % Cream 15 GM TUBE 1 APPL TOPICAL (21:26)
[2021-02-18] MEDS: Mirtazapine 7.5 MG TABLET G-TUBE (21:37)
[2021-02-18 23:48] LABS: Glucose, Whole Blood 135 mg/dL (60-115)
[2021-02-19] VITALS (10 sets, daily range): BP systolic 120–145; BP diastolic 72–84; PULSE 73–82; RESP 16–24; TEMP 36.3–36.8; O2SAT 93–100; BMI 17.5
[2021-02-19 05:41] LABS: Glucose, Whole Blood 79 mg/dL (60-115)
--- NOTE | 2021-02-19 05:55 | PC.NURSE ---
READY FOR ECT
--- NOTE | 2021-02-19 07:09 | HO.ANESPROP2 ---
[facility] Active Problems Active Problems: All Active Problems (Updated 01/22/21 @ 13:04 by Nile Quezada MD) Adrenal insufficiency (Acute) Severe protein-calorie malnutrition (Acute) Severe malnutrition (Acute) Chronic respiratory failure (Acute) Hyponatremia (Acute) Dysphagia (Acute) Metabolic encephalopathy (Acute) Pneumonia (Acute) Hypotension (Acute) Swallowing dysfunction (Acute) Increased oxygen demand (Acute) Pulmonary fibrosis (Acute) Bipolar I disorder with depression, severe (Acute) CKD (chronic kidney disease) stage 3, GFR 30-59 ml/min (Acute) Bipolar disorder (Acute) Past Medical History Medical History Anemia Anxiety Bronchiectasis Cerebrovascular disease Chronic hyponatremia Chronic respiratory failure CKD (chronic kidney disease) stage 3, GFR 30-59 ml/min Degenerative arthritis Depression History of electroconvulsive therapy Hx of bladder cancer Hydrocele Pulmonary fibrosis Pulmonary fibrosis Family History Family History Father Colon cancer Family history of problems with anesthesia: No Surgical History Surgical History History of bladder surgery History of Problems with Anesthesia: Yes (N&V) Social History Social History Household Members: Spouse Housing: Apartment Do you presently have visiting nurse or other home services: Yes Unable to assess alcohol history related to: Unable to respond and Unknown Cigarette Packs Per Day: 1 Cigarettes Per Day: 20.0 Years Smoked: 20 Smoked in Last 30 Days: No Patient Interested in Nicotine Replacement: No Patient Given Instructions on How to Stop Smoking: No Second Hand Smoke Exposure: No Use of substances other than those prescribed or required for medical reasons: No Substance Use Type: Marijuana Currently Displaying Signs/Symptoms of Drug Intoxication Withdrawal: No Spiritual Healthcare Practices: none Mosque Healthcare Practices: none Cultural Healthcare Practices: none Are you DNR?: No Advance Directives: Yes Advance Directives on File: Yes Advance Directives Date on File: 11/27/20 Do you have thoughts of harming others: None Do you have a plan to hurt others: No Plan Recently lost weight without trying: Yes How much weight loss: 2-13 pounds Eating poorly because of decreased appetite: Yes Nutrition screen score: 4 Nutrition Risks: Emaciation/Cachexia Poor oral hygiene: No service: No Current occupational status: retired and disabled Sexual orientation: Straight/Heterosexual Meds Allergies Allergy/AdvReac Type Severity Reaction Status Date / Time Sulfa (Sulfonamide Allergy Unknown UNKNOWN Verified 12/01/20 09:47 Antibiotics) [SULFA (SULFONAMIDE ANTIBIOTICS)] zoster vaccine live Allergy Hives Verified 12/01/20 09:47 Active Medications: Current Medications Generic Name Dose Route Start Last Admin Trade Name Freq PRN Reason Stop Dose Admin Acetaminophen 650 mg 01/09/21 15:51 02/01/21 09:10 Acetaminophen 325 Mg Tablet G-TUBE 650 mg Q4H PRN Administration Pain, Mild (Pain Scale 1-3) Al Hydroxide/Mg Hydroxide 30 ml 01/08/21 15:46 02/11/21 17:51 Magnesium Hydrox/Alum Hydrox 30 Ml Oral.Susp G-TUBE 30 ml Q4H PRN Administration Dyspepsia Amphetamine/Dextroamphetamine 5 mg 02/01/21 13:00 02/18/21 13:11 Amphetamine Mixed Salts 10 Mg Tablet G-TUBE 5 mg BID@0800,1300 DOMINICK Administration Budesonide 2 puff 12/31/20 20:00 02/18/21 21:26 Budesonide 180 Mcg Aer.Pow.Ba INHALE 2 puff RBID DOMINICK Administration Clotrimazole 1 appl 01/06/21 21:00 02/18/21 21:26 Clotrimazole 1 % Cream 15 Gm Tube TOPICAL 1 appl BID DOMINICK Administration Protocol Famotidine 20 mg 01/09/21 09:00 02/18/21 09:21 Famotidine 20 Mg Tablet G-TUBE 20 mg DAILY DOMINICK Administration Fluoxetine HCl 10 mg 02/18/21 09:00 02/18/21 09:19 Fluoxetine Hcl Oral Solution 20 Mg/5 Ml Solution PO 10 mg DAILY DOMINICK Administration Hydrocortisone 2.5 mg 01/23/21 19:00 02/18/21 18:35 Hydrocortisone 10 Mg Tablet PO 2.5 mg DAILY@1900 DOMINICK Administration Hydrocortisone 5 mg 01/23/21 13:00 02/18/21 13:10 Hydrocortisone 10 Mg Tablet PO 5 mg DAILY@1300 DOMINICK Administration Hydrocortisone 10 mg 01/28/21 08:00 02/18/21 09:20 Hydrocortisone 10 Mg Tablet PO 10 mg DAILY@0800 DOMINICK Administration Loperamide HCl 2 mg 02/18/21 21:30 Loperamide Hcl Oral Liquid 2 Mg/15 Ml Liquid G-TUBE Q6H PRN Diarrhea Mirtazapine 7.5 mg 01/14/21 21:00 02/18/21 21:37 Mirtazapine 7.5 Mg Tablet G-TUBE 7.5 mg BEDTIME DOMINICK Administration Omeprazole 40 mg 01/08/21 16:30 02/18/21 18:36 Omeprazole 20 Mg/10 Ml Susp.Recon G-TUBE 40 mg BID@0630,1630 DOMINICK Administration Ondansetron HCl 4 mg 02/12/21 08:56 Ondansetron Hcl 4 Mg/2 Ml Vial IVPUSH ONCE PRN Nausea and Vomiting Thiamine HCl 100 mg 01/09/21 09:00 02/18/21 09:20 Thiamine Hcl 100 Mg Tablet G-TUBE 100 mg DAILY DOMINICK Administration Home Medications Medication Instructions Recorded Confirmed Last Taken Type Latuda 1 tab PO DAILY 11/25/20 12/31/20 11/25/20 History Ofev 150 mg PO BID 11/25/20 12/31/20 11/25/20 History docusate sodium [Stool Softener] 1 cap PO BID PRN 11/25/20 12/31/20 11/25/20 History lorazepam 1 tab PO BID PRN 11/25/20 12/31/20 11/25/20 History mirtazapine 1 tab PO BEDTIME 11/25/20 12/31/20 11/24/20 History ondansetron 1 tab PO Q8H PRN 11/25/20 12/31/20 Unknown History quetiapine 37.5 mg PO BEDTIME 11/25/20 12/31/20 11/24/20 History Exam Exam Date and Time: February 19, 2021 0709 Height,Weight and Vital Signs: Height 5 ft 7 in Weight 50.802 kg Last Vital Signs Temp 97.9 F 02/19/21 06:31 Pulse 79 02/19/21 06:31 Resp 24 H 02/19/21 06:31 BP 131/77 02/19/21 06:31 Pulse Ox 95 02/19/21 06:31 Pertinent Lab Results Pertinent Lab Results: Laboratory Tests 01/01/21 01/05/21 01/08/21 14:34 15:05 07:46 WBC 10.6 RBC 3.17 L Hgb 10.0 L Hct 29.4 L MCV 92.7 MCH 31.5 MCHC 34.0 RDW 15.3 Plt Count 319 MPV 10.7 Immature Gran % (Auto) Neut % (Auto) Lymph % (Auto) [place] % (Auto) Eos % (Auto) Baso % (Auto) Lymph # (Auto) [place] # (Auto) Eos # (Auto) Baso # (Auto) Abs Immat Gran (auto) Absolute Neuts (auto) Absolute Nucleated RBC 0.000 Nucleated RBC % (auto) 0.0 Smear Tech's Comments PT INR D-Dimer O2 Saturation ABG pH at Pt Temp ABG pH (Temp Correct) ABG pCO2 at Pt Temp ABG pCO2 (Temp Corrct ABG pO2 at Pt Temp ABG pO2 (Temp Correct ABG HCO3 ABG Base Excess (Actual) Sodium 132 L 131 L Potassium 5.2 H 5.1 Chloride 97 96 Carbon Dioxide 27 26 Anion Gap 13 14 BUN 25 H Creatinine 1.00 Estim Creat Clear Calc 45.7 Estimated GFR > 60 POC Glucose Random Glucose 145 H D Fasting Glucose Estimat Average Glucose Hemoglobin A1c % Calcium 9.2 Phosphorus Magnesium Total Bilirubin 0.5 AST 36 D ALT 29 Alkaline Phosphatase 137 H D Troponin I High Sens Total Protein 6.7 D Albumin 3.1 L D Cortisol Baseline Cortisol 30 Minute Cortisol 60 Minute ACTH Resp to [place] Cortisol Sreekanth Time 1 Cortisol Sreekanth Time 2 Cortisol Sreekanth Time 3 ACTH Comment 01/08/21 01/09/21 01/10/21 07:46 07:12 09:26 WBC 18.1 H RBC 3.44 L Hgb 10.9 L Hct 31.8 L MCV 92.4 MCH 31.7 MCHC 34.3 RDW 15.2 Plt Count 347 MPV 10.8 Immature Gran % (Auto) Neut % (Auto) Lymph % (Auto) [place] % (Auto) Eos % (Auto) Baso % (Auto) Lymph # (Auto) [place] # (Auto) Eos # (Auto) Baso # (Auto) Abs Immat Gran (auto) Absolute Neuts (auto) Absolute Nucleated RBC 0.000 Nucleated RBC % (auto) 0.0 Smear Tech's Comments PT 13.5 H INR 1.1 D-Dimer 994 O2 Saturation ABG pH at Pt Temp ABG pH (Temp Correct) ABG pCO2 at Pt Temp ABG pCO2 (Temp Corrct ABG pO2 at Pt Temp ABG pO2 (Temp Correct ABG HCO3 ABG Base Excess (Actual) Sodium Potassium Chloride Carbon Dioxide Anion Gap BUN Creatinine Estim Creat Clear Calc Estimated GFR POC Glucose Random Glucose Fasting Glucose Estimat Average Glucose Hemoglobin A1c % Calcium Phosphorus Magnesium Total Bilirubin AST ALT Alkaline Phosphatase Troponin I High Sens Total Protein Albumin Cortisol Baseline Cortisol 30 Minute Cortisol 60 Minute ACTH Resp to [place] Cortisol Sreekanth Time 1 Cortisol Sreekanth Time 2 Cortisol Sreekanth Time 3 ACTH Comment 01/10/21 01/10/21 01/10/21 09:26 09:26 09:28 WBC 22.2 H RBC 3.38 L Hgb 10.8 L Hct 31.2 L MCV 92.3 MCH 32.0 MCHC 34.6 RDW 15.1 Plt Count 311 MPV 10.4 Immature Gran % (Auto) 0.5 H Neut % (Auto) 84.9 H Lymph % (Auto) 7.4 L [place] % (Auto) 7.1 Eos % (Auto) 0.0 Baso % (Auto) 0.1 Lymph # (Auto) 1.6 [place] # (Auto) 1.6 H Eos # (Auto) 0.0 Baso # (Auto) 0.0 Abs Immat Gran (auto) 0.12 H Absolute Neuts (auto) 18.8 H Absolute Nucleated RBC 0.000 Nucleated RBC % (auto) 0.0 Smear Tech's Comments VERIFIED PT INR D-Dimer O2 Saturation ABG pH at Pt Temp ABG pH (Temp Correct) ABG pCO2 at Pt Temp ABG pCO2 (Temp Corrct ABG pO2 at Pt Temp ABG pO2 (Temp Correct ABG HCO3 ABG Base Excess (Actual) Sodium 130 L Potassium 4.1 Chloride 95 L Carbon Dioxide 31 H Anion Gap 8 L BUN 18 H Creatinine 0.83 Estim Creat Clear Calc 53.1 Estimated GFR > 60 POC Glucose Random Glucose 151 H Fasting Glucose Estimat Average Glucose Hemoglobin A1c % Calcium 8.3 L D Phosphorus Magnesium Total Bilirubin AST ALT Alkaline Phosphatase Troponin I High Sens 14.4 D Total Protein Albumin Cortisol Baseline Cortisol 30 Minute Cortisol 60 Minute ACTH Resp to [place] Cortisol Sreekanth Time 1 Cortisol Sreekanth Time 2 Cortisol Sreekanth Time 3 ACTH Comment 01/10/21 01/13/21 01/15/21 09:49 07:56 14:51 WBC 11.2 H RBC 3.37 L Hgb 10.6 L Hct 31.9 L MCV 94.7 MCH 31.5 MCHC 33.2 RDW 15.5 Plt Count 382 MPV 10.7 Immature Gran % (Auto) 0.5 H Neut % (Auto) 79.8 H Lymph % (Auto) 13.3 L [place] % (Auto) 5.8 Eos % (Auto) 0.4 Baso % (Auto) 0.2 Lymph # (Auto) 1.5 [place] # (Auto) 0.7 Eos # (Auto) 0.1 Baso # (Auto) 0.0 Abs Immat Gran (auto) 0.06 H Absolute Neuts (auto) 8.9 H Absolute Nucleated RBC 0.000 Nucleated RBC % (auto) 0.0 Smear Tech's Comments PT INR D-Dimer O2 Saturation 98.0 ABG pH at Pt Temp 7.49 H ABG pH (Temp Correct) 7.49 H ABG pCO2 at Pt Temp 40 ABG pCO2 (Temp Corrct 40 ABG pO2 at Pt Temp 99 ABG pO2 (Temp Correct 101 ABG HCO3 31 H ABG Base Excess (Actual) 7.4 Sodium 133 L Potassium 4.6 Chloride 95 L Carbon Dioxide 33 H Anion Gap 10 L BUN 18 H Creatinine 0.78 Estim Creat Clear Calc 57.2 Estimated GFR > 60 POC Glucose Random Glucose 132 H Fasting Glucose Estimat Average Glucose Hemoglobin A1c % Calcium 8.5 Phosphorus Magnesium Total Bilirubin 0.4 AST 27 ALT 20 Alkaline Phosphatase 150 H Troponin I High Sens Total Protein 5.9 L Albumin 2.5 L Cortisol Baseline Cortisol 30 Minute Cortisol 60 Minute ACTH Resp to [place] Cortisol Sreekanth Time 1 Cortisol Sreekanth Time 2 Cortisol Sreekanth Time 3 ACTH Comment 01/15/21 01/18/21 01/19/21 14:51 15:36 22:29 WBC RBC Hgb Hct MCV MCH MCHC RDW Plt Count MPV Immature Gran % (Auto) Neut % (Auto) Lymph % (Auto) [place] % (Auto) Eos % (Auto) Baso % (Auto) Lymph # (Auto) [place] # (Auto) Eos # (Auto) Baso # (Auto) Abs Immat Gran (auto) Absolute Neuts (auto) Absolute Nucleated RBC Nucleated RBC % (auto) Smear Tech's Comments PT INR D-Dimer O2 Saturation ABG pH at Pt Temp ABG pH (Temp Correct) ABG pCO2 at Pt Temp ABG pCO2 (Temp Corrct ABG pO2 at Pt Temp ABG pO2 (Temp Correct ABG HCO3 ABG Base Excess (Actual) Sodium 132 L 132 L Potassium 5.1 5.1 Chloride 94 L 95 L Carbon Dioxide 32 H 31 H Anion Gap 11 L 11 L BUN 22 H Creatinine 0.88 Estim Creat Clear Calc 49.0 Estimated GFR > 60 POC Glucose 112 Random Glucose 165 H Fasting Glucose Estimat Average Glucose Hemoglobin A1c % Calcium 8.8 Phosphorus 3.0 Magnesium 2.1 Total Bilirubin 0.3 AST 34 ALT 55 H Alkaline Phosphatase 174 H Troponin I High Sens Total Protein 6.4 L Albumin 2.8 L Cortisol Baseline Cortisol 30 Minute Cortisol 60 Minute ACTH Resp to [place] Cortisol Sreekanth Time 1 Cortisol Sreekanth Time 2 Cortisol Sreekanth Time 3 ACTH Comment 01/20/21 01/20/21 01/20/21 05:55 08:29 12:08 WBC RBC Hgb Hct MCV MCH MCHC RDW Plt Count MPV Immature Gran % (Auto) Neut % (Auto) Lymph % (Auto) [place] % (Auto) Eos % (Auto) Baso % (Auto) Lymph # (Auto) [place] # (Auto) Eos # (Auto) Baso # (Auto) Abs Immat Gran (auto) Absolute Neuts (auto) Absolute Nucleated RBC Nucleated RBC % (auto) Smear Tech's Comments PT INR D-Dimer O2 Saturation ABG pH at Pt Temp ABG pH (Temp Correct) ABG pCO2 at Pt Temp ABG pCO2 (Temp Corrct ABG pO2 at Pt Temp ABG pO2 (Temp Correct ABG HCO3 ABG Base Excess (Actual) Sodium Potassium Chloride Carbon Dioxide Anion Gap BUN Creatinine Estim Creat Clear Calc Estimated GFR POC Glucose 111 127 H Random Glucose Fasting Glucose Estimat Average Glucose 117 Hemoglobin A1c % 5.7 Calcium Phosphorus Magnesium Total Bilirubin AST ALT Alkaline Phosphatase Troponin I High Sens Total Protein Albumin Cortisol Baseline Cortisol 30 Minute Cortisol 60 Minute ACTH Resp to [place] Cortisol Sreekanth Time 1 Cortisol Sreekanth Time 2 Cortisol Sreekanth Time 3 ACTH Comment 01/20/21 01/20/21 01/20/21 12:32 16:53 21:21 WBC RBC Hgb Hct MCV MCH MCHC RDW Plt Count MPV Immature Gran % (Auto) Neut % (Auto) Lymph % (Auto) [place] % (Auto) Eos % (Auto) Baso % (Auto) Lymph # (Auto) [place] # (Auto) Eos # (Auto) Baso # (Auto) Abs Immat Gran (auto) Absolute Neuts (auto) Absolute Nucleated RBC Nucleated RBC % (auto) Smear Tech's Comments PT INR D-Dimer O2 Saturation ABG pH at Pt Temp ABG pH (Temp Correct) ABG pCO2 at Pt Temp ABG pCO2 (Temp Corrct ABG pO2 at Pt Temp ABG pO2 (Temp Correct ABG HCO3 ABG Base Excess (Actual) Sodium Potassium Chloride Carbon Dioxide Anion Gap BUN Creatinine Estim Creat Clear Calc Estimated GFR POC Glucose 140 H 89 Random Glucose Fasting Glucose Estimat Average Glucose Hemoglobin A1c % Calcium Phosphorus Magnesium Total Bilirubin AST ALT Alkaline Phosphatase Troponin I High Sens Total Protein Albumin Cortisol Baseline 10.3 Cortisol 30 Minute 16.3 L Cortisol 60 Minute 19.8 L ACTH Resp to [place] 1132 Cortisol Sreekanth Time 1 0829 Cortisol Sreekanth Time 2 1206 Cortisol Sreekanth Time 3 1232 ACTH Comment See Below 01/21/21 01/21/21 01/21/21 05:43 11:36 18:05 WBC RBC Hgb Hct MCV MCH MCHC RDW Plt Count MPV Immature Gran % (Auto) Neut % (Auto) Lymph % (Auto) [place] % (Auto) Eos % (Auto) Baso % (Auto) Lymph # (Auto) [place] # (Auto) Eos # (Auto) Baso # (Auto) Abs Immat Gran (auto) Absolute Neuts (auto) Absolute Nucleated RBC Nucleated RBC % (auto) Smear Tech's Comments PT INR D-Dimer O2 Saturation ABG pH at Pt Temp ABG pH (Temp Correct) ABG pCO2 at Pt Temp ABG pCO2 (Temp Corrct ABG pO2 at Pt Temp ABG pO2 (Temp Correct ABG HCO3 ABG Base Excess (Actual) Sodium Potassium Chloride Carbon Dioxide Anion Gap BUN Creatinine Estim Creat Clear Calc Estimated GFR POC Glucose 130 H 130 H 118 H Random Glucose Fasting Glucose Estimat Average Glucose Hemoglobin A1c % Calcium Phosphorus Magnesium Total Bilirubin AST ALT Alkaline Phosphatase Troponin I High Sens Total Protein Albumin Cortisol Baseline Cortisol 30 Minute Cortisol 60 Minute ACTH Resp to [place] Cortisol Sreekanth Time 1 Cortisol Sreekanth Time 2 Cortisol Sreekanth Time 3 ACTH Comment 01/21/21 01/22/2101/22/21 20:09 05:36 12:41 WBC RBC Hgb Hct MCV MCH MCHC RDW Plt Count MPV Immature Gran % (Auto) Neut % (Auto) Lymph % (Auto) [place] % (Auto) Eos % (Auto) Baso % (Auto) Lymph # (Auto) [place] # (Auto) Eos # (Auto) Baso # (Auto) Abs Immat Gran (auto) Absolute Neuts (auto) Absolute Nucleated RBC Nucleated RBC % (auto) Smear Tech's Comments PT INR D-Dimer O2 Saturation ABG pH at Pt Temp ABG pH (Temp Correct) ABG pCO2 at Pt Temp ABG pCO2 (Temp Corrct ABG pO2 at Pt Temp ABG pO2 (Temp Correct ABG HCO3 ABG Base Excess (Actual) Sodium Potassium Chloride Carbon Dioxide Anion Gap BUN Creatinine Estim Creat Clear Calc Estimated GFR POC Glucose 100 119 H 152 H Random Glucose Fasting Glucose Estimat Average Glucose Hemoglobin A1c % Calcium Phosphorus Magnesium Total Bilirubin AST ALT Alkaline Phosphatase Troponin I High Sens Total Protein Albumin Cortisol Baseline Cortisol 30 Minute Cortisol 60 Minute ACTH Resp to [place] Cortisol Sreekanth Time 1 Cortisol Sreekanth Time 2 Cortisol Sreekanth Time 3 ACTH Comment 01/22/21 01/22/21 01/23/21 16:50 20:10 05:13 WBC RBC Hgb Hct MCV MCH MCHC RDW Plt Count MPV Immature Gran % (Auto) Neut % (Auto) Lymph % (Auto) [place] % (Auto) Eos % (Auto) Baso % (Auto) Lymph # (Auto) [place] # (Auto) Eos # (Auto) Baso # (Auto) Abs Immat Gran (auto) Absolute Neuts (auto) Absolute Nucleated RBC Nucleated RBC % (auto) Smear Tech's Comments PT INR D-Dimer O2 Saturation ABG pH at Pt Temp ABG pH (Temp Correct) ABG pCO2 at Pt Temp ABG pCO2 (Temp Corrct ABG pO2 at Pt Temp ABG pO2 (Temp Correct ABG HCO3 ABG Base Excess (Actual) Sodium Potassium Chloride Carbon Dioxide Anion Gap BUN Creatinine Estim Creat Clear Calc Estimated GFR POC Glucose 126 H 113 121 H Random Glucose Fasting Glucose Estimat Average Glucose Hemoglobin A1c % Calcium Phosphorus Magnesium Total Bilirubin AST ALT Alkaline Phosphatase Troponin I High Sens Total Protein Albumin Cortisol Baseline Cortisol 30 Minute Cortisol 60 Minute ACTH Resp to [place] Cortisol Sreekanth Time 1 Cortisol Sreekanth Time 2 Cortisol Sreekanth Time 3 ACTH Comment 01/23/21 01/23/21 01/23/21 07:49 12:01 16:52 WBC RBC Hgb Hct MCV MCH MCHC RDW Plt Count MPV Immature Gran % (Auto) Neut % (Auto) Lymph % (Auto) [place] % (Auto) Eos % (Auto) Baso % (Auto) Lymph # (Auto) [place] # (Auto) Eos # (Auto) Baso # (Auto) Abs Immat Gran (auto) Absolute Neuts (auto) Absolute Nucleated RBC Nucleated RBC % (auto) Smear Tech's Comments PT INR D-Dimer O2 Saturation ABG pH at Pt Temp ABG pH (Temp Correct) ABG pCO2 at Pt Temp ABG pCO2 (Temp Corrct ABG pO2 at Pt Temp ABG pO2 (Temp Correct ABG HCO3 ABG Base Excess (Actual) Sodium 133 L Potassium 4.6 Chloride 96 Carbon Dioxide 31 H Anion Gap 11 L BUN 20 H Creatinine 0.83 Estim Creat Clear Calc 51.9 Estimated GFR > 60 POC Glucose 122 H 137 H Random Glucose Fasting Glucose 125 H D Estimat Average Glucose Hemoglobin A1c % Calcium 8.7 Phosphorus Magnesium Total Bilirubin 0.2 AST 27 ALT 45 H Alkaline Phosphatase 154 H Troponin I High Sens Total Protein 6.1 L Albumin 2.8 L Cortisol Baseline Cortisol 30 Minute Cortisol 60 Minute ACTH Resp to [place] Cortisol Sreekanth Time 1 Cortisol Sreekanth Time 2 Cortisol Sreekanth Time 3 ACTH Comment 01/23/21 01/24/21 01/24/21 21:10 05:26 16:40 WBC RBC Hgb Hct MCV MCH MCHC RDW Plt Count MPV Immature Gran % (Auto) Neut % (Auto) Lymph % (Auto) [place] % (Auto) Eos % (Auto) Baso % (Auto) Lymph # (Auto) [place] # (Auto) Eos # (Auto) Baso # (Auto) Abs Immat Gran (auto) Absolute Neuts (auto) Absolute Nucleated RBC Nucleated RBC % (auto) Smear Tech's Comments PT INR D-Dimer O2 Saturation ABG pH at Pt Temp ABG pH (Temp Correct) ABG pCO2 at Pt Temp ABG pCO2 (Temp Corrct ABG pO2 at Pt Temp ABG pO2 (Temp Correct ABG HCO3 ABG Base Excess (Actual) Sodium Potassium Chloride Carbon Dioxide Anion Gap BUN Creatinine Estim Creat Clear Calc Estimated GFR POC Glucose 114 117 H 107 Random Glucose Fasting Glucose Estimat Average Glucose Hemoglobin A1c % Calcium Phosphorus Magnesium Total Bilirubin AST ALT Alkaline Phosphatase Troponin I High Sens Total Protein Albumin Cortisol Baseline Cortisol 30 Minute Cortisol 60 Minute ACTH Resp to [place] Cortisol Sreekanth Time 1 Cortisol Sreekanth Time 2 Cortisol Sreekanth Time 3 ACTH Comment 01/25/21 01/25/21 01/25/21 05:25 12:11 16:47 WBC RBC Hgb Hct MCV MCH MCHC RDW Plt Count MPV Immature Gran % (Auto) Neut % (Auto) Lymph % (Auto) [place] % (Auto) Eos % (Auto) Baso % (Auto) Lymph # (Auto) [place] # (Auto) Eos # (Auto) Baso # (Auto) Abs Immat Gran (auto) Absolute Neuts (auto) Absolute Nucleated RBC Nucleated RBC % (auto) Smear Tech's Comments PT INR D-Dimer O2 Saturation ABG pH at Pt Temp ABG pH (Temp Correct) ABG pCO2 at Pt Temp ABG pCO2 (Temp Corrct ABG pO2 at Pt Temp ABG pO2 (Temp Correct ABG HCO3 ABG Base Excess (Actual) Sodium Potassium Chloride Carbon Dioxide Anion Gap BUN Creatinine Estim Creat Clear Calc Estimated GFR POC Glucose 90 155 H 145 H Random Glucose Fasting Glucose Estimat Average Glucose Hemoglobin A1c % Calcium Phosphorus Magnesium Total Bilirubin AST ALT Alkaline Phosphatase Troponin I High Sens Total Protein Albumin Cortisol Baseline Cortisol 30 Minute Cortisol 60 Minute ACTH Resp to [place] Cortisol Sreekanth Time 1 Cortisol Sreekanth Time 2 Cortisol Sreekanth Time 3 ACTH Comment 01/25/21 01/26/21 01/26/21 19:59 05:53 16:28 WBC RBC Hgb Hct MCV MCH MCHC RDW Plt Count MPV Immature Gran % (Auto) Neut % (Auto) Lymph % (Auto) [place] % (Auto) Eos % (Auto) Baso % (Auto) Lymph # (Auto) [place] # (Auto) Eos # (Auto) Baso # (Auto) Abs Immat Gran (auto) Absolute Neuts (auto) Absolute Nucleated RBC Nucleated RBC % (auto) Smear Tech's Comments PT INR D-Dimer O2 Saturation ABG pH at Pt Temp ABG pH (Temp Correct) ABG pCO2 at Pt Temp ABG pCO2 (Temp Corrct ABG pO2 at Pt Temp ABG pO2 (Temp Correct ABG HCO3 ABG Base Excess (Actual) Sodium Potassium Chloride Carbon Dioxide Anion Gap BUN Creatinine Estim Creat Clear Calc Estimated GFR POC Glucose 84 124 H 123 H Random Glucose Fasting Glucose Estimat Average Glucose Hemoglobin A1c % Calcium Phosphorus Magnesium Total Bilirubin AST ALT Alkaline Phosphatase Troponin I High Sens Total Protein Albumin Cortisol Baseline Cortisol 30 Minute Cortisol 60 Minute ACTH Resp to [place] Cortisol Sreekanth Time 1 Cortisol Sreekanth Time 2 Cortisol Sree[place]nth Time 3 ACTH Comment 01/27/21 01/27/21 01/27/21 05:28 16:38 21:43 WBC RBC Hgb Hct MCV MCH MCHC RDW Plt Count MPV Immature Gran % (Auto) Neut % (Auto) Lymph % (Auto) [place] % (Auto) Eos % (Auto) Baso % (Auto) Lymph # (Auto) [place] # (Auto) Eos # (Auto) Baso # (Auto) Abs Immat Gran (auto) Absolute Neuts (auto) Absolute Nucleated RBC Nucleated RBC % (auto) Smear Tech's Comments PT INR D-Dimer O2 Saturation ABG pH at Pt Temp ABG pH (Temp Correct) ABG pCO2 at Pt Temp ABG pCO2 (Temp Corrct ABG pO2 at Pt Temp ABG pO2 (Temp Correct ABG HCO3 ABG Base Excess (Actual) Sodium Potassium Chloride Carbon Dioxide Anion Gap BUN Creatinine Estim Creat Clear Calc Estimated GFR POC Glucose 93 127 H 103 Random Glucose Fasting Glucose Estimat Average Glucose Hemoglobin A1c % Calcium Phosphorus Magnesium Total Bilirubin AST ALT Alkaline Phosphatase Troponin I High Sens Total Protein Albumin Cortisol Baseline Cortisol 30 Minute Cortisol 60 Minute ACTH Resp to [place] Cortisol Sreekanth Time 1 Cortisol Sreekanth Time 2 Cortisol Sreekanth Time 3 ACTH Comment 01/28/21 01/28/21 01/28/21 05:56 08:19 16:13 WBC RBC Hgb Hct MCV MCH MCHC RDW Plt Count MPV Immature Gran % (Auto) Neut % (Auto) Lymph % (Auto) [place] % (Auto) Eos % (Auto) Baso % (Auto) Lymph # (Auto) [place] # (Auto) Eos # (Auto) Baso # (Auto) Abs Immat Gran (auto) Absolute Neuts (auto) Absolute Nucleated RBC Nucleated RBC % (auto) Smear Tech's Comments PT INR D-Dimer O2 Saturation ABG pH at Pt Temp ABG pH (Temp Correct) ABG pCO2 at Pt Temp ABG pCO2 (Temp Corrct ABG pO2 at Pt Temp ABG pO2 (Temp Correct ABG HCO3 ABG Base Excess (Actual) Sodium 136 Potassium 4.7 Chloride 99 Carbon Dioxide 33 H Anion Gap 9 L BUN 22 H Creatinine 0.86 Estim Creat Clear Calc 50.1 Estimated GFR > 60 POC Glucose 117 H 142 H Random Glucose Fasting Glucose 128 H Estimat Average Glucose Hemoglobin A1c % Calcium 8.6 Phosphorus Magnesium Total Bilirubin 0.4 AST 26 ALT 38 Alkaline Phosphatase 137 H Troponin I High Sens Total Protein 5.9 L Albumin 2.7 L Cortisol Baseline Cortisol 30 Minute Cortisol 60 Minute ACTH Resp to [place] Cortisol Sreekanth Time 1 Cortisol Sreekanth Time 2 Cortisol Sreekanth Time 3 ACTH Comment 01/28/21 01/29/21 01/29/21 19:51 06:42 13:57 WBC RBC Hgb Hct MCV MCH MCHC RDW Plt Count MPV Immature Gran % (Auto) Neut % (Auto) Lymph % (Auto) [place] % (Auto) Eos % (Auto) Baso % (Auto) Lymph # (Auto) [place] # (Auto) Eos # (Auto) Baso # (Auto) Abs Immat Gran (auto) Absolute Neuts (auto) Absolute Nucleated RBC Nucleated RBC % (auto) Smear Tech's Comments PT INR D-Dimer O2 Saturation ABG pH at Pt Temp ABG pH (Temp Correct) ABG pCO2 at Pt Temp ABG pCO2 (Temp Corrct ABG pO2 at Pt Temp ABG pO2 (Temp Correct ABG HCO3 ABG Base Excess (Actual) Sodium Potassium Chloride Carbon Dioxide Anion Gap BUN Creatinine Estim Creat Clear Calc Estimated GFR POC Glucose 152 H 87 102 Random Glucose Fasting Glucose Estimat Average Glucose Hemoglobin A1c % Calcium Phosphorus Magnesium Total Bilirubin AST ALT Alkaline Phosphatase Troponin I High Sens Total Protein Albumin Cortisol Baseline Cortisol 30 Minute Cortisol 60 Minute ACTH Resp to [facility] Cortisol Sreekanth Time 1 Cortisol Sreekanth Time 2 Cortisol Sreekanth Time 3 ACTH Comment 01/29/21 01/30/21 01/30/21 20:24 06:45 11:58 WBC RBC Hgb Hct MCV MCH MCHC RDW Plt Count MPV Immature Gran % (Auto) Neut % (Auto) Lymph % (Auto) [place] % (Auto) Eos % (Auto) Baso % (Auto) Lymph # (Auto) [place] # (Auto) Eos # (Auto) Baso # (Auto) Abs Immat Gran (auto) Absolute Neuts (auto) Absolute Nucleated RBC Nucleated RBC % (auto) Smear Tech's Comments PT INR D-Dimer O2 Saturation ABG pH at Pt Temp ABG pH (Temp Correct) ABG pCO2 at Pt Temp ABG pCO2 (Temp Corrct ABG pO2 at Pt Temp ABG pO2 (Temp Correct ABG HCO3 ABG Base Excess (Actual) Sodium Potassium Chloride Carbon Dioxide Anion Gap BUN Creatinine Estim Creat Clear Calc Estimated GFR POC Glucose 148 H 126 H 120 H Random Glucose Fasting Glucose Estimat Average Glucose Hemoglobin A1c % Calcium Phosphorus Magnesium Total Bilirubin AST ALT Alkaline Phosphatase Troponin I High Sens Total Protein Albumin Cortisol Baseline Cortisol 30 Minute Cortisol 60 Minute ACTH Resp to [facility] Cortisol Sreekanth Time 1 Cortisol Sreekanth Time 2 Cortisol Sreekanth Time 3 ACTH Comment 01/30/21 01/30/21 01/31/21 16:53 21:01 06:19 WBC RBC Hgb Hct MCV MCH MCHC RDW Plt Count MPV Immature Gran % (Auto) Neut % (Auto) Lymph % (Auto) [place] % (Auto) Eos % (Auto) Baso % (Auto) Lymph # (Auto) [place] # (Auto) Eos # (Auto) Baso # (Auto) Abs Immat Gran (auto) Absolute Neuts (auto) Absolute Nucleated RBC Nucleated RBC % (auto) Smear Tech's Comments PT INR D-Dimer O2 Saturation ABG pH at Pt Temp ABG pH (Temp Correct) ABG pCO2 at Pt Temp ABG pCO2 (Temp Corrct ABG pO2 at Pt Temp ABG pO2 (Temp Correct ABG HCO3 ABG Base Excess (Actual) Sodium Potassium Chloride Carbon Dioxide Anion Gap BUN Creatinine Estim Creat Clear Calc Estimated GFR POC Glucose 113 117 H 123 H Random Glucose Fasting Glucose Estimat Average Glucose Hemoglobin A1c % Calcium Phosphorus Magnesium Total Bilirubin AST ALT Alkaline Phosphatase Troponin I High Sens Total Protein Albumin Cortisol Baseline Cortisol 30 Minute Cortisol 60 Minute ACTH Resp to [facility] Cortisol Sreekanth Time 1 Cortisol Sreekanth Time 2 Cortisol Sreekanth Time 3 ACTH Comment 01/31/21 01/31/21 01/31/21 12:07 16:39 20:56 WBC RBC Hgb Hct MCV MCH MCHC RDW Plt Count MPV Immature Gran % (Auto) Neut % (Auto) Lymph % (Auto) [place] % (Auto) Eos % (Auto) Baso % (Auto) Lymph # (Auto) [place] # (Auto) Eos # (Auto) Baso # (Auto) Abs Immat Gran (auto) Absolute Neuts (auto) Absolute Nucleated RBC Nucleated RBC % (auto) Smear Tech's Comments PT INR D-Dimer O2 Saturation ABG pH at Pt Temp ABG pH (Temp Correct) ABG pCO2 at Pt Temp ABG pCO2 (Temp Corrct ABG pO2 at Pt Temp ABG pO2 (Temp Correct ABG HCO3 ABG Base Excess (Actual) Sodium Potassium Chloride Carbon Dioxide Anion Gap BUN Creatinine Estim Creat Clear Calc Estimated GFR POC Glucose 129 H 112 141 H Random Glucose Fasting Glucose Estimat Average Glucose Hemoglobin A1c % Calcium Phosphorus Magnesium Total Bilirubin AST ALT Alkaline Phosphatase Troponin I High Sens Total Protein Albumin Cortisol Baseline Cortisol 30 Minute Cortisol 60 Minute ACTH Resp to [facility] Cortisol Sreekanth Time 1 Cortisol Sreekanth Time 2 Cortisol Sreekanth Time 3 ACTH Comment 02/01/21 02/01/21 02/01/21 06:23 11:35 16:46 WBC RBC Hgb Hct MCV MCH MCHC RDW Plt Count MPV Immature Gran % (Auto) Neut % (Auto) Lymph % (Auto) [place] % (Auto) Eos % (Auto) Baso % (Auto) Lymph # (Auto) [place] # (Auto) Eos # (Auto) Baso # (Auto) Abs Immat Gran (auto) Absolute Neuts (auto) Absolute Nucleated RBC Nucleated RBC % (auto) Smear Tech's Comments PT INR D-Dimer O2 Saturation ABG pH at Pt Temp ABG pH (Temp Correct) ABG pCO2 at Pt Temp ABG pCO2 (Temp Corrct ABG pO2 at Pt Temp ABG pO2 (Temp Correct ABG HCO3 ABG Base Excess (Actual) Sodium Potassium Chloride Carbon Dioxide Anion Gap BUN Creatinine Estim Creat Clear Calc Estimated GFR POC Glucose 99 95 143 H Random Glucose Fasting Glucose Estimat Average Glucose Hemoglobin A1c % Calcium Phosphorus Magnesium Total Bilirubin AST ALT Alkaline Phosphatase Troponin I High Sens Total Protein Albumin Cortisol Baseline Cortisol 30 Minute Cortisol 60 Minute ACTH Resp to [facility] Cortisol Sreekanth Time 1 Cortisol Sreekanth Time 2 Cortisol Sreekanth Time 3 ACTH Comment 02/01/21 02/02/21 02/02/21 21:31 05:31 12:13 WBC RBC Hgb Hct MCV MCH MCHC RDW Plt Count MPV Immature Gran % (Auto) Neut % (Auto) Lymph % (Auto) [place] % (Auto) Eos % (Auto) Baso % (Auto) Lymph # (Auto) [place] # (Auto) Eos # (Auto) Baso # (Auto) Abs Immat Gran (auto) Absolute Neuts (auto) Absolute Nucleated RBC Nucleated RBC % (auto) Smear Tech's Comments PT INR D-Dimer O2 Saturation ABG pH at Pt Temp ABG pH (Temp Correct) ABG pCO2 at Pt Temp ABG pCO2 (Temp Corrct ABG pO2 at Pt Temp ABG pO2 (Temp Correct ABG HCO3 ABG Base Excess (Actual) Sodium Potassium Chloride Carbon Dioxide Anion Gap BUN Creatinine Estim Creat Clear Calc Estimated GFR POC Glucose 129 H 130 H 132 H Random Glucose Fasting Glucose Estimat Average Glucose Hemoglobin A1c % Calcium Phosphorus Magnesium Total Bilirubin AST ALT Alkaline Phosphatase Troponin I High Sens Total Protein Albumin Cortisol Baseline Cortisol 30 Minute Cortisol 60 Minute ACTH Resp to [facility] Cortisol Sreekanth Time 1 Cortisol Sreekanth Time 2 Cortisol Sreekanth Time 3 ACTH Comment 02/02/21 02/02/21 02/03/21 16:33 21:32 05:34 WBC RBC Hgb Hct MCV MCH MCHC RDW Plt Count MPV Immature Gran % (Auto) Neut % (Auto) Lymph % (Auto) [place] % (Auto) Eos % (Auto) Baso % (Auto) Lymph # (Auto) [place] # (Auto) Eos # (Auto) Baso # (Auto) Abs Immat Gran (auto) Absolute Neuts (auto) Absolute Nucleated RBC Nucleated RBC % (auto) Smear Tech's Comments PT INR D-Dimer O2 Saturation ABG pH at Pt Temp ABG pH (Temp Correct) ABG pCO2 at Pt Temp ABG pCO2 (Temp Corrct ABG pO2 at Pt Temp ABG pO2 (Temp Correct ABG HCO3 ABG Base Excess (Actual) Sodium Potassium Chloride Carbon Dioxide Anion Gap BUN Creatinine Estim Creat Clear Calc Estimated GFR POC Glucose 139 H 130 H 85 Random Glucose Fasting Glucose Estimat Average Glucose Hemoglobin A1c % Calcium Phosphorus Magnesium Total Bilirubin AST ALT Alkaline Phosphatase Troponin I High Sens Total Protein Albumin Cortisol Baseline Cortisol 30 Minute Cortisol 60 Minute ACTH Resp to [facility] Cortisol Sreekanth Time 1 Cortisol Sreekanth Time 2 Cortisol Sreekanth Time 3 ACTH Comment 02/03/21 02/03/21 02/03/21 13:14 16:48 19:48 WBC RBC Hgb Hct MCV MCH MCHC RDW Plt Count MPV Immature Gran % (Auto) Neut % (Auto) Lymph % (Auto) [place] % (Auto) Eos % (Auto) Baso % (Auto) Lymph # (Auto) [place] # (Auto) Eos # (Auto) Baso # (Auto) Abs Immat Gran (auto) Absolute Neuts (auto) Absolute Nucleated RBC Nucleated RBC % (auto) Smear Tech's Comments PT INR D-Dimer O2 Saturation ABG pH at Pt Temp ABG pH (Temp Correct) ABG pCO2 at Pt Temp ABG pCO2 (Temp Corrct ABG pO2 at Pt Temp ABG pO2 (Temp Correct ABG HCO3 ABG Base Excess (Actual) Sodium Potassium Chloride Carbon Dioxide Anion Gap BUN Creatinine Estim Creat Clear Calc Estimated GFR POC Glucose 129 H 144 H 138 H Random Glucose Fasting Glucose Estimat Average Glucose Hemoglobin A1c % Calcium Phosphorus Magnesium Total Bilirubin AST ALT Alkaline Phosphatase Troponin I High Sens Total Protein Albumin Cortisol Baseline Cortisol 30 Minute Cortisol 60 Minute ACTH Resp to [facility] Cortisol Sreekanth Time 1 Cortisol Sreekanth Time 2 Cortisol Sreekanth Time 3 ACTH Comment 02/04/21 02/04/21 02/04/21 05:28 08:57 13:55 WBC RBC Hgb Hct MCV MCH MCHC RDW Plt Count MPV Immature Gran % (Auto) Neut % (Auto) Lymph % (Auto) [place] % (Auto) Eos % (Auto) Baso % (Auto) Lymph # (Auto) [place] # (Auto) Eos # (Auto) Baso # (Auto) Abs Immat Gran (auto) Absolute Neuts (auto) Absolute Nucleated RBC Nucleated RBC % (auto) Smear Tech's Comments PT INR D-Dimer O2 Saturation ABG pH at Pt Temp ABG pH (Temp Correct) ABG pCO2 at Pt Temp ABG pCO2 (Temp Corrct ABG pO2 at Pt Temp ABG pO2 (Temp Correct ABG HCO3 ABG Base Excess (Actual) Sodium 134 L Potassium 4.8 Chloride 99 Carbon Dioxide 28 Anion Gap 12 BUN 20 H Creatinine 0.80 Estim Creat Clear Calc 53.8 Estimated GFR > 60 POC Glucose 87 156 H Random Glucose Fasting Glucose 89 Estimat Average Glucose Hemoglobin A1c % Calcium 8.8 Phosphorus Magnesium Total Bilirubin 0.3 AST 30 ALT 37 Alkaline Phosphatase 140 H Troponin I High Sens Total Protein 6.5 Albumin 2.8 L Cortisol Baseline Cortisol 30 Minute Cortisol 60 Minute ACTH Resp to [facility] Cortisol Sreekanth Time 1 Cortisol Sreekanth Time 2 Cortisol Sreekanth Time 3 ACTH Comment 02/04/21 02/04/21 02/05/21 16:33 20:18 05:52 WBC RBC Hgb Hct MCV MCH MCHC RDW Plt Count MPV Immature Gran % (Auto) Neut % (Auto) Lymph % (Auto) [place] % (Auto) Eos % (Auto) Baso % (Auto) Lymph # (Auto) [place] # (Auto) Eos # (Auto) Baso # (Auto) Abs Immat Gran (auto) Absolute Neuts (auto) Absolute Nucleated RBC Nucleated RBC % (auto) Smear Tech's Comments PT INR D-Dimer O2 Saturation ABG pH at Pt Temp ABG pH (Temp Correct) ABG pCO2 at Pt Temp ABG pCO2 (Temp Corrct ABG pO2 at Pt Temp ABG pO2 (Temp Correct ABG HCO3 ABG Base Excess (Actual) Sodium Potassium Chloride Carbon Dioxide Anion Gap BUN Creatinine Estim Creat Clear Calc Estimated GFR POC Glucose 162 H 143 H 84 Random Glucose Fasting Glucose Estimat Average Glucose Hemoglobin A1c % Calcium Phosphorus Magnesium Total Bilirubin AST ALT Alkaline Phosphatase Troponin I High Sens Total Protein Albumin Cortisol Baseline Cortisol 30 Minute Cortisol 60 Minute ACTH Resp to [facility] Cortisol Sreekanth Time 1 Cortisol Sreekanth Time 2 Cortisol Sreekanth Time 3 ACTH Comment 02/05/21 02/05/21 02/06/21 18:17 20:10 06:25 WBC RBC Hgb Hct MCV MCH MCHC RDW Plt Count MPV Immature Gran % (Auto) Neut % (Auto) Lymph % (Auto) [place] % (Auto) Eos % (Auto) Baso % (Auto) Lymph # (Auto) [place] # (Auto) Eos # (Auto) Baso # (Auto) Abs Immat Gran (auto) Absolute Neuts (auto) Absolute Nucleated RBC Nucleated RBC % (auto) Smear Tech's Comments PT INR D-Dimer O2 Saturation ABG pH at Pt Temp ABG pH (Temp Correct) ABG pCO2 at Pt Temp ABG pCO2 (Temp Corrct ABG pO2 at Pt Temp ABG pO2 (Temp Correct ABG HCO3 ABG Base Excess (Actual) Sodium Potassium Chloride Carbon Dioxide Anion Gap BUN Creatinine Estim Creat Clear Calc Estimated GFR POC Glucose 134 H 148 H 81 Random Glucose Fasting Glucose Estimat Average Glucose Hemoglobin A1c % Calcium Phosphorus Magnesium Total Bilirubin AST ALT Alkaline Phosphatase Troponin I High Sens Total Protein Albumin Cortisol Baseline Cortisol 30 Minute Cortisol 60 Minute ACTH Resp to [facility] Cortisol Sreekanth Time 1 Cortisol Sreekanth Time 2 Cortisol Sreekanth Time 3 ACTH Comment 02/06/21 02/06/21 02/07/21 16:40 21:30 05:57 WBC RBC Hgb Hct MCV MCH MCHC RDW Plt Count MPV Immature Gran % (Auto) Neut % (Auto) Lymph % (Auto) [place] % (Auto) Eos % (Auto) Baso % (Auto) Lymph # (Auto) [place] # (Auto) Eos # (Auto) Baso # (Auto) Abs Immat Gran (auto) Absolute Neuts (auto) Absolute Nucleated RBC Nucleated RBC % (auto) Smear Tech's Comments PT INR D-Dimer O2 Saturation ABG pH at Pt Temp ABG pH (Temp Correct) ABG pCO2 at Pt Temp ABG pCO2 (Temp Corrct ABG pO2 at Pt Temp ABG pO2 (Temp Correct ABG HCO3 ABG Base Excess (Actual) Sodium Potassium Chloride Carbon Dioxide Anion Gap BUN Creatinine Estim Creat Clear Calc Estimated GFR POC Glucose 137 H 130 H 103 Random Glucose Fasting Glucose Estimat Average Glucose Hemoglobin A1c % Calcium Phosphorus Magnesium Total Bilirubin AST ALT Alkaline Phosphatase Troponin I High Sens Total Protein Albumin Cortisol Baseline Cortisol 30 Minute Cortisol 60 Minute ACTH Resp to [facility] Cortisol Sreekanth Time 1 Cortisol Sreekanth Time 2 Cortisol Sreekanth Time 3 ACTH Comment 02/07/21 02/07/21 02/07/21 11:30 16:23 20:01 WBC RBC Hgb Hct MCV MCH MCHC RDW Plt Count MPV Immature Gran % (Auto) Neut % (Auto) Lymph % (Auto) [place] % (Auto) Eos % (Auto) Baso % (Auto) Lymph # (Auto) [place] # (Auto) Eos # (Auto) Baso # (Auto) Abs Immat Gran (auto) Absolute Neuts (auto) Absolute Nucleated RBC Nucleated RBC % (auto) Smear Tech's Comments PT INR D-Dimer O2 Saturation ABG pH at Pt Temp ABG pH (Temp Correct) ABG pCO2 at Pt Temp ABG pCO2 (Temp Corrct ABG pO2 at Pt Temp ABG pO2 (Temp Correct ABG HCO3 ABG Base Excess (Actual) Sodium Potassium Chloride Carbon Dioxide Anion Gap BUN Creatinine Estim Creat Clear Calc Estimated GFR POC Glucose 127 H 158 H 142 H Random Glucose Fasting Glucose Estimat Average Glucose Hemoglobin A1c % Calcium Phosphorus Magnesium Total Bilirubin AST ALT Alkaline Phosphatase Troponin I High Sens Total Protein Albumin Cortisol Baseline Cortisol 30 Minute Cortisol 60 Minute ACTH Resp to [facility] Cortisol Sreekanth Time 1 Cortisol Sreekanth Time 2 Cortisol Sreekanth Time 3 ACTH Comment 02/08/21 02/08/21 02/08/21 05:35 11:53 17:12 WBC RBC Hgb Hct MCV MCH MCHC RDW Plt Count MPV Immature Gran % (Auto) Neut % (Auto) Lymph % (Auto) [place] % (Auto) Eos % (Auto) Baso % (Auto) Lymph # (Auto) [place] # (Auto) Eos # (Auto) Baso # (Auto) Abs Immat Gran (auto) Absolute Neuts (auto) Absolute Nucleated RBC Nucleated RBC % (auto) Smear Tech's Comments PT INR D-Dimer O2 Saturation ABG pH at Pt Temp ABG pH (Temp Correct) ABG pCO2 at Pt Temp ABG pCO2 (Temp Corrct ABG pO2 at Pt Temp ABG pO2 (Temp Correct ABG HCO3 ABG Base Excess (Actual) Sodium Potassium Chloride Carbon Dioxide Anion Gap BUN Creatinine Estim Creat Clear Calc Estimated GFR POC Glucose 89 114 143 H Random Glucose Fasting Glucose Estimat Average Glucose Hemoglobin A1c % Calcium Phosphorus Magnesium Total Bilirubin AST ALT Alkaline Phosphatase Troponin I High Sens Total Protein Albumin Cortisol Baseline Cortisol 30 Minute Cortisol 60 Minute ACTH Resp to [facility] Cortisol Sreekanth Time 1 Cortisol Sreekanth Time 2 Cortisol Sreekanth Time 3 ACTH Comment 02/09/21 02/09/21 02/09/21 06:09 12:05 17:33 WBC RBC Hgb Hct MCV MCH MCHC RDW Plt Count MPV Immature Gran % (Auto) Neut % (Auto) Lymph % (Auto) [place] % (Auto) Eos % (Auto) Baso % (Auto) Lymph # (Auto) [place] # (Auto) Eos # (Auto) Baso # (Auto) Abs Immat Gran (auto) Absolute Neuts (auto) Absolute Nucleated RBC Nucleated RBC % (auto) Smear Tech's Comments PT INR D-Dimer O2 Saturation ABG pH at Pt Temp ABG pH (Temp Correct) ABG pCO2 at Pt Temp ABG pCO2 (Temp Corrct ABG pO2 at Pt Temp ABG pO2 (Temp Correct ABG HCO3 ABG Base Excess (Actual) Sodium Potassium Chloride Carbon Dioxide Anion Gap BUN Creatinine Estim Creat Clear Calc Estimated GFR POC Glucose 81 143 H 151 H Random Glucose Fasting Glucose Estimat Average Glucose Hemoglobin A1c % Calcium Phosphorus Magnesium Total Bilirubin AST ALT Alkaline Phosphatase Troponin I High Sens Total Protein Albumin Cortisol Baseline Cortisol 30 Minute Cortisol 60 Minute ACTH Resp to [facility] Cortisol Sreekanth Time 1 Cortisol Sreekanth Time 2 Cortisol Sreekanth Time 3 ACTH Comment 02/10/21 02/11/21 02/12/21 05:42 18:22 10:16 WBC RBC Hgb Hct MCV MCH MCHC RDW Plt Count MPV Immature Gran % (Auto) Neut % (Auto) Lymph % (Auto) [place] % (Auto) Eos % (Auto) Baso % (Auto) Lymph # (Auto) [place] # (Auto) Eos # (Auto) Baso # (Auto) Abs Immat Gran (auto) Absolute Neuts (auto) Absolute Nucleated RBC Nucleated RBC % (auto) Smear Tech's Comments PT INR D-Dimer O2 Saturation ABG pH at Pt Temp ABG pH (Temp Correct) ABG pCO2 at Pt Temp ABG pCO2 (Temp Corrct ABG pO2 at Pt Temp ABG pO2 (Temp Correct ABG HCO3 ABG Base Excess (Actual) Sodium Potassium Chloride Carbon Dioxide Anion Gap BUN Creatinine Estim Creat Clear Calc Estimated GFR POC Glucose 95 166 H 83 Random Glucose Fasting Glucose Estimat Average Glucose Hemoglobin A1c % Calcium Phosphorus Magnesium Total Bilirubin AST ALT Alkaline Phosphatase Troponin I High Sens Total Protein Albumin Cortisol Baseline Cortisol 30 Minute Cortisol 60 Minute ACTH Resp to [facility] Cortisol Sreekanth Time 1 Cortisol Sreekanth Time 2 Cortisol Sreekanth Time 3 ACTH Comment 02/12/21 02/13/21 02/13/21 21:35 11:44 16:47 WBC RBC Hgb Hct MCV MCH MCHC RDW Plt Count MPV Immature Gran % (Auto) Neut % (Auto) Lymph % (Auto) [place] % (Auto) Eos % (Auto) Baso % (Auto) Lymph # (Auto) [place] # (Auto) Eos # (Auto) Baso # (Auto) Abs Immat Gran (auto) Absolute Neuts (auto) Absolute Nucleated RBC Nucleated RBC % (auto) Smear Tech's Comments PT INR D-Dimer O2 Saturation ABG pH at Pt Temp ABG pH (Temp Correct) ABG pCO2 at Pt Temp ABG pCO2 (Temp Corrct ABG pO2 at Pt Temp ABG pO2 (Temp Correct ABG HCO3 ABG Base Excess (Actual) Sodium Potassium Chloride Carbon Dioxide Anion Gap BUN Creatinine Estim Creat Clear Calc Estimated GFR POC Glucose 137 H 145 H 129 H Random Glucose Fasting Glucose Estimat Average Glucose Hemoglobin A1c % Calcium Phosphorus Magnesium Total Bilirubin AST ALT Alkaline Phosphatase Troponin I High Sens Total Protein Albumin Cortisol Baseline Cortisol 30 Minute Cortisol 60 Minute ACTH Resp to [facility] Cortisol Sreekanth Time 1 Cortisol Sreekanth Time 2 Cortisol Sreekanth Time 3 ACTH Comment 02/14/21 02/14/21 02/14/21 08:14 12:03 18:20 WBC RBC Hgb Hct MCV MCH MCHC RDW Plt Count MPV Immature Gran % (Auto) Neut % (Auto) Lymph % (Auto) [place] % (Auto) Eos % (Auto) Baso % (Auto) Lymph # (Auto) [place] # (Auto) Eos # (Auto) Baso # (Auto) Abs Immat Gran (auto) Absolute Neuts (auto) Absolute Nucleated RBC Nucleated RBC % (auto) Smear Tech's Comments PT INR D-Dimer O2 Saturation ABG pH at Pt Temp ABG pH (Temp Correct) ABG pCO2 at Pt Temp ABG pCO2 (Temp Corrct ABG pO2 at Pt Temp ABG pO2 (Temp Correct ABG HCO3 ABG Base Excess (Actual) Sodium Potassium Chloride Carbon Dioxide Anion Gap BUN Creatinine Estim Creat Clear Calc Estimated GFR POC Glucose 80 167 H 124 H Random Glucose Fasting Glucose Estimat Average Glucose Hemoglobin A1c % Calcium Phosphorus Magnesium Total Bilirubin AST ALT Alkaline Phosphatase Troponin I High Sens Total Protein Albumin Cortisol Baseline Cortisol 30 Minute Cortisol 60 Minute ACTH Resp to [facility] Cortisol Sreekanth Time 1 Cortisol Sreekanth Time 2 Cortisol Sreekanth Time 3 ACTH Comment 02/14/21 02/17/21 02/17/21 21:49 08:14 10:29 WBC RBC Hgb Hct MCV MCH MCHC RDW Plt Count MPV Immature Gran % (Auto) Neut % (Auto) Lymph % (Auto) [place] % (Auto) Eos % (Auto) Baso % (Auto) Lymph # (Auto) [place] # (Auto) Eos # (Auto) Baso # (Auto) Abs Immat Gran (auto) Absolute Neuts (auto) Absolute Nucleated RBC Nucleated RBC % (auto) Smear Tech's Comments PT INR D-Dimer O2 Saturation ABG pH at Pt Temp ABG pH (Temp Correct) ABG pCO2 at Pt Temp ABG pCO2 (Temp Corrct ABG pO2 at Pt Temp ABG pO2 (Temp Correct ABG HCO3 ABG Base Excess (Actual) Sodium Potassium Chloride Carbon Dioxide Anion Gap BUN Creatinine Estim Creat Clear Calc Estimated GFR POC Glucose 115 95 Random Glucose Fasting Glucose Estimat Average Glucose 111 Hemoglobin A1c % 5.5 Calcium Phosphorus Magnesium Total Bilirubin AST ALT Alkaline Phosphatase Troponin I High Sens Total Protein Albumin Cortisol Baseline Cortisol 30 Minute Cortisol 60 Minute ACTH Resp to [facility] Cortisol Sreekanth Time 1 Cortisol Sreekanth Time 2 Cortisol Sreekanth Time 3 ACTH Comment 02/17/21 02/17/21 02/17/21 10:29 10:29 11:42 WBC RBC Hgb Hct MCV MCH MCHC RDW Plt Count MPV Immature Gran % (Auto) Neut % (Auto) Lymph % (Auto) [place] % (Auto) Eos % (Auto) Baso % (Auto) Lymph # (Auto) [place] # (Auto) Eos # (Auto) Baso # (Auto) Abs Immat Gran (auto) Absolute Neuts (auto) Absolute Nucleated RBC Nucleated RBC % (auto) Smear Tech's Comments PT INR D-Dimer O2 Saturation ABG pH at Pt Temp ABG pH (Temp Correct) ABG pCO2 at Pt Temp ABG pCO2 (Temp Corrct ABG pO2 at Pt Temp ABG pO2 (Temp Correct ABG HCO3 ABG Base Excess (Actual) Sodium 136 Potassium 4.5 Chloride 97 Carbon Dioxide 33 H Anion Gap 11 L BUN 23 H Creatinine 0.96 Estim Creat Clear Calc 45.1 Estimated GFR > 60 POC Glucose 136 H Random Glucose 103 D Fasting Glucose Estimat Average Glucose Hemoglobin A1c % Calcium 9.6 D Phosphorus 3.5 Magnesium 2.1 Total Bilirubin 0.3 AST 32 ALT 44 H Alkaline Phosphatase 142 H Troponin I High Sens Total Protein 7.0 Albumin 3.2 L Cortisol Baseline Cortisol 30 Minute Cortisol 60 Minute ACTH Resp to [facility] Cortisol Sreekanth Time 1 Cortisol Sreekanth Time 2 Cortisol Sreekanth Time 3 ACTH Comment 02/17/21 02/18/21 02/18/21 21:47 09:17 12:05 WBC RBC Hgb Hct MCV MCH MCHC RDW Plt Count MPV Immature Gran % (Auto) Neut % (Auto) Lymph % (Auto) [place] % (Auto) Eos % (Auto) Baso % (Auto) Lymph # (Auto) [place] # (Auto) Eos # (Auto) Baso # (Auto) Abs Immat Gran (auto) Absolute Neuts (auto) Absolute Nucleated RBC Nucleated RBC % (auto) Smear Tech's Comments PT INR D-Dimer O2 Saturation ABG pH at Pt Temp ABG pH (Temp Correct) ABG pCO2 at Pt Temp ABG pCO2 (Temp Corrct ABG pO2 at Pt Temp ABG pO2 (Temp Correct ABG HCO3 ABG Base Excess (Actual) Sodium Potassium Chloride Carbon Dioxide Anion Gap BUN Creatinine Estim Creat Clear Calc Estimated GFR POC Glucose 161 H 85 115 Random Glucose Fasting Glucose Estimat Average Glucose Hemoglobin A1c % Calcium Phosphorus Magnesium Total Bilirubin AST ALT Alkaline Phosphatase Troponin I High Sens Total Protein Albumin Cortisol Baseline Cortisol 30 Minute Cortisol 60 Minute ACTH Resp to [place] Cortisol Sreekanth Time 1 Cortisol Sreekanth Time 2 Cortisol Sreekanth Time 3 ACTH Comment 02/18/21 02/19/21 23:43 05:33 WBC RBC Hgb Hct MCV MCH MCHC RDW Plt Count MPV Immature Gran % (Auto) Neut % (Auto) Lymph % (Auto) [place] % (Auto) Eos % (Auto) Baso % (Auto) Lymph # (Auto) [place] # (Auto) Eos # (Auto) Baso # (Auto) Abs Immat Gran (auto) Absolute Neuts (auto) Absolute Nucleated RBC Nucleated RBC % (auto) Smear Tech's Comments PT INR D-Dimer O2 Saturation ABG pH at Pt Temp ABG pH (Temp Correct) ABG pCO2 at Pt Temp ABG pCO2 (Temp Corrct ABG pO2 at Pt Temp ABG pO2 (Temp Correct ABG HCO3 ABG Base Excess (Actual) Sodium Potassium Chloride Carbon Dioxide Anion Gap BUN Creatinine Estim Creat Clear Calc Estimated GFR POC Glucose 135 H 79 Random Glucose Fasting Glucose Estimat Average Glucose Hemoglobin A1c % Calcium Phosphorus Magnesium Total Bilirubin AST ALT Alkaline Phosphatase Troponin I High Sens Total Protein Albumin Cortisol Baseline Cortisol 30 Minute Cortisol 60 Minute ACTH Resp to [facility] Cortisol Sreekanth Time 1 Cortisol Sreekanth Time 2 Cortisol Sreekanth Time 3 ACTH Comment Airway Mallampati Class: II TM Dist: >3cm Neck ROM: Full Heart: RRr Lungs: CTa Assessment and Plan Assessment Anesthesia Assessment: Anesthesia Plan Discussed and Chart Reviewed Final Anesthetic Review NPO: Yes ASA Class: III Final Preanesthetic Review: No Changes in Pt Med Stat and Consent Obtained/Reviewed Patient Risk: Intermediate Procedure Risk: Intermediate Anesthetic Plan Anesthetic Plan: GA Disposition: Standard PACU
--- NOTE | 2021-02-19 07:30 | HO.ECTPROC ---
ECT Procedure Note Diagnosis/Treatment Date of Service: 02/19/21 Diagnosis: Major Depressive Disorder Current Treatment Number: 11 Treatment: Series Interval Clinical Notes: Patient's mood has improved, less dysphoric ECT Settings Device: THYMATRON DGx Electrode Placement: Right Unilateral Program/Pulse Width: 0.50 Energy Percent: 100 Seizure Duration By EEG (in seconds): 57 By Motor Observation (in seconds): 35 Medications Administration General Anesthetic: Etomidate Muscle Relaxant: Succinylcholine (80) Ancillary Medications Analgesics: Torodol - Pre ECT Anti-emetics: Zofran - Pre ECT Miscillaneous Medications: Propofol and Midazolam Airway Management Airway Management: Bag Mask Ventilation Treatment Recommendations No Changes Recommended: No change Pt Tolerated Procedure w/o Issue: Yes
[2021-02-19] MEDS: Loperamide HCl Oral Liquid 2 MG/15 ML LIQUID G-TUBE (09:58)
[2021-02-19] MEDS: FLUoxetine HCl Oral Solution 20 MG/5 ML SOLUTION 10 MG PO (09:58)
[2021-02-19] MEDS: Amphetamine Mixed Salts 10 MG TABLET 5 MG G-TUBE ×2 (09:59→12:45)
[2021-02-19] MEDS: Famotidine 20 MG TABLET G-TUBE (09:59)
[2021-02-19] MEDS: Hydrocortisone 10 MG TABLET PO (10:00)
[2021-02-19] MEDS: Thiamine HCL 100 MG TABLET G-TUBE (10:00)
[2021-02-19] MEDS: Budesonide 180 MCG AER.POW.BA 2 PUFF INHALE ×2 (10:03→23:09)
--- NOTE | 2021-02-19 11:16 | MHC.CLN ---
NUTRTION FOLLOW UP PATIENT APPEARS TO BE TOLERATING BOLUS TUBE FEEDING. LABS REVIEWED, ALBUMIN CONTINUES LOW WITH IMPROVEMENT TO 3.2 (02/17). SODIUM NORMAL (/). BMI=17.5. CONTINUE CURRENT BOLUS TUBE FEEDING.
--- NOTE | 2021-02-19 11:44 | HO.PSYCHPN ---
Subjective Subjective Date of Service: 02/19/21 Reason For Visit: severe depression Interim History: The patient's mood has improved with ECT. He had ECT today without complications and so far, he is much better with residual symptoms of depression Medication Compliance: Yes Side effects from medications: No Mental Status Exam Mental Status Exam Patient Appearance: Well Grooomed (on hospital gowns) Patient Orientation: Person, Place, Time and Situation Level of Consciousness: Awake Patient Behavior: Appropriate Mood Description: Calm Affect Description: Calm and Appropriate Patient Cognition Impaired: No Ability to Follow Directions: Good Speech Pattern: Clear Memory Description: Intact Hallucinations: None Delusions: Not Present Thought Process: Linear Thought Content: positive for Intact Judgement: Fair Diagnostics Vital Signs (24Hr): Vital Signs - 24 hr 02/18/21 21:05 02/19/21 05:41 02/19/21 06:31 Temperature 98.3 F 98.2 F 97.9 F Pulse Rate 76 82 79 Respiratory Rate 24 H Blood Pressure 126/79 139/79 131/77 Pulse Oximetry 95 93 95 02/19/21 07:51 02/19/21 07:56 02/19/21 08:01 Temperature 97.8 F Pulse Rate 73 78 79 Respiratory Rate 17 20 17 Blood Pressure 140/76 H 123/72 131/73 Pulse Oximetry 100 99 99 02/19/21 08:06 02/19/21 08:11 02/19/21 08:26 Temperature Pulse Rate 81 81 81 Respiratory Rate 21 H 21 H 16 Blood Pressure 120/82 141/80 H 141/84 H Pulse Oximetry 99 100 94 02/19/21 08:41 02/19/21 09:21 Temperature 98.0 F 97.3 F Pulse Rate 82 80 Respiratory Rate 16 18 Blood Pressure 136/81 145/81 H Pulse Oximetry 94 96 Body Mass Index 17.5 Labs Results: 01/15/21 14:51 02/17/21 10:29 Labs: Laboratory Results - last 48 hr 02/17/21 02/17/21 02/18/21 11:42 21:47 09:17 POC Glucose 136 H 161 H 85 02/18/21 02/18/21 02/19/21 12:05 23:43 05:33 POC Glucose 115 135 H 79 Imaging Radiology Impressions: ITS Impressions Modified Barium Swallow 01/07/21 14:15 IMPRESSION: Laryngeal penetration and occasional aspiration as described above. Please refer to speech pathology report for details. Chest X-Ray 01/10/21 09:11 IMPRESSION: Severe chronic interstitial lung disease. No evidence of acute superimposed pneumonitis. Modified Barium Swallow 02/10/21 12:56 IMPRESSION: Vallecular retention with laryngeal penetration. 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 No CT evidence of intracranial bleed. No skull fracture. Normal CT scan does not rule out the possibility of hyperacute infarct in the first 12 hours. If patient symptoms persist may consider correlation with MRI, which is more sensitive for early acute infarct. Medications Medications Current Medications Generic Name Dose Route Start Last Admin Trade Name Freq PRN Reason Stop Dose Admin Acetaminophen 650 mg 01/09/21 15:51 02/01/21 09:10 Acetaminophen 325 Mg Tablet G-TUBE 650 mg Q4H PRN Administration Pain, Mild (Pain Scale 1-3) Al Hydroxide/Mg Hydroxide 30 ml 01/08/21 15:46 02/11/21 17:51 Magnesium Hydrox/Alum Hydrox 30 Ml Oral.Susp G-TUBE 30 ml Q4H PRN Administration Dyspepsia Amphetamine/Dextroamphetamine 5 mg 02/01/21 13:00 02/19/21 09:59 Amphetamine Mixed Salts 10 Mg Tablet G-TUBE 5 mg BID@0800,1300 [facility]IN[facility] Administration Budesonide 2 puff 12/31/20 20:00 02/19/21 10:03 Budesonide 180 Mcg Aer.Pow.Ba INHALE 2 puff RBID DOMINICK Administration Clotrimazole 1 appl 01/06/21 21:00 02/19/21 11:28 Clotrimazole 1 % Cream 15 Gm Tube TOPICAL Not Given BID [facility] Protocol Famotidine 20 mg 01/09/21 09:00 02/19/21 09:59 Famotidine 20 Mg Tablet G-TUBE 20 mg DAILY [facility]IN[facility] Administration Fluoxetine HCl 10 mg 02/18/21 09:00 02/19/21 09:58 Fluoxetine Hcl Oral Solution 20 Mg/5 Ml Solution PO 10 mg DAILY [facility] Administration Hydrocortisone 2.5 mg 01/23/21 19:00 02/18/21 18:35 Hydrocortisone 10 Mg Tablet PO 2.5 mg DAILY@1900 DOMINICK Administration Hydrocortisone 5 mg 01/23/21 13:00 02/18/21 13:10 Hydrocortisone 10 Mg Tablet PO 5 mg DAILY@1300 [facility]IN[facility] Administration Hydrocortisone 10 mg 01/28/21 08:00 02/19/21 10:00 Hydrocortisone 10 Mg Tablet PO 10 mg DAILY@0800 [facility] Administration Loperamide HCl 2 mg 02/18/21 21:30 02/19/21 09:58 Loperamide Hcl Oral Liquid 2 Mg/15 Ml Liquid G-TUBE 2 mg Q6H PRN Administration Diarrhea Mirtazapine 7.5 mg 01/14/21 21:00 02/18/21 21:37 Mirtazapine 7.5 Mg Tablet G-TUBE 7.5 mg BEDTIME [facility] Administration Omeprazole 40 mg 01/08/21 16:30 02/19/21 09:58 Omeprazole 20 Mg/10 Ml Susp.Recon G-TUBE 40 mg BID@0630,1630 [facility] Administration Ondansetron HCl 4 mg 02/12/21 08:56 Ondansetron Hcl 4 Mg/2 Ml Vial IVPUSH ONCE PRN Nausea and Vomiting Thiamine HCl 100 mg 01/09/21 09:00 02/19/21 10:00 Thiamine Hcl 100 Mg Tablet G-TUBE 100 mg DAILY [facility]IN[facility] Administration Allergies Allergies Allergy/AdvReac Type Severity Reaction Status Date / Time Sulfa (Sulfonamide Allergy Unknown UNKNOWN Verified 12/01/20 09:47 Antibiotics) [SULFA (SULFONAMIDE ANTIBIOTICS)] zoster vaccine live Allergy Hives Verified 12/01/20 09:47 Assessment & Plan Assessment & Plan (1) Adrenal insufficiency: Status: Acute Code(s): E27.40 - Unspecified adrenocortical insufficiency (2) Bipolar I disorder with depression, severe: Status: Acute Code(s): F31.4 - Bipolar disorder, current episode depressed, severe, without psychotic features Assessment and Plan: 80-year-old male history pulmonary fibrosis bipolar depression adrenal insufficiency. Improvement with ECT has a PEG for dysphagia increase fluoxetine to to 10 mg daily rehab referral ect 02/19/21 Greater than 50% of the session was spent on counseling and/or coordination of care Reason for contiued inpatient stay Substantial Risk for: inability to function, rapid decompensation and med/psych decompensation
[2021-02-19] MEDS: Hydrocortisone 10 MG TABLET 5 MG PO (12:45)
--- NOTE | 2021-02-19 15:46 | P.CONWO_ITS ---
History of Present Illness Data of Consult Service Date: 02/19/21 Requesting physician: Melly Chowdhury Primary Care Provider: Unknown Physician HPI Reason for consult: right dorsal hand skin tear Unclear if patient fell over the weekend but dorsal right hand avulsion is most consistent with trauma. Nurse on floor tells me there was odor and maceration when she changed it yesterday but now it looks better. The patient is hospitalized with bipolar disorder, CKD, and has shitory of adrenal insufficiency. Review of Systems Review of Systems: No BENSON, SOB, CP or belly pain reported Yes all other systems are reviewed and are negative [facility] History Anemia Anxiety Bronchiectasis Cerebrovascular disease Chronic hyponatremia Chronic respiratory failure CKD (chronic kidney disease) stage 3, GFR 30-59 ml/min Degenerative arthritis Depression History of electroconvulsive therapy Hx of bladder cancer Hydrocele Pulmonary fibrosis Pulmonary fibrosis Family History Father Colon cancer Surgical History History of bladder surgery Social History Household Members: Spouse Housing: Apartment Do you presently have visiting nurse or other home services: Yes Unable to assess alcohol history related to: Unable to respond and Unknown Cigarette Packs Per Day: 1 Cigarettes Per Day: 20.0 Years Smoked: 20 Smoked in Last 30 Days: No Patient Interested in Nicotine Replacement: No Patient Given Instructions on How to Stop Smoking: No Second Hand Smoke Exposure: No Use of substances other than those prescribed or required for medical reasons: No Substance Use Type: Marijuana Currently Displaying Signs/Symptoms of Drug Intoxication Withdrawal: No Spiritual Healthcare Practices: none Anabaptism Healthcare Practices: none Cultural Healthcare Practices: none Are you DNR?: No Advance Directives: Yes Advance Directives on File: Yes Advance Directives Date on File: 11/27/20 Do you have thoughts of harming others: None Do you have a plan to hurt others: No Plan Recently lost weight without trying: Yes How much weight loss: 2-13 pounds Eating poorly because of decreased appetite: Yes Nutrition screen score: 4 Nutrition Risks: Emaciation/Cachexia Poor oral hygiene: No service: No Current occupational status: retired and disabled Sexual orientation: Straight/Heterosexual Meds Allergies Allergy/AdvReac Type Severity Reaction Status Date / Time Sulfa (Sulfonamide Allergy Unknown UNKNOWN Verified 12/01/20 09:47 Antibiotics) [SULFA (SULFONAMIDE ANTIBIOTICS)] zoster vaccine live Allergy Hives Verified 12/01/20 09:47 Active Medications: Current Medications Generic Name Dose Route Start Last Admin Trade Name Freq PRN Reason Stop Dose Admin Acetaminophen 650 mg 01/09/21 15:51 02/01/21 09:10 Acetaminophen 325 Mg Tablet G-TUBE 650 mg Q4H PRN Administration Pain, Mild (Pain Scale 1-3) Al Hydroxide/Mg Hydroxide 30 ml 01/08/21 15:46 02/11/21 17:51 Magnesium Hydrox/Alum Hydrox 30 Ml Oral.Susp G-TUBE 30 ml Q4H PRN Administration Dyspepsia Amphetamine/Dextroamphetamine 5 mg 02/01/21 13:00 02/19/21 12:45 Amphetamine Mixed Salts 10 Mg Tablet G-TUBE 5 mg BID@0800,1300 DOMINICK Administration Budesonide 2 puff 12/31/20 20:00 02/19/21 10:03 Budesonide 180 Mcg Aer.Pow.Ba INHALE 2 puff RBID DOMINICK Administration Clotrimazole 1 appl 01/06/21 21:00 02/19/21 11:28 Clotrimazole 1 % Cream 15 Gm Tube TOPICAL Not Given BID [facility] Protocol Famotidine 20 mg 01/09/21 09:00 02/19/21 09:59 Famotidine 20 Mg Tablet G-TUBE 20 mg DAILY DOMIN[facility] Administration Fluoxetine HCl 10 mg 02/18/21 09:00 02/19/21 09:58 Fluoxetine Hcl Oral Solution 20 Mg/5 Ml Solution PO 10 mg DAILY [facility]IN[facility] Administration Hydrocortisone 2.5 mg 01/23/21 19:00 02/18/21 18:35 Hydrocortisone 10 Mg Tablet PO 2.5 mg DAILY@1900 DOMIN[facility] Administration Hydrocortisone 5 mg 01/23/21 13:00 02/19/21 12:45 Hydrocortisone 10 Mg Tablet PO 5 mg DAILY@1300 DOMINICK Administration Hydrocortisone 10 mg 01/28/21 08:00 02/19/21 10:00 Hydrocortisone 10 Mg Tablet PO 10 mg DAILY@0800 DOM[facility] Administration Loperamide HCl 2 mg 02/18/21 21:30 02/19/21 09:58 Loperamide Hcl Oral Liquid 2 Mg/15 Ml Liquid G-TUBE 2 mg Q6H PRN Administration Diarrhea Mirtazapine 7.5 mg 01/14/21 21:00 02/18/21 21:37 Mirtazapine 7.5 Mg Tablet G-TUBE 7.5 mg BEDTIME [facility]INICK Administration Omeprazole 40 mg 01/08/21 16:30 02/19/21 09:58 Omeprazole 20 Mg/10 Ml Susp.Recon G-TUBE 40 mg BID@0630,1630 [facility] Administration Ondansetron HCl 4 mg 02/12/21 08:56 Ondansetron Hcl 4 Mg/2 Ml Vial IVPUSH ONCE PRN Nausea and Vomiting Thiamine HCl 100 mg 01/09/21 09:00 02/19/21 10:00 Thiamine Hcl 100 Mg Tablet G-TUBE 100 mg DAILY DOMINICK Administration Home Medications Medication Instructions Recorded Confirmed Last Taken Type Latuda 1 tab PO DAILY 11/25/20 12/31/20 11/25/20 History Ofev 150 mg PO BID 11/25/20 12/31/20 11/25/20 History docusate sodium [Stool Softener] 1 cap PO BID PRN 11/25/20 12/31/20 11/25/20 History lorazepam 1 tab PO BID PRN 11/25/20 12/31/20 11/25/20 History mirtazapine 1 tab PO BEDTIME 11/25/20 12/31/20 11/24/20 History ondansetron 1 tab PO Q8H PRN 11/25/20 12/31/20 Unknown History quetiapine 37.5 mg PO BEDTIME 11/25/20 12/31/20 11/24/20 History Physical Exam Vital Signs and Narrative: Vital Signs: Last Vital Signs Temp 97.3 F 02/19/21 09:21 Pulse 80 02/19/21 09:21 Resp 18 02/19/21 09:21 BP 145/81 H 02/19/21 09:21 Pulse Ox 96 02/19/21 09:21 Body Mass Index 17.5 Pleasant, cooperative and calm. Flat affect. No edema of the right upper extremity. No streaking or warmth of the dorsal hand. The avulsed epidermal tissue on the dorsal per the hand has been placed back down on to the wound bed. No purulence is seen. There is a fair amount of debris by way of slough and eschar. But no evidence of infection. Results Labs CBC and Chem 7: 01/15/21 14:51 02/17/21 10:29 Labs: Laboratory Results - last 24 hr 02/18/21 02/19/21 23:43 05:33 POC Glucose 135 H 79 Assessment and Plan (1) Laceration of right hand: Status: Acute Traumatic dorsal right hand laceration, partial thickness showing signs of healing. No evidence of infection. Recommend Xeroform cut to fit with roller gauze to avoid tape application to the skin. Report any increased drainage redness or worsening pain.
[2021-02-19 16:28] LABS: Glucose, Whole Blood 137 mg/dL (60-115)
[2021-02-19 16:28] LABS: Glucose, Whole Blood 131 mg/dL (60-115)
[2021-02-19] MEDS: Mirtazapine 7.5 MG TABLET G-TUBE (23:05)
[2021-02-19] MEDS: Hydrocortisone 10 MG TABLET 2.5 MG PO (23:05)
[2021-02-19] MEDS: Clotrimazole 1 % Cream 15 GM TUBE 1 APPL TOPICAL (23:09)
[2021-02-19 23:55] LABS: Glucose, Whole Blood 134 mg/dL (60-115)
[2021-02-20] MEDS: Amphetamine Mixed Salts 10 MG TABLET 5 MG G-TUBE ×2 (08:12→14:26)
[2021-02-20] MEDS: Famotidine 20 MG TABLET G-TUBE (08:14)
[2021-02-20] MEDS: Thiamine HCL 100 MG TABLET G-TUBE (08:14)
[2021-02-20] MEDS: Hydrocortisone 10 MG TABLET PO (08:14)
[2021-02-20] MEDS: FLUoxetine HCl Oral Solution 20 MG/5 ML SOLUTION 10 MG PO (08:15)
[2021-02-20 08:55] LABS: Glucose, Whole Blood 84 mg/dL (60-115)
[2021-02-20 09:35] VITALS: BP 107/77; PULSE 76; TEMP 35.4; O2SAT 95
[2021-02-20] MEDS: Budesonide 180 MCG AER.POW.BA 2 PUFF INHALE ×2 (09:48→22:14)
--- NOTE | 2021-02-20 11:30 | HO.PSYCHPN ---
Subjective Subjective Date of Service: 02/20/21 Reason For Visit: severe depression Interim History: Reports noticing significant improvement from ECT. Reports that he is much less anxious and depressed. His outlook is more hopeful and positive. Adamantly denies thoughts of or suicide. Is hopeful that he can get to physical rehab to get his strength back and then eventually home. Medication Compliance: Yes Side effects from medications: No Review of Systems Review of Systems Largely unremarkable. PEG tube Mental Status Exam Mental Status Exam Narrative: in bed. Pleasant and engaged. No obvious cognitive issues. Brighter affect. No SI. No HI. No agitation. No psychosis. Hopeful. Feeling well cared for. Insight and judgment good Diagnostics Vital Signs (24Hr): Vital Signs - 24 hr 02/20/21 09:35 Temperature 95.7 F L Pulse Rate 76 Blood Pressure 107/77 Pulse Oximetry 95 Body Mass Index 17.5 Labs Results: 01/15/21 14:51 02/17/21 10:29 Labs: Laboratory Results - last 48 hr 02/18/21 02/19/21 02/19/21 23:43 05:33 12:44 POC Glucose 135 H 79 131 H 02/19/21 02/19/21 02/20/21 16:08 23:16 08:38 POC Glucose 137 H 134 H 84 02/20/21 02/20/21 14:42 19:44 POC Glucose 140 H 139 H Imaging Radiology Impressions: ITS Impressions Modified Barium Swallow 01/07/21 14:15 IMPRESSION: Laryngeal penetration and occasional aspiration as described above. Please refer to speech pathology report for details. Chest X-Ray 01/10/21 09:11 IMPRESSION: Severe chronic interstitial lung disease. No evidence of acute superimposed pneumonitis. Modified Barium Swallow 02/10/21 12:56 IMPRESSION: Vallecular retention with laryngeal penetration. 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 No CT evidence of intracranial bleed. No skull fracture. Normal CT scan does not rule out the possibility of hyperacute infarct in the first 12 hours. If patient symptoms persist may consider correlation with MRI, which is more sensitive for early acute infarct. Medications Medications Current Medications Generic Name Dose Route Start Last Admin Trade Name Freq PRN Reason Stop Dose Admin Acetaminophen 650 mg 01/09/21 15:51 02/01/21 09:10 Acetaminophen 325 Mg Tablet G-TUBE 650 mg Q4H PRN Administration Pain, Mild (Pain Scale 1-3) Al Hydroxide/Mg Hydroxide 30 ml 01/08/21 15:46 02/11/21 17:51 Magnesium Hydrox/Alum Hydrox 30 Ml Oral.Susp G-TUBE 30 ml Q4H PRN Administration Dyspepsia Amphetamine/Dextroamphetamine 5 mg 02/01/21 13:00 02/20/21 14:26 Amphetamine Mixed Salts 10 Mg Tablet G-TUBE 5 mg BID@0800,1300 DOMINICK Administration Budesonide 2 puff 12/31/20 20:00 02/20/21 09:48 Budesonide 180 Mcg Aer.Pow.Ba INHALE 2 puff RBID DOMINICK Administration Clotrimazole 1 appl 01/06/21 21:00 02/20/21 09:48 Clotrimazole 1 % Cream 15 Gm Tube TOPICAL Not Given BID [facility] Protocol Famotidine 20 mg 01/09/21 09:00 02/20/21 08:14 Famotidine 20 Mg Tablet G-TUBE 20 mg DAILY [facility]IN[facility] Administration Fluoxetine HCl 10 mg 02/18/21 09:00 02/20/21 08:15 Fluoxetine Hcl Oral Solution 20 Mg/5 Ml Solution PO 10 mg DAILY [facility]IN[facility] Administration Hydrocortisone 2.5 mg 01/23/21 19:00 02/20/21 20:19 Hydrocortisone 10 Mg Tablet PO 2.5 mg DAILY@1900 DOMINICK Administration Hydrocortisone 5 mg 01/23/21 13:00 02/20/21 14:25 Hydrocortisone 10 Mg Tablet PO 5 mg DAILY@1300 DOMINICK Administration Hydrocortisone 10 mg 01/28/21 08:00 02/20/21 08:14 Hydrocortisone 10 Mg Tablet PO 10 mg DAILY@0800 DOMINICK Administration Loperamide HCl 2 mg 02/18/21 21:30 02/19/21 09:58 Loperamide Hcl Oral Liquid 2 Mg/15 Ml Liquid G-TUBE 2 mg Q6H PRN Administration Diarrhea Mirtazapine 7.5 mg 01/14/21 21:00 02/20/21 20:21 Mirtazapine 7.5 Mg Tablet G-TUBE 7.5 mg BEDTIME [facility]INICK Administration Omeprazole 40 mg 01/08/21 16:30 02/20/21 16:20 Omeprazole 20 Mg/10 Ml Susp.Recon G-TUBE 40 mg BID@0630,1630 DOMINICK Administration Ondansetron HCl 4 mg 02/12/21 08:56 Ondansetron Hcl 4 Mg/2 Ml Vial IVPUSH ONCE PRN Nausea and Vomiting Thiamine HCl 100 mg 01/09/21 09:00 02/20/21 08:14 Thiamine Hcl 100 Mg Tablet G-TUBE 100 mg DAILY [facility]INICK Administration Allergies Allergies Allergy/AdvReac Type Severity Reaction Status Date / Time Sulfa (Sulfonamide Allergy Unknown UNKNOWN Verified 12/01/20 09:47 Antibiotics) [SULFA (SULFONAMIDE ANTIBIOTICS)] zoster vaccine live Allergy Hives Verified 12/01/20 09:47 Assessment & Plan Assessment & Plan (1) Bipolar disorder: Status: Acute Code(s): F31.9 - Bipolar disorder, unspecified Assessment and Plan: appears to have responded well to ECT treatment. Now at stage of seeking physical rehab referral and disposition planning Greater than 50% of the session was spent on counseling and/or coordination of care Reason for contiued inpatient stay Substantial Risk for: inability to function
[2021-02-20] MEDS: Hydrocortisone 10 MG TABLET 5 MG PO (14:25)
[2021-02-20 14:47] LABS: Glucose, Whole Blood 140 mg/dL (60-115)
[2021-02-20 19:48] LABS: Glucose, Whole Blood 139 mg/dL (60-115)
[2021-02-20] MEDS: Hydrocortisone 10 MG TABLET 2.5 MG PO (20:19)
[2021-02-20] MEDS: Mirtazapine 7.5 MG TABLET G-TUBE (20:21)
[2021-02-21 06:49] VITALS: BP 109/58; PULSE 76; RESP 20; TEMP 37.1; O2SAT 94
[2021-02-21 07:10] LABS: Glucose, Whole Blood 87 mg/dL (60-115)
[2021-02-21] MEDS: Amphetamine Mixed Salts 10 MG TABLET 5 MG G-TUBE ×2 (07:52→13:31)
[2021-02-21] MEDS: Hydrocortisone 10 MG TABLET PO (07:53)
[2021-02-21] MEDS: Famotidine 20 MG TABLET G-TUBE (09:59)
[2021-02-21] MEDS: FLUoxetine HCl Oral Solution 20 MG/5 ML SOLUTION 10 MG PO (09:59)
[2021-02-21] MEDS: Thiamine HCL 100 MG TABLET G-TUBE (09:59)
[2021-02-21] MEDS: Clotrimazole 1 % Cream 15 GM TUBE 1 APPL TOPICAL (10:02)
[2021-02-21] MEDS: Budesonide 180 MCG AER.POW.BA 2 PUFF INHALE (10:02)
[2021-02-21 11:38] LABS: Glucose, Whole Blood 113 mg/dL (60-115)
[2021-02-21] MEDS: Hydrocortisone 10 MG TABLET 5 MG PO (13:32)
--- NOTE | 2021-02-21 14:28 | HO.PSYCHPN ---
Subjective Subjective Date of Service: 02/21/21 Reason For Visit: severe depression Interim History: Continues to report ongoing improvement from ECT- much less anxious and depressed, hopeful and positive. Adamantly denies thoughts of or suicide. Is hopeful that he can get to physical rehab to get his strength back and then eventually home. Review of Systems Review of Systems Largely unremarkable. PEG tube Yes all other systems are reviewed and are negative Constitutional: Reports fatigue, Reports lethargy, Reports malaise, Denies night sweats and Reports weight loss Denies change in voice, Reports dysphagia, Denies lip swelling, Denies mouth pain, Reports nasal congestion, Reports nasal discharge and Denies tongue swelling Cardiovascular: Reports no additional cardiovascular complaints, Denies chest pain, Denies dyspnea, Denies dyspnea on exertion and Denies orthopnea Respiratory: Reports no additional respiratory complaints, Denies cough (dry cough), Denies hemoptysis, Denies dyspnea, Denies dyspnea on exertion and Denies wheezing Gastrointestinal: Reports no additional gastrointestinal complaints, Denies abdominal pain and Reports dysphagia Musculoskeletal: Denies no additional musculoskeletal complaints Denies Neuro-related abnormal movements Psychiatric: Denies no additional psychiatric complaints Endocrine: Reports fatigue Hematologic/Lymphatic: Denies easy bleeding and Denies lymphadenopathy Allergic/Immunologic: Denies lip swelling, Denies tongue swelling and Denies wheezing Mental Status Exam Mental Status Exam Narrative: in bed. Pleasant and engaged. No obvious cognitive issues. Brighter affect. No SI. No HI. No agitation. No psychosis. Hopeful. Feeling well cared for. Insight and judgment good Patient Appearance: Well Grooomed (on hospital gowns) Patient Orientation: Person, Place, Time and Situation Level of Consciousness: Awake Patient Behavior: Appropriate Mood Description: Calm Affect Description: Calm and Appropriate Patient Cognition Impaired: No Ability to Follow Directions: Good Speech Pattern: Clear Memory Description: Intact Diagnostics Vital Signs (24Hr): Vital Signs - 24 hr 02/21/21 06:49 Temperature 98.8 F Pulse Rate 76 Respiratory Rate 20 Blood Pressure 109/58 L Pulse Oximetry 94 Body Mass Index 17.5 Labs Results: 01/15/21 14:51 02/17/21 10:29 Labs: Laboratory Results - last 48 hr 02/19/21 02/19/21 02/19/21 12:44 16:08 23:16 POC Glucose 131 H 137 H 134 H 06/08/3102/20/21 02/20/21 08:38 14:42 19:44 POC Glucose 84 140 H 139 H 02/21/21 02/21/21 07:06 11:15 POC Glucose 87 113 Imaging Radiology Impressions: ITS Impressions Modified Barium Swallow 01/07/21 14:15 IMPRESSION: Laryngeal penetration and occasional aspiration as described above. Please refer to speech pathology report for details. Chest X-Ray 01/10/21 09:11 IMPRESSION: Severe chronic interstitial lung disease. No evidence of acute superimposed pneumonitis. Modified Barium Swallow 02/10/21 12:56 IMPRESSION: Vallecular retention with laryngeal penetration. 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 No CT evidence of intracranial bleed. No skull fracture. Normal CT scan does not rule out the possibility of hyperacute infarct in the first 12 hours. If patient symptoms persist may consider correlation with MRI, which is more sensitive for early acute infarct. Medications Medications Current Medications Generic Name Dose Route Start Last Admin Trade Name Freq PRN Reason Stop Dose Admin Acetaminophen 650 mg 01/09/21 15:51 02/01/21 09:10 Acetaminophen 325 Mg Tablet G-TUBE 650 mg Q4H PRN Administration Pain, Mild (Pain Scale 1-3) Al Hydroxide/Mg Hydroxide 30 ml 01/08/21 15:46 02/11/21 17:51 Magnesium Hydrox/Alum Hydrox 30 Ml Oral.Susp G-TUBE 30 ml Q4H PRN Administration Dyspepsia Amphetamine/Dextroamphetamine 5 mg 02/01/21 13:00 02/21/21 13:31 Amphetamine Mixed Salts 10 Mg Tablet G-TUBE 5 mg BID@0800,1300 DOMINICK Administration Budesonide 2 puff 12/31/20 20:00 02/21/21 10:02 Budesonide 180 Mcg Aer.Pow.Ba INHALE 2 puff RBID DOMINICK Administration Clotrimazole 1 appl 01/06/21 21:00 02/21/21 10:02 Clotrimazole 1 % Cream 15 Gm Tube TOPICAL 1 appl BID DOMINICK Administration Protocol Famotidine 20 mg 01/09/21 09:00 02/21/21 09:59 Famotidine 20 Mg Tablet G-TUBE 20 mg DAILY DOMINICK Administration Fluoxetine HCl 10 mg 02/18/21 09:00 02/21/21 09:59 Fluoxetine Hcl Oral Solution 20 Mg/5 Ml Solution PO 10 mg DAILY [facility]INICK Administration Hydrocortisone 2.5 mg 01/23/21 19:00 02/20/21 20:19 Hydrocortisone 10 Mg Tablet PO 2.5 mg DAILY@1900 DOMINICK Administration Hydrocortisone 5 mg 01/23/21 13:00 02/21/21 13:32 Hydrocortisone 10 Mg Tablet PO 5 mg DAILY@1300 DOMINICK Administration Hydrocortisone 10 mg 01/28/21 08:00 02/21/21 07:53 Hydrocortisone 10 Mg Tablet PO 10 mg DAILY@0800 DOMINICK Administration Loperamide HCl 2 mg 02/18/21 21:30 02/19/21 09:58 Loperamide Hcl Oral Liquid 2 Mg/15 Ml Liquid G-TUBE 2 mg Q6H PRN Administration Diarrhea Mirtazapine 7.5 mg 01/14/21 21:00 02/20/21 20:21 Mirtazapine 7.5 Mg Tablet G-TUBE 7.5 mg BEDTIME DOMINICK Administration Omeprazole 40 mg 01/08/21 16:30 02/21/21 06:51 Omeprazole 20 Mg/10 Ml Susp.Recon G-TUBE 40 mg BID@0630,1630 DOMINICK Administration Ondansetron HCl 4 mg 02/12/21 08:56 Ondansetron Hcl 4 Mg/2 Ml Vial IVPUSH ONCE PRN Nausea and Vomiting Thiamine HCl 100 mg 01/09/21 09:00 02/21/21 09:59 Thiamine Hcl 100 Mg Tablet G-TUBE 100 mg DAILY DOMINICK Administration Allergies Allergies Allergy/AdvReac Type Severity Reaction Status Date / Time Sulfa (Sulfonamide Allergy Unknown UNKNOWN Verified 12/01/20 09:47 Antibiotics) [SULFA (SULFONAMIDE ANTIBIOTICS)] zoster vaccine live Allergy Hives Verified 12/01/20 09:47 Assessment & Plan Assessment & Plan (1) Bipolar disorder: Status: Acute Code(s): F31.9 - Bipolar disorder, unspecified Assessment and Plan: No changes. Appears to have responded well to ECT treatment. Now at stage of seeking physical rehab referral and disposition planning Greater than 50% of the session was spent on counseling and/or coordination of care Reason for contiued inpatient stay Substantial Risk for: rapid decompensation
[2021-02-21 16:49] LABS: Glucose, Whole Blood 141 mg/dL (60-115)
[2021-02-21] MEDS: Hydrocortisone 10 MG TABLET 2.5 MG PO (19:32)
[2021-02-21] MEDS: Mirtazapine 7.5 MG TABLET G-TUBE (19:33)
[2021-02-21 20:25] LABS: Glucose, Whole Blood 137 mg/dL (60-115)
[2021-02-22 06:46] LABS: Glucose, Whole Blood 89 mg/dL (60-115)
[2021-02-22 07:56] VITALS: BP 133/85; PULSE 80; RESP 20; TEMP 36.7; O2SAT 97
[2021-02-22] MEDS: Budesonide 180 MCG AER.POW.BA 2 PUFF INHALE ×2 (07:58→21:45)
[2021-02-22] MEDS: Amphetamine Mixed Salts 10 MG TABLET 5 MG G-TUBE ×2 (08:00→13:41)
[2021-02-22] MEDS: Thiamine HCL 100 MG TABLET G-TUBE (08:00)
[2021-02-22] MEDS: Clotrimazole 1 % Cream 15 GM TUBE 1 APPL TOPICAL (08:00)
[2021-02-22] MEDS: FLUoxetine HCl Oral Solution 20 MG/5 ML SOLUTION 10 MG PO (08:00)
[2021-02-22] MEDS: Hydrocortisone 10 MG TABLET PO (08:00)
[2021-02-22] MEDS: Famotidine 20 MG TABLET G-TUBE (08:00)
[2021-02-22 11:41] LABS: Glucose, Whole Blood 135 mg/dL (60-115)
--- NOTE | 2021-02-22 13:00 | MHC.CLN ---
FOLLOW UP NO REPORTED CONCERNS WITH CURRENT BOLUS TUBE FEEDING. VISITED WITH PATIENT AND REPORTED NO PROBLEMS WITH BOLUS FEEDING. CONTINUE TO FOLLOW.
[2021-02-22] MEDS: Hydrocortisone 10 MG TABLET 5 MG PO (13:41)
[2021-02-22] MEDS: Hydrocortisone 10 MG TABLET 2.5 MG PO (16:52)
[2021-02-22 20:34] VITALS: BP 113/77; PULSE 77; O2SAT 94
[2021-02-22 20:57] LABS: Glucose, Whole Blood 138 mg/dL (60-115)
[2021-02-22] MEDS: Mirtazapine 7.5 MG TABLET G-TUBE (21:45)
--- NOTE | 2021-02-22 22:25 | HO.PSYCHPN ---
Subjective Subjective Date of Service: 02/22/21 Reason For Visit: severe depression Subjective Notes: Conditional Voluntary Healthcare Proxy: Yes Medical Problems Affecting Mental Status: Yes Interim History: pt tolerated ect not confused remains flat but improved taking peg feedings remains on 1.1 Medication Compliance: Yes Side effects from medications: Yes Attending Groups: Intermittent Mental Status Exam Mental Status Exam Patient Appearance: Well Grooomed (on hospital gowns) Patient Orientation: Person, Place, Time and Situation Level of Consciousness: Awake Patient Behavior: Appropriate Mood Description: Calm Affect Description: Calm, Appropriate and Flat Patient Cognition Impaired: No Ability to Follow Directions: Good Speech Pattern: Clear and Delayed Memory Description: Intact Thought Process: Rumination Thought Content: positive for Preoccupation, negative for Logical, negative for Suicidal Ideation and negative for Homicidal Ideation Depressive Symptoms: Increased Fatigue Abnormal Motor Activity Signs and Symptoms: Psychomotor Retardation Diagnostics Vital Signs (24Hr): Vital Signs - 24 hr 02/22/21 07:56 02/22/21 20:34 Temperature 98.1 F Pulse Rate 80 77 Respiratory Rate 20 Blood Pressure 133/85 113/77 Pulse Oximetry 97 94 Body Mass Index 17.5 Labs Results: 01/15/21 14:51 02/17/21 10:29 Labs: Laboratory Results - last 48 hr 02/21/21 02/21/21 02/21/21 07:06 11:15 16:39 POC Glucose 87 113 141 H 02/21/21 02/22/21 02/22/21 20:21 06:42 11:37 POC Glucose 137 H 89 135 H 02/22/21 20:53 POC Glucose 138 H Imaging Radiology Impressions: ITS Impressions Modified Barium Swallow 01/07/21 14:15 IMPRESSION: Laryngeal penetration and occasional aspiration as described above. Please refer to speech pathology report for details. Chest X-Ray 01/10/21 09:11 IMPRESSION: Severe chronic interstitial lung disease. No evidence of acute superimposed pneumonitis. Modified Barium Swallow 02/10/21 12:56 IMPRESSION: Vallecular retention with laryngeal penetration. 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 No CT evidence of intracranial bleed. No skull fracture. Normal CT scan does not rule out the possibility of hyperacute infarct in the first 12 hours. If patient symptoms persist may consider correlation with MRI, which is more sensitive for early acute infarct. Medications Medications Current Medications Generic Name Dose Route Start Last Admin Trade Name Freq PRN Reason Stop Dose Admin Acetaminophen 650 mg 01/09/21 15:51 02/01/21 09:10 Acetaminophen 325 Mg Tablet G-TUBE 650 mg Q4H PRN Administration Pain, Mild (Pain Scale 1-3) Al Hydroxide/Mg Hydroxide 30 ml 01/08/21 15:46 02/11/21 17:51 Magnesium Hydrox/Alum Hydrox 30 Ml Oral.Susp G-TUBE 30 ml Q4H PRN Administration Dyspepsia Amphetamine/Dextroamphetamine 5 mg 02/01/21 13:00 02/22/21 13:41 Amphetamine Mixed Salts 10 Mg Tablet G-TUBE 5 mg BID@0800,1300 [facility] Administration Budesonide 2 puff 12/31/20 20:00 02/22/21 21:45 Budesonide 180 Mcg Aer.Pow.Ba INHALE 2 puff RBID [facility] Administration Clotrimazole 1 appl 01/06/21 21:00 02/22/21 21:47 Clotrimazole 1 % Cream 15 Gm Tube TOPICAL Not Given BID [facility] Protocol Famotidine 20 mg 01/09/21 09:00 02/22/21 08:00 Famotidine 20 Mg Tablet G-TUBE 20 mg DAILY [facility] Administration Fluoxetine HCl 10 mg 02/18/21 09:00 02/22/21 08:00 Fluoxetine Hcl Oral Solution 20 Mg/5 Ml Solution PO 10 mg DAILY [facility] Administration Hydrocortisone 2.5 mg 01/23/21 19:00 02/22/21 16:52 Hydrocortisone 10 Mg Tablet PO 2.5 mg DAILY@1900 [facility] Administration Hydrocortisone 5 mg 01/23/21 13:00 02/22/21 13:41 Hydrocortisone 10 Mg Tablet PO 5 mg DAILY@1300 [facility] Administration Hydrocortisone 10 mg 01/28/21 08:00 02/22/21 08:00 Hydrocortisone 10 Mg Tablet PO 10 mg DAILY@0800 [facility] Administration Loperamide HCl 2 mg 02/18/21 21:30 02/19/21 09:58 Loperamide Hcl Oral Liquid 2 Mg/15 Ml Liquid G-TUBE 2 mg Q6H PRN Administration Diarrhea Mirtazapine 7.5 mg 01/14/21 21:00 02/22/21 21:45 Mirtazapine 7.5 Mg Tablet G-TUBE 7.5 mg BEDTIME [facility] Administration Omeprazole 40 mg 01/08/21 16:30 02/22/21 16:52 Omeprazole 20 Mg/10 Ml Susp.Recon G-TUBE 40 mg BID@0630,1630 [facility] Administration Ondansetron HCl 4 mg 02/12/21 08:56 Ondansetron Hcl 4 Mg/2 Ml Vial IVPUSH ONCE PRN Nausea and Vomiting Thiamine HCl 100 mg 01/09/21 09:00 02/22/21 08:00 Thiamine Hcl 100 Mg Tablet G-TUBE 100 mg DAILY [facility] Administration Allergies Allergies Allergy/AdvReac Type Severity Reaction Status Date / Time Sulfa (Sulfonamide Allergy Unknown UNKNOWN Verified 12/01/20 09:47 Antibiotics) [SULFA (SULFONAMIDE ANTIBIOTICS)] zoster vaccine live Allergy Hives Verified 12/01/20 09:47 Assessment & Plan Assessment & Plan (1) Bipolar disorder: Status: Acute Code(s): F31.9 - Bipolar disorder, unspecified Assessment and Plan: No changes. Appears to have responded well to ECT treatment. Now at stage of seeking physical rehab referral and disposition planning cont prozac adderalol Greater than 50% of the session was spent on counseling and/or coordination of care Reason for contiued inpatient stay Substantial Risk for: inability to function, rapid decompensation and med/psych decompensation
[2021-02-23 06:42] VITALS: BP 147/77; PULSE 85; RESP 16; TEMP 36.3; O2SAT 94
[2021-02-23] MEDS: FLUoxetine HCl Oral Solution 20 MG/5 ML SOLUTION 10 MG PO (10:08)
[2021-02-23] MEDS: Budesonide 180 MCG AER.POW.BA 2 PUFF INHALE ×2 (10:08→20:57)
[2021-02-23] MEDS: Famotidine 20 MG TABLET G-TUBE (10:09)
[2021-02-23] MEDS: Amphetamine Mixed Salts 10 MG TABLET 5 MG G-TUBE ×2 (10:09→13:20)
[2021-02-23] MEDS: Hydrocortisone 10 MG TABLET PO (10:09)
[2021-02-23] MEDS: Thiamine HCL 100 MG TABLET G-TUBE (10:09)
[2021-02-23] MEDS: Clotrimazole 1 % Cream 15 GM TUBE 1 APPL TOPICAL ×2 (10:11→20:57)
[2021-02-23 10:35] VITALS: BP 141/81; PULSE 76; RESP 16; TEMP 35.9; O2SAT 96
[2021-02-23] MEDS: Hydrocortisone 10 MG TABLET 5 MG PO (13:20)
[2021-02-23] MEDS: Hydrocortisone 10 MG TABLET 2.5 MG PO (18:55)
[2021-02-23] MEDS: Mirtazapine 7.5 MG TABLET G-TUBE (20:57)
--- NOTE | 2021-02-23 22:01 | HO.PSYCHPN ---
Subjective Subjective Date of Service: 02/23/21 Reason For Visit: severe depression Subjective Notes: Conditional Voluntary Medical Problems Affecting Mental Status: Yes Interim History: patient has shown improvement in mood blunted seen with remains on one-to-one secondary to fall risk feedings have been changed to bolus feedings will hold ECT for now continues to have swallowing difficulties negotiating referral to rehab setting Medication Compliance: Yes Attending Groups: No Mental Status Exam Mental Status Exam Patient Appearance: Well Grooomed (on hospital gowns) Patient Orientation: Person, Place, Time and Situation Level of Consciousness: Awake Patient Behavior: Appropriate Mood Description: Calm Affect Description: Calm, Appropriate and Flat Patient Cognition Impaired: No Ability to Follow Directions: Good Speech Pattern: Clear and Delayed Memory Description: Intact Thought Process: Rumination Thought Content: positive for Preoccupation, negative for Logical, negative for Suicidal Ideation and negative for Homicidal Ideation Depressive Symptoms: Increased Fatigue Abnormal Motor Activity Signs and Symptoms: Psychomotor Retardation Diagnostics Vital Signs (24Hr): Vital Signs - 24 hr 02/23/21 06:42 02/23/21 10:35 Temperature 97.4 F 96.7 F L Pulse Rate 85 76 Respiratory Rate 16 16 Blood Pressure 147/77 H 141/81 H Pulse Oximetry 94 96 Body Mass Index 17.5 Labs Results: 01/15/21 14:51 02/17/21 10:29 Labs: Laboratory Results - last 48 hr 02/22/21 02/22/21 02/22/21 06:42 11:37 20:53 POC Glucose 89 135 H 138 H Imaging Radiology Impressions: ITS Impressions Modified Barium Swallow 01/07/21 14:15 IMPRESSION: Laryngeal penetration and occasional aspiration as described above. Please refer to speech pathology report for details. Chest X-Ray 01/10/21 09:11 IMPRESSION: Severe chronic interstitial lung disease. No evidence of acute superimposed pneumonitis. Modified Barium Swallow 02/10/21 12:56 IMPRESSION: Vallecular retention with laryngeal penetration. 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 No CT evidence of intracranial bleed. No skull fracture. Normal CT scan does not rule out the possibility of hyperacute infarct in the first 12 hours. If patient symptoms persist may consider correlation with MRI, which is more sensitive for early acute infarct. Medications Medications Current Medications Generic Name Dose Route Start Last Admin Trade Name Freq PRN Reason Stop Dose Admin Acetaminophen 650 mg 01/09/21 15:51 02/01/21 09:10 Acetaminophen 325 Mg Tablet G-TUBE 650 mg Q4H PRN Administration Pain, Mild (Pain Scale 1-3) Al Hydroxide/Mg Hydroxide 30 ml 01/08/21 15:46 02/11/21 17:51 Magnesium Hydrox/Alum Hydrox 30 Ml Oral.Susp G-TUBE 30 ml Q4H PRN Administration Dyspepsia Amphetamine/Dextroamphetamine 5 mg 02/01/21 13:00 02/23/21 13:20 Amphetamine Mixed Salts 10 Mg Tablet G-TUBE 5 mg BID@0800,1300 [facility] Administration Budesonide 2 puff 12/31/20 20:00 02/23/21 20:57 Budesonide 180 Mcg Aer.Pow.Ba INHALE 2 puff RBID [facility] Administration Clotrimazole 1 appl 01/06/21 21:00 02/23/21 20:57 Clotrimazole 1 % Cream 15 Gm Tube TOPICAL 1 appl BID [facility] Administration Protocol Famotidine 20 mg 01/09/21 09:00 02/23/21 10:09 Famotidine 20 Mg Tablet G-TUBE 20 mg DAILY [facility] Administration Fluoxetine HCl 10 mg 02/18/21 09:00 02/23/21 10:08 Fluoxetine Hcl Oral Solution 20 Mg/5 Ml Solution PO 10 mg DAILY [facility] Administration Hydrocortisone 2.5 mg 01/23/21 19:00 02/23/21 18:55 Hydrocortisone 10 Mg Tablet PO 2.5 mg DAILY@1900 [facility] Administration Hydrocortisone 5 mg 01/23/21 13:00 02/23/21 13:20 Hydrocortisone 10 Mg Tablet PO 5 mg DAILY@1300 [facility] Administration Hydrocortisone 10 mg 01/28/21 08:00 02/23/21 10:09 Hydrocortisone 10 Mg Tablet PO 10 mg DAILY@0800 [facility] Administration Loperamide HCl 2 mg 02/18/21 21:30 02/19/21 09:58 Loperamide Hcl Oral Liquid 2 Mg/15 Ml Liquid G-TUBE 2 mg Q6H PRN Administration Diarrhea Mirtazapine 7.5 mg 01/14/21 21:00 02/23/21 20:57 Mirtazapine 7.5 Mg Tablet G-TUBE 7.5 mg BEDTIME [facility] Administration Omeprazole 40 mg 01/08/21 16:30 02/23/21 16:35 Omeprazole 20 Mg/10 Ml Susp.Recon G-TUBE 40 mg BID@0630,1630 [facility] Administration Ondansetron HCl 4 mg 02/12/21 08:56 Ondansetron Hcl 4 Mg/2 Ml Vial IVPUSH ONCE PRN Nausea and Vomiting Thiamine HCl 100 mg 01/09/21 09:00 02/23/21 10:09 Thiamine Hcl 100 Mg Tablet G-TUBE 100 mg DAILY [facility] Administration Allergies Allergies Allergy/AdvReac Type Severity Reaction Status Date / Time Sulfa (Sulfonamide Allergy Unknown UNKNOWN Verified 12/01/20 09:47 Antibiotics) [SULFA (SULFONAMIDE ANTIBIOTICS)] zoster vaccine live Allergy Hives Verified 12/01/20 09:47 Assessment & Plan Assessment & Plan (1) Bipolar disorder: Status: Acute Code(s): F31.9 - Bipolar disorder, unspecified (2) Bipolar 1 disorder, depressed, severe: Status: Acute Code(s): F31.4 - Bipolar disorder, current episode depressed, severe, without psychotic features Assessment and Plan: No changes. Appears to have responded well to ECT treatment. Now at stage of seeking physical rehab referral and disposition planning cont prozac adderall referral to ENT to see if any other cause of swallowing disorder referral to rehab setting Greater than 50% of the session was spent on counseling and/or coordination of care Reason for contiued inpatient stay Substantial Risk for: inability to function, rapid decompensation and med/psych decompensation
[2021-02-24 05:54] VITALS: BP 122/77; PULSE 86; RESP 28; TEMP 37.1; O2SAT 96
[2021-02-24 06:00] LABS: Glucose, Whole Blood 72 mg/dL (60-115)
[2021-02-24] MEDS: Thiamine HCL 100 MG TABLET G-TUBE (08:40)
[2021-02-24] MEDS: Famotidine 20 MG TABLET G-TUBE (08:41)
[2021-02-24] MEDS: Amphetamine Mixed Salts 10 MG TABLET 5 MG G-TUBE (08:41)
[2021-02-24] MEDS: Budesonide 180 MCG AER.POW.BA 2 PUFF INHALE ×2 (08:42→20:23)
[2021-02-24] MEDS: Hydrocortisone 10 MG TABLET PO (08:42)
[2021-02-24] MEDS: Clotrimazole 1 % Cream 15 GM TUBE 1 APPL TOPICAL ×2 (08:43→20:24)
[2021-02-24] MEDS: FLUoxetine HCl Oral Solution 20 MG/5 ML SOLUTION 10 MG PO (08:43)
[2021-02-24 09:00] VITALS: BP 136/77; PULSE 77; TEMP 36.3; O2SAT 96
--- NOTE | 2021-02-24 09:08 | MHC.CLN ---
NUTRITION FOLLOW UP APPEARS TO BE TOLERATING BOLUS TUBE FEEDING. NO NEW LABS. CONTINUE CURRENT BOLUS TUBE FEEDING.
[2021-02-24] MEDS: LORazepam 0.5 MG TABLET PO ×3 (11:03→18:48)
[2021-02-24 11:47] LABS: Glucose, Whole Blood 134 mg/dL (60-115)
[2021-02-24] MEDS: Amphetamine Mixed Salts 10 MG TABLET 7.5 MG G-TUBE (12:48)
[2021-02-24] MEDS: Hydrocortisone 10 MG TABLET 5 MG PO ×2 (12:49→12:52)
[2021-02-24 18:00] VITALS: BP 132/74; PULSE 74; RESP 22; TEMP 36.6; O2SAT 97
[2021-02-24 18:36] LABS: Glucose, Whole Blood 133 mg/dL (60-115)
[2021-02-24] MEDS: Mirtazapine 7.5 MG TABLET G-TUBE (20:24)
[2021-02-24 20:47] LABS: Glucose, Whole Blood 117 mg/dL (60-115)
--- NOTE | 2021-02-24 22:06 | P.PNPSI_ITS ---
Subjective Subjective Date of Service: 02/24/21 Reason For Visit: severe depression Subjective Notes: Conditional Voluntary Medical Problems Affecting Mental Status: Yes Interim History: pt has been more anxious unclear d/c at this point taking more ativan Medication Compliance: Yes Mental Status Exam Mental Status Exam Patient Appearance: Well Grooomed (on hospital gowns) Patient Orientation: Person, Place, Time and Situation Level of Consciousness: Awake Patient Behavior: Appropriate Mood Description: Calm Affect Description: Calm, Appropriate and Flat Patient Cognition Impaired: No Ability to Follow Directions: Good Speech Pattern: Clear and Delayed Memory Description: Intact Thought Process: Rumination Thought Content: positive for Preoccupation, negative for Logical, negative for Suicidal Ideation and negative for Homicidal Ideation Depressive Symptoms: Increased Fatigue Abnormal Motor Activity Signs and Symptoms: Psychomotor Retardation Diagnostics Vital Signs (24Hr): Vital Signs - 24 hr 02/24/21 05:54 02/24/21 09:00 02/24/21 18:00 Temperature 98.7 F 97.3 F 97.8 F Pulse Rate 86 77 74 Respiratory Rate 28 H 22 H Blood Pressure 122/77 136/77 132/74 Pulse Oximetry 96 96 97 Body Mass Index 17.5 Labs Results: 01/15/21 14:51 02/17/21 10:29 Labs: Laboratory Results - last 48 hr 02/24/21 02/24/21 02/24/21 05:50 11:34 18:16 POC Glucose 72 134 H 133 H 02/24/21 20:42 POC Glucose 117 H Imaging Radiology Impressions: ITS Impressions Modified Barium Swallow 01/07/21 14:15 IMPRESSION: Laryngeal penetration and occasional aspiration as described above. Please refer to speech pathology report for details. Chest X-Ray 01/10/21 09:11 IMPRESSION: Severe chronic interstitial lung disease. No evidence of acute superimposed pneumonitis. Modified Barium Swallow 02/10/21 12:56 IMPRESSION: Vallecular retention with laryngeal penetration. 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 No CT evidence of intracranial bleed. No skull fracture. Normal CT scan does not rule out the possibility of hyperacute infarct in the first 12 hours. If patient symptoms persist may consider correlation with MRI, which is more sensitive for early acute infarct. Medications Medications Current Medications Generic Name Dose Route Start Last Admin Trade Name Joaquín PRN Reason Stop Dose Admin Acetaminophen 650 mg 01/09/21 15:51 02/01/21 09:10 Acetaminophen 325 Mg Tablet G-TUBE 650 mg Q4H PRN Administration Pain, Mild (Pain Scale 1-3) Al Hydroxide/Mg Hydroxide 30 ml 01/08/21 15:46 02/11/21 17:51 Magnesium Hydrox/Alum Hydrox 30 Ml Oral.Susp G-TUBE 30 ml Q4H PRN Administration Dyspepsia Amphetamine/Dextroamphetamine 5 mg 02/25/21 08:00 Amphetamine Mixed Salts 10 Mg Tablet G-TUBE BID@0800,1300 [facility] Budesonide 2 puff 12/31/20 20:00 02/24/21 20:23 Budesonide 180 Mcg Aer.Pow.Ba INHALE 2 puff RBID [facility] Administration Clotrimazole 1 appl 01/06/21 21:00 02/24/21 20:24 Clotrimazole 1 % Cream 15 Gm Tube TOPICAL 1 appl BID [facility] Administration Protocol Famotidine 20 mg 01/09/21 09:00 02/24/21 08:41 Famotidine 20 Mg Tablet G-TUBE 20 mg DAILY [facility] Administration Fluoxetine HCl 7.5 mg 02/25/21 09:00 Fluoxetine Hcl Oral Solution 20 Mg/5 Ml Solution PO DAILY [facility] Hydrocortisone 2.5 mg 01/23/21 19:00 02/23/21 18:55 Hydrocortisone 10 Mg Tablet PO 2.5 mg DAILY@1900 [facility] Administration Hydrocortisone 5 mg 01/23/21 13:00 02/24/21 12:52 Hydrocortisone 10 Mg Tablet PO 5 mg DAILY@1300 [facility] Administration Hydrocortisone 10 mg 01/28/21 08:00 02/24/21 08:42 Hydrocortisone 10 Mg Tablet PO 10 mg DAILY@0800 [facility] Administration Loperamide HCl 2 mg 02/18/21 21:30 02/19/21 09:58 Loperamide Hcl Oral Liquid 2 Mg/15 Ml Liquid G-TUBE 2 mg Q6H PRN Administration Diarrhea Lorazepam 0.5 mg 02/24/21 10:07 02/24/21 18:48 Lorazepam 0.5 Mg Tablet PO 0.5 mg Q4H PRN Administration anxiety/restlessness Mirtazapine 7.5 mg 01/14/21 21:00 02/24/21 20:24 Mirtazapine 7.5 Mg Tablet G-TUBE 7.5 mg BEDTIME [facility] Administration Omeprazole 40 mg 01/08/21 16:30 02/24/21 16:42 Omeprazole 20 Mg/10 Ml Susp.Recon G-TUBE 40 mg BID@0630,1630 [facility] Administration Ondansetron HCl 4 mg 02/12/21 08:56 Ondansetron Hcl 4 Mg/2 Ml Vial IVPUSH ONCE PRN Nausea and Vomiting Thiamine HCl 100 mg 01/09/21 09:00 02/24/21 08:40 Thiamine Hcl 100 Mg Tablet G-TUBE 100 mg DAILY [facility] Administration Allergies Allergies Allergy/AdvReac Type Severity Reaction Status Date / Time Sulfa (Sulfonamide Allergy Unknown UNKNOWN Verified 12/01/20 09:47 Antibiotics) [SULFA (SULFONAMIDE ANTIBIOTICS)] zoster vaccine live Allergy Hives Verified 12/01/20 09:47 Assessment & Plan Assessment & Plan (1) Bipolar disorder: Status: Acute Code(s): F31.9 - Bipolar disorder, unspecified (2) Bipolar 1 disorder, depressed, severe: Status: Acute Code(s): F31.4 - Bipolar disorder, current episode depressed, severe, without psychotic features Assessment and Plan: No changes. Appears to have responded well to ECT treatment. Now at stage of seeking physical rehab referral and disposition planning cont prozac adderall referral to ENT to see if any other cause of swallowing disorder referral to r ehab setting this continues respiratory consult Greater than 50% of the session was spent on counseling and/or coordination of care Reason for contiued inpatient stay Substantial Risk for: rapid decompensation and med/psych decompensation
[2021-02-25 06:00] VITALS: BP 135/72; PULSE 74; RESP 22; TEMP 36.6; O2SAT 97
[2021-02-25 06:08] LABS: Glucose, Whole Blood 75 mg/dL (60-115)
[2021-02-25 06:39] LABS: MANUAL DIFF FLAG NO
[2021-02-25 07:04] LABS: Basophils Absolute Auto 0.1 X10*3/uL (0.0-0.2); Basophils Percent Auto 0.8 % (0-2); Eosinophils Absolute Auto 0.5 X10*3/uL (0.0-0.4); Eosinophils Percent Auto 4.7 % (0-4); Hematocrit 32.6 % (42-52); Hemoglobin 10.8 g/dl (14.0-18.0); Imm Gran Abs Auto 0.05 X10*3/uL (0.00-0.03); Imm Gran Pct Auto 0.5 % (0.0-0.4); Lymphocytes Absolute Auto 3.3 X10*3/uL (1.2-4.9); Lymphocytes Percent Auto 33.7 % (20-40); Mean Corpuscular HGB Conc 33.1 g/dl (31.0-36.0); Mean Corpuscular Hemoglobin 32.3 pg (27.0-33.0); Mean Corpuscular Volume 97.6 fL (80-98); Mean Platelet Volume 12.1 fL (9.4-12.4); Monocytes Percent Auto 9.9 % (2-11); Neutrophils Absolute Auto 4.9 X10*3/uL (2.0-8.3); Neutrophils Percent Auto 50.4 % (45-73); Platelet Count 206 X10*3/uL (160-400); Red Blood Count 3.34 X10*6/uL (4.60-5.80); Red Cell Distribution Width 15.1 % (11.0-16.0); White Blood Count 9.8 X10*3/uL (4.8-10.8)
[2021-02-25 07:16] LABS: Alanine Aminotransferase 34 U/L (0-40); Alkaline Phosphatase 110 U/L (39-117); Anion Gap 7 (12-20); Aspartate Amino Transferase 26 U/L (5-37); Bilirubin Total < 0.2 mg/dL (0.0-1.0); Blood Urea Nitrogen 23 mg/dL (9-16); Calcium 9.1 mg/dL (8.4-10.2); Carbon Dioxide 35 mmol/L (22-29); Chloride 98 mmol/L (96-108); Creatinine Clr Calc Pharmacy 52.4; Estimated Glomerular Filt Rate > 60; Glucose Fasting 89 mg/dL (60-99); Potassium 4.8 mmol/L (3.3-5.1); Sodium 135 mmol/L (135-145); Total Protein 6.3 g/dL (6.5-8.0)
[2021-02-25 07:29] LABS: Estimated Average Glucose 111 mg/dL; Hemoglobin A1c % 5.5 %
[2021-02-25] MEDS: Amphetamine Mixed Salts 10 MG TABLET 5 MG G-TUBE ×2 (08:49→12:12)
[2021-02-25] MEDS: Thiamine HCL 100 MG TABLET G-TUBE (08:50)
[2021-02-25] MEDS: Famotidine 20 MG TABLET G-TUBE (08:50)
[2021-02-25] MEDS: Hydrocortisone 10 MG TABLET PO (08:50)
[2021-02-25] MEDS: FLUoxetine HCl Oral Solution 20 MG/5 ML SOLUTION 7.5 MG PO (08:51)
[2021-02-25] MEDS: Budesonide 180 MCG AER.POW.BA 2 PUFF INHALE ×2 (09:21→20:52)
[2021-02-25] MEDS: Clotrimazole 1 % Cream 15 GM TUBE 1 APPL TOPICAL (09:22)
[2021-02-25] MEDS: LORazepam 0.5 MG TABLET PO ×2 (10:21→16:44)
--- NOTE | 2021-02-25 11:00 | HO.PSYCHPN ---
Subjective Subjective Date of Service: 02/25/21 Reason For Visit: severe depression Subjective Notes: Conditional Voluntary Interim History: Patient flat some dulling of cognition no further ECT at this time continue S on fluoxetine low-dose Adderall Ativan has improved anxiety to some degree. Patient with some complaints of shortness of breath pulmonary consult pending Medication Compliance: Yes Mental Status Exam Mental Status Exam Patient Appearance: Well Grooomed (on hospital gowns) Patient Orientation: Person, Place, Time and Situation Level of Consciousness: Awake Patient Behavior: Appropriate Mood Description: Calm Affect Description: Calm, Appropriate and Flat Patient Cognition Impaired: No Ability to Follow Directions: Good Speech Pattern: Clear and Delayed Memory Description: Intact Thought Process: Rumination Thought Content: positive for Preoccupation, negative for Logical, negative for Suicidal Ideation and negative for Homicidal Ideation Depressive Symptoms: Increased Fatigue Abnormal Motor Activity Signs and Symptoms: Psychomotor Retardation Diagnostics Vital Signs (24Hr): Vital Signs - 24 hr 02/24/21 18:00 02/25/21 06:00 Temperature 97.8 F 97.8 F Pulse Rate 74 74 Respiratory Rate 22 H 22 H Blood Pressure 132/74 135/72 Pulse Oximetry 97 97 Body Mass Index 17.5 Labs Results: 02/25/21 06:35 02/25/21 06:35 Labs: Laboratory Results - last 48 hr 02/24/21 02/24/21 02/24/21 05:50 11:34 18:16 WBC RBC Hgb Hct MCV MCH MCHC RDW Plt Count MPV Immature Gran % (Auto) Neut % (Auto) Lymph % (Auto) [place] % (Auto) Eos % (Auto) Baso % (Auto) Lymph # (Auto) [place] # (Auto) Eos # (Auto) Baso # (Auto) Abs Immat Gran (auto) Absolute Neuts (auto) Absolute Nucleated RBC Nucleated RBC % (auto) Sodium Potassium Chloride Carbon Dioxide Anion Gap BUN Creatinine Estim Creat Clear Calc Estimated GFR POC Glucose 72 134 H 133 H Fasting Glucose Estimat Average Glucose Hemoglobin A1c % Calcium Total Bilirubin AST ALT Alkaline Phosphatase Total Protein Albumin 02/24/21 02/25/21 02/25/21 20:42 06:05 06:35 WBC 9.8 RBC 3.34 L Hgb 10.8 L Hct 32.6 L MCV 97.6 MCH 32.3 MCHC 33.1 RDW 15.1 Plt Count 206 D MPV 12.1 Immature Gran % (Auto) 0.5 H Neut % (Auto) 50.4 Lymph % (Auto) 33.7 [place] % (Auto) 9.9 Eos % (Auto) 4.7 H Baso % (Auto) 0.8 Lymph # (Auto) 3.3 [place] # (Auto) 1.0 Eos # (Auto) 0.5 H Baso # (Auto) 0.1 Abs Immat Gran (auto) 0.05 H Absolute Neuts (auto) 4.9 Absolute Nucleated RBC 0.000 Nucleated RBC % (auto) 0.0 Sodium Potassium Chloride Carbon Dioxide Anion Gap BUN Creatinine Estim Creat Clear Calc Estimated GFR POC Glucose 117 H 75 Fasting Glucose Estimat Average Glucose Hemoglobin A1c % Calcium Total Bilirubin AST ALT Alkaline Phosphatase Total Protein Albumin 02/25/21 02/25/21 06:35 06:35 WBC RBC Hgb Hct MCV MCH MCHC RDW Plt Count MPV Immature Gran % (Auto) Neut % (Auto) Lymph % (Auto) [place] % (Auto) Eos % (Auto) Baso % (Auto) Lymph # (Auto) [place] # (Auto) Eos # (Auto) Baso # (Auto) Abs Immat Gran (auto) Absolute Neuts (auto) Absolute Nucleated RBC Nucleated RBC % (auto) Sodium 135 Potassium 4.8 Chloride 98 Carbon Dioxide 35 H Anion Gap 7 L BUN 23 H Creatinine 0.82 Estim Creat Clear Calc 52.4 Estimated GFR > 60 POC Glucose Fasting Glucose 89 Estimat Average Glucose 111 Hemoglobin A1c % 5.5 Calcium 9.1 Total Bilirubin < 0.2 AST 26 ALT 34 Alkaline Phosphatase 110 D Total Protein 6.3 L Albumin 3.0 L Imaging Radiology Impressions: ITS Impressions Modified Barium Swallow 01/07/21 14:15 IMPRESSION: Laryngeal penetration and occasional aspiration as described above. Please refer to speech pathology report for details. Chest X-Ray 01/10/21 09:11 IMPRESSION: Severe chronic interstitial lung disease. No evidence of acute superimposed pneumonitis. Modified Barium Swallow 02/10/21 12:56 IMPRESSION: Vallecular retention with laryngeal penetration. 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 No CT evidence of intracranial bleed. No skull fracture. Normal CT scan does not rule out the possibility of hyperacute infarct in the first 12 hours. If patient symptoms persist may consider correlation with MRI, which is more sensitive for early acute infarct. Medications Medications Current Medications Generic Name Dose Route Start Last Admin Trade Name Joaquín PRN Reason Stop Dose Admin Acetaminophen 650 mg 01/09/21 15:51 02/01/21 09:10 Acetaminophen 325 Mg Tablet G-TUBE 650 mg Q4H PRN Administration Pain, Mild (Pain Scale 1-3) Al Hydroxide/Mg Hydroxide 30 ml 01/08/21 15:46 02/11/21 17:51 Magnesium Hydrox/Alum Hydrox 30 Ml Oral.Susp G-TUBE 30 ml Q4H PRN Administration Dyspepsia Amphetamine/Dextroamphetamine 5 mg 02/25/21 08:00 02/25/21 08:49 Amphetamine Mixed Salts 10 Mg Tablet G-TUBE 5 mg BID@0800,1300 DOMINICK Administration Budesonide 2 puff 12/31/20 20:00 02/25/21 09:21 Budesonide 180 Mcg Aer.Pow.Ba INHALE 2 puff RBID DOMINICK Administration Clotrimazole 1 appl 01/06/21 21:00 02/25/21 09:22 Clotrimazole 1 % Cream 15 Gm Tube TOPICAL 1 appl BID DOMINICK Administration Protocol Famotidine 20 mg 01/09/21 09:00 02/25/21 08:50 Famotidine 20 Mg Tablet G-TUBE 20 mg DAILY DOMINICK Administration Fluoxetine HCl 7.5 mg 02/25/21 09:00 02/25/21 08:51 Fluoxetine Hcl Oral Solution 20 Mg/5 Ml Solution PO 7.5 mg DAILY DOMINICK Administration Hydrocortisone 2.5 mg 01/23/21 19:00 02/25/21 03:10 Hydrocortisone 10 Mg Tablet PO Not Given DAILY@1900 DOMINICK Hydrocortisone 5 mg 01/23/21 13:00 02/24/21 12:52 Hydrocortisone 10 Mg Tablet PO 5 mg DAILY@1300 DOMINICK Administration Hydrocortisone 10 mg 01/28/21 08:00 02/25/21 08:50 Hydrocortisone 10 Mg Tablet PO 10 mg DAILY@0800 DOMINICK Administration Loperamide HCl 2 mg 02/18/21 21:30 02/19/21 09:58 Loperamide Hcl Oral Liquid 2 Mg/15 Ml Liquid G-TUBE 2 mg Q6H PRN Administration Diarrhea Lorazepam 0.5 mg 02/24/21 10:07 02/25/21 10:21 Lorazepam 0.5 Mg Tablet PO 0.5 mg Q4H PRN Administration anxiety/restlessness Mirtazapine 7.5 mg 01/14/21 21:00 02/24/21 20:24 Mirtazapine 7.5 Mg Tablet G-TUBE 7.5 mg BEDTIME DOMINICK Administration Omeprazole 40 mg 01/08/21 16:30 02/25/21 05:55 Omeprazole 20 Mg/10 Ml Susp.Recon G-TUBE 40 mg BID@0630,1630 DOMINICK Administration Ondansetron HCl 4 mg 02/12/21 08:56 Ondansetron Hcl 4 Mg/2 Ml Vial IVPUSH ONCE PRN Nausea and Vomiting Thiamine HCl 100 mg 01/09/21 09:00 02/25/21 08:50 Thiamine Hcl 100 Mg Tablet G-TUBE 100 mg DAILY DOMINICK Administration Allergies Allergies Allergy/AdvReac Type Severity Reaction Status Date / Time Sulfa (Sulfonamide Allergy Unknown UNKNOWN Verified 12/01/20 09:47 Antibiotics) [SULFA (SULFONAMIDE ANTIBIOTICS)] zoster vaccine live Allergy Hives Verified 12/01/20 09:47 Assessment & Plan Assessment & Plan (1) Bipolar disorder: Status: Acute Code(s): F31.9 - Bipolar disorder, unspecified (2) Bipolar 1 disorder, depressed, severe: Status: Acute Code(s): F31.4 - Bipolar disorder, current episode depressed, severe, without psychotic features Assessment and Plan: No changes. Appears to have responded well to ECT treatment. Now at stage of seeking physical rehab referral and disposition planning cont prozac adderall referral to ENT to see if any other cause of swallowing disorder referral to rehab setting this continues respiratory consult and Pulmonary consult Podiatry consult. Avoid antipsychotic medication continue steroid treatment for question of steroid deficiency. Discussing with patient and family Greater than 50% of the session was spent on counseling and/or coordination of care Reason for contiued inpatient stay Substantial Risk for: inability to function, rapid decompensation and med/psych decompensation
[2021-02-25] MEDS: Hydrocortisone 10 MG TABLET 5 MG PO (12:14)
[2021-02-25 12:44] LABS: Glucose, Whole Blood 102 mg/dL (60-115)
[2021-02-25] MEDS: Loperamide HCl Oral Liquid 2 MG/15 ML LIQUID G-TUBE (16:38)
[2021-02-25 17:28] LABS: Glucose, Whole Blood 132 mg/dL (60-115)
[2021-02-25 18:00] VITALS: BP 147/75; PULSE 76; RESP 16; TEMP 36.5; O2SAT 98
--- NOTE | 2021-02-25 18:37 | PC.NURSE ---
Patient is on O2 2L when out of bed. He went into bathroom with help of his without O2 and O2 sats dropped to 82%.When back in bed he did put O2 on at 2L . His Sats did come back up into 90's but it did take about 15 minutes. He has a pulmonology consult ordered primarily for discharge orders for at home oxygen.
[2021-02-25 20:51] LABS: Glucose, Whole Blood 93 mg/dL (60-115)
[2021-02-25] MEDS: Mirtazapine 7.5 MG TABLET G-TUBE (20:52)
[2021-02-25] MEDS: Hydrocortisone 10 MG TABLET 2.5 MG PO (21:10)
[2021-02-26 06:00] VITALS: BP 136/74; PULSE 80; RESP 18; TEMP 36.8; O2SAT 93
[2021-02-26] MEDS: Famotidine 20 MG TABLET G-TUBE (09:03)
[2021-02-26] MEDS: Hydrocortisone 10 MG TABLET PO (09:03)
[2021-02-26] MEDS: Amphetamine Mixed Salts 10 MG TABLET 5 MG G-TUBE ×2 (09:03→13:41)
[2021-02-26] MEDS: Budesonide 180 MCG AER.POW.BA 2 PUFF INHALE ×2 (09:03→21:16)
[2021-02-26] MEDS: FLUoxetine HCl Oral Solution 20 MG/5 ML SOLUTION 7.5 MG PO (09:03)
--- NOTE | 2021-02-26 09:03 | PM.PNPUL ---
Subjective Subjective Date of Service: 02/26/21 Principal diagnosis: Aspiration Interval history: The patient was seen and examined. Currently being evaluated for discharge. The patient has been doing well from a respiratory status. He has not required any nebulized therapy. He does have a nebulizer at home. In addition to that he has been using the Pulmicort inhaler while in the hospital. He also takes chronic steroids for his adrenal insufficiency. He has been using the oxygen off and specially when he goes through coughing spells. His pulse ox on room air was noted to be 93%. The patient does benefit from oxygen supplementation due to his chronic pulmonary fibrosis. Will plan to do a 6 minutes walk test in an overnight oximetry in order to address the question of oxygen need. Objective Data Labs CBC & Chem 7: 02/25/21 06:35 02/25/21 06:35 Labs: Laboratory Results - last 24 hr 02/25/21 02/25/21 02/25/21 12:23 17:24 20:35 POC Glucose 102 132 H 93 Microbiology Microbiology Results: Microbiology 01/10/21 09:26 Blood - Venous Blood Culture - Final No growth after 5 days. 01/10/21 09:26 Blood - Venous Blood Culture - Final No growth after 5 days. Review of Systems Constitutional: Reports fatigue, Reports lethargy, Reports malaise, Denies night sweats and Reports weight loss Denies change in voice, Reports dysphagia, Denies lip swelling, Denies mouth pain, Reports nasal congestion, Reports nasal discharge and Denies tongue swelling Cardiovascular: Denies chest pain and Reports dyspnea Respiratory: Reports cough, Denies hemoptysis and Reports dyspnea Gastrointestinal: Denies abdominal pain and Reports dysphagia Musculoskeletal: Denies no additional musculoskeletal complaints Denies Neuro-related abnormal movements Psychiatric: Denies no additional psychiatric complaints Endocrine: Reports fatigue Hematologic/Lymphatic: Denies easy bleeding and Denies lymphadenopathy Allergic/Immunologic: Denies lip swelling and Denies tongue swelling Physical Exam Vital Signs: Vital Signs: Last Vital Signs Temp 98.3 F 02/26/21 06:00 Pulse 80 02/26/21 06:00 Resp 18 02/26/21 06:00 BP 136/74 02/26/21 06:00 Pulse Ox 93 02/26/21 06:00 Body Mass Index 17.5 Const: General: cooperative; No acute distress Neck: Neck: Yes normal visual inspection, Yes full ROM and Yes no lymphadenopathy Chest: Chest palpation & inspection: normal inspection of the chest Resp: Auscultation: rales, no rhonchi, no wheezes and diminished lung sounds Cardio: Rate: regular rate Rhythm: regular rhythm Heart sounds: S1 normal heart sound present and S2 normal heart sound present GI: Palpation (GI): Soft to palpation and nontender Auscultation: normal bowel sounds Procedures Date of Service Date of Service: 02/26/21 Assessment and Plan Assessment and plan (1) Chronic respiratory failure: Status: Acute (2) Pulmonary fibrosis: Status: Acute (3) Bronchiectasis: Status: Acute Assessment and Plan: Will plan a 6 minutes walk test to see address his oxygen needs with activity. The patient may be limited from a physical standpoint. Will try and see how much he can tolerate. Overnight oximetry on room air Continue Pulmicort inhaler twice a day Should have a short-acting beta agonist, albuterol available via nebulizer and also via inhaler. Time Spent With Patient Time: Total time spent is greater than 50% in coordination of care (as documented) at patient's floor/unit and/or counseling patient: Time with patient: 15 - 24 minutes Progress Note: Quality Stroke Does the patient have a stroke diagnosis?: No
[2021-02-26] MEDS: Thiamine HCL 100 MG TABLET G-TUBE (09:04)
[2021-02-26 09:15] LABS: Glucose, Whole Blood 79 mg/dL (60-115)
--- NOTE | 2021-02-26 10:11 | HO.PSYCHPN ---
Subjective Subjective Date of Service: 02/26/21 Reason For Visit: severe depression Subjective Notes: Conditional Voluntary Medical Problems Affecting Mental Status: Yes Interim History: pt flat less depressed continues on peg feedings c/o anxiety sob Medication Compliance: Yes Mental Status Exam Mental Status Exam Patient Appearance: Well Grooomed (on hospital gowns) Patient Orientation: Person, Place, Time and Situation Level of Consciousness: Awake Patient Behavior: Appropriate Mood Description: Calm Affect Description: Calm, Appropriate and Flat Patient Cognition Impaired: No Ability to Follow Directions: Good Speech Pattern: Clear and Delayed Memory Description: Intact Thought Process: Rumination Thought Content: positive for Preoccupation, negative for Logical, negative for Suicidal Ideation and negative for Homicidal Ideation Depressive Symptoms: Increased Fatigue Abnormal Motor Activity Signs and Symptoms: Psychomotor Retardation Diagnostics Vital Signs (24Hr): Vital Signs - 24 hr 02/25/21 18:00 02/26/21 06:00 Temperature 97.7 F 98.3 F Pulse Rate 76 80 Respiratory Rate 16 18 Blood Pressure 147/75 H 136/74 Pulse Oximetry 98 93 Body Mass Index 17.5 Labs Results: 02/25/21 06:35 02/25/21 06:35 Labs: Laboratory Results - last 48 hr 02/24/21 02/24/21 02/24/21 11:34 18:16 20:42 WBC RBC Hgb Hct MCV MCH MCHC RDW Plt Count MPV Immature Gran % (Auto) Neut % (Auto) Lymph % (Auto) [place] % (Auto) Eos % (Auto) Baso % (Auto) Lymph # (Auto) [place] # (Auto) Eos # (Auto) Baso # (Auto) Abs Immat Gran (auto) Absolute Neuts (auto) Absolute Nucleated RBC Nucleated RBC % (auto) Sodium Potassium Chloride Carbon Dioxide Anion Gap BUN Creatinine Estim Creat Clear Calc Estimated GFR POC Glucose 134 H 133 H 117 H Fasting Glucose Estimat Average Glucose Hemoglobin A1c % Calcium Total Bilirubin AST ALT Alkaline Phosphatase Total Protein Albumin 02/25/21 02/25/21 02/25/21 06:05 06:35 06:35 WBC 9.8 RBC 3.34 L Hgb 10.8 L Hct 32.6 L MCV 97.6 MCH 32.3 MCHC 33.1 RDW 15.1 Plt Count 206 D MPV 12.1 Immature Gran % (Auto) 0.5 H Neut % (Auto) 50.4 Lymph % (Auto) 33.7 [place] % (Auto) 9.9 Eos % (Auto) 4.7 H Baso % (Auto) 0.8 Lymph # (Auto) 3.3 [place] # (Auto) 1.0 Eos # (Auto) 0.5 H Baso # (Auto) 0.1 Abs Immat Gran (auto) 0.05 H Absolute Neuts (auto) 4.9 Absolute Nucleated RBC 0.000 Nucleated RBC % (auto) 0.0 Sodium 135 Potassium 4.8 Chloride 98 Carbon Dioxide 35 H Anion Gap 7 L BUN 23 H Creatinine 0.82 Estim Creat Clear Calc 52.4 Estimated GFR > 60 POC Glucose 75 Fasting Glucose 89 Estimat Average Glucose Hemoglobin A1c % Calcium 9.1 Total Bilirubin < 0.2 AST 26 ALT 34 Alkaline Phosphatase 110 D Total Protein 6.3 L Albumin 3.0 L 02/25/21 02/25/21 02/25/21 06:35 12:23 17:24 WBC RBC Hgb Hct MCV MCH MCHC RDW Plt Count MPV Immature Gran % (Auto) Neut % (Auto) Lymph % (Auto) [place] % (Auto) Eos % (Auto) Baso % (Auto) Lymph # (Auto) [place] # (Auto) Eos # (Auto) Baso # (Auto) Abs Immat Gran (auto) Absolute Neuts (auto) Absolute Nucleated RBC Nucleated RBC % (auto) Sodium Potassium Chloride Carbon Dioxide Anion Gap BUN Creatinine Estim Creat Clear Calc Estimated GFR POC Glucose 102 132 H Fasting Glucose Estimat Average Glucose 111 Hemoglobin A1c % 5.5 Calcium Total Bilirubin AST ALT Alkaline Phosphatase Total Protein Albumin 02/25/21 02/26/21 20:35 08:57 WBC RBC Hgb Hct MCV MCH MCHC RDW Plt Count MPV Immature Gran % (Auto) Neut % (Auto) Lymph % (Auto) [place] % (Auto) Eos % (Auto) Baso % (Auto) Lymph # (Auto) [place] # (Auto) Eos # (Auto) Baso # (Auto) Abs Immat Gran (auto) Absolute Neuts (auto) Absolute Nucleated RBC Nucleated RBC % (auto) Sodium Potassium Chloride Carbon Dioxide Anion Gap BUN Creatinine Estim Creat Clear Calc Estimated GFR POC Glucose 93 79 Fasting Glucose Estimat Average Glucose Hemoglobin A1c % Calcium Total Bilirubin AST ALT Alkaline Phosphatase Total Protein Albumin Imaging Radiology Impressions: ITS Impressions Modified Barium Swallow 01/07/21 14:15 IMPRESSION: Laryngeal penetration and occasional aspiration as described above. Please refer to speech pathology report for details. Chest X-Ray 01/10/21 09:11 IMPRESSION: Severe chronic interstitial lung disease. No evidence of acute superimposed pneumonitis. Modified Barium Swallow 02/10/21 12:56 IMPRESSION: Vallecular retention with laryngeal penetration. 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 No CT evidence of intracranial bleed. No skull fracture. Normal CT scan does not rule out the possibility of hyperacute infarct in the first 12 hours. If patient symptoms persist may consider correlation with MRI, which is more sensitive for early acute infarct. Medications Medications Current Medications Generic Name Dose Route Start Last Admin Trade Name Freq PRN Reason Stop Dose Admin Acetaminophen 650 mg 01/09/21 15:51 02/01/21 09:10 Acetaminophen 325 Mg Tablet G-TUBE 650 mg Q4H PRN Administration Pain, Mild (Pain Scale 1-3) Al Hydroxide/Mg Hydroxide 30 ml 01/08/21 15:46 02/11/21 17:51 Magnesium Hydrox/Alum Hydrox 30 Ml Oral.Susp G-TUBE 30 ml Q4H PRN Administration Dyspepsia Amphetamine/Dextroamphetamine 5 mg 02/25/21 08:00 02/26/21 09:03 Amphetamine Mixed Salts 10 Mg Tablet G-TUBE 5 mg BID@0800,1300 DOMINICK Administration Budesonide 2 puff 12/31/20 20:00 02/26/21 09:03 Budesonide 180 Mcg Aer.Pow.Ba INHALE 2 puff RBID DOMINICK Administration Clotrimazole 1 appl 01/06/21 21:00 02/25/21 21:38 Clotrimazole 1 % Cream 15 Gm Tube TOPICAL Not Given BID DOMINICK Protocol Famotidine 20 mg 01/09/21 09:00 02/26/21 09:03 Famotidine 20 Mg Tablet G-TUBE 20 mg DAILY DOMINICK Administration Fluoxetine HCl 7.5 mg 02/25/21 09:00 02/26/21 09:03 Fluoxetine Hcl Oral Solution 20 Mg/5 Ml Solution PO 7.5 mg DAILY DOMINICK Administration Hydrocortisone 2.5 mg 01/23/21 19:00 02/25/21 21:10 Hydrocortisone 10 Mg Tablet PO 2.5 mg DAILY@1900 DOMINICK Administration Hydrocortisone 5 mg 01/23/21 13:00 02/25/21 12:14 Hydrocortisone 10 Mg Tablet PO 5 mg DAILY@1300 DOMINICK Administration Hydrocortisone 10 mg 01/28/21 08:00 02/26/21 09:03 Hydrocortisone 10 Mg Tablet PO 10 mg DAILY@0800 DOMINICK Administration Loperamide HCl 2 mg 02/18/21 21:30 02/25/21 16:38 Loperamide Hcl Oral Liquid 2 Mg/15 Ml Liquid G-TUBE 2 mg Q6H PRN Administration Diarrhea Lorazepam 0.5 mg 02/24/21 10:07 02/25/21 16:44 Lorazepam 0.5 Mg Tablet PO 0.5 mg Q4H PRN Administration anxiety/restlessness Mirtazapine 7.5 mg 01/14/21 21:00 02/25/21 20:52 Mirtazapine 7.5 Mg Tablet G-TUBE 7.5 mg BEDTIME DOMINICK Administration Omeprazole 40 mg 01/08/21 16:30 02/26/21 09:03 Omeprazole 20 Mg/10 Ml Susp.Recon G-TUBE 40 mg BID@0630,1630 DOMINICK Administration Ondansetron HCl 4 mg 02/12/21 08:56 Ondansetron Hcl 4 Mg/2 Ml Vial IVPUSH ONCE PRN Nausea and Vomiting Thiamine HCl 100 mg 01/09/21 09:00 02/26/21 09:04 Thiamine Hcl 100 Mg Tablet G-TUBE 100 mg DAILY DOMINICK Administration Allergies Allergies Allergy/AdvReac Type Severity Reaction Status Date / Time Sulfa (Sulfonamide Allergy Unknown UNKNOWN Verified 12/01/20 09:47 Antibiotics) [SULFA (SULFONAMIDE ANTIBIOTICS)] zoster vaccine live Allergy Hives Verified 12/01/20 09:47 Assessment & Plan Assessment & Plan (1) Chronic respiratory failure: Qualifiers: Respiratory failure complication: hypoxia Qualified Code(s): J96.11 - Chronic respiratory failure with hypoxia Status: Acute Code(s): J96.10 - Chronic respiratory failure, unspecified whether with hypoxia or hypercapnia (2) Pulmonary fibrosis: Status: Acute Code(s): J84.10 - Pulmonary fibrosis, unspecified (3) Bronchiectasis: Status: Acute Code(s): J47.9 - Bronchiectasis, uncomplicated Assessment and Plan: Will plan a 6 minutes walk test to see address his oxygen needs with activity. The patient may be limited from a physical standpoint. Will try and see how much he can tolerate. Overnight oximetry on room air Continue Pulmicort inhaler twice a day Should have a short-acting beta agonist, albuterol available via nebulizer and also via inhaler. bipolar depression cont fluoxitine adderall monitor for si cont plan of care Greater than 50% of the session was spent on counseling and/or coordination of care Reason for contiued inpatient stay Substantial Risk for: inability to function, rapid decompensation and med/psych decompensation
[2021-02-26] MEDS: Clotrimazole 1 % Cream 15 GM TUBE 1 APPL TOPICAL (10:41)
[2021-02-26 13:24] LABS: Glucose, Whole Blood 132 mg/dL (60-115)
--- NOTE | 2021-02-26 13:26 | MHC.CLN ---
NUTRITION FOLLOW UP NO REPORTED CONCERNS WITH CURRENT BOLUS TUBE FEEDING. NO NEW WEIGHTS. LABS REVIEWED FROM 02/25 SHOWING BUN=23; Cr, Na, K WNL; A1c=5.5 GOOD. ALBUMIN WITH SMALL DECREASE: 02/25=3.0; 02/17=3.2. CONTINUE CURRENT NUTRITION INTERVENTIONS.
[2021-02-26] MEDS: LORazepam 0.5 MG TABLET PO (14:45)
[2021-02-26 16:55] LABS: Glucose, Whole Blood 93 mg/dL (60-115)
[2021-02-26 18:00] VITALS: BP 134/78; PULSE 78; TEMP 36.9; O2SAT 95
[2021-02-26] MEDS: Hydrocortisone 10 MG TABLET 2.5 MG PO (19:30)
[2021-02-26] MEDS: Mirtazapine 7.5 MG TABLET G-TUBE (22:25)
[2021-02-27 06:33] VITALS: BP 115/61; PULSE 80; RESP 18; TEMP 36.8; O2SAT 94
[2021-02-27 06:33] LABS: Glucose, Whole Blood 86 mg/dL (60-115)
[2021-02-27 09:14] VITALS: BP 127/78; PULSE 73; RESP 20; TEMP 36.8; O2SAT 94
[2021-02-27] MEDS: FLUoxetine HCl Oral Solution 20 MG/5 ML SOLUTION 7.5 MG PO (09:16)
[2021-02-27] MEDS: Budesonide 180 MCG AER.POW.BA 2 PUFF INHALE ×2 (09:17→20:44)
[2021-02-27] MEDS: Famotidine 20 MG TABLET G-TUBE (09:17)
[2021-02-27] MEDS: Amphetamine Mixed Salts 10 MG TABLET 5 MG G-TUBE ×2 (09:17→14:00)
[2021-02-27] MEDS: Hydrocortisone 10 MG TABLET PO (09:17)
[2021-02-27] MEDS: Thiamine HCL 100 MG TABLET G-TUBE (09:18)
[2021-02-27] MEDS: Clotrimazole 1 % Cream 15 GM TUBE 1 APPL TOPICAL (09:18)
--- NOTE | 2021-02-27 10:27 | HO.PSYCHPN ---
Subjective Subjective Date of Service: 02/27/21 Reason For Visit: severe depression Subjective Notes: Conditional Voluntary Healthcare Proxy: Yes Guardianship: No Medical Problems Affecting Mental Status: Yes Interim History: Patient continues to be flat limited functioning pulmonary consult appreciated updrafts ordered as needed encourage out of bed Mental Status Exam Mental Status Exam Patient Appearance: Well Grooomed (on hospital gowns) Patient Orientation: Person, Place, Time and Situation Level of Consciousness: Awake Patient Behavior: Appropriate Mood Description: Calm Affect Description: Calm, Appropriate and Flat Patient Cognition Impaired: No Ability to Follow Directions: Good Speech Pattern: Clear and Delayed Memory Description: Intact Thought Process: Rumination Thought Content: positive for Preoccupation, negative for Logical, negative for Suicidal Ideation and negative for Homicidal Ideation Depressive Symptoms: Increased Fatigue Abnormal Motor Activity Signs and Symptoms: Psychomotor Retardation Diagnostics Vital Signs (24Hr): Vital Signs - 24 hr 02/26/21 18:00 02/27/21 06:33 02/27/21 09:14 Temperature 98.4 F 98.3 F 98.2 F Pulse Rate 78 80 73 Respiratory Rate 18 20 Blood Pressure 134/78 115/61 127/78 Pulse Oximetry 95 94 94 Body Mass Index 17.5 Labs Results: 02/25/21 06:35 02/25/21 06:35 Labs: Laboratory Results - last 48 hr 02/25/21 02/25/21 02/25/21 12:23 17:24 20:35 POC Glucose 102 132 H 93 02/26/21 02/26/21 02/26/21 08:57 12:06 16:40 POC Glucose 79 132 H 93 02/27/21 06:25 POC Glucose 86 Imaging Radiology Impressions: ITS Impressions Modified Barium Swallow 01/07/21 14:15 IMPRESSION: Laryngeal penetration and occasional aspiration as described above. Please refer to speech pathology report for details. Chest X-Ray 01/10/21 09:11 IMPRESSION: Severe chronic interstitial lung disease. No evidence of acute superimposed pneumonitis. Modified Barium Swallow 02/10/21 12:56 IMPRESSION: Vallecular retention with laryngeal penetration. 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 No CT evidence of intracranial bleed. No skull fracture. Normal CT scan does not rule out the possibility of hyperacute infarct in the first 12 hours. If patient symptoms persist may consider correlation with MRI, which is more sensitive for early acute infarct. Medications Medications Current Medications Generic Name Dose Route Start Last Admin Trade Name Joaquín PRN Reason Stop Dose Admin Acetaminophen 650 mg 01/09/21 15:51 02/01/21 09:10 Acetaminophen 325 Mg Tablet G-TUBE 650 mg Q4H PRN Administration Pain, Mild (Pain Scale 1-3) Al Hydroxide/Mg Hydroxide 30 ml 01/08/21 15:46 02/11/21 17:51 Magnesium Hydrox/Alum Hydrox 30 Ml Oral.Susp G-TUBE 30 ml Q4H PRN Administration Dyspepsia Amphetamine/Dextroamphetamine 5 mg 02/25/21 08:00 02/27/21 09:17 Amphetamine Mixed Salts 10 Mg Tablet G-TUBE 5 mg BID@0800,1300 DOMINICK Administration Budesonide 2 puff 12/31/20 20:00 02/27/21 09:17 Budesonide 180 Mcg Aer.Pow.Ba INHALE 2 puff RBID DOMINICK Administration Clotrimazole 1 appl 01/06/21 21:00 02/27/21 09:18 Clotrimazole 1 % Cream 15 Gm Tube TOPICAL 1 appl BID DOMINICK Administration Protocol Famotidine 20 mg 01/09/21 09:00 02/27/21 09:17 Famotidine 20 Mg Tablet G-TUBE 20 mg DAILY DOMINICK Administration Fluoxetine HCl 7.5 mg 02/25/21 09:00 02/27/21 09:16 Fluoxetine Hcl Oral Solution 20 Mg/5 Ml Solution PO 7.5 mg DAILY DOMINICK Administration Hydrocortisone 2.5 mg 01/23/21 19:00 02/26/21 19:30 Hydrocortisone 10 Mg Tablet PO 2.5 mg DAILY@1900 DOMINICK Administration Hydrocortisone 5 mg 01/23/21 13:00 02/25/21 12:14 Hydrocortisone 10 Mg Tablet PO 5 mg DAILY@1300 DOMINICK Administration Hydrocortisone 10 mg 01/28/21 08:00 02/27/21 09:17 Hydrocortisone 10 Mg Tablet PO 10 mg DAILY@0800 DOMINICK Administration Loperamide HCl 2 mg 02/18/21 21:30 02/25/21 16:38 Loperamide Hcl Oral Liquid 2 Mg/15 Ml Liquid G-TUBE 2 mg Q6H PRN Administration Diarrhea Lorazepam 0.5 mg 02/24/21 10:07 02/26/21 14:45 Lorazepam 0.5 Mg Tablet PO 0.5 mg Q4H PRN Administration anxiety/restlessness Mirtazapine 7.5 mg 01/14/21 21:00 02/26/21 22:25 Mirtazapine 7.5 Mg Tablet G-TUBE 7.5 mg BEDTIME DOMINICK Administration Omeprazole 40 mg 01/08/21 16:30 02/27/21 06:13 Omeprazole 20 Mg/10 Ml Susp.Recon G-TUBE 40 mg BID@0630,1630 DOMINICK Administration Ondansetron HCl 4 mg 02/12/21 08:56 Ondansetron Hcl 4 Mg/2 Ml Vial IVPUSH ONCE PRN Nausea and Vomiting Thiamine HCl 100 mg 01/09/21 09:00 02/27/21 09:18 Thiamine Hcl 100 Mg Tablet G-TUBE 100 mg DAILY DOMINICK Administration Allergies Allergies Allergy/AdvReac Type Severity Reaction Status Date / Time Sulfa (Sulfonamide Allergy Unknown UNKNOWN Verified 12/01/20 09:47 Antibiotics) [SULFA (SULFONAMIDE ANTIBIOTICS)] zoster vaccine live Allergy Hives Verified 12/01/20 09:47 Assessment & Plan Assessment & Plan (1) Chronic respiratory failure: Qualifiers: Respiratory failure complication: hypoxia Qualified Code(s): J96.11 - Chronic respiratory failure with hypoxia Status: Acute Code(s): J96.10 - Chronic respiratory failure, unspecified whether with hypoxia or hypercapnia (2) Pulmonary fibrosis: Status: Acute Code(s): J84.10 - Pulmonary fibrosis, unspecified (3) Bronchiectasis: Status: Acute Code(s): J47.9 - Bronchiectasis, uncomplicated Assessment and Plan: Will plan a 6 minutes walk test to see address his oxygen needs with activity. The patient may be limited from a physical standpoint. Will try and see how much he can tolerate. Overnight oximetry on room air Continue Pulmicort inhaler twice a day Should have a short-acting beta agonist, albuterol available via nebulizer and also via inhaler. bipolar depression cont fluoxitine adderall monitor for si cont plan of care encourage increase walking discharge planning which is complicated Greater than 50% of the session was spent on counseling and/or coordination of care Reason for contiued inpatient stay Substantial Risk for: rapid decompensation and med/psych decompensation
[2021-02-27 11:40] LABS: Glucose, Whole Blood 155 mg/dL (60-115)
[2021-02-27] MEDS: Hydrocortisone 10 MG TABLET 5 MG PO (14:01)
[2021-02-27 16:27] VITALS: BMI 18.2
[2021-02-27] MEDS: Hydrocortisone 10 MG TABLET 2.5 MG PO (17:40)
[2021-02-27 18:00] VITALS: BP 123/62; PULSE 84; RESP 18; TEMP 37; O2SAT 93
[2021-02-27 18:27] LABS: Glucose, Whole Blood 151 mg/dL (60-115)
--- NOTE | 2021-02-27 19:04 | PC.NURSE ---
Patient and , Pati, met with this radio news writer to discuss outstanding questions they have surrounding Patient's upcoming discharge. Both Selvin and Pati have been participating in G-Tube care including medication administration and Feedings. Both Selvin and Pati have a difficult time manipulating the plugs of the G-Tube. They are unable to open the plugs without assistance at this time. They question whether there are other Plug/End options available that are easier to use. Pati reports they do not have a walker at home at this time; A walker will be needed for safe ambulation at home. Both are wondering when Selvin will be seen by the ENT consult specialist. The nursing team is hoping Selvin can be seen by Podiatry before returning home as his toenails are growing over the nail bed into his skin. Pati has questions about where the feeding formula will come once they are at home, Prescription formula? They would like to get a Wedge Pillow for the bed at home, Is this a prescription item? What will the Medication and Feeding schedule be?
[2021-02-27 20:17] VITALS: PULSE 83; O2SAT 95
[2021-02-27] MEDS: Albuterol/Iprat 2.5/0.5MG 3 ML AMPUL.NEB INHALE (20:17)
[2021-02-27] MEDS: Mirtazapine 7.5 MG TABLET G-TUBE (20:44)
[2021-02-27 22:55] LABS: Glucose, Whole Blood 130 mg/dL (60-115)
[2021-02-28 06:00] VITALS: BP 109/55; PULSE 76; RESP 18; TEMP 36.8; O2SAT 93
[2021-02-28 07:56] LABS: Glucose, Whole Blood 85 mg/dL (60-115)
[2021-02-28] MEDS: Amphetamine Mixed Salts 10 MG TABLET 5 MG G-TUBE ×2 (08:06→14:00)
[2021-02-28] MEDS: Thiamine HCL 100 MG TABLET G-TUBE (08:07)
[2021-02-28] MEDS: FLUoxetine HCl Oral Solution 20 MG/5 ML SOLUTION 7.5 MG PO (08:08)
[2021-02-28] MEDS: Hydrocortisone 10 MG TABLET PO (08:08)
[2021-02-28] MEDS: Famotidine 20 MG TABLET G-TUBE (08:08)
[2021-02-28] MEDS: Budesonide 180 MCG AER.POW.BA 2 PUFF INHALE ×2 (08:31→20:38)
[2021-02-28] MEDS: Albuterol/Iprat 2.5/0.5MG 3 ML AMPUL.NEB INHALE (08:42)
[2021-02-28 08:44] VITALS: PULSE 78; O2SAT 98
[2021-02-28] MEDS: Clotrimazole 1 % Cream 15 GM TUBE 1 APPL TOPICAL ×2 (11:16→20:35)
[2021-02-28] MEDS: LORazepam 0.5 MG TABLET PO (11:21)
[2021-02-28 11:34] LABS: Glucose, Whole Blood 136 mg/dL (60-115)
[2021-02-28] MEDS: Hydrocortisone 10 MG TABLET 5 MG PO (14:00)
[2021-02-28 16:47] LABS: Glucose, Whole Blood 126 mg/dL (60-115)
[2021-02-28 18:00] VITALS: BP 121/69; PULSE 81; TEMP 36.7; O2SAT 95
[2021-02-28] MEDS: Mirtazapine 7.5 MG TABLET G-TUBE (20:35)
[2021-02-28] MEDS: Hydrocortisone 10 MG TABLET 2.5 MG PO (20:35)
--- NOTE | 2021-02-28 21:59 | HO.PSYCHPN ---
Subjective Subjective Date of Service: 02/28/21 Reason For Visit: severe depression Subjective Notes: Conditional Voluntary Interim History: patient flattened dysphoric agreeable to discharge planning home remains on PEG feedings Medication Compliance: Yes Mental Status Exam Mental Status Exam Patient Appearance: Well Grooomed (on hospital gowns) Patient Orientation: Person, Place, Time and Situation Level of Consciousness: Awake Patient Behavior: Appropriate Mood Description: Calm Affect Description: Calm, Appropriate and Flat Patient Cognition Impaired: No Ability to Follow Directions: Good Speech Pattern: Clear and Delayed Memory Description: Intact Thought Process: Rumination Thought Content: positive for Preoccupation, negative for Logical, negative for Suicidal Ideation and negative for Homicidal Ideation Depressive Symptoms: Increased Fatigue Abnormal Motor Activity Signs and Symptoms: Psychomotor Retardation Diagnostics Vital Signs (24Hr): Vital Signs - 24 hr 02/28/21 06:00 02/28/21 08:44 02/28/21 18:00 Temperature 98.2 F 98.0 F Pulse Rate 76 78 81 Respiratory Rate 18 Blood Pressure 109/55 L 121/69 Pulse Oximetry 93 95 Body Mass Index 18.2 Labs Results: 02/25/21 06:35 02/25/21 06:35 Labs: Laboratory Results - last 48 hr 02/27/21 02/27/21 02/27/21 06:25 11:36 17:38 POC Glucose 86 155 H 151 H 02/27/21 02/28/21 02/28/21 22:44 07:50 11:27 POC Glucose 130 H 85 136 H 02/28/21 16:43 POC Glucose 126 H Imaging Radiology Impressions: ITS Impressions Modified Barium Swallow 01/07/21 14:15 IMPRESSION: Laryngeal penetration and occasional aspiration as described above. Please refer to speech pathology report for details. Chest X-Ray 01/10/21 09:11 IMPRESSION: Severe chronic interstitial lung disease. No evidence of acute superimposed pneumonitis. Modified Barium Swallow 02/10/21 12:56 IMPRESSION: Vallecular retention with laryngeal penetration. 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 No CT evidence of intracranial bleed. No skull fracture. Normal CT scan does not rule out the possibility of hyperacute infarct in the first 12 hours. If patient symptoms persist may consider correlation with MRI, which is more sensitive for early acute infarct. Medications Medications Current Medications Generic Name Dose Route Start Last Admin Trade Name Joaquín PRN Reason Stop Dose Admin Acetaminophen 650 mg 01/09/21 15:51 02/01/21 09:10 Acetaminophen 325 Mg Tablet G-TUBE 650 mg Q4H PRN Administration Pain, Mild (Pain Scale 1-3) Al Hydroxide/Mg Hydroxide 30 ml 01/08/21 15:46 02/11/21 17:51 Magnesium Hydrox/Alum Hydrox 30 Ml Oral.Susp G-TUBE 30 ml Q4H PRN Administration Dyspepsia Albuterol Sulfate 2 puff 02/27/21 18:30 Albuterol Sulfate 90 Mcg 8 Gm Inhaler INHALE Q4H PRN Shortness of Breath Albuterol/Ipratropium 3 ml 02/27/21 20:00 02/28/21 20:25 Albuterol/Iprat 2.5/0.5mg 3 Ml Ampul.Neb INHALE Not Given RQ6H WHILE AWAKE DOMINICK Amphetamine/Dextroamphetamine 5 mg 02/25/21 08:00 02/28/21 14:00 Amphetamine Mixed Salts 10 Mg Tablet G-TUBE 5 mg BID@0800,1300 DOMINICK Administration Budesonide 2 puff 12/31/20 20:00 02/28/21 20:38 Budesonide 180 Mcg Aer.Pow.Ba INHALE 2 puff RBID DOMINICK Administration Clotrimazole 1 appl 01/06/21 21:00 02/28/21 11:16 Clotrimazole 1 % Cream 15 Gm Tube TOPICAL 1 appl BID DOMINICK Administration Protocol Famotidine 20 mg 01/09/21 09:00 02/28/21 08:08 Famotidine 20 Mg Tablet G-TUBE 20 mg DAILY DOMINICK Administration Fluoxetine HCl 7.5 mg 02/25/21 09:00 02/28/21 08:08 Fluoxetine Hcl Oral Solution 20 Mg/5 Ml Solution PO 7.5 mg DAILY DOMINICK Administration Hydrocortisone 2.5 mg 01/23/21 19:00 02/28/21 20:35 Hydrocortisone 10 Mg Tablet PO 2.5 mg DAILY@1900 DOMINICK Administration Hydrocortisone 5 mg 01/23/21 13:00 02/28/21 14:00 Hydrocortisone 10 Mg Tablet PO 5 mg DAILY@1300 DOMINICK Administration Hydrocortisone 10 mg 01/28/21 08:00 02/28/21 08:08 Hydrocortisone 10 Mg Tablet PO 10 mg DAILY@0800 DOMINICK Administration Loperamide HCl 2 mg 02/18/21 21:30 02/25/21 16:38 Loperamide Hcl Oral Liquid 2 Mg/15 Ml Liquid G-TUBE 2 mg Q6H PRN Administration Diarrhea Lorazepam 0.5 mg 02/24/21 10:07 02/28/21 11:21 Lorazepam 0.5 Mg Tablet PO 0.5 mg Q4H PRN Administration anxiety/restlessness Mirtazapine 7.5 mg 01/14/21 21:00 02/28/21 20:35 Mirtazapine 7.5 Mg Tablet G-TUBE 7.5 mg BEDTIME DOMINICK Administration Omeprazole 40 mg 01/08/21 16:30 02/28/21 17:05 Omeprazole 20 Mg/10 Ml Susp.Recon G-TUBE 40 mg BID@0630,1630 DOMINICK Administration Ondansetron HCl 4 mg 02/27/21 11:43 02/27/21 11:51 Ondansetron Odt 4 Mg Tab.Rapdis TRANSLINGU 4 mg BID PRN Administration Nausea and Vomiting Thiamine HCl 100 mg 01/09/21 09:00 02/28/21 08:07 Thiamine Hcl 100 Mg Tablet G-TUBE 100 mg DAILY DOMINICK Administration Allergies Allergies Allergy/AdvReac Type Severity Reaction Status Date / Time Sulfa (Sulfonamide Allergy Unknown UNKNOWN Verified 12/01/20 09:47 Antibiotics) [SULFA (SULFONAMIDE ANTIBIOTICS)] zoster vaccine live Allergy Hives Verified 12/01/20 09:47 Assessment & Plan Assessment & Plan (1) Chronic respiratory failure: Qualifiers: Respiratory failure complication: hypoxia Qualified Code(s): J96.11 - Chronic respiratory failure with hypoxia Status: Acute Code(s): J96.10 - Chronic respiratory failure, unspecified whether with hypoxia or hypercapnia (2) Pulmonary fibrosis: Status: Acute Code(s): J84.10 - Pulmonary fibrosis, unspecified (3) Bronchiectasis: Status: Acute Code(s): J47.9 - Bronchiectasis, uncomplicated Assessment and Plan: Will plan a 6 minutes walk test to see address his oxygen needs with activity. The patient may be limited from a physical standpoint. Will try and see how much he can tolerate. Overnight oximetry on room air Continue Pulmicort inhaler twice a day Should have a short-acting beta agonist, albuterol available via nebulizer and also via inhaler. bipolar depression cont fluoxitine adderall monitor for si cont plan of care encourage increase walking discharge planning which is complicated Will need to coordinate respiratory medical follow-up psychiatric follow-up and PEG feedings Greater than 50% of the session was spent on counseling and/or coordination of care Reason for contiued inpatient stay Substantial Risk for: inability to function and rapid decompensation
[2021-02-28 22:18] LABS: Glucose, Whole Blood 160 mg/dL (60-115)
[2021-03-01 06:02] VITALS: BP 128/72; PULSE 79; RESP 20; TEMP 36.7; O2SAT 94
[2021-03-01 06:28] LABS: Glucose, Whole Blood 91 mg/dL (60-115)
--- NOTE | 2021-03-01 06:35 | PC.NURSE ---
Patient reports No BM for 4-5 days. Positive Bowel Sounds in all 4 Quadrants upon auscultation.
[2021-03-01] MEDS: FLUoxetine HCl Oral Solution 20 MG/5 ML SOLUTION 7.5 MG PO (07:47)
[2021-03-01] MEDS: Thiamine HCL 100 MG TABLET G-TUBE (07:48)
[2021-03-01] MEDS: Famotidine 20 MG TABLET G-TUBE (07:48)
[2021-03-01] MEDS: Hydrocortisone 10 MG TABLET PO (07:48)
[2021-03-01] MEDS: Amphetamine Mixed Salts 10 MG TABLET 5 MG G-TUBE ×2 (07:49→12:48)
[2021-03-01] MEDS: Budesonide 180 MCG AER.POW.BA 2 PUFF INHALE ×2 (07:50→20:15)
[2021-03-01] MEDS: Albuterol/Iprat 2.5/0.5MG 3 ML AMPUL.NEB INHALE (07:50)
--- NOTE | 2021-03-01 10:47 | HO.PSYCHPN ---
Subjective Subjective Date of Service: 03/01/21 Reason For Visit: severe depression Interim History: The patient remains dysphoric, mostly on his room due to his general medical conditions. He is able to use well the PEG safely. Medication Compliance: Yes Side effects from medications: No Mental Status Exam Mental Status Exam Patient Appearance: Well Grooomed Patient Orientation: Person, Place and Time Level of Consciousness: Awake Patient Behavior: Cooperative Mood Description: Depressed Affect Description: Constricted Patient Cognition Impaired: No Ability to Follow Directions: Good Speech Pattern: Clear Memory Description: Intact Hallucinations: None Thought Process: Goal Oriented and Linear Thought Content: positive for Circumstantial and positive for Poverty of Content Depressive Symptoms: Increased Anxiety and Significant Weight Loss Judgement: Fair Diagnostics Vital Signs (24Hr): Vital Signs - 24 hr 02/28/21 18:00 03/01/21 06:02 Temperature 98.0 F 98.0 F Pulse Rate 81 79 Respiratory Rate 20 Blood Pressure 121/69 128/72 Pulse Oximetry 95 94 Body Mass Index 18.2 Labs Results: 02/25/21 06:35 02/25/21 06:35 Labs: Laboratory Results - last 48 hr 02/27/21 02/27/21 02/27/21 11:36 17:38 22:44 POC Glucose 155 H 151 H 130 H 02/28/21 02/28/21 02/28/21 07:50 11:27 16:43 POC Glucose 85 136 H 126 H 02/28/21 03/01/21 22:12 05:59 POC Glucose 160 H 91 Imaging Radiology Impressions: ITS Impressions Modified Barium Swallow 01/07/21 14:15 IMPRESSION: Laryngeal penetration and occasional aspiration as described above. Please refer to speech pathology report for details. Chest X-Ray 01/10/21 09:11 IMPRESSION: Severe chronic interstitial lung disease. No evidence of acute superimposed pneumonitis. Modified Barium Swallow 02/10/21 12:56 IMPRESSION: Vallecular retention with laryngeal penetration. 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 No CT evidence of intracranial bleed. No skull fracture. Normal CT scan does not rule out the possibility of hyperacute infarct in the first 12 hours. If patient symptoms persist may consider correlation with MRI, which is more sensitive for early acute infarct. Medications Medications Current Medications Generic Name Dose Route Start Last Admin Trade Name Freq PRN Reason Stop Dose Admin Acetaminophen 650 mg 01/09/21 15:51 02/01/21 09:10 Acetaminophen 325 Mg Tablet G-TUBE 650 mg Q4H PRN Administration Pain, Mild (Pain Scale 1-3) Al Hydroxide/Mg Hydroxide 30 ml 01/08/21 15:46 02/11/21 17:51 Magnesium Hydrox/Alum Hydrox 30 Ml Oral.Susp G-TUBE 30 ml Q4H PRN Administration Dyspepsia Albuterol Sulfate 2 puff 02/27/21 18:30 Albuterol Sulfate 90 Mcg 8 Gm Inhaler INHALE Q4H PRN Shortness of Breath Albuterol/Ipratropium 3 ml 02/27/21 20:00 03/01/21 07:50 Albuterol/Iprat 2.5/0.5mg 3 Ml Ampul.Neb INHALE 3 ml RQ6H WHILE AWAKE DOMINICK Administration Amphetamine/Dextroamphetamine 5 mg 02/25/21 08:00 03/01/21 07:49 Amphetamine Mixed Salts 10 Mg Tablet G-TUBE 5 mg BID@0800,1300 DOMINICK Administration Budesonide 2 puff 12/31/20 20:00 03/01/21 07:50 Budesonide 180 Mcg Aer.Pow.Ba INHALE 2 puff RBID DOMINICK Administration Clotrimazole 1 appl 01/06/21 21:00 02/28/21 20:35 Clotrimazole 1 % Cream 15 Gm Tube TOPICAL 1 appl BID DOMINICK Administration Protocol Famotidine 20 mg 01/09/21 09:00 03/01/21 07:48 Famotidine 20 Mg Tablet G-TUBE 20 mg DAILY DOMINICK Administration Fluoxetine HCl 7.5 mg 02/25/21 09:00 03/01/21 07:47 Fluoxetine Hcl Oral Solution 20 Mg/5 Ml Solution PO 7.5 mg DAILY DOMINICK Administration Hydrocortisone 2.5 mg 01/23/21 19:00 02/28/21 20:35 Hydrocortisone 10 Mg Tablet PO 2.5 mg DAILY@1900 DOMINICK Administration Hydrocortisone 5 mg 01/23/21 13:00 02/28/21 14:00 Hydrocortisone 10 Mg Tablet PO 5 mg DAILY@1300 DOMINICK Administration Hydrocortisone 10 mg 01/28/21 08:00 03/01/21 07:48 Hydrocortisone 10 Mg Tablet PO 10 mg DAILY@0800 DOMINICK Administration Loperamide HCl 2 mg 02/18/21 21:30 02/25/21 16:38 Loperamide Hcl Oral Liquid 2 Mg/15 Ml Liquid G-TUBE 2 mg Q6H PRN Administration Diarrhea Mirtazapine 7.5 mg 01/14/21 21:00 02/28/21 20:35 Mirtazapine 7.5 Mg Tablet G-TUBE 7.5 mg BEDTIME DOMINICK Administration Omeprazole 40 mg 01/08/21 16:30 03/01/21 05:51 Omeprazole 20 Mg/10 Ml Susp.Recon G-TUBE 40 mg BID@0630,1630 DOMINICK Administration Ondansetron HCl 4 mg 02/27/21 11:43 02/27/21 11:51 Ondansetron Odt 4 Mg Tab.Rapdis TRANSLINGU 4 mg BID PRN Administration Nausea and Vomiting Thiamine HCl 100 mg 01/09/21 09:00 03/01/21 07:48 Thiamine Hcl 100 Mg Tablet G-TUBE 100 mg DAILY DOMINICK Administration Allergies Allergies Allergy/AdvReac Type Severity Reaction Status Date / Time Sulfa (Sulfonamide Allergy Unknown UNKNOWN Verified 12/01/20 09:47 Antibiotics) [SULFA (SULFONAMIDE ANTIBIOTICS)] zoster vaccine live Allergy Hives Verified 12/01/20 09:47 Assessment & Plan Assessment & Plan (1) Chronic respiratory failure: Qualifiers: Respiratory failure complication: hypoxia Qualified Code(s): J96.11 - Chronic respiratory failure with hypoxia Status: Acute Code(s): J96.10 - Chronic respiratory failure, unspecified whether with hypoxia or hypercapnia (2) Pulmonary fibrosis: Status: Acute Code(s): J84.10 - Pulmonary fibrosis, unspecified (3) Bronchiectasis: Status: Acute Code(s): J47.9 - Bronchiectasis, uncomplicated Assessment and Plan: Will plan a 6 minutes walk test to see address his oxygen needs with activity. The patient may be limited from a physical standpoint. Will try and see how much he can tolerate. Overnight oximetry on room air Continue Pulmicort inhaler twice a day Should have a short-acting beta agonist, albuterol available via nebulizer and also via inhaler. bipolar depression cont fluoxitine adderall monitor for si cont plan of care encourage increase walking discharge planning which is complicated Will need to coordinate respiratory medical follow-up psychiatric follow-up and PEG feedings Greater than 50% of the session was spent on counseling and/or coordination of care Reason for contiued inpatient stay Substantial Risk for: inability to function, rapid decompensation and med/psych decompensation
[2021-03-01] MEDS: Clotrimazole 1 % Cream 15 GM TUBE 1 APPL TOPICAL ×2 (10:55→20:15)
--- NOTE | 2021-03-01 11:36 | MHC.CLN ---
NUTRITION CONSULT CONSULT DUE TO PENDING DISCHARGE TO HOME WITH BOLUS TUBE FEEDING. CONTACTED HOME TUBE FEEDING PROVIDER [facility] VIA EMAIL ALERTING OF CURRENT BOLUS TUBE FEEDING OF [place] 1.5, 240 CC, FIVE TIMES DAILY. REVIEW OF WEIGHTS SHOWS FAVORABLE SIGNIFICANT WEIGHT GAIN X 30 DAYS. WEIGHT HISTORY: 02/27/21=52.9 KG (STANDING); 01/28/21=49.5 KG (STANDING) WITH WEIGHT GAIN X 30 DAYS=+3.5 KG, 7.1%
[2021-03-01] MEDS: Hydrocortisone 10 MG TABLET 5 MG PO (12:48)
[2021-03-01 18:00] VITALS: BP 124/77; PULSE 90; RESP 18; TEMP 36.4; O2SAT 98
[2021-03-01] MEDS: Hydrocortisone 10 MG TABLET 2.5 MG PO (19:43)
[2021-03-01] MEDS: Mirtazapine 7.5 MG TABLET G-TUBE (20:15)
[2021-03-02 06:00] VITALS: BP 119/80; PULSE 80; RESP 18; TEMP 36.8; O2SAT 94
[2021-03-02 06:49] LABS: Glucose, Whole Blood 110 mg/dL (60-115)
[2021-03-02] MEDS: Thiamine HCL 100 MG TABLET G-TUBE (08:13)
[2021-03-02] MEDS: Amphetamine Mixed Salts 10 MG TABLET 5 MG G-TUBE ×2 (08:13→13:10)
[2021-03-02] MEDS: Budesonide 180 MCG AER.POW.BA 2 PUFF INHALE ×2 (08:13→20:27)
[2021-03-02] MEDS: Famotidine 20 MG TABLET G-TUBE (08:13)
[2021-03-02] MEDS: FLUoxetine HCl Oral Solution 20 MG/5 ML SOLUTION 7.5 MG PO (08:13)
[2021-03-02] MEDS: Hydrocortisone 10 MG TABLET PO ×2 (08:13→17:16)
[2021-03-02] MEDS: Clotrimazole 1 % Cream 15 GM TUBE 1 APPL TOPICAL (08:14)
[2021-03-02 08:54] VITALS: BP 138/74; PULSE 80; RESP 20; TEMP 36.4; O2SAT 97
[2021-03-02] MEDS: LORazepam 0.5 MG TABLET PO (12:06)
[2021-03-02] MEDS: Hydrocortisone 10 MG TABLET 5 MG PO (13:10)
[2021-03-02 13:26] LABS: Glucose, Whole Blood 135 mg/dL (60-115)
[2021-03-02 14:10] VITALS: PULSE 113; PULSE 91; O2SAT 91; O2SAT 93
[2021-03-02 17:02] LABS: Glucose, Whole Blood 145 mg/dL (60-115)
[2021-03-02] MEDS: Loperamide HCl Oral Liquid 2 MG/15 ML LIQUID G-TUBE (17:16)
[2021-03-02] MEDS: Hydrocortisone 10 MG TABLET 2.5 MG PO (17:16)
[2021-03-02 18:05] VITALS: BP 129/77; PULSE 75; RESP 18; TEMP 36.9; O2SAT 94
--- NOTE | 2021-03-02 18:43 | PC.NURSE ---
Referral faxed to [phone] '[facility]' for Enteral feeding Formula; Referral form in Chart. Clinical Data Programmer: Litzy [phone]. Follow up phone call made, left message requesting start date for delivery. These feedings will be delivered to their home. Dr. Chowdhury gave Selvin's , Pait, a hand written prescription for a Walker. Respiratory team saw Selvin today, he's ordered 2L O2 with exertion. Resp. Team brought in an O2 tank for him to go home with - In Back Workroom with his name on it. Respiratory team to fax Home O2 referral to [facility]. Still in process of trying to find out if G-Tube Ends can be changed to an easier set-up for Selvin and Pati to use. Discharge paperwork will need to be faxed to [facility] [phone] the day of discharge so they can start next day. PCP - Mary Cyr [phone] was contacted for a follow-up appointment post discharge; awaiting call back with date and time. Employee Service Officer - Juan Yee M.D. [phone] was contacted for a follow-up appointment post discharge; awaiting call back with date and time.
[2021-03-02 20:47] LABS: Glucose, Whole Blood 153 mg/dL (60-115)
[2021-03-02] MEDS: Mirtazapine 7.5 MG TABLET G-TUBE (21:29)
--- NOTE | 2021-03-02 22:33 | HO.PSYCHPN ---
Subjective Subjective Date of Service: 03/02/21 Reason For Visit: severe depression Subjective Notes: Conditional Voluntary Healthcare Proxy: Yes Guardianship: No Interim History: Patient flat but feeling okay for discharge tomorrow. Referred for oxygen and PEG feedings case reviewed with respiratory and with Dr. Lopez patient alert less depressed after course of ECT discussed options of outpatient ECT Medication Compliance: Yes Side effects from medications: No Attending Groups: No Mental Status Exam Mental Status Exam Patient Appearance: Well Grooomed Patient Orientation: Person, Place and Time Level of Consciousness: Awake Patient Behavior: Cooperative Mood Description: Depressed Affect Description: Constricted Patient Cognition Impaired: No Ability to Follow Directions: Good Speech Pattern: Clear Memory Description: Intact Hallucinations: None Thought Process: Goal Oriented and Linear Thought Content: positive for Circumstantial and positive for Poverty of Content Depressive Symptoms: Increased Anxiety and Significant Weight Loss Judgement: Fair Diagnostics Vital Signs (24Hr): Vital Signs - 24 hr 03/02/21 06:00 03/02/21 08:54 03/02/21 18:05 Temperature 98.2 F 97.6 F 98.5 F Pulse Rate 80 80 75 Respiratory Rate 18 20 18 Blood Pressure 119/80 138/74 129/77 Pulse Oximetry 94 97 94 Body Mass Index 18.2 Labs Results: 02/25/21 06:35 02/25/21 06:35 Labs: Laboratory Results - last 48 hr 03/01/21 03/02/21 03/02/21 05:59 06:34 13:13 POC Glucose 91 110 135 H 03/02/21 03/02/21 16:41 20:43 POC Glucose 145 H 153 H Imaging Radiology Impressions: ITS Impressions Modified Barium Swallow 01/07/21 14:15 IMPRESSION: Laryngeal penetration and occasional aspiration as described above. Please refer to speech pathology report for details. Chest X-Ray 01/10/21 09:11 IMPRESSION: Severe chronic interstitial lung disease. No evidence of acute superimposed pneumonitis. Modified Barium Swallow 02/10/21 12:56 IMPRESSION: Vallecular retention with laryngeal penetration. 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 No CT evidence of intracranial bleed. No skull fracture. Normal CT scan does not rule out the possibility of hyperacute infarct in the first 12 hours. If patient symptoms persist may consider correlation with MRI, which is more sensitive for early acute infarct. Medications Medications Current Medications Generic Name Dose Route Start Last Admin Trade Name Frececelia PRN Reason Stop Dose Admin Acetaminophen 650 mg 01/09/21 15:51 02/01/21 09:10 Acetaminophen 325 Mg Tablet G-TUBE 650 mg Q4H PRN Administration Pain, Mild (Pain Scale 1-3) Al Hydroxide/Mg Hydroxide 30 ml 01/08/21 15:46 02/11/21 17:51 Magnesium Hydrox/Alum Hydrox 30 Ml Oral.Susp G-TUBE 30 ml Q4H PRN Administration Dyspepsia Albuterol Sulfate 2 puff 02/27/21 18:30 Albuterol Sulfate 90 Mcg 8 Gm Inhaler INHALE Q4H PRN Shortness of Breath Albuterol/Ipratropium 3 ml 02/27/21 20:00 03/02/21 20:33 Albuterol/Iprat 2.5/0.5mg 3 Ml Ampul.Neb INHALE Not Given RQ6H WHILE AWAKE [facility] Amphetamine/Dextroamphetamine 5 mg 02/25/21 08:00 03/02/21 13:10 Amphetamine Mixed Salts 10 Mg Tablet G-TUBE 5 mg BID@0800,1300 [facility] Administration Budesonide 2 puff 12/31/20 20:00 03/02/21 20:27 Budesonide 180 Mcg Aer.Pow.Ba INHALE 2 puff RBID DOMINICK Administration Clotrimazole 1 appl 01/06/21 21:00 03/02/21 20:32 Clotrimazole 1 % Cream 15 Gm Tube TOPICAL Not Given BID [facility] Protocol Famotidine 20 mg 01/09/21 09:00 03/02/21 08:13 Famotidine 20 Mg Tablet G-TUBE 20 mg DAILY [facility]IN[facility] Administration Fluoxetine HCl 7.5 mg 02/25/21 09:00 03/02/21 08:13 Fluoxetine Hcl Oral Solution 20 Mg/5 Ml Solution PO 7.5 mg DAILY DOMINICK Administration Hydrocortisone 2.5 mg 01/23/21 19:00 03/02/21 17:16 Hydrocortisone 10 Mg Tablet PO 2.5 mg DAILY@1900 [facility]IN[facility] Administration Hydrocortisone 5 mg 01/23/21 13:00 03/02/21 13:10 Hydrocortisone 10 Mg Tablet PO 5 mg DAILY@1300 [facility] Administration Hydrocortisone 10 mg 01/28/21 08:00 03/02/21 17:16 Hydrocortisone 10 Mg Tablet PO 10 mg DAILY@0800 [facility] Administration Loperamide HCl 2 mg 02/18/21 21:30 03/02/21 17:16 Loperamide Hcl Oral Liquid 2 Mg/15 Ml Liquid G-TUBE 2 mg Q6H PRN Administration Diarrhea Lorazepam 0.5 mg 03/02/21 11:43 03/02/21 12:06 Lorazepam 0.5 Mg Tablet PO 0.5 mg Q6H PRN Administration Anxiety Mirtazapine 7.5 mg 01/14/21 21:00 03/02/21 21:29 Mirtazapine 7.5 Mg Tablet G-TUBE 7.5 mg BEDTIME [facility]INICK Administration Omeprazole 40 mg 01/08/21 16:30 03/02/21 17:16 Omeprazole 20 Mg/10 Ml Susp.Recon G-TUBE 40 mg BID@0630,1630 [facility] Administration Ondansetron HCl 4 mg 02/27/21 11:43 02/27/21 11:51 Ondansetron Odt 4 Mg Tab.Rapdis TRANSLINGU 4 mg BID PRN Administration Nausea and Vomiting Thiamine HCl 100 mg 01/09/21 09:00 03/02/21 08:13 Thiamine Hcl 100 Mg Tablet G-TUBE 100 mg DAILY [facility]INICK Administration Allergies Allergies Allergy/AdvReac Type Severity Reaction Status Date / Time Sulfa (Sulfonamide Allergy Unknown UNKNOWN Verified 12/01/20 09:47 Antibiotics) [SULFA (SULFONAMIDE ANTIBIOTICS)] zoster vaccine live Allergy Hives Verified 12/01/20 09:47 Assessment & Plan Assessment & Plan (1) Chronic respiratory failure: Qualifiers: Respiratory failure complication: hypoxia Qualified Code(s): J96.11 - Chronic respiratory failure with hypoxia Status: Acute Code(s): J96.10 - Chronic respiratory failure, unspecified whether with hypoxia or hypercapnia (2) Pulmonary fibrosis: Status: Acute Code(s): J84.10 - Pulmonary fibrosis, unspecified (3) Bronchiectasis: Status: Acute Code(s): J47.9 - Bronchiectasis, uncomplicated Assessment and Plan: Will plan a 6 minutes walk test to see address his oxygen needs with activity. The patient may be limited from a physical standpoint. Will try and see how much he can tolerate. Overnight oximetry on room air Continue Pulmicort inhaler twice a day Should have a short-acting beta agonist, albuterol available via nebulizer and also via inhaler. bipolar depression cont fluoxitine adderall monitor for si cont plan of care encourage increase walking discharge planning which is complicated Will need to coordinate respiratory medical follow-up psychiatric follow-up and PEG feedings rolling walker Greater than 50% of the session was spent on counseling and/or coordination of care Reason for contiued inpatient stay Substantial Risk for: inability to function and rapid decompensation
[2021-03-03 06:00] VITALS: BP 130/84; PULSE 76; RESP 18; TEMP 37; O2SAT 96
--- NOTE | 2021-03-03 08:21 | P.PNGI_ITS ---
Subjective Subjective Date of Service: 03/03/21 Critical Care Time (minutes): 0 Comment: no complaints of pain at g-tube site tolerating tube feeds Physical Exam Vital Signs: Vital Signs: Last Vital Signs Temp 98.6 F 03/03/21 06:00 Pulse 76 03/03/21 06:00 Resp 18 03/03/21 06:00 BP 130/84 03/03/21 06:00 Pulse Ox 96 03/03/21 06:00 Body Mass Index 18.2 Const: Other: comfortable GI: Other: g-tube site intact and in good position without any drainage abdomen is soft and non tender Objective Data Labs CBC & Chem 7: 02/25/21 06:35 02/25/21 06:35 Labs: Laboratory Results - last 24 hr 03/02/21 03/02/21 03/02/21 13:13 16:41 20:43 POC Glucose 135 H 145 H 153 H Progress Note: A&P Assessment and plan (1) Gastrojejunostomy tube status: Status: Acute Assessment and Plan: G-tube function is intact. Demonstrated to patient how to uncap tube with a piece of tissue or gauze. He was able to do this easily. 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 I am not aware of any other options that can be used to access the g-tube but will check with the equipment access services assistant that orders the PEG kits in the OR. Time Spent With Patient Time: Total time spent is greater than 50% in coordination of care (as documented) at patient's floor/unit and/or counseling patient: Time with patient: less than 15 minutes Procedures Date of Service Date of Service: 03/03/21 Quality Stroke Does the patient have a stroke diagnosis?: No VTE Prior VTE?: No VTE Risk Level:: Medical - low (not evaluated at this visit) VTE Device Contraindication: Procedure Contraindicated (not evaluated at this visit) VTE Drug Contraindication: Treatment Not Indicated (not evaulauted at this visit)
[2021-03-03] MEDS: Amphetamine Mixed Salts 10 MG TABLET 5 MG G-TUBE (08:27)
[2021-03-03] MEDS: Hydrocortisone 10 MG TABLET PO (08:28)
[2021-03-03] MEDS: Thiamine HCL 100 MG TABLET G-TUBE (08:28)
[2021-03-03 08:29] LABS: Glucose, Whole Blood 79 mg/dL (60-115)
[2021-03-03] MEDS: Famotidine 20 MG TABLET G-TUBE (08:29)
[2021-03-03] MEDS: FLUoxetine HCl Oral Solution 20 MG/5 ML SOLUTION 7.5 MG PO (08:29)
[2021-03-03] MEDS: Budesonide 180 MCG AER.POW.BA 2 PUFF INHALE (08:30)
--- NOTE | 2021-03-03 09:06 | P.DS_ITS ---
DS: Providers Provider Date of Service: 03/03/21 Date of admission: 12/31/20 15:36 Primary care physician: JED CA[facility] FEEDER Consults: 02/18/21 10:00 Consult to Wound Care Routine Consulting Provider: [facility] [place] [facility] [place] Reason for consultation: R HAND INJURY LACERATION TODAY IF POSSIBLE Has provider been notified: No 02/23/21 19:38 Consult to ENT Routine Consulting Provider: Marbin Park Reason for consultation: any additional rec regarding dysphagia etioplogy Has provider been notified: No 02/25/21 11:51 Consult to Pulmonology Routine Consulting Provider: Miles Webb Reason for consultation: pt returning home need recommendations Has provider been notified: No 02/25/21 16:16 Consult to Podiatry Routine Consulting Provider: Macie Mohamud Reason for consultation: POOR NAIL FOOT CARE /CONDITION Has provider been notified: No DS: Diagnosis Discharge Diagnosis (1) Gastrojejunostomy tube status: Status: Acute DS: Medications Discharge Medications Home Medications: Home Medications Medication Instructions Recorded Confirmed Latuda 1 tab PO DAILY 11/25/20 12/31/20 Ofev 150 mg PO BID 11/25/20 12/31/20 docusate sodium [Stool Softener] 1 cap PO BID PRN 11/25/20 12/31/20 lorazepam 1 tab PO BID PRN 11/25/20 12/31/20 mirtazapine 1 tab PO BEDTIME 11/25/20 12/31/20 ondansetron 1 tab PO Q8H PRN 11/25/20 12/31/20 quetiapine 37.5 mg PO BEDTIME 11/25/20 12/31/20 Previous Rx's Medication Instructions Recorded benzonatate [Tessalon Perles] 100 mg PO TID 4 Days #12 cap 12/04/20 dextromethorphan-guaifenesin 10 ml PO Q6H 7 Days #280 ml 12/04/20 famotidine 20 mg PO DAILY #30 tab 12/04/20 benzocaine-menthol [Cepacol Sore 1 haris MUCOUS MEMBRANE Q2H PRN #20 12/31/20 Throat (brenda-men)] ea brexpiprazole [Rexulti] 1.5 mg PO DAILY #1 tab 12/31/20 budesonide [Pulmicort Flexhaler] 2 inh INHALATION RBID #1 ea 12/31/20 dexamethasone 2 mg PO DAILY #1 tab 12/31/20 ipratropium-albuterol 3 ml INHALATION Q4H PRN #1 ml 12/31/20 omeprazole 40 mg PO DAILY@0630 #1 cap 12/31/20 quetiapine 12.5 mg PO BEDTIME #1 tab 12/31/20 thiamine mononitrate (vit B1) 100 mg PO DAILY #1 tab 12/31/20 walker [Ultra-Light Rollator] #1 ea 03/02/21 Discharge Plan Discharge Patient Disposition: Home, Self-Care Discharge Diagnosis: bipolar 1 depression pulm fibrosis swallowing dysfunction gait disturbance weakness Referrals: [facility]: Ele Cali [Other] - 1 Week (Will start within 24-72 hours of discharge) Blane Chowdhury MD [Physician] - 03/19/21 1:00 pm (Telehealth appointment) Jed Cast NP [Nurse Practitioner] - 03/08/21 1:00 am (Folllow up appt. (in person)) Discharge Medications: New (DME) Ultra-Light Rollator Misc See Rx Instructions .ROUTE .MEDSUPPLY Qty: 1 RF: 0 dextroamphetamine-amphetamine 10 mg Tablet 5 mg G-tube BID@0800,1300 30 Days Qty: 60 RF: 0 mirtazapine 7.5 mg Tablet 7.5 mg G-tube BEDTIME 30 Days Qty: 30 RF: 2 famotidine 20 mg Tablet 20 mg G-tube DAILY 30 Days Qty: 30 RF: 0 loperamide [Imodium A-D] 1 mg/7.5 mL Liquid 2 mg G-tube Q6H MDD 6 mg PRN (Reason: Diarrhea) Qty: 120 RF: 0 ondansetron 4 mg Tablet,Disintegrating 4 mg translingual BID PRN (Reason: Nausea And Vomiting) 30 Days Qty: 60 RF: 0 hydrocortisone [Cortef] 5 mg tablet 5 mg PO . DIRECTED Qty: 120 RF: 0 fluoxetine 20 mg/5 mL (4 mg/mL) Solution 7.5 mg PO DAILY 30 Days Qty: 56.25 RF: 0 clotrimazole 1 % Cream 1 appl topical BID 30 Days Qty: 30 RF: 0 thiamine mononitrate (vit B1) 100 mg Tablet 100 mg G-tube DAILY Qty: 30 RF: 0 Omeprazole Oral Susp [Prilosec Oral Susp] 40 mg G-tube BID@0630,1630 60 Days Qty: 100 RF: 0 levalbuterol tartrate 45 mcg/actuation HFA aerosol inhaler 2 puff inhalation Q4-6H PRN (Reason: shortness of breath) Qty: 15 RF: 3 Continued lorazepam 0.5 mg tablet 1 tab PO BID PRN (Reason: anxiety) 30 Days Qty: 60 RF: 2 docusate sodium [Stool Softener] 100 mg capsule 1 cap PO BID PRN (Reason: constipation) RF: 0 ondansetron 4 mg tablet,disintegrating 1 tab PO Q8H PRN (Reason: nausea/vomiting) RF: 0 Ofev 150 mg capsule 150 mg PO BID RF: 0 ipratropium-albuterol 0.5 mg-3 mg(2.5 mg base)/3 mL Solution For Nebulization 3 ml inhalation Q4H PRN (Reason: sob) Qty: 1 RF: 0 Discontinued quetiapine 25 mg tablet 37.5 mg PO BEDTIME RF: 0 mirtazapine 15 mg tablet 1 tab PO BEDTIME RF: 0 Latuda 20 mg tablet 1 tab PO DAILY RF: 0 dextromethorphan-guaifenesin 10-100 mg/5 mL Syrup 10 ml PO Q6H 7 Days Qty: 280 RF: 0 famotidine 20 mg Tablet 20 mg PO DAILY Qty: 30 RF: 0 benzonatate [Tessalon Perles] 100 mg capsule 100 mg PO TID 4 Days Qty: 12 RF: 0 quetiapine 25 mg Tablet 12.5 mg PO BEDTIME Qty: 1 RF: 0 Rexulti 1 mg Tablet 1.5 mg PO DAILY Qty: 1 RF: 0 omeprazole 40 mg Capsule,Delayed Release(Dr/Ec) 40 mg PO DAILY@0630 Qty: 1 RF: 0 dexamethasone 2 mg Tablet 2 mg PO DAILY Qty: 1 RF: 0 Pulmicort Flexhaler 180 mcg/actuation Aerosol Powdr Breath Activated 2 inh inhalation RBID Qty: 1 RF: 0 Cepacol Sore Throat (brenda-men) 15-3.6 mg Lozenge 1 haris mucous membrane Q2H PRN (Reason: Sore Throat) Qty: 20 RF: 0 thiamine mononitrate (vit B1) 100 mg Tablet 100 mg PO DAILY Qty: 1 RF: 0 Discharge Orders: Discharge Order (Routine); Ordered 03/03/21 Ordered By: Blane Chowdhury Diet: other Activity on Discharge: Use cane or walker Stand Alone Forms: Patient Portal Discharge page, Community Support Activity Restrictions/Additional Instructions: NEXT ECT MARCH 26 Care Plan Goals: maintain improved mood peg feedings maintain nutrition improve /stabilize pulm function Health Concerns: steroid dysfx / addissons pulm fibrosis bipolar depression gait disturbance Plan of Treatment: psychiatry vna ect pulmnonary endocrinology f/u peg feedings Assessment: mood improved has swallowing disorder decreased pulnm fx gait disturbance Patient Instructions: How to Use and Care for Your PEG Tube (DC), Aspiration Pneumonia (DC) Discharge Date/Time: 03/03/21 13:37 Mental Status Exam Mental Status Exam Patient Appearance: Well Grooomed Patient Orientation: Person, Place and Time Level of Consciousness: Awake Patient Behavior: Cooperative Mood Description: Flat and Apprehensive Affect Description: Constricted Patient Cognition Impaired: No Ability to Follow Directions: Good Speech Pattern: Clear Memory Description: Intact and Episodic Impaired Hallucinations: None Delusions: Not Present Thought Process: Goal Oriented, Linear and Slowed Thinking Thought Content: positive for Circumstantial and positive for Poverty of Content Depressive Symptoms: Increased Anxiety, Significant Weight Loss, Increased Fatigue and Loss of Energy Judgement: Good Data Data Completed and Pending Completed studies during hospitalization [Text1]: 02/24/21 02/24/21 02/24/21 11:34 18:16 20:42 WBC RBC Hgb Hct MCV MCH MCHC RDW Plt Count MPV Immature Gran % (Auto) Neut % (Auto) Lymph % (Auto) Holt % (Auto) Eos % (Auto) Baso % (Auto) Lymph # (Auto) Holt # (Auto) Eos # (Auto) Baso # (Auto) Abs Immat Gran (auto) Absolute Neuts (auto) Absolute Nucleated RBC Nucleated RBC % (auto) Sodium Potassium Chloride Carbon Dioxide Anion Gap BUN Creatinine Estim Creat Clear Calc Estimated GFR POC Glucose 134 H 133 H 117 H Fasting Glucose Estimat Average Glucose Hemoglobin A1c % Calcium Total Bilirubin AST ALT Alkaline Phosphatase Total Protein Albumin 02/25/21 02/25/21 02/25/21 06:05 06:35 06:35 WBC 9.8 RBC 3.34 L Hgb 10.8 L Hct 32.6 L MCV 97.6 MCH 32.3 MCHC 33.1 RDW 15.1 Plt Count 206 D MPV 12.1 Immature Gran % (Auto) 0.5 H Neut % (Auto) 50.4 Lymph % (Auto) 33.7 Holt % (Auto) 9.9 Eos % (Auto) 4.7 H Baso % (Auto) 0.8 Lymph # (Auto) 3.3 Holt # (Auto) 1.0 Eos # (Auto) 0.5 H Baso # (Auto) 0.1 Abs Immat Gran (auto) 0.05 H Absolute Neuts (auto) 4.9 Absolute Nucleated RBC 0.000 Nucleated RBC % (auto) 0.0 Sodium 135 Potassium 4.8 Chloride 98 Carbon Dioxide 35 H Anion Gap 7 L BUN 23 H Creatinine 0.82 Estim Creat Clear Calc 52.4 Estimated GFR > 60 POC Glucose 75 Fasting Glucose 89 Estimat Average Glucose Hemoglobin A1c % Calcium 9.1 Total Bilirubin < 0.2 AST 26 ALT 34 Alkaline Phosphatase 110 D Total Protein 6.3 L Albumin 3.0 L 02/25/21 02/25/21 02/25/21 06:35 12:23 17:24 WBC RBC Hgb Hct MCV MCH MCHC RDW Plt Count MPV Immature Gran % (Auto) Neut % (Auto) Lymph % (Auto) Holt % (Auto) Eos % (Auto) Baso % (Auto) Lymph # (Auto) Holt # (Auto) Eos # (Auto) Baso # (Auto) Abs Immat Gran (auto) Absolute Neuts (auto) Absolute Nucleated RBC Nucleated RBC % (auto) Sodium Potassium Chloride Carbon Dioxide Anion Gap BUN Creatinine Estim Creat Clear Calc Estimated GFR POC Glucose 102 132 H Fasting Glucose Estimat Average Glucose 111 Hemoglobin A1c % 5.5 Calcium Total Bilirubin AST ALT Alkaline Phosphatase Total Protein Albumin 02/25/21 02/26/21 02/26/21 20:35 08:57 12:06 WBC RBC Hgb Hct MCV MCH MCHC RDW Plt Count MPV Immature Gran % (Auto) Neut % (Auto) Lymph % (Auto) Holt % (Auto) Eos % (Auto) Baso % (Auto) Lymph # (Auto) Holt # (Auto) Eos # (Auto) Baso # (Auto) Abs Immat Gran (auto) Absolute Neuts (auto) Absolute Nucleated RBC Nucleated RBC % (auto) Sodium Potassium Chloride Carbon Dioxide Anion Gap BUN Creatinine Estim Creat Clear Calc Estimated GFR POC Glucose 93 79 132 H Fasting Glucose Estimat Average Glucose Hemoglobin A1c % Calcium Total Bilirubin AST ALT Alkaline Phosphatase Total Protein Albumin 02/26/21 02/27/21 02/27/21 16:40 06:25 11:36 WBC RBC Hgb Hct MCV MCH MCHC RDW Plt Count MPV Immature Gran % (Auto) Neut % (Auto) Lymph % (Auto) Holt % (Auto) Eos % (Auto) Baso % (Auto) Lymph # (Auto) Holt # (Auto) Eos # (Auto) Baso # (Auto) Abs Immat Gran (auto) Absolute Neuts (auto) Absolute Nucleated RBC Nucleated RBC % (auto) Sodium Potassium Chloride Carbon Dioxide Anion Gap BUN Creatinine Estim Creat Clear Calc Estimated GFR POC Glucose 93 86 155 H Fasting Glucose Estimat Average Glucose Hemoglobin A1c % Calcium Total Bilirubin AST ALT Alkaline Phosphatase Total Protein Albumin 02/27/21 02/27/21 02/28/21 17:38 22:44 07:50 WBC RBC Hgb Hct MCV MCH MCHC RDW Plt Count MPV Immature Gran % (Auto) Neut % (Auto) Lymph % (Auto) Holt % (Auto) Eos % (Auto) Baso % (Auto) Lymph # (Auto) Holt # (Auto) Eos # (Auto) Baso # (Auto) Abs Immat Gran (auto) Absolute Neuts (auto) Absolute Nucleated RBC Nucleated RBC % (auto) Sodium Potassium Chloride Carbon Dioxide Anion Gap BUN Creatinine Estim Creat Clear Calc Estimated GFR POC Glucose 151 H 130 H 85 Fasting Glucose Estimat Average Glucose Hemoglobin A1c % Calcium Total Bilirubin AST ALT Alkaline Phosphatase Total Protein Albumin 02/28/21 02/28/21 02/28/21 11:27 16:43 22:12 WBC RBC Hgb Hct MCV MCH MCHC RDW Plt Count MPV Immature Gran % (Auto) Neut % (Auto) Lymph % (Auto) Holt % (Auto) Eos % (Auto) Baso % (Auto) Lymph # (Auto) Holt # (Auto) Eos # (Auto) Baso # (Auto) Abs Immat Gran (auto) Absolute Neuts (auto) Absolute Nucleated RBC Nucleated RBC % (auto) Sodium Potassium Chloride Carbon Dioxide Anion Gap BUN Creatinine Estim Creat Clear Calc Estimated GFR POC Glucose 136 H 126 H 160 H Fasting Glucose Estimat Average Glucose Hemoglobin A1c % Calcium Total Bilirubin AST ALT Alkaline Phosphatase Total Protein Albumin 03/01/21 03/02/21 03/02/21 05:59 06:34 13:13 WBC RBC Hgb Hct MCV MCH MCHC RDW Plt Count MPV Immature Gran % (Auto) Neut % (Auto) Lymph % (Auto) Holt % (Auto) Eos % (Auto) Baso % (Auto) Lymph # (Auto) Holt # (Auto) Eos # (Auto) Baso # (Auto) Abs Immat Gran (auto) Absolute Neuts (auto) Absolute Nucleated RBC Nucleated RBC % (auto) Sodium Potassium Chloride Carbon Dioxide Anion Gap BUN Creatinine Estim Creat Clear Calc Estimated GFR POC Glucose 91 110 135 H Fasting Glucose Estimat Average Glucose Hemoglobin A1c % Calcium Total Bilirubin AST ALT Alkaline Phosphatase Total Protein Albumin 03/02/21 03/02/21 03/03/21 16:41 20:43 08:22 WBC RBC Hgb Hct MCV MCH MCHC RDW Plt Count MPV Immature Gran % (Auto) Neut % (Auto) Lymph % (Auto) Holt % (Auto) Eos % (Auto) Baso % (Auto) Lymph # (Auto) Holt # (Auto) Eos # (Auto) Baso # (Auto) Abs Immat Gran (auto) Absolute Neuts (auto) Absolute Nucleated RBC Nucleated RBC % (auto) Sodium Potassium Chloride Carbon Dioxide Anion Gap BUN Creatinine Estim Creat Clear Calc Estimated GFR POC Glucose 145 H 153 H 79 Fasting Glucose Estimat Average Glucose Hemoglobin A1c % Calcium Total Bilirubin AST ALT Alkaline Phosphatase Total Protein Albumin 01/10/21 09:26 Blood - Venous Blood Culture - Final No growth after 5 days. 01/10/21 09:26 Blood - Venous Blood Culture - Final No growth after 5 days. Imaging Diagnostic Imaging Impressions Modified Barium Swallow 01/07/21 14:15 IMPRESSION: Laryngeal penetration and occasional aspiration as described above. Please refer to speech pathology report for details. Chest X-Ray 01/10/21 09:11 IMPRESSION: Severe chronic interstitial lung disease. No evidence of acute superimposed pneumonitis. Modified Barium Swallow 02/10/21 12:56 IMPRESSION: Vallecular retention with laryngeal penetration. 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 No CT evidence of intracranial bleed. No skull fracture. Normal CT scan does not rule out the possibility of hyperacute infarct in the first 12 hours. If patient symptoms persist may consider correlation with MRI, which is more sensitive for early acute infarct. 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 He is failed multiple treatments including Lamictal Vraylar mirtazapine Wellbutrin became suicidally agitated Depakote Seroquel and Trintellix which cause severe nausea and lack of interest in food. Patient has become increasingly despondent difficulty getting out of bed taking care of his ADLs he was scheduled for outpatient ECT but was unable to get up the energy to do it. He has been having thoughts that he would be better off this is been going on for an extended period of time Past Psychiatric History: History of 3 prior psychiatric hospitalizations the last at [facility] he did have a course of ECT and briefly did maintenance. ECT was quite helpful but the patient had difficulty with side effects of nausea and headache. He has also failed a trial of ketamine Medical Evaluation Reviewed: Hospitalist Criselda Pending Patient with history of pulmonary fibrosis generally stable history of bladder cancer treated with infusions [facility] Medical History (Updated 11/29/20 @ 16:48 by Blane Chowdhury MD) Anemia Anxiety Bronchiectasis Cerebrovascular disease CHF (congestive heart failure) Chronic hyponatremia CKD (chronic kidney disease) stage 3, GFR 30-59 ml/min Degenerative arthritis Depression History of electroconvulsive therapy Hx of bladder cancer Hydrocele Pulmonary fibrosis Pulmonary fibrosis Surgical History History of bladder surgery Family History: Reportedly no history of bipolar disorder Social History: Patient is has children with whom he is close with 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 Substance History: None Trauma History: Trauma of being increasingly isolated and not responding to treatment over the past year Diagnostics Vital Signs (24Hr):Vital Signs - 24 hr 11/25/20 18:27 11/25/20 21:16 11/26/20 06:05 Temperature 98.4 F 97.7 F 97.7 F Pulse Rate 71 71 72 Respiratory Rate 16 17 18 Blood Pressure 106/61 124/71 118/67 Pulse Oximetry 95 97 94 11/26/20 13:00 Temperature 96.7 F L Pulse Rate 91 Respiratory Rate Blood Pressure 106/59 L Pulse Oximetry Body Mass Index 19.8 Labs Results: 11/28/20 14:38 document embedded image 11/28/20 14:38 document embedded image Labs:Laboratory Results - last 48 hr 11/25/20 11/25/20 11/25/20 15:35 15:42 15:42 WBC RBC Hgb Hct MCV MCH MCHC RDW Plt Count MPV Immature Gran % (Auto) Neut % (Auto) Lymph % (Auto) Holt % (Auto) Eos % (Auto) Baso % (Auto) Lymph # (Auto) Holt # (Auto) Eos # (Auto) Baso # (Auto) Abs Immat Gran (auto) Absolute Neuts (auto) Absolute Nucleated RBC Nucleated RBC % (auto) Sodium 133 L Potassium 5.3 H Chloride 99 Carbon Dioxide 26 Anion Gap 13 BUN 29 H Creatinine 1.38 Estim Creat Clear Calc 36.2 Estimated GFR 50 Random Glucose 103 Fasting Glucose Calcium 9.4 Total Bilirubin 0.6 Direct Bilirubin 0.2 AST 24 ALT 16 Alkaline Phosphatase 91 Total Protein 7.5 Albumin 3.8 Triglycerides Cholesterol LDL Cholesterol, Calc HDL Cholesterol Vitamin B12 TSH Urine Color YELLOW Urine Appearance CLEAR Urine pH 6.0 Ur Specific Arg[place] 1.025 Urine Protein NEG Urine Glucose (UA) NEG Urine Ketones NEG Urine Blood NEG Urine Nitrite NEG Ur Leukocyte Esterase NEG Ethyl Alcohol < 10 COVID-19 ([facility]) COVID-19 Clin Com 11/25/20 11/25/20 11/26/20 15:43 16:37 07:42 WBC 9.1 RBC 4.13 L Hgb 13.1 L Hct 39.0 L MCV 94.4 MCH 31.7 MCHC 33.6 RDW 13.9 Plt Count 211 MPV 11.0 Immature Gran % (Auto) 0.3 Neut % (Auto) 56.1 Lymph % (Auto) 30.1 Holt % (Auto) 9.1 Eos % (Auto) 3.6 Baso % (Auto) 0.8 Lymph # (Auto) 2.7 Holt # (Auto) 0.8 Eos # (Auto) 0.3 Baso # (Auto) 0.1 Abs Immat Gran (auto) 0.03 Absolute Neuts (auto) 5.1 Absolute Nucleated RBC 0.000 Nucleated RBC % (auto) 0.0 Sodium 133 L Potassium 5.1 Chloride 98 Carbon Dioxide 29 Anion Gap 11 L BUN 29 H Creatinine 1.50 H Estim Creat Clear Calc 33.3 Estimated GFR 45 Random Glucose Fasting Glucose 100 H Calcium 9.5 Total Bilirubin 0.9 Direct Bilirubin AST 22 ALT 17 Alkaline Phosphatase 95 Total Protein 7.5 Albumin 3.9 Triglycerides 87 Cholesterol 216 LDL Cholesterol, Calc 148 HDL Cholesterol 51 Vitamin B12 TSH 2.21 Urine Color Urine Appearance Urine pH Ur Specific Argyle Urine Protein Urine Glucose (UA) Urine Ketones Urine Blood Urine Nitrite Ur Leukocyte Esterase Ethyl Alcohol COVID-19 ([facility]) Negative COVID-19 [facility] Com See Note 11/26/20 07:42 WBC RBC Hgb Hct MCV MCH MCHC RDW Plt Count MPV Immature Gran % (Auto) Neut % (Auto) Lymph % (Auto) Holt % (Auto) Eos % (Auto) Baso % (Auto) Lymph # (Auto) Holt # (Auto) Eos # (Auto) Baso # (Auto) Abs Immat Gran (auto) Absolute Neuts (auto) Absolute Nucleated RBC Nucleated RBC % (auto) Sodium Potassium Chloride Carbon Dioxide Anion Gap BUN Creatinine Estim Creat Clear Calc Estimated GFR Random Glucose Fasting Glucose Calcium Total Bilirubin Direct Bilirubin AST ALT Alkaline Phosphatase Total Protein Albumin Triglycerides Cholesterol LDL Cholesterol, Calc HDL Cholesterol Vitamin B12 773 TSH Urine Color Urine Appearance Urine pH Ur Specific [place]yle Urine Protein Urine Glucose (UA) Urine Ketones Urine Blood Urine Nitrite Ur Leukocyte Esterase Ethyl Alcohol COVID-19 ([facility]) COVID-19 [facility] Com Meds/Allergies Meds Home Medications Acetaminophen (Acetaminophen 325 Mg Tablet) 650 mg PO Q6H PRN PRN Reason: Headache/Pain Mild Scale (1-3) Last Admin: 11/29/20 15:51 Dose: 650 mg Documented by: Al Hydroxide/Mg Hydroxide (Magnesium Hydrox/Alum Hydrox 30 Ml Oral.Susp) 30 ml PO Q6H PRN PRN Reason: Heartburn/Nausea Last Admin: 11/28/20 09:26 Dose: 30 ml Documented by: Docusate Sodium (Docusate Sodium 100 Mg Capsule) 100 mg PO BID COUNT INCLUDES THE [facility] Last Admin: 11/29/20 08:52 Dose: 100 mg Documented by: Famotidine (Famotidine 20 Mg Tablet) 20 mg PO BID COUNT INCLUDES THE [facility] Last Admin: 11/29/20 08:52 Dose: 20 mg Documented by: Hydroxyzine HCl (Hydroxyzine Hcl 25 Mg Tablet) 25 mg PO BEDTIME PRN PRN Reason: Anxiety Promethazine HCl 6.25 mg/ (Sodium Chloride) 50.25 mls @ 201 mls/hr IV ONCE PRN PRN Reason: Nausea and Vomiting Lorazepam (Lorazepam 0.5 Mg Tablet) 0.5 mg PO BEDTIME COUNT INCLUDES THE [facility] Last Admin: 11/28/20 21:27 Dose: 0.5 mg Documented by: Lorazepam (Lorazepam 0.5 Mg Tablet) 0.5 mg PO DAILY PRN PRN Reason: Anxiety Last Admin: 11/27/20 16:42 Dose: 0.5 mg Documented by: Lurasidone HCl (Lurasidone Hcl 20 Mg Tablet) 10 mg PO DAILY COUNT INCLUDES THE [facility] Last Admin: 11/29/20 08:52 Dose: 10 mg Documented by: Magnesium Hydroxide (Milk Of Magnesia 30 Ml Oral.Susp) 30 ml PO DAILY PRN PRN Reason: Constipation Mirtazapine (Mirtazapine 15 Mg Tablet) 15 mg PO BEDTIME COUNT INCLUDES THE [facility] Last Admin: 11/28/20 21:25 Dose: 15 mg Documented by: Pt Own Med: Nintedanib (Ofev) 150mg Cap 1 each PO Q12H COUNT INCLUDES THE [facility] Last Admin: 11/29/20 08:54 Dose: 1 each Documented by: Ondansetron HCl (Ondansetron Odt 4 Mg Tab.Rapdis) 4 mg TRANSLINGU Q8H PRN PRN Reason: nausea/vomiting Last Admin: 11/27/20 13:36 Dose: 4 mg Documented by: Quetiapine Fumarate (Quetiapine Fumarate 25 Mg Tablet) 37.5 mg PO BEDTIME COUNT INCLUDES THE [facility] Last Admin: 11/28/20 21:25 Dose: 37.5 mg Documented by: Quetiapine Fumarate (Quetiapine Fumarate 25 Mg Tablet) 12.5 mg PO BID COUNT INCLUDES THE [facility] Last Admin: 11/29/20 08:53 Dose: 12.5 mg Documented by: Allergies Allergies Allergy/AdvReac Type Severity Reaction Status Date / Time Sulfa (Sulfonamide Allergy Unknown UNKNOWN Unverified 05/28/20 19:34 Antibiotics) [SULFA (SULFONAMIDE ANTIBIOTICS)] zoster vaccine live Allergy Hives Verified 11/27/20 18:20 Mental Status Exam Mental Status Exam Patient Appearance: Disheveled Patient Orientation: Person, Place and Situation Level of Consciousness: Awake Patient Behavior: Appropriate, Cooperative and Passive Mood Description: Withdrawn and Depressed Affect Description: Depressed and Blunted Speech Pattern: Clear and Monotone Memory Description: Episodic Impaired Delusions: Not Present Thought Process: Rumination and Goal Oriented Thought Content: positive for [place], positive for Suicidal Ideation (Passive SI feels connected to family and but essentially nothing to live for) and negative for Homicidal Ideation Depressive Symptoms: Increased Anxiety, Diff. Making Decisions, Significant Weight Loss, Hopelessness, Thoughts of /Suicide, Loss of Energy and Difficulty Concentrating Assessment & Plan Assessment & Plan (1) Bipolar I disorder with depression, severe: Status: Acute Code(s): F31.4 - Bipolar disorder, current episode depressed, severe, without psychotic features Assessment and Plan: Patient admitted for course of ECT for treatment resistant depression with life- threatening lack of functioning eating despondent hopeless helpless he has responded to course of ECT previously risks benefits and alternatives reviewed with patient and his medical evaluation pre ECT he was recently determined by his outpatient turns to be stable for treatment despite pulmonary fibrosis concerns (2) Pulmonary fibrosis: Status: Acute Code(s): J84.10 - Pulmonary fibrosis, unspecified Patient educated on: diagnosis, medication risk/benefits and ECT Informed Consent: understands Reason for continued inpatient stay Substantial Risk for: harm to self, inability to function, rapid decompensation and med/psych decompensation HOSPITAL COURSE THE patient was originally admitted to the psychiatric unit secondary to severe depression treatment resistant having failed multiple medication trials mood stabilizing agents antidepressants Latuda and Vraylar for bipolar depression. The patient also suffers from pulmonary fibrosis. the patient was treated with total of 11 ECT treatments from November through February 19. Eventually being discharged on March 03. Patient was transferred from the psychiatric unit to the medical floor on 2 occasions. On 1 occasion the patient became hypotensive hours after an ECT treatment on another there were periods of hypoxia. The hospitalist service, pulmonology and Nephrology were actively involved in his care. initially it was thought that perhaps the patient had had aspiration during or post ECT eventually the patient had a swallowing evaluation and it became clear that he was having dysphagia with aspiration that eventually led to a PEG tube feeding placement being placed. The reason for the dysphagia was never quite clear some thought was that perhaps it related to what was thought to be a steroid deficiency which may have also related to episodes of hypotension. Eventually the patient was placed on regular steroid to t.i.d. which did seem to help with mood and blood pressure with recommendations to follow up with endocrinology. It was also eventually clear during the patient's stay that he required oxygen with exertion which was a change reportedly from pre-admission. What was clear is that the patient was at despondent lethargic minimally interactive on admission and by the time of discharge had a somewhat mehta range of affect was engaged able to play cards and could have more of a conversation and was less anhedonic. Both he and his had felt that ECT was helpful and the patient did tolerate ECT without difficulty 1 steroids were started and PEG tube feedings were initiated Patient's electrolytes were unremarkable on February 25 fasting blood sugar 89 a hemoglobin A1c 5.5 CBC showed a decreased hematocrit of 32 higher percentage of eosinophils at 4% hematocrit was stable patient showed a decrease response to the ACTH stimulation test at both 30 minutes and 60 minutes. The patient did have a few pulmonary consult during his hospitalization the last date of service was February [address] Domingo. Patient was using a Pulmicort inhaler at rest he did not require oxygen he was afebrile pulse of 80 respirations 18 blood pressure 136/74 pulse ox was 93 recommended continuing Pulmicort inhaler and having a beta agonist available the inhaler and nebulizer diagnosis was chronic respiratory failure pulmonary fibrosis bronchiectasis psychiatrically the patient eventually responded to a combination of low-dose fluoxetine low-dose Adderall he was not on a mood stabilizing agent there was no evidence of cycling he did have lorazepam p.r.n.. The patient did require assistance with dressing ambulation and oxygen while ambulating. We had tried to refer the patient to inpatient rehab therapy for dysphagia with a muscle stimulating system but we were unable to complete this referral. Eventually the patient was psychiatrically stable enough future oriented come at the patient's and family felt they could care for him at home with VNA and including home physical therapy. Would recommend consideration pulmonary / respiratory rehab perhaps a [facility] consideration will be given to maintenance ECT which did seem to be the main treatment that helped the patient get out of his he greater than 1 year depression however this was obviously complicated by his medical status patient was referred back to Internal Medicine pulmonary and to his outpatient psychiatrist Dr. Chowdhury this chief underwriter Time Spent with Patient Time attestation: Total time spent providing and/or coordinating discharge services: Time spent: Greater than 30 minutes
--- NOTE | 2021-03-03 09:41 | MHC.CLN ---
FOLLOW UP IN PREPARATION FOR DISCHARGE TO HOME, HOME ENTERAL PRESCRIBER ORDER FORM FOR [facility] PROVIDED TO NURSING WITH TUBE FEED/FREE WATER FLUSH ORDER.
[2021-03-03] MEDS: Hydrocortisone 10 MG TABLET 5 MG PO (12:36)
[2021-03-03 13:18] LABS: Glucose, Whole Blood 95 mg/dL (60-115)
== END 2021-03-03 13:37 | disposition home or self-care (01) | DRG 885 ==
LOC: HO.PM5 02-09 12:17 → HO.PGERI 02-09 18:12
PROVIDERS: Internal Medicine; Internal Medicine Gastroenterology; Internal Medicine Hypertension Specialist; Psychiatry & Neurology Psychiatry; Admitting Provider Psychiatry & Neurology Psychiatry; Visit Provider Psychiatry & Neurology Psychiatry
PROC: GZB4ZZZ Other Electroconvulsive Therapy (ICD-10-PCS; CPT 90870; principal; 2021-01-06 08:00)
PROC: 0DJ08ZZ Inspection of Upper Intestinal Tract, Via Natural or Artificial Opening Endoscopic (ICD-10-PCS; CPT 43235; principal; 2021-01-08 11:40)
PROC: 0DH63UZ Insertion of Feeding Device into Stomach, Percutaneous Approach (ICD-10-PCS; CPT 43246; 2021-01-08 11:40)
PROC: (CPT 90870; principal; 2021-01-27 08:00)
DX: F31.4 Bipolar disorder, current episode depressed, severe, without psychotic features (principal); G93.41 Metabolic encephalopathy; E43 Unspecified severe protein-calorie malnutrition; E87.1 Hypo-osmolality and hyponatremia; B37.0 Candidal stomatitis; J96.11 Chronic respiratory failure with hypoxia; Z68.1 Body mass index [BMI] 19.9 or less, adult; E27.40 Unspecified adrenocortical insufficiency; N18.30 Chronic kidney disease, stage 3 unspecified; D63.1 Anemia in chronic kidney disease; F41.9 Anxiety disorder, unspecified; R13.10 Dysphagia, unspecified; J84.10 Pulmonary fibrosis, unspecified; J47.9 Bronchiectasis, uncomplicated; S61.411A Laceration without foreign body of right hand, initial encounter; X58.XXXA Exposure to other specified factors, initial encounter; Y92.239 Unspecified place in hospital as the place of occurrence of the external cause; Z88.2 Allergy status to sulfonamides; Z79.899 Other long term (current) drug therapy
CPT/HCPCS: 36415; 36600; 70450; 71045; 74230; 80048; 80051; 80053; 82533; 82947; 83036; 83735; 84100; 84484; 85025; 85027; 85379; 85610; 87040; 90870; 92611; 93005; 94640; 94664; 97110; 97116; 97162; 97530; J0330; J0690; J0834; J1885; J2060; J2250; J2405; J3010; J3430; J8540